=== PATIENT | male | born 1975 | race Caucasian/White ===

== ENCOUNTER 2021-02-09 02:06 | Inpatient (IN) | payer MEDICARE, MEDICAID, SELFPAY ==
[2021-02-09] VITALS (32 sets, daily range): BP systolic 95–178; BP diastolic 41–96; PULSE 39–87; RESP 8–18; TEMP 36–39.9; O2SAT 90–97; BMI 31.1
--- NOTE | ~2021-02-09 | CT_ITS ---
EXAMINATION: CT CHEST WITHOUT CONTRAST CLINICAL INFORMATION: Pneumonia. HIV. COMPARISON: None TECHNIQUE: Multidetector volumetric CT imaging of the chest was done. Axial MIP volume rendering provided. Sagittal and coronal reformatted images were obtained. Evaluation of lung parenchyma is limited due to respiratory motion artifact. This CT examination was performed using dose optimization techniques as appropriate, variously including the following: *Automated exposure control *Adjustment of mA and/or kV according to patient size (this includes techniques or standardized protocols for targeted exams where dose is matched to indication/reason for exam; i.e. extremities or head) *Use of iterative reconstruction technique DLP: 600 mGy-cm FINDINGS: The heart is normal in size. There is no pericardial effusion. Nonaneurysmal thoracic aorta. A few normal-sized mediastinal lymph nodes are noted. No enlarged axillary lymph nodes. Bilateral gynecomastia. Central airways are patent. Filling defects within the right lower lobe segmental bronchi are nonspecific but statistically mucus plugging. There are mild emphysematous changes of the lungs. Dependent patchy opacities are present bilaterally, slightly more prominent on the right. No gross lobar consolidation. No pleural effusion or pneumothorax. No suspicious pulmonary mass. Visualized portion of the upper abdomen demonstrate diffusely decreased liver attenuation suggesting hepatic steatosis. The spleen is enlarged measuring 17 cm in maximum AP dimension. No acute osseous abnormality. CT/CT chest wo con IMPRESSION: 1. Dependent bilateral patchy opacities. Infiltrate is suspected. Clinical correlation recommended. 2. Mild emphysema. 3. Diffusely decreased liver attenuation suggesting hepatic steatosis. Correlation with liver enzymes recommended. 4. Splenomegaly.
--- NOTE | ~2021-02-09 | XR_ITS ---
EXAMINATION: XR ABDOMEN KUB CLINICAL INDICATION: Rectal foreign body questioned COMPARISON: None TECHNIQUE: AP view of the abdomen. FINDINGS: The bowel gas pattern is normal with no evidence of ileus or obstruction. No unusual soft tissue calcifications are noted. The bones are unremarkable. XR/XR KUB IMPRESSION: No radiopaque foreign body or ectopic air grossly. If nonopaque foreign body suspected consider CT.
--- NOTE | ~2021-02-09 | XR_ITS ---
EXAMINATION: XR CHEST CLINICAL INFORMATION: Fever, HIV positive COMPARISON: None TECHNIQUE: Frontal view of the chest was obtained. FINDINGS: Lungs are hypoinflated. No focal consolidation is seen. No evidence of pneumothorax, pleural effusion, or pulmonary edema. No acute osseous findings are seen. XR/XR chest 1V IMPRESSION: No acute cardiopulmonary findings.
--- NOTE | 2021-02-09 02:46 | ED_ITS ---
HPI - Psych General Chief Complaint: Psychiatric Symptoms Stated Complaint: SI,HEROIN USE 3MIN PRIOR TO AMB CALL,FROM PD LOBBY Time Seen by Provider: 02/09/21 02:23 Source: patient Mode of arrival: EMS Limitations: no limitations History of Present Illness HPI Narrative: Patient comes to emergency room complaining of suicidal ideation. Patient states that he recently told his family that he is bisexual, the family was very upset, patient decided to try killing himself by overdosing. Patient walked into a police station, reports taking approximately 10 bags of heroin, and no known quantity of Klonopin. Patient did not get any Narcan in the field or on arrival to the emergency room. Patient is known to be HIV positive, states that he is compliant with his medications. MD complaint: suicidal ideation and feels depressed Related Data Allergies Allergy/AdvReac Type Severity Reaction Status Date / Time latex [LATEX] Allergy Unknown UNKNOWN Verified 02/09/21 03:06 From PERCOCET Allergy Unknown UNKNOWN Uncoded 02/09/21 03:06 Review of Systems Review of Systems: Constitutional : No Weight loss, No Fever, No Chills, No Night Sweats, No Fatigue, No Malaise ENT/Mouth : No Hearing loss, No Ear Pain, No Nasal Congestion, No Sinus Pain, No Hoarseness, No sore throat, No Rhinorrhea, No Swallowing Difficulty Eyes: No Eye Pain, No Swelling, No Redness, No Foreign Body, No Discharge, No Vision Changes Cardiovascular : No Chest Pain, No SOB, No Dyspnea on Exertion, No Orthopnea, No Edema, No Palpitations Respiratory : Mild Cough, No Sputum, No Wheezing, No Smoke Exposure, No Dyspnea, runny nose Gastrointestinal : No Nausea, No Vomiting, No Diarrhea, No Constipation, No abdominal Pain, No Hematochezia, No Melena Genitourinary : no irregular bleeding, patient complaining of, No Urinary Frequency, No Hematuria, No Urinary Incontinence, No Urgency, No Flank Pain, No Urinary Flow Changes, No Hesitancy Musculoskeletal : No joint pain, No Myalgias, No Joint Swelling Skin : No Skin Lesions, No rash Neuro : No Weakness, No Numbness, No Paresthesias, No Loss of Consciousness, No Dizziness, No Headache Psych : Complaining of suicidal attempt by overdosing, struggling with substance abuse Heme/Lymph: No Bruising, No Bleeding,No Lymphadenopathy Endocrine : No Polyuria, No Polydipsia, No Temperature Intolerance [facility] Past Medical History Medical History (Updated 02/09/21 @ 03:07 by Susan Dukes MD) HIV (human immunodeficiency virus infection) Substance abuse Physical Exam Vital Signs: Vital Signs: Last Vital Signs Temp 103.8 F H 02/09/21 03:07 Pulse 87 02/09/21 02:24 Resp 18 02/09/21 02:24 BP 141/74 H 02/09/21 02:24 Pulse Ox 92 02/09/21 02:24 Body Mass Index 31.1 Appearance: Alert. Oriented X3. No acute distress. Somnolent but easily arousable Eyes: Pupils equal, round and reactive to light. ENT: Pharynx normal. Neck: Normal inspection. Neck supple. No lymph nodes noted. No crepitus CVS: Normal heart rate and rhythm. Pulses normal. Normal S1 and S2 Respiratory: No respiratory distress. Breath sounds normal. No Wheezing. No rales Abdomen: Soft and nontender. No rigidity. No distention. good BS x4 Skin: Very warm to touch, dry skin Extremities: No lower extremity edema. No lower extremity edema. No Lacerations. No Rash Neuro: Oriented X 3. No motor deficit. No sensory deficit. Moving all extermities. No slurred speech. Course Course Course Narrative: Of the patient's labs are currently pending. Patient has a rectal temperature of 103.8 degrees. At this time, source of infection is unclear. Patient is already receiving fluids. Sign-out given to Dr. Goode [facility] - Psych Lab Data Result diagrams: 02/09/21 03:11 02/09/21 03:11 ECG Data Attestation: I personally reviewed and interpreted this ECG as follows: (Sinus rhythm, heart rate 76, necessitating the patient had the patient come into inversion, QTC 443)
--- NOTE | 2021-02-09 02:59 | ECG_ITS ---
Test Reason : OD Blood Pressure : / mmHG Vent. Rate : 076 BPM Atrial Rate : 076 BPM P-R Int : 146 ms QRS Dur : 090 ms QT Int : 394 ms P-R-T Axes : 036 008 044 degrees QTc Int : 443 ms Normal sinus rhythm Minimal voltage criteria for LVH, may be normal variant Nonspecific T wave abnormality Abnormal ECG When compared with ECG of 11-APR-2002 13:46, T wave inversion no longer evident in Inferior leads Referred By: Susan Dukes Electronically Signed By:Harrison Crowell
[2021-02-09] MEDS: Acetaminophen 325 MG TABLET 650 MG PO (03:08)
[2021-02-09] MEDS: Ibuprofen 600 MG TABLET PO (03:08)
[2021-02-09] MEDS: 0.9 % Sodium Chloride 1,000 ML 999 ML IVCONT ×2 (03:26)
[2021-02-09 03:32] LABS: Hemoglobin 13.4 g/dl (14.0-18.0); Imm Gran Abs Auto 0.03 X10*3/uL (0.00-0.03); Imm Gran Pct Auto 0.4 % (0.0-0.4); Mean Corpuscular Volume 96.5 fL (80-98); Monocytes Percent Auto 11.1 % (2-11); PLT CLUMP 1; SCAN SMEAR FLAG 1
[2021-02-09 03:34] LABS: Basophils Absolute Auto 0.1 X10*3/uL (0.0-0.2); Basophils Percent Auto 0.9 % (0-2); Eosinophils Absolute Auto 0.1 X10*3/uL (0.0-0.4); Eosinophils Percent Auto 1.7 % (0-4); Hematocrit 39.1 % (42-52); Lymphocytes Absolute Auto 0.9 X10*3/uL (1.2-4.9); Lymphocytes Percent Auto 11.4 % (20-40); Mean Corpuscular HGB Conc 34.3 g/dl (31.0-36.0); Mean Corpuscular Hemoglobin 33.1 pg (27.0-33.0); Mean Platelet Volume 9.4 fL (9.4-12.4); Monocytes Absolute Auto 0.9 X10*3/uL (0.1-1.2); Neutrophils Absolute Auto 6.1 X10*3/uL (2.0-8.3); Neutrophils Percent Auto 74.5 % (45-73); Platelet Count 122 X10*3/uL (160-400); Red Blood Count 4.05 X10*6/uL (4.60-5.80); Red Cell Distribution Width 12.8 % (11.0-16.0); White Blood Count 8.1 X10*3/uL (4.8-10.8)
[2021-02-09 03:39] LABS: MANUAL DIFF FLAG NO
[2021-02-09 03:51] LABS: Lactic Acid 0.5 mmol/L (0.5-2.0)
[2021-02-09 03:53] LABS: Ethanol < 10 mg/dL
[2021-02-09 03:54] LABS: Delay - Chemistry DELAY
[2021-02-09 04:00] LABS: Troponin-I High Sensitivity 5.8 ng/L (<3.5-35.0)
[2021-02-09 04:03] LABS: Alanine Aminotransferase 16 U/L (0-40); Albumin Level 4.2 g/dL (3.5-5.0); Alkaline Phosphatase 110 U/L (39-117); Aspartate Amino Transferase 20 U/L (5-37); Bilirubin Direct 0.6 mg/dL (0.0-0.5); Bilirubin Total 1.8 mg/dL (0.0-1.0); Blood Urea Nitrogen 18 mg/dL (9-16); Calcium 9.1 mg/dL (8.4-10.2); Carbon Dioxide 22 mmol/L (22-29); Creatinine Clr Calc Pharmacy 87.8; Estimated Glomerular Filt Rate > 60; Glucose Random 91 mg/dL (60-115); Total Protein 7.2 g/dL (6.5-8.0)
[2021-02-09 04:15] LABS: Influenza A PCR NEGATIVE (Negative); Influenza B PCR NEGATIVE (Negative); Resp Syncy Virus RNA Qual PCR NEGATIVE (Negative); SARS COV2 PCR INHOUSE NEGATIVE (Negative)
[2021-02-09 04:18] LABS: Anion Gap 15 (12-20); Chloride 103 mmol/L (96-108); Sodium 136 mmol/L (135-145)
[2021-02-09 04:47] LABS: Acetaminophen LAB < 1 mcg/mL (<30); Salicylate < 5.0 mg/dL (15-30)
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
[2021-02-09] MEDS: LORazepam 2 MG/ML VIAL IM (07:34)
[2021-02-09] MEDS: Haloperidol Lactate 5 MG/ML VIAL 10 MG IM (07:34)
[2021-02-09] MEDS: cefTRIAXone sodium 2 GM in 0.9 % Sodium Chloride 50 ML IV (07:34)
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
[2021-02-09] MEDS: 0.9 % Sodium Chloride 2,052 ML 2052 ML IVCONT (08:23)
[2021-02-09 09:20] LABS: C Reactive Protein 3.38 mg/dL (< or = 0.50); Lactate Dehydrogenase 229 U/L (118-273)
--- NOTE | 2021-02-09 09:29 | PC.NURSE ---
left arm removed from restraint. patient remains sleeping but wakes easily to voice. 1:[address]
[2021-02-09 09:44] LABS: Procalcitonin 0.27 ng/mL
--- NOTE | 2021-02-09 10:01 | PC.NURSE ---
restraints removed form all extremities. MD is aware pulse has gone as low as 35. patient wakes to touch.
[2021-02-09 11:10] LABS: Adenovirus PCR Not Detected (Not Detect.); Bordetella parapertussis PCR Not Detected (Not Detect.); Bordetella pertussis PCR Not Detected (Not Detect.); Chlamydia pneumoniae PCR Not Detected (Not Detect.); Coronavirus 229E PCR Not Detected (Not Detect.); Coronavirus HKU1 PCR Not Detected (Not Detect.); Coronavirus NL63 PCR Not Detected (Not Detect.); Coronavirus OC43 PCR Not Detected (Not Detect.); Human metapneumovirus PCR Not Detected (Not Detect.); Influenza A PCR Not Detected (Not Detect.); Influenza B PCR Not Detected (Not Detect.); Mycoplasma pneumoniae PCR Not Detected (Not Detect.); Parainfluenza 1 PCR Not Detected (Not Detect.); Parainfluenza 2 PCR Not Detected (Not Detect.); Parainfluenza 3 PCR Not Detected (Not Detect.); Parainfluenza 4 PCR Not Detected (Not Detect.); RSV PCR Not Detected (Not Detect.); Rhino/Enterovirus PCR Not Detected (Not Detect.); SARS-CoV-2 PCR Not Detected (Not Detect.)
[2021-02-09 11:30] LABS: Glucose Urine UA NEG (NEG); Leukocyte Esterase Urine NEG (NEG); Nitrite Urine NEG (NEG); PH 6.5 (5.0-8.0); Specific Gravity - Urine >= 1.030 (1.005-1.025); Urine Blood NEG (NEG); Urine Ketones NEG (NEG); Urine Protein NEG (NEG-TRACE)
[2021-02-09 11:32] LABS: Appearance Urine CLEAR; Color Urine YELLOW
[2021-02-09 11:35] LABS: Amphetamine Screen Urine Not Detected (Not Detect); Barbiturates, Urine Not Detected (Not Detect); Benzodiazepines Screen Urine POSITIVE (Not Detect); Cannabinoid Screen Urine Not Detected (Not Detect); Cocaine Screen Urine POSITIVE (Not Detect); Opiate Screen Urine POSITIVE (Not Detect); Phencyclidine Screen Urine Not Detected (Not Detect)
--- NOTE | 2021-02-09 11:55 | PC.NURSE ---
patient pharmacy is closed today, unable to confirm home meds at this time. did confirm methadone dose with clinic.
[2021-02-09] MEDS: Enoxaparin Sodium 40 MG/0.4 ML SYRINGE SUBCUT (12:18)
[2021-02-09] MEDS: methylPREDNISolone Sod Succ 40 MG/ML VIAL IVPUSH (12:18)
[2021-02-09] MEDS: Piperacillin Sodium/Tazobactam 4.5 GM in 0.9 % Sodium Chloride 100 ML IV ×3 (12:19→23:59)
[2021-02-09] MEDS: vancomycin HCL 1,000 MG in 0.9 % Sodium Chloride 250 ML 270 MG IV (13:47)
--- NOTE | 2021-02-09 15:10 | PC.NURSE ---
[place] Suicide risk screening complete. pt arouses to voice commands. pt denies any thoughts of self harm or suicide at this time. he denies any thoughts or plan of harming himself or anyone else.
--- NOTE | 2021-02-09 15:20 | PC.NURSE ---
pt heart rate has stayed in the 30s-40s all day while asleep. when pt awake HR does go up to low 60's. Pt has walked to the bathroom with staff assist. Hospitalist, Dr. Gallardo, made aware .
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
[2021-02-09] MEDS: Naloxone HCl 0.4 MG/ML VIAL 0.1 MG IVPUSH ×2 (16:16→17:00)
--- NOTE | 2021-02-09 16:21 | PC.NURSE ---
patient has been sleeping most of day. hr low. o2 remains low. rr 8-12. narcan IV PRN given with positive effect. pt awake an talking with staff at this time. hr remains in 40's.
[2021-02-09] MEDS: Nicotine 14 MG PATCH.TD24 TRANSDERMA (16:25)
[2021-02-09] MEDS: 0.9 % Sodium Chloride Flush 3 ML SYRINGE IVFLUSH ×2 (16:26→23:59)
[2021-02-09 22:24] LABS: Glucose Urine UA NEG (NEG); Leukocyte Esterase Urine NEG (NEG); Nitrite Urine NEG (NEG); Specific Gravity - Urine <= 1.005 (1.005-1.025); Urine Blood NEG (NEG); Urine Ketones NEG (NEG); Urine Protein NEG (NEG-TRACE)
[2021-02-09 22:28] LABS: Appearance Urine CLEAR; Color Urine YELLOW
--- NOTE | 2021-02-09 23:52 | PC.NURSE ---
Patient complains of inability to urinate. States this has been going on for several weeks and he has an outpatient Urology appointment scheduled for next week. Patient was bladder scanned for over 1000mls. Dr Kincaid was notified, and an order for a terry and urine specimen was placed. Terry placed, drained 1000mls. Patient is laying comfortably in bed. States he feels much better after terry placement. High fall risk protocol in place.
[2021-02-10] VITALS: BP 145/82; PULSE 45; RESP 16; TEMP 36.1; O2SAT 95
[2021-02-10] MEDS: vancomycin HCL 1,000 MG in 0.9 % Sodium Chloride 250 ML 270 MG IV ×2 (00:31→12:21)
[2021-02-10 04:00] VITALS: BP 145/80; PULSE 52; RESP 16; TEMP 36.7; O2SAT 95
[2021-02-10 04:51] LABS: Basophils Percent Auto 0.4 % (0-2); Eosinophils Percent Auto 0.4 % (0-4); Mean Corpuscular HGB Conc 34.7 g/dl (31.0-36.0); Monocytes Absolute Auto 0.3 X10*3/uL (0.1-1.2); PLT CLUMP 1; SCAN SMEAR FLAG 1
[2021-02-10 04:53] LABS: Hematocrit 40.1 % (42-52); Hemoglobin 13.9 g/dl (14.0-18.0); Imm Gran Abs Auto 0.03 X10*3/uL (0.00-0.03); Imm Gran Pct Auto 0.5 % (0.0-0.4); Lymphocytes Absolute Auto 0.9 X10*3/uL (1.2-4.9); Lymphocytes Percent Auto 15.1 % (20-40); MANUAL DIFF FLAG NO; Mean Corpuscular Hemoglobin 33.5 pg (27.0-33.0); Mean Corpuscular Volume 96.6 fL (80-98); Monocytes Percent Auto 4.4 % (2-11); Neutrophils Absolute Auto 4.5 X10*3/uL (2.0-8.3); Neutrophils Percent Auto 79.2 % (45-73); Platelet Count 116 X10*3/uL (160-400); Red Blood Count 4.15 X10*6/uL (4.60-5.80); Red Cell Distribution Width 12.6 % (11.0-16.0); White Blood Count 5.7 X10*3/uL (4.8-10.8)
[2021-02-10 05:17] LABS: Alanine Aminotransferase 25 U/L (0-40); Albumin Level 3.7 g/dL (3.5-5.0); Alkaline Phosphatase 102 U/L (39-117); Anion Gap 12 (12-20); Aspartate Amino Transferase 30 U/L (5-37); Bilirubin Total 0.9 mg/dL (0.0-1.0); Blood Urea Nitrogen 15 mg/dL (9-16); Carbon Dioxide 21 mmol/L (22-29); Chloride 110 mmol/L (96-108); Creatinine Clr Calc Pharmacy 120.3; Estimated Glomerular Filt Rate > 60; Glucose Random 162 mg/dL (60-115); Potassium 3.8 mmol/L (3.3-5.1); Sodium 139 mmol/L (135-145); Total Protein 6.7 g/dL (6.5-8.0)
[2021-02-10] MEDS: Piperacillin Sodium/Tazobactam 4.5 GM in 0.9 % Sodium Chloride 100 ML IV ×2 (05:56→11:41)
[2021-02-10 07:21] LABS: MRSA Nasal PCR NEGATIVE (Negative); SA Nasal PCR NEGATIVE (Negative)
[2021-02-10] MEDS: methylPREDNISolone Sod Succ 40 MG/ML VIAL IVPUSH (07:32)
[2021-02-10 08:00] VITALS: BP 132/65; PULSE 53; RESP 16; TEMP 36.7; O2SAT 94
[2021-02-10 11:29] VITALS: BP 128/65; PULSE 50; RESP 17; TEMP 37.1; O2SAT 96
[2021-02-10] MEDS: Enoxaparin Sodium 40 MG/0.4 ML SYRINGE SUBCUT (11:41)
--- NOTE | 2021-02-10 12:59 | MHC.CM.PN ---
met with pt who has a sitter pt reports that he goes to [facility] for his methadone and receives counseling thru [facility] pt will need assist with transportaion when dcd
--- NOTE | 2021-02-10 13:22 | MHC.RECOVRN ---
45 year old male presented to [facility] ED via EMS on 02/09 due to pt reports SI walking into the police station. 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 pt drowsy but alert per hand trucker. Upon evaluation, pt was found to be febrile and hypoxic. Pt subsequently admitted medically for treatment of pneumonia.? T/w met with pt in 459 after Addiction?Medicine consult was placed. Pt reports prior to overdose attempt, last use of heroin was 6 months ago. Pt is currently on methadone through [facility], 60 mg daily x 3 years. Pt reports this as very beneficial in his recovery. Pt also reports attending groups at [employer] [facility] as well as other support groups. Pt does not find AA/NA meetings helpful. In addition to groups, pt has services through [facility] and speaks to his therapist weekly. Pt states Just staying away from people, places, and things is what works for me. ? Recovery resources were discussed, including recovery coaches. Pt declines referrals at this time. Pt is confident in the recovery supports in place and ensures if questions or concerns arise, pt will reach out to t/w. Contact information given to pt.? Case discussed with RN and Annette Pineda APRN. T/w available as needed if necessary.?
--- NOTE | 2021-02-10 14:23 | HO.PM.IMPN ---
Subjective Subjective Date of Service: 02/10/21 Interval History: denies acute complaints admits to have ch cough with phlegm ,asking for methadone , refusing all medications, unless gets methadone. GEN no fever, no chills [employer]INE[employer] no carr[place],no dizziness cvs no cp ,no sob GI no nausea, no vomiting. Physical Exam Vital Signs: Vital Signs: Last Vital Signs Temp 98.7 F 02/10/21 11:29 Pulse 50 02/10/21 11:29 Resp 17 02/10/21 11:29 BP 128/65 02/10/21 11:29 Pulse Ox 96 02/10/21 11:29 Body Mass Index 31.1 General resting comfortably , no acute distress. Neck supple no JVD. CVS regular rate rhythm, Respiratory lungs occassional wheezing, no respiratory distress Gastrointestinal abdomen soft, nontender, bowel sounds audible, no guarding , no rigidity. Extremities no edema. Neuro nonfocal , speech clear. Skin no rash Objective Data Current Medications Generic Name Dose Route Start Last Admin Trade Name Freq PRN Reason Stop Dose Admin Acetaminophen 650 mg 02/09/21 11:34 Acetaminophen 325 Mg Tablet PO Q6H PRN Pain, Mild (Pain Scale 1-3) Albuterol/Ipratropium 3 ml 02/09/21 11:42 Albuterol/Iprat 2.5/0.5mg 3 Ml Ampul.Neb INHALE Q4H PRN Shortness of Breath/Wheezing Bictegravir/Emtricitabine/Tenofovir 1 tab 02/09/21 11:40 02/10/21 07:32 Bictegrav/Emtricit/Tenofov Ala 1 Tab Tablet PO 1 tab DAILY MARYLU Administration Enoxaparin Sodium 40 mg 02/09/21 12:00 02/10/21 11:41 Enoxaparin Sodium 40 Mg/0.4 Ml Syringe SUBCUT 40 mg Q24H MARYLU Administration Piperacillin Sod/Tazobactam 100 mls @ 200 mls/hr 02/09/21 12:00 02/10/21 12:19 Sod 4.5 gm/ Sodium Chloride IV Infused Q6H MARLYU Infusion Vancomycin HCl 1,000 mg/ 270 mls @ 270 mls/hr 02/09/21 12:00 02/10/21 13:30 Sodium Chloride IV Infused Q12H MARYLU Infusion Methadone HCl 60 mg 02/10/21 12:00 02/10/21 11:40 Methadone Hcl 1 Mg/0.1 Ml Oral.Conc PO 60 mg DAILY MARYLU Administration Methylprednisolone Sodium Succinate 40 mg 02/09/21 11:45 02/10/21 07:32 Methylprednisolone Sod Succ 40 Mg/Ml Vial IVPUSH 02/13/21 09:01 40 mg DAILY MARYLU Administration Naloxone HCl 0.1 mg 02/09/21 15:59 02/09/21 17:00 Naloxone Hcl 0.4 Mg/Ml Vial IVPUSH 0.1 mg Q2M PRN Administration Respiratory Rate < 10 Nicotine 14 mg 02/09/21 16:00 02/10/21 07:33 Nicotine 14 Mg Patch.Td24 TRANSDERMA Not Given DAILY MARYLU Ondansetron HCl 4 mg 02/09/21 11:34 Ondansetron Hcl 4 Mg/2 Ml Vial IVPUSH Q8H PRN Nausea and Vomiting Pharmacy Consult 1 each 02/09/21 11:36 Consult Rx Vancomycin Dosing MISCELLANE DAILY PRN Consult order Sodium Chloride 3 ml 02/09/21 16:00 02/10/21 07:36 0.9 % Sodium Chloride Flush 3 Ml Syringe IVFLUSH Not Given QSHIFT [facility] Labs CBC & Chem 7: 02/10/21 04:18 02/10/21 04:18 Microbiology Microbiology Results: Microbiology 02/09/21 03:11 Blood - Venous Blood Culture - Preliminary No growth after 24 hours. 02/09/21 03:11 Blood - Venous Blood Culture - Preliminary No growth after 24 hours. Assessment and Plan (1) Overdose: Status: Acute (2) Cocaine abuse: Status: Acute (3) Tobacco abuse: Status: Acute (4) Methadone maintenance therapy patient: Status: Acute (5) Opioid use disorder: Status: Acute (6) History of HIV or AIDS: Status: Acute (7) History of cryptococcal meningitis: Status: Acute (8) Suicide attempt: Status: Acute (9) HIV (human immunodeficiency virus infection): Status: Acute (10) Fever: Status: Acute (11) Pneumonia: Status: Acute Assessment and Plan: 45yo M with HIV on ART [hx AIDS + cryptococcal meningitis, last CD4 238 01/21/21, last viral load 79 01/21/21], HCV [cured], mild cirrhosis, COPD/emphysema, and abuse of heroin, cocaine, and tobacco. He presented after attempted suicide by heroin overdose and was noted to be febrile and hypoxic [though not, strictly speaking, septic] from pneumonia. # pneumonia - fever resolved, normal wbc,resp viral panel neg.,BC x2 neg. pneumococcal and Legionella UAgs pending, case discussed with ID will dc vanco + pip/lisa And place patient on po doxycycline for 1 week for possible pneumonia. doubt PCP at this CD4 count , with relatively well-suppressed viral load. # acute hypoxic respiratory failure - resolved now on RA 96% likely due to opiate overdose # mild COPD exacerbation due to pneumonia - on methylprednisolone 40 mg/d will change to by mouth prednisone, continue as needed duoneb updraft. # HIV - continue Biktarvy # heroin overdose - naloxone prn RR <10, resume methadone await Addiction + CARE team consults. KUB showed no retained rectal drug packets # cocaine abuse - Addiction + CARE team consults pending. # tobacco abuse - NRT # suicide attempt - sitter, obtain N consult since patient medically cleared. # VTE ppx - LMWH # code - FULL
[2021-02-10 15:08] VITALS: BP 126/62; PULSE 48; RESP 16; TEMP 36.9; O2SAT 97
[2021-02-10] MEDS: 0.9 % Sodium Chloride Flush 3 ML SYRINGE IVFLUSH ×2 (16:21→23:35)
--- NOTE | 2021-02-10 16:36 | P.CNID_ITS ---
History of Present Illness Data of Consult Service Date: 02/10/21 Requesting physician: Linda Rea Primary Care Provider: Namrata Prieto MD [facility] Reason for consult: HIV?pneumonia He presents with depression and suicidality after coming out as bisexual to family He has no cough or shortness of breath He is not on oxygen He has well controlled HIV with last CD4 count 238 with viral load 79. He has opioid use disorder Temperature 103.8 Respiratory panel normal Review of Systems Review of Systems: Yes all other systems are reviewed and are negative PMFSH Past Medical History Medical History Cocaine abuse 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 History of HIV or AIDS HIV (human immunodeficiency virus infection) Methadone maintenance therapy patient Opioid use disorder Substance abuse Tobacco abuse Family History Family History Other CAD (coronary artery disease) CHF (congestive heart failure) Family history: reviewed and not pertinent Social History Social History Household Members: Family Housing: Apartment Do you presently have visiting nurse or other home services: No Patient Tobacco Use Status: Current everyday Tobacco user Tobacco use type: Cigarette Cigarettes Per Day: 20 Smoked in Last 30 Days: Yes Patient Interested in Nicotine Replacement: Yes Patient Given Instructions on How to Stop Smoking: Yes Date Education Initiated: 02/09/21 Substance Use Type: Heroin Substance Use Frequency: Monthly Last Used Substance: Days (ago) Currently Displaying Signs/Symptoms of Drug Intoxication Withdrawal: No Any prior treatment program specific to substance use: Yes (on methadone) Have you been hit, kicked, punched, or otherwise hurt by someone within the past year? If so, by whom?: No Do you feel safe in your current relationship?: Yes Is there a partner from a previous relationship who is making you feel unsafe now?: No Are you made to feel afraid or neglected: No Advance Directives: No Advance Directives Information Provided: No Do you have thoughts of harming others: None Do you have a plan to hurt others: No Plan Recently lost weight without trying: No Nutrition Risks: No Nutritional Risk service: No Meds Allergies Allergy/AdvReac Type Severity Reaction Status Date / Time latex [LATEX] Allergy Unknown UNKNOWN Verified 02/09/21 03:06 From PERCOCET Allergy Unknown UNKNOWN Uncoded 02/09/21 03:06 Active Medications: Current Medications Generic Name Dose Route Start Last Admin Trade Name Freq PRN Reason Stop Dose Admin Acetaminophen 650 mg 02/09/21 11:34 Acetaminophen 325 Mg Tablet PO Q6H PRN Pain, Mild (Pain Scale 1-3) Albuterol/Ipratropium 3 ml 02/09/21 11:42 Albuterol/Iprat 2.5/0.5mg 3 Ml Ampul.Neb INHALE Q4H PRN Shortness of Breath/Wheezing Bictegravir/Emtricitabine/Tenofovir 1 tab 02/09/21 11:40 02/10/21 07:32 Bictegrav/Emtricit/Tenofov Ala 1 Tab Tablet PO 1 tab DAILY MARYLU Administration Doxycycline Hyclate 100 mg 02/10/21 15:00 02/10/21 16:21 Doxycycline Hyclate 100 Mg Tablet PO 100 mg Q12H MARYLU Administration Enoxaparin Sodium 40 mg 02/09/21 12:00 02/10/21 11:41 Enoxaparin Sodium 40 Mg/0.4 Ml Syringe SUBCUT 40 mg Q24H MARYLU Administration Methadone HCl 60 mg 02/10/21 12:00 02/10/21 11:40 Methadone Hcl 1 Mg/0.1 Ml Oral.Conc PO 60 mg DAILY MARYLU Administration Naloxone HCl 0.1 mg 02/09/21 15:59 02/09/21 17:00 Naloxone Hcl 0.4 Mg/Ml Vial IVPUSH 0.1 mg Q2M PRN Administration Respiratory Rate < 10 Nicotine 14 mg 02/09/21 16:00 02/10/21 07:33 Nicotine 14 Mg Patch.Td24 TRANSDERMA Not Given DAILY MARYLU Ondansetron HCl 4 mg 02/09/21 11:34 Ondansetron Hcl 4 Mg/2 Ml Vial IVPUSH Q8H PRN Nausea and Vomiting Pharmacy Consult 1 each 02/09/21 11:36 Consult Rx Vancomycin Dosing MISCELLANE DAILY PRN Consult order Prednisone 20 mg 02/11/21 09:00 Prednisone 20 Mg Tablet PO DAILY MARYLU Sodium Chloride 3 ml 02/09/21 16:00 02/10/21 16:21 0.9 % Sodium Chloride Flush 3 Ml Syringe IVFLUSH 3 ml QSHIFT MARYLU Administration Home Medications Medication Instructions Recorded Confirmed Last Taken Type methadone 65 mg PO DAILY 02/09/21 02/09/21 02/08/21 06:30 History Physical Exam Vital Signs: Vital Signs: Last Vital Signs Temp 98.5 F 02/10/21 15:08 Pulse 48 L 02/10/21 15:08 Resp 16 02/10/21 15:08 BP 126/62 02/10/21 15:08 Pulse Ox 97 02/10/21 15:08 Body Mass Index 31.1 Const: General: cooperative HENMT: Head: Yes normal to inspection Mouth: Normal oral and palatal mucosa present Resp: Effort & Inspection: normal respiratory effort Cardio: Rate: regular rate Rhythm: regular rhythm GI: Palpation (GI): Soft to palpation and nontender Skin: General skin exam: no rashes or lesions noted Results Labs CBC & Chem 7: 02/10/21 04:18 02/10/21 04:18 Labs: Short CBC 02/10/21 Range/Units 04:18 WBC 5.7 (4.8-10.8) X10*3/uL Hgb 13.9 L (14.0-18.0) g/dl Hct 40.1 L (42-52) % Plt Count 116 L (160-400) X10*3/uL BMP 02/10/21 04:18 Sodium 139 Potassium 3.8 Chloride 110 H Carbon Dioxide 21 L BUN 15 Creatinine 0.84 Calcium 9.0 Liver Function 02/10/21 Range/Units 04:18 Total Bilirubin 0.9 (0.0-1.0) mg/dL AST 30 D (5-37) U/L ALT 25 (0-40) U/L Alkaline Phosphatase 102 (39-117) U/L Albumin 3.7 (3.5-5.0) g/dL Urine 02/09/21 Range/Units 22:02 Urine Color YELLOW Urine Appearance CLEAR Urine pH 6.0 (5.0-8.0) Ur Specific Morton <= 1.005 (1.005-1.025) Urine Protein NEG (NEG-TRACE) MG/DL Urine Glucose (UA) NEG (NEG) MG/DL Microbiology Microbiology Results: Microbiology 02/09/21 03:11 Blood - Venous Blood Culture - Preliminary No growth after 24 hours. 02/09/21 03:11 Blood - Venous Blood Culture - Preliminary No growth after 24 hours. Assessment and Plan (1) Fever: Status: Acute Fever may be due to substance use and bronchitis Cotton lung may be concern,basilar markings on CT,CXR negative,no acute lobar infiltrate He has preserved immune function with CD4 unremarkable I do not see any more fever at this time There are no signs of bacterial or atypical pneumonia by symptoms,no hypoxia,no WBC elevation Suggest Stop IV antibiotics Would give po Doxycycline for a week Continue Biktarvy
[2021-02-10] MEDS: Nicotine 14 MG PATCH.TD24 TRANSDERMA (17:38)
[2021-02-10 18:47] VITALS: BP 146/81; PULSE 51; RESP 18; TEMP 37.2; O2SAT 95
[2021-02-11] VITALS: BP 169/80; PULSE 39; RESP 18; TEMP 36.3; O2SAT 95
[2021-02-11] MEDS: hydrOXYzine HCL 25 MG TABLET PO (00:08)
[2021-02-11 03:56] VITALS: BP 155/92; PULSE 50; RESP 18; TEMP 36.4; O2SAT 92
[2021-02-11 07:22] VITALS: BP 108/53; PULSE 49; RESP 17; TEMP 36.6; O2SAT 96
[2021-02-11] MEDS: predniSONE 20 MG TABLET PO (08:16)
[2021-02-11] MEDS: Nicotine 14 MG PATCH.TD24 TRANSDERMA (08:17)
[2021-02-11] MEDS: 0.9 % Sodium Chloride Flush 3 ML SYRINGE IVFLUSH (08:20)
[2021-02-11] MEDS: Enoxaparin Sodium 40 MG/0.4 ML SYRINGE SUBCUT (11:02)
[2021-02-11 11:17] VITALS: BP 146/74; PULSE 43; RESP 18; TEMP 35.9; O2SAT 97
--- NOTE | 2021-02-11 11:28 | MHC.CM.PN ---
PER ROUNDS discussion, A BHN Consult has been ordered (SI /Question of need for Inpatient Psych facility)VS Home/resume [facility] services and Methadone. CM will continue to follow for dc planning
--- NOTE | 2021-02-11 13:40 | MHC.CARE ---
Patient evaluated by CARE Team, he has denied making a suicide attempt, is connected with outpatient providers and was doing well in recovery prior to this weekend. Written assessment to follow. Providers updated.
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
--- NOTE | 2021-02-11 13:50 | MHC.CM.PN ---
Patient has been medically cleared for dc to home today, no services. Last IMM addressed yesterday.
--- NOTE | 2021-02-11 14:03 | MHC.CM.PN ---
Patient has been cleared by the Care Team to go home (SI). Patient will dc to home today at 3PM, via [employer] van. Patient is aware of dc plan and eager to leave.
[2021-02-13 00:12] LABS: Strep Pneumo Ag urine Not Detected (Not Detected)
[2021-02-14 09:27] LABS: Legionella Ag Urine Not Detected (Not Detected)
== END 2021-02-11 14:44 | disposition home or self-care (01) | DRG 917 ==
LOC: HO.ED 06:40 → HO.EDOVER 11:44 → HO.S3 18:49 → HO.IMC 19:54
PROVIDERS: Emergency Medicine; Internal Medicine; Student in an Organized Health Care Education/Training Program; Admitting Provider Family Medicine; Emergency Provider Emergency Medicine Emergency Medical Services; PCP Internal Medicine; Visit Provider Hospitalist
DX: T40.1X2A Poisoning by heroin, intentional self-harm, initial encounter (principal); J96.01 Acute respiratory failure with hypoxia; J18.9 Pneumonia, unspecified organism; F11.20 Opioid dependence, uncomplicated; R45.851 Suicidal ideations; J44.0 Chronic obstructive pulmonary disease with (acute) lower respiratory infection; J44.1 Chronic obstructive pulmonary disease with (acute) exacerbation; B20 Human immunodeficiency virus [HIV] disease; Z86.19 Personal history of other infectious and parasitic diseases; Y92.9 Unspecified place or not applicable; F14.10 Cocaine abuse, uncomplicated; K74.60 Unspecified cirrhosis of liver; F17.210 Nicotine dependence, cigarettes, uncomplicated; Z71.6 Tobacco abuse counseling; Z20.822 Contact with and (suspected) exposure to COVID-19; Z88.5 Allergy status to narcotic agent; Z79.899 Other long term (current) drug therapy
CPT/HCPCS: 0241U; 36415; 71045; 71250; 74018; 80048; 80053; 80076; 80143; 80179; 80202; 80307; 81003; 82077; 83605; 83615; 84145; 84484; 85025; 86140; 87040; 87449; 87633; 87640; 87641; 87899; 93005; 99285; C1758; J0696; J1650; J2060; J2543; J2920; J3370

== ENCOUNTER 2023-07-12 15:40 | Emergency (ER) | payer OTHER, SELFPAY ==
--- NOTE | 2023-07-12 15:48 | ED_ITS ---
HPI - General Adult General Chief complaint: General Medical Stated complaint: dizziness,feeling strange Time Seen by Provider: 07/12/23 19:56 Related Data Home Medications Medication Instructions Recorded Confirmed methadone 10 mg/5 mL oral solution 65 mg PO DAILY 02/09/21 02/09/21 amlodipine 10 mg tablet 1 tab PO DAILY 02/11/21 02/11/21 atovaquone 750 mg/5 mL oral 1,500 mg PO DAILY 02/11/21 02/11/21 suspension bictegravir 50 mg-emtricitabine 1 tab PO DAILY 02/11/21 02/11/21 200 mg-tenofovir alafenam 25 mg tablet (Biktarvy) docusate sodium 100 mg capsule 1 cap PO BID PRN constipation 02/11/21 02/11/21 hydrocortisone 0.5 % topical cream 1 appl topical BID PRN eczema 02/11/21 02/11/21 ketoconazole 2 % topical cream 1 appl topical BID 02/11/21 02/11/21 lithium carbonate 300 mg capsule 1 cap PO BID 02/11/21 02/11/21 lorazepam 0.5 mg tablet 1 tab PO BID 02/11/21 02/11/21 multivitamin (Daily-Yue tablet) 1 tab PO DAILY 02/11/21 02/11/21 pantoprazole 40 mg tablet,delayed 1 tab PO DAILY 02/11/21 02/11/21 release sildenafil 100 mg tablet 1 tab PO DAILY PRN Sexual Activity 02/11/21 02/11/21 Previous Rx's Medication Instructions Recorded doxycycline hyclate 100 mg tablet 100 mg PO Q12H #6 tabs 02/11/21 nicotine 14 mg/24 hr daily 14 mg transdermal DAILY #28 ea 02/11/21 transdermal patch Allergies Allergy/AdvReac Type Severity Reaction Status Date / Time latex [LATEX] Allergy Unknown UNKNOWN Verified 02/09/21 03:06 From PERCOCET Allergy Unknown UNKNOWN Uncoded 02/09/21 03:06 [facility] Past Medical History Medical History Cocaine abuse 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 History of HIV or AIDS HIV (human immunodeficiency virus infection) Methadone maintenance therapy patient Opioid use disorder Substance abuse Tobacco abuse Family History Family History Other CAD (coronary artery disease) CHF (congestive heart failure) Social History Social History Household Members: Family Housing: Apartment Do you presently have visiting nurse or other home services: No Patient Tobacco Use Status: Current everyday Tobacco user Tobacco use type: Cigarette Cigarettes Per Day: 20 Smoked in Last 30 Days: Yes Use of substances other than those prescribed or required for medical reasons: No Substance Use Type: Heroin Advance Directives: No Advance Directives Information Provided: No service: No Physical Exam ED Vital Signs: Vital Signs - 24 hr 07/12/23 15:49 07/12/23 19:40 Temperature 97.5 F Pulse Rate 77 78 Respiratory Rate 16 16 Blood Pressure 126/67 133/86 Pulse Oximetry 97 97 Oxygen Delivery Method Room Air Room Air BMI result Body Mass Index 17.2 Course Course Course Narrative: RMMichelet- 48 year old male presents for evaluation from his program due to lethargy. He reports staff felt that he was acting strange. He denies any alcohol or drug david today. Medical Decision Making Lab Data 07/12/23 18:20 07/12/23 18:19 Labs: Lab Results 07/12/23 07/12/23 07/12/23 Range/Units 18:19 18:20 19:47 WBC 6.9 (4.8-10.8) X10*3/uL RBC 4.02 L (4.60-5.80) X10*6/uL Hgb 12.9 L (14.0-18.0) g/dl Hct 37.7 L (42.0-52.0) % MCV 93.8 (80.0-98.0) fL MCH 32.1 (27.0-33.0) pg MCHC 34.2 (31.0-36.0) g/dl RDW 13.3 (11.0-16.0) % Plt Count 157 L (160-400) X10*3/uL MPV 9.3 L (9.4-12.4) fL Immature Gran % (Auto) 0.3 (0.0-0.4) % Neut % (Auto) 48.7 (45-73) % Lymph % (Auto) 34.6 (20-40) % [place] % (Auto) 8.7 (2-11) % Eos % (Auto) 6.3 H (0-4) % Baso % (Auto) 1.4 (0-2) % Lymph # (Auto) 2.4 (1.2-4.9) X10*3/uL [place] # (Auto) 0.6 (0.1-1.2) X10*3/uL Eos # (Auto) 0.4 (0.0-0.4) X10*3/uL Baso # (Auto) 0.1 (0.0-0.2) X10*3/uL Abs Immat Gran (auto) 0.02 (0.00-0.03) X10*3/uL Absolute Neuts (auto) 3.4 (2.0-8.3) x10*3/uL Absolute Nucleated RBC 0.000 (0.0-0.012) X10*3/uL Nucleated RBC % (auto) 0.0 (0.0-0.2) /100WBC Sodium 139 (135-145) mmol/L Potassium 4.1 (3.3-5.1) mmol/L Chloride 106 (96-108) mmol/L Carbon Dioxide 25 (22-29) mmol/L Anion Gap 12 (12-20) BUN 13 (9-16) mg/dL Creatinine 1.02 (0.5-1.4) mg/dL Estim Creat Clear Calc 66.7 Estimated GFR > 60 Random Glucose 101 (60-115) mg/dL Calcium 9.5 (8.4-10.2) mg/dL Total Bilirubin 0.5 (0.0-1.0) mg/dL AST 24 (5-37) U/L ALT 32 (0-40) U/L Alkaline Phosphatase 106 (39-117) U/L Troponin I High Sens < 2.7 (<3.5-35.0) ng/L Total Protein 7.3 (6.5-8.0) g/dL Albumin 4.1 (3.5-5.0) g/dL Lipase 42 (8-78) U/L Urine Color Yellow Urine Appearance Clear Urine pH 5.5 (5.0-9.0) Ur Specific [place] 1.020 (1.005-1.025) Urine Protein Negative (Neg-Trace) mg/dL Urine Glucose (UA) Negative (Negative) mg/dL Urine Ketones Negative (Negative) mg/dL Urine Blood Negative (Negative) Urine Nitrite Negative (Negative) Ur Leukocyte Esterase Negative (Negative) Urine RBC 0-2 (0-2) /HPF Urine WBC 0-5 (0-5) /HPF Ur Squamous Epith Cells 0-2 (0-2) /HPF Urine Bacteria None Seen (None Seen) Hyaline Casts 0-2 (0-2) /LPF Urine Opiates Screen Not Detected (Not Detect) Urine Fentanyl Screen Not Detected (Not Detect) Ur Barbiturates Screen Not Detected (Not Detect) Ur Phencyclidine Scrn Not Detected (Not Detect) Ur Amphetamines Screen POSITIVE H (Not Detect) U Benzodiazepines Scrn Not Detected (Not Detect) Urine Cocaine Screen Not Detected (Not Detect) U Marijuana (THC) Screen Not Detected (Not Detect) Ethyl Alcohol < 10 mg/dL Discharge Plan Discharge Clinical Impression: Medication adverse effect Patient Disposition: Home, Self-Care Instructions: Adverse Drug Reaction (ED) Additional Instructions: Patient has sleepiness likely from medications he is taking Urine drug screen is negative for substance abuse Prescriptions: No Action methadone 10 mg/5 mL Solution 65 mg PO DAILY multivitamin [Daily-Yue] Tablet 1 tab PO DAILY hydrocortisone 0.5 % cream 1 appl topical BID PRN (Reason: eczema) sildenafil 100 mg tablet 1 tab PO DAILY PRN (Reason: Sexual Activity) lorazepam 0.5 mg tablet 1 tab PO BID amlodipine 10 mg tablet 1 tab PO DAILY lithium carbonate 300 mg capsule 1 cap PO BID pantoprazole 40 mg tablet,delayed release (DR/EC) 1 tab PO DAILY docusate sodium 100 mg capsule 1 cap PO BID PRN (Reason: constipation) ketoconazole 2 % cream 1 appl topical BID atovaquone 750 mg/5 mL suspension 1,500 mg PO DAILY Biktarvy 50-200-25 mg tablet 1 tab PO DAILY nicotine 14 mg/24 hr Patch 24 Hour 14 mg transdermal DAILY Qty: 28 0RF doxycycline hyclate 100 mg Tablet 100 mg PO Q12H Qty: 6 0RF Interventions: ED Discharge Assessment Last Done: 07/12/23 20:25 Discharge Date/Time: 07/12/23 20:26
--- NOTE | 2023-07-12 15:48 | ECG_ITS ---
Test Reason : crisis Blood Pressure : / mmHG Vent. Rate : 071 BPM Atrial Rate : 071 BPM P-R Int : 162 ms QRS Dur : 094 ms QT Int : 422 ms P-R-T Axes : 028 -03 002 degrees QTc Int : 458 ms Normal sinus rhythm Minimal voltage criteria for LVH, may be normal variant ( R in aVL ) Borderline ECG When compared with ECG of 09-FEB-2021 03:05, T wave amplitude has decreased in Inferior leads Nonspecific T wave abnormality no longer evident in Anterolateral leads Referred By: Isidoro Ron Electronically Signed By:SEA MENESES MD
[2023-07-12 15:49] VITALS: BP 126/67; PULSE 77; RESP 16; TEMP 36.4; O2SAT 97; BMI 17.2
[2023-07-12 18:24] LABS: MANUAL DIFF FLAG NO
[2023-07-12 18:28] LABS: Basophils Absolute Auto 0.1 X10*3/uL (0.0-0.2); Basophils Percent Auto 1.4 % (0-2); Eosinophils Absolute Auto 0.4 X10*3/uL (0.0-0.4); Eosinophils Percent Auto 6.3 % (0-4); Hematocrit 37.7 % (42.0-52.0); Hemoglobin 12.9 g/dl (14.0-18.0); Imm Gran Abs Auto 0.02 X10*3/uL (0.00-0.03); Imm Gran Pct Auto 0.3 % (0.0-0.4); Lymphocytes Absolute Auto 2.4 X10*3/uL (1.2-4.9); Lymphocytes Percent Auto 34.6 % (20-40); Mean Corpuscular HGB Conc 34.2 g/dl (31.0-36.0); Mean Corpuscular Hemoglobin 32.1 pg (27.0-33.0); Mean Corpuscular Volume 93.8 fL (80.0-98.0); Mean Platelet Volume 9.3 fL (9.4-12.4); Monocytes Absolute Auto 0.6 X10*3/uL (0.1-1.2); Monocytes Percent Auto 8.7 % (2-11); Neutrophils Absolute Auto 3.4 x10*3/uL (2.0-8.3); Neutrophils Percent Auto 48.7 % (45-73); Platelet Count 157 X10*3/uL (160-400); Red Blood Count 4.02 X10*6/uL (4.60-5.80); Red Cell Distribution Width 13.3 % (11.0-16.0); White Blood Count 6.9 X10*3/uL (4.8-10.8)
[2023-07-12 18:50] LABS: Alanine Aminotransferase 32 U/L (0-40); Albumin Level 4.1 g/dL (3.5-5.0); Alkaline Phosphatase 106 U/L (39-117); Anion Gap 12 (12-20); Aspartate Amino Transferase 24 U/L (5-37); Bilirubin Total 0.5 mg/dL (0.0-1.0); Blood Urea Nitrogen 13 mg/dL (9-16); Calcium 9.5 mg/dL (8.4-10.2); Carbon Dioxide 25 mmol/L (22-29); Chloride 106 mmol/L (96-108); Creatinine Clr Calc Pharmacy 66.7; Estimated Glomerular Filt Rate > 60; Ethanol < 10 mg/dL; Glucose Random 101 mg/dL (60-115); Lipase 42 U/L (8-78); Potassium 4.1 mmol/L (3.3-5.1); Sodium 139 mmol/L (135-145); Total Protein 7.3 g/dL (6.5-8.0)
[2023-07-12 18:56] LABS: Troponin-I High Sensitivity < 2.7 ng/L (<3.5-35.0)
[2023-07-12 19:40] VITALS: BP 133/86; PULSE 78; RESP 16; O2SAT 97
[2023-07-12 19:59] LABS: Appearance Urine Clear; Color Urine Yellow; Glucose Urine UA Negative (Negative); Leukocyte Esterase Urine Negative (Negative); Nitrite Urine Negative (Negative); PH 5.5 (5.0-9.0); Urine Blood Negative (Negative); Urine Ketones Negative (Negative); Urine Protein Negative (Neg-Trace)
[2023-07-12 20:02] LABS: Amphetamine Screen Urine POSITIVE (Not Detect); Barbiturates, Urine Not Detected (Not Detect); Benzodiazepines Screen Urine Not Detected (Not Detect); Cannabinoid Screen Urine Not Detected (Not Detect); Cocaine Screen Urine Not Detected (Not Detect); Fentanyl, urine Not Detected (Not Detect); Opiate Screen Urine Not Detected (Not Detect); Phencyclidine Screen Urine Not Detected (Not Detect)
[2023-07-12 20:04] LABS: Bacteria Urine None Seen (None Seen); Hyaline Casts Urine 0-2 /LPF (0-2); RBC Urine 0-2 /HPF (0-2); Squamous Epithelial Cell Urine 0-2 /HPF (0-2); WBC Urine 0-5 /HPF (0-5)
--- OUTSIDE RECORDS SUMMARY | 2023-07-12 20:08 | XMS_ITS | Continuity of Care Document ---
Author Name Unknown Organization [facility] Address [address] [place] [address]- Care Team Providers Care Designer Writer Name Role Phone Namrata Prieto MD Primary Care Physician Encounter [facility] [place] Date(s): 04/18/20 - 05/18/20 [facility] [address] [place] [address]- Attending Physician: Angeles De La Rosa Admitting Physician: Admtr, Angeles Referring Physician: Admtr, Ar8 Allergies, Adverse Reactions, Alerts Substance Reaction Severity Status shellfish Active Latex rash Active Immunizations Given and Recorded Vaccine Date Status Refusal Reason influenza virus vaccine, inactivated 06/08/19 Give n Medications amLODIPine 5 mg oral tablet 5 mg, 1, tablet, By Mouth, Daily, # 30 tablet, Refills 5, Tot. Refills 5, Maintenance, 11/28/19 9:43:00 EDT, Route to Pharmacy Electronically, [place], [place] -, 172, cm, 09/26/19 8:57:00 EST, Height, 66.3, kg, 09/11/19 13:26:00 EST,... Start Date: 11/28/19 Stop Date: 05/26/20 Status: Ordered atovaquone 750 mg/5 mL oral suspension 10 mL = 1,500 mg, By Mouth, Daily, for 60 days, # 600 mL, 5 Refills, Acute 11/22/20 9:44:00 EDT, 11/28/19 9:44:00 EDT, Suspension, [place], [place] -, Pls cancel bactrim prescription. Atovaquone to replace bactrim, 172, cm, 09/26/19 8... Start Date: 11/28/19 Stop Date: 11/22/20 Status: Ordered Biktarvy oral tablet 1 tablet, By Mouth, Daily, for 30 days, # 30 tablet, 5 Refills, Hard Stop 08/25/20 12:37:00 EST, 02/27/20 12:37:00 EDT, Tablet, [place], [place] -, 1 tablet By Mouth Daily,x30 days, 171, cm, 02/22/20 10:16:00 EDT, Height, 59.5, kg, 04... Start Date: 02/27/20 Stop Date: 08/25/20 Status: Ordered Biktarvy oral tablet 1 tablet, By Mouth, Daily, # 30 tablet, 5 Refills, Maintenance, 08/18/20 5:43:00 EST, Tablet, [place], [place] -, 1 tablet By Mouth Daily,x30 days, 171, cm, 02/22/20 10:16:00 EDT, Height, 59.5, kg, 12/29/19 15:28:00 EDT, Dry Weight Start Date: 08/18/20 Stop Date: 02/14/21 Status: Ordered Colace sodium 100 mg oral capsule 100 mg, 1, capsule, By Mouth, 2 times a day, PRN, # 20 capsule, Refills 0, Tot. Refills 0, Maintenance, for constipation, 12/29/19 16:19:00 EDT, Route to Pharmacy Electronically, [place], [place] -, 171, cm, 12/29/19 15:28:00 EDT, Hei... Start Date: 12/29/19 Status: Ordered gabapentin 100 mg oral capsule 200 mg, 2, capsule, By Mouth, 3 times a day, # 180 capsule, Refills 1, Tot. Refills 1, Maintenance,05/07/20 16:16:00 EDT, Route to Pharmacy Electronically, [place], [place] - [phone], 171, cm, 03/26/20 8:54:00 EDT, Height, 59.5, k... Start Date: 05/07/20 Stop Date: 09/04/20 Status: Ordered hydrocortisone 0.5% topical cream See Instructions, apply in a thin film to the hands and rub in gently 3 times a day for 5 days, # 28 Gm, 1 Refills, Maintenance, 02/27/20 12:35:00 EDT, [place], [place] -, apply in athin film to the hands and rub in gently 3 times a... Start Date: 02/27/20 Status: Ordered ketoconazole 2% topical shampoo 1 application, Topically, Daily, try daily for 5 days as a shampoo, # 120 mL, 3 Refills, Soft Stop,12/21/19 11:58:00 EDT, Shampoo, [place], [place] -, 1 application Topically Daily,Instr:try daily for 5 days as a shampoo, 172, cm, 01... Start Date: 12/21/19 Status: Ordered lithium 300 mg oral capsule 2 capsule = 600 mg, By Mouth, 2 times a day, # 120 capsule, 1 Refills, Maintenance, 05/07/20 16:16:00 EDT, [facility] [phone], Increase in dose per Psychiatry, 171, cm, 03/26/20 8:54:00 EDT, Height, 59.5, kg, 12/29/19 15:28... Start Date: 05/07/20 Status: Ordered LORazepam 0.5 mg oral tablet 1 tablet = 0.5 mg, By Mouth, 2 times a day, PRN Anxiety, # 60 tablet, 1 Refills, Maintenance, 05/07/20 16:16:00 EDT, Tablet, [place], [place] - [id number], 171, cm, 03/26/20 8:54:00 EDT, Height, 59.5, kg, 12/29/19 15:28:00 EDT, Dry We... Start Date: 05/07/20 Stop Date: 08/05/20 Status: Ordered methadone 10 mg oral tablet = 25 mg, By Mouth, Daily, 0 Refills, Maintenance, 01/17/19 10:36:18 EDT, Tablet Start Date: 01/17/19 Status: Ordered mirtazapine 30 mg oral tablet 1 tablet = 30 mg, By Mouth, Daily at bedtime, # 30 tablet, 5 Refills, Maintenance, 11/28/19 9:41:00EDT, Tablet, [place], [place] -, 172, cm, 09/26/19 8:57:00 EST, Height, 66.3, kg, 09/11/19 13:26:00 EST, Dry Weight Start Date: 11/28/19 Stop Date: 05/26/20 Status: Ordered multivitamin with minerals Calcium and Magnesium oral tablet 1 tablet, By Mouth, Daily, # 30 tablet, 5 Refills, Maintenance, 09/26/19 12:05:00 EST, Tablet, [facility], 1 tablet By Mouth Daily,x30 days, 172, cm, 09/26/19 8:57:00 EST, Height, 66.3, kg, 09/11/19 13:26:00 EST, Dry Weight Start Date: 09/26/19 Stop Date: 03/24/20 Status: Ordered Narcan 4 mg/0.1 mL nasal spray See Instructions, 4 mg Once may repeat every 2 to 3 minutes until patient responds, # 2 each, 1 Refills, Soft Stop, 08/24/19 9:41:00 EST, [facility], MAMADOU García to steel pickler for Pt., 170, cm, 08/24/19 9:21:00 EST, Height, 66.36,... Start Date: 08/24/19 Status: Ordered pantoprazole 40 mg oral delayed release tablet 1 tablet = 40 mg, By Mouth, Daily, # 30 tablet, 3 Refills, Maintenance, 11/28/19 9:42:00 EDT, EC Tablet, 172, cm, 09/26/19 8:57:00 EST, Height, 66.3, kg, 09/11/19 13:26:00 EST, Dry Weight Start Date: 11/28/19 Stop Date: 03/27/20 Status: Ordered polyethylene glycol 3350 oral powder for reconstitution = 17 Gm, By Mouth, 2 times a day, PRN Constipation, dissolve in water before taking, # 527 Gm, 3 Refills, Maintenance, 11/28/19 9:42:00 EDT, REC Powder, [facility], 17 Gm By Mouth 2 times a day,x30 days,PRN:Constipation,Instr:... Start Date: 11/28/19 Stop Date: 03/27/20 Status: Ordered SEROquel 25 mg oral tablet 25 mg, 1, tablet, By Mouth, Daily at bedtime, # 30 tablet, Refills 2, Tot. Refills 2, Maintenance, 03/26/20 9:29:00 EDT, Route to Pharmacy Electronically, [facility] [place], [place] -, 171, cm, 03/26/20 8:54:00 EDT, Height, 59.5, kg, 12/29/19 1... Start Date: 03/26/20 Stop Date: 06/24/20 Status: Ordered Problem List Condition Effective Dates Status Health Status Inform ant Constipation(Confirmed) Active Dehydration(Confirmed) Active Depression(Confirmed) Active Fungemia(Confirmed) Active Hemorrhoid(Confirmed) Active HIV disease(Confirmed) Active HIV infection(Confirmed) Active Drug abuse, IV(Confirmed) Active Pulmonary nodule(Confirmed) Active Severe malnutrition(Confirmed) Active Opiate dependence(Confirmed) Active Pancytopenia(Confirmed) Active Emphysema/COPD(Confirmed) Active Social History Social History Type Response Smoking Status 10 or more cigarette s (1/2 pack or more)/day in last 30 days entered on: 03/10/19 Sex
--- OUTSIDE RECORDS SUMMARY | 2023-07-12 20:08 | XMS_ITS | Continuity of Care Document ---
Author Name Unknown Organization [facility] Address [address] [place] [address]- Care Team Providers Care Older Adult Social Work Specialist Name Role Phone Conner QUEEN, Namrata Agarwal Primary Care Physician Encounter [facility] Date(s): 03/03/22 - 04/02/22 [facility] [address] [place] [id number] Allergies, Adverse Reactions, Alerts Substance Reaction Severity Status shellfish Active Latex rash Active Suboxone migraine (PO), fevers (IM) A ctive Immunizations Given and Recorded Vaccine Date Status Refusal Reason SARS-CoV-2 (COVID-19) mRNA-1273 vaccine 09/30/21 G iven SARS-CoV-2 (COVID-19) mRNA-1273 vaccine 04/21/21 G iven influenza virus vaccine, inactivated 09/30/21 Give n influenza virus vaccine, inactivated 07/02/20 Give n influenza virus vaccine, inactivated 06/08/19 Give n Medications Advair Diskus 250 mcg-50 mcg inhalation powder 1, inhalation, Inhalation, 2 times a day, rinse mouth and throat after use, # 1 each, Refills 11, Tot. Refills 11, Maintenance, 01/07/22 8:29:00 EDT, Powder, Route to Pharmacy Electronically, [id number], [facility] - Spr... Start Date: 01/07/22 Stop Date: 01/02/23 Status: Ordered Albuterol (Eqv-ProAir HFA) 90 mcg/inh inhalation aerosol 2 puffs, Inhalation, Every 6 hours, # 8.5 Gm, 11 Refills, 08/25/21 12:34:00 EST, [facility] [id number], 25, 2 puffs Inhalation Every 6 hours, 173, cm, 08/25/21 12:31:00 EST, Height, 84, kg, 04/19/21 2:36:00 EDT, Dry Weight Start Date: 08/25/21 Status: Ordered amLODIPine 10 mg oral tablet 10 mg, 1, tablet, By Mouth, Daily, # 30 tablet, Refills 11, Tot. Refills 11, Maintenance, 08/27/21 16:46:00 EST, Route to Pharmacy Electronically, [facility] [id number], 173,cm, 08/25/21 12:31:00 EST, Height, 84, kg, 04/19/21... Start Date: 08/27/21 Status: Ordered Asperflex 4% topical film 1 patch, Topically, Daily, for 30 days, # 30 patch, 11 Refills, Acute 03/12/23 14:41:00 EDT, 03/17/22 14:41:00 EDT, [facility] [id number], Partial fill upon patient request if the prescription is for a schedule II opioid drug.... Start Date: 03/17/22 Stop Date: 03/12/23 Status: Ordered aspirin 81 mg oral tablet, chewable 81 mg, 1, tablet, By Mouth, Daily, # 120 tablet, Refills 3, Tot. Refills 3, Maintenance, 10/02/21 11:47:00 EST, Route to Pharmacy Electronically, [facility] [id number], Partial fill upon patient request if the prescription is... Start Date: 10/02/21 Stop Date: 01/25/23 Status: Ordered atorvastatin 80 mg oral tablet 1 tablet = 80 mg, By Mouth, Daily, # 30 tablet, 11 Refills, Maintenance, 11/07/21 14:34:00 EST, Tablet, [facility] [id number], Partial fill upon patient request if the prescription is for a schedule II opioid drug., 170, cm, 0... Start Date: 11/07/21 Status: Ordered atovaquone 750 mg/5 mL oral suspension 10 mL = 1,500 mg, By Mouth, Daily, for 60 days, # 600 mL, 11 Refills, Acute 10/28/23 14:35:00 EST, 11/07/21 14:35:00 EST, Suspension, [facility] [id number], Pls cancel bactrim prescription. Atovaquone to replace bactrim, 170,... Start Date: 11/07/21 Stop Date: 10/28/23 Status: Ordered Biktarvy oral tablet 1 tablet, By Mouth, Daily, # 30 tablet, 11 Refills, [facility], 30, TAKE ONE TABLET BY MOUTH DAILY, 173, cm, 04/21/21 8:17:00 EDT, Height, 84, kg, 04/19/21 2:36:00 EDT, Dry Weight Start Date: 06/25/21 Status: Ordered Colace sodium 100 mg oral capsule 100 mg, 1, capsule, By Mouth, 2 times a day, PRN, # 60 capsule, Refills 11, Tot. Refills 11, Maintenance, for constipation, 12/02/21 16:54:00 EDT, Route to Pharmacy Electronically, [facility] [id number], Partial fill upon pilar... Start Date: 12/02/21 Status: Ordered Crutches See Instructions, # 1 each, Refills 1, Tot. Refills 1, Acute 02/15/29 11:34:00 EDT, left foot pain,fall Dx M79.672, S99.922A Use as needed for ambulation, 03/12/22 11:11:00 EDT, Supply Start Date: 03/12/22 Stop Date: 02/15/29 Status: Ordered EpiPen 2-Devin 0.3 mg injectable kit = 0.3 mg, Intramuscular, Once, may repeat if necessary. call ambulance immediately after using, # 1each, 1 Refills, Soft Stop, 03/05/22 10:37:00 EDT, [facility] [id number], Partial fill upon patient request if the prescriptio... Start Date: 03/05/22 Status: Ordered ergocalciferol 35467 iu oral capsule 50,000 [employer]its, 1, capsule, By Mouth, Every week, for 30 days, # 5 capsule, Refills 1, Tot. Refills 1, Acute 05/04/22 10:22:00 EDT, 03/05/22 10:22:00 EDT, Route to Pharmacy Electronically, [facility] [id number], 17... Start Date: 03/05/22 Stop Date: 05/04/22 Status: Ordered hydrocortisone 0.5% topical cream See Instructions, use sparingly on face, use on all other affected areas, # 28 Gm, 11 Refills, Maintenance, 03/07/21 6:50:00 EDT, [facility] [id number], use sparingly on face, use on all other affected areas, 174, cm, 01/13/21... Start Date: 03/07/21 Status: Ordered Incruse Ellipta 62.5 mcg/inh inhalation powder 1 puffs, Inhalation, Every 24 hours, doses should be taken AT least 24 HOURS APART, # 30 Unknown, 11 Refills, 08/25/21 12:34:00 EST, [facility] [id number], 173, cm, 08/25/21 12:31:00 EST, Height, 84, kg, 04/19/21 2:36:00 EDT,... Start Date: 08/25/21 Status: Ordered ketoconazole 2% topical cream 1 application, Topically, Daily, # 30 Gm, 11 Refills, Maintenance, 12/02/21 16:56:00 EDT, [facility] [id number], 1 application Topically Daily, 170, cm, 10/10/21 13:45:00 EST, Height, 110, kg, 09/29/21 21:14:00 EST, Dry Weight Start Date: 12/02/21 Status: Ordered Lidoderm 5% film 1 patch, Topically, Daily, # 30 patch, 11 Refills, Maintenance, 03/19/22 21:12:00 EDT, [facility] [id number], Partial fill upon patient request if the prescription is for a schedule II opioid drug., 1 patch Topically Daily, 17... Start Date: 03/19/22 Status: Ordered lithium 300 mg oral capsule via psychiatry, 0 Refills, Maintenance, 03/05/22 10:05:00 EDT, Partial fill upon patient request ifthe prescription is for a schedule II opioid drug. Start Date: 03/05/22 Status: Ordered LORazepam 0.5 mg oral tablet via psychiatry, 0 Refills, Maintenance, 03/05/22 10:05:00 EDT, Partial fill upon patient request ifthe prescription is for a schedule II opioid drug. Start Date: 03/05/22 Status: Ordered Methadone = 100 mg, By Mouth, Daily, 0 Refills, Maintenance, 05/28/20 16:11:00 EDT, Partial fill upon patientrequest Start Date: 05/28/20 Status: Ordered mirtazapine 30 mg oral tablet 1 tablet = 30 mg, By Mouth, Daily at bedtime, patient needs to get labs, pls inform no more refillsuntil labs, # 30 tablet, 0 Refills, Maintenance, 11/11/21 17:22:00 EST, Tablet, [facility] [id number], 170, cm, 10/10/21 13:45... Start Date: 11/11/21 Stop Date: 12/11/21 Status: Ordered multivitamin with minerals Calcium and Magnesium oral tablet 1 tablet, By Mouth, Daily, # 30 tablet, 11 Refills, Maintenance, 12/15/21 6:32:00 EDT, Tablet, [facility] [id number], 1 tablet By Mouth Daily, 173, cm, 12/05/21 17:38:00 EDT,Height, 127, kg, 12/05/21 17:38:00 EDT, Dry Weight Start Date: 12/15/21 Status: Ordered Narcan 4 mg/0.1 mL nasal spray See Instructions, 4 mg Once may repeat every 2 to 3 minutes until patient responds, # 2 each, 3 Refills, Soft Stop, 03/05/22 10:07:00 EDT, [facility] [id number], 173, cm, 12/05/21 17:38:00 EDT, Height, 127, kg, 12/05/21 17:38... Start Date: 03/05/22 Status: Ordered Nicotine 2 mg gum 1 each = 2 mg, Chew, Every 2 hours, PRN as needed for smoking cessation, for 4 week(s), # 160 each,11 Refills, Acute 09/11/22 12:53:00 EST, 10/10/21 12:53:00 EST, Gum, [facility] [id number], Partial fill upon patient request... Start Date: 10/10/21 Stop Date: 09/11/22 Status: Ordered ondansetron 4 mg oral tablet, disintegrating 1 tablet = 4 mg, By Mouth, Every 8 hours, PRN as needed for nausea/vomiting, # 12 tablet, 11 Refills, Maintenance, 08/21/21 13:33:00 EST, DIS Tablet, [facility] [id number], Partial fill upon patient request if the prescription... Start Date: 08/21/21 Status: Ordered pantoprazole 40 mg oral delayed release tablet 1 tablet = 40 mg, By Mouth, Daily, # 30 tablet, 11 Refills, Maintenance, 12/15/21 6:32:00 EDT, EC Tablet, 173, cm, 12/05/21 17:38:00 EDT, Height, 127, kg, 12/05/21 17:38:00 EDT, Dry Weight Start Date: 12/15/21 Status: Ordered polyethylene glycol 3350 oral powder for reconstitution = 17 Gm, By Mouth, 2 times a day, PRN Constipation, dissolve in water before taking, # 527 Gm, 3 Refills, Maintenance, 12/02/21 16:55:00 EDT, REC Powder, [facility] [id number], 17 Gm By Mouth 2 times a day,x30 days,PRN:Constip... Start Date: 12/02/21 Stop Date: 04/01/22 Status: Ordered rOPINIRole 0.5 mg oral tablet 1 tablet = 0.5 mg, By Mouth, Daily at bedtime, 1 to 3 hours before bedtime, # 30 tablet, 11 Refills, Maintenance, 08/21/21 13:32:00 EST, Tablet, [facility] [id number], Partial fill upon patient request if the prescription is f... Start Date: 08/21/21 Status: Ordered Senna 8.6 mg oral tablet 1 or 2 tablets, By Mouth, Daily at bedtime, PRN, # 60 tablet, Refills 5, Tot. Refills 5, Maintenance, Constipation, 10/10/21 14:43:00 EST, Route to Pharmacy Electronically, [facility] [id number] Tablet, Partial fill upon patie... Start Date: 10/10/21 Status: Ordered sildenafil 100 mg oral tablet 1 tablet = 100 mg, By Mouth, Daily, 1 hour before sexual activity, # 20 tablet, 11 Refills, Maintenance, 03/07/21 6:49:00 EDT, Tablet, [facility] [id number], Partial fill upon patient request if the prescription is for a sched... Start Date: 03/07/21 Status: Ordered varenicline 1mg tablet 1 tablet = 1 mg, By Mouth, Daily, 0.5 tab daily x 3 days then 0.5 tab BID x 3 days then 1 tab BID, # 30 tablet, 4 Refills, Maintenance, 04/01/22 16:45:00 EDT, Tablet, [facility] [id number], Partial fill upon patient request if... 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 Impaired LV relaxation Social History Social History Type Response Smoking Status 10 or more cigarette s (1/2 pack or more)/day in last 30 days entered on: 12/05/21 Sex
--- OUTSIDE RECORDS SUMMARY | 2023-07-12 20:08 | XMS_ITS | Continuity of Care Document ---
Author Name Unknown Organization [facility] Address [address] [place] [address]- Care Team Providers Care Writer Producer Name Role Phone Conner QUEEN, Namrata Agarwal Primary Care Physician [phone] Encounter [facility] Date(s): 08/12/21 - 09/11/21 [facility] [address] [place] [id number]- Attending Physician: Admtr, [id number] Admitting Physician: Admtr, [id number] Referring Physician: Admtr, Ar8 Allergies, Adverse Reactions, Alerts Substance Reaction Severity Status shellfish Active Latex rash Active Suboxone migraine (PO), fevers (IM) A ctive Immunizations Given and Recorded Vaccine Date Status Refusal Reason SARS-CoV-2 (COVID-19) mRNA-1273 vaccine 04/21/21 G iven influenza virus vaccine, inactivated 07/02/20 Give n influenza virus vaccine, inactivated 06/08/19 Give n Medications Advair Diskus 250 mcg-50 mcg inhalation powder 1, inhalation, Inhalation, 2 times a day, rinse mouth and throat after use, # 1 each, Refills 4, Tot. Refills 4, Maintenance, 08/21/21 13:14:00 EST, Powder, Route to Pharmacy Electronically, [id number], [facility]... Start Date: 08/21/21 Stop Date: 01/18/22 Status: Ordered Albuterol (Eqv-ProAir HFA) 90 mcg/inh inhalation aerosol 2 puffs, Inhalation, Every 6 hours, # 8.5 Gm, 11 Refills, 08/25/21 12:34:00 EST, [place], [place] - [id number], 25, 2 puffs Inhalation Every 6 hours, 173, cm, 08/25/21 12:31:00 EST, Height, 84, kg, 04/19/21 2:36:00 EDT, Dry Weight Start Date: 08/25/21 Status: Ordered amLODIPine 10 mg oral tablet 10 mg, 1, tablet, By Mouth, Daily, # 30 tablet, Refills 11, Tot. Refills 11, Maintenance, 08/27/21 16:46:00 EST, Route to Pharmacy Electronically, [place], [place] - [id number], 173,cm, 08/25/21 12:31:00 EST, Height, 84, kg, 04/19/21... Start Date: 08/27/21 Status: Ordered atovaquone 750 mg/5 mL oral suspension 10 mL = 1,500 mg, By Mouth, Daily, for 60 days, # 600 mL, 11 Refills, Acute 02/25/23 6:50:00 EDT, 03/07/21 6:50:00 EDT, Suspension, [place], [place] - [id number], Pls cancel bactrim prescription. Atovaquone to replace bactrim, 174, cm... Start Date: 03/07/21 Stop Date: 02/25/23 Status: Ordered Biktarvy oral tablet 1 tablet, By Mouth, Daily, # 30 tablet, 11 Refills, [facility], 30, TAKE ONE TABLET BY MOUTH DAILY, 173, cm, 04/21/21 8:17:00 EDT, Height, 84, kg, 04/19/21 2:36:00 EDT, Dry Weight Start Date: 06/25/21 Status: Ordered Blood Pressure Monitor Blood Pressure Monitor, See Instructions, # 1 each, Refills 0, Tot. Refills 0, Maintenance, Check BP 1x Weekly, 2 Hours After Morning Medications and Document Dx: HTN (I10); Amlodipine 10mg Duration:Lifetime, 09/01/21 13:02:00 EST, Supply Start Date: 09/01/21 Status: Ordered docusate sodium 100 mg oral capsule 1 capsule, By Mouth, 2 times a day, PRN NEEDED FOR CONSTIPATION, # 60 each, 5 Refills, [facility], 173, cm, 04/21/21 8:17:00 EDT, Height, 84, kg, 04/19/21 2:36:00 EDT, Dry Weight Start Date: 06/02/21 Status: Ordered hydrocortisone 0.5% topical cream See Instructions, use sparingly on face, use on all other affected areas, # 28 Gm, 11 Refills, Maintenance, 03/07/21 6:50:00 EDT, [facility] [id number], use sparingly on face, use on all other affected areas, 174, cm, 01/13/21... Start Date: 03/07/21 Status: Ordered Incruse Ellipta 62.5 mcg/inh inhalation powder 1 puffs, Inhalation, Every 24 hours, doses should be taken AT least 24 HOURS APART, # 30 Unknown, 11 Refills, 08/25/21 12:34:00 EST, [place], [place] - [id number], 173, cm, 08/25/21 12:31:00 EST, Height, 84, kg, 04/19/21 2:36:00 EDT,... Start Date: 08/25/21 Status: Ordered ketoconazole 2% topical cream See Instructions, APPLY TO THE AFFECTED AREA TOPICALLY 2 (two) times a day. USE ON THE FACE, # 60 Gm, 11 Refills, [facility], 30, APPLY TO THE AFFECTED AREA TOPICALLY 2 (two) times a day. USE ONTHE FACE, 173, cm, 04/21/21 8:17:00 EDT, Height, 84... Start Date: 06/02/21 Status: Ordered lithium 300 mg oral capsule 2 capsule = 600 mg, By Mouth, 2 times a day, 0 Refills, Maintenance, 03/07/21 6:54:00 EDT, Capsule,Partial fill upon patient request if the prescription is for a schedule II opioid drug. Start Date: 03/07/21 Status: Ordered LORazepam 0.5 mg oral tablet 0.5 tablet = 0.25 mg, By Mouth, 2 times a day, 0 Refills, Maintenance, 03/07/21 6:54:00 EDT, Tablet, Partial fill upon patient request if the prescription is for a schedule II opioid drug. Start Date: 03/07/21 Status: Ordered Methadone = 100 mg, By Mouth, Daily, 0 Refills, Maintenance, 05/28/20 16:11:00 EDT, Partial fill upon patientrequest Start Date: 05/28/20 Status: Ordered multivitamin with minerals Calcium and Magnesium oral tablet 1 tablet, By Mouth, Daily, # 30 tablet, 11 Refills, Maintenance, 03/07/21 6:51:00 EDT, Tablet, [facility] [id number], 1 tablet By Mouth Daily, 174, cm, 01/13/21 8:20:00 EDT, Height, 93, kg, 01/08/21 18:17:00 EDT, Dry Weight Start Date: 03/07/21 Status: Ordered Narcan 4 mg/0.1 mL nasal spray See Instructions, 4 mg Once may repeat every 2 to 3 minutes until patient responds, # 2 each, 1 Refills, Soft Stop, 08/24/19 9:41:00 EST, [place], [place] -, MAMADOU García to 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 Start Date: 08/24/19 Status: Ordered ondansetron 4 mg oral tablet, disintegrating 1 tablet = 4 mg, By Mouth, Every 8 hours, PRN as needed for nausea/vomiting, # 12 tablet, 11 Refills, Maintenance, 08/21/21 13:33:00 EST, DIS Tablet, [facility] [id number], Partial fill upon patient request if the prescription... Start Date: 08/21/21 Status: Ordered pantoprazole 40 mg oral delayed release tablet 1 tablet = 40 mg, By Mouth, Daily, # 30 tablet, 11 Refills, Maintenance, 03/07/21 6:51:00 EDT, EC Tablet, 174, cm, 01/13/21 8:20:00 EDT, Height, 93, kg, 01/08/21 18:17:00 EDT, Dry Weight Start Date: 03/07/21 Status: Ordered polyethylene glycol 3350 oral powder for reconstitution = 17 Gm, By Mouth, 2 times a day, PRN Constipation, dissolve in water before taking, # 527 Gm, 3 Refills, Maintenance, 11/28/19 9:42:00 EDT, REC Powder, [place], [place] -, 17 Gm By Mouth 2 times a day,x30 days,PRN:Constipation,Instr:... Start Date: 11/28/19 Stop Date: 03/27/20 Status: Ordered polyethylene glycol 3350 oral powder for reconstitution See Instructions, DISSOLVE 17grams powder IN WATER BEFORE drinking 2 (two) times a day NEEDED FOR CONSTIPATION, # 510 Gm, 11 Refills, [facility], 30, DISSOLVE 17grams powder IN WATER BEFORE drinking 2 (two) times a day NEEDED FOR CONSTIPATI... Start Date: 09/03/21 Status: Ordered rOPINIRole 0.5 mg oral tablet 1 tablet = 0.5 mg, By Mouth, Daily at bedtime, 1 to 3 hours before bedtime, # 30 tablet, 11 Refills, Maintenance, 08/21/21 13:32:00 EST, Tablet, [place], [place] - [id number], Partial fill upon patient request if the prescription is f... Start Date: 08/21/21 Status: Ordered sildenafil 100 mg oral tablet 1 tablet = 100 mg, By Mouth, Daily, 1 hour before sexual activity, # 20 tablet, 11 Refills, Maintenance, 03/07/21 6:49:00 EDT, Tablet, [place], [place] - [id number], Partial fill upon patient request if the prescription is for a sched... 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 Sex Male
--- OUTSIDE RECORDS SUMMARY | 2023-07-12 20:08 | XMS_ITS | Continuity of Care Document ---
Author Name Unknown Organization [facility] Address [address] [place] [address]- Care Team Providers Care Loading Unit Tool Setter Name Role Phone Conner QUEEN, Namrata Agarwal Primary Care Physician [facility] Date(s): 09/29/21 - 10/29/21 [facility] [address] [place] [address], [place] [address] Allergies, Adverse Reactions, Alerts Substance [...] 13:14:00 EST, Powder, Route to Pharmacy Electronically, [id number], [facility] [place]... Start Date: 08/21/21 Stop Date: 01/18/22 Status: Ordered Albuterol (Eqv-ProAir HFA) 90 mcg/inh inhalation aerosol 2 puffs, Inhalation, Every 6 hours, # 8.5 Gm, 11 Refills, 08/25/21 12:34:00 EST, [facility] [id number], 25, 2 puffs Inhalation Every 6 hours, 173, cm, 08/25/21 12:31:00 EST, Height, 84, kg, 04/19/21 2:36:00 EDT, Dry Weight Start Date: 08/25/21 Status: Ordered amLODIPine 10 mg oral tablet 10 mg, 1, tablet, By Mouth, Daily, # 30 tablet, Refills 11, Tot. Refills 11, Maintenance, 08/27/21 16:46:00 EST, Route to Pharmacy Electronically, [facility] [id number], 173,cm, 08/25/21 12:31:00 EST, Height, 84, kg, 04/19/21... Start Date: 08/27/21 Status: Ordered aspirin 81 mg oral tablet, chewable 81 mg, 1, tablet, By Mouth, Daily, # 120 tablet, Refills 3, Tot. Refills 3, Maintenance, 10/02/21 11:47:00 EST, Route to Pharmacy Electronically, [facility] [id number], Partial fill upon patient request if the prescription is... Start Date: 10/02/21 Stop Date: 01/25/23 Status: Ordered atorvastatin 80 mg oral tablet 1 tablet = 80 mg, By Mouth, Daily at bedtime, # 90 tablet, 4 Refills, Maintenance, 10/02/21 11:47:00 EST, Tablet, [facility] [id number], Partial fill upon patient request if the prescription is for a schedule II opioid drug.,... Start Date: 10/02/21 Stop Date: 12/26/22 Status: Ordered atovaquone 750 mg/5 mL oral suspension 10 mL = 1,500 mg, By Mouth, Daily, for 60 days, # 600 mL, 11 Refills, Acute 02/25/23 6:50:00 EDT, 03/07/21 6:50:00 EDT, Suspension, [facility] [id number], Pls cancel bactrim prescription. Atovaquone to replace bactrim, 174, cm... Start Date: 03/07/21 Stop Date: 02/25/23 Status: Ordered Biktarvy oral tablet 1 tablet, By Mouth, Daily, # 30 tablet, 11 Refills, [facility], 30, TAKE ONE TABLET BY MOUTH DAILY, [...] FOR CONSTIPATION, # 60 each, 5 Refills, [facility], 173, cm, 04/21/21 8:17:00 EDT, Height, 84, kg, 04/19/21 2:36:00 EDT, Dry Weight Start Date: 06/02/21 Status: Ordered hydrocortisone 0.5% topical cream See Instructions, use sparingly on face, use on all other affected areas, # 28 Gm, 11 Refills, Maintenance, 03/07/21 6:50:00 EDT, [place], [place] - [id number], use sparingly on face, use on all other affected areas, 174, cm, 01/13/21... Start Date: 03/07/21 Status: Ordered Incruse Ellipta 62.5 mcg/inh inhalation powder 1 puffs, Inhalation, Every 24 hours, doses should be taken AT least 24 HOURS APART, # 30 Unknown, 11 Refills, 08/25/21 12:34:00 EST, [place], [place] - [id number], 173, cm, 08/25/21 12:31:00 EST, Height, 84, kg, 04/19/21 2:36:00 EDT,... Start Date: 08/25/21 Status: Ordered ketoconazole 2% topical cream See Instructions, APPLY TO THE AFFECTED AREA TOPICALLY 2 (two) times a day. USE ON THE FACE, # 60 Gm, 11 Refills, [facility], 30, APPLY TO THE AFFECTED AREA [...] 11 Refills, Maintenance, 03/07/21 6:51:00 EDT, Tablet, [place], [place] - [id number], 1 tablet By Mouth Daily, 174, cm, 01/13/21 8:20:00 EDT, Height, 93, kg, 01/08/21 18:17:00 EDT, Dry Weight Start Date: 03/07/21 Status: Ordered Narcan 4 mg/0.1 mL nasal spray See Instructions, 4 mg Once may repeat every 2 to 3 minutes until patient responds, # 2 each, 1 Refills, Soft Stop, 08/24/19 9:41:00 EST, [place], [place] -, MAMADOU García to pick pack worker for Pt., 170, cm, 08/24/19 9:21:00 EST, Height, 66.36,... Start Date: 08/24/19 Status: Ordered Nicotine 2 mg gum 1 each = 2 mg, Chew, Every 2 hours, PRN as needed for smoking cessation, for 4 week(s), # 160 each,11 Refills, Acute 09/11/22 12:53:00 EST, 10/10/21 12:53:00 EST, Gum, [facility] [id number], Partial fill upon patient request... Start Date: 10/10/21 Stop Date: 09/11/22 Status: Ordered Occupational Therapy Occupational Therapy, See Instructions, # 1 each, Refills 0, Tot. Refills 0, Maintenance, Dx: AcuteParietal and Frontal lobe CVA, 10/02/21 11:49:00 EST, Supply Start Date: 10/02/21 Status: Ordered ondansetron 4 mg oral tablet, disintegrating 1 tablet = 4 mg, By Mouth, Every 8 hours, PRN as needed for nausea/vomiting, # 12 tablet, 11 Refills, Maintenance, 08/21/21 13:33:00 EST, DIS Tablet, [facility] [id number], Partial fill upon patient request if the prescription... Start Date: 08/21/21 Status: Ordered pantoprazole 40 mg oral delayed release tablet 1 tablet = 40 mg, By Mouth, Daily, # 30 tablet, 11 Refills, Maintenance, 03/07/21 6:51:00 EDT, EC Tablet, 174, cm, 01/13/21 8:20:00 EDT, Height, 93, kg, 01/08/21 18:17:00 EDT, Dry Weight Start Date: 03/07/21 Status: Ordered Physican Therapy Physican Therapy, See Instructions, # 1 each, Refills 0, Tot. Refills 0, Maintenance, Dx: Acute Parietal and Frontal lobe CVA, 10/02/21 11:49:00 EST, Supply Start Date: 10/02/21 Status: Ordered Plavix 75 mg oral tablet 75 mg, 1, tablet, By Mouth, Daily, # 90 tablet, Refills 0, Tot. Refills 0, Maintenance, 10/02/21 11:47:00 EST, Route to Pharmacy Electronically, [facility], [facility] [id number], Partial fill upon patient request if the prescription is f... Start Date: 10/02/21 Stop Date: 12/31/21 Status: Ordered polyethylene glycol 3350 oral powder for reconstitution = 17 Gm, By Mouth, 2 times a day, PRN Constipation, dissolve in water before taking, # 527 Gm, 3 Refills, Maintenance, 11/28/19 9:42:00 EDT, REC Powder, [place], [place] -, 17 Gm By Mouth 2 times a day,x30 days,PRN:Constipation,Instr:... Start Date: 11/28/19 Stop Date: 03/27/20 Status: Ordered polyethylene glycol 3350 oral powder for reconstitution See Instructions, DISSOLVE 17grams powder IN WATER BEFORE drinking 2 (two) times a day NEEDED FOR CONSTIPATION, # 510 Gm, 11 Refills, [facility], 30, DISSOLVE 17grams powder IN WATER BEFORE drinking 2 (two) times a day NEEDED FOR CONSTIPATI... Start Date: 09/03/21 Status: Ordered rOPINIRole 0.5 mg oral tablet 1 tablet = 0.5 mg, By Mouth, Daily at bedtime, 1 to 3 hours before bedtime, # 30 tablet, 11 Refills, Maintenance, 08/21/21 13:32:00 EST, Tablet, [facility] [id number], Partial fill upon patient request if the prescription is f... Start Date: 08/21/21 Status: Ordered Senna 8.6 mg oral tablet 1 or 2 tablets, By Mouth, Daily at bedtime, PRN, # 60 tablet, Refills 5, Tot. Refills 5, Maintenance, Constipation, 10/10/21 14:43:00 EST, Route to Pharmacy Electronically, [facility], [place] - [id number] Tablet, Partial fill upon patie... Start Date: 10/10/21 Status: Ordered sildenafil 100 mg oral tablet 1 tablet = 100 mg, By Mouth, Daily, 1 hour before sexual activity, # 20 tablet, 11 Refills, Maintenance, 03/07/21 6:49:00 EDT, Tablet, [facility] [id number], Partial fill upon patient request if the prescription is for a sched... Start Date: 03/07/21 Status: Ordered varenicline 0.5 mg tablet 1 tablet, By Mouth, Daily, for 3 days, TAKE ONE TABLET two (2) times a day FOR 4 DAYS; THEN TAKE 2 TABLETS two (2) times a day, # 95 tablet, 0 Refills, Physician Stop, [facility], 170, cm, 10/10/21 13:45:00 EST, Height, 110, kg, 09/29/21 21:14:... 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 Impaired LV relaxation Social History Social History Type Response Tobacco Use: 4 or less cigar ettes(less than 1/4 pack)/day in last 30 days. Sex
--- OUTSIDE RECORDS SUMMARY | 2023-07-12 20:08 | XMS_ITS | Continuity of Care Document ---
Author Name Unknown Organization [facility] y Address [address] [place] [address]- Care Team Providers Care Control Panel Builder Name Role Phone Conner QUEEN, Namrata Agarwal Primary Care Physician [phone] Encounter [facility] ACCT R [id number] Date(s): 04/07/23 - 05/15/23 [facility] [address] [place], [place] [address] Attending Physician: Isidoro Neely MD Admitting Physician: Isidoro Neely MD Allergies, Adverse Reactions, Alerts Substance Reaction Severity Status shellfish Active Bee Stings Active Latex rash Active Suboxone migraine (PO), fevers (IM) A ctive Immunizations Given and Recorded Vaccine Date Status Refusal Reason SARS-CoV-2 (COVID-19) mRNA-1273 vaccine 09/30/21 G iven SARS-CoV-2 (COVID-19) mRNA-1273 vaccine 04/21/21 G iven influenza virus vaccine, inactivated 09/30/21 Give n influenza virus vaccine, inactivated 07/02/20 Give n influenza virus vaccine, inactivated 06/08/19 Give n Medications amLODIPine 10 mg oral tablet 10 mg, 1, tablet, By Mouth, Daily, # 90 tablet, Refills 3, Tot. Refills 3, Maintenance, 02/16/23 10:45:00 EDT, Route to Pharmacy Electronically, [facility] - [place], [place] - [id number], 173, cm, 01/21/23 11:36:00 EDT, Height, 93.18, kg, ... Start Date: 02/16/23 Status: Ordered aspirin 81 mg oral tablet, chewable 81 mg, 1, tablet, By Mouth, Daily, # 90 tablet, Refills 3, Tot. Refills 3, Maintenance, 02/16/23 10:45:00 EDT, Route to Pharmacy Electronically, [facility] [id number], Partial fill upon patient request if the prescription is f... Start Date: 02/16/23 Status: Ordered atorvastatin 80 mg oral tablet 1 tablet = 80 mg, By Mouth, Daily, # 90 tablet, 3 Refills, Maintenance, 02/16/23 10:45:00 EDT, Tablet, [facility] [id number], Partial fill upon patient request if the prescription is for a schedule II opioid drug., 173, cm, 05... Start Date: 02/16/23 Status: Ordered Biktarvy oral tablet 1 tablet, By Mouth, Daily, must get appt and labs for refills, # 30 tablet, 0 Refills, Maintenance,12/16/22 19:18:00 EDT, [facility] [id number], 30, 1 tablet By Mouth Daily,Instr:must get appt and labs for refills, 173, cm, 0... Start Date: 12/16/22 Status: Ordered Colace sodium 100 mg oral capsule 100 mg, 1, capsule, By Mouth, 2 times a day, PRN, # 180 capsule, Refills 3, Tot. Refills 3, Maintenance, for constipation, 02/16/23 10:45:00 EDT, Route to Pharmacy Electronically, [facility] [id number], Partial fill upon patie... Start Date: 02/16/23 Status: Ordered EpiPen 2-Devin 0.3 mg injectable kit = 0.3 mg, Intramuscular, Once, may repeat if necessary, # 2 each, 1 Refills, Soft Stop, 04/14/23 14:07:00 EDT, [facility] [id number], Partial fill upon patient request if theprescription is for a schedule II opioid drug., 176... Start Date: 04/14/23 Status: Ordered fluticasone-salmeterol 250 mcg-50 mcg inhalation powder 1, puffs, Inhalation, 2 times a day, # 3 each, Refills 3, Tot. Refills 3, Maintenance, 02/16/23 10:45:00 EDT, Powder, Route to Pharmacy Electronically, [id number], [place], [place] - [id number], 173, cm, 01/04... Start Date: 02/16/23 Status: Ordered Incruse Ellipta 62.5 mcg/inh inhalation powder 1 puffs, Inhalation, Every 24 hours, # 3 each, 3 Refills, Maintenance, 02/16/23 10:45:00 EDT, [place], [place] - [id number], 173, cm, 01/21/23 11:36:00 EDT, Height, 93.18, kg, 08/12/22 0:40:00 EST, Dry Weight Start Date: 02/16/23 Status: Ordered [place] 200 mg, By Mouth, Daily at bedtime, Refills 0, Maintenance, 02/26/23 10:07:00 EDT, Partial fill upon patient request if the prescription is for a schedule II opioid drug. Start Date: 02/26/23 Status: Ordered lithium 300 mg oral capsule 2 capsule = 600 mg, By Mouth, Daily at bedtime Start Date: 05/07/22 Status: Ordered LORazepam 0.5 mg oral tablet TAKE 1 TABLET BY MOUTH two (2) times a day Start Date: 05/07/22 Status: Ordered Methadone = 120 mg, By Mouth, Daily, gets dose from methadone clinic., 0 Refills, Maintenance, 02/27/23 14:15:00 EDT, Tablet, Partial fill upon patient request if the prescription is for a schedule II opioid drug. Start Date: 02/27/23 Status: Ordered pantoprazole 40 mg oral delayed release tablet 1 tablet = 40 mg, By Mouth, Daily, # 90 tablet, 3 Refills, Maintenance, 02/16/23 10:45:00 EDT, EC Tablet, 173, cm, 01/21/23 11:36:00 EDT, Height, 93.18, kg, 08/12/22 0:40:00 EST, Dry Weight Start Date: 02/16/23 Status: Ordered rOPINIRole 0.5 mg oral tablet 1 tablet = 0.5 mg, By Mouth, Daily at bedtime, 1 to 3 hours before bedtime, # 90 tablet, 3 Refills,Maintenance, 02/16/23 10:45:00 EDT, Tablet, [facility] [id number], Partialfill upon patient request if the prescription is fo... Start Date: 02/16/23 Status: Ordered Ventolin HFA 108 mcg/inh inhalation aerosol with adapter 2 puffs, Inhalation, 4 times a day, PRN for wheezing, # 3 each, 3 Refills, Maintenance, 02/16/23 10:45:00 EDT, Aerosol, [facility] [id number], Partial fill upon patient request if the prescription is for a schedule II opioid d... Start Date: 02/16/23 Status: Ordered Vitamin D3 1000 intl units oral capsule 1 capsule = 25 mcg, By Mouth, Daily, # 90 capsule, 3 Refills, Maintenance, 02/16/23 10:45:00 EDT, Capsule, [facility] [id number], D/c vitamin high dosed, 173, cm, 01/21/23 11:36:00 EDT, Height, 93.18, kg, 08/12/22 0:40:00 EST,... Start Date: 02/16/23 Status: Ordered Problem List Condition Confirmation Course Effective Dates Status Health St atus Informant Latex allergy Confirmed Active Allergy to shellfish Confirmed Active Stroke Confirmed 09/2021 Active Chronic active hepatitis C - genotype 1a - steatohepatitis/spl enomegally Confirmed Active Constipation Confirmed Active Cryptococcal meningitis - 01/2019 Confirmed Active Depression - Olinda dawn, [facility] Confirmed Active Diastolic dysfunction 1 Confirmed 09/27/21 Active Testicular disorder - numbness of the left side of testical, intermittent Confirmed Active Hemorrhoid Confirmed Active History of CVA with residual deficit Confirmed Active HIV disease - 01/2019 Confirmed Active HTN (hypertension) Confirmed Active Erectile dysfunction Confirmed Active Hemiparesis of left nondominant side Confirmed Active Pulmonary nodule Confirmed Active Major depressive disorder, recurrent, mild Confirmed Active Mood disorder Confirmed Active Obese class I Confirmed Active 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 Impaired LV relaxation Social History Social History Type Response Smoking Status 10 or more cigarette s (1/2 pack or more)/day in last 30 days entered on: 12/05/21 Sex Patient Care team information Care Team Personnel Name: Jadiel Watson RN Position: [facility] ED RN W/OE and Tasks Member Role: Primary Care Nurse Name: Dede Mccloud RN Position: [facility] RN Member Role: Primary Care Nurse Name: Judy Gonzales RN Position: [facility] RN Member Role: Primary Care Nurse Name: Jake Moon Position: [facility] RN Supv Member Role: Primary Care Nurse Name: Enma Manriquez RN Position: [facility] AMB Nurse Member Role: Primary Care Nurse Name: Zuhair Lopez RN Position: [facility] RN Member Role: Primary Care Nurse Name: Edie Bob RN Position: [facility] RN Member Role: Primary Care Nurse Name: Lisbet Gardiner RN Position: [facility] RN Member Role: Primary Care Nurse Name: Namrata Prieto MD Position: [facility] Physician - Primary Care Member Role: PCP Address: Address: [address] [place] [id number]- Name: Carolina Valero RN Position: [facility] RN Member Role: Primary Care Nurse Name: Nishi San RN Position: [facility] RN Member Role: Primary Care Nurse Name: Micky Boyd RN Position: [facility] RN Member Role: Primary Care Nurse Name: Lauri Combs NP Position: Reference Physician Member Role: Primary Care Nurse Address: Address: [address] [place] [address] [address] [facility] [place] [address]- Name: Griselda Rand Position: [facility] RN Supv Member Role: Primary Care Nurse Care Team Related Persons Name: LUIS SAN Address: [place] [address] Name: BROOKE OWEN OR LAURA Address: home [address] [address] Name: KARYN OWEN Address: home [address] [place] [address] Name: DOMINGO LEONE Address: home [address] [place] [address]
--- OUTSIDE RECORDS SUMMARY | 2023-07-12 20:08 | XMS_ITS | Continuity of Care Document ---
Author Name Unknown Organization [facility] Address [address] [place] [address]- Care Team Providers Care Coping Machine Operator Name Role Phone Conner QUEEN, Namrata Agarwal Primary Care Physician [facility] Date(s): 02/12/21 - 03/14/21 [facility] [address] [place] [id number] Allergies, Adverse Reactions, Alerts Substance Reaction Severity Status shellfish Active Latex rash Active Suboxone migraine (PO), fevers (IM) A ctive Immunizations Given and Recorded Vaccine Date Status Refusal Reason influenza virus vaccine, inactivated 07/02/20 Give n influenza virus vaccine, inactivated 06/08/19 Give n Medications amLODIPine 10 mg oral tablet 10 mg, 1, tablet, By Mouth, Daily, # 30 tablet, Refills 5, Tot. Refills 5, Maintenance, 03/07/21 6:50:00 EDT, Route to Pharmacy Electronically, [place], [place] - [id number], 174, cm, 01/13/21 8:20:00 EDT, Height, 93, kg, 01/08/21 18:... Start Date: 03/07/21 Status: Ordered atovaquone 750 mg/5 mL oral suspension 10 mL = 1,500 mg, By Mouth, Daily, for 60 days, # 600 mL, 11 Refills, Acute 02/25/23 6:50:00 EDT, 03/07/21 6:50:00 EDT, Suspension, [place], [place] - [id number], Pls cancel bactrim prescription. Atovaquone to replace bactrim, 174, cm... Start Date: 03/07/21 Stop Date: 02/25/23 Status: Ordered Biktarvy oral tablet 1 tablet, By Mouth, Daily, for 30 days, # 30 tablet, 11 Refills, Hard Stop 05/23/21 16:35:00 EDT, 05/28/20 16:35:00 EDT, Tablet, [facility], [facility] [id number], 1 tablet By Mouth Daily,x30 days, 171, cm, 05/28/20 16:01:00 EDT, Height,... Start Date: 05/28/20 Stop Date: 05/23/21 Status: Ordered Colace sodium 100 mg oral capsule 100 mg, 1, capsule, By Mouth, 2 times a day, PRN, # 60 capsule, Refills 11, Tot. Refills 11, Maintenance, for constipation, 05/28/20 16:34:00 EDT, Route to Pharmacy Electronically, [facility], [facility] [id number], 171, cm, 05/28/20 16:0... Start Date: 05/28/20 Status: Ordered hydrocortisone 0.5% topical cream See Instructions, use sparingly on face, use on all other affected areas, # 28 Gm, 11 Refills, Maintenance, 03/07/21 6:50:00 EDT, [facility] [id number], use sparingly on face, use on all other affected areas, 174, cm, 01/13/21... Start Date: 03/07/21 Status: Ordered ketoconazole 2% topical shampoo 1 application, Topically, Daily, try daily for 5 days as a shampoo, # 120 mL, 11 Refills, Soft Stop, 03/07/21 6:51:00 EDT, Shampoo, [facility], [facility] [id number], 1 application Topically Daily,Instr:try daily for 5 days as a shampoo,... Start Date: 03/07/21 Status: Ordered lithium 300 mg oral capsule [...] opioid drug. Start Date: 03/07/21 Status: Ordered Mavyret 100 mg-40 mg oral tablet 3 tablet, By Mouth, Daily, with food, # 252 tablet, 0 Refills, Maintenance, 07/08/20 15:34:00 EST, Tablet, [facility], 3 tablet By Mouth Daily,x12 week(s),Instr:with food, 171, cm, 07/08/20 13:19:00 EST, Height, 59.5, kg, 12/29/19 15:... Start Date: 07/08/20 Stop Date: 09/30/20 Status: Ordered Methadone = 55 mg, By Mouth, Daily, 0 Refills, Maintenance, 05/28/20 16:11:00 EDT, Partial fill upon patient request Start Date: 05/28/20 Status: Ordered mirtazepam - next script from psych mirtazepam - next script from psych, See Instructions, # 1 each, Refills 0, Tot. Refills 0, Maintenance, patient has psych prescriber, pls ask for mirtazipam to be prescribed by psych, 03/07/21 6:57:00 EDT, Supply, 174, cm, 01/13/21 8:20:00 EDT, [place]... Start Date: 03/07/21 Status: Ordered multivitamin with minerals Calcium and Magnesium oral tablet 1 tablet, By Mouth, Daily, # 30 tablet, 11 Refills, Maintenance, 03/07/21 6:51:00 EDT, Tablet, [facility], [place] - [id number], 1 tablet By Mouth Daily, 174, cm, 01/13/21 8:20:00 EDT, Height, 93, kg, 01/08/21 18:17:00 EDT, Dry Weight Start Date: 03/07/21 Status: Ordered Narcan 4 mg/0.1 mL nasal spray See Instructions, 4 mg Once may repeat every 2 to 3 minutes until patient responds, # 2 each, 1 Refills, Soft Stop, 08/24/19 9:41:00 EST, [place], [place] -, MAMADOU García to sampler pickup for Pt., 170, cm, 08/24/19 9:21:00 EST, Height, 66.36,... Start Date: 08/24/19 Status: Ordered ondansetron 4 mg oral tablet, disintegrating 1 tablet = 4 mg, By Mouth, Every 8 hours, PRN as needed for nausea/vomiting, # 12 tablet, 0 Refills, Maintenance, 12/08/20 19:19:00 EDT, DIS Tablet, [facility] [id number], Partial fill upon patient request if the prescription... Start Date: 12/08/20 Status: Ordered pantoprazole 40 mg oral delayed [...] Refills, Maintenance, 11/28/19 9:42:00 EDT, REC Powder, [facility], 17 Gm By Mouth 2 times a day,x30 days,PRN:Constipation,Instr:... Start Date: 11/28/19 Stop Date: 03/27/20 Status: Ordered QUEtiapine 25 mg oral tablet 25 mg, 1, tablet, By Mouth, Daily at bedtime, # 30 tablet, Refills 0, Maintenance, 03/07/21 6:54:00EDT, Partial fill upon patient request if the prescription is for a schedule II opioid drug. Start Date: 03/07/21 Status: Ordered sildenafil 100 mg oral tablet 1 tablet = 100 mg, By Mouth, Daily, 1 hour before sexual activity, # 20 tablet, 11 Refills, Maintenance, 03/07/21 6:49:00 EDT, Tablet, [facility] [id number], Partial fill upon patient request if the prescription is for a sched... 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 Sex Male
--- OUTSIDE RECORDS SUMMARY | 2023-07-12 20:08 | XMS_ITS | Continuity of Care Document ---
Author Name Unknown Organization [facility] Address [address] [place] [address]- Care Team Providers Care Power Equipment Technology Instructor Name Role Phone Conner QUEEN, Namrata Agarwal Primary Care Physician [place] [facility] [place]): [place]/15/23 [facility] [address] [place] [id number] Attending Physician: Abdullahi Christine MD Admitting Physician: Abdullahi Christine MD Allergies, Adverse Reactions, Alerts Substance Reaction [...] each, Refills 11, Tot. Refills 11, Maintenance, 07/20/22 8:46:00 EST, Powder, Route to Pharmacy Electronically, [id number], [facility] - [place]... Start Date: 07/20/22 Stop Date: 07/15/23 Status: Ordered amLODIPine 10 mg oral tablet 10 mg, 1, tablet, By Mouth, Daily, # 30 tablet, Refills 11, Tot. Refills 11, Maintenance, 07/20/22 8:43:00 EST, Route to Pharmacy Electronically, [facility] [id number], 173, cm, 05/10/22 20:46:00 EDT, Height, 95.5, kg, 2... Start Date: 07/20/22 Status: Ordered aspirin 81 mg oral tablet, chewable 81 mg, 1, tablet, By Mouth, Daily, # 30 tablet, Refills 11, Tot. Refills 11, Maintenance, 07/20/22 8:43:00 EST, Route to Pharmacy Electronically, [facility] [id number], Partial fill upon patient request if the prescription is... Start Date: 07/20/22 Stop Date: 11/12/23 Status: Ordered atorvastatin 80 mg oral tablet 1 tablet = 80 mg, By Mouth, Daily, # 30 tablet, 11 Refills, Maintenance, 07/20/22 8:43:00 EST, Tablet, [facility] [id number], Partial fill upon patient request if the prescription is for a schedule II opioid drug., 173, cm, 09... Start Date: 07/20/22 Status: Ordered Biktarvy oral tablet 1 tablet, By Mouth, Daily, must get appt and labs for refills, # 30 tablet, 0 Refills, Maintenance,12/16/22 19:18:00 EDT, [facility] [id number], 30, 1 tablet By Mouth Daily,Instr:must get appt and labs for refills, 173, cm, 0... Start Date: 12/16/22 Status: Ordered bisacodyl 10 mg rectal suppository unwrap AND INSERT 1 SUPPOSITORY RECTALLY ONCE DAILY NEEDED FOR CONSTIPATION Start Date: 05/07/22 Status: Ordered Colace sodium 100 mg oral capsule 100 mg, 1, capsule, By Mouth, 2 times a day, PRN, Patient MUST come for labs/appt for refils, # 60 capsule, Refills 0, Tot. Refills 0, Maintenance, for constipation, 12/24/22 19:14:00 EDT, Route to Pharmacy Electronically, [facility]... Start Date: 12/24/22 Status: Ordered Crutches See Instructions, # 1 [...] 1 Refills, Soft Stop, 03/05/22 10:37:00 EDT, [facility] [place], [place] - [id number], Partial fill upon patient request if the prescriptio... Start Date: 03/05/22 Status: Ordered fluticasone-salmeterol 250 mcg-50 mcg inhalation powder 1, puffs, Inhalation, 2 times a day, patient needs labs and appt before more refills, # 60 each, Refills 0, Tot. Refills 0, Maintenance, 12/16/22 19:27:00 EDT, Powder, Route to Pharmacy Electronically, [id number], [facility]... Start Date: 12/16/22 Status: Ordered home COVID tests home COVID tests, See Instructions, # 3 each, Refills 11, Tot. Refills 11, Maintenance, home COVID tests, 09/25/22 16:51:00 EST, Supply, 173, cm, 08/12/22 0:40:00 EST, Height, 93.18, kg, 08/12/22 0:40:00 EST, Dry Weight Start Date: 09/25/22 Status: Ordered Incruse Ellipta 62.5 mcg/inh inhalation powder See Instructions, INHALE 1 PUFF BY MOUTH INTO THE lungs EVERY 24 HOURS. doses should be taken AT least 24 HOURS APART, # 30 Unknown, 5 Refills, Maintenance, 09/02/22 20:23:00 EST, [facility], 173, cm, 08/12/22 0:40:00 EST, Height, 93.18, kg, 12/0... Start Date: 09/02/22 Status: Ordered ketoconazole 2% topical cream 1 application, Topically, Daily, # 30 Gm, 11 Refills, Maintenance, 04/20/22 9:23:00 EDT, [facility], [facility] [id number], 1 application Topically Daily, 173, cm, 12/05/21 17:38:00 EDT,Height, 127, kg, 12/05/21 17:38:00 EDT, Dry Weight Start Date: 04/20/22 Status: Ordered Lidoderm 5% film 1 patch, Topically, Daily, # 30 patch, 11 Refills, Maintenance, 03/19/22 21:12:00 EDT, [facility] [id number], Partial fill upon patient request if the prescription is for a schedule II opioid drug., 1 patch Topically Daily, 17... Start Date: 03/19/22 Status: Ordered lithium 300 mg oral capsule TAKE THREE CAPSULES BY MOUTH ONCE DAILY AT BEDTIME Start Date: 05/07/22 Status: Ordered LORazepam 0.5 mg oral tablet TAKE 1 TABLET BY MOUTH two (2) times a day Start Date: 05/07/22 Status: Ordered multivitamin with minerals Calcium and Magnesium oral tablet 1 tablet, By Mouth, Daily, # 30 tablet, 11 Refills, Maintenance, 07/20/22 8:43:00 EST, Tablet, [facility], [facility] [id number], 1 tablet By Mouth Daily, 173, cm, 05/10/22 20:46:00 EDT,Height, 95.5, kg, 05/10/22 20:46:00 EDT, Dry Weight Start Date: 07/20/22 Status: Ordered Narcan 4 mg/0.1 mL nasal spray See Instructions, 4 mg Once may repeat every 2 to 3 minutes until patient responds, # 2 each, 3 Refills, Soft Stop, 03/05/22 10:07:00 EDT, [facility], [facility] [id number], 173, cm, 12/05/21 17:38:00 EDT, Height, 127, kg, 12/05/21 17:38... Start Date: 03/05/22 Status: Ordered pantoprazole 40 mg oral delayed release tablet 1 tablet = 40 mg, By Mouth, Daily, # 30 tablet, 11 Refills, Maintenance, 07/20/22 8:43:00 EST, EC Tablet, 173, cm, 05/10/22 20:46:00 EDT, Height, 95.5, kg, 05/10/22 20:46:00 EDT, Dry Weight Start Date: 07/20/22 Status: Ordered permethrin 5% topical cream 1 application, Topically, Once, Apply to skin from head to soles. Leave on 8-10 hours then wash off; repeat in 14 days;, # 60 mL, 1 Refills, Soft Stop, 12/24/22 11:37:00 EDT, Lotion, [facility] [id number], Partial fill upon pa... Start Date: 12/24/22 Status: Ordered polyethylene glycol 3350 oral powder for reconstitution = 17 Gm, By Mouth, 2 times a day, PRN Constipation, dissolve in water before taking, # 527 Gm, 3 Refills, Maintenance, 12/02/21 16:55:00 EDT, REC Powder, [facility] [id number], 17 Gm By Mouth 2 times a day,x30 days,PRN:Constip... Start Date: 12/02/21 Stop Date: 04/01/22 Status: Ordered rOPINIRole 0.5 mg oral tablet 1 tablet = 0.5 mg, By Mouth, Daily at bedtime, 1 to 3 hours before bedtime, # 30 tablet, 11 Refills, Maintenance, 07/20/22 8:43:00 EST, Tablet, [facility] [id number], Partialfill upon patient request if the prescription is fo... Start Date: 07/20/22 Status: Ordered Senna 8.6 mg oral tablet 1 or 2 tablets, By Mouth, Daily at bedtime, PRN, Must make appt and get labs for refills, # 180 tablet, Refills 0, Tot. Refills 0, Maintenance, Constipation, 12/16/22 19:14:00 EDT, Route to Pharmacy Electronically, [place], [place] -... Start Date: 12/16/22 Status: Ordered sildenafil 100 mg oral tablet 1 tablet = 100 mg, By Mouth, Daily, 1 hour before sexual activity, # 20 tablet, 11 Refills, Maintenance, 04/20/22 9:24:00 EDT, Tablet, [facility] [id number], disreguard last script for 0.5 tab, 173, cm, 12/05/21 17:38:00 EDT,... Start Date: 04/20/22 Status: Ordered varenicline 1mg tablet 1 tablet = 1 mg, By Mouth, Daily, 0.5 tab daily x 3 days then 0.5 tab BID x 3 days then 1 tab BID, # 30 tablet, 4 Refills, Maintenance, 09/04/22 15:20:00 EST, Tablet, [facility] [id number], Partial fill upon patient request if... Start Date: 09/04/22 Status: Ordered Ventolin HFA 108 mcg/inh inhalation aerosol with adapter 2 puffs, Inhalation, 4 times a day, PRN for wheezing, must get appt and labs for refills, # 3 each,0 Refills, Maintenance, 12/16/22 19:15:00 EDT, Aerosol, [facility] [id number], Partial fill upon patient request if the prescr... Start Date: 12/16/22 Status: Ordered Vitamin D3 1000 intl units oral capsule 1 capsule = 25 mcg, By Mouth, Daily, # 30 capsule, 11 Refills, Maintenance, 06/04/22 17:32:00 EDT, Capsule, [facility] [id number], D/c vitamin high dosed, 173, cm, 05/10/22 20:46:00 EDT, Height, 95.5, kg, 05/10/22 20:46:00 EDT... Start Date: 06/04/22 Status: Ordered Wheeled Walker with seat Wheeled Walker with seat, See Instructions, # 1 each, Refills 0, Tot. Refills 0, Maintenance, Use as directed Dx: Hemiparesis of left side (G81.94); Reduced mobility (Z74.0); history of falls (Z91.81); ht: 173cm; wt: 95.5 kg Duration: Lifetime, 04/... 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 Impaired LV relaxation Social History Social History Type Response Smoking Status 10 or more cigarette s (1/2 pack or more)/day in last 30 days entered on: 12/05/21 Sex Patient Care team information Care Team Personnel Name: Jadiel Watson RN Position: [facility] ED RN W/OE and Tasks Member Role: Primary Care Nurse Name: Dede Mccloud RN Position: [facility] RN Member Role: Primary Care Nurse Name: Judy Gonzales RN Position: [facility] RN Member Role: Primary Care Nurse Name: Enma Manriquez RN Position: [facility] RN Member Role: Primary Care Nurse Name: Zuhair Lopez RN Position: [facility] RN Member Role: Primary Care Nurse Name: Edie Bob RN Position: [facility] RN Member Role: Primary Care Nurse Name: Lisbet Gardiner RN Position: [facility] RN Member Role: Primary Care Nurse Name: Namrata Prieto MD Position: [facility] Primary Care Physician Member Role: PCP Address: Address: [address] [place] [address], -[facility] [address] Name: Carolina Valero RN Position: [facility] RN Member Role: Primary Care Nurse Name: Nishi San RN Position: [facility] RN Member Role: Primary Care Nurse Name: Micky Boyd RN Position: [facility] RN Member Role: Primary Care Nurse Name: Lauri Combs NP Position: Reference Physician Member Role: Primary Care Nurse Address: Address: [address] Clinical [facility] [place] [address]- [place] Care Team Related Persons Name: JASWINDER LUIS Address: [place] [address] Name: BROOKE OWEN Address: home [address] [address] Name: KARYN OWEN Address: home [address] [place] [address] Name: DOMINGO LEONE Address: home [address] [place] [address]
--- OUTSIDE RECORDS SUMMARY | 2023-07-12 20:08 | XMS_ITS | Continuity of Care Document ---
Author Name Unknown Organization [facility] y Address [address] [place] [address]- Care Team Providers Care Pipe Inspector Name Role Phone Long ASSEMBLY MACHINE SET UP MECHANIC, Giovanna Bernard Primary Care Physician [place] [facility] [place]/20/20 [facility] [address] [place] [address]- Attending Physician: Namrata Prieto MD Admitting Physician: Namrata Prieto MD Allergies, Adverse Reactions, Alerts Substance Reaction Severity Status shellfish Active Latex rash Active Immunizations Given and Recorded Vaccine Date Status Refusal Reason influenza virus vaccine, inactivated 06/08/19 Give n Medications amLODIPine 5 mg oral tablet 5 mg, 1, tablet, By Mouth, Daily, # 30 tablet, Refills 5, Tot. Refills 5, Maintenance, 11/28/19 9:43:00 EDT, Route to Pharmacy Electronically, [facility] [place], [place] -, 172, cm, 09/26/19 8:57:00 EST, Height, 66.3, kg, 09/11/19 13:26:00 EST,... Start Date: 11/28/19 Stop Date: 05/26/20 Status: Ordered atovaquone 750 mg/5 mL oral suspension 10 mL = 1,500 mg, By Mouth, Daily, for 60 days, # 600 mL, 5 Refills, Acute 11/22/20 9:44:00 EDT, 11/28/19 9:44:00 EDT, Suspension, [facility] [place], [place] -, Pls cancel bactrim prescription. Atovaquone to replace bactrim, 172, cm, 09/26/19 8... Start Date: 11/28/19 Stop Date: 11/22/20 Status: Ordered Biktarvy oral tablet 1 tablet, By Mouth, Daily, # 30 tablet, 5 Refills, Maintenance, 08/24/19 9:40:00 EST, Tablet, [place], [place] -, 1 tablet By Mouth Daily,x30 days, 170, cm, 08/24/19 9:21:00 EST, Height, 66.36, kg, 03/10/19 16:51:00 EDT, Dry Weight Start Date: 08/24/19 Stop Date: 02/20/20 Status: Ordered Colace sodium 100 mg oral capsule 100 mg, 1, capsule, By Mouth, 2 times a day, PRN, # 20 capsule, Refills 0, Tot. Refills 0, Maintenance, for constipation, 12/29/19 16:19:00 EDT, Route to Pharmacy Electronically, [place], [place] -, 171, cm, 12/29/19 15:28:00 EDT, Hei... Start Date: 12/29/19 Status: Ordered docusate sodium 100 mg oral capsule 100 mg, 1, capsule, By Mouth, 2 times a day, PRN, # 60 capsule, Refills 0, Tot. Refills 0, Maintenance, for constipation, 09/26/19 12:05:00 EST, Route to Pharmacy Electronically, [place], [place] -, 172, cm, 09/26/19 8:57:00 EST, Heig... Start Date: 09/26/19 Status: Ordered gabapentin 100 mg oral capsule 200 mg, 2, capsule, By Mouth, 3 times a day, # 180 capsule, Refills 3, Tot. Refills 3, Maintenance,11/28/19 9:44:00 EDT, Route to Pharmacy Electronically, [place], [place] -, 172, cm, 09/26/19 8:57:00 EST, Height, 66.3, kg, 09/11/19... Start Date: 11/28/19 Stop Date: 03/27/20 Status: Ordered hydrocortisone 0.5% topical cream See Instructions, apply in a thin film to the hands and rub in gently 3 times a day for 5 days, # 28 Gm, 0 Refills, Acute 12/20/20 12:12:00 EDT, 12/21/19 11:57:00 EDT, [place], [place] -, apply in a thin film to the hands and rub in g... Start Date: 12/21/19 Stop Date: 12/20/20 Status: Ordered ketoconazole 2% topical shampoo 1 application, Topically, Daily, try daily for 5 days as a shampoo, # 120 mL, 3 Refills, Soft Stop,12/21/19 11:58:00 EDT, Shampoo, [place], [place] -, 1 application Topically Daily,Instr:try daily for 5 days as a shampoo, 172, cm, 01... Start Date: 12/21/19 Status: Ordered lithium 300 mg oral capsule 2 capsule = 600 mg, By Mouth, Daily at bedtime, # 60 capsule, 3 Refills, Maintenance, 11/28/19 9:41:00 EDT, [place], [place] -, 172, cm, 09/26/19 8:57:00 EST, Height, 66.3, kg, 09/11/19 13:26:00 EST, Dry Weight Start Date: 11/28/19 Stop Date: 03/27/20 Status: Ordered LORazepam 0.5 mg oral tablet 1 tablet = 0.5 mg, By Mouth, 2 times a day, PRN Anxiety, # 60 tablet, 3 Refills, Maintenance, 11/30/19 5:56:00 EDT, Tablet, Dry Weight Start Date: 11/30/19 Stop Date: 03/29/20 Status: Ordered methadone 10 mg oral tablet = 25 mg, By Mouth, Daily, 0 Refills, Maintenance, 01/17/19 10:36:18 EDT, Tablet Start Date: 01/17/19 Status: Ordered mirtazapine 30 mg oral tablet 1 tablet = 30 mg, By Mouth, Daily at bedtime, # 30 tablet, 5 Refills, Maintenance, 11/28/19 9:41:00EDT, Tablet, [place], [place] -, 172, cm, 09/26/19 8:57:00 EST, Height, 66.3, kg, 09/11/19 13:26:00 EST, Dry Weight Start Date: 11/28/19 Stop Date: 05/26/20 Status: Ordered multivitamin with minerals Calcium and Magnesium oral tablet 1 tablet, By Mouth, Daily, # 30 tablet, 5 Refills, Maintenance, 09/26/19 12:05:00 EST, Tablet, [place], [place] -, 1 tablet By Mouth Daily,x30 days, 172, cm, 09/26/19 8:57:00 EST, Height, 66.3, kg, 09/11/19 13:26:00 EST, Dry Weight Start Date: 09/26/19 Stop Date: 03/24/20 Status: Ordered Narcan 4 mg/0.1 mL nasal spray See Instructions, 4 mg Once may repeat every 2 to 3 minutes until patient responds, # 2 each, 1 Refills, Soft Stop, 08/24/19 9:41:00 EST, [place], [place] -, MAMADOU García to pick up worker for Pt., 170, cm, 08/24/19 9:21:00 [...] Refills, Maintenance, 11/28/19 9:42:00 EDT, REC Powder, [place], [place] -, 17 Gm By Mouth 2 times a day,x30 days,PRN:Constipation,Instr:... Start Date: 11/28/19 Stop Date: 03/27/20 Status: Ordered triamcinolone 0.1% topical cream 1 application, Topically, 3 times a day, for 14 days, # 60 Gm, 1 Refills, Acute 02/01/20 14:58:00 EDT, 01/04/20 14:58:00 EDT, Cream, [place], [place] -, 1 application Topically 3 times a day,x14 days, 171, cm, 12/29/19 15:28:00 EDT, H... Start Date: 01/04/20 Stop Date: 02/01/20 Status: Ordered Problem List Condition Effective Dates [...]
--- OUTSIDE RECORDS SUMMARY | 2023-07-12 20:08 | XMS_ITS | Continuity of Care Document ---
Author Name Unknown Organization [facility] Address [address] [place] [address]- Care Team Providers Care Job Molder Name Role Phone Conner QUEEN, Namrata Agarwal Primary Care Physician Encounter [facility] Date(s): 05/06/20 - 06/05/20 [facility] [address] [place] [id number]- [facility] Allergies, Adverse Reactions, Alerts Substance Reaction Severity Status shellfish Active Latex rash Active Suboxone migraine (PO), fevers (IM) A ctive Immunizations Given and Recorded Vaccine Date Status Refusal Reason influenza virus vaccine, inactivated 06/08/19 Give n Medications amLODIPine 10 mg oral tablet 10 mg, 1, tablet, By Mouth, Daily, # 30 tablet, Refills 4, Tot. Refills 4, Maintenance, 05/28/20 16:31:00 EDT, Route to Pharmacy Electronically, [facility] [id number], 171, cm, 05/28/20 16:01:00 EDT, Height, 59.5, kg, 12/29/19... Start Date: 05/28/20 Status: Ordered atovaquone 750 mg/5 mL oral suspension 10 mL = 1,500 mg, By Mouth, Daily, for 60 days, # 600 mL, 11 Refills, Acute 05/18/22 16:35:00 EDT, 05/28/20 16:35:00 EDT, Suspension, [facility] [id number], Pls cancel bactrim prescription. Atovaquone to replace bactrim, 171,... Start Date: 05/28/20 Stop Date: 05/18/22 Status: Ordered Biktarvy oral tablet 1 tablet, By Mouth, Daily, for 30 days, # 30 tablet, 11 Refills, Hard Stop 05/23/21 16:35:00 EDT, 05/28/20 16:35:00 EDT, Tablet, [facility] [id number], 1 tablet By Mouth Daily,x30 days, 171, cm, 05/28/20 16:01:00 EDT, Height,... Start Date: 05/28/20 Stop Date: 05/23/21 Status: Ordered Colace sodium 100 mg oral capsule 100 mg, 1, capsule, By Mouth, 2 times a day, PRN, # 60 capsule, Refills 11, Tot. Refills 11, Maintenance, for constipation, 05/28/20 16:34:00 EDT, Route to Pharmacy Electronically, [facility] [id number], 171, cm, 05/28/20 16:0... Start Date: 05/28/20 Status: Ordered gabapentin 100 mg oral capsule 200 mg, 2, capsule, By Mouth, 3 times a day, # 180 capsule, Refills 1, Tot. Refills 1, Maintenance,05/07/20 16:16:00 EDT, Route to Pharmacy Electronically, [facility] [id number], 171, cm, 03/26/20 8:54:00 EDT, Height, 59.5, k... Start Date: 05/07/20 Stop Date: 09/04/20 Status: Ordered hydrocortisone 0.5% topical cream See Instructions, use sparingly on face, use on all other affected areas, # 28 Gm, 11 Refills, Maintenance, 05/28/20 16:37:00 EDT, [facility] [id number], use sparingly on face, use on all other affected areas, 171, cm, 2... Start Date: 05/28/20 Status: Ordered influenza virus vaccine, inactivated adjuvanted preservative-free quadrivalent intramuscular susp See Instructions, none, # 1 each, 0 Refills, Maintenance, 05/30/20 9:27:00 EDT, [facility], none, 171, cm, 05/28/20 16:01:00 EDT, Height, 59.5, kg, 12/29/19 15:28:00 EDT, Dry Weight Start Date: 05/30/20 Status: Ordered ketoconazole 2% topical cream 1 application, Topically, 2 times a day, for 28 days, use on the face, # 60 Gm, 11 Refills, Acute 04/29/21 16:40:00 EDT, 05/28/20 16:40:00 EDT, Cream, [facility] [id number], 1 application Topically 2 times a day,x28 days,Instr... Start Date: 05/28/20 Stop Date: 04/29/21 Status: Ordered ketoconazole 2% topical shampoo 1 application, Topically, Daily, try daily for 5 days as a shampoo, # 120 mL, 11 Refills, Soft Stop, 05/28/20 16:37:00 EDT, Shampoo, [facility] [id number], 1 application Topically Daily,Instr:try daily for 5 days as a shampoo,... Start Date: 05/28/20 Status: Ordered lithium 300 mg oral capsule 2 capsule = 600 mg, By Mouth, 2 times a day, # 120 capsule, 1 Refills, Maintenance, 05/07/20 16:16:00 EDT, [facility] [id number], Increase in dose per Psychiatry, 171, cm, 03/26/20 8:54:00 EDT, Height, 59.5, kg, 12/29/19 15:28... Start Date: 05/07/20 Status: Ordered LORazepam 0.5 mg oral tablet 1 tablet = 0.5 mg, By Mouth, 2 times a day, PRN Anxiety, # 60 tablet, 1 Refills, Maintenance, 05/07/20 16:16:00 EDT, Tablet, [facility] [id number], 171, cm, 03/26/20 8:54:00 EDT, Height, 59.5, kg, 12/29/19 15:28:00 EDT, Dry We... Start Date: 05/07/20 Stop Date: 08/05/20 Status: Ordered Methadone = 55 mg, By Mouth, Daily, 0 Refills, Maintenance, 05/28/20 16:11:00 EDT, Partial fill upon patient request Start Date: 05/28/20 Status: Ordered mirtazapine 30 mg oral tablet 1 tablet = 30 mg, By Mouth, Daily at bedtime, # 30 tablet, 5 Refills, Maintenance, 05/28/20 16:35:00 EDT, Tablet, [facility] [id number], 171, cm, 05/28/20 16:01:00 EDT, Height, 59.5, kg, 12/29/19 15:28:00 EDT, Dry Weight Start Date: 05/28/20 Stop Date: 11/24/20 Status: Ordered multivitamin with minerals Calcium and Magnesium oral tablet 1 tablet, By Mouth, Daily, # 30 tablet, 11 Refills, Maintenance, 05/28/20 16:35:00 EDT, Tablet, [facility] [id number], 1 tablet By Mouth Daily, 171, cm, 05/28/20 16:01:00 EDT, Height, 59.5, kg, 12/29/19 15:28:00 EDT, Dry Weight Start Date: 05/28/20 Stop Date: 05/23/21 Status: Ordered Narcan 4 mg/0.1 mL nasal spray See Instructions, 4 mg Once may repeat every 2 to 3 minutes until patient responds, # 2 each, 1 Refills, Soft Stop, 08/24/19 9:41:00 EST, [place], [place] -, 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 Start Date: 08/24/19 Status: Ordered Nicotine 2 mg gum 1 each = 2 mg, Chew, Every 2 hours, PRN as needed for smoking cessation, # 160 each, 3 Refills, Maintenance, 05/28/20 16:51:00 EDT, Gum, [facility] [id number], 171, cm, 05/28/20 16:01:00 EDT, Height, 59.5, kg, 12/29/19 15:28:0... Start Date: 05/28/20 Status: Ordered Nicotine 7 mg/24 hour patch 1 patch, Topically, Daily, for 30 days, # 30 patch, 0 Refills, Acute 06/27/20 16:51:00 EDT, 05/28/20 16:51:00 EDT, Patch, [place], [place] - [id number], 1 patch Topically Daily,x30 days, 171, cm, 05/28/20 16:01:00 EDT, Height, 59.5, k... Start Date: 05/28/20 Stop Date: 06/27/20 Status: Ordered pantoprazole 40 mg oral delayed release tablet 1 tablet = 40 mg, By Mouth, Daily, # 30 tablet, 11 Refills, Maintenance, 05/28/20 16:35:00 EDT, EC Tablet, 171, cm, 05/28/20 16:01:00 EDT, Height, 59.5, kg, 12/29/19 15:28:00 EDT, Dry Weight Start Date: 05/28/20 Stop Date: 05/23/21 Status: Ordered pneumococcal 13-valent conjugate vaccine intramuscular suspension 0.5 mL, Intramuscular, Once, # 1 each, 0 Refills, Soft Stop, 05/30/20 9:25:00 EDT, Suspension, [facility], 0.5 mL Intramuscular Once, 171, cm, 05/28/20 16:01:00 EDT, Height, 59.5, kg,12/29/19 15:28:00 EDT, Dry Weight Start Date: 05/30/20 Status: Ordered polyethylene glycol 3350 oral powder for reconstitution = 17 Gm, By Mouth, 2 times a day, PRN Constipation, dissolve in water before taking, # 527 Gm, 3 Refills, Maintenance, 11/28/19 9:42:00 EDT, REC Powder, [place], [place] -, 17 Gm By Mouth 2 times a day,x30 days,PRN:Constipation,Instr:... Start Date: 11/28/19 Stop Date: 03/27/20 Status: Ordered SEROquel 25 mg oral tablet 25 mg, 1, tablet, By Mouth, Daily at bedtime, # 30 tablet, Refills 2, Tot. Refills 2, Maintenance, 03/26/20 9:29:00 EDT, Route to Pharmacy Electronically, [facility] [place] -, 171, cm, 03/26/20 8:54:00 EDT, Height, 59.5, kg, 12/29/19 1... Start Date: 03/26/20 Stop Date: 06/24/20 Status: Ordered Viagra 50 mg oral tablet 1 tablet = 50 mg, By Mouth, Daily, PRN sexual activity, 1 hour before sexual activity, # 10 tablet,11 Refills, Maintenance, 05/29/20 20:14:00 EDT, Tablet, [facility] [place], [place] - [id number], 171, cm, 05/28/20 16:01:00 EDT, Height, 59.5, k... 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 Sex
--- OUTSIDE RECORDS SUMMARY | 2023-07-12 20:08 | XMS_ITS | Continuity of Care Document ---
Author Name Unknown Organization [facility] Address [address] [place] [address]- Care Team Providers Care [employer] Name Role Phone Namrata Prieto MD Primary Care Physician Encounter [facility] [place] Date(s[place] 12/11/21 - 01/10/22 [facility] [address] [place] [id number] Attending Physician: Admtr, [id number] Admitting Physician: Admtr, [id number] Referring Physician: Admtr, [id number] Allergies, Adverse Reactions, [...] 8:29:00 EDT, Powder, Route to Pharmacy Electronically, [id number], [facility] - Spr... Start Date: 01/07/22 Stop Date: 01/02/23 Status: Ordered Albuterol (Eqv-ProAir HFA) 90 mcg/inh inhalation aerosol 2 puffs, Inhalation, Every 6 hours, # 8.5 Gm, 11 Refills, 12/20/21 12:34:00 EST, [facility] [id number], 25, 2 puffs Inhalation Every 6 hours, 173, cm, 08/25/21 12:31:00 EST, Height, 84, kg, 04/19/21 2:36:00 EDT, Dry Weight Start Date: 08/25/21 Status: Ordered amLODIPine 10 mg oral tablet 10 mg, 1, tablet, By Mouth, Daily, # 30 tablet, Refills 11, Tot. Refills 11, Maintenance, 08/27/21 16:46:00 EST, Route to Pharmacy Electronically, [facility] [id number], 173,cm, 08/25/21 12:31:00 EST, Height, 84, kg, 04/19/21... Start Date: 08/27/21 Status: Ordered aspirin 81 mg oral tablet, chewable 81 mg, 1, tablet, By Mouth, Daily, # 120 tablet, Refills 3, Tot. Refills 3, Maintenance, 10/02/21 11:47:00 EST, Route to Pharmacy Electronically, [facility] [id number], Partial fill upon patient request if the prescription is... Start Date: 10/02/21 Stop Date: 01/25/23 Status: Ordered atorvastatin 80 mg oral tablet 1 tablet = 80 mg, By Mouth, Daily, # 30 tablet, 11 Refills, Maintenance, 11/07/21 14:34:00 EST, Tablet, [place], [place] - [id number], Partial fill upon patient request if the prescription is for a schedule II opioid drug., 170, cm, 0... Start Date: 11/07/21 Status: Ordered atovaquone 750 mg/5 mL oral suspension 10 mL = 1,500 mg, By Mouth, Daily, for 60 days, # 600 mL, 11 Refills, Acute 10/28/23 14:35:00 EST, 11/07/21 14:35:00 EST, Suspension, [place], [place] - [id number], Pls cancel bactrim prescription. Atovaquone to replace bactrim, 170,... 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 Refills 11, Maintenance, for constipation, 12/02/21 16:54:00 EDT, Route to Pharmacy Electronically, [facility] [place], [place] - [id number], Partial fill upon pilar... Start Date: 12/02/21 Status: Ordered Compression Stockings See Instructions, # 2 each, Maintenance, Surgical, Knee Length 30-40 mm Hg Use As Indicated Dx: CVAw/Left Sided Hemiparesis (I69.354); Reduced Mobility (Z74.9) Duration: Lifetime, 11/21/21 10:15:00 EDT, Supply Start Date: 11/21/21 Status: Ordered docusate sodium 100 mg oral capsule 1 capsule, By Mouth, 2 times a day, PRN NEEDED FOR CONSTIPATION, # 60 each, 2 Refills, [facility], 170, cm, 10/10/21 13:45:00 EST, Height, 110, kg, 09/29/21 21:14:00 EST, Dry Weight Start Date: 12/01/21 Status: Ordered hydrocortisone 0.5% topical cream See Instructions, use sparingly on face, use on all other affected areas, # 28 Gm, 11 Refills, Maintenance, 03/07/21 6:50:00 EDT, [facility] [id number], use sparingly on face, use on all other affected areas, 174, cm, 01/13/21... Start Date: 03/07/21 Status: Ordered Incruse Ellipta 62.5 mcg/inh inhalation powder 1 puffs, Inhalation, Every 24 hours, doses should be taken AT least 24 HOURS APART, # 30 Unknown, 11 Refills, 08/25/21 12:34:00 EST, [facility] [id number], 173, cm, 08/25/21 12:31:00 EST, Height, 84, kg, 04/19/21 2:36:00 EDT,... Start Date: 08/25/21 Status: Ordered ketoconazole 2% topical cream 1 application, Topically, Daily, # 30 Gm, 11 Refills, Maintenance, 12/02/21 16:56:00 EDT, [facility] [id number], 1 application Topically Daily, 170, cm, 10/10/21 13:45:00 EST, Height, 110, kg, 09/29/21 21:14:00 EST, Dry Weight Start Date: 12/02/21 Status: Ordered lithium 300 mg oral capsule [...] 0 Refills, Maintenance, 11/11/21 17:22:00 EST, Tablet, [facility] [id number], 170, cm, 10/10/21 13:45... 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 Start Date: 08/24/19 Status: Ordered Nicotine 2 mg gum 1 each = 2 mg, Chew, Every 2 hours, PRN as needed for smoking cessation, for 4 week(s), # 160 each,11 Refills, Acute 09/11/22 12:53:00 EST, 10/10/21 12:53:00 EST, Gum, [facility] [id number], Partial fill upon patient request... Start Date: [...] Refills, Maintenance, 08/21/21 13:33:00 EST, DIS Tablet, [facility] [id number], Partial fill upon patient request if the prescription... Start Date: 08/21/21 Status: Ordered pantoprazole 40 mg oral delayed release tablet 1 tablet = 40 mg, By Mouth, Daily, # 30 tablet, 11 Refills, Maintenance, 12/15/21 6:32:00 EDT, EC Tablet, 173, cm, 12/05/21 17:38:00 EDT, Height, 127, kg, 12/05/21 17:38:00 EDT, Dry Weight Start Date: 12/15/21 Status: Ordered Physican Therapy Physican Therapy, See Instructions, # 1 each, Refills 0, Tot. Refills 0, Maintenance, Dx: Acute Parietal and Frontal lobe CVA, 10/02/21 11:49:00 EST, Supply Start Date: 10/02/21 Status: Ordered Plavix 75 mg oral tablet 75 mg, 1, tablet, By Mouth, Daily, # 90 tablet, Refills 0, Tot. Refills 0, Maintenance, 10/02/21 11:47:00 EST, Route to Pharmacy Electronically, [facility] [id number], Partial fill upon patient request if the prescription is f... Start Date: 10/02/21 Stop Date: 12/31/21 Status: Ordered polyethylene glycol 3350 oral powder for reconstitution See Instructions, DISSOLVE 17grams powder IN WATER BEFORE drinking 2 (two) times a day NEEDED FOR CONSTIPATION, # 510 Gm, 11 Refills, [facility], 30, DISSOLVE 17grams powder IN WATER BEFORE drinking 2 (two) times a day NEEDED FOR CONSTIPATI... Start Date: 09/03/21 Status: Ordered polyethylene glycol 3350 oral powder for reconstitution = 17 Gm, By Mouth, 2 times a day, PRN Constipation, dissolve in water before taking, # 527 Gm, 3 Refills, Maintenance, 12/02/21 16:55:00 EDT, REC Powder, [facility] [id number], 17 Gm By Mouth 2 times a day,x30 days,PRN:Constip... Start Date: 12/02/21 Stop Date: 04/01/22 Status: Ordered rOPINIRole 0.5 mg oral tablet 1 tablet = 0.5 mg, By Mouth, Daily at bedtime, 1 to 3 hours before bedtime, # 30 tablet, 11 Refills, Maintenance, 08/21/21 13:32:00 EST, Tablet, [facility], [place] - [id number], Partial fill upon patient request if the prescription is f... Start Date: 08/21/21 Status: Ordered Senna 8.6 mg oral tablet 1 or 2 tablets, By Mouth, Daily at bedtime, PRN, # 60 tablet, Refills 5, Tot. Refills 5, Maintenance, Constipation, 10/10/21 14:43:00 EST, Route to Pharmacy Electronically, [facility], [place] - [id number] Tablet, Partial fill upon patie... Start Date: 10/10/21 Status: Ordered sildenafil 100 mg oral tablet 1 tablet = 100 mg, By Mouth, Daily, 1 hour before sexual activity, # 20 tablet, 11 Refills, Maintenance, 03/07/21 6:49:00 EDT, Tablet, [facility], [place] - [id number], Partial fill upon patient request if the prescription is for a sched... Start Date: 03/07/21 Status: Ordered varenicline 1mg tablet 1 tablet = 1 mg, By Mouth, Daily, 0.5 tab daily x 3 days then 0.5 tab BID x 3 days then 1 tab BID, # 30 tablet, 4 Refills, Maintenance, 11/13/21 15:15:00 EST, Tablet, [facility], [place] - [id number], Partial fill upon patient request if... 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
--- OUTSIDE RECORDS SUMMARY | 2023-07-12 20:08 | XMS_ITS | Continuity of Care Document ---
Author Name Unknown Organization [facility] Address [address] [place] [id number]- Care Team Providers Care Certified Orthotist Practice Manager Name Role Phone Namrata Prieto MD Primary Care Physician [place] [facility] [place]): [place] 09/07/20 [facility] [address] [place] [id number] Attending Physician: Jose Mathew MD Admitting Physician: Jose Mathew MD Referring Physician: Namrata Prieto MD Allergies, Adverse Reactions, [...] 05/28/20 16:31:00 EDT, Route to Pharmacy Electronically, [place], [place] - [id number], 171, cm, 05/28/20 16:01:00 EDT, Height, 59.5, kg, 12/29/19... Start Date: 05/28/20 Status: Ordered atovaquone 750 mg/5 mL oral suspension 10 mL = 1,500 mg, By Mouth, Daily, for 60 days, # 600 mL, 11 Refills, Acute 05/18/22 16:35:00 EDT, 05/28/20 16:35:00 EDT, Suspension, [place], [place] - [id number], Pls cancel bactrim prescription. Atovaquone to replace bactrim, 171,... Start Date: 05/28/20 Stop Date: 05/18/22 Status: Ordered azithromycin 500 mg oral tablet 2 tablet = 1,000 mg, By Mouth, Once, take both tablets at once, # 2 tablet, 0 Refills, Soft Stop, 06/27/20 17:56:00 EDT, Tablet, [facility] [id number], 171, cm, 05/28/20 16:01:00 EDT, Height, 59.5, kg, 12/29/19 15:28:00 EDT, D... Start Date: 06/27/20 Status: Ordered Biktarvy oral tablet 1 tablet, By Mouth, Daily, for 30 days, # 30 tablet, 11 Refills, Hard Stop 05/23/21 16:35:00 EDT, 05/28/20 16:35:00 EDT, Tablet, [facility] [id number], 1 tablet By Mouth Daily,x30 days, 171, cm, 05/28/20 16:01:00 EDT, Height,... Start Date: 05/28/20 Stop Date: 05/23/21 Status: Ordered Colace sodium 100 mg oral capsule 100 mg, 1, capsule, By Mouth, 2 times a day, PRN, # 60 capsule, Refills 11, Tot. Refills 11, Maintenance, for constipation, 05/28/20 16:34:00 EDT, Route to Pharmacy Electronically, [facility] [id number], 171, cm, 05/28/20 16:0... Start Date: 05/28/20 Status: Ordered Compression Stockings See Instructions, # 2 each, Refills 0, Tot. Refills 0, Maintenance, surgical, calf length 30-40 mm Hg, chronic venous stasis I87.8, wear during the day, off at night, 08/15/20 13:38:00 EST, Supply Start Date: 08/15/20 Status: Ordered Compression Stockings - Knee High 30-40mmHg Compression Stockings - Knee High 30-40mmHg, See Instructions, # 2 each, Refills 0, Tot. Refills 0,Maintenance, Wear During Day, Off At Night Dx: Chronic Venous Insufficiency (I87.2) Duration: Lifetime, 12/14/20 13:49:00 EST, Supply Start Date: 08/19/20 Status: Ordered gabapentin 100 mg oral capsule 200 mg, 2, capsule, By Mouth, 3 times a day, # 180 capsule, Refills 11, Tot. Refills 11, Maintenance, 06/28/20 13:01:00 EDT, Route to Pharmacy Electronically, [facility] [id number], 171, cm, 05/28/20 16:01:00 EDT, Height, 59.5... Start Date: 06/28/20 Status: Ordered hydrocortisone 0.5% topical cream See Instructions, use sparingly on face, use on all other affected areas, # 28 Gm, 11 Refills, Maintenance, 05/28/20 16:37:00 EDT, [facility] [id number], use sparingly on face, use on all other affected areas, 171, cm, ... Start Date: 05/28/20 Status: Ordered influenza virus vaccine, inactivated adjuvanted preservative-free quadrivalent intramuscular susp See Instructions, none, # 1 each, 0 Refills, Maintenance, 05/30/20 9:27:00 EDT, [facility], none, 171, cm, 05/28/20 16:01:00 EDT, Height, 59.5, kg, 12/29/19 15:28:00 EDT, Dry Weight Start Date: 05/30/20 Status: Ordered ketoconazole 2% topical cream 1 application, Topically, 2 times a day, for 28 days, use on the face, # 60 Gm, 11 Refills, Acute 04/29/21 16:40:00 EDT, 05/28/20 16:40:00 EDT, Cream, [facility] [id number], 1 application Topically 2 times a day,x28 days,Instr... Start Date: 05/28/20 Stop Date: 04/29/21 Status: Ordered ketoconazole 2% topical shampoo 1 application, Topically, Daily, try daily for 5 days as a shampoo, # 120 mL, 11 Refills, Soft Stop, 05/28/20 16:37:00 EDT, Shampoo, [facility], [place] - [id number], 1 application Topically Daily,Instr:try daily for 5 days as a shampoo,... Start Date: 05/28/20 Status: Ordered lithium 300 mg oral capsule 2 capsule = 600 mg, By Mouth, 2 times a day, # 120 capsule, 2 Refills, Maintenance, 06/28/20 12:56:00 EDT, [facility], [facility] [id number], Increase in dose per Psychiatry, 171, cm, 05/28/20 16:01:00 EDT, Height, 59.5, kg, 12/29/19 15:2... Start Date: 06/28/20 Status: Ordered LORazepam 0.5 mg oral tablet 1 tablet = 0.5 mg, By Mouth, 2 times a day, PRN Anxiety, # 60 tablet, 2 Refills, Maintenance, 06/28/20 12:56:00 EDT, Tablet, [facility], [facility] [id number], 171, cm, 05/28/20 16:01:00EDT, Height, 59.5, kg, 12/29/19 15:28:00 EDT, Dry W... Start Date: 06/28/20 Status: Ordered Mavyret 100 mg-40 mg oral tablet 3 tablet, By Mouth, Daily, with food, # 252 tablet, 0 Refills, Maintenance, 07/08/20 15:34:00 EST, Tablet, [facility], 3 tablet By Mouth [...] 5 Refills, Maintenance, 05/28/20 16:35:00 EDT, Tablet, [facility] [id number], 171, cm, 05/28/20 16:01:00 EDT, Height, 59.5, kg, 12/29/19 15:28:00 EDT, Dry Weight Start Date: 05/28/20 Stop Date: 11/24/20 Status: Ordered multivitamin with minerals Calcium and Magnesium oral tablet 1 tablet, By Mouth, Daily, # 30 tablet, 11 Refills, Maintenance, 05/28/20 16:35:00 EDT, Tablet, [place], [place] - [id number], 1 tablet By Mouth Daily, 171, cm, 05/28/20 16:01:00 EDT, Height, 59.5, kg, 12/29/19 15:28:00 EDT, Dry Weight Start Date: 05/28/20 Stop Date: 05/23/21 Status: Ordered Narcan 4 mg/0.1 mL nasal spray See Instructions, 4 mg Once may repeat every 2 to 3 minutes until patient responds, # 2 each, 1 Refills, Soft Stop, 08/24/19 9:41:00 EST, [place], [place] -, MAMADOU García to oyster picker for Pt., 170, cm, 08/24/19 9:21:00 EST, Height, 66.36,... Start Date: 08/24/19 Status: Ordered Nicotine 2 mg gum 1 each = 2 mg, Chew, Every 2 hours, PRN as needed for smoking cessation, # 160 each, 3 Refills, Maintenance, 05/28/20 16:51:00 EDT, Gum, [facility] [id number], 171, cm, 05/28/20 16:01:00 EDT, Height, 59.5, kg, 12/29/19 15:28:0... Start Date: 05/28/20 Status: Ordered pantoprazole 40 mg oral delayed [...] Refills, Soft Stop, 05/30/20 9:25:00 EDT, Suspension, [facility], 0.5 mL Intramuscular Once, 171, cm, 05/28/20 16:01:00 EDT, Height, 59.5, kg,12/29/19 15:28:00 EDT, Dry Weight Start Date: 05/30/20 Status: Ordered polyethylene glycol 3350 oral powder for reconstitution = 17 Gm, By Mouth, 2 times a day, PRN Constipation, dissolve in water before taking, # 527 Gm, 3 Refills, Maintenance, 11/28/19 9:42:00 EDT, REC Powder, [place], [place] -, 17 Gm By Mouth 2 times a day,x30 days,PRN:Constipation,Instr:... Start Date: 11/28/19 Stop Date: 03/27/20 Status: Ordered SEROquel 25 mg oral tablet 25 mg, 1, tablet, By Mouth, Daily at bedtime, # 30 tablet, Refills 2, Tot. Refills 2, Maintenance, 06/14/20 20:44:00 EDT, Route to Pharmacy Electronically, [facility], 171, cm, 05/28/20 16:01:00 EDT, Height, 59.5, kg, 12/29/19 15:28:00... Start Date: 06/14/20 Stop Date: 09/12/20 Status: Ordered sildenafil 100 mg oral tablet 1 tablet = 100 mg, By Mouth, Daily, 1 hour before sexual activity, # 10 tablet, 5 Refills, Maintenance, 09/04/20 14:26:00 EST, Tablet, [place], [place] - [id number], Partial fill upon patient request if the prescription is for a sched... 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 Sex
--- OUTSIDE RECORDS SUMMARY | 2023-07-12 20:08 | XMS_ITS | Continuity of Care Document ---
Author Name Unknown Organization [facility] Address [address] [place] [address]- Care Team Providers Care Sub Plant Manager Name Role Phone Conner QUEEN, Namrata Agarwal Primary Care Physician Encounter [facility] Date(s): 03/22/20 - 04/21/20 [facility] [address] [place] [address]- [facility] Allergies, Adverse Reactions, Alerts Substance Reaction Severity Status shellfish Active Latex rash Active Immunizations Given and Recorded Vaccine Date Status Refusal Reason influenza virus vaccine, inactivated 06/08/19 Give n Medications amLODIPine 5 mg oral tablet 5 mg, 1, tablet, By Mouth, Daily, # 30 tablet, Refills 5, Tot. Refills 5, Maintenance, 11/28/19 9:43:00 EDT, Route to Pharmacy Electronically, [facility] - [place], [place] -, 172, kenan, 09/26/19 8:57:00 EST, Height, 66.3, kg, 09/11/19 13:26:00 EST,... Start Date: 11/28/19 Stop Date: 05/26/20 Status: Ordered atovaquone 750 mg/5 mL oral suspension 10 mL = 1,500 mg, By Mouth, Daily, for 60 days, # 600 mL, 5 Refills, Acute 11/22/20 9:44:00 EDT, 11/28/19 9:44:00 EDT, Suspension, [facility] - [place], [place] -, Pls cancel bactrim prescription. Atovaquone to replace bactrim, 172, cm, 09/26/19 8... Start Date: 11/28/19 Stop Date: 11/22/20 Status: Ordered Biktarvy oral tablet 1 tablet, By Mouth, Daily, for 30 days, # 30 tablet, 5 Refills, Hard Stop 08/25/20 12:37:00 EST, 02/27/20 12:37:00 EDT, Tablet, [place], [place] -, 1 tablet By Mouth Daily,x30 days, 171, cm, 02/22/20 10:16:00 EDT, Height, 59.5, kg, 04... Start Date: 02/27/20 Stop Date: 08/25/20 Status: Ordered Biktarvy oral tablet 1 tablet, By Mouth, Daily, # 30 tablet, 5 Refills, Maintenance, 08/18/20 5:43:00 EST, Tablet, [place], [place] -, 1 tablet By Mouth Daily,x30 [...] 12/29/19 16:19:00 EDT, Route to Pharmacy Electronically, [place], [place] -, 171, cm, 12/29/19 15:28:00 EDT, Hei... Start Date: 12/29/19 Status: Ordered gabapentin 100 mg oral capsule 200 mg, 2, capsule, By Mouth, 3 times a day, # 180 capsule, Refills 3, Tot. Refills 3, Maintenance,02/27/20 12:37:00 EDT, Route to Pharmacy Electronically, [place], [place] -, 171, cm, 02/22/20 10:16:00 EDT, Height, 59.5, kg, 2... Start Date: 02/27/20 Stop Date: 06/26/20 Status: Ordered hydrocortisone 0.5% topical cream See Instructions, apply in a thin film to the hands and rub in gently 3 times a day for 5 days, # 28 Gm, 1 Refills, Maintenance, 02/27/20 12:35:00 EDT, [place], [place] -, apply in athin film to the hands and rub in gently 3 times a... Start Date: 02/27/20 Status: Ordered ketoconazole 2% topical shampoo 1 application, Topically, Daily, try daily for 5 days as a shampoo, # 120 mL, 3 Refills, Soft Stop,12/21/19 11:58:00 EDT, Shampoo, [place], [place] -, 1 application Topically Daily,Instr:try daily for 5 days as a shampoo, 172, cm, 01... Start Date: 12/21/19 Status: Ordered lithium 300 mg oral capsule See Instructions, 1 capsule by mouth in the AM and 2 capsule By Mouth Daily at bedtime 30 days, # 90 capsule, 2 Refills, Maintenance, 03/26/20 9:27:00 EDT, [place], [place] -, Increase in dose per Psychiatry, 171, cm, 03/26/20 8:54:00... Start Date: 03/26/20 Status: Ordered LORazepam 0.5 mg oral tablet 1 tablet = 0.5 mg, By Mouth, 2 times a day, PRN Anxiety, # 60 tablet, 2 Refills, Maintenance, 02/27/20 12:37:00 EDT, Tablet, [place], [place] -, 171, cm, 02/22/20 10:16:00 EDT, Height, 59.5, kg, 12/29/19 15:28:00 EDT, Dry Weight Start Date: 02/27/20 Stop Date: 05/27/20 Status: Ordered methadone 10 mg oral tablet = 25 mg, By Mouth, Daily, 0 Refills, Maintenance, 01/17/19 10:36:18 EDT, Tablet Start Date: 01/17/19 Status: Ordered mirtazapine 30 mg oral tablet 1 tablet = 30 mg, By Mouth, Daily at bedtime, # 30 tablet, 5 Refills, Maintenance, 11/28/19 9:41:00EDT, Tablet, [place], [place] -, 172, cm, 09/26/19 8:57:00 EST, Height, 66.3, kg, 09/11/19 13:26:00 EST, Dry Weight Start Date: 11/28/19 Stop Date: 05/26/20 Status: Ordered multivitamin with minerals Calcium and Magnesium oral tablet 1 tablet, By Mouth, Daily, # 30 tablet, 5 Refills, Maintenance, 09/26/19 12:05:00 EST, Tablet, [place], [place] -, 1 tablet By Mouth Daily,x30 days, 172, cm, 09/26/19 8:57:00 EST, Height, 66.3, kg, 09/11/19 13:26:00 EST, Dry Weight Start Date: 09/26/19 Stop Date: 03/24/20 Status: Ordered Narcan 4 mg/0.1 mL nasal spray See Instructions, 4 mg Once may repeat every 2 to 3 minutes until patient responds, # 2 each, 1 Refills, Soft Stop, 08/24/19 9:41:00 EST, [place], [place] -, VNA Raquel to chart picker for Pt., 170, cm, 08/24/19 9:21:00 [...] Refills, Maintenance, 11/28/19 9:42:00 EDT, REC Powder, [place], [place] -, 17 Gm By Mouth 2 times a day,x30 days,PRN:Constipation,Instr:... Start Date: 11/28/19 Stop Date: 03/27/20 Status: Ordered SEROquel 25 mg oral tablet 25 mg, 1, tablet, By Mouth, Daily at bedtime, # 30 tablet, Refills 2, Tot. Refills 2, Maintenance, 03/26/20 9:29:00 EDT, Route to Pharmacy Electronically, [facility] - [place], [place] -, 171, cm, 03/26/20 8:54:00 EDT, [...]
--- OUTSIDE RECORDS SUMMARY | 2023-07-12 20:08 | XMS_ITS | Continuity of Care Document ---
Author Name Unknown Organization [facility] Address [address] [place] [address]- Care Team Providers Care Senior Android Software Engineer Name Role Phone Conner QUEEN, Namrata Agarwal Primary Care Physician Encounter [facility] Date(s): 05/07/20 - 06/06/20 [facility] [address] [place] [phone]- [facility] Allergies, Adverse Reactions, Alerts Substance Reaction Severity [...] 05/28/20 16:31:00 EDT, Route to Pharmacy Electronically, [facility] [id number], 171, cm, 05/28/20 16:01:00 EDT, Height, 59.5, kg, 12/29/19... Start Date: 05/28/20 Status: Ordered atovaquone 750 mg/5 mL oral suspension 10 mL = 1,500 mg, By Mouth, Daily, for 60 days, # 600 mL, 11 Refills, Acute 05/18/22 16:35:00 EDT, 05/28/20 16:35:00 EDT, Suspension, [facility] [id number], Pls cancel bactrim prescription. Atovaquone to replace bactrim, 171,... Start Date: 05/28/20 Stop Date: 05/18/22 Status: Ordered Biktarvy oral tablet 1 tablet, By Mouth, Daily, for 30 days, # 30 tablet, 11 Refills, Hard Stop 05/23/21 16:35:00 EDT, 05/28/20 16:35:00 EDT, Tablet, [facility] [id number], 1 tablet By Mouth Daily,x30 days, 171, cm, 05/28/20 16:01:00 EDT, Height,... Start Date: 05/28/20 Stop Date: 05/23/21 Status: Ordered Colace sodium 100 mg oral capsule 100 mg, 1, capsule, By Mouth, 2 times a day, PRN, # 60 capsule, Refills 11, Tot. Refills 11, Maintenance, for constipation, 05/28/20 16:34:00 EDT, Route to Pharmacy Electronically, [facility] [id number], 171, cm, 05/28/20 16:0... Start Date: 05/28/20 Status: Ordered gabapentin 100 mg oral capsule 200 mg, 2, capsule, By Mouth, 3 times a day, # 180 capsule, Refills 1, Tot. Refills 1, Maintenance,05/07/20 16:16:00 EDT, Route to Pharmacy Electronically, [facility] [id number], 171, cm, 03/26/20 8:54:00 EDT, Height, 59.5, k... Start Date: 05/07/20 Stop Date: 09/04/20 Status: Ordered hydrocortisone 0.5% topical cream See Instructions, use sparingly on face, use on all other affected areas, # 28 Gm, 11 Refills, Maintenance, 05/28/20 16:37:00 EDT, [facility] [id number], use sparingly on face, use on all other affected areas, 171, cm, 2... Start Date: 05/28/20 Status: Ordered influenza virus vaccine, inactivated adjuvanted preservative-free quadrivalent intramuscular susp See Instructions, none, # 1 each, 0 Refills, Maintenance, 05/30/20 9:27:00 EDT, [facility], none, 171, cm, 05/28/20 16:01:00 EDT, Height, 59.5, kg, 12/29/19 15:28:00 EDT, Dry Weight Start Date: 05/30/20 Status: Ordered ketoconazole 2% topical cream 1 application, Topically, 2 times a day, for 28 days, use on the face, # 60 Gm, 11 Refills, Acute 04/29/21 16:40:00 EDT, 05/28/20 16:40:00 EDT, Cream, [facility] [id number], 1 application Topically 2 times a day,x28 days,Instr... Start Date: 05/28/20 Stop Date: 04/29/21 Status: Ordered ketoconazole 2% topical shampoo 1 application, Topically, Daily, try daily for 5 days as a shampoo, # 120 mL, 11 Refills, Soft Stop, 05/28/20 16:37:00 EDT, Shampoo, [facility] [id number], 1 application Topically Daily,Instr:try daily for 5 days as a shampoo,... Start Date: 05/28/20 Status: Ordered lithium 300 mg oral capsule 2 capsule = 600 mg, By Mouth, 2 times a day, # 120 capsule, 1 Refills, Maintenance, 05/07/20 16:16:00 EDT, [facility] [id number], Increase in dose per Psychiatry, 171, cm, 03/26/20 8:54:00 EDT, Height, 59.5, kg, 12/29/19 15:28... Start Date: 05/07/20 Status: Ordered LORazepam 0.5 mg oral tablet 1 tablet = 0.5 mg, By Mouth, 2 times a day, PRN Anxiety, # 60 tablet, 1 Refills, Maintenance, 05/07/20 16:16:00 EDT, Tablet, [facility] [id number], 171, cm, 03/26/20 8:54:00 EDT, Height, 59.5, [...] 5 Refills, Maintenance, 05/28/20 16:35:00 EDT, Tablet, [facility] [id number], 171, cm, 05/28/20 16:01:00 EDT, Height, 59.5, kg, 12/29/19 15:28:00 EDT, Dry Weight Start Date: 05/28/20 Stop Date: 11/24/20 Status: Ordered multivitamin with minerals Calcium and Magnesium oral tablet 1 tablet, By Mouth, Daily, # 30 tablet, 11 Refills, Maintenance, 05/28/20 16:35:00 EDT, Tablet, [facility] [id number], 1 tablet By Mouth Daily, 171, cm, 05/28/20 16:01:00 EDT, Height, 59.5, kg, 12/29/19 15:28:00 EDT, Dry Weight Start Date: 05/28/20 Stop Date: 05/23/21 Status: Ordered Narcan 4 mg/0.1 mL nasal spray See Instructions, 4 mg Once may repeat every 2 to 3 minutes until patient responds, # 2 each, 1 Refills, Soft Stop, 08/24/19 9:41:00 EST, [place], [place] -, MAMADOU García to warehouse picker for Pt., 170, cm, 08/24/19 9:21:00 EST, Height, 66.36,... Start Date: 08/24/19 Status: Ordered Nicotine 2 mg gum 1 each = 2 mg, Chew, Every 2 hours, PRN as needed for smoking cessation, # 160 each, 3 Refills, Maintenance, 05/28/20 16:51:00 EDT, Gum, [facility] [id number], 171, cm, 05/28/20 16:01:00 EDT, Height, 59.5, kg, 12/29/19 15:28:0... Start Date: 05/28/20 Status: Ordered Nicotine 7 mg/24 hour patch 1 patch, Topically, Daily, for 30 days, # 30 patch, 0 Refills, Acute 06/27/20 16:51:00 EDT, 05/28/20 16:51:00 EDT, Patch, [place], [place] - [id number], 1 patch Topically Daily,x30 days, 171, cm, [...] Refills, Soft Stop, 05/30/20 9:25:00 EDT, Suspension, [facility], 0.5 mL Intramuscular Once, 171, cm, 05/28/20 16:01:00 EDT, Height, 59.5, kg,12/29/19 15:28:00 EDT, Dry Weight Start Date: 05/30/20 Status: Ordered polyethylene glycol 3350 oral powder for reconstitution = 17 Gm, By Mouth, 2 times a day, PRN Constipation, dissolve in water before taking, # 527 Gm, 3 Refills, Maintenance, 11/28/19 9:42:00 EDT, REC Powder, [place], [place] -, 17 Gm By Mouth 2 times a day,x30 days,PRN:Constipation,Instr:... Start Date: 11/28/19 Stop Date: 03/27/20 Status: Ordered SEROquel 25 mg oral tablet 25 mg, 1, tablet, By Mouth, Daily at bedtime, # 30 tablet, Refills 2, Tot. Refills 2, Maintenance, 03/26/20 9:29:00 EDT, Route to Pharmacy Electronically, [facility] [place] -, 171, cm, 03/26/20 8:54:00 EDT, Height, 59.5, kg, 12/29/19 1... Start Date: 03/26/20 Stop Date: 06/24/20 Status: Ordered Viagra 50 mg oral tablet 1 tablet = 50 mg, By Mouth, Daily, PRN sexual activity, 1 hour before sexual activity, # 10 tablet,11 Refills, Maintenance, 05/29/20 20:14:00 EDT, Tablet, [facility] [place], [place] - [id number], 171, cm, 05/28/20 16:01:00 EDT, Height, 59.5, k... 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 Sex
--- OUTSIDE RECORDS SUMMARY | 2023-07-12 20:08 | XMS_ITS | Continuity of Care Document ---
Author Name Unknown Organization [facility] Address [address] [place] [id number]- Care Team Providers Care Fowl Blood Tester Name Role Phone Namrata Prieto MD Primary Care Physician [phone] Encounter [facility] Date(s): 04/20/22 - 06/13/22 [facility] [address] [place] [id number] Attending Physician: Namrata Prieto MD Admitting Physician: Namrata Preito MD Referring Physician: Namrata Prieto MD Allergies, [...] 8:29:00 EDT, Powder, Route to Pharmacy Electronically, [id number], [facility] - [facility]... Start Date: 01/07/22 Stop Date: 01/02/23 Status: Ordered Albuterol (Eqv-ProAir HFA) 90 mcg/inh inhalation aerosol 2 puffs, Inhalation, Every 6 hours, # 8.5 Gm, 11 Refills, 08/25/21 12:34:00 EST, [facility] [id number], 25, 2 puffs Inhalation Every 6 hours, 173, cm, 08/25/21 12:31:00 EST, Height, 84, kg, 04/19/21 2:36:00 EDT, Dry Weight Start Date: 08/25/21 Status: Ordered amLODIPine 10 mg oral tablet 10 mg, 1, tablet, By Mouth, Daily, # 30 tablet, Refills 11, Tot. Refills 11, Maintenance, 08/27/21 16:46:00 EST, Route to Pharmacy Electronically, [facility] [id number], 173,cm, 08/25/21 12:31:00 EST, Height, 84, kg, 04/19/21... Start Date: 08/27/21 Status: Ordered Asperflex 4% topical film 1 patch, Topically, Daily, for 30 days, # 30 patch, 11 Refills, Acute 03/12/23 14:41:00 EDT, 03/17/22 14:41:00 EDT, [facility] [id number], Partial fill upon patient request if the prescription is for a schedule II opioid drug.... Start Date: 03/17/22 Stop Date: 03/12/23 Status: Ordered aspirin 81 mg oral tablet, chewable 81 mg, 1, tablet, By Mouth, Daily, # 120 tablet, Refills 3, Tot. Refills 3, Maintenance, 10/02/21 11:47:00 EST, Route to Pharmacy Electronically, [facility] [id number], Partial fill upon patient request if the prescription is... Start Date: 10/02/21 Stop Date: 01/25/23 Status: Ordered atorvastatin 80 mg oral tablet 1 tablet = 80 mg, By Mouth, Daily, # 30 tablet, 11 Refills, Maintenance, 11/07/21 14:34:00 EST, Tablet, [facility] [id number], Partial fill upon patient request if the prescription is for a schedule II opioid drug., 170, cm, 0... Start Date: 11/07/21 Status: Ordered Biktarvy oral tablet 1 tablet, By Mouth, Daily, # 30 tablet, 11 Refills, [facility], , TAKE ONE TABLET BY MOUTH DAILY, 173, cm, 04/21/21 8:17:00 EDT, Height, 84, kg, 04/19/21 2:36:00 EDT, Dry Weight Start Date: 06/25/21 Status: Ordered bisacodyl 10 mg rectal suppository unwrap AND INSERT 1 SUPPOSITORY RECTALLY ONCE DAILY NEEDED FOR CONSTIPATION Start Date: 05/07/22 Status: Ordered Crutches See Instructions, # 1 [...] 1 Refills, Soft Stop, 03/05/22 10:37:00 EDT, [facility] [id number], Partial fill upon patient request if the prescriptio... Start Date: 03/05/22 Status: Ordered hydrocortisone 0.5% topical cream See Instructions, use sparingly on face, use on all other affected areas, # 28 Gm, 11 Refills, Maintenance, 03/07/21 6:50:00 EDT, [facility] [place] - [id number], use sparingly on face, use on all other affected areas, 174, cm, 01/13/21... Start Date: 03/07/21 Status: Ordered Incruse Ellipta 62.5 mcg/inh inhalation powder 1 puffs, Inhalation, Every 24 hours, doses should be taken AT least 24 HOURS APART, # 30 Unknown, 11 Refills, 08/25/21 12:34:00 EST, [facility], [place] - [id number], 173, cm, 08/25/21 12:31:00 EST, Height, 84, kg, 04/19/21 2:36:00 EDT,... Start Date: 08/25/21 Status: Ordered ketoconazole 2% topical cream 1 application, Topically, Daily, # 30 Gm, 11 Refills, Maintenance, 04/20/22 9:23:00 EDT, [facility], [facility] [id number], 1 application Topically Daily, 173, cm, 12/05/21 17:38:00 EDT,Height, 127, kg, 12/05/21 17:38:00 EDT, Dry Weight Start Date: 04/20/22 Status: Ordered Lidoderm 5% film 1 patch, Topically, Daily, # 30 patch, 11 Refills, Maintenance, 03/19/22 21:12:00 EDT, [facility], [facility] [id number], Partial fill upon patient request if the [...] 11 Refills, Maintenance, 12/15/21 6:32:00 EDT, Tablet, [facility], [place] - [id number], 1 tablet By Mouth Daily, 173, cm, 12/05/21 17:38:00 EDT,Height, 127, kg, 12/05/21 17:38:00 EDT, Dry Weight Start Date: 12/15/21 Status: Ordered Narcan 4 mg/0.1 mL nasal spray See Instructions, 4 mg Once may repeat every 2 to 3 minutes until patient responds, # 2 each, 3 Refills, Soft Stop, 03/05/22 10:07:00 EDT, [facility], [facility] [id number], 173, cm, 12/05/21 17:38:00 EDT, Height, 127, kg, 12/05/21 17:38... Start Date: 03/05/22 Status: Ordered Nicotine 2 mg gum 1 each = 2 mg, Chew, Every 2 hours, PRN as needed for smoking cessation, for 4 week(s), # 160 each,11 Refills, Acute 09/11/22 12:53:00 EST, 10/10/21 12:53:00 EST, [facility] [id number], Partial fill upon patient request... Start Date: 10/10/21 Stop Date: 09/11/22 Status: Ordered ondansetron 4 mg oral tablet, disintegrating 1 tablet = 4 mg, By Mouth, Every 8 hours, PRN as needed for nausea/vomiting, # 12 tablet, 11 Refills, Maintenance, 08/21/21 13:33:00 EST, DIS Tablet, [facility] [id number], Partial fill upon patient request if the [...] Refills, Maintenance, 12/02/21 16:55:00 EDT, REC Powder, [facility] [id number], 17 Gm By Mouth 2 times a day,x30 days,PRN:Constip... Start Date: 12/02/21 Stop Date: 04/01/22 Status: Ordered rOPINIRole 0.5 mg oral tablet 1 tablet = 0.5 mg, By Mouth, Daily at bedtime, 1 to 3 hours before bedtime, # 30 tablet, 11 Refills, Maintenance, 08/21/21 13:32:00 EST, Tablet, [facility] [id number], Partial fill upon patient request if the prescription is f... Start Date: 08/21/21 Status: Ordered sildenafil 100 mg oral tablet 1 tablet = 100 mg, By Mouth, Daily, 1 hour before sexual activity, # 20 tablet, 11 Refills, Maintenance, 04/20/22 9:24:00 EDT, Tablet, [facility] [id number], disreguard last script for 0.5 tab, 173, cm, 12/05/21 17:38:00 EDT,... Start Date: 04/20/22 Status: Ordered varenicline 1mg tablet 1 tablet = 1 mg, By Mouth, Daily, 0.5 tab daily x 3 days then 0.5 tab BID x 3 days then 1 tab BID, # 30 tablet, 4 Refills, Maintenance, 04/01/22 16:45:00 EDT, Tablet, [facility] [id number], Partial fill upon patient request if... Start Date: 04/01/22 Status: Ordered Vitamin D2 50,000 intl units (1.25 mg) oral capsule 1 capsule, By Mouth, Every week, # 5 capsule, 1 Refills, Maintenance, 05/01/22 12:04:00 EDT, [facility], 173, cm, 12/05/21 17:38:00 EDT, Height, 127, kg, 12/05/21 17:38:00 EDT, Dry Weight Start Date: 05/01/22 Status: Ordered Vitamin D3 1000 intl units oral capsule 1 capsule = 25 mcg, By Mouth, Daily, # 30 capsule, 11 Refills, Maintenance, 06/04/22 17:32:00 EDT, Capsule, [facility] [id number], D/c vitamin high dosed, 173, cm, 05/10/22 20:46:00 EDT, Height, 95.5, kg, 05/10/22 20:46:00 EDT... 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 Impaired LV relaxation Social History Social History Type Response Smoking Status 10 or more cigarette s (1/2 pack or more)/day in last 30 days entered on: 12/05/21 Sex Patient Care team information Personnel Name: Conner QUEEN, Namrata Agarwal Address: Address: [address] [place] [address], -Level [facility] [place], [place] [address]
--- OUTSIDE RECORDS SUMMARY | 2023-07-12 20:08 | XMS_ITS | Continuity of Care Document ---
Author Name Unknown Organization [facility] Address [address] [place] [address]- Care Team Providers Care Water/Wastewater Engineer Name Role Phone Conner QUEEN, Namrata Agarwal Primary Care Physician Encounter [facility] Date(s): 04/15/23 - 05/15/[facility] [address] [place], [place] [address] Attending Physician: Angeles De La Rosa Admitting Physician: AdmtrAngeles Referring Physician: AdmtrAngeles Allergies, Adverse Reactions, Alerts Substance Reaction Severity [...] Electronically, [facility] [place], [place] - [id number], 173, cm, 01/21/23 11:36:00 EDT, Height, 93.18, kg, 2... Start Date: 02/16/23 Status: Ordered aspirin 81 mg oral tablet, chewable 81 mg, 1, tablet, By Mouth, Daily, # 90 tablet, Refills 3, Tot. Refills 3, Maintenance, 02/16/23 10:45:00 EDT, Route to Pharmacy Electronically, [facility] [id number], Partial fill upon patient request if the prescription is f... Start Date: 02/16/23 Status: Ordered atorvastatin 80 mg oral tablet 1 tablet = 80 mg, By Mouth, Daily, # 90 tablet, 3 Refills, Maintenance, 02/16/23 10:45:00 EDT, Tablet, [facility] [id number], Partial fill upon patient request if the prescription is for a schedule II opioid drug., 173, cm, 05... Start Date: 02/16/23 Status: Ordered Biktarvy oral tablet 1 tablet, By Mouth, Daily, must get appt and labs for refills, # 30 tablet, 0 Refills, Maintenance,12/16/22 19:18:00 EDT, [facility] [id number], 30, 1 tablet By Mouth Daily,Instr:must get appt and labs for refills, 173, cm, 0... Start Date: 12/16/22 Status: Ordered Colace sodium 100 mg oral capsule 100 mg, 1, capsule, By Mouth, 2 times a day, PRN, # 180 capsule, Refills 3, Tot. Refills 3, Maintenance, for constipation, 02/16/23 10:45:00 EDT, Route to Pharmacy Electronically, [facility] [id number], Partial fill upon patie... Start Date: 02/16/23 Status: Ordered EpiPen 2-Devin 0.3 mg injectable kit = 0.3 mg, Intramuscular, Once, may repeat if necessary, # 2 each, 1 Refills, Soft Stop, 04/14/23 14:07:00 EDT, [facility] [id number], Partial fill upon patient request if theprescription is for a schedule II opioid drug., 176... Start Date: 04/14/23 Status: Ordered fluticasone-salmeterol 250 mcg-50 mcg inhalation powder 1, puffs, Inhalation, 2 times a day, # 3 each, Refills 3, Tot. Refills 3, Maintenance, 02/16/23 10:45:00 EDT, Powder, Route to Pharmacy Electronically, [id number], [place], [place] - [id number], 173, cm, 01/04... Start Date: 02/16/23 Status: Ordered Incruse Ellipta 62.5 mcg/inh inhalation powder 1 puffs, Inhalation, Every 24 hours, # 3 each, 3 Refills, Maintenance, 02/16/23 10:45:00 EDT, [place], [place] - [id number], 173, cm, 01/21/23 11:36:00 EDT, Height, 93.18, kg, 08/12/22 0:40:00 EST, Dry Weight Start Date: 02/16/23 Status: Ordered [place] 200 mg, By Mouth, Daily at bedtime, [...] tablet, 3 Refills,Maintenance, 02/16/23 10:45:00 EDT, Tablet, [facility] [id number], Partialfill upon patient request if the prescription is fo... Start Date: 02/16/23 Status: Ordered Ventolin HFA 108 mcg/inh inhalation aerosol with adapter 2 puffs, Inhalation, 4 times a day, PRN for wheezing, # 3 each, 3 Refills, Maintenance, 02/16/23 10:45:00 EDT, Aerosol, [facility] [id number], Partial fill upon patient request if the prescription is for a schedule II opioid d... Start Date: 02/16/23 Status: Ordered Vitamin D3 1000 intl units oral capsule 1 capsule = 25 mcg, By Mouth, Daily, # 90 capsule, 3 Refills, Maintenance, 02/16/23 10:45:00 EDT, Capsule, [facility] [id number], D/c vitamin high dosed, 173, cm, 01/21/23 [...] 01/2019 Confirmed Active Depression - Olinda dawn, [facility] Confirmed Active Diastolic dysfunction 1 Confirmed [...] Team Personnel Name: Jadiel Watson RN Position: [facility] ED RN W/OE and Tasks Member Role: Primary Care Nurse Name: Dede Mccloud RN Position: S RN Member Role: Primary Care Nurse Name: Judy Gonzales RN Position: S RN Member Role: Primary Care Nurse Name: Jake Moon Position: [facility] RN Supv Member Role: Primary Care Nurse Name: Enma Manriquez RN Position: [facility] AMB Nurse Member Role: Primary Care Nurse Name: Zuhair Lopez RN Position: [facility] RN Member Role: Primary Care Nurse Name: Edie Bob RN Position: [facility] RN Member Role: Primary Care Nurse Name: Lisbet Gardiner RN Position: [facility] RN Member Role: Primary Care Nurse Name: Namrata Prieto MD Position: [facility] Physician - Primary Care Member Role: PCP Address: Address: [address] [place] [address]- Name: Carolina Valero RN Position: [facility] RN Member Role: Primary Care Nurse Name: Nishi Sna RN Position: [facility] RN Member Role: Primary Care Nurse Name: Micky Boyd RN Position: [facility] RN Member Role: Primary Care Nurse Name: Lauri Combs NP Position: Reference Physician Member Role: Primary Care Nurse Address: Address: [address] [place] [address] [address] Clinical [facility] [place] [address]- [place] Name: Griselda Rand Position: [facility] RN Supv Member Role: Primary Care Nurse Care Team Related Persons Name: LUIS SAN Address: [place] [address] Name: BROOKE OWEN Address: home [address] [address] Name: KARYN OWEN Address: home [address] [place] [address] Name: DOMINGO LEONE Address: home [address] [place] [address]
--- OUTSIDE RECORDS SUMMARY | 2023-07-12 20:08 | XMS_ITS | Continuity of Care Document ---
Author Name Unknown Organization [facility] Address [address] [place] [address]- Care Team Providers Care Medical Case Manager Name Role Phone Namrata Prieto MD Primary Care Physician [phone] Encounter [facility] Date(s): 08/08/21 - 09/07/21 [facility] [address] [place] [id number] Allergies, Adverse Reactions, Alerts Substance Reaction [...] 13:14:00 EST, Powder, Route to Pharmacy Electronically, [id number], [facility]... Start Date: 08/21/21 Stop Date: 01/18/22 Status: Ordered Albuterol (Eqv-ProAir HFA) 90 mcg/inh inhalation aerosol 2 puffs, Inhalation, Every 6 hours, # 8.5 Gm, 11 Refills, 08/25/21 12:34:00 EST, [facility] - [place], [place] - [id number], 25, 2 puffs Inhalation Every 6 hours, 173, cm, 08/25/21 12:31:00 EST, Height, 84, kg, 04/19/21 2:36:00 EDT, Dry Weight Start Date: 08/25/21 Status: Ordered amLODIPine 10 mg oral tablet 10 mg, 1, tablet, By Mouth, Daily, # 30 tablet, Refills 11, Tot. Refills 11, Maintenance, 08/27/21 16:46:00 EST, Route to Pharmacy Electronically, [place], [place] - [id number], 173,cm, 08/25/21 12:31:00 EST, Height, 84, kg, 04/19/21... Start Date: 08/27/21 Status: Ordered atovaquone 750 mg/5 mL oral suspension 10 mL = 1,500 mg, By Mouth, Daily, for 60 days, # 600 mL, 11 Refills, Acute 02/25/23 6:50:00 EDT, 03/07/21 6:50:00 EDT, Suspension, [place], [place] - [id number], Pls cancel bactrim prescription. Atovaquone to replace bactrim, 174, cm... Start Date: 03/07/21 Stop Date: 02/25/23 Status: Ordered Biktarvy oral tablet 1 tablet, By Mouth, Daily, # 30 tablet, 11 Refills, [facility], 30, TAKE ONE TABLET BY MOUTH DAILY, [...] FOR CONSTIPATION, # 60 each, 5 Refills, [facility], 173, cm, 04/21/21 8:17:00 EDT, Height, 84, kg, 04/19/21 2:36:00 EDT, Dry Weight Start Date: 06/02/21 Status: Ordered hydrocortisone 0.5% topical cream See Instructions, use sparingly on face, use on all other affected areas, # 28 Gm, 11 Refills, Maintenance, 03/07/21 6:50:00 EDT, [place], [place] - [id number], use sparingly on face, use on all other affected areas, 174, cm, 01/13/21... Start Date: 03/07/21 Status: Ordered Incruse Ellipta 62.5 mcg/inh inhalation powder 1 puffs, Inhalation, Every 24 hours, doses should be taken AT least 24 HOURS APART, # 30 Unknown, 11 Refills, 08/25/21 12:34:00 EST, [place], [place] - [id number], 173, cm, 08/25/21 12:31:00 EST, Height, 84, kg, 04/19/21 2:36:00 EDT,... Start Date: 08/25/21 Status: Ordered ketoconazole 2% topical cream See Instructions, APPLY TO THE AFFECTED AREA TOPICALLY 2 (two) times a day. 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 Start Date: 08/24/19 Status: Ordered ondansetron 4 mg oral tablet, disintegrating 1 tablet = 4 mg, By Mouth, Every 8 hours, PRN as needed for nausea/vomiting, # 12 tablet, 11 Refills, Maintenance, 08/21/21 13:33:00 EST, DIS Tablet, [place], [place] - [id number], Partial fill upon patient request if the [...] Refills, Maintenance, 11/28/19 9:42:00 EDT, REC Powder, [place], [place] -, 17 Gm By Mouth 2 times a day,x30 days,PRN:Constipation,Instr:... Start Date: 11/28/19 Stop Date: 03/27/20 Status: Ordered polyethylene glycol 3350 oral powder for reconstitution See Instructions, DISSOLVE 17grams powder IN WATER BEFORE drinking 2 (two) times a day NEEDED FOR CONSTIPATION, # 510 Gm, 11 Refills, [facility], 30, DISSOLVE 17grams powder IN WATER BEFORE drinking 2 (two) times a day NEEDED FOR CONSTIPATI... Start Date: 09/03/21 Status: Ordered rOPINIRole 0.5 mg oral tablet 1 tablet = 0.5 mg, By Mouth, Daily at bedtime, 1 to 3 hours before bedtime, # 30 tablet, 11 Refills, Maintenance, 08/21/21 13:32:00 EST, Tablet, [place], [place] - [id number], Partial fill upon patient request if the prescription is f... Start Date: 08/21/21 Status: Ordered sildenafil 100 mg oral tablet 1 tablet = 100 mg, By Mouth, Daily, 1 hour before sexual activity, # 20 tablet, 11 Refills, Maintenance, 03/07/21 6:49:00 EDT, Tablet, [place], [place] - [id number], Partial fill upon patient request if the prescription is for a sched... 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
--- OUTSIDE RECORDS SUMMARY | 2023-07-12 20:08 | XMS_ITS | Continuity of Care Document ---
Author Name Unknown Organization [facility] ter Address [address] [place] [address]- Care Team Providers Care Digital Tech Name Role Phone Calvin WELLS, Giovanna Bernard Primary Care Physician [facility] Date(s): 10/25/19 - 10/25/19 [facility] [address] [place] [id number] [facility] Attending Physician: Giovanna Simpson NP Allergies, Adverse Reactions, Alerts Substance Reaction Severity Status shellfish Active Latex rash Active Immunizations Given and Recorded Vaccine Date Status Refusal Reason influenza virus vaccine, inactivated 06/08/19 Give n Medications amLODIPine 5 mg oral tablet 5 mg, 1, tablet, By Mouth, Daily, # 30 tablet, Refills 0, Tot. Refills 0, Maintenance, 09/26/19 12:05:00 EST, Route to Pharmacy Electronically, [place], [place] -, 172, cm, 09/26/19 8:57:00 EST, Height, 66.3, kg, 09/11/19 13:26:00 EST... Start Date: 09/26/19 Status: Ordered atovaquone 750 mg/5 mL oral suspension 10 mL = 1,500 mg, By Mouth, Daily, for 60 days, # 600 mL, 5 Refills, Acute 08/18/20 9:40:00 EST, 08/24/19 9:40:00 EST, Suspension, [place], [place] -, Pls cancel bactrim prescription. Atovaquone to replace bactrim, 170, cm, 08/24/19 9... Start Date: 08/24/19 Stop Date: 08/18/20 Status: Ordered Biktarvy oral tablet 1 tablet, By Mouth, Daily, # 30 tablet, 5 Refills, Maintenance, 08/24/19 9:40:00 EST, Tablet, [place], [place] -, 1 tablet By Mouth Daily,x30 days, 170, cm, 08/24/19 9:21:00 EST, Height, 66.36, kg, 03/10/19 16:51:00 EDT, Dry Weight Start Date: 08/24/19 Stop Date: 02/20/20 Status: Ordered docusate sodium 100 mg oral capsule 100 mg, 1, capsule, By Mouth, 2 times a day, PRN, # 60 capsule, Refills 0, Tot. Refills 0, Maintenance, for constipation, 09/26/19 12:05:00 EST, Route to Pharmacy Electronically, [place], [place] -, 172, cm, 09/26/19 8:57:00 EST, [place]... Start Date: 09/26/19 Status: Ordered fluconazole 200 mg oral tablet 1 tablet = 200 mg, By Mouth, Daily, for 28 days, # 28 tablet, 5 Refills, Acute 02/08/20 9:42:00 EDT, 08/24/19 9:42:00 EST, Tablet, [facility] [place], [place] -, Decrease in dose., 170, cm, 08/24/19 9:21:00 EST, Height, 66.36, kg, 03/10/19 16:51... Start Date: 08/24/19 Stop Date: 02/08/20 Status: Ordered gabapentin 100 mg oral capsule 200 mg, 2, capsule, By Mouth, 3 times a day, # 180 capsule, Refills 0, Tot. Refills 0, Maintenance,10/24/19 11:24:00 EST, Route to Pharmacy Electronically, [place], [place] -, 172, cm, 09/26/19 8:57:00 EST, Height, 66.3, kg, 09/11/19... Start Date: 10/24/19 Stop Date: 11/23/19 Status: Ordered lithium 300 mg oral capsule 2 capsule = 600 mg, By Mouth, Daily at bedtime, # 60 capsule, 0 Refills, Maintenance, 10/24/19 11:23:00 EST, [place], [place] -, 172, cm, 09/26/19 8:57:00 EST, Height, 66.3, kg, 09/11/19 13:26:00 EST, Dry Weight Start Date: 10/24/19 Status: Ordered lithium 300 mg oral tablet 1 tablet = 300 mg, By Mouth, Daily, # 30 tablet, 0 Refills, Maintenance, 10/24/19 11:22:00 EST, Tablet, [place], [place] -, 172, cm, 09/26/19 8:57:00 EST, Height, 66.3, kg, 09/11/19 13:26:00 EST, Dry Weight Start Date: 10/24/19 Stop Date: 11/23/19 Status: Ordered LORazepam 0.5 mg oral tablet 1 tablet = 0.5 mg, By Mouth, 2 times a day, PRN Anxiety, # 60 tablet, 0 Refills, Maintenance, 10/24/19 11:24:00 EST, Tablet, [place], [place] -, 172, cm, 09/26/19 8:57:00 EST, Height, 66.3, kg, 09/11/19 13:26:00 EST, Dry Weight Start Date: 10/24/19 Stop Date: 11/23/19 Status: Ordered methadone 10 mg oral tablet = 25 mg, By Mouth, Daily, 0 Refills, Maintenance, 01/17/19 10:36:18 EDT, Tablet Start Date: 01/17/19 Status: Ordered mirtazapine 30 mg oral tablet 1 tablet = 30 mg, By Mouth, Daily at bedtime, # 30 tablet, 0 Refills, Maintenance, 09/26/19 12:07:00 EST, Tablet, [place], [place] -, 172, cm, 09/26/19 8:57:00 EST, Height, 66.3, kg,09/11/19 13:26:00 EST, Dry Weight Start Date: 09/26/19 Status: Ordered multivitamin with minerals Calcium and Magnesium oral tablet 1 tablet, By Mouth, Daily, # 30 tablet, 5 Refills, Maintenance, 09/26/19 12:05:00 EST, Tablet, [place], [place] -, 1 tablet By Mouth Daily,x30 days, 172, cm, 09/26/19 8:57:00 EST, Height, 66.3, kg, 09/11/19 13:26:00 EST, Dry Weight Start Date: 09/26/19 Stop Date: 03/24/20 Status: Ordered Narcan 4 mg/0.1 mL nasal spray See Instructions, 4 mg Once may repeat every 2 to 3 minutes until patient responds, # 2 each, 1 Refills, Soft Stop, 08/24/19 9:41:00 EST, [facility] [place] -, 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 Start Date: 08/24/19 Status: Ordered pantoprazole 40 mg oral delayed release tablet 1 tablet = 40 mg, By Mouth, Daily, # 30 tablet, 0 Refills, Maintenance, 09/26/19 12:07:00 EST, EC Tablet, 172, cm, 09/26/19 8:57:00 EST, Height, 66.3, kg, 09/11/19 13:26:00 EST, Dry Weight Start Date: 09/26/19 Status: Ordered polyethylene glycol 3350 oral powder for reconstitution = 17 Gm, By Mouth, 2 times a day, PRN Constipation, dissolve in water before taking, # 527 Gm, 4 Refills, Maintenance, 06/19/19 15:17:36 EDT, REC Powder, 17 Gm By Mouth 2 times a day,x30 days,PRN:Constipation,Instr:dissolve in water before taking Start Date: 06/19/19 Stop Date: 11/16/19 Status: Ordered Problem List Condition Effective Dates [...]
--- OUTSIDE RECORDS SUMMARY | 2023-07-12 20:08 | XMS_ITS | Continuity of Care Document ---
Author Name Unknown Organization [facility] Address [address] [place] [address]- Care Team Providers Care Coke Drawer Hand Name Role Phone Namrata Prieto MD Primary Care Physician [facility] Date(s): 04/16/20 - 06/20/20 [facility] [address] [place] [address]- [facility] Attending Physician: Namrata Prieto MD Admitting Physician: Namrata Prieto MD Allergies, Adverse Reactions, Alerts Substance Reaction Severity Status shellfish Active Suboxone migraine (PO), fevers (IM) A ctive Latex rash Active Immunizations Given and Recorded Vaccine Date Status Refusal Reason influenza virus vaccine, inactivated 06/08/19 Give n Medications amLODIPine 10 mg oral tablet 10 mg, 1, tablet, By Mouth, Daily, # 30 tablet, Refills 4, Tot. Refills 4, Maintenance, 05/28/20 16:31:00 EDT, Route to Pharmacy Electronically, [facility] [id number], 171, cm, 05/28/20 16:01:00 EDT, Height, 59.5, kg, 12/29/19... Start Date: 05/28/20 Status: Ordered atovaquone 750 mg/5 mL oral suspension 10 mL = 1,500 mg, By Mouth, Daily, for 60 days, # 600 mL, 11 Refills, Acute 05/18/22 16:35:00 EDT, 05/28/20 16:35:00 EDT, Suspension, [place], [place] - [id number], Pls cancel bactrim prescription. Atovaquone to replace bactrim, 171,... Start Date: 05/28/20 Stop Date: 05/18/22 Status: Ordered Biktarvy oral tablet 1 tablet, By Mouth, Daily, for 30 days, # 30 tablet, 11 Refills, Hard Stop 05/23/21 16:35:00 EDT, 05/28/20 16:35:00 EDT, Tablet, [facility] [id number], 1 tablet By Mouth Daily,x30 days, 171, cm, 05/28/20 16:01:00 EDT, Height,... Start Date: 05/28/20 Stop Date: 05/23/21 Status: Ordered Colace sodium 100 mg oral capsule 100 mg, 1, capsule, By Mouth, 2 times a day, PRN, # 60 capsule, Refills 11, Tot. Refills 11, Maintenance, for constipation, 05/28/20 16:34:00 EDT, Route to Pharmacy Electronically, [facility] [id number], 171, cm, 05/28/20 16:0... Start Date: 05/28/20 Status: Ordered gabapentin 100 mg oral capsule 200 mg, 2, capsule, By Mouth, 3 times a day, # 180 capsule, Refills 1, Tot. Refills 1, Maintenance,05/07/20 16:16:00 EDT, Route to Pharmacy Electronically, [facility] [id number], 171, cm, 03/26/20 8:54:00 EDT, Height, 59.5, k... Start Date: 05/07/20 Stop Date: 09/04/20 Status: Ordered hydrocortisone 0.5% topical cream See Instructions, use sparingly on face, use on all other affected areas, # 28 Gm, 11 Refills, Maintenance, 05/28/20 16:37:00 EDT, [facility] [id number], use sparingly on face, use on all other affected areas, 171, cm, 2... Start Date: 05/28/20 Status: Ordered influenza virus vaccine, inactivated adjuvanted preservative-free quadrivalent intramuscular susp See Instructions, none, # 1 each, 0 Refills, Maintenance, 05/30/20 9:27:00 EDT, [facility], none, 171, cm, 05/28/20 16:01:00 EDT, Height, 59.5, kg, 12/29/19 15:28:00 EDT, Dry Weight Start Date: 05/30/20 Status: Ordered ketoconazole 2% topical cream 1 application, Topically, 2 times a day, for 28 days, use on the face, # 60 Gm, 11 Refills, Acute 04/29/21 16:40:00 EDT, 05/28/20 16:40:00 EDT, Cream, [facility] [id number], 1 application Topically 2 times a day,x28 days,Instr... Start Date: 05/28/20 Stop Date: 04/29/21 Status: Ordered ketoconazole 2% topical shampoo 1 application, Topically, Daily, try daily for 5 days as a shampoo, # 120 mL, 11 Refills, Soft Stop, 05/28/20 16:37:00 EDT, Shampoo, [facility] [id number], 1 application Topically Daily,Instr:try daily for 5 days as a shampoo,... Start Date: 05/28/20 Status: Ordered lithium 300 mg oral capsule 2 capsule = 600 mg, By Mouth, 2 times a day, # 120 capsule, 1 Refills, Maintenance, 05/07/20 16:16:00 EDT, [facility], [facility] [id number], Increase in dose per Psychiatry, 171, cm, 03/26/20 8:54:00 EDT, Height, 59.5, kg, 12/29/19 15:28... Start Date: 05/07/20 Status: Ordered LORazepam 0.5 mg oral tablet 1 tablet = 0.5 mg, By Mouth, 2 times a day, PRN Anxiety, # 60 tablet, 1 Refills, Maintenance, 05/07/20 16:16:00 EDT, Tablet, [facility], [facility] [id number], 171, cm, 03/26/20 8:54:00 EDT, Height, 59.5, [...] 5 Refills, Maintenance, 05/28/20 16:35:00 EDT, Tablet, [facility] [id number], 171, cm, 05/28/20 16:01:00 EDT, Height, 59.5, kg, 12/29/19 15:28:00 EDT, Dry Weight Start Date: 05/28/20 Stop Date: 11/24/20 Status: Ordered multivitamin with minerals Calcium and Magnesium oral tablet 1 tablet, By Mouth, Daily, # 30 tablet, 11 Refills, Maintenance, 05/28/20 16:35:00 EDT, Tablet, [facility] [id number], 1 tablet By Mouth Daily, 171, cm, 05/28/20 16:01:00 EDT, Height, 59.5, kg, 12/29/19 15:28:00 EDT, Dry Weight Start Date: 05/28/20 Stop Date: 05/23/21 Status: Ordered Narcan 4 mg/0.1 mL nasal spray See Instructions, 4 mg Once may repeat every 2 to 3 minutes until patient responds, # 2 each, 1 Refills, Soft Stop, 08/24/19 9:41:00 EST, [place], [place] -, MAMADOU García to picker feeder for Pt., 170, cm, 08/24/19 9:21:00 EST, Height, 66.36,... Start Date: 08/24/19 Status: Ordered Nicotine 2 mg gum 1 each = 2 mg, Chew, Every 2 hours, PRN as needed for smoking cessation, # 160 each, 3 Refills, Maintenance, 05/28/20 16:51:00 EDT, Gum, [facility] [id number], 171, cm, 05/28/20 16:01:00 EDT, Height, 59.5, kg, 12/29/19 15:28:0... Start Date: 05/28/20 Status: Ordered Nicotine 7 mg/24 hour patch 1 patch, Topically, Daily, for 30 days, # 30 patch, 0 Refills, Acute 06/27/20 16:51:00 EDT, 05/28/20 16:51:00 EDT, Patch, [place], [place] - [id number], 1 patch Topically Daily,x30 days, 171, cm, [...] Refills, Soft Stop, 05/30/20 9:25:00 EDT, Suspension, [facility], 0.5 mL Intramuscular Once, 171, cm, 05/28/20 16:01:00 EDT, Height, 59.5, kg,12/29/19 15:28:00 EDT, Dry Weight Start Date: 05/30/20 Status: Ordered polyethylene glycol 3350 oral powder for reconstitution = 17 Gm, By Mouth, 2 times a day, PRN Constipation, dissolve in water before taking, # 527 Gm, 3 Refills, Maintenance, 11/28/19 9:42:00 EDT, REC Powder, [place], [place] -, 17 Gm By Mouth 2 times a day,x30 days,PRN:Constipation,Instr:... Start Date: 11/28/19 Stop Date: 03/27/20 Status: Ordered SEROquel 25 mg oral tablet 25 mg, 1, tablet, By Mouth, Daily at bedtime, # 30 tablet, Refills 2, Tot. Refills 2, Maintenance, 06/14/20 20:44:00 EDT, Route to Pharmacy Electronically, [facility], 171, cm, 05/28/20 16:01:00 EDT, Height, 59.5, kg, 12/29/19 15:28:00... Start Date: 06/14/20 Stop Date: 09/12/20 Status: Ordered Viagra 50 mg oral tablet 1 tablet = 50 mg, By Mouth, Daily, PRN sexual activity, 1 hour before sexual activity, # 10 tablet,11 Refills, Maintenance, 05/29/20 20:14:00 EDT, Tablet, [facility] [place] [place] - [id number], 171, cm, 05/28/20 16:01:00 EDT, Height, 59.5, k... 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 Sex
--- OUTSIDE RECORDS SUMMARY | 2023-07-12 20:08 | XMS_ITS | Continuity of Care Document ---
Author Name Unknown Organization [facility] Address [address] [place] [address]- Care Team Providers Care Product Development Engineer Name Role Phone Conner QUEEN, Namrata Agarwal Primary Care Physician [phone] Encounter [facility] Date(s): 03/16/23 - 04/15/23 [facility] [address] [place], [place] [address] Allergies, Adverse Reactions, Alerts Substance Reaction Severity Status Latex rash Active shellfish Active Bee Stings Active Suboxone migraine (PO), fevers (IM) A [...] 02/16/23 10:45:00 EDT, Route to Pharmacy Electronically, [facility] [place] [place] - [id number], 173, cm, 01/21/23 11:36:00 EDT, Height, 93.18, kg, 2... Start Date: 02/16/23 Status: Ordered aspirin 81 mg oral tablet, chewable 81 mg, 1, tablet, By Mouth, Daily, # 90 tablet, Refills 3, Tot. Refills 3, Maintenance, 02/16/23 10:45:00 EDT, Route to Pharmacy Electronically, [facility] [id number], Partial fill upon patient request if the prescription is f... Start Date: 02/16/23 Status: Ordered atorvastatin 80 mg oral tablet 1 tablet = 80 mg, By Mouth, Daily, # 90 tablet, 3 Refills, Maintenance, 02/16/23 10:45:00 EDT, Tablet, [facility] [id number], Partial fill upon patient request if the prescription is for a schedule II opioid drug., 173, cm, 05... Start Date: 02/16/23 Status: Ordered Biktarvy oral tablet 1 tablet, By Mouth, Daily, must get appt and labs for refills, # 30 tablet, 0 Refills, Maintenance,12/16/22 19:18:00 EDT, [facility] [id number], 30, 1 tablet By Mouth Daily,Instr:must get appt and labs for refills, 173, cm, 0... Start Date: 12/16/22 Status: Ordered Colace sodium 100 mg oral capsule 100 mg, 1, capsule, By Mouth, 2 times a day, PRN, # 180 capsule, Refills 3, Tot. Refills 3, Maintenance, for constipation, 02/16/23 10:45:00 EDT, Route to Pharmacy Electronically, [facility] [id number], Partial fill upon patie... Start Date: 02/16/23 Status: Ordered EpiPen 2-Devin 0.3 mg injectable kit = 0.3 mg, Intramuscular, Once, may repeat if necessary, # 2 each, 1 Refills, Soft Stop, 04/14/23 14:07:00 EDT, [facility] [id number], Partial fill upon patient request if theprescription is for a schedule II opioid drug., 176... Start Date: 04/14/23 Status: Ordered fluticasone-salmeterol 250 mcg-50 mcg inhalation powder 1, puffs, Inhalation, 2 times a day, # 3 each, Refills 3, Tot. Refills 3, Maintenance, 02/16/23 10:45:00 EDT, Powder, Route to Pharmacy Electronically, [id number], [facility], [place] - [id number], 173, cm, 01/04... Start Date: 02/16/23 Status: Ordered Incruse Ellipta 62.5 mcg/inh inhalation powder 1 puffs, Inhalation, Every 24 hours, # 3 each, 3 Refills, Maintenance, 02/16/23 10:45:00 EDT, [place], [place] - [id number], 173, cm, 01/21/23 11:36:00 EDT, Height, 93.18, kg, 08/12/22 0:40:00 EST, Dry Weight Start Date: 02/16/23 Status: Ordered Organ 200 mg, By Mouth, Daily at bedtime, [...] tablet, 3 Refills,Maintenance, 02/16/23 10:45:00 EDT, Tablet, [place], [place] - [id number], Partialfill upon patient request if the prescription is fo... Start Date: 02/16/23 Status: Ordered Ventolin HFA 108 mcg/inh inhalation aerosol with adapter 2 puffs, Inhalation, 4 times a day, PRN for wheezing, # 3 each, 3 Refills, Maintenance, 02/16/23 10:45:00 EDT, Aerosol, [facility] [id number], Partial fill upon patient request if the prescription is for a schedule II opioid d... Start Date: 02/16/23 Status: Ordered Vitamin D3 1000 intl units oral capsule 1 capsule = 25 mcg, By Mouth, Daily, # 90 capsule, 3 Refills, Maintenance, 02/16/23 10:45:00 EDT, Capsule, [place], [place] - [id number], D/c vitamin high dosed, 173, cm, 01/21/23 [...] - 01/2019 Confirmed Active Depression - Olinda [facility], [facility] Confirmed Active Diastolic dysfunction 1 Confirmed [...] more)/day in last 30 days entered on: 4/1/22 Sex Patient Care team information Care Team Personnel Name: Jadiel Watson RN Position: [facility] ED RN W/OE and Tasks Member Role: Primary Care Nurse Name: Dede Mccloud RN Position: [facility] RN Member Role: Primary Care Nurse Name: Judy Gonzales RN Position: [facility] RN Member Role: Primary Care Nurse Name: Jake Moon Position: [facility] RN Supv Member Role: Primary Care Nurse Name: Enma Manriquez RN Position: [facility] AMB Nurse Member Role: Primary Care Nurse Name: Zuhair Lopez RN Position: [facility] RN Member Role: Primary Care Nurse Name: Edie Bob RN Position: [facility] RN Member Role: Primary Care Nurse Name: Lisbet Gardiner RN Position: [facility] RN Member Role: Primary Care Nurse Name: Namrata Prieto MD Position: [facility] Physician - Primary Care Member Role: PCP Address: Address: [address] [place] [id number]- Name: Carolina Valero RN Position: [facility] RN Member Role: Primary Care Nurse Name: Nishi San RN Position: [facility] RN Member Role: Primary Care Nurse Name: Micky Boyd RN Position: [facility] RN Member Role: Primary Care Nurse Name: Lauri Combs NP Position: Reference Physician Member Role: Primary Care Nurse Address: Address: [address] [place] [address] [address] [facility] [place] [address]- [place] Name: Griselda Rand Position: [facility] RN Supv Member Role: Primary Care Nurse Care Team Related Persons Name: LUIS SAN Address: [place] [address] Name: BROOKE OWEN Address: home [address] [address] Name: KARYN OWEN Address: home [address] [place] [address] Name: DOMINGO LEONE Address: home [address] [place] [address]
--- OUTSIDE RECORDS SUMMARY | 2023-07-12 20:09 | XMS_ITS | Continuity of Care Document ---
Author Name Unknown Organization [facility] Address [address] [place] [id number]- Care Team Providers Care Drill Runner Name Role Phone Namrata Prieto MD Primary Care Physician Encounter [facility] Date(s): 05/20/22 - 08/01/22 [facility] [address] [place] [id number] Attending Physician: Namrata Prieto MD Admitting Physician: Namrata Prieto MD Referring Physician: Namrata Prieto MD Allergies, [...] 8:46:00 EST, Powder, Route to Pharmacy Electronically, [id number], [facility] - Spr... Start Date: 07/20/22 Stop Date: 07/15/23 Status: Ordered Albuterol (Eqv-ProAir HFA) 90 mcg/inh inhalation aerosol 2 puffs, Inhalation, Every 6 hours, # 8.5 Gm, 11 Refills, 08/25/21 12:34:00 EST, [facility] [id number], 25, 2 puffs Inhalation Every 6 hours, 173, cm, 08/25/21 12:31:00 EST, Height, 84, kg, 04/19/21 2:36:00 EDT, Dry Weight Start Date: 08/25/21 Status: Ordered amLODIPine 10 mg oral tablet 10 mg, 1, tablet, By Mouth, Daily, # 30 tablet, Refills 11, Tot. Refills 11, Maintenance, 07/20/22 8:43:00 EST, Route to Pharmacy Electronically, [facility] [id number], 173, cm, 05/10/22 20:46:00 EDT, Height, 95.5, kg, ... Start Date: 07/20/22 Status: Ordered Asperflex 4% topical film 1 patch, Topically, Daily, for 30 days, # 30 patch, 11 Refills, Acute 03/12/23 14:41:00 EDT, 03/17/22 14:41:00 EDT, [facility] [id number], Partial fill upon patient request if the prescription is for a schedule II opioid drug.... Start Date: 03/17/22 Stop Date: 03/12/23 Status: Ordered aspirin 81 mg oral tablet, chewable 81 mg, 1, tablet, By Mouth, Daily, # 30 tablet, Refills 11, Tot. Refills 11, Maintenance, 07/20/22 8:43:00 EST, Route to Pharmacy Electronically, [facility] [id number], Partial fill upon patient request if the prescription is... Start Date: 07/20/22 Stop Date: 11/12/23 Status: Ordered atorvastatin 80 mg oral tablet 1 tablet = 80 mg, By Mouth, Daily, # 30 tablet, 11 Refills, Maintenance, 07/20/22 8:43:00 EST, Tablet, [facility] [id number], Partial fill upon patient request if the prescription is for a schedule II opioid drug., 173, cm, 09... Start Date: 07/20/22 Status: Ordered Biktarvy oral tablet 1 tablet, By Mouth, Daily, # 30 tablet, 5 Refills, Maintenance, 07/20/22 8:36:00 EST, [facility] [id number], 30, 1 tablet By Mouth Daily, 173, cm, 05/10/22 20:46:00 EDT, Height, 95.5, kg, 05/10/22 20:46:00 EDT, Dry Weight Start Date: 07/20/22 Status: Ordered bisacodyl 10 mg rectal suppository [...] 1 Refills, Soft Stop, 03/05/22 10:37:00 EDT, [facility] [id number], Partial fill upon patient request if the prescriptio... Start Date: 03/05/22 Status: Ordered hydrocortisone 0.5% topical cream See Instructions, use sparingly on face, use on all other affected areas, # 28 Gm, 11 Refills, Maintenance, 03/07/21 6:50:00 EDT, [facility] [id number], use sparingly on face, use on all other affected areas, 174, cm, 01/13/21... Start Date: 03/07/21 Status: Ordered Incruse Ellipta 62.5 mcg/inh inhalation powder 1 puffs, Inhalation, Every 24 hours, doses should be taken AT least 24 HOURS APART, # 30 Unknown, 11 Refills, 08/25/21 12:34:00 EST, [facility] [id number], 173, cm, 08/25/21 12:31:00 EST, Height, 84, kg, 04/19/21 2:36:00 EDT,... Start Date: 08/25/21 Status: Ordered ketoconazole 2% topical cream 1 application, Topically, Daily, # 30 Gm, 11 Refills, Maintenance, 04/20/22 9:23:00 EDT, [id number], 1 application Topically Daily, 173, cm, 12/05/21 17:38:00 EDT,Height, 127, kg, 12/05/21 17:38:00 EDT, Dry Weight Start Date: 04/20/22 Status: Ordered Lidoderm 5% film 1 patch, Topically, Daily, # 30 patch, 11 Refills, Maintenance, 03/19/22 21:12:00 EDT[id number], Partial fill upon patient request if the [...] 11 Refills, Maintenance, 07/20/22 8:43:00 EST, Tablet, [id number], 1 tablet By Mouth Daily, 173, cm, 05/10/22 20:46:00 EDT,Height, 95.5, kg, 05/10/22 20:46:00 EDT, Dry Weight Start Date: 07/20/22 Status: Ordered Narcan 4 mg/0.1 mL nasal spray See Instructions, 4 mg Once may repeat every 2 to 3 minutes until patient responds, # 2 each, 3 Refills, Soft Stop, 03/05/22 10:07:00 EDT, [facility] [place] - [id number], 173, cm, 12/05/21 17:38:00 EDT, Height, 127, kg, 12/05/21 17:38... Start Date: 03/05/22 Status: Ordered Nicotine 2 mg gum 1 each = 2 mg, Chew, Every 2 hours, PRN as needed for smoking cessation, for 4 week(s), # 160 each,11 Refills, Acute 09/11/22 12:53:00 EST, 10/10/21 12:53:00 EST, Gum, [facility] [id number], Partial fill upon patient request... Start Date: 10/10/21 Stop Date: 09/11/22 Status: Ordered ondansetron 4 mg oral tablet, disintegrating 1 tablet = 4 mg, By Mouth, Every 8 hours, PRN as needed for nausea/vomiting, # 12 tablet, 11 Refills, Maintenance, 08/21/21 13:33:00 EST, DIS Tablet, [facility] [id number], Partial fill upon patient request if the prescription... Start Date: 08/21/21 Status: Ordered pantoprazole 40 mg oral delayed release tablet 1 tablet = 40 mg, By Mouth, Daily, # 30 tablet, 11 Refills, Maintenance, 07/20/22 8:43:00 EST, EC Tablet, 173, cm, 05/10/22 20:46:00 EDT, Height, 95.5, kg, 05/10/22 20:46:00 EDT, Dry Weight Start Date: 07/20/22 Status: Ordered polyethylene glycol 3350 oral powder for reconstitution = 17 Gm, By Mouth, 2 times a day, PRN Constipation, dissolve in water before taking, # 527 Gm, 3 Refills, Maintenance, 12/02/21 16:55:00 EDT, REC Powder, [facility], [facility] [id number], 17 Gm By Mouth 2 times a day,x30 days,PRN:Constip... Start Date: 12/02/21 Stop Date: 04/01/22 Status: Ordered rOPINIRole 0.5 mg oral tablet 1 tablet = 0.5 mg, By Mouth, Daily at bedtime, 1 to 3 hours before bedtime, # 30 tablet, 11 Refills, Maintenance, 07/20/22 8:43:00 EST, Tablet, [facility] [id number], Partialfill upon patient request if the prescription is fo... Start Date: 07/20/22 Status: Ordered sildenafil 100 mg oral tablet 1 tablet = 100 mg, By Mouth, Daily, 1 hour before sexual activity, # 20 tablet, 11 Refills, Maintenance, 04/20/22 9:24:00 EDT, Tablet, [facility] [id number], disreguard last script for 0.5 tab, 173, cm, 12/05/21 17:38:00 EDT,... Start Date: 04/20/22 Status: Ordered varenicline 1mg tablet 1 tablet = 1 mg, By Mouth, Daily, 0.5 tab daily x 3 days then 0.5 tab BID x 3 days then 1 tab BID, # 30 tablet, 4 Refills, Maintenance, 04/01/22 16:45:00 EDT, Tablet, [facility] [id number], Partial fill upon patient request if... Start Date: 04/01/22 Status: Ordered Ventolin HFA 108 mcg/inh inhalation aerosol with adapter 2 puffs, Inhalation, 4 times a day, PRN for wheezing, # 1 each, 11 Refills, Maintenance, 07/20/22 8:44:00 EST, Aerosol, [facility] [id number], Partial fill upon patient request if the prescription is for a schedule II opioid d... Start Date: 07/20/22 Status: Ordered Vitamin D2 50,000 intl units [...] 11 Refills, Maintenance, 06/04/22 17:32:00 EDT, Capsule, [facility] [id number], D/c vitamin high dosed, 173, cm, 05/10/22 [...] - 01/2019 Confirmed Active Depression - [facility] Confirmed Active Diastolic dysfunction 1 Confirmed [...] Team Personnel Name: Jadiel Watson RN Position: [facility] ED RN W/OE and Tasks Member Role: Primary Care Nurse Name: Dede Mccloud RN Position: [facility] RN Member Role: Primary Care Nurse Name: Judy Gonzales RN Position: [facility] RN Member Role: Primary Care Nurse Name: Enma Manriquez RN Position: [facility] RN Member Role: Primary Care Nurse Name: Zuhair Lopez RN Position: [facility] RN Member Role: Primary Care Nurse Name: Cathryn Allen RN Position: [facility] RN Member Role: Primary Care Nurse Name: Edie Bob RN Position: [facility] RN Member Role: Primary Care Nurse Name: Lisbet Gardiner RN Position: [facility] RN Member Role: Primary Care Nurse Name: Namrata Prieto MD Position: [facility] Primary Care Physician Member Role: PCP Address: Address: [address] [place] [address], -[facility] [place] [address]- Name: Carolina Valero RN Position: [facility] RN Member Role: Primary Care Nurse Name: Nishi San RN Position: S RN Member Role: Primary Care Nurse Name: Micky Boyd RN Position: S RN Member Role: Primary Care Nurse Name: Lauri Combs NP Position: Reference Physician Member Role: Primary Care Nurse Address: Address: [address] [place] [address] [address] [facility] [place] [address]- [place] Care Team Related Persons Name: LUIS SAN Address: [place] [address] Name: BROOKE OWEN Address: home [address] [address] Name: KARYN OWEN Address: home [address] [place] [address] Name: DOMINGO LEONE Address: [address] [place] [address]
--- OUTSIDE RECORDS SUMMARY | 2023-07-12 20:09 | XMS_ITS | Continuity of Care Document ---
Author Name Unknown Organization [facility] Address [address] [place] [address]- Care Team Providers Care Truck Greaser Name Role Phone Namrata Prieto MD Primary Care Physician [phone] Encounter [facility] Date(s): 09/30/20 - 10/30/20 [facility] [address] [place] [address]- Attending Physician: Admtr, [place] Admitting Physician: Admtr, [place] Referring Physician: Admtr, [...] tablet, Refills 5, Tot. Refills 5, Maintenance, 10/28/20 9:30:00 EST, Route to Pharmacy Electronically, [place], [place] - [id number], 173, cm, 07/17/20 19:29:00 EST, Height, 83.9, kg, 07/17/20... Start Date: 10/28/20 Status: Ordered atovaquone 750 mg/5 mL oral suspension 10 mL = 1,500 mg, By Mouth, Daily, for 60 days, # 600 mL, 11 Refills, Acute 05/18/22 16:35:00 EDT, 05/28/20 16:35:00 EDT, Suspension, [place], [place] - [id number], Pls cancel bactrim prescription. Atovaquone to replace bactrim, 171,... Start Date: 05/28/20 Stop Date: 05/18/22 Status: Ordered azithromycin 500 mg oral tablet 2 tablet = 1,000 mg, By Mouth, Once, take both tablets at once, # 2 tablet, 0 Refills, Soft Stop, 06/27/20 17:56:00 EDT, Tablet, [facility] [id number], 171, cm, 05/28/20 16:01:00 EDT, Height, 59.5, kg, 12/29/19 15:28:00 EDT, D... Start Date: 06/27/20 Status: Ordered Biktarvy oral tablet 1 tablet, By Mouth, Daily, for 30 days, # 30 tablet, 11 Refills, Hard Stop 05/23/21 16:35:00 EDT, 05/28/20 16:35:00 EDT, Tablet, [facility] [id number], 1 tablet By Mouth Daily,x30 days, 171, cm, 05/28/20 16:01:00 EDT, Height,... Start Date: 05/28/20 Stop Date: 05/23/21 Status: Ordered Colace sodium 100 mg oral capsule 100 mg, 1, capsule, By Mouth, 2 times a day, PRN, # 60 capsule, Refills 11, Tot. Refills 11, Maintenance, for constipation, 05/28/20 16:34:00 EDT, Route to Pharmacy Electronically, [facility] [id number], 171, cm, 05/28/20 16:0... Start Date: 05/28/20 [...] Dx: Chronic Venous Insufficiency (I87.2) Duration: Lifetime, 08/19/20 13:49:00 EST, Supply Start Date: 08/19/20 Status: Ordered gabapentin 100 mg oral capsule 200 mg, 2, capsule, By Mouth, 3 times a day, # 180 capsule, Refills 11, Tot. Refills 11, Maintenance, 06/28/20 13:01:00 EDT, Route to Pharmacy Electronically, [facility] [id number], 171, cm, 05/28/20 16:01:00 EDT, Height, 59.5... Start Date: 06/28/20 Status: Ordered hydrocortisone 0.5% topical cream See Instructions, use sparingly on face, use on all other affected areas, # 28 Gm, 11 Refills, Maintenance, 05/28/20 16:37:00 EDT, [facility] [id number], use sparingly on face, use on all other affected areas, 171, cm, 2... Start Date: 05/28/20 Status: Ordered influenza virus vaccine, inactivated adjuvanted preservative-free quadrivalent intramuscular susp See Instructions, none, # 1 each, 0 Refills, Maintenance, 05/30/20 9:27:00 EDT, [facility], none, 171, cm, 05/28/20 16:01:00 EDT, Height, 59.5, kg, 12/29/19 15:28:00 EDT, Dry Weight Start Date: 05/30/20 Status: Ordered ketoconazole 2% topical cream 1 application, Topically, 2 times a day, for 28 days, use on the face, # 60 Gm, 11 Refills, Acute 04/29/21 16:40:00 EDT, 05/28/20 16:40:00 EDT, Cream, [facility] [id number], 1 application Topically 2 times a day,x28 days,Instr... Start Date: 05/28/20 Stop Date: 04/29/21 Status: Ordered ketoconazole 2% topical shampoo 1 application, Topically, Daily, try daily for 5 days as a shampoo, # 120 mL, 11 Refills, Soft Stop, 05/28/20 16:37:00 EDT, Shampoo, [facility], [facility] [id number], 1 application Topically Daily,Instr:try daily for 5 days as a shampoo,... Start Date: 05/28/20 Status: Ordered lithium 300 mg oral capsule 2 capsule = 600 mg, By Mouth, 2 times a day, # 120 capsule, 2 Refills, Maintenance, 06/28/20 12:56:00 EDT, [facility], [facility] [id number], Increase in dose per Psychiatry, 171, cm, 05/28/20 16:01:00 EDT, Height, 59.5, kg, 12/29/19 15:2... Start Date: 06/28/20 Status: Ordered LORazepam 0.5 mg oral tablet 1 tablet = 0.5 mg, By Mouth, 2 times a day, PRN Anxiety, # 60 tablet, 2 Refills, Maintenance, 06/28/20 12:56:00 EDT, Tablet, [facility] [id number], 171, cm, 05/28/20 16:01:00EDT, Height, 59.5, kg, 12/29/19 15:28:00 EDT, Dry W... Start Date: 06/28/20 Status: Ordered Mavyret 100 mg-40 mg oral tablet 3 tablet, By Mouth, Daily, with food, # 252 tablet, 0 Refills, Maintenance, 07/08/20 15:34:00 EST, Tablet, [facility], 3 tablet By Mouth [...] 5 Refills, Maintenance, 05/28/20 16:35:00 EDT, Tablet, [facility], [facility] [id number], 171, cm, 05/28/20 16:01:00 EDT, Height, 59.5, kg, 12/29/19 15:28:00 EDT, Dry Weight Start Date: 05/28/20 Stop Date: 11/24/20 Status: Ordered multivitamin with minerals Calcium and Magnesium oral tablet 1 tablet, By Mouth, Daily, # 30 tablet, 11 Refills, Maintenance, 05/28/20 16:35:00 EDT, Tablet, [facility] [id number], 1 tablet By Mouth Daily, 171, cm, 05/28/20 16:01:00 EDT, Height, 59.5, kg, 12/29/19 15:28:00 EDT, Dry Weight Start Date: 05/28/20 Stop Date: 05/23/21 Status: Ordered Narcan 4 mg/0.1 mL nasal spray See Instructions, 4 mg Once may repeat every 2 to 3 minutes until patient responds, # 2 each, 1 Refills, Soft Stop, 08/24/19 9:41:00 EST, [place], [place] -, MAMADOU García to shredder picker for Pt., 170, cm, 08/24/19 9:21:00 EST, Height, 66.36,... Start Date: 08/24/19 Status: Ordered Nicotine 2 mg gum 1 each = 2 mg, Chew, Every 2 hours, PRN as needed for smoking cessation, # 160 each, 3 Refills, Maintenance, 05/28/20 16:51:00 EDT, Gum, [facility] [id number], 171, cm, 05/28/20 16:01:00 EDT, Height, 59.5, [...] Refills, Soft Stop, 05/30/20 9:25:00 EDT, Suspension, [facility], 0.5 mL Intramuscular Once, 171, cm, 05/28/20 16:01:00 EDT, Height, 59.5, kg,12/29/19 15:28:00 EDT, Dry Weight Start Date: 05/30/20 Status: Ordered polyethylene glycol 3350 oral powder for reconstitution = 17 Gm, By Mouth, 2 times a day, PRN Constipation, dissolve in water before taking, # 527 Gm, 3 Refills, Maintenance, 11/28/19 9:42:00 EDT, REC Powder, [place], [place] -, 17 Gm By Mouth 2 times a day,x30 days,PRN:Constipation,Instr:... Start Date: 11/28/19 Stop Date: 03/27/20 Status: Ordered SEROquel 25 mg oral tablet 25 mg, 1, tablet, By Mouth, Daily at bedtime, # 30 tablet, Refills 2, Tot. Refills 2, Maintenance, 06/14/20 20:44:00 EDT, Route to Pharmacy Electronically, [facility], 171, cm, 05/28/20 16:01:00 EDT, Height, 59.5, kg, 12/29/19 15:28:00... Start Date: 06/14/20 Stop Date: 09/12/20 Status: Ordered sildenafil 100 mg oral tablet 1 tablet = 100 mg, By Mouth, Daily, 1 hour before sexual activity, # 10 tablet, 5 Refills, Maintenance, 09/04/20 14:26:00 EST, Tablet, [place], [place] - [id number], Partial fill upon patient request if the prescription is for a sched... 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 Sex
--- OUTSIDE RECORDS SUMMARY | 2023-07-12 20:09 | XMS_ITS | Continuity of Care Document ---
Author Name Unknown Organization [facility] Address [address] [place] [address]- Care Team Providers Care Boy'S Adviser Name Role Phone Namrata Prieto MD Primary Care Physician Encounter [facility] Date(s): 03/03/22 - 04/03/[address] [address] Attending Physician: Stanley Cee MD Admitting Physician: Stanley Cee MD Referring Physician: Namrata Prieto MD Allergies, [...] 8:29:00 EDT, Powder, Route to Pharmacy Electronically, [id number], [facility] - Spr... Start Date: 01/07/22 Stop Date: 01/02/23 Status: Ordered Albuterol (Eqv-ProAir HFA) 90 mcg/inh inhalation aerosol 2 puffs, Inhalation, Every 6 hours, # 8.5 Gm, 11 Refills, 08/25/21 12:34:00 EST, [facility] [id number], 25, 2 puffs Inhalation Every 6 hours, 173, cm, 08/25/21 12:31:00 EST, Height, 84, kg, 04/19/21 2:36:00 EDT, Dry Weight Start Date: 08/25/21 Status: Ordered amLODIPine 10 mg oral tablet 10 mg, 1, tablet, By Mouth, Daily, # 30 tablet, Refills 11, Tot. Refills 11, Maintenance, 08/27/21 16:46:00 EST, Route to Pharmacy Electronically, [facility] [id number], 173,cm, 08/25/21 12:31:00 EST, Height, 84, kg, 04/19/21... Start Date: 08/27/21 Status: Ordered Asperflex 4% topical film 1 patch, Topically, Daily, for 30 days, # 30 patch, 11 Refills, Acute 03/12/23 14:41:00 EDT, 03/17/22 14:41:00 EDT, [facility] [id number], Partial fill upon patient request if the prescription is for a schedule II opioid drug.... Start Date: 03/17/22 Stop Date: 03/12/23 Status: Ordered aspirin 81 mg oral tablet, chewable 81 mg, 1, tablet, By Mouth, Daily, # 120 tablet, Refills 3, Tot. Refills 3, Maintenance, 10/02/21 11:47:00 EST, Route to Pharmacy Electronically, [facility] [id number], Partial fill upon patient request if the prescription is... Start Date: 10/02/21 Stop Date: 01/25/23 Status: Ordered atorvastatin 80 mg oral tablet 1 tablet = 80 mg, By Mouth, Daily, # 30 tablet, 11 Refills, Maintenance, 11/07/21 14:34:00 EST, Tablet, [facility] [id number], Partial fill upon patient request if the prescription is for a schedule II opioid drug., 170, cm, 0... Start Date: 11/07/21 Status: Ordered atovaquone 750 mg/5 mL oral suspension 10 mL = 1,500 mg, By Mouth, Daily, for 60 days, # 600 mL, 11 Refills, Acute 10/28/23 14:35:00 EST, 11/07/21 14:35:00 EST, Suspension, [facility] [id number], Pls cancel bactrim prescription. Atovaquone to replace bactrim, 170,... Start Date: 11/07/21 Stop Date: 10/28/23 Status: Ordered Biktarvy oral tablet 1 tablet, By Mouth, Daily, # 30 tablet, 11 Refills, [facility], 30, TAKE ONE TABLET BY MOUTH DAILY, 173, cm, 04/21/21 8:17:00 EDT, Height, 84, kg, 04/19/21 2:36:00 EDT, Dry Weight Start Date: 06/25/21 Status: Ordered Colace sodium 100 mg oral capsule 100 mg, 1, capsule, By Mouth, 2 times a day, PRN, # 60 capsule, Refills 11, Tot. Refills 11, Maintenance, for constipation, 12/02/21 16:54:00 EDT, Route to Pharmacy Electronically, [facility] [id number], Partial fill upon pilar... Start Date: 12/02/21 [...] 1 Refills, Soft Stop, 03/05/22 10:37:00 EDT, [facility] [id number], Partial fill upon patient request if the prescriptio... Start Date: 03/05/22 Status: Ordered ergocalciferol 04071 iu oral capsule 50,000 International_Units, 1, capsule, By Mouth, Every week, for 30 days, # 5 capsule, Refills 1, Tot. Refills 1, Acute 05/04/22 10:22:00 EDT, 03/05/22 10:22:00 EDT, Route to Pharmacy Electronically, [facility] [id number], 17... Start Date: 03/05/22 Stop Date: 05/04/22 Status: Ordered hydrocortisone 0.5% topical cream See Instructions, use sparingly on face, use on all other affected areas, # 28 Gm, 11 Refills, Maintenance, 03/07/21 6:50:00 EDT, [facility] [id number], use sparingly on face, use on all other affected areas, 174, cm, 01/13/21... Start Date: 03/07/21 Status: Ordered Incruse Ellipta 62.5 mcg/inh inhalation powder 1 puffs, Inhalation, Every 24 hours, doses should be taken AT least 24 HOURS APART, # 30 Unknown, 11 Refills, 08/25/21 12:34:00 EST, [facility] [id number], 173, cm, 08/25/21 12:31:00 EST, Height, 84, kg, 04/19/21 2:36:00 EDT,... Start Date: 08/25/21 Status: Ordered ketoconazole 2% topical cream 1 application, Topically, Daily, # 30 Gm, 11 Refills, Maintenance, 12/02/21 16:56:00 EDT, [facility] [id number], 1 application Topically Daily, 170, cm, 10/10/21 13:45:00 EST, Height, 110, kg, 09/29/21 21:14:00 EST, Dry Weight Start Date: 12/02/21 Status: Ordered Lidoderm 5% film 1 patch, Topically, Daily, # 30 patch, 11 Refills, Maintenance, 03/19/22 21:12:00 EDT, [facility] [id number], Partial fill upon patient request if the [...] 0 Refills, Maintenance, 11/11/21 17:22:00 EST, Tablet, [facility] [id number], 170, cm, 10/10/21 13:45... Start Date: 11/11/21 Stop Date: 12/11/21 Status: Ordered multivitamin with minerals Calcium and Magnesium oral tablet 1 tablet, By Mouth, Daily, # 30 tablet, 11 Refills, Maintenance, 12/15/21 6:32:00 EDT, Tablet, [facility] [id number], 1 tablet By Mouth Daily, 173, cm, 12/05/21 17:38:00 EDT,Height, 127, kg, 12/05/21 17:38:00 EDT, Dry Weight Start Date: 12/15/21 Status: Ordered Narcan 4 mg/0.1 mL nasal spray See Instructions, 4 mg Once may repeat every 2 to 3 minutes until patient responds, # 2 each, 3 Refills, Soft Stop, 03/05/22 10:07:00 EDT, [facility], [facility] [id number], 173, cm, 12/05/21 17:38:00 EDT, Height, 127, kg, 12/05/21 17:38... Start Date: 03/05/22 Status: Ordered Nicotine 2 mg gum 1 each = 2 mg, Chew, Every 2 hours, PRN as needed for smoking cessation, for 4 week(s), # 160 each,11 Refills, Acute 09/11/22 12:53:00 EST, 10/10/21 12:53:00 EST, Gum, [facility] [id number], Partial fill upon patient request... Start Date: 10/10/21 Stop Date: 09/11/22 Status: Ordered ondansetron 4 mg oral tablet, disintegrating 1 tablet = 4 mg, By Mouth, Every 8 hours, PRN as needed for nausea/vomiting, # 12 tablet, 11 Refills, Maintenance, 08/21/21 13:33:00 EST, DIS Tablet, [facility], [facility] [id number], Partial fill upon patient request if the [...] Refills, Maintenance, 12/02/21 16:55:00 EDT, REC Powder, [facility], [facility] [id number], 17 Gm By Mouth 2 times a day,x30 days,PRN:Constip... Start Date: 12/02/21 Stop Date: 04/01/22 Status: Ordered rOPINIRole 0.5 mg oral tablet 1 tablet = 0.5 mg, By Mouth, Daily at bedtime, 1 to 3 hours before bedtime, # 30 tablet, 11 Refills, Maintenance, 08/21/21 13:32:00 EST, Tablet, [facility], [facility] [id number], Partial fill upon patient request if the prescription is f... Start Date: 08/21/21 Status: Ordered Senna 8.6 mg oral tablet 1 or 2 tablets, By Mouth, Daily at bedtime, PRN, # 60 tablet, Refills 5, Tot. Refills 5, Maintenance, Constipation, 10/10/21 14:43:00 EST, Route to Pharmacy Electronically, [facility] [id number] Tablet, Partial fill upon patie... Start Date: 10/10/21 Status: Ordered sildenafil 100 mg oral tablet 1 tablet = 100 mg, By Mouth, Daily, 1 hour before sexual activity, # 20 tablet, 11 Refills, Maintenance, 03/07/21 6:49:00 EDT, Tablet, [facility] [id number], Partial fill upon patient request if the prescription is for a sched... Start Date: 03/07/21 Status: Ordered varenicline 1mg tablet 1 tablet = 1 mg, By Mouth, Daily, 0.5 tab daily x 3 days then 0.5 tab BID x 3 days then 1 tab BID, # 30 tablet, 4 Refills, Maintenance, 04/01/22 16:45:00 EDT, Tablet, [facility] [id number], Partial fill upon patient request if... 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
--- OUTSIDE RECORDS SUMMARY | 2023-07-12 20:09 | XMS_ITS | Continuity of Care Document ---
Author Name Unknown Organization [facility] Address [address] [place] [address]- Care Team Providers Care Business Planning Manager Name Role Phone Conner QUEEN, Namrata Agarwal Primary Care Physician Encounter [facility] Date(s): 07/30/20 - 08/29/20 [facility] [address] [place] [address]- Encounter Diagnosis HIV disease - 01/2019(Discharge Diagnosis) - 07/30/20 Allergies, Adverse Reactions, Alerts Substance Reaction Severity [...] 05/28/20 16:31:00 EDT, Route to Pharmacy Electronically, [place], [place] - [id number], 171, cm, 05/28/20 16:01:00 EDT, Height, 59.5, kg, 12/29/19... Start Date: 05/28/20 Status: Ordered atovaquone 750 mg/5 mL oral suspension 10 mL = 1,500 mg, By Mouth, Daily, for 60 days, # 600 mL, 11 Refills, Acute 05/18/22 16:35:00 EDT, 05/28/20 16:35:00 EDT, Suspension, [place], [place] - [id number], Pls cancel bactrim prescription. Atovaquone to replace bactrim, 171,... Start Date: 05/28/20 Stop Date: 05/18/22 Status: Ordered azithromycin 500 mg oral tablet 2 tablet = 1,000 mg, By Mouth, Once, take both tablets at once, # 2 tablet, 0 Refills, Soft Stop, 06/27/20 17:56:00 EDT, Tablet, [facility] [id number], 171, cm, 05/28/20 16:01:00 EDT, Height, 59.5, kg, 12/29/19 15:28:00 EDT, D... Start Date: 06/27/20 Status: Ordered Biktarvy oral tablet 1 tablet, By Mouth, Daily, for 30 days, # 30 tablet, 11 Refills, Hard Stop 05/23/21 16:35:00 EDT, 05/28/20 16:35:00 EDT, Tablet, [facility] [id number], 1 tablet By Mouth Daily,x30 days, 171, cm, 05/28/20 16:01:00 EDT, Height,... Start Date: 05/28/20 Stop Date: 05/23/21 Status: Ordered Colace sodium 100 mg oral capsule 100 mg, 1, capsule, By Mouth, 2 times a day, PRN, # 60 capsule, Refills 11, Tot. Refills 11, Maintenance, for constipation, 05/28/20 16:34:00 EDT, Route to Pharmacy Electronically, [facility] [id number], 171, cm, 05/28/20 16:0... Start Date: 05/28/20 [...] 06/28/20 13:01:00 EDT, Route to Pharmacy Electronically, [facility] [id number], 171, cm, 05/28/20 16:01:00 EDT, Height, 59.5... Start Date: 06/28/20 Status: Ordered hydrocortisone 0.5% topical cream See Instructions, use sparingly on face, use on all other affected areas, # 28 Gm, 11 Refills, Maintenance, 05/28/20 16:37:00 EDT, [facility] [id number], use sparingly on face, use on all other affected areas, 171, cm, ... Start Date: 05/28/20 Status: Ordered influenza virus vaccine, inactivated adjuvanted preservative-free quadrivalent intramuscular susp See Instructions, none, # 1 each, 0 Refills, Maintenance, 05/30/20 9:27:00 EDT, [facility], none, 171, cm, 05/28/20 16:01:00 EDT, Height, 59.5, kg, 12/29/19 15:28:00 EDT, Dry Weight Start Date: 05/30/20 Status: Ordered ketoconazole 2% topical cream 1 application, Topically, 2 times a day, for 28 days, use on the face, # 60 Gm, 11 Refills, Acute 04/29/21 16:40:00 EDT, 05/28/20 16:40:00 EDT, Cream, [facility] [id number], 1 application Topically 2 times a day,x28 days,Instr... Start Date: 05/28/20 Stop Date: 04/29/21 Status: Ordered ketoconazole 2% topical shampoo 1 application, Topically, Daily, try daily for 5 days as a shampoo, # 120 mL, 11 Refills, Soft Stop, 05/28/20 16:37:00 EDT, Shampoo, [facility] [id number], 1 application Topically Daily,Instr:try daily for 5 days as a shampoo,... Start Date: 05/28/20 Status: Ordered lithium 300 mg oral capsule 2 capsule = 600 mg, By Mouth, 2 times a day, # 120 capsule, 2 Refills, Maintenance, 06/28/20 12:56:00 EDT, [facility] [place] [facility], [facility] [id number], Increase in dose per Psychiatry, 171, cm, 05/28/20 16:01:00 EDT, Height, 59.5, kg, 12/29/19 15:2... Start Date: 06/28/20 Status: Ordered LORazepam 0.5 mg oral tablet 1 tablet = 0.5 mg, By Mouth, 2 times a day, PRN Anxiety, # 60 tablet, 2 Refills, Maintenance, 06/28/20 12:56:00 EDT, Tablet, [facility] [place] [facility], [facility] [id number], 171, cm, 05/28/20 16:01:00EDT, Height, 59.5, kg, 12/29/19 15:28:00 EDT, Dry W... Start Date: 06/28/20 Status: Ordered Mavyret 100 mg-40 mg oral tablet 3 tablet, By Mouth, Daily, with food, # 252 tablet, 0 Refills, Maintenance, 07/08/20 15:34:00 EST, Tablet, [facility], 3 tablet By Mouth [...] Maintenance, 05/28/20 16:35:00 EDT, Tablet, [facility] [place] [facility], [facility] [id number], 171, cm, 05/28/20 16:01:00 EDT, Height, 59.5, kg, 12/29/19 15:28:00 EDT, Dry Weight Start Date: 05/28/20 Stop Date: 11/24/20 Status: Ordered multivitamin with minerals Calcium and Magnesium oral tablet 1 tablet, By Mouth, Daily, # 30 tablet, 11 Refills, Maintenance, 05/28/20 16:35:00 EDT, Tablet, [place], [place] - [id number], 1 tablet By Mouth Daily, 171, cm, 05/28/20 16:01:00 EDT, Height, 59.5, kg, 12/29/19 15:28:00 EDT, Dry Weight Start Date: 05/28/20 Stop Date: 05/23/21 Status: Ordered Narcan 4 mg/0.1 mL nasal spray See Instructions, 4 mg Once may repeat every 2 to 3 minutes until patient responds, # 2 each, 1 Refills, Soft Stop, 08/24/19 9:41:00 EST, [place], [place] -, MAMADOU García to ground support equipment assembler for Pt., 170, cm, 08/24/19 9:21:00 EST, Height, 66.36,... Start Date: 08/24/19 Status: Ordered Nicotine 2 mg gum 1 each = 2 mg, Chew, Every 2 hours, PRN as needed for smoking cessation, # 160 each, 3 Refills, Maintenance, 05/28/20 16:51:00 EDT, Gum, [place], [place] - [id number], 171, cm, 05/28/20 16:01:00 EDT, Height, 59.5, [...] Refills, Soft Stop, 05/30/20 9:25:00 EDT, Suspension, [facility], 0.5 mL Intramuscular Once, 171, cm, 05/28/20 16:01:00 EDT, Height, 59.5, kg,12/29/19 15:28:00 EDT, Dry Weight Start Date: 05/30/20 Status: Ordered polyethylene glycol 3350 oral powder for reconstitution = 17 Gm, By Mouth, 2 times a day, PRN Constipation, dissolve in water before taking, # 527 Gm, 3 Refills, Maintenance, 11/28/19 9:42:00 EDT, REC Powder, [place], [place] -, 17 Gm By Mouth 2 times a day,x30 days,PRN:Constipation,Instr:... Start Date: 11/28/19 Stop Date: 03/27/20 Status: Ordered SEROquel 25 mg oral tablet 25 mg, 1, tablet, By Mouth, Daily at bedtime, # 30 tablet, Refills 2, Tot. Refills 2, Maintenance, 06/14/20 20:44:00 EDT, Route to Pharmacy Electronically, [facility], 171, cm, 05/28/20 16:01:00 EDT, Height, 59.5, kg, 12/29/19 15:28:00... Start Date: 06/14/20 Stop Date: 09/12/20 Status: Ordered Viagra 50 mg oral tablet 1 tablet = 50 mg, By Mouth, Daily, PRN sexual activity, 1 hour before sexual activity, # 10 tablet,11 Refills, Maintenance, 05/29/20 20:14:00 EDT, Tablet, [place], [place] - [id number], 171, cm, 05/28/20 16:01:00 EDT, Height, 59.5, k... 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 Sex
--- OUTSIDE RECORDS SUMMARY | 2023-07-12 20:09 | XMS_ITS | Continuity of Care Document ---
Author Name Unknown Organization [facility] Address [address] [place] [address]- Care Team Providers Care Warehouse Worker Name Role Phone Conner QUEEN, Namrata Agarwal Primary Care Physician [phone] Encounter [facility] Date(s): 12/09/20 - 01/08/21 [facility] [address] [place] [address] Allergies, Adverse Reactions, Alerts Substance Reaction [...] 10/28/20 9:30:00 EST, Route to Pharmacy Electronically, [place], [place] - [id number], 173, cm, 07/17/20 19:29:00 EST, Height, 83.9, kg, 07/17/20... Start Date: 10/28/20 Status: Ordered atovaquone 750 mg/5 mL oral suspension 10 mL = 1,500 mg, By Mouth, Daily, for 60 days, # 600 mL, 11 Refills, Acute 05/18/22 16:35:00 EDT, 05/28/20 16:35:00 EDT, Suspension, [place], [place] - [id number], Pls cancel bactrim prescription. Atovaquone to replace bactrim, 171,... Start Date: 05/28/20 Stop Date: 05/18/22 Status: Ordered Biktarvy oral tablet 1 tablet, By Mouth, Daily, for 30 days, # 30 tablet, 11 Refills, Hard Stop 05/23/21 16:35:00 EDT, 05/28/20 16:35:00 EDT, Tablet, [facility], [facility] [id number], 1 tablet By Mouth Daily,x30 days, 171, cm, 05/28/20 16:01:00 EDT, Height,... Start Date: 05/28/20 Stop Date: 05/23/21 Status: Ordered Colace sodium 100 mg oral capsule 100 mg, 1, capsule, By Mouth, 2 times a day, PRN, # 60 capsule, Refills 11, Tot. Refills 11, Maintenance, for constipation, 05/28/20 16:34:00 EDT, Route to Pharmacy Electronically, [facility] [id number], 171, cm, 05/28/20 16:0... Start Date: 05/28/20 Status: Ordered hydrocortisone 0.5% topical cream See Instructions, use sparingly on face, use on all other affected areas, # 28 Gm, 11 Refills, Maintenance, 05/28/20 16:37:00 EDT, [facility] [id number], use sparingly on face, use on all other affected areas, 171, cm, ... Start Date: 05/28/20 Status: Ordered ketoconazole 2% topical shampoo 1 application, Topically, Daily, try daily for 5 days as a shampoo, # 120 mL, 11 Refills, Soft Stop, 05/28/20 16:37:00 EDT, Shampoo, [facility] [id number], 1 application Topically Daily,Instr:try daily for 5 days as a shampoo,... Start Date: 05/28/20 Status: Ordered lithium 300 mg oral capsule 2 capsule = 600 mg, By Mouth, 2 times a day, # 120 capsule, 2 Refills, Maintenance, 06/28/20 12:56:00 EDT, [facility] [id number], Increase in dose per Psychiatry, 171, cm, 05/28/20 16:01:00 EDT, Height, 59.5, kg, 12/29/19 15:2... Start Date: 06/28/20 Status: Ordered LORazepam 0.5 mg oral tablet 1 tablet = 0.5 mg, By Mouth, 2 times a day, PRN Anxiety, # 60 tablet, 2 Refills, Maintenance, 06/28/20 12:56:00 EDT, Tablet, [facility] [id number], 171, cm, 05/28/20 16:01:00EDT, Height, 59.5, kg, 12/29/19 15:28:00 EDT, Dry W... Start Date: 06/28/20 Status: Ordered Mavyret 100 mg-40 mg oral tablet 3 tablet, By Mouth, Daily, with food, # 252 tablet, 0 Refills, Maintenance, 07/08/20 15:34:00 EST, Tablet, [facility], 3 tablet By Mouth Daily,x12 week(s),Instr:with food, 171, cm, 07/08/20 13:19:00 EST, Height, 59.5, kg, 12/29/19 15:... Start Date: 07/08/20 Stop Date: 09/30/20 Status: Ordered Methadone = 55 mg, By Mouth, Daily, 0 Refills, Maintenance, 05/28/20 16:11:00 EDT, Partial fill upon patient request Start Date: 05/28/20 Status: Ordered multivitamin with minerals Calcium and Magnesium oral tablet 1 tablet, By Mouth, Daily, # 30 tablet, 11 Refills, Maintenance, 05/28/20 16:35:00 EDT, Tablet, [place], [place] - [id number], 1 tablet By Mouth Daily, 171, cm, 05/28/20 16:01:00 EDT, Height, 59.5, kg, 12/29/19 15:28:00 EDT, Dry Weight Start Date: 05/28/20 Stop Date: 05/23/21 Status: Ordered Narcan 4 mg/0.1 mL nasal spray See Instructions, 4 mg Once may repeat every 2 to 3 minutes until patient responds, # 2 each, 1 Refills, Soft Stop, 08/24/19 9:41:00 EST, [facility] [place] -, MAMADOU García to picking belt operator for Pt., 170, cm, 08/24/19 9:21:00 EST, Height, 66.36,... Start Date: 08/24/19 Status: Ordered ondansetron 4 mg oral tablet, disintegrating 1 tablet = 4 mg, By Mouth, Every 8 hours, PRN as needed for nausea/vomiting, # 12 tablet, 0 Refills, Maintenance, 12/08/20 19:19:00 EDT, DIS Tablet, [place], [place] - [id number], Partial fill upon patient request if the prescription... Start Date: 12/08/20 Status: Ordered pantoprazole 40 mg oral delayed release tablet 1 tablet = 40 mg, By Mouth, Daily, # 30 tablet, 11 Refills, Maintenance, 05/28/20 16:35:00 EDT, [facility] Tablet, 171, cm, 05/28/20 16:01:00 EDT, Height, 59.5, kg, 12/29/19 15:28:00 EDT, Dry Weight Start Date: 05/28/20 Stop Date: 05/23/21 Status: Ordered polyethylene glycol 3350 oral powder for reconstitution = 17 Gm, By Mouth, 2 times a day, PRN Constipation, dissolve in water before taking, # 527 Gm, 3 Refills, Maintenance, 11/28/19 9:42:00 EDT, REC Powder, [place], [place] -, 17 Gm By Mouth 2 times a day,x30 days,PRN:Constipation,Instr:... Start Date: 11/28/19 Stop Date: 03/27/20 Status: Ordered sildenafil 100 mg oral tablet 1 tablet = 100 mg, By Mouth, Daily, 1 hour before sexual activity, # 10 tablet, 5 Refills, Maintenance, 09/04/20 14:26:00 EST, Tablet, [place], [place] - [id number], Partial fill upon patient request if the prescription is for a sched... 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 Sex Male
--- OUTSIDE RECORDS SUMMARY | 2023-07-12 20:09 | XMS_ITS | Continuity of Care Document ---
Author Name Unknown Organization [facility] Address [address] [place] [id number]- Care Team Providers Care Operations Support Coordinator Name Role Phone Namrata Prieto MD Primary Care Physician [place] [facility] [place] 09[place]27/20 [facility] [address] [place] [id number] Allergies, Adverse Reactions, Alerts Substance [...] 05/28/20 16:31:00 EDT, Route to Pharmacy Electronically, [facility] [id number], 171, cm, 05/28/20 16:01:00 EDT, Height, 59.5, kg, 12/29/19... Start Date: 05/28/20 Status: Ordered atovaquone 750 mg/5 mL oral suspension 10 mL = 1,500 mg, By Mouth, Daily, for 60 days, # 600 mL, 11 Refills, Acute 05/18/22 16:35:00 EDT, 05/28/20 16:35:00 EDT, Suspension, [facility] [id number], Pls cancel bactrim prescription. Atovaquone to replace bactrim, 171,... Start Date: 05/28/20 Stop Date: 05/18/22 Status: Ordered azithromycin 500 mg oral tablet 2 tablet = 1,000 mg, By Mouth, Once, take both tablets at once, # 2 tablet, 0 Refills, Soft Stop, 06/27/20 17:56:00 EDT, Tablet, [facility] [id number], 171, cm, 05/28/20 16:01:00 EDT, Height, 59.5, kg, 12/29/19 15:28:00 EDT, D... Start Date: 06/27/20 Status: Ordered Biktarvy oral tablet 1 tablet, By Mouth, Daily, for 30 days, # 30 tablet, 11 Refills, Hard Stop 05/23/21 16:35:00 EDT, 05/28/20 16:35:00 EDT, Tablet, [facility] [id number], 1 tablet By Mouth Daily,x30 days, 171, cm, 05/28/20 16:01:00 EDT, Height,... Start Date: 05/28/20 Stop Date: 05/23/21 Status: Ordered Colace sodium 100 mg oral capsule 100 mg, 1, capsule, By Mouth, 2 times a day, PRN, # 60 capsule, Refills 11, Tot. Refills 11, Maintenance, for constipation, 05/28/20 16:34:00 EDT, Route to Pharmacy Electronically, [facility] [id number], 171, cm, 05/28/20 16:0... Start Date: 05/28/20 [...] 06/28/20 13:01:00 EDT, Route to Pharmacy Electronically, [facility] [id number], 171, cm, 05/28/20 16:01:00 EDT, Height, 59.5... Start Date: 06/28/20 Status: Ordered hydrocortisone 0.5% topical cream See Instructions, use sparingly on face, use on all other affected areas, # 28 Gm, 11 Refills, Maintenance, 05/28/20 16:37:00 EDT, [facility] [id number], use sparingly on face, use on all other affected areas, 171, cm, ... Start Date: 05/28/20 Status: Ordered influenza virus vaccine, inactivated adjuvanted preservative-free quadrivalent intramuscular susp See Instructions, none, # 1 each, 0 Refills, Maintenance, 05/30/20 9:27:00 EDT, [facility], none, 171, cm, 05/28/20 16:01:00 EDT, Height, 59.5, kg, 12/29/19 15:28:00 EDT, Dry Weight Start Date: 05/30/20 Status: Ordered ketoconazole 2% topical cream 1 application, Topically, 2 times a day, for 28 days, use on the face, # 60 Gm, 11 Refills, Acute 04/29/21 16:40:00 EDT, 05/28/20 16:40:00 EDT, Cream, [facility] [id number], 1 application Topically 2 times a day,x28 days,Instr... Start Date: 05/28/20 Stop Date: 04/29/21 Status: Ordered ketoconazole 2% topical shampoo 1 application, Topically, Daily, try daily for 5 days as a shampoo, # 120 mL, 11 Refills, Soft Stop, 05/28/20 16:37:00 EDT, Shampoo, [facility] [id number], 1 application Topically Daily,Instr:try daily for 5 days as a shampoo,... Start Date: 05/28/20 Status: Ordered lithium 300 mg oral capsule 2 capsule = 600 mg, By Mouth, 2 times a day, # 120 capsule, 2 Refills, Maintenance, 06/28/20 12:56:00 EDT, [facility] [id number], Increase in dose per Psychiatry, 171, cm, 05/28/20 16:01:00 EDT, Height, 59.5, kg, 12/29/19 15:2... Start Date: 06/28/20 Status: Ordered LORazepam 0.5 mg oral tablet 1 tablet = 0.5 mg, By Mouth, 2 times a day, PRN Anxiety, # 60 tablet, 2 Refills, Maintenance, 06/28/20 12:56:00 EDT, Tablet, [facility] [id number], 171, cm, 05/28/20 16:01:00EDT, Height, 59.5, kg, 12/29/19 15:28:00 EDT, Dry W... Start Date: 06/28/20 Status: Ordered Mavyret 100 mg-40 mg oral tablet 3 tablet, By Mouth, Daily, with food, # 252 tablet, 0 Refills, Maintenance, 07/08/20 15:34:00 EST, Tablet, [facility], 3 tablet By Mouth Daily,x12 [...] 5 Refills, Maintenance, 05/28/20 16:35:00 EDT, Tablet, [facility], [facility] [id number], 171, cm, 05/28/20 16:01:00 EDT, Height, 59.5, kg, 12/29/19 15:28:00 EDT, Dry Weight Start Date: 05/28/20 Stop Date: 11/24/20 Status: Ordered multivitamin with minerals Calcium and Magnesium oral tablet 1 tablet, By Mouth, Daily, # 30 tablet, 11 Refills, Maintenance, 05/28/20 16:35:00 EDT, Tablet, [facility] [id number], 1 tablet By Mouth Daily, 171, cm, 05/28/20 16:01:00 EDT, Height, 59.5, kg, 12/29/19 15:28:00 EDT, Dry Weight Start Date: 05/28/20 Stop Date: 05/23/21 Status: Ordered Narcan 4 mg/0.1 mL nasal spray See Instructions, 4 mg Once may repeat every 2 to 3 minutes until patient responds, # 2 each, 1 Refills, Soft Stop, 08/24/19 9:41:00 EST, [place], [place] -, MAMADOU García to black pickler for Pt., 170, cm, 08/24/19 9:21:00 EST, Height, 66.36,... Start Date: 08/24/19 Status: Ordered Nicotine 2 mg gum 1 each = 2 mg, Chew, Every 2 hours, PRN as needed for smoking cessation, # 160 each, 3 Refills, Maintenance, 05/28/20 16:51:00 EDT, Gum, [place], [place] - [id number], 171, cm, 05/28/20 16:01:00 EDT, Height, 59.5, [...] Refills, Soft Stop, 05/30/20 9:25:00 EDT, Suspension, [facility], 0.5 mL Intramuscular Once, 171, cm, 05/28/20 16:01:00 EDT, Height, 59.5, kg,12/29/19 15:28:00 EDT, Dry Weight Start Date: 05/30/20 Status: Ordered polyethylene glycol 3350 oral powder for reconstitution = 17 Gm, By Mouth, 2 times a day, PRN Constipation, dissolve in water before taking, # 527 Gm, 3 Refills, Maintenance, 11/28/19 9:42:00 EDT, REC Powder, [place], [place] -, 17 Gm By Mouth 2 times a day,x30 days,PRN:Constipation,Instr:... Start Date: 11/28/19 Stop Date: 03/27/20 Status: Ordered SEROquel 25 mg oral tablet 25 mg, 1, tablet, By Mouth, Daily at bedtime, # 30 tablet, Refills 2, Tot. Refills 2, Maintenance, 06/14/20 20:44:00 EDT, Route to Pharmacy Electronically, [facility], 171, cm, 05/28/20 16:01:00 EDT, Height, 59.5, kg, 12/29/19 15:28:00... Start Date: 06/14/20 Stop Date: 09/12/20 Status: Ordered sildenafil 100 mg oral tablet 1 tablet = 100 mg, By Mouth, Daily, 1 hour before sexual activity, # 10 tablet, 5 Refills, Maintenance, 09/04/20 14:26:00 EST, Tablet, [place], [place] - [id number], Partial fill upon patient request if the prescription is for a sched... 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 Sex
--- OUTSIDE RECORDS SUMMARY | 2023-07-12 20:09 | XMS_ITS | Continuity of Care Document ---
Author Name Unknown Organization [facility] Address [address] [place] [address]- Care Team Providers Care Consumer Loan Specialist Name Role Phone Calvin WELLS, Giovanna Bernard Primary Care Physician En[place] [facility] [place] Date(s): 07/26/19 - 08/26/19 [facility] [address] [place] [address]- Attending Physician: Isidoro Neely MD Admitting Physician: Isidoro Neely MD Allergies, Adverse Reactions, Alerts Substance Reaction Severity Status shellfish Active Latex rash Active Immunizations Given and Recorded Vaccine Date Status Refusal Reason influenza virus vaccine, inactivated 06/08/19 Give n Medications amLODIPine 5 mg oral tablet 5 mg, 1, tablet, By Mouth, Daily, # 30 tablet, Refills 5, Tot. Refills 5, Maintenance, 08/24/19 9:40:00 EST, Route to Pharmacy Electronically, [place], [place] -, 170, cm, 08/24/19 9:21:00 EST, Height, 66.36, kg, 03/10/19 16:51:00 EDT... Start Date: 08/24/19 Stop Date: 02/20/20 Status: Ordered atovaquone 750 mg/5 mL oral suspension 10 mL = 1,500 mg, By Mouth, Daily, for 60 days, # 600 mL, 5 Refills, Acute 08/18/20 9:40:00 EST, 08/24/19 9:40:00 EST, Suspension, [place], [place] -, Pls cancel bactrim prescription. Atovaquone to replace bactrim, 170, cm, 08/24/19 9... Start Date: 08/24/19 Stop Date: 08/18/20 Status: Ordered Biktarvy oral tablet 1 tablet, By Mouth, Daily, # 30 tablet, 5 Refills, Maintenance, 08/24/19 9:40:00 EST, Tablet, [place], [place] -, 1 tablet By Mouth Daily,x30 days, 170, cm, 08/24/19 9:21:00 EST, Height, 66.36, kg, 03/10/19 16:51:00 EDT, Dry Weight Start Date: 08/24/19 Stop Date: 02/20/20 Status: Ordered Colace sodium 100 mg oral capsule 100 mg, 1, capsule, By Mouth, 2 times a day, PRN, # 60 capsule, Refills 11, Tot. Refills 11, Maintenance, for constipation, 06/08/19 18:24:18 EDT, Route to Pharmacy Electronically, [id number], [place], [place] - Start Date: 06/08/19 Status: Ordered fluconazole 200 mg oral tablet 1 tablet = 200 mg, By Mouth, Daily, for 28 days, # 28 tablet, 5 Refills, Acute 02/08/20 9:42:00 EDT, 08/24/19 9:42:00 EST, Tablet, [place], [place] -, Decrease in dose., 170, cm, 08/24/19 9:21:00 EST, Height, 66.36, kg, 03/10/19 16:51... Start Date: 08/24/19 Stop Date: 02/08/20 Status: Ordered methadone 10 mg oral tablet = 25 mg, By Mouth, Daily, 0 Refills, Maintenance, 01/17/19 10:36:18 EDT, Tablet Start Date: 01/17/19 Status: Ordered mirtazapine 30 mg oral tablet 1 tablet = 30 mg, By Mouth, Daily at bedtime, # 30 tablet, 5 Refills, Maintenance, 07/19/19 12:59:51 EST, Tablet Start Date: 07/19/19 Stop Date: 01/15/20 Status: Ordered multivitamin with minerals Calcium and Magnesium oral tablet 1 tablet, By Mouth, Daily, # 30 tablet, 5 Refills, Maintenance, 08/10/19 16:56:38 EST, Tablet, 1 tablet By Mouth Daily,x30 days, 170, cm, 06/08/19 18:07:52 EDT, Height, 66.36, kg, 03/10/19 16:51:19 EDT, Dry Weight Start Date: 08/10/19 Stop Date: 02/06/20 Status: Ordered Narcan 4 mg/0.1 mL nasal spray See Instructions, 4 mg Once may repeat every 2 to 3 minutes until patient responds, # 2 each, 1 Refills, Soft Stop, 08/24/19 9:41:00 EST, [facility] - [place], [place] -, MAMADOU García to picking supervisor for Pt., 170, cm, 08/24/19 9:21:00 EST, Height, 66.36,... Start Date: 08/24/19 Status: Ordered pantoprazole 40 mg oral delayed release tablet = 40 mg, By Mouth, Daily, # 30 each, 11 Refills, Maintenance, 06/07/19 12:37:51 EDT, EC Tablet Start Date: 06/07/19 Stop Date: 06/01/20 Status: Ordered polyethylene glycol 3350 oral powder [...] Fungemia(Confirmed) Active Hemorrhoid(Confirmed) Active HIV disease(Confirmed) Active Drug abuse, IV(Confirmed) Active Pulmonary nodule(Confirmed) Active Severe malnutrition(Confirmed) Active Opiate dependence(Confirmed) Active Pancytopenia(Confirmed) Active Emphysema/COPD(Confirmed) Active Social History Social History Type Response Smoking Status 10 or more cigarette s (1/2 pack or more)/day in last 30 days entered on: 03/10/19 Sex Male
--- OUTSIDE RECORDS SUMMARY | 2023-07-12 20:09 | XMS_ITS | Continuity of Care Document ---
Author Name Unknown Organization [facility] Address [address] [place] [address]- Care Team Providers Care Press Tender Long Goods Name Role Phone Conner QUEEN, Namrata Agarwal Primary Care Physician Encounter [facility] [place] Date(s): 10/07/20 - 11/06/20 [facility] [address] [place] [id number] Allergies, Adverse Reactions, Alerts Substance Reaction [...] 10/28/20 9:30:00 EST, Route to Pharmacy Electronically, [facility] [id number], 173, cm, 07/17/20 19:29:00 EST, Height, 83.9, kg, 07/17/20... Start Date: 10/28/20 Status: Ordered atovaquone 750 mg/5 mL oral suspension 10 mL = 1,500 mg, By Mouth, Daily, for 60 days, # 600 mL, 11 Refills, Acute 05/18/22 16:35:00 EDT, 05/28/20 16:35:00 EDT, Suspension, [place], [place] - [id number], Pls cancel bactrim prescription. Atovaquone to replace bactrim, 171,... Start Date: 05/28/20 Stop Date: 05/18/22 Status: Ordered azithromycin 500 mg oral tablet 2 tablet = 1,000 mg, By Mouth, Once, take both tablets at once, # 2 tablet, 0 Refills, Soft Stop, 06/27/20 17:56:00 EDT, Tablet, [facility] [id number], 171, cm, 05/28/20 16:01:00 EDT, Height, 59.5, kg, 12/29/19 15:28:00 EDT, D... Start Date: 06/27/20 Status: Ordered Biktarvy oral tablet 1 tablet, By Mouth, Daily, for 30 days, # 30 tablet, 11 Refills, Hard Stop 05/23/21 16:35:00 EDT, 05/28/20 16:35:00 EDT, Tablet, [facility] [id number], 1 tablet By Mouth Daily,x30 days, 171, cm, 05/28/20 16:01:00 EDT, Height,... Start Date: 05/28/20 Stop Date: 05/23/21 Status: Ordered Colace sodium 100 mg oral capsule 100 mg, 1, capsule, By Mouth, 2 times a day, PRN, # 60 capsule, Refills 11, Tot. Refills 11, Maintenance, for constipation, 05/28/20 16:34:00 EDT, Route to Pharmacy Electronically, [facility] [id number], 171, cm, 05/28/20 16:0... Start Date: 05/28/20 [...] 06/28/20 13:01:00 EDT, Route to Pharmacy Electronically, [facility] [id number], 171, cm, 05/28/20 16:01:00 EDT, Height, 59.5... Start Date: 06/28/20 Status: Ordered hydrocortisone 0.5% topical cream See Instructions, use sparingly on face, use on all other affected areas, # 28 Gm, 11 Refills, Maintenance, 05/28/20 16:37:00 EDT, [facility] [id number], use sparingly on face, use on all other affected areas, 171, cm, ... Start Date: 05/28/20 Status: Ordered influenza virus vaccine, inactivated adjuvanted preservative-free quadrivalent intramuscular susp See Instructions, none, # 1 each, 0 Refills, Maintenance, 05/30/20 9:27:00 EDT, [facility], none, 171, cm, 05/28/20 16:01:00 EDT, Height, 59.5, kg, 12/29/19 15:28:00 EDT, Dry Weight Start Date: 05/30/20 Status: Ordered ketoconazole 2% topical cream 1 application, Topically, 2 times a day, for 28 days, use on the face, # 60 Gm, 11 Refills, Acute 04/29/21 16:40:00 EDT, 05/28/20 16:40:00 EDT, Cream, [facility] [id number], 1 application Topically 2 times a day,x28 days,Instr... Start Date: 05/28/20 Stop Date: 04/29/21 Status: Ordered ketoconazole 2% topical shampoo 1 application, Topically, Daily, try daily for 5 days as a shampoo, # 120 mL, 11 Refills, Soft Stop, 05/28/20 16:37:00 EDT, Shampoo, [facility] [id number], 1 application Topically Daily,Instr:try daily for 5 days as a shampoo,... Start Date: 05/28/20 Status: Ordered lithium 300 mg oral capsule 2 capsule = 600 mg, By Mouth, 2 times a day, # 120 capsule, 2 Refills, Maintenance, 06/28/20 12:56:00 EDT, [facility], [facility] [id number], Increase in dose per Psychiatry, 171, cm, 05/28/20 16:01:00 EDT, Height, 59.5, kg, 12/29/19 15:2... Start Date: 06/28/20 Status: Ordered LORazepam 0.5 mg oral tablet 1 tablet = 0.5 mg, By Mouth, 2 times a day, PRN Anxiety, # 60 tablet, 2 Refills, Maintenance, 06/28/20 12:56:00 EDT, Tablet, [facility], [facility] [id number], 171, cm, 05/28/20 16:01:00EDT, Height, 59.5, kg, 12/29/19 15:28:00 EDT, Dry W... Start Date: 06/28/20 Status: Ordered Mavyret 100 mg-40 mg oral tablet 3 tablet, By Mouth, Daily, with food, # 252 tablet, 0 Refills, Maintenance, 07/08/20 15:34:00 EST, Tablet, [facility], 3 tablet By Mouth [...] 5 Refills, Maintenance, 05/28/20 16:35:00 EDT, Tablet, [facility], [facility] [id number], 171, cm, 05/28/20 16:01:00 EDT, Height, 59.5, kg, 12/29/19 15:28:00 EDT, Dry Weight Start Date: 05/28/20 Stop Date: 11/24/20 Status: Ordered multivitamin with minerals Calcium and Magnesium oral tablet 1 tablet, By Mouth, Daily, # 30 tablet, 11 Refills, Maintenance, 05/28/20 16:35:00 EDT, Tablet, [facility] [id number], 1 tablet By Mouth Daily, 171, cm, 05/28/20 16:01:00 EDT, Height, 59.5, kg, 12/29/19 15:28:00 EDT, Dry Weight Start Date: 05/28/20 Stop Date: 05/23/21 Status: Ordered Narcan 4 mg/0.1 mL nasal spray See Instructions, 4 mg Once may repeat every 2 to 3 minutes until patient responds, # 2 each, 1 Refills, Soft Stop, 08/24/19 9:41:00 EST, [place], [place] -, MAMADOU García to picked edge sewing machine operator for Pt., 170, cm, 08/24/19 9:21:00 EST, Height, 66.36,... Start Date: 08/24/19 Status: Ordered Nicotine 2 mg gum 1 each = 2 mg, Chew, Every 2 hours, PRN as needed for smoking cessation, # 160 each, 3 Refills, Maintenance, 05/28/20 16:51:00 EDT, Gum, [place], [place] - [id number], 171, cm, 05/28/20 16:01:00 EDT, Height, 59.5, [...] Refills, Soft Stop, 05/30/20 9:25:00 EDT, Suspension, [facility]., 0.5 mL Intramuscular Once, 171, cm, 05/28/20 16:01:00 EDT, Height, 59.5, kg,12/29/19 15:28:00 EDT, Dry Weight Start Date: 05/30/20 Status: Ordered polyethylene glycol 3350 oral powder for reconstitution = 17 Gm, By Mouth, 2 times a day, PRN Constipation, dissolve in water before taking, # 527 Gm, 3 Refills, Maintenance, 11/28/19 9:42:00 EDT, REC Powder, [place], [place] -, 17 Gm By Mouth 2 times a day,x30 days,PRN:Constipation,Instr:... Start Date: 11/28/19 Stop Date: 03/27/20 Status: Ordered SEROquel 25 mg oral tablet 25 mg, 1, tablet, By Mouth, Daily at bedtime, # 30 tablet, Refills 2, Tot. Refills 2, Maintenance, 06/14/20 20:44:00 EDT, Route to Pharmacy Electronically, [facility], 171, cm, 05/28/20 16:01:00 EDT, Height, 59.5, kg, 12/29/19 15:28:00... Start Date: 06/14/20 Stop Date: 09/12/20 Status: Ordered sildenafil 100 mg oral tablet 1 tablet = 100 mg, By Mouth, Daily, 1 hour before sexual activity, # 10 tablet, 5 Refills, Maintenance, 09/04/20 14:26:00 EST, Tablet, [place], [place] - [id number], Partial fill upon patient request if the prescription is for a sched... 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 Sex
--- OUTSIDE RECORDS SUMMARY | 2023-07-12 20:09 | XMS_ITS | Continuity of Care Document ---
Author Name Unknown Organization [facility] Address [address] [place] [address]- Care Team Providers Care Fish Trapper Name Role Phone Namrata Prieto MD Primary Care Physician Encounter [facility] Date(s): 08/06/20 - 10/30/20 [facility] [address] [place] [id number] Attending Physician: Jose Mathew MD Admitting [...] 10/28/20 9:30:00 EST, Route to Pharmacy Electronically, [place], [place] - [id number], 173, cm, 07/17/20 19:29:00 EST, Height, 83.9, kg, 07/17/20... Start Date: 10/28/20 Status: Ordered atovaquone 750 mg/5 mL oral suspension 10 mL = 1,500 mg, By Mouth, Daily, for 60 days, # 600 mL, 11 Refills, Acute 05/18/22 16:35:00 EDT, 05/28/20 16:35:00 EDT, Suspension, [place], [place] - [id number], Pls cancel bactrim prescription. Atovaquone to replace bactrim, 171,... Start Date: 05/28/20 Stop Date: 05/18/22 Status: Ordered azithromycin 500 mg oral tablet 2 tablet = 1,000 mg, By Mouth, Once, take both tablets at once, # 2 tablet, 0 Refills, Soft Stop, 06/27/20 17:56:00 EDT, Tablet, [facility] [id number], 171, cm, 05/28/20 16:01:00 EDT, Height, 59.5, kg, 12/29/19 15:28:00 EDT, D... Start Date: 06/27/20 Status: Ordered Biktarvy oral tablet 1 tablet, By Mouth, Daily, for 30 days, # 30 tablet, 11 Refills, Hard Stop 05/23/21 16:35:00 EDT, 05/28/20 16:35:00 EDT, Tablet, [facility] [id number], 1 tablet By Mouth Daily,x30 days, 171, cm, 05/28/20 16:01:00 EDT, Height,... Start Date: 05/28/20 Stop Date: 05/23/21 Status: Ordered Colace sodium 100 mg oral capsule 100 mg, 1, capsule, By Mouth, 2 times a day, PRN, # 60 capsule, Refills 11, Tot. Refills 11, Maintenance, for constipation, 05/28/20 16:34:00 EDT, Route to Pharmacy Electronically, [facility] [id number], 171, cm, 05/28/20 16:0... Start Date: 05/28/20 [...] EDT, Route to Pharmacy Electronically, [facility] [id number], 171, cm, 05/28/20 16:01:00 EDT, Height, 59.5... Start Date: 06/28/20 Status: Ordered hydrocortisone 0.5% topical cream See Instructions, use sparingly on face, use on all other affected areas, # 28 Gm, 11 Refills, Maintenance, 05/28/20 16:37:00 EDT, [facility] [id number], use sparingly on face, use on all other affected areas, 171, cm, ... Start Date: 05/28/20 Status: Ordered influenza virus vaccine, inactivated adjuvanted preservative-free quadrivalent intramuscular susp See Instructions, none, # 1 each, 0 Refills, Maintenance, 05/30/20 9:27:00 EDT, [facility], none, 171, cm, 05/28/20 16:01:00 EDT, Height, 59.5, kg, 12/29/19 15:28:00 EDT, Dry Weight Start Date: 05/30/20 Status: Ordered ketoconazole 2% topical cream 1 application, Topically, 2 times a day, for 28 days, use on the face, # 60 Gm, 11 Refills, Acute 04/29/21 16:40:00 EDT, 05/28/20 16:40:00 EDT, Cream, [facility] [id number], 1 application Topically 2 times a day,x28 days,Instr... Start Date: 05/28/20 Stop Date: 04/29/21 Status: Ordered ketoconazole 2% topical shampoo 1 application, Topically, Daily, try daily for 5 days as a shampoo, # 120 mL, 11 Refills, Soft Stop, 05/28/20 16:37:00 EDT, Shampoo, [facility], [place] - [id number], 1 application Topically Daily,Instr:try daily for 5 days as a shampoo,... Start Date: 05/28/20 Status: Ordered lithium 300 mg oral capsule 2 capsule = 600 mg, By Mouth, 2 times a day, # 120 capsule, 2 Refills, Maintenance, 06/28/20 12:56:00 EDT, [facility], [facility] [id number], Increase in dose per Psychiatry, 171, cm, 05/28/20 16:01:00 EDT, Height, 59.5, kg, 12/29/19 15:2... Start Date: 06/28/20 Status: Ordered LORazepam 0.5 mg oral tablet 1 tablet = 0.5 mg, By Mouth, 2 times a day, PRN Anxiety, # 60 tablet, 2 Refills, Maintenance, 06/28/20 12:56:00 EDT, Tablet, [facility], [facility] [id number], 171, cm, 05/28/20 16:01:00EDT, Height, 59.5, kg, 12/29/19 15:28:00 EDT, Dry W... Start Date: 06/28/20 Status: Ordered Mavyret 100 mg-40 mg oral tablet 3 tablet, By Mouth, Daily, with food, # 252 tablet, 0 Refills, Maintenance, 07/08/20 15:34:00 EST, Tablet, [facility], 3 tablet By Mouth [...] 5 Refills, Maintenance, 05/28/20 16:35:00 EDT, Tablet, [facility], [facility] [id number], 171, cm, 05/28/20 16:01:00 EDT, Height, 59.5, kg, 12/29/19 15:28:00 EDT, Dry Weight Start Date: 05/28/20 Stop Date: 11/24/20 Status: Ordered multivitamin with minerals Calcium and Magnesium oral tablet 1 tablet, By Mouth, Daily, # 30 tablet, 11 Refills, Maintenance, 05/28/20 16:35:00 EDT, Tablet, [facility] [id number], 1 tablet By Mouth Daily, 171, cm, 05/28/20 16:01:00 EDT, Height, 59.5, kg, 12/29/19 15:28:00 EDT, Dry Weight Start Date: 05/28/20 Stop Date: 05/23/21 Status: Ordered Narcan 4 mg/0.1 mL nasal spray See Instructions, 4 mg Once may repeat every 2 to 3 minutes until patient responds, # 2 each, 1 Refills, Soft Stop, 08/24/19 9:41:00 EST, [place], [place] -, MAMADOU García to pickle maker for Pt., 170, cm, 08/24/19 9:21:00 EST, Height, 66.36,... Start Date: 08/24/19 Status: Ordered Nicotine 2 mg gum 1 each = 2 mg, Chew, Every 2 hours, PRN as needed for smoking cessation, # 160 each, 3 Refills, Maintenance, 05/28/20 16:51:00 EDT, Gum, [facility] [id number], 171, cm, 05/28/20 16:01:00 EDT, Height, 59.5, [...] Refills, Soft Stop, 05/30/20 9:25:00 EDT, Suspension, [facility], 0.5 mL Intramuscular Once, 171, cm, 05/28/20 16:01:00 EDT, Height, 59.5, kg,12/29/19 15:28:00 EDT, Dry Weight Start Date: 05/30/20 Status: Ordered polyethylene glycol 3350 oral powder for reconstitution = 17 Gm, By Mouth, 2 times a day, PRN Constipation, dissolve in water before taking, # 527 Gm, 3 Refills, Maintenance, 11/28/19 9:42:00 EDT, REC Powder, [place], [place] -, 17 Gm By Mouth 2 times a day,x30 days,PRN:Constipation,Instr:... Start Date: 11/28/19 Stop Date: 03/27/20 Status: Ordered SEROquel 25 mg oral tablet 25 mg, 1, tablet, By Mouth, Daily at bedtime, # 30 tablet, Refills 2, Tot. Refills 2, Maintenance, 06/14/20 20:44:00 EDT, Route to Pharmacy Electronically, [facility], 171, cm, 05/28/20 16:01:00 EDT, Height, 59.5, kg, 12/29/19 15:28:00... Start Date: 06/14/20 Stop Date: 09/12/20 Status: Ordered sildenafil 100 mg oral tablet 1 tablet = 100 mg, By Mouth, Daily, 1 hour before sexual activity, # 10 tablet, 5 Refills, Maintenance, 09/04/20 14:26:00 EST, Tablet, [place], [place] - [id number], Partial fill upon patient request if the prescription is for a sched... 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 Sex
--- OUTSIDE RECORDS SUMMARY | 2023-07-12 20:09 | XMS_ITS | Continuity of Care Document ---
Author Name Unknown Organization [facility] Address [address] [place] [address]- Care Team Providers Care Color Room Attendant Name Role Phone Conner QUEEN, Namrata Agarwal Primary Care Physician Encounter [facility] Date(s): 12/29/22 - 01/28/23 [facility] [address] [place] [id number] Encounter Diagnosis Erectile dysfunction(Discharge Diagnosis) - 05/29/20 [facility] Attending Physician: Angeles De La Rosa Admitting Physician: Admtr ArRenea Referring Physician: Admtr, Ar8 Allergies, Adverse Reactions, [...] 8:46:00 EST, Powder, Route to Pharmacy Electronically, [id number], [facility]... Start Date: 07/20/22 Stop Date: 07/15/23 Status: Ordered amLODIPine 10 mg oral tablet 10 mg, 1, tablet, By Mouth, Daily, # 30 tablet, Refills 11, Tot. Refills 11, Maintenance, 07/20/22 8:43:00 EST, Route to Pharmacy Electronically, [facility] [id number], 173, cm, 05/10/22 20:46:00 EDT, Height, 95.5, kg, 2... Start Date: 07/20/22 Status: Ordered aspirin 81 mg oral tablet, chewable 81 mg, 1, tablet, By Mouth, Daily, # 30 tablet, Refills 11, Tot. Refills 11, Maintenance, 07/20/22 8:43:00 EST, Route to Pharmacy Electronically, [facility] [id number], Partial fill upon patient request if the prescription is... Start Date: 07/20/22 Stop Date: 11/12/23 Status: Ordered atorvastatin 80 mg oral tablet 1 tablet = 80 mg, By Mouth, Daily, # 30 tablet, 11 Refills, Maintenance, 07/20/22 8:43:00 EST, Tablet, [facility] [id number], Partial fill upon patient request if the prescription is for a schedule II opioid drug., 173, cm, 09... Start Date: 07/20/22 Status: Ordered Biktarvy oral tablet 1 tablet, By Mouth, Daily, must get appt and labs for refills, # 30 tablet, 0 Refills, Maintenance,12/16/22 19:18:00 EDT, [facility] [id number], 30, 1 tablet By Mouth Daily,Instr:must get [...] 12/24/22 19:14:00 EDT, Route to Pharmacy Electronically, [facility]... Start Date: 12/24/22 Status: Ordered Crutches See [...] 1 Refills, Soft Stop, 03/05/22 10:37:00 EDT, [place], [place] - [id number], Partial fill upon patient request if the prescriptio... Start Date: 03/05/22 Status: Ordered fluticasone-salmeterol 250 mcg-50 mcg inhalation powder 1, puffs, Inhalation, 2 times a day, patient needs labs and appt before more refills, # 60 each, Refills 0, Tot. Refills 0, Maintenance, 12/16/22 19:27:00 EDT, Powder, Route to Pharmacy Electronically, [id number], [facility]... Start Date: 12/16/22 Status: Ordered [...] APART, # 30 Unknown, 5 Refills, Maintenance, 12/28/22 20:23:00 EST, [facility], 173, cm, 08/12/22 0:40:00 EST, Height, 93.18, kg, 120... Start Date: 09/02/22 Status: Ordered ketoconazole 2% topical cream 1 application, Topically, Daily, # 30 Gm, 11 Refills, Maintenance, 04/20/22 9:23:00 EDT, [facility], [facility] [id number], 1 application Topically Daily, 173, cm, 12/05/21 17:38:00 EDT,Height, 127, kg, 12/05/21 17:38:00 EDT, Dry Weight Start Date: 04/20/22 Status: Ordered Lidoderm 5% film 1 patch, Topically, Daily, # 30 patch, 11 Refills, Maintenance, 03/19/22 21:12:00 EDT, [facility] [id number], Partial fill upon patient request if the [...] EST, Tablet, [facility], [place] - [id number], 1 tablet By Mouth Daily, 173, cm, 05/10/22 20:46:00 EDT,Height, 95.5, kg, 05/10/22 20:46:00 EDT, Dry Weight Start Date: 07/20/22 Status: Ordered Narcan 4 mg/0.1 mL nasal spray See Instructions, 4 mg Once may repeat every 2 to 3 minutes until patient responds, # 2 each, 3 Refills, Soft Stop, 03/05/22 10:07:00 EDT, [facility] [id number], 173, cm, 12/05/21 17:38:00 EDT, Height, 127, [...] Refills, Soft Stop, 12/24/22 11:37:00 EDT, Lotion, [facility] [id number], Partial fill upon pa... Start Date: 12/24/22 Status: Ordered polyethylene glycol 3350 oral powder for reconstitution = 17 Gm, By Mouth, 2 times a day, PRN Constipation, dissolve in water before taking, # 527 Gm, 3 Refills, Maintenance, 12/02/21 16:55:00 EDT, REC Powder, [facility] [id number], 17 Gm By Mouth 2 times a day,x30 days,PRN:Constip... Start Date: 12/02/21 Stop Date: 04/01/22 Status: Ordered rOPINIRole 0.5 mg oral tablet 1 tablet = 0.5 mg, By Mouth, Daily at bedtime, 1 to 3 hours before bedtime, # 30 tablet, 11 Refills, Maintenance, 07/20/22 8:43:00 EST, Tablet, [facility] [id number], Partialfill upon patient request if the prescription is fo... Start Date: 07/20/22 Status: Ordered Senna 8.6 mg oral tablet 1 or 2 tablets, By Mouth, Daily at bedtime, PRN, Must make appt and get labs for refills, # 180 tablet, Refills 0, Tot. Refills 0, Maintenance, Constipation, 12/16/22 19:14:00 EDT, Route to Pharmacy Electronically, [place], [place] -... Start Date: 12/16/22 Status: Ordered sildenafil 100 mg oral tablet 1 tablet = 100 mg, By Mouth, Daily, 1 hour before sexual activity, # 20 tablet, 11 Refills, Maintenance, 04/20/22 9:24:00 EDT, Tablet, [facility] [id number], disreguard last script for 0.5 tab, 173, cm, 12/05/21 17:38:00 EDT,... Start Date: 04/20/22 Status: Ordered varenicline 1mg tablet 1 tablet = 1 mg, By Mouth, Daily, 0.5 tab daily x 3 days then 0.5 tab BID x 3 days then 1 tab BID, # 30 tablet, 4 Refills, Maintenance, 09/04/22 15:20:00 EST, Tablet, [facility] [id number], Partial fill upon patient request if... Start Date: 09/04/22 Status: Ordered Ventolin HFA 108 mcg/inh inhalation aerosol with adapter 2 puffs, Inhalation, 4 times a day, PRN for wheezing, must get appt and labs for refills, # 3 each,0 Refills, Maintenance, 12/16/22 19:15:00 EDT, Aerosol, [facility] [id number], Partial fill upon patient request if the prescr... Start Date: 12/16/22 Status: Ordered Vitamin D3 1000 intl units oral capsule 1 capsule = 25 mcg, By Mouth, Daily, # 30 capsule, 11 Refills, Maintenance, 06/04/22 17:32:00 EDT, Capsule, [facility] [id number], D/c vitamin high dosed, 173, cm, 05/10/22 20:46:00 EDT, Height, 95.5, kg, 05/10/22 20:46:00 EDT... Start Date: 06/04/22 Status: Ordered Wheeled Walker with seat Wheeled Walker with seat, See Instructions, # 1 each, Refills 0, Tot. Refills 0, Maintenance, Use as directed Dx: Hemiparesis of left side (G81.94); Reduced mobility (Z74.0); history of falls (Z91.81); ht: 173cm; wt: 95.5 kg Duration: Lifetime, ... 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 Impaired LV relaxation Diagnosis Diagnosis Type Effective Dates Health Status Clinical Service Informant Erectile dysfunction Discharge Diagnosis 05/29/20 Depression - Olinda therapist, [facility] Discharge Diagnosis 05/29/20 Social History Social History Type Response Smoking Status 10 or more cigarette s (1/2 pack or more)/day in last 30 days entered on: 12/05/21 Sex Patient Care team information Care Team Personnel Name: Jadiel Watson RN Position: [facility] ED RN W/OE and Tasks Member Role: Primary Care Nurse Name: Dede Mccloud RN Position: [facility] RN Member Role: Primary Care Nurse Name: Judy Gonzales RN Position: [facility] RN Member Role: Primary Care Nurse Name: Enma Manriquez RN Position: [facility] AMB Nurse Member Role: Primary Care Nurse Name: Zuhair Lopez RN Position: [facility] RN Member Role: Primary Care Nurse Name: Edie Bob RN Position: [facility] RN Member Role: Primary Care Nurse Name: Lisbet Gardiner RN Position: [facility] RN Member Role: Primary Care Nurse Name: Namrata Prieto MD Position: [facility] Physician - Primary Care Member Role: PCP Address: Address: [address] [place] [address], -Level [facility] [place] [address]- Name: Carolina Valero RN Position: S RN Member Role: Primary Care Nurse Name: Nishi San RN Position: S RN Member Role: Primary Care Nurse Name: Micky Boyd RN Position: S RN Member Role: Primary Care Nurse Name: Lauri Combs NP Position: Reference Physician Member Role: Primary Care Nurse Address: Address: [address] [place] [address] [address] [facility] [place] [address]- Care Team Related Persons Name: LUIS SAN Address: [place] [address] Name: BROOKE OWEN Address: home [address] [address] Name: KARYN OWEN Address: home [address] [place] [address] Name: DOMINGO LEONE Address: home [address] [place] [address]
--- OUTSIDE RECORDS SUMMARY | 2023-07-12 20:09 | XMS_ITS | Continuity of Care Document ---
Author Name Unknown Organization [facility] Address [address] [place] [address]- Care Team Providers Care Tanker Truck Driver Name Role Phone Conner QUEEN, Namrata Agarwal Primary Care Physician [phone] Encounter [facility] Date(s): 09/03/21 - 10/03/21 [facility] [address], [place] [address] Allergies, Adverse Reactions, Alerts Substance Reaction Severity [...] 13:14:00 EST, Powder, Route to Pharmacy Electronically, [id number], [facility]... Start Date: 08/21/21 Stop Date: 01/18/22 Status: Ordered Albuterol (Eqv-ProAir HFA) 90 mcg/inh inhalation aerosol 2 puffs, Inhalation, Every 6 hours, # 8.5 Gm, 11 Refills, 08/25/21 12:34:00 EST, [facility] [id number], 25, 2 puffs Inhalation Every 6 hours, 173, cm, 08/25/21 12:31:00 EST, Height, 84, kg, 04/19/21 2:36:00 EDT, Dry Weight Start Date: 08/25/21 Status: Ordered amLODIPine 10 mg oral tablet 10 mg, 1, tablet, By Mouth, Daily, # 30 tablet, Refills 11, Tot. Refills 11, Maintenance, 08/27/21 16:46:00 EST, Route to Pharmacy Electronically, [facility] [id number], 173,cm, 08/25/21 12:31:00 EST, Height, 84, kg, 04/19/21... Start Date: 08/27/21 Status: Ordered aspirin 81 mg oral tablet, chewable 81 mg, 1, tablet, By Mouth, Daily, # 120 tablet, Refills 3, Tot. Refills 3, Maintenance, 10/02/21 11:47:00 EST, Route to Pharmacy Electronically, [facility] [id number], Partial fill upon patient request if the prescription is... Start Date: 10/02/21 Stop Date: 01/25/23 Status: Ordered atorvastatin 80 mg oral tablet 1 tablet = 80 mg, By Mouth, Daily at bedtime, # 90 tablet, 4 Refills, Maintenance, 10/02/21 11:47:00 EST, Tablet, [facility] [id number], Partial fill upon patient request if the prescription is for a schedule II opioid drug.,... Start Date: 10/02/21 Stop Date: 12/26/22 Status: Ordered atovaquone 750 mg/5 mL oral suspension 10 mL = 1,500 mg, By Mouth, Daily, for 60 days, # 600 mL, 11 Refills, Acute 02/25/23 6:50:00 EDT, 03/07/21 6:50:00 EDT, Suspension, [facility] [id number], Pls cancel bactrim prescription. Atovaquone to replace bactrim, 174, cm... Start Date: 03/07/21 Stop Date: 02/25/23 Status: Ordered Biktarvy oral tablet 1 tablet, By Mouth, Daily, # 30 tablet, 11 Refills, [facility], 30, TAKE ONE TABLET BY MOUTH [...] FOR CONSTIPATION, # 60 each, 5 Refills, [facility], 173, cm, 04/21/21 8:17:00 EDT, Height, 84, kg, 04/19/21 2:36:00 EDT, Dry Weight Start Date: 06/02/21 Status: Ordered hydrocortisone 0.5% topical cream See Instructions, use sparingly on face, use on all other affected areas, # 28 Gm, 11 Refills, Maintenance, 03/07/21 6:50:00 EDT, [facility] [id number], use sparingly on face, use on all other affected areas, 174, cm, 01/13/21... Start Date: 03/07/21 Status: Ordered Incruse Ellipta 62.5 mcg/inh inhalation powder 1 puffs, Inhalation, Every 24 hours, doses should be taken AT least 24 HOURS APART, # 30 Unknown, 11 Refills, 08/25/21 12:34:00 EST, [place], [place] - [id number], 173, cm, 08/25/21 12:31:00 EST, Height, 84, kg, 04/19/21 2:36:00 EDT,... Start Date: 08/25/21 Status: Ordered ketoconazole 2% topical cream See Instructions, APPLY TO THE AFFECTED AREA TOPICALLY 2 (two) times a day. USE ON THE FACE, # 60 Gm, 11 Refills, [facility], 30, APPLY TO THE AFFECTED AREA TOPICALLY [...] 11 Refills, Maintenance, 03/07/21 6:51:00 EDT, Tablet, [place], [place] - [id number], 1 tablet By Mouth Daily, 174, cm, 01/13/21 8:20:00 EDT, Height, 93, kg, 01/08/21 18:17:00 EDT, Dry Weight Start Date: 03/07/21 Status: Ordered Narcan 4 mg/0.1 mL nasal spray See Instructions, 4 mg Once may repeat every 2 to 3 minutes until patient responds, # 2 each, 1 Refills, Soft Stop, 08/24/19 9:41:00 EST, [place], [place] -, MAMADOU García to picking machine operator for Pt., 170, cm, 08/24/19 9:21:00 EST, Height, 66.36,... Start Date: 08/24/19 Status: Ordered Occupational Therapy Occupational Therapy, See [...] Refills, Maintenance, 08/21/21 13:33:00 EST, DIS Tablet, [place], [place] - [id number], Partial fill upon patient request if the [...] 10/02/21 11:47:00 EST, Route to Pharmacy Electronically, [place], [place] - [id number], Partial fill upon patient request if the prescription is f... Start Date: 10/02/21 Stop Date: 12/31/21 Status: Ordered polyethylene glycol 3350 oral powder for reconstitution = 17 Gm, By Mouth, 2 times a day, PRN Constipation, dissolve in water before taking, # 527 Gm, 3 Refills, Maintenance, 11/28/19 9:42:00 EDT, REC Powder, [place], [place] -, 17 Gm By Mouth 2 times a day,x30 days,PRN:Constipation,Instr:... Start Date: 11/28/19 Stop Date: 03/27/20 Status: Ordered polyethylene glycol 3350 oral powder for reconstitution See Instructions, DISSOLVE 17grams powder IN WATER BEFORE drinking 2 (two) times a day NEEDED FOR CONSTIPATION, # 510 Gm, 11 Refills, [facility], 30, DISSOLVE 17grams powder IN WATER BEFORE drinking 2 (two) times a day NEEDED FOR CONSTIPATI... Start Date: 09/03/21 Status: Ordered rOPINIRole 0.5 mg oral tablet 1 tablet = 0.5 mg, By Mouth, Daily at bedtime, 1 to 3 hours before bedtime, # 30 tablet, 11 Refills, Maintenance, 08/21/21 13:32:00 EST, Tablet, [facility] [id number], Partial fill upon patient request if the prescription is f... Start Date: 08/21/21 Status: Ordered sildenafil 100 mg oral tablet 1 tablet = 100 mg, By Mouth, Daily, 1 hour before sexual activity, # 20 tablet, 11 Refills, Maintenance, 03/07/21 6:49:00 EDT, Tablet, [place], [place] - [id number], Partial fill upon patient request if the prescription is for a sched... 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) [facility] Active Testicular disorder - numbne ss of the left side of testical, intermittent(Confirmed) Active Hemorrhoid(Confirmed) Active HIV disease - 01/2019(Confirmed) Active Erectile dysfunction(Confirmed) Active Pulmonary nodule(Confirmed) Active Obese class II(Confirmed) Active Obesity(Confirmed) Active Oliguria(Confirmed) Active Opiate dependence(Confirmed) Active Emphysema/COPD(Confirmed) Active Tobacco use(Confirmed) Active Social History Social History Type Response Tobacco Use: 4 or less cigar ettes(less than 1/4 pack)/day in last 30 days. Sex
--- OUTSIDE RECORDS SUMMARY | 2023-07-12 20:09 | XMS_ITS | Continuity of Care Document ---
Author Name Unknown Organization [facility] Address [address] [place] [address]- Care Team Providers Care Civil Cad Tech Name Role Phone Namrata Prieto MD Primary Care Physician [phone] Encounter [facility] Date(s): 07/19/20 - 09/14/20 [facility] [address], [place] [address] Attending Physician: Namrata Prieto MD Admitting Physician: [...] 05/28/20 16:31:00 EDT, Route to Pharmacy Electronically, [place], [place] - [id number], 171, cm, 05/28/20 16:01:00 EDT, Height, 59.5, kg, 12/29/19... Start Date: 05/28/20 Status: Ordered atovaquone 750 mg/5 mL oral suspension 10 mL = 1,500 mg, By Mouth, Daily, for 60 days, # 600 mL, 11 Refills, Acute 05/18/22 16:35:00 EDT, 05/28/20 16:35:00 EDT, Suspension, [place], [place] - [id number], Pls cancel bactrim prescription. Atovaquone to replace bactrim, 171,... Start Date: 05/28/20 Stop Date: 05/18/22 Status: Ordered azithromycin 500 mg oral tablet 2 tablet = 1,000 mg, By Mouth, Once, take both tablets at once, # 2 tablet, 0 Refills, Soft Stop, 06/27/20 17:56:00 EDT, Tablet, [facility] [id number], 171, cm, 05/28/20 16:01:00 EDT, Height, 59.5, kg, 12/29/19 15:28:00 EDT, D... Start Date: 06/27/20 Status: Ordered Biktarvy oral tablet 1 tablet, By Mouth, Daily, for 30 days, # 30 tablet, 11 Refills, Hard Stop 05/23/21 16:35:00 EDT, 05/28/20 16:35:00 EDT, Tablet, [facility] [id number], 1 tablet By Mouth Daily,x30 days, 171, cm, 05/28/20 16:01:00 EDT, Height,... Start Date: 05/28/20 Stop Date: 05/23/21 Status: Ordered Colace sodium 100 mg oral capsule 100 mg, 1, capsule, By Mouth, 2 times a day, PRN, # 60 capsule, Refills 11, Tot. Refills 11, Maintenance, for constipation, 05/28/20 16:34:00 EDT, Route to Pharmacy Electronically, [facility] [id number], 171, cm, 05/28/20 16:0... Start Date: 05/28/20 [...] 06/28/20 13:01:00 EDT, Route to Pharmacy Electronically, [facility] [id number], 171, cm, 05/28/20 16:01:00 EDT, Height, 59.5... Start Date: 06/28/20 Status: Ordered hydrocortisone 0.5% topical cream See Instructions, use sparingly on face, use on all other affected areas, # 28 Gm, 11 Refills, Maintenance, 05/28/20 16:37:00 EDT, [facility] [id number], use sparingly on face, use on all other affected areas, 171, cm, ... Start Date: 05/28/20 Status: Ordered influenza virus vaccine, inactivated adjuvanted preservative-free quadrivalent intramuscular susp See Instructions, none, # 1 each, 0 Refills, Maintenance, 05/30/20 9:27:00 EDT, [facility], none, 171, cm, 05/28/20 16:01:00 EDT, Height, 59.5, kg, 12/29/19 15:28:00 EDT, Dry Weight Start Date: 05/30/20 Status: Ordered ketoconazole 2% topical cream 1 application, Topically, 2 times a day, for 28 days, use on the face, # 60 Gm, 11 Refills, Acute 04/29/21 16:40:00 EDT, 05/28/20 16:40:00 EDT, Cream, [facility] [id number], 1 application Topically 2 times a day,x28 days,Instr... Start Date: 05/28/20 Stop Date: 04/29/21 Status: Ordered ketoconazole 2% topical shampoo 1 application, Topically, Daily, try daily for 5 days as a shampoo, # 120 mL, 11 Refills, Soft Stop, 05/28/20 16:37:00 EDT, Shampoo, [facility], [place] - [id number], 1 application Topically Daily,Instr:try daily for 5 days as a shampoo,... Start Date: 05/28/20 Status: Ordered lithium 300 mg oral capsule 2 capsule = 600 mg, By Mouth, 2 times a day, # 120 capsule, 2 Refills, Maintenance, 06/28/20 12:56:00 EDT, [facility], [place] - [id number], Increase in dose per Psychiatry, 171, cm, 05/28/20 16:01:00 EDT, Height, 59.5, kg, 12/29/19 15:2... Start Date: 06/28/20 Status: Ordered LORazepam 0.5 mg oral tablet 1 tablet = 0.5 mg, By Mouth, 2 times a day, PRN Anxiety, # 60 tablet, 2 Refills, Maintenance, 06/28/20 12:56:00 EDT, Tablet, [facility], [place] - [id number], 171, cm, 05/28/20 16:01:00EDT, Height, 59.5, kg, 12/29/19 15:28:00 EDT, Dry W... Start Date: 06/28/20 Status: Ordered Mavyret 100 mg-40 mg oral tablet 3 tablet, By Mouth, Daily, with food, # 252 tablet, 0 Refills, Maintenance, 07/08/20 15:34:00 EST, Tablet, [facility], 3 tablet By [...] Maintenance, 05/28/20 16:35:00 EDT, Tablet, [facility], [place] - [id number], 171, cm, 05/28/20 16:01:00 EDT, Height, 59.5, kg, 12/29/19 15:28:00 EDT, Dry Weight Start Date: 05/28/20 Stop Date: 11/24/20 Status: Ordered multivitamin with minerals Calcium and Magnesium oral tablet 1 tablet, By Mouth, Daily, # 30 tablet, 11 Refills, Maintenance, 05/28/20 16:35:00 EDT, Tablet, [facility] [id number], 1 tablet By Mouth Daily, 171, cm, 05/28/20 16:01:00 EDT, Height, 59.5, kg, 12/29/19 15:28:00 EDT, Dry Weight Start Date: 05/28/20 Stop Date: 05/23/21 Status: Ordered Narcan 4 mg/0.1 mL nasal spray See Instructions, 4 mg Once may repeat every 2 to 3 minutes until patient responds, # 2 each, 1 Refills, Soft Stop, 08/24/19 9:41:00 EST, [place], [place] -, MAMADOU García to pickle cutter for Pt., 170, cm, 08/24/19 9:21:00 EST, Height, 66.36,... Start Date: 08/24/19 Status: Ordered Nicotine 2 mg gum 1 each = 2 mg, Chew, Every 2 hours, PRN as needed for smoking cessation, # 160 each, 3 Refills, Maintenance, 05/28/20 16:51:00 EDT, Gum, [facility] [id number], 171, cm, 05/28/20 16:01:00 EDT, Height, 59.5, [...] Refills, Soft Stop, 05/30/20 9:25:00 EDT, Suspension, [facility], 0.5 mL Intramuscular Once, 171, cm, 05/28/20 16:01:00 EDT, Height, 59.5, kg,12/29/19 15:28:00 EDT, Dry Weight Start Date: 05/30/20 Status: Ordered polyethylene glycol 3350 oral powder for reconstitution = 17 Gm, By Mouth, 2 times a day, PRN Constipation, dissolve in water before taking, # 527 Gm, 3 Refills, Maintenance, 11/28/19 9:42:00 EDT, REC Powder, [place], [place] -, 17 Gm By Mouth 2 times a day,x30 days,PRN:Constipation,Instr:... Start Date: 11/28/19 Stop Date: 03/27/20 Status: Ordered SEROquel 25 mg oral tablet 25 mg, 1, tablet, By Mouth, Daily at bedtime, # 30 tablet, Refills 2, Tot. Refills 2, Maintenance, 06/14/20 20:44:00 EDT, Route to Pharmacy Electronically, [facility], 171, cm, 05/28/20 16:01:00 EDT, Height, 59.5, kg, 12/29/19 15:28:00... Start Date: 06/14/20 Stop Date: 09/12/20 Status: Ordered sildenafil 100 mg oral tablet 1 tablet = 100 mg, By Mouth, Daily, 1 hour before sexual activity, # 10 tablet, 5 Refills, Maintenance, 09/04/20 14:26:00 EST, Tablet, [place], [place] - [id number], Partial fill upon patient request if the prescription is for a sched... 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 Sex
--- OUTSIDE RECORDS SUMMARY | 2023-07-12 20:09 | XMS_ITS | Continuity of Care Document ---
Author Name Unknown Organization [facility] y Address [address] [place] [address]- Care Team Providers Care Telephone Triage Nurse Name Role Phone Long SENIOR INTERNATIONAL TAX MANAGER, Giovanna Bernard Primary Care Physician Encounter [facility] Date(s): 09/14/19 - 11/04/19 [facility] [address] [place] [address]- Attending Physician: Isidoro Neely MD Admitting Physician: [...] 09/26/19 12:05:00 EST, Route to Pharmacy Electronically, [place], [place] -, 172, cm, 09/26/19 8:57:00 EST, Height, 66.3, kg, 09/11/19 13:26:00 EST... Start Date: 09/26/19 Status: Ordered atovaquone 750 mg/5 mL oral suspension 10 mL = 1,500 mg, By Mouth, Daily, for 60 days, # 600 mL, 5 Refills, Acute 08/18/20 9:40:00 EST, 08/24/19 9:40:00 EST, Suspension, [place], [place] -, Pls cancel bactrim prescription. Atovaquone to replace bactrim, 170, cm, 08/24/19 9... Start Date: 08/24/19 Stop Date: 08/18/20 Status: Ordered Biktarvy oral tablet 1 tablet, By Mouth, Daily, # 30 tablet, 5 Refills, Maintenance, 08/24/19 9:40:00 EST, Tablet, [place], [place] -, 1 tablet By Mouth Daily,x30 [...] 09/26/19 12:05:00 EST, Route to Pharmacy Electronically, [place], [place] -, 172, cm, 09/26/19 8:57:00 EST, [place]... Start Date: 09/26/19 Status: Ordered fluconazole 200 mg oral tablet 1 tablet = 200 mg, By Mouth, Daily, for 28 days, # 28 tablet, 5 Refills, Acute 02/08/20 9:42:00 EDT, 08/24/19 9:42:00 EST, Tablet, [place], [place] -, Decrease in dose., 170, cm, 08/24/19 9:21:00 EST, Height, 66.36, kg, 03/10/19 16:51... Start Date: 08/24/19 Stop Date: 02/08/20 Status: Ordered gabapentin 100 mg oral capsule 200 mg, 2, capsule, By Mouth, 3 times a day, # 180 capsule, Refills 0, Tot. Refills 0, Maintenance,10/24/19 11:24:00 EST, Route to Pharmacy Electronically, [place], [place] -, 172, cm, 09/26/19 8:57:00 EST, Height, 66.3, kg, 09/11/19... Start Date: 10/24/19 Stop Date: 11/23/19 Status: Ordered lithium 300 mg oral capsule 2 capsule = 600 mg, By Mouth, Daily at bedtime, # 60 capsule, 0 Refills, Maintenance, 10/24/19 11:23:00 EST, [place], [place] -, 172, cm, 09/26/19 8:57:00 EST, Height, 66.3, kg, 09/11/19 13:26:00 EST, Dry Weight Start Date: 10/24/19 Status: Ordered lithium 300 mg oral tablet 1 tablet = 300 mg, By Mouth, Daily, # 30 tablet, 0 Refills, Maintenance, 10/24/19 11:22:00 EST, Tablet, [place], [place] -, 172, cm, 09/26/19 8:57:00 EST, Height, 66.3, kg, 09/11/19 13:26:00 EST, Dry Weight Start Date: 10/24/19 Stop Date: 11/23/19 Status: Ordered LORazepam 0.5 mg oral tablet 1 tablet = 0.5 mg, By Mouth, 2 times a day, PRN Anxiety, # 60 tablet, 0 Refills, Maintenance, 10/24/19 11:24:00 EST, Tablet, [place], [place] -, 172, cm, 09/26/19 8:57:00 EST, [...] 0 Refills, Maintenance, 09/26/19 12:07:00 EST, Tablet, [facility] [place] -, 172, cm, 09/26/19 8:57:00 EST, Height, 66.3, kg,09/11/19 13:26:00 EST, Dry Weight Start Date: 09/26/19 Status: Ordered multivitamin with minerals Calcium and Magnesium oral tablet 1 tablet, By Mouth, Daily, # 30 tablet, 5 Refills, Maintenance, 09/26/19 12:05:00 EST, Tablet, [facility] [place] -, 1 tablet By Mouth Daily,x30 days, 172, cm, 09/26/19 8:57:00 EST, Height, 66.3, kg, 09/11/19 13:26:00 EST, Dry Weight Start Date: 09/26/19 Stop Date: 03/24/20 Status: Ordered Narcan 4 mg/0.1 mL nasal spray See Instructions, 4 mg Once may repeat every 2 to 3 minutes until patient responds, # 2 each, 1 Refills, Soft Stop, 08/24/19 9:41:00 EST, [facility] [place] -, MAMADOU García to brick picker for Pt., 170, cm, 08/24/19 9:21:00 [...]
--- OUTSIDE RECORDS SUMMARY | 2023-07-12 20:09 | XMS_ITS | Continuity of Care Document ---
Author Name Unknown Organization [facility] Address [address] [place] [address]- Care Team Providers Care Cheese Packer Name Role Phone Conner QUEEN, Namrata Agarwal Primary Care Physician Encounter [facility] Date(s): 05/22/20 - 06/21/20 [facility] [address] [place] [id number]- [facility] Allergies, Adverse Reactions, Alerts Substance Reaction [...] 05/28/20 16:31:00 EDT, Route to Pharmacy Electronically, [facility] [id number], 171, cm, 05/28/20 16:01:00 EDT, Height, 59.5, kg, 12/29/19... Start Date: 05/28/20 Status: Ordered atovaquone 750 mg/5 mL oral suspension 10 mL = 1,500 mg, By Mouth, Daily, for 60 days, # 600 mL, 11 Refills, Acute 05/18/22 16:35:00 EDT, 05/28/20 16:35:00 EDT, Suspension, [facility] [id number], Pls cancel bactrim prescription. Atovaquone to replace bactrim, 171,... Start Date: 05/28/20 Stop Date: 05/18/22 Status: Ordered Biktarvy oral tablet 1 tablet, By Mouth, Daily, for 30 days, # 30 tablet, 11 Refills, Hard Stop 05/23/21 16:35:00 EDT, 05/28/20 16:35:00 EDT, Tablet, [facility] [id number], 1 tablet By Mouth Daily,x30 days, 171, cm, 05/28/20 16:01:00 EDT, Height,... Start Date: 05/28/20 Stop Date: 05/23/21 Status: Ordered Colace sodium 100 mg oral capsule 100 mg, 1, capsule, By Mouth, 2 times a day, PRN, # 60 capsule, Refills 11, Tot. Refills 11, Maintenance, for constipation, 05/28/20 16:34:00 EDT, Route to Pharmacy Electronically, [facility] [id number], 171, cm, 05/28/20 16:0... Start Date: 05/28/20 Status: Ordered gabapentin 100 mg oral capsule 200 mg, 2, capsule, By Mouth, 3 times a day, # 180 capsule, Refills 1, Tot. Refills 1, Maintenance,05/07/20 16:16:00 EDT, Route to Pharmacy Electronically, [facility] [id number], 171, cm, 03/26/20 8:54:00 EDT, Height, 59.5, k... Start Date: 05/07/20 Stop Date: 09/04/20 Status: Ordered hydrocortisone 0.5% topical cream See Instructions, use sparingly on face, use on all other affected areas, # 28 Gm, 11 Refills, Maintenance, 05/28/20 16:37:00 EDT, [facility] [id number], use sparingly on face, use on all other affected areas, 171, cm, 2... Start Date: 05/28/20 Status: Ordered influenza virus vaccine, inactivated adjuvanted preservative-free quadrivalent intramuscular susp See Instructions, none, # 1 each, 0 Refills, Maintenance, 05/30/20 9:27:00 EDT, [facility], none, 171, cm, 05/28/20 16:01:00 EDT, Height, 59.5, kg, 12/29/19 15:28:00 EDT, Dry Weight Start Date: 05/30/20 Status: Ordered ketoconazole 2% topical cream 1 application, Topically, 2 times a day, for 28 days, use on the face, # 60 Gm, 11 Refills, Acute 04/29/21 16:40:00 EDT, 05/28/20 16:40:00 EDT, Cream, [facility] [id number], 1 application Topically 2 times a day,x28 days,Instr... Start Date: 05/28/20 Stop Date: 04/29/21 Status: Ordered ketoconazole 2% topical shampoo 1 application, Topically, Daily, try daily for 5 days as a shampoo, # 120 mL, 11 Refills, Soft Stop, 05/28/20 16:37:00 EDT, Shampoo, [facility] [id number], 1 application Topically Daily,Instr:try daily for 5 days as a shampoo,... Start Date: 05/28/20 Status: Ordered lithium 300 mg oral capsule 2 capsule = 600 mg, By Mouth, 2 times a day, # 120 capsule, 1 Refills, Maintenance, 05/07/20 16:16:00 EDT, [facility] [id number], Increase in dose per Psychiatry, 171, cm, 03/26/20 8:54:00 EDT, Height, 59.5, kg, 12/29/19 15:28... Start Date: 05/07/20 Status: Ordered LORazepam 0.5 mg oral tablet 1 tablet = 0.5 mg, By Mouth, 2 times a day, PRN Anxiety, # 60 tablet, 1 Refills, Maintenance, 05/07/20 16:16:00 EDT, Tablet, [facility] [id number], 171, cm, 03/26/20 8:54:00 EDT, Height, 59.5, [...] 5 Refills, Maintenance, 05/28/20 16:35:00 EDT, Tablet, [facility] [id number], 171, cm, 05/28/20 16:01:00 EDT, Height, 59.5, kg, 12/29/19 15:28:00 EDT, Dry Weight Start Date: 05/28/20 Stop Date: 11/24/20 Status: Ordered multivitamin with minerals Calcium and Magnesium oral tablet 1 tablet, By Mouth, Daily, # 30 tablet, 11 Refills, Maintenance, 05/28/20 16:35:00 EDT, Tablet, [facility] [id number], 1 tablet By Mouth Daily, 171, cm, 05/28/20 16:01:00 EDT, Height, 59.5, kg, 12/29/19 15:28:00 EDT, Dry Weight Start Date: 05/28/20 Stop Date: 05/23/21 Status: Ordered Narcan 4 mg/0.1 mL nasal spray See Instructions, 4 mg Once may repeat every 2 to 3 minutes until patient responds, # 2 each, 1 Refills, Soft Stop, 08/24/19 9:41:00 EST, [place], [place] -, MAMADOU García to filler picker for Pt., 170, cm, 08/24/19 9:21:00 EST, Height, 66.36,... Start Date: 08/24/19 Status: Ordered Nicotine 2 mg gum 1 each = 2 mg, Chew, Every 2 hours, PRN as needed for smoking cessation, # 160 each, 3 Refills, Maintenance, 05/28/20 16:51:00 EDT, Gum, [facility] [id number], 171, cm, 05/28/20 16:01:00 EDT, Height, 59.5, kg, 12/29/19 15:28:0... Start Date: 05/28/20 Status: Ordered Nicotine 7 mg/24 hour patch 1 patch, Topically, Daily, for 30 days, # 30 patch, 0 Refills, Acute 06/27/20 16:51:00 EDT, 05/28/20 16:51:00 EDT, Patch, [place], [place] - [id number], 1 patch Topically Daily,x30 days, 171, cm, [...] Refills, Soft Stop, 05/30/20 9:25:00 EDT, Suspension, [facility] 0.5 mL Intramuscular Once, 171, cm, 05/28/20 16:01:00 EDT, Height, 59.5, kg,12/29/19 15:28:00 EDT, Dry Weight Start Date: 05/30/20 Status: Ordered polyethylene glycol 3350 oral powder for reconstitution = 17 Gm, By Mouth, 2 times a day, PRN Constipation, dissolve in water before taking, # 527 Gm, 3 Refills, Maintenance, 11/28/19 9:42:00 EDT, REC Powder, [place], [place] -, 17 Gm By Mouth 2 times a day,x30 days,PRN:Constipation,Instr:... Start Date: 11/28/19 Stop Date: 03/27/20 Status: Ordered SEROquel 25 mg oral tablet 25 mg, 1, tablet, By Mouth, Daily at bedtime, # 30 tablet, Refills 2, Tot. Refills 2, Maintenance, 06/14/20 20:44:00 EDT, Route to Pharmacy Electronically, [facility]., 171, cm, 05/28/20 16:01:00 EDT, Height, 59.5, kg, 12/29/19 15:28:00... Start Date: 06/14/20 Stop Date: 09/12/20 Status: Ordered Viagra 50 mg oral tablet 1 tablet = 50 mg, By Mouth, Daily, PRN sexual activity, 1 hour before sexual activity, # 10 tablet,11 Refills, Maintenance, 05/29/20 20:14:00 EDT, Tablet, [facility] [place], [place] - [id number], 171, cm, 05/28/20 16:01:00 EDT, Height, 59.5, k... 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 Sex
--- OUTSIDE RECORDS SUMMARY | 2023-07-12 20:09 | XMS_ITS | Continuity of Care Document ---
Author Name Unknown Organization [facility] Address [address] [place] [address]- Care Team Providers Care Exercise Manager Name Role Phone Conner QUEEN, Namrata Agarwal Primary Care Physician Encounter [facility] Date(s): 03/06/20 - 04/05/20 [facility] [address] [place] [address]- [facility] Allergies, Adverse Reactions, Alerts Substance Reaction Severity Status shellfish Active Latex rash Active Immunizations Given and Recorded Vaccine Date Status Refusal Reason influenza virus vaccine, inactivated 06/08/19 Give n Medications amLODIPine 5 mg oral tablet 5 mg, 1, tablet, By Mouth, Daily, # 30 tablet, Refills 5, Tot. Refills 5, Maintenance, 11/28/19 9:43:00 EDT, Route to Pharmacy Electronically, [facility] [place], [place] -, 172, cm, 09/26/19 8:57:00 EST, Height, 66.3, kg, 09/11/19 13:26:00 EST,... Start Date: 11/28/19 Stop Date: 05/26/20 Status: Ordered atovaquone 750 mg/5 mL oral suspension 10 mL = 1,500 mg, By Mouth, Daily, for 60 days, # 600 mL, 5 Refills, Acute 11/22/20 9:44:00 EDT, 11/28/19 9:44:00 EDT, Suspension, [facility] [place], [place] -, Pls cancel bactrim prescription. Atovaquone to replace bactrim, 172, cm, 09/26/19 8... Start Date: 11/28/19 Stop Date: 11/22/20 Status: Ordered Biktarvy oral tablet 1 tablet, By Mouth, Daily, for 30 days, # 30 tablet, 5 Refills, Hard Stop 08/25/20 12:37:00 EST, 02/27/20 12:37:00 EDT, Tablet, [place], [place] -, 1 tablet By Mouth Daily,x30 days, 171, cm, 02/22/20 10:16:00 EDT, Height, 59.5, kg, 04... Start Date: 02/27/20 Stop Date: 08/25/20 Status: Ordered Biktarvy oral tablet 1 tablet, By Mouth, Daily, # 30 tablet, 5 Refills, Maintenance, 08/18/20 5:43:00 EST, Tablet, [place], [place] -, 1 tablet By Mouth Daily,x30 [...] 12/29/19 16:19:00 EDT, Route to Pharmacy Electronically, [place], [place] -, 171, cm, 12/29/19 15:28:00 EDT, Hei... Start Date: 12/29/19 Status: Ordered gabapentin 100 mg oral capsule 200 mg, 2, capsule, By Mouth, 3 times a day, # 180 capsule, Refills 3, Tot. Refills 3, Maintenance,02/27/20 12:37:00 EDT, Route to Pharmacy Electronically, [place], [place] -, 171, cm, 02/22/20 10:16:00 EDT, Height, 59.5, kg, 2... Start Date: 02/27/20 Stop Date: 06/26/20 Status: Ordered hydrocortisone 0.5% topical cream See Instructions, apply in a thin film to the hands and rub in gently 3 times a day for 5 days, # 28 Gm, 1 Refills, Maintenance, 02/27/20 12:35:00 EDT, [place], [place] -, apply in athin film to the hands and rub in gently 3 times a... Start Date: 02/27/20 Status: Ordered ketoconazole 2% topical shampoo 1 application, Topically, Daily, try daily for 5 days as a shampoo, # 120 mL, 3 Refills, Soft Stop,12/21/19 11:58:00 EDT, Shampoo, [place], [place] -, 1 application Topically Daily,Instr:try daily for 5 days as a shampoo, 172, cm, 01... Start Date: 12/21/19 Status: Ordered lithium 300 mg oral capsule See Instructions, 1 capsule by mouth in the AM and 2 capsule By Mouth Daily at bedtime 30 days, # 90 capsule, 2 Refills, Maintenance, 03/26/20 9:27:00 EDT, [place], [place] -, Increase in dose per Psychiatry, 171, cm, 03/26/20 8:54:00... Start Date: 03/26/20 Status: Ordered LORazepam 0.5 mg oral tablet 1 tablet = 0.5 mg, By Mouth, 2 times a day, PRN Anxiety, # 60 tablet, 2 Refills, Maintenance, 02/27/20 12:37:00 EDT, Tablet, [place], [place] -, 171, cm, 02/22/20 10:16:00 EDT, [...] tablet, 5 Refills, Maintenance, 11/28/19 9:41:00EDT, Tablet, [place], [place] -, 172, cm, 09/26/19 8:57:00 EST, Height, 66.3, kg, 09/11/19 13:26:00 EST, Dry Weight Start Date: 11/28/19 Stop Date: 05/26/20 Status: Ordered multivitamin with minerals Calcium and Magnesium oral tablet 1 tablet, By Mouth, Daily, # 30 tablet, 5 Refills, Maintenance, 09/26/19 12:05:00 EST, Tablet, [place], [place] -, 1 tablet By Mouth Daily,x30 days, 172, cm, 09/26/19 8:57:00 EST, Height, 66.3, kg, 09/11/19 13:26:00 EST, Dry Weight Start Date: 09/26/19 Stop Date: 03/24/20 Status: Ordered Narcan 4 mg/0.1 mL nasal spray See Instructions, 4 mg Once may repeat every 2 to 3 minutes until patient responds, # 2 each, 1 Refills, Soft Stop, 08/24/19 9:41:00 EST, [place], [place] -, MAMADOU Munozll to molded goods spot picker for Pt., 170, cm, 08/24/19 9:21:00 [...] Refills, Maintenance, 11/28/19 9:42:00 EDT, REC Powder, [place], [place] -, 17 Gm By Mouth 2 times a day,x30 days,PRN:Constipation,Instr:... Start Date: 11/28/19 Stop Date: 03/27/20 Status: Ordered SEROquel 25 mg oral tablet 25 mg, 1, tablet, By Mouth, Daily at bedtime, # 30 tablet, Refills 2, Tot. Refills 2, Maintenance, 03/26/20 9:29:00 EDT, Route to Pharmacy Electronically, [facility] - [place], [place] -, 171, cm, 03/26/20 8:54:00 EDT, [...]
--- OUTSIDE RECORDS SUMMARY | 2023-07-12 20:09 | XMS_ITS | Continuity of Care Document ---
Author Name Unknown Organization [facility] Address [address] [place] [address]- Care Team Providers Care Locomotive Inspector Name Role Phone Conner QUEEN, Namrata Agarwal Primary Care Physician Encounter [facility] Date(s): 07/17/21 - 08/16/21 [facility] [address] [place] [address]- Allergies, Adverse Reactions, Alerts Substance Reaction Severity Status shellfish Active Latex rash Active Suboxone migraine (PO), fevers (IM) A ctive Immunizations Given and Recorded Vaccine Date Status Refusal Reason SARS-CoV-2 (COVID-19) mRNA-1273 vaccine 04/21/21 G iven influenza virus vaccine, inactivated 07/02/20 Give n influenza virus vaccine, inactivated 06/08/19 Give n Medications Albuterol (Eqv-ProAir HFA) 90 mcg/inh inhalation aerosol 2 puffs, Inhalation, Every 6 hours, # 8.5 Gm, 0 Refills, [facility], 25, INHALE 2 PUFFS BY MOUTH INTO THE lungs EVERY 6 HOURS, 173, cm, 04/21/21 8:17:00 EDT, Height, 84, kg, 04/19/21 2:36:00 EDT, Dry Weight Start Date: 08/14/21 Status: Ordered amLODIPine 10 mg oral tablet 10 mg, 1, tablet, By Mouth, Daily, # 30 tablet, Refills 5, Tot. Refills 5, Maintenance, 03/07/21 6:50:00 EDT, Route to Pharmacy Electronically, [facility] - [place], [place] - [id number], 174, cm, 01/13/21 8:20:00 EDT, Height, 93, kg, 01/08/21 18:... Start Date: 03/07/21 Status: Ordered atovaquone 750 mg/5 mL oral suspension 10 mL = 1,500 mg, By Mouth, Daily, for 60 days, # 600 mL, 11 Refills, Acute 02/25/23 6:50:00 EDT, 03/07/21 6:50:00 EDT, Suspension, [place], [place] - [id number], Pls cancel bactrim prescription. Atovaquone to replace bactrim, 174, cm... Start Date: 03/07/21 Stop Date: 02/25/23 Status: Ordered Biktarvy oral tablet 1 tablet, By Mouth, Daily, # 30 tablet, 11 Refills, [facility], 30, TAKE ONE TABLET BY MOUTH DAILY, 173, cm, 04/21/21 8:17:00 EDT, Height, 84, kg, 04/19/21 2:36:00 EDT, Dry Weight Start Date: 06/25/21 Status: Ordered Biktarvy oral tablet 1 tablet, By Mouth, Daily, # 30 tablet, 11 Refills, [facility], 30, TAKE ONE TABLET BY MOUTH DAILY, 173, cm, 04/21/21 8:17:00 EDT, Height, 84, kg, 04/19/21 2:36:00 EDT, Dry Weight Start Date: 06/25/21 Status: Ordered docusate sodium 100 mg oral [...] Gm, 11 Refills, Maintenance, 03/07/21 6:50:00 EDT, [place], [place] - [phone], use sparingly on face, use on all other affected areas, 174, cm, 01/13/21... Start Date: 03/07/21 Status: Ordered Incruse Ellipta 62.5 mcg/inh inhalation powder 1 puffs, Inhalation, Every 24 hours, doses should be taken AT least 24 HOURS APART, # 30 Unknown, 0Refills, [facility], 173, cm, 04/21/21 8:17:00 EDT, Height, 84, kg, 04/19/21 2:36:00 EDT, Dry Weight Start Date: 08/14/21 Status: Ordered ketoconazole 2% topical cream See [...] 0 Refills, Maintenance, 07/08/20 15:34:00 EST, Tablet, [facility], 3 tablet By Mouth Daily,x12 week(s),Instr:with food, 171, cm, 07/08/20 13:19:00 EST, Height, 59.5, kg, 12/29/19 15:... Start Date: 07/08/20 Stop Date: 09/30/20 Status: Ordered Methadone = 100 mg, By Mouth, Daily, 0 Refills, Maintenance, 05/28/20 16:11:00 EDT, Partial fill upon patientrequest Start Date: 05/28/20 Status: Ordered multivitamin with minerals Calcium and Magnesium oral tablet 1 tablet, By Mouth, Daily, # 30 tablet, 11 Refills, Maintenance, 03/07/21 6:51:00 EDT, Tablet, [facility] [id number], 1 tablet By Mouth Daily, 174, cm, 01/13/21 8:20:00 EDT, Height, 93, kg, 01/08/21 18:17:00 EDT, Dry Weight Start Date: 03/07/21 Status: Ordered Narcan 4 mg/0.1 mL nasal spray See Instructions, 4 mg Once may repeat every 2 to 3 minutes until patient responds, # 2 each, 1 Refills, Soft Stop, 08/24/19 9:41:00 EST, [facility], MAMADOU 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 Start Date: 08/24/19 Status: Ordered ondansetron 4 mg oral tablet, disintegrating 1 tablet = 4 mg, By Mouth, Every 8 hours, PRN as needed for nausea/vomiting, # 12 tablet, 0 Refills, Maintenance, 12/08/20 19:19:00 EDT, DIS Tablet, [place], [place] - [id number], Partial fill upon patient request if the [...] 11/28/19 9:42:00 EDT, REC Powder, [facility], 17 Gm By Mouth 2 times a day,x30 days,PRN:Constipation,Instr:... Start Date: 11/28/19 Stop Date: 03/27/20 Status: Ordered rOPINIRole 0.25 mg oral tablet See Instructions, TAKE ONE TABLET BY MOUTH DAILY 1 TO 3 HOURS BEFORE bedtime FOR RESTLESS LEG. DOSEMAY be increased AFTER 2 DAYS TO 0.5mg ONCE DAILY, AND AFTER 7 DAYS 1mg ONCE DAILY, # 30 tablet, 0 Refills, [facility], 173, cm, 04/21/21 8:17:00... Start Date: 08/14/21 Status: Ordered rOPINIRole 0.25 mg oral tablet 1 tablet = 0.25 mg, By Mouth, Daily at bedtime, For restless leg syndrome. Take one 0.25 mg tablet once daily 1 to 3 hours before bedtime. Dose may be increased after 2 days to 0.5 mg once daily, andafter 7 days to 1 mg once daily., # 30 tabl... Start Date: 07/18/21 Stop Date: 08/17/21 Status: Ordered sildenafil 100 mg oral tablet 1 tablet = 100 mg, By Mouth, Daily, 1 hour before sexual activity, # 20 tablet, 11 Refills, Maintenance, 03/07/21 6:49:00 EDT, Tablet, [place], [place] - [id number], Partial fill upon patient request if the prescription is for a sched... Start Date: 03/07/21 Status: Ordered Zithromax Z-Devin 250 mg oral tablet 1 pack/packet, By Mouth, Once, # 6 tablet, 0 Refills, Soft Stop, 07/18/21 10:55:00 EST, Tablet, [place], [place] - [id number], Partial fill upon patient request if the prescription is for a schedule II opioid drug., 173, cm, 04/21/21... 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
--- OUTSIDE RECORDS SUMMARY | 2023-07-12 20:09 | XMS_ITS | Continuity of Care Document ---
Author Name Unknown Organization [facility] Address [address] [place] [address]- Care Team Providers Care Tractor Crane Operator Name Role Phone Conner QUEEN, Namrata Agarwal Primary Care Physician [phone] Encounter [facility] Date(s): 03/20/20 - 04/19/20 [facility] [address] [place] [address]- [place] Allergies, Adverse Reactions, Alerts Substance Reaction Severity Status shellfish Active Latex rash Active Immunizations Given and Recorded Vaccine Date Status Refusal Reason influenza virus vaccine, inactivated 06/08/19 Give n Medications amLODIPine 5 mg oral tablet 5 mg, 1, tablet, By Mouth, Daily, # 30 tablet, Refills 5, Tot. Refills 5, Maintenance, 11/28/19 9:43:00 EDT, Route to Pharmacy Electronically, [facility] - [place], [place] -, 172, kenan, 09/26/19 8:57:00 EST, Height, 66.3, kg, 09/11/19 13:26:00 EST,... Start Date: 11/28/19 Stop Date: 05/26/20 Status: Ordered atovaquone 750 mg/5 mL oral suspension 10 mL = 1,500 mg, By Mouth, Daily, for 60 days, # 600 mL, 5 Refills, Acute 11/22/20 9:44:00 EDT, 11/28/19 9:44:00 EDT, Suspension, [facility] - [place], [place] -, Pls cancel bactrim prescription. Atovaquone to replace bactrim, 172, cm, 09/26/19 8... Start Date: 11/28/19 Stop Date: 11/22/20 Status: Ordered Biktarvy oral tablet 1 tablet, By Mouth, Daily, for 30 days, # 30 tablet, 5 Refills, Hard Stop 08/25/20 12:37:00 EST, 02/27/20 12:37:00 EDT, Tablet, [place], [place] -, 1 tablet By Mouth Daily,x30 days, 171, cm, 02/22/20 10:16:00 EDT, Height, 59.5, kg, 04... Start Date: 02/27/20 Stop Date: 08/25/20 Status: Ordered Biktarvy oral tablet 1 tablet, By Mouth, Daily, # 30 tablet, 5 Refills, Maintenance, 08/18/20 5:43:00 EST, Tablet, [place], [place] -, 1 tablet By Mouth Daily,x30 [...] 12/29/19 16:19:00 EDT, Route to Pharmacy Electronically, [place], [place] -, 171, cm, 12/29/19 15:28:00 EDT, Hei... Start Date: 12/29/19 Status: Ordered gabapentin 100 mg oral capsule 200 mg, 2, capsule, By Mouth, 3 times a day, # 180 capsule, Refills 3, Tot. Refills 3, Maintenance,02/27/20 12:37:00 EDT, Route to Pharmacy Electronically, [place], [place] -, 171, cm, 02/22/20 10:16:00 EDT, Height, 59.5, kg, 2... Start Date: 02/27/20 Stop Date: 06/26/20 Status: Ordered hydrocortisone 0.5% topical cream See Instructions, apply in a thin film to the hands and rub in gently 3 times a day for 5 days, # 28 Gm, 1 Refills, Maintenance, 02/27/20 12:35:00 EDT, [place], [place] -, apply in athin film to the hands and rub in gently 3 times a... Start Date: 02/27/20 Status: Ordered ketoconazole 2% topical shampoo 1 application, Topically, Daily, try daily for 5 days as a shampoo, # 120 mL, 3 Refills, Soft Stop,12/21/19 11:58:00 EDT, Shampoo, [place], [place] -, 1 application Topically Daily,Instr:try daily for 5 days as a shampoo, 172, cm, 01... Start Date: 12/21/19 Status: Ordered lithium 300 mg oral capsule See Instructions, 1 capsule by mouth in the AM and 2 capsule By Mouth Daily at bedtime 30 days, # 90 capsule, 2 Refills, Maintenance, 03/26/20 9:27:00 EDT, [place], [place] -, Increase in dose per Psychiatry, 171, cm, 03/26/20 8:54:00... Start Date: 03/26/20 Status: Ordered LORazepam 0.5 mg oral tablet 1 tablet = 0.5 mg, By Mouth, 2 times a day, PRN Anxiety, # 60 tablet, 2 Refills, Maintenance, 02/27/20 12:37:00 EDT, Tablet, [place], [place] -, 171, cm, 02/22/20 10:16:00 EDT, [...] tablet, 5 Refills, Maintenance, 11/28/19 9:41:00EDT, Tablet, [place], [place] -, 172, cm, 09/26/19 8:57:00 EST, Height, 66.3, kg, 09/11/19 13:26:00 EST, Dry Weight Start Date: 11/28/19 Stop Date: 05/26/20 Status: Ordered multivitamin with minerals Calcium and Magnesium oral tablet 1 tablet, By Mouth, Daily, # 30 tablet, 5 Refills, Maintenance, 09/26/19 12:05:00 EST, Tablet, [place], [place] -, 1 tablet By Mouth Daily,x30 days, 172, cm, 09/26/19 8:57:00 EST, Height, 66.3, kg, 09/11/19 13:26:00 EST, Dry Weight Start Date: 09/26/19 Stop Date: 03/24/20 Status: Ordered Narcan 4 mg/0.1 mL nasal spray See Instructions, 4 mg Once may repeat every 2 to 3 minutes until patient responds, # 2 each, 1 Refills, Soft Stop, 08/24/19 9:41:00 EST, [place], [place] -, [facility] 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 Start Date: 11/28/19 Stop Date: 03/27/20 Status: Ordered SEROquel 25 mg oral tablet 25 mg, 1, tablet, By Mouth, Daily at bedtime, # 30 tablet, Refills 2, Tot. Refills 2, Maintenance, 03/26/20 9:29:00 EDT, Route to Pharmacy Electronically, [facility] - [place], [place] -, 171, cm, 03/26/20 8:54:00 EDT, [...]
--- OUTSIDE RECORDS SUMMARY | 2023-07-12 20:09 | XMS_ITS | Continuity of Care Document ---
Author Name Unknown Organization [facility] Address [address] [place] [address]- Care Team Providers Care Kohinoor Operator Name Role Phone Conner QUEEN, Namrata Agarwal Primary Care Physician [place] [facility] [place]04[place]22 - 04/03/[address] [address] Attending Physician: Admhelen, [place] Admitting Physician: AdmtrAngeles Referring Physician: Admtr, Ar8 Allergies, Adverse Reactions, [...] 8:29:00 EDT, Powder, Route to Pharmacy Electronically, [id number], [facility] - [place]... Start Date: 01/07/22 Stop Date: 01/02/23 Status: Ordered Albuterol (Eqv-ProAir HFA) 90 mcg/inh inhalation aerosol 2 puffs, Inhalation, Every 6 hours, # 8.5 Gm, 11 Refills, 08/25/21 12:34:00 EST, [facility] [id number], 25, 2 puffs Inhalation Every 6 hours, 173, cm, 08/25/21 12:31:00 EST, Height, 84, kg, 04/19/21 2:36:00 EDT, Dry Weight Start Date: 08/25/21 Status: Ordered amLODIPine 10 mg oral tablet 10 mg, 1, tablet, By Mouth, Daily, # 30 tablet, Refills 11, Tot. Refills 11, Maintenance, 08/27/21 16:46:00 EST, Route to Pharmacy Electronically, [facility] [id number], 173,cm, 08/25/21 12:31:00 EST, Height, 84, kg, 04/19/21... Start Date: 08/27/21 Status: Ordered Asperflex 4% topical film 1 patch, Topically, Daily, for 30 days, # 30 patch, 11 Refills, Acute 03/12/23 14:41:00 EDT, 03/17/22 14:41:00 EDT, [facility] [id number], Partial fill upon patient request if the prescription is for a schedule II opioid drug.... Start Date: 03/17/22 Stop Date: 03/12/23 Status: Ordered aspirin 81 mg oral tablet, chewable 81 mg, 1, tablet, By Mouth, Daily, # 120 tablet, Refills 3, Tot. Refills 3, Maintenance, 10/02/21 11:47:00 EST, Route to Pharmacy Electronically, [facility] [id number], Partial fill upon patient request if the prescription is... Start Date: 10/02/21 Stop Date: 01/25/23 Status: Ordered atorvastatin 80 mg oral tablet 1 tablet = 80 mg, By Mouth, Daily, # 30 tablet, 11 Refills, Maintenance, 11/07/21 14:34:00 EST, Tablet, [facility] [id number], Partial fill upon patient request if the prescription is for a schedule II opioid drug., 170, cm, 0... Start Date: 11/07/21 Status: Ordered atovaquone 750 mg/5 mL oral suspension 10 mL = 1,500 mg, By Mouth, Daily, for 60 days, # 600 mL, 11 Refills, Acute 10/28/23 14:35:00 EST, 11/07/21 14:35:00 EST, Suspension, [facility], [place] - [id number], Pls cancel bactrim prescription. Atovaquone to replace bactrim, 170,... Start Date: 11/07/21 Stop Date: 10/28/23 Status: Ordered Biktarvy oral tablet 1 tablet, By Mouth, Daily, # 30 tablet, 11 Refills, [facility], 30, TAKE ONE TABLET BY MOUTH DAILY, 173, cm, 04/21/21 8:17:00 EDT, Height, 84, kg, 04/19/21 2:36:00 EDT, Dry Weight Start Date: 06/25/21 Status: Ordered Colace sodium 100 mg oral capsule 100 mg, 1, capsule, By Mouth, 2 times a day, PRN, # 60 capsule, Refills 11, Tot. Refills 11, Maintenance, for constipation, 12/02/21 16:54:00 EDT, Route to Pharmacy Electronically, [facility], [facility] [id number], Partial fill upon pilar... Start Date: 12/02/21 [...] 1 Refills, Soft Stop, 03/05/22 10:37:00 EDT, [facility], [facility] [id number], Partial fill upon patient request if the prescriptio... Start Date: 03/05/22 Status: Ordered ergocalciferol 99999 iu oral capsule 50,000 [employer], 1, capsule, By Mouth, Every week, for 30 days, # 5 capsule, Refills 1, Tot. Refills 1, Acute 05/04/22 10:22:00 EDT, 03/05/22 10:22:00 EDT, Route to Pharmacy Electronically, [facility], [facility] [id number], 17... Start Date: 03/05/22 Stop Date: 05/04/22 Status: Ordered hydrocortisone 0.5% topical cream See Instructions, use sparingly on face, use on all other affected areas, # 28 Gm, 11 Refills, Maintenance, 03/07/21 6:50:00 EDT, [facility] [id number], use sparingly on face, use on all other affected areas, 174, cm, 01/13/21... Start Date: 03/07/21 Status: Ordered Incruse Ellipta 62.5 mcg/inh inhalation powder 1 puffs, Inhalation, Every 24 hours, doses should be taken AT least 24 HOURS APART, # 30 Unknown, 11 Refills, 08/25/21 12:34:00 EST, [facility] [id number], 173, cm, 08/25/21 12:31:00 EST, Height, 84, kg, 04/19/21 2:36:00 EDT,... Start Date: 08/25/21 Status: Ordered ketoconazole 2% topical cream 1 application, Topically, Daily, # 30 Gm, 11 Refills, Maintenance, 12/02/21 16:56:00 EDT, [facility] [id number], 1 application Topically Daily, 170, cm, 10/10/21 13:45:00 EST, Height, 110, kg, 09/29/21 21:14:00 EST, Dry Weight Start Date: 12/02/21 Status: Ordered Lidoderm 5% film 1 patch, Topically, Daily, # 30 patch, 11 Refills, Maintenance, 03/19/22 21:12:00 EDT, [facility] [id number], Partial fill upon patient request if the [...] 0 Refills, Maintenance, 11/11/21 17:22:00 EST, Tablet, [facility] [id number], 170, cm, 10/10/21 13:45... Start Date: 11/11/21 Stop Date: 12/11/21 Status: Ordered multivitamin with minerals Calcium and Magnesium oral tablet 1 tablet, By Mouth, Daily, # 30 tablet, 11 Refills, Maintenance, 12/15/21 6:32:00 EDT, Tablet, [place], [place] - [id number], 1 tablet By Mouth Daily, 173, cm, 12/05/21 17:38:00 EDT,Height, 127, kg, 12/05/21 17:38:00 EDT, Dry Weight Start Date: 12/15/21 Status: Ordered Narcan 4 mg/0.1 mL nasal spray See Instructions, 4 mg Once may repeat every 2 to 3 minutes until patient responds, # 2 each, 3 Refills, Soft Stop, 03/05/22 10:07:00 EDT, [facility] [id number], 173, cm, 12/05/21 17:38:00 EDT, Height, 127, kg, 12/05/21 17:38... Start Date: 03/05/22 Status: Ordered Nicotine 2 mg gum 1 each = 2 mg, Chew, Every 2 hours, PRN as needed for smoking cessation, for 4 week(s), # 160 each,11 Refills, Acute 09/11/22 12:53:00 EST, 10/10/21 12:53:00 EST, Gum, [facility] [id number], Partial fill upon patient request... Start Date: 10/10/21 Stop Date: 09/11/22 Status: Ordered ondansetron 4 mg oral tablet, disintegrating 1 tablet = 4 mg, By Mouth, Every 8 hours, PRN as needed for nausea/vomiting, # 12 tablet, 11 Refills, Maintenance, 08/21/21 13:33:00 EST, DIS Tablet, [facility] [id number], Partial fill upon patient request if the [...] Refills, Maintenance, 12/02/21 16:55:00 EDT, REC Powder, [facility] [id number], 17 Gm By Mouth 2 times a day,x30 days,PRN:Constip... Start Date: 12/02/21 Stop Date: 04/01/22 Status: Ordered rOPINIRole 0.5 mg oral tablet 1 tablet = 0.5 mg, By Mouth, Daily at bedtime, 1 to 3 hours before bedtime, # 30 tablet, 11 Refills, Maintenance, 08/21/21 13:32:00 EST, Tablet, [facility] [id number], Partial fill upon patient request if the prescription is f... Start Date: 08/21/21 Status: Ordered Senna 8.6 mg oral tablet 1 or 2 tablets, By Mouth, Daily at bedtime, PRN, # 60 tablet, Refills 5, Tot. Refills 5, Maintenance, Constipation, 10/10/21 14:43:00 EST, Route to Pharmacy Electronically, [facility] [id number] Tablet, Partial fill upon patie... Start Date: 10/10/21 Status: Ordered sildenafil 100 mg oral tablet 1 tablet = 100 mg, By Mouth, Daily, 1 hour before sexual activity, # 20 tablet, 11 Refills, Maintenance, 03/07/21 6:49:00 EDT, Tablet, [facility] [id number], Partial fill upon patient request if the prescription is for a sched... Start Date: 03/07/21 Status: Ordered varenicline 1mg tablet 1 tablet = 1 mg, By Mouth, Daily, 0.5 tab daily x 3 days then 0.5 tab BID x 3 days then 1 tab BID, # 30 tablet, 4 Refills, Maintenance, 04/01/22 16:45:00 EDT, Tablet, [facility] [id number], Partial fill upon patient request if... 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
--- OUTSIDE RECORDS SUMMARY | 2023-07-12 20:09 | XMS_ITS | Continuity of Care Document ---
Author Name Unknown Organization [facility] Address [address] [place] [address]- Care Team Providers Care Cash Grain Farmer Name Role Phone Conner QUEEN, Namrata Agarwal Primary Care Physician Encounter [facility] Date(s): 11/21/20 - 12/21/20 [facility] [address] [place] [id number]- Allergies, Adverse Reactions, Alerts Substance Reaction Severity [...] 10/28/20 9:30:00 EST, Route to Pharmacy Electronically, [place], [place] - [id number], 173, cm, 07/17/20 19:29:00 EST, Height, 83.9, kg, 07/17/20... Start Date: 10/28/20 Status: Ordered atovaquone 750 mg/5 mL oral suspension 10 mL = 1,500 mg, By Mouth, Daily, for 60 days, # 600 mL, 11 Refills, Acute 05/18/22 16:35:00 EDT, 05/28/20 16:35:00 EDT, Suspension, [place], [place] - [id number], Pls cancel bactrim prescription. Atovaquone to replace bactrim, 171,... Start Date: 05/28/20 Stop Date: 05/18/22 Status: Ordered azithromycin 500 mg oral tablet 2 tablet = 1,000 mg, By Mouth, Once, take both tablets at once, # 2 tablet, 0 Refills, Soft Stop, 06/27/20 17:56:00 EDT, Tablet, [facility] [id number], 171, cm, 05/28/20 16:01:00 EDT, Height, 59.5, kg, 12/29/19 15:28:00 EDT, D... Start Date: 06/27/20 Status: Ordered Biktarvy oral tablet 1 tablet, By Mouth, Daily, for 30 days, # 30 tablet, 11 Refills, Hard Stop 05/23/21 16:35:00 EDT, 05/28/20 16:35:00 EDT, Tablet, [facility] [id number], 1 tablet By Mouth Daily,x30 days, 171, cm, 05/28/20 16:01:00 EDT, Height,... Start Date: 05/28/20 Stop Date: 05/23/21 Status: Ordered Colace sodium 100 mg oral capsule 100 mg, 1, capsule, By Mouth, 2 times a day, PRN, # 60 capsule, Refills 11, Tot. Refills 11, Maintenance, for constipation, 05/28/20 16:34:00 EDT, Route to Pharmacy Electronically, [facility] [id number], 171, cm, 05/28/20 16:0... Start Date: 05/28/20 [...] EST, Supply Start Date: 08/19/20 Status: Ordered d/c gabapentin d/c gabapentin, See Instructions, # 1 each, Refills 0, Tot. Refills 0, Maintenance, d/c gabapentin,11/21/20 11:50:00 EDT, Supply, 173, cm, 07/17/20 19:29:00 EST, Height, 83.9, kg, 07/17/20 19:29:00 EST, Dry Weight Start Date: 11/21/20 Status: Ordered hydrocortisone 0.5% topical cream See Instructions, use sparingly on face, use on all other affected areas, # 28 Gm, 11 Refills, Maintenance, 05/28/20 16:37:00 EDT, [facility] [id number], use sparingly on face, use on all other affected areas, 171, cm, ... Start Date: 05/28/20 Status: Ordered influenza virus vaccine, inactivated adjuvanted preservative-free quadrivalent intramuscular susp See Instructions, none, # 1 each, 0 Refills, Maintenance, 05/30/20 9:27:00 EDT, [facility], none, 171, cm, 05/28/20 16:01:00 EDT, Height, 59.5, kg, 12/29/19 15:28:00 EDT, Dry Weight Start Date: 05/30/20 Status: Ordered ketoconazole 2% topical cream 1 application, Topically, 2 times a day, for 28 days, use on the face, # 60 Gm, 11 Refills, Acute 04/29/21 16:40:00 EDT, 05/28/20 16:40:00 EDT, Cream, [facility] [id number], 1 application Topically 2 times a day,x28 days,Instr... Start Date: 05/28/20 Stop Date: 04/29/21 Status: Ordered ketoconazole 2% topical shampoo 1 application, Topically, Daily, try daily for 5 days as a shampoo, # 120 mL, 11 Refills, Soft Stop, 05/28/20 16:37:00 EDT, Shampoo, [facility] [id number], 1 application Topically Daily,Instr:try daily for 5 days as a shampoo,... Start Date: 05/28/20 Status: Ordered lithium 300 mg oral capsule 2 capsule = 600 mg, By Mouth, 2 times a day, # 120 capsule, 2 Refills, Maintenance, 06/28/20 12:56:00 EDT, [facility] [id number], Increase in dose per Psychiatry, 171, cm, 05/28/20 16:01:00 EDT, Height, 59.5, kg, 12/29/19 15:2... Start Date: 06/28/20 Status: Ordered LORazepam 0.5 mg oral tablet 1 tablet = 0.5 mg, By Mouth, 2 times a day, PRN Anxiety, # 60 tablet, 2 Refills, Maintenance, 06/28/20 12:56:00 EDT, Tablet, [facility] [id number], 171, cm, 05/28/20 16:01:00EDT, Height, 59.5, kg, 12/29/19 15:28:00 EDT, Dry W... Start Date: 06/28/20 Status: Ordered Mavyret 100 mg-40 mg oral tablet 3 tablet, By Mouth, Daily, with food, # 252 tablet, 0 Refills, Maintenance, 07/08/20 15:34:00 EST, Tablet, [facility], 3 tablet By Mouth Daily,x12 [...] Mouth, Daily at bedtime, # 30 tablet, 11 Refills, Maintenance, 12/03/20 12:50:00 EDT, Tablet, [facility], [facility] [id number], 173, cm, 07/17/20 19:29:00 EST, Height, 83.9, kg, 07/17/20 19:29:00 EST, Dry Weight Start Date: 12/03/20 Stop Date: 11/28/21 Status: Ordered multivitamin with minerals Calcium and Magnesium oral tablet 1 tablet, By Mouth, Daily, # 30 tablet, 11 Refills, Maintenance, 05/28/20 16:35:00 EDT, Tablet, [facility] [id number], 1 tablet By Mouth Daily, 171, cm, 05/28/20 16:01:00 EDT, Height, 59.5, kg, 12/29/19 15:28:00 EDT, Dry Weight Start Date: 05/28/20 Stop Date: 05/23/21 Status: Ordered Narcan 4 mg/0.1 mL nasal spray See Instructions, 4 mg Once may repeat every 2 to 3 minutes until patient responds, # 2 each, 1 Refills, Soft Stop, 08/24/19 9:41:00 EST, [place], [place] -, MAMADOU García to belt picker for Pt., 170, cm, 08/24/19 9:21:00 EST, Height, 66.36,... Start Date: 08/24/19 Status: Ordered Nicotine 2 mg gum 1 each = 2 mg, Chew, Every 2 hours, PRN as needed for smoking cessation, # 160 each, 3 Refills, Maintenance, 05/28/20 16:51:00 EDT, Gum, [facility] [id number], 171, cm, 05/28/20 16:01:00 EDT, Height, 59.5, kg, 12/29/19 15:28:0... Start Date: 05/28/20 Status: Ordered ondansetron 4 mg oral tablet, disintegrating 1 tablet = 4 mg, By Mouth, Every 8 hours, PRN as needed for nausea/vomiting, # 12 tablet, 0 Refills, Maintenance, 12/08/20 19:19:00 EDT, DIS Tablet, [facility] [id number], Partial fill upon patient request if the [...] Refills, Soft Stop, 05/30/20 9:25:00 EDT, Suspension, [facility]., 0.5 mL Intramuscular Once, 171, cm, 05/28/20 16:01:00 EDT, Height, 59.5, kg,12/29/19 15:28:00 EDT, Dry Weight Start Date: 05/30/20 Status: Ordered polyethylene glycol 3350 oral powder for reconstitution = 17 Gm, By Mouth, 2 times a day, PRN Constipation, dissolve in water before taking, # 527 Gm, 3 Refills, Maintenance, 11/28/19 9:42:00 EDT, REC Powder, [place], [place] -, 17 Gm By Mouth 2 times a day,x30 days,PRN:Constipation,Instr:... Start Date: 11/28/19 Stop Date: 03/27/20 Status: Ordered SEROquel 25 mg oral tablet 25 mg, 1, tablet, By Mouth, Daily at bedtime, # 30 tablet, Refills 2, Tot. Refills 2, Maintenance, 06/14/20 20:44:00 EDT, Route to Pharmacy Electronically, [facility]., 171, cm, 05/28/20 16:01:00 EDT, Height, 59.5, kg, 12/29/19 15:28:00... Start Date: 06/14/20 Stop Date: 09/12/20 Status: Ordered sildenafil 100 mg oral tablet 1 tablet = 100 mg, By Mouth, Daily, 1 hour before sexual activity, # 10 tablet, 5 Refills, Maintenance, 09/04/20 14:26:00 EST, Tablet, [place], [place] - [id number], Partial fill upon patient request if the prescription is for a sched... Start Date: 09/04/20 Status: Ordered sulfamethoxazole-trimethoprim 800 mg-160 mg oral tablet 3 tablet, By Mouth, 3 times a day, for 21 days, # 189 tablet, 0 Refills, Acute 12/29/20 19:10:00 EDT, 12/08/20 19:10:00 EDT, Tablet, [facility] - [place], [place] - [id number], Partial fill upon patient request if the prescription is for a schedul... 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 Sex
--- OUTSIDE RECORDS SUMMARY | 2023-07-12 20:09 | XMS_ITS | Continuity of Care Document ---
Author Name Unknown Organization [facility] Address [address] [place] [address]- Care Team Providers Care Gift Consultant Name Role Phone Conner QUEEN, Namrata Agarwal Primary Care Physician [phone] [place] [facility] [place](s): 10/27/22 - 12/26/22 [facility] [address] [place] [address]- Attending Physician: Isidoro Neely MD Admitting Physician: [...] 8:46:00 EST, Powder, Route to Pharmacy Electronically, [id number], [facility] - [place]... Start Date: 07/20/22 Stop Date: 07/15/23 Status: Ordered amLODIPine 10 mg oral tablet 10 mg, 1, tablet, By Mouth, Daily, # 30 tablet, Refills 11, Tot. Refills 11, Maintenance, 07/20/22 8:43:00 EST, Route to Pharmacy Electronically, [facility] [id number], 173, cm, 05/10/22 20:46:00 EDT, Height, 95.5, kg, 2... Start Date: 07/20/22 Status: Ordered aspirin 81 mg oral tablet, chewable 81 mg, 1, tablet, By Mouth, Daily, # 30 tablet, Refills 11, Tot. Refills 11, Maintenance, 07/20/22 8:43:00 EST, Route to Pharmacy Electronically, [facility] [id number], Partial fill upon patient request if the prescription is... Start Date: 07/20/22 Stop Date: 11/12/23 Status: Ordered atorvastatin 80 mg oral tablet 1 tablet = 80 mg, By Mouth, Daily, # 30 tablet, 11 Refills, Maintenance, 07/20/22 8:43:00 EST, Tablet, [facility] [id number], Partial fill upon patient request if the prescription is for a schedule II opioid drug., 173, cm, 09... Start Date: 07/20/22 Status: Ordered Biktarvy oral tablet 1 tablet, By Mouth, Daily, must get appt and labs for refills, # 30 tablet, 0 Refills, Maintenance,12/16/22 19:18:00 EDT, [facility] [id number], 30, 1 tablet By Mouth Daily,Instr:must get [...] 12/24/22 19:14:00 EDT, Route to Pharmacy Electronically, [facility]... Start Date: 4/20/23 Status: Ordered Crutches See Instructions, # 1 [...] 1 Refills, Soft Stop, 03/05/22 10:37:00 EDT, [facility] - [place], [place] - [id number], Partial fill upon patient request if the prescriptio... Start Date: 03/05/22 Status: Ordered fluticasone-salmeterol 250 mcg-50 mcg inhalation powder 1, puffs, Inhalation, 2 times a day, patient needs labs and appt before more refills, # 60 each, Refills 0, Tot. Refills 0, Maintenance, 12/16/22 19:27:00 EDT, Powder, Route to Pharmacy Electronically, [id number], [facility]... Start Date: 12/16/22 Status: Ordered [...] Gm, 11 Refills, Maintenance, 04/20/22 9:23:00 EDT, [facility] [id number], 1 application Topically Daily, 173, cm, 12/05/21 17:38:00 EDT,Height, 127, kg, 12/05/21 17:38:00 EDT, Dry Weight Start Date: 04/20/22 Status: Ordered Lidoderm 5% film 1 patch, Topically, Daily, # 30 patch, 11 Refills, Maintenance, 03/19/22 21:12:00 EDT, [facility] [id number], Partial fill upon patient request if the [...] 11 Refills, Maintenance, 07/20/22 8:43:00 EST, Tablet, [facility] [id number], 1 tablet By Mouth Daily, 173, cm, 05/10/22 20:46:00 EDT,Height, 95.5, kg, 05/10/22 20:46:00 EDT, Dry Weight Start Date: 07/20/22 Status: Ordered Narcan 4 mg/0.1 mL nasal spray See Instructions, 4 mg Once may repeat every 2 to 3 minutes until patient responds, # 2 each, 3 Refills, Soft Stop, 03/05/22 10:07:00 EDT, [facility] [id number], 173, cm, 12/05/21 17:38:00 EDT, Height, 127, [...] Refills, Soft Stop, 12/24/22 11:37:00 EDT, Lotion, [facility] [id number], Partial fill upon pa... Start Date: 12/24/22 Status: Ordered polyethylene glycol 3350 oral powder for reconstitution = 17 Gm, By Mouth, 2 times a day, PRN Constipation, dissolve in water before taking, # 527 Gm, 3 Refills, Maintenance, 12/02/21 16:55:00 EDT, REC Powder, [facility] [id number], 17 Gm By Mouth 2 times a day,x30 days,PRN:Constip... Start Date: 12/02/21 Stop Date: 04/01/22 Status: Ordered rOPINIRole 0.5 mg oral tablet 1 tablet = 0.5 mg, By Mouth, Daily at bedtime, 1 to 3 hours before bedtime, # 30 tablet, 11 Refills, Maintenance, 07/20/22 8:43:00 EST, Tablet, [facility] [id number], Partialfill upon patient request if the prescription is fo... Start Date: 07/20/22 Status: Ordered Senna 8.6 mg oral tablet 1 or 2 tablets, By Mouth, Daily at bedtime, PRN, Must make appt and get labs for refills, # 180 tablet, Refills 0, Tot. Refills 0, Maintenance, Constipation, 12/16/22 19:14:00 EDT, Route to Pharmacy Electronically, [place], [place] -... Start Date: 12/16/22 Status: Ordered sildenafil 100 mg oral tablet 1 tablet = 100 mg, By Mouth, Daily, 1 hour before sexual activity, # 20 tablet, 11 Refills, Maintenance, 04/20/22 9:24:00 EDT, Tablet, [facility], [facility] [id number], disreguard last script for 0.5 tab, 173, cm, 12/05/21 17:38:00 EDT,... Start Date: 04/20/22 Status: Ordered varenicline 1mg tablet 1 tablet = 1 mg, By Mouth, Daily, 0.5 tab daily x 3 days then 0.5 tab BID x 3 days then 1 tab BID, # 30 tablet, 4 Refills, Maintenance, 09/04/22 15:20:00 EST, Tablet, [facility] [id number], Partial fill upon patient request if... Start Date: 09/04/22 Status: Ordered Ventolin HFA 108 mcg/inh inhalation aerosol with adapter 2 puffs, Inhalation, 4 times a day, PRN for wheezing, must get appt and labs for refills, # 3 each,0 Refills, Maintenance, 12/16/22 19:15:00 EDT, Aerosol, [facility] [id number], Partial fill upon patient request if the prescr... Start Date: 12/16/22 Status: Ordered Vitamin D3 1000 intl units oral capsule 1 capsule = 25 mcg, By Mouth, Daily, # 30 capsule, 11 Refills, Maintenance, 06/04/22 17:32:00 EDT, Capsule, [facility], [place] - [id number], D/c vitamin high dosed, 173, cm, 05/10/22 [...] - 01/2019 Confirmed Active [facility] - [facility] Confirmed Active Diastolic dysfunction 1 Confirmed [...] Team Personnel Name: Jadiel Watson RN Position: [facility] ED RN W/OE and Tasks Member Role: Primary Care Nurse Name: Dede Mccloud RN Position: [facility] RN Member Role: Primary Care Nurse Name: Judy Gonzales RN Position: [facility] RN Member Role: Primary Care Nurse Name: Enma Manriquez RN Position: [facility] RN Member Role: Primary Care Nurse Name: Zuhair Lopez RN Position: [facility] RN Member Role: Primary Care Nurse Name: Cathryn Allen RN Position: [facility] RN Member Role: Primary Care Nurse Name: Edie Bob RN Position: [facility] RN Member Role: Primary Care Nurse Name: Lisbet Gardiner RN Position: [facility] RN Member Role: Primary Care Nurse Name: Namrata Prieto MD Position: [facility] Primary Care Physician Member Role: PCP Address: Address: [address] [place] [address], -[facility] [address] Name: Carolina Valero RN Position: [facility] RN Member Role: Primary Care Nurse Name: Nishi San RN Position: [facility] RN Member Role: Primary Care Nurse Name: Micky Boyd RN Position: [facility] RN Member Role: Primary Care Nurse Name: Lauri oCmbs NP Position: Reference Physician Member Role: Primary Care Nurse Address: Address: [address] Clinical & [place] [address]- [place] Care Team Related Persons Name: JASWINDER LUIS Address: [place] [address] Name: BROOKE OWEN Address: home [address] [address] Name: KARYN OWEN Address: home [address] [place] [address] Name: DOMINGO LEONE Address: home [address] [place] [address]
--- OUTSIDE RECORDS SUMMARY | 2023-07-12 20:09 | XMS_ITS | Continuity of Care Document ---
Author Name Unknown Organization [facility] Address [address] [place] [address]- Care Team Providers Care Haunted History Tour Guide Name Role Phone Calvin WELLS, Giovanna Bernard Primary Care Physician [place] [facility] [id number] Date(s): 02/01/20 - 03/14/20 [facility] [address] [place] [address]- Attending Physician: Namrata Prieto MD Admitting Physician: [...] 11/28/19 9:43:00 EDT, Route to Pharmacy Electronically, [place], [place] -, 172, cm, 09/26/19 8:57:00 EST, Height, 66.3, kg, 09/11/19 13:26:00 EST,... Start Date: 11/28/19 Stop Date: 05/26/20 Status: Ordered atovaquone 750 mg/5 mL oral suspension 10 mL = 1,500 mg, By Mouth, Daily, for 60 days, # 600 mL, 5 Refills, Acute 11/22/20 9:44:00 EDT, 11/28/19 9:44:00 EDT, Suspension, [place], [place] -, Pls cancel bactrim prescription. Atovaquone to replace bactrim, 172, cm, 09/26/19 8... Start Date: 11/28/19 Stop Date: 11/22/20 Status: Ordered Biktarvy oral tablet 1 tablet, By Mouth, Daily, for 30 days, # 30 tablet, 5 Refills, Hard Stop 08/25/20 12:37:00 EST, 02/27/20 12:37:00 EDT, Tablet, [place], [place] -, 1 tablet By Mouth Daily,x30 days, 171, cm, 02/22/20 10:16:00 EDT, Height, 59.5, kg, 04... Start Date: 02/27/20 Stop Date: 08/25/20 Status: Ordered Biktarvy oral tablet 1 tablet, By Mouth, Daily, # 30 tablet, 5 Refills, Maintenance, 08/18/20 5:43:00 EST, Tablet, [place], [place] -, 1 tablet By Mouth Daily,x30 [...] 12/29/19 16:19:00 EDT, Route to Pharmacy Electronically, [place], [place] -, 171, cm, 12/29/19 15:28:00 EDT, Hei... Start Date: 12/29/19 Status: Ordered docusate sodium 100 mg oral capsule 100 mg, 1, capsule, By Mouth, 2 times a day, PRN, # 60 capsule, Refills 0, Tot. Refills 0, Maintenance, for constipation, 09/26/19 12:05:00 EST, Route to Pharmacy Electronically, [place], [place] -, 172, cm, 09/26/19 8:57:00 EST, Heig... Start Date: 09/26/19 Status: Ordered gabapentin 100 mg oral capsule 200 mg, 2, capsule, By Mouth, 3 times a day, # 180 capsule, Refills 3, Tot. Refills 3, Maintenance,02/27/20 12:37:00 EDT, Route to Pharmacy Electronically, [place], [place] -, 171, cm, 02/22/20 10:16:00 EDT, Height, 59.5, kg, 2... Start Date: 02/27/20 Stop Date: 06/26/20 Status: Ordered hydrocortisone 0.5% topical cream See Instructions, apply in a thin film to the hands and rub in gently 3 times a day for 5 days, # 28 Gm, 1 Refills, Maintenance, 02/27/20 12:35:00 EDT, [place], [place] -, apply in athin film to the hands and rub in gently 3 times a... Start Date: 02/27/20 Status: Ordered ketoconazole 2% topical shampoo 1 application, Topically, Daily, try daily for 5 days as a shampoo, # 120 mL, 3 Refills, Soft Stop,12/21/19 11:58:00 EDT, Shampoo, [facility], 1 application Topically Daily,Instr:try daily for 5 days as a shampoo, 172, cm, 01... Start Date: 12/21/19 Status: Ordered lithium 300 mg oral capsule 2 capsule = 600 mg, By Mouth, Daily at bedtime, # 60 capsule, 2 Refills, Maintenance, 02/27/20 12:36:00 EDT, [place], [place] -, 171, cm, 02/22/20 10:16:00 EDT, Height, 59.5, kg, 12/29/19 15:28:00 EDT, Dry Weight Start Date: 02/27/20 Stop Date: 05/27/20 Status: Ordered LORazepam 0.5 mg oral tablet 1 tablet = 0.5 mg, By Mouth, 2 times a day, PRN Anxiety, # 60 tablet, 2 Refills, Maintenance, 02/27/20 12:37:00 EDT, Tablet, [place], [place] -, 171, cm, 02/22/20 10:16:00 EDT, [...] tablet, 5 Refills, Maintenance, 11/28/19 9:41:00EDT, Tablet, [place], [place] -, 172, cm, 09/26/19 8:57:00 EST, Height, 66.3, kg, 09/11/19 13:26:00 EST, Dry Weight Start Date: 11/28/19 Stop Date: 05/26/20 Status: Ordered multivitamin with minerals Calcium and Magnesium oral tablet 1 tablet, By Mouth, Daily, # 30 tablet, 5 Refills, Maintenance, 09/26/19 12:05:00 EST, Tablet, [place], [place] -, 1 tablet By Mouth Daily,x30 days, 172, cm, 09/26/19 8:57:00 EST, Height, 66.3, kg, 09/11/19 13:26:00 EST, Dry Weight Start Date: 09/26/19 Stop Date: 03/24/20 Status: Ordered Narcan 4 mg/0.1 mL nasal spray See Instructions, 4 mg Once may repeat every 2 to 3 minutes until patient responds, # 2 each, 1 Refills, Soft Stop, 08/24/19 9:41:00 EST, [place], [place] -, MAMADOU García to parts picker for Pt., 170, cm, 08/24/19 9:21:00 [...] Refills, Maintenance, 11/28/19 9:42:00 EDT, REC Powder, [facility] - [place], [place] -, 17 Gm By Mouth 2 times a day,x30 days,PRN:Constipation,Instr:... Start Date: 11/28/19 Stop Date: 03/27/20 Status: Ordered Problem List Condition Effective Dates [...]
--- OUTSIDE RECORDS SUMMARY | 2023-07-12 20:09 | XMS_ITS | Continuity of Care Document ---
Author Name Unknown Organization [facility] Adult Medicine Address [address] [place] [address]- Care Team Providers Care Bottom Wheeler Name Role Phone Conner QUEEN, Namrata Agarwal Primary Care Physician [facility] Date[facility]s): 09/03/20 - 10/03/20 [facility] Adult [facility] [address], [place] [address] Allergies, Adverse Reactions, Alerts Substance Reaction [...] 05/28/20 16:31:00 EDT, Route to Pharmacy Electronically, [place], [place] - [id number], 171, cm, 05/28/20 16:01:00 EDT, Height, 59.5, kg, 12/29/19... Start Date: 05/28/20 Status: Ordered atovaquone 750 mg/5 mL oral suspension 10 mL = 1,500 mg, By Mouth, Daily, for 60 days, # 600 mL, 11 Refills, Acute 05/18/22 16:35:00 EDT, 05/28/20 16:35:00 EDT, Suspension, [place], [place] - [id number], Pls cancel bactrim prescription. Atovaquone to replace bactrim, 171,... Start Date: 05/28/20 Stop Date: 05/18/22 Status: Ordered azithromycin 500 mg oral tablet 2 tablet = 1,000 mg, By Mouth, Once, take both tablets at once, # 2 tablet, 0 Refills, Soft Stop, 06/27/20 17:56:00 EDT, Tablet, [facility] [id number], 171, cm, 05/28/20 16:01:00 EDT, Height, 59.5, kg, 12/29/19 15:28:00 EDT, D... Start Date: 06/27/20 Status: Ordered Biktarvy oral tablet 1 tablet, By Mouth, Daily, for 30 days, # 30 tablet, 11 Refills, Hard Stop 05/23/21 16:35:00 EDT, 05/28/20 16:35:00 EDT, Tablet, [facility] [id number], 1 tablet By Mouth Daily,x30 days, 171, cm, 05/28/20 16:01:00 EDT, Height,... Start Date: 05/28/20 Stop Date: 05/23/21 Status: Ordered Colace sodium 100 mg oral capsule 100 mg, 1, capsule, By Mouth, 2 times a day, PRN, # 60 capsule, Refills 11, Tot. Refills 11, Maintenance, for constipation, 05/28/20 16:34:00 EDT, Route to Pharmacy Electronically, [facility] [id number], 171, cm, 05/28/20 16:0... Start Date: 05/28/20 [...] EDT, Route to Pharmacy Electronically, [facility] [id number], 171, cm, 05/28/20 16:01:00 EDT, Height, 59.5... Start Date: 06/28/20 Status: Ordered hydrocortisone 0.5% topical cream See Instructions, use sparingly on face, use on all other affected areas, # 28 Gm, 11 Refills, Maintenance, 05/28/20 16:37:00 EDT, [facility] [id number], use sparingly on face, use on all other affected areas, 171, cm, ... Start Date: 05/28/20 Status: Ordered influenza virus vaccine, inactivated adjuvanted preservative-free quadrivalent intramuscular susp See Instructions, none, # 1 each, 0 Refills, Maintenance, 05/30/20 9:27:00 EDT, [facility], none, 171, cm, 05/28/20 16:01:00 EDT, Height, 59.5, kg, 12/29/19 15:28:00 EDT, Dry Weight Start Date: 05/30/20 Status: Ordered ketoconazole 2% topical cream 1 application, Topically, 2 times a day, for 28 days, use on the face, # 60 Gm, 11 Refills, Acute 04/29/21 16:40:00 EDT, 05/28/20 16:40:00 EDT, Cream, [facility] [id number], 1 application Topically 2 times a day,x28 days,Instr... Start Date: 05/28/20 Stop Date: 04/29/21 Status: Ordered ketoconazole 2% topical shampoo 1 application, Topically, Daily, try daily for 5 days as a shampoo, # 120 mL, 11 Refills, Soft Stop, 05/28/20 16:37:00 EDT, Shampoo, [facility] [id number], 1 application Topically Daily,Instr:try daily for 5 days as a shampoo,... Start Date: 05/28/20 Status: Ordered lithium 300 mg oral capsule 2 capsule = 600 mg, By Mouth, 2 times a day, # 120 capsule, 2 Refills, Maintenance, 06/28/20 12:56:00 EDT, [facility], [facility] [id number], Increase in dose per Psychiatry, 171, cm, 05/28/20 16:01:00 EDT, Height, 59.5, kg, 12/29/19 15:2... Start Date: 06/28/20 Status: Ordered LORazepam 0.5 mg oral tablet 1 tablet = 0.5 mg, By Mouth, 2 times a day, PRN Anxiety, # 60 tablet, 2 Refills, Maintenance, 06/28/20 12:56:00 EDT, Tablet, [facility], [facility] [id number], 171, cm, 05/28/20 16:01:00EDT, Height, 59.5, kg, 12/29/19 15:28:00 EDT, Dry W... Start Date: 06/28/20 Status: Ordered Mavyret 100 mg-40 mg oral tablet 3 tablet, By Mouth, Daily, with food, # 252 tablet, 0 Refills, Maintenance, 07/08/20 15:34:00 EST, Tablet, [facility], 3 tablet By Mouth [...] 5 Refills, Maintenance, 05/28/20 16:35:00 EDT, Tablet, [facility], [facility] [id number], 171, cm, 05/28/20 16:01:00 EDT, Height, 59.5, kg, 12/29/19 15:28:00 EDT, Dry Weight Start Date: 05/28/20 Stop Date: 11/24/20 Status: Ordered multivitamin with minerals Calcium and Magnesium oral tablet 1 tablet, By Mouth, Daily, # 30 tablet, 11 Refills, Maintenance, 05/28/20 16:35:00 EDT, Tablet, [facility] [id number], 1 tablet By Mouth Daily, 171, cm, 05/28/20 16:01:00 EDT, Height, 59.5, kg, 12/29/19 15:28:00 EDT, Dry Weight Start Date: 05/28/20 Stop Date: 05/23/21 Status: Ordered Narcan 4 mg/0.1 mL nasal spray See Instructions, 4 mg Once may repeat every 2 to 3 minutes until patient responds, # 2 each, 1 Refills, Soft Stop, 08/24/19 9:41:00 EST, [place], [place] -, MAMADOU García to chicken picker for Pt., 170, cm, 08/24/19 9:21:00 EST, Height, 66.36,... Start Date: 08/24/19 Status: Ordered Nicotine 2 mg gum 1 each = 2 mg, Chew, Every 2 hours, PRN as needed for smoking cessation, # 160 each, 3 Refills, Maintenance, 05/28/20 16:51:00 EDT, Gum, [place], [place] - [id number], 171, cm, 05/28/20 16:01:00 EDT, Height, 59.5, [...] Refills, Soft Stop, 05/30/20 9:25:00 EDT, Suspension, [facility], 0.5 mL Intramuscular Once, 171, cm, 05/28/20 16:01:00 EDT, Height, 59.5, kg,12/29/19 15:28:00 EDT, Dry Weight Start Date: 05/30/20 Status: Ordered polyethylene glycol 3350 oral powder for reconstitution = 17 Gm, By Mouth, 2 times a day, PRN Constipation, dissolve in water before taking, # 527 Gm, 3 Refills, Maintenance, 11/28/19 9:42:00 EDT, REC Powder, [place], [place] -, 17 Gm By Mouth 2 times a day,x30 days,PRN:Constipation,Instr:... Start Date: 11/28/19 Stop Date: 03/27/20 Status: Ordered SEROquel 25 mg oral tablet 25 mg, 1, tablet, By Mouth, Daily at bedtime, # 30 tablet, Refills 2, Tot. Refills 2, Maintenance, 06/14/20 20:44:00 EDT, Route to Pharmacy Electronically, [facility], 171, cm, 05/28/20 16:01:00 EDT, Height, 59.5, kg, 12/29/19 15:28:00... Start Date: 06/14/20 Stop Date: 09/12/20 Status: Ordered sildenafil 100 mg oral tablet 1 tablet = 100 mg, By Mouth, Daily, 1 hour before sexual activity, # 10 tablet, 5 Refills, Maintenance, 09/04/20 14:26:00 EST, Tablet, [place], [place] - [id number], Partial fill upon patient request if the prescription is for a sched... 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 Sex
--- OUTSIDE RECORDS SUMMARY | 2023-07-12 20:09 | XMS_ITS | Continuity of Care Document ---
Author Name Unknown Organization [facility] Address [address] [place] [address]- Care Team Providers Care District Loss Prevention Manager Name Role Phone Conner QUEEN, Namrata Agarwal Primary Care Physician [phone] [facility]counter [facility] Date(s): 07/17/20 - 08/16/20 [facility] [address] [place] [id number] Allergies, Adverse Reactions, Alerts Substance [...] 05/28/20 16:31:00 EDT, Route to Pharmacy Electronically, [facility] [id number], 171, cm, 05/28/20 16:01:00 EDT, Height, 59.5, kg, 12/29/19... Start Date: 05/28/20 Status: Ordered atovaquone 750 mg/5 mL oral suspension 10 mL = 1,500 mg, By Mouth, Daily, for 60 days, # 600 mL, 11 Refills, Acute 05/18/22 16:35:00 EDT, 05/28/20 16:35:00 EDT, Suspension, [facility] [id number], Pls cancel bactrim prescription. Atovaquone to replace bactrim, 171,... Start Date: 05/28/20 Stop Date: 05/18/22 Status: Ordered azithromycin 500 mg oral tablet 2 tablet = 1,000 mg, By Mouth, Once, take both tablets at once, # 2 tablet, 0 Refills, Soft Stop, 06/27/20 17:56:00 EDT, Tablet, [facility], [facility] [id number], 171, cm, 05/28/20 16:01:00 EDT, Height, 59.5, kg, 12/29/19 15:28:00 EDT, D... Start Date: 06/27/20 Status: Ordered Biktarvy oral tablet 1 tablet, By Mouth, Daily, for 30 days, # 30 tablet, 11 Refills, Hard Stop 05/23/21 16:35:00 EDT, 05/28/20 16:35:00 EDT, Tablet, [facility], [facility] [id number], 1 tablet By Mouth Daily,x30 days, 171, cm, 05/28/20 16:01:00 EDT, Height,... Start Date: 05/28/20 Stop Date: 05/23/21 Status: Ordered Colace sodium 100 mg oral capsule 100 mg, 1, capsule, By Mouth, 2 times a day, PRN, # 60 capsule, Refills 11, Tot. Refills 11, Maintenance, for constipation, 05/28/20 16:34:00 EDT, Route to Pharmacy Electronically, [facility] [id number], 171, cm, 05/28/20 16:0... Start Date: 05/28/20 Status: Ordered Compression Stockings See Instructions, # 2 each, Refills 0, Tot. Refills 0, Maintenance, surgical, calf length 30-40 mm Hg, chronic venous stasis I87.8, wear during the day, off at night, 08/15/20 13:38:00 EST, Supply Start Date: 08/15/20 Status: Ordered gabapentin 100 mg oral capsule 200 mg, 2, capsule, By Mouth, 3 times a day, # 180 capsule, Refills 11, Tot. Refills 11, Maintenance, 06/28/20 13:01:00 EDT, Route to Pharmacy Electronically, [facility], [facility] [id number], 171, cm, 05/28/20 16:01:00 EDT, Height, 59.5... Start Date: 06/28/20 Status: Ordered hydrocortisone 0.5% topical cream See Instructions, use sparingly on face, use on all other affected areas, # 28 Gm, 11 Refills, Maintenance, 05/28/20 16:37:00 EDT, [facility] [id number], use sparingly on face, use on all other affected areas, 171, cm, ... Start Date: 05/28/20 Status: Ordered influenza virus vaccine, inactivated adjuvanted preservative-free quadrivalent intramuscular susp See Instructions, none, # 1 each, 0 Refills, Maintenance, 05/30/20 9:27:00 EDT, [facility], none, 171, cm, 05/28/20 16:01:00 EDT, Height, 59.5, kg, 12/29/19 15:28:00 EDT, Dry Weight Start Date: 05/30/20 Status: Ordered ketoconazole 2% topical cream 1 application, Topically, 2 times a day, for 28 days, use on the face, # 60 Gm, 11 Refills, Acute 04/29/21 16:40:00 EDT, 05/28/20 16:40:00 EDT, Cream, [facility] [id number], 1 application Topically 2 times a day,x28 days,Instr... Start Date: 05/28/20 Stop Date: 04/29/21 Status: Ordered ketoconazole 2% topical shampoo 1 application, Topically, Daily, try daily for 5 days as a shampoo, # 120 mL, 11 Refills, Soft Stop, 05/28/20 16:37:00 EDT, Shampoo, [facility] [id number], 1 application Topically Daily,Instr:try daily for 5 days as a shampoo,... Start Date: 05/28/20 Status: Ordered lithium 300 mg oral capsule 2 capsule = 600 mg, By Mouth, 2 times a day, # 120 capsule, 2 Refills, Maintenance, 06/28/20 12:56:00 EDT, [facility] [id number], Increase in dose per Psychiatry, 171, cm, 05/28/20 16:01:00 EDT, Height, 59.5, kg, 12/29/19 15:2... Start Date: 06/28/20 Status: Ordered LORazepam 0.5 mg oral tablet 1 tablet = 0.5 mg, By Mouth, 2 times a day, PRN Anxiety, # 60 tablet, 2 Refills, Maintenance, 06/28/20 12:56:00 EDT, Tablet, [facility], [facility] [id number], 171, cm, 05/28/20 16:01:00EDT, Height, 59.5, kg, 12/29/19 15:28:00 EDT, Dry W... Start Date: 06/28/20 Status: Ordered Mavyret 100 mg-40 mg oral tablet 3 tablet, By Mouth, Daily, with food, # 252 tablet, 0 Refills, Maintenance, 07/08/20 15:34:00 EST, Tablet, [facility], 3 tablet By Mouth Daily,x12 [...] 5 Refills, Maintenance, 05/28/20 16:35:00 EDT, Tablet, [facility], [place] - [id number], 171, cm, 05/28/20 16:01:00 EDT, Height, 59.5, kg, 12/29/19 15:28:00 EDT, Dry Weight Start Date: 05/28/20 Stop Date: 11/24/20 Status: Ordered multivitamin with minerals Calcium and Magnesium oral tablet 1 tablet, By Mouth, Daily, # 30 tablet, 11 Refills, Maintenance, 05/28/20 16:35:00 EDT, Tablet, [place], [place] - [id number], 1 tablet By Mouth Daily, 171, cm, 05/28/20 16:01:00 EDT, Height, 59.5, kg, 12/29/19 15:28:00 EDT, Dry Weight Start Date: 05/28/20 Stop Date: 05/23/21 Status: Ordered Narcan 4 mg/0.1 mL nasal spray See Instructions, 4 mg Once may repeat every 2 to 3 minutes until patient responds, # 2 each, 1 Refills, Soft Stop, 08/24/19 9:41:00 EST, [place], [place] -, MAMADOU García to steel pickler for Pt., 170, cm, 08/24/19 9:21:00 EST, Height, 66.36,... Start Date: 08/24/19 Status: Ordered Nicotine 2 mg gum 1 each = 2 mg, Chew, Every 2 hours, PRN as needed for smoking cessation, # 160 each, 3 Refills, Maintenance, 05/28/20 16:51:00 EDT, Gum, [place], [place] - [id number], 171, cm, 05/28/20 16:01:00 EDT, Height, 59.5, [...] Refills, Soft Stop, 05/30/20 9:25:00 EDT, Suspension, [facility], 0.5 mL Intramuscular Once, 171, cm, 05/28/20 16:01:00 EDT, Height, 59.5, kg,12/29/19 15:28:00 EDT, Dry Weight Start Date: 05/30/20 Status: Ordered polyethylene glycol 3350 oral powder for reconstitution = 17 Gm, By Mouth, 2 times a day, PRN Constipation, dissolve in water before taking, # 527 Gm, 3 Refills, Maintenance, 11/28/19 9:42:00 EDT, REC Powder, [place], [place] -, 17 Gm By Mouth 2 times a day,x30 days,PRN:Constipation,Instr:... Start Date: 11/28/19 Stop Date: 03/27/20 Status: Ordered SEROquel 25 mg oral tablet 25 mg, 1, tablet, By Mouth, Daily at bedtime, # 30 tablet, Refills 2, Tot. Refills 2, Maintenance, 06/14/20 20:44:00 EDT, Route to Pharmacy Electronically, [facility], 171, cm, 05/28/20 16:01:00 EDT, Height, 59.5, kg, 12/29/19 15:28:00... Start Date: 06/14/20 Stop Date: 09/12/20 Status: Ordered Viagra 50 mg oral tablet 1 tablet = 50 mg, By Mouth, Daily, PRN sexual activity, 1 hour before sexual activity, # 10 tablet,11 Refills, Maintenance, 05/29/20 20:14:00 EDT, Tablet, [place], [place] - [id number], 171, cm, 05/28/20 16:01:00 EDT, Height, 59.5, k... 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 Sex
--- OUTSIDE RECORDS SUMMARY | 2023-07-12 20:09 | XMS_ITS | Continuity of Care Document ---
Author Name Unknown Organization [facility] Address [address] [place] [id number]- Care Team Providers Care Shift Superintendent Name Role Phone Conner QUEEN, Namrata Agarwal Primary Care Physician Encounter [facility] Date(s): 09/04/22 - 10/04/22 [facility] [address] [place] [phone]- Allergies, Adverse Reactions, Alerts Substance Reaction Severity [...] 8:46:00 EST, Powder, Route to Pharmacy Electronically, [id number], [facility] - Spr... Start Date: 07/20/22 Stop Date: 07/15/23 Status: Ordered Albuterol (Eqv-ProAir HFA) 90 mcg/inh inhalation aerosol 2 puffs, Inhalation, Every 6 hours, # 8.5 Gm, 11 Refills, 08/25/21 12:34:00 EST, [facility] [id number], 25, 2 puffs Inhalation Every 6 hours, 173, cm, 08/25/21 12:31:00 EST, Height, 84, kg, 04/19/21 2:36:00 EDT, Dry Weight Start Date: 08/25/21 Status: Ordered amLODIPine 10 mg oral tablet 10 mg, 1, tablet, By Mouth, Daily, # 30 tablet, Refills 11, Tot. Refills 11, Maintenance, 07/20/22 8:43:00 EST, Route to Pharmacy Electronically, [facility] [id number], 173, cm, 05/10/22 20:46:00 EDT, Height, 95.5, kg, ... Start Date: 07/20/22 Status: Ordered Asperflex 4% topical film 1 patch, Topically, Daily, for 30 days, # 30 patch, 11 Refills, Acute 03/12/23 14:41:00 EDT, 03/17/22 14:41:00 EDT, [facility] [id number], Partial fill upon patient request if the prescription is for a schedule II opioid drug.... Start Date: 03/17/22 Stop Date: 03/12/23 Status: Ordered aspirin 81 mg oral tablet, chewable 81 mg, 1, tablet, By Mouth, Daily, # 30 tablet, Refills 11, Tot. Refills 11, Maintenance, 07/20/22 8:43:00 EST, Route to Pharmacy Electronically, [facility] [id number], Partial fill upon patient request if the prescription is... Start Date: 07/20/22 Stop Date: 11/12/23 Status: Ordered atorvastatin 80 mg oral tablet 1 tablet = 80 mg, By Mouth, Daily, # 30 tablet, 11 Refills, Maintenance, 07/20/22 8:43:00 EST, Tablet, [facility] [id number], Partial fill upon patient request if the prescription is for a schedule II opioid drug., 173, cm, 09... Start Date: 07/20/22 Status: Ordered Biktarvy oral tablet 1 tablet, By Mouth, Daily, # 30 tablet, 5 Refills, Maintenance, 07/20/22 8:36:00 EST, [facility], [facility] [id number], 30, 1 tablet By Mouth Daily, 173, [...] 1 Refills, Soft Stop, 03/05/22 10:37:00 EDT, [facility] [id number], Partial fill upon patient request if the prescriptio... Start Date: 03/05/22 Status: Ordered home COVID tests home COVID tests, See Instructions, # 3 each, Refills 11, Tot. Refills 11, Maintenance, home COVID tests, 09/25/22 16:51:00 EST, Supply, 173, cm, 08/12/22 0:40:00 EST, Height, 93.18, kg, 08/12/22 0:40:00 EST, Dry Weight Start Date: 09/25/22 Status: Ordered hydrocortisone 0.5% topical cream See Instructions, use sparingly on face, use on all other affected areas, # 28 Gm, 11 Refills, Maintenance, 03/07/21 6:50:00 EDT, [facility] [id number], use sparingly on face, use on all other affected areas, 174, cm, 01/13/21... Start Date: 03/07/21 Status: Ordered Incruse Ellipta 62.5 mcg/inh inhalation powder See Instructions, INHALE 1 PUFF BY MOUTH INTO THE lungs EVERY 24 HOURS. doses should be taken AT least 24 HOURS APART, # 30 Unknown, 5 Refills, Maintenance, 09/02/22 20:23:00 EST, [facility], 173, cm, 08/12/22 0:40:00 EST, Height, 93.18, kg, 12/0... Start Date: 09/02/22 Status: Ordered ketoconazole 2% topical cream 1 application, Topically, Daily, # 30 Gm, 11 Refills, Maintenance, 04/20/22 9:23:00 EDT, [facility], [facility] [id number], 1 application Topically Daily, 173, cm, 12/05/21 17:38:00 EDT,Height, 127, kg, 12/05/21 17:38:00 EDT, Dry Weight Start Date: 04/20/22 Status: Ordered Lidoderm 5% film 1 patch, Topically, Daily, # 30 patch, 11 Refills, Maintenance, 03/19/22 21:12:00 EDT, [facility], [place] - [id number], Partial fill upon patient request if the [...] 11 Refills, Maintenance, 07/20/22 8:43:00 EST, Tablet, [facility], [place] - [id number], 1 tablet By Mouth Daily, 173, cm, 05/10/22 20:46:00 EDT,Height, 95.5, kg, 05/10/22 20:46:00 EDT, Dry Weight Start Date: 07/20/22 Status: Ordered Narcan 4 mg/0.1 mL nasal spray See Instructions, 4 mg Once may repeat every 2 to 3 minutes until patient responds, # 2 each, 3 Refills, Soft Stop, 03/05/22 10:07:00 EDT, [facility] [id number], 173, cm, 12/05/21 17:38:00 EDT, Height, 127, kg, 12/05/21 17:38... Start Date: 03/05/22 Status: Ordered ondansetron 4 mg oral tablet, disintegrating 1 tablet = 4 mg, By Mouth, Every 8 hours, PRN as needed for nausea/vomiting, # 12 tablet, 11 Refills, Maintenance, 08/21/21 13:33:00 EST, DIS Tablet, [facility] [id number], Partial fill upon patient request if the [...] Refills, Maintenance, 12/02/21 16:55:00 EDT, REC Powder, [facility] [id number], 17 Gm By Mouth 2 times a day,x30 days,PRN:Constip... Start Date: 12/02/21 Stop Date: 04/01/22 Status: Ordered rOPINIRole 0.5 mg oral tablet 1 tablet = 0.5 mg, By Mouth, Daily at bedtime, 1 to 3 hours before bedtime, # 30 tablet, 11 Refills, Maintenance, 07/20/22 8:43:00 EST, Tablet, [facility] [id number], Partialfill upon patient request if the prescription is fo... Start Date: 07/20/22 Status: Ordered sildenafil 100 mg oral tablet 1 tablet = 100 mg, By Mouth, Daily, 1 hour before sexual activity, # 20 tablet, 11 Refills, Maintenance, 04/20/22 9:24:00 EDT, Tablet, [facility], [place] - [id number], disreguard last script for 0.5 tab, 173, cm, 12/05/21 17:38:00 EDT,... Start Date: 04/20/22 Status: Ordered varenicline 1mg tablet 1 tablet = 1 mg, By Mouth, Daily, 0.5 tab daily x 3 days then 0.5 tab BID x 3 days then 1 tab BID, # 30 tablet, 4 Refills, Maintenance, 09/04/22 15:20:00 EST, Tablet, [facility], [place] - [id number], Partial fill upon patient request if... Start Date: 09/04/22 Status: Ordered Ventolin HFA 108 mcg/inh inhalation aerosol with adapter 2 puffs, Inhalation, 4 times a day, PRN for wheezing, # 1 each, 11 Refills, Maintenance, 07/20/22 8:44:00 EST, Aerosol, [facility], [facility] [id number], Partial fill upon patient request if the [...] 11 Refills, Maintenance, 06/04/22 17:32:00 EDT, Capsule, [facility], [place] - [id number], D/c vitamin high dosed, 173, cm, 05/10/22 20:46:00 EDT, Height, 95.5, kg, 05/10/22 20:46:00 EDT... Start Date: 06/04/22 Status: Ordered Problem List Condition Confirmation Course Effective Dates Status [facility] atus Informant Latex allergy Confirmed Active Allergy to shellfish Confirmed Active Stroke Confirmed 09/2021 Active Chronic active hepatitis C - genotype 1a - steatohepatitis/spl enomegally Confirmed Active Constipation Confirmed Active Cryptococcal meningitis - 01/2019 Confirmed Active Depression - Olinda [facility] Confirmed Active Diastolic dysfunction 1 Confirmed [...] Team Personnel Name: Jadiel Watson RN Position: [facility] ED RN W/OE and Tasks Member Role: Primary Care Nurse Name: Dede Mccloud RN Position: [facility] RN Member Role: Primary Care Nurse Name: Judy Gonzales RN Position: [facility] RN Member Role: Primary Care Nurse Name: nEma Manriquez RN Position: [facility] RN Member Role: Primary Care Nurse Name: Zuhair Lopez RN Position: [facility] RN Member Role: Primary Care Nurse Name: Cathryn Allen RN Position: [facility] RN Member Role: Primary Care Nurse Name: Edie Bob RN Position: [facility] RN Member Role: Primary Care Nurse Name: Lisbet Gardiner RN Position: [facility] RN Member Role: Primary Care Nurse Name: Namrata Prieto MD Position: [facility] Primary Care Physician Member Role: PCP Address: Address: [address] [place] [address], -[facility] [place] [address]- Name: Carolina Valero RN Position: [facility] RN Member Role: Primary Care Nurse Name: Nishi San RN Position: [facility] RN Member Role: Primary Care Nurse Name: Micky Boyd RN Position: [facility] RN Member Role: Primary Care Nurse Name: Lauri Combs NP Position: Reference Physician Member Role: Primary Care Nurse Address: Address: [address] Clinical & [place] [address]- Care Team Related Persons Name: LUIS SAN Address: [place] [address] Name: BROOKE OWEN Address: home [address] [address] Name: KARYN OWEN Address: home [address] [place] [address] Name: DOMINGO LEONE Address: home [address] [place] [address]
--- OUTSIDE RECORDS SUMMARY | 2023-07-12 20:10 | XMS_ITS | Continuity of Care Document ---
Author Name Unknown Organization [facility] Address [address] [place] [address]- Care Team Providers Care Piano Mechanic Name Role Phone Conner QUEEN, Namrata Agarwal Primary Care Physician Encounter [facility] Date(s): 04/24/21 - 05/24/21 [facility] [address] [place] [id number] Attending Physician: AdmAngeles cervantes Admitting Physician: AdmtrAngeles Referring Physician: Admtr, [id number] [...] 03/07/21 6:50:00 EDT, Route to Pharmacy Electronically, [place], [place] - [id number], 174, cm, 01/13/21 8:20:00 EDT, Height, 93, kg, 01/08/21 18:... Start Date: 03/07/21 Status: Ordered atovaquone 750 mg/5 mL oral suspension 10 mL = 1,500 mg, By Mouth, Daily, for 60 days, # 600 mL, 11 Refills, Acute 02/25/23 6:50:00 EDT, 03/07/21 6:50:00 EDT, Suspension, [facility] [id number], Pls cancel bactrim prescription. Atovaquone to replace bactrim, 174, cm... Start Date: 03/07/21 Stop Date: 02/25/23 Status: Ordered Colace sodium 100 mg oral capsule 100 mg, 1, capsule, By Mouth, 2 times a day, PRN, # 60 capsule, Refills 11, Tot. Refills 11, Maintenance, for constipation, 05/28/20 16:34:00 EDT, Route to Pharmacy Electronically, [facility] [id number], 171, cm, 05/28/20 16:0... Start Date: 05/28/20 Status: Ordered hydrocortisone 0.5% topical cream See Instructions, use sparingly on face, use on all other affected areas, # 28 Gm, 11 Refills, Maintenance, 03/07/21 6:50:00 EDT, [facility] [id number], use sparingly on face, use on all other affected areas, 174, cm, 01/13/21... Start Date: 03/07/21 Status: Ordered ketoconazole 2% topical shampoo 1 application, Topically, Daily, try daily for 5 days as a shampoo, # 120 mL, 11 Refills, Soft Stop, 03/07/21 6:51:00 EDT, Shampoo, [facility] [id number], 1 application Topically Daily,Instr:try daily for 5 [...] 0 Refills, Maintenance, 07/08/20 15:34:00 EST, Tablet, [facility], 3 tablet By [...] 11 Refills, Maintenance, 03/07/21 6:51:00 EDT, Tablet, [facility] [id number], 1 tablet By Mouth Daily, 174, cm, 01/13/21 8:20:00 EDT, Height, 93, kg, 01/08/21 18:17:00 EDT, Dry Weight Start Date: 03/07/21 Status: Ordered Narcan 4 mg/0.1 mL nasal spray See Instructions, 4 mg Once may repeat every 2 to 3 minutes until patient responds, # 2 each, 1 Refills, Soft Stop, 08/24/19 9:41:00 EST, [place], [place] -, MAMADOU García to pickler helper for Pt., 170, cm, 08/24/19 9:21:00 EST, Height, 66.36,... Start Date: 08/24/19 Status: Ordered ondansetron 4 mg oral tablet, disintegrating 1 tablet = 4 mg, By Mouth, Every 8 hours, PRN as needed for nausea/vomiting, # 12 tablet, 0 Refills, Maintenance, 12/08/20 19:19:00 EDT, DIS Tablet, [facility] [id number], Partial fill upon patient request if the [...] Refills, Maintenance, 11/28/19 9:42:00 EDT, REC Powder, [place], [place] -, 17 Gm By Mouth 2 times a day,x30 days,PRN:Constipation,Instr:... Start Date: 11/28/19 Stop Date: 03/27/20 Status: Ordered sildenafil 100 mg oral tablet 1 tablet = 100 mg, By Mouth, Daily, 1 hour before sexual activity, # 20 tablet, 11 Refills, Maintenance, 03/07/21 6:49:00 EDT, Tablet, [place], [place] - [id number], Partial fill upon patient request if the prescription is for a sched... 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
--- OUTSIDE RECORDS SUMMARY | 2023-07-12 20:10 | XMS_ITS | Continuity of Care Document ---
Author Name Unknown Organization [facility] Address [address] [place] [address]- Care Team Providers Care Animal Science Professor Name Role Phone Conner QUEEN, Namrata Agarwal Primary Care Physician Encounter [facility] Date(s): 03/19/23 - 04/18/23 [facility] [address] [place] [id number] Encounter Diagnosis Erectile dysfunction(Discharge Diagnosis) - 05/29/20 Depression - [facility](Discharge Diagnosis) - 05/29/20 Attending Physician: Angeles De [...] 02/16/23 10:45:00 EDT, Route to Pharmacy Electronically, [facility] [place] [place] - [id number], 173, cm, 01/21/23 11:36:00 EDT, Height, 93.18, kg, 12/07/2... Start Date: 02/16/23 Status: Ordered aspirin 81 mg oral tablet, chewable 81 mg, 1, tablet, By Mouth, Daily, # 90 tablet, Refills 3, Tot. Refills 3, Maintenance, 02/16/23 10:45:00 EDT, Route to Pharmacy Electronically, [facility] [id number], Partial fill upon patient request if the prescription is f... Start Date: 02/16/23 Status: Ordered atorvastatin 80 mg oral tablet 1 tablet = 80 mg, By Mouth, Daily, # 90 tablet, 3 Refills, Maintenance, 02/16/23 10:45:00 EDT, Tablet, [facility] [id number], Partial fill upon patient request if the prescription is for a schedule II opioid drug., 173, cm, 05... Start Date: 02/16/23 Status: Ordered Biktarvy oral tablet 1 tablet, By Mouth, Daily, must get appt and labs for refills, # 30 tablet, 0 Refills, Maintenance,12/16/22 19:18:00 EDT, [facility] [id number], 30, 1 tablet By Mouth Daily,Instr:must get appt and labs for refills, 173, cm, 0... Start Date: 12/16/22 Status: Ordered Colace sodium 100 mg oral capsule 100 mg, 1, capsule, By Mouth, 2 times a day, PRN, # 180 capsule, Refills 3, Tot. Refills 3, Maintenance, for constipation, 02/16/23 10:45:00 EDT, Route to Pharmacy Electronically, [facility] [id number], Partial fill upon patie... Start Date: 02/16/23 Status: Ordered EpiPen 2-Devin 0.3 mg injectable kit = 0.3 mg, Intramuscular, Once, may repeat if necessary, # 2 each, 1 Refills, Soft Stop, 04/14/23 14:07:00 EDT, [facility] [id number], Partial fill upon patient request if theprescription is for a schedule II opioid drug., 176... Start Date: 04/14/23 Status: Ordered fluticasone-salmeterol 250 mcg-50 mcg inhalation powder 1, puffs, Inhalation, 2 times a day, # 3 each, Refills 3, Tot. Refills 3, Maintenance, 02/16/23 10:45:00 EDT, Powder, Route to Pharmacy Electronically, [id number], [place], [place] - [id number], 173, cm, 01/04... Start Date: 02/16/23 Status: Ordered Incruse Ellipta 62.5 mcg/inh inhalation powder 1 puffs, Inhalation, Every 24 hours, # 3 each, 3 Refills, Maintenance, 02/16/23 10:45:00 EDT, [place], [place] - [id number], 173, cm, 01/21/23 11:36:00 EDT, Height, 93.18, kg, 08/12/22 0:40:00 EST, Dry Weight Start Date: 02/16/23 Status: Ordered [place] 200 mg, By Mouth, Daily at bedtime, [...] tablet, 3 Refills,Maintenance, 02/16/23 10:45:00 EDT, Tablet, [facility] [id number], Partialfill upon patient request if the prescription is fo... Start Date: 02/16/23 Status: Ordered Ventolin HFA 108 mcg/inh inhalation aerosol with adapter 2 puffs, Inhalation, 4 times a day, PRN for wheezing, # 3 each, 3 Refills, Maintenance, 02/16/23 10:45:00 EDT, Aerosol, [facility] [id number], Partial fill upon patient request if the prescription is for a schedule II opioid d... Start Date: 02/16/23 Status: Ordered Vitamin D3 1000 intl units oral capsule 1 capsule = 25 mcg, By Mouth, Daily, # 90 capsule, 3 Refills, Maintenance, 02/16/23 10:45:00 EDT, Capsule, [facility] [id number], D/c vitamin high dosed, 173, cm, 01/21/23 11:36:00 EDT, Height, 93.18, kg, 08/12/22 0:40:00 EST,... Start Date: 02/16/23 Status: Ordered Problem List Condition Confirmation Course Effective Dates Status Health St at Informant Latex allergy Confirmed Active Allergy to shellfish Confirmed Active Stroke Confirmed 09/2021 Active Chronic active hepatitis C - genotype 1a - steatohepatitis/spl enomegally Confirmed Active Constipation Confirmed Active Cryptococcal meningitis - 01/2019 Confirmed Active Depression - Olinda dawn [facility] Confirmed Active Diastolic dysfunction 1 [...] Discharge Diagnosis 05/29/20 Depression - Olinda therapist, [facility] Discharge Diagnosis 05/29/20 Social History Social History Type Response Smoking Status 10 or more cigarette s (1/2 pack or more)/day in last 30 days entered on: 12/05/21 Sex Patient Care team information Care Team Personnel Name: Jadiel Watson RN Position: [facility] ED RN W/OE and Tasks Member Role: Primary Care Nurse Name: Dede Mccloud RN Position: [facility] RN Member Role: Primary Care Nurse Name: Judy Gonzales RN Position: [facility] RN Member Role: Primary Care Nurse Name: Jake Moon Position: [facility] RN Supv Member Role: Primary Care Nurse Name: Enma Manriquez RN Position: [facility] AMB Nurse Member Role: Primary Care Nurse Name: Zuhair Lopez RN Position: [facility] RN Member Role: Primary Care Nurse Name: Edie Bob RN Position: [facility] RN Member Role: Primary Care Nurse Name: Lisbet Gardiner RN Position: [facility] RN Member Role: Primary Care Nurse Name: Namrata Prieto MD Position: [facility] Physician - Primary Care Member Role: PCP Address: Address: [address] [place] [address]- Name: Carolina Valero RN Position: [facility] RN Member Role: Primary Care Nurse Name: Nishi San RN Position: [facility] RN Member Role: Primary Care Nurse Name: Micky Boyd RN Position: [facility] RN Member Role: Primary Care Nurse Name: Lauri Combs NP Position: Reference Physician Member Role: Primary Care Nurse Address: Address: [address] [place] [address] [address] Clinical & [place] [address]- [place] Name: Griselda Rand Position: [facility] RN Supv Member Role: Primary Care Nurse Care Team Related Persons Name: LUIS SAN Address: [place] [address] Name: BROOKE OWEN Address: home [address] [place] [id number] Name: KARYN OWEN Address: home [address] [place] [address] Name: DOMINGO LEONE Address: home [address] [place] [address]
--- OUTSIDE RECORDS SUMMARY | 2023-07-12 20:10 | XMS_ITS | Continuity of Care Document ---
Author Name Unknown Organization [facility] y Address [address] [place] [address]- Care Team Providers Care President & Founder Name Role Phone Namrata Prieto MD Primary Care Physician Encounter [facility] Date(s): 03/03/22 - 04/25/22 [facility] [address] [place] [id number] Attending Physician: Isidoro Neely MD Admitting Physician: Isidoro Neely MD Referring Physician: Namrata Prieto MD Allergies, [...] 8:29:00 EDT, Powder, Route to Pharmacy Electronically, [id number], [facility] - Spr... Start Date: 01/07/22 Stop Date: 01/02/23 Status: Ordered Albuterol (Eqv-ProAir HFA) 90 mcg/inh inhalation aerosol 2 puffs, Inhalation, Every 6 hours, # 8.5 Gm, 11 Refills, 08/25/21 12:34:00 EST, [facility] [id number], 25, 2 puffs Inhalation Every 6 hours, 173, cm, 08/25/21 12:31:00 EST, Height, 84, kg, 04/19/21 2:36:00 EDT, Dry Weight Start Date: 08/25/21 Status: Ordered amLODIPine 10 mg oral tablet 10 mg, 1, tablet, By Mouth, Daily, # 30 tablet, Refills 11, Tot. Refills 11, Maintenance, 08/27/21 16:46:00 EST, Route to Pharmacy Electronically, [facility] [id number], 173,cm, 08/25/21 12:31:00 EST, Height, 84, kg, 04/19/21... Start Date: 08/27/21 Status: Ordered Asperflex 4% topical film 1 patch, Topically, Daily, for 30 days, # 30 patch, 11 Refills, Acute 03/12/23 14:41:00 EDT, 03/17/22 14:41:00 EDT, [facility] [id number], Partial fill upon patient request if the prescription is for a schedule II opioid drug.... Start Date: 03/17/22 Stop Date: 03/12/23 Status: Ordered aspirin 81 mg oral tablet, chewable 81 mg, 1, tablet, By Mouth, Daily, # 120 tablet, Refills 3, Tot. Refills 3, Maintenance, 10/02/21 11:47:00 EST, Route to Pharmacy Electronically, [facility] [id number], Partial fill upon patient request if the prescription is... Start Date: 10/02/21 Stop Date: 01/25/23 Status: Ordered atorvastatin 80 mg oral tablet 1 tablet = 80 mg, By Mouth, Daily, # 30 tablet, 11 Refills, Maintenance, 11/07/21 14:34:00 EST, Tablet, [facility] [id number], Partial fill upon patient request if the prescription is for a schedule II opioid drug., 170, cm, 0... Start Date: 11/07/21 Status: Ordered atovaquone 750 mg/5 mL oral suspension 10 mL = 1,500 mg, By Mouth, Daily, for 60 days, # 600 mL, 11 Refills, Acute 10/28/23 14:35:00 EST, 11/07/21 14:35:00 EST, Suspension, [facility], [place] - [id number], Pls cancel bactrim prescription. Atovaquone to replace bactrim, 170,... Start Date: 11/07/21 Stop Date: 10/28/23 Status: Ordered Biktarvy oral tablet 1 tablet, By Mouth, Daily, # 30 tablet, 11 Refills, [facility], 30, TAKE ONE TABLET BY MOUTH DAILY, 173, cm, 04/21/21 8:17:00 EDT, Height, 84, kg, 04/19/21 2:36:00 EDT, Dry Weight Start Date: 06/25/21 Status: Ordered Colace sodium 100 mg oral capsule 100 mg, 1, capsule, By Mouth, 2 times a day, PRN, # 60 capsule, Refills 11, Tot. Refills 11, Maintenance, for constipation, 12/02/21 16:54:00 EDT, Route to Pharmacy Electronically, [place], [place] - [id number], Partial fill upon pilar... Start Date: 12/02/21 [...] 1 Refills, Soft Stop, 03/05/22 10:37:00 EDT, [facility], [place] - [id number], Partial fill upon patient request if the prescriptio... Start Date: 03/05/22 Status: Ordered ergocalciferol 50367 iu oral capsule 50,000 International_Units, 1, capsule, By Mouth, Every week, for 30 days, # 5 capsule, Refills 1, Tot. Refills 1, Acute 05/04/22 10:22:00 EDT, 03/05/22 10:22:00 EDT, Route to Pharmacy Electronically, [facility] [id number], 17... Start Date: 03/05/22 Stop Date: 05/04/22 Status: Ordered hydrocortisone 0.5% topical cream See Instructions, use sparingly on face, use on all other affected areas, # 28 Gm, 11 Refills, Maintenance, 03/07/21 6:50:00 EDT, [facility] [id number], use sparingly on face, use on all other affected areas, 174, cm, 01/13/21... Start Date: 03/07/21 Status: Ordered Incruse Ellipta 62.5 mcg/inh inhalation powder 1 puffs, Inhalation, Every 24 hours, doses should be taken AT least 24 HOURS APART, # 30 Unknown, 11 Refills, 08/25/21 12:34:00 EST, [facility] [id number], 173, cm, 08/25/21 12:31:00 EST, Height, 84, kg, 04/19/21 2:36:00 EDT,... Start Date: 08/25/21 Status: Ordered ketoconazole 2% topical cream 1 application, Topically, Daily, # 30 Gm, 11 Refills, Maintenance, 04/20/22 9:23:00 EDT, [facility] [id number], 1 application Topically Daily, 173, cm, 12/05/21 17:38:00 EDT,Height, 127, kg, 12/05/21 17:38:00 EDT, Dry Weight Start Date: 04/20/22 Status: Ordered Lidoderm 5% film 1 patch, Topically, Daily, # 30 patch, 11 Refills, Maintenance, 03/19/22 21:12:00 EDT, [facility] [id number], Partial fill upon patient request if the [...] 0 Refills, Maintenance, 11/11/21 17:22:00 EST, Tablet, [facility] [id number], 170, cm, 10/10/21 13:45... Start Date: 11/11/21 Stop Date: 12/11/21 Status: Ordered multivitamin with minerals Calcium and Magnesium oral tablet 1 tablet, By Mouth, Daily, # 30 tablet, 11 Refills, Maintenance, 12/15/21 6:32:00 EDT, Tablet, [facility] [id number], 1 tablet By Mouth Daily, 173, cm, 12/05/21 17:38:00 EDT,Height, 127, kg, 12/05/21 17:38:00 EDT, Dry Weight Start Date: 12/15/21 Status: Ordered Narcan 4 mg/0.1 mL nasal spray See Instructions, 4 mg Once may repeat every 2 to 3 minutes until patient responds, # 2 each, 3 Refills, Soft Stop, 03/05/22 10:07:00 EDT, [facility] [id number], 173, cm, 12/05/21 17:38:00 EDT, Height, 127, kg, 12/05/21 17:38... Start Date: 03/05/22 Status: Ordered Nicotine 2 mg gum 1 each = 2 mg, Chew, Every 2 hours, PRN as needed for smoking cessation, for 4 week(s), # 160 each,11 Refills, Acute 09/11/22 12:53:00 EST, 10/10/21 12:53:00 EST, Gum, [facility] [id number], Partial fill upon patient request... Start Date: 10/10/21 Stop Date: 09/11/22 Status: Ordered ondansetron 4 mg oral tablet, disintegrating 1 tablet = 4 mg, By Mouth, Every 8 hours, PRN as needed for nausea/vomiting, # 12 tablet, 11 Refills, Maintenance, 08/21/21 13:33:00 EST, DIS Tablet, [facility] [id number], Partial fill upon patient request if the [...] Refills, Maintenance, 12/02/21 16:55:00 EDT, REC Powder, [facility] [id number], 17 Gm By Mouth 2 times a day,x30 days,PRN:Constip... Start Date: 12/02/21 Stop Date: 04/01/22 Status: Ordered rOPINIRole 0.5 mg oral tablet 1 tablet = 0.5 mg, By Mouth, Daily at bedtime, 1 to 3 hours before bedtime, # 30 tablet, 11 Refills, Maintenance, 08/21/21 13:32:00 EST, Tablet, [facility], [facility] [id number], Partial fill upon patient request if the prescription is f... Start Date: 08/21/21 Status: Ordered Senna 8.6 mg oral tablet 1 or 2 tablets, By Mouth, Daily at bedtime, PRN, # 60 tablet, Refills 11, Tot. Refills 11, Maintenance, Constipation, 04/14/22 16:15:00 EDT, Route to Pharmacy Electronically, [facility] [id number] Tablet, Partial fill upon pat... Start Date: 04/14/22 Status: Ordered sildenafil 100 mg oral tablet 0.5 tablet = 50 mg, By Mouth, Daily, 1 hour before sexual activity, # 20 tablet, 11 Refills, Maintenance, 04/20/22 9:22:00 EDT, Tablet, [facility] [id number], Partial fill upon patient request if the prescription is for a sche... Start Date: 04/20/22 Status: Ordered sildenafil 100 mg oral tablet 1 tablet = 100 mg, By Mouth, Daily, 1 hour before sexual activity, # 20 tablet, 11 Refills, Maintenance, 04/20/22 9:24:00 EDT, Tablet, [facility] [id number], disreguard last script for 0.5 tab, 173, cm, 12/05/21 17:38:00 EDT,... Start Date: 04/20/22 Status: Ordered varenicline 1mg tablet 1 tablet = 1 mg, By Mouth, Daily, 0.5 tab daily x 3 days then 0.5 tab BID x 3 days then 1 tab BID, # 30 tablet, 4 Refills, Maintenance, 04/01/22 16:45:00 EDT, Tablet, [facility] [id number], Partial fill upon patient request if... 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
--- OUTSIDE RECORDS SUMMARY | 2023-07-12 20:10 | XMS_ITS | Continuity of Care Document ---
Author Name Unknown Organization [facility] Address [address] [place] [address]- Care Team Providers Care Data Integrity Consultant Name Role Phone Conner QUEEN, Namrata Agarwal Primary Care Physician Encounter [facility] Date(s): 10/09/21 - 11/08/21 [facility] [address] [place], [place] [address] Allergies, Adverse Reactions, Alerts Substance Reaction [...] 13:14:00 EST, Powder, Route to Pharmacy Electronically, [id number], [facility] - Spri... Start Date: 08/21/21 Stop Date: 01/18/22 Status: Ordered Albuterol (Eqv-ProAir HFA) 90 mcg/inh inhalation aerosol 2 puffs, Inhalation, Every 6 hours, # 8.5 Gm, 11 Refills, 08/25/21 12:34:00 EST, [facility] [id number], 25, 2 puffs Inhalation Every 6 hours, 173, cm, 08/25/21 12:31:00 EST, Height, 84, kg, 04/19/21 2:36:00 EDT, Dry Weight Start Date: 08/25/21 Status: Ordered amLODIPine 10 mg oral tablet 10 mg, 1, tablet, By Mouth, Daily, # 30 tablet, Refills 11, Tot. Refills 11, Maintenance, 08/27/21 16:46:00 EST, Route to Pharmacy Electronically, [facility] [id number], 173,cm, 08/25/21 12:31:00 EST, Height, 84, kg, 04/19/21... Start Date: 08/27/21 Status: Ordered aspirin 81 mg oral tablet, chewable 81 mg, 1, tablet, By Mouth, Daily, # 120 tablet, Refills 3, Tot. Refills 3, Maintenance, 10/02/21 11:47:00 EST, Route to Pharmacy Electronically, [facility] [id number], Partial fill upon patient request if the prescription is... Start Date: 10/02/21 Stop Date: 01/25/23 Status: Ordered atorvastatin 80 mg oral tablet 1 tablet = 80 mg, By Mouth, Daily, # 30 tablet, 11 Refills, Maintenance, 11/07/21 14:34:00 EST, Tablet, [facility] [id number], Partial fill upon patient request if the prescription is for a schedule II opioid drug., 170, cm, 0... Start Date: 11/07/21 Status: Ordered atovaquone 750 mg/5 mL oral suspension 10 mL = 1,500 mg, By Mouth, Daily, for 60 days, # 600 mL, 11 Refills, Acute 10/28/23 14:35:00 EST, 11/07/21 14:35:00 EST, Suspension, [facility] [id number], Pls cancel bactrim prescription. Atovaquone to replace bactrim, 170,... Start Date: 11/07/21 Stop Date: 10/28/23 Status: Ordered Biktarvy oral tablet 1 tablet, By Mouth, Daily, # 30 tablet, 11 Refills, [facility], 30, TAKE ONE TABLET BY MOUTH [...] FOR CONSTIPATION, # 60 each, 5 Refills, [facility], 173, cm, 04/21/21 8:17:00 EDT, Height, 84, kg, 04/19/21 2:36:00 EDT, Dry Weight Start Date: 06/02/21 Status: Ordered hydrocortisone 0.5% topical cream See Instructions, use sparingly on face, use on all other affected areas, # 28 Gm, 11 Refills, Maintenance, 03/07/21 6:50:00 EDT, [facility] [id number], use sparingly on face, use on all other affected areas, 174, cm, 01/13/21... Start Date: 03/07/21 Status: Ordered Incruse Ellipta 62.5 mcg/inh inhalation powder 1 puffs, Inhalation, Every 24 hours, doses should be taken AT least 24 HOURS APART, # 30 Unknown, 11 Refills, 08/25/21 12:34:00 EST, [place], [place] - [id number], 173, cm, 08/25/21 12:31:00 EST, Height, 84, kg, 04/19/21 2:36:00 EDT,... Start Date: 08/25/21 Status: Ordered ketoconazole 2% topical cream See Instructions, APPLY TO THE AFFECTED AREA TOPICALLY 2 (two) times a day. 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 Start Date: 08/24/19 Status: Ordered Nicotine 2 mg gum 1 each = 2 mg, Chew, Every 2 hours, PRN as needed for smoking cessation, for 4 week(s), # 160 each,11 Refills, Acute 09/11/22 12:53:00 EST, 10/10/21 12:53:00 EST, Gum, [facility] [id number], Partial fill upon patient request... Start Date: [...] Refills, Maintenance, 08/21/21 13:33:00 EST, DIS Tablet, [facility] [id number], Partial fill upon patient request if the [...] 10/02/21 11:47:00 EST, Route to Pharmacy Electronically, [facility] [id number], Partial fill upon patient request if the prescription is f... Start Date: 10/02/21 Stop Date: 12/31/21 Status: Ordered polyethylene glycol 3350 oral powder for reconstitution = 17 Gm, By Mouth, 2 times a day, PRN Constipation, dissolve in water before taking, # 527 Gm, 3 Refills, Maintenance, 11/28/19 9:42:00 EDT, REC Powder, [place], [place] -, 17 Gm By Mouth 2 times a day,x30 days,PRN:Constipation,Instr:... Start Date: 11/28/19 Stop Date: 03/27/20 Status: Ordered polyethylene glycol 3350 oral powder for reconstitution See Instructions, DISSOLVE 17grams powder IN WATER BEFORE drinking 2 (two) times a day NEEDED FOR CONSTIPATION, # 510 Gm, 11 Refills, [facility], 30, DISSOLVE 17grams powder IN WATER BEFORE drinking 2 (two) times a day NEEDED FOR CONSTIPATI... Start Date: 09/03/21 Status: Ordered rOPINIRole 0.5 mg oral tablet 1 tablet = 0.5 mg, By Mouth, Daily at bedtime, 1 to 3 hours before bedtime, # 30 tablet, 11 Refills, Maintenance, 08/21/21 13:32:00 EST, Tablet, [facility] [id number], Partial fill upon patient request if the prescription is f... Start Date: 08/21/21 Status: Ordered Senna 8.6 mg oral tablet 1 or 2 tablets, By Mouth, Daily at bedtime, PRN, # 60 tablet, Refills 5, Tot. Refills 5, Maintenance, Constipation, 10/10/21 14:43:00 EST, Route to Pharmacy Electronically, [place], [place] - [id number] Tablet, Partial fill upon patie... Start Date: 10/10/21 Status: Ordered sildenafil 100 mg oral tablet 1 tablet = 100 mg, By Mouth, Daily, 1 hour before sexual activity, # 20 tablet, 11 Refills, Maintenance, 03/07/21 6:49:00 EDT, Tablet, [place], [place] - [id number], Partial fill upon patient request if the prescription is for a sched... 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
--- OUTSIDE RECORDS SUMMARY | 2023-07-12 20:10 | XMS_ITS | Continuity of Care Document ---
Author Name Unknown Organization [facility] Address [address] [place] [address]- Care Team Providers Care Ammonium Nitrate Crystallizer Name Role Phone Conner QUEEN, Namrata Agarwal Primary Care Physician Encounter [facility] [id number] Date(s): 08/14/20 - 09/13/[address] [address]- Attending Physician: Angeles De La Rosa Admitting Physician: AdmAngeles cervantes Referring Physician: AdmtrAngeles Allergies, Adverse Reactions, Alerts [...] 05/28/20 16:31:00 EDT, Route to Pharmacy Electronically, [place], [place] - [id number], 171, cm, 05/28/20 16:01:00 EDT, Height, 59.5, kg, 12/29/19... Start Date: 05/28/20 Status: Ordered atovaquone 750 mg/5 mL oral suspension 10 mL = 1,500 mg, By Mouth, Daily, for 60 days, # 600 mL, 11 Refills, Acute 05/18/22 16:35:00 EDT, 05/28/20 16:35:00 EDT, Suspension, [facility] [id number], Pls cancel bactrim prescription. Atovaquone to replace bactrim, 171,... Start Date: 05/28/20 Stop Date: 05/18/22 Status: Ordered azithromycin 500 mg oral tablet 2 tablet = 1,000 mg, By Mouth, Once, take both tablets at once, # 2 tablet, 0 Refills, Soft Stop, 06/27/20 17:56:00 EDT, Tablet, [facility] [id number], 171, cm, 05/28/20 16:01:00 EDT, Height, 59.5, kg, 12/29/19 15:28:00 EDT, D... Start Date: 06/27/20 Status: Ordered Biktarvy oral tablet 1 tablet, By Mouth, Daily, for 30 days, # 30 tablet, 11 Refills, Hard Stop 05/23/21 16:35:00 EDT, 05/28/20 16:35:00 EDT, Tablet, [facility] [id number], 1 tablet By Mouth Daily,x30 days, 171, cm, 05/28/20 16:01:00 EDT, Height,... Start Date: 05/28/20 Stop Date: 05/23/21 Status: Ordered Colace sodium 100 mg oral capsule 100 mg, 1, capsule, By Mouth, 2 times a day, PRN, # 60 capsule, Refills 11, Tot. Refills 11, Maintenance, for constipation, 05/28/20 16:34:00 EDT, Route to Pharmacy Electronically, [facility] [id number], 171, cm, 05/28/20 16:0... Start Date: 05/28/20 [...] 06/28/20 13:01:00 EDT, Route to Pharmacy Electronically, [facility] [id number], 171, cm, 05/28/20 16:01:00 EDT, Height, 59.5... Start Date: 06/28/20 Status: Ordered hydrocortisone 0.5% topical cream See Instructions, use sparingly on face, use on all other affected areas, # 28 Gm, 11 Refills, Maintenance, 05/28/20 16:37:00 EDT, [facility] [id number], use sparingly on face, use on all other affected areas, 171, cm, ... Start Date: 05/28/20 Status: Ordered influenza virus vaccine, inactivated adjuvanted preservative-free quadrivalent intramuscular susp See Instructions, none, # 1 each, 0 Refills, Maintenance, 05/30/20 9:27:00 EDT, [facility], none, 171, cm, 05/28/20 16:01:00 EDT, Height, 59.5, kg, 12/29/19 15:28:00 EDT, Dry Weight Start Date: 05/30/20 Status: Ordered ketoconazole 2% topical cream 1 application, Topically, 2 times a day, for 28 days, use on the face, # 60 Gm, 11 Refills, Acute 04/29/21 16:40:00 EDT, 05/28/20 16:40:00 EDT, Cream, [facility] [id number], 1 application Topically 2 times a day,x28 days,Instr... Start Date: 05/28/20 Stop Date: 04/29/21 Status: Ordered ketoconazole 2% topical shampoo 1 application, Topically, Daily, try daily for 5 days as a shampoo, # 120 mL, 11 Refills, Soft Stop, 05/28/20 16:37:00 EDT, Shampoo, [facility], [place] - [id number], 1 application Topically Daily,Instr:try daily for 5 days as a shampoo,... Start Date: 05/28/20 Status: Ordered lithium 300 mg oral capsule 2 capsule = 600 mg, By Mouth, 2 times a day, # 120 capsule, 2 Refills, Maintenance, 06/28/20 12:56:00 EDT, [facility], [facility] [id number], Increase in dose per Psychiatry, 171, cm, 05/28/20 16:01:00 EDT, Height, 59.5, kg, 12/29/19 15:2... Start Date: 06/28/20 Status: Ordered LORazepam 0.5 mg oral tablet 1 tablet = 0.5 mg, By Mouth, 2 times a day, PRN Anxiety, # 60 tablet, 2 Refills, Maintenance, 06/28/20 12:56:00 EDT, Tablet, [facility] [id number], 171, cm, 05/28/20 16:01:00EDT, Height, 59.5, kg, 12/29/19 15:28:00 EDT, Dry W... Start Date: 06/28/20 Status: Ordered Mavyret 100 mg-40 mg oral tablet 3 tablet, By Mouth, Daily, with food, # 252 tablet, 0 Refills, Maintenance, 07/08/20 15:34:00 EST, Tablet, [facility], 3 tablet By Mouth [...] 5 Refills, Maintenance, 05/28/20 16:35:00 EDT, Tablet, [facility] [id number], 171, cm, 05/28/20 16:01:00 EDT, Height, 59.5, kg, 12/29/19 15:28:00 EDT, Dry Weight Start Date: 05/28/20 Stop Date: 11/24/20 Status: Ordered multivitamin with minerals Calcium and Magnesium oral tablet 1 tablet, By Mouth, Daily, # 30 tablet, 11 Refills, Maintenance, 05/28/20 16:35:00 EDT, Tablet, [facility] [id number], 1 tablet By Mouth Daily, 171, cm, 05/28/20 16:01:00 EDT, Height, 59.5, kg, 12/29/19 15:28:00 EDT, Dry Weight Start Date: 05/28/20 Stop Date: 05/23/21 Status: Ordered Narcan 4 mg/0.1 mL nasal spray See Instructions, 4 mg Once may repeat every 2 to 3 minutes until patient responds, # 2 each, 1 Refills, Soft Stop, 08/24/19 9:41:00 EST, [place], [place] -, MAMADOU 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 Start Date: 08/24/19 Status: Ordered Nicotine 2 mg gum 1 each = 2 mg, Chew, Every 2 hours, PRN as needed for smoking cessation, # 160 each, 3 Refills, Maintenance, 05/28/20 16:51:00 EDT, Gum, [facility] [id number], 171, cm, 05/28/20 16:01:00 EDT, Height, 59.5, [...] Refills, Soft Stop, 05/30/20 9:25:00 EDT, Suspension, [facility], 0.5 mL Intramuscular Once, 171, cm, 05/28/20 16:01:00 EDT, Height, 59.5, kg,12/29/19 15:28:00 EDT, Dry Weight Start Date: 05/30/20 Status: Ordered polyethylene glycol 3350 oral powder for reconstitution = 17 Gm, By Mouth, 2 times a day, PRN Constipation, dissolve in water before taking, # 527 Gm, 3 Refills, Maintenance, 11/28/19 9:42:00 EDT, REC Powder, [place], [place] -, 17 Gm By Mouth 2 times a day,x30 days,PRN:Constipation,Instr:... Start Date: 11/28/19 Stop Date: 03/27/20 Status: Ordered SEROquel 25 mg oral tablet 25 mg, 1, tablet, By Mouth, Daily at bedtime, # 30 tablet, Refills 2, Tot. Refills 2, Maintenance, 06/14/20 20:44:00 EDT, Route to Pharmacy Electronically, [facility], 171, cm, 05/28/20 16:01:00 EDT, Height, 59.5, kg, 12/29/19 15:28:00... Start Date: 06/14/20 Stop Date: 09/12/20 Status: Ordered sildenafil 100 mg oral tablet 1 tablet = 100 mg, By Mouth, Daily, 1 hour before sexual activity, # 10 tablet, 5 Refills, Maintenance, 09/04/20 14:26:00 EST, Tablet, [place], [place] - [id number], Partial fill upon patient request if the prescription is for a sched... 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 Sex
--- OUTSIDE RECORDS SUMMARY | 2023-07-12 20:10 | XMS_ITS | Continuity of Care Document ---
Author Name Unknown Organization [facility] Address [address] [place] [id number]- Care Team Providers Care Bone Drier Name Role Phone Conner QUEEN, Namrata Agarwal Primary Care Physician [facility] Date[facility]): 10/16/22 - 11/15/22 [facility] [address] [place] [phone]- Allergies, Adverse Reactions, Alerts Substance Reaction Severity [...] 8:46:00 EST, Powder, Route to Pharmacy Electronically, [id number], [facility] - Spr... Start Date: 07/20/22 Stop Date: 07/15/23 Status: Ordered Albuterol (Eqv-ProAir HFA) 90 mcg/inh inhalation aerosol 2 puffs, Inhalation, Every 6 hours, # 8.5 Gm, 11 Refills, 08/25/21 12:34:00 EST, [facility] [id number], 25, 2 puffs Inhalation Every 6 hours, 173, cm, 08/25/21 12:31:00 EST, Height, 84, kg, 04/19/21 2:36:00 EDT, Dry Weight Start Date: 08/25/21 Status: Ordered amLODIPine 10 mg oral tablet 10 mg, 1, tablet, By Mouth, Daily, # 30 tablet, Refills 11, Tot. Refills 11, Maintenance, 07/20/22 8:43:00 EST, Route to Pharmacy Electronically, [facility] [id number], 173, cm, 05/10/22 20:46:00 EDT, Height, 95.5, kg, ... Start Date: 07/20/22 Status: Ordered Asperflex 4% topical film 1 patch, Topically, Daily, for 30 days, # 30 patch, 11 Refills, Acute 03/12/23 14:41:00 EDT, 03/17/22 14:41:00 EDT, [facility] [id number], Partial fill upon patient request if the prescription is for a schedule II opioid drug.... Start Date: 03/17/22 Stop Date: 03/12/23 Status: Ordered aspirin 81 mg oral tablet, chewable 81 mg, 1, tablet, By Mouth, Daily, # 30 tablet, Refills 11, Tot. Refills 11, Maintenance, 07/20/22 8:43:00 EST, Route to Pharmacy Electronically, [facility] [id number], Partial fill upon patient request if the prescription is... Start Date: 07/20/22 Stop Date: 11/12/23 Status: Ordered atorvastatin 80 mg oral tablet 1 tablet = 80 mg, By Mouth, Daily, # 30 tablet, 11 Refills, Maintenance, 07/20/22 8:43:00 EST, Tablet, [facility] [id number], Partial fill upon patient request if the prescription is for a schedule II opioid drug., 173, cm, 09... Start Date: 07/20/22 Status: Ordered Biktarvy oral tablet 1 tablet, By Mouth, Daily, # 30 tablet, 5 Refills, Maintenance, 07/20/22 8:36:00 EST, [facility], [facility] [id number], 30, 1 tablet By Mouth Daily, 173, [...] 1 Refills, Soft Stop, 03/05/22 10:37:00 EDT, [facility] [id number], Partial fill upon patient request if the [...] Gm, 11 Refills, Maintenance, 03/07/21 6:50:00 EDT, [facility] [id number], use sparingly on face, use on all other affected areas, 174, cm, 01/13/21... Start Date: 03/07/21 Status: Ordered Incruse Ellipta 62.5 mcg/inh inhalation powder See Instructions, INHALE 1 PUFF BY MOUTH INTO THE lungs EVERY 24 HOURS. doses should be taken AT least 24 HOURS APART, # 30 Unknown, 5 Refills, Maintenance, 09/02/22 20:23:00 EST, [facility], 173, cm, 08/12/22 0:40:00 EST, Height, 93.18, kg, 12/0... Start Date: 09/02/22 Status: Ordered ketoconazole 2% topical cream 1 application, Topically, Daily, # 30 Gm, 11 Refills, Maintenance, 04/20/22 9:23:00 EDT, [facility], [facility] [id number], 1 application Topically Daily, 173, cm, 12/05/21 17:38:00 EDT,Height, 127, kg, 12/05/21 17:38:00 EDT, Dry Weight Start Date: 04/20/22 Status: Ordered Lidoderm 5% film 1 patch, Topically, Daily, # 30 patch, 11 Refills, Maintenance, 03/19/22 21:12:00 EDT, [facility], [place] - [id number], Partial fill upon patient request if the [...] 11 Refills, Maintenance, 07/20/22 8:43:00 EST, Tablet, [facility], [place] - [id number], 1 tablet By Mouth Daily, 173, cm, 05/10/22 20:46:00 EDT,Height, 95.5, kg, 05/10/22 20:46:00 EDT, Dry Weight Start Date: 07/20/22 Status: Ordered Narcan 4 mg/0.1 mL nasal spray See Instructions, 4 mg Once may repeat every 2 to 3 minutes until patient responds, # 2 each, 3 Refills, Soft Stop, 03/05/22 10:07:00 EDT, [facility], [facility] [id number], 173, cm, 12/05/21 17:38:00 EDT, Height, 127, kg, 12/05/21 17:38... Start Date: 03/05/22 Status: Ordered ondansetron 4 mg oral tablet, disintegrating 1 tablet = 4 mg, By Mouth, Every 8 hours, PRN as needed for nausea/vomiting, # 12 tablet, 11 Refills, Maintenance, 08/21/21 13:33:00 EST, DIS Tablet, [facility] [id number], Partial fill upon patient request if the prescription... Start Date: 08/21/21 Status: Ordered pantoprazole 40 mg oral delayed release tablet 1 tablet = 40 mg, By Mouth, Daily, # 30 tablet, 11 Refills, Maintenance, 07/20/22 8:43:00 EST, [facility] Tablet, 173, cm, 05/10/22 20:46:00 EDT, Height, 95.5, kg, 05/10/22 20:46:00 EDT, Dry Weight Start Date: 07/20/22 Status: Ordered permethrin 1% topical lotion 1 application, Topically, Once, first dose (OTC) 10/22/2022; second dose for 10/29/2022, # 240 mL, 0 Refills, Soft Stop, 10/27/22 12:34:00 EST, Lotion, [facility] [id number], Partial fill upon patient request if the prescription... Start Date: 10/27/22 Status: Ordered polyethylene glycol 3350 oral powder for reconstitution = 17 Gm, By Mouth, 2 times a day, PRN Constipation, dissolve in water before taking, # 527 Gm, 3 Refills, Maintenance, 12/02/21 16:55:00 EDT, REC Powder, [facility], [place] - [id number], 17 Gm By Mouth 2 times a day,x30 days,PRN:Constip... Start Date: 12/02/21 Stop Date: 04/01/22 Status: Ordered rOPINIRole 0.5 mg oral tablet 1 tablet = 0.5 mg, By Mouth, Daily at bedtime, 1 to 3 hours before bedtime, # 30 tablet, 11 Refills, Maintenance, 07/20/22 8:43:00 EST, Tablet, [facility] [id number], Partialfill upon patient request if the prescription is fo... Start Date: 07/20/22 Status: Ordered sildenafil 100 mg oral tablet 1 tablet = 100 mg, By Mouth, Daily, 1 hour before sexual activity, # 20 tablet, 11 Refills, Maintenance, 04/20/22 9:24:00 EDT, Tablet, [facility] [id number], disreguard last script for 0.5 tab, 173, cm, 12/05/21 17:38:00 EDT,... Start Date: 04/20/22 Status: Ordered varenicline 1mg tablet 1 tablet = 1 mg, By Mouth, Daily, 0.5 tab daily x 3 days then 0.5 tab BID x 3 days then 1 tab BID, # 30 tablet, 4 Refills, Maintenance, 09/04/22 15:20:00 EST, Tablet, [facility] [id number], Partial fill upon patient request if... Start Date: 09/04/22 Status: Ordered Ventolin HFA 108 mcg/inh inhalation aerosol with adapter 2 puffs, Inhalation, 4 times a day, PRN for wheezing, # 1 each, 11 Refills, Maintenance, 07/20/22 8:44:00 EST, Aerosol, [facility] [id number], Partial fill upon patient request if the [...] 11 Refills, Maintenance, 06/04/22 17:32:00 EDT, Capsule, [facility] - [place], [place] - [id number], D/c vitamin high dosed, 173, cm, 05/10/22 [...] - 01/2019 Confirmed Active Depression - [facility] Confirmed Active Diastolic dysfunction 1 [...] Team Personnel Name: Jadiel Watson RN Position: [facility] ED RN W/OE and Tasks Member Role: Primary Care Nurse Name: Dede Mccloud RN Position: [facility] RN Member Role: Primary Care Nurse Name: Judy Gonzales RN Position: [facility] RN Member Role: Primary Care Nurse Name: Enma Manriquez RN Position: [facility] RN Member Role: Primary Care Nurse Name: Zuhair Lopez RN Position: [facility] RN Member Role: Primary Care Nurse Name: Cathryn Allen RN Position: [facility] RN Member Role: Primary Care Nurse Name: Edie Bob RN Position: S RN Member Role: Primary Care Nurse Name: Lisbet Gardiner RN Position: [facility] RN Member Role: Primary Care Nurse Name: Namrata Prieto MD Position: [facility] Primary Care Physician Member Role: PCP Address: Address: [address] [place] [address], C-Level [facility] [place] [address]- Name: Carolina Valero RN Position: [facility] RN Member Role: Primary Care Nurse Name: Nishi San RN Position: [facility] RN Member Role: Primary Care Nurse Name: Micky Boyd RN Position: [facility] RN Member Role: Primary Care Nurse Name: Lauri Combs NP Position: Reference Physician Member Role: Primary Care Nurse Address: Address: [address] [place] [address] [address] [facility] [place] [address]- Care Team Related Persons Name: LUIS SAN Address: [place] [address] Name: BROOKE OWEN Address: home [address] [address] Name: KARYN OWEN Address: home [address] [place] [address] Name: DOMINGO LEONE Address: home [address] [place] [address]
--- OUTSIDE RECORDS SUMMARY | 2023-07-12 20:10 | XMS_ITS | Continuity of Care Document ---
Author Name Unknown Organization [facility] Address [address] [place] [address]- Care Team Providers Care Motion Picture Critic Name Role Phone Conner QUEEN, Namrata Agarwal Primary Care Physician [facility]): 11/18/20 - 12/18/20 [facility] [address] [place] [id number]- Allergies, Adverse Reactions, Alerts Substance Reaction Severity [...] 10/28/20 9:30:00 EST, Route to Pharmacy Electronically, [place], [place] - [id number], 173, cm, 07/17/20 19:29:00 EST, Height, 83.9, kg, 07/17/20... Start Date: 10/28/20 Status: Ordered atovaquone 750 mg/5 mL oral suspension 10 mL = 1,500 mg, By Mouth, Daily, for 60 days, # 600 mL, 11 Refills, Acute 05/18/22 16:35:00 EDT, 05/28/20 16:35:00 EDT, Suspension, [place], [place] - [id number], Pls cancel bactrim prescription. Atovaquone to replace bactrim, 171,... Start Date: 05/28/20 Stop Date: 05/18/22 Status: Ordered azithromycin 500 mg oral tablet 2 tablet = 1,000 mg, By Mouth, Once, take both tablets at once, # 2 tablet, 0 Refills, Soft Stop, 06/27/20 17:56:00 EDT, Tablet, [facility] [id number], 171, cm, 05/28/20 16:01:00 EDT, Height, 59.5, kg, 12/29/19 15:28:00 EDT, D... Start Date: 06/27/20 Status: Ordered Biktarvy oral tablet 1 tablet, By Mouth, Daily, for 30 days, # 30 tablet, 11 Refills, Hard Stop 05/23/21 16:35:00 EDT, 05/28/20 16:35:00 EDT, Tablet, [facility] [id number], 1 tablet By Mouth Daily,x30 days, 171, cm, 05/28/20 16:01:00 EDT, Height,... Start Date: 05/28/20 Stop Date: 05/23/21 Status: Ordered Colace sodium 100 mg oral capsule 100 mg, 1, capsule, By Mouth, 2 times a day, PRN, # 60 capsule, Refills 11, Tot. Refills 11, Maintenance, for constipation, 05/28/20 16:34:00 EDT, Route to Pharmacy Electronically, [facility] [id number], 171, cm, 05/28/20 16:0... Start Date: 05/28/20 [...] Gm, 11 Refills, Maintenance, 05/28/20 16:37:00 EDT, [facility] [id number], use sparingly on face, use on all other affected areas, 171, cm, ... Start Date: 05/28/20 Status: Ordered influenza virus vaccine, inactivated adjuvanted preservative-free quadrivalent intramuscular susp See Instructions, none, # 1 each, 0 Refills, Maintenance, 05/30/20 9:27:00 EDT, [facility], none, 171, cm, 05/28/20 16:01:00 EDT, Height, 59.5, kg, 12/29/19 15:28:00 EDT, Dry Weight Start Date: 05/30/20 Status: Ordered ketoconazole 2% topical cream 1 application, Topically, 2 times a day, for 28 days, use on the face, # 60 Gm, 11 Refills, Acute 04/29/21 16:40:00 EDT, 05/28/20 16:40:00 EDT, Cream, [facility] [id number], 1 application Topically 2 times a day,x28 days,Instr... Start Date: 05/28/20 Stop Date: 04/29/21 Status: Ordered ketoconazole 2% topical shampoo 1 application, Topically, Daily, try daily for 5 days as a shampoo, # 120 mL, 11 Refills, Soft Stop, 05/28/20 16:37:00 EDT, Shampoo, [facility] [id number], 1 application Topically Daily,Instr:try daily for 5 days as a shampoo,... Start Date: 05/28/20 Status: Ordered lithium 300 mg oral capsule 2 capsule = 600 mg, By Mouth, 2 times a day, # 120 capsule, 2 Refills, Maintenance, 06/28/20 12:56:00 EDT, [facility] [id number], Increase in dose per Psychiatry, 171, cm, 05/28/20 16:01:00 EDT, Height, 59.5, kg, 12/29/19 15:2... Start Date: 06/28/20 Status: Ordered LORazepam 0.5 mg oral tablet 1 tablet = 0.5 mg, By Mouth, 2 times a day, PRN Anxiety, # 60 tablet, 2 Refills, Maintenance, 06/28/20 12:56:00 EDT, Tablet, [facility] [id number], 171, cm, 05/28/20 16:01:00EDT, Height, 59.5, kg, 12/29/19 15:28:00 EDT, Dry W... Start Date: 06/28/20 Status: Ordered Mavyret 100 mg-40 mg oral tablet 3 tablet, By Mouth, Daily, with food, # 252 tablet, 0 Refills, Maintenance, 07/08/20 15:34:00 EST, Tablet, [facility], 3 tablet By Mouth Daily,x12 week(s),Instr:with [...] 11 Refills, Maintenance, 12/03/20 12:50:00 EDT, Tablet, [facility] [id number], 173, cm, 07/17/20 19:29:00 EST, Height, 83.9, kg, 07/17/20 19:29:00 EST, Dry Weight Start Date: 12/03/20 Stop Date: 11/28/21 Status: Ordered multivitamin with minerals Calcium and Magnesium oral tablet 1 tablet, By Mouth, Daily, # 30 tablet, 11 Refills, Maintenance, 05/28/20 16:35:00 EDT, Tablet, [facility] [id number], 1 tablet By Mouth Daily, 171, cm, 05/28/20 16:01:00 EDT, Height, 59.5, kg, 12/29/19 15:28:00 EDT, Dry Weight Start Date: 05/28/20 Stop Date: 05/23/21 Status: Ordered Narcan 4 mg/0.1 mL nasal spray See Instructions, 4 mg Once may repeat every 2 to 3 minutes until patient responds, # 2 each, 1 Refills, Soft Stop, 08/24/19 9:41:00 EST, [place], [place] -, MAMADOU García to lease picker for Pt., 170, cm, 08/24/19 9:21:00 EST, Height, 66.36,... Start Date: 08/24/19 Status: Ordered Nicotine 2 mg gum 1 each = 2 mg, Chew, Every 2 hours, PRN as needed for smoking cessation, # 160 each, 3 Refills, Maintenance, 05/28/20 16:51:00 EDT, Gum, [facility] [id number], 171, cm, 05/28/20 16:01:00 EDT, Height, 59.5, kg, 12/29/19 15:28:0... Start Date: 05/28/20 Status: Ordered ondansetron 4 mg oral tablet, disintegrating 1 tablet = 4 mg, By Mouth, Every 8 hours, PRN as needed for nausea/vomiting, # 12 tablet, 0 Refills, Maintenance, 12/08/20 19:19:00 EDT, DIS Tablet, [facility] [id number], Partial fill upon patient request if the [...] Soft Stop, 05/30/20 9:25:00 EDT, Suspension, [facility]., 0.5 mL Intramuscular Once, 171, cm, 05/28/20 16:01:00 EDT, Height, 59.5, kg,12/29/19 15:28:00 EDT, Dry Weight Start Date: 05/30/20 Status: Ordered polyethylene glycol 3350 oral powder for reconstitution = 17 Gm, By Mouth, 2 times a day, PRN Constipation, dissolve in water before taking, # 527 Gm, 3 Refills, Maintenance, 11/28/19 9:42:00 EDT, REC Powder, [place], [place] -, 17 Gm By Mouth 2 times a day,x30 days,PRN:Constipation,Instr:... Start Date: 11/28/19 Stop Date: 03/27/20 Status: Ordered SEROquel 25 mg oral tablet 25 mg, 1, tablet, By Mouth, Daily at bedtime, # 30 tablet, Refills 2, Tot. Refills 2, Maintenance, 06/14/20 20:44:00 EDT, Route to Pharmacy Electronically, [facility]., 171, cm, 05/28/20 16:01:00 EDT, Height, 59.5, kg, 12/29/19 15:28:00... Start Date: 06/14/20 Stop Date: 09/12/20 Status: Ordered sildenafil 100 mg oral tablet 1 tablet = 100 mg, By Mouth, Daily, 1 hour before sexual activity, # 10 tablet, 5 Refills, Maintenance, 09/04/20 14:26:00 EST, Tablet, [place], [place] - [id number], Partial fill upon patient request if the prescription is for a sched... Start Date: 09/04/20 Status: Ordered sulfamethoxazole-trimethoprim 800 mg-160 mg oral tablet 3 tablet, By Mouth, 3 times a day, for 21 days, # 189 tablet, 0 Refills, Acute 12/29/20 19:10:00 EDT, 12/08/20 19:10:00 EDT, Tablet, [facility] - [place], [place] - [id number], Partial fill upon patient request if the prescription is for a schedul... 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 Sex
--- OUTSIDE RECORDS SUMMARY | 2023-07-12 20:10 | XMS_ITS | Continuity of Care Document ---
Author Name Unknown Organization [facility] Address [address] [place] [address]- Care Team Providers Care Fish Cutting Machine Operator Name Role Phone Conner QUEEN, Namrata Agarwal Primary Care Physician [facility]counter [facility] Date(s): 05/22/20 - 06/21/20 [facility] [address] [place] [id number] [facility] Allergies, Adverse Reactions, Alerts Substance Reaction Severity [...] 05/28/20 16:31:00 EDT, Route to Pharmacy Electronically, [facility] [id number], 171, cm, 05/28/20 16:01:00 EDT, Height, 59.5, kg, 12/29/19... Start Date: 05/28/20 Status: Ordered atovaquone 750 mg/5 mL oral suspension 10 mL = 1,500 mg, By Mouth, Daily, for 60 days, # 600 mL, 11 Refills, Acute 05/18/22 16:35:00 EDT, 05/28/20 16:35:00 EDT, Suspension, [facility] [id number], Pls cancel bactrim prescription. Atovaquone to replace bactrim, 171,... Start Date: 05/28/20 Stop Date: 05/18/22 Status: Ordered Biktarvy oral tablet 1 tablet, By Mouth, Daily, for 30 days, # 30 tablet, 11 Refills, Hard Stop 05/23/21 16:35:00 EDT, 05/28/20 16:35:00 EDT, Tablet, [facility] [id number], 1 tablet By Mouth Daily,x30 days, 171, cm, 05/28/20 16:01:00 EDT, Height,... Start Date: 05/28/20 Stop Date: 05/23/21 Status: Ordered Colace sodium 100 mg oral capsule 100 mg, 1, capsule, By Mouth, 2 times a day, PRN, # 60 capsule, Refills 11, Tot. Refills 11, Maintenance, for constipation, 05/28/20 16:34:00 EDT, Route to Pharmacy Electronically, [facility] [id number], 171, cm, 05/28/20 16:0... Start Date: 05/28/20 Status: Ordered gabapentin 100 mg oral capsule 200 mg, 2, capsule, By Mouth, 3 times a day, # 180 capsule, Refills 1, Tot. Refills 1, Maintenance,05/07/20 16:16:00 EDT, Route to Pharmacy Electronically, [facility] [id number], 171, cm, 03/26/20 8:54:00 EDT, Height, 59.5, k... Start Date: 05/07/20 Stop Date: 09/04/20 Status: Ordered hydrocortisone 0.5% topical cream See Instructions, use sparingly on face, use on all other affected areas, # 28 Gm, 11 Refills, Maintenance, 05/28/20 16:37:00 EDT, [facility] [id number], use sparingly on face, use on all other affected areas, 171, cm, 2... Start Date: 05/28/20 Status: Ordered influenza virus vaccine, inactivated adjuvanted preservative-free quadrivalent intramuscular susp See Instructions, none, # 1 each, 0 Refills, Maintenance, 05/30/20 9:27:00 EDT, [facility], none, 171, cm, 05/28/20 16:01:00 EDT, Height, 59.5, kg, 12/29/19 15:28:00 EDT, Dry Weight Start Date: 05/30/20 Status: Ordered ketoconazole 2% topical cream 1 application, Topically, 2 times a day, for 28 days, use on the face, # 60 Gm, 11 Refills, Acute 04/29/21 16:40:00 EDT, 05/28/20 16:40:00 EDT, Cream, [facility] [id number], 1 application Topically 2 times a day,x28 days,Instr... Start Date: 05/28/20 Stop Date: 04/29/21 Status: Ordered ketoconazole 2% topical shampoo 1 application, Topically, Daily, try daily for 5 days as a shampoo, # 120 mL, 11 Refills, Soft Stop, 05/28/20 16:37:00 EDT, Shampoo, [facility] [id number], 1 application Topically Daily,Instr:try daily for 5 days as a shampoo,... Start Date: 05/28/20 Status: Ordered lithium 300 mg oral capsule 2 capsule = 600 mg, By Mouth, 2 times a day, # 120 capsule, 1 Refills, Maintenance, 05/07/20 16:16:00 EDT, [facility] [id number], Increase in dose per Psychiatry, 171, cm, 03/26/20 8:54:00 EDT, Height, 59.5, kg, 12/29/19 15:28... Start Date: 05/07/20 Status: Ordered LORazepam 0.5 mg oral tablet 1 tablet = 0.5 mg, By Mouth, 2 times a day, PRN Anxiety, # 60 tablet, 1 Refills, Maintenance, 05/07/20 16:16:00 EDT, Tablet, [facility] [id number], 171, cm, 03/26/20 8:54:00 EDT, Height, 59.5, [...] 5 Refills, Maintenance, 05/28/20 16:35:00 EDT, Tablet, [facility] [id number], 171, cm, 05/28/20 16:01:00 EDT, Height, 59.5, kg, 12/29/19 15:28:00 EDT, Dry Weight Start Date: 05/28/20 Stop Date: 11/24/20 Status: Ordered multivitamin with minerals Calcium and Magnesium oral tablet 1 tablet, By Mouth, Daily, # 30 tablet, 11 Refills, Maintenance, 05/28/20 16:35:00 EDT, Tablet, [facility] [id number], 1 tablet By Mouth Daily, 171, cm, 05/28/20 16:01:00 EDT, Height, 59.5, kg, 12/29/19 15:28:00 EDT, Dry Weight Start Date: 05/28/20 Stop Date: 05/23/21 Status: Ordered Narcan 4 mg/0.1 mL nasal spray See Instructions, 4 mg Once may repeat every 2 to 3 minutes until patient responds, # 2 each, 1 Refills, Soft Stop, 08/24/19 9:41:00 EST, [place], [place] -, MAMADOU García to flower buncher or picker for Pt., 170, cm, 08/24/19 9:21:00 EST, Height, 66.36,... Start Date: 08/24/19 Status: Ordered Nicotine 2 mg gum 1 each = 2 mg, Chew, Every 2 hours, PRN as needed for smoking cessation, # 160 each, 3 Refills, Maintenance, 05/28/20 16:51:00 EDT, Gum, [facility] [id number], 171, cm, 05/28/20 16:01:00 EDT, Height, 59.5, kg, 12/29/19 15:28:0... Start Date: 05/28/20 Status: Ordered Nicotine 7 mg/24 hour patch 1 patch, Topically, Daily, for 30 days, # 30 patch, 0 Refills, Acute 06/27/20 16:51:00 EDT, 05/28/20 16:51:00 EDT, Patch, [place], [place] - [id number], 1 patch Topically Daily,x30 days, 171, cm, [...] Refills, Soft Stop, 05/30/20 9:25:00 EDT, Suspension, [facility] 0.5 mL Intramuscular Once, 171, cm, 05/28/20 16:01:00 EDT, Height, 59.5, kg,12/29/19 15:28:00 EDT, Dry Weight Start Date: 05/30/20 Status: Ordered polyethylene glycol 3350 oral powder for reconstitution = 17 Gm, By Mouth, 2 times a day, PRN Constipation, dissolve in water before taking, # 527 Gm, 3 Refills, Maintenance, 11/28/19 9:42:00 EDT, REC Powder, [place], [place] -, 17 Gm By Mouth 2 times a day,x30 days,PRN:Constipation,Instr:... Start Date: 11/28/19 Stop Date: 03/27/20 Status: Ordered SEROquel 25 mg oral tablet 25 mg, 1, tablet, By Mouth, Daily at bedtime, # 30 tablet, Refills 2, Tot. Refills 2, Maintenance, 06/14/20 20:44:00 EDT, Route to Pharmacy Electronically, [facility] 171, cm, 05/28/20 16:01:00 EDT, Height, 59.5, kg, 12/29/19 15:28:00... Start Date: 06/14/20 Stop Date: 09/12/20 Status: Ordered Viagra 50 mg oral tablet 1 tablet = 50 mg, By Mouth, Daily, PRN sexual activity, 1 hour before sexual activity, # 10 tablet,11 Refills, Maintenance, 05/29/20 20:14:00 EDT, Tablet, [facility] [place] [place] - [id number], 171, cm, 05/28/20 16:01:00 EDT, Height, 59.5, k... 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 Sex
--- OUTSIDE RECORDS SUMMARY | 2023-07-12 20:10 | XMS_ITS | Continuity of Care Document ---
Author Name Unknown Organization [facility] Address [address] [place] [address]- Care Team Providers Care Plastics Fabricator Or Welder Name Role Phone Conner QUEEN, Namrata Agarwal Primary Care Physician [phone] Encounter [facility] Date(s): 11/13/21 - 12/13/21 [facility] [address], [place] [address] Allergies, Adverse Reactions, Alerts Substance [...] 13:14:00 EST, Powder, Route to Pharmacy Electronically, [id number], [facility] Start Date: 08/21/21 Stop Date: 01/18/22 Status: Ordered Albuterol (Eqv-ProAir HFA) 90 mcg/inh inhalation aerosol 2 puffs, Inhalation, Every 6 hours, # 8.5 Gm, 11 Refills, 08/25/21 12:34:00 EST, [facility] [id number], 25, 2 puffs Inhalation Every 6 hours, 173, cm, 08/25/21 12:31:00 EST, Height, 84, kg, 04/19/21 2:36:00 EDT, Dry Weight Start Date: 08/25/21 Status: Ordered amLODIPine 10 mg oral tablet 10 mg, 1, tablet, By Mouth, Daily, # 30 tablet, Refills 11, Tot. Refills 11, Maintenance, 08/27/21 16:46:00 EST, Route to Pharmacy Electronically, [facility] [id number], 173,cm, 08/25/21 12:31:00 EST, Height, 84, kg, 04/19/21... Start Date: 08/27/21 Status: Ordered aspirin 81 mg oral tablet, chewable 81 mg, 1, tablet, By Mouth, Daily, # 120 tablet, Refills 3, Tot. Refills 3, Maintenance, 10/02/21 11:47:00 EST, Route to Pharmacy Electronically, [facility] [id number], Partial fill upon patient request if the prescription is... Start Date: 10/02/21 Stop Date: 01/25/23 Status: Ordered atorvastatin 80 mg oral tablet 1 tablet = 80 mg, By Mouth, Daily, # 30 tablet, 11 Refills, Maintenance, 11/07/21 14:34:00 EST, Tablet, [facility] [id number], Partial fill upon patient request if the prescription is for a schedule II opioid drug., 170, cm, 0... Start Date: 11/07/21 Status: Ordered atovaquone 750 mg/5 mL oral suspension 10 mL = 1,500 mg, By Mouth, Daily, for 60 days, # 600 mL, 11 Refills, Acute 10/28/23 14:35:00 EST, 11/07/21 14:35:00 EST, Suspension, [facility] [id number], Pls cancel bactrim prescription. Atovaquone to replace bactrim, 170,... Start Date: 11/07/21 Stop Date: 10/28/23 Status: Ordered Biktarvy oral tablet 1 tablet, By Mouth, Daily, # 30 tablet, 11 Refills, [facility], 30, TAKE ONE TABLET BY [...] 12/02/21 16:54:00 EDT, Route to Pharmacy Electronically, [facility] [place], [place] - [id number], Partial fill upon pilar... Start Date: 12/02/21 [...] FOR CONSTIPATION, # 60 each, 2 Refills, [facility], 170, cm, 10/10/21 13:45:00 EST, Height, 110, kg, 09/29/21 21:14:00 EST, Dry Weight Start Date: 12/01/21 Status: Ordered hydrocortisone 0.5% topical cream See Instructions, use sparingly on face, use on all other affected areas, # 28 Gm, 11 Refills, Maintenance, 03/07/21 6:50:00 EDT, [facility] [id number], use sparingly on face, use on all other affected areas, 174, cm, 01/13/21... Start Date: 03/07/21 Status: Ordered Incruse Ellipta 62.5 mcg/inh inhalation powder 1 puffs, Inhalation, Every 24 hours, doses should be taken AT least 24 HOURS APART, # 30 Unknown, 11 Refills, 08/25/21 12:34:00 EST, [facility] [id number], 173, cm, 08/25/21 12:31:00 EST, Height, 84, kg, 04/19/21 2:36:00 EDT,... Start Date: 08/25/21 Status: Ordered ketoconazole 2% topical cream 1 application, Topically, Daily, # 30 Gm, 11 Refills, Maintenance, 12/02/21 16:56:00 EDT, [facility] [id number], 1 application Topically Daily, 170, cm, 10/10/21 [...] 0 Refills, Maintenance, 11/11/21 17:22:00 EST, Tablet, [facility] [id number], 170, cm, 10/10/21 13:45... Start Date: 11/11/21 Stop Date: 12/11/21 Status: Ordered multivitamin with minerals Calcium and Magnesium oral tablet 1 tablet, By Mouth, Daily, # 30 tablet, 11 Refills, Maintenance, 03/07/21 6:51:00 EDT, Tablet, [facility] [id number], 1 tablet By Mouth Daily, 174, cm, 01/13/21 8:20:00 EDT, Height, 93, kg, 01/08/21 18:17:00 EDT, Dry Weight Start Date: 03/07/21 Status: Ordered Narcan 4 mg/0.1 mL nasal spray See Instructions, 4 mg Once may repeat every 2 to 3 minutes until patient responds, # 2 each, 1 Refills, Soft Stop, 08/24/19 9:41:00 EST, [place], [place] -, MAMADOU García to picking tech for Pt., 170, cm, 08/24/19 9:21:00 EST, Height, 66.36,... Start Date: 08/24/19 Status: Ordered Nicotine 2 mg gum 1 each = 2 mg, Chew, Every 2 hours, PRN as needed for smoking cessation, for 4 week(s), # 160 each,11 Refills, Acute 09/11/22 12:53:00 EST, 10/10/21 12:53:00 EST, Gum, [facility] [id number], Partial fill upon patient request... Start Date: [...] Refills, Maintenance, 08/21/21 13:33:00 EST, DIS Tablet, [facility] [id number], Partial fill upon patient request if the [...] 10/02/21 11:47:00 EST, Route to Pharmacy Electronically, [facility] [id number], Partial fill upon patient request if the prescription is f... Start Date: 10/02/21 Stop Date: 12/31/21 Status: Ordered polyethylene glycol 3350 oral powder for reconstitution See Instructions, DISSOLVE 17grams powder IN WATER BEFORE drinking 2 (two) times a day NEEDED FOR CONSTIPATION, # 510 Gm, 11 Refills, [facility], 30, DISSOLVE 17grams powder IN WATER BEFORE drinking 2 (two) times a day NEEDED FOR CONSTIPATI... Start Date: 09/03/21 Status: Ordered polyethylene glycol 3350 oral powder for reconstitution = 17 Gm, By Mouth, 2 times a day, PRN Constipation, dissolve in water before taking, # 527 Gm, 3 Refills, Maintenance, 12/02/21 16:55:00 EDT, REC Powder, [facility] [id number], 17 Gm By Mouth 2 times a day,x30 days,PRN:Constip... Start Date: 12/02/21 Stop Date: 04/01/22 Status: Ordered rOPINIRole 0.5 mg oral tablet 1 tablet = 0.5 mg, By Mouth, Daily at bedtime, 1 to 3 hours before bedtime, # 30 tablet, 11 Refills, Maintenance, 08/21/21 13:32:00 EST, Tablet, [facility] [id number], Partial fill upon patient request if the prescription is f... Start Date: 08/21/21 Status: Ordered Senna 8.6 mg oral tablet 1 or 2 tablets, By Mouth, Daily at bedtime, PRN, # 60 tablet, Refills 5, Tot. Refills 5, Maintenance, Constipation, 10/10/21 14:43:00 EST, Route to Pharmacy Electronically, [facility] [id number] Tablet, Partial fill upon patie... Start Date: 10/10/21 Status: Ordered sildenafil 100 mg oral tablet 1 tablet = 100 mg, By Mouth, Daily, 1 hour before sexual activity, # 20 tablet, 11 Refills, Maintenance, 03/07/21 6:49:00 EDT, Tablet, [facility] [id number], Partial fill upon patient request if the prescription is for a sched... Start Date: 03/07/21 Status: Ordered varenicline 1mg tablet 1 tablet = 1 mg, By Mouth, Daily, 0.5 tab daily x 3 days then 0.5 tab BID x 3 days then 1 tab BID, # 30 tablet, 4 Refills, Maintenance, 11/13/21 15:15:00 EST, Tablet, [facility] [id number], Partial fill upon patient request if... 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
--- OUTSIDE RECORDS SUMMARY | 2023-07-12 20:10 | XMS_ITS | Continuity of Care Document ---
Author Name Unknown Organization [facility] Address [address] [place] [address]- Care Team Providers Care Medical Equipment Sales Name Role Phone Namrata Prieto MD Primary Care Physician Encounter [facility] Date(s): 10/07/20 - 12/28/20 [facility] [address], [place] [address] Attending Physician: Isidoro Neely MD Admitting Physician: [...] 10/28/20 9:30:00 EST, Route to Pharmacy Electronically, [place], [place] - [id number], 173, cm, 07/17/20 19:29:00 EST, Height, 83.9, kg, 07/17/20... Start Date: 10/28/20 Status: Ordered atovaquone 750 mg/5 mL oral suspension 10 mL = 1,500 mg, By Mouth, Daily, for 60 days, # 600 mL, 11 Refills, Acute 05/18/22 16:35:00 EDT, 05/28/20 16:35:00 EDT, Suspension, [place], [place] - [id number], Pls cancel bactrim prescription. Atovaquone to replace bactrim, 171,... Start Date: 05/28/20 Stop Date: 05/18/22 Status: Ordered azithromycin 500 mg oral tablet 2 tablet = 1,000 mg, By Mouth, Once, take both tablets at once, # 2 tablet, 0 Refills, Soft Stop, 06/27/20 17:56:00 EDT, Tablet, [facility] [id number], 171, cm, 05/28/20 16:01:00 EDT, Height, 59.5, kg, 12/29/19 15:28:00 EDT, D... Start Date: 06/27/20 Status: Ordered Biktarvy oral tablet 1 tablet, By Mouth, Daily, for 30 days, # 30 tablet, 11 Refills, Hard Stop 05/23/21 16:35:00 EDT, 05/28/20 16:35:00 EDT, Tablet, [facility] [id number], 1 tablet By Mouth Daily,x30 days, 171, cm, 05/28/20 16:01:00 EDT, Height,... Start Date: 05/28/20 Stop Date: 05/23/21 Status: Ordered Colace sodium 100 mg oral capsule 100 mg, 1, capsule, By Mouth, 2 times a day, PRN, # 60 capsule, Refills 11, Tot. Refills 11, Maintenance, for constipation, 05/28/20 16:34:00 EDT, Route to Pharmacy Electronically, [facility] [id number], 171, cm, 05/28/20 16:0... Start Date: 05/28/20 [...] Gm, 11 Refills, Maintenance, 05/28/20 16:37:00 EDT, [facility] [id number], use sparingly on face, use on all other affected areas, 171, cm, ... Start Date: 05/28/20 Status: Ordered influenza virus vaccine, inactivated adjuvanted preservative-free quadrivalent intramuscular susp See Instructions, none, # 1 each, 0 Refills, Maintenance, 05/30/20 9:27:00 EDT, [facility], none, 171, cm, 05/28/20 16:01:00 EDT, Height, 59.5, kg, 12/29/19 15:28:00 EDT, Dry Weight Start Date: 05/30/20 Status: Ordered ketoconazole 2% topical cream 1 application, Topically, 2 times a day, for 28 days, use on the face, # 60 Gm, 11 Refills, Acute 04/29/21 16:40:00 EDT, 05/28/20 16:40:00 EDT, Cream, [facility] [id number], 1 application Topically 2 times a day,x28 days,Instr... Start Date: 05/28/20 Stop Date: 04/29/21 Status: Ordered ketoconazole 2% topical shampoo 1 application, Topically, Daily, try daily for 5 days as a shampoo, # 120 mL, 11 Refills, Soft Stop, 05/28/20 16:37:00 EDT, Shampoo, [facility] [id number], 1 application Topically Daily,Instr:try daily for 5 days as a shampoo,... Start Date: 05/28/20 Status: Ordered lithium 300 mg oral capsule 2 capsule = 600 mg, By Mouth, 2 times a day, # 120 capsule, 2 Refills, Maintenance, 06/28/20 12:56:00 EDT, [facility] [id number], Increase in dose per Psychiatry, 171, cm, 05/28/20 16:01:00 EDT, Height, 59.5, kg, 12/29/19 15:2... Start Date: 06/28/20 Status: Ordered LORazepam 0.5 mg oral tablet 1 tablet = 0.5 mg, By Mouth, 2 times a day, PRN Anxiety, # 60 tablet, 2 Refills, Maintenance, 06/28/20 12:56:00 EDT, Tablet, [facility], [facility] [id number], 171, cm, 05/28/20 16:01:00EDT, Height, 59.5, kg, 12/29/19 15:28:00 EDT, Dry W... Start Date: 06/28/20 Status: Ordered Mavyret 100 mg-40 mg oral tablet 3 tablet, By Mouth, Daily, with food, # 252 tablet, 0 Refills, Maintenance, 07/08/20 15:34:00 EST, Tablet, [facility], 3 tablet By Mouth Daily,x12 [...] 11 Refills, Maintenance, 12/03/20 12:50:00 EDT, Tablet, [facility], [facility] [id number], 173, cm, 11/11/20 19:29:00 EST, Height, 83.9, kg, 07/17/20 19:29:00 EST, Dry Weight Start Date: 12/03/20 Stop Date: 11/28/21 Status: Ordered multivitamin with minerals Calcium and Magnesium oral tablet 1 tablet, By Mouth, Daily, # 30 tablet, 11 Refills, Maintenance, 05/28/20 16:35:00 EDT, Tablet, [facility] [id number], 1 tablet By Mouth Daily, 171, cm, 05/28/20 16:01:00 EDT, Height, 59.5, kg, 12/29/19 15:28:00 EDT, Dry Weight Start Date: 05/28/20 Stop Date: 05/23/21 Status: Ordered Narcan 4 mg/0.1 mL nasal spray See Instructions, 4 mg Once may repeat every 2 to 3 minutes until patient responds, # 2 each, 1 Refills, Soft Stop, 08/24/19 9:41:00 EST, [place], [place] -, MAMADOU García to sweet pickled fruit maker for Pt., 170, cm, 08/24/19 9:21:00 EST, Height, 66.36,... Start Date: 08/24/19 Status: Ordered Nicotine 2 mg gum 1 each = 2 mg, Chew, Every 2 hours, PRN as needed for smoking cessation, # 160 each, 3 Refills, Maintenance, 05/28/20 16:51:00 EDT, Gum, [facility] [id number], 171, cm, 05/28/20 16:01:00 EDT, Height, 59.5, kg, 12/29/19 15:28:0... Start Date: 05/28/20 Status: Ordered ondansetron 4 mg oral tablet, disintegrating 1 tablet = 4 mg, By Mouth, Every 8 hours, PRN as needed for nausea/vomiting, # 12 tablet, 0 Refills, Maintenance, 12/08/20 19:19:00 EDT, DIS Tablet, [facility] [id number], Partial fill upon patient request if the [...] Refills, Soft Stop, 05/30/20 9:25:00 EDT, Suspension, [facility], 0.5 mL Intramuscular Once, 171, cm, 05/28/20 16:01:00 EDT, Height, 59.5, kg,12/29/19 15:28:00 EDT, Dry Weight Start Date: 05/30/20 Status: Ordered polyethylene glycol 3350 oral powder for reconstitution = 17 Gm, By Mouth, 2 times a day, PRN Constipation, dissolve in water before taking, # 527 Gm, 3 Refills, Maintenance, 11/28/19 9:42:00 EDT, REC Powder, [place], [place] -, 17 Gm By Mouth 2 times a day,x30 days,PRN:Constipation,Instr:... Start Date: 11/28/19 Stop Date: 03/27/20 Status: Ordered SEROquel 25 mg oral tablet 25 mg, 1, tablet, By Mouth, Daily at bedtime, # 30 tablet, Refills 2, Tot. Refills 2, Maintenance, 06/14/20 20:44:00 EDT, Route to Pharmacy Electronically, [facility] 171, cm, 05/28/20 16:01:00 EDT, Height, 59.5, kg, 12/29/19 15:28:00... Start Date: 06/14/20 Stop Date: 09/12/20 Status: Ordered sildenafil 100 mg oral tablet 1 tablet = 100 mg, By Mouth, Daily, 1 hour before sexual activity, # 10 tablet, 5 Refills, Maintenance, 09/04/20 14:26:00 EST, Tablet, [place], [place] - [id number], Partial fill upon patient request if the prescription is for a sched... Start Date: 09/04/20 Status: Ordered sulfamethoxazole-trimethoprim 800 mg-160 mg oral tablet 3 tablet, By Mouth, 3 times a day, for 21 days, # 189 tablet, 0 Refills, Acute 12/29/20 19:10:00 EDT, 12/08/20 19:10:00 EDT, Tablet, [facility] [place], [place] - [id number], Partial fill upon patient request if the prescription is for a schedul... 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 Sex
--- OUTSIDE RECORDS SUMMARY | 2023-07-12 20:10 | XMS_ITS | Continuity of Care Document ---
Author Name Unknown Organization [facility] y Address [address] [place] [address]- Care Team Providers Care Flash Designer Name Role Phone Long ROADWAY DESIGNER, Giovanna Bernard Primary Care Physician Encounter [facility] Date(s): 10/24/19 - 12/21/19 [facility] [address] [place] [address]- Attending Physician: Namrata Prieto MD Admitting Physician: [...] 11/28/19 9:43:00 EDT, Route to Pharmacy Electronically, [facility] [place], [place] -, 172, cm, 09/26/19 8:57:00 EST, Height, 66.3, kg, 09/11/19 13:26:00 EST,... Start Date: 11/28/19 Stop Date: 05/26/20 Status: Ordered atovaquone 750 mg/5 mL oral suspension 10 mL = 1,500 mg, By Mouth, Daily, for 60 days, # 600 mL, 5 Refills, Acute 11/22/20 9:44:00 EDT, 11/28/19 9:44:00 EDT, Suspension, [facility] [place], [place] -, Pls cancel bactrim prescription. Atovaquone to replace bactrim, 172, cm, 09/26/19 8... Start Date: 11/28/19 Stop Date: 11/22/20 Status: Ordered Biktarvy oral tablet 1 tablet, By Mouth, Daily, # 30 tablet, 5 Refills, Maintenance, 08/24/19 9:40:00 EST, Tablet, [place], [place] -, 1 tablet By Mouth Daily,x30 [...] 09/26/19 12:05:00 EST, Route to Pharmacy Electronically, [place], [place] -, 172, cm, 09/26/19 8:57:00 EST, [place]... Start Date: 09/26/19 Status: Ordered fluconazole 200 mg oral tablet 1 tablet = 200 mg, By Mouth, Daily, for 28 days, # 28 tablet, 5 Refills, Acute 02/08/20 9:42:00 EDT, 08/24/19 9:42:00 EST, Tablet, [place], [place] -, Decrease in dose., 170, cm, 08/24/19 9:21:00 EST, Height, 66.36, kg, 03/10/19 16:51... Start Date: 08/24/19 Stop Date: 02/08/20 Status: Ordered gabapentin 100 mg oral capsule 200 mg, 2, capsule, By Mouth, 3 times a day, # 180 capsule, Refills 3, Tot. Refills 3, Maintenance,11/28/19 9:44:00 EDT, Route to Pharmacy Electronically, [place], [place] -, 172, cm, 09/26/19 8:57:00 EST, Height, 66.3, kg, 09/11/19... Start Date: 11/28/19 Stop Date: 03/27/20 Status: Ordered hydrocortisone 0.5% topical cream See Instructions, apply in a thin film to the hands and rub in gently 3 times a day for 5 days, # 28 Gm, 0 Refills, Acute 12/20/20 12:12:00 EDT, 12/21/19 11:57:00 EDT, [place], [place] -, apply in a thin film to the hands and rub in g... Start Date: 12/21/19 Stop Date: 12/20/20 Status: Ordered ketoconazole 2% topical shampoo 1 application, Topically, Daily, try daily for 5 days as a shampoo, # 120 mL, 3 Refills, Soft Stop,12/21/19 11:58:00 EDT, Shampoo, [place], [place] -, 1 application Topically Daily,Instr:try daily for 5 days as a shampoo, 172, cm, 01... Start Date: 12/21/19 Status: Ordered lithium 300 mg oral capsule 2 capsule = 600 mg, By Mouth, Daily at bedtime, # 60 capsule, 3 Refills, Maintenance, 11/28/19 9:41:00 EDT, [place], [place] -, 172, cm, 09/26/19 8:57:00 EST, [...] tablet, 5 Refills, Maintenance, 11/28/19 9:41:00EDT, Tablet, [place], [place] -, 172, cm, 09/26/19 8:57:00 EST, Height, 66.3, kg, 09/11/19 13:26:00 EST, Dry Weight Start Date: 11/28/19 Stop Date: 05/26/20 Status: Ordered multivitamin with minerals Calcium and Magnesium oral tablet 1 tablet, By Mouth, Daily, # 30 tablet, 5 Refills, Maintenance, 09/26/19 12:05:00 EST, Tablet, [place], [place] -, 1 tablet By Mouth Daily,x30 days, 172, cm, 09/26/19 8:57:00 EST, Height, 66.3, kg, 09/11/19 13:26:00 EST, Dry Weight Start Date: 09/26/19 Stop Date: 03/24/20 Status: Ordered Narcan 4 mg/0.1 mL nasal spray See Instructions, 4 mg Once may repeat every 2 to 3 minutes until patient responds, # 2 each, 1 Refills, Soft Stop, 08/24/19 9:41:00 EST, [place], [place] -, VNA Raquel to forklift picker for Pt., 170, cm, 08/24/19 9:21:00 [...] Refills, Maintenance, 11/28/19 9:42:00 EDT, REC Powder, [place], [place] -, 17 Gm By Mouth 2 [...]
--- OUTSIDE RECORDS SUMMARY | 2023-07-12 20:10 | XMS_ITS | Continuity of Care Document ---
Author Name Unknown Organization [facility] Address [address] [place] [address]- Care Team Providers Care Thread Winder Automatic Name Role Phone Conner QUEEN, Namrata Agarwal Primary Care Physician [phone] Encounter [facility] Date(s): 09/24/20 - 10/24/20 [facility] [address] [place] [id number]- Encounter Diagnosis Erectile dysfunction(Discharge Diagnosis) - 05/29/20 Depression - [facility](Discharge Diagnosis) - 05/29/20 Attending Physician: Angeles De La Rosa Admitting Physician: AdmtrAngeles Referring Physician: Admtr, [id number] [...] 05/28/20 16:31:00 EDT, Route to Pharmacy Electronically, [facility] [place], [place] - [id number], 171, cm, 05/28/20 16:01:00 EDT, Height, 59.5, kg, 12/29/19... Start Date: 05/28/20 Status: Ordered atovaquone 750 mg/5 mL oral suspension 10 mL = 1,500 mg, By Mouth, Daily, for 60 days, # 600 mL, 11 Refills, Acute 05/18/22 16:35:00 EDT, 05/28/20 16:35:00 EDT, Suspension, [facility] [id number], Pls cancel bactrim prescription. Atovaquone to replace bactrim, 171,... Start Date: 05/28/20 Stop Date: 05/18/22 Status: Ordered azithromycin 500 mg oral tablet 2 tablet = 1,000 mg, By Mouth, Once, take both tablets at once, # 2 tablet, 0 Refills, Soft Stop, 06/27/20 17:56:00 EDT, Tablet, [facility], [facility] [id number], 171, cm, 05/28/20 16:01:00 EDT, Height, 59.5, kg, 12/29/19 15:28:00 EDT, D... Start Date: 06/27/20 Status: Ordered Biktarvy oral tablet 1 tablet, By Mouth, Daily, for 30 days, # 30 tablet, 11 Refills, Hard Stop 05/23/21 16:35:00 EDT, 05/28/20 16:35:00 EDT, Tablet, [facility] [id number], 1 tablet By Mouth Daily,x30 days, 171, cm, 05/28/20 16:01:00 EDT, Height,... Start Date: 05/28/20 Stop Date: 05/23/21 Status: Ordered Colace sodium 100 mg oral capsule 100 mg, 1, capsule, By Mouth, 2 times a day, PRN, # 60 capsule, Refills 11, Tot. Refills 11, Maintenance, for constipation, 05/28/20 16:34:00 EDT, Route to Pharmacy Electronically, [facility] [id number], 171, cm, 05/28/20 16:0... Start Date: 05/28/20 [...] 06/28/20 13:01:00 EDT, Route to Pharmacy Electronically, [facility] [id number], 171, cm, 05/28/20 16:01:00 EDT, Height, 59.5... Start Date: 06/28/20 Status: Ordered hydrocortisone 0.5% topical cream See Instructions, use sparingly on face, use on all other affected areas, # 28 Gm, 11 Refills, Maintenance, 05/28/20 16:37:00 EDT, [facility] [id number], use sparingly on face, use on all other affected areas, 171, cm, ... Start Date: 05/28/20 Status: Ordered influenza virus vaccine, inactivated adjuvanted preservative-free quadrivalent intramuscular susp See Instructions, none, # 1 each, 0 Refills, Maintenance, 05/30/20 9:27:00 EDT, [facility], none, 171, cm, 05/28/20 16:01:00 EDT, Height, 59.5, kg, 12/29/19 15:28:00 EDT, Dry Weight Start Date: 05/30/20 Status: Ordered ketoconazole 2% topical cream 1 application, Topically, 2 times a day, for 28 days, use on the face, # 60 Gm, 11 Refills, Acute 04/29/21 16:40:00 EDT, 05/28/20 16:40:00 EDT, Cream, [facility] [id number], 1 application Topically 2 times a day,x28 days,Instr... Start Date: 05/28/20 Stop Date: 04/29/21 Status: Ordered ketoconazole 2% topical shampoo 1 application, Topically, Daily, try daily for 5 days as a shampoo, # 120 mL, 11 Refills, Soft Stop, 05/28/20 16:37:00 EDT, Shampoo, [facility], [facility] [id number], 1 application Topically Daily,Instr:try daily for 5 days as a shampoo,... Start Date: 05/28/20 Status: Ordered lithium 300 mg oral capsule 2 capsule = 600 mg, By Mouth, 2 times a day, # 120 capsule, 2 Refills, Maintenance, 06/28/20 12:56:00 EDT, [facility], [facility] [id number], Increase in dose per Psychiatry, 171, cm, 05/28/20 16:01:00 EDT, Height, 59.5, kg, 12/29/19 15:2... Start Date: 06/28/20 Status: Ordered LORazepam 0.5 mg oral tablet 1 tablet = 0.5 mg, By Mouth, 2 times a day, PRN Anxiety, # 60 tablet, 2 Refills, Maintenance, 06/28/20 12:56:00 EDT, Tablet, [facility], [facility] [id number], 171, cm, 05/28/20 16:01:00EDT, Height, 59.5, kg, 12/29/19 15:28:00 EDT, Dry W... Start Date: 06/28/20 Status: Ordered Mavyret 100 mg-40 mg oral tablet 3 tablet, By Mouth, Daily, with food, # 252 tablet, 0 Refills, Maintenance, 07/08/20 15:34:00 EST, Tablet, [facility], 3 tablet By Mouth [...] 5 Refills, Maintenance, 05/28/20 16:35:00 EDT, Tablet, [facility] [id number], 171, cm, 05/28/20 16:01:00 EDT, Height, 59.5, kg, 12/29/19 15:28:00 EDT, Dry Weight Start Date: 05/28/20 Stop Date: 11/24/20 Status: Ordered multivitamin with minerals Calcium and Magnesium oral tablet 1 tablet, By Mouth, Daily, # 30 tablet, 11 Refills, Maintenance, 05/28/20 16:35:00 EDT, Tablet, [facility] [id number], 1 tablet By Mouth Daily, 171, cm, 05/28/20 16:01:00 EDT, Height, 59.5, kg, 12/29/19 15:28:00 EDT, Dry Weight Start Date: 05/28/20 Stop Date: 05/23/21 Status: Ordered Narcan 4 mg/0.1 mL nasal spray See Instructions, 4 mg Once may repeat every 2 to 3 minutes until patient responds, # 2 each, 1 Refills, Soft Stop, 08/24/19 9:41:00 EST, [place], [place] -, MAMADOU García to flower buncher or picker for Pt., 170, cm, 08/24/19 9:21:00 EST, Height, 66.36,... Start Date: 08/24/19 Status: Ordered Nicotine 2 mg gum 1 each = 2 mg, Chew, Every 2 hours, PRN as needed for smoking cessation, # 160 each, 3 Refills, Maintenance, 05/28/20 16:51:00 EDT, Gum, [facility] [id number], 171, cm, 05/28/20 16:01:00 EDT, Height, 59.5, [...] Soft Stop, 05/30/20 9:25:00 EDT, Suspension, [facility], 0.5 mL Intramuscular Once, 171, cm, 05/28/20 16:01:00 EDT, Height, 59.5, kg,12/29/19 15:28:00 EDT, Dry Weight Start Date: 05/30/20 Status: Ordered polyethylene glycol 3350 oral powder for reconstitution = 17 Gm, By Mouth, 2 times a day, PRN Constipation, dissolve in water before taking, # 527 Gm, 3 Refills, Maintenance, 11/28/19 9:42:00 EDT, REC Powder, [place], [place] -, 17 Gm By Mouth 2 times a day,x30 days,PRN:Constipation,Instr:... Start Date: 11/28/19 Stop Date: 03/27/20 Status: Ordered SEROquel 25 mg oral tablet 25 mg, 1, tablet, By Mouth, Daily at bedtime, # 30 tablet, Refills 2, Tot. Refills 2, Maintenance, 06/14/20 20:44:00 EDT, Route to Pharmacy Electronically, [facility], 171, cm, 05/28/20 16:01:00 EDT, Height, 59.5, kg, 12/29/19 15:28:00... Start Date: 06/14/20 Stop Date: 09/12/20 Status: Ordered sildenafil 100 mg oral tablet 1 tablet = 100 mg, By Mouth, Daily, 1 hour before sexual activity, # 10 tablet, 5 Refills, Maintenance, 09/04/20 14:26:00 EST, Tablet, [place], [place] - [id number], Partial fill upon patient request if the prescription is for a sched... 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 Dehydration(Confirmed) Active Depression - Drew Oliver(Confirmed) Active Hemorrhoid(Confirmed) Active HIV disease - 01/2019(Confirmed) Active Erectile dysfunction(Confirmed) Active Pulmonary nodule(Confirmed) Active Opiate dependence(Confirmed) Active Emphysema/COPD(Confirmed) Active Tobacco use(Confirmed) Active Diagnosis Diagnosis Type Effective Dates Health Status Clinical Service Informant Erectile dysfunction Discharge Diagnosis 05/29/20 Depression - Drew Adair Discharge Diagnosis 05/29/20 Social History Social History Type Response Tobacco Other: 5- 6 ciggs/da y (has cut down); 1 - 1.5 ppd x 30 years. Sex
--- OUTSIDE RECORDS SUMMARY | 2023-07-12 20:10 | XMS_ITS | Continuity of Care Document ---
Author Name Unknown Organization [facility] y Address [address] [place] [address]- Care Team Providers Care Hotel Attendant Name Role Phone Conner QUEEN, Namrata Agarwal Primary Care Physician [phone] Encounter [facility] Date(s): 04/06/23 - 05/15/23 [facility] [address] [place], [place] [address] Attending Physician: Isidoro Neely MD Admitting Physician: Isidoro Neely MD Allergies, Adverse Reactions, Alerts Substance Reaction Severity Status Suboxone migraine (PO), fevers (IM) A ctive shellfish Active Bee Stings Active Latex rash Active Immunizations Given and [...] 02/16/23 10:45:00 EDT, Route to Pharmacy Electronically, [facility] [place], [place] - [id number], 173, cm, 01/21/23 11:36:00 EDT, Height, 93.18, kg, ... Start Date: 02/16/23 Status: Ordered aspirin 81 mg oral tablet, chewable 81 mg, 1, tablet, By Mouth, Daily, # 90 tablet, Refills 3, Tot. Refills 3, Maintenance, 02/16/23 10:45:00 EDT, Route to Pharmacy Electronically, [facility] [id number], Partial fill upon patient request if the prescription is f... Start Date: 02/16/23 Status: Ordered atorvastatin 80 mg oral tablet 1 tablet = 80 mg, By Mouth, Daily, # 90 tablet, 3 Refills, Maintenance, 02/16/23 10:45:00 EDT, Tablet, [facility] [id number], Partial fill upon patient request if the prescription is for a schedule II opioid drug., 173, cm, 05... Start Date: 02/16/23 Status: Ordered Biktarvy oral tablet 1 tablet, By Mouth, Daily, must get appt and labs for refills, # 30 tablet, 0 Refills, Maintenance,12/16/22 19:18:00 EDT, [facility] [id number], 30, 1 tablet By Mouth Daily,Instr:must get appt and labs for refills, 173, cm, 0... Start Date: 12/16/22 Status: Ordered Colace sodium 100 mg oral capsule 100 mg, 1, capsule, By Mouth, 2 times a day, PRN, # 180 capsule, Refills 3, Tot. Refills 3, Maintenance, for constipation, 02/16/23 10:45:00 EDT, Route to Pharmacy Electronically, [facility] [id number], Partial fill upon patie... Start Date: 02/16/23 Status: Ordered EpiPen 2-Devin 0.3 mg injectable kit = 0.3 mg, Intramuscular, Once, may repeat if necessary, # 2 each, 1 Refills, Soft Stop, 04/14/23 14:07:00 EDT, [facility] [id number], Partial fill upon patient request if theprescription is for a schedule II opioid drug., 176... Start Date: 04/14/23 Status: Ordered fluticasone-salmeterol 250 mcg-50 mcg inhalation powder 1, puffs, Inhalation, 2 times a day, # 3 each, Refills 3, Tot. Refills 3, Maintenance, 02/16/23 10:45:00 EDT, Powder, Route to Pharmacy Electronically, [id number], [place], [place] - [id number], 173, cm, 01/04... Start Date: 02/16/23 Status: Ordered Incruse Ellipta 62.5 mcg/inh inhalation powder 1 puffs, Inhalation, Every 24 hours, # 3 each, 3 Refills, Maintenance, 02/16/23 10:45:00 EDT, [place], [place] - [id number], 173, cm, 01/21/23 11:36:00 EDT, Height, 93.18, kg, 08/12/22 0:40:00 EST, Dry Weight Start Date: 02/16/23 Status: Ordered Yoe 200 mg, By Mouth, Daily at bedtime, [...] tablet, 3 Refills,Maintenance, 02/16/23 10:45:00 EDT, Tablet, [facility] [id number], Partialfill upon patient request if the prescription is fo... Start Date: 02/16/23 Status: Ordered Ventolin HFA 108 mcg/inh inhalation aerosol with adapter 2 puffs, Inhalation, 4 times a day, PRN for wheezing, # 3 each, 3 Refills, Maintenance, 02/16/23 10:45:00 EDT, Aerosol, [facility] [id number], Partial fill upon patient request if the prescription is for a schedule II opioid d... Start Date: 02/16/23 Status: Ordered Vitamin D3 1000 intl units oral capsule 1 capsule = 25 mcg, By Mouth, Daily, # 90 capsule, 3 Refills, Maintenance, 02/16/23 10:45:00 EDT, Capsule, [facility] [id number], D/c vitamin high dosed, 173, cm, 01/21/23 [...] 01/2019 Confirmed Active Depression - Olinda dawn, [facility] Confirmed Active Diastolic dysfunction 1 Confirmed [...] Team Personnel Name: Jadiel Watson RN Position: [facility] ED RN W/OE and Tasks Member Role: Primary Care Nurse Name: Dede Mccloud RN Position: [facility] RN Member Role: Primary Care Nurse Name: Judy Gonzales RN Position: [facility] RN Member Role: Primary Care Nurse Name: Jake Moon Position: [facility] RN Supv Member Role: Primary Care Nurse Name: Enma Manriquez RN Position: [facility] AMB Nurse Member Role: Primary Care Nurse Name: Zuhair Lopez RN Position: [facility] RN Member Role: Primary Care Nurse Name: Edie Bob RN Position: [facility] RN Member Role: Primary Care Nurse Name: Lisbet Gardiner RN Position: [facility] RN Member Role: Primary Care Nurse Name: Namrata Prieto MD Position: [facility] Physician - Primary Care Member Role: PCP Address: Address: [address] [place] [address]- Name: Carolina Valero RN Position: [facility] RN Member Role: Primary Care Nurse Name: Nishi San RN Position: [facility] RN Member Role: Primary Care Nurse Name: Micky Boyd RN Position: [facility] RN Member Role: Primary Care Nurse Name: Lauri Combs NP Position: Reference Physician Member Role: Primary Care Nurse Address: Address: [address] [place] [address] [address] Clinical [facility] [place] [address]- Name: Griselda Rand Position: [facility] RN Supv Member Role: Primary Care Nurse Care Team Related Persons Name: LUIS SNA Address: [place] [address] Name: BROOKE OWEN OR LAURA Address: home [address] [address] Name: KARYN OWEN Address: home [address] [place] [address] Name: DOMINGO LEONE Address: home [address] [place] [address]
--- OUTSIDE RECORDS SUMMARY | 2023-07-12 20:10 | XMS_ITS | Continuity of Care Document ---
Author Name Unknown Organization [facility] Address [address] [place] [address]- Care Team Providers Care Braiding Operator Name Role Phone Namrata Prieto MD Primary Care Physician [facility]counter [facility] Date(s): 07/23/21 - 09/04/21 [facility] [address] [place], [place] [address] Attending Physician: Namrata Prieto MD Admitting [...] 13:14:00 EST, Powder, Route to Pharmacy Electronically, [id number], [facility]... Start Date: 08/21/21 Stop Date: 01/18/22 Status: Ordered Albuterol (Eqv-ProAir HFA) 90 mcg/inh inhalation aerosol 2 puffs, Inhalation, Every 6 hours, # 8.5 Gm, 11 Refills, 08/25/21 12:34:00 EST, [facility] - [place], [place] - [id number], 25, 2 puffs Inhalation Every 6 hours, 173, cm, 08/25/21 12:31:00 EST, Height, 84, kg, 04/19/21 2:36:00 EDT, Dry Weight Start Date: 08/25/21 Status: Ordered amLODIPine 10 mg oral tablet 10 mg, 1, tablet, By Mouth, Daily, # 30 tablet, Refills 11, Tot. Refills 11, Maintenance, 08/27/21 16:46:00 EST, Route to Pharmacy Electronically, [place], [place] - [id number], 173,cm, 08/25/21 12:31:00 EST, Height, 84, kg, 04/19/21... Start Date: 08/27/21 Status: Ordered atovaquone 750 mg/5 mL oral suspension 10 mL = 1,500 mg, By Mouth, Daily, for 60 days, # 600 mL, 11 Refills, Acute 02/25/23 6:50:00 EDT, 03/07/21 6:50:00 EDT, Suspension, [place], [place] - [id number], Pls cancel bactrim prescription. Atovaquone to replace bactrim, 174, cm... Start Date: 03/07/21 Stop Date: 02/25/23 Status: Ordered Biktarvy oral tablet 1 tablet, By Mouth, Daily, # 30 tablet, 11 Refills, [facility], 30, TAKE ONE TABLET BY MOUTH [...] FOR CONSTIPATION, # 60 each, 5 Refills, [facility], 173, cm, 04/21/21 8:17:00 EDT, Height, 84, kg, 04/19/21 2:36:00 EDT, Dry Weight Start Date: 06/02/21 Status: Ordered hydrocortisone 0.5% topical cream See Instructions, use sparingly on face, use on all other affected areas, # 28 Gm, 11 Refills, Maintenance, 03/07/21 6:50:00 EDT, [facility] [id number], use sparingly on face, use on all other affected areas, 174, cm, 01/13/21... Start Date: 03/07/21 Status: Ordered Incruse Ellipta 62.5 mcg/inh inhalation powder 1 puffs, Inhalation, Every 24 hours, doses should be taken AT least 24 HOURS APART, # 30 Unknown, 11 Refills, 08/25/21 12:34:00 EST, [facility], [place] - [id number], 173, cm, 08/25/21 12:31:00 EST, Height, 84, kg, 04/19/21 2:36:00 EDT,... Start Date: 08/25/21 Status: Ordered ketoconazole 2% topical cream See Instructions, APPLY TO THE AFFECTED AREA TOPICALLY 2 (two) times a day. USE ON THE FACE, # 60 Gm, 11 Refills, [facility], 30, APPLY TO THE AFFECTED AREA [...] Maintenance, 03/07/21 6:51:00 EDT, Tablet, [facility] [id number], 1 tablet By Mouth Daily, 174, cm, 01/13/21 8:20:00 EDT, Height, 93, kg, 01/08/21 18:17:00 EDT, Dry Weight Start Date: 03/07/21 Status: Ordered Narcan 4 mg/0.1 mL nasal spray See Instructions, 4 mg Once may repeat every 2 to 3 minutes until patient responds, # 2 each, 1 Refills, Soft Stop, 08/24/19 9:41:00 EST, [facility], MAMADOU Raquel to pear picker for Pt., 170, cm, 08/24/19 9:21:00 EST, Height, 66.36,... Start Date: 08/24/19 Status: Ordered ondansetron 4 mg oral tablet, disintegrating 1 tablet = 4 mg, By Mouth, Every 8 hours, PRN as needed for nausea/vomiting, # 12 tablet, 11 Refills, Maintenance, 08/21/21 13:33:00 EST, DIS Tablet, [place], [place] - [id number], Partial fill upon patient request if the [...] 9:42:00 EDT, REC Powder, [facility] - [place], [place] -, 17 Gm By Mouth 2 times a day,x30 days,PRN:Constipation,Instr:... Start Date: 11/28/19 Stop Date: 03/27/20 Status: Ordered polyethylene glycol 3350 oral powder for reconstitution See Instructions, DISSOLVE 17grams powder IN WATER BEFORE drinking 2 (two) times a day NEEDED FOR CONSTIPATION, # 510 Gm, 11 Refills, [facility], 30, DISSOLVE 17grams powder IN WATER BEFORE drinking 2 (two) times a day NEEDED FOR CONSTIPATI... Start Date: 09/03/21 Status: Ordered rOPINIRole 0.5 mg oral tablet 1 tablet = 0.5 mg, By Mouth, Daily at bedtime, 1 to 3 hours before bedtime, # 30 tablet, 11 Refills, Maintenance, 08/21/21 13:32:00 EST, Tablet, [facility], [facility] [id number], Partial fill upon patient request if the prescription is f... Start Date: 08/21/21 Status: Ordered sildenafil 100 mg oral tablet 1 tablet = 100 mg, By Mouth, Daily, 1 hour before sexual activity, # 20 tablet, 11 Refills, Maintenance, 03/07/21 6:49:00 EDT, Tablet, [place], [place] - [id number], Partial fill upon patient request if the prescription is for a sched... 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
--- OUTSIDE RECORDS SUMMARY | 2023-07-12 20:10 | XMS_ITS | Continuity of Care Document ---
Author Name Unknown Organization [facility] Address [address] [place] [address]- Care Team Providers Care Lens Engraver Name Role Phone Conner QUEEN, Namrata Agarwal Primary Care Physician [phone] [facility]counter [facility] Date[facility]): 05/30/20 - 06/29/20 [facility] [address] [place] [id number]- [facility] Allergies, Adverse Reactions, Alerts Substance Reaction [...] 05/28/20 16:31:00 EDT, Route to Pharmacy Electronically, [facility] [id number], 171, cm, 05/28/20 16:01:00 EDT, Height, 59.5, kg, 12/29/19... Start Date: 05/28/20 Status: Ordered atovaquone 750 mg/5 mL oral suspension 10 mL = 1,500 mg, By Mouth, Daily, for 60 days, # 600 mL, 11 Refills, Acute 05/18/22 16:35:00 EDT, 05/28/20 16:35:00 EDT, Suspension, [facility] [id number], Pls cancel bactrim prescription. Atovaquone to replace bactrim, 171,... Start Date: 05/28/20 Stop Date: 05/18/22 Status: Ordered azithromycin 500 mg oral tablet 2 tablet = 1,000 mg, By Mouth, Once, take both tablets at once, # 2 tablet, 0 Refills, Soft Stop, 06/27/20 17:56:00 EDT, Tablet, [facility] [id number], 171, cm, 05/28/20 16:01:00 EDT, Height, 59.5, kg, 12/29/19 15:28:00 EDT, D... Start Date: 06/27/20 Status: Ordered Biktarvy oral tablet 1 tablet, By Mouth, Daily, for 30 days, # 30 tablet, 11 Refills, Hard Stop 05/23/21 16:35:00 EDT, 05/28/20 16:35:00 EDT, Tablet, [facility] [id number], 1 tablet By Mouth Daily,x30 days, 171, cm, 05/28/20 16:01:00 EDT, Height,... Start Date: 05/28/20 Stop Date: 05/23/21 Status: Ordered Colace sodium 100 mg oral capsule 100 mg, 1, capsule, By Mouth, 2 times a day, PRN, # 60 capsule, Refills 11, Tot. Refills 11, Maintenance, for constipation, 05/28/20 16:34:00 EDT, Route to Pharmacy Electronically, [facility] [id number], 171, cm, 05/28/20 16:0... Start Date: 05/28/20 Status: Ordered gabapentin 100 mg oral capsule 200 mg, 2, capsule, By Mouth, 3 times a day, # 180 capsule, Refills 11, Tot. Refills 11, Maintenance, 06/28/20 13:01:00 EDT, Route to Pharmacy Electronically, [facility] [id number], 171, cm, 05/28/20 16:01:00 EDT, Height, 59.5... Start Date: 06/28/20 Status: Ordered hydrocortisone 0.5% topical cream See Instructions, use sparingly on face, use on all other affected areas, # 28 Gm, 11 Refills, Maintenance, 05/28/20 16:37:00 EDT, [facility] [id number], use sparingly on face, use on all other affected areas, 171, cm, 2... Start Date: 05/28/20 Status: Ordered influenza virus vaccine, inactivated adjuvanted preservative-free quadrivalent intramuscular susp See Instructions, none, # 1 each, 0 Refills, Maintenance, 05/30/20 9:27:00 EDT, [facility], none, 171, cm, 05/28/20 16:01:00 EDT, Height, 59.5, kg, 12/29/19 15:28:00 EDT, Dry Weight Start Date: 05/30/20 Status: Ordered ketoconazole 2% topical cream 1 application, Topically, 2 times a day, for 28 days, use on the face, # 60 Gm, 11 Refills, Acute 04/29/21 16:40:00 EDT, 05/28/20 16:40:00 EDT, Cream, [facility] [id number], 1 application Topically 2 times a day,x28 days,Instr... Start Date: 05/28/20 Stop Date: 04/29/21 Status: Ordered ketoconazole 2% topical shampoo 1 application, Topically, Daily, try daily for 5 days as a shampoo, # 120 mL, 11 Refills, Soft Stop, 05/28/20 16:37:00 EDT, Shampoo, [place], [place] - [id number], 1 application Topically Daily,Instr:try daily for 5 days as a shampoo,... Start Date: 05/28/20 Status: Ordered lithium 300 mg oral capsule 2 capsule = 600 mg, By Mouth, 2 times a day, # 120 capsule, 2 Refills, Maintenance, 06/28/20 12:56:00 EDT, [facility] [id number], Increase in dose per Psychiatry, 171, cm, 05/28/20 16:01:00 EDT, Height, 59.5, kg, 12/29/19 15:2... Start Date: 06/28/20 Status: Ordered LORazepam 0.5 mg oral tablet 1 tablet = 0.5 mg, By Mouth, 2 times a day, PRN Anxiety, # 60 tablet, 2 Refills, Maintenance, 06/28/20 12:56:00 EDT, Tablet, [facility] [id number], 171, cm, 05/28/20 16:01:00EDT, Height, 59.5, kg, 12/29/19 15:28:00 EDT, Dry W... Start Date: 06/28/20 Status: Ordered Methadone = 55 mg, By Mouth, Daily, 0 Refills, Maintenance, 05/28/20 16:11:00 EDT, Partial fill upon patient request Start Date: 05/28/20 Status: Ordered mirtazapine 30 mg oral tablet 1 tablet = 30 mg, By Mouth, Daily at bedtime, # 30 tablet, 5 Refills, Maintenance, 05/28/20 16:35:00 EDT, Tablet, [place], [place] - [id number], 171, cm, 05/28/20 16:01:00 EDT, Height, 59.5, kg, 12/29/19 15:28:00 EDT, Dry Weight Start Date: 05/28/20 Stop Date: 11/24/20 Status: Ordered multivitamin with minerals Calcium and Magnesium oral tablet 1 tablet, By Mouth, Daily, # 30 tablet, 11 Refills, Maintenance, 05/28/20 16:35:00 EDT, Tablet, [place], [place] - [id number], 1 tablet By Mouth Daily, 171, cm, 05/28/20 16:01:00 EDT, Height, 59.5, kg, 12/29/19 15:28:00 EDT, Dry Weight Start Date: 05/28/20 Stop Date: 05/23/21 Status: Ordered Narcan 4 mg/0.1 mL nasal spray See Instructions, 4 mg Once may repeat every 2 to 3 minutes until patient responds, # 2 each, 1 Refills, Soft Stop, 08/24/19 9:41:00 EST, [place], [place] -, MAMADOU García to pickling operator for Pt., 170, cm, 08/24/19 9:21:00 EST, Height, 66.36,... Start Date: 08/24/19 Status: Ordered Nicotine 2 mg gum 1 each = 2 mg, Chew, Every 2 hours, PRN as needed for smoking cessation, # 160 each, 3 Refills, Maintenance, 05/28/20 16:51:00 EDT, Gum, [place], [place] - [id number], 171, cm, 05/28/20 16:01:00 EDT, Height, 59.5, [...] Refills, Soft Stop, 05/30/20 9:25:00 EDT, Suspension, [facility], 0.5 mL Intramuscular Once, 171, cm, 05/28/20 16:01:00 EDT, Height, 59.5, kg,12/29/19 15:28:00 EDT, Dry Weight Start Date: 05/30/20 Status: Ordered polyethylene glycol 3350 oral powder for reconstitution = 17 Gm, By Mouth, 2 times a day, PRN Constipation, dissolve in water before taking, # 527 Gm, 3 Refills, Maintenance, 11/28/19 9:42:00 EDT, REC Powder, [place], [place] -, 17 Gm By Mouth 2 times a day,x30 days,PRN:Constipation,Instr:... Start Date: 11/28/19 Stop Date: 03/27/20 Status: Ordered SEROquel 25 mg oral tablet 25 mg, 1, tablet, By Mouth, Daily at bedtime, # 30 tablet, Refills 2, Tot. Refills 2, Maintenance, 06/14/20 20:44:00 EDT, Route to Pharmacy Electronically, [facility], 171, cm, 05/28/20 16:01:00 EDT, Height, 59.5, kg, 04/24/20 15:28:00... Start Date: 06/14/20 Stop Date: 09/12/20 Status: Ordered Viagra 50 mg oral tablet 1 tablet = 50 mg, By Mouth, Daily, PRN sexual activity, 1 hour before sexual activity, # 10 tablet,11 Refills, Maintenance, 05/29/20 20:14:00 EDT, Tablet, [facility] [place], [place] - [id number], 171, cm, 05/28/20 16:01:00 EDT, Height, 59.5, k... 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 Sex
--- OUTSIDE RECORDS SUMMARY | 2023-07-12 20:10 | XMS_ITS | Continuity of Care Document ---
Author Name Unknown Organization [facility] Address [address] [place] [id number]- Care Team Providers Care Account Resolution Specialist Name Role Phone Conner QUEEN, Namrata Agarwal Primary Care Physician [facility] Date[facility]s): 01/[facility]/22 - 02/27/22 [facility] [address] [place] [id number]- Encounter Diagnosis Erectile dysfunction(Discharge Diagnosis) - 05/29/20 Depression - [facility](Discharge Diagnosis) - 05/29/20 Attending Physician: Angeles De La Rosa Admitting Physician: Angeles De La Rosa Referring Physician: Admtr, Ar8 Allergies, Adverse Reactions, Alerts Substance Reaction Severity Status Suboxone migraine (PO), fevers (IM) A ctive shellfish Active Latex rash Active Immunizations Given [...] 8:29:00 EDT, Powder, Route to Pharmacy Electronically, [id number], [facility] - Spr... Start Date: 01/07/22 Stop Date: 01/02/23 Status: Ordered Albuterol (Eqv-ProAir HFA) 90 mcg/inh inhalation aerosol 2 puffs, Inhalation, Every 6 hours, # 8.5 Gm, 11 Refills, 08/25/21 12:34:00 EST, [facility] [id number], 25, 2 puffs Inhalation Every 6 hours, 173, cm, 08/25/21 12:31:00 EST, Height, 84, kg, 04/19/21 2:36:00 EDT, Dry Weight Start Date: 08/25/21 Status: Ordered amLODIPine 10 mg oral tablet 10 mg, 1, tablet, By Mouth, Daily, # 30 tablet, Refills 11, Tot. Refills 11, Maintenance, 08/27/21 16:46:00 EST, Route to Pharmacy Electronically, [facility] [id number], 173,cm, 08/25/21 12:31:00 EST, Height, 84, kg, 04/19/21... Start Date: 08/27/21 Status: Ordered aspirin 81 mg oral tablet, chewable 81 mg, 1, tablet, By Mouth, Daily, # 120 tablet, Refills 3, Tot. Refills 3, Maintenance, 10/02/21 11:47:00 EST, Route to Pharmacy Electronically, [facility] [id number], Partial fill upon patient request if the prescription is... Start Date: 10/02/21 Stop Date: 01/25/23 Status: Ordered atorvastatin 80 mg oral tablet 1 tablet = 80 mg, By Mouth, Daily, # 30 tablet, 11 Refills, Maintenance, 11/07/21 14:34:00 EST, Tablet, [facility] [id number], Partial fill upon patient request if the prescription is for a schedule II opioid drug., 170, cm, 0... Start Date: 11/07/21 Status: Ordered atovaquone 750 mg/5 mL oral suspension 10 mL = 1,500 mg, By Mouth, Daily, for 60 days, # 600 mL, 11 Refills, Acute 10/28/23 14:35:00 EST, 11/07/21 14:35:00 EST, Suspension, [facility] [id number], Pls cancel bactrim prescription. Atovaquone to replace bactrim, 170,... Start Date: 11/07/21 Stop Date: 10/28/23 Status: Ordered Biktarvy oral tablet 1 tablet, By Mouth, Daily, # 30 tablet, 11 Refills, [facility], 30, TAKE ONE TABLET BY MOUTH DAILY, 173, cm, 04/21/21 8:17:00 EDT, Height, 84, kg, 04/19/21 2:36:00 EDT, Dry Weight Start Date: 06/25/21 Status: Ordered bisacodyl 10 mg rectal suppository 1 supp = 10 mg, Rectally, Daily, PRN for constipation, # 10 supp, 3 Refills, Acute 03/04/22 20:42:00 EDT, 02/25/22 20:42:00 EDT, Suppository, [facility], [place] - [id number], Partial fill upon patient request if the prescription is for... Start Date: 02/25/22 Stop Date: 03/04/22 Status: Ordered Blood Pressure Monitor Blood Pressure [...] 12/02/21 16:54:00 EDT, Route to Pharmacy Electronically, [facility], [place] - [id number], Partial fill upon pilar... Start Date: 12/02/21 [...] FOR CONSTIPATION, # 60 each, 2 Refills, [facility], 170, cm, 10/10/21 13:45:00 EST, Height, 110, kg, 09/29/21 21:14:00 EST, Dry Weight Start Date: 12/01/21 Status: Ordered hydrocortisone 0.5% topical cream See Instructions, use sparingly on face, use on all other affected areas, # 28 Gm, 11 Refills, Maintenance, 03/07/21 6:50:00 EDT, [facility], [facility] [id number], use sparingly on face, use on all other affected areas, 174, cm, 01/13/21... Start Date: 03/07/21 Status: Ordered Incruse Ellipta 62.5 mcg/inh inhalation powder 1 puffs, Inhalation, Every 24 hours, doses should be taken AT least 24 HOURS APART, # 30 Unknown, 11 Refills, 08/25/21 12:34:00 EST, [facility], [place] - [id number], 173, cm, 08/25/21 12:31:00 EST, Height, 84, kg, 04/19/21 2:36:00 EDT,... Start Date: 08/25/21 Status: Ordered ketoconazole 2% topical cream 1 application, Topically, Daily, # 30 Gm, 11 Refills, Maintenance, 12/02/21 16:56:00 EDT, [facility], [place] - [id number], 1 application Topically Daily, 170, cm, 10/10/21 [...] 0 Refills, Maintenance, 11/11/21 17:22:00 EST, Tablet, [place], [place] - [id number], 170, cm, 10/10/21 13:45... Start Date: 11/11/21 Stop Date: 12/11/21 Status: Ordered multivitamin with minerals Calcium and Magnesium oral tablet 1 tablet, By Mouth, Daily, # 30 tablet, 11 Refills, Maintenance, 12/15/21 6:32:00 EDT, Tablet, [place], [place] - [id number], 1 tablet By Mouth Daily, 173, cm, 12/05/21 17:38:00 EDT,Height, 127, kg, 12/05/21 17:38:00 EDT, Dry Weight Start Date: 12/15/21 Status: Ordered Narcan 4 mg/0.1 mL nasal spray See Instructions, 4 mg Once may repeat every 2 to 3 minutes until patient responds, # 2 each, 1 Refills, Soft Stop, 08/24/19 9:41:00 EST, [place], [place] -, MAMADOU 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 Start Date: 08/24/19 Status: Ordered Nicotine 2 mg gum 1 each = 2 mg, Chew, Every 2 hours, PRN as needed for smoking cessation, for 4 week(s), # 160 each,11 Refills, Acute 09/11/22 12:53:00 EST, 10/10/21 12:53:00 EST, Gum, [facility] [id number], Partial fill upon patient request... Start Date: [...] Refills, Maintenance, 08/21/21 13:33:00 EST, DIS Tablet, [facility] [id number], Partial fill upon patient request if the [...] 10/02/21 11:47:00 EST, Route to Pharmacy Electronically, [facility] [id number], Partial fill upon patient request if the prescription is f... Start Date: 10/02/21 Stop Date: 12/31/21 Status: Ordered polyethylene glycol 3350 oral powder for reconstitution See Instructions, DISSOLVE 17grams powder IN WATER BEFORE drinking 2 (two) times a day NEEDED FOR CONSTIPATION, # 510 Gm, 11 Refills, [facility], 30, DISSOLVE 17grams powder IN WATER BEFORE drinking 2 (two) times a day NEEDED FOR CONSTIPATI... Start Date: 09/03/21 Status: Ordered polyethylene glycol 3350 oral powder for reconstitution = 17 Gm, By Mouth, 2 times a day, PRN Constipation, dissolve in water before taking, # 527 Gm, 3 Refills, Maintenance, 12/02/21 16:55:00 EDT, REC Powder, [facility] [id number], 17 Gm By Mouth 2 times a day,x30 days,PRN:Constip... Start Date: 12/02/21 Stop Date: 04/01/22 Status: Ordered rOPINIRole 0.5 mg oral tablet 1 tablet = 0.5 mg, By Mouth, Daily at bedtime, 1 to 3 hours before bedtime, # 30 tablet, 11 Refills, Maintenance, 08/21/21 13:32:00 EST, Tablet, [facility] [id number], Partial fill upon patient request if the prescription is f... Start Date: 08/21/21 Status: Ordered Senna 8.6 mg oral tablet 1 or 2 tablets, By Mouth, Daily at bedtime, PRN, # 60 tablet, Refills 5, Tot. Refills 5, Maintenance, Constipation, 10/10/21 14:43:00 EST, Route to Pharmacy Electronically, [facility] [id number] Tablet, Partial fill upon patie... Start Date: 10/10/21 Status: Ordered sildenafil 100 mg oral tablet 1 tablet = 100 mg, By Mouth, Daily, 1 hour before sexual activity, # 20 tablet, 11 Refills, Maintenance, 03/07/21 6:49:00 EDT, Tablet, [facility] [id number], Partial fill upon patient request if the prescription is for a sched... Start Date: 03/07/21 Status: Ordered varenicline 1mg tablet 1 tablet = 1 mg, By Mouth, Daily, 0.5 tab daily x 3 days then 0.5 tab BID x 3 days then 1 tab BID, # 30 tablet, 4 Refills, Maintenance, 11/13/21 15:15:00 EST, Tablet, [facility] [place], [place] - [id number], Partial fill upon patient request if... 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 Impaired LV relaxation Diagnosis Diagnosis Type Effective Dates Health Status Clinical Service Informant Erectile dysfunction Discharge Diagnosis 05/29/20 Depression - Olinda dawn [facility] Discharge Diagnosis 05/29/20 Social History Social History Type Response Smoking Status 10 or more cigarette s (1/2 pack or more)/day in last 30 days entered on: 12/05/21 Sex
--- OUTSIDE RECORDS SUMMARY | 2023-07-12 20:10 | XMS_ITS | Continuity of Care Document ---
Author Name Unknown Organization [facility] Address [address] [place] [address]- Care Team Providers Care Overhead Line Worker Name Role Phone Conner QUEEN, Namrata Agarwal Primary Care Physician [facility]): 01[facility]21 - 02/27/21 [facility] [address] [place] [address]- Encounter Diagnosis Erectile dysfunction(Discharge Diagnosis) - 05/29/20 Depression - [facility](Discharge Diagnosis) - 05/29/20 Attending Physician: Angeles De La Rosa Admitting Physician: AdmAngeles cervantes Referring Physician: Admtr, ArRenea Allergies, Adverse Reactions, Alerts Substance Reaction Severity [...] 10/28/20 9:30:00 EST, Route to Pharmacy Electronically, [facility] [place], [place] - [id number], 173, cm, 07/17/20 19:29:00 EST, Height, 83.9, kg, 07/17/20... Start Date: 10/28/20 Status: Ordered atovaquone 750 mg/5 mL oral suspension 10 mL = 1,500 mg, By Mouth, Daily, for 60 days, # 600 mL, 11 Refills, Acute 05/18/22 16:35:00 EDT, 05/28/20 16:35:00 EDT, Suspension, [facility] [id number], Pls cancel bactrim prescription. Atovaquone to replace bactrim, 171,... Start Date: 05/28/20 Stop Date: 05/18/22 Status: Ordered Biktarvy oral tablet 1 tablet, By Mouth, Daily, for 30 days, # 30 tablet, 11 Refills, Hard Stop 05/23/21 16:35:00 EDT, 05/28/20 16:35:00 EDT, Tablet, [facility], [facility] [id number], 1 tablet By Mouth Daily,x30 days, 171, cm, 05/28/20 16:01:00 EDT, Height,... Start Date: 05/28/20 Stop Date: 05/23/21 Status: Ordered Colace sodium 100 mg oral capsule 100 mg, 1, capsule, By Mouth, 2 times a day, PRN, # 60 capsule, Refills 11, Tot. Refills 11, Maintenance, for constipation, 05/28/20 16:34:00 EDT, Route to Pharmacy Electronically, [facility] [id number], 171, cm, 05/28/20 16:0... Start Date: 05/28/20 Status: Ordered hydrocortisone 0.5% topical cream See Instructions, use sparingly on face, use on all other affected areas, # 28 Gm, 11 Refills, Maintenance, 05/28/20 16:37:00 EDT, [facility] [id number], use sparingly on face, use on all other affected areas, 171, cm, 2... Start Date: 05/28/20 Status: Ordered ketoconazole 2% topical shampoo 1 application, Topically, Daily, try daily for 5 days as a shampoo, # 120 mL, 11 Refills, Soft Stop, 05/28/20 16:37:00 EDT, Shampoo, [facility] [id number], 1 application Topically Daily,Instr:try daily for 5 days as a shampoo,... Start Date: 05/28/20 Status: Ordered lithium 300 mg oral capsule 2 capsule = 600 mg, By Mouth, 2 times a day, # 120 capsule, 2 Refills, Maintenance, 06/28/20 12:56:00 EDT, [facility], [facility] [id number], Increase in dose per Psychiatry, 171, cm, 05/28/20 16:01:00 EDT, Height, 59.5, kg, 12/29/19 15:2... Start Date: 06/28/20 Status: Ordered LORazepam 0.5 mg oral tablet 1 tablet = 0.5 mg, By Mouth, 2 times a day, PRN Anxiety, # 60 tablet, 2 Refills, Maintenance, 06/28/20 12:56:00 EDT, Tablet, [facility], [facility] [id number], 171, cm, 05/28/20 16:01:00EDT, Height, 59.5, kg, 12/29/19 15:28:00 EDT, Dry W... Start Date: 06/28/20 Status: Ordered Mavyret 100 mg-40 mg oral tablet 3 tablet, By Mouth, Daily, with food, # 252 tablet, 0 Refills, Maintenance, 07/08/20 15:34:00 EST, Tablet, [facility], 3 tablet By Mouth Daily,x12 [...] 11 Refills, Maintenance, 05/28/20 16:35:00 EDT, Tablet, [facility], [facility] [id number], 1 tablet By Mouth Daily, 171, cm, 05/28/20 16:01:00 EDT, Height, 59.5, kg, 12/29/19 15:28:00 EDT, Dry Weight Start Date: 05/28/20 Stop Date: 05/23/21 Status: Ordered Narcan 4 mg/0.1 mL nasal spray See Instructions, 4 mg Once may repeat every 2 to 3 minutes until patient responds, # 2 each, 1 Refills, Soft Stop, 08/24/19 9:41:00 EST, [place], [place] -, MAMADOU García to picker packer for Pt., 170, cm, 08/24/19 9:21:00 EST, Height, 66.36,... Start Date: 08/24/19 Status: Ordered ondansetron 4 mg oral tablet, disintegrating 1 tablet = 4 mg, By Mouth, Every 8 hours, PRN as needed for nausea/vomiting, # 12 tablet, 0 Refills, Maintenance, 12/08/20 19:19:00 EDT, DIS Tablet, [place], [place] - [id number], Partial fill upon patient request if the [...] Refills, Maintenance, 11/28/19 9:42:00 EDT, REC Powder, [place], [place] -, 17 Gm By Mouth 2 times a day,x30 days,PRN:Constipation,Instr:... Start Date: 11/28/19 Stop Date: 03/27/20 Status: Ordered sildenafil 100 mg oral tablet 1 tablet = 100 mg, By Mouth, Daily, 1 hour before sexual activity, # 10 tablet, 5 Refills, Maintenance, 09/04/20 14:26:00 EST, Tablet, [facility] [id number], Partial fill upon patient request if the prescription is for a sched... 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
--- OUTSIDE RECORDS SUMMARY | 2023-07-12 20:10 | XMS_ITS | Continuity of Care Document ---
Author Name Unknown Organization [facility] Address [address] [place] [address]- Care Team Providers Care Anatomic Pathologist Name Role Phone Conner QUEEN, Namrata Agarwal Primary Care Physician Encounter [facility] Date(s): 12/12/20 - 02/08/21 [facility] [address], [place] [address] Attending Physician: Isidoro Neely MD [...] 10/28/20 9:30:00 EST, Route to Pharmacy Electronically, [place], [place] - [id number], 173, cm, 07/17/20 19:29:00 EST, Height, 83.9, kg, 07/17/20... Start Date: 10/28/20 Status: Ordered atovaquone 750 mg/5 mL oral suspension 10 mL = 1,500 mg, By Mouth, Daily, for 60 days, # 600 mL, 11 Refills, Acute 05/18/22 16:35:00 EDT, 05/28/20 16:35:00 EDT, Suspension, [place], [place] - [id number], Pls cancel bactrim prescription. Atovaquone to replace bactrim, 171,... Start Date: 05/28/20 Stop Date: 05/18/22 Status: Ordered Biktarvy oral tablet 1 tablet, By Mouth, Daily, for 30 days, # 30 tablet, 11 Refills, Hard Stop 05/23/21 16:35:00 EDT, 05/28/20 16:35:00 EDT, Tablet, [facility] [id number], 1 tablet By Mouth Daily,x30 days, 171, cm, 05/28/20 16:01:00 EDT, Height,... Start Date: 05/28/20 Stop Date: 05/23/21 Status: Ordered Colace sodium 100 mg oral capsule 100 mg, 1, capsule, By Mouth, 2 times a day, PRN, # 60 capsule, Refills 11, Tot. Refills 11, Maintenance, for constipation, 05/28/20 16:34:00 EDT, Route to Pharmacy Electronically, [facility] [id number], 171, cm, 05/28/20 16:0... Start Date: 05/28/20 Status: Ordered hydrocortisone 0.5% topical cream See Instructions, use sparingly on face, use on all other affected areas, # 28 Gm, 11 Refills, Maintenance, 05/28/20 16:37:00 EDT, [facility] [id number], use sparingly on face, use on all other affected areas, 171, cm, ... Start Date: 05/28/20 Status: Ordered ketoconazole 2% topical shampoo 1 application, Topically, Daily, try daily for 5 days as a shampoo, # 120 mL, 11 Refills, Soft Stop, 05/28/20 16:37:00 EDT, Shampoo, [facility] [id number], 1 application Topically Daily,Instr:try daily for 5 days as a shampoo,... Start Date: 05/28/20 Status: Ordered lithium 300 mg oral capsule 2 capsule = 600 mg, By Mouth, 2 times a day, # 120 capsule, 2 Refills, Maintenance, 06/28/20 12:56:00 EDT, [facility] [id number], Increase in dose per Psychiatry, 171, cm, 05/28/20 16:01:00 EDT, Height, 59.5, kg, 12/29/19 15:2... Start Date: 06/28/20 Status: Ordered LORazepam 0.5 mg oral tablet 1 tablet = 0.5 mg, By Mouth, 2 times a day, PRN Anxiety, # 60 tablet, 2 Refills, Maintenance, 06/28/20 12:56:00 EDT, Tablet, [facility] [id number], 171, cm, 05/28/20 16:01:00EDT, Height, 59.5, kg, 12/29/19 15:28:00 EDT, Dry W... Start Date: 06/28/20 Status: Ordered Mavyret 100 mg-40 mg oral tablet 3 tablet, By Mouth, Daily, with food, # 252 tablet, 0 Refills, Maintenance, 07/08/20 15:34:00 EST, Tablet, [facility], 3 tablet By Mouth Daily,x12 week(s),Instr:with [...] 11 Refills, Maintenance, 05/28/20 16:35:00 EDT, Tablet, [facility], [place] - [id number], 1 tablet By Mouth Daily, 171, cm, 05/28/20 16:01:00 EDT, Height, 59.5, kg, 12/29/19 15:28:00 EDT, Dry Weight Start Date: 05/28/20 Stop Date: 05/23/21 Status: Ordered Narcan 4 mg/0.1 mL nasal spray See Instructions, 4 mg Once may repeat every 2 to 3 minutes until patient responds, # 2 each, 1 Refills, Soft Stop, 08/24/19 9:41:00 EST, [place], [place] -, MAMADOU García to seed cone picker for Pt., 170, cm, 08/24/19 9:21:00 EST, Height, 66.36,... Start Date: 08/24/19 Status: Ordered ondansetron 4 mg oral tablet, disintegrating 1 tablet = 4 mg, By Mouth, Every 8 hours, PRN as needed for nausea/vomiting, # 12 tablet, 0 Refills, Maintenance, 12/08/20 19:19:00 EDT, DIS Tablet, [place], [place] - [id number], Partial fill upon patient request if the [...] Refills, Maintenance, 11/28/19 9:42:00 EDT, REC Powder, [place], [place] -, 17 Gm By Mouth 2 times a day,x30 days,PRN:Constipation,Instr:... Start Date: 11/28/19 Stop Date: 03/27/20 Status: Ordered sildenafil 100 mg oral tablet 1 tablet = 100 mg, By Mouth, Daily, 1 hour before sexual activity, # 10 tablet, 5 Refills, Maintenance, 09/04/20 14:26:00 EST, Tablet, [place], [place] - [id number], Partial fill upon patient request if the prescription is for a sched... 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
--- OUTSIDE RECORDS SUMMARY | 2023-07-12 20:10 | XMS_ITS | Continuity of Care Document ---
Author Name Unknown Organization [facility] Address [address] [place] [address]- Care Team Providers Care Panelboard Assembler Name Role Phone Conner QUEEN, Namrata Agarwal Primary Care Physician Encounter [facility] Date(s): 03/03/23 - 04/17/23 [facility] [address] [place] [address] Attending Physician: Not on Staff, Attending MD Allergies, Adverse Reactions, Alerts Substance Reaction [...] 02/16/23 10:45:00 EDT, Route to Pharmacy Electronically, [facility] [place], [place] - [id number], 173, cm, 01/21/23 11:36:00 EDT, Height, 93.18, kg, ... Start Date: 02/16/23 Status: Ordered aspirin 81 mg oral tablet, chewable 81 mg, 1, tablet, By Mouth, Daily, # 90 tablet, Refills 3, Tot. Refills 3, Maintenance, 02/16/23 10:45:00 EDT, Route to Pharmacy Electronically, [facility] [id number], Partial fill upon patient request if the prescription is f... Start Date: 02/16/23 Status: Ordered atorvastatin 80 mg oral tablet 1 tablet = 80 mg, By Mouth, Daily, # 90 tablet, 3 Refills, Maintenance, 02/16/23 10:45:00 EDT, Tablet, [facility] [id number], Partial fill upon patient request if the prescription is for a schedule II opioid drug., 173, cm, 05... Start Date: 02/16/23 Status: Ordered Biktarvy oral tablet 1 tablet, By Mouth, Daily, must get appt and labs for refills, # 30 tablet, 0 Refills, Maintenance,12/16/22 19:18:00 EDT, [facility] [id number], 30, 1 tablet By Mouth Daily,Instr:must get appt and labs for refills, 173, cm, 0... Start Date: 12/16/22 Status: Ordered Colace sodium 100 mg oral capsule 100 mg, 1, capsule, By Mouth, 2 times a day, PRN, # 180 capsule, Refills 3, Tot. Refills 3, Maintenance, for constipation, 02/16/23 10:45:00 EDT, Route to Pharmacy Electronically, [facility] [id number], Partial fill upon patie... Start Date: 02/16/23 Status: Ordered EpiPen 2-Devin 0.3 mg injectable kit = 0.3 mg, Intramuscular, Once, may repeat if necessary, # 2 each, 1 Refills, Soft Stop, 04/14/23 14:07:00 EDT, [facility] [id number], Partial fill upon patient request if theprescription is for a schedule II opioid drug., 176... Start Date: 04/14/23 Status: Ordered fluticasone-salmeterol 250 mcg-50 mcg inhalation powder 1, puffs, Inhalation, 2 times a day, # 3 each, Refills 3, Tot. Refills 3, Maintenance, 02/16/23 10:45:00 EDT, Powder, Route to Pharmacy Electronically, [id number], [place], [place] - [id number], 173, cm, 01/04... Start Date: 02/16/23 Status: Ordered Incruse Ellipta 62.5 mcg/inh inhalation powder 1 puffs, Inhalation, Every 24 hours, # 3 each, 3 Refills, Maintenance, 02/16/23 10:45:00 EDT, [place], [place] - [id number], 173, cm, 01/21/23 11:36:00 EDT, Height, 93.18, kg, 08/12/22 0:40:00 EST, Dry Weight Start Date: 02/16/23 Status: Ordered Bremond 200 mg, By Mouth, Daily at bedtime, [...] tablet, 3 Refills,Maintenance, 02/16/23 10:45:00 EDT, Tablet, [facility] [id number], Partialfill upon patient request if the prescription is fo... Start Date: 02/16/23 Status: Ordered Ventolin HFA 108 mcg/inh inhalation aerosol with adapter 2 puffs, Inhalation, 4 times a day, PRN for wheezing, # 3 each, 3 Refills, Maintenance, 02/16/23 10:45:00 EDT, Aerosol, [facility] [id number], Partial fill upon patient request if the prescription is for a schedule II opioid d... Start Date: 02/16/23 Status: Ordered Vitamin D3 1000 intl units oral capsule 1 capsule = 25 mcg, By Mouth, Daily, # 90 capsule, 3 Refills, Maintenance, 02/16/23 10:45:00 EDT, Capsule, [facility] [id number], D/c vitamin high dosed, 173, cm, 01/21/23 [...] 01/2019 Confirmed Active Depression - Olinda dawn, [facility] Confirmed Active Diastolic dysfunction 1 Confirmed [...] Personnel Name: Jadiel Watson RN Position: [facility] ED RN W/OE and Tasks Member Role: Primary Care Nurse Name: Dede Mccloud RN Position: [facility] RN Member Role: Primary Care Nurse Name: Judy Gonzales RN Position: [facility] RN Member Role: Primary Care Nurse Name: Jake Moon Position: [facility] RN Supv Member Role: Primary Care Nurse Name: Enma Manriquez RN Position: [facility] AMB Nurse Member Role: Primary Care Nurse Name: Zuhair Lopez RN Position: [facility] RN Member Role: Primary Care Nurse Name: Edie Bob RN Position: [facility] RN Member Role: Primary Care Nurse Name: Lisbet Gardiner RN Position: [facility] RN Member Role: Primary Care Nurse Name: Namrata Prieto MD Position: [facility] Physician - Primary Care Member Role: PCP Address: Address: [address] [place] [address]- Name: Carolina Valero RN Position: [facility] RN Member Role: Primary Care Nurse Name: Nishi San RN Position: [facility] RN Member Role: Primary Care Nurse Name: Micky Boyd RN Position: [facility] RN Member Role: Primary Care Nurse Name: Lauri Combs NP Position: Reference Physician Member Role: Primary Care Nurse Address: Address: [address] [place] [address] [address] [facility] [place] [address]- Name: Griselda Rand Position: [facility] RN Supv Member Role: Primary Care Nurse Care Team Related Persons Name: LUIS SAN Address: [place] [address] Name: BROOKE OWEN Address: home [address] [address] Name: KARYN OWEN Address: home [address] [place] [address] Name: DOMINGO LEONE Address: home [address] [place] [address]
--- OUTSIDE RECORDS SUMMARY | 2023-07-12 20:10 | XMS_ITS | Continuity of Care Document ---
Author Name Unknown Organization [facility] Address [address] [place] [address]- Care Team Providers Care Commercial Lending Assistant Name Role Phone Conner QUEEN, Namrata Agarwal Primary Care Physician [phone] Encounter [facility] Date(s): 07/18/20 - 08/17/20 [facility] [address] [place] [id number] Allergies, Adverse Reactions, Alerts Substance Reaction Severity [...] 05/28/20 16:31:00 EDT, Route to Pharmacy Electronically, [facility] [id number], 171, cm, 05/28/20 16:01:00 EDT, Height, 59.5, kg, 12/29/19... Start Date: 05/28/20 Status: Ordered atovaquone 750 mg/5 mL oral suspension 10 mL = 1,500 mg, By Mouth, Daily, for 60 days, # 600 mL, 11 Refills, Acute 05/18/22 16:35:00 EDT, 05/28/20 16:35:00 EDT, Suspension, [facility] [id number], Pls cancel bactrim prescription. Atovaquone to replace bactrim, 171,... Start Date: 05/28/20 Stop Date: 05/18/22 Status: Ordered azithromycin 500 mg oral tablet 2 tablet = 1,000 mg, By Mouth, Once, take both tablets at once, # 2 tablet, 0 Refills, Soft Stop, 06/27/20 17:56:00 EDT, Tablet, [facility], [facility] [id number], 171, cm, 05/28/20 16:01:00 EDT, Height, 59.5, kg, 12/29/19 15:28:00 EDT, D... Start Date: 06/27/20 Status: Ordered Biktarvy oral tablet 1 tablet, By Mouth, Daily, for 30 days, # 30 tablet, 11 Refills, Hard Stop 05/23/21 16:35:00 EDT, 05/28/20 16:35:00 EDT, Tablet, [facility], [facility] [id number], 1 tablet By Mouth Daily,x30 days, 171, cm, 05/28/20 16:01:00 EDT, Height,... Start Date: 05/28/20 Stop Date: 05/23/21 Status: Ordered Colace sodium 100 mg oral capsule 100 mg, 1, capsule, By Mouth, 2 times a day, PRN, # 60 capsule, Refills 11, Tot. Refills 11, Maintenance, for constipation, 05/28/20 16:34:00 EDT, Route to Pharmacy Electronically, [facility] [id number], 171, cm, 05/28/20 16:0... Start Date: 05/28/20 [...] 06/28/20 13:01:00 EDT, Route to Pharmacy Electronically, [facility], [facility] [id number], 171, cm, 05/28/20 16:01:00 EDT, Height, 59.5... Start Date: 06/28/20 Status: Ordered hydrocortisone 0.5% topical cream See Instructions, use sparingly on face, use on all other affected areas, # 28 Gm, 11 Refills, Maintenance, 05/28/20 16:37:00 EDT, [facility] [id number], use sparingly on face, use on all other affected areas, 171, cm, ... Start Date: 05/28/20 Status: Ordered influenza virus vaccine, inactivated adjuvanted preservative-free quadrivalent intramuscular susp See Instructions, none, # 1 each, 0 Refills, Maintenance, 05/30/20 9:27:00 EDT, [facility], none, 171, cm, 05/28/20 16:01:00 EDT, Height, 59.5, kg, 12/29/19 15:28:00 EDT, Dry Weight Start Date: 05/30/20 Status: Ordered ketoconazole 2% topical cream 1 application, Topically, 2 times a day, for 28 days, use on the face, # 60 Gm, 11 Refills, Acute 04/29/21 16:40:00 EDT, 05/28/20 16:40:00 EDT, Cream, [facility] [id number], 1 application Topically 2 times a day,x28 days,Instr... Start Date: 05/28/20 Stop Date: 04/29/21 Status: Ordered ketoconazole 2% topical shampoo 1 application, Topically, Daily, try daily for 5 days as a shampoo, # 120 mL, 11 Refills, Soft Stop, 05/28/20 16:37:00 EDT, Shampoo, [facility] [id number], 1 application Topically Daily,Instr:try daily for 5 days as a shampoo,... Start Date: 05/28/20 Status: Ordered lithium 300 mg oral capsule 2 capsule = 600 mg, By Mouth, 2 times a day, # 120 capsule, 2 Refills, Maintenance, 06/28/20 12:56:00 EDT, [facility] [id number], Increase in dose per Psychiatry, 171, cm, 05/28/20 16:01:00 EDT, Height, 59.5, kg, 12/29/19 15:2... Start Date: 06/28/20 Status: Ordered LORazepam 0.5 mg oral tablet 1 tablet = 0.5 mg, By Mouth, 2 times a day, PRN Anxiety, # 60 tablet, 2 Refills, Maintenance, 06/28/20 12:56:00 EDT, Tablet, [facility], [facility] [id number], 171, cm, 05/28/20 16:01:00EDT, Height, 59.5, kg, 12/29/19 15:28:00 EDT, Dry W... Start Date: 06/28/20 Status: Ordered Mavyret 100 mg-40 mg oral tablet 3 tablet, By Mouth, Daily, with food, # 252 tablet, 0 Refills, Maintenance, 07/08/20 15:34:00 EST, Tablet, [facility], 3 tablet By Mouth Daily,x12 [...] Refills, Maintenance, 05/28/20 16:35:00 EDT, Tablet, [facility], [place] - [id number], 171, cm, 05/28/20 16:01:00 EDT, Height, 59.5, kg, 12/29/19 15:28:00 EDT, Dry Weight Start Date: 05/28/20 Stop Date: 11/24/20 Status: Ordered multivitamin with minerals Calcium and Magnesium oral tablet 1 tablet, By Mouth, Daily, # 30 tablet, 11 Refills, Maintenance, 05/28/20 16:35:00 EDT, Tablet, [place], [place] - [id number], 1 tablet By Mouth Daily, 171, cm, 05/28/20 16:01:00 EDT, Height, 59.5, kg, 12/29/19 15:28:00 EDT, Dry Weight Start Date: 05/28/20 Stop Date: 05/23/21 Status: Ordered Narcan 4 mg/0.1 mL nasal spray See Instructions, 4 mg Once may repeat every 2 to 3 minutes until patient responds, # 2 each, 1 Refills, Soft Stop, 08/24/19 9:41:00 EST, [place], [place] -, MAMADOU García to order picker for Pt., 170, cm, 08/24/19 9:21:00 EST, Height, 66.36,... Start Date: 08/24/19 Status: Ordered Nicotine 2 mg gum 1 each = 2 mg, Chew, Every 2 hours, PRN as needed for smoking cessation, # 160 each, 3 Refills, Maintenance, 05/28/20 16:51:00 EDT, Gum, [place], [place] - [id number], 171, cm, 05/28/20 16:01:00 EDT, Height, 59.5, [...] Refills, Soft Stop, 05/30/20 9:25:00 EDT, Suspension, [facility], 0.5 mL Intramuscular Once, 171, cm, 05/28/20 16:01:00 EDT, Height, 59.5, kg,12/29/19 15:28:00 EDT, Dry Weight Start Date: 05/30/20 Status: Ordered polyethylene glycol 3350 oral powder for reconstitution = 17 Gm, By Mouth, 2 times a day, PRN Constipation, dissolve in water before taking, # 527 Gm, 3 Refills, Maintenance, 11/28/19 9:42:00 EDT, REC Powder, [place], [place] -, 17 Gm By Mouth 2 times a day,x30 days,PRN:Constipation,Instr:... Start Date: 11/28/19 Stop Date: 03/27/20 Status: Ordered SEROquel 25 mg oral tablet 25 mg, 1, tablet, By Mouth, Daily at bedtime, # 30 tablet, Refills 2, Tot. Refills 2, Maintenance, 06/14/20 20:44:00 EDT, Route to Pharmacy Electronically, [facility], 171, cm, 05/28/20 16:01:00 EDT, Height, 59.5, kg, 12/29/19 15:28:00... Start Date: 06/14/20 Stop Date: 09/12/20 Status: Ordered Viagra 50 mg oral tablet 1 tablet = 50 mg, By Mouth, Daily, PRN sexual activity, 1 hour before sexual activity, # 10 tablet,11 Refills, Maintenance, 05/29/20 20:14:00 EDT, Tablet, [place], [place] - [id number], 171, cm, 05/28/20 16:01:00 EDT, Height, 59.5, k... 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 Sex
--- OUTSIDE RECORDS SUMMARY | 2023-07-12 20:11 | XMS_ITS | Continuity of Care Document ---
Author Name Unknown Organization [facility] Address [address] [place] [address]- Care Team Providers Care Gas Pit Worker Name Role Phone Long HEADER UP, Giovanna Bernard Primary Care Physician Encounter [facility] Date(s): 08/24/19 - 10/07/19 [facility] [address] [place] [address]- [facility] Attending Physician: Not on Staff, Attending MD [...] 09/26/19 12:05:00 EST, Route to Pharmacy Electronically, [place], [place] -, 172, cm, 09/26/19 8:57:00 EST, Height, 66.3, kg, 09/11/19 13:26:00 EST... Start Date: 09/26/19 Status: Ordered atovaquone 750 mg/5 mL oral suspension 10 mL = 1,500 mg, By Mouth, Daily, for 60 days, # 600 mL, 5 Refills, Acute 08/18/20 9:40:00 EST, 08/24/19 9:40:00 EST, Suspension, [place], [place] -, Pls cancel bactrim prescription. Atovaquone to replace bactrim, 170, cm, 08/24/19 9... Start Date: 08/24/19 Stop Date: 08/18/20 Status: Ordered Biktarvy oral tablet 1 tablet, By Mouth, Daily, # 30 tablet, 5 Refills, Maintenance, 08/24/19 9:40:00 EST, Tablet, [place], [place] -, 1 tablet By Mouth Daily,x30 [...] 09/26/19 12:05:00 EST, Route to Pharmacy Electronically, [place], [place] -, 172, cm, 09/26/19 8:57:00 EST, [place]... Start Date: 09/26/19 Status: Ordered fluconazole 200 mg oral tablet 1 tablet = 200 mg, By Mouth, Daily, for 28 days, # 28 tablet, 5 Refills, Acute 02/08/20 9:42:00 EDT, 08/24/19 9:42:00 EST, Tablet, [facility], [place] -, Decrease in dose., 170, cm, 08/24/19 9:21:00 EST, Height, 66.36, kg, 03/10/19 16:51... Start Date: 08/24/19 Stop Date: 02/08/20 Status: Ordered gabapentin 100 mg oral capsule 200 mg, 2, capsule, By Mouth, 3 times a day, # 180 capsule, Refills 0, Tot. Refills 0, Maintenance,09/26/19 12:07:00 EST, Route to Pharmacy Electronically, [place], [place] -, 172, cm, 09/26/19 8:57:00 EST, Height, 66.3, kg, 09/11/19... Start Date: 09/26/19 Status: Ordered lithium 300 mg oral capsule 2 capsule = 600 mg, By Mouth, Daily at bedtime, # 60 capsule, 0 Refills, Maintenance, 09/26/19 12:09:00 EST, [place], [place] -, 172, cm, 09/26/19 8:57:00 EST, Height, 66.3, kg, 09/11/19 13:26:00 EST, Dry Weight Start Date: 09/26/19 Status: Ordered lithium 300 mg oral tablet 1 tablet = 300 mg, By Mouth, Daily, # 30 tablet, 0 Refills, Maintenance, 09/26/19 12:08:00 EST, Tablet, [place], [place] -, 172, cm, 09/26/19 8:57:00 EST, Height, 66.3, kg, 09/11/19 13:26:00 EST, Dry Weight Start Date: 09/26/19 Status: Ordered LORazepam 0.5 mg oral tablet 1 tablet = 0.5 mg, By Mouth, 2 times a day, PRN Anxiety, # 60 tablet, 0 Refills, Maintenance, 09/26/19 12:08:00 EST, Tablet Start Date: 09/26/19 Status: Ordered methadone 10 mg oral tablet = 25 mg, By Mouth, Daily, 0 Refills, Maintenance, 01/17/19 10:36:18 EDT, Tablet Start Date: 01/17/19 Status: Ordered mirtazapine 30 mg oral tablet 1 tablet = 30 mg, By Mouth, Daily at bedtime, # 30 tablet, 0 Refills, Maintenance, 09/26/19 12:07:00 EST, Tablet, [place], [place] -, 172, cm, 09/26/19 8:57:00 EST, Height, 66.3, kg,09/11/19 13:26:00 EST, Dry Weight Start Date: 09/26/19 Status: Ordered multivitamin with minerals Calcium and Magnesium oral tablet 1 tablet, By Mouth, Daily, # 30 tablet, 5 Refills, Maintenance, 09/26/19 12:05:00 EST, Tablet, [place], [place] -, 1 tablet By Mouth Daily,x30 days, 172, cm, 09/26/19 8:57:00 EST, Height, 66.3, kg, 09/11/19 13:26:00 EST, Dry Weight Start Date: 09/26/19 Stop Date: 03/24/20 Status: Ordered Narcan 4 mg/0.1 mL nasal spray See Instructions, 4 mg Once may repeat every 2 to 3 minutes until patient responds, # 2 each, 1 Refills, Soft Stop, 08/24/19 9:41:00 EST, [facility] [place] -, MAMADOU García to bulk picker for Pt., 170, cm, 08/24/19 9:21:00 [...]
--- OUTSIDE RECORDS SUMMARY | 2023-07-12 20:11 | XMS_ITS | Continuity of Care Document ---
Author Name Unknown Organization [facility] Address [address] [place] [id number]- Care Team Providers Care Groundskeeping Yardman Name Role Phone Conner QUEEN, Namrata Agarwal Primary Care Physician [phone] Encounter [facility] Date(s): 02/12/22 - 03/14/22 [facility] [address] [place] [id number]- Allergies, Adverse Reactions, Alerts Substance Reaction Severity [...] 8:29:00 EDT, Powder, Route to Pharmacy Electronically, [id number], [facility] - Spr... Start Date: 01/07/22 Stop Date: 01/02/23 Status: Ordered Albuterol (Eqv-ProAir HFA) 90 mcg/inh inhalation aerosol 2 puffs, Inhalation, Every 6 hours, # 8.5 Gm, 11 Refills, 08/25/21 12:34:00 EST, [facility] [id number], 25, 2 puffs Inhalation Every 6 hours, 173, cm, 08/25/21 12:31:00 EST, Height, 84, kg, 04/19/21 2:36:00 EDT, Dry Weight Start Date: 08/25/21 Status: Ordered amLODIPine 10 mg oral tablet 10 mg, 1, tablet, By Mouth, Daily, # 30 tablet, Refills 11, Tot. Refills 11, Maintenance, 08/27/21 16:46:00 EST, Route to Pharmacy Electronically, [facility] [id number], 173,cm, 08/25/21 12:31:00 EST, Height, 84, kg, 04/19/21... Start Date: 08/27/21 Status: Ordered aspirin 81 mg oral tablet, chewable 81 mg, 1, tablet, By Mouth, Daily, # 120 tablet, Refills 3, Tot. Refills 3, Maintenance, 10/02/21 11:47:00 EST, Route to Pharmacy Electronically, [facility] [id number], Partial fill upon patient request if the prescription is... Start Date: 10/02/21 Stop Date: 01/25/23 Status: Ordered atorvastatin 80 mg oral tablet 1 tablet = 80 mg, By Mouth, Daily, # 30 tablet, 11 Refills, Maintenance, 11/07/21 14:34:00 EST, Tablet, [facility] [id number], Partial fill upon patient request if the prescription is for a schedule II opioid drug., 170, cm, 0... Start Date: 11/07/21 Status: Ordered atovaquone 750 mg/5 mL oral suspension 10 mL = 1,500 mg, By Mouth, Daily, for 60 days, # 600 mL, 11 Refills, Acute 10/28/23 14:35:00 EST, 11/07/21 14:35:00 EST, Suspension, [place], [place] - [id number], Pls cancel bactrim prescription. Atovaquone to replace bactrim, 170,... Start Date: 11/07/21 Stop Date: 10/28/23 Status: Ordered Biktarvy oral tablet 1 tablet, By Mouth, Daily, # 30 tablet, 11 Refills, [employer], 30, TAKE ONE TABLET BY MOUTH DAILY, 173, cm, 04/21/21 8:17:00 EDT, Height, 84, kg, 04/19/21 2:36:00 EDT, Dry Weight Start Date: 06/25/21 Status: Ordered Colace sodium 100 mg oral capsule 100 mg, 1, capsule, By Mouth, 2 times a day, PRN, # 60 capsule, Refills 11, Tot. Refills 11, Maintenance, for constipation, 12/02/21 16:54:00 EDT, Route to Pharmacy Electronically, [facility] [id number], Partial fill upon pilar... Start Date: 12/02/21 [...] 1 Refills, Soft Stop, 03/05/22 10:37:00 EDT, [facility] [id number], Partial fill upon patient request if the prescriptio... Start Date: 03/05/22 Status: Ordered ergocalciferol 27903 iu oral capsule 50,000 International_Units, 1, capsule, By Mouth, Every week, for 30 days, # 5 capsule, Refills 1, Tot. Refills 1, Acute 05/04/22 10:22:00 EDT, 03/05/22 10:22:00 EDT, Route to Pharmacy Electronically, [facility] [id number], 17... Start Date: 03/05/22 Stop Date: 05/04/22 Status: Ordered hydrocortisone 0.5% topical cream See Instructions, use sparingly on face, use on all other affected areas, # 28 Gm, 11 Refills, Maintenance, 03/07/21 6:50:00 EDT, [facility], [facility] [id number], use sparingly on face, use on all other affected areas, 174, cm, 01/13/21... Start Date: 03/07/21 Status: Ordered Incruse Ellipta 62.5 mcg/inh inhalation powder 1 puffs, Inhalation, Every 24 hours, doses should be taken AT least 24 HOURS APART, # 30 Unknown, 11 Refills, 08/25/21 12:34:00 EST, [facility], [facility] [id number], 173, cm, 08/25/21 12:31:00 EST, Height, 84, kg, 04/19/21 2:36:00 EDT,... Start Date: 08/25/21 Status: Ordered ketoconazole 2% topical cream 1 application, Topically, Daily, # 30 Gm, 11 Refills, Maintenance, 12/02/21 16:56:00 EDT, [facility] [id number], 1 application Topically Daily, 170, cm, 10/10/21 [...] Maintenance, 11/11/21 17:22:00 EST, Tablet, [facility] [id number], 170, cm, 10/10/21 13:45... Start Date: 11/11/21 Stop Date: 12/11/21 Status: Ordered multivitamin with minerals Calcium and Magnesium oral tablet 1 tablet, By Mouth, Daily, # 30 tablet, 11 Refills, Maintenance, 12/15/21 6:32:00 EDT, Tablet, [facility], [facility] [id number], 1 tablet By Mouth Daily, 173, cm, 12/05/21 17:38:00 EDT,Height, 127, kg, 12/05/21 17:38:00 EDT, Dry Weight Start Date: 12/15/21 Status: Ordered Narcan 4 mg/0.1 mL nasal spray See Instructions, 4 mg Once may repeat every 2 to 3 minutes until patient responds, # 2 each, 3 Refills, Soft Stop, 03/05/22 10:07:00 EDT, [facility], [facility] [id number], 173, cm, 12/05/21 17:38:00 EDT, Height, 127, kg, 12/05/21 17:38... Start Date: 03/05/22 Status: Ordered Nicotine 2 mg gum 1 each = 2 mg, Chew, Every 2 hours, PRN as needed for smoking cessation, for 4 week(s), # 160 each,11 Refills, Acute 09/11/22 12:53:00 EST, 10/10/21 12:53:00 EST, Gum, [facility],[place] - [id number], Partial fill upon patient request... Start Date: 10/10/21 Stop Date: 09/11/22 Status: Ordered ondansetron 4 mg oral tablet, disintegrating 1 tablet = 4 mg, By Mouth, Every 8 hours, PRN as needed for nausea/vomiting, # 12 tablet, 11 Refills, Maintenance, 08/21/21 13:33:00 EST, DIS Tablet, [facility], [place] - [id number], Partial fill upon patient request if the [...] Refills, Maintenance, 12/02/21 16:55:00 EDT, REC Powder, [facility] [id number], 17 Gm By Mouth 2 times a day,x30 days,PRN:Constip... Start Date: 12/02/21 Stop Date: 04/01/22 Status: Ordered rOPINIRole 0.5 mg oral tablet 1 tablet = 0.5 mg, By Mouth, Daily at bedtime, 1 to 3 hours before bedtime, # 30 tablet, 11 Refills, Maintenance, 08/21/21 13:32:00 EST, Tablet, [facility] [id number], Partial fill upon patient request if the prescription is f... Start Date: 08/21/21 Status: Ordered Senna 8.6 mg oral tablet 1 or 2 tablets, By Mouth, Daily at bedtime, PRN, # 60 tablet, Refills 5, Tot. Refills 5, Maintenance, Constipation, 10/10/21 14:43:00 EST, Route to Pharmacy Electronically, [facility] [id number] Tablet, Partial fill upon patie... Start Date: 10/10/21 Status: Ordered sildenafil 100 mg oral tablet 1 tablet = 100 mg, By Mouth, Daily, 1 hour before sexual activity, # 20 tablet, 11 Refills, Maintenance, 03/07/21 6:49:00 EDT, Tablet, [facility] [id number], Partial fill upon patient request if the prescription is for a sched... Start Date: 03/07/21 Status: Ordered varenicline 1mg tablet 1 tablet = 1 mg, By Mouth, Daily, 0.5 tab daily x 3 days then 0.5 tab BID x 3 days then 1 tab BID, # 30 tablet, 4 Refills, Maintenance, 11/13/21 15:15:00 EST, Tablet, [facility] [place], [place] - [id number], Partial fill upon patient request if... Start Date: 11/13/21 Status: Ordered Problem List Condition Effective Dates Status Health Status Inform ant Latex allergy(Confirmed) Active Allergy to shellfish(Confirmed) Active Stroke -2021(Confirmed) 09/2021 Active Chronic active hepatitis C - [...]
--- OUTSIDE RECORDS SUMMARY | 2023-07-12 20:11 | XMS_ITS | Continuity of Care Document ---
Author Name Unknown Organization [facility] Address [address] [place] [address]- Care Team Providers Care Peer Tutor Name Role Phone Conner QUEEN, Namrata Agarwal Primary Care Physician [phone] Encounter [facility] Date(s): 11/04/21 - 12/04/21 [facility] [address], [place] [address] Allergies, Adverse Reactions, Alerts Substance [...] 13:14:00 EST, Powder, Route to Pharmacy Electronically, [id number], [facility] - [facility]... Start Date: 08/21/21 Stop Date: 01/18/22 Status: Ordered Albuterol (Eqv-ProAir HFA) 90 mcg/inh inhalation aerosol 2 puffs, Inhalation, Every 6 hours, # 8.5 Gm, 11 Refills, 08/25/21 12:34:00 EST, [facility] [id number], 25, 2 puffs Inhalation Every 6 hours, 173, cm, 08/25/21 12:31:00 EST, Height, 84, kg, 04/19/21 2:36:00 EDT, Dry Weight Start Date: 08/25/21 Status: Ordered amLODIPine 10 mg oral tablet 10 mg, 1, tablet, By Mouth, Daily, # 30 tablet, Refills 11, Tot. Refills 11, Maintenance, 08/27/21 16:46:00 EST, Route to Pharmacy Electronically, [facility] [id number], 173,cm, 08/25/21 12:31:00 EST, Height, 84, kg, 04/19/21... Start Date: 08/27/21 Status: Ordered aspirin 81 mg oral tablet, chewable 81 mg, 1, tablet, By Mouth, Daily, # 120 tablet, Refills 3, Tot. Refills 3, Maintenance, 10/02/21 11:47:00 EST, Route to Pharmacy Electronically, [facility] [id number], Partial fill upon patient request if the prescription is... Start Date: 10/02/21 Stop Date: 01/25/23 Status: Ordered atorvastatin 80 mg oral tablet 1 tablet = 80 mg, By Mouth, Daily, # 30 tablet, 11 Refills, Maintenance, 11/07/21 14:34:00 EST, Tablet, [facility] [id number], Partial fill upon patient request if the prescription is for a schedule II opioid drug., 170, cm, 0... Start Date: 11/07/21 Status: Ordered atovaquone 750 mg/5 mL oral suspension 10 mL = 1,500 mg, By Mouth, Daily, for 60 days, # 600 mL, 11 Refills, Acute 10/28/23 14:35:00 EST, 11/07/21 14:35:00 EST, Suspension, [facility] [id number], Pls cancel bactrim prescription. Atovaquone to replace bactrim, 170,... Start Date: 11/07/21 Stop Date: 10/28/23 Status: Ordered Biktarvy oral tablet 1 tablet, By Mouth, Daily, # 30 tablet, 11 Refills, [facility], 30, TAKE ONE TABLET BY [...] 12/02/21 16:54:00 EDT, Route to Pharmacy Electronically, [facility] [place], [place] - [id number], Partial fill upon pilar... Start Date: 12/02/21 [...] FOR CONSTIPATION, # 60 each, 2 Refills, [facility], 170, cm, 10/10/21 13:45:00 EST, Height, 110, kg, 09/29/21 21:14:00 EST, Dry Weight Start Date: 12/01/21 Status: Ordered hydrocortisone 0.5% topical cream See Instructions, use sparingly on face, use on all other affected areas, # 28 Gm, 11 Refills, Maintenance, 03/07/21 6:50:00 EDT, [facility] [id number], use sparingly on face, use on all other affected areas, 174, cm, 01/13/21... Start Date: 03/07/21 Status: Ordered Incruse Ellipta 62.5 mcg/inh inhalation powder 1 puffs, Inhalation, Every 24 hours, doses should be taken AT least 24 HOURS APART, # 30 Unknown, 11 Refills, 08/25/21 12:34:00 EST, [facility] [id number], 173, cm, 08/25/21 12:31:00 EST, Height, 84, kg, 04/19/21 2:36:00 EDT,... Start Date: 08/25/21 Status: Ordered ketoconazole 2% topical cream 1 application, Topically, Daily, # 30 Gm, 11 Refills, Maintenance, 12/02/21 16:56:00 EDT, [facility] [id number], 1 application Topically Daily, 170, cm, 10/10/21 [...] 0 Refills, Maintenance, 11/11/21 17:22:00 EST, Tablet, [facility] [id number], 170, cm, 10/10/21 13:45... Start Date: 11/11/21 Stop Date: 12/11/21 Status: Ordered multivitamin with minerals Calcium and Magnesium oral tablet 1 tablet, By Mouth, Daily, # 30 tablet, 11 Refills, Maintenance, 03/07/21 6:51:00 EDT, Tablet, [facility] [id number], 1 tablet By Mouth Daily, 174, cm, 01/13/21 8:20:00 EDT, Height, 93, kg, 01/08/21 18:17:00 EDT, Dry Weight Start Date: 03/07/21 Status: Ordered Narcan 4 mg/0.1 mL nasal spray See Instructions, 4 mg Once may repeat every 2 to 3 minutes until patient responds, # 2 each, 1 Refills, Soft Stop, 08/24/19 9:41:00 EST, [place], [place] -, MAMADOU García to chicken picker for Pt., 170, cm, 08/24/19 9:21:00 EST, Height, 66.36,... Start Date: 08/24/19 Status: Ordered Nicotine 2 mg gum 1 each = 2 mg, Chew, Every 2 hours, PRN as needed for smoking cessation, for 4 week(s), # 160 each,11 Refills, Acute 09/11/22 12:53:00 EST, 10/10/21 12:53:00 EST, Gum, [facility] [id number], Partial fill upon patient request... Start Date: [...] Refills, Maintenance, 08/21/21 13:33:00 EST, DIS Tablet, [facility] [id number], Partial fill upon patient request if the [...] 10/02/21 11:47:00 EST, Route to Pharmacy Electronically, [facility] [id number], Partial fill upon patient request if the prescription is f... Start Date: 10/02/21 Stop Date: 12/31/21 Status: Ordered polyethylene glycol 3350 oral powder for reconstitution See Instructions, DISSOLVE 17grams powder IN WATER BEFORE drinking 2 (two) times a day NEEDED FOR CONSTIPATION, # 510 Gm, 11 Refills, [facility], 30, DISSOLVE 17grams powder IN WATER BEFORE drinking 2 (two) times a day NEEDED FOR CONSTIPATI... Start Date: 09/03/21 Status: Ordered polyethylene glycol 3350 oral powder for reconstitution = 17 Gm, By Mouth, 2 times a day, PRN Constipation, dissolve in water before taking, # 527 Gm, 3 Refills, Maintenance, 12/02/21 16:55:00 EDT, REC Powder, [facility] [id number], 17 Gm By Mouth 2 times a day,x30 days,PRN:Constip... Start Date: 12/02/21 Stop Date: 04/01/22 Status: Ordered rOPINIRole 0.5 mg oral tablet 1 tablet = 0.5 mg, By Mouth, Daily at bedtime, 1 to 3 hours before bedtime, # 30 tablet, 11 Refills, Maintenance, 08/21/21 13:32:00 EST, Tablet, [facility] [id number], Partial fill upon patient request if the prescription is f... Start Date: 08/21/21 Status: Ordered Senna 8.6 mg oral tablet 1 or 2 tablets, By Mouth, Daily at bedtime, PRN, # 60 tablet, Refills 5, Tot. Refills 5, Maintenance, Constipation, 10/10/21 14:43:00 EST, Route to Pharmacy Electronically, [facility] [id number] Tablet, Partial fill upon patie... Start Date: 10/10/21 Status: Ordered sildenafil 100 mg oral tablet 1 tablet = 100 mg, By Mouth, Daily, 1 hour before sexual activity, # 20 tablet, 11 Refills, Maintenance, 03/07/21 6:49:00 EDT, Tablet, [facility] [id number], Partial fill upon patient request if the prescription is for a sched... Start Date: 03/07/21 Status: Ordered varenicline 1mg tablet 1 tablet = 1 mg, By Mouth, Daily, 0.5 tab daily x 3 days then 0.5 tab BID x 3 days then 1 tab BID, # 30 tablet, 4 Refills, Maintenance, 11/13/21 15:15:00 EST, Tablet, [facility] [id number], Partial fill upon patient request if... 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
--- OUTSIDE RECORDS SUMMARY | 2023-07-12 20:11 | XMS_ITS | Continuity of Care Document ---
Author Name Unknown Organization [facility] y Address [address] [place] [address]- Care Team Providers Care Application Support Name Role Phone Namrata Prieto MD Primary Care Physician [phone] Encounter [facility] Date(s): 02/06/21 - 03/08/21 [facility] [address], [place] [address] Attending Physician: Admhelen, [place] Admitting Physician: Admtr, [place] Referring Physician: [...] 03/07/21 6:50:00 EDT, Route to Pharmacy Electronically, [place], [place] - [id number], 174, cm, 01/13/21 8:20:00 EDT, Height, 93, kg, 01/08/21 18:... Start Date: 03/07/21 Status: Ordered atovaquone 750 mg/5 mL oral suspension 10 mL = 1,500 mg, By Mouth, Daily, for 60 days, # 600 mL, 11 Refills, Acute 02/25/23 6:50:00 EDT, 03/07/21 6:50:00 EDT, Suspension, [place], [place] - [id number], Pls cancel bactrim prescription. Atovaquone to replace bactrim, 174, cm... Start Date: 03/07/21 Stop Date: 02/25/23 Status: Ordered Biktarvy oral tablet 1 tablet, By Mouth, Daily, for 30 days, # 30 tablet, 11 Refills, Hard Stop 05/23/21 16:35:00 EDT, 05/28/20 16:35:00 EDT, Tablet, [facility] [id number], 1 tablet By Mouth Daily,x30 days, 171, cm, 05/28/20 16:01:00 EDT, Height,... Start Date: 05/28/20 Stop Date: 05/23/21 Status: Ordered Colace sodium 100 mg oral capsule 100 mg, 1, capsule, By Mouth, 2 times a day, PRN, # 60 capsule, Refills 11, Tot. Refills 11, Maintenance, for constipation, 05/28/20 16:34:00 EDT, Route to Pharmacy Electronically, [facility] [id number], 171, cm, 05/28/20 16:0... Start Date: 05/28/20 Status: Ordered hydrocortisone 0.5% topical cream See Instructions, use sparingly on face, use on all other affected areas, # 28 Gm, 11 Refills, Maintenance, 03/07/21 6:50:00 EDT, [facility] [id number], use sparingly on face, use on all other affected areas, 174, cm, 01/13/21... Start Date: 03/07/21 Status: Ordered ketoconazole 2% topical shampoo 1 application, Topically, Daily, try daily for 5 days as a shampoo, # 120 mL, 11 Refills, Soft Stop, 03/07/21 6:51:00 EDT, Shampoo, [facility] [id number], 1 application Topically Daily,Instr:try daily for 5 [...] 0 Refills, Maintenance, 07/08/20 15:34:00 EST, Tablet, [facility], 3 tablet By Mouth Daily,x12 [...] 11 Refills, Maintenance, 03/07/21 6:51:00 EDT, Tablet, [place], [place] - [id number], 1 tablet By Mouth Daily, 174, cm, 01/13/21 8:20:00 EDT, Height, 93, kg, 01/08/21 18:17:00 EDT, Dry Weight Start Date: 03/07/21 Status: Ordered Narcan 4 mg/0.1 mL nasal spray See Instructions, 4 mg Once may repeat every 2 to 3 minutes until patient responds, # 2 each, 1 Refills, Soft Stop, 08/24/19 9:41:00 EST, [place], [place] -, MAMADOU García to package pick up for Pt., 170, cm, 08/24/19 9:21:00 EST, Height, 66.36,... Start Date: 08/24/19 Status: Ordered ondansetron 4 mg oral tablet, disintegrating 1 tablet = 4 mg, By Mouth, Every 8 hours, PRN as needed for nausea/vomiting, # 12 tablet, 0 Refills, Maintenance, 12/08/20 19:19:00 EDT, DIS Tablet, [place], [place] - [id number], Partial fill upon patient request if the [...] Refills, Maintenance, 11/28/19 9:42:00 EDT, REC Powder, [place], [place] -, 17 Gm By Mouth 2 [...] 11 Refills, Maintenance, 03/07/21 6:49:00 EDT, Tablet, [place], [place] - [id number], Partial fill upon patient request if the prescription is for a sched... 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
--- OUTSIDE RECORDS SUMMARY | 2023-07-12 20:11 | XMS_ITS | Continuity of Care Document ---
Author Name Unknown Organization [facility] Address [address] [place] [address]- Care Team Providers Care Waste Disposal Plant Operator Name Role Phone Conner QUEEN, Namrata Agarwal Primary Care Physician [phone] [facility]counter [facility] Date(s): 08/26/21 - 09/25/21 [facility] [address] [place] [id number] Allergies, Adverse Reactions, Alerts Substance [...] 13:14:00 EST, Powder, Route to Pharmacy Electronically, [id number], [facility] - Spri... Start Date: 08/21/21 Stop Date: 01/18/22 Status: Ordered Albuterol (Eqv-ProAir HFA) 90 mcg/inh inhalation aerosol 2 puffs, Inhalation, Every 6 hours, # 8.5 Gm, 11 Refills, 08/25/21 12:34:00 EST, [facility] - [place], [place] - [id number], 25, 2 puffs Inhalation Every 6 hours, 173, cm, 08/25/21 12:31:00 EST, Height, 84, kg, 04/19/21 2:36:00 EDT, Dry Weight Start Date: 08/25/21 Status: Ordered amLODIPine 10 mg oral tablet 10 mg, 1, tablet, By Mouth, Daily, # 30 tablet, Refills 11, Tot. Refills 11, Maintenance, 08/27/21 16:46:00 EST, Route to Pharmacy Electronically, [place], [place] - [id number], 173,cm, 08/25/21 12:31:00 EST, Height, 84, kg, 04/19/21... Start Date: 08/27/21 Status: Ordered atovaquone 750 mg/5 mL oral suspension 10 mL = 1,500 mg, By Mouth, Daily, for 60 days, # 600 mL, 11 Refills, Acute 02/25/23 6:50:00 EDT, 03/07/21 6:50:00 EDT, Suspension, [place], [place] - [id number], Pls cancel bactrim prescription. Atovaquone to replace bactrim, 174, cm... Start Date: 03/07/21 Stop Date: 02/25/23 Status: Ordered Biktarvy oral tablet 1 tablet, By Mouth, Daily, # 30 tablet, 11 Refills, [facility], 30, TAKE ONE TABLET BY MOUTH [...] FOR CONSTIPATION, # 60 each, 5 Refills, [facility], 173, cm, 04/21/21 8:17:00 EDT, Height, 84, kg, 04/19/21 2:36:00 EDT, Dry Weight Start Date: 06/02/21 Status: Ordered hydrocortisone 0.5% topical cream See Instructions, use sparingly on face, use on all other affected areas, # 28 Gm, 11 Refills, Maintenance, 03/07/21 6:50:00 EDT, [place], [place] - [id number], use sparingly on face, use on all other affected areas, 174, cm, 01/13/21... Start Date: 03/07/21 Status: Ordered Incruse Ellipta 62.5 mcg/inh inhalation powder 1 puffs, Inhalation, Every 24 hours, doses should be taken AT least 24 HOURS APART, # 30 Unknown, 11 Refills, 08/25/21 12:34:00 EST, [place], [place] - [id number], 173, cm, 08/25/21 12:31:00 EST, Height, 84, kg, 04/19/21 2:36:00 EDT,... Start Date: 08/25/21 Status: Ordered ketoconazole 2% topical cream See Instructions, APPLY TO THE AFFECTED AREA TOPICALLY 2 (two) times a day. USE ON THE FACE, # 60 Gm, 11 Refills, [facility], 30, APPLY TO THE AFFECTED [...] 11 Refills, Maintenance, 03/07/21 6:51:00 EDT, Tablet, [place], [place] - [id number], 1 tablet By Mouth Daily, 174, cm, 01/13/21 8:20:00 EDT, Height, 93, kg, 01/08/21 18:17:00 EDT, Dry Weight Start Date: 03/07/21 Status: Ordered Narcan 4 mg/0.1 mL nasal spray See Instructions, 4 mg Once may repeat every 2 to 3 minutes until patient responds, # 2 each, 1 Refills, Soft Stop, 08/24/19 9:41:00 EST, [facility], 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 Start Date: 08/24/19 Status: Ordered ondansetron 4 mg oral tablet, disintegrating 1 tablet = 4 mg, By Mouth, Every 8 hours, PRN as needed for nausea/vomiting, # 12 tablet, 11 Refills, Maintenance, 08/21/21 13:33:00 EST, DIS Tablet, [place], [place] - [id number], Partial fill upon patient request if the [...] Refills, Maintenance, 11/28/19 9:42:00 EDT, REC Powder, [facility], 17 Gm By Mouth 2 times [...] 11 Refills, Maintenance, 08/21/21 13:32:00 EST, Tablet, [facility] [id number], Partial fill upon patient request if the prescription is f... Start Date: 08/21/21 Status: Ordered sildenafil 100 mg oral tablet 1 tablet = 100 mg, By Mouth, Daily, 1 hour before sexual activity, # 20 tablet, 11 Refills, Maintenance, 03/07/21 6:49:00 EDT, Tablet, [facility] [id number], Partial fill upon patient request if the prescription is for a sched... 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
--- OUTSIDE RECORDS SUMMARY | 2023-07-12 20:11 | XMS_ITS | Continuity of Care Document ---
Author Name Unknown Organization [facility] Address [address] [place] [address]- Care Team Providers Care Regulatory Affairs Portfolio Leader Name Role Phone Conner QUEEN, Namrata Agarwal Primary Care Physician [facility] Date[facility]s): 06/03/22 - 07/03/22 [facility] [address] [place] [id number] Allergies, Adverse Reactions, Alerts Substance [...] 8:29:00 EDT, Powder, Route to Pharmacy Electronically, [id number], [facility] - Spr... Start Date: 01/07/22 Stop Date: 01/02/23 Status: Ordered Albuterol (Eqv-ProAir HFA) 90 mcg/inh inhalation aerosol 2 puffs, Inhalation, Every 6 hours, # 8.5 Gm, 11 Refills, 08/25/21 12:34:00 EST, [facility] [id number], 25, 2 puffs Inhalation Every 6 hours, 173, cm, 08/25/21 12:31:00 EST, Height, 84, kg, 04/19/21 2:36:00 EDT, Dry Weight Start Date: 08/25/21 Status: Ordered amLODIPine 10 mg oral tablet 10 mg, 1, tablet, By Mouth, Daily, # 30 tablet, Refills 11, Tot. Refills 11, Maintenance, 08/27/21 16:46:00 EST, Route to Pharmacy Electronically, [facility] [id number], 173,cm, 08/25/21 12:31:00 EST, Height, 84, kg, 04/19/21... Start Date: 08/27/21 Status: Ordered Asperflex 4% topical film 1 patch, Topically, Daily, for 30 days, # 30 patch, 11 Refills, Acute 03/12/23 14:41:00 EDT, 03/17/22 14:41:00 EDT, [facility] [id number], Partial fill upon patient request if the prescription is for a schedule II opioid drug.... Start Date: 03/17/22 Stop Date: 03/12/23 Status: Ordered aspirin 81 mg oral tablet, chewable 81 mg, 1, tablet, By Mouth, Daily, # 120 tablet, Refills 3, Tot. Refills 3, Maintenance, 10/02/21 11:47:00 EST, Route to Pharmacy Electronically, [facility] [id number], Partial fill upon patient request if the prescription is... Start Date: 10/02/21 Stop Date: 01/25/23 Status: Ordered atorvastatin 80 mg oral tablet 1 tablet = 80 mg, By Mouth, Daily, # 30 tablet, 11 Refills, Maintenance, 11/07/21 14:34:00 EST, Tablet, [facility] [id number], Partial fill upon patient request if the prescription is for a schedule II opioid drug., 170, cm, 0... Start Date: 11/07/21 Status: Ordered Biktarvy oral tablet 1 tablet, By Mouth, Daily, # 30 tablet, 11 Refills, [facility], 30, TAKE ONE TABLET BY MOUTH [...] 1 Refills, Soft Stop, 03/05/22 10:37:00 EDT, [facility] [id number], Partial fill upon patient request if the prescriptio... Start Date: 03/05/22 Status: Ordered hydrocortisone 0.5% topical cream See Instructions, use sparingly on face, use on all other affected areas, # 28 Gm, 11 Refills, Maintenance, 03/07/21 6:50:00 EDT, [facility] [id number], use sparingly on face, use on all other affected areas, 174, cm, 01/13/21... Start Date: 03/07/21 Status: Ordered Incruse Ellipta 62.5 mcg/inh inhalation powder 1 puffs, Inhalation, Every 24 hours, doses should be taken AT least 24 HOURS APART, # 30 Unknown, 11 Refills, 08/25/21 12:34:00 EST, [facility] [id number], 173, cm, 08/25/21 12:31:00 EST, Height, 84, kg, 04/19/21 2:36:00 EDT,... Start Date: 08/25/21 Status: Ordered ketoconazole 2% topical cream 1 application, Topically, Daily, # 30 Gm, 11 Refills, Maintenance, 04/20/22 9:23:00 EDT, [facility] [id number], 1 application Topically Daily, 173, cm, 12/05/21 17:38:00 EDT,Height, 127, kg, 12/05/21 17:38:00 EDT, Dry Weight Start Date: 04/20/22 Status: Ordered Lidoderm 5% film 1 patch, Topically, Daily, # 30 patch, 11 Refills, Maintenance, 03/19/22 21:12:00 EDT, [facility] [id number], Partial fill upon patient request if the [...] 11 Refills, Maintenance, 12/15/21 6:32:00 EDT, Tablet, [facility] [id number], 1 tablet By Mouth Daily, 173, cm, 12/05/21 17:38:00 EDT,Height, 127, kg, 12/05/21 17:38:00 EDT, Dry Weight Start Date: 12/15/21 Status: Ordered Narcan 4 mg/0.1 mL nasal spray See Instructions, 4 mg Once may repeat every 2 to 3 minutes until patient responds, # 2 each, 3 Refills, Soft Stop, 03/05/22 10:07:00 EDT, [facility] [id number], 173, cm, 12/05/21 17:38:00 EDT, Height, 127, kg, 12/05/21 17:38... Start Date: 03/05/22 Status: Ordered Nicotine 2 mg gum 1 each = 2 mg, Chew, Every 2 hours, PRN as needed for smoking cessation, for 4 week(s), # 160 each,11 Refills, Acute 09/11/22 12:53:00 EST, 10/10/21 12:53:00 EST, Gum, [facility] [id number], Partial fill upon patient request... Start Date: 10/10/21 Stop Date: 09/11/22 Status: Ordered ondansetron 4 mg oral tablet, disintegrating 1 tablet = 4 mg, By Mouth, Every 8 hours, PRN as needed for nausea/vomiting, # 12 tablet, 11 Refills, Maintenance, 08/21/21 13:33:00 EST, DIS Tablet, [facility] [id number], Partial fill upon patient request if the [...] Refills, Maintenance, 12/02/21 16:55:00 EDT, REC Powder, [facility] [id number], 17 Gm By Mouth 2 times a day,x30 days,PRN:Constip... Start Date: 12/02/21 Stop Date: 04/01/22 Status: Ordered rOPINIRole 0.5 mg oral tablet 1 tablet = 0.5 mg, By Mouth, Daily at bedtime, 1 to 3 hours before bedtime, # 30 tablet, 11 Refills, Maintenance, 08/21/21 13:32:00 EST, Tablet, [facility] [id number], Partial fill upon patient request if the prescription is f... Start Date: 08/21/21 Status: Ordered sildenafil 100 mg oral tablet 1 tablet = 100 mg, By Mouth, Daily, 1 hour before sexual activity, # 20 tablet, 11 Refills, Maintenance, 04/20/22 9:24:00 EDT, Tablet, [facility] [id number], disreguard last script for 0.5 tab, 173, cm, 12/05/21 17:38:00 EDT,... Start Date: 04/20/22 Status: Ordered varenicline 1mg tablet 1 tablet = 1 mg, By Mouth, Daily, 0.5 tab daily x 3 days then 0.5 tab BID x 3 days then 1 tab BID, # 30 tablet, 4 Refills, Maintenance, 04/01/22 16:45:00 EDT, Tablet, [facility] [id number], Partial fill upon patient request if... Start [...] 11 Refills, Maintenance, 06/04/22 17:32:00 EDT, Capsule, [facility] [id number], D/c vitamin high dosed, 173, cm, 05/10/22 [...] 01/2019 Confirmed Active Depression - Olinda dawn [facility] Confirmed Active Diastolic dysfunction 1 [...] Name: Conner QUEEN, Namrata Agarwal Address: Address: [address] [place] [address], -[facility] [place], [place] [address]
--- OUTSIDE RECORDS SUMMARY | 2023-07-12 20:11 | XMS_ITS | Continuity of Care Document ---
Author Name Unknown Organization [facility] Address [address] [place] [address]- Care Team Providers Care Track Repair Person Name Role Phone Conner QUEEN, Namrata Agarwal Primary Care Physician [phone] Encounter [facility] Date(s): 05/28/22 - 06/27/22 [facility] [address] [place] [id number] Attending Physician: Admhelen, [place] Admitting Physician: Admtr, [...] 8:29:00 EDT, Powder, Route to Pharmacy Electronically, [id number], [facility] - Spr... Start Date: 01/07/22 Stop Date: 01/02/23 Status: Ordered Albuterol (Eqv-ProAir HFA) 90 mcg/inh inhalation aerosol 2 puffs, Inhalation, Every 6 hours, # 8.5 Gm, 11 Refills, 08/25/21 12:34:00 EST, [facility] [id number], 25, 2 puffs Inhalation Every 6 hours, 173, cm, 08/25/21 12:31:00 EST, Height, 84, kg, 04/19/21 2:36:00 EDT, Dry Weight Start Date: 08/25/21 Status: Ordered amLODIPine 10 mg oral tablet 10 mg, 1, tablet, By Mouth, Daily, # 30 tablet, Refills 11, Tot. Refills 11, Maintenance, 08/27/21 16:46:00 EST, Route to Pharmacy Electronically, [facility] [id number], 173,cm, 08/25/21 12:31:00 EST, Height, 84, kg, 04/19/21... Start Date: 08/27/21 Status: Ordered Asperflex 4% topical film 1 patch, Topically, Daily, for 30 days, # 30 patch, 11 Refills, Acute 03/12/23 14:41:00 EDT, 03/17/22 14:41:00 EDT, [facility] [id number], Partial fill upon patient request if the prescription is for a schedule II opioid drug.... Start Date: 03/17/22 Stop Date: 03/12/23 Status: Ordered aspirin 81 mg oral tablet, chewable 81 mg, 1, tablet, By Mouth, Daily, # 120 tablet, Refills 3, Tot. Refills 3, Maintenance, 10/02/21 11:47:00 EST, Route to Pharmacy Electronically, [place], [place] - [id number], Partial fill upon patient request if the prescription is... Start Date: 10/02/21 Stop Date: 01/25/23 Status: Ordered atorvastatin 80 mg oral tablet 1 tablet = 80 mg, By Mouth, Daily, # 30 tablet, 11 Refills, Maintenance, 11/07/21 14:34:00 EST, Tablet, [place], [place] - [id number], Partial fill upon patient request if the [...] 1 Refills, Soft Stop, 03/05/22 10:37:00 EDT, [facility] [id number], Partial fill upon patient request if the prescriptio... Start Date: 03/05/22 Status: Ordered hydrocortisone 0.5% topical cream See Instructions, use sparingly on face, use on all other affected areas, # 28 Gm, 11 Refills, Maintenance, 03/07/21 6:50:00 EDT, [facility] [id number], use sparingly on face, use on all other affected areas, 174, cm, 01/13/21... Start Date: 03/07/21 Status: Ordered Incruse Ellipta 62.5 mcg/inh inhalation powder 1 puffs, Inhalation, Every 24 hours, doses should be taken AT least 24 HOURS APART, # 30 Unknown, 11 Refills, 08/25/21 12:34:00 EST, [facility] [id number], 173, cm, 08/25/21 12:31:00 EST, Height, 84, kg, 04/19/21 2:36:00 EDT,... Start Date: 08/25/21 Status: Ordered ketoconazole 2% topical cream 1 application, Topically, Daily, # 30 Gm, 11 Refills, Maintenance, 04/20/22 9:23:00 EDT, [facility], [facility] [id number], 1 application Topically Daily, 173, cm, 12/05/21 17:38:00 EDT,Height, 127, kg, 12/05/21 17:38:00 EDT, Dry Weight Start Date: 04/20/22 Status: Ordered Lidoderm 5% film 1 patch, Topically, Daily, # 30 patch, 11 Refills, Maintenance, 03/19/22 21:12:00 EDT, [facility], [facility] [id number], Partial fill upon patient request if the [...] 11 Refills, Maintenance, 12/15/21 6:32:00 EDT, Tablet, [facility], [facility] [id number], 1 tablet By Mouth Daily, 173, cm, 12/05/21 17:38:00 EDT,Height, 127, kg, 12/05/21 17:38:00 EDT, Dry Weight Start Date: 12/15/21 Status: Ordered Narcan 4 mg/0.1 mL nasal spray See Instructions, 4 mg Once may repeat every 2 to 3 minutes until patient responds, # 2 each, 3 Refills, Soft Stop, 03/05/22 10:07:00 EDT, [facility], [facility] [id number], 173, cm, 12/05/21 17:38:00 EDT, Height, 127, kg, 12/05/21 17:38... Start Date: 03/05/22 Status: Ordered Nicotine 2 mg gum 1 each = 2 mg, Chew, Every 2 hours, PRN as needed for smoking cessation, for 4 week(s), # 160 each,11 Refills, Acute 09/11/22 12:53:00 EST, 10/10/21 12:53:00 EST, Gum, [facility] [id number], Partial fill upon patient request... Start Date: 10/10/21 Stop Date: 09/11/22 Status: Ordered ondansetron 4 mg oral tablet, disintegrating 1 tablet = 4 mg, By Mouth, Every 8 hours, PRN as needed for nausea/vomiting, # 12 tablet, 11 Refills, Maintenance, 08/21/21 13:33:00 EST, DIS Tablet, [facility] [id number], Partial fill upon patient request if the [...] Refills, Maintenance, 12/02/21 16:55:00 EDT, REC Powder, [facility] [id number], 17 Gm By Mouth 2 times a day,x30 days,PRN:Constip... Start Date: 12/02/21 Stop Date: 04/01/22 Status: Ordered rOPINIRole 0.5 mg oral tablet 1 tablet = 0.5 mg, By Mouth, Daily at bedtime, 1 to 3 hours before bedtime, # 30 tablet, 11 Refills, Maintenance, 08/21/21 13:32:00 EST, Tablet, [facility], [facility] [id number], Partial fill upon patient request if the prescription is f... Start Date: 08/21/21 Status: Ordered sildenafil 100 mg oral tablet 1 tablet = 100 mg, By Mouth, Daily, 1 hour before sexual activity, # 20 tablet, 11 Refills, Maintenance, 04/20/22 9:24:00 EDT, Tablet, [facility] [id number], disreguard last script for 0.5 tab, 173, cm, 12/05/21 17:38:00 EDT,... Start Date: 04/20/22 Status: Ordered varenicline 1mg tablet 1 tablet = 1 mg, By Mouth, Daily, 0.5 tab daily x 3 days then 0.5 tab BID x 3 days then 1 tab BID, # 30 tablet, 4 Refills, Maintenance, 04/01/22 16:45:00 EDT, Tablet, [facility] [id number], Partial fill upon patient request if... Start [...] 11 Refills, Maintenance, 06/04/22 17:32:00 EDT, Capsule, [place], [place] - [id number], D/c vitamin high dosed, 173, cm, 05/10/22 20:46:00 EDT, Height, 95.5, kg, 05/10/22 20:46:00 EDT... 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
--- OUTSIDE RECORDS SUMMARY | 2023-07-12 20:11 | XMS_ITS | Continuity of Care Document ---
Author Name Unknown Organization [facility] Address [address] [place] [address]- Care Team Providers Care Contract Agent Name Role Phone Conner QUEEN, Namrata Agarwal Primary Care Physician [facility] Date(s): 01/21/22 - 02/20/22 [facility] [address] [place] [address]- Allergies, Adverse Reactions, Alerts Substance Reaction Severity [...] 8:29:00 EDT, Powder, Route to Pharmacy Electronically, [id number], [facility] - Spr... Start Date: 01/07/22 Stop Date: 01/02/23 Status: Ordered Albuterol (Eqv-ProAir HFA) 90 mcg/inh inhalation aerosol 2 puffs, Inhalation, Every 6 hours, # 8.5 Gm, 11 Refills, 08/25/21 12:34:00 EST, [facility] [id number], 25, 2 puffs Inhalation Every 6 hours, 173, cm, 08/25/21 12:31:00 EST, Height, 84, kg, 04/19/21 2:36:00 EDT, Dry Weight Start Date: 08/25/21 Status: Ordered amLODIPine 10 mg oral tablet 10 mg, 1, tablet, By Mouth, Daily, # 30 tablet, Refills 11, Tot. Refills 11, Maintenance, 08/27/21 16:46:00 EST, Route to Pharmacy Electronically, [facility] [id number], 173,cm, 08/25/21 12:31:00 EST, Height, 84, kg, 04/19/21... Start Date: 08/27/21 Status: Ordered aspirin 81 mg oral tablet, chewable 81 mg, 1, tablet, By Mouth, Daily, # 120 tablet, Refills 3, Tot. Refills 3, Maintenance, 10/02/21 11:47:00 EST, Route to Pharmacy Electronically, [facility] [id number], Partial fill upon patient request if the prescription is... Start Date: 10/02/21 Stop Date: 01/25/23 Status: Ordered atorvastatin 80 mg oral tablet 1 tablet = 80 mg, By Mouth, Daily, # 30 tablet, 11 Refills, Maintenance, 11/07/21 14:34:00 EST, Tablet, [facility] [id number], Partial fill upon patient request if the prescription is for a schedule II opioid drug., 170, cm, 0... Start Date: 11/07/21 Status: Ordered atovaquone 750 mg/5 mL oral suspension 10 mL = 1,500 mg, By Mouth, Daily, for 60 days, # 600 mL, 11 Refills, Acute 10/28/23 14:35:00 EST, 11/07/21 14:35:00 EST, Suspension, [facility] [id number], Pls cancel bactrim prescription. Atovaquone to replace bactrim, 170,... Start Date: 11/07/21 Stop Date: 10/28/23 Status: Ordered Biktarvy oral tablet 1 tablet, By Mouth, Daily, # 30 tablet, 11 Refills, [facility], 30, TAKE ONE TABLET BY [...] 12/02/21 16:54:00 EDT, Route to Pharmacy Electronically, [facility] - [place], [place] - [id number], Partial fill upon pilar... Start Date: 12/02/21 [...] FOR CONSTIPATION, # 60 each, 2 Refills, [facility], 170, cm, 10/10/21 13:45:00 EST, Height, 110, kg, 09/29/21 21:14:00 EST, Dry Weight Start Date: 12/01/21 Status: Ordered hydrocortisone 0.5% topical cream See Instructions, use sparingly on face, use on all other affected areas, # 28 Gm, 11 Refills, Maintenance, 03/07/21 6:50:00 EDT, [facility] [id number], use sparingly on face, use on all other affected areas, 174, cm, 01/13/21... Start Date: 03/07/21 Status: Ordered Incruse Ellipta 62.5 mcg/inh inhalation powder 1 puffs, Inhalation, Every 24 hours, doses should be taken AT least 24 HOURS APART, # 30 Unknown, 11 Refills, 08/25/21 12:34:00 EST, [facility] [id number], 173, cm, 08/25/21 12:31:00 EST, Height, 84, kg, 04/19/21 2:36:00 EDT,... Start Date: 08/25/21 Status: Ordered ketoconazole 2% topical cream 1 application, Topically, Daily, # 30 Gm, 11 Refills, Maintenance, 12/02/21 16:56:00 EDT, [facility] [id number], 1 application Topically Daily, 170, cm, 10/10/21 [...] 0 Refills, Maintenance, 11/11/21 17:22:00 EST, Tablet, [facility] [id number], 170, cm, 10/10/21 13:45... Start Date: 11/11/21 Stop Date: 12/11/21 Status: Ordered multivitamin with minerals Calcium and Magnesium oral tablet 1 tablet, By Mouth, Daily, # 30 tablet, 11 Refills, Maintenance, 12/15/21 6:32:00 EDT, Tablet, [facility] [id number], 1 tablet By Mouth Daily, 173, cm, 12/05/21 17:38:00 EDT,Height, 127, kg, 12/05/21 17:38:00 EDT, Dry Weight Start Date: 12/15/21 Status: Ordered Narcan 4 mg/0.1 mL nasal spray See Instructions, 4 mg Once may repeat every 2 to 3 minutes until patient responds, # 2 each, 1 Refills, Soft Stop, 08/24/19 9:41:00 EST, [place], [place] -, MAMADOU García to [employer] for [employer]., 170, cm, 08/24/19 9:21:00 EST, Height, 66.36,... Start Date: 08/24/19 Status: Ordered Nicotine 2 mg gum 1 each = 2 mg, Chew, Every 2 hours, PRN as needed for smoking cessation, for 4 week(s), # 160 each,11 Refills, Acute 09/11/22 12:53:00 EST, 10/10/21 12:53:00 EST, Gum, [facility] [id number], Partial fill upon patient request... Start Date: [...] Refills, Maintenance, 08/21/21 13:33:00 EST, DIS Tablet, [facility] [id number], Partial fill upon patient request if the [...] 10/02/21 11:47:00 EST, Route to Pharmacy Electronically, [facility] [id number], Partial fill upon patient request if the prescription is f... Start Date: 10/02/21 Stop Date: 12/31/21 Status: Ordered polyethylene glycol 3350 oral powder for reconstitution See Instructions, DISSOLVE 17grams powder IN WATER BEFORE drinking 2 (two) times a day NEEDED FOR CONSTIPATION, # 510 Gm, 11 Refills, [facility], 30, DISSOLVE 17grams powder IN WATER BEFORE drinking 2 (two) times a day NEEDED FOR CONSTIPATI... Start Date: 09/03/21 Status: Ordered polyethylene glycol 3350 oral powder for reconstitution = 17 Gm, By Mouth, 2 times a day, PRN Constipation, dissolve in water before taking, # 527 Gm, 3 Refills, Maintenance, 12/02/21 16:55:00 EDT, REC Powder, [facility], [place] - [id number], 17 Gm By Mouth 2 times a day,x30 days,PRN:Constip... Start Date: 12/02/21 Stop Date: 04/01/22 Status: Ordered rOPINIRole 0.5 mg oral tablet 1 tablet = 0.5 mg, By Mouth, Daily at bedtime, 1 to 3 hours before bedtime, # 30 tablet, 11 Refills, Maintenance, 08/21/21 13:32:00 EST, Tablet, [facility] [id number], Partial fill upon patient request if the prescription is f... Start Date: 08/21/21 Status: Ordered Senna 8.6 mg oral tablet 1 or 2 tablets, By Mouth, Daily at bedtime, PRN, # 60 tablet, Refills 5, Tot. Refills 5, Maintenance, Constipation, 10/10/21 14:43:00 EST, Route to Pharmacy Electronically, [facility] [id number] Tablet, Partial fill upon patie... Start Date: 10/10/21 Status: Ordered sildenafil 100 mg oral tablet 1 tablet = 100 mg, By Mouth, Daily, 1 hour before sexual activity, # 20 tablet, 11 Refills, Maintenance, 03/07/21 6:49:00 EDT, Tablet, [facility] [id number], Partial fill upon patient request if the prescription is for a sched... Start Date: 03/07/21 Status: Ordered varenicline 1mg tablet 1 tablet = 1 mg, By Mouth, Daily, 0.5 tab daily x 3 days then 0.5 tab BID x 3 days then 1 tab BID, # 30 tablet, 4 Refills, Maintenance, 11/13/21 15:15:00 EST, Tablet, [facility] [id number], Partial fill upon patient request if... 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
--- OUTSIDE RECORDS SUMMARY | 2023-07-12 20:11 | XMS_ITS | Continuity of Care Document ---
Author Name Unknown Organization [facility] y Address [address] [place] [address]- Care Team Providers Care Television Servicer Name Role Phone Long ON AIR ANNOUNCER, Giovanna Bernard Primary Care Physician En[place] [facility] [place](s): 09/19/19 - 10/21/19 [facility] Specialty [address] [place] [address]- Attending Physician: Isidoro Neely MD Admitting Physician: [...] 09/26/19 12:05:00 EST, Route to Pharmacy Electronically, [place], [place] -, 172, cm, 09/26/19 8:57:00 EST, Height, 66.3, kg, 09/11/19 13:26:00 EST... Start Date: 09/26/19 Status: Ordered atovaquone 750 mg/5 mL oral suspension 10 mL = 1,500 mg, By Mouth, Daily, for 60 days, # 600 mL, 5 Refills, Acute 08/18/20 9:40:00 EST, 08/24/19 9:40:00 EST, Suspension, [place], [place] -, Pls cancel bactrim prescription. Atovaquone to replace bactrim, 170, cm, 08/24/19 9... Start Date: 08/24/19 Stop Date: 08/18/20 Status: Ordered Biktarvy oral tablet 1 tablet, By Mouth, Daily, # 30 tablet, 5 Refills, Maintenance, 08/24/19 9:40:00 EST, Tablet, [place], [place] -, 1 tablet By Mouth Daily,x30 [...] 09/26/19 12:05:00 EST, Route to Pharmacy Electronically, [place], [place] -, 172, cm, 09/26/19 8:57:00 EST, [place]... Start Date: 09/26/19 Status: Ordered fluconazole 200 mg oral tablet 1 tablet = 200 mg, By Mouth, Daily, for 28 days, # 28 tablet, 5 Refills, Acute 02/08/20 9:42:00 EDT, 08/24/19 9:42:00 EST, Tablet, [place], [place] -, Decrease in dose., 170, cm, 08/24/19 9:21:00 EST, Height, 66.36, kg, 03/10/19 16:51... Start Date: 08/24/19 Stop Date: 02/08/20 Status: Ordered gabapentin 100 mg oral capsule 200 mg, 2, capsule, By Mouth, 3 times a day, # 180 capsule, Refills 0, Tot. Refills 0, Maintenance,09/26/19 12:07:00 EST, Route to Pharmacy Electronically, [place], [place] -, 172, cm, 09/26/19 8:57:00 EST, Height, 66.3, kg, 09/11/19... Start Date: 09/26/19 Status: Ordered lithium 300 mg oral capsule 2 capsule = 600 mg, By Mouth, Daily at bedtime, # 60 capsule, 0 Refills, Maintenance, 09/26/19 12:09:00 EST, [place], [place] -, 172, cm, 09/26/19 8:57:00 EST, Height, 66.3, kg, 09/11/19 13:26:00 EST, Dry Weight Start Date: 09/26/19 Status: Ordered lithium 300 mg oral tablet 1 tablet = 300 mg, By Mouth, Daily, # 30 tablet, 0 Refills, Maintenance, 09/26/19 12:08:00 EST, Tablet, [place], [place] -, 172, cm, 09/26/19 8:57:00 EST, [...] 0 Refills, Maintenance, 09/26/19 12:07:00 EST, Tablet, [place], [place] -, 172, cm, 09/26/19 8:57:00 EST, Height, 66.3, kg,09/11/19 13:26:00 EST, Dry Weight Start Date: 09/26/19 Status: Ordered multivitamin with minerals Calcium and Magnesium oral tablet 1 tablet, By Mouth, Daily, # 30 tablet, 5 Refills, Maintenance, 09/26/19 12:05:00 EST, Tablet, [place], [place] -, 1 tablet By Mouth Daily,x30 days, 172, cm, 09/26/19 8:57:00 EST, Height, 66.3, kg, 09/11/19 13:26:00 EST, Dry Weight Start Date: 09/26/19 Stop Date: 03/24/20 Status: Ordered Narcan 4 mg/0.1 mL nasal spray See Instructions, 4 mg Once may repeat every 2 to 3 minutes until patient responds, # 2 each, 1 Refills, Soft Stop, 08/24/19 9:41:00 EST, [facility] [place] -, 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
--- OUTSIDE RECORDS SUMMARY | 2023-07-12 20:11 | XMS_ITS | Continuity of Care Document ---
Author Name Unknown Organization [facility] y Address [address] [place] [address]- Care Team Providers Care Casserole Preparer Name Role Phone Long QUARTER INSPECTOR, Giovanna Bernard Primary Care Physician [place] [facility] [place] 12/21/19 - 12/28/19 [facility] Specialty [address] [place] [address]- Attending Physician: Isidoro Neely MD Allergies, Adverse Reactions, [...] to Pharmacy Electronically, [facility] [place], [place] -, 172, cm, 09/26/19 8:57:00 EST, Height, 66.3, kg, 09/11/19 13:26:00 EST,... Start Date: 11/28/19 Stop Date: 05/26/20 Status: Ordered atovaquone 750 mg/5 mL oral suspension 10 mL = 1,500 mg, By Mouth, Daily, for 60 days, # 600 mL, 5 Refills, Acute 11/22/20 9:44:00 EDT, 11/28/19 9:44:00 EDT, Suspension, [facility] [place], [place] -, Pls cancel bactrim prescription. Atovaquone to replace bactrim, 172, cm, 09/26/19 8... Start Date: 11/28/19 Stop Date: 11/22/20 Status: Ordered Biktarvy oral tablet 1 tablet, By Mouth, Daily, # 30 tablet, 5 Refills, Maintenance, 08/24/19 9:40:00 EST, Tablet, [place], [place] -, 1 tablet By Mouth Daily,x30 [...] 09/26/19 12:05:00 EST, Route to Pharmacy Electronically, [place], [place] -, 172, cm, 09/26/19 8:57:00 EST, [place]... Start Date: 09/26/19 Status: Ordered fluconazole 200 mg oral tablet 1 tablet = 200 mg, By Mouth, Daily, for 28 days, # 28 tablet, 5 Refills, Acute 02/08/20 9:42:00 EDT, 08/24/19 9:42:00 EST, Tablet, [place], [place] -, Decrease in dose., 170, cm, 08/24/19 9:21:00 EST, Height, 66.36, kg, 03/10/19 16:51... Start Date: 08/24/19 Stop Date: 02/08/20 Status: Ordered gabapentin 100 mg oral capsule 200 mg, 2, capsule, By Mouth, 3 times a day, # 180 capsule, Refills 3, Tot. Refills 3, Maintenance,11/28/19 9:44:00 EDT, Route to Pharmacy Electronically, [place], [place] -, 172, cm, 09/26/19 8:57:00 EST, Height, 66.3, kg, 09/11/19... Start Date: 11/28/19 Stop Date: 03/27/20 Status: Ordered hydrocortisone 0.5% topical cream See Instructions, apply in a thin film to the hands and rub in gently 3 times a day for 5 days, # 28 Gm, 0 Refills, Acute 12/20/20 12:12:00 EDT, 12/21/19 11:57:00 EDT, [place], [place] -, apply in a thin film to the hands and rub in g... Start Date: 12/21/19 Stop Date: 12/20/20 Status: Ordered ketoconazole 2% topical shampoo 1 application, Topically, Daily, try daily for 5 days as a shampoo, # 120 mL, 3 Refills, Soft Stop,12/21/19 11:58:00 EDT, Shampoo, [place], [place] -, 1 application Topically Daily,Instr:try daily for 5 days as a shampoo, 172, cm, 01... Start Date: 12/21/19 Status: Ordered lithium 300 mg oral capsule 2 capsule = 600 mg, By Mouth, Daily at bedtime, # 60 capsule, 3 Refills, Maintenance, 11/28/19 9:41:00 EDT, [place], [place] -, 172, cm, 09/26/19 8:57:00 EST, [...] tablet, 5 Refills, Maintenance, 11/28/19 9:41:00EDT, Tablet, [place], [place] -, 172, cm, 09/26/19 8:57:00 EST, Height, 66.3, kg, 09/11/19 13:26:00 EST, Dry Weight Start Date: 11/28/19 Stop Date: 05/26/20 Status: Ordered multivitamin with minerals Calcium and Magnesium oral tablet 1 tablet, By Mouth, Daily, # 30 tablet, 5 Refills, Maintenance, 09/26/19 12:05:00 EST, Tablet, [place], [place] -, 1 tablet By Mouth Daily,x30 days, 172, cm, 09/26/19 8:57:00 EST, Height, 66.3, kg, 09/11/19 13:26:00 EST, Dry Weight Start Date: 09/26/19 Stop Date: 03/24/20 Status: Ordered Narcan 4 mg/0.1 mL nasal spray See Instructions, 4 mg Once may repeat every 2 to 3 minutes until patient responds, # 2 each, 1 Refills, Soft Stop, 08/24/19 9:41:00 EST, [place], [place] -, 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
--- OUTSIDE RECORDS SUMMARY | 2023-07-12 20:11 | XMS_ITS | Continuity of Care Document ---
Author Name Unknown Organization [facility] y Address [address] [place] [address]- Care Team Providers Care Boom Tender Name Role Phone Conner QUEEN, Namrata Agarwal Primary Care Physician Encounter [facility] [place] [place] Date(s): 01/21/23 - 02/20/23 [facility] Specialty [address], [place] [address] Attending Physician: Angeles De La Rosa Admitting [...] 8:46:00 EST, Powder, Route to Pharmacy Electronically, [id number], [facility]... Start Date: 07/20/22 Stop Date: 07/15/23 Status: Ordered amLODIPine 10 mg oral tablet 10 mg, 1, tablet, By Mouth, Daily, # 90 tablet, Refills 3, Tot. Refills 3, Maintenance, 02/16/23 10:45:00 EDT, Route to Pharmacy Electronically, [facility] [id number], 173, cm, 01/21/23 11:36:00 EDT, Height, 93.18, kg, 2... Start Date: 02/16/23 Status: Ordered aspirin 81 mg oral tablet, chewable 81 mg, 1, tablet, By Mouth, Daily, # 90 tablet, Refills 3, Tot. Refills 3, Maintenance, 02/16/23 10:45:00 EDT, Route to Pharmacy Electronically, [facility] [id number], Partial fill upon patient request if the prescription is f... Start Date: 02/16/23 Status: Ordered atorvastatin 80 mg oral tablet 1 tablet = 80 mg, By Mouth, Daily, # 90 tablet, 3 Refills, Maintenance, 02/16/23 10:45:00 EDT, Tablet, [facility] [id number], Partial fill upon patient request if the prescription is for a schedule II opioid drug., 173, cm, 05... Start Date: 02/16/23 Status: Ordered Biktarvy oral tablet 1 tablet, By Mouth, Daily, must get appt and labs for refills, # 30 tablet, 0 Refills, Maintenance,12/16/22 19:18:00 EDT, [facility] [id number], 30, 1 tablet By Mouth Daily,Instr:must get [...] 02/16/23 10:45:00 EDT, Route to Pharmacy Electronically, [facility] [id number], Partial fill upon patie... Start Date: 02/16/23 Status: Ordered Crutches See Instructions, # 1 [...] 1 Refills, Soft Stop, 03/05/22 10:37:00 EDT, [place], [place] - [id number], Partial fill upon patient request if the prescriptio... Start Date: 03/05/22 Status: Ordered fluticasone-salmeterol 250 mcg-50 mcg inhalation powder 1, puffs, Inhalation, 2 times a day, # 3 each, Refills 3, Tot. Refills 3, Maintenance, 02/16/23 10:45:00 EDT, Powder, Route to Pharmacy Electronically, [id number], [place], [place] - [id number], 173, cm, 01/04... Start Date: 02/16/23 Status: Ordered home COVID tests home COVID [...] each, 3 Refills, Maintenance, 02/16/23 10:45:00 EDT, [place], [place] - [id number], 173, cm, 01/21/23 11:36:00 EDT, Height, 93.18, kg, 08/12/22 0:40:00 EST, Dry Weight Start Date: 02/16/23 Status: Ordered ketoconazole 2% topical cream 1 application, Topically, Daily, # 30 Gm, 11 Refills, Maintenance, 04/20/22 9:23:00 EDT, [facility], [facility] [id number], 1 application Topically Daily, 173, cm, 12/05/21 17:38:00 EDT,Height, 127, kg, 12/05/21 17:38:00 EDT, Dry Weight Start Date: 04/20/22 Status: Ordered Lidoderm 5% film 1 patch, Topically, Daily, # 30 patch, 11 Refills, Maintenance, 03/19/22 21:12:00 EDT, [facility], [facility] [id number], Partial fill upon patient request if the [...] 11 Refills, Maintenance, 07/20/22 8:43:00 EST, Tablet, [facility], [place] - [id number], 1 tablet By Mouth Daily, 173, cm, 05/10/22 20:46:00 EDT,Height, 95.5, kg, 05/10/22 20:46:00 EDT, Dry Weight Start Date: 07/20/22 Status: Ordered Narcan 4 mg/0.1 mL nasal spray See Instructions, 4 mg Once may repeat every 2 to 3 minutes until patient responds, # 2 each, 3 Refills, Soft Stop, 03/05/22 10:07:00 EDT, [facility], [facility] [id number], 173, cm, 12/05/21 17:38:00 EDT, Height, 127, kg, 12/05/21 17:38... Start Date: 03/05/22 Status: Ordered pantoprazole 40 mg oral delayed release tablet 1 tablet = 40 mg, By Mouth, Daily, # 90 tablet, 3 Refills, Maintenance, 02/16/23 10:45:00 EDT, [facility] Tablet, 173, cm, 01/21/23 11:36:00 EDT, Height, 93.18, kg, 08/12/22 0:40:00 EST, Dry Weight Start Date: 02/16/23 Status: Ordered permethrin 5% topical cream 1 application, Topically, Once, Apply to skin from head to soles. Leave on 8-10 hours then wash off; repeat in 14 days;, # 60 mL, 1 Refills, Soft Stop, 12/24/22 11:37:00 EDT, Lotion, [facility] [id number], Partial fill upon pa... Start Date: 12/24/22 Status: Ordered polyethylene glycol 3350 oral powder for reconstitution = 17 Gm, By Mouth, 2 times a day, PRN Constipation, dissolve in water before taking, # 527 Gm, 3 Refills, Maintenance, 12/02/21 16:55:00 EDT, REC Powder, [facility] [id number], 17 Gm By Mouth 2 times a day,x30 days,PRN:Constip... Start Date: 12/02/21 Stop Date: 04/01/22 Status: Ordered rOPINIRole 0.5 mg oral tablet 1 tablet = 0.5 mg, By Mouth, Daily at bedtime, 1 to 3 hours before bedtime, # 90 tablet, 3 Refills,Maintenance, 02/16/23 10:45:00 EDT, Tablet, [facility] [id number], Partialfill upon patient request if the prescription is fo... Start Date: 02/16/23 Status: Ordered Senna 8.6 mg oral tablet 1 or 2 tablets, By Mouth, Daily at bedtime, PRN, Must make appt and get labs for refills, # 180 tablet, Refills 3, Tot. Refills 3, Maintenance, Constipation, 02/16/23 10:45:00 EDT, Route to Pharmacy Electronically, [place], [place] -... Start Date: 02/16/23 Status: Ordered sildenafil 100 mg oral tablet 1 tablet = 100 mg, By Mouth, Daily, 1 hour before sexual activity, # 20 tablet, 11 Refills, Maintenance, 04/20/22 9:24:00 EDT, Tablet, [facility] [id number], disreguard last script for 0.5 tab, 173, cm, 12/05/21 17:38:00 EDT,... Start Date: 04/20/22 Status: Ordered varenicline 1mg tablet 1 tablet = 1 mg, By Mouth, Daily, 0.5 tab daily x 3 days then 0.5 tab BID x 3 days then 1 tab BID, # 30 tablet, 4 Refills, Maintenance, 09/04/22 15:20:00 EST, Tablet, [facility] [id number], Partial fill upon patient request if... Start Date: 09/04/22 Status: Ordered Ventolin HFA 108 mcg/inh inhalation aerosol with adapter 2 puffs, Inhalation, 4 times a day, PRN for wheezing, # 3 each, 3 Refills, Maintenance, 02/16/23 10:45:00 EDT, Aerosol, [facility] [id number], Partial fill upon patient request if the prescription is for a schedule II opioid d... Start Date: 02/16/23 Status: Ordered Vitamin D3 1000 intl units oral capsule 1 capsule = 25 mcg, By Mouth, Daily, # 90 capsule, 3 Refills, Maintenance, 02/16/23 10:45:00 EDT, Capsule, [facility] [id number], D/c vitamin high dosed, 173, cm, 01/21/23 11:36:00 EDT, Height, 93.18, kg, 08/12/22 0:40:00 EST,... Start Date: 02/16/23 Status: Ordered Wheeled Walker with seat Wheeled [...] - 01/2019 Confirmed Active Depression - [facility], [facility] Confirmed Active Diastolic dysfunction 1 [...] Team Personnel Name: Jadiel Watson RN Position: [facility] ED RN W/OE and Tasks Member Role: Primary Care Nurse Name: Dede Mccloud RN Position: [facility] RN Member Role: Primary Care Nurse Name: Judy Gonzales RN Position: [facility] RN Member Role: Primary Care Nurse Name: Enma Manriquez RN Position: [facility] AMB Nurse Member Role: Primary Care Nurse Name: Zuhair Lopez RN Position: [facility] RN Member Role: Primary Care Nurse Name: Edie Bob RN Position: [facility] RN Member Role: Primary Care Nurse Name: Lisbet Gardiner RN Position: [facility] RN Member Role: Primary Care Nurse Name: Namrata Prieto MD Position: [facility] Physician - Primary Care Member Role: PCP Address: Address: [address] [place] [address]- Name: Carolina Valero RN Position: [facility] RN Member Role: Primary Care Nurse Name: Nishi San RN Position: [facility] RN Member Role: Primary Care Nurse Name: Micky Boyd RN Position: [facility] RN Member Role: Primary Care Nurse Name: Lauri Combs NP Position: Reference Physician Member Role: Primary Care Nurse Address: Address: [address] [facility] [place] [address]- [place] Care Team Related Persons Name: JASWINDER LUIS Address: [place] [address] Name: BROOKE OWEN Address: home [address] [address] Name: KARYN OWEN Address: home [address] [place] [address] Name: DOMINGO LEONE Address: home [address] [place] [address]
--- OUTSIDE RECORDS SUMMARY | 2023-07-12 20:11 | XMS_ITS | Continuity of Care Document ---
Author Name Unknown Organization [facility] Address [address] [place] [address]- Care Team Providers Care Slate Handler Name Role Phone Conner QUEEN, Namrata Agarwal Primary Care Physician [facility] 09[facility]/22 - 10/01/22 [facility] [address] [place] [address]- Allergies, Adverse Reactions, Alerts Substance Reaction Severity [...] 8:46:00 EST, Powder, Route to Pharmacy Electronically, [id number], [facility] - Spr... Start Date: 07/20/22 Stop Date: 07/15/23 Status: Ordered Albuterol (Eqv-ProAir HFA) 90 mcg/inh inhalation aerosol 2 puffs, Inhalation, Every 6 hours, # 8.5 Gm, 11 Refills, 08/25/21 12:34:00 EST, [facility] [id number], 25, 2 puffs Inhalation Every 6 hours, 173, cm, 08/25/21 12:31:00 EST, Height, 84, kg, 04/19/21 2:36:00 EDT, Dry Weight Start Date: 08/25/21 Status: Ordered amLODIPine 10 mg oral tablet 10 mg, 1, tablet, By Mouth, Daily, # 30 tablet, Refills 11, Tot. Refills 11, Maintenance, 07/20/22 8:43:00 EST, Route to Pharmacy Electronically, [facility] [id number], 173, cm, 05/10/22 20:46:00 EDT, Height, 95.5, kg, ... Start Date: 07/20/22 Status: Ordered Asperflex 4% topical film 1 patch, Topically, Daily, for 30 days, # 30 patch, 11 Refills, Acute 03/12/23 14:41:00 EDT, 03/17/22 14:41:00 EDT, [facility] [id number], Partial fill upon patient request if the prescription is for a schedule II opioid drug.... Start Date: 03/17/22 Stop Date: 03/12/23 Status: Ordered aspirin 81 mg oral tablet, chewable 81 mg, 1, tablet, By Mouth, Daily, # 30 tablet, Refills 11, Tot. Refills 11, Maintenance, 07/20/22 8:43:00 EST, Route to Pharmacy Electronically, [facility] [id number], Partial fill upon patient request if the prescription is... Start Date: 07/20/22 Stop Date: 11/12/23 Status: Ordered atorvastatin 80 mg oral tablet 1 tablet = 80 mg, By Mouth, Daily, # 30 tablet, 11 Refills, Maintenance, 07/20/22 8:43:00 EST, Tablet, [facility] [id number], Partial fill upon patient request if the prescription is for a schedule II opioid drug., 173, cm, 09... Start Date: 07/20/22 Status: Ordered Biktarvy oral tablet 1 tablet, By Mouth, Daily, # 30 tablet, 5 Refills, Maintenance, 07/20/22 8:36:00 EST, [facility], [facility] [id number], 30, 1 tablet By Mouth Daily, 173, [...] 1 Refills, Soft Stop, 03/05/22 10:37:00 EDT, [facility] [id number], Partial fill upon patient request if the [...] Gm, 11 Refills, Maintenance, 03/07/21 6:50:00 EDT, [facility] [id number], use sparingly on face, use on all other affected areas, 174, cm, 01/13/21... Start Date: 03/07/21 Status: Ordered Incruse Ellipta 62.5 mcg/inh inhalation powder See Instructions, INHALE 1 PUFF BY MOUTH INTO THE lungs EVERY 24 HOURS. doses should be taken AT least 24 HOURS APART, # 30 Unknown, 5 Refills, Maintenance, 09/02/22 20:23:00 EST, [facility], 173, cm, 08/12/22 0:40:00 EST, Height, 93.18, kg, 12/0... Start Date: 09/02/22 Status: Ordered ketoconazole 2% topical cream 1 application, Topically, Daily, # 30 Gm, 11 Refills, Maintenance, 04/20/22 9:23:00 EDT, [facility], [facility] [id number], 1 application Topically Daily, 173, cm, 12/05/21 17:38:00 EDT,Height, 127, kg, 12/05/21 17:38:00 EDT, Dry Weight Start Date: 04/20/22 Status: Ordered Lidoderm 5% film 1 patch, Topically, Daily, # 30 patch, 11 Refills, Maintenance, 03/19/22 21:12:00 EDT, [facility], [place] - [id number], Partial fill upon patient request if the [...] Maintenance, 07/20/22 8:43:00 EST, Tablet, [facility], [place] - [id number], 1 tablet By Mouth Daily, 173, cm, 05/10/22 20:46:00 EDT,Height, 95.5, kg, 05/10/22 20:46:00 EDT, Dry Weight Start Date: 07/20/22 Status: Ordered Narcan 4 mg/0.1 mL nasal spray See Instructions, 4 mg Once may repeat every 2 to 3 minutes until patient responds, # 2 each, 3 Refills, Soft Stop, 03/05/22 10:07:00 EDT, [facility] [id number], 173, cm, 12/05/21 17:38:00 EDT, Height, 127, kg, 12/05/21 17:38... Start Date: 03/05/22 Status: Ordered ondansetron 4 mg oral tablet, disintegrating 1 tablet = 4 mg, By Mouth, Every 8 hours, PRN as needed for nausea/vomiting, # 12 tablet, 11 Refills, Maintenance, 08/21/21 13:33:00 EST, DIS Tablet, [facility] [id number], Partial fill upon patient request if the [...] Refills, Maintenance, 12/02/21 16:55:00 EDT, REC Powder, [facility] [id number], 17 Gm By Mouth 2 times a day,x30 days,PRN:Constip... Start Date: 12/02/21 Stop Date: 04/01/22 Status: Ordered rOPINIRole 0.5 mg oral tablet 1 tablet = 0.5 mg, By Mouth, Daily at bedtime, 1 to 3 hours before bedtime, # 30 tablet, 11 Refills, Maintenance, 07/20/22 8:43:00 EST, Tablet, [facility] [id number], Partialfill upon patient request if the prescription is fo... Start Date: 07/20/22 Status: Ordered sildenafil 100 mg oral tablet 1 tablet = 100 mg, By Mouth, Daily, 1 hour before sexual activity, # 20 tablet, 11 Refills, Maintenance, 04/20/22 9:24:00 EDT, Tablet, [facility], [place] - [id number], disreguard last script for 0.5 tab, 173, cm, 12/05/21 17:38:00 EDT,... Start Date: 04/20/22 Status: Ordered varenicline 1mg tablet 1 tablet = 1 mg, By Mouth, Daily, 0.5 tab daily x 3 days then 0.5 tab BID x 3 days then 1 tab BID, # 30 tablet, 4 Refills, Maintenance, 09/04/22 15:20:00 EST, Tablet, [facility], [place] - [id number], Partial fill upon patient request if... Start Date: 09/04/22 Status: Ordered Ventolin HFA 108 mcg/inh inhalation aerosol with adapter 2 puffs, Inhalation, 4 times a day, PRN for wheezing, # 1 each, 11 Refills, Maintenance, 07/20/22 8:44:00 EST, Aerosol, [facility], [facility] [id number], Partial fill upon patient request if the [...] 11 Refills, Maintenance, 06/04/22 17:32:00 EDT, Capsule, [facility], [place] - [id number], D/c vitamin high dosed, 173, cm, 05/10/22 20:46:00 EDT, Height, 95.5, kg, 05/10/22 20:46:00 EDT... Start Date: 06/04/22 Status: Ordered Problem List Condition Confirmation Course Effective Dates Status 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 Depression - [facility] Confirmed Active Diastolic dysfunction 1 Confirmed [...] Team Personnel Name: Jadiel Watson RN Position: [facility] ED RN W/OE and Tasks Member Role: Primary Care Nurse Name: Dede Mccloud RN Position: [facility] RN Member Role: Primary Care Nurse Name: Judy Gonzales RN Position: [facility] RN Member Role: Primary Care Nurse Name: Enma Manriquez RN Position: [facility] RN Member Role: Primary Care Nurse Name: Zuhair Lopez RN Position: [facility] RN Member Role: Primary Care Nurse Name: Cathryn Allen RN Position: [facility] RN Member Role: Primary Care Nurse Name: Edie Bob RN Position: [facility] RN Member Role: Primary Care Nurse Name: Lisbet Gardiner RN Position: [facility] RN Member Role: Primary Care Nurse Name: Namrata Prieto MD Position: [facility] Primary Care Physician Member Role: PCP Address: Address: [address] [place] [address], -[facility] [place] [address]- Name: Carolina Valero RN Position: [facility] RN Member Role: Primary Care Nurse Name: Nishi San RN Position: [facility] RN Member Role: Primary Care Nurse Name: Micky Boyd RN Position: [facility] RN Member Role: Primary Care Nurse Name: Lauri Combs NP Position: Reference Physician Member Role: Primary Care Nurse Address: Address: [address] [facility] [address] Clinical & [place] [address]- Care Team Related Persons Name: LUIS SAN Address: [place] [address] Name: BROOKE OWEN Address: home [address] [address] Name: KARYN OWEN Address: [address] [place] [address] Name: DOMINGO LEONE Address: home [address] [place] [address]
--- OUTSIDE RECORDS SUMMARY | 2023-07-12 20:11 | XMS_ITS | Continuity of Care Document ---
Author Name Unknown Organization [facility] Address [address] [place] [address]- Care Team Providers Care Women'S Studies Professor Name Role Phone Conner QUEEN, Namrata Agarwal Primary Care Physician [phone] [facility]counter [facility] Date[facility] 07/20/22 - 08/19/22 [facility] [address] [place] [address] Allergies, Adverse Reactions, Alerts Substance [...] 8:46:00 EST, Powder, Route to Pharmacy Electronically, [id number], [facility] Spr... Start Date: 07/20/22 Stop Date: 07/15/23 Status: Ordered Albuterol (Eqv-ProAir HFA) 90 mcg/inh inhalation aerosol 2 puffs, Inhalation, Every 6 hours, # 8.5 Gm, 11 Refills, 08/25/21 12:34:00 EST, [facility] [id number], 25, 2 puffs Inhalation Every 6 hours, 173, cm, 08/25/21 12:31:00 EST, Height, 84, kg, 04/19/21 2:36:00 EDT, Dry Weight Start Date: 08/25/21 Status: Ordered amLODIPine 10 mg oral tablet 10 mg, 1, tablet, By Mouth, Daily, # 30 tablet, Refills 11, Tot. Refills 11, Maintenance, 07/20/22 8:43:00 EST, Route to Pharmacy Electronically, [facility] [id number], 173, cm, 05/10/22 20:46:00 EDT, Height, 95.5, kg, ... Start Date: 07/20/22 Status: Ordered Asperflex 4% topical film 1 patch, Topically, Daily, for 30 days, # 30 patch, 11 Refills, Acute 03/12/23 14:41:00 EDT, 03/17/22 14:41:00 EDT, [facility] [id number], Partial fill upon patient request if the prescription is for a schedule II opioid drug.... Start Date: 03/17/22 Stop Date: 03/12/23 Status: Ordered aspirin 81 mg oral tablet, chewable 81 mg, 1, tablet, By Mouth, Daily, # 30 tablet, Refills 11, Tot. Refills 11, Maintenance, 07/20/22 8:43:00 EST, Route to Pharmacy Electronically, [facility] [id number], Partial fill upon patient request if the prescription is... Start Date: 07/20/22 Stop Date: 11/12/23 Status: Ordered atorvastatin 80 mg oral tablet 1 tablet = 80 mg, By Mouth, Daily, # 30 tablet, 11 Refills, Maintenance, 07/20/22 8:43:00 EST, Tablet, [facility] [id number], Partial fill upon patient request if the prescription is for a schedule II opioid drug., 173, cm, 09... Start Date: 07/20/22 Status: Ordered Biktarvy oral tablet 1 tablet, By Mouth, Daily, # 30 tablet, 5 Refills, Maintenance, 07/20/22 8:36:00 EST, [facility] [id number], 30, 1 tablet By Mouth Daily, 173, [...] 1 Refills, Soft Stop, 03/05/22 10:37:00 EDT, [facility], [facility] [id number], Partial fill upon patient request if the prescriptio... Start Date: 03/05/22 Status: Ordered hydrocortisone 0.5% topical cream See Instructions, use sparingly on face, use on all other affected areas, # 28 Gm, 11 Refills, Maintenance, 03/07/21 6:50:00 EDT, [facility] [id number], use sparingly on face, use on all other affected areas, 174, cm, 01/13/21... Start Date: 03/07/21 Status: Ordered Incruse Ellipta 62.5 mcg/inh inhalation powder 1 puffs, Inhalation, Every 24 hours, doses should be taken AT least 24 HOURS APART, # 30 Unknown, 11 Refills, 08/25/21 12:34:00 EST, [facility] [id number], 173, cm, 08/25/21 12:31:00 EST, Height, 84, kg, 04/19/21 2:36:00 EDT,... Start Date: 08/25/21 Status: Ordered ketoconazole 2% topical cream 1 application, Topically, Daily, # 30 Gm, 11 Refills, Maintenance, 04/20/22 9:23:00 EDT, [facility], [facility] [id number], 1 application Topically Daily, 173, cm, 12/05/21 17:38:00 EDT,Height, 127, kg, 12/05/21 17:38:00 EDT, Dry Weight Start Date: 04/20/22 Status: Ordered Lidoderm 5% film 1 patch, Topically, Daily, # 30 patch, 11 Refills, Maintenance, 03/19/22 21:12:00 EDT, [facility] [id number], Partial fill upon patient request if the [...] 11 Refills, Maintenance, 07/20/22 8:43:00 EST, Tablet, [facility], [place] - [id number], 1 tablet By Mouth Daily, 173, cm, 05/10/22 20:46:00 EDT,Height, 95.5, kg, 05/10/22 20:46:00 EDT, Dry Weight Start Date: 07/20/22 Status: Ordered Narcan 4 mg/0.1 mL nasal spray See Instructions, 4 mg Once may repeat every 2 to 3 minutes until patient responds, # 2 each, 3 Refills, Soft Stop, 03/05/22 10:07:00 EDT, [facility], [facility] [id number], 173, cm, 12/05/21 17:38:00 EDT, Height, 127, kg, 12/05/21 17:38... Start Date: 03/05/22 Status: Ordered Nicotine 2 mg gum 1 each = 2 mg, Chew, Every 2 hours, PRN as needed for smoking cessation, for 4 week(s), # 160 each,11 Refills, Acute 09/11/22 12:53:00 EST, 10/10/21 12:53:00 EST, Gum, [facility] [id number], Partial fill upon patient request... Start Date: 10/10/21 Stop Date: 09/11/22 Status: Ordered ondansetron 4 mg oral tablet, disintegrating 1 tablet = 4 mg, By Mouth, Every 8 hours, PRN as needed for nausea/vomiting, # 12 tablet, 11 Refills, Maintenance, 08/21/21 13:33:00 EST, DIS Tablet, [facility] [id number], Partial fill upon patient request if the [...] Refills, Maintenance, 12/02/21 16:55:00 EDT, REC Powder, [facility] [id number], 17 Gm By Mouth 2 times a day,x30 days,PRN:Constip... Start Date: 12/02/21 Stop Date: 04/01/22 Status: Ordered rOPINIRole 0.5 mg oral tablet 1 tablet = 0.5 mg, By Mouth, Daily at bedtime, 1 to 3 hours before bedtime, # 30 tablet, 11 Refills, Maintenance, 07/20/22 8:43:00 EST, Tablet, [facility] [id number], Partialfill upon patient request if the prescription is fo... Start Date: 07/20/22 Status: Ordered sildenafil 100 mg oral tablet 1 tablet = 100 mg, By Mouth, Daily, 1 hour before sexual activity, # 20 tablet, 11 Refills, Maintenance, 04/20/22 9:24:00 EDT, Tablet, [facility] [id number], disreguard last script for 0.5 tab, 173, cm, 12/05/21 17:38:00 EDT,... Start Date: 04/20/22 Status: Ordered varenicline 1mg tablet 1 tablet = 1 mg, By Mouth, Daily, 0.5 tab daily x 3 days then 0.5 tab BID x 3 days then 1 tab BID, # 30 tablet, 4 Refills, Maintenance, 04/01/22 16:45:00 EDT, Tablet, [facility] [id number], Partial fill upon patient request if... Start Date: 04/01/22 Status: Ordered Ventolin HFA 108 mcg/inh inhalation aerosol with adapter 2 puffs, Inhalation, 4 times a day, PRN for wheezing, # 1 each, 11 Refills, Maintenance, 07/20/22 8:44:00 EST, Aerosol, [facility] [id number], Partial fill upon patient request if the [...] 11 Refills, Maintenance, 06/04/22 17:32:00 EDT, Capsule, [facility] [id number], D/c vitamin high dosed, 173, cm, 05/10/22 [...] meningitis - 01/2019 Confirmed Active Depression - [facility] Confirmed Active Diastolic dysfunction 1 Confirmed 09/27/21 [...] Team Personnel Name: Jadiel Watson RN Position: [facility] ED RN W/OE and Tasks Member Role: Primary Care Nurse Name: Dede Mccloud RN Position: [facility] RN Member Role: Primary Care Nurse Name: Judy Gonzales RN Position: [facility] RN Member Role: Primary Care Nurse Name: Enma Manriquez RN Position: [facility] RN Member Role: Primary Care Nurse Name: Zuhair Lopez RN Position: [facility] RN Member Role: Primary Care Nurse Name: Cathryn Allen RN Position: [facility] RN Member Role: Primary Care Nurse Name: Edie Bob RN Position: [facility] RN Member Role: Primary Care Nurse Name: Lisbet Gardiner RN Position: [facility] RN Member Role: Primary Care Nurse Name: Namrata Prieto MD Position: [facility] Primary Care Physician Member Role: PCP Address: Address: [address] [place] [address], [facility] [place] [address]- Name: Carolina Valero RN Position: [facility] RN Member Role: Primary Care Nurse Name: Nishi San RN Position: [facility] RN Member Role: Primary Care Nurse Name: Micky Boyd RN Position: S RN Member Role: Primary Care Nurse Name: Lauryn WELLS, Lauri Choi Position: Reference Physician Member Role: Primary Care Nurse Address: Address: [address] [place] [address] [address] Clinical & [place] [address]- [place] Care Team Related Persons Name: LUIS SAN Address: [place] [address] Name: BROOKE OWEN Address: home [address] [address] Name: KARYN OWEN Address: [address] [place] [address] Name: DOMINGO LEONE Address: home [address] [place] [address]
--- OUTSIDE RECORDS SUMMARY | 2023-07-12 20:11 | XMS_ITS | Continuity of Care Document ---
Author Name Unknown Organization [facility] Address [address] [place] [address]- Care Team Providers Care Histology Tech Name Role Phone Conner QUEEN, Namrata Agarwal Primary Care Physician Encounter [facility] Date(s): 07/31/20 - 09/13/[address] [address]- Attending Physician: Not on Staff, Attending MD [...] 05/28/20 16:31:00 EDT, Route to Pharmacy Electronically, [place], [place] - [id number], 171, cm, 05/28/20 16:01:00 EDT, Height, 59.5, kg, 12/29/19... Start Date: 05/28/20 Status: Ordered atovaquone 750 mg/5 mL oral suspension 10 mL = 1,500 mg, By Mouth, Daily, for 60 days, # 600 mL, 11 Refills, Acute 05/18/22 16:35:00 EDT, 05/28/20 16:35:00 EDT, Suspension, [place], [place] - [id number], Pls cancel bactrim prescription. Atovaquone to replace bactrim, 171,... Start Date: 05/28/20 Stop Date: 05/18/22 Status: Ordered azithromycin 500 mg oral tablet 2 tablet = 1,000 mg, By Mouth, Once, take both tablets at once, # 2 tablet, 0 Refills, Soft Stop, 06/27/20 17:56:00 EDT, Tablet, [facility] [id number], 171, cm, 05/28/20 16:01:00 EDT, Height, 59.5, kg, 12/29/19 15:28:00 EDT, D... Start Date: 06/27/20 Status: Ordered Biktarvy oral tablet 1 tablet, By Mouth, Daily, for 30 days, # 30 tablet, 11 Refills, Hard Stop 05/23/21 16:35:00 EDT, 05/28/20 16:35:00 EDT, Tablet, [facility] [id number], 1 tablet By Mouth Daily,x30 days, 171, cm, 05/28/20 16:01:00 EDT, Height,... Start Date: 05/28/20 Stop Date: 05/23/21 Status: Ordered Colace sodium 100 mg oral capsule 100 mg, 1, capsule, By Mouth, 2 times a day, PRN, # 60 capsule, Refills 11, Tot. Refills 11, Maintenance, for constipation, 05/28/20 16:34:00 EDT, Route to Pharmacy Electronically, [facility] [id number], 171, cm, 05/28/20 16:0... Start Date: 05/28/20 [...] 06/28/20 13:01:00 EDT, Route to Pharmacy Electronically, [facility] [id number], 171, cm, 05/28/20 16:01:00 EDT, Height, 59.5... Start Date: 06/28/20 Status: Ordered hydrocortisone 0.5% topical cream See Instructions, use sparingly on face, use on all other affected areas, # 28 Gm, 11 Refills, Maintenance, 05/28/20 16:37:00 EDT, [facility] [id number], use sparingly on face, use on all other affected areas, 171, cm, ... Start Date: 05/28/20 Status: Ordered influenza virus vaccine, inactivated adjuvanted preservative-free quadrivalent intramuscular susp See Instructions, none, # 1 each, 0 Refills, Maintenance, 05/30/20 9:27:00 EDT, [facility], none, 171, cm, 05/28/20 16:01:00 EDT, Height, 59.5, kg, 12/29/19 15:28:00 EDT, Dry Weight Start Date: 05/30/20 Status: Ordered ketoconazole 2% topical cream 1 application, Topically, 2 times a day, for 28 days, use on the face, # 60 Gm, 11 Refills, Acute 04/29/21 16:40:00 EDT, 05/28/20 16:40:00 EDT, Cream, [facility] [id number], 1 application Topically 2 times a day,x28 days,Instr... Start Date: 05/28/20 Stop Date: 04/29/21 Status: Ordered ketoconazole 2% topical shampoo 1 application, Topically, Daily, try daily for 5 days as a shampoo, # 120 mL, 11 Refills, Soft Stop, 05/28/20 16:37:00 EDT, Shampoo, [place], [place] - [id number], 1 application Topically Daily,Instr:try daily for 5 days as a shampoo,... Start Date: 05/28/20 Status: Ordered lithium 300 mg oral capsule 2 capsule = 600 mg, By Mouth, 2 times a day, # 120 capsule, 2 Refills, Maintenance, 06/28/20 12:56:00 EDT, [facility], [facility] [id number], Increase in dose per Psychiatry, 171, cm, 05/28/20 16:01:00 EDT, Height, 59.5, kg, 12/29/19 15:2... Start Date: 06/28/20 Status: Ordered LORazepam 0.5 mg oral tablet 1 tablet = 0.5 mg, By Mouth, 2 times a day, PRN Anxiety, # 60 tablet, 2 Refills, Maintenance, 06/28/20 12:56:00 EDT, Tablet, [facility], [facility] [id number], 171, cm, 05/28/20 16:01:00EDT, Height, 59.5, kg, 12/29/19 15:28:00 EDT, Dry W... Start Date: 06/28/20 Status: Ordered Mavyret 100 mg-40 mg oral tablet 3 tablet, By Mouth, Daily, with food, # 252 tablet, 0 Refills, Maintenance, 07/08/20 15:34:00 EST, Tablet, [facility], 3 tablet By Mouth Daily,x12 [...] Refills, Maintenance, 05/28/20 16:35:00 EDT, Tablet, [facility], [facility] [id number], 171, cm, 05/28/20 16:01:00 EDT, Height, 59.5, kg, 12/29/19 15:28:00 EDT, Dry Weight Start Date: 05/28/20 Stop Date: 11/24/20 Status: Ordered multivitamin with minerals Calcium and Magnesium oral tablet 1 tablet, By Mouth, Daily, # 30 tablet, 11 Refills, Maintenance, 05/28/20 16:35:00 EDT, Tablet, [facility], [facility] [id number], 1 tablet By Mouth Daily, 171, cm, 05/28/20 16:01:00 EDT, Height, 59.5, kg, 12/29/19 15:28:00 EDT, Dry Weight Start Date: 05/28/20 Stop Date: 05/23/21 Status: Ordered Narcan 4 mg/0.1 mL nasal spray See Instructions, 4 mg Once may repeat every 2 to 3 minutes until patient responds, # 2 each, 1 Refills, Soft Stop, 08/24/19 9:41:00 EST, [place], [place] -, MAMADOU García to pick up man for Pt., 170, cm, 08/24/19 9:21:00 EST, Height, 66.36,... Start Date: 08/24/19 Status: Ordered Nicotine 2 mg gum 1 each = 2 mg, Chew, Every 2 hours, PRN as needed for smoking cessation, # 160 each, 3 Refills, Maintenance, 05/28/20 16:51:00 EDT, Gum, [facility], [facility] [id number], 171, cm, 05/28/20 16:01:00 EDT, Height, 59.5, [...] Soft Stop, 05/30/20 9:25:00 EDT, Suspension, [facility], 0.5 mL Intramuscular Once, 171, cm, 05/28/20 16:01:00 EDT, Height, 59.5, kg,12/29/19 15:28:00 EDT, Dry Weight Start Date: 05/30/20 Status: Ordered polyethylene glycol 3350 oral powder for reconstitution = 17 Gm, By Mouth, 2 times a day, PRN Constipation, dissolve in water before taking, # 527 Gm, 3 Refills, Maintenance, 11/28/19 9:42:00 EDT, REC Powder, [place], [place] -, 17 Gm By Mouth 2 times a day,x30 days,PRN:Constipation,Instr:... Start Date: 11/28/19 Stop Date: 03/27/20 Status: Ordered SEROquel 25 mg oral tablet 25 mg, 1, tablet, By Mouth, Daily at bedtime, # 30 tablet, Refills 2, Tot. Refills 2, Maintenance, 06/14/20 20:44:00 EDT, Route to Pharmacy Electronically, [facility], 171, cm, 05/28/20 16:01:00 EDT, Height, 59.5, kg, 12/29/19 15:28:00... Start Date: 06/14/20 Stop Date: 09/12/20 Status: Ordered sildenafil 100 mg oral tablet 1 tablet = 100 mg, By Mouth, Daily, 1 hour before sexual activity, # 10 tablet, 5 Refills, Maintenance, 09/04/20 14:26:00 EST, Tablet, [place], [place] - [id number], Partial fill upon patient request if the [...]
--- OUTSIDE RECORDS SUMMARY | 2023-07-12 20:11 | XMS_ITS | Continuity of Care Document ---
Author Name Unknown Organization [facility] y Address [address] [place] [address]- Care Team Providers Care Manager Real Estate Name Role Phone Calvin DIRECTOR MEDICAL SCIENCE, Giovanna Bernard Primary Care Physician [place] [facility] [place] - 02/10/20 [facility] [address] [place] [address]- Attending Physician: Isidoro Neely MD Allergies, Adverse Reactions, Alerts Substance Reaction Severity Status shellfish Active Latex rash Active Immunizations Given and Recorded Vaccine Date Status Refusal Reason influenza virus vaccine, inactivated 06/08/19 Give n Medications amLODIPine 5 mg oral tablet 5 mg, 1, tablet, By Mouth, Daily, # 30 tablet, Refills 5, Tot. Refills 5, Maintenance, 11/28/19 9:43:00 EDT, Route to Pharmacy Electronically, [facility] - [place], [place] -, 172, cm, 09/26/19 8:57:00 EST, Height, 66.3, kg, 09/11/19 13:26:00 EST,... Start Date: 11/28/19 Stop Date: 05/26/20 Status: Ordered atovaquone 750 mg/5 mL oral suspension 10 mL = 1,500 mg, By Mouth, Daily, for 60 days, # 600 mL, 5 Refills, Acute 11/22/20 9:44:00 EDT, 11/28/19 9:44:00 EDT, Suspension, [facility] [place], [place] -, Pls cancel bactrim prescription. Atovaquone to replace bactrim, 172, cm, 09/26/19 8... Start Date: 11/28/19 Stop Date: 11/22/20 Status: Ordered Biktarvy oral tablet 1 tablet, By Mouth, Daily, # 30 tablet, 5 Refills, Maintenance, 08/24/19 9:40:00 EST, Tablet, [place], [place] -, 1 tablet By Mouth Daily,x30 [...] 12/29/19 16:19:00 EDT, Route to Pharmacy Electronically, [place], [place] -, 171, cm, 12/29/19 15:28:00 EDT, Hei... Start Date: 12/29/19 Status: Ordered docusate sodium 100 mg oral capsule 100 mg, 1, capsule, By Mouth, 2 times a day, PRN, # 60 capsule, Refills 0, Tot. Refills 0, Maintenance, for constipation, 09/26/19 12:05:00 EST, Route to Pharmacy Electronically, [place], [place] -, 172, cm, 09/26/19 8:57:00 EST, Heig... Start Date: 09/26/19 Status: Ordered gabapentin 100 mg oral capsule 200 mg, 2, capsule, By Mouth, 3 times a day, # 180 capsule, Refills 3, Tot. Refills 3, Maintenance,11/28/19 9:44:00 EDT, Route to Pharmacy Electronically, [place], [place] -, 172, cm, 09/26/19 8:57:00 EST, Height, 66.3, kg, 09/11/19... Start Date: 11/28/19 Stop Date: 03/27/20 Status: Ordered hydrocortisone 0.5% topical cream See Instructions, apply in a thin film to the hands and rub in gently 3 times a day for 5 days, # 28 Gm, 0 Refills, Acute 12/20/20 12:12:00 EDT, 12/21/19 11:57:00 EDT, [place], [place] -, apply in a thin film to the hands and rub in g... Start Date: 12/21/19 Stop Date: 12/20/20 Status: Ordered ketoconazole 2% topical shampoo 1 application, Topically, Daily, try daily for 5 days as a shampoo, # 120 mL, 3 Refills, Soft Stop,12/21/19 11:58:00 EDT, Shampoo, [place], [place] -, 1 application Topically Daily,Instr:try daily for 5 days as a shampoo, 172, cm, 01... Start Date: 12/21/19 Status: Ordered lithium 300 mg oral capsule 2 capsule = 600 mg, By Mouth, Daily at bedtime, # 60 capsule, 3 Refills, Maintenance, 11/28/19 9:41:00 EDT, [place], [place] -, 172, cm, 09/26/19 8:57:00 EST, [...] tablet, 5 Refills, Maintenance, 11/28/19 9:41:00EDT, Tablet, [place], [place] -, 172, cm, 09/26/19 8:57:00 EST, Height, 66.3, kg, 09/11/19 13:26:00 EST, Dry Weight Start Date: 11/28/19 Stop Date: 05/26/20 Status: Ordered multivitamin with minerals Calcium and Magnesium oral tablet 1 tablet, By Mouth, Daily, # 30 tablet, 5 Refills, Maintenance, 09/26/19 12:05:00 EST, Tablet, [place], [place] -, 1 tablet By Mouth Daily,x30 days, 172, cm, 09/26/19 8:57:00 EST, Height, 66.3, kg, 09/11/19 13:26:00 EST, Dry Weight Start Date: 09/26/19 Stop Date: 03/24/20 Status: Ordered Narcan 4 mg/0.1 mL nasal spray See Instructions, 4 mg Once may repeat every 2 to 3 minutes until patient responds, # 2 each, 1 Refills, Soft Stop, 08/24/19 9:41:00 EST, [place], [place] -, MAMADOU García to chart picker for Pt., 170, cm, [...] Refills, Maintenance, 11/28/19 9:42:00 EDT, REC Powder, [place], [place] -, 17 Gm By Mouth 2 [...]
--- OUTSIDE RECORDS SUMMARY | 2023-07-12 20:11 | XMS_ITS | Continuity of Care Document ---
Author Name Unknown Organization [facility] Address [address] [place] [address]- Care Team Providers Care Stock Roller Name Role Phone Conner QUEEN, Namrata Agarwal Primary Care Physician [facility] Date(s): 04/18/20 - 05/18/20 [facility] [address] [place] [address]- [place] Allergies, Adverse Reactions, Alerts Substance Reaction Severity Status shellfish Active Latex rash Active Immunizations Given and Recorded Vaccine Date Status Refusal Reason influenza virus vaccine, inactivated 06/08/19 Give n Medications amLODIPine 5 mg oral tablet 5 mg, 1, tablet, By Mouth, Daily, # 30 tablet, Refills 5, Tot. Refills 5, Maintenance, 11/28/19 9:43:00 EDT, Route to Pharmacy Electronically, [facility] - [place], [place] -, kenan Romeo, 09/26/19 8:57:00 EST, Height, 66.3, kg, 09/11/19 13:26:00 EST,... Start Date: 11/28/19 Stop Date: 05/26/20 Status: Ordered atovaquone 750 mg/5 mL oral suspension 10 mL = 1,500 mg, By Mouth, Daily, for 60 days, # 600 mL, 5 Refills, Acute 11/22/20 9:44:00 EDT, 11/28/19 9:44:00 EDT, Suspension, [facility] - [place], [place] -, Pls cancel bactrim prescription. Atovaquone to replace bactrim, 172, cm, 09/26/19 8... Start Date: 11/28/19 Stop Date: 11/22/20 Status: Ordered Biktarvy oral tablet 1 tablet, By Mouth, Daily, for 30 days, # 30 tablet, 5 Refills, Hard Stop 08/25/20 12:37:00 EST, 02/27/20 12:37:00 EDT, Tablet, [place], [place] -, 1 tablet By Mouth Daily,x30 days, 171, cm, 02/22/20 10:16:00 EDT, Height, 59.5, kg, 04... Start Date: 02/27/20 Stop Date: 08/25/20 Status: Ordered Biktarvy oral tablet 1 tablet, By Mouth, Daily, # 30 tablet, 5 Refills, Maintenance, 08/18/20 5:43:00 EST, Tablet, [place], [place] -, 1 tablet By Mouth Daily,x30 [...] 12/29/19 16:19:00 EDT, Route to Pharmacy Electronically, [place], [place] -, 171, cm, 12/29/19 15:28:00 EDT, Hei... Start Date: 12/29/19 Status: Ordered gabapentin 100 mg oral capsule 200 mg, 2, capsule, By Mouth, 3 times a day, # 180 capsule, Refills 1, Tot. Refills 1, Maintenance,05/07/20 16:16:00 EDT, Route to Pharmacy Electronically, [place], [place] - [id number], 171, cm, 03/26/20 8:54:00 EDT, Height, 59.5, k... Start Date: 05/07/20 Stop Date: 09/04/20 Status: Ordered hydrocortisone 0.5% topical cream See Instructions, apply in a thin film to the hands and rub in gently 3 times a day for 5 days, # 28 Gm, 1 Refills, Maintenance, 02/27/20 12:35:00 EDT, [place], [place] -, apply in athin film to the hands and rub in gently 3 times a... Start Date: 02/27/20 Status: Ordered ketoconazole 2% topical shampoo 1 application, Topically, Daily, try daily for 5 days as a shampoo, # 120 mL, 3 Refills, Soft Stop,12/21/19 11:58:00 EDT, Shampoo, [place], [place] -, 1 application Topically Daily,Instr:try daily for 5 days as a shampoo, 172, cm, 01... Start Date: 12/21/19 Status: Ordered lithium 300 mg oral capsule 2 capsule = 600 mg, By Mouth, 2 times a day, # 120 capsule, 1 Refills, Maintenance, 05/07/20 16:16:00 EDT, [place], [place] - [id number], Increase in dose per Psychiatry, 171, cm, 03/26/20 8:54:00 EDT, Height, 59.5, kg, 12/29/19 15:28... Start Date: 05/07/20 Status: Ordered LORazepam 0.5 mg oral tablet 1 tablet = 0.5 mg, By Mouth, 2 times a day, PRN Anxiety, # 60 tablet, 1 Refills, Maintenance, 05/07/20 16:16:00 EDT, Tablet, [place], [place] - [id number], 171, cm, 03/26/20 8:54:00 EDT, Height, 59.5, [...] tablet, 5 Refills, Maintenance, 11/28/19 9:41:00EDT, Tablet, [place], [place] -, 172, cm, 09/26/19 8:57:00 EST, Height, 66.3, kg, 09/11/19 13:26:00 EST, Dry Weight Start Date: 11/28/19 Stop Date: 05/26/20 Status: Ordered multivitamin with minerals Calcium and Magnesium oral tablet 1 tablet, By Mouth, Daily, # 30 tablet, 5 Refills, Maintenance, 09/26/19 12:05:00 EST, Tablet, [place], [place] -, 1 tablet By Mouth Daily,x30 days, 172, cm, 09/26/19 8:57:00 EST, Height, 66.3, kg, 09/11/19 13:26:00 EST, Dry Weight Start Date: 09/26/19 Stop Date: 03/24/20 Status: Ordered Narcan 4 mg/0.1 mL nasal spray See Instructions, 4 mg Once may repeat every 2 to 3 minutes until patient responds, # 2 each, 1 Refills, Soft Stop, 08/24/19 9:41:00 EST, [place], [place] -, MAMADOU García to orange picker for Pt., 170, cm, 08/24/19 9:21:00 [...] Refills, Maintenance, 11/28/19 9:42:00 EDT, REC Powder, [place], [place] -, 17 Gm By Mouth 2 times a day,x30 days,PRN:Constipation,Instr:... Start Date: 11/28/19 Stop Date: 03/27/20 Status: Ordered SEROquel 25 mg oral tablet 25 mg, 1, tablet, By Mouth, Daily at bedtime, # 30 tablet, Refills 2, Tot. Refills 2, Maintenance, 03/26/20 9:29:00 EDT, Route to Pharmacy Electronically, [facility] - [place], [place] -, 171, cm, 03/26/20 8:54:00 EDT, [...]
--- OUTSIDE RECORDS SUMMARY | 2023-07-12 20:11 | XMS_ITS | Continuity of Care Document ---
Author Name Unknown Organization [facility] Address [address] [place] [address]- Care Team Providers Care Drapery Head Former Name Role Phone Conner QUEEN, Namrata Agarwal Primary Care Physician [facility]counter [facility] Date(s): 11/24/22 - 12/24/22 [facility] [address] [place] [id number]- Allergies, Adverse Reactions, Alerts Substance Reaction Severity [...] 8:46:00 EST, Powder, Route to Pharmacy Electronically, [id number], [facility] - [place]... Start Date: 07/20/22 Stop Date: 07/15/23 Status: Ordered amLODIPine 10 mg oral tablet 10 mg, 1, tablet, By Mouth, Daily, # 30 tablet, Refills 11, Tot. Refills 11, Maintenance, 07/20/22 8:43:00 EST, Route to Pharmacy Electronically, [facility] [id number], 173, cm, 05/10/22 20:46:00 EDT, Height, 95.5, kg, ... Start Date: 07/20/22 Status: Ordered aspirin 81 mg oral tablet, chewable 81 mg, 1, tablet, By Mouth, Daily, # 30 tablet, Refills 11, Tot. Refills 11, Maintenance, 07/20/22 8:43:00 EST, Route to Pharmacy Electronically, [facility] [id number], Partial fill upon patient request if the prescription is... Start Date: 07/20/22 Stop Date: 11/12/23 Status: Ordered atorvastatin 80 mg oral tablet 1 tablet = 80 mg, By Mouth, Daily, # 30 tablet, 11 Refills, Maintenance, 07/20/22 8:43:00 EST, Tablet, [facility] [id number], Partial fill upon patient request if the prescription is for a schedule II opioid drug., 173, cm, 09... Start Date: 07/20/22 Status: Ordered Biktarvy oral tablet 1 tablet, By Mouth, Daily, must get appt and labs for refills, # 30 tablet, 0 Refills, Maintenance,12/16/22 19:18:00 EDT, [facility] [id number], 30, 1 tablet By Mouth Daily,Instr:must get [...] 12/24/22 19:14:00 EDT, Route to Pharmacy Electronically, [facility]... Start Date: 12/24/22 Status: Ordered Crutches [...] 1 Refills, Soft Stop, 03/05/22 10:37:00 EDT, [facility] [place], [place] - [id number], Partial fill upon patient request if the prescriptio... Start Date: 03/05/22 Status: Ordered fluticasone-salmeterol 250 mcg-50 mcg inhalation powder 1, puffs, Inhalation, 2 times a day, patient needs labs and appt before more refills, # 60 each, Refills 0, Tot. Refills 0, Maintenance, 12/16/22 19:27:00 EDT, Powder, Route to Pharmacy Electronically, [id number], [facility]... Start Date: 12/16/22 Status: Ordered [...] Gm, 11 Refills, Maintenance, 04/20/22 9:23:00 EDT, [facility] [id number], 1 application Topically Daily, 173, cm, 12/05/21 17:38:00 EDT,Height, 127, kg, 12/05/21 17:38:00 EDT, Dry Weight Start Date: 04/20/22 Status: Ordered Lidoderm 5% film 1 patch, Topically, Daily, # 30 patch, 11 Refills, Maintenance, 03/19/22 21:12:00 EDT, [facility] [id number], Partial fill upon patient request if the [...] 11 Refills, Maintenance, 07/20/22 8:43:00 EST, Tablet, [place], [place] - [id number], 1 tablet By Mouth Daily, 173, cm, 05/10/22 20:46:00 EDT,Height, 95.5, kg, 05/10/22 20:46:00 EDT, Dry Weight Start Date: 07/20/22 Status: Ordered Narcan 4 mg/0.1 mL nasal spray See Instructions, 4 mg Once may repeat every 2 to 3 minutes until patient responds, # 2 each, 3 Refills, Soft Stop, 03/05/22 10:07:00 EDT, [facility] [id number], 173, cm, 12/05/21 17:38:00 EDT, Height, 127, [...] Refills, Soft Stop, 12/24/22 11:37:00 EDT, Lotion, [facility] [id number], Partial fill upon pa... Start Date: 12/24/22 Status: Ordered polyethylene glycol 3350 oral powder for reconstitution = 17 Gm, By Mouth, 2 times a day, PRN Constipation, dissolve in water before taking, # 527 Gm, 3 Refills, Maintenance, 12/02/21 16:55:00 EDT, REC Powder, [facility] [id number], 17 Gm By Mouth 2 times a day,x30 days,PRN:Constip... Start Date: 12/02/21 Stop Date: 04/01/22 Status: Ordered rOPINIRole 0.5 mg oral tablet 1 tablet = 0.5 mg, By Mouth, Daily at bedtime, 1 to 3 hours before bedtime, # 30 tablet, 11 Refills, Maintenance, 07/20/22 8:43:00 EST, Tablet, [facility] [id number], Partialfill upon patient request if the prescription is fo... Start Date: 07/20/22 Status: Ordered Senna 8.6 mg oral tablet 1 or 2 tablets, By Mouth, Daily at bedtime, PRN, Must make appt and get labs for refills, # 180 tablet, Refills 0, Tot. Refills 0, Maintenance, Constipation, 12/16/22 19:14:00 EDT, Route to Pharmacy Electronically, [place], [place] -... Start Date: 12/16/22 Status: Ordered sildenafil 100 mg oral tablet 1 tablet = 100 mg, By Mouth, Daily, 1 hour before sexual activity, # 20 tablet, 11 Refills, Maintenance, 04/20/22 9:24:00 EDT, Tablet, [facility] [id number], disreguard last script for 0.5 tab, 173, cm, 12/05/21 17:38:00 EDT,... Start Date: 04/20/22 Status: Ordered varenicline 1mg tablet 1 tablet = 1 mg, By Mouth, Daily, 0.5 tab daily x 3 days then 0.5 tab BID x 3 days then 1 tab BID, # 30 tablet, 4 Refills, Maintenance, 09/04/22 15:20:00 EST, Tablet, [facility] [id number], Partial fill upon patient request if... Start Date: 09/04/22 Status: Ordered Ventolin HFA 108 mcg/inh inhalation aerosol with adapter 2 puffs, Inhalation, 4 times a day, PRN for wheezing, must get appt and labs for refills, # 3 each,0 Refills, Maintenance, 12/16/22 19:15:00 EDT, Aerosol, [facility] [id number], Partial fill upon patient request if the prescr... Start Date: 12/16/22 Status: Ordered Vitamin D3 1000 intl units oral capsule 1 capsule = 25 mcg, By Mouth, Daily, # 30 capsule, 11 Refills, Maintenance, 06/04/22 17:32:00 EDT, Capsule, [facility] [id number], D/c vitamin high dosed, 173, cm, 05/10/22 [...] - 01/2019 Confirmed Active Depression - [facility] Confirmed Active Diastolic [...] Team Personnel Name: Jadiel Watson RN Position: [facility] ED RN W/OE and Tasks Member Role: Primary Care Nurse Name: Dede Mccloud RN Position: [facility] RN Member Role: Primary Care Nurse Name: Judy Gonzales RN Position: [facility] RN Member Role: Primary Care Nurse Name: Enma Manriquez RN Position: [facility] RN Member Role: Primary Care Nurse Name: Zuhair Lopez RN Position: [facility] RN Member Role: Primary Care Nurse Name: Cathryn Allen RN Position: [facility] RN Member Role: Primary Care Nurse Name: Edie Bob RN Position: [facility] RN Member Role: Primary Care Nurse Name: Lisbet Gardiner RN Position: [facility] RN Member Role: Primary Care Nurse Name: Namrata Prieto MD Position: [facility] Primary Care Physician Member Role: PCP Address: Address: [address] [place] [address], -[facility] [place] [address]- Name: Carolina Valero RN Position: [facility] RN Member Role: Primary Care Nurse Name: Nishi San RN Position: [facility] RN Member Role: Primary Care Nurse Name: Micky Boyd RN Position: [facility] RN Member Role: Primary Care Nurse Name: Lauri Combs NP Position: Reference Physician Member Role: Primary Care Nurse Address: Address: [address] [place] [address] [address] [facility] [place] [address]- [place] Care Team Related Persons Name: LUIS SAN Address: [place] [address] Name: BROOKE OWEN Address: home [address] [address] Name: KARYN OWEN Address: [address] [place] [address] Name: DOMINGO LEONE Address: home [address] [place] [address]
--- OUTSIDE RECORDS SUMMARY | 2023-07-12 20:11 | XMS_ITS | Continuity of Care Document ---
Author Name Unknown Organization [facility] Address [address] [place] [address]- Care Team Providers Care Contaminated Land Consultant Name Role Phone Conner QUEEN, Namrata Agarwal Primary Care Physician [facility] Date[facility]): 08/14[facility]21 - 09/13/21 [facility] [address] [place] [address]- Allergies, Adverse Reactions, Alerts Substance Reaction Severity [...] 13:14:00 EST, Powder, Route to Pharmacy Electronically, [id number], [facility] [place]... Start Date: 08/21/21 Stop Date: 01/18/22 Status: Ordered Albuterol (Eqv-ProAir HFA) 90 mcg/inh inhalation aerosol 2 puffs, Inhalation, Every 6 hours, # 8.5 Gm, 11 Refills, 08/25/21 12:34:00 EST, [facility] - [place], [place] - [id number], 25, 2 puffs Inhalation Every 6 hours, 173, cm, 08/25/21 12:31:00 EST, Height, 84, kg, 04/19/21 2:36:00 EDT, Dry Weight Start Date: 08/25/21 Status: Ordered amLODIPine 10 mg oral tablet 10 mg, 1, tablet, By Mouth, Daily, # 30 tablet, Refills 11, Tot. Refills 11, Maintenance, 08/27/21 16:46:00 EST, Route to Pharmacy Electronically, [place], [place] - [id number], 173,cm, 08/25/21 12:31:00 EST, Height, 84, kg, 04/19/21... Start Date: 08/27/21 Status: Ordered atovaquone 750 mg/5 mL oral suspension 10 mL = 1,500 mg, By Mouth, Daily, for 60 days, # 600 mL, 11 Refills, Acute 02/25/23 6:50:00 EDT, 03/07/21 6:50:00 EDT, Suspension, [place], [place] - [id number], Pls cancel bactrim prescription. Atovaquone to replace bactrim, 174, cm... Start Date: 03/07/21 Stop Date: 02/25/23 Status: Ordered Biktarvy oral tablet 1 tablet, By Mouth, Daily, # 30 tablet, 11 Refills, [facility], 30, TAKE ONE TABLET BY [...] FOR CONSTIPATION, # 60 each, 5 Refills, [facility], 173, cm, 04/21/21 8:17:00 EDT, Height, 84, kg, 04/19/21 2:36:00 EDT, Dry Weight Start Date: 06/02/21 Status: Ordered hydrocortisone 0.5% topical cream See Instructions, use sparingly on face, use on all other affected areas, # 28 Gm, 11 Refills, Maintenance, 03/07/21 6:50:00 EDT, [place], [place] - [id number], use sparingly on face, use on all other affected areas, 174, cm, 01/13/21... Start Date: 03/07/21 Status: Ordered Incruse Ellipta 62.5 mcg/inh inhalation powder 1 puffs, Inhalation, Every 24 hours, doses should be taken AT least 24 HOURS APART, # 30 Unknown, 11 Refills, 08/25/21 12:34:00 EST, [place], [place] - [id number], 173, cm, 08/25/21 12:31:00 EST, Height, 84, kg, 04/19/21 2:36:00 EDT,... Start Date: 08/25/21 Status: Ordered ketoconazole 2% topical cream See Instructions, APPLY TO THE AFFECTED AREA TOPICALLY 2 (two) times a day. USE ON THE FACE, # 60 Gm, 11 Refills, [facility], 30, APPLY TO THE AFFECTED [...] 11 Refills, Maintenance, 03/07/21 6:51:00 EDT, Tablet, [place], [place] - [id number], 1 tablet By Mouth Daily, 174, cm, 01/13/21 8:20:00 EDT, Height, 93, kg, 01/08/21 18:17:00 EDT, Dry Weight Start Date: 03/07/21 Status: Ordered Narcan 4 mg/0.1 mL nasal spray See Instructions, 4 mg Once may repeat every 2 to 3 minutes until patient responds, # 2 each, 1 Refills, Soft Stop, 08/24/19 9:41:00 EST, [facility], MAMADOU García to cigar packer and picker for Pt., 170, cm, 08/24/19 9:21:00 EST, Height, 66.36,... Start Date: 08/24/19 Status: Ordered ondansetron 4 mg oral tablet, disintegrating 1 tablet = 4 mg, By Mouth, Every 8 hours, PRN as needed for nausea/vomiting, # 12 tablet, 11 Refills, Maintenance, 08/21/21 13:33:00 EST, DIS Tablet, [facility] [id number], Partial fill upon patient request if the [...] Refills, Maintenance, 11/28/19 9:42:00 EDT, REC Powder, [facility], 17 Gm By Mouth 2 times a day,x30 days,PRN:Constipation,Instr:... Start Date: 11/28/19 Stop Date: 03/27/20 Status: Ordered polyethylene glycol 3350 oral powder for reconstitution See Instructions, DISSOLVE 17grams powder IN WATER BEFORE drinking 2 (two) times a day NEEDED FOR CONSTIPATION, # 510 Gm, 11 Refills, [facility], 30, DISSOLVE 17grams powder IN WATER BEFORE drinking 2 (two) times a day NEEDED FOR CONSTIPATI... Start Date: 09/03/21 Status: Ordered rOPINIRole 0.5 mg oral tablet 1 tablet = 0.5 mg, By Mouth, Daily at bedtime, 1 to 3 hours before bedtime, # 30 tablet, 11 Refills, Maintenance, 08/21/21 13:32:00 EST, Tablet, [facility] [id number], Partial fill upon patient request if the prescription is f... Start Date: 08/21/21 Status: Ordered sildenafil 100 mg oral tablet 1 tablet = 100 mg, By Mouth, Daily, 1 hour before sexual activity, # 20 tablet, 11 Refills, Maintenance, 03/07/21 6:49:00 EDT, Tablet, [place], [place] - [id number], Partial fill upon patient request if the prescription is for a sched... 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
--- OUTSIDE RECORDS SUMMARY | 2023-07-12 20:11 | XMS_ITS | Continuity of Care Document ---
Author Name Unknown Organization [facility] Address [address] [place] [address]- Care Team Providers Care Visual Journalist Name Role Phone Calvin WELLS, Giovanna Bernard Primary Care Physician [facility] - 09/17/19 [facility] [address] [place] [address]- [facility] Attending Physician: Angeles De La Rosa Admitting Physician: Angeles De La Rosa Referring Physician: AdmtrAngeles Allergies, Adverse Reactions, Alerts Substance Reaction Severity Status shellfish Active Latex rash Active Immunizations Given and Recorded Vaccine Date Status Refusal Reason influenza virus vaccine, inactivated 06/08/19 Give n Medications amLODIPine 5 mg oral tablet 5 mg, 1, tablet, By Mouth, Daily, # 30 tablet, Refills 0, Maintenance, 09/11/19 14:15:00 EST Start Date: 09/11/19 Status: Ordered amLODIPine 5 mg oral tablet 5 mg, 1, tablet, By Mouth, Daily, # 30 tablet, Refills 5, Tot. Refills 5, Maintenance, 08/24/19 9:40:00 EST, Route to Pharmacy Electronically, [facility] [place], [place] -, 170, cm, 08/24/19 9:21:00 EST, Height, 66.36, kg, 03/10/19 16:51:00 EDT... Start Date: 08/24/19 Stop Date: 02/20/20 Status: Ordered atovaquone 750 mg/5 mL oral suspension 10 mL = 1,500 mg, By Mouth, Daily, # 210 mL, 0 Refills, Maintenance, 09/11/19 14:07:00 EST, Suspension Start Date: 09/11/19 Status: Ordered atovaquone 750 mg/5 mL oral suspension 10 mL = 1,500 mg, By Mouth, Daily, for 60 days, # 600 mL, 5 Refills, Acute 08/18/20 9:40:00 EST, 08/24/19 9:40:00 EST, Suspension, [place], [place] -, Pls cancel bactrim prescription. Atovaquone to replace bactrim, 170, cm, 08/24/19 9... Start Date: 08/24/19 Stop Date: 08/18/20 Status: Ordered Biktarvy oral tablet 1 tablet, By Mouth, Daily, # 30 tablet, 0 Refills, Maintenance, 09/11/19 14:09:00 EST, Tablet Start Date: 09/11/19 Status: Ordered Biktarvy oral tablet 1 tablet, By Mouth, Daily, # 30 tablet, 5 Refills, Maintenance, 08/24/19 9:40:00 EST, Tablet, [place], [place] -, 1 tablet By Mouth Daily,x30 [...] 06/08/19 18:24:18 EDT, Route to Pharmacy Electronically, [id number], [place], [place] - Start Date: 06/08/19 Status: Ordered docusate sodium 100 mg oral capsule 100 mg, 1, capsule, By Mouth, 2 times a day, PRN, # 20 capsule, Refills 0, Maintenance, for constipation, 09/11/19 14:10:00 EST Start Date: 09/11/19 Status: Ordered Fluconazole 200 mg, By Mouth, Daily, Maintenance, 09/11/19 14:11:00 EST Start Date: 09/11/19 Status: Ordered fluconazole 200 mg oral tablet 1 tablet = 200 mg, By Mouth, Daily, for 28 days, # 28 tablet, 5 Refills, Acute 02/08/20 9:42:00 EDT, 08/24/19 9:42:00 EST, Tablet, [facility] [place] -, Decrease in dose., 170, cm, 08/24/19 [...] Date: 07/19/19 Stop Date: 01/15/20 Status: Ordered mirtazapine 30 mg oral tablet 1 tablet = 30 mg, By Mouth, Daily at bedtime, # 30 tablet, 0 Refills, Maintenance, 09/11/19 14:13:00 EST, Tablet Start Date: 09/11/19 Status: Ordered Multivitamin 1 tab, By Mouth, Daily, 0 Refills, Maintenance, 09/11/19 14:09:00 EST Start Date: 09/11/19 Status: Ordered multivitamin with minerals Calcium and [...] 1 Refills, Soft Stop, 08/24/19 9:41:00 EST, [facility] [place] -, MAMADOU García to picker tender for Pt., 170, cm, 08/24/19 9:21:00 EST, Height, 66.36,... Start Date: 08/24/19 Status: Ordered pantoprazole 40 mg oral delayed release tablet 1 tablet = 40 mg, By Mouth, Daily, # 30 tablet, 0 Refills, Maintenance, 09/11/19 14:12:00 EST, EC Tablet Start Date: 09/11/19 Status: Ordered pantoprazole 40 mg oral delayed [...]
--- OUTSIDE RECORDS SUMMARY | 2023-07-12 20:11 | XMS_ITS | Continuity of Care Document ---
Author Name Unknown Organization [facility] Address [address] [place] [id number]- Care Team Providers Care Hydraulic Dredge Operator Name Role Phone Conner QUEEN, Namrata Agarwal Primary Care Physician [facility] Date(s): 01/23/22 - 02/22/22 [facility] [address] [place] [id number]- Allergies, Adverse Reactions, Alerts Substance Reaction Severity [...] 8:29:00 EDT, Powder, Route to Pharmacy Electronically, [id number], [facility] - [facility]... Start Date: 01/07/22 Stop Date: 01/02/23 Status: Ordered Albuterol (Eqv-ProAir HFA) 90 mcg/inh inhalation aerosol 2 puffs, Inhalation, Every 6 hours, # 8.5 Gm, 11 Refills, 08/25/21 12:34:00 EST, [facility] [id number], 25, 2 puffs Inhalation Every 6 hours, 173, cm, 08/25/21 12:31:00 EST, Height, 84, kg, 04/19/21 2:36:00 EDT, Dry Weight Start Date: 08/25/21 Status: Ordered amLODIPine 10 mg oral tablet 10 mg, 1, tablet, By Mouth, Daily, # 30 tablet, Refills 11, Tot. Refills 11, Maintenance, 08/27/21 16:46:00 EST, Route to Pharmacy Electronically, [facility] [id number], 173,cm, 08/25/21 12:31:00 EST, Height, 84, kg, 04/19/21... Start Date: 08/27/21 Status: Ordered aspirin 81 mg oral tablet, chewable 81 mg, 1, tablet, By Mouth, Daily, # 120 tablet, Refills 3, Tot. Refills 3, Maintenance, 10/02/21 11:47:00 EST, Route to Pharmacy Electronically, [facility] [id number], Partial fill upon patient request if the prescription is... Start Date: 10/02/21 Stop Date: 01/25/23 Status: Ordered atorvastatin 80 mg oral tablet 1 tablet = 80 mg, By Mouth, Daily, # 30 tablet, 11 Refills, Maintenance, 11/07/21 14:34:00 EST, Tablet, [facility] [id number], Partial fill upon patient request if the prescription is for a schedule II opioid drug., 170, cm, 0... Start Date: 11/07/21 Status: Ordered atovaquone 750 mg/5 mL oral suspension 10 mL = 1,500 mg, By Mouth, Daily, for 60 days, # 600 mL, 11 Refills, Acute 10/28/23 14:35:00 EST, 11/07/21 14:35:00 EST, Suspension, [facility] [id number], Pls cancel bactrim prescription. Atovaquone to replace bactrim, 170,... Start Date: 11/07/21 Stop Date: 10/28/23 Status: Ordered Biktarvy oral tablet 1 tablet, By Mouth, Daily, # 30 tablet, 11 Refills, [facility], 30, TAKE ONE TABLET BY [...] 12/02/21 16:54:00 EDT, Route to Pharmacy Electronically, [facility] - [place], [place] - [id number], Partial fill upon pilar... Start Date: 12/02/21 [...] FOR CONSTIPATION, # 60 each, 2 Refills, [facility], 170, cm, 10/10/21 13:45:00 EST, Height, 110, kg, 09/29/21 21:14:00 EST, Dry Weight Start Date: 12/01/21 Status: Ordered hydrocortisone 0.5% topical cream See Instructions, use sparingly on face, use on all other affected areas, # 28 Gm, 11 Refills, Maintenance, 03/07/21 6:50:00 EDT, [facility] [id number], use sparingly on face, use on all other affected areas, 174, cm, 01/13/21... Start Date: 03/07/21 Status: Ordered Incruse Ellipta 62.5 mcg/inh inhalation powder 1 puffs, Inhalation, Every 24 hours, doses should be taken AT least 24 HOURS APART, # 30 Unknown, 11 Refills, 08/25/21 12:34:00 EST, [facility] [id number], 173, cm, 08/25/21 12:31:00 EST, Height, 84, kg, 04/19/21 2:36:00 EDT,... Start Date: 08/25/21 Status: Ordered ketoconazole 2% topical cream 1 application, Topically, Daily, # 30 Gm, 11 Refills, Maintenance, 12/02/21 16:56:00 EDT, [facility] [id number], 1 application Topically Daily, 170, cm, 10/10/21 [...] Refills, Maintenance, 11/11/21 17:22:00 EST, Tablet, [facility] [id number], 170, cm, 10/10/21 13:45... Start Date: 11/11/21 Stop Date: 12/11/21 Status: Ordered multivitamin with minerals Calcium and Magnesium oral tablet 1 tablet, By Mouth, Daily, # 30 tablet, 11 Refills, Maintenance, 12/15/21 6:32:00 EDT, Tablet, [facility] [id number], 1 tablet By Mouth Daily, 173, cm, 12/05/21 17:38:00 EDT,Height, 127, kg, 12/05/21 17:38:00 EDT, Dry Weight Start Date: 12/15/21 Status: Ordered Narcan 4 mg/0.1 mL nasal spray See Instructions, 4 mg Once may repeat every 2 to 3 minutes until patient responds, # 2 each, 1 Refills, Soft Stop, 08/24/19 9:41:00 EST, [place], [place] -, MAMADOU García to draft roller picker for Pt., 170, cm, 08/24/19 9:21:00 EST, Height, 66.36,... Start Date: 08/24/19 Status: Ordered Nicotine 2 mg gum 1 each = 2 mg, Chew, Every 2 hours, PRN as needed for smoking cessation, for 4 week(s), # 160 each,11 Refills, Acute 09/11/22 12:53:00 EST, 10/10/21 12:53:00 EST, Gum, [facility] [id number], Partial fill upon patient request... Start Date: [...] Maintenance, 08/21/21 13:33:00 EST, DIS Tablet, [facility] [id number], Partial fill upon patient request if the [...] 11:47:00 EST, Route to Pharmacy Electronically, [facility] [id number], Partial fill upon patient request if the prescription is f... Start Date: 10/02/21 Stop Date: 12/31/21 Status: Ordered polyethylene glycol 3350 oral powder for reconstitution See Instructions, DISSOLVE 17grams powder IN WATER BEFORE drinking 2 (two) times a day NEEDED FOR CONSTIPATION, # 510 Gm, 11 Refills, [facility], 30, DISSOLVE 17grams powder IN WATER BEFORE drinking 2 (two) times a day NEEDED FOR CONSTIPATI... Start Date: 09/03/21 Status: Ordered polyethylene glycol 3350 oral powder for reconstitution = 17 Gm, By Mouth, 2 times a day, PRN Constipation, dissolve in water before taking, # 527 Gm, 3 Refills, Maintenance, 12/02/21 16:55:00 EDT, REC Powder, [facility], [place] - [id number], 17 Gm By Mouth 2 times a day,x30 days,PRN:Constip... Start Date: 12/02/21 Stop Date: 04/01/22 Status: Ordered rOPINIRole 0.5 mg oral tablet 1 tablet = 0.5 mg, By Mouth, Daily at bedtime, 1 to 3 hours before bedtime, # 30 tablet, 11 Refills, Maintenance, 08/21/21 13:32:00 EST, Tablet, [facility] [id number], Partial fill upon patient request if the prescription is f... Start Date: 08/21/21 Status: Ordered Senna 8.6 mg oral tablet 1 or 2 tablets, By Mouth, Daily at bedtime, PRN, # 60 tablet, Refills 5, Tot. Refills 5, Maintenance, Constipation, 10/10/21 14:43:00 EST, Route to Pharmacy Electronically, [facility] [id number] Tablet, Partial fill upon patie... Start Date: 10/10/21 Status: Ordered sildenafil 100 mg oral tablet 1 tablet = 100 mg, By Mouth, Daily, 1 hour before sexual activity, # 20 tablet, 11 Refills, Maintenance, 03/07/21 6:49:00 EDT, Tablet, [facility] [id number], Partial fill upon patient request if the prescription is for a sched... Start Date: 03/07/21 Status: Ordered varenicline 1mg tablet 1 tablet = 1 mg, By Mouth, Daily, 0.5 tab daily x 3 days then 0.5 tab BID x 3 days then 1 tab BID, # 30 tablet, 4 Refills, Maintenance, 11/13/21 15:15:00 EST, Tablet, [facility] [id number], Partial fill upon patient request if... 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
--- OUTSIDE RECORDS SUMMARY | 2023-07-12 20:12 | XMS_ITS | Continuity of Care Document ---
Author Name Unknown Organization [facility] y Address [address] [place] [address]- Care Team Providers Care Word Processor Operator Name Role Phone Conner QUEEN, Namrata Agarwal Primary Care Physician Encounter [facility] Date(s): 01/03/21 - 03/08/21 [facility] [address], [place] [address] Attending Physician: Isidoro Neely MD [...] 03/07/21 6:50:00 EDT, Route to Pharmacy Electronically, [place], [place] - [id number], 174, cm, 01/13/21 8:20:00 EDT, Height, 93, kg, 01/08/21 18:... Start Date: 03/07/21 Status: Ordered atovaquone 750 mg/5 mL oral suspension 10 mL = 1,500 mg, By Mouth, Daily, for 60 days, # 600 mL, 11 Refills, Acute 02/25/23 6:50:00 EDT, 03/07/21 6:50:00 EDT, Suspension, [facility] [id number], Pls cancel bactrim prescription. Atovaquone to replace bactrim, 174, cm... Start Date: 03/07/21 Stop Date: 02/25/23 Status: Ordered Biktarvy oral tablet 1 tablet, By Mouth, Daily, for 30 days, # 30 tablet, 11 Refills, Hard Stop 05/23/21 16:35:00 EDT, 05/28/20 16:35:00 EDT, Tablet, [facility] [place], [facility] [id number], 1 tablet By Mouth Daily,x30 days, 171, cm, 05/28/20 16:01:00 EDT, Height,... Start Date: 05/28/20 Stop Date: 05/23/21 Status: Ordered Colace sodium 100 mg oral capsule 100 mg, 1, capsule, By Mouth, 2 times a day, PRN, # 60 capsule, Refills 11, Tot. Refills 11, Maintenance, for constipation, 05/28/20 16:34:00 EDT, Route to Pharmacy Electronically, [facility] [id number], 171, cm, 05/28/20 16:0... Start Date: 05/28/20 Status: Ordered hydrocortisone 0.5% topical cream See Instructions, use sparingly on face, use on all other affected areas, # 28 Gm, 11 Refills, Maintenance, 03/07/21 6:50:00 EDT, [facility] [id number], use sparingly on face, use on all other affected areas, 174, cm, 01/13/21... Start Date: 03/07/21 Status: Ordered ketoconazole 2% topical shampoo 1 application, Topically, Daily, try daily for 5 days as a shampoo, # 120 mL, 11 Refills, Soft Stop, 03/07/21 6:51:00 EDT, Shampoo, [facility] [id number], 1 application Topically Daily,Instr:try daily for 5 [...] 0 Refills, Maintenance, 07/08/20 15:34:00 EST, Tablet, [facility], 3 tablet By Mouth [...] 11 Refills, Maintenance, 03/07/21 6:51:00 EDT, Tablet, [place], [place] - [id number], 1 tablet By Mouth Daily, 174, cm, 01/13/21 8:20:00 EDT, Height, 93, kg, 01/08/21 18:17:00 EDT, Dry Weight Start Date: 03/07/21 Status: Ordered Narcan 4 mg/0.1 mL nasal spray See Instructions, 4 mg Once may repeat every 2 to 3 minutes until patient responds, # 2 each, 1 Refills, Soft Stop, 08/24/19 9:41:00 EST, [place], [place] -, MAMADOU García to fruit picker for Pt., 170, cm, 08/24/19 9:21:00 EST, Height, 66.36,... Start Date: 08/24/19 Status: Ordered ondansetron 4 mg oral tablet, disintegrating 1 tablet = 4 mg, By Mouth, Every 8 hours, PRN as needed for nausea/vomiting, # 12 tablet, 0 Refills, Maintenance, 12/08/20 19:19:00 EDT, DIS Tablet, [place], [place] - [id number], Partial fill upon patient request if the [...] Refills, Maintenance, 11/28/19 9:42:00 EDT, REC Powder, [place], [place] -, 17 Gm By Mouth 2 [...] Maintenance, 03/07/21 6:49:00 EDT, Tablet, [facility] [id number], Partial fill upon patient request if the prescription is for a sched... 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
--- OUTSIDE RECORDS SUMMARY | 2023-07-12 20:12 | XMS_ITS | Continuity of Care Document ---
Author Name Unknown Organization [facility] Address [address] [place] [address]- Care Team Providers Care Medicaid Collection Specialist Name Role Phone Conner QUEEN, Namrata Agarwal Primary Care Physician [phone] [facility]counter [facility] Date(s): 10/28/20 - 11/27/20 [facility] [address], [place] [address] Allergies, Adverse Reactions, Alerts Substance [...] 10/28/20 9:30:00 EST, Route to Pharmacy Electronically, [facility] [id number], 173, cm, 07/17/20 19:29:00 EST, Height, 83.9, kg, 07/17/20... Start Date: 10/28/20 Status: Ordered atovaquone 750 mg/5 mL oral suspension 10 mL = 1,500 mg, By Mouth, Daily, for 60 days, # 600 mL, 11 Refills, Acute 05/18/22 16:35:00 EDT, 05/28/20 16:35:00 EDT, Suspension, [place], [place] - [id number], Pls cancel bactrim prescription. Atovaquone to replace bactrim, 171,... Start Date: 05/28/20 Stop Date: 05/18/22 Status: Ordered azithromycin 500 mg oral tablet 2 tablet = 1,000 mg, By Mouth, Once, take both tablets at once, # 2 tablet, 0 Refills, Soft Stop, 06/27/20 17:56:00 EDT, Tablet, [facility] [id number], 171, cm, 05/28/20 16:01:00 EDT, Height, 59.5, kg, 12/29/19 15:28:00 EDT, D... Start Date: 06/27/20 Status: Ordered Biktarvy oral tablet 1 tablet, By Mouth, Daily, for 30 days, # 30 tablet, 11 Refills, Hard Stop 05/23/21 16:35:00 EDT, 05/28/20 16:35:00 EDT, Tablet, [facility] [id number], 1 tablet By Mouth Daily,x30 days, 171, cm, 05/28/20 16:01:00 EDT, Height,... Start Date: 05/28/20 Stop Date: 05/23/21 Status: Ordered Colace sodium 100 mg oral capsule 100 mg, 1, capsule, By Mouth, 2 times a day, PRN, # 60 capsule, Refills 11, Tot. Refills 11, Maintenance, for constipation, 05/28/20 16:34:00 EDT, Route to Pharmacy Electronically, [facility] [id number], 171, cm, 05/28/20 16:0... Start Date: 05/28/20 [...] Gm, 11 Refills, Maintenance, 05/28/20 16:37:00 EDT, [facility] [id number], use sparingly on face, use on all other affected areas, 171, cm, ... Start Date: 05/28/20 Status: Ordered influenza virus vaccine, inactivated adjuvanted preservative-free quadrivalent intramuscular susp See Instructions, none, # 1 each, 0 Refills, Maintenance, 05/30/20 9:27:00 EDT, [facility], none, 171, cm, 05/28/20 16:01:00 EDT, Height, 59.5, kg, 12/29/19 15:28:00 EDT, Dry Weight Start Date: 05/30/20 Status: Ordered ketoconazole 2% topical cream 1 application, Topically, 2 times a day, for 28 days, use on the face, # 60 Gm, 11 Refills, Acute 04/29/21 16:40:00 EDT, 05/28/20 16:40:00 EDT, Cream, [facility] [id number], 1 application Topically 2 times a day,x28 days,Instr... Start Date: 05/28/20 Stop Date: 04/29/21 Status: Ordered ketoconazole 2% topical shampoo 1 application, Topically, Daily, try daily for 5 days as a shampoo, # 120 mL, 11 Refills, Soft Stop, 05/28/20 16:37:00 EDT, Shampoo, [facility] [id number], 1 application Topically Daily,Instr:try daily for 5 days as a shampoo,... Start Date: 05/28/20 Status: Ordered lithium 300 mg oral capsule 2 capsule = 600 mg, By Mouth, 2 times a day, # 120 capsule, 2 Refills, Maintenance, 06/28/20 12:56:00 EDT, [facility], [facility] [id number], Increase in dose per Psychiatry, 171, cm, 05/28/20 16:01:00 EDT, Height, 59.5, kg, 12/29/19 15:2... Start Date: 06/28/20 Status: Ordered LORazepam 0.5 mg oral tablet 1 tablet = 0.5 mg, By Mouth, 2 times a day, PRN Anxiety, # 60 tablet, 2 Refills, Maintenance, 06/28/20 12:56:00 EDT, Tablet, [facility], [facility] [id number], 171, cm, 05/28/20 16:01:00EDT, Height, 59.5, kg, 12/29/19 15:28:00 EDT, Dry W... Start Date: 06/28/20 Status: Ordered Mavyret 100 mg-40 mg oral tablet 3 tablet, By Mouth, Daily, with food, # 252 tablet, 0 Refills, Maintenance, 07/08/20 15:34:00 EST, Tablet, [facility], 3 tablet By Mouth Daily,x12 [...] 5 Refills, Maintenance, 05/28/20 16:35:00 EDT, Tablet, [facility], [facility] [id number], 171, cm, 05/28/20 16:01:00 EDT, Height, 59.5, kg, 12/29/19 15:28:00 EDT, Dry Weight Start Date: 05/28/20 Stop Date: 11/24/20 Status: Ordered multivitamin with minerals Calcium and Magnesium oral tablet 1 tablet, By Mouth, Daily, # 30 tablet, 11 Refills, Maintenance, 05/28/20 16:35:00 EDT, Tablet, [facility] [id number], 1 tablet By Mouth Daily, 171, cm, 05/28/20 16:01:00 EDT, Height, 59.5, kg, 12/29/19 15:28:00 EDT, Dry Weight Start Date: 05/28/20 Stop Date: 05/23/21 Status: Ordered Narcan 4 mg/0.1 mL nasal spray See Instructions, 4 mg Once may repeat every 2 to 3 minutes until patient responds, # 2 each, 1 Refills, Soft Stop, 08/24/19 9:41:00 EST, [place], [place] -, MAMADOU García to steel pickler for Pt., 170, cm, 08/24/19 9:21:00 EST, Height, 66.36,... Start Date: 08/24/19 Status: Ordered Nicotine 2 mg gum 1 each = 2 mg, Chew, Every 2 hours, PRN as needed for smoking cessation, # 160 each, 3 Refills, Maintenance, 05/28/20 16:51:00 EDT, Gum, [place], [place] - [id number], 171, cm, 05/28/20 16:01:00 EDT, Height, 59.5, [...] Refills, Soft Stop, 05/30/20 9:25:00 EDT, Suspension, [facility], 0.5 mL Intramuscular Once, 171, cm, 05/28/20 16:01:00 EDT, Height, 59.5, kg,12/29/19 15:28:00 EDT, Dry Weight Start Date: 05/30/20 Status: Ordered polyethylene glycol 3350 oral powder for reconstitution = 17 Gm, By Mouth, 2 times a day, PRN Constipation, dissolve in water before taking, # 527 Gm, 3 Refills, Maintenance, 11/28/19 9:42:00 EDT, REC Powder, [place], [place] -, 17 Gm By Mouth 2 times a day,x30 days,PRN:Constipation,Instr:... Start Date: 11/28/19 Stop Date: 03/27/20 Status: Ordered SEROquel 25 mg oral tablet 25 mg, 1, tablet, By Mouth, Daily at bedtime, # 30 tablet, Refills 2, Tot. Refills 2, Maintenance, 06/14/20 20:44:00 EDT, Route to Pharmacy Electronically, [facility], 171, cm, 05/28/20 16:01:00 EDT, Height, 59.5, kg, 12/29/19 15:28:00... Start Date: 06/14/20 Stop Date: 09/12/20 Status: Ordered sildenafil 100 mg oral tablet 1 tablet = 100 mg, By Mouth, Daily, 1 hour before sexual activity, # 10 tablet, 5 Refills, Maintenance, 09/04/20 14:26:00 EST, Tablet, [place], [place] - [id number], Partial fill upon patient request if the prescription is for a sched... 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 Sex
--- OUTSIDE RECORDS SUMMARY | 2023-07-12 20:12 | XMS_ITS | Continuity of Care Document ---
Author Name Unknown Organization [facility] Address [address] [place] [address]- Care Team Providers Care Flattening Press Operator Name Role Phone Conner QUEEN, Namrata Agarwal Primary Care Physician Encounter [facility] Date(s): 08/22/21 - 09/21/21 [facility] [address] [place] [address]- Allergies, Adverse Reactions, Alerts Substance Reaction Severity [...] 13:14:00 EST, Powder, Route to Pharmacy Electronically, [id number], [facility]... Start Date: 08/21/21 Stop Date: 01/18/22 Status: Ordered Albuterol (Eqv-ProAir HFA) 90 mcg/inh inhalation aerosol 2 puffs, Inhalation, Every 6 hours, # 8.5 Gm, 11 Refills, 08/25/21 12:34:00 EST, [facility] - [place], [place] - [id number], 25, 2 puffs Inhalation Every 6 hours, 173, cm, 08/25/21 12:31:00 EST, Height, 84, kg, 04/19/21 2:36:00 EDT, Dry Weight Start Date: 08/25/21 Status: Ordered amLODIPine 10 mg oral tablet 10 mg, 1, tablet, By Mouth, Daily, # 30 tablet, Refills 11, Tot. Refills 11, Maintenance, 08/27/21 16:46:00 EST, Route to Pharmacy Electronically, [place], [place] - [id number], 173,cm, 08/25/21 12:31:00 EST, Height, 84, kg, 04/19/21... Start Date: 08/27/21 Status: Ordered atovaquone 750 mg/5 mL oral suspension 10 mL = 1,500 mg, By Mouth, Daily, for 60 days, # 600 mL, 11 Refills, Acute 02/25/23 6:50:00 EDT, 03/07/21 6:50:00 EDT, Suspension, [place], [place] - [phone], Pls cancel bactrim prescription. Atovaquone to replace bactrim, 174, cm... Start Date: 03/07/21 Stop Date: 02/25/23 Status: Ordered Biktarvy oral tablet 1 tablet, By Mouth, Daily, # 30 tablet, 11 Refills, [facility], 30, TAKE ONE TABLET BY [...] FOR CONSTIPATION, # 60 each, 5 Refills, [facility], 173, cm, 04/21/21 8:17:00 EDT, Height, 84, kg, 04/19/21 2:36:00 EDT, Dry Weight Start Date: 06/02/21 Status: Ordered hydrocortisone 0.5% topical cream See Instructions, use sparingly on face, use on all other affected areas, # 28 Gm, 11 Refills, Maintenance, 03/07/21 6:50:00 EDT, [place], [place] - [id number], use sparingly on face, use on all other affected areas, 174, cm, 01/13/21... Start Date: 03/07/21 Status: Ordered Incruse Ellipta 62.5 mcg/inh inhalation powder 1 puffs, Inhalation, Every 24 hours, doses should be taken AT least 24 HOURS APART, # 30 Unknown, 11 Refills, 08/25/21 12:34:00 EST, [place], [place] - [id number], 173, cm, 08/25/21 12:31:00 EST, Height, 84, kg, 04/19/21 2:36:00 EDT,... Start Date: 08/25/21 Status: Ordered ketoconazole 2% topical cream See Instructions, APPLY TO THE AFFECTED AREA TOPICALLY 2 (two) times a day. USE ON THE FACE, # 60 Gm, 11 Refills, [facility], 30, APPLY TO THE AFFECTED [...] 11 Refills, Maintenance, 03/07/21 6:51:00 EDT, Tablet, [place], [place] - [id number], 1 tablet By Mouth Daily, 174, cm, 01/13/21 8:20:00 EDT, Height, 93, kg, 01/08/21 18:17:00 EDT, Dry Weight Start Date: 03/07/21 Status: Ordered Narcan 4 mg/0.1 mL nasal spray See Instructions, 4 mg Once may repeat every 2 to 3 minutes until patient responds, # 2 each, 1 Refills, Soft Stop, 08/24/19 9:41:00 EST, [facility], MAMADOU García to bean picker for Pt., 170, cm, 08/24/19 9:21:00 EST, Height, 66.36,... Start Date: 08/24/19 Status: Ordered ondansetron 4 mg oral tablet, disintegrating 1 tablet = 4 mg, By Mouth, Every 8 hours, PRN as needed for nausea/vomiting, # 12 tablet, 11 Refills, Maintenance, 08/21/21 13:33:00 EST, DIS Tablet, [facility] [id number], Partial fill upon patient request if the [...] Refills, Maintenance, 11/28/19 9:42:00 EDT, REC Powder, [facility], 17 Gm By Mouth 2 times a day,x30 days,PRN:Constipation,Instr:... Start Date: 11/28/19 Stop Date: 03/27/20 Status: Ordered polyethylene glycol 3350 oral powder for reconstitution See Instructions, DISSOLVE 17grams powder IN WATER BEFORE drinking 2 (two) times a day NEEDED FOR CONSTIPATION, # 510 Gm, 11 Refills, [facility], 30, DISSOLVE 17grams powder IN WATER BEFORE drinking 2 (two) times a day NEEDED FOR CONSTIPATI... Start Date: 09/03/21 Status: Ordered rOPINIRole 0.5 mg oral tablet 1 tablet = 0.5 mg, By Mouth, Daily at bedtime, 1 to 3 hours before bedtime, # 30 tablet, 11 Refills, Maintenance, 08/21/21 13:32:00 EST, Tablet, [place], [place] - [id number], Partial fill upon patient request if the prescription is f... Start Date: 08/21/21 Status: Ordered sildenafil 100 mg oral tablet 1 tablet = 100 mg, By Mouth, Daily, 1 hour before sexual activity, # 20 tablet, 11 Refills, Maintenance, 03/07/21 6:49:00 EDT, Tablet, [place], [place] - [id number], Partial fill upon patient request if the prescription is for a sched... 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, intermittent(Confirmed) Active Hemorrhoid(Confirmed) Active HIV disease - 01/2019(Confirmed) Active Erectile dysfunction(Confirmed) Active Pulmonary nodule(Confirmed) Active Obesity(Confirmed) Active Oliguria(Confirmed) Active Opiate dependence(Confirmed) Active Emphysema/COPD(Confirmed) Active Severe obesity(Confirmed) Active Tobacco use(Confirmed) Active Vital Signs Most recent to oldest [Reference Range]: 1 Height 173 cm (08/25/21 12:30 PM) Weight 123 kg (08/25/21 12:30 PM) Body Mass Index [18.5-24.99] 41.1 *>HHI* (08/25/21 12:30 PM) Social History Social History Type Response Tobacco Use: 4 or less cigar ettes(less than 1/4 pack)/day in last 30 days. Sex Male
--- OUTSIDE RECORDS SUMMARY | 2023-07-12 20:12 | XMS_ITS | Continuity of Care Document ---
Author Name Unknown Organization [facility] y Address [address] [place] [address]- Care Team Providers Care Applications Developer Name Role Phone Long PRICE CHECKER, Giovanna Bernard Primary Care Physician [place] [facility] [place] 10[place] [facility] [address] [place] [address]- Attending Physician: Angeles De La Rosa Admitting Physician: Admtr, ArRenea Referring Physician: Admtr, Ar8 Allergies, Adverse Reactions, Alerts Substance Reaction Severity Status shellfish Active Latex rash Active Immunizations Given and Recorded Vaccine Date Status Refusal Reason influenza virus vaccine, inactivated 06/08/19 Give n Medications amLODIPine 5 mg oral tablet 5 mg, 1, tablet, By Mouth, Daily, # 30 tablet, Refills 0, Tot. Refills 0, Maintenance, 09/26/19 12:05:00 EST, Route to Pharmacy Electronically, [place], [place] -, 172, cm, 09/26/19 8:57:00 EST, Height, 66.3, kg, 09/11/19 13:26:00 EST... Start Date: 09/26/19 Status: Ordered atovaquone 750 mg/5 mL oral suspension 10 mL = 1,500 mg, By Mouth, Daily, for 60 days, # 600 mL, 5 Refills, Acute 08/18/20 9:40:00 EST, 08/24/19 9:40:00 EST, Suspension, [place], [place] -, Pls cancel bactrim prescription. Atovaquone to replace bactrim, 170, cm, 08/24/19 9... Start Date: 08/24/19 Stop Date: 08/18/20 Status: Ordered Biktarvy oral tablet 1 tablet, By Mouth, Daily, # 30 tablet, 5 Refills, Maintenance, 08/24/19 9:40:00 EST, Tablet, [place], [place] -, 1 tablet By Mouth Daily,x30 [...] 09/26/19 12:05:00 EST, Route to Pharmacy Electronically, [place], [place] -, 172, cm, 09/26/19 8:57:00 EST, [place]... Start Date: 09/26/19 Status: Ordered fluconazole 200 mg oral tablet 1 tablet = 200 mg, By Mouth, Daily, for 28 days, # 28 tablet, 5 Refills, Acute 02/08/20 9:42:00 EDT, 08/24/19 9:42:00 EST, Tablet, [place], [place] -, Decrease in dose., 170, cm, 08/24/19 9:21:00 EST, Height, 66.36, kg, 03/10/19 16:51... Start Date: 08/24/19 Stop Date: 02/08/20 Status: Ordered gabapentin 100 mg oral capsule 200 mg, 2, capsule, By Mouth, 3 times a day, # 180 capsule, Refills 0, Tot. Refills 0, Maintenance,09/26/19 12:07:00 EST, Route to Pharmacy Electronically, [place], [place] -, 172, cm, 09/26/19 8:57:00 EST, Height, 66.3, kg, 09/11/19... Start Date: 09/26/19 Status: Ordered lithium 300 mg oral capsule 2 capsule = 600 mg, By Mouth, Daily at bedtime, # 60 capsule, 0 Refills, Maintenance, 09/26/19 12:09:00 EST, [place], [place] -, 172, cm, 09/26/19 8:57:00 EST, Height, 66.3, kg, 09/11/19 13:26:00 EST, Dry Weight Start Date: 09/26/19 Status: Ordered lithium 300 mg oral tablet 1 tablet = 300 mg, By Mouth, Daily, # 30 tablet, 0 Refills, Maintenance, 09/26/19 12:08:00 EST, Tablet, [place], [place] -, 172, cm, 09/26/19 8:57:00 EST, [...] 0 Refills, Maintenance, 09/26/19 12:07:00 EST, Tablet, [place], [place] -, 172, cm, 09/26/19 8:57:00 EST, Height, 66.3, kg,09/11/19 13:26:00 EST, Dry Weight Start Date: 09/26/19 Status: Ordered multivitamin with minerals Calcium and Magnesium oral tablet 1 tablet, By Mouth, Daily, # 30 tablet, 5 Refills, Maintenance, 09/26/19 12:05:00 EST, Tablet, [place], [place] -, 1 tablet By Mouth Daily,x30 days, 172, cm, 09/26/19 8:57:00 EST, Height, 66.3, kg, 09/11/19 13:26:00 EST, Dry Weight Start Date: 09/26/19 Stop Date: 03/24/20 Status: Ordered Narcan 4 mg/0.1 mL nasal spray See Instructions, 4 mg Once may repeat every 2 to 3 minutes until patient responds, # 2 each, 1 Refills, Soft Stop, 08/24/19 9:41:00 EST, [facility] - [place] -, MAMADOU García to pharmacy picking tech for Pt., 170, cm, 08/24/19 [...]
--- OUTSIDE RECORDS SUMMARY | 2023-07-12 20:12 | XMS_ITS | Continuity of Care Document ---
Author Name Unknown Organization [facility] y Address [address] [place] [address]- Care Team Providers Care Energy Conservation Representative Name Role Phone Conner QUEEN, Namrata Agarwal Primary Care Physician [place] [facility] [place] [facility] [address] [place] [address] Attending Physician: Isidoro Neely MD Admitting Physician: Isidoro Neely MD Referring Physician: Isidoro Neely MD Allergies, Adverse Reactions, [...] 8:29:00 EDT, Powder, Route to Pharmacy Electronically, [id number], [facility] - Spr... Start Date: 01/07/22 Stop Date: 01/02/23 Status: Ordered Albuterol (Eqv-ProAir HFA) 90 mcg/inh inhalation aerosol 2 puffs, Inhalation, Every 6 hours, # 8.5 Gm, 11 Refills, 08/25/21 12:34:00 EST, [place], [place] - [id number], 25, 2 puffs Inhalation Every 6 hours, 173, cm, 08/25/21 12:31:00 EST, Height, 84, kg, 04/19/21 2:36:00 EDT, Dry Weight Start Date: 08/25/21 Status: Ordered amLODIPine 10 mg oral tablet 10 mg, 1, tablet, By Mouth, Daily, # 30 tablet, Refills 11, Tot. Refills 11, Maintenance, 08/27/21 16:46:00 EST, Route to Pharmacy Electronically, [facility] [id number], 173,cm, 08/25/21 12:31:00 EST, Height, 84, kg, 04/19/21... Start Date: 08/27/21 Status: Ordered Asperflex 4% topical film 1 patch, Topically, Daily, for 30 days, # 30 patch, 11 Refills, Acute 03/12/23 14:41:00 EDT, 03/17/22 14:41:00 EDT, [facility] [id number], Partial fill upon patient request if the prescription is for a schedule II opioid drug.... Start Date: 03/17/22 Stop Date: 03/12/23 Status: Ordered aspirin 81 mg oral tablet, chewable 81 mg, 1, tablet, By Mouth, Daily, # 120 tablet, Refills 3, Tot. Refills 3, Maintenance, 10/02/21 11:47:00 EST, Route to Pharmacy Electronically, [place], [place] - [id number], Partial fill upon patient request if the prescription is... Start Date: 10/02/21 Stop Date: 01/25/23 Status: Ordered atorvastatin 80 mg oral tablet 1 tablet = 80 mg, By Mouth, Daily, # 30 tablet, 11 Refills, Maintenance, 11/07/21 14:34:00 EST, Tablet, [place], [place] - [id number], Partial fill upon patient request if the prescription is for a schedule II opioid drug., 170, cm, 0... Start Date: 11/07/21 Status: Ordered Biktarvy oral tablet 1 tablet, By Mouth, Daily, # 30 tablet, 11 Refills, [facility], 30, TAKE ONE TABLET BY MOUTH [...] Soft Stop, 03/05/22 10:37:00 EDT, [facility] [id number], Partial fill upon patient request if the prescriptio... Start Date: 03/05/22 Status: Ordered hydrocortisone 0.5% topical cream See Instructions, use sparingly on face, use on all other affected areas, # 28 Gm, 11 Refills, Maintenance, 03/07/21 6:50:00 EDT, [facility] [id number], use sparingly on face, use on all other affected areas, 174, cm, 01/13/21... Start Date: 03/07/21 Status: Ordered Incruse Ellipta 62.5 mcg/inh inhalation powder 1 puffs, Inhalation, Every 24 hours, doses should be taken AT least 24 HOURS APART, # 30 Unknown, 11 Refills, 08/25/21 12:34:00 EST, [facility] [id number], 173, cm, 08/25/21 12:31:00 EST, Height, 84, kg, 04/19/21 2:36:00 EDT,... Start Date: 08/25/21 Status: Ordered ketoconazole 2% topical cream 1 application, Topically, Daily, # 30 Gm, 11 Refills, Maintenance, 04/20/22 9:23:00 EDT, [place], [facility] [id number], 1 application Topically Daily, 173, cm, 12/05/21 17:38:00 EDT,Height, 127, kg, 12/05/21 17:38:00 EDT, Dry Weight Start Date: 04/20/22 Status: Ordered Lidoderm 5% film 1 patch, Topically, Daily, # 30 patch, 11 Refills, Maintenance, 03/19/22 21:12:00 EDT, [place], [facility] [id number], Partial fill upon patient request if the [...] 11 Refills, Maintenance, 12/15/21 6:32:00 EDT, Tablet, [place], [place] - [id number], 1 tablet By Mouth Daily, 173, cm, 12/05/21 17:38:00 EDT,Height, 127, kg, 12/05/21 17:38:00 EDT, Dry Weight Start Date: 12/15/21 Status: Ordered Narcan 4 mg/0.1 mL nasal spray See Instructions, 4 mg Once may repeat every 2 to 3 minutes until patient responds, # 2 each, 3 Refills, Soft Stop, 03/05/22 10:07:00 EDT, [place], [facility] [id number], 173, cm, 12/05/21 17:38:00 EDT, Height, 127, kg, 12/05/21 17:38... Start Date: 03/05/22 Status: Ordered Nicotine 2 mg gum 1 each = 2 mg, Chew, Every 2 hours, PRN as needed for smoking cessation, for 4 week(s), # 160 each,11 Refills, Acute 09/11/22 12:53:00 EST, 10/10/21 12:53:00 EST, Gum, [place],[facility] [id number], Partial fill upon patient request... Start Date: 10/10/21 Stop Date: 09/11/22 Status: Ordered ondansetron 4 mg oral tablet, disintegrating 1 tablet = 4 mg, By Mouth, Every 8 hours, PRN as needed for nausea/vomiting, # 12 tablet, 11 Refills, Maintenance, 08/21/21 13:33:00 EST, DIS Tablet, [facility] [id number], Partial fill upon patient request if the [...] Refills, Maintenance, 12/02/21 16:55:00 EDT, REC Powder, [facility] [id number], 17 Gm By Mouth 2 times a day,x30 days,PRN:Constip... Start Date: 12/02/21 Stop Date: 04/01/22 Status: Ordered rOPINIRole 0.5 mg oral tablet 1 tablet = 0.5 mg, By Mouth, Daily at bedtime, 1 to 3 hours before bedtime, # 30 tablet, 11 Refills, Maintenance, 08/21/21 13:32:00 EST, Tablet, [place], [facility] [id number], Partial fill upon patient request if the prescription is f... Start Date: 08/21/21 Status: Ordered sildenafil 100 mg oral tablet 1 tablet = 100 mg, By Mouth, Daily, 1 hour before sexual activity, # 20 tablet, 11 Refills, Maintenance, 04/20/22 9:24:00 EDT, Tablet, [facility] [id number], disreguard last script for 0.5 tab, 173, cm, 12/05/21 17:38:00 EDT,... Start Date: 04/20/22 Status: Ordered varenicline 1mg tablet 1 tablet = 1 mg, By Mouth, Daily, 0.5 tab daily x 3 days then 0.5 tab BID x 3 days then 1 tab BID, # 30 tablet, 4 Refills, Maintenance, 04/01/22 16:45:00 EDT, Tablet, [facility] [id number], Partial fill upon patient request if... Start [...] 11 Refills, Maintenance, 06/04/22 17:32:00 EDT, Capsule, [facility] [id number], D/c vitamin high dosed, 173, cm, 05/10/22 20:46:00 EDT, Height, 95.5, kg, 05/10/22 20:46:00 EDT... Start Date: 06/04/22 Status: Ordered Problem List Condition Confirmation Course Effective Dates Status [facility] at Informant Latex allergy Confirmed Active Allergy to shellfish Confirmed Active Stroke -2021 Confirmed 09/2021 Active Chronic active hepatitis C - genotype 1a - steatohepatitis/spl enomegally Confirmed Active Constipation Confirmed Active Cryptococcal meningitis - 01/2019 Confirmed Active Depression - Olinda therapist, [facility] Confirmed Active Diastolic dysfunction [...] Name: Conner QUEEN, Namrata Agarwal Address: Address: [address] [place] [address], -Level [facility] [address]
--- OUTSIDE RECORDS SUMMARY | 2023-07-12 20:12 | XMS_ITS | Continuity of Care Document ---
Author Name Unknown Organization [facility] Address [address] [place] [address]- Care Team Providers Care Food Management Aide Name Role Phone Conner QUEEN, Namrata Agarwal Primary Care Physician [facility] Date[facility]): 06/[facility]23 - 07/03/23 [facility] [address] [place] [address] Allergies, Adverse Reactions, Alerts Substance Reaction Severity Status naltrexone fever, hallucinations Active shellfish Active Bee Stings Active Latex rash Active Suboxone migraine (PO), fevers (IM) A ctive Immunizations Given and Recorded Vaccine Date Status Refusal Reason pneumococcal 20-valent conjugate vaccine 07/01/23 Given influenza virus vaccine, inactivated 07/01/23 Give n influenza virus vaccine, inactivated 09/30/21 Give n influenza virus vaccine, inactivated 07/02/20 Give n influenza virus vaccine, inactivated 06/08/19 Give n SARS-CoV-2 (COVID-19) mRNA-1273 vaccine 09/30/21 G iven SARS-CoV-2 (COVID-19) mRNA-1273 vaccine 04/21/21 G iven Medications amLODIPine 10 mg oral tablet 10 mg, 1, tablet, By Mouth, Daily, # 90 tablet, Refills 3, Tot. Refills 3, Maintenance, 02/16/23 10:45:00 EDT, Route to Pharmacy Electronically, [facility] [place], [place] - [id number], 173, cm, 01/21/23 11:36:00 EDT, Height, 93.18, kg, 2... Start Date: 02/16/23 Status: Ordered aspirin 81 mg oral tablet, chewable 81 mg, 1, tablet, By Mouth, Daily, # 90 tablet, Refills 3, Tot. Refills 3, Maintenance, 02/16/23 10:45:00 EDT, Route to Pharmacy Electronically, [facility] [id number], Partial fill upon patient request if the prescription is f... Start Date: 02/16/23 Status: Ordered atorvastatin 80 mg oral tablet 1 tablet = 80 mg, By Mouth, Daily, # 90 tablet, 3 Refills, Maintenance, 02/16/23 10:45:00 EDT, Tablet, [facility] [id number], Partial fill upon patient request if the prescription is for a schedule II opioid drug., 173, cm, 05... Start Date: 02/16/23 Status: Ordered Biktarvy oral tablet 1 tablet, By Mouth, Daily, must get appt and labs for refills, # 30 tablet, 0 Refills, Maintenance,12/16/22 19:18:00 EDT, [facility] [id number], 30, 1 tablet By Mouth Daily,Instr:must get appt and labs for refills, 173, cm, 0... Start Date: 12/16/22 Status: Ordered Cabenuva 600/900 intramuscular suspension, extended release See Instructions, MONTH 1 & MONTH 2: 2 INJECTIONS INTRAMUSCULARLY MONTHLY; MONTH 4+: 2 INJECTIONS INTRAMUSCULARLY EVERY 2 MONTHS, # 6 each, 6 Refills, Maintenance, 07/01/23 9:54:00 EDT, [facility],Partial fill upon patient request if the prescription i... Start Date: 07/01/23 Status: Ordered cloNIDine 0.1 mg oral tablet 0.1 mg, 1, tablet, By Mouth, 3 times a day, PRN, # 90 tablet, Refills 4, Tot. Refills 4, Maintenance, Anxiety, 06/04/23 11:21:00 EDT, Route to Pharmacy Electronically, [facility], Partial fill upon patient request if the prescription... Start Date: 06/04/23 Status: Ordered Colace sodium 100 mg oral capsule 100 mg, 1, capsule, By Mouth, 2 times a day, PRN, # 180 capsule, Refills 3, Tot. Refills 3, Maintenance, for constipation, 02/16/23 10:45:00 EDT, Route to Pharmacy Electronically, [facility] [id number], Partial fill upon patie... Start Date: 02/16/23 Status: Ordered EpiPen 2-Devin 0.3 mg injectable kit = 0.3 mg, Intramuscular, Once, may repeat if necessary, # 2 each, 1 Refills, Soft Stop, 04/14/23 14:07:00 EDT, [facility] [id number], Partial fill upon patient request if theprescription is for a schedule II opioid drug., 176... Start Date: 04/14/23 Status: Ordered fluticasone-salmeterol 250 mcg-50 mcg inhalation powder 1, puffs, Inhalation, 2 times a day, # 3 each, Refills 3, Tot. Refills 3, Maintenance, 02/16/23 10:45:00 EDT, Powder, Route to Pharmacy Electronically, [id number], [facility] [id number], 173, cm, 01/04... Start Date: 02/16/23 Status: Ordered gabapentin 300 mg oral capsule 600 mg, 2, capsule, By Mouth, Daily at bedtime, 1 cap qHS x 1 week then 2 cap qHS, # 60 capsule, Refills 4, Tot. Refills 4, Maintenance, 07/02/23 12:03:00 EDT, Route to Pharmacy Electronically, [facility] [id number], Partial f... Start Date: 07/02/23 Status: Ordered Incruse Ellipta 62.5 mcg/inh inhalation powder 1 puffs, Inhalation, Every 24 hours, # 3 each, 3 Refills, Maintenance, 06/30/23 13:10:00 EDT, [facility] [id number], 176, cm, 06/24/23 21:18:00 EDT, Height, 99.5, kg, 02/26/23 9:56:00 EDT, Dry Weight Start Date: 06/30/23 Status: Ordered Lidoderm 5% film 2 patch, Topically, Daily, remove patches after 12 hours; 2 patches to pain areas; can cut patches in half; do not excede 2 patches., # 60 patch, 4 Refills, Maintenance, 07/02/23 12:08:00 EDT, [place], [place] - [id number], Partial fi... Start Date: 07/02/23 Stop Date: 11/29/23 Status: Ordered Satanta 200 mg, By Mouth, Daily at bedtime, [...] a day Start Date: 05/07/22 Status: Ordered melatonin 3 mg oral tablet 1 tablet = 3 mg, By Mouth, Daily at bedtime, # 30 tablet, 4 Refills, Maintenance, 06/04/23 11:20:00EDT, [facility], Partial fill upon patient request if the prescription is for a schedule II opioid drug., 176, cm, 02/27/23 12:13:00... Start Date: 06/04/23 Status: Ordered Methadone = 120 mg, By Mouth, Daily, gets dose from methadone clinic., 0 Refills, Maintenance, 02/27/23 14:15:00 EDT, Tablet, Partial fill upon patient request if the prescription is for a schedule II opioid drug. Start Date: 02/27/23 Status: Ordered nicotine 4 mg oral transmucosal lozenge 1 lozenge = 4 mg, By Mouth, Every 2 hours, PRN as needed for smoking cessation, as directed on package labeling, # 1,080 lozenge, 3 Refills, Maintenance, 07/02/23 12:09:00 EDT, [place], [place] - [id number], Partial fill upon patient... Start Date: 07/02/23 Stop Date: 09/24/23 Status: Ordered pantoprazole 40 mg oral delayed release tablet 1 tablet = 40 mg, By Mouth, Daily, # 90 tablet, 3 Refills, Maintenance, 02/16/23 10:45:00 EDT, [facility] Tablet, 173, cm, 05/18/23 11:36:00 EDT, Height, 93.18, kg, 08/12/22 0:40:00 EST, Dry Weight Start Date: 02/16/23 Status: Ordered traZODone 50 mg oral tablet 50 mg, 1, tablet, By Mouth, Daily at bedtime, # 30 tablet, Refills 4, Tot. Refills 4, Maintenance, 06/04/23 11:19:00 EDT, Route to Pharmacy Electronically, [facility], Partial fill upon patient request if the prescription is for a sc... Start Date: 06/04/23 Status: Ordered triamcinolone 0.025% topical cream 1 application, Topically, 2 times a day, for 14 days, eczema, # 30 Gm, 4 Refills, Acute 09/10/23 12:58:00 EST, 07/02/23 12:58:00 EDT, Cream, [facility] [id number], Partial fill upon patient request if the prescription is for a... Start Date: 07/02/23 Stop Date: 09/10/23 Status: Ordered Ventolin HFA 108 mcg/inh inhalation aerosol with adapter 2 puffs, Inhalation, 4 times a day, PRN for wheezing, # 3 each, 3 Refills, Maintenance, 02/16/23 10:45:00 EDT, Aerosol, [facility] [id number], Partial fill upon patient request if the prescription is for a schedule II opioid d... Start Date: 02/16/23 Status: Ordered Vitamin D3 1000 intl units oral capsule 1 capsule = 25 mcg, By Mouth, Daily, # 90 capsule, 3 Refills, Maintenance, 02/16/23 10:45:00 EDT, Capsule, [facility] [id number], D/c vitamin high dosed, 173, cm, 01/21/23 11:36:00 EDT, Height, 93.18, kg, 08/12/22 0:40:00 EST,... 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 Impaired LV relaxation Social History Social History Type Response Tobacco Use: 4 or less cigar ettes(less than 1/4 pack)/day in last 30 days. Other: tyring to quit smoked 1 cigarette. Sex Patient Care team information Care Team Personnel Name: Jadiel Watson RN Position: [facility] ED RN W/OE and Tasks Member Role: Primary Care Nurse Name: Dede Mccluod RN Position: [facility] RN Member Role: Primary Care Nurse Name: Judy Gonzales RN Position: [facility] RN Member Role: Primary Care Nurse Name: Enma Manriquez RN Position: [facility] AMB Nurse Member Role: Primary Care Nurse Name: Zuhair Lopez RN Position: [facility] RN Member Role: Primary Care Nurse Name: Edie Bob RN Position: [facility] RN Member Role: Primary Care Nurse Name: Lisbet Gardiner RN Position: [facility] AMB Nurse Member Role: Primary Care Nurse Name: Namrata Prieto MD Position: [facility] Physician - Primary Care Member Role: PCP Address: Address: [address] [place] [address] [place] [address]- Name: Carolina Valero RN Position: [facility] RN Member Role: Primary Care Nurse Name: Nishi San RN Position: [facility] RN Member Role: Primary Care Nurse Name: Micky Boyd RN Position: [facility] RN Member Role: Primary Care Nurse Name: Lauri Combs NP Position: Reference Physician Member Role: Primary Care Nurse Address: Address: [address] [place] [address] [address] [facility] [place] [address]- [place] Name: Griselda Rand Position: [facility] RN Supv Member Role: Primary Care Nurse Care Team Related Persons Name: JASWINDER LUIS Address: [place] [address] Name: BROOKE OWEN Address: home [address] [address] Name: KARYN OWEN Address: [address] [place] [address] Name: DOMINGO LEONE Address: home [address] [place] [address]
--- OUTSIDE RECORDS SUMMARY | 2023-07-12 20:12 | XMS_ITS | Continuity of Care Document ---
Author Name Unknown Organization [facility] Address [address] [place] [address]- Care Team Providers Care Textile Supervisor Name Role Phone Conner QUEEN, Namrata Agarwal Primary Care Physician [facility] Date[facility]): 03/06[facility]20 - 04/05/20 [facility] [address] [place] [address]- [facility] Allergies, Adverse Reactions, Alerts Substance Reaction Severity Status shellfish Active Latex rash Active Immunizations Given and Recorded Vaccine Date Status Refusal Reason influenza virus vaccine, inactivated 06/08/19 Give n Medications amLODIPine 5 mg oral tablet 5 mg, 1, tablet, By Mouth, Daily, # 30 tablet, Refills 5, Tot. Refills 5, Maintenance, 11/28/19 9:43:00 EDT, Route to Pharmacy Electronically, [facility] - [place], [place] -, 172, cm, 09/26/19 8:57:00 EST, Height, 66.3, kg, 09/11/19 13:26:00 EST,... Start Date: 11/28/19 Stop Date: 05/26/20 Status: Ordered atovaquone 750 mg/5 mL oral suspension 10 mL = 1,500 mg, By Mouth, Daily, for 60 days, # 600 mL, 5 Refills, Acute 11/22/20 9:44:00 EDT, 11/28/19 9:44:00 EDT, Suspension, [facility] [place], [place] -, Pls cancel bactrim prescription. Atovaquone to replace bactrim, 172, cm, 09/26/19 8... Start Date: 11/28/19 Stop Date: 11/22/20 Status: Ordered Biktarvy oral tablet 1 tablet, By Mouth, Daily, for 30 days, # 30 tablet, 5 Refills, Hard Stop 08/25/20 12:37:00 EST, 02/27/20 12:37:00 EDT, Tablet, [place], [place] -, 1 tablet By Mouth Daily,x30 days, 171, cm, 02/22/20 10:16:00 EDT, Height, 59.5, kg, 04... Start Date: 02/27/20 Stop Date: 08/25/20 Status: Ordered Biktarvy oral tablet 1 tablet, By Mouth, Daily, # 30 tablet, 5 Refills, Maintenance, 08/18/20 5:43:00 EST, Tablet, [place], [place] -, 1 tablet By Mouth Daily,x30 [...] 12/29/19 16:19:00 EDT, Route to Pharmacy Electronically, [place], [place] -, 171, cm, 12/29/19 15:28:00 EDT, Hei... Start Date: 12/29/19 Status: Ordered gabapentin 100 mg oral capsule 200 mg, 2, capsule, By Mouth, 3 times a day, # 180 capsule, Refills 3, Tot. Refills 3, Maintenance,02/27/20 12:37:00 EDT, Route to Pharmacy Electronically, [place], [place] -, 171, cm, 02/22/20 10:16:00 EDT, Height, 59.5, kg, 2... Start Date: 02/27/20 Stop Date: 06/26/20 Status: Ordered hydrocortisone 0.5% topical cream See Instructions, apply in a thin film to the hands and rub in gently 3 times a day for 5 days, # 28 Gm, 1 Refills, Maintenance, 02/27/20 12:35:00 EDT, [place], [place] -, apply in athin film to the hands and rub in gently 3 times a... Start Date: 02/27/20 Status: Ordered ketoconazole 2% topical shampoo 1 application, Topically, Daily, try daily for 5 days as a shampoo, # 120 mL, 3 Refills, Soft Stop,12/21/19 11:58:00 EDT, Shampoo, [place], [place] -, 1 application Topically Daily,Instr:try daily for 5 days as a shampoo, 172, cm, 01... Start Date: 12/21/19 Status: Ordered lithium 300 mg oral capsule See Instructions, 1 capsule by mouth in the AM and 2 capsule By Mouth Daily at bedtime 30 days, # 90 capsule, 2 Refills, Maintenance, 03/26/20 9:27:00 EDT, [place], [place] -, Increase in dose per Psychiatry, 171, cm, 03/26/20 8:54:00... Start Date: 03/26/20 Status: Ordered LORazepam 0.5 mg oral tablet 1 tablet = 0.5 mg, By Mouth, 2 times a day, PRN Anxiety, # 60 tablet, 2 Refills, Maintenance, 02/27/20 12:37:00 EDT, Tablet, [place], [place] -, 171, cm, 02/22/20 10:16:00 EDT, [...] tablet, 5 Refills, Maintenance, 11/28/19 9:41:00EDT, Tablet, [place], [place] -, 172, cm, 09/26/19 8:57:00 EST, Height, 66.3, kg, 09/11/19 13:26:00 EST, Dry Weight Start Date: 11/28/19 Stop Date: 05/26/20 Status: Ordered multivitamin with minerals Calcium and Magnesium oral tablet 1 tablet, By Mouth, Daily, # 30 tablet, 5 Refills, Maintenance, 09/26/19 12:05:00 EST, Tablet, [place], [place] -, 1 tablet By Mouth Daily,x30 days, 172, cm, 09/26/19 8:57:00 EST, Height, 66.3, kg, 09/11/19 13:26:00 EST, Dry Weight Start Date: 09/26/19 Stop Date: 03/24/20 Status: Ordered Narcan 4 mg/0.1 mL nasal spray See Instructions, 4 mg Once may repeat every 2 to 3 minutes until patient responds, # 2 each, 1 Refills, Soft Stop, 08/24/19 9:41:00 EST, [place], [place] -, MAMADOU Munozll to belt picker for Pt., 170, cm, [...] Refills, Maintenance, 11/28/19 9:42:00 EDT, REC Powder, [place], [place] -, 17 Gm By Mouth 2 times a day,x30 days,PRN:Constipation,Instr:... Start Date: 11/28/19 Stop Date: 03/27/20 Status: Ordered SEROquel 25 mg oral tablet 25 mg, 1, tablet, By Mouth, Daily at bedtime, # 30 tablet, Refills 2, Tot. Refills 2, Maintenance, 03/26/20 9:29:00 EDT, Route to Pharmacy Electronically, [facility] - [place], [place] -, 171, cm, 03/26/20 8:54:00 EDT, [...]
--- OUTSIDE RECORDS SUMMARY | 2023-07-12 20:12 | XMS_ITS | Continuity of Care Document ---
Author Name Unknown Organization [facility] Address [address] [place] [address]- Care Team Providers Care Pershing Missile Crewmember Name Role Phone Conner QUEEN, Namrata Agarwal Primary Care Physician [phone] Encounter [facility] Date(s): 10/01/21 - 11/01/21 [facility] [address] [place], [place] [address] Attending Physician: Isidoro Neely MD Admitting [...] 13:14:00 EST, Powder, Route to Pharmacy Electronically, [id number], [facility]... Start Date: 08/21/21 Stop Date: 01/18/22 Status: Ordered Albuterol (Eqv-ProAir HFA) 90 mcg/inh inhalation aerosol 2 puffs, Inhalation, Every 6 hours, # 8.5 Gm, 11 Refills, 08/25/21 12:34:00 EST, [facility], [facility] [id number], 25, 2 puffs Inhalation Every 6 hours, 173, cm, 08/25/21 12:31:00 EST, Height, 84, kg, 04/19/21 2:36:00 EDT, Dry Weight Start Date: 08/25/21 Status: Ordered amLODIPine 10 mg oral tablet 10 mg, 1, tablet, By Mouth, Daily, # 30 tablet, Refills 11, Tot. Refills 11, Maintenance, 08/27/21 16:46:00 EST, Route to Pharmacy Electronically, [facility], [facility] [id number], 173,cm, 08/25/21 12:31:00 EST, Height, 84, kg, 04/19/21... Start Date: 08/27/21 Status: Ordered aspirin 81 mg oral tablet, chewable 81 mg, 1, tablet, By Mouth, Daily, # 120 tablet, Refills 3, Tot. Refills 3, Maintenance, 10/02/21 11:47:00 EST, Route to Pharmacy Electronically, [facility] [id number], Partial fill upon patient request if the prescription is... Start Date: 10/02/21 Stop Date: 01/25/23 Status: Ordered atorvastatin 80 mg oral tablet 1 tablet = 80 mg, By Mouth, Daily at bedtime, # 90 tablet, 4 Refills, Maintenance, 10/02/21 11:47:00 EST, Tablet, [facility], [place] - [id number], Partial fill upon patient request if the prescription is for a schedule II opioid drug.,... Start Date: 10/02/21 Stop Date: 12/26/22 Status: Ordered atovaquone 750 mg/5 mL oral suspension 10 mL = 1,500 mg, By Mouth, Daily, for 60 days, # 600 mL, 11 Refills, Acute 02/25/23 6:50:00 EDT, 03/07/21 6:50:00 EDT, Suspension, [facility], [place] - [id number], Pls cancel bactrim prescription. Atovaquone to replace bactrim, 174, cm... Start Date: 03/07/21 Stop Date: 02/25/23 Status: Ordered Biktarvy oral tablet 1 tablet, By Mouth, Daily, # 30 tablet, 11 Refills, [facility], 30, TAKE ONE TABLET BY MOUTH [...] FOR CONSTIPATION, # 60 each, 5 Refills, [facility], 173, cm, 04/21/21 8:17:00 EDT, Height, 84, kg, 04/19/21 2:36:00 EDT, Dry Weight Start Date: 06/02/21 Status: Ordered hydrocortisone 0.5% topical cream See Instructions, use sparingly on face, use on all other affected areas, # 28 Gm, 11 Refills, Maintenance, 03/07/21 6:50:00 EDT, [facility] [id number], use sparingly on face, use on all other affected areas, 174, cm, 01/13/21... Start Date: 03/07/21 Status: Ordered Incruse Ellipta 62.5 mcg/inh inhalation powder 1 puffs, Inhalation, Every 24 hours, doses should be taken AT least 24 HOURS APART, # 30 Unknown, 11 Refills, 08/25/21 12:34:00 EST, [place], [place] - [id number], 173, cm, 08/25/21 12:31:00 EST, Height, 84, kg, 04/19/21 2:36:00 EDT,... Start Date: 08/25/21 Status: Ordered ketoconazole 2% topical cream See Instructions, APPLY TO THE AFFECTED AREA TOPICALLY 2 (two) times a day. USE ON THE FACE, # 60 Gm, 11 Refills, [facility], 30, APPLY TO THE AFFECTED [...] 11 Refills, Maintenance, 03/07/21 6:51:00 EDT, Tablet, [place], [place] - [id number], 1 tablet By Mouth Daily, 174, cm, 01/13/21 8:20:00 EDT, Height, 93, kg, 01/08/21 18:17:00 EDT, Dry Weight Start Date: 03/07/21 Status: Ordered Narcan 4 mg/0.1 mL nasal spray See Instructions, 4 mg Once may repeat every 2 to 3 minutes until patient responds, # 2 each, 1 Refills, Soft Stop, 08/24/19 9:41:00 EST, [place], [place] -, MAMADOU García to pickup driver for Pt., 170, cm, 08/24/19 9:21:00 EST, Height, 66.36,... Start Date: 08/24/19 Status: Ordered Nicotine 2 mg gum 1 each = 2 mg, Chew, Every 2 hours, PRN as needed for smoking cessation, for 4 week(s), # 160 each,11 Refills, Acute 09/11/22 12:53:00 EST, 10/10/21 12:53:00 EST, Gum, [facility] [id number], Partial fill upon patient request... Start Date: [...] Refills, Maintenance, 08/21/21 13:33:00 EST, DIS Tablet, [facility] [id number], Partial fill upon patient request if the [...] 11:47:00 EST, Route to Pharmacy Electronically, [facility], [facility] [id number], Partial fill upon patient request if the prescription is f... Start Date: 10/02/21 Stop Date: 12/31/21 Status: Ordered polyethylene glycol 3350 oral powder for reconstitution = 17 Gm, By Mouth, 2 times a day, PRN Constipation, dissolve in water before taking, # 527 Gm, 3 Refills, Maintenance, 11/28/19 9:42:00 EDT, REC Powder, [place], [place] -, 17 Gm By Mouth 2 times a day,x30 days,PRN:Constipation,Instr:... Start Date: 11/28/19 Stop Date: 03/27/20 Status: Ordered polyethylene glycol 3350 oral powder for reconstitution See Instructions, DISSOLVE 17grams powder IN WATER BEFORE drinking 2 (two) times a day NEEDED FOR CONSTIPATION, # 510 Gm, 11 Refills, [facility], 30, DISSOLVE 17grams powder IN WATER BEFORE drinking 2 (two) times a day NEEDED FOR CONSTIPATI... Start Date: 09/03/21 Status: Ordered rOPINIRole 0.5 mg oral tablet 1 tablet = 0.5 mg, By Mouth, Daily at bedtime, 1 to 3 hours before bedtime, # 30 tablet, 11 Refills, Maintenance, 08/21/21 13:32:00 EST, Tablet, [facility] [id number], Partial fill upon patient request if the prescription is f... Start Date: 08/21/21 Status: Ordered Senna 8.6 mg oral tablet 1 or 2 tablets, By Mouth, Daily at bedtime, PRN, # 60 tablet, Refills 5, Tot. Refills 5, Maintenance, Constipation, 10/10/21 14:43:00 EST, Route to Pharmacy Electronically, [place], [place] - [id number] Tablet, Partial fill upon patie... Start Date: 10/10/21 Status: Ordered sildenafil 100 mg oral tablet 1 tablet = 100 mg, By Mouth, Daily, 1 hour before sexual activity, # 20 tablet, 11 Refills, Maintenance, 03/07/21 6:49:00 EDT, Tablet, [facility] [id number], Partial fill upon patient request if the prescription is for a sched... 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
--- OUTSIDE RECORDS SUMMARY | 2023-07-12 20:12 | XMS_ITS | Continuity of Care Document ---
Author Name Unknown Organization [facility] ter Address [address] [place] [id number]- Care Team Providers Care Game Programer Name Role Phone Conner QUEEN, Namrata Agarwal Primary Care Physician [phone] Encounter [facility] Date(s): 05/06/22 - 05/08/[address] [address] Discharge Disposition: A-D/C Home Attending Physician: Eligio Marroquin MD Admitting Physician: Eligio Marroquin MD Referring Physician: Not on Staff, Referring MD Allergies, Adverse Reactions, Alerts Substance Reaction Severity Status Bee Stings Active Suboxone migraine (PO), fevers [...] 8:29:00 EDT, Powder, Route to Pharmacy Electronically, [id number], [facility] - Spr... Start Date: 01/07/22 Stop Date: 01/02/23 Status: Ordered Albuterol (Eqv-ProAir HFA) 90 mcg/inh inhalation aerosol 2 puffs, Inhalation, Every 6 hours, # 8.5 Gm, 11 Refills, 08/25/21 12:34:00 EST, [facility] [id number], 25, 2 puffs Inhalation Every 6 hours, 173, cm, 08/25/21 12:31:00 EST, Height, 84, kg, 04/19/21 2:36:00 EDT, Dry Weight Start Date: 08/25/21 Status: Ordered amLODIPine 10 mg oral tablet 10 mg, 1, tablet, By Mouth, Daily, # 30 tablet, Refills 11, Tot. Refills 11, Maintenance, 08/27/21 16:46:00 EST, Route to Pharmacy Electronically, [facility] [id number], 173,cm, 08/25/21 12:31:00 EST, Height, 84, kg, 04/19/21... Start Date: 08/27/21 Status: Ordered amLODIPine 10 mg oral tablet 10 mg, Tablet, By Mouth, 05/08/22 10:44:00 EDT Start Date: 05/08/22 Stop Date: 05/08/22 Status: Completed Asperflex 4% topical film 1 patch, Topically, Daily, for 30 days, # 30 patch, 11 Refills, Acute 03/12/23 14:41:00 EDT, 03/17/22 14:41:00 EDT, [facility] [id number], Partial fill upon patient request if the prescription is for a schedule II opioid drug.... Start Date: 03/17/22 Stop Date: 03/12/23 Status: Ordered aspirin 81 mg oral tablet, chewable 81 mg, 1, tablet, By Mouth, Daily, # 120 tablet, Refills 3, Tot. Refills 3, Maintenance, 10/02/21 11:47:00 EST, Route to Pharmacy Electronically, [facility] [id number], Partial fill upon patient request if the prescription is... Start Date: 10/02/21 Stop Date: 01/25/23 Status: Ordered atorvastatin 80 mg oral tablet 1 tablet = 80 mg, By Mouth, Daily, # 30 tablet, 11 Refills, Maintenance, 11/07/21 14:34:00 EST, Tablet, [facility], [place] - [id number], Partial fill upon patient request if the prescription is for a schedule II opioid drug., 170, cm, 0... Start Date: 11/07/21 Status: Ordered Biktarvy oral tablet 1 tablet, By Mouth, Daily, # 30 tablet, 11 Refills, [facility], 30, TAKE ONE TABLET BY [...] 1 Refills, Soft Stop, 03/05/22 10:37:00 EDT, [facility] [id number], Partial fill upon patient request if the prescriptio... Start Date: 03/05/22 Status: Ordered hydrocortisone 0.5% topical cream See Instructions, use sparingly on face, use on all other affected areas, # 28 Gm, 11 Refills, Maintenance, 03/07/21 6:50:00 EDT, [facility] [id number], use sparingly on face, use on all other affected areas, 174, cm, 01/13/21... Start Date: 03/07/21 Status: Ordered Incruse Ellipta 62.5 mcg/inh inhalation powder 1 puffs, Inhalation, Every 24 hours, doses should be taken AT least 24 HOURS APART, # 30 Unknown, 11 Refills, 08/25/21 12:34:00 EST, [facility] [id number], 173, cm, 08/25/21 12:31:00 EST, Height, 84, kg, 04/19/21 2:36:00 EDT,... Start Date: 08/25/21 Status: Ordered ketoconazole 2% topical cream 1 application, Topically, Daily, # 30 Gm, 11 Refills, Maintenance, 04/20/22 9:23:00 EDT, [facility] [id number], 1 application Topically Daily, 173, cm, 12/05/21 17:38:00 EDT,Height, 127, kg, 12/05/21 17:38:00 EDT, Dry Weight Start Date: 04/20/22 Status: Ordered Lidoderm 5% film 1 patch, Topically, Daily, # 30 patch, 11 Refills, Maintenance, 03/19/22 21:12:00 EDT, [facility] [id number], Partial fill upon patient request if the [...] day Start Date: 05/07/22 Status: Ordered Methadone Tablet 100 mg, Tablet, By Mouth, 05/08/22 9:00:00 EDT Start Date: 05/08/22 Stop Date: 05/08/22 Status: Completed multivitamin with minerals Calcium and Magnesium oral tablet 1 tablet, By Mouth, Daily, # 30 tablet, 11 Refills, Maintenance, 12/15/21 6:32:00 EDT, Tablet, [facility], [facility] [id number], 1 tablet By Mouth Daily, 173, cm, 12/05/21 17:38:00 EDT,Height, 127, kg, 12/05/21 17:38:00 EDT, Dry Weight Start Date: 12/15/21 Status: Ordered Narcan 4 mg/0.1 mL nasal spray See Instructions, 4 mg Once may repeat every 2 to 3 minutes until patient responds, # 2 each, 3 Refills, Soft Stop, 03/05/22 10:07:00 EDT, [facility], [facility] [id number], 173, cm, 12/05/21 17:38:00 EDT, Height, 127, kg, 12/05/21 17:38... Start Date: 03/05/22 Status: Ordered Nicotine 2 mg gum 1 each = 2 mg, Chew, Every 2 hours, PRN as needed for smoking cessation, for 4 week(s), # 160 each,11 Refills, Acute 09/11/22 12:53:00 EST, 10/10/21 12:53:00 EST, Gum, [facility] [id number], Partial fill upon patient request... Start Date: 10/10/21 Stop Date: 09/11/22 Status: Ordered ondansetron 4 mg oral tablet, disintegrating 1 tablet = 4 mg, By Mouth, Every 8 hours, PRN as needed for nausea/vomiting, # 12 tablet, 11 Refills, Maintenance, 08/21/21 13:33:00 EST, DIS Tablet, [facility], [facility] [id number], Partial fill upon patient request if the [...] Refills, Maintenance, 12/02/21 16:55:00 EDT, REC Powder, [facility], [facility] [id number], 17 Gm By Mouth 2 times a day,x30 days,PRN:Constip... Start Date: 12/02/21 Stop Date: 04/01/22 Status: Ordered rOPINIRole 0.5 mg oral tablet 1 tablet = 0.5 mg, By Mouth, Daily at bedtime, 1 to 3 hours before bedtime, # 30 tablet, 11 Refills, Maintenance, 08/21/21 13:32:00 EST, Tablet, [facility] [id number], Partial fill upon patient request if the prescription is f... Start Date: 08/21/21 Status: Ordered sildenafil 100 mg oral tablet 1 tablet = 100 mg, By Mouth, Daily, 1 hour before sexual activity, # 20 tablet, 11 Refills, Maintenance, 04/20/22 9:24:00 EDT, Tablet, [facility] [id number], disreguard last script for 0.5 tab, 173, cm, 12/05/21 17:38:00 EDT,... Start Date: 04/20/22 Status: Ordered varenicline 1mg tablet 1 tablet = 1 mg, By Mouth, Daily, 0.5 tab daily x 3 days then 0.5 tab BID x 3 days then 1 tab BID, # 30 tablet, 4 Refills, Maintenance, 04/01/22 16:45:00 EDT, Tablet, [facility] [id number], Partial fill upon patient request if... Start Date: 04/01/22 Status: Ordered Vitamin D2 50,000 intl units (1.25 mg) oral capsule 1 capsule, By Mouth, Every week, # 5 capsule, 1 Refills, Maintenance, 05/01/22 12:04:00 EDT, [facility], 173, cm, 12/05/21 17:38:00 EDT, Height, 127, kg, 12/05/21 17:38:00 EDT, Dry Weight Start Date: 05/01/22 Status: Ordered Problem List Condition Effective Dates Status Health Status Inform ant Latex allergy(Confirmed) Active Allergy to shellfish(Confirmed) Active Stroke -2021(Confirmed) 09/2021 Active Chronic active hepatitis C - genotype 1a - steatohepatitis/splenomegally(Confirme d) Active Constipation(Confirmed) Active 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 Diastolic dysfunction(Confirmed) 1 09/27/21 Active 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 Impaired LV relaxation Vital Signs Most recent to oldest [Reference Range]: 1 2 3 Height 174 cm (05/08/22 10:59 AM) 174 cm (05/06/22 10:41 PM) Weight 102.1 kg (05/08/22 2:00 AM) 102.1 kg (05/08/22 2:00 AM) 99.7 kg (05/06/22 10:41 PM) Oxygen Saturation [94-100 %] 99 % (05/08/22 10:59 AM) 97 % (05/08/22 6:00 AM) 95 % (05/08/22 5:00 AM) Pulse Rate [55-90 bpm] 59 bpm (05/08/22 10:59 AM) 60 bpm (05/06/22 11:00 PM) 60 bpm (05/06/22 10:41 PM) Body Mass Index [18.5-24.99] 32.93 *>HHI* (05/06/22 10:41 PM) Blood Pressure [90-138/55-84 mm Hg] 148/94mm Hg *H* (05/08/22 12:47 PM) 148/94mm Hg *H* (05/08/22 10:59 AM) 145/91mm Hg *H* (05/08/22 6:00 AM) Respiratory Rate [16-30 br/min] 18 br/min (05/08/22 10:59 AM) 15 br/min *L* (05/08/22 10:16 AM) 20 br/min (05/08/22 9:13 AM) Temperature [96.8-100.4 DegF] 97.7 DegF (05/08/22 10:59 AM) 98.2 DegF (05/08/22 4:00 AM) 97.5 DegF (05/08/22 12:00 AM) Mode of Delivery (Oxygen) Room air (05/08/22 10:59 AM) Room air (05/08/22 6:00 AM) Room air (05/08/22 5:00 AM) Blood pressure sites Arm, right (05/08/22 10:59 AM) Arm, right (05/08/22 6:00 AM) Arm, right (05/08/22 5:00 AM) Temperature Route Oral (05/08/22 10:59 AM) Oral (05/08/22 4:00 AM) Oral (05/08/22 12:00 AM) Dry Weight 99.7 kg (05/06/22 10:41 PM) Weight Obtained Via Bed scale (05/08/22 2:00 AM) Bed scale (05/08/22 2:00 AM) Bed scale (05/06/22 10:41 PM) Dry Weight Obtained Via Bed scale (05/06/22 10:41 PM) Social History Social History Type Response Smoking Status 10 or more cigarette s (1/2 pack or more)/day in last 30 days entered on: 12/05/21 Sex Care Team Personnel Name: Namrata Prieto MD Address: [address] [place] [address], -[facility] [place], [place] [address]
--- OUTSIDE RECORDS SUMMARY | 2023-07-12 20:12 | XMS_ITS | Continuity of Care Document ---
Author Name Unknown Organization [facility] y Address [address] [place] [address]- Care Team Providers Care Sewer Repairer Name Role Phone Long BOLT SAWYER, Giovanna Bernard Primary Care Physician Encounter [facility] Date(s): 11/30/19 - 01/20/20 [facility] [address] [place] [address]- Attending Physician: Isidoro Neely MD Admitting Physician: [...] 11/28/19 9:43:00 EDT, Route to Pharmacy Electronically, [facility] [place], [place] -, 172, cm, 09/26/19 8:57:00 EST, Height, 66.3, kg, 09/11/19 13:26:00 EST,... Start Date: 11/28/19 Stop Date: 05/26/20 Status: Ordered atovaquone 750 mg/5 mL oral suspension 10 mL = 1,500 mg, By Mouth, Daily, for 60 days, # 600 mL, 5 Refills, Acute 11/22/20 9:44:00 EDT, 11/28/19 9:44:00 EDT, Suspension, [facility] [place], [place] -, Pls cancel bactrim prescription. Atovaquone to replace bactrim, 172, cm, 09/26/19 8... Start Date: 11/28/19 Stop Date: 11/22/20 Status: Ordered Biktarvy oral tablet 1 tablet, By Mouth, Daily, # 30 tablet, 5 Refills, Maintenance, 08/24/19 9:40:00 EST, Tablet, [place], [place] -, 1 tablet By Mouth Daily,x30 [...] 12/29/19 16:19:00 EDT, Route to Pharmacy Electronically, [place], [place] -, 171, cm, 12/29/19 15:28:00 EDT, Hei... Start Date: 12/29/19 Status: Ordered docusate sodium 100 mg oral capsule 100 mg, 1, capsule, By Mouth, 2 times a day, PRN, # 60 capsule, Refills 0, Tot. Refills 0, Maintenance, for constipation, 09/26/19 12:05:00 EST, Route to Pharmacy Electronically, [place], [place] -, 172, cm, 09/26/19 8:57:00 EST, Heig... Start Date: 09/26/19 Status: Ordered gabapentin 100 mg oral capsule 200 mg, 2, capsule, By Mouth, 3 times a day, # 180 capsule, Refills 3, Tot. Refills 3, Maintenance,11/28/19 9:44:00 EDT, Route to Pharmacy Electronically, [place], [place] -, 172, cm, 09/26/19 8:57:00 EST, Height, 66.3, kg, 09/11/19... Start Date: 11/28/19 Stop Date: 03/27/20 Status: Ordered hydrocortisone 0.5% topical cream See Instructions, apply in a thin film to the hands and rub in gently 3 times a day for 5 days, # 28 Gm, 0 Refills, Acute 12/20/20 12:12:00 EDT, 12/21/19 11:57:00 EDT, [place], [place] -, apply in a thin film to the hands and rub in g... Start Date: 12/21/19 Stop Date: 12/20/20 Status: Ordered ketoconazole 2% topical shampoo 1 application, Topically, Daily, try daily for 5 days as a shampoo, # 120 mL, 3 Refills, Soft Stop,12/21/19 11:58:00 EDT, Shampoo, [facility], 1 application Topically Daily,Instr:try daily for 5 days as a shampoo, 172, cm, 01... Start Date: 12/21/19 Status: Ordered lithium 300 mg oral capsule 2 capsule = 600 mg, By Mouth, Daily at bedtime, # 60 capsule, 3 Refills, Maintenance, 11/28/19 9:41:00 EDT, [facility], 172, cm, 09/26/19 8:57:00 EST, Height, 66.3, [...] tablet, 5 Refills, Maintenance, 11/28/19 9:41:00EDT, Tablet, [facility], 172, cm, 09/26/19 8:57:00 EST, Height, 66.3, kg, 09/11/19 13:26:00 EST, Dry Weight Start Date: 11/28/19 Stop Date: 05/26/20 Status: Ordered multivitamin with minerals Calcium and Magnesium oral tablet 1 tablet, By Mouth, Daily, # 30 tablet, 5 Refills, Maintenance, 09/26/19 12:05:00 EST, Tablet, [place], [place] -, 1 tablet By Mouth Daily,x30 days, 172, cm, 09/26/19 8:57:00 EST, Height, 66.3, kg, 09/11/19 13:26:00 EST, Dry Weight Start Date: 09/26/19 Stop Date: 03/24/20 Status: Ordered Narcan 4 mg/0.1 mL nasal spray See Instructions, 4 mg Once may repeat every 2 to 3 minutes until patient responds, # 2 each, 1 Refills, Soft Stop, 08/24/19 9:41:00 EST, [place], [place] -, MAMADOU García to pick up operator for Pt., 170, cm, 08/24/19 9:21:00 [...] Refills, Maintenance, 11/28/19 9:42:00 EDT, REC Powder, [place], [place] -, 17 Gm By Mouth 2 times a day,x30 days,PRN:Constipation,Instr:... Start Date: 11/28/19 Stop Date: 03/27/20 Status: Ordered triamcinolone 0.1% topical cream 1 application, Topically, 3 times a day, for 14 days, # 60 Gm, 1 Refills, Acute 02/01/20 14:58:00 EDT, 01/04/20 14:58:00 EDT, Cream, [facility] - [place], [place] -, 1 application Topically 3 times [...]
--- OUTSIDE RECORDS SUMMARY | 2023-07-12 20:12 | XMS_ITS | Continuity of Care Document ---
Author Name Unknown Organization [facility] y Address [address] [place] [address]- Care Team Providers Care Solid State Tester Name Role Phone Conner QUEEN, Namrata Agarwal Primary Care Physician [phone] Encounter [facility] [place] [place] Date(s): 09/02/22 - 11/14/22 [facility] [address] [place] [address]- Attending Physician: Isidoro Neely MD Admitting Physician: [...] 8:46:00 EST, Powder, Route to Pharmacy Electronically, [id number], [facility] - Spr... Start Date: 07/20/22 Stop Date: 07/15/23 Status: Ordered Albuterol (Eqv-ProAir HFA) 90 mcg/inh inhalation aerosol 2 puffs, Inhalation, Every 6 hours, # 8.5 Gm, 11 Refills, 08/25/21 12:34:00 EST, [facility] [id number], 25, 2 puffs Inhalation Every 6 hours, 173, cm, 08/25/21 12:31:00 EST, Height, 84, kg, 04/19/21 2:36:00 EDT, Dry Weight Start Date: 08/25/21 Status: Ordered amLODIPine 10 mg oral tablet 10 mg, 1, tablet, By Mouth, Daily, # 30 tablet, Refills 11, Tot. Refills 11, Maintenance, 07/20/22 8:43:00 EST, Route to Pharmacy Electronically, [facility] [id number], 173, cm, 05/10/22 20:46:00 EDT, Height, 95.5, kg, ... Start Date: 07/20/22 Status: Ordered Asperflex 4% topical film 1 patch, Topically, Daily, for 30 days, # 30 patch, 11 Refills, Acute 03/12/23 14:41:00 EDT, 03/17/22 14:41:00 EDT, [facility] [id number], Partial fill upon patient request if the prescription is for a schedule II opioid drug.... Start Date: 03/17/22 Stop Date: 03/12/23 Status: Ordered aspirin 81 mg oral tablet, chewable 81 mg, 1, tablet, By Mouth, Daily, # 30 tablet, Refills 11, Tot. Refills 11, Maintenance, 07/20/22 8:43:00 EST, Route to Pharmacy Electronically, [facility] [id number], Partial fill upon patient request if the prescription is... Start Date: 07/20/22 Stop Date: 11/12/23 Status: Ordered atorvastatin 80 mg oral tablet 1 tablet = 80 mg, By Mouth, Daily, # 30 tablet, 11 Refills, Maintenance, 07/20/22 8:43:00 EST, Tablet, [facility] [id number], Partial fill upon patient request if the prescription is for a schedule II opioid drug., 173, cm, 09... Start Date: 07/20/22 Status: Ordered Biktarvy oral tablet 1 tablet, By Mouth, Daily, # 30 tablet, 5 Refills, Maintenance, 07/20/22 8:36:00 EST, [facility] [id number], 30, 1 tablet By Mouth Daily, 173, [...] Refills, Soft Stop, 03/05/22 10:37:00 EDT, [facility] [id number], Partial fill upon patient request if the [...] 11 Refills, Maintenance, 03/07/21 6:50:00 EDT, [facility] [id number], use sparingly on face, use on all other affected areas, 174, cm, 01/13/21... Start Date: 03/07/21 Status: Ordered Incruse Ellipta 62.5 mcg/inh inhalation powder See Instructions, INHALE 1 PUFF BY MOUTH INTO THE lungs EVERY 24 HOURS. doses should be taken AT least 24 HOURS APART, # 30 Unknown, 5 Refills, Maintenance, 09/02/22 20:23:00 EST, [facility], 173, cm, 08/12/22 0:40:00 EST, Height, 93.18, kg, 0... Start Date: 09/02/22 Status: Ordered ketoconazole 2% topical cream 1 application, Topically, Daily, # 30 Gm, 11 Refills, Maintenance, 04/20/22 9:23:00 EDT, [facility] [id number], 1 application Topically Daily, 173, cm, 12/05/21 17:38:00 EDT,Height, 127, kg, 12/05/21 17:38:00 EDT, Dry Weight Start Date: 04/20/22 Status: Ordered Lidoderm 5% film 1 patch, Topically, Daily, # 30 patch, 11 Refills, Maintenance, 03/19/22 21:12:00 EDT, [place], [place] - [id number], Partial fill upon patient request if the [...] 11 Refills, Maintenance, 07/20/22 8:43:00 EST, Tablet, [place], [place] - [id number], 1 tablet By Mouth Daily, 173, cm, 05/10/22 20:46:00 EDT,Height, 95.5, kg, 05/10/22 20:46:00 EDT, Dry Weight Start Date: 07/20/22 Status: Ordered Narcan 4 mg/0.1 mL nasal spray See Instructions, 4 mg Once may repeat every 2 to 3 minutes until patient responds, # 2 each, 3 Refills, Soft Stop, 03/05/22 10:07:00 EDT, [facility] [id number], 173, cm, 12/05/21 17:38:00 EDT, Height, 127, kg, 12/05/21 17:38... Start Date: 03/05/22 Status: Ordered ondansetron 4 mg oral tablet, disintegrating 1 tablet = 4 mg, By Mouth, Every 8 hours, PRN as needed for nausea/vomiting, # 12 tablet, 11 Refills, Maintenance, 08/21/21 13:33:00 EST, DIS Tablet, [facility] [id number], Partial fill upon patient request if the [...] Refills, Soft Stop, 10/27/22 12:34:00 EST, Lotion, [facility] [id number], Partial fill upon patient request if the prescription... Start Date: 10/27/22 Status: Ordered polyethylene glycol 3350 oral powder for reconstitution = 17 Gm, By Mouth, 2 times a day, PRN Constipation, dissolve in water before taking, # 527 Gm, 3 Refills, Maintenance, 12/02/21 16:55:00 EDT, REC Powder, [facility] [id number], 17 Gm By Mouth 2 times a day,x30 days,PRN:Constip... Start Date: 12/02/21 Stop Date: 04/01/22 Status: Ordered rOPINIRole 0.5 mg oral tablet 1 tablet = 0.5 mg, By Mouth, Daily at bedtime, 1 to 3 hours before bedtime, # 30 tablet, 11 Refills, Maintenance, 07/20/22 8:43:00 EST, Tablet, [facility] [id number], Partialfill upon patient request if the prescription is fo... Start Date: 07/20/22 Status: Ordered sildenafil 100 mg oral tablet 1 tablet = 100 mg, By Mouth, Daily, 1 hour before sexual activity, # 20 tablet, 11 Refills, Maintenance, 04/20/22 9:24:00 EDT, Tablet, [facility] [id number], disreguard last script for 0.5 tab, 173, cm, 12/05/21 17:38:00 EDT,... Start Date: 04/20/22 Status: Ordered varenicline 1mg tablet 1 tablet = 1 mg, By Mouth, Daily, 0.5 tab daily x 3 days then 0.5 tab BID x 3 days then 1 tab BID, # 30 tablet, 4 Refills, Maintenance, 09/04/22 15:20:00 EST, Tablet, [facility] [id number], Partial fill upon patient request if... Start Date: 09/04/22 Status: Ordered Ventolin HFA 108 mcg/inh inhalation aerosol with adapter 2 puffs, Inhalation, 4 times a day, PRN for wheezing, # 1 each, 11 Refills, Maintenance, 07/20/22 8:44:00 EST, Aerosol, [facility] [id number], Partial fill upon patient request if the [...] 06/04/22 17:32:00 EDT, Capsule, [facility] - [place], [place] - [id number], D/c vitamin high dosed, 173, cm, 05/10/22 [...] - 01/2019 Confirmed Active Depression - [facility], [facility] Confirmed Active Diastolic dysfunction 1 Confirmed [...] Team Personnel Name: Jadiel Watson RN Position: [facility] ED RN W/OE and Tasks Member Role: Primary Care Nurse Name: Dede Mccloud RN Position: [facility] RN Member Role: Primary Care Nurse Name: Judy Gonzales RN Position: [facility] RN Member Role: Primary Care Nurse Name: Enma Manriquez RN Position: [facility] RN Member Role: Primary Care Nurse Name: Zuhair Lopez RN Position: [facility] RN Member Role: Primary Care Nurse Name: Cathryn Allen RN Position: [facility] RN Member Role: Primary Care Nurse Name: Edie Bob RN Position: [facility] RN Member Role: Primary Care Nurse Name: Lisbet Gardiner RN Position: [facility] RN Member Role: Primary Care Nurse Name: Namrata Prieto MD Position: [facility] Primary Care Physician Member Role: PCP Address: Address: [address] [place] [address], [place] [address]- Name: Carolina Valero RN Position: [facility] RN Member Role: Primary Care Nurse Name: Nishi San RN Position: S RN Member Role: Primary Care Nurse Name: Micky Boyd RN Position: S RN Member Role: Primary Care Nurse Name: Lauri Combs NP Position: Reference Physician Member Role: Primary Care Nurse Address: Address: [address] [place] [address] [address] Clinical [facility] [place] [address]- Care Team Related Persons Name: LUIS SAN Address: [place] [address] Name: BROOKE OWEN Address: home [address] [address] Name: KARYN OWEN Address: home [address] [place] [address] Name: DOMINGO LEONE Address: home [address] [place] [address]
--- OUTSIDE RECORDS SUMMARY | 2023-07-12 20:12 | XMS_ITS | Continuity of Care Document ---
Author Name Unknown Organization [facility] Address [address] [place] [address]- Care Team Providers Care Managing Director Atlas Name Role Phone Conner QUEEN, Namrata Agarwal Primary Care Physician [facility] Date[facility]s): 08/14/21 - 09/13/21 [facility] [address] [place] [address]- Allergies, Adverse Reactions, Alerts Substance Reaction Severity [...] 13:14:00 EST, Powder, Route to Pharmacy Electronically, [id number], [facility] [place]... Start Date: 08/21/21 Stop Date: 01/18/22 Status: Ordered Albuterol (Eqv-ProAir HFA) 90 mcg/inh inhalation aerosol 2 puffs, Inhalation, Every 6 hours, # 8.5 Gm, 11 Refills, 08/25/21 12:34:00 EST, [facility] - [place], [place] - [id number], 25, 2 puffs Inhalation Every 6 hours, 173, cm, 08/25/21 12:31:00 EST, Height, 84, kg, 04/19/21 2:36:00 EDT, Dry Weight Start Date: 08/25/21 Status: Ordered amLODIPine 10 mg oral tablet 10 mg, 1, tablet, By Mouth, Daily, # 30 tablet, Refills 11, Tot. Refills 11, Maintenance, 08/27/21 16:46:00 EST, Route to Pharmacy Electronically, [place], [place] - [id number], 173,cm, 08/25/21 12:31:00 EST, Height, 84, kg, 04/19/21... Start Date: 08/27/21 Status: Ordered atovaquone 750 mg/5 mL oral suspension 10 mL = 1,500 mg, By Mouth, Daily, for 60 days, # 600 mL, 11 Refills, Acute 02/25/23 6:50:00 EDT, 03/07/21 6:50:00 EDT, Suspension, [place], [place] - [id number], Pls cancel bactrim prescription. Atovaquone to replace bactrim, 174, cm... Start Date: 03/07/21 Stop Date: 02/25/23 Status: Ordered Biktarvy oral tablet 1 tablet, By Mouth, Daily, # 30 tablet, 11 Refills, [facility], 30, TAKE ONE TABLET BY [...] FOR CONSTIPATION, # 60 each, 5 Refills, [facility], 173, cm, 04/21/21 8:17:00 EDT, Height, 84, kg, 04/19/21 2:36:00 EDT, Dry Weight Start Date: 06/02/21 Status: Ordered hydrocortisone 0.5% topical cream See Instructions, use sparingly on face, use on all other affected areas, # 28 Gm, 11 Refills, Maintenance, 03/07/21 6:50:00 EDT, [place], [place] - [id number], use sparingly on face, use on all other affected areas, 174, cm, 01/13/21... Start Date: 03/07/21 Status: Ordered Incruse Ellipta 62.5 mcg/inh inhalation powder 1 puffs, Inhalation, Every 24 hours, doses should be taken AT least 24 HOURS APART, # 30 Unknown, 11 Refills, 08/25/21 12:34:00 EST, [place], [place] - [id number], 173, cm, 08/25/21 12:31:00 EST, Height, 84, kg, 04/19/21 2:36:00 EDT,... Start Date: 08/25/21 Status: Ordered ketoconazole 2% topical cream See Instructions, APPLY TO THE AFFECTED AREA TOPICALLY 2 (two) times a day. USE ON THE FACE, # 60 Gm, 11 Refills, [facility], 30, APPLY TO THE AFFECTED [...] 11 Refills, Maintenance, 03/07/21 6:51:00 EDT, Tablet, [place], [place] - [id number], 1 tablet By Mouth Daily, 174, cm, 01/13/21 8:20:00 EDT, Height, 93, kg, 01/08/21 18:17:00 EDT, Dry Weight Start Date: 03/07/21 Status: Ordered Narcan 4 mg/0.1 mL nasal spray See Instructions, 4 mg Once may repeat every 2 to 3 minutes until patient responds, # 2 each, 1 Refills, Soft Stop, 08/24/19 9:41:00 EST, [facility], MAMADOU García to sampler pickup for Pt., 170, cm, 08/24/19 9:21:00 EST, Height, 66.36,... Start Date: 08/24/19 Status: Ordered ondansetron 4 mg oral tablet, disintegrating 1 tablet = 4 mg, By Mouth, Every 8 hours, PRN as needed for nausea/vomiting, # 12 tablet, 11 Refills, Maintenance, 08/21/21 13:33:00 EST, DIS Tablet, [facility] [id number], Partial fill upon patient request if the [...] Refills, Maintenance, 11/28/19 9:42:00 EDT, REC Powder, [facility], 17 Gm By Mouth 2 times a day,x30 days,PRN:Constipation,Instr:... Start Date: 11/28/19 Stop Date: 03/27/20 Status: Ordered polyethylene glycol 3350 oral powder for reconstitution See Instructions, DISSOLVE 17grams powder IN WATER BEFORE drinking 2 (two) times a day NEEDED FOR CONSTIPATION, # 510 Gm, 11 Refills, [facility], 30, DISSOLVE 17grams powder IN WATER BEFORE drinking 2 (two) times a day NEEDED FOR CONSTIPATI... Start Date: 09/03/21 Status: Ordered rOPINIRole 0.5 mg oral tablet 1 tablet = 0.5 mg, By Mouth, Daily at bedtime, 1 to 3 hours before bedtime, # 30 tablet, 11 Refills, Maintenance, 08/21/21 13:32:00 EST, Tablet, [facility] [id number], Partial fill upon patient request if the prescription is f... Start Date: 08/21/21 Status: Ordered sildenafil 100 mg oral tablet 1 tablet = 100 mg, By Mouth, Daily, 1 hour before sexual activity, # 20 tablet, 11 Refills, Maintenance, 03/07/21 6:49:00 EDT, Tablet, [place], [place] - [id number], Partial fill upon patient request if the prescription is for a sched... 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
--- OUTSIDE RECORDS SUMMARY | 2023-07-12 20:12 | XMS_ITS | Continuity of Care Document ---
Author Name Unknown Organization [facility] Address Unknown Care Team Providers Care Field Professional Name Role Phone Conner QUEEN, Namrata Agarwal Primary Care Physician Encounter [facility] Date(s): 11/11/21 - 12/11/21 [facility] Attending Physician: Angeles De La Rosa Admitting Physician: Angeles De La Rosa Referring Physician: Angeles De La Rosa Allergies, Adverse Reactions, Alerts Substance Reaction Severity [...] 13:14:00 EST, Powder, Route to Pharmacy Electronically, [id number], [facility] Start Date: 08/21/21 Stop Date: 01/18/22 Status: Ordered Albuterol (Eqv-ProAir HFA) 90 mcg/inh inhalation aerosol 2 puffs, Inhalation, Every 6 hours, # 8.5 Gm, 11 Refills, 08/25/21 12:34:00 EST, [facility] [place], [place] - [id number], 25, 2 puffs Inhalation Every 6 hours, 173, cm, 08/25/21 12:31:00 EST, Height, 84, kg, 04/19/21 2:36:00 EDT, Dry Weight Start Date: 08/25/21 Status: Ordered amLODIPine 10 mg oral tablet 10 mg, 1, tablet, By Mouth, Daily, # 30 tablet, Refills 11, Tot. Refills 11, Maintenance, 08/27/21 16:46:00 EST, Route to Pharmacy Electronically, [facility] [id number], 173,cm, 08/25/21 12:31:00 EST, Height, 84, kg, 04/19/21... Start Date: 08/27/21 Status: Ordered aspirin 81 mg oral tablet, chewable 81 mg, 1, tablet, By Mouth, Daily, # 120 tablet, Refills 3, Tot. Refills 3, Maintenance, 10/02/21 11:47:00 EST, Route to Pharmacy Electronically, [facility] [id number], Partial fill upon patient request if the prescription is... Start Date: 10/02/21 Stop Date: 01/25/23 Status: Ordered atorvastatin 80 mg oral tablet 1 tablet = 80 mg, By Mouth, Daily, # 30 tablet, 11 Refills, Maintenance, 11/07/21 14:34:00 EST, Tablet, [facility] [id number], Partial fill upon patient request if the prescription is for a schedule II opioid drug., 170, cm, 0... Start Date: 11/07/21 Status: Ordered atovaquone 750 mg/5 mL oral suspension 10 mL = 1,500 mg, By Mouth, Daily, for 60 days, # 600 mL, 11 Refills, Acute 10/28/23 14:35:00 EST, 11/07/21 14:35:00 EST, Suspension, [facility] [id number], Pls cancel bactrim prescription. Atovaquone to replace [...] 12/02/21 16:54:00 EDT, Route to Pharmacy Electronically, [facility] - [place], [place] - [id number], Partial fill upon pilar... Start Date: 12/02/21 [...] FOR CONSTIPATION, # 60 each, 2 Refills, [facility], 170, cm, 10/10/21 13:45:00 EST, Height, 110, kg, 09/29/21 21:14:00 EST, Dry Weight Start Date: 12/01/21 Status: Ordered hydrocortisone 0.5% topical cream See Instructions, use sparingly on face, use on all other affected areas, # 28 Gm, 11 Refills, Maintenance, 03/07/21 6:50:00 EDT, [facility] [id number], use sparingly on face, use on all other affected areas, 174, cm, 01/13/21... Start Date: 03/07/21 Status: Ordered Incruse Ellipta 62.5 mcg/inh inhalation powder 1 puffs, Inhalation, Every 24 hours, doses should be taken AT least 24 HOURS APART, # 30 Unknown, 11 Refills, 08/25/21 12:34:00 EST, [facility] [id number], 173, cm, 08/25/21 12:31:00 EST, Height, 84, kg, 04/19/21 2:36:00 EDT,... Start Date: 08/25/21 Status: Ordered ketoconazole 2% topical cream 1 application, Topically, Daily, # 30 Gm, 11 Refills, Maintenance, 12/02/21 16:56:00 EDT, [facility] [id number], 1 application Topically Daily, 170, cm, 10/10/21 [...] 0 Refills, Maintenance, 11/11/21 17:22:00 EST, Tablet, [facility] [id number], 170, cm, 10/10/21 13:45... 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 Start Date: 08/24/19 Status: Ordered Nicotine 2 mg gum 1 each = 2 mg, Chew, Every 2 hours, PRN as needed for smoking cessation, for 4 week(s), # 160 each,11 Refills, Acute 09/11/22 12:53:00 EST, 10/10/21 12:53:00 EST, Gum, [facility] [id number], Partial fill upon patient request... Start Date: [...] Refills, Maintenance, 08/21/21 13:33:00 EST, DIS Tablet, [facility] [id number], Partial fill upon patient request if the [...] 10/02/21 11:47:00 EST, Route to Pharmacy Electronically, [facility] [id number], Partial fill upon patient request if the prescription is f... Start Date: 10/02/21 Stop Date: 12/31/21 Status: Ordered polyethylene glycol 3350 oral powder for reconstitution See Instructions, DISSOLVE 17grams powder IN WATER BEFORE drinking 2 (two) times a day NEEDED FOR CONSTIPATION, # 510 Gm, 11 Refills, [facility], 30, DISSOLVE 17grams powder IN WATER BEFORE drinking 2 (two) times a day NEEDED FOR CONSTIPATI... Start Date: 09/03/21 Status: Ordered polyethylene glycol 3350 oral powder for reconstitution = 17 Gm, By Mouth, 2 times a day, PRN Constipation, dissolve in water before taking, # 527 Gm, 3 Refills, Maintenance, 12/02/21 16:55:00 EDT, REC Powder, [facility] [id number], 17 Gm By Mouth 2 times a day,x30 days,PRN:Constip... Start Date: 12/02/21 Stop Date: 04/01/22 Status: Ordered rOPINIRole 0.5 mg oral tablet 1 tablet = 0.5 mg, By Mouth, Daily at bedtime, 1 to 3 hours before bedtime, # 30 tablet, 11 Refills, Maintenance, 08/21/21 13:32:00 EST, Tablet, [place], [place] - [id number], Partial fill upon patient request if the prescription is f... Start Date: 08/21/21 Status: Ordered Senna 8.6 mg oral tablet 1 or 2 tablets, By Mouth, Daily at bedtime, PRN, # 60 tablet, Refills 5, Tot. Refills 5, Maintenance, Constipation, 10/10/21 14:43:00 EST, Route to Pharmacy Electronically, [facility], [place] - [id number] Tablet, Partial fill upon patie... Start Date: 10/10/21 Status: Ordered sildenafil 100 mg oral tablet 1 tablet = 100 mg, By Mouth, Daily, 1 hour before sexual activity, # 20 tablet, 11 Refills, Maintenance, 03/07/21 6:49:00 EDT, Tablet, [facility] [id number], Partial fill upon patient request if the prescription is for a sched... Start Date: 03/07/21 Status: Ordered varenicline 1mg tablet 1 tablet = 1 mg, By Mouth, Daily, 0.5 tab daily x 3 days then 0.5 tab BID x 3 days then 1 tab BID, # 30 tablet, 4 Refills, Maintenance, 11/13/21 15:15:00 EST, Tablet, [facility], [place] - [id number], Partial fill upon patient request if... 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
--- OUTSIDE RECORDS SUMMARY | 2023-07-12 20:12 | XMS_ITS | Continuity of Care Document ---
Author Name Unknown Organization [facility] Address [address] [place] [address]- Care Team Providers Care Glass Etcher Helper Name Role Phone Calvin WELLS, Giovanna Bernard Primary Care Physician [facility] Date[facility]s): 10[facility]24[facility]19 - 11/03/19 [facility] [address] [place] [address]- [facility] Attending Physician: Angeles [...] 09/26/19 12:05:00 EST, Route to Pharmacy Electronically, [place], [place] -, 172, cm, 09/26/19 8:57:00 EST, Height, 66.3, kg, 09/11/19 13:26:00 EST... Start Date: 09/26/19 Status: Ordered atovaquone 750 mg/5 mL oral suspension 10 mL = 1,500 mg, By Mouth, Daily, for 60 days, # 600 mL, 5 Refills, Acute 08/18/20 9:40:00 EST, 08/24/19 9:40:00 EST, Suspension, [place], [place] -, Pls cancel bactrim prescription. Atovaquone to replace bactrim, 170, cm, 08/24/19 9... Start Date: 08/24/19 Stop Date: 08/18/20 Status: Ordered Biktarvy oral tablet 1 tablet, By Mouth, Daily, # 30 tablet, 5 Refills, Maintenance, 08/24/19 9:40:00 EST, Tablet, [place], [place] -, 1 tablet By Mouth Daily,x30 [...] 09/26/19 12:05:00 EST, Route to Pharmacy Electronically, [place], [place] -, 172, cm, 09/26/19 8:57:00 EST, [place]... Start Date: 09/26/19 Status: Ordered fluconazole 200 mg oral tablet 1 tablet = 200 mg, By Mouth, Daily, for 28 days, # 28 tablet, 5 Refills, Acute 02/08/20 9:42:00 EDT, 08/24/19 9:42:00 EST, Tablet, [place], [place] -, Decrease in dose., 170, cm, 08/24/19 9:21:00 EST, Height, 66.36, kg, 03/10/19 16:51... Start Date: 08/24/19 Stop Date: 02/08/20 Status: Ordered gabapentin 100 mg oral capsule 200 mg, 2, capsule, By Mouth, 3 times a day, # 180 capsule, Refills 0, Tot. Refills 0, Maintenance,10/24/19 11:24:00 EST, Route to Pharmacy Electronically, [place], [place] -, 172, cm, 09/26/19 8:57:00 EST, Height, 66.3, kg, 09/11/19... Start Date: 10/24/19 Stop Date: 11/23/19 Status: Ordered lithium 300 mg oral capsule 2 capsule = 600 mg, By Mouth, Daily at bedtime, # 60 capsule, 0 Refills, Maintenance, 10/24/19 11:23:00 EST, [place], [place] -, 172, cm, 09/26/19 8:57:00 EST, Height, 66.3, kg, 09/11/19 13:26:00 EST, Dry Weight Start Date: 10/24/19 Status: Ordered lithium 300 mg oral tablet 1 tablet = 300 mg, By Mouth, Daily, # 30 tablet, 0 Refills, Maintenance, 10/24/19 11:22:00 EST, Tablet, [place], [place] -, 172, cm, 09/26/19 8:57:00 EST, Height, 66.3, kg, 09/11/19 13:26:00 EST, Dry Weight Start Date: 10/24/19 Stop Date: 11/23/19 Status: Ordered LORazepam 0.5 mg oral tablet 1 tablet = 0.5 mg, By Mouth, 2 times a day, PRN Anxiety, # 60 tablet, 0 Refills, Maintenance, 10/24/19 11:24:00 EST, Tablet, [place], [place] -, 172, cm, 09/26/19 8:57:00 EST, [...] 0 Refills, Maintenance, 09/26/19 12:07:00 EST, Tablet, [place], [place] -, 172, cm, 09/26/19 8:57:00 EST, Height, 66.3, kg,09/11/19 13:26:00 EST, Dry Weight Start Date: 09/26/19 Status: Ordered multivitamin with minerals Calcium and Magnesium oral tablet 1 tablet, By Mouth, Daily, # 30 tablet, 5 Refills, Maintenance, 09/26/19 12:05:00 EST, Tablet, [facility] [place] -, 1 tablet By Mouth Daily,x30 days, 172, cm, 09/26/19 8:57:00 EST, Height, 66.3, kg, 09/11/19 13:26:00 EST, Dry Weight Start Date: 09/26/19 Stop Date: 03/24/20 Status: Ordered Narcan 4 mg/0.1 mL nasal spray See Instructions, 4 mg Once may repeat every 2 to 3 minutes until patient responds, # 2 each, 1 Refills, Soft Stop, 08/24/19 9:41:00 EST, [facility] - [place], [place] -, MAMADOU García to milk pickup driver [...]
--- OUTSIDE RECORDS SUMMARY | 2023-07-12 20:12 | XMS_ITS | Continuity of Care Document ---
Author Name Unknown Organization [facility] Address [address] [place] [address]- Care Team Providers Care Vice President For Instruction Name Role Phone Conner QUEEN, Namrata Agarwal Primary Care Physician [facility]20 - 05/09/20 [facility] [address] [place] [address]- [place] Allergies, Adverse Reactions, Alerts Substance Reaction Severity Status shellfish Active Latex rash Active Immunizations Given and Recorded Vaccine Date Status Refusal Reason influenza virus vaccine, inactivated 06/08/19 Give n Medications amLODIPine 5 mg oral tablet 5 mg, 1, tablet, By Mouth, Daily, # 30 tablet, Refills 5, Tot. Refills 5, Maintenance, 11/28/19 9:43:00 EDT, Route to Pharmacy Electronically, [facility] - [place], [place] -, kenan Romeo, 09/26/19 8:57:00 EST, Height, 66.3, kg, 09/11/19 13:26:00 EST,... Start Date: 11/28/19 Stop Date: 05/26/20 Status: Ordered atovaquone 750 mg/5 mL oral suspension 10 mL = 1,500 mg, By Mouth, Daily, for 60 days, # 600 mL, 5 Refills, Acute 11/22/20 9:44:00 EDT, 11/28/19 9:44:00 EDT, Suspension, [facility] - [place], [place] -, Pls cancel bactrim prescription. Atovaquone to replace bactrim, 172, cm, 09/26/19 8... Start Date: 11/28/19 Stop Date: 11/22/20 Status: Ordered Biktarvy oral tablet 1 tablet, By Mouth, Daily, for 30 days, # 30 tablet, 5 Refills, Hard Stop 08/25/20 12:37:00 EST, 02/27/20 12:37:00 EDT, Tablet, [place], [place] -, 1 tablet By Mouth Daily,x30 days, 171, cm, 02/22/20 10:16:00 EDT, Height, 59.5, kg, 04... Start Date: 02/27/20 Stop Date: 08/25/20 Status: Ordered Biktarvy oral tablet 1 tablet, By Mouth, Daily, # 30 tablet, 5 Refills, Maintenance, 08/18/20 5:43:00 EST, Tablet, [place], [place] -, 1 tablet By Mouth Daily,x30 [...] 12/29/19 16:19:00 EDT, Route to Pharmacy Electronically, [place], [place] -, 171, cm, 12/29/19 15:28:00 EDT, Hei... Start Date: 12/29/19 Status: Ordered gabapentin 100 mg oral capsule 200 mg, 2, capsule, By Mouth, 3 times a day, # 180 capsule, Refills 1, Tot. Refills 1, Maintenance,05/07/20 16:16:00 EDT, Route to Pharmacy Electronically, [place], [place] - [id number], 171, cm, 03/26/20 8:54:00 EDT, Height, 59.5, k... Start Date: 05/07/20 Stop Date: 09/04/20 Status: Ordered hydrocortisone 0.5% topical cream See Instructions, apply in a thin film to the hands and rub in gently 3 times a day for 5 days, # 28 Gm, 1 Refills, Maintenance, 02/27/20 12:35:00 EDT, [place], [place] -, apply in athin film to the hands and rub in gently 3 times a... Start Date: 02/27/20 Status: Ordered ketoconazole 2% topical shampoo 1 application, Topically, Daily, try daily for 5 days as a shampoo, # 120 mL, 3 Refills, Soft Stop,12/21/19 11:58:00 EDT, Shampoo, [place], [place] -, 1 application Topically Daily,Instr:try daily for 5 days as a shampoo, 172, cm, 01... Start Date: 12/21/19 Status: Ordered lithium 300 mg oral capsule 2 capsule = 600 mg, By Mouth, 2 times a day, # 120 capsule, 1 Refills, Maintenance, 05/07/20 16:16:00 EDT, [place], [place] - [id number], Increase in dose per Psychiatry, 171, cm, 03/26/20 8:54:00 EDT, Height, 59.5, kg, 12/29/19 15:28... Start Date: 05/07/20 Status: Ordered LORazepam 0.5 mg oral tablet 1 tablet = 0.5 mg, By Mouth, 2 times a day, PRN Anxiety, # 60 tablet, 1 Refills, Maintenance, 05/07/20 16:16:00 EDT, Tablet, [place], [place] - [id number], 171, cm, 03/26/20 8:54:00 EDT, Height, 59.5, [...] tablet, 5 Refills, Maintenance, 11/28/19 9:41:00EDT, Tablet, [place], [place] -, 172, cm, 09/26/19 8:57:00 EST, Height, 66.3, kg, 09/11/19 13:26:00 EST, Dry Weight Start Date: 11/28/19 Stop Date: 05/26/20 Status: Ordered multivitamin with minerals Calcium and Magnesium oral tablet 1 tablet, By Mouth, Daily, # 30 tablet, 5 Refills, Maintenance, 09/26/19 12:05:00 EST, Tablet, [place], [place] -, 1 tablet By Mouth Daily,x30 days, 172, cm, 09/26/19 8:57:00 EST, Height, 66.3, kg, 09/11/19 13:26:00 EST, Dry Weight Start Date: 09/26/19 Stop Date: 03/24/20 Status: Ordered Narcan 4 mg/0.1 mL nasal spray See Instructions, 4 mg Once may repeat every 2 to 3 minutes until patient responds, # 2 each, 1 Refills, Soft Stop, 08/24/19 9:41:00 EST, [place], [place] -, MAMADOU García to garbage pick up 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 Start Date: 11/28/19 Stop Date: 03/27/20 Status: Ordered SEROquel 25 mg oral tablet 25 mg, 1, tablet, By Mouth, Daily at bedtime, # 30 tablet, Refills 2, Tot. Refills 2, Maintenance, 03/26/20 9:29:00 EDT, Route to Pharmacy Electronically, [facility] - [place], [place] -, 171, cm, 03/26/20 8:54:00 EDT, [...]
--- OUTSIDE RECORDS SUMMARY | 2023-07-12 20:12 | XMS_ITS | Continuity of Care Document ---
Author Name Unknown Organization [facility] y Address [address] [place] [address]- Care Team Providers Care Gymnasium Teacher Name Role Phone Conner QUEEN, Namrata Agarwal Primary Care Physician Encounter [facility] [place] Date(s): 08/05/21 - 09/11/21 [facility] [address] [place] [id number] Attending Physician: Isidoro Neely MD Admitting [...] 13:14:00 EST, Powder, Route to Pharmacy Electronically, [id number], [facility] - [facility]... Start Date: 08/21/21 Stop Date: 01/18/22 Status: Ordered Albuterol (Eqv-ProAir HFA) 90 mcg/inh inhalation aerosol 2 puffs, Inhalation, Every 6 hours, # 8.5 Gm, 11 Refills, 08/25/21 12:34:00 EST, [facility] - [place], [place] - [id number], 25, 2 puffs Inhalation Every 6 hours, 173, cm, 08/25/21 12:31:00 EST, Height, 84, kg, 04/19/21 2:36:00 EDT, Dry Weight Start Date: 08/25/21 Status: Ordered amLODIPine 10 mg oral tablet 10 mg, 1, tablet, By Mouth, Daily, # 30 tablet, Refills 11, Tot. Refills 11, Maintenance, 08/27/21 16:46:00 EST, Route to Pharmacy Electronically, [place], [place] - [id number], 173,cm, 08/25/21 12:31:00 EST, Height, 84, kg, 04/19/21... Start Date: 08/27/21 Status: Ordered atovaquone 750 mg/5 mL oral suspension 10 mL = 1,500 mg, By Mouth, Daily, for 60 days, # 600 mL, 11 Refills, Acute 02/25/23 6:50:00 EDT, 03/07/21 6:50:00 EDT, Suspension, [place], [place] - [id number], Pls cancel bactrim prescription. Atovaquone to replace bactrim, 174, cm... Start Date: 03/07/21 Stop Date: 02/25/23 Status: Ordered Biktarvy oral tablet 1 tablet, By Mouth, Daily, # 30 tablet, 11 Refills, [facility], 30, TAKE ONE TABLET BY MOUTH DAILY, [...] FOR CONSTIPATION, # 60 each, 5 Refills, [facility], 173, cm, 04/21/21 8:17:00 EDT, Height, 84, kg, 04/19/21 2:36:00 EDT, Dry Weight Start Date: 06/02/21 Status: Ordered hydrocortisone 0.5% topical cream See Instructions, use sparingly on face, use on all other affected areas, # 28 Gm, 11 Refills, Maintenance, 03/07/21 6:50:00 EDT, [facility] [id number], use sparingly on face, use on all other affected areas, 174, cm, 01/13/21... Start Date: 03/07/21 Status: Ordered Incruse Ellipta 62.5 mcg/inh inhalation powder 1 puffs, Inhalation, Every 24 hours, doses should be taken AT least 24 HOURS APART, # 30 Unknown, 11 Refills, 08/25/21 12:34:00 EST, [facility], [place] - [id number], 173, cm, 08/25/21 12:31:00 EST, Height, 84, kg, 04/19/21 2:36:00 EDT,... Start Date: 08/25/21 Status: Ordered ketoconazole 2% topical cream See Instructions, APPLY TO THE AFFECTED AREA TOPICALLY 2 (two) times a day. USE ON THE FACE, # 60 Gm, 11 Refills, [facility], 30, APPLY TO THE AFFECTED AREA [...] 11 Refills, Maintenance, 03/07/21 6:51:00 EDT, Tablet, [facility] [id number], 1 tablet By Mouth Daily, 174, cm, 01/13/21 8:20:00 EDT, Height, 93, kg, 01/08/21 18:17:00 EDT, Dry Weight Start Date: 03/07/21 Status: Ordered Narcan 4 mg/0.1 mL nasal spray See Instructions, 4 mg Once may repeat every 2 to 3 minutes until patient responds, # 2 each, 1 Refills, Soft Stop, 08/24/19 9:41:00 EST, [place], [place] -, MAMADOU García to sweet pickle maker for Pt., 170, cm, 08/24/19 9:21:00 EST, Height, 66.36,... Start Date: 08/24/19 Status: Ordered ondansetron 4 mg oral tablet, disintegrating 1 tablet = 4 mg, By Mouth, Every 8 hours, PRN as needed for nausea/vomiting, # 12 tablet, 11 Refills, Maintenance, 08/21/21 13:33:00 EST, DIS Tablet, [place], [place] - [id number], Partial fill upon patient request if the [...] Refills, Maintenance, 11/28/19 9:42:00 EDT, REC Powder, [place], [place] -, 17 Gm By Mouth 2 times a day,x30 days,PRN:Constipation,Instr:... Start Date: 11/28/19 Stop Date: 03/27/20 Status: Ordered polyethylene glycol 3350 oral powder for reconstitution See Instructions, DISSOLVE 17grams powder IN WATER BEFORE drinking 2 (two) times a day NEEDED FOR CONSTIPATION, # 510 Gm, 11 Refills, [facility], 30, DISSOLVE 17grams powder IN WATER BEFORE drinking 2 (two) times a day NEEDED FOR CONSTIPATI... Start Date: 09/03/21 Status: Ordered rOPINIRole 0.5 mg oral tablet 1 tablet = 0.5 mg, By Mouth, Daily at bedtime, 1 to 3 hours before bedtime, # 30 tablet, 11 Refills, Maintenance, 08/21/21 13:32:00 EST, Tablet, [facility] [id number], Partial fill upon patient request if the prescription is f... Start Date: 08/21/21 Status: Ordered sildenafil 100 mg oral tablet 1 tablet = 100 mg, By Mouth, Daily, 1 hour before sexual activity, # 20 tablet, 11 Refills, Maintenance, 03/07/21 6:49:00 EDT, Tablet, [facility] [id number], Partial fill upon patient request if the prescription is for a sched... 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
--- OUTSIDE RECORDS SUMMARY | 2023-07-12 20:12 | XMS_ITS | Continuity of Care Document ---
Author Name Unknown Organization [facility] Address [address] [place] [address]- Care Team Providers Care Restaurant Bartender Name Role Phone Namrata Prieto MD Primary Care Physician Encounter [facility] Date(s): 06/25/21 - 07/31/21 [facility] [address] [place], [place] [address] Attending Physician: Namrata Prieto MD [...] 6 hours, # 8.5 Gm, 0 Refills, Maintenance, 07/18/21 11:10:00 EST, [place], [place] - [id number], Partial fill upon patient request if the prescription is for a schedule II opioid drug., 2 puffs Inhalation Ev... Start Date: 07/18/21 Status: Ordered amLODIPine 10 mg oral tablet 10 mg, 1, tablet, By Mouth, Daily, # 30 tablet, Refills 5, Tot. Refills 5, Maintenance, 03/07/21 6:50:00 EDT, Route to Pharmacy Electronically, [place], [place] - [id number], 174, cm, 01/13/21 8:20:00 EDT, Height, 93, kg, 01/08/21 18:... Start Date: 03/07/21 Status: Ordered atovaquone 750 mg/5 mL oral suspension 10 mL = 1,500 mg, By Mouth, Daily, for 60 days, # 600 mL, 11 Refills, Acute 02/25/23 6:50:00 EDT, 03/07/21 6:50:00 EDT, Suspension, [facility] [id number], Pls cancel bactrim prescription. Atovaquone to replace bactrim, 174, cm... Start Date: 03/07/21 Stop Date: 02/25/23 Status: Ordered Biktarvy oral tablet 1 tablet, By Mouth, Daily, # 30 tablet, 11 Refills, [facility], 30, TAKE ONE TABLET BY MOUTH DAILY, 173, cm, 04/21/21 8:17:00 EDT, Height, 84, kg, 04/19/21 2:36:00 EDT, Dry Weight Start Date: 06/25/21 Status: Ordered Biktarvy oral tablet 1 tablet, By Mouth, Daily, # 30 tablet, 11 Refills, [facility], 30, TAKE ONE TABLET BY MOUTH DAILY, 173, cm, 04/21/21 8:17:00 EDT, Height, 84, kg, 04/19/21 2:36:00 EDT, Dry Weight Start Date: 06/25/21 Status: Ordered docusate sodium 100 mg oral capsule 1 capsule, By Mouth, 2 times a day, PRN NEEDED FOR CONSTIPATION, # 60 each, 5 Refills, [facility], 173, cm, 04/21/21 8:17:00 EDT, Height, 84, kg, 04/19/21 2:36:00 EDT, Dry Weight Start Date: 06/02/21 Status: Ordered hydrocortisone 0.5% topical cream See Instructions, use sparingly on face, use on all other affected areas, # 28 Gm, 11 Refills, Maintenance, 03/07/21 6:50:00 EDT, [place], [place] - [id number], use sparingly on face, use on all other affected areas, 174, cm, 01/13/21... Start Date: 03/07/21 Status: Ordered Incruse Ellipta 62.5 mcg/inh inhalation powder 1 each, Inhalation, Every 24 hours, doses should be taken at least 24 hours apart, # 30 each, 0 Refills, Maintenance, 07/18/21 10:49:00 EST, Powder, [place], [place] - [id number], Partial fill upon patient request if the prescription... Start Date: 07/18/21 Status: Ordered ketoconazole 2% topical cream See Instructions, APPLY TO THE AFFECTED AREA TOPICALLY 2 (two) times a day. USE ON THE FACE, # 60 Gm, 11 Refills, [facility], 30, APPLY TO THE AFFECTED AREA [...] 0 Refills, Maintenance, 07/08/20 15:34:00 EST, Tablet, [facility], 3 tablet By Mouth Daily,x12 [...] 11 Refills, Maintenance, 03/07/21 6:51:00 EDT, Tablet, [facility] [id number], 1 tablet By Mouth Daily, 174, cm, 01/13/21 8:20:00 EDT, Height, 93, kg, 01/08/21 18:17:00 EDT, Dry Weight Start Date: 03/07/21 Status: Ordered Narcan 4 mg/0.1 mL nasal spray See Instructions, 4 mg Once may repeat every 2 to 3 minutes until patient responds, # 2 each, 1 Refills, Soft Stop, 08/24/19 9:41:00 EST, [place], [place] -, MAMADOU García to milk pickup driver for Pt., 170, cm, 08/24/19 9:21:00 EST, Height, 66.36,... Start Date: 08/24/19 Status: Ordered Nicotine 2 mg gum 1 each = 2 mg, Chew, Every 2 hours, PRN as needed for smoking cessation, for 4 week(s), # 160 each,0 Refills, Acute 08/15/21 10:58:00 EST, 07/18/21 10:58:00 EST, Gum, [facility] [id number], Partial fill upon patient request i... Start Date: 07/18/21 Stop Date: 08/15/21 Status: Ordered Nicotine 7 mg/24 hour patch 1 patch, Topically, Daily, for 21 days, # 21 patch, 0 Refills, Acute 08/08/21 10:59:00 EST, 07/18/21 10:59:00 EST, Patch, [facility] [id number], Partial fill upon patient request if the prescription is for a schedule II opioid... Start Date: 07/18/21 Stop Date: 08/08/21 Status: Ordered ondansetron 4 mg oral tablet, disintegrating 1 tablet = 4 mg, By Mouth, Every 8 hours, PRN as needed for nausea/vomiting, # 12 tablet, 0 Refills, Maintenance, 12/08/20 19:19:00 EDT, DIS Tablet, [facility] [id number], Partial fill upon patient request if the [...] Refills, Maintenance, 11/28/19 9:42:00 EDT, REC Powder, [place], [place] -, 17 Gm By Mouth 2 [...] Maintenance, 03/07/21 6:49:00 EDT, Tablet, [facility] [id number], Partial fill upon patient request if the prescription is for a sched... Start Date: 03/07/21 Status: Ordered Zithromax Z-Devin 250 mg oral tablet 1 pack/packet, By Mouth, Once, # 6 tablet, 0 Refills, Soft Stop, 07/18/21 10:55:00 EST, Tablet, [facility] [id number], Partial fill upon patient request if the prescription is for a schedule II opioid drug., 173, cm, 04/21/21... 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
--- OUTSIDE RECORDS SUMMARY | 2023-07-12 20:12 | XMS_ITS | Continuity of Care Document ---
Author Name Unknown Organization [facility] y Address [address] [place] [address]- Care Team Providers Care Sustainability Consultant Name Role Phone Conner QUEEN, Namrata Agarwal Primary Care Physician [phone] Encounter [facility] Date(s): 04/08/22 - 05/30/22 [facility] [address] [place] [id number] Attending Physician: Isidoro Neely MD Admitting Physician: Isidoro Neely MD Allergies, Adverse Reactions, Alerts Substance Reaction Severity Status Bee Stings Active Latex rash Active Suboxone migraine (PO), fevers (IM) A ctive shellfish Active Immunizations Given and Recorded Vaccine Date [...] 8:29:00 EDT, Powder, Route to Pharmacy Electronically, [id number], [facility]... Start Date: 01/07/22 Stop Date: 01/02/23 Status: Ordered Albuterol (Eqv-ProAir HFA) 90 mcg/inh inhalation aerosol 2 puffs, Inhalation, Every 6 hours, # 8.5 Gm, 11 Refills, 08/25/21 12:34:00 EST, [facility] [id number], 25, 2 puffs Inhalation Every 6 hours, 173, cm, 08/25/21 12:31:00 EST, Height, 84, kg, 04/19/21 2:36:00 EDT, Dry Weight Start Date: 08/25/21 Status: Ordered amLODIPine 10 mg oral tablet 10 mg, 1, tablet, By Mouth, Daily, # 30 tablet, Refills 11, Tot. Refills 11, Maintenance, 08/27/21 16:46:00 EST, Route to Pharmacy Electronically, [facility] [id number], 173,cm, 08/25/21 12:31:00 EST, Height, 84, kg, 04/19/21... Start Date: 08/27/21 Status: Ordered Asperflex 4% topical film 1 patch, Topically, Daily, for 30 days, # 30 patch, 11 Refills, Acute 03/12/23 14:41:00 EDT, 03/17/22 14:41:00 EDT, [facility] [id number], Partial fill upon patient request if the prescription is for a schedule II opioid drug.... Start Date: 03/17/22 Stop Date: 03/12/23 Status: Ordered aspirin 81 mg oral tablet, chewable 81 mg, 1, tablet, By Mouth, Daily, # 120 tablet, Refills 3, Tot. Refills 3, Maintenance, 10/02/21 11:47:00 EST, Route to Pharmacy Electronically, [facility] [id number], Partial fill upon patient request if the prescription is... Start Date: 10/02/21 Stop Date: 01/25/23 Status: Ordered atorvastatin 80 mg oral tablet 1 tablet = 80 mg, By Mouth, Daily, # 30 tablet, 11 Refills, Maintenance, 11/07/21 14:34:00 EST, Tablet, [facility] [id number], Partial fill upon patient request if the prescription is for a schedule II opioid drug., 170, cm, 0... Start Date: 11/07/21 Status: Ordered Biktarvy oral tablet 1 tablet, By Mouth, Daily, # 30 tablet, 11 Refills, [facility], 30, TAKE ONE TABLET BY MOUTH [...] 1 Refills, Soft Stop, 03/05/22 10:37:00 EDT, [facility] [id number], Partial fill upon patient request if the prescriptio... Start Date: 03/05/22 Status: Ordered hydrocortisone 0.5% topical cream See Instructions, use sparingly on face, use on all other affected areas, # 28 Gm, 11 Refills, Maintenance, 03/07/21 6:50:00 EDT, [facility] [id number], use sparingly on face, use on all other affected areas, 174, cm, 01/13/21... Start Date: 03/07/21 Status: Ordered Incruse Ellipta 62.5 mcg/inh inhalation powder 1 puffs, Inhalation, Every 24 hours, doses should be taken AT least 24 HOURS APART, # 30 Unknown, 11 Refills, 08/25/21 12:34:00 EST, [facility] [id number], 173, cm, 08/25/21 12:31:00 EST, Height, 84, kg, 04/19/21 2:36:00 EDT,... Start Date: 08/25/21 Status: Ordered ketoconazole 2% topical cream 1 application, Topically, Daily, # 30 Gm, 11 Refills, Maintenance, 04/20/22 9:23:00 EDT, [facility] [id number], 1 application Topically Daily, 173, cm, 12/05/21 17:38:00 EDT,Height, 127, kg, 12/05/21 17:38:00 EDT, Dry Weight Start Date: 04/20/22 Status: Ordered Lidoderm 5% film 1 patch, Topically, Daily, # 30 patch, 11 Refills, Maintenance, 03/19/22 21:12:00 EDT, [facility] [id number], Partial fill upon patient request if the [...] 11 Refills, Maintenance, 12/15/21 6:32:00 EDT, Tablet, [place], [place] - [id number], 1 tablet By Mouth Daily, 173, cm, 12/05/21 17:38:00 EDT,Height, 127, kg, 12/05/21 17:38:00 EDT, Dry Weight Start Date: 12/15/21 Status: Ordered Narcan 4 mg/0.1 mL nasal spray See Instructions, 4 mg Once may repeat every 2 to 3 minutes until patient responds, # 2 each, 3 Refills, Soft Stop, 03/05/22 10:07:00 EDT, [facility] [id number], 173, cm, 12/05/21 17:38:00 EDT, Height, 127, kg, 12/05/21 17:38... Start Date: 03/05/22 Status: Ordered Nicotine 2 mg gum 1 each = 2 mg, Chew, Every 2 hours, PRN as needed for smoking cessation, for 4 week(s), # 160 each,11 Refills, Acute 09/11/22 12:53:00 EST, 10/10/21 12:53:00 EST, Gum, [facility] [id number], Partial fill upon patient request... Start Date: 10/10/21 Stop Date: 09/11/22 Status: Ordered ondansetron 4 mg oral tablet, disintegrating 1 tablet = 4 mg, By Mouth, Every 8 hours, PRN as needed for nausea/vomiting, # 12 tablet, 11 Refills, Maintenance, 08/21/21 13:33:00 EST, DIS Tablet, [facility] [id number], Partial fill upon patient request if the [...] Refills, Maintenance, 12/02/21 16:55:00 EDT, REC Powder, [facility] [id number], 17 Gm By Mouth 2 times a day,x30 days,PRN:Constip... Start Date: 12/02/21 Stop Date: 04/01/22 Status: Ordered rOPINIRole 0.5 mg oral tablet 1 tablet = 0.5 mg, By Mouth, Daily at bedtime, 1 to 3 hours before bedtime, # 30 tablet, 11 Refills, Maintenance, 08/21/21 13:32:00 EST, Tablet, [facility] [id number], Partial fill upon patient request if the prescription is f... Start Date: 08/21/21 Status: Ordered sildenafil 100 mg oral tablet 1 tablet = 100 mg, By Mouth, Daily, 1 hour before sexual activity, # 20 tablet, 11 Refills, Maintenance, 04/20/22 9:24:00 EDT, Tablet, [place], [place] - [id number], disreguard last script for 0.5 tab, 173, cm, 12/05/21 17:38:00 EDT,... Start Date: 04/20/22 Status: Ordered varenicline 1mg tablet 1 tablet = 1 mg, By Mouth, Daily, 0.5 tab daily x 3 days then 0.5 tab BID x 3 days then 1 tab BID, # 30 tablet, 4 Refills, Maintenance, 04/01/22 16:45:00 EDT, Tablet, [place], [place] - [id number], Partial fill upon patient request if... Start [...] meningitis - 01/2019(Confirmed) [facility] Active Diastolic dysfunction(Confirmed) 1 09/27/21 [...] Team Personnel Name: Namrata Prieto MD Address: [address] [place] [address], -[facility] [address]
--- OUTSIDE RECORDS SUMMARY | 2023-07-12 20:12 | XMS_ITS | Continuity of Care Document ---
Author Name Unknown Organization [facility] ter Address [address] [place] [address]- Care Team Providers Care Bobbin Disker Name Role Phone Long PIG FARMER, Giovanna Bernard Primary Care Physician Encounter [facility] Date(s): 10/25/19 - 10/25/19 [facility] [address] [place] [id number]- [facility] Attending Physician: Namrata Prieto MD Allergies, Adverse Reactions, Alerts Substance Reaction Severity Status shellfish Active Latex rash Active Immunizations Given and Recorded Vaccine Date Status Refusal Reason influenza virus vaccine, inactivated 06/08/19 Give n Medications amLODIPine 5 mg oral tablet 5 mg, 1, tablet, By Mouth, Daily, # 30 tablet, Refills 0, Tot. Refills 0, Maintenance, 09/26/19 12:05:00 EST, Route to Pharmacy Electronically, [place], [place] -, 172, cm, 09/26/19 8:57:00 EST, Height, 66.3, kg, 09/11/19 13:26:00 EST... Start Date: 09/26/19 Status: Ordered atovaquone 750 mg/5 mL oral suspension 10 mL = 1,500 mg, By Mouth, Daily, for 60 days, # 600 mL, 5 Refills, Acute 08/18/20 9:40:00 EST, 08/24/19 9:40:00 EST, Suspension, [place], [place] -, Pls cancel bactrim prescription. Atovaquone to replace bactrim, 170, cm, 08/24/19 9... Start Date: 08/24/19 Stop Date: 08/18/20 Status: Ordered Biktarvy oral tablet 1 tablet, By Mouth, Daily, # 30 tablet, 5 Refills, Maintenance, 08/24/19 9:40:00 EST, Tablet, [place], [place] -, 1 tablet By Mouth [...] 09/26/19 12:05:00 EST, Route to Pharmacy Electronically, [place], [place] -, 172, cm, 09/26/19 8:57:00 EST, [place]... Start Date: 09/26/19 Status: Ordered fluconazole 200 mg oral tablet 1 tablet = 200 mg, By Mouth, Daily, for 28 days, # 28 tablet, 5 Refills, Acute 02/08/20 9:42:00 EDT, 08/24/19 9:42:00 EST, Tablet, [place], [place] -, Decrease in dose., 170, cm, 08/24/19 9:21:00 EST, Height, 66.36, kg, 03/10/19 16:51... Start Date: 08/24/19 Stop Date: 02/08/20 Status: Ordered gabapentin 100 mg oral capsule 200 mg, 2, capsule, By Mouth, 3 times a day, # 180 capsule, Refills 0, Tot. Refills 0, Maintenance,10/24/19 11:24:00 EST, Route to Pharmacy Electronically, [place], [place] -, 172, cm, 09/26/19 8:57:00 EST, Height, 66.3, kg, 09/11/19... Start Date: 10/24/19 Stop Date: 11/23/19 Status: Ordered lithium 300 mg oral capsule 2 capsule = 600 mg, By Mouth, Daily at bedtime, # 60 capsule, 0 Refills, Maintenance, 10/24/19 11:23:00 EST, [place], [place] -, 172, cm, 09/26/19 8:57:00 EST, Height, 66.3, kg, 09/11/19 13:26:00 EST, Dry Weight Start Date: 10/24/19 Status: Ordered lithium 300 mg oral tablet 1 tablet = 300 mg, By Mouth, Daily, # 30 tablet, 0 Refills, Maintenance, 10/24/19 11:22:00 EST, Tablet, [place], [place] -, 172, cm, 09/26/19 8:57:00 EST, Height, 66.3, kg, 09/11/19 13:26:00 EST, Dry Weight Start Date: 10/24/19 Stop Date: 11/23/19 Status: Ordered LORazepam 0.5 mg oral tablet 1 tablet = 0.5 mg, By Mouth, 2 times a day, PRN Anxiety, # 60 tablet, 0 Refills, Maintenance, 10/24/19 11:24:00 EST, Tablet, [place], [place] -, 172, cm, 09/26/19 8:57:00 [...] 0 Refills, Maintenance, 09/26/19 12:07:00 EST, Tablet, [place], [place] -, 172, cm, 09/26/19 8:57:00 EST, Height, 66.3, kg,09/11/19 13:26:00 EST, Dry Weight Start Date: 09/26/19 Status: Ordered multivitamin with minerals Calcium and Magnesium oral tablet 1 tablet, By Mouth, Daily, # 30 tablet, 5 Refills, Maintenance, 09/26/19 12:05:00 EST, Tablet, [place], [place] -, 1 tablet By Mouth Daily,x30 days, 172, cm, 09/26/19 8:57:00 EST, Height, 66.3, kg, 09/11/19 13:26:00 EST, Dry Weight Start Date: 09/26/19 Stop Date: 03/24/20 Status: Ordered Narcan 4 mg/0.1 mL nasal spray See Instructions, 4 mg Once may repeat every 2 to 3 minutes until patient responds, # 2 each, 1 Refills, Soft Stop, 08/24/19 9:41:00 EST, [facility] - [place], [place] -, MAMADOU García to pickle maker [...]
--- OUTSIDE RECORDS SUMMARY | 2023-07-12 20:12 | XMS_ITS | Continuity of Care Document ---
Author Name Unknown Organization [facility] Address [address] [place] [address]- Care Team Providers Care Die Tripper Name Role Phone Conner QUEEN, Namrata Agarwal Primary Care Physician [phone] Encounter [facility] Date(s): 04/14/21 - 05/14/21 [facility] [address] [place] [address]- Encounter Diagnosis Erectile dysfunction(Discharge Diagnosis) - 05/29/20 [facility] Attending Physician: Angeles De La Rosa Admitting Physician: Admtr, [id number] Referring Physician: Admtr, [...] 03/07/21 6:50:00 EDT, Route to Pharmacy Electronically, [facility] - [place], [place] - [id number], 174, cm, 01/13/21 8:20:00 EDT, Height, 93, kg, 01/08/21 18:... Start Date: 03/07/21 Status: Ordered atovaquone 750 mg/5 mL oral suspension 10 mL = 1,500 mg, By Mouth, Daily, for 60 days, # 600 mL, 11 Refills, Acute 02/25/23 6:50:00 EDT, 03/07/21 6:50:00 EDT, Suspension, [facility] [id number], Pls cancel bactrim prescription. Atovaquone to replace bactrim, 174, cm... Start Date: 03/07/21 Stop Date: 02/25/23 Status: Ordered Biktarvy oral tablet 1 tablet, By Mouth, Daily, for 30 days, # 30 tablet, 11 Refills, Hard Stop 05/23/21 16:35:00 EDT, 05/28/20 16:35:00 EDT, Tablet, [facility], [facility] [id number], 1 tablet By Mouth Daily,x30 days, 171, cm, 05/28/20 16:01:00 EDT, Height,... Start Date: 05/28/20 Stop Date: 05/23/21 Status: Ordered Colace sodium 100 mg oral capsule 100 mg, 1, capsule, By Mouth, 2 times a day, PRN, # 60 capsule, Refills 11, Tot. Refills 11, Maintenance, for constipation, 05/28/20 16:34:00 EDT, Route to Pharmacy Electronically, [facility] [id number], 171, cm, 05/28/20 16:0... Start Date: 05/28/20 Status: Ordered hydrocortisone 0.5% topical cream See Instructions, use sparingly on face, use on all other affected areas, # 28 Gm, 11 Refills, Maintenance, 03/07/21 6:50:00 EDT, [facility] [id number], use sparingly on face, use on all other affected areas, 174, cm, 01/13/21... Start Date: 03/07/21 Status: Ordered ketoconazole 2% topical shampoo 1 application, Topically, Daily, try daily for 5 days as a shampoo, # 120 mL, 11 Refills, Soft Stop, 03/07/21 6:51:00 EDT, Shampoo, [facility] [id number], 1 application Topically Daily,Instr:try daily for 5 [...] 0 Refills, Maintenance, 07/08/20 15:34:00 EST, Tablet, [facility], 3 tablet By Mouth Daily,x12 [...] 11 Refills, Maintenance, 03/07/21 6:51:00 EDT, Tablet, [place], [place] - [id number], 1 tablet By Mouth Daily, 174, cm, 01/13/21 8:20:00 EDT, Height, 93, kg, 01/08/21 18:17:00 EDT, Dry Weight Start Date: 03/07/21 Status: Ordered Narcan 4 mg/0.1 mL nasal spray See Instructions, 4 mg Once may repeat every 2 to 3 minutes until patient responds, # 2 each, 1 Refills, Soft Stop, 08/24/19 9:41:00 EST, [place], [place] -, MAMADOU García to seed cone picker for Pt., 170, cm, 08/24/19 9:21:00 EST, Height, 66.36,... Start Date: 08/24/19 Status: Ordered ondansetron 4 mg oral tablet, disintegrating 1 tablet = 4 mg, By Mouth, Every 8 hours, PRN as needed for nausea/vomiting, # 12 tablet, 0 Refills, Maintenance, 12/08/20 19:19:00 EDT, DIS Tablet, [facility] [id number], Partial fill upon patient request if the [...] Refills, Maintenance, 11/28/19 9:42:00 EDT, REC Powder, [place], [place] -, 17 Gm By Mouth 2 times a day,x30 days,PRN:Constipation,Instr:... Start Date: 11/28/19 Stop Date: 03/27/20 Status: Ordered sildenafil 100 mg oral tablet 1 tablet = 100 mg, By Mouth, Daily, 1 hour before sexual activity, # 20 tablet, 11 Refills, Maintenance, 03/07/21 6:49:00 EDT, Tablet, [facility] [id number], Partial fill upon patient request if the prescription is for a sched... 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, intermittent(Confirmed) Active Hemorrhoid(Confirmed) Active HIV disease - 01/2019(Confirmed) Active Erectile dysfunction(Confirmed) Active Pulmonary nodule(Confirmed) Active Oliguria(Confirmed) Active Opiate dependence(Confirmed) Active Emphysema/COPD(Confirmed) Active Tobacco use(Confirmed) Active Diagnosis Diagnosis Type Effective Dates Health Status Clinical Service Informant Erectile dysfunction Discharge Diagnosis 05/29/20 Depression - Olinda therapist, [facility] Discharge Diagnosis 05/29/20 Social History Social History Type Response Tobacco Use: 4 or less cigar ettes(less than 1/4 pack)/day in last 30 days. Sex Male
--- OUTSIDE RECORDS SUMMARY | 2023-07-12 20:13 | XMS_ITS | Continuity of Care Document ---
Author Name Unknown Organization [facility] y Address [address] [place] [address]- Care Team Providers Care Equip Maint Eng Name Role Phone Calvin WELLS, Giovanna Bernard Primary Care Physician Encounter [facility] Date(s): 12/21/19 - 12/31/19 [facility] [address] [place] [address]- Attending Physician: Angeles De La Rosa Admitting [...] 11/28/19 9:43:00 EDT, Route to Pharmacy Electronically, [facility] [place], [place] -, 172, cm, 09/26/19 8:57:00 EST, Height, 66.3, kg, 09/11/19 13:26:00 EST,... Start Date: 11/28/19 Stop Date: 05/26/20 Status: Ordered atovaquone 750 mg/5 mL oral suspension 10 mL = 1,500 mg, By Mouth, Daily, for 60 days, # 600 mL, 5 Refills, Acute 11/22/20 9:44:00 EDT, 11/28/19 9:44:00 EDT, Suspension, [facility] - [place], [place] -, Pls cancel bactrim prescription. Atovaquone to replace bactrim, 172, cm, 09/26/19 8... Start Date: 11/28/19 Stop Date: 11/22/20 Status: Ordered Biktarvy oral tablet 1 tablet, By Mouth, Daily, # 30 tablet, 5 Refills, Maintenance, 08/24/19 9:40:00 EST, Tablet, [place], [place] -, 1 tablet By Mouth Daily,x30 [...] 12/29/19 16:19:00 EDT, Route to Pharmacy Electronically, [place], [place] -, 171, cm, 12/29/19 15:28:00 EDT, Hei... Start Date: 12/29/19 Status: Ordered docusate sodium 100 mg oral capsule 100 mg, 1, capsule, By Mouth, 2 times a day, PRN, # 60 capsule, Refills 0, Tot. Refills 0, Maintenance, for constipation, 09/26/19 12:05:00 EST, Route to Pharmacy Electronically, [place], [place] -, 172, cm, 09/26/19 8:57:00 EST, Heig... Start Date: 09/26/19 Status: Ordered fluconazole 200 mg oral tablet 1 tablet = 200 mg, By Mouth, Daily, for 28 days, # 28 tablet, 5 Refills, Acute 02/08/20 9:42:00 EDT, 08/24/19 9:42:00 EST, Tablet, [place], [place] -, Decrease in dose., 170, cm, 08/24/19 9:21:00 EST, Height, 66.36, kg, 03/10/19 16:51... Start Date: 08/24/19 Stop Date: 02/08/20 Status: Ordered gabapentin 100 mg oral capsule 200 mg, 2, capsule, By Mouth, 3 times a day, # 180 capsule, Refills 3, Tot. Refills 3, Maintenance,11/28/19 9:44:00 EDT, Route to Pharmacy Electronically, [place], [place] -, 172, cm, 09/26/19 8:57:00 EST, Height, 66.3, kg, 09/11/19... Start Date: 11/28/19 Stop Date: 03/27/20 Status: Ordered hydrocortisone 0.5% topical cream See Instructions, apply in a thin film to the hands and rub in gently 3 times a day for 5 days, # 28 Gm, 0 Refills, Acute 12/20/20 12:12:00 EDT, 12/21/19 11:57:00 EDT, [place], [place] -, apply in a thin film to the hands and rub in g... Start Date: 12/21/19 Stop Date: 12/20/20 Status: Ordered ketoconazole 2% topical shampoo 1 application, Topically, Daily, try daily for 5 days as a shampoo, # 120 mL, 3 Refills, Soft Stop,12/21/19 11:58:00 EDT, Shampoo, [place], [place] -, 1 application Topically Daily,Instr:try daily for 5 days as a shampoo, 172, cm, 01... Start Date: 12/21/19 Status: Ordered lithium 300 mg oral capsule 2 capsule = 600 mg, By Mouth, Daily at bedtime, # 60 capsule, 3 Refills, Maintenance, 11/28/19 9:41:00 EDT, [place], [place] -, 172, cm, 09/26/19 8:57:00 EST, [...] tablet, 5 Refills, Maintenance, 11/28/19 9:41:00EDT, Tablet, [place], [place] -, 172, cm, 09/26/19 8:57:00 EST, Height, 66.3, kg, 09/11/19 13:26:00 EST, Dry Weight Start Date: 11/28/19 Stop Date: 05/26/20 Status: Ordered multivitamin with minerals Calcium and Magnesium oral tablet 1 tablet, By Mouth, Daily, # 30 tablet, 5 Refills, Maintenance, 09/26/19 12:05:00 EST, Tablet, [place], [place] -, 1 tablet By Mouth Daily,x30 days, 172, cm, 09/26/19 8:57:00 EST, Height, 66.3, kg, 09/11/19 13:26:00 EST, Dry Weight Start Date: 09/26/19 Stop Date: 03/24/20 Status: Ordered Narcan 4 mg/0.1 mL nasal spray See Instructions, 4 mg Once may repeat every 2 to 3 minutes until patient responds, # 2 each, 1 Refills, Soft Stop, 08/24/19 9:41:00 EST, [place], [place] -, MAMADOU García to order picker/assembler for Pt., 170, cm, 08/24/19 9:21:00 EST, [...] Refills, Maintenance, 11/28/19 9:42:00 EDT, REC Powder, [facility] - [place], [place] -, 17 Gm By Mouth 2 times a day,x30 days,PRN:Constipation,Instr:... Start Date: 11/28/19 Stop Date: 03/27/20 Status: Ordered Senna 8.6 mg oral tablet 17.2 mg, 2, tablet, By Mouth, Daily at bedtime, PRN, for 7 days, # 25 tablet, Refills 0, Tot. Refills 0, Acute, for constipation, 01/05/20 16:08:00 EDT, 12/29/19 16:08:00 EDT, Route to Pharmacy Electronically, [place], [place] - Table... Start Date: 12/29/19 Stop Date: 01/05/20 Status: Ordered Problem List Condition Effective Dates [...]
--- OUTSIDE RECORDS SUMMARY | 2023-07-12 20:13 | XMS_ITS | Continuity of Care Document ---
Author Name Unknown Organization [facility] Address [address] [place] [address]- Care Team Providers Care Senior Software Test Engineer Name Role Phone Conner QUEEN, Namrata Agarwal Primary Care Physician Encounter [facility] Date(s): 10/09/21 - 11/08/21 [facility] [address], [place] [address] Allergies, Adverse Reactions, Alerts Substance [...] 13:14:00 EST, Powder, Route to Pharmacy Electronically, [id number], [facility]... Start Date: 08/21/21 Stop Date: 01/18/22 Status: Ordered Albuterol (Eqv-ProAir HFA) 90 mcg/inh inhalation aerosol 2 puffs, Inhalation, Every 6 hours, # 8.5 Gm, 11 Refills, 08/25/21 12:34:00 EST, [facility] [id number], 25, 2 puffs Inhalation Every 6 hours, 173, cm, 08/25/21 12:31:00 EST, Height, 84, kg, 04/19/21 2:36:00 EDT, Dry Weight Start Date: 08/25/21 Status: Ordered amLODIPine 10 mg oral tablet 10 mg, 1, tablet, By Mouth, Daily, # 30 tablet, Refills 11, Tot. Refills 11, Maintenance, 08/27/21 16:46:00 EST, Route to Pharmacy Electronically, [facility] [id number], 173,cm, 08/25/21 12:31:00 EST, Height, 84, kg, 04/19/21... Start Date: 08/27/21 Status: Ordered aspirin 81 mg oral tablet, chewable 81 mg, 1, tablet, By Mouth, Daily, # 120 tablet, Refills 3, Tot. Refills 3, Maintenance, 10/02/21 11:47:00 EST, Route to Pharmacy Electronically, [facility] [id number], Partial fill upon patient request if the prescription is... Start Date: 10/02/21 Stop Date: 01/25/23 Status: Ordered atorvastatin 80 mg oral tablet 1 tablet = 80 mg, By Mouth, Daily, # 30 tablet, 11 Refills, Maintenance, 11/07/21 14:34:00 EST, Tablet, [facility] [id number], Partial fill upon patient request if the prescription is for a schedule II opioid drug., 170, cm, 0... Start Date: 11/07/21 Status: Ordered atovaquone 750 mg/5 mL oral suspension 10 mL = 1,500 mg, By Mouth, Daily, for 60 days, # 600 mL, 11 Refills, Acute 10/28/23 14:35:00 EST, 11/07/21 14:35:00 EST, Suspension, [facility] [id number], Pls cancel bactrim prescription. Atovaquone to replace bactrim, 170,... Start Date: 11/07/21 Stop Date: 10/28/23 Status: Ordered Biktarvy oral tablet 1 tablet, By Mouth, Daily, # 30 tablet, 11 Refills, [facility], 30, TAKE ONE TABLET BY MOUTH [...] FOR CONSTIPATION, # 60 each, 5 Refills, [facility], 173, cm, 04/21/21 8:17:00 EDT, Height, 84, kg, 04/19/21 2:36:00 EDT, Dry Weight Start Date: 06/02/21 Status: Ordered hydrocortisone 0.5% topical cream See Instructions, use sparingly on face, use on all other affected areas, # 28 Gm, 11 Refills, Maintenance, 03/07/21 6:50:00 EDT, [facility] [id number], use sparingly on face, use on all other affected areas, 174, cm, 01/13/21... Start Date: 03/07/21 Status: Ordered Incruse Ellipta 62.5 mcg/inh inhalation powder 1 puffs, Inhalation, Every 24 hours, doses should be taken AT least 24 HOURS APART, # 30 Unknown, 11 Refills, 08/25/21 12:34:00 EST, [place], [place] - [id number], 173, cm, 08/25/21 12:31:00 EST, Height, 84, kg, 04/19/21 2:36:00 EDT,... Start Date: 08/25/21 Status: Ordered ketoconazole 2% topical cream See Instructions, APPLY TO THE AFFECTED AREA TOPICALLY 2 (two) times a day. USE ON THE FACE, # 60 Gm, 11 Refills, [facility], 30, APPLY TO THE AFFECTED AREA [...] 11 Refills, Maintenance, 03/07/21 6:51:00 EDT, Tablet, [place], [place] - [id number], 1 tablet By Mouth Daily, 174, cm, 01/13/21 8:20:00 EDT, Height, 93, kg, 01/08/21 18:17:00 EDT, Dry Weight Start Date: 03/07/21 Status: Ordered Narcan 4 mg/0.1 mL nasal spray See Instructions, 4 mg Once may repeat every 2 to 3 minutes until patient responds, # 2 each, 1 Refills, Soft Stop, 08/24/19 9:41:00 EST, [place], [place] -, MAMADOU García to brick picker for Pt., 170, cm, 08/24/19 9:21:00 EST, Height, 66.36,... Start Date: 08/24/19 Status: Ordered Nicotine 2 mg gum 1 each = 2 mg, Chew, Every 2 hours, PRN as needed for smoking cessation, for 4 week(s), # 160 each,11 Refills, Acute 09/11/22 12:53:00 EST, 10/10/21 12:53:00 EST, Gum, [facility] [id number], Partial fill upon patient request... Start Date: [...] Maintenance, 08/21/21 13:33:00 EST, DIS Tablet, [facility] [id number], Partial fill upon patient request if the [...] 10/02/21 11:47:00 EST, Route to Pharmacy Electronically, [facility], [facility] [id number], Partial fill upon patient request if the prescription is f... Start Date: 10/02/21 Stop Date: 12/31/21 Status: Ordered polyethylene glycol 3350 oral powder for reconstitution = 17 Gm, By Mouth, 2 times a day, PRN Constipation, dissolve in water before taking, # 527 Gm, 3 Refills, Maintenance, 11/28/19 9:42:00 EDT, REC Powder, [place], [place] -, 17 Gm By Mouth 2 times a day,x30 days,PRN:Constipation,Instr:... Start Date: 11/28/19 Stop Date: 03/27/20 Status: Ordered polyethylene glycol 3350 oral powder for reconstitution See Instructions, DISSOLVE 17grams powder IN WATER BEFORE drinking 2 (two) times a day NEEDED FOR CONSTIPATION, # 510 Gm, 11 Refills, [facility], 30, DISSOLVE 17grams powder IN WATER BEFORE drinking 2 (two) times a day NEEDED FOR CONSTIPATI... Start Date: 09/03/21 Status: Ordered rOPINIRole 0.5 mg oral tablet 1 tablet = 0.5 mg, By Mouth, Daily at bedtime, 1 to 3 hours before bedtime, # 30 tablet, 11 Refills, Maintenance, 08/21/21 13:32:00 EST, Tablet, [facility] [id number], Partial fill upon patient request if the prescription is f... Start Date: 08/21/21 Status: Ordered Senna 8.6 mg oral tablet 1 or 2 tablets, By Mouth, Daily at bedtime, PRN, # 60 tablet, Refills 5, Tot. Refills 5, Maintenance, Constipation, 10/10/21 14:43:00 EST, Route to Pharmacy Electronically, [place], [place] - [id number] Tablet, Partial fill upon patie... Start Date: 10/10/21 Status: Ordered sildenafil 100 mg oral tablet 1 tablet = 100 mg, By Mouth, Daily, 1 hour before sexual activity, # 20 tablet, 11 Refills, Maintenance, 03/07/21 6:49:00 EDT, Tablet, [place], [place] - [id number], Partial fill upon patient request if the prescription is for a sched... 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
--- OUTSIDE RECORDS SUMMARY | 2023-07-12 20:13 | XMS_ITS | Continuity of Care Document ---
Author Name Unknown Organization [facility] Address [address] [place] [address]- Care Team Providers Care Aviation Operations Specialist Name Role Phone Conner QUEEN, Namrata Agarwal Primary Care Physician [facility] Date(s): 01/21/22 - 02/27/22 [facility] [address] [place] [address]- Attending Physician: Not on Staff, Attending MD [...] 8:29:00 EDT, Powder, Route to Pharmacy Electronically, [id number], [facility] - Spr... Start Date: 01/07/22 Stop Date: 01/02/23 Status: Ordered Albuterol (Eqv-ProAir HFA) 90 mcg/inh inhalation aerosol 2 puffs, Inhalation, Every 6 hours, # 8.5 Gm, 11 Refills, 08/25/21 12:34:00 EST, [facility], [place] - [id number], 25, 2 puffs Inhalation Every 6 hours, 173, cm, 08/25/21 12:31:00 EST, Height, 84, kg, 04/19/21 2:36:00 EDT, Dry Weight Start Date: 08/25/21 Status: Ordered amLODIPine 10 mg oral tablet 10 mg, 1, tablet, By Mouth, Daily, # 30 tablet, Refills 11, Tot. Refills 11, Maintenance, 08/27/21 16:46:00 EST, Route to Pharmacy Electronically, [facility], [place] - [id number], 173,cm, 08/25/21 12:31:00 EST, Height, 84, kg, 04/19/21... Start Date: 08/27/21 Status: Ordered aspirin 81 mg oral tablet, chewable 81 mg, 1, tablet, By Mouth, Daily, # 120 tablet, Refills 3, Tot. Refills 3, Maintenance, 10/02/21 11:47:00 EST, Route to Pharmacy Electronically, [place], [place] - [id number], Partial fill upon patient request if the prescription is... Start Date: 10/02/21 Stop Date: 01/25/23 Status: Ordered atorvastatin 80 mg oral tablet 1 tablet = 80 mg, By Mouth, Daily, # 30 tablet, 11 Refills, Maintenance, 11/07/21 14:34:00 EST, Tablet, [facility], [place] - [id number], Partial fill upon patient request if the prescription is for a schedule II opioid drug., 170, cm, 0... Start Date: 11/07/21 Status: Ordered atovaquone 750 mg/5 mL oral suspension 10 mL = 1,500 mg, By Mouth, Daily, for 60 days, # 600 mL, 11 Refills, Acute 10/28/23 14:35:00 EST, 11/07/21 14:35:00 EST, Suspension, [facility], [place] - [id number], Pls cancel bactrim prescription. Atovaquone to replace bactrim, 170,... Start Date: 11/07/21 Stop Date: 10/28/23 Status: Ordered Biktarvy oral tablet 1 tablet, By Mouth, Daily, # 30 tablet, 11 Refills, [facility], 30, TAKE ONE TABLET BY MOUTH DAILY, 173, cm, 04/21/21 8:17:00 EDT, Height, 84, kg, 04/19/21 2:36:00 EDT, Dry Weight Start Date: 06/25/21 Status: Ordered bisacodyl 10 mg rectal suppository 1 supp = 10 mg, Rectally, Daily, PRN for constipation, # 10 supp, 3 Refills, Acute 03/04/22 20:42:00 EDT, 02/25/22 20:42:00 EDT, Suppository, [facility] [id number], Partial fill upon patient request if the [...] 12/02/21 16:54:00 EDT, Route to Pharmacy Electronically, [place], [place] - [id number], Partial fill upon pilar... Start Date: 12/02/21 [...] FOR CONSTIPATION, # 60 each, 2 Refills, [facility], 170, cm, 10/10/21 13:45:00 EST, Height, 110, kg, 09/29/21 21:14:00 EST, Dry Weight Start Date: 12/01/21 Status: Ordered hydrocortisone 0.5% topical cream See Instructions, use sparingly on face, use on all other affected areas, # 28 Gm, 11 Refills, Maintenance, 03/07/21 6:50:00 EDT, [facility] [id number], use sparingly on face, use on all other affected areas, 174, cm, 01/13/21... Start Date: 03/07/21 Status: Ordered Incruse Ellipta 62.5 mcg/inh inhalation powder 1 puffs, Inhalation, Every 24 hours, doses should be taken AT least 24 HOURS APART, # 30 Unknown, 11 Refills, 08/25/21 12:34:00 EST, [facility] [id number], 173, cm, 08/25/21 12:31:00 EST, Height, 84, kg, 04/19/21 2:36:00 EDT,... Start Date: 08/25/21 Status: Ordered ketoconazole 2% topical cream 1 application, Topically, Daily, # 30 Gm, 11 Refills, Maintenance, 12/02/21 16:56:00 EDT, [facility] [id number], 1 application Topically Daily, 170, cm, 10/10/21 [...] 0 Refills, Maintenance, 11/11/21 17:22:00 EST, Tablet, [facility] [id number], 170, cm, 10/10/21 13:45... Start Date: 11/11/21 Stop Date: 12/11/21 Status: Ordered multivitamin with minerals Calcium and Magnesium oral tablet 1 tablet, By Mouth, Daily, # 30 tablet, 11 Refills, Maintenance, 12/15/21 6:32:00 EDT, Tablet, [facility] [id number], 1 tablet By Mouth Daily, 173, cm, 12/05/21 17:38:00 EDT,Height, 127, kg, 12/05/21 17:38:00 EDT, Dry Weight Start Date: 12/15/21 Status: Ordered Narcan 4 mg/0.1 mL nasal spray See Instructions, 4 mg Once may repeat every 2 to 3 minutes until patient responds, # 2 each, 1 Refills, Soft Stop, 08/24/19 9:41:00 EST, [place], [place] -, MAMADOU García to corn picker for Pt., 170, cm, 08/24/19 9:21:00 EST, Height, 66.36,... Start Date: 08/24/19 Status: Ordered Nicotine 2 mg gum 1 each = 2 mg, Chew, Every 2 hours, PRN as needed for smoking cessation, for 4 week(s), # 160 each,11 Refills, Acute 09/11/22 12:53:00 EST, 10/10/21 12:53:00 EST, Gum, [facility] [id number], Partial fill upon patient request... Start Date: [...] Refills, Maintenance, 08/21/21 13:33:00 EST, DIS Tablet, [facility] [id number], Partial fill upon patient request if the [...] Route to Pharmacy Electronically, [facility] [id number], Partial fill upon patient request if the prescription is f... Start Date: 10/02/21 Stop Date: 12/31/21 Status: Ordered polyethylene glycol 3350 oral powder for reconstitution See Instructions, DISSOLVE 17grams powder IN WATER BEFORE drinking 2 (two) times a day NEEDED FOR CONSTIPATION, # 510 Gm, 11 Refills, [facility], 30, DISSOLVE 17grams powder IN WATER BEFORE drinking 2 (two) times a day NEEDED FOR CONSTIPATI... Start Date: 09/03/21 Status: Ordered polyethylene glycol 3350 oral powder for reconstitution = 17 Gm, By Mouth, 2 times a day, PRN Constipation, dissolve in water before taking, # 527 Gm, 3 Refills, Maintenance, 12/02/21 16:55:00 EDT, REC Powder, [facility], [place] - [id number], 17 Gm By Mouth 2 times a day,x30 days,PRN:Constip... Start Date: 12/02/21 Stop Date: 04/01/22 Status: Ordered rOPINIRole 0.5 mg oral tablet 1 tablet = 0.5 mg, By Mouth, Daily at bedtime, 1 to 3 hours before bedtime, # 30 tablet, 11 Refills, Maintenance, 08/21/21 13:32:00 EST, Tablet, [facility], [place] - [id number], Partial fill upon patient request if the prescription is f... Start Date: 08/21/21 Status: Ordered Senna 8.6 mg oral tablet 1 or 2 tablets, By Mouth, Daily at bedtime, PRN, # 60 tablet, Refills 5, Tot. Refills 5, Maintenance, Constipation, 10/10/21 14:43:00 EST, Route to Pharmacy Electronically, [place], [place] - [id number] Tablet, Partial fill upon patie... Start Date: 10/10/21 Status: Ordered sildenafil 100 mg oral tablet 1 tablet = 100 mg, By Mouth, Daily, 1 hour before sexual activity, # 20 tablet, 11 Refills, Maintenance, 03/07/21 6:49:00 EDT, Tablet, [place], [place] - [id number], Partial fill upon patient request if the prescription is for a sched... Start Date: 03/07/21 Status: Ordered varenicline 1mg tablet 1 tablet = 1 mg, By Mouth, Daily, 0.5 tab daily x 3 days then 0.5 tab BID x 3 days then 1 tab BID, # 30 tablet, 4 Refills, Maintenance, 11/13/21 15:15:00 EST, Tablet, [place], [place] - [id number], Partial fill upon patient request if... 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
--- OUTSIDE RECORDS SUMMARY | 2023-07-12 20:13 | XMS_ITS | Continuity of Care Document ---
Author Name Unknown Organization [facility] Address [address] [place] [address]- Care Team Providers Care Corporate Associate Attorney Name Role Phone Namrata Prieto MD Primary Care Physician [phone] [facility]counter [facility] Date[facility]s): 10/18/21 - 12/10/21 [facility] [address] [place], [place] [address] Attending Physician: Namrata Prieto MD Admitting [...] 13:14:00 EST, Powder, Route to Pharmacy Electronically, [id number], [facility]... Start Date: 08/21/21 Stop Date: 01/18/22 Status: Ordered Albuterol (Eqv-ProAir HFA) 90 mcg/inh inhalation aerosol 2 puffs, Inhalation, Every 6 hours, # 8.5 Gm, 11 Refills, 08/25/21 12:34:00 EST, [facility], [facility] [id number], 25, 2 puffs Inhalation Every 6 hours, 173, cm, 08/25/21 12:31:00 EST, Height, 84, kg, 04/19/21 2:36:00 EDT, Dry Weight Start Date: 08/25/21 Status: Ordered amLODIPine 10 mg oral tablet 10 mg, 1, tablet, By Mouth, Daily, # 30 tablet, Refills 11, Tot. Refills 11, Maintenance, 08/27/21 16:46:00 EST, Route to Pharmacy Electronically, [facility], [place] - [id number], 173,cm, 08/25/21 12:31:00 EST, Height, 84, kg, 04/19/21... Start Date: 08/27/21 Status: Ordered aspirin 81 mg oral tablet, chewable 81 mg, 1, tablet, By Mouth, Daily, # 120 tablet, Refills 3, Tot. Refills 3, Maintenance, 10/02/21 11:47:00 EST, Route to Pharmacy Electronically, [facility], [place] - [id number], Partial fill upon patient request if the prescription is... Start Date: 10/02/21 Stop Date: 01/25/23 Status: Ordered atorvastatin 80 mg oral tablet 1 tablet = 80 mg, By Mouth, Daily, # 30 tablet, 11 Refills, Maintenance, 11/07/21 14:34:00 EST, Tablet, [facility], [place] - [id number], Partial fill upon patient request if the prescription is for a schedule II opioid drug., 170, cm, 0... Start Date: 11/07/21 Status: Ordered atovaquone 750 mg/5 mL oral suspension 10 mL = 1,500 mg, By Mouth, Daily, for 60 days, # 600 mL, 11 Refills, Acute 10/28/23 14:35:00 EST, 11/07/21 14:35:00 EST, Suspension, [facility], [place] - [id number], Pls cancel bactrim prescription. Atovaquone to replace bactrim, 170,... Start Date: 11/07/21 Stop Date: 10/28/23 Status: Ordered Biktarvy oral tablet 1 tablet, By Mouth, Daily, # 30 tablet, 11 Refills, [facility], 30, TAKE ONE TABLET BY [...] 12/02/21 16:54:00 EDT, Route to Pharmacy Electronically, [facility] [place], [place] - [id number], Partial fill upon pilar... Start Date: 12/02/21 [...] FOR CONSTIPATION, # 60 each, 2 Refills, [facility], 170, cm, 10/10/21 13:45:00 EST, Height, 110, kg, 09/29/21 21:14:00 EST, Dry Weight Start Date: 12/01/21 Status: Ordered hydrocortisone 0.5% topical cream See Instructions, use sparingly on face, use on all other affected areas, # 28 Gm, 11 Refills, Maintenance, 03/07/21 6:50:00 EDT, [facility] [id number], use sparingly on face, use on all other affected areas, 174, cm, 01/13/21... Start Date: 03/07/21 Status: Ordered Incruse Ellipta 62.5 mcg/inh inhalation powder 1 puffs, Inhalation, Every 24 hours, doses should be taken AT least 24 HOURS APART, # 30 Unknown, 11 Refills, 08/25/21 12:34:00 EST, [facility] [id number], 173, cm, 08/25/21 12:31:00 EST, Height, 84, kg, 04/19/21 2:36:00 EDT,... Start Date: 08/25/21 Status: Ordered ketoconazole 2% topical cream 1 application, Topically, Daily, # 30 Gm, 11 Refills, Maintenance, 12/02/21 16:56:00 EDT, [facility] [id number], 1 application Topically Daily, 170, cm, 10/10/21 [...] 0 Refills, Maintenance, 11/11/21 17:22:00 EST, Tablet, [facility] [id number], 170, cm, 10/10/21 13:45... Start Date: 11/11/21 Stop Date: 12/11/21 Status: Ordered multivitamin with minerals Calcium and Magnesium oral tablet 1 tablet, By Mouth, Daily, # 30 tablet, 11 Refills, Maintenance, 03/07/21 6:51:00 EDT, Tablet, [facility] [id number], 1 tablet By Mouth Daily, 174, cm, 01/13/21 8:20:00 EDT, Height, 93, kg, 01/08/21 18:17:00 EDT, Dry Weight Start Date: 03/07/21 Status: Ordered Narcan 4 mg/0.1 mL nasal spray See Instructions, 4 mg Once may repeat every 2 to 3 minutes until patient responds, # 2 each, 1 Refills, Soft Stop, 08/24/19 9:41:00 EST, [place], [place] -, MAMADOU García to miner pick for Pt., 170, cm, 08/24/19 9:21:00 EST, Height, 66.36,... Start Date: 08/24/19 Status: Ordered Nicotine 2 mg gum 1 each = 2 mg, Chew, Every 2 hours, PRN as needed for smoking cessation, for 4 week(s), # 160 each,11 Refills, Acute 09/11/22 12:53:00 EST, 10/10/21 12:53:00 EST, Gum, [facility] [id number], Partial fill upon patient request... Start Date: [...] Maintenance, 08/21/21 13:33:00 EST, DIS Tablet, [facility] [id number], Partial fill upon patient request if the [...] 11:47:00 EST, Route to Pharmacy Electronically, [facility] [id number], Partial fill upon patient request if the prescription is f... Start Date: 10/02/21 Stop Date: 12/31/21 Status: Ordered polyethylene glycol 3350 oral powder for reconstitution See Instructions, DISSOLVE 17grams powder IN WATER BEFORE drinking 2 (two) times a day NEEDED FOR CONSTIPATION, # 510 Gm, 11 Refills, [facility], 30, DISSOLVE 17grams powder IN WATER BEFORE drinking 2 (two) times a day NEEDED FOR CONSTIPATI... Start Date: 09/03/21 Status: Ordered polyethylene glycol 3350 oral powder for reconstitution = 17 Gm, By Mouth, 2 times a day, PRN Constipation, dissolve in water before taking, # 527 Gm, 3 Refills, Maintenance, 12/02/21 16:55:00 EDT, REC Powder, [facility] [id number], 17 Gm By Mouth 2 times a day,x30 days,PRN:Constip... Start Date: 12/02/21 Stop Date: 04/01/22 Status: Ordered rOPINIRole 0.5 mg oral tablet 1 tablet = 0.5 mg, By Mouth, Daily at bedtime, 1 to 3 hours before bedtime, # 30 tablet, 11 Refills, Maintenance, 08/21/21 13:32:00 EST, Tablet, [facility] [id number], Partial fill upon patient request if the prescription is f... Start Date: 08/21/21 Status: Ordered Senna 8.6 mg oral tablet 1 or 2 tablets, By Mouth, Daily at bedtime, PRN, # 60 tablet, Refills 5, Tot. Refills 5, Maintenance, Constipation, 10/10/21 14:43:00 EST, Route to Pharmacy Electronically, [facility], [place] - [id number] Tablet, Partial fill upon patie... Start Date: 10/10/21 Status: Ordered sildenafil 100 mg oral tablet 1 tablet = 100 mg, By Mouth, Daily, 1 hour before sexual activity, # 20 tablet, 11 Refills, Maintenance, 03/07/21 6:49:00 EDT, Tablet, [facility] [id number], Partial fill upon patient request if the prescription is for a sched... Start Date: 03/07/21 Status: Ordered varenicline 1mg tablet 1 tablet = 1 mg, By Mouth, Daily, 0.5 tab daily x 3 days then 0.5 tab BID x 3 days then 1 tab BID, # 30 tablet, 4 Refills, Maintenance, 11/13/21 15:15:00 EST, Tablet, [facility] [id number], Partial fill upon patient request if... 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
--- OUTSIDE RECORDS SUMMARY | 2023-07-12 20:13 | XMS_ITS | Continuity of Care Document ---
Author Name Unknown Organization [facility] Address [address] [place] [address]- Care Team Providers Care Command Post Craftsman Name Role Phone Conner QUEEN, Namrata Agarwal Primary Care Physician [phone] Encounter [facility] Date(s): 03/11/23 - 04/18/23 [facility] [address] [place] [id number] Attending Physician: Not on Staff, Attending [...] 02/16/23 10:45:00 EDT, Route to Pharmacy Electronically, [facility] - [place], [place] - [id number], 173, cm, 01/21/23 11:36:00 EDT, Height, 93.18, kg, ... Start Date: 02/16/23 Status: Ordered aspirin 81 mg oral tablet, chewable 81 mg, 1, tablet, By Mouth, Daily, # 90 tablet, Refills 3, Tot. Refills 3, Maintenance, 02/16/23 10:45:00 EDT, Route to Pharmacy Electronically, [facility] [id number], Partial fill upon patient request if the prescription is f... Start Date: 02/16/23 Status: Ordered atorvastatin 80 mg oral tablet 1 tablet = 80 mg, By Mouth, Daily, # 90 tablet, 3 Refills, Maintenance, 02/16/23 10:45:00 EDT, Tablet, [facility] [id number], Partial fill upon patient request if the prescription is for a schedule II opioid drug., 173, cm, 05... Start Date: 02/16/23 Status: Ordered Biktarvy oral tablet 1 tablet, By Mouth, Daily, must get appt and labs for refills, # 30 tablet, 0 Refills, Maintenance,12/16/22 19:18:00 EDT, [facility] [id number], 30, 1 tablet By Mouth Daily,Instr:must get appt and labs for refills, 173, cm, 0... Start Date: 12/16/22 Status: Ordered Colace sodium 100 mg oral capsule 100 mg, 1, capsule, By Mouth, 2 times a day, PRN, # 180 capsule, Refills 3, Tot. Refills 3, Maintenance, for constipation, 02/16/23 10:45:00 EDT, Route to Pharmacy Electronically, [facility] [id number], Partial fill upon patie... Start Date: 02/16/23 Status: Ordered EpiPen 2-Devin 0.3 mg injectable kit = 0.3 mg, Intramuscular, Once, may repeat if necessary, # 2 each, 1 Refills, Soft Stop, 04/14/23 14:07:00 EDT, [facility] [id number], Partial fill upon patient request if theprescription is for a schedule II opioid drug., 176... Start Date: 04/14/23 Status: Ordered fluticasone-salmeterol 250 mcg-50 mcg inhalation powder 1, puffs, Inhalation, 2 times a day, # 3 each, Refills 3, Tot. Refills 3, Maintenance, 02/16/23 10:45:00 EDT, Powder, Route to Pharmacy Electronically, [id number], [place], [place] - [id number], 173, cm, 01/04... Start Date: 02/16/23 Status: Ordered Incruse Ellipta 62.5 mcg/inh inhalation powder 1 puffs, Inhalation, Every 24 hours, # 3 each, 3 Refills, Maintenance, 02/16/23 10:45:00 EDT, [place], [place] - [id number], 173, cm, 01/21/23 11:36:00 EDT, Height, 93.18, kg, 08/12/22 0:40:00 EST, Dry Weight Start Date: 02/16/23 Status: Ordered [place] 200 mg, By Mouth, Daily at bedtime, [...] tablet, 3 Refills,Maintenance, 02/16/23 10:45:00 EDT, Tablet, [facility] [id number], Partialfill upon patient request if the prescription is fo... Start Date: 02/16/23 Status: Ordered Ventolin HFA 108 mcg/inh inhalation aerosol with adapter 2 puffs, Inhalation, 4 times a day, PRN for wheezing, # 3 each, 3 Refills, Maintenance, 02/16/23 10:45:00 EDT, Aerosol, [facility] [id number], Partial fill upon patient request if the prescription is for a schedule II opioid d... Start Date: 02/16/23 Status: Ordered Vitamin D3 1000 intl units oral capsule 1 capsule = 25 mcg, By Mouth, Daily, # 90 capsule, 3 Refills, Maintenance, 02/16/23 10:45:00 EDT, Capsule, [facility] [id number], D/c vitamin high dosed, 173, cm, 01/21/23 [...] 01/2019 Confirmed Active Depression - Olinda dawn, [facility] Confirmed Active Diastolic dysfunction 1 [...] Team Personnel Name: Jadiel Watson RN Position: [facility] ED RN W/OE and Tasks Member Role: Primary Care Nurse Name: Dede Mccloud RN Position: [facility] RN Member Role: Primary Care Nurse Name: Judy Gonzales RN Position: [facility] RN Member Role: Primary Care Nurse Name: Jake Moon Position: [facility] RN Supv Member Role: Primary Care Nurse Name: Enma Manriquez RN Position: [facility] AMB Nurse Member Role: Primary Care Nurse Name: Zuhair Lopez RN Position: [facility] RN Member Role: Primary Care Nurse Name: Edie Bob RN Position: [facility] RN Member Role: Primary Care Nurse Name: Lisbet Gardiner RN Position: [facility] RN Member Role: Primary Care Nurse Name: Namrata Prieto MD Position: [facility] Physician - Primary Care Member Role: PCP Address: Address: [address] [place] [id number]- Name: Carolina Valero RN Position: [facility] RN Member Role: Primary Care Nurse Name: Nishi San RN Position: [facility] RN Member Role: Primary Care Nurse Name: Micky Boyd RN Position: [facility] RN Member Role: Primary Care Nurse Name: Lauri Combs NP Position: Reference Physician Member Role: Primary Care Nurse Address: Address: [address] [place] [address] [address] [facility] [place] [address]- Name: Griselda Rand Position: [facility] RN Supv Member Role: Primary Care Nurse Care Team Related Persons Name: LUIS SAN Address: [place] [address] Name: BROOKE OWEN Address: home [address] [address] Name: KARYN OWEN Address: home [address] [place] [address] Name: DOMINGO LEONE Address: home [address] [place] [address]
--- OUTSIDE RECORDS SUMMARY | 2023-07-12 20:13 | XMS_ITS | Continuity of Care Document ---
Author Name Unknown Organization [facility] ter Address [address] [place] [address]- Care Team Providers Care Cashier And Salesperson Name Role Phone Long SKIP PIT WORKER, Giovanna Bernard Primary Care Physician Encounter [facility] [place] Date(s): 09/09/19 - 09/11/[address] [address]- [facility] Encounter Diagnosis Acute depression(Final) - 09/11/19 Discharge Disposition: Transfer to [facility] Facility Attending Physician: Siva Alexander MD Admitting Physician: Siva Alexander MD Referring Physician: Not on Staff, Referring [...] 08/24/19 9:40:00 EST, Route to Pharmacy Electronically, [facility] - [place], [place] -, 170, cm, 08/24/19 9:21:00 EST, [...] 08/18/20 9:40:00 EST, 08/24/19 9:40:00 EST, Suspension, [place], [place] -, Pls cancel bactrim prescription. Atovaquone to replace bactrim, 170, cm, 08/24/19 9... Start Date: 08/24/19 Stop Date: 08/18/20 Status: Ordered Biktarvy oral tablet 1 tablet, By Mouth, Daily, # 30 tablet, 0 Refills, Maintenance, 09/11/19 14:09:00 EST, Tablet Start Date: 09/11/19 Status: Ordered Biktarvy oral tablet 1 tablet, By Mouth, Daily, # 30 tablet, 5 Refills, Maintenance, 08/24/19 9:40:00 EST, Tablet, [place], [place] -, 1 tablet By Mouth Daily,x30 [...] 06/08/19 18:24:18 EDT, Route to Pharmacy Electronically, [id number], [place], [place] - Start Date: 06/08/19 Status: Ordered [...] 02/08/20 9:42:00 EDT, 08/24/19 9:42:00 EST, Tablet, Karlos [facility] ID -, Decrease in dose., 170, cm, 08/24/19 [...] Refills, Soft Stop, 08/24/19 9:41:00 EST, Karlos [facility], [place] -, VNA Raquel to sheepskin pickler for Pt., 170, cm, 08/24/19 9:21:00 [...] Opiate dependence(Confirmed) Active Pancytopenia(Confirmed) Active Emphysema/COPD(Confirmed) Active Results Orders for Microbiology Reports Name Date Blood Culture 09/09/19 Blood Culture #2 09/09/19 Microbiology Reports TEST:Blood Culture, Second Order STATUS:Unauthenticated BODY SITE: SOURCE:Blood COLLECTED DATE/TIME:09/09/19 8:09 PM Blood Culture, Second Order SPECIMEN DESCRIPTION : BLOOD RT WRIST SPECIAL REQUESTS : NONE CULTURE : NO GROWTH AFTER 48 HOURS REPORT STATUS : PRELIMINARY REPORT TEST:Blood Culture STATUS:Unauthenticated BODY SITE: SOURCE:Blood COLLECTED DATE/TIME:09/09/19 7:07 PM Blood Culture SPECIMEN DESCRIPTION : BLOOD RAC SPECIAL REQUESTS : NONE CULTURE : NO GROWTH AFTER 48 HOURS REPORT STATUS : PRELIMINARY REPORT Radiology Reports * Exam Date Time Procedure Performing Provider Status 09/09/19 8:46 PM Chest 2 Views Frontal and Lat Juansuzanne Sobeida; Auth (Verified) Notes: (Chest 2 Views Frontal and Lat) Reason For Exam: Shortness of Breath, Fever;Other: RESULT: Chest 2 Views Frontal and Lat Chest 2 Views Frontal and Lat Reason: Other:; Shortness of Breath, Fever; Clinical Question(s): Pneumonia; Hx of Present Illness:SI; Other Objective Findings: Patient lethargic, nodding off while talking. Responds to loud verbalcommands. Breathing even and unlabored. Unkempt and soaking wet. COMPARISON: 12/20/2018 x-ray. FINDINGS: LINES AND TUBES: None. LUNGS AND PLEURA: Low lung volumes with mild basilar atelectasis. Lungs are otherwise clear with no consolidation. No pleural effusion. No pneumothorax. HEART, MEDIASTINUM AND GARRY: Heart is normal in size. Normal mediastinal and hilar contour. BONES AND SOFT TISSUES: No acute abnormality. IMPRESSION: No acute abnormality. Study limited by low lung volumes with bibasilar atelectasis. WSN: [id number] Dictated By: Juvenal Quinonez MD Dictated Date/Time: 09/09/19 8:53 pm Reviewed By: Juvenal Quinonez MD Signed By: Juvenal Quinonez MD Signed Date/Time: 09/09/19 8:53 pm Transcribed By: LIZZIE Transcribed Date/Time: 09/09/19 8:53 pm Vital Signs Most recent to oldest [Reference Range]: 1 2 3 Oxygen Saturation [94-100 %] 95 % (09/11/19 7:28 AM) 95 % (09/11/19 2:53 AM) 96 % (09/10/19 4:30 PM) Pulse Rate [55-90 bpm] 59 bpm (09/11/19 7:28 AM) 106 bpm *H* (09/11/19 2:53 AM) 56 bpm (09/10/19 4:30 PM) Blood Pressure [90-138/55-84 mm Hg] 108/68mm Hg (09/11/19 8:37 AM) 108/68mm Hg (09/11/19 7:28 AM) 99/57mm Hg (09/11/19 2:53 AM) Respiratory Rate [16-30 br/min] 16 br/min (09/11/19 7:28 AM) 18 br/min (09/11/19 2:53 AM) 18 br/min (09/10/19 4:30 PM) Temperature [96.8-100.4 DegF] 97.8 DegF (09/11/19 7:28 AM) 97.7 DegF (09/10/19 4:30 PM) 98.0 DegF (09/10/19 1:53 AM) Mode of Delivery (Oxygen) Room air (09/11/19 7:28 AM) Room air (09/11/19 2:53 AM) Room air (09/10/19 4:30 PM) Blood pressure sites Arm, right (09/11/19 7:28 AM) Arm, right (09/11/19 2:53 AM) Arm, right (09/10/19 4:30 PM) Temperature Route Oral (09/11/19 7:28 AM) Oral (09/10/19 4:30 PM) Oral (09/09/19 6:21 PM) Social History Social History Type Response Smoking Status 10 or more cigarette s (1/2 pack or more)/day in last 30 days entered on: 03/10/19 Sex
--- OUTSIDE RECORDS SUMMARY | 2023-07-12 20:13 | XMS_ITS | Continuity of Care Document ---
Author Name Unknown Organization [facility] Address [address] [place] [address]- Care Team Providers Care Plastic Parts Fabricator Name Role Phone Calvin WELLS, Giovanna Bernard Primary Care Physician En[place] [facility] [place] Date[place]s): 04/13/19 - 08/26/19 [facility] [address] [place] [address]- Attending Physician: Isidoro Neely MD Admitting Physician: [...] 08/24/19 9:40:00 EST, Route to Pharmacy Electronically, [place], [place] -, 170, cm, 08/24/19 9:21:00 EST, Height, 66.36, kg, 03/10/19 16:51:00 EDT... Start Date: 08/24/19 Stop Date: 02/20/20 Status: Ordered atovaquone 750 mg/5 mL oral suspension 10 mL = 1,500 mg, By Mouth, Daily, for 60 days, # 600 mL, 5 Refills, Acute 08/18/20 9:40:00 EST, 08/24/19 9:40:00 EST, Suspension, [place], [place] -, Pls cancel bactrim prescription. Atovaquone to replace bactrim, 170, cm, 08/24/19 9... Start Date: 08/24/19 Stop Date: 08/18/20 Status: Ordered Biktarvy oral tablet 1 tablet, By Mouth, Daily, # 30 tablet, 5 Refills, Maintenance, 08/24/19 9:40:00 EST, Tablet, [place], [place] -, 1 tablet By Mouth Daily,x30 [...] 06/08/19 18:24:18 EDT, Route to Pharmacy Electronically, [id number], [place], [place] - Start Date: 06/08/19 Status: Ordered fluconazole 200 mg oral tablet 1 tablet = 200 mg, By Mouth, Daily, for 28 days, # 28 tablet, 5 Refills, Acute 02/08/20 9:42:00 EDT, 08/24/19 9:42:00 EST, Tablet, [place], [place] -, Decrease in dose., 170, cm, [...] 1 Refills, Soft Stop, 08/24/19 9:41:00 EST, [facility] - [place], [place] -, MAMADOU García to pick up attendant for Pt., 170, cm, 08/24/19 9:21:00 EST, [...]
--- OUTSIDE RECORDS SUMMARY | 2023-07-12 20:13 | XMS_ITS | Continuity of Care Document ---
Author Name Unknown Organization [facility] Address [address] [place] [address]- Care Team Providers Care Rn Child Name Role Phone Conner QUEEN, Namrata Agarwal Primary Care Physician [phone] Encounter [facility] Date(s): 09/29/22 - 10/29/22 [facility] [address] [place] [address]- Allergies, Adverse Reactions, Alerts Substance Reaction Severity Status shellfish Active Bee Stings Active Suboxone migraine [...] 8:46:00 EST, Powder, Route to Pharmacy Electronically, [id number], [facility] - Spr... Start Date: 07/20/22 Stop Date: 07/15/23 Status: Ordered Albuterol (Eqv-ProAir HFA) 90 mcg/inh inhalation aerosol 2 puffs, Inhalation, Every 6 hours, # 8.5 Gm, 11 Refills, 08/25/21 12:34:00 EST, [facility] [id number], 25, 2 puffs Inhalation Every 6 hours, 173, cm, 08/25/21 12:31:00 EST, Height, 84, kg, 04/19/21 2:36:00 EDT, Dry Weight Start Date: 08/25/21 Status: Ordered amLODIPine 10 mg oral tablet 10 mg, 1, tablet, By Mouth, Daily, # 30 tablet, Refills 11, Tot. Refills 11, Maintenance, 07/20/22 8:43:00 EST, Route to Pharmacy Electronically, [facility] [id number], 173, cm, 05/10/22 20:46:00 EDT, Height, 95.5, kg, ... Start Date: 07/20/22 Status: Ordered Asperflex 4% topical film 1 patch, Topically, Daily, for 30 days, # 30 patch, 11 Refills, Acute 03/12/23 14:41:00 EDT, 03/17/22 14:41:00 EDT, [facility] [id number], Partial fill upon patient request if the prescription is for a schedule II opioid drug.... Start Date: 03/17/22 Stop Date: 03/12/23 Status: Ordered aspirin 81 mg oral tablet, chewable 81 mg, 1, tablet, By Mouth, Daily, # 30 tablet, Refills 11, Tot. Refills 11, Maintenance, 07/20/22 8:43:00 EST, Route to Pharmacy Electronically, [facility] [id number], Partial fill upon patient request if the prescription is... Start Date: 07/20/22 Stop Date: 11/12/23 Status: Ordered atorvastatin 80 mg oral tablet 1 tablet = 80 mg, By Mouth, Daily, # 30 tablet, 11 Refills, Maintenance, 07/20/22 8:43:00 EST, Tablet, [facility] [id number], Partial fill upon patient request if the prescription is for a schedule II opioid drug., 173, cm, 09... Start Date: 07/20/22 Status: Ordered Biktarvy oral tablet 1 tablet, By Mouth, Daily, # 30 tablet, 5 Refills, Maintenance, 07/20/22 8:36:00 EST, [facility], [facility] [id number], 30, 1 tablet By Mouth Daily, 173, [...] 1 Refills, Soft Stop, 03/05/22 10:37:00 EDT, [facility] [id number], Partial fill upon patient request if the [...] Refills, Maintenance, 03/07/21 6:50:00 EDT, [facility] [id number], use sparingly on face, use on all other affected areas, 174, cm, 01/13/21... Start Date: 03/07/21 Status: Ordered Incruse Ellipta 62.5 mcg/inh inhalation powder See Instructions, INHALE 1 PUFF BY MOUTH INTO THE lungs EVERY 24 HOURS. doses should be taken AT least 24 HOURS APART, # 30 Unknown, 5 Refills, Maintenance, 09/02/22 20:23:00 EST, [facility], 173, cm, 08/12/22 0:40:00 EST, Height, 93.18, kg, 12/0... Start Date: 09/02/22 Status: Ordered ketoconazole 2% topical cream 1 application, Topically, Daily, # 30 Gm, 11 Refills, Maintenance, 04/20/22 9:23:00 EDT, [facility], [facility] [id number], 1 application Topically Daily, 173, cm, 12/05/21 17:38:00 EDT,Height, 127, kg, 12/05/21 17:38:00 EDT, Dry Weight Start Date: 04/20/22 Status: Ordered Lidoderm 5% film 1 patch, Topically, Daily, # 30 patch, 11 Refills, Maintenance, 03/19/22 21:12:00 EDT, [facility], [place] - [id number], Partial fill upon patient request if the [...] 11 Refills, Maintenance, 07/20/22 8:43:00 EST, Tablet, [facility], [place] - [id number], 1 tablet By Mouth Daily, 173, cm, 05/10/22 20:46:00 EDT,Height, 95.5, kg, 05/10/22 20:46:00 EDT, Dry Weight Start Date: 07/20/22 Status: Ordered Narcan 4 mg/0.1 mL nasal spray See Instructions, 4 mg Once may repeat every 2 to 3 minutes until patient responds, # 2 each, 3 Refills, Soft Stop, 03/05/22 10:07:00 EDT, [facility], [facility] [id number], 173, cm, 12/05/21 17:38:00 EDT, Height, 127, kg, 12/05/21 17:38... Start Date: 03/05/22 Status: Ordered ondansetron 4 mg oral tablet, disintegrating 1 tablet = 4 mg, By Mouth, Every 8 hours, PRN as needed for nausea/vomiting, # 12 tablet, 11 Refills, Maintenance, 08/21/21 13:33:00 EST, DIS Tablet, [facility] [id number], Partial fill upon patient request if the [...] Refills, Soft Stop, 10/27/22 12:34:00 EST, Lotion, [facility] [id number], Partial fill upon patient request if the prescription... Start Date: 10/27/22 Status: Ordered polyethylene glycol 3350 oral powder for reconstitution = 17 Gm, By Mouth, 2 times a day, PRN Constipation, dissolve in water before taking, # 527 Gm, 3 Refills, Maintenance, 12/02/21 16:55:00 EDT, REC Powder, [facility], [place] - [id number], 17 Gm By Mouth 2 times a day,x30 days,PRN:Constip... Start Date: 12/02/21 Stop Date: 04/01/22 Status: Ordered rOPINIRole 0.5 mg oral tablet 1 tablet = 0.5 mg, By Mouth, Daily at bedtime, 1 to 3 hours before bedtime, # 30 tablet, 11 Refills, Maintenance, 07/20/22 8:43:00 EST, Tablet, [facility] [id number], Partialfill upon patient request if the prescription is fo... Start Date: 07/20/22 Status: Ordered sildenafil 100 mg oral tablet 1 tablet = 100 mg, By Mouth, Daily, 1 hour before sexual activity, # 20 tablet, 11 Refills, Maintenance, 04/20/22 9:24:00 EDT, Tablet, [facility] [id number], disreguard last script for 0.5 tab, 173, cm, 12/05/21 17:38:00 EDT,... Start Date: 04/20/22 Status: Ordered varenicline 1mg tablet 1 tablet = 1 mg, By Mouth, Daily, 0.5 tab daily x 3 days then 0.5 tab BID x 3 days then 1 tab BID, # 30 tablet, 4 Refills, Maintenance, 09/04/22 15:20:00 EST, Tablet, [facility] [id number], Partial fill upon patient request if... Start Date: 09/04/22 Status: Ordered Ventolin HFA 108 mcg/inh inhalation aerosol with adapter 2 puffs, Inhalation, 4 times a day, PRN for wheezing, # 1 each, 11 Refills, Maintenance, 07/20/22 8:44:00 EST, Aerosol, [facility] [id number], Partial fill upon patient request if the [...] 06/04/22 17:32:00 EDT, Capsule, [facility] - [place], [place] - [id number], D/c vitamin high dosed, 173, cm, 05/10/22 [...] - 01/2019 Confirmed Active Depression - [facility], [facility] Confirmed Active Diastolic dysfunction 1 Confirmed [...] Team Personnel Name: Jadiel Watson RN Position: [facility] ED RN W/OE and Tasks Member Role: Primary Care Nurse Name: Dede Mccloud RN Position: [facility] RN Member Role: Primary Care Nurse Name: Judy Gonzales RN Position: [facility] RN Member Role: Primary Care Nurse Name: Enma Manriquez RN Position: [facility] RN Member Role: Primary Care Nurse Name: Zuhair Lopez RN Position: [facility] RN Member Role: Primary Care Nurse Name: Cathryn Allen RN Position: [facility] RN Member Role: Primary Care Nurse Name: Edie Bob RN Position: S RN Member Role: Primary Care Nurse Name: Lisbet Gardiner RN Position: [facility] RN Member Role: Primary Care Nurse Name: Namrata Prieto MD Position: [facility] Primary Care Physician Member Role: PCP Address: Address: [address] [place] [address], [facility] [place] [address]- Name: Carolina Valero RN Position: [facility] RN Member Role: Primary Care Nurse Name: Nishi San RN Position: [facility] RN Member Role: Primary Care Nurse Name: Micky Boyd RN Position: [facility] RN Member Role: Primary Care Nurse Name: Lauri Combs NP Position: Reference Physician Member Role: Primary Care Nurse Address: Address: [address] [place] [address] [address] Clinical [facility] [place] [address]- Care Team Related Persons Name: LUIS SAN Address: [place] [address] Name: BROOKE OWEN Address: home [address] [address] Name: KARYN OWEN Address: home [address] [place] [address] Name: DOMINGO LEONE Address: home [address] [place] [address]
--- OUTSIDE RECORDS SUMMARY | 2023-07-12 20:13 | XMS_ITS | Continuity of Care Document ---
Author Name Unknown Organization [facility] Address [address] [place] [address]- Care Team Providers Care Routing Clerk Name Role Phone Conner QUEEN, Namrata Agarwal Primary Care Physician [phone] Encounter [facility] Date(s): 09/22/22 - 10/22/22 [facility] [address] [place] [address]- Allergies, Adverse Reactions, Alerts Substance Reaction Severity [...] 8:46:00 EST, Powder, Route to Pharmacy Electronically, [id number], [facility] - Spr... Start Date: 07/20/22 Stop Date: 07/15/23 Status: Ordered Albuterol (Eqv-ProAir HFA) 90 mcg/inh inhalation aerosol 2 puffs, Inhalation, Every 6 hours, # 8.5 Gm, 11 Refills, 08/25/21 12:34:00 EST, [facility] [id number], 25, 2 puffs Inhalation Every 6 hours, 173, cm, 08/25/21 12:31:00 EST, Height, 84, kg, 04/19/21 2:36:00 EDT, Dry Weight Start Date: 08/25/21 Status: Ordered amLODIPine 10 mg oral tablet 10 mg, 1, tablet, By Mouth, Daily, # 30 tablet, Refills 11, Tot. Refills 11, Maintenance, 07/20/22 8:43:00 EST, Route to Pharmacy Electronically, [facility] [id number], 173, cm, 05/10/22 20:46:00 EDT, Height, 95.5, kg, ... Start Date: 07/20/22 Status: Ordered Asperflex 4% topical film 1 patch, Topically, Daily, for 30 days, # 30 patch, 11 Refills, Acute 03/12/23 14:41:00 EDT, 03/17/22 14:41:00 EDT, [facility] [id number], Partial fill upon patient request if the prescription is for a schedule II opioid drug.... Start Date: 03/17/22 Stop Date: 03/12/23 Status: Ordered aspirin 81 mg oral tablet, chewable 81 mg, 1, tablet, By Mouth, Daily, # 30 tablet, Refills 11, Tot. Refills 11, Maintenance, 07/20/22 8:43:00 EST, Route to Pharmacy Electronically, [facility] [id number], Partial fill upon patient request if the prescription is... Start Date: 07/20/22 Stop Date: 11/12/23 Status: Ordered atorvastatin 80 mg oral tablet 1 tablet = 80 mg, By Mouth, Daily, # 30 tablet, 11 Refills, Maintenance, 07/20/22 8:43:00 EST, Tablet, [facility] [id number], Partial fill upon patient request if the prescription is for a schedule II opioid drug., 173, cm, 09... Start Date: 07/20/22 Status: Ordered Biktarvy oral tablet 1 tablet, By Mouth, Daily, # 30 tablet, 5 Refills, Maintenance, 07/20/22 8:36:00 EST, [facility], [facility] [id number], 30, 1 tablet By Mouth Daily, 173, [...] Refills, Soft Stop, 03/05/22 10:37:00 EDT, [facility] [id number], Partial fill upon patient request if the [...] 11 Refills, Maintenance, 03/07/21 6:50:00 EDT, [facility] [id number], use sparingly on face, use on all other affected areas, 174, cm, 01/13/21... Start Date: 03/07/21 Status: Ordered Incruse Ellipta 62.5 mcg/inh inhalation powder See Instructions, INHALE 1 PUFF BY MOUTH INTO THE lungs EVERY 24 HOURS. doses should be taken AT least 24 HOURS APART, # 30 Unknown, 5 Refills, Maintenance, 09/02/22 20:23:00 EST, [facility], 173, cm, 08/12/22 0:40:00 EST, Height, 93.18, kg, 12/0... Start Date: 09/02/22 Status: Ordered ketoconazole 2% topical cream 1 application, Topically, Daily, # 30 Gm, 11 Refills, Maintenance, 04/20/22 9:23:00 EDT, [facility], [facility] [id number], 1 application Topically Daily, 173, cm, 12/05/21 17:38:00 EDT,Height, 127, kg, 12/05/21 17:38:00 EDT, Dry Weight Start Date: 04/20/22 Status: Ordered Lidoderm 5% film 1 patch, Topically, Daily, # 30 patch, 11 Refills, Maintenance, 03/19/22 21:12:00 EDT, [facility], [place] - [id number], Partial fill upon patient request if the [...] 11 Refills, Maintenance, 07/20/22 8:43:00 EST, Tablet, [facility], [place] - [id number], 1 tablet By Mouth Daily, 173, cm, 05/10/22 20:46:00 EDT,Height, 95.5, kg, 05/10/22 20:46:00 EDT, Dry Weight Start Date: 07/20/22 Status: Ordered Narcan 4 mg/0.1 mL nasal spray See Instructions, 4 mg Once may repeat every 2 to 3 minutes until patient responds, # 2 each, 3 Refills, Soft Stop, 03/05/22 10:07:00 EDT, [facility] [id number], 173, cm, 12/05/21 17:38:00 EDT, Height, 127, kg, 12/05/21 17:38... Start Date: 03/05/22 Status: Ordered ondansetron 4 mg oral tablet, disintegrating 1 tablet = 4 mg, By Mouth, Every 8 hours, PRN as needed for nausea/vomiting, # 12 tablet, 11 Refills, Maintenance, 08/21/21 13:33:00 EST, DIS Tablet, [facility] [id number], Partial fill upon patient request if the [...] Maintenance, 12/02/21 16:55:00 EDT, REC Powder, [facility] [id number], 17 Gm By Mouth 2 times a day,x30 days,PRN:Constip... Start Date: 12/02/21 Stop Date: 04/01/22 Status: Ordered rOPINIRole 0.5 mg oral tablet 1 tablet = 0.5 mg, By Mouth, Daily at bedtime, 1 to 3 hours before bedtime, # 30 tablet, 11 Refills, Maintenance, 07/20/22 8:43:00 EST, Tablet, [facility] [id number], Partialfill upon patient request if the prescription is fo... Start Date: 07/20/22 Status: Ordered sildenafil 100 mg oral tablet 1 tablet = 100 mg, By Mouth, Daily, 1 hour before sexual activity, # 20 tablet, 11 Refills, Maintenance, 04/20/22 9:24:00 EDT, Tablet, [facility], [place] - [id number], disreguard last script for 0.5 tab, 173, cm, 12/05/21 17:38:00 EDT,... Start Date: 04/20/22 Status: Ordered varenicline 1mg tablet 1 tablet = 1 mg, By Mouth, Daily, 0.5 tab daily x 3 days then 0.5 tab BID x 3 days then 1 tab BID, # 30 tablet, 4 Refills, Maintenance, 09/04/22 15:20:00 EST, Tablet, [facility], [place] - [id number], Partial fill upon patient request if... Start Date: 09/04/22 Status: Ordered Ventolin HFA 108 mcg/inh inhalation aerosol with adapter 2 puffs, Inhalation, 4 times a day, PRN for wheezing, # 1 each, 11 Refills, Maintenance, 07/20/22 8:44:00 EST, Aerosol, [facility], [place] - [id number], Partial fill upon patient request if the [...] 11 Refills, Maintenance, 06/04/22 17:32:00 EDT, Capsule, [facility], [place] - [id number], D/c vitamin high dosed, 173, cm, 05/10/22 20:46:00 EDT, Height, 95.5, kg, 05/10/22 20:46:00 EDT... 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 Depression - [facility] Confirmed Active Diastolic dysfunction 1 [...] Team Personnel Name: Jadiel Watson RN Position: [facility] ED RN W/OE and Tasks Member Role: Primary Care Nurse Name: Dede Mccloud RN Position: [facility] RN Member Role: Primary Care Nurse Name: Judy Gonzales RN Position: [facility] RN Member Role: Primary Care Nurse Name: Enma Manriquez RN Position: [facility] RN Member Role: Primary Care Nurse Name: Zuhair Lopez RN Position: [facility] RN Member Role: Primary Care Nurse Name: Cathryn Allen RN Position: [facility] RN Member Role: Primary Care Nurse Name: Edie Bob RN Position: [facility] RN Member Role: Primary Care Nurse Name: Lisbet Gardiner RN Position: [facility] RN Member Role: Primary Care Nurse Name: Namrata Prieto MD Position: [facility] Primary Care Physician Member Role: PCP Address: Address: [address] [place] [address], -[facility] [place] [address]- Name: Carolina Valero RN Position: [facility] RN Member Role: Primary Care Nurse Name: Nishi San RN Position: [facility] RN Member Role: Primary Care Nurse Name: Micky Boyd RN Position: [facility] RN Member Role: Primary Care Nurse Name: Lauryn WELLS, Lauri Choi Position: Reference Physician Member Role: Primary Care Nurse Address: Address: [address] [place] [address] [address] Clinical & [place] [address]- [place] Care Team Related Persons Name: LUIS SAN Address: [place] [address] Name: BROOKE OWEN Address: home [address] [address] Name: KARYN OWEN Address: home [address] [place] [address] Name: DOMINGO LEONE Address: home [address] [place] [address]
--- OUTSIDE RECORDS SUMMARY | 2023-07-12 20:13 | XMS_ITS | Continuity of Care Document ---
Author Name Unknown Organization [facility] Address [address] [place] [address]- Care Team Providers Care Manager Bilingual Name Role Phone Conner QUEEN, Namrata Agarwal Primary Care Physician [facility]counter [facility] Date(s): 01/13/23 - 02/12/23 [facility] [address] [place] [address] Allergies, Adverse [...] 8:46:00 EST, Powder, Route to Pharmacy Electronically, [id number], [facility] - Spr... Start Date: 07/20/22 Stop Date: 07/15/23 Status: Ordered amLODIPine 10 mg oral tablet 10 mg, 1, tablet, By Mouth, Daily, # 30 tablet, Refills 11, Tot. Refills 11, Maintenance, 07/20/22 8:43:00 EST, Route to Pharmacy Electronically, [facility] [id number], 173, cm, 05/10/22 20:46:00 EDT, Height, 95.5, kg, 2... Start Date: 07/20/22 Status: Ordered aspirin 81 mg oral tablet, chewable 81 mg, 1, tablet, By Mouth, Daily, # 30 tablet, Refills 11, Tot. Refills 11, Maintenance, 07/20/22 8:43:00 EST, Route to Pharmacy Electronically, [facility] [id number], Partial fill upon patient request if the prescription is... Start Date: 07/20/22 Stop Date: 11/12/23 Status: Ordered atorvastatin 80 mg oral tablet 1 tablet = 80 mg, By Mouth, Daily, # 30 tablet, 11 Refills, Maintenance, 07/20/22 8:43:00 EST, Tablet, [facility] [id number], Partial fill upon patient request if the prescription is for a schedule II opioid drug., 173, cm, 09... Start Date: 07/20/22 Status: Ordered Biktarvy oral tablet 1 tablet, By Mouth, Daily, must get appt and labs for refills, # 30 tablet, 0 Refills, Maintenance,12/16/22 19:18:00 EDT, [facility] [id number], 30, 1 tablet By Mouth Daily,Instr:must get [...] 12/24/22 19:14:00 EDT, Route to Pharmacy Electronically, [facility]... Start Date: 12/24/22 Status: Ordered Crutches See [...] 1 Refills, Soft Stop, 03/05/22 10:37:00 EDT, [facility] [place], [place] - [id number], Partial fill upon patient request if the prescriptio... Start Date: 03/05/22 Status: Ordered fluticasone-salmeterol 250 mcg-50 mcg inhalation powder 1, puffs, Inhalation, 2 times a day, patient needs labs and appt before more refills, # 60 each, Refills 0, Tot. Refills 0, Maintenance, 12/16/22 19:27:00 EDT, Powder, Route to Pharmacy Electronically, [id number], [facility]... Start Date: 12/16/22 Status: Ordered [...] Gm, 11 Refills, Maintenance, 04/20/22 9:23:00 EDT, [facility] [id number], 1 application Topically Daily, 173, cm, 12/05/21 17:38:00 EDT,Height, 127, kg, 12/05/21 17:38:00 EDT, Dry Weight Start Date: 04/20/22 Status: Ordered Lidoderm 5% film 1 patch, Topically, Daily, # 30 patch, 11 Refills, Maintenance, 03/19/22 21:12:00 EDT, [facility] [id number], Partial fill upon patient request if the [...] 11 Refills, Maintenance, 07/20/22 8:43:00 EST, Tablet, [place], [place] - [id number], 1 tablet By Mouth Daily, 173, cm, 05/10/22 20:46:00 EDT,Height, 95.5, kg, 05/10/22 20:46:00 EDT, Dry Weight Start Date: 07/20/22 Status: Ordered Narcan 4 mg/0.1 mL nasal spray See Instructions, 4 mg Once may repeat every 2 to 3 minutes until patient responds, # 2 each, 3 Refills, Soft Stop, 03/05/22 10:07:00 EDT, [facility] [id number], 173, cm, 12/05/21 17:38:00 EDT, Height, 127, [...] Refills, Soft Stop, 12/24/22 11:37:00 EDT, Lotion, [facility] [id number], Partial fill upon pa... Start Date: 12/24/22 Status: Ordered polyethylene glycol 3350 oral powder for reconstitution = 17 Gm, By Mouth, 2 times a day, PRN Constipation, dissolve in water before taking, # 527 Gm, 3 Refills, Maintenance, 12/02/21 16:55:00 EDT, REC Powder, [facility] [id number], 17 Gm By Mouth 2 times a day,x30 days,PRN:Constip... Start Date: 12/02/21 Stop Date: 04/01/22 Status: Ordered rOPINIRole 0.5 mg oral tablet 1 tablet = 0.5 mg, By Mouth, Daily at bedtime, 1 to 3 hours before bedtime, # 30 tablet, 11 Refills, Maintenance, 07/20/22 8:43:00 EST, Tablet, [facility] [id number], Partialfill upon patient request if the prescription is fo... Start Date: 07/20/22 Status: Ordered Senna 8.6 mg oral tablet 1 or 2 tablets, By Mouth, Daily at bedtime, PRN, Must make appt and get labs for refills, # 180 tablet, Refills 0, Tot. Refills 0, Maintenance, Constipation, 12/16/22 19:14:00 EDT, Route to Pharmacy Electronically, [place], [place] -... Start Date: 12/16/22 Status: Ordered sildenafil 100 mg oral tablet 1 tablet = 100 mg, By Mouth, Daily, 1 hour before sexual activity, # 20 tablet, 11 Refills, Maintenance, 04/20/22 9:24:00 EDT, Tablet, [facility] [id number], disreguard last script for 0.5 tab, 173, cm, 12/05/21 17:38:00 EDT,... Start Date: 04/20/22 Status: Ordered varenicline 1mg tablet 1 tablet = 1 mg, By Mouth, Daily, 0.5 tab daily x 3 days then 0.5 tab BID x 3 days then 1 tab BID, # 30 tablet, 4 Refills, Maintenance, 09/04/22 15:20:00 EST, Tablet, [facility] [id number], Partial fill upon patient request if... Start Date: 09/04/22 Status: Ordered Ventolin HFA 108 mcg/inh inhalation aerosol with adapter 2 puffs, Inhalation, 4 times a day, PRN for wheezing, must get appt and labs for refills, # 3 each,0 Refills, Maintenance, 12/16/22 19:15:00 EDT, Aerosol, [facility] [id number], Partial fill upon patient request if the prescr... Start Date: 12/16/22 Status: Ordered Vitamin D3 1000 intl units oral capsule 1 capsule = 25 mcg, By Mouth, Daily, # 30 capsule, 11 Refills, Maintenance, 06/04/22 17:32:00 EDT, Capsule, [facility] [id number], D/c vitamin high dosed, 173, cm, 05/10/22 [...] - 01/2019 Confirmed Active Depression - [facility] Confirmed Active Diastolic dysfunction [...] Team Personnel Name: Jadiel Watson RN Position: [facility] ED RN W/OE and Tasks Member Role: Primary Care Nurse Name: Dede Mccloud RN Position: [facility] RN Member Role: Primary Care Nurse Name: Judy Gonzales RN Position: [facility] RN Member Role: Primary Care Nurse Name: Enma Manriquez RN Position: [facility] AMB Nurse Member Role: Primary Care Nurse Name: Zuhair Lopez RN Position: [facility] RN Member Role: Primary Care Nurse Name: Edie Bob RN Position: [facility] RN Member Role: Primary Care Nurse Name: Lisbet Gardiner RN Position: [facility] RN Member Role: Primary Care Nurse Name: Namrata Prieto MD Position: [facility] Physician - Primary Care Member Role: PCP Address: Address: [address] [place] [address], -Level [facility] [place] [address]- Name: Carolina Valero RN Position: [facility] RN Member Role: Primary Care Nurse Name: Nishi San RN Position: [facility] RN Member Role: Primary Care Nurse Name: Micky Boyd RN Position: [facility] RN Member Role: Primary Care Nurse Name: Lauri Combs NP Position: Reference Physician Member Role: Primary Care Nurse Address: Address: [address] [place] [address] [address] [facility] [place] [address]- [place] Care Team Related Persons Name: GARY SANY Address: [place] [address] Name: BROOKE OWEN Address: home [address] [address] Name: KARYN OWEN Address: home [address] [place] [address] Name: DOMINGO LEONE Address: home [address] [place] [address]
--- OUTSIDE RECORDS SUMMARY | 2023-07-12 20:13 | XMS_ITS | Continuity of Care Document ---
Author Name Unknown Organization [facility] Address [address] [place] [address]- Care Team Providers Care Hotel Receptionist Name Role Phone Conner QUEEN, Namrata Agarwal Primary Care Physician Encounter [facility] Date(s): 08/12/20 - 09/13/[address] [address]- Attending Physician: Isidoro Chamberlain OD Admitting Physician: Isidoro Chamberlain OD Allergies, Adverse Reactions, Alerts Substance Reaction Severity [...] 05/28/20 16:31:00 EDT, Route to Pharmacy Electronically, [facility] [id number], 171, cm, 05/28/20 16:01:00 EDT, Height, 59.5, kg, 12/29/19... Start Date: 05/28/20 Status: Ordered atovaquone 750 mg/5 mL oral suspension 10 mL = 1,500 mg, By Mouth, Daily, for 60 days, # 600 mL, 11 Refills, Acute 05/18/22 16:35:00 EDT, 05/28/20 16:35:00 EDT, Suspension, [facility] [id number], Pls cancel bactrim prescription. Atovaquone to replace bactrim, 171,... Start Date: 05/28/20 Stop Date: 05/18/22 Status: Ordered azithromycin 500 mg oral tablet 2 tablet = 1,000 mg, By Mouth, Once, take both tablets at once, # 2 tablet, 0 Refills, Soft Stop, 06/27/20 17:56:00 EDT, Tablet, [facility] [id number], 171, cm, 05/28/20 16:01:00 EDT, Height, 59.5, kg, 12/29/19 15:28:00 EDT, D... Start Date: 06/27/20 Status: Ordered Biktarvy oral tablet 1 tablet, By Mouth, Daily, for 30 days, # 30 tablet, 11 Refills, Hard Stop 05/23/21 16:35:00 EDT, 05/28/20 16:35:00 EDT, Tablet, [facility] [id number], 1 tablet By Mouth Daily,x30 days, 171, cm, 05/28/20 16:01:00 EDT, Height,... Start Date: 05/28/20 Stop Date: 05/23/21 Status: Ordered Colace sodium 100 mg oral capsule 100 mg, 1, capsule, By Mouth, 2 times a day, PRN, # 60 capsule, Refills 11, Tot. Refills 11, Maintenance, for constipation, 05/28/20 16:34:00 EDT, Route to Pharmacy Electronically, [facility] [id number], 171, cm, 05/28/20 16:0... Start Date: 05/28/20 [...] 06/28/20 13:01:00 EDT, Route to Pharmacy Electronically, [facility] [id number], 171, cm, 05/28/20 16:01:00 EDT, Height, 59.5... Start Date: 06/28/20 Status: Ordered hydrocortisone 0.5% topical cream See Instructions, use sparingly on face, use on all other affected areas, # 28 Gm, 11 Refills, Maintenance, 05/28/20 16:37:00 EDT, [facility] [id number], use sparingly on face, use on all other affected areas, 171, cm, ... Start Date: 05/28/20 Status: Ordered influenza virus vaccine, inactivated adjuvanted preservative-free quadrivalent intramuscular susp See Instructions, none, # 1 each, 0 Refills, Maintenance, 05/30/20 9:27:00 EDT, [facility], none, 171, cm, 05/28/20 16:01:00 EDT, Height, 59.5, kg, 12/29/19 15:28:00 EDT, Dry Weight Start Date: 05/30/20 Status: Ordered ketoconazole 2% topical cream 1 application, Topically, 2 times a day, for 28 days, use on the face, # 60 Gm, 11 Refills, Acute 04/29/21 16:40:00 EDT, 05/28/20 16:40:00 EDT, Cream, [facility] [id number], 1 application Topically 2 times a day,x28 days,Instr... Start Date: 05/28/20 Stop Date: 04/29/21 Status: Ordered ketoconazole 2% topical shampoo 1 application, Topically, Daily, try daily for 5 days as a shampoo, # 120 mL, 11 Refills, Soft Stop, 05/28/20 16:37:00 EDT, Shampoo, [facility], [place] - [id number], 1 application Topically Daily,Instr:try daily for 5 days as a shampoo,... Start Date: 05/28/20 Status: Ordered lithium 300 mg oral capsule 2 capsule = 600 mg, By Mouth, 2 times a day, # 120 capsule, 2 Refills, Maintenance, 06/28/20 12:56:00 EDT, [facility], [facility] [id number], Increase in dose per Psychiatry, 171, cm, 05/28/20 16:01:00 EDT, Height, 59.5, kg, 12/29/19 15:2... Start Date: 06/28/20 Status: Ordered LORazepam 0.5 mg oral tablet 1 tablet = 0.5 mg, By Mouth, 2 times a day, PRN Anxiety, # 60 tablet, 2 Refills, Maintenance, 06/28/20 12:56:00 EDT, Tablet, [facility], [facility] [id number], 171, cm, 05/28/20 16:01:00EDT, Height, 59.5, kg, 12/29/19 15:28:00 EDT, Dry W... Start Date: 06/28/20 Status: Ordered Mavyret 100 mg-40 mg oral tablet 3 tablet, By Mouth, Daily, with food, # 252 tablet, 0 Refills, Maintenance, 07/08/20 15:34:00 EST, Tablet, [facility], 3 tablet By Mouth Daily,x12 [...] 5 Refills, Maintenance, 05/28/20 16:35:00 EDT, Tablet, [facility] [id number], 171, cm, 05/28/20 16:01:00 EDT, Height, 59.5, kg, 12/29/19 15:28:00 EDT, Dry Weight Start Date: 05/28/20 Stop Date: 11/24/20 Status: Ordered multivitamin with minerals Calcium and Magnesium oral tablet 1 tablet, By Mouth, Daily, # 30 tablet, 11 Refills, Maintenance, 05/28/20 16:35:00 EDT, Tablet, [place], [place] - [id number], 1 tablet By Mouth Daily, 171, cm, 05/28/20 16:01:00 EDT, Height, 59.5, kg, 12/29/19 15:28:00 EDT, Dry Weight Start Date: 05/28/20 Stop Date: 05/23/21 Status: Ordered Narcan 4 mg/0.1 mL nasal spray See Instructions, 4 mg Once may repeat every 2 to 3 minutes until patient responds, # 2 each, 1 Refills, Soft Stop, 08/24/19 9:41:00 EST, [place], [place] -, MAMADOU García to picker box operator for Pt., 170, cm, 08/24/19 9:21:00 EST, Height, 66.36,... Start Date: 08/24/19 Status: Ordered Nicotine 2 mg gum 1 each = 2 mg, Chew, Every 2 hours, PRN as needed for smoking cessation, # 160 each, 3 Refills, Maintenance, 05/28/20 16:51:00 EDT, Gum, [facility] [id number], 171, cm, 05/28/20 16:01:00 EDT, Height, 59.5, [...] Refills, Soft Stop, 05/30/20 9:25:00 EDT, Suspension, [facility], 0.5 mL Intramuscular Once, 171, cm, [...] 06/14/20 20:44:00 EDT, Route to Pharmacy Electronically, [facility], 171, cm, 05/28/20 16:01:00 EDT, Height, 59.5, kg, 12/29/19 15:28:00... Start Date: 06/14/20 Stop Date: 09/12/20 Status: Ordered sildenafil 100 mg oral tablet 1 tablet = 100 mg, By Mouth, Daily, 1 hour before sexual activity, # 10 tablet, 5 Refills, Maintenance, 09/04/20 14:26:00 EST, Tablet, [place], [place] - [id number], Partial fill upon patient request if the prescription is for a sched... 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 Sex
--- OUTSIDE RECORDS SUMMARY | 2023-07-12 20:13 | XMS_ITS | Continuity of Care Document ---
Author Name Unknown Organization [facility] Address [address] [place] [address]- Care Team Providers Care Baseball Sewer Hand Name Role Phone Calvin WELLS, Giovanna Bernard Primary Care Physician [facility]counter [facility] Date(s): 11/28/19 - 12/08/19 [facility] [address] [place] [address]- [facility] Attending Physician: Angeles De La Rosa Admitting [...] 11/28/19 9:43:00 EDT, Route to Pharmacy Electronically, [facility] - [place], [place] -, 172, cm, 09/26/19 8:57:00 EST, Height, 66.3, kg, 09/11/19 13:26:00 EST,... Start Date: 11/28/19 Stop Date: 05/26/20 Status: Ordered atovaquone 750 mg/5 mL oral suspension 10 mL = 1,500 mg, By Mouth, Daily, for 60 days, # 600 mL, 5 Refills, Acute 11/22/20 9:44:00 EDT, 11/28/19 9:44:00 EDT, Suspension, [facility] [place], [place] -, Pls cancel bactrim prescription. Atovaquone to replace bactrim, 172, cm, 09/26/19 8... Start Date: 11/28/19 Stop Date: 11/22/20 Status: Ordered Biktarvy oral tablet 1 tablet, By Mouth, Daily, # 30 tablet, 5 Refills, Maintenance, 08/24/19 9:40:00 EST, Tablet, [place], [place] -, 1 tablet By Mouth Daily,x30 [...] 09/26/19 12:05:00 EST, Route to Pharmacy Electronically, [place], [place] -, 172, cm, 09/26/19 8:57:00 EST, [place]... Start Date: 09/26/19 Status: Ordered fluconazole 200 mg oral tablet 1 tablet = 200 mg, By Mouth, Daily, for 28 days, # 28 tablet, 5 Refills, Acute 02/08/20 9:42:00 EDT, 08/24/19 9:42:00 EST, Tablet, [place], [place] -, Decrease in dose., 170, cm, 08/24/19 9:21:00 EST, Height, 66.36, kg, 03/10/19 16:51... Start Date: 08/24/19 Stop Date: 02/08/20 Status: Ordered gabapentin 100 mg oral capsule 200 mg, 2, capsule, By Mouth, 3 times a day, # 180 capsule, Refills 3, Tot. Refills 3, Maintenance,11/28/19 9:44:00 EDT, Route to Pharmacy Electronically, [place], [place] -, 172, cm, 09/26/19 8:57:00 EST, Height, 66.3, kg, 09/11/19... Start Date: 11/28/19 Stop Date: 03/27/20 Status: Ordered lithium 300 mg oral capsule 2 capsule = 600 mg, By Mouth, Daily at bedtime, # 60 capsule, 3 Refills, Maintenance, 11/28/19 9:41:00 EDT, [place], [place] -, 172, cm, 09/26/19 8:57:00 EST, [...] tablet, 5 Refills, Maintenance, 11/28/19 9:41:00EDT, Tablet, [place], [place] -, 172, cm, 09/26/19 8:57:00 EST, Height, 66.3, kg, 09/11/19 13:26:00 EST, Dry Weight Start Date: 11/28/19 Stop Date: 05/26/20 Status: Ordered multivitamin with minerals Calcium and Magnesium oral tablet 1 tablet, By Mouth, Daily, # 30 tablet, 5 Refills, Maintenance, 09/26/19 12:05:00 EST, Tablet, [place], [place] -, 1 tablet By Mouth Daily,x30 days, 172, cm, 09/26/19 8:57:00 EST, Height, 66.3, kg, 09/11/19 13:26:00 EST, Dry Weight Start Date: 09/26/19 Stop Date: 03/24/20 Status: Ordered Narcan 4 mg/0.1 mL nasal spray See Instructions, 4 mg Once may repeat every 2 to 3 minutes until patient responds, # 2 each, 1 Refills, Soft Stop, 08/24/19 9:41:00 EST, [place], [place] -, MAMADOU García to garbage pick up worker for Pt., 170, cm, [...] Refills, Maintenance, 11/28/19 9:42:00 EDT, REC Powder, [place], [place] -, 17 Gm By Mouth 2 [...]
--- OUTSIDE RECORDS SUMMARY | 2023-07-12 20:13 | XMS_ITS | Continuity of Care Document ---
Author Name Unknown Organization [facility] Address [address] [place] [address]- Care Team Providers Care Parts Salesman Name Role Phone Namrata Prieto MD Primary Care Physician [phone] [facility] Date(s): 01/07/21 - 02/27/21 [facility] [address] [place] [address]- Attending Physician: Namrata Prieto MD Admitting Physician: [...] 10/28/20 9:30:00 EST, Route to Pharmacy Electronically, [facility] [id number], 173, cm, 07/17/20 19:29:00 EST, Height, 83.9, kg, 07/17/20... Start Date: 10/28/20 Status: Ordered atovaquone 750 mg/5 mL oral suspension 10 mL = 1,500 mg, By Mouth, Daily, for 60 days, # 600 mL, 11 Refills, Acute 05/18/22 16:35:00 EDT, 05/28/20 16:35:00 EDT, Suspension, [facility] [id number], Pls cancel bactrim prescription. Atovaquone to replace bactrim, 171,... Start Date: 05/28/20 Stop Date: 05/18/22 Status: Ordered Biktarvy oral tablet 1 tablet, By Mouth, Daily, for 30 days, # 30 tablet, 11 Refills, Hard Stop 05/23/21 16:35:00 EDT, 05/28/20 16:35:00 EDT, Tablet, [facility] [id number], 1 tablet By Mouth Daily,x30 days, 171, cm, 05/28/20 16:01:00 EDT, Height,... Start Date: 05/28/20 Stop Date: 05/23/21 Status: Ordered Colace sodium 100 mg oral capsule 100 mg, 1, capsule, By Mouth, 2 times a day, PRN, # 60 capsule, Refills 11, Tot. Refills 11, Maintenance, for constipation, 05/28/20 16:34:00 EDT, Route to Pharmacy Electronically, [facility] [id number], 171, cm, 05/28/20 16:0... Start Date: 05/28/20 Status: Ordered hydrocortisone 0.5% topical cream See Instructions, use sparingly on face, use on all other affected areas, # 28 Gm, 11 Refills, Maintenance, 05/28/20 16:37:00 EDT, [facility] [id number], use sparingly on face, use on all other affected areas, 171, cm, ... Start Date: 05/28/20 Status: Ordered ketoconazole 2% topical shampoo 1 application, Topically, Daily, try daily for 5 days as a shampoo, # 120 mL, 11 Refills, Soft Stop, 05/28/20 16:37:00 EDT, Shampoo, [facility] [id number], 1 application Topically Daily,Instr:try daily for 5 days as a shampoo,... Start Date: 05/28/20 Status: Ordered lithium 300 mg oral capsule 2 capsule = 600 mg, By Mouth, 2 times a day, # 120 capsule, 2 Refills, Maintenance, 06/28/20 12:56:00 EDT, [facility] [id number], Increase in dose per Psychiatry, 171, cm, 05/28/20 16:01:00 EDT, Height, 59.5, kg, 12/29/19 15:2... Start Date: 06/28/20 Status: Ordered LORazepam 0.5 mg oral tablet 1 tablet = 0.5 mg, By Mouth, 2 times a day, PRN Anxiety, # 60 tablet, 2 Refills, Maintenance, 06/28/20 12:56:00 EDT, Tablet, [facility], [facility] [id number], 171, cm, 05/28/20 16:01:00EDT, Height, 59.5, kg, 12/29/19 15:28:00 EDT, Dry W... Start Date: 06/28/20 Status: Ordered Mavyret 100 mg-40 mg oral tablet 3 tablet, By Mouth, Daily, with food, # 252 tablet, 0 Refills, Maintenance, 07/08/20 15:34:00 EST, Tablet, [facility], 3 tablet By Mouth Daily,x12 [...] Refills, Maintenance, 05/28/20 16:35:00 EDT, Tablet, [facility], [facility] [id number], 1 tablet By Mouth Daily, 171, cm, 05/28/20 16:01:00 EDT, Height, 59.5, kg, 12/29/19 15:28:00 EDT, Dry Weight Start Date: 05/28/20 Stop Date: 05/23/21 Status: Ordered Narcan 4 mg/0.1 mL nasal spray See Instructions, 4 mg Once may repeat every 2 to 3 minutes until patient responds, # 2 each, 1 Refills, Soft Stop, 08/24/19 9:41:00 EST, [place], [place] -, MAMADOU García to oyster picker for Pt., 170, cm, 08/24/19 9:21:00 EST, Height, 66.36,... Start Date: 08/24/19 Status: Ordered ondansetron 4 mg oral tablet, disintegrating 1 tablet = 4 mg, By Mouth, Every 8 hours, PRN as needed for nausea/vomiting, # 12 tablet, 0 Refills, Maintenance, 12/08/20 19:19:00 EDT, DIS Tablet, [place], [place] - [id number], Partial fill upon patient request if the [...] Refills, Maintenance, 11/28/19 9:42:00 EDT, REC Powder, [place], [place] -, 17 Gm By Mouth 2 times a day,x30 days,PRN:Constipation,Instr:... Start Date: 11/28/19 Stop Date: 03/27/20 Status: Ordered sildenafil 100 mg oral tablet 1 tablet = 100 mg, By Mouth, Daily, 1 hour before sexual activity, # 10 tablet, 5 Refills, Maintenance, 09/04/20 14:26:00 EST, Tablet, [place], [place] - [id number], Partial fill upon patient request if the prescription is for a sched... 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
--- OUTSIDE RECORDS SUMMARY | 2023-07-12 20:13 | XMS_ITS | Continuity of Care Document ---
Author Name Unknown Organization [facility] Address [address] [place] [address]- Care Team Providers Care Dynamotor Repairer Name Role Phone Conner QUEEN, Namrata Agarwal Primary Care Physician [phone] [facility]counter [facility]): 12/23/22 - 01/22/23 [facility] [address] [place] [id number] Allergies, Adverse Reactions, Alerts Substance Reaction [...] 8:46:00 EST, Powder, Route to Pharmacy Electronically, [id number], [facility] - Spr... Start Date: 07/20/22 Stop Date: 07/15/23 Status: Ordered amLODIPine 10 mg oral tablet 10 mg, 1, tablet, By Mouth, Daily, # 30 tablet, Refills 11, Tot. Refills 11, Maintenance, 07/20/22 8:43:00 EST, Route to Pharmacy Electronically, [facility] [id number], 173, cm, 05/10/22 20:46:00 EDT, Height, 95.5, kg, 2... Start Date: 07/20/22 Status: Ordered aspirin 81 mg oral tablet, chewable 81 mg, 1, tablet, By Mouth, Daily, # 30 tablet, Refills 11, Tot. Refills 11, Maintenance, 07/20/22 8:43:00 EST, Route to Pharmacy Electronically, [facility] [id number], Partial fill upon patient request if the prescription is... Start Date: 07/20/22 Stop Date: 11/12/23 Status: Ordered atorvastatin 80 mg oral tablet 1 tablet = 80 mg, By Mouth, Daily, # 30 tablet, 11 Refills, Maintenance, 07/20/22 8:43:00 EST, Tablet, [facility] [id number], Partial fill upon patient request if the prescription is for a schedule II opioid drug., 173, cm, 09... Start Date: 07/20/22 Status: Ordered Biktarvy oral tablet 1 tablet, By Mouth, Daily, must get appt and labs for refills, # 30 tablet, 0 Refills, Maintenance,12/16/22 19:18:00 EDT, [facility] [id number], 30, 1 tablet By Mouth Daily,Instr:must get [...] 12/24/22 19:14:00 EDT, Route to Pharmacy Electronically, [facility]... Start Date: 12/24/22 Status: Ordered Crutches [...] 1 Refills, Soft Stop, 03/05/22 10:37:00 EDT, [facility] [place], [place] - [id number], Partial fill upon patient request if the prescriptio... Start Date: 03/05/22 Status: Ordered fluticasone-salmeterol 250 mcg-50 mcg inhalation powder 1, puffs, Inhalation, 2 times a day, patient needs labs and appt before more refills, # 60 each, Refills 0, Tot. Refills 0, Maintenance, 12/16/22 19:27:00 EDT, Powder, Route to Pharmacy Electronically, [id number], [facility]... Start Date: 12/16/22 Status: Ordered [...] Gm, 11 Refills, Maintenance, 04/20/22 9:23:00 EDT, [facility] [id number], 1 application Topically Daily, 173, cm, 12/05/21 17:38:00 EDT,Height, 127, kg, 12/05/21 17:38:00 EDT, Dry Weight Start Date: 04/20/22 Status: Ordered Lidoderm 5% film 1 patch, Topically, Daily, # 30 patch, 11 Refills, Maintenance, 03/19/22 21:12:00 EDT, [facility] [id number], Partial fill upon patient request if the [...] 11 Refills, Maintenance, 07/20/22 8:43:00 EST, Tablet, [place], [place] - [id number], 1 tablet By Mouth Daily, 173, cm, 05/10/22 20:46:00 EDT,Height, 95.5, kg, 05/10/22 20:46:00 EDT, Dry Weight Start Date: 07/20/22 Status: Ordered Narcan 4 mg/0.1 mL nasal spray See Instructions, 4 mg Once may repeat every 2 to 3 minutes until patient responds, # 2 each, 3 Refills, Soft Stop, 03/05/22 10:07:00 EDT, [facility] [id number], 173, cm, 12/05/21 17:38:00 EDT, Height, 127, [...] Refills, Soft Stop, 12/24/22 11:37:00 EDT, Lotion, [facility] [id number], Partial fill upon pa... Start Date: 12/24/22 Status: Ordered polyethylene glycol 3350 oral powder for reconstitution = 17 Gm, By Mouth, 2 times a day, PRN Constipation, dissolve in water before taking, # 527 Gm, 3 Refills, Maintenance, 12/02/21 16:55:00 EDT, REC Powder, [facility] [id number], 17 Gm By Mouth 2 times a day,x30 days,PRN:Constip... Start Date: 12/02/21 Stop Date: 04/01/22 Status: Ordered rOPINIRole 0.5 mg oral tablet 1 tablet = 0.5 mg, By Mouth, Daily at bedtime, 1 to 3 hours before bedtime, # 30 tablet, 11 Refills, Maintenance, 07/20/22 8:43:00 EST, Tablet, [facility] [id number], Partialfill upon patient request if the prescription is fo... Start Date: 07/20/22 Status: Ordered Senna 8.6 mg oral tablet 1 or 2 tablets, By Mouth, Daily at bedtime, PRN, Must make appt and get labs for refills, # 180 tablet, Refills 0, Tot. Refills 0, Maintenance, Constipation, 12/16/22 19:14:00 EDT, Route to Pharmacy Electronically, [place], [place] -... Start Date: 12/16/22 Status: Ordered sildenafil 100 mg oral tablet 1 tablet = 100 mg, By Mouth, Daily, 1 hour before sexual activity, # 20 tablet, 11 Refills, Maintenance, 04/20/22 9:24:00 EDT, Tablet, [facility] [id number], disreguard last script for 0.5 tab, 173, cm, 12/05/21 17:38:00 EDT,... Start Date: 04/20/22 Status: Ordered varenicline 1mg tablet 1 tablet = 1 mg, By Mouth, Daily, 0.5 tab daily x 3 days then 0.5 tab BID x 3 days then 1 tab BID, # 30 tablet, 4 Refills, Maintenance, 09/04/22 15:20:00 EST, Tablet, [facility] [id number], Partial fill upon patient request if... Start Date: 09/04/22 Status: Ordered Ventolin HFA 108 mcg/inh inhalation aerosol with adapter 2 puffs, Inhalation, 4 times a day, PRN for wheezing, must get appt and labs for refills, # 3 each,0 Refills, Maintenance, 12/16/22 19:15:00 EDT, Aerosol, [facility] [id number], Partial fill upon patient request if the prescr... Start Date: 12/16/22 Status: Ordered Vitamin D3 1000 intl units oral capsule 1 capsule = 25 mcg, By Mouth, Daily, # 30 capsule, 11 Refills, Maintenance, 06/04/22 17:32:00 EDT, Capsule, [facility] [id number], D/c vitamin high dosed, 173, cm, 05/10/22 [...] Team Personnel Name: Jadiel Watson RN Position: [facility] ED RN W/OE and Tasks Member Role: Primary Care Nurse Name: Dede Mccloud RN Position: [facility] RN Member Role: Primary Care Nurse Name: Judy Gonzales RN Position: [facility] RN Member Role: Primary Care Nurse Name: Enma Manriquez RN Position: [facility] AMB Nurse Member Role: Primary Care Nurse Name: Zuhair Lopez RN Position: [facility] RN Member Role: Primary Care Nurse Name: Edie Bob RN Position: [facility] RN Member Role: Primary Care Nurse Name: Lisbet Gardiner RN Position: [facility] RN Member Role: Primary Care Nurse Name: Namrata Prieto MD Position: [facility] Primary Care Physician Member Role: PCP Address: Address: [address] [place] [address], -Level [facility] [place] [address]- Name: Carolina Valero RN Position: [facility] RN Member Role: Primary Care Nurse Name: Nishi San RN Position: [facility] RN Member Role: Primary Care Nurse Name: Micky Boyd RN Position: [facility] RN Member Role: Primary Care Nurse Name: Lauri Combs NP Position: Reference Physician Member Role: Primary Care Nurse Address: Address: [address] [place] [address] [address] Clinical [facility] [place] [address]- [place] Care Team Related Persons Name: LUIS SAN Address: [place] [address] Name: BROOKE OWEN Address: home [address] [address] Name: KARYN OWEN Address: home [address] [place] [address] Name: DOMINGO LEONE Address: home [address] [place] [address]
--- OUTSIDE RECORDS SUMMARY | 2023-07-12 20:13 | XMS_ITS | Continuity of Care Document ---
Author Name Unknown Organization [facility] Address [address] [place] [address]- Care Team Providers Care Dialysis Registered Nurse Name Role Phone Conner QUEEN, Namrata Agarwal Primary Care Physician [facility]): 06/22/22 - 07/22/22 [facility] [address] [place] [id number]- Encounter Diagnosis Erectile dysfunction(Discharge Diagnosis) - 05/29/20 Depression - [facility](Discharge Diagnosis) - 05/29/20 Attending Physician: Angeles De La Rosa Admitting Physician: AdmAngeles cervantes Referring Physician: Admtr, Ar8 Allergies, Adverse Reactions, [...] 8:46:00 EST, Powder, Route to Pharmacy Electronically, [id number], [facility] - Spr... Start Date: 07/20/22 Stop Date: 07/15/23 Status: Ordered Albuterol (Eqv-ProAir HFA) 90 mcg/inh inhalation aerosol 2 puffs, Inhalation, Every 6 hours, # 8.5 Gm, 11 Refills, 08/25/21 12:34:00 EST, [facility] [id number], 25, 2 puffs Inhalation Every 6 hours, 173, cm, 08/25/21 12:31:00 EST, Height, 84, kg, 04/19/21 2:36:00 EDT, Dry Weight Start Date: 08/25/21 Status: Ordered amLODIPine 10 mg oral tablet 10 mg, 1, tablet, By Mouth, Daily, # 30 tablet, Refills 11, Tot. Refills 11, Maintenance, 07/20/22 8:43:00 EST, Route to Pharmacy Electronically, [facility] [id number], 173, cm, 05/10/22 20:46:00 EDT, Height, 95.5, kg, ... Start Date: 07/20/22 Status: Ordered Asperflex 4% topical film 1 patch, Topically, Daily, for 30 days, # 30 patch, 11 Refills, Acute 03/12/23 14:41:00 EDT, 03/17/22 14:41:00 EDT, [facility] [id number], Partial fill upon patient request if the prescription is for a schedule II opioid drug.... Start Date: 03/17/22 Stop Date: 03/12/23 Status: Ordered aspirin 81 mg oral tablet, chewable 81 mg, 1, tablet, By Mouth, Daily, # 30 tablet, Refills 11, Tot. Refills 11, Maintenance, 07/20/22 8:43:00 EST, Route to Pharmacy Electronically, [facility] [id number], Partial fill upon patient request if the prescription is... Start Date: 07/20/22 Stop Date: 11/12/23 Status: Ordered atorvastatin 80 mg oral tablet 1 tablet = 80 mg, By Mouth, Daily, # 30 tablet, 11 Refills, Maintenance, 07/20/22 8:43:00 EST, Tablet, [facility] [id number], Partial fill upon patient request if the prescription is for a schedule II opioid drug., 173, cm, 09... Start Date: 07/20/22 Status: Ordered Biktarvy oral tablet 1 tablet, By Mouth, Daily, # 30 tablet, 5 Refills, Maintenance, 07/20/22 8:36:00 EST, [facility], [facility] [id number], 30, 1 tablet By Mouth Daily, 173, [...] 03/05/22 10:37:00 EDT, [facility] [id number], Partial fill upon patient request if the prescriptio... Start Date: 03/05/22 Status: Ordered hydrocortisone 0.5% topical cream See Instructions, use sparingly on face, use on all other affected areas, # 28 Gm, 11 Refills, Maintenance, 03/07/21 6:50:00 EDT, [facility] [id number], use sparingly on face, use on all other affected areas, 174, cm, 01/13/21... Start Date: 03/07/21 Status: Ordered Incruse Ellipta 62.5 mcg/inh inhalation powder 1 puffs, Inhalation, Every 24 hours, doses should be taken AT least 24 HOURS APART, # 30 Unknown, 11 Refills, 08/25/21 12:34:00 EST, [facility] [id number], 173, cm, 08/25/21 12:31:00 EST, Height, 84, kg, 04/19/21 2:36:00 EDT,... Start Date: 08/25/21 Status: Ordered ketoconazole 2% topical cream 1 application, Topically, Daily, # 30 Gm, 11 Refills, Maintenance, 04/20/22 9:23:00 EDT, [facility] [id number], 1 application Topically Daily, 173, cm, 12/05/21 17:38:00 EDT,Height, 127, kg, 12/05/21 17:38:00 EDT, Dry Weight Start Date: 04/20/22 Status: Ordered Lidoderm 5% film 1 patch, Topically, Daily, # 30 patch, 11 Refills, Maintenance, 03/19/22 21:12:00 EDT, [facility] [id number], Partial fill upon patient request if the [...] 8:43:00 EST, Tablet, [facility] [id number], 1 tablet By Mouth Daily, 173, cm, 05/10/22 20:46:00 EDT,Height, 95.5, kg, 05/10/22 20:46:00 EDT, Dry Weight Start Date: 07/20/22 Status: Ordered Narcan 4 mg/0.1 mL nasal spray See Instructions, 4 mg Once may repeat every 2 to 3 minutes until patient responds, # 2 each, 3 Refills, Soft Stop, 03/05/22 10:07:00 EDT, [facility] [id number], 173, cm, 12/05/21 17:38:00 EDT, Height, 127, kg, 12/05/21 17:38... Start Date: 03/05/22 Status: Ordered Nicotine 2 mg gum 1 each = 2 mg, Chew, Every 2 hours, PRN as needed for smoking cessation, for 4 week(s), # 160 each,11 Refills, Acute 09/11/22 12:53:00 EST, 10/10/21 12:53:00 EST, Gum, [facility] [id number], Partial fill upon patient request... Start Date: 10/10/21 Stop Date: 09/11/22 Status: Ordered ondansetron 4 mg oral tablet, disintegrating 1 tablet = 4 mg, By Mouth, Every 8 hours, PRN as needed for nausea/vomiting, # 12 tablet, 11 Refills, Maintenance, 08/21/21 13:33:00 EST, DIS Tablet, [facility] [id number], Partial fill upon patient request if the [...] Maintenance, 12/02/21 16:55:00 EDT, REC Powder, [facility] [id number], 17 Gm By Mouth 2 times a day,x30 days,PRN:Constip... Start Date: 12/02/21 Stop Date: 04/01/22 Status: Ordered rOPINIRole 0.5 mg oral tablet 1 tablet = 0.5 mg, By Mouth, Daily at bedtime, 1 to 3 hours before bedtime, # 30 tablet, 11 Refills, Maintenance, 07/20/22 8:43:00 EST, Tablet, [facility] [id number], Partialfill upon patient request if the prescription is fo... Start Date: 07/20/22 Status: Ordered sildenafil 100 mg oral tablet 1 tablet = 100 mg, By Mouth, Daily, 1 hour before sexual activity, # 20 tablet, 11 Refills, Maintenance, 04/20/22 9:24:00 EDT, Tablet, [facility] [id number], disreguard last script for 0.5 tab, 173, cm, 12/05/21 17:38:00 EDT,... Start Date: 04/20/22 Status: Ordered varenicline 1mg tablet 1 tablet = 1 mg, By Mouth, Daily, 0.5 tab daily x 3 days then 0.5 tab BID x 3 days then 1 tab BID, # 30 tablet, 4 Refills, Maintenance, 04/01/22 16:45:00 EDT, Tablet, [facility] [id number], Partial fill upon patient request if... Start Date: 04/01/22 Status: Ordered Ventolin HFA 108 mcg/inh inhalation aerosol with adapter 2 puffs, Inhalation, 4 times a day, PRN for wheezing, # 1 each, 11 Refills, Maintenance, 07/20/22 8:44:00 EST, Aerosol, [facility] [id number], Partial fill upon patient request if the [...] 06/04/22 17:32:00 EDT, Capsule, [facility] - [place], [place] - [id number], D/c vitamin high dosed, 173, cm, 05/10/22 [...] 01/2019 Confirmed Active Depression - [facility] therapist, [facility] Confirmed Active Diastolic dysfunction 1 Confirmed [...] Discharge Diagnosis 05/29/20 Depression - [facility] therapist, [facility] Discharge Diagnosis 05/29/20 Social History Social History Type Response Smoking Status 10 or more cigarette s (1/2 pack or more)/day in last 30 days entered on: 12/05/21 Sex Patient Care team information Care Team Personnel Name: Jadiel Watson RN Position: [facility] ED RN W/OE and Tasks Member Role: Primary Care Nurse Name: Dede Mccloud RN Position: [facility] RN Member Role: Primary Care Nurse Name: Judy Gonzales RN Position: [facility] RN Member Role: Primary Care Nurse Name: Enma Manriquez RN Position: S RN Member Role: Primary Care Nurse Name: Zuhair Lopez RN Position: [facility] RN Member Role: Primary Care Nurse Name: Cathryn Allen RN Position: S RN Member Role: Primary Care Nurse Name: Edie Bob RN Position: S RN Member Role: Primary Care Nurse Name: Lisbet Gardiner RN Position: [facility] RN Member Role: Primary Care Nurse Name: Namrata Prieto MD Position: [facility] Primary Care Physician Member Role: PCP Address: Address: [address] [place] [address], C-Level [facility] [place] [address]- Name: Carolina Valero RN Position: [facility] RN Member Role: Primary Care Nurse Name: Nishi San RN Position: [facility] RN Member Role: Primary Care Nurse Name: Micky Boyd RN Position: [facility] RN Member Role: Primary Care Nurse Name: Lauri Combs NP Position: Reference Physician Member Role: Primary Care Nurse Address: Address: [address] [place] [address] [address] Clinical & [place] [address]- Care Team Related Persons Name: LUIS SAN Address: [place] [address] Name: BROOKE OWEN Address: home [address] [address] Name: KARYN OWEN Address: home [address] [place] [address] Name: DOMINGO LEONE Address: home [address] [place] [address]
--- OUTSIDE RECORDS SUMMARY | 2023-07-12 20:13 | XMS_ITS | Continuity of Care Document ---
Author Name Unknown Organization [facility] Address [address] [place] [address]- Care Team Providers Care Trapeze Performer Name Role Phone Conner QUEEN, Namrata Agarwal Primary Care Physician [facility] 05[facility]22 - 06/12/22 [facility] [address] [place] [id number] Allergies, Adverse Reactions, Alerts Substance [...] 8:29:00 EDT, Powder, Route to Pharmacy Electronically, [id number], [facility] - Spr... Start Date: 01/07/22 Stop Date: 01/02/23 Status: Ordered Albuterol (Eqv-ProAir HFA) 90 mcg/inh inhalation aerosol 2 puffs, Inhalation, Every 6 hours, # 8.5 Gm, 11 Refills, 08/25/21 12:34:00 EST, [facility] [id number], 25, 2 puffs Inhalation Every 6 hours, 173, cm, 08/25/21 12:31:00 EST, Height, 84, kg, 04/19/21 2:36:00 EDT, Dry Weight Start Date: 08/25/21 Status: Ordered amLODIPine 10 mg oral tablet 10 mg, 1, tablet, By Mouth, Daily, # 30 tablet, Refills 11, Tot. Refills 11, Maintenance, 08/27/21 16:46:00 EST, Route to Pharmacy Electronically, [facility] [id number], 173,cm, 08/25/21 12:31:00 EST, Height, 84, kg, 04/19/21... Start Date: 08/27/21 Status: Ordered Asperflex 4% topical film 1 patch, Topically, Daily, for 30 days, # 30 patch, 11 Refills, Acute 03/12/23 14:41:00 EDT, 03/17/22 14:41:00 EDT, [facility] [id number], Partial fill upon patient request if the prescription is for a schedule II opioid drug.... Start Date: 03/17/22 Stop Date: 03/12/23 Status: Ordered aspirin 81 mg oral tablet, chewable 81 mg, 1, tablet, By Mouth, Daily, # 120 tablet, Refills 3, Tot. Refills 3, Maintenance, 10/02/21 11:47:00 EST, Route to Pharmacy Electronically, [facility] [id number], Partial fill upon patient request if the prescription is... Start Date: 10/02/21 Stop Date: 01/25/23 Status: Ordered atorvastatin 80 mg oral tablet 1 tablet = 80 mg, By Mouth, Daily, # 30 tablet, 11 Refills, Maintenance, 11/07/21 14:34:00 EST, Tablet, [facility] [id number], Partial fill upon patient request if the [...] 1 Refills, Soft Stop, 03/05/22 10:37:00 EDT, [facility] [id number], Partial fill upon patient request if the prescriptio... Start Date: 03/05/22 Status: Ordered hydrocortisone 0.5% topical cream See Instructions, use sparingly on face, use on all other affected areas, # 28 Gm, 11 Refills, Maintenance, 03/07/21 6:50:00 EDT, [place], [place] - [id number], use sparingly on face, use on all other affected areas, 174, cm, 01/13/21... Start Date: 03/07/21 Status: Ordered Incruse Ellipta 62.5 mcg/inh inhalation powder 1 puffs, Inhalation, Every 24 hours, doses should be taken AT least 24 HOURS APART, # 30 Unknown, 11 Refills, 08/25/21 12:34:00 EST, [facility] [id number], 173, cm, 08/25/21 12:31:00 EST, Height, 84, kg, 04/19/21 2:36:00 EDT,... Start Date: 08/25/21 Status: Ordered ketoconazole 2% topical cream 1 application, Topically, Daily, # 30 Gm, 11 Refills, Maintenance, 04/20/22 9:23:00 EDT, [facility] [id number], 1 application Topically Daily, 173, cm, 12/05/21 17:38:00 EDT,Height, 127, kg, 12/05/21 17:38:00 EDT, Dry Weight Start Date: 04/20/22 Status: Ordered Lidoderm 5% film 1 patch, Topically, Daily, # 30 patch, 11 Refills, Maintenance, 03/19/22 21:12:00 EDT, [facility] [id number], Partial fill upon patient request if the [...] 11 Refills, Maintenance, 12/15/21 6:32:00 EDT, Tablet, [facility] [id number], 1 tablet By Mouth Daily, 173, cm, 12/05/21 17:38:00 EDT,Height, 127, kg, 12/05/21 17:38:00 EDT, Dry Weight Start Date: 12/15/21 Status: Ordered Narcan 4 mg/0.1 mL nasal spray See Instructions, 4 mg Once may repeat every 2 to 3 minutes until patient responds, # 2 each, 3 Refills, Soft Stop, 03/05/22 10:07:00 EDT, [facility] [id number], 173, cm, 12/05/21 17:38:00 EDT, Height, 127, kg, 12/05/21 17:38... Start Date: 03/05/22 Status: Ordered Nicotine 2 mg gum 1 each = 2 mg, Chew, Every 2 hours, PRN as needed for smoking cessation, for 4 week(s), # 160 each,11 Refills, Acute 09/11/22 12:53:00 EST, 10/10/21 12:53:00 EST, Gum, [facility] [id number], Partial fill upon patient request... Start Date: 10/10/21 Stop Date: 09/11/22 Status: Ordered ondansetron 4 mg oral tablet, disintegrating 1 tablet = 4 mg, By Mouth, Every 8 hours, PRN as needed for nausea/vomiting, # 12 tablet, 11 Refills, Maintenance, 08/21/21 13:33:00 EST, DIS Tablet, [facility] [id number], Partial fill upon patient request if the [...] Refills, Maintenance, 12/02/21 16:55:00 EDT, REC Powder, [facility] [id number], 17 Gm By Mouth 2 times a day,x30 days,PRN:Constip... Start Date: 12/02/21 Stop Date: 04/01/22 Status: Ordered rOPINIRole 0.5 mg oral tablet 1 tablet = 0.5 mg, By Mouth, Daily at bedtime, 1 to 3 hours before bedtime, # 30 tablet, 11 Refills, Maintenance, 08/21/21 13:32:00 EST, Tablet, [facility] [id number], Partial fill upon patient request if the prescription is f... Start Date: 08/21/21 Status: Ordered sildenafil 100 mg oral tablet 1 tablet = 100 mg, By Mouth, Daily, 1 hour before sexual activity, # 20 tablet, 11 Refills, Maintenance, 04/20/22 9:24:00 EDT, Tablet, [facility] [id number], disreguard last script for 0.5 tab, 173, cm, 12/05/21 17:38:00 EDT,... Start Date: 04/20/22 Status: Ordered varenicline 1mg tablet 1 tablet = 1 mg, By Mouth, Daily, 0.5 tab daily x 3 days then 0.5 tab BID x 3 days then 1 tab BID, # 30 tablet, 4 Refills, Maintenance, 04/01/22 16:45:00 EDT, Tablet, [facility] [id number], Partial fill upon patient request if... Start [...] 11 Refills, Maintenance, 06/04/22 17:32:00 EDT, Caps[facility], [place], [place] - [id number], D/c vitamin high dosed, 173, cm, 05/10/22 [...] 01/2019 Confirmed Active Depression - [facility] dawn [facility] Confirmed Active Diastolic dysfunction 1 [...] Name: Conner QUEEN, Namrata Agarwal Address: Address: [address] [place] [address], -[facility] [place], [place] [address]
--- OUTSIDE RECORDS SUMMARY | 2023-07-12 20:13 | XMS_ITS | Continuity of Care Document ---
Author Name Unknown Organization [facility] Address [address] [place] [address]- Care Team Providers Care Parking Regulation Enforcement Officer Name Role Phone Namrata Prieto MD Primary Care Physician [facility]counter [facility] Date(s): 09/01/21 - 10/29/21 [facility] [address], [place] [address] Attending Physician: Namrata Prieto MD [...] 13:14:00 EST, Powder, Route to Pharmacy Electronically, [id number], [facility]... Start Date: 08/21/21 Stop Date: 01/18/22 Status: Ordered Albuterol (Eqv-ProAir HFA) 90 mcg/inh inhalation aerosol 2 puffs, Inhalation, Every 6 hours, # 8.5 Gm, 11 Refills, 08/25/21 12:34:00 EST, [facility] [id number], 25, 2 puffs Inhalation Every 6 hours, 173, cm, 08/25/21 12:31:00 EST, Height, 84, kg, 04/19/21 2:36:00 EDT, Dry Weight Start Date: 08/25/21 Status: Ordered amLODIPine 10 mg oral tablet 10 mg, 1, tablet, By Mouth, Daily, # 30 tablet, Refills 11, Tot. Refills 11, Maintenance, 08/27/21 16:46:00 EST, Route to Pharmacy Electronically, [facility] [id number], 173,cm, 08/25/21 12:31:00 EST, Height, 84, kg, 04/19/21... Start Date: 08/27/21 Status: Ordered aspirin 81 mg oral tablet, chewable 81 mg, 1, tablet, By Mouth, Daily, # 120 tablet, Refills 3, Tot. Refills 3, Maintenance, 10/02/21 11:47:00 EST, Route to Pharmacy Electronically, [facility] [id number], Partial fill upon patient request if the prescription is... Start Date: 10/02/21 Stop Date: 01/25/23 Status: Ordered atorvastatin 80 mg oral tablet 1 tablet = 80 mg, By Mouth, Daily at bedtime, # 90 tablet, 4 Refills, Maintenance, 10/02/21 11:47:00 EST, Tablet, [facility] [id number], Partial fill upon patient request if the prescription is for a schedule II opioid drug.,... Start Date: 10/02/21 Stop Date: 12/26/22 Status: Ordered atovaquone 750 mg/5 mL oral suspension 10 mL = 1,500 mg, By Mouth, Daily, for 60 days, # 600 mL, 11 Refills, Acute 02/25/23 6:50:00 EDT, 03/07/21 6:50:00 EDT, Suspension, [place], [place] - [id number], Pls cancel bactrim prescription. Atovaquone to replace bactrim, 174, cm... Start Date: 03/07/21 Stop Date: 02/25/23 Status: Ordered Biktarvy oral tablet 1 tablet, By Mouth, Daily, # 30 tablet, 11 Refills, [facility], 30, TAKE ONE TABLET BY [...] FOR CONSTIPATION, # 60 each, 5 Refills, [facility], 173, cm, 04/21/21 8:17:00 EDT, Height, 84, kg, 04/19/21 2:36:00 EDT, Dry Weight Start Date: 06/02/21 Status: Ordered hydrocortisone 0.5% topical cream See Instructions, use sparingly on face, use on all other affected areas, # 28 Gm, 11 Refills, Maintenance, 03/07/21 6:50:00 EDT, [place], [place] - [id number], use sparingly on face, use on all other affected areas, 174, cm, 01/13/21... Start Date: 03/07/21 Status: Ordered Incruse Ellipta 62.5 mcg/inh inhalation powder 1 puffs, Inhalation, Every 24 hours, doses should be taken AT least 24 HOURS APART, # 30 Unknown, 11 Refills, 08/25/21 12:34:00 EST, [place], [place] - [id number], 173, cm, 08/25/21 12:31:00 EST, Height, 84, [...] Refills, Maintenance, 03/07/21 6:51:00 EDT, Tablet, [place], [place] - [id number], 1 tablet By Mouth Daily, 174, cm, 01/13/21 8:20:00 EDT, Height, 93, kg, 01/08/21 18:17:00 EDT, Dry Weight Start Date: 03/07/21 Status: Ordered Narcan 4 mg/0.1 mL nasal spray See Instructions, 4 mg Once may repeat every 2 to 3 minutes until patient responds, # 2 each, 1 Refills, Soft Stop, 08/24/19 9:41:00 EST, [place], [place] -, 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 Start Date: 08/24/19 Status: Ordered Nicotine 2 mg gum 1 each = 2 mg, Chew, Every 2 hours, PRN as needed for smoking cessation, for 4 week(s), # 160 each,11 Refills, Acute 09/11/22 12:53:00 EST, 10/10/21 12:53:00 EST, Gum, [facility] [id number], Partial fill upon patient request... Start Date: [...] 08/21/21 13:33:00 EST, DIS Tablet, [facility] [id number], Partial fill upon patient request if the [...] EST, Route to Pharmacy Electronically, [facility], [facility] [id number], Partial fill upon patient request if the prescription is f... Start Date: 10/02/21 Stop Date: 12/31/21 Status: Ordered polyethylene glycol 3350 oral powder for reconstitution = 17 Gm, By Mouth, 2 times a day, PRN Constipation, dissolve in water before taking, # 527 Gm, 3 Refills, Maintenance, 11/28/19 9:42:00 EDT, REC Powder, [place], [place] -, 17 Gm By Mouth 2 times a day,x30 days,PRN:Constipation,Instr:... Start Date: 11/28/19 Stop Date: 03/27/20 Status: Ordered polyethylene glycol 3350 oral powder for reconstitution See Instructions, DISSOLVE 17grams powder IN WATER BEFORE drinking 2 (two) times a day NEEDED FOR CONSTIPATION, # 510 Gm, 11 Refills, [facility], 30, DISSOLVE 17grams powder IN WATER BEFORE drinking 2 (two) times a day NEEDED FOR CONSTIPATI... Start Date: 09/03/21 Status: Ordered rOPINIRole 0.5 mg oral tablet 1 tablet = 0.5 mg, By Mouth, Daily at bedtime, 1 to 3 hours before bedtime, # 30 tablet, 11 Refills, Maintenance, 08/21/21 13:32:00 EST, Tablet, [facility] [id number], Partial fill upon patient request if the prescription is f... Start Date: 08/21/21 Status: Ordered Senna 8.6 mg oral tablet 1 or 2 tablets, By Mouth, Daily at bedtime, PRN, # 60 tablet, Refills 5, Tot. Refills 5, Maintenance, Constipation, 10/10/21 14:43:00 EST, Route to Pharmacy Electronically, [facility] [id number] Tablet, Partial fill upon patie... Start Date: 10/10/21 Status: Ordered sildenafil 100 mg oral tablet 1 tablet = 100 mg, By Mouth, Daily, 1 hour before sexual activity, # 20 tablet, 11 Refills, Maintenance, 03/07/21 6:49:00 EDT, Tablet, [facility] [id number], Partial fill upon patient request if the [...] - 01/2019(Confirmed) Active Depression - Olinda allan, [facility](Confirmed) Active Diastolic dysfunction(Confirmed) 1 09/27/21 Active [...]
--- OUTSIDE RECORDS SUMMARY | 2023-07-12 20:13 | XMS_ITS | Continuity of Care Document ---
Author Name Unknown Organization [facility] Address [address] [place] [address]- Care Team Providers Care Mental Health Tech Name Role Phone Conner QUEEN, Namrata Agarwal Primary Care Physician [phone] [facility]counter [facility] Date(s): 05/12/22 - 07/02/22 [facility] [address] [place] [id number]- Attending Physician: Not on Staff, Attending MD [...] 8:29:00 EDT, Powder, Route to Pharmacy Electronically, [id number], [facility]... Start Date: 01/07/22 Stop Date: 01/02/23 Status: Ordered Albuterol (Eqv-ProAir HFA) 90 mcg/inh inhalation aerosol 2 puffs, Inhalation, Every 6 hours, # 8.5 Gm, 11 Refills, 08/25/21 12:34:00 EST, [facility] [id number], 25, 2 puffs Inhalation Every 6 hours, 173, cm, 08/25/21 12:31:00 EST, Height, 84, kg, 04/19/21 2:36:00 EDT, Dry Weight Start Date: 08/25/21 Status: Ordered amLODIPine 10 mg oral tablet 10 mg, 1, tablet, By Mouth, Daily, # 30 tablet, Refills 11, Tot. Refills 11, Maintenance, 08/27/21 16:46:00 EST, Route to Pharmacy Electronically, [facility] [id number], 173,cm, 08/25/21 12:31:00 EST, Height, 84, kg, 04/19/21... Start Date: 08/27/21 Status: Ordered Asperflex 4% topical film 1 patch, Topically, Daily, for 30 days, # 30 patch, 11 Refills, Acute 03/12/23 14:41:00 EDT, 03/17/22 14:41:00 EDT, [facility] [id number], Partial fill upon patient request if the prescription is for a schedule II opioid drug.... Start Date: 03/17/22 Stop Date: 03/12/23 Status: Ordered aspirin 81 mg oral tablet, chewable 81 mg, 1, tablet, By Mouth, Daily, # 120 tablet, Refills 3, Tot. Refills 3, Maintenance, 10/02/21 11:47:00 EST, Route to Pharmacy Electronically, [facility] [id number], Partial fill upon patient request if the prescription is... Start Date: 10/02/21 Stop Date: 01/25/23 Status: Ordered atorvastatin 80 mg oral tablet 1 tablet = 80 mg, By Mouth, Daily, # 30 tablet, 11 Refills, Maintenance, 11/07/21 14:34:00 EST, Tablet, [facility] [id number], Partial fill upon patient request if the prescription is for a schedule II opioid drug., 170, cm, 0... Start Date: 11/07/21 Status: Ordered Biktarvy oral tablet 1 tablet, By Mouth, Daily, # 30 tablet, 11 Refills, [facility], 30, TAKE ONE TABLET BY MOUTH [...] Soft Stop, 03/05/22 10:37:00 EDT, [facility] [id number], Partial fill upon patient request if the prescriptio... Start Date: 03/05/22 Status: Ordered hydrocortisone 0.5% topical cream See Instructions, use sparingly on face, use on all other affected areas, # 28 Gm, 11 Refills, Maintenance, 03/07/21 6:50:00 EDT, [place], [place] - [id number], use sparingly on face, use on all other affected areas, 174, cm, 01/13/21... Start Date: 03/07/21 Status: Ordered Incruse Ellipta 62.5 mcg/inh inhalation powder 1 puffs, Inhalation, Every 24 hours, doses should be taken AT least 24 HOURS APART, # 30 Unknown, 11 Refills, 08/25/21 12:34:00 EST, [facility] [id number], 173, cm, 08/25/21 12:31:00 EST, Height, 84, kg, 04/19/21 2:36:00 EDT,... Start Date: 08/25/21 Status: Ordered ketoconazole 2% topical cream 1 application, Topically, Daily, # 30 Gm, 11 Refills, Maintenance, 04/20/22 9:23:00 EDT, [facility] [id number], 1 application Topically Daily, 173, cm, 12/05/21 17:38:00 EDT,Height, 127, kg, 12/05/21 17:38:00 EDT, Dry Weight Start Date: 04/20/22 Status: Ordered Lidoderm 5% film 1 patch, Topically, Daily, # 30 patch, 11 Refills, Maintenance, 03/19/22 21:12:00 EDT, [facility] [id number], Partial fill upon patient request if the [...] 6:32:00 EDT, Tablet, [facility] [id number], 1 tablet By Mouth Daily, 173, cm, 12/05/21 17:38:00 EDT,Height, 127, kg, 12/05/21 17:38:00 EDT, Dry Weight Start Date: 12/15/21 Status: Ordered Narcan 4 mg/0.1 mL nasal spray See Instructions, 4 mg Once may repeat every 2 to 3 minutes until patient responds, # 2 each, 3 Refills, Soft Stop, 03/05/22 10:07:00 EDT, [facility] [id number], 173, cm, 12/05/21 17:38:00 EDT, Height, 127, kg, 12/05/21 17:38... Start Date: 03/05/22 Status: Ordered Nicotine 2 mg gum 1 each = 2 mg, Chew, Every 2 hours, PRN as needed for smoking cessation, for 4 week(s), # 160 each,11 Refills, Acute 09/11/22 12:53:00 EST, 10/10/21 12:53:00 EST, Gum, [facility] [id number], Partial fill upon patient request... Start Date: 10/10/21 Stop Date: 09/11/22 Status: Ordered ondansetron 4 mg oral tablet, disintegrating 1 tablet = 4 mg, By Mouth, Every 8 hours, PRN as needed for nausea/vomiting, # 12 tablet, 11 Refills, Maintenance, 08/21/21 13:33:00 EST, DIS Tablet, [facility] [id number], Partial fill upon patient request if the [...] Refills, Maintenance, 12/02/21 16:55:00 EDT, REC Powder, [facility] [id number], 17 Gm By Mouth 2 times a day,x30 days,PRN:Constip... Start Date: 12/02/21 Stop Date: 04/01/22 Status: Ordered rOPINIRole 0.5 mg oral tablet 1 tablet = 0.5 mg, By Mouth, Daily at bedtime, 1 to 3 hours before bedtime, # 30 tablet, 11 Refills, Maintenance, 08/21/21 13:32:00 EST, Tablet, [facility] [id number], Partial fill upon patient request if the prescription is f... Start Date: 08/21/21 Status: Ordered sildenafil 100 mg oral tablet 1 tablet = 100 mg, By Mouth, Daily, 1 hour before sexual activity, # 20 tablet, 11 Refills, Maintenance, 04/20/22 9:24:00 EDT, Tablet, [facility] [id number], disreguard last script for 0.5 tab, 173, cm, 12/05/21 17:38:00 EDT,... Start Date: 04/20/22 Status: Ordered varenicline 1mg tablet 1 tablet = 1 mg, By Mouth, Daily, 0.5 tab daily x 3 days then 0.5 tab BID x 3 days then 1 tab BID, # 30 tablet, 4 Refills, Maintenance, 04/01/22 16:45:00 EDT, Tablet, [facility] [id number], Partial fill upon patient request if... Start [...] 11 Refills, Maintenance, 06/04/22 17:32:00 EDT, Capsule, [place], [place] - [id number], D/c vitamin high dosed, 173, cm, 05/10/22 [...] - 01/2019 [facility]irmed [facility] Di[facility] 1 Confirmed [...] Name: Conner QUEEN, Namrata Agarwal Address: Address: [address] [place] [address], -Level [facility] [place], [place] [address]
--- OUTSIDE RECORDS SUMMARY | 2023-07-12 20:14 | XMS_ITS | Continuity of Care Document ---
Author Name Unknown Organization [facility] Address Unknown Care Team Providers Care Vascular Ultrasound Technician Name Role Phone Conner QUEEN, Namrata Agarwal Primary Care Physician [phone] Encounter [facility] Date(s): 10/02/21 - 12/11/21 [facility] Attending Physician: Shahana Pepper MD, Grace Referring Physician: Eduardo Morales MD Allergies, Adverse Reactions, Alerts Substance Reaction [...] 13:14:00 EST, Powder, Route to Pharmacy Electronically, [id number], [facility] - Spri... Start Date: 08/21/21 Stop Date: 01/18/22 Status: Ordered Albuterol (Eqv-ProAir HFA) 90 mcg/inh inhalation aerosol 2 puffs, Inhalation, Every 6 hours, # 8.5 Gm, 11 Refills, 08/25/21 12:34:00 EST, [facility] - [place], [place] - [id number], 25, 2 puffs Inhalation Every 6 hours, 173, cm, 08/25/21 12:31:00 EST, Height, 84, kg, 04/19/21 2:36:00 EDT, Dry Weight Start Date: 08/25/21 Status: Ordered amLODIPine 10 mg oral tablet 10 mg, 1, tablet, By Mouth, Daily, # 30 tablet, Refills 11, Tot. Refills 11, Maintenance, 08/27/21 16:46:00 EST, Route to Pharmacy Electronically, [facility] [id number], 173,cm, 08/25/21 12:31:00 EST, Height, 84, kg, 04/19/21... Start Date: 08/27/21 Status: Ordered aspirin 81 mg oral tablet, chewable 81 mg, 1, tablet, By Mouth, Daily, # 120 tablet, Refills 3, Tot. Refills 3, Maintenance, 10/02/21 11:47:00 EST, Route to Pharmacy Electronically, [facility] [id number], Partial fill upon patient request if the prescription is... Start Date: 10/02/21 Stop Date: 01/25/23 Status: Ordered atorvastatin 80 mg oral tablet 1 tablet = 80 mg, By Mouth, Daily, # 30 tablet, 11 Refills, Maintenance, 11/07/21 14:34:00 EST, Tablet, [facility] [id number], Partial fill upon patient request if the prescription is for a schedule II opioid drug., 170, cm, 0... Start Date: 11/07/21 Status: Ordered atovaquone 750 mg/5 mL oral suspension 10 mL = 1,500 mg, By Mouth, Daily, for 60 days, # 600 mL, 11 Refills, Acute 10/28/23 14:35:00 EST, 11/07/21 14:35:00 EST, Suspension, [facility] [id number], Pls cancel bactrim prescription. Atovaquone to replace bactrim, 170,... Start Date: 11/07/21 Stop Date: 10/28/23 Status: Ordered Biktarvy oral tablet 1 tablet, By Mouth, Daily, # 30 tablet, 11 Refills, [facility] 30, TAKE ONE TABLET BY MOUTH DAILY, [...] 12/02/21 16:54:00 EDT, Route to Pharmacy Electronically, [facility] - [place], [place] - [id number], Partial fill upon pilar... Start Date: 12/02/21 [...] FOR CONSTIPATION, # 60 each, 2 Refills, [facility], 170, cm, 10/10/21 13:45:00 EST, Height, 110, kg, 09/29/21 21:14:00 EST, Dry Weight Start Date: 12/01/21 Status: Ordered hydrocortisone 0.5% topical cream See Instructions, use sparingly on face, use on all other affected areas, # 28 Gm, 11 Refills, Maintenance, 03/07/21 6:50:00 EDT, [facility] [id number], use sparingly on face, use on all other affected areas, 174, cm, 01/13/21... Start Date: 03/07/21 Status: Ordered Incruse Ellipta 62.5 mcg/inh inhalation powder 1 puffs, Inhalation, Every 24 hours, doses should be taken AT least 24 HOURS APART, # 30 Unknown, 11 Refills, 08/25/21 12:34:00 EST, [facility] [id number], 173, cm, 08/25/21 12:31:00 EST, Height, 84, kg, 04/19/21 2:36:00 EDT,... Start Date: 08/25/21 Status: Ordered ketoconazole 2% topical cream 1 application, Topically, Daily, # 30 Gm, 11 Refills, Maintenance, 12/02/21 16:56:00 EDT, [facility] [id number], 1 application Topically Daily, 170, cm, 10/10/21 [...] 0 Refills, Maintenance, 11/11/21 17:22:00 EST, Tablet, [facility] [id number], 170, cm, 10/10/21 13:45... Start Date: 11/11/21 Stop Date: 12/11/21 Status: Ordered multivitamin with minerals Calcium and Magnesium oral tablet 1 tablet, By Mouth, Daily, # 30 tablet, 11 Refills, Maintenance, 03/07/21 6:51:00 EDT, Tablet, [facility] [id number], 1 tablet By Mouth Daily, 174, cm, 01/13/21 8:20:00 EDT, Height, 93, kg, 01/08/21 18:17:00 EDT, Dry Weight Start Date: 03/07/21 Status: Ordered Narcan 4 mg/0.1 mL nasal spray See Instructions, 4 mg Once may repeat every 2 to 3 minutes until patient responds, # 2 each, 1 Refills, Soft Stop, 08/24/19 9:41:00 EST, [place], [place] -, MAMADOU García to picking tech for Pt., 170, cm, 08/24/19 9:21:00 EST, Height, 66.36,... Start Date: 08/24/19 Status: Ordered Nicotine 2 mg gum 1 each = 2 mg, Chew, Every 2 hours, PRN as needed for smoking cessation, for 4 week(s), # 160 each,11 Refills, Acute 09/11/22 12:53:00 EST, 10/10/21 12:53:00 EST, Gum, [facility] [id number], Partial fill upon patient request... Start Date: [...] Refills, Maintenance, 08/21/21 13:33:00 EST, DIS Tablet, [facility] [id number], Partial fill upon patient request if the [...] 10/02/21 11:47:00 EST, Route to Pharmacy Electronically, [facility] [id number], Partial fill upon patient request if the prescription is f... Start Date: 10/02/21 Stop Date: 12/31/21 Status: Ordered polyethylene glycol 3350 oral powder for reconstitution See Instructions, DISSOLVE 17grams powder IN WATER BEFORE drinking 2 (two) times a day NEEDED FOR CONSTIPATION, # 510 Gm, 11 Refills, [facility], 30, DISSOLVE 17grams powder IN WATER BEFORE drinking 2 (two) times a day NEEDED FOR CONSTIPATI... Start Date: 09/03/21 Status: Ordered polyethylene glycol 3350 oral powder for reconstitution = 17 Gm, By Mouth, 2 times a day, PRN Constipation, dissolve in water before taking, # 527 Gm, 3 Refills, Maintenance, 12/02/21 16:55:00 EDT, REC Powder, [facility] [id number], 17 Gm By Mouth 2 times a day,x30 days,PRN:Constip... Start Date: 12/02/21 Stop Date: 04/01/22 Status: Ordered rOPINIRole 0.5 mg oral tablet 1 tablet = 0.5 mg, By Mouth, Daily at bedtime, 1 to 3 hours before bedtime, # 30 tablet, 11 Refills, Maintenance, 08/21/21 13:32:00 EST, Tablet, [facility] [id number], Partial fill upon patient request if the prescription is f... Start Date: 08/21/21 Status: Ordered Senna 8.6 mg oral tablet 1 or 2 tablets, By Mouth, Daily at bedtime, PRN, # 60 tablet, Refills 5, Tot. Refills 5, Maintenance, Constipation, 10/10/21 14:43:00 EST, Route to Pharmacy Electronically, [facility] [id number] Tablet, Partial fill upon patie... Start Date: 10/10/21 Status: Ordered sildenafil 100 mg oral tablet 1 tablet = 100 mg, By Mouth, Daily, 1 hour before sexual activity, # 20 tablet, 11 Refills, Maintenance, 03/07/21 6:49:00 EDT, Tablet, [facility] [id number], Partial fill upon patient request if the prescription is for a sched... Start Date: 03/07/21 Status: Ordered varenicline 1mg tablet 1 tablet = 1 mg, By Mouth, Daily, 0.5 tab daily x 3 days then 0.5 tab BID x 3 days then 1 tab BID, # 30 tablet, 4 Refills, Maintenance, 11/13/21 15:15:00 EST, Tablet, [facility] [id number], Partial fill upon patient request if... 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
--- OUTSIDE RECORDS SUMMARY | 2023-07-12 20:14 | XMS_ITS | Continuity of Care Document ---
Author Name Unknown Organization [facility] Address [address] [place] [address]- Care Team Providers Care Air Antisubmarine Officer Name Role Phone Conner QUEEN, Namrata Agarwal Primary Care Physician [place] [facility] [place] Date(s): 03/16/23 - 04/15/23 [facility] [address], [place] [id number] Allergies, Adverse Reactions, Alerts Substance Reaction [...] 02/16/23 10:45:00 EDT, Route to Pharmacy Electronically, [facility] [place], [place] - [id number], 173, cm, 01/21/23 11:36:00 EDT, Height, 93.18, kg, 2... Start Date: 02/16/23 Status: Ordered aspirin 81 mg oral tablet, chewable 81 mg, 1, tablet, By Mouth, Daily, # 90 tablet, Refills 3, Tot. Refills 3, Maintenance, 02/16/23 10:45:00 EDT, Route to Pharmacy Electronically, [facility] [id number], Partial fill upon patient request if the prescription is f... Start Date: 02/16/23 Status: Ordered atorvastatin 80 mg oral tablet 1 tablet = 80 mg, By Mouth, Daily, # 90 tablet, 3 Refills, Maintenance, 02/16/23 10:45:00 EDT, Tablet, [facility] [id number], Partial fill upon patient request if the prescription is for a schedule II opioid drug., 173, cm, 05... Start Date: 02/16/23 Status: Ordered Biktarvy oral tablet 1 tablet, By Mouth, Daily, must get appt and labs for refills, # 30 tablet, 0 Refills, Maintenance,12/16/22 19:18:00 EDT, [facility] [id number], 30, 1 tablet By Mouth Daily,Instr:must get appt and labs for refills, 173, cm, 0... Start Date: 12/16/22 Status: Ordered Colace sodium 100 mg oral capsule 100 mg, 1, capsule, By Mouth, 2 times a day, PRN, # 180 capsule, Refills 3, Tot. Refills 3, Maintenance, for constipation, 02/16/23 10:45:00 EDT, Route to Pharmacy Electronically, [facility] [id number], Partial fill upon patie... Start Date: 02/16/23 Status: Ordered EpiPen 2-Devin 0.3 mg injectable kit = 0.3 mg, Intramuscular, Once, may repeat if necessary, # 2 each, 1 Refills, Soft Stop, 04/14/23 14:07:00 EDT, [facility] [id number], Partial fill upon patient request if theprescription is for a schedule II opioid drug., 176... Start Date: 04/14/23 Status: Ordered fluticasone-salmeterol 250 mcg-50 mcg inhalation powder 1, puffs, Inhalation, 2 times a day, # 3 each, Refills 3, Tot. Refills 3, Maintenance, 02/16/23 10:45:00 EDT, Powder, Route to Pharmacy Electronically, [id number], [facility], [place] - [id number], 173, cm, 01/04... Start Date: 02/16/23 Status: Ordered Incruse Ellipta 62.5 mcg/inh inhalation powder 1 puffs, Inhalation, Every 24 hours, # 3 each, 3 Refills, Maintenance, 02/16/23 10:45:00 EDT, [place], [place] - [id number], 173, cm, 01/21/23 11:36:00 EDT, Height, 93.18, kg, 08/12/22 0:40:00 EST, Dry Weight Start Date: 02/16/23 Status: Ordered Leonia 200 mg, By Mouth, Daily at bedtime, [...] tablet, 3 Refills,Maintenance, 02/16/23 10:45:00 EDT, Tablet, [place], [place] - [id number], Partialfill upon patient request if the prescription is fo... Start Date: 02/16/23 Status: Ordered Ventolin HFA 108 mcg/inh inhalation aerosol with adapter 2 puffs, Inhalation, 4 times a day, PRN for wheezing, # 3 each, 3 Refills, Maintenance, 02/16/23 10:45:00 EDT, Aerosol, [facility] [id number], Partial fill upon patient request if the prescription is for a schedule II opioid d... Start Date: 02/16/23 Status: Ordered Vitamin D3 1000 intl units oral capsule 1 capsule = 25 mcg, By Mouth, Daily, # 90 capsule, 3 Refills, Maintenance, 02/16/23 10:45:00 EDT, Capsule, [place], [place] - [id number], D/c vitamin high dosed, 173, cm, 01/21/23 [...] - 01/2019 Confirmed Active Depression - [facility] Confirmed Active Diastolic dysfunction 1 Confirmed [...] Team Personnel Name: Jadiel Watson RN Position: [facility] ED RN W/OE and Tasks Member Role: Primary Care Nurse Name: Dede Mccloud RN Position: [facility] RN Member Role: Primary Care Nurse Name: Judy Gonzales RN Position: [facility] RN Member Role: Primary Care Nurse Name: Jake Moon Position: [facility] RN Supv Member Role: Primary Care Nurse Name: Enma Manriquez RN Position: [facility] AMB Nurse Member Role: Primary Care Nurse Name: Zuhair Lopez RN Position: [facility] RN Member Role: Primary Care Nurse Name: Edie Bob RN Position: [facility] RN Member Role: Primary Care Nurse Name: Lisbet Gardiner RN Position: [facility] RN Member Role: Primary Care Nurse Name: Namrata Prieto MD Position: [facility] Physician - Primary Care Member Role: PCP Address: Address: [address] [place] [id number]- Name: Carolina Valero RN Position: [facility] RN Member Role: Primary Care Nurse Name: Nishi San RN Position: [facility] RN Member Role: Primary Care Nurse Name: Micky Boyd RN Position: [facility] RN Member Role: Primary Care Nurse Name: Lauri Combs NP Position: Reference Physician Member Role: Primary Care Nurse Address: Address: [address] [place] [address] [address] Clinical [facility] [place] [address]- [place] Name: Griselda Rand Position: [facility] RN Supv Member Role: Primary Care Nurse Care Team Related Persons Name: LUIS SAN Address: [place] [address] Name: BROOKE OWEN Address: home [address] [address] Name: KARYN OWEN Address: home [address] [place] [address] Name: DOMINGO LEONE Address: home [address] [place] [address]
--- OUTSIDE RECORDS SUMMARY | 2023-07-12 20:14 | XMS_ITS | Continuity of Care Document ---
Author Name Unknown Organization [facility] Address [address] [place] [address]- Care Team Providers Care Machine Repair Person Name Role Phone Conner QUEEN, Namrata Agarwal Primary Care Physician [phone] Encounter [facility] [place] Date(s): 12/02/22 - 01/28/23 [facility] [address] [place] [id number] Attending Physician: Not on Staff, Attending [...] 8:46:00 EST, Powder, Route to Pharmacy Electronically, [id number], [facility] - Spr... Start Date: 07/20/22 Stop Date: 07/15/23 Status: Ordered amLODIPine 10 mg oral tablet 10 mg, 1, tablet, By Mouth, Daily, # 30 tablet, Refills 11, Tot. Refills 11, Maintenance, 07/20/22 8:43:00 EST, Route to Pharmacy Electronically, [facility] [id number], 173, cm, 05/10/22 20:46:00 EDT, Height, 95.5, kg, 2... Start Date: 07/20/22 Status: Ordered aspirin 81 mg oral tablet, chewable 81 mg, 1, tablet, By Mouth, Daily, # 30 tablet, Refills 11, Tot. Refills 11, Maintenance, 07/20/22 8:43:00 EST, Route to Pharmacy Electronically, [facility] [id number], Partial fill upon patient request if the prescription is... Start Date: 07/20/22 Stop Date: 11/12/23 Status: Ordered atorvastatin 80 mg oral tablet 1 tablet = 80 mg, By Mouth, Daily, # 30 tablet, 11 Refills, Maintenance, 07/20/22 8:43:00 EST, Tablet, [facility] [id number], Partial fill upon patient request if the prescription is for a schedule II opioid drug., 173, cm, 09... Start Date: 07/20/22 Status: Ordered Biktarvy oral tablet 1 tablet, By Mouth, Daily, must get appt and labs for refills, # 30 tablet, 0 Refills, Maintenance,12/16/22 19:18:00 EDT, [facility] [id number], 30, 1 tablet By Mouth Daily,Instr:must get [...] 12/24/22 19:14:00 EDT, Route to Pharmacy Electronically, [facility]... Start Date: 12/24/22 Status: Ordered Crutches [...] 1 Refills, Soft Stop, 03/05/22 10:37:00 EDT, [facility] - [place], [place] - [id number], Partial fill upon patient request if the prescriptio... Start Date: 03/05/22 Status: Ordered fluticasone-salmeterol 250 mcg-50 mcg inhalation powder 1, puffs, Inhalation, 2 times a day, patient needs labs and appt before more refills, # 60 each, Refills 0, Tot. Refills 0, Maintenance, 12/16/22 19:27:00 EDT, Powder, Route to Pharmacy Electronically, [id number], [facility]... Start Date: 12/16/22 Status: Ordered [...] Gm, 11 Refills, Maintenance, 04/20/22 9:23:00 EDT, [facility], [facility] [id number], 1 application Topically Daily, 173, cm, 12/05/21 17:38:00 EDT,Height, 127, kg, 12/05/21 17:38:00 EDT, Dry Weight Start Date: 04/20/22 Status: Ordered Lidoderm 5% film 1 patch, Topically, Daily, # 30 patch, 11 Refills, Maintenance, 03/19/22 21:12:00 EDT, [facility] [id number], Partial fill upon patient request if the [...] 11 Refills, Maintenance, 07/20/22 8:43:00 EST, Tablet, [place], [place] - [id number], 1 tablet By Mouth Daily, 173, cm, 05/10/22 20:46:00 EDT,Height, 95.5, kg, 05/10/22 20:46:00 EDT, Dry Weight Start Date: 07/20/22 Status: Ordered Narcan 4 mg/0.1 mL nasal spray See Instructions, 4 mg Once may repeat every 2 to 3 minutes until patient responds, # 2 each, 3 Refills, Soft Stop, 03/05/22 10:07:00 EDT, [facility], [facility] [id number], 173, cm, 12/05/21 17:38:00 EDT, Height, 127, [...] 11:37:00 EDT, Lotion, [facility] [id number], Partial fill upon pa... Start Date: 12/24/22 Status: Ordered polyethylene glycol 3350 oral powder for reconstitution = 17 Gm, By Mouth, 2 times a day, PRN Constipation, dissolve in water before taking, # 527 Gm, 3 Refills, Maintenance, 12/02/21 16:55:00 EDT, REC Powder, [facility] [id number], 17 Gm By Mouth 2 times a day,x30 days,PRN:Constip... Start Date: 12/02/21 Stop Date: 04/01/22 Status: Ordered rOPINIRole 0.5 mg oral tablet 1 tablet = 0.5 mg, By Mouth, Daily at bedtime, 1 to 3 hours before bedtime, # 30 tablet, 11 Refills, Maintenance, 07/20/22 8:43:00 EST, Tablet, [facility] [id number], Partialfill upon patient request if the prescription is fo... Start Date: 07/20/22 Status: Ordered Senna 8.6 mg oral tablet 1 or 2 tablets, By Mouth, Daily at bedtime, PRN, Must make appt and get labs for refills, # 180 tablet, Refills 0, Tot. Refills 0, Maintenance, Constipation, 12/16/22 19:14:00 EDT, Route to Pharmacy Electronically, [place], [place] -... Start Date: 12/16/22 Status: Ordered sildenafil 100 mg oral tablet 1 tablet = 100 mg, By Mouth, Daily, 1 hour before sexual activity, # 20 tablet, 11 Refills, Maintenance, 04/20/22 9:24:00 EDT, Tablet, [facility] [id number], disreguard last script for 0.5 tab, 173, cm, 12/05/21 17:38:00 EDT,... Start Date: 04/20/22 Status: Ordered varenicline 1mg tablet 1 tablet = 1 mg, By Mouth, Daily, 0.5 tab daily x 3 days then 0.5 tab BID x 3 days then 1 tab BID, # 30 tablet, 4 Refills, Maintenance, 09/04/22 15:20:00 EST, Tablet, [facility] [id number], Partial fill upon patient request if... Start Date: 09/04/22 Status: Ordered Ventolin HFA 108 mcg/inh inhalation aerosol with adapter 2 puffs, Inhalation, 4 times a day, PRN for wheezing, must get appt and labs for refills, # 3 each,0 Refills, Maintenance, 12/16/22 19:15:00 EDT, Aerosol, [facility] [id number], Partial fill upon patient request if the prescr... Start Date: 12/16/22 Status: Ordered Vitamin D3 1000 intl units oral capsule 1 capsule = 25 mcg, By Mouth, Daily, # 30 capsule, 11 Refills, Maintenance, 06/04/22 17:32:00 EDT, Capsule, [facility] [id number], D/c vitamin high dosed, 173, cm, 05/10/22 [...] - 01/2019 Confirmed Active Depression - [facility], [facility] Confirmed Active Diastolic dysfunction 1 Confirmed 09/27/21 [...] Team Personnel Name: Jadiel Watson RN Position: [facility] ED RN W/OE and Tasks Member Role: Primary Care Nurse Name: Dede Mccloud RN Position: [facility] RN Member Role: Primary Care Nurse Name: Judy Gonzales RN Position: [facility] RN Member Role: Primary Care Nurse Name: Enma Manriquez RN Position: [facility] AMB Nurse Member Role: Primary Care Nurse Name: Zuhair Lopez RN Position: [facility] RN Member Role: Primary Care Nurse Name: Edie Bob RN Position: [facility] RN Member Role: Primary Care Nurse Name: Lisbet Gardiner RN Position: [facility] RN Member Role: Primary Care Nurse Name: Namrata Prieto MD Position: [facility] Physician - Primary Care Member Role: PCP Address: Address: [address] [place] [address], -[facility] [place] [address]- Name: Carolina Valero RN Position: [facility] RN Member Role: Primary Care Nurse Name: Nishi San RN Position: [facility] RN Member Role: Primary Care Nurse Name: Micky Boyd RN Position: [facility] RN Member Role: Primary Care Nurse Name: Lauri Combs NP Position: Reference Physician Member Role: Primary Care Nurse Address: Address: [address] [facility] [address] Clinical & [place] [address]- [place] Care Team Related Persons Name: LUIS SAN Address: [place] [address] Name: BROOKE OWEN Address: home [address] [address] Name: KARYN OWEN Address: [address] [place] [address] Name: DOMINGO LEONE Address: home [address] [place] [address]
--- OUTSIDE RECORDS SUMMARY | 2023-07-12 20:14 | XMS_ITS | Continuity of Care Document ---
Author Name Unknown Organization [facility] Address [address] [place] [address]- Care Team Providers Care Shank Sorter Name Role Phone Calvin EWLLS, Giovanna Bernard Primary Care Physician [place] [facility] [place]): [place] - 12/05/19 [facility] [address] [place] [address]- [facility] Attending Physician: Giovanna Simpson NP Admitting Physician: Emmett QUEEN, Abdullahi Machuca Allergies, Adverse Reactions, Alerts Substance Reaction Severity Status shellfish Active Latex rash Active Immunizations Given and Recorded Vaccine Date Status Refusal Reason influenza virus vaccine, inactivated 06/08/19 Give n Medications amLODIPine 5 mg oral tablet 5 mg, 1, tablet, By Mouth, Daily, # 30 tablet, Refills 5, Tot. Refills 5, Maintenance, 11/28/19 9:43:00 EDT, Route to Pharmacy Electronically, [facility] [place], [place] -, 172, cm, 09/26/19 8:57:00 EST, Height, 66.3, kg, 09/11/19 13:26:00 EST,... Start Date: 11/28/19 Stop Date: 05/26/20 Status: Ordered atovaquone 750 mg/5 mL oral suspension 10 mL = 1,500 mg, By Mouth, Daily, for 60 days, # 600 mL, 5 Refills, Acute 11/22/20 9:44:00 EDT, 11/28/19 9:44:00 EDT, Suspension, [facility] [place], [place] -, Pls cancel bactrim prescription. Atovaquone to replace bactrim, 172, cm, 09/26/19 8... Start Date: 11/28/19 Stop Date: 11/22/20 Status: Ordered Biktarvy oral tablet 1 tablet, By Mouth, Daily, # 30 tablet, 5 Refills, Maintenance, 08/24/19 9:40:00 EST, Tablet, [place], [place] -, 1 tablet By Mouth Daily,x30 [...] 09/26/19 12:05:00 EST, Route to Pharmacy Electronically, [place], [place] -, 172, cm, 09/26/19 8:57:00 EST, [place]... Start Date: 09/26/19 Status: Ordered fluconazole 200 mg oral tablet 1 tablet = 200 mg, By Mouth, Daily, for 28 days, # 28 tablet, 5 Refills, Acute 02/08/20 9:42:00 EDT, 08/24/19 9:42:00 EST, Tablet, [place], [place] -, Decrease in dose., 170, cm, 08/24/19 9:21:00 EST, Height, 66.36, kg, 03/10/19 16:51... Start Date: 08/24/19 Stop Date: 02/08/20 Status: Ordered gabapentin 100 mg oral capsule 200 mg, 2, capsule, By Mouth, 3 times a day, # 180 capsule, Refills 3, Tot. Refills 3, Maintenance,11/28/19 9:44:00 EDT, Route to Pharmacy Electronically, [place], [place] -, 172, cm, 09/26/19 8:57:00 EST, Height, 66.3, kg, 09/11/19... Start Date: 11/28/19 Stop Date: 03/27/20 Status: Ordered lithium 300 mg oral capsule 2 capsule = 600 mg, By Mouth, Daily at bedtime, # 60 capsule, 3 Refills, Maintenance, 11/28/19 9:41:00 EDT, [place], [place] -, 172, cm, 09/26/19 8:57:00 EST, [...] tablet, 5 Refills, Maintenance, 11/28/19 9:41:00EDT, Tablet, [place], [place] -, 172, cm, 09/26/19 8:57:00 EST, Height, 66.3, kg, 09/11/19 13:26:00 EST, Dry Weight Start Date: 11/28/19 Stop Date: 05/26/20 Status: Ordered multivitamin with minerals Calcium and Magnesium oral tablet 1 tablet, By Mouth, Daily, # 30 tablet, 5 Refills, Maintenance, 09/26/19 12:05:00 EST, Tablet, [place], [place] -, 1 tablet By Mouth Daily,x30 days, 172, cm, 09/26/19 8:57:00 EST, Height, 66.3, kg, 09/11/19 13:26:00 EST, Dry Weight Start Date: 09/26/19 Stop Date: 03/24/20 Status: Ordered Narcan 4 mg/0.1 mL nasal spray See Instructions, 4 mg Once may repeat every 2 to 3 minutes until patient responds, # 2 each, 1 Refills, Soft Stop, 08/24/19 9:41:00 EST, [place], [place] -, 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
--- OUTSIDE RECORDS SUMMARY | 2023-07-12 20:14 | XMS_ITS | Continuity of Care Document ---
Author Name Unknown Organization [facility] Address [address] [place] [address]- Care Team Providers Care Rheumatologist Name Role Phone Conner QUEEN, Namrata Agarwal Primary Care Physician Encounter [facility] Date(s): 03/14/20 - 04/13/20 [facility] [address] [place] [address]- [facility] Allergies, Adverse Reactions, Alerts Substance Reaction Severity Status shellfish Active Latex rash Active Immunizations Given and Recorded Vaccine Date Status Refusal Reason influenza virus vaccine, inactivated 06/08/19 Give n Medications amLODIPine 5 mg oral tablet 5 mg, 1, tablet, By Mouth, Daily, # 30 tablet, Refills 5, Tot. Refills 5, Maintenance, 11/28/19 9:43:00 EDT, Route to Pharmacy Electronically, [facility] - [place], [place] -, kenan Romeo, 09/26/19 8:57:00 EST, Height, 66.3, kg, 09/11/19 13:26:00 EST,... Start Date: 11/28/19 Stop Date: 05/26/20 Status: Ordered atovaquone 750 mg/5 mL oral suspension 10 mL = 1,500 mg, By Mouth, Daily, for 60 days, # 600 mL, 5 Refills, Acute 11/22/20 9:44:00 EDT, 11/28/19 9:44:00 EDT, Suspension, [facility] - [place], [place] -, Pls cancel bactrim prescription. Atovaquone to replace bactrim, 172, cm, 09/26/19 8... Start Date: 11/28/19 Stop Date: 11/22/20 Status: Ordered Biktarvy oral tablet 1 tablet, By Mouth, Daily, for 30 days, # 30 tablet, 5 Refills, Hard Stop 08/25/20 12:37:00 EST, 02/27/20 12:37:00 EDT, Tablet, [place], [place] -, 1 tablet By Mouth Daily,x30 days, 171, cm, 02/22/20 10:16:00 EDT, Height, 59.5, kg, 04... Start Date: 02/27/20 Stop Date: 08/25/20 Status: Ordered Biktarvy oral tablet 1 tablet, By Mouth, Daily, # 30 tablet, 5 Refills, Maintenance, 08/18/20 5:43:00 EST, Tablet, [place], [place] -, 1 tablet By Mouth Daily,x30 [...] 12/29/19 16:19:00 EDT, Route to Pharmacy Electronically, [place], [place] -, 171, cm, 12/29/19 15:28:00 EDT, Hei... Start Date: 12/29/19 Status: Ordered gabapentin 100 mg oral capsule 200 mg, 2, capsule, By Mouth, 3 times a day, # 180 capsule, Refills 3, Tot. Refills 3, Maintenance,02/27/20 12:37:00 EDT, Route to Pharmacy Electronically, [place], [place] -, 171, cm, 02/22/20 10:16:00 EDT, Height, 59.5, kg, 2... Start Date: 02/27/20 Stop Date: 06/26/20 Status: Ordered hydrocortisone 0.5% topical cream See Instructions, apply in a thin film to the hands and rub in gently 3 times a day for 5 days, # 28 Gm, 1 Refills, Maintenance, 02/27/20 12:35:00 EDT, [place], [place] -, apply in athin film to the hands and rub in gently 3 times a... Start Date: 02/27/20 Status: Ordered ketoconazole 2% topical shampoo 1 application, Topically, Daily, try daily for 5 days as a shampoo, # 120 mL, 3 Refills, Soft Stop,12/21/19 11:58:00 EDT, Shampoo, [place], [place] -, 1 application Topically Daily,Instr:try daily for 5 days as a shampoo, 172, cm, 01... Start Date: 12/21/19 Status: Ordered lithium 300 mg oral capsule See Instructions, 1 capsule by mouth in the AM and 2 capsule By Mouth Daily at bedtime 30 days, # 90 capsule, 2 Refills, Maintenance, 03/26/20 9:27:00 EDT, [place], [place] -, Increase in dose per Psychiatry, 171, cm, 03/26/20 8:54:00... Start Date: 03/26/20 Status: Ordered LORazepam 0.5 mg oral tablet 1 tablet = 0.5 mg, By Mouth, 2 times a day, PRN Anxiety, # 60 tablet, 2 Refills, Maintenance, 02/27/20 12:37:00 EDT, Tablet, [place], [place] -, 171, cm, 02/22/20 10:16:00 EDT, [...] tablet, 5 Refills, Maintenance, 11/28/19 9:41:00EDT, Tablet, [place], [place] -, 172, cm, 09/26/19 8:57:00 EST, Height, 66.3, kg, 09/11/19 13:26:00 EST, Dry Weight Start Date: 11/28/19 Stop Date: 05/26/20 Status: Ordered multivitamin with minerals Calcium and Magnesium oral tablet 1 tablet, By Mouth, Daily, # 30 tablet, 5 Refills, Maintenance, 09/26/19 12:05:00 EST, Tablet, [place], [place] -, 1 tablet By Mouth Daily,x30 days, 172, cm, 09/26/19 8:57:00 EST, Height, 66.3, kg, 09/11/19 13:26:00 EST, Dry Weight Start Date: 09/26/19 Stop Date: 03/24/20 Status: Ordered Narcan 4 mg/0.1 mL nasal spray See Instructions, 4 mg Once may repeat every 2 to 3 minutes until patient responds, # 2 each, 1 Refills, Soft Stop, 08/24/19 9:41:00 EST, [place], [place] -, 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 Start Date: 11/28/19 Stop Date: 03/27/20 Status: Ordered SEROquel 25 mg oral tablet 25 mg, 1, tablet, By Mouth, Daily at bedtime, # 30 tablet, Refills 2, Tot. Refills 2, Maintenance, 03/26/20 9:29:00 EDT, Route to Pharmacy Electronically, [facility] - [place], [place] -, 171, cm, 03/26/20 8:54:00 EDT, [...]
--- OUTSIDE RECORDS SUMMARY | 2023-07-12 20:14 | XMS_ITS | Continuity of Care Document ---
Author Name Unknown Organization [facility] Address [address] [place] [address]- Care Team Providers Care Ring Facer Name Role Phone Conner QUEEN, Namrata Agarwal Primary Care Physician [phone] Encounter [facility] Date(s): 10/26/22 - 11/25/22 [facility] [address] [place] [id number]- Allergies, Adverse Reactions, Alerts Substance Reaction Severity [...] 8:46:00 EST, Powder, Route to Pharmacy Electronically, [id number], [facility] - Spr... Start Date: 07/20/22 Stop Date: 07/15/23 Status: Ordered amLODIPine 10 mg oral tablet 10 mg, 1, tablet, By Mouth, Daily, # 30 tablet, Refills 11, Tot. Refills 11, Maintenance, 07/20/22 8:43:00 EST, Route to Pharmacy Electronically, [facility] [id number], 173, cm, 05/10/22 20:46:00 EDT, Height, 95.5, kg, ... Start Date: 07/20/22 Status: Ordered Asperflex 4% topical film 1 patch, Topically, Daily, for 30 days, # 30 patch, 11 Refills, Acute 03/12/23 14:41:00 EDT, 03/17/22 14:41:00 EDT, [facility] [id number], Partial fill upon patient request if the prescription is for a schedule II opioid drug.... Start Date: 03/17/22 Stop Date: 03/12/23 Status: Ordered aspirin 81 mg oral tablet, chewable 81 mg, 1, tablet, By Mouth, Daily, # 30 tablet, Refills 11, Tot. Refills 11, Maintenance, 07/20/22 8:43:00 EST, Route to Pharmacy Electronically, [facility] [id number], Partial fill upon patient request if the prescription is... Start Date: 07/20/22 Stop Date: 11/12/23 Status: Ordered atorvastatin 80 mg oral tablet 1 tablet = 80 mg, By Mouth, Daily, # 30 tablet, 11 Refills, Maintenance, 07/20/22 8:43:00 EST, Tablet, [place], [place] - [id number], Partial fill upon patient request if the prescription is for a schedule II opioid drug., 173, cm, 09... Start Date: 07/20/22 Status: Ordered Biktarvy oral tablet 1 tablet, By Mouth, Daily, # 30 tablet, 5 Refills, Maintenance, 07/20/22 8:36:00 EST, [facility], [place] - [id number], 30, 1 tablet By Mouth Daily, 173, [...] 1 Refills, Soft Stop, 03/05/22 10:37:00 EDT, [facility] [id number], Partial fill upon patient request if the [...] Gm, 11 Refills, Maintenance, 03/07/21 6:50:00 EDT, [place], [place] - [id number], use sparingly on face, use on all other affected areas, 174, cm, 01/13/21... Start Date: 03/07/21 Status: Ordered Incruse Ellipta 62.5 mcg/inh inhalation powder See Instructions, INHALE 1 PUFF BY MOUTH INTO THE lungs EVERY 24 HOURS. doses should be taken AT least 24 HOURS APART, # 30 Unknown, 5 Refills, Maintenance, 09/02/22 20:23:00 EST, [facility], 173, cm, 08/12/22 0:40:00 EST, Height, 93.18, kg, 12/0... Start Date: 09/02/22 Status: Ordered ketoconazole 2% topical cream 1 application, Topically, Daily, # 30 Gm, 11 Refills, Maintenance, 04/20/22 9:23:00 EDT, [facility], [facility] [id number], 1 application Topically Daily, 173, cm, 12/05/21 17:38:00 EDT,Height, 127, kg, 12/05/21 17:38:00 EDT, Dry Weight Start Date: 04/20/22 Status: Ordered Lidoderm 5% film 1 patch, Topically, Daily, # 30 patch, 11 Refills, Maintenance, 03/19/22 21:12:00 EDT, [facility], [facility] [id number], Partial fill upon patient request if the [...] 11 Refills, Maintenance, 07/20/22 8:43:00 EST, Tablet, [place], [place] - [id number], 1 tablet By Mouth Daily, 173, cm, 05/10/22 20:46:00 EDT,Height, 95.5, kg, 05/10/22 20:46:00 EDT, Dry Weight Start Date: 07/20/22 Status: Ordered Narcan 4 mg/0.1 mL nasal spray See Instructions, 4 mg Once may repeat every 2 to 3 minutes until patient responds, # 2 each, 3 Refills, Soft Stop, 03/05/22 10:07:00 EDT, [facility], [facility] [id number], 173, cm, 12/05/21 17:38:00 EDT, Height, 127, kg, 12/05/21 17:38... Start Date: 03/05/22 Status: Ordered ondansetron 4 mg oral tablet, disintegrating 1 tablet = 4 mg, By Mouth, Every 8 hours, PRN as needed for nausea/vomiting, # 12 tablet, 11 Refills, Maintenance, 08/21/21 13:33:00 EST, DIS Tablet, [facility] [id number], Partial fill upon patient request if the [...] Refills, Soft Stop, 10/27/22 12:34:00 EST, Lotion, [facility] [id number], Partial fill upon patient request if the prescription... Start Date: 10/27/22 Status: Ordered polyethylene glycol 3350 oral powder for reconstitution = 17 Gm, By Mouth, 2 times a day, PRN Constipation, dissolve in water before taking, # 527 Gm, 3 Refills, Maintenance, 12/02/21 16:55:00 EDT, REC Powder, [facility] [id number], 17 Gm By Mouth 2 times a day,x30 days,PRN:Constip... Start Date: 12/02/21 Stop Date: 04/01/22 Status: Ordered rOPINIRole 0.5 mg oral tablet 1 tablet = 0.5 mg, By Mouth, Daily at bedtime, 1 to 3 hours before bedtime, # 30 tablet, 11 Refills, Maintenance, 07/20/22 8:43:00 EST, Tablet, [facility] [id number], Partialfill upon patient request if the prescription is fo... Start Date: 07/20/22 Status: Ordered sildenafil 100 mg oral tablet 1 tablet = 100 mg, By Mouth, Daily, 1 hour before sexual activity, # 20 tablet, 11 Refills, Maintenance, 04/20/22 9:24:00 EDT, Tablet, [facility], [place] - [id number], disreguard last script for 0.5 tab, 173, cm, 12/05/21 17:38:00 EDT,... Start Date: 04/20/22 Status: Ordered varenicline 1mg tablet 1 tablet = 1 mg, By Mouth, Daily, 0.5 tab daily x 3 days then 0.5 tab BID x 3 days then 1 tab BID, # 30 tablet, 4 Refills, Maintenance, 09/04/22 15:20:00 EST, Tablet, [facility], [place] - [id number], Partial fill upon patient request if... Start Date: 09/04/22 Status: Ordered Ventolin HFA 108 mcg/inh inhalation aerosol with adapter 2 puffs, Inhalation, 4 times a day, PRN for wheezing, # 1 each, 11 Refills, Maintenance, 11/18/22 15:37:00 EDT, Aerosol, [facility], [facility] [id number], Partial fill upon patient request if the prescription is for a schedule II opioid... Start Date: 11/18/22 Status: Ordered Vitamin D2 50,000 intl units [...] Refills, Maintenance, 06/04/22 17:32:00 EDT, Capsule, [facility], [place] - [id number], D/c vitamin high dosed, 173, cm, 05/10/22 [...] - 01/2019 Confirmed Active Depression - [facility] Confirmed Active Diastolic dysfunction 1 Confirmed [...] Team Personnel Name: Jadiel Watson RN Position: [facility] ED RN W/OE and Tasks Member Role: Primary Care Nurse Name: Dede Mccloud RN Position: [facility] RN Member Role: Primary Care Nurse Name: Judy Gonzales RN Position: [facility] RN Member Role: Primary Care Nurse Name: Enma Manriquez RN Position: [facility] RN Member Role: Primary Care Nurse Name: Zuhair Lopez RN Position: [facility] RN Member Role: Primary Care Nurse Name: Cathryn Allen RN Position: [facility] RN Member Role: Primary Care Nurse Name: Edie Bob RN Position: [facility] RN Member Role: Primary Care Nurse Name: Lisbet Gardiner RN Position: [facility] RN Member Role: Primary Care Nurse Name: Namrata Prieto MD Position: [facility] Primary Care Physician Member Role: PCP Address: Address: [address] [place] [address], -[facility] [place] [address]- Name: Carolina Valero RN Position: [facility] RN Member Role: Primary Care Nurse Name: Nishi San RN Position: [facility] RN Member Role: Primary Care Nurse Name: Micky Boyd RN Position: [facility] RN Member Role: Primary Care Nurse Name: Lauri Combs NP Position: Reference Physician Member Role: Primary Care Nurse Address: Address: [address] [place] [address] [address] Clinical & [place] [address]- [place] Care Team Related Persons Name: LUIS SAN Address: [place] [address] Name: BROOKE OWEN Address: home [address] [facility] [place] [address] Name: KARYN OWEN Address: home [address] [place] [address] Name: DOMINGO LEONE Address: home [address] [place] [address]
--- OUTSIDE RECORDS SUMMARY | 2023-07-12 20:14 | XMS_ITS | Continuity of Care Document ---
Author Name Unknown Organization [facility] Address [address] [place] [address]- Care Team Providers Care Construction Field Engineer Name Role Phone Namrata Prieto MD Primary Care Physician [place] [facility] [place]24[place] - 01/03/[address] [address]- Attending Physician: Kurt Barrientos MD Admitting Physician: Kurt Barrientos MD Referring Physician: Namrata Prieto MD Allergies, [...] 8:46:00 EST, Powder, Route to Pharmacy Electronically, [id number], [facility] - Spr... Start Date: 07/20/22 Stop Date: 07/15/23 Status: Ordered amLODIPine 10 mg oral tablet 10 mg, 1, tablet, By Mouth, Daily, # 30 tablet, Refills 11, Tot. Refills 11, Maintenance, 07/20/22 8:43:00 EST, Route to Pharmacy Electronically, [facility] [id number], 173, cm, 05/10/22 20:46:00 EDT, Height, 95.5, kg, 2... Start Date: 07/20/22 Status: Ordered aspirin 81 mg oral tablet, chewable 81 mg, 1, tablet, By Mouth, Daily, # 30 tablet, Refills 11, Tot. Refills 11, Maintenance, 07/20/22 8:43:00 EST, Route to Pharmacy Electronically, [facility] [id number], Partial fill upon patient request if the prescription is... Start Date: 07/20/22 Stop Date: 11/12/23 Status: Ordered atorvastatin 80 mg oral tablet 1 tablet = 80 mg, By Mouth, Daily, # 30 tablet, 11 Refills, Maintenance, 07/20/22 8:43:00 EST, Tablet, [facility] [id number], Partial fill upon patient request if the prescription is for a schedule II opioid drug., 173, cm, 09... Start Date: 07/20/22 Status: Ordered Biktarvy oral tablet 1 tablet, By Mouth, Daily, must get appt and labs for refills, # 30 tablet, 0 Refills, Maintenance,12/16/22 19:18:00 EDT, [facility] [id number], 30, 1 tablet By Mouth Daily,Instr:must get [...] 12/24/22 19:14:00 EDT, Route to Pharmacy Electronically, [facility]... Start Date: 12/24/22 Status: Ordered Crutches [...] 1 Refills, Soft Stop, 03/05/22 10:37:00 EDT, [facility] [place], [place] - [id number], Partial fill upon patient request if the prescriptio... Start Date: 03/05/22 Status: Ordered fluticasone-salmeterol 250 mcg-50 mcg inhalation powder 1, puffs, Inhalation, 2 times a day, patient needs labs and appt before more refills, # 60 each, Refills 0, Tot. Refills 0, Maintenance, 12/16/22 19:27:00 EDT, Powder, Route to Pharmacy Electronically, [id number], [facility]... Start Date: 12/16/22 Status: Ordered [...] Gm, 11 Refills, Maintenance, 04/20/22 9:23:00 EDT, [facility], [facility] [id number], 1 application Topically Daily, 173, cm, 12/05/21 17:38:00 EDT,Height, 127, kg, 12/05/21 17:38:00 EDT, Dry Weight Start Date: 04/20/22 Status: Ordered Lidoderm 5% film 1 patch, Topically, Daily, # 30 patch, 11 Refills, Maintenance, 03/19/22 21:12:00 EDT, [facility] [id number], Partial fill upon patient request if the [...] 11 Refills, Maintenance, 07/20/22 8:43:00 EST, Tablet, [facility], [facility] [id number], 1 tablet By Mouth Daily, 173, cm, 05/10/22 20:46:00 EDT,Height, 95.5, kg, 05/10/22 20:46:00 EDT, Dry Weight Start Date: 07/20/22 Status: Ordered Narcan 4 mg/0.1 mL nasal spray See Instructions, 4 mg Once may repeat every 2 to 3 minutes until patient responds, # 2 each, 3 Refills, Soft Stop, 03/05/22 10:07:00 EDT, [facility], [facility] [id number], 173, cm, 12/05/21 17:38:00 EDT, Height, 127, [...] Refills, Soft Stop, 12/24/22 11:37:00 EDT, Lotion, [facility] [id number], Partial fill upon pa... Start Date: 12/24/22 Status: Ordered polyethylene glycol 3350 oral powder for reconstitution = 17 Gm, By Mouth, 2 times a day, PRN Constipation, dissolve in water before taking, # 527 Gm, 3 Refills, Maintenance, 12/02/21 16:55:00 EDT, REC Powder, [facility] [id number], 17 Gm By Mouth 2 times a day,x30 days,PRN:Constip... Start Date: 12/02/21 Stop Date: 04/01/22 Status: Ordered rOPINIRole 0.5 mg oral tablet 1 tablet = 0.5 mg, By Mouth, Daily at bedtime, 1 to 3 hours before bedtime, # 30 tablet, 11 Refills, Maintenance, 07/20/22 8:43:00 EST, Tablet, [facility] [id number], Partialfill upon patient request if the prescription is fo... Start Date: 07/20/22 Status: Ordered Senna 8.6 mg oral tablet 1 or 2 tablets, By Mouth, Daily at bedtime, PRN, Must make appt and get labs for refills, # 180 tablet, Refills 0, Tot. Refills 0, Maintenance, Constipation, 12/16/22 19:14:00 EDT, Route to Pharmacy Electronically, [place], [place] -... Start Date: 12/16/22 Status: Ordered sildenafil 100 mg oral tablet 1 tablet = 100 mg, By Mouth, Daily, 1 hour before sexual activity, # 20 tablet, 11 Refills, Maintenance, 04/20/22 9:24:00 EDT, Tablet, [facility] [id number], disreguard last script for 0.5 tab, 173, cm, 12/05/21 17:38:00 EDT,... Start Date: 04/20/22 Status: Ordered varenicline 1mg tablet 1 tablet = 1 mg, By Mouth, Daily, 0.5 tab daily x 3 days then 0.5 tab BID x 3 days then 1 tab BID, # 30 tablet, 4 Refills, Maintenance, 09/04/22 15:20:00 EST, Tablet, [facility] [id number], Partial fill upon patient request if... Start Date: 09/04/22 Status: Ordered Ventolin HFA 108 mcg/inh inhalation aerosol with adapter 2 puffs, Inhalation, 4 times a day, PRN for wheezing, must get appt and labs for refills, # 3 each,0 Refills, Maintenance, 12/16/22 19:15:00 EDT, Aerosol, [facility] [id number], Partial fill upon patient request if the prescr... Start Date: 12/16/22 Status: Ordered Vitamin D3 1000 intl units oral capsule 1 capsule = 25 mcg, By Mouth, Daily, # 30 capsule, 11 Refills, Maintenance, 06/04/22 17:32:00 EDT, Capsule, [facility] [id number], D/c vitamin high dosed, 173, cm, 05/10/22 [...] - 01/2019 Confirmed Active Depression - [facility], [facility] Confirmed Active Diastolic dysfunction 1 Confirmed [...] Team Personnel Name: Jadiel Watson RN Position: [facility] ED RN W/OE and Tasks Member Role: Primary Care Nurse Name: Dede Mccloud RN Position: [facility] RN Member Role: Primary Care Nurse Name: Judy Gonzales RN Position: [facility] RN Member Role: Primary Care Nurse Name: Enma Manriquez RN Position: [facility] RN Member Role: Primary Care Nurse Name: Zuhair Lopez RN Position: [facility] RN Member Role: Primary Care Nurse Name: Cathryn Allen RN Position: [facility] RN Member Role: Primary Care Nurse Name: Edie Bob RN Position: [facility] RN Member Role: Primary Care Nurse Name: Lisbet Gardiner RN Position: [facility] RN Member Role: Primary Care Nurse Name: Namrata Prieto MD Position: [facility] Primary Care Physician Member Role: PCP Address: Address: [address] [place] [address], -[facility] [place] [address]- Name: Carolina Valero RN Position: [facility] RN Member Role: Primary Care Nurse Name: Nishi San RN Position: [facility] RN Member Role: Primary Care Nurse Name: Micky Boyd RN Position: [facility] RN Member Role: Primary Care Nurse Name: Lauryn WELLS, Lauri Choi Position: Reference Physician Member Role: Primary Care Nurse Address: Address: [address] [place] [address] [address] Clinical & [place] [address]- [place] Care Team Related Persons Name: LUIS SAN Address: [place] [address] Name: BROOKE OWEN Address: home [address] [address] Name: KARYN OWEN Address: home [address] [place] [address] Name: DOMINGO LEONE Address: home [address] [place] [address]
--- OUTSIDE RECORDS SUMMARY | 2023-07-12 20:14 | XMS_ITS | Continuity of Care Document ---
Author Name Unknown Organization [facility] Address [address] [place] [address]- Care Team Providers Care Rental Sales Associate Name Role Phone Conner QUEEN, Namrata Agarwal Primary Care Physician [facility]counter [facility] Date(s): 08/19/21 - 09/18/21 [facility] [address] [place] [address]- Allergies, Adverse Reactions, Alerts Substance Reaction Severity [...] 13:14:00 EST, Powder, Route to Pharmacy Electronically, [id number], [facility] - [facility]... Start Date: 08/21/21 Stop Date: 01/18/22 Status: Ordered Albuterol (Eqv-ProAir HFA) 90 mcg/inh inhalation aerosol 2 puffs, Inhalation, Every 6 hours, # 8.5 Gm, 11 Refills, 08/25/21 12:34:00 EST, [facility] - [place], [place] - [id number], 25, 2 puffs Inhalation Every 6 hours, 173, cm, 08/25/21 12:31:00 EST, Height, 84, kg, 04/19/21 2:36:00 EDT, Dry Weight Start Date: 08/25/21 Status: Ordered amLODIPine 10 mg oral tablet 10 mg, 1, tablet, By Mouth, Daily, # 30 tablet, Refills 11, Tot. Refills 11, Maintenance, 08/27/21 16:46:00 EST, Route to Pharmacy Electronically, [place], [place] - [id number], 173,cm, 08/25/21 12:31:00 EST, Height, 84, kg, 04/19/21... Start Date: 08/27/21 Status: Ordered atovaquone 750 mg/5 mL oral suspension 10 mL = 1,500 mg, By Mouth, Daily, for 60 days, # 600 mL, 11 Refills, Acute 02/25/23 6:50:00 EDT, 03/07/21 6:50:00 EDT, Suspension, [place], [place] - [id number], Pls cancel bactrim prescription. Atovaquone to replace bactrim, 174, cm... Start Date: 03/07/21 Stop Date: 02/25/23 Status: Ordered Biktarvy oral tablet 1 tablet, By Mouth, Daily, # 30 tablet, 11 Refills, [facility], 30, TAKE ONE TABLET BY [...] FOR CONSTIPATION, # 60 each, 5 Refills, [facility], 173, cm, 04/21/21 8:17:00 EDT, Height, 84, kg, 04/19/21 2:36:00 EDT, Dry Weight Start Date: 06/02/21 Status: Ordered hydrocortisone 0.5% topical cream See Instructions, use sparingly on face, use on all other affected areas, # 28 Gm, 11 Refills, Maintenance, 03/07/21 6:50:00 EDT, [place], [place] - [id number], use sparingly on face, use on all other affected areas, 174, cm, 01/13/21... Start Date: 03/07/21 Status: Ordered Incruse Ellipta 62.5 mcg/inh inhalation powder 1 puffs, Inhalation, Every 24 hours, doses should be taken AT least 24 HOURS APART, # 30 Unknown, 11 Refills, 08/25/21 12:34:00 EST, [place], [place] - [id number], 173, cm, 08/25/21 12:31:00 EST, Height, 84, kg, 04/19/21 2:36:00 EDT,... Start Date: 08/25/21 Status: Ordered ketoconazole 2% topical cream See Instructions, APPLY TO THE AFFECTED AREA TOPICALLY 2 (two) times a day. USE ON THE FACE, # 60 Gm, 11 Refills, [facility], 30, APPLY TO THE AFFECTED [...] 11 Refills, Maintenance, 03/07/21 6:51:00 EDT, Tablet, [place], [place] - [id number], 1 tablet By Mouth Daily, 174, cm, 01/13/21 8:20:00 EDT, Height, 93, kg, 01/08/21 18:17:00 EDT, Dry Weight Start Date: 03/07/21 Status: Ordered Narcan 4 mg/0.1 mL nasal spray See Instructions, 4 mg Once may repeat every 2 to 3 minutes until patient responds, # 2 each, 1 Refills, Soft Stop, 08/24/19 9:41:00 EST, [facility], MAMADOU García to pickling grader for Pt., 170, cm, 08/24/19 9:21:00 EST, Height, 66.36,... Start Date: 08/24/19 Status: Ordered ondansetron 4 mg oral tablet, disintegrating 1 tablet = 4 mg, By Mouth, Every 8 hours, PRN as needed for nausea/vomiting, # 12 tablet, 11 Refills, Maintenance, 08/21/21 13:33:00 EST, DIS Tablet, [facility] [id number], Partial fill upon patient request if the [...] Refills, Maintenance, 11/28/19 9:42:00 EDT, REC Powder, [facility], 17 Gm By Mouth 2 times a day,x30 days,PRN:Constipation,Instr:... Start Date: 11/28/19 Stop Date: 03/27/20 Status: Ordered polyethylene glycol 3350 oral powder for reconstitution See Instructions, DISSOLVE 17grams powder IN WATER BEFORE drinking 2 (two) times a day NEEDED FOR CONSTIPATION, # 510 Gm, 11 Refills, [facility], 30, DISSOLVE 17grams powder IN WATER BEFORE drinking 2 (two) times a day NEEDED FOR CONSTIPATI... Start Date: 09/03/21 Status: Ordered rOPINIRole 0.5 mg oral tablet 1 tablet = 0.5 mg, By Mouth, Daily at bedtime, 1 to 3 hours before bedtime, # 30 tablet, 11 Refills, Maintenance, 08/21/21 13:32:00 EST, Tablet, [facility] [id number], Partial fill upon patient request if the prescription is f... Start Date: 08/21/21 Status: Ordered sildenafil 100 mg oral tablet 1 tablet = 100 mg, By Mouth, Daily, 1 hour before sexual activity, # 20 tablet, 11 Refills, Maintenance, 03/07/21 6:49:00 EDT, Tablet, [place], [place] - [id number], Partial fill upon patient request if the prescription is for a sched... 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
--- OUTSIDE RECORDS SUMMARY | 2023-07-12 20:14 | XMS_ITS | Continuity of Care Document ---
Author Name Unknown Organization [facility] Address [address] [place] [address]- Care Team Providers Care Shellfish Bed Worker Name Role Phone Namrata Prieto MD Primary Care Physician [facility]counter [facility] Date(s): 06/[facility]/22 - 07/22/22 [facility] [address] [place] [id number] Attending Physician: Namrata Prieto MD Admitting Physician: Namrata Prieto MD Allergies, Adverse Reactions, Alerts Substance Reaction Severity Status shellfish Active Latex rash Active Suboxone migraine (PO), fevers (IM) A ctive Bee Stings Active Immunizations Given and Recorded Vaccine Date [...] 8:46:00 EST, Powder, Route to Pharmacy Electronically, [id number], [facility] - Spr... Start Date: 07/20/22 Stop Date: 07/15/23 Status: Ordered Albuterol (Eqv-ProAir HFA) 90 mcg/inh inhalation aerosol 2 puffs, Inhalation, Every 6 hours, # 8.5 Gm, 11 Refills, 08/25/21 12:34:00 EST, [facility] [id number], 25, 2 puffs Inhalation Every 6 hours, 173, cm, 08/25/21 12:31:00 EST, Height, 84, kg, 04/19/21 2:36:00 EDT, Dry Weight Start Date: 08/25/21 Status: Ordered amLODIPine 10 mg oral tablet 10 mg, 1, tablet, By Mouth, Daily, # 30 tablet, Refills 11, Tot. Refills 11, Maintenance, 07/20/22 8:43:00 EST, Route to Pharmacy Electronically, [facility] [id number], 173, cm, 05/10/22 20:46:00 EDT, Height, 95.5, kg, ... Start Date: 07/20/22 Status: Ordered Asperflex 4% topical film 1 patch, Topically, Daily, for 30 days, # 30 patch, 11 Refills, Acute 03/12/23 14:41:00 EDT, 03/17/22 14:41:00 EDT, [facility] [id number], Partial fill upon patient request if the prescription is for a schedule II opioid drug.... Start Date: 03/17/22 Stop Date: 03/12/23 Status: Ordered aspirin 81 mg oral tablet, chewable 81 mg, 1, tablet, By Mouth, Daily, # 30 tablet, Refills 11, Tot. Refills 11, Maintenance, 07/20/22 8:43:00 EST, Route to Pharmacy Electronically, [facility] [id number], Partial fill upon patient request if the prescription is... Start Date: 07/20/22 Stop Date: 11/12/23 Status: Ordered atorvastatin 80 mg oral tablet 1 tablet = 80 mg, By Mouth, Daily, # 30 tablet, 11 Refills, Maintenance, 07/20/22 8:43:00 EST, Tablet, [place], [place] - [id number], Partial fill upon patient request if the prescription is for a schedule II opioid drug., 173, cm, 09... Start Date: 07/20/22 Status: Ordered Biktarvy oral tablet 1 tablet, By Mouth, Daily, # 30 tablet, 5 Refills, Maintenance, 07/20/22 8:36:00 EST, [facility] [id number], 30, 1 tablet By Mouth Daily, 173, [...] 1 Refills, Soft Stop, 03/05/22 10:37:00 EDT, [facility] [id number], Partial fill upon patient request if the prescriptio... Start Date: 03/05/22 Status: Ordered hydrocortisone 0.5% topical cream See Instructions, use sparingly on face, use on all other affected areas, # 28 Gm, 11 Refills, Maintenance, 03/07/21 6:50:00 EDT, [facility] [id number], use sparingly on face, use on all other affected areas, 174, cm, 01/13/21... Start Date: 03/07/21 Status: Ordered Incruse Ellipta 62.5 mcg/inh inhalation powder 1 puffs, Inhalation, Every 24 hours, doses should be taken AT least 24 HOURS APART, # 30 Unknown, 11 Refills, 08/25/21 12:34:00 EST, [facility] [id number], 173, cm, 08/25/21 12:31:00 EST, Height, 84, kg, 04/19/21 2:36:00 EDT,... Start Date: 08/25/21 Status: Ordered ketoconazole 2% topical cream 1 application, Topically, Daily, # 30 Gm, 11 Refills, Maintenance, 04/20/22 9:23:00 EDT, [facility] [place] [id number], 1 application Topically Daily, 173, cm, 12/05/21 17:38:00 EDT,Height, 127, kg, 12/05/21 17:38:00 EDT, Dry Weight Start Date: 04/20/22 Status: Ordered Lidoderm 5% film 1 patch, Topically, Daily, # 30 patch, 11 Refills, Maintenance, 03/19/22 21:12:00 EDT, [facility] [place] [id number], Partial fill upon patient request if the [...] 11 Refills, Maintenance, 07/20/22 8:43:00 EST, Tablet, [facility] [place] - [id number], 1 tablet By Mouth Daily, 173, cm, 05/10/22 20:46:00 EDT,Height, 95.5, kg, 05/10/22 20:46:00 EDT, Dry Weight Start Date: 07/20/22 Status: Ordered Narcan 4 mg/0.1 mL nasal spray See Instructions, 4 mg Once may repeat every 2 to 3 minutes until patient responds, # 2 each, 3 Refills, Soft Stop, 03/05/22 10:07:00 EDT, [facility] [place] [id number], 173, cm, 12/05/21 17:38:00 EDT, Height, 127, kg, 12/05/21 17:38... Start Date: 03/05/22 Status: Ordered Nicotine 2 mg gum 1 each = 2 mg, Chew, Every 2 hours, PRN as needed for smoking cessation, for 4 week(s), # 160 each,11 Refills, Acute 09/11/22 12:53:00 EST, 10/10/21 12:53:00 EST, Gum, [facility] [id number], Partial fill upon patient request... Start Date: 10/10/21 Stop Date: 09/11/22 Status: Ordered ondansetron 4 mg oral tablet, disintegrating 1 tablet = 4 mg, By Mouth, Every 8 hours, PRN as needed for nausea/vomiting, # 12 tablet, 11 Refills, Maintenance, 08/21/21 13:33:00 EST, DIS Tablet, [facility] [id number], Partial fill upon patient request if the [...] Refills, Maintenance, 12/02/21 16:55:00 EDT, REC Powder, [facility] [id number], 17 Gm By Mouth 2 times a day,x30 days,PRN:Constip... Start Date: 12/02/21 Stop Date: 04/01/22 Status: Ordered rOPINIRole 0.5 mg oral tablet 1 tablet = 0.5 mg, By Mouth, Daily at bedtime, 1 to 3 hours before bedtime, # 30 tablet, 11 Refills, Maintenance, 07/20/22 8:43:00 EST, Tablet, [facility] [id number], Partialfill upon patient request if the prescription is fo... Start Date: 07/20/22 Status: Ordered sildenafil 100 mg oral tablet 1 tablet = 100 mg, By Mouth, Daily, 1 hour before sexual activity, # 20 tablet, 11 Refills, Maintenance, 04/20/22 9:24:00 EDT, Tablet, [facility] [id number], disreguard last script for 0.5 tab, 173, cm, 12/05/21 17:38:00 EDT,... Start Date: 04/20/22 Status: Ordered varenicline 1mg tablet 1 tablet = 1 mg, By Mouth, Daily, 0.5 tab daily x 3 days then 0.5 tab BID x 3 days then 1 tab BID, # 30 tablet, 4 Refills, Maintenance, 04/01/22 16:45:00 EDT, Tablet, [facility] [id number], Partial fill upon patient request if... Start Date: 04/01/22 Status: Ordered Ventolin HFA 108 mcg/inh inhalation aerosol with adapter 2 puffs, Inhalation, 4 times a day, PRN for wheezing, # 1 each, 11 Refills, Maintenance, 07/20/22 8:44:00 EST, Aerosol, [facility] [id number], Partial fill upon patient request if the [...] 11 Refills, Maintenance, 06/04/22 17:32:00 EDT, Capsule, [facility] [id number], D/c vitamin high dosed, 173, cm, 05/10/22 [...] - 01/2019 Confirmed Active Depression - [facility] Confirmed Active Diastolic dysfunction 1 Confirmed 09/27/21 [...] Care Physician Member Role: PCP Address: Address: [address] [place] [address], -Level [facility] [place] [address]- Name: Carolina Valero RN Position: [facility] RN Member Role: Primary Care Nurse Name: Nishi San RN Position: S RN Member Role: Primary Care Nurse Name: Micky Boyd RN Position: S RN Member Role: Primary Care Nurse Name: Lauri Combs NP Position: Reference Physician Member Role: Primary Care Nurse Address: Address: [address] [place] [address] [address] [facility] [place] [address]- [place] Care Team Related Persons Name: LUIS SAN Address: [place] [address] Name: BROOKE OWEN Address: home [address] [address] Name: KARYN OWEN Address: home [address] [place] [address] Name: DOMINGO LEONE Address: home [address] [place] [address]
--- OUTSIDE RECORDS SUMMARY | 2023-07-12 20:14 | XMS_ITS | Continuity of Care Document ---
Author Name Unknown Organization [facility] y Address [address] [place] [address]- Care Team Providers Care Relocation Services Specialist Name Role Phone Long DITCHER, Giovanna Bernard Primary Care Physician Encounter [facility] [place](s): 08/24/19 - 10/14/19 [facility] [address] [place] [address]- Attending Physician: Isidoro Neely MD Admitting Physician: [...] 09/26/19 12:05:00 EST, Route to Pharmacy Electronically, [place], [place] -, 172, cm, 09/26/19 8:57:00 EST, Height, 66.3, kg, 09/11/19 13:26:00 EST... Start Date: 09/26/19 Status: Ordered atovaquone 750 mg/5 mL oral suspension 10 mL = 1,500 mg, By Mouth, Daily, for 60 days, # 600 mL, 5 Refills, Acute 08/18/20 9:40:00 EST, 08/24/19 9:40:00 EST, Suspension, [place], [place] -, Pls cancel bactrim prescription. Atovaquone to replace bactrim, 170, cm, 08/24/19 9... Start Date: 08/24/19 Stop Date: 08/18/20 Status: Ordered Biktarvy oral tablet 1 tablet, By Mouth, Daily, # 30 tablet, 5 Refills, Maintenance, 08/24/19 9:40:00 EST, Tablet, [place], [place] -, 1 tablet By Mouth Daily,x30 [...] 09/26/19 12:05:00 EST, Route to Pharmacy Electronically, [place], [place] -, 172, cm, 09/26/19 8:57:00 EST, [facility]... Start Date: 09/26/19 Status: Ordered fluconazole 200 mg oral tablet 1 tablet = 200 mg, By Mouth, Daily, for 28 days, # 28 tablet, 5 Refills, Acute 02/08/20 9:42:00 EDT, 08/24/19 9:42:00 EST, Tablet, [facility] [place], [place] -, Decrease in dose., 170, cm, 08/24/19 9:21:00 EST, Height, 66.36, kg, 03/10/19 16:51... Start Date: 08/24/19 Stop Date: 02/08/20 Status: Ordered gabapentin 100 mg oral capsule 200 mg, 2, capsule, By Mouth, 3 times a day, # 180 capsule, Refills 0, Tot. Refills 0, Maintenance,09/26/19 12:07:00 EST, Route to Pharmacy Electronically, [place], [place] -, 172, cm, 09/26/19 8:57:00 EST, Height, 66.3, kg, 09/11/19... Start Date: 09/26/19 Status: Ordered lithium 300 mg oral capsule 2 capsule = 600 mg, By Mouth, Daily at bedtime, # 60 capsule, 0 Refills, Maintenance, 09/26/19 12:09:00 EST, [place], [place] -, 172, cm, 09/26/19 8:57:00 EST, Height, 66.3, kg, 09/11/19 13:26:00 EST, Dry Weight Start Date: 09/26/19 Status: Ordered lithium 300 mg oral tablet 1 tablet = 300 mg, By Mouth, Daily, # 30 tablet, 0 Refills, Maintenance, 09/26/19 12:08:00 EST, Tablet, [place], [place] -, 172, cm, 09/26/19 8:57:00 EST, [...] 0 Refills, Maintenance, 09/26/19 12:07:00 EST, Tablet, [place], [place] -, 172, cm, 09/26/19 8:57:00 EST, Height, 66.3, kg,09/11/19 13:26:00 EST, Dry Weight Start Date: 09/26/19 Status: Ordered multivitamin with minerals Calcium and Magnesium oral tablet 1 tablet, By Mouth, Daily, # 30 tablet, 5 Refills, Maintenance, 09/26/19 12:05:00 EST, Tablet, [place], [place] -, 1 tablet By Mouth Daily,x30 days, 172, cm, 09/26/19 8:57:00 EST, Height, 66.3, kg, 09/11/19 13:26:00 EST, Dry Weight Start Date: 09/26/19 Stop Date: 03/24/20 Status: Ordered Narcan 4 mg/0.1 mL nasal spray See Instructions, 4 mg Once may repeat every 2 to 3 minutes until patient responds, # 2 each, 1 Refills, Soft Stop, 08/24/19 9:41:00 EST, [facility] - [place] -, MAMADOU García to chicken picker for [...]
--- OUTSIDE RECORDS SUMMARY | 2023-07-12 20:14 | XMS_ITS | Continuity of Care Document ---
Author Name Unknown Organization [facility] Address [address] [place] [address]- Care Team Providers Care Media Sales Representative Name Role Phone Namrata Prieto MD Primary Care Physician [facility]counter [facility] Date(s): 03/05/22 - 04/23/22 [facility] [address] [place] [id number] Attending Physician: Namrata Prieto MD Admitting [...] 8:29:00 EDT, Powder, Route to Pharmacy Electronically, [id number], [facility] - [place]... Start Date: 01/07/22 Stop Date: 01/02/23 Status: Ordered Albuterol (Eqv-ProAir HFA) 90 mcg/inh inhalation aerosol 2 puffs, Inhalation, Every 6 hours, # 8.5 Gm, 11 Refills, 08/25/21 12:34:00 EST, [facility] [id number], 25, 2 puffs Inhalation Every 6 hours, 173, cm, 08/25/21 12:31:00 EST, Height, 84, kg, 04/19/21 2:36:00 EDT, Dry Weight Start Date: 08/25/21 Status: Ordered amLODIPine 10 mg oral tablet 10 mg, 1, tablet, By Mouth, Daily, # 30 tablet, Refills 11, Tot. Refills 11, Maintenance, 08/27/21 16:46:00 EST, Route to Pharmacy Electronically, [facility] [id number], 173,cm, 08/25/21 12:31:00 EST, Height, 84, kg, 04/19/21... Start Date: 08/27/21 Status: Ordered Asperflex 4% topical film 1 patch, Topically, Daily, for 30 days, # 30 patch, 11 Refills, Acute 03/12/23 14:41:00 EDT, 03/17/22 14:41:00 EDT, [facility] [id number], Partial fill upon patient request if the prescription is for a schedule II opioid drug.... Start Date: 03/17/22 Stop Date: 03/12/23 Status: Ordered aspirin 81 mg oral tablet, chewable 81 mg, 1, tablet, By Mouth, Daily, # 120 tablet, Refills 3, Tot. Refills 3, Maintenance, 10/02/21 11:47:00 EST, Route to Pharmacy Electronically, [facility] [id number], Partial fill upon patient request if the prescription is... Start Date: 10/02/21 Stop Date: 01/25/23 Status: Ordered atorvastatin 80 mg oral tablet 1 tablet = 80 mg, By Mouth, Daily, # 30 tablet, 11 Refills, Maintenance, 11/07/21 14:34:00 EST, Tablet, [facility] [id number], Partial fill upon patient request if the prescription is for a schedule II opioid drug., 170, cm, 0... Start Date: 11/07/21 Status: Ordered atovaquone 750 mg/5 mL oral suspension 10 mL = 1,500 mg, By Mouth, Daily, for 60 days, # 600 mL, 11 Refills, Acute 10/28/23 14:35:00 EST, 11/07/21 14:35:00 EST, Suspension, [facility], [place] - [id number], Pls cancel bactrim prescription. Atovaquone to replace bactrim, 170,... Start Date: 11/07/21 Stop Date: 10/28/23 Status: Ordered Biktarvy oral tablet 1 tablet, By Mouth, Daily, # 30 tablet, 11 Refills, [facility], 30, TAKE ONE TABLET BY MOUTH DAILY, 173, cm, 04/21/21 8:17:00 EDT, Height, 84, kg, 04/19/21 2:36:00 EDT, Dry Weight Start Date: 06/25/21 Status: Ordered Colace sodium 100 mg oral capsule 100 mg, 1, capsule, By Mouth, 2 times a day, PRN, # 60 capsule, Refills 11, Tot. Refills 11, Maintenance, for constipation, 12/02/21 16:54:00 EDT, Route to Pharmacy Electronically, [place], [place] - [id number], Partial fill upon pilar... Start Date: 12/02/21 [...] 1 Refills, Soft Stop, 03/05/22 10:37:00 EDT, [facility], [place] - [id number], Partial fill upon patient request if the prescriptio... Start Date: 03/05/22 Status: Ordered ergocalciferol 85383 iu oral capsule 50,000 International_[employer]its, 1, capsule, By Mouth, Every week, for 30 days, # 5 capsule, Refills 1, Tot. Refills 1, Acute 05/04/22 10:22:00 EDT, 03/05/22 10:22:00 EDT, Route to Pharmacy Electronically, [facility] [id number], 17... Start Date: 03/05/22 Stop Date: 05/04/22 Status: Ordered hydrocortisone 0.5% topical cream See Instructions, use sparingly on face, use on all other affected areas, # 28 Gm, 11 Refills, Maintenance, 03/07/21 6:50:00 EDT, [facility] [id number], use sparingly on face, use on all other affected areas, 174, cm, 01/13/21... Start Date: 03/07/21 Status: Ordered Incruse Ellipta 62.5 mcg/inh inhalation powder 1 puffs, Inhalation, Every 24 hours, doses should be taken AT least 24 HOURS APART, # 30 Unknown, 11 Refills, 08/25/21 12:34:00 EST, [facility] [id number], 173, cm, 08/25/21 12:31:00 EST, Height, 84, kg, 04/19/21 2:36:00 EDT,... Start Date: 08/25/21 Status: Ordered ketoconazole 2% topical cream 1 application, Topically, Daily, # 30 Gm, 11 Refills, Maintenance, 04/20/22 9:23:00 EDT, [facility] [id number], 1 application Topically Daily, 173, cm, 12/05/21 17:38:00 EDT,Height, 127, kg, 12/05/21 17:38:00 EDT, Dry Weight Start Date: 04/20/22 Status: Ordered Lidoderm 5% film 1 patch, Topically, Daily, # 30 patch, 11 Refills, Maintenance, 03/19/22 21:12:00 EDT, [facility] [id number], Partial fill upon patient request if the [...] 0 Refills, Maintenance, 11/11/21 17:22:00 EST, Tablet, [facility] [id number], 170, cm, 10/10/21 13:45... Start Date: 11/11/21 Stop Date: 12/11/21 Status: Ordered multivitamin with minerals Calcium and Magnesium oral tablet 1 tablet, By Mouth, Daily, # 30 tablet, 11 Refills, Maintenance, 12/15/21 6:32:00 EDT, Tablet, [facility] [id number], 1 tablet By Mouth Daily, 173, cm, 12/05/21 17:38:00 EDT,Height, 127, kg, 12/05/21 17:38:00 EDT, Dry Weight Start Date: 12/15/21 Status: Ordered Narcan 4 mg/0.1 mL nasal spray See Instructions, 4 mg Once may repeat every 2 to 3 minutes until patient responds, # 2 each, 3 Refills, Soft Stop, 03/05/22 10:07:00 EDT, [facility] [id number], 173, cm, 12/05/21 17:38:00 EDT, Height, 127, kg, 12/05/21 17:38... Start Date: 03/05/22 Status: Ordered Nicotine 2 mg gum 1 each = 2 mg, Chew, Every 2 hours, PRN as needed for smoking cessation, for 4 week(s), # 160 each,11 Refills, Acute 09/11/22 12:53:00 EST, 10/10/21 12:53:00 EST, Gum, [facility] [id number], Partial fill upon patient request... Start Date: 10/10/21 Stop Date: 09/11/22 Status: Ordered ondansetron 4 mg oral tablet, disintegrating 1 tablet = 4 mg, By Mouth, Every 8 hours, PRN as needed for nausea/vomiting, # 12 tablet, 11 Refills, Maintenance, 08/21/21 13:33:00 EST, DIS Tablet, [facility] [id number], Partial fill upon patient request if the [...] Refills, Maintenance, 12/02/21 16:55:00 EDT, REC Powder, [facility] [id number], 17 Gm By Mouth 2 times a day,x30 days,PRN:Constip... Start Date: 12/02/21 Stop Date: 04/01/22 Status: Ordered rOPINIRole 0.5 mg oral tablet 1 tablet = 0.5 mg, By Mouth, Daily at bedtime, 1 to 3 hours before bedtime, # 30 tablet, 11 Refills, Maintenance, 08/21/21 13:32:00 EST, Tablet, [facility] [id number], Partial fill upon patient request if the prescription is f... Start Date: 08/21/21 Status: Ordered Senna 8.6 mg oral tablet 1 or 2 tablets, By Mouth, Daily at bedtime, PRN, # 60 tablet, Refills 11, Tot. Refills 11, Maintenance, Constipation, 04/14/22 16:15:00 EDT, Route to Pharmacy Electronically, [facility] [id number] Tablet, Partial fill upon pat... Start Date: 04/14/22 Status: Ordered sildenafil 100 mg oral tablet 0.5 tablet = 50 mg, By Mouth, Daily, 1 hour before sexual activity, # 20 tablet, 11 Refills, Maintenance, 04/20/22 9:22:00 EDT, Tablet, [facility] [id number], Partial fill upon patient request if the prescription is for a sche... Start Date: 04/20/22 Status: Ordered sildenafil 100 mg oral tablet 1 tablet = 100 mg, By Mouth, Daily, 1 hour before sexual activity, # 20 tablet, 11 Refills, Maintenance, 04/20/22 9:24:00 EDT, Tablet, [facility] [id number], disreguard last script for 0.5 tab, 173, cm, 12/05/21 17:38:00 EDT,... Start Date: 04/20/22 Status: Ordered varenicline 1mg tablet 1 tablet = 1 mg, By Mouth, Daily, 0.5 tab daily x 3 days then 0.5 tab BID x 3 days then 1 tab BID, # 30 tablet, 4 Refills, Maintenance, 04/01/22 16:45:00 EDT, Tablet, [facility] [id number], Partial fill upon patient request if... 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
--- OUTSIDE RECORDS SUMMARY | 2023-07-12 20:14 | XMS_ITS | Continuity of Care Document ---
Author Name Unknown Organization [facility] Address [address] [place] [id number] Care Team Providers Care Distribution Accounting Clerk Name Role Phone Namrata Prieto MD Primary Care Physician Encounter [facility] Date(s): 12/29/21 - 02/18/22 [facility] [address] [place] [id number] Attending Physician: Namrata Prieto MD Admitting [...] 8:29:00 EDT, Powder, Route to Pharmacy Electronically, [id number], [facility]... Start Date: 01/07/22 Stop Date: 01/02/23 Status: Ordered Albuterol (Eqv-ProAir HFA) 90 mcg/inh inhalation aerosol 2 puffs, Inhalation, Every 6 hours, # 8.5 Gm, 11 Refills, 08/25/21 12:34:00 EST, [facility], [facility] [id number], 25, 2 puffs Inhalation Every 6 hours, 173, cm, 08/25/21 12:31:00 EST, Height, 84, kg, 04/19/21 2:36:00 EDT, Dry Weight Start Date: 08/25/21 Status: Ordered amLODIPine 10 mg oral tablet 10 mg, 1, tablet, By Mouth, Daily, # 30 tablet, Refills 11, Tot. Refills 11, Maintenance, 08/27/21 16:46:00 EST, Route to Pharmacy Electronically, [facility], [facility] [id number], 173,cm, 08/25/21 12:31:00 EST, Height, 84, kg, 04/19/21... Start Date: 08/27/21 Status: Ordered aspirin 81 mg oral tablet, chewable 81 mg, 1, tablet, By Mouth, Daily, # 120 tablet, Refills 3, Tot. Refills 3, Maintenance, 10/02/21 11:47:00 EST, Route to Pharmacy Electronically, [facility], [place] - [id number], Partial fill upon patient request if the prescription is... Start Date: 10/02/21 Stop Date: 01/25/23 Status: Ordered atorvastatin 80 mg oral tablet 1 tablet = 80 mg, By Mouth, Daily, # 30 tablet, 11 Refills, Maintenance, 11/07/21 14:34:00 EST, Tablet, [facility] [id number], Partial fill upon patient request if the prescription is for a schedule II opioid drug., 170, cm, 0... Start Date: 11/07/21 Status: Ordered atovaquone 750 mg/5 mL oral suspension 10 mL = 1,500 mg, By Mouth, Daily, for 60 days, # 600 mL, 11 Refills, Acute 10/28/23 14:35:00 EST, 11/07/21 14:35:00 EST, Suspension, [facility], [place] - [id number], Pls cancel bactrim prescription. Atovaquone to replace bactrim, 170,... Start Date: 11/07/21 Stop Date: 10/28/23 Status: Ordered Biktarvy oral tablet 1 tablet, By Mouth, Daily, # 30 tablet, 11 Refills, [facility], 30, TAKE ONE TABLET BY MOUTH [...] 12/02/21 16:54:00 EDT, Route to Pharmacy Electronically, [facility] [place] [place] - [id number], Partial fill upon pilar... Start Date: 12/02/21 [...] FOR CONSTIPATION, # 60 each, 2 Refills, [facility], 170, cm, 10/10/21 13:45:00 EST, Height, 110, kg, 09/29/21 21:14:00 EST, Dry Weight Start Date: 12/01/21 Status: Ordered hydrocortisone 0.5% topical cream See Instructions, use sparingly on face, use on all other affected areas, # 28 Gm, 11 Refills, Maintenance, 03/07/21 6:50:00 EDT, [facility] [id number], use sparingly on face, use on all other affected areas, 174, cm, 01/13/21... Start Date: 03/07/21 Status: Ordered Incruse Ellipta 62.5 mcg/inh inhalation powder 1 puffs, Inhalation, Every 24 hours, doses should be taken AT least 24 HOURS APART, # 30 Unknown, 11 Refills, 08/25/21 12:34:00 EST, [facility] [id number], 173, cm, 08/25/21 12:31:00 EST, Height, 84, kg, 04/19/21 2:36:00 EDT,... Start Date: 08/25/21 Status: Ordered ketoconazole 2% topical cream 1 application, Topically, Daily, # 30 Gm, 11 Refills, Maintenance, 12/02/21 16:56:00 EDT, [facility] [id number], 1 application Topically Daily, 170, cm, 10/10/21 [...] EDT, Partial fill upon patientrequest Start Date: 9/22/20 Status: Ordered mirtazapine 30 mg oral tablet 1 tablet = 30 mg, By Mouth, Daily at bedtime, patient needs to get labs, pls inform no more refillsuntil labs, # 30 tablet, 0 Refills, Maintenance, 11/11/21 17:22:00 EST, Tablet, [facility] [id number], 170, cm, 10/10/21 13:45... Start Date: 11/11/21 Stop Date: 12/11/21 Status: Ordered multivitamin with minerals Calcium and Magnesium oral tablet 1 tablet, By Mouth, Daily, # 30 tablet, 11 Refills, Maintenance, 12/15/21 6:32:00 EDT, Tablet, [facility] [id number], 1 tablet By Mouth Daily, 173, cm, 12/05/21 17:38:00 EDT,Height, 127, kg, 12/05/21 17:38:00 EDT, Dry Weight Start Date: 12/15/21 Status: Ordered Narcan 4 mg/0.1 mL nasal spray See Instructions, 4 mg Once may repeat every 2 to 3 minutes until patient responds, # 2 each, 1 Refills, Soft Stop, 08/24/19 9:41:00 EST, [place], [place] -, MAMADOU García to package pick up for Pt., 170, cm, 08/24/19 9:21:00 EST, Height, 66.36,... Start Date: 08/24/19 Status: Ordered Nicotine 2 mg gum 1 each = 2 mg, Chew, Every 2 hours, PRN as needed for smoking cessation, for 4 week(s), # 160 each,11 Refills, Acute 09/11/22 12:53:00 EST, 10/10/21 12:53:00 EST, Gum, [facility] [id number], Partial fill upon patient request... Start Date: [...] Tablet, [facility] [id number], Partial fill upon patient request if the [...] Electronically, [facility] [id number], Partial fill upon patient request if the prescription is f... Start Date: 10/02/21 Stop Date: 12/31/21 Status: Ordered polyethylene glycol 3350 oral powder for reconstitution See Instructions, DISSOLVE 17grams powder IN WATER BEFORE drinking 2 (two) times a day NEEDED FOR CONSTIPATION, # 510 Gm, 11 Refills, [facility], 30, DISSOLVE 17grams powder IN WATER BEFORE drinking 2 (two) times a day NEEDED FOR CONSTIPATI... Start Date: 09/03/21 Status: Ordered polyethylene glycol 3350 oral powder for reconstitution = 17 Gm, By Mouth, 2 times a day, PRN Constipation, dissolve in water before taking, # 527 Gm, 3 Refills, Maintenance, 12/02/21 16:55:00 EDT, REC Powder, [facility] [id number], 17 Gm By Mouth 2 times a day,x30 days,PRN:Constip... Start Date: 12/02/21 Stop Date: 04/01/22 Status: Ordered rOPINIRole 0.5 mg oral tablet 1 tablet = 0.5 mg, By Mouth, Daily at bedtime, 1 to 3 hours before bedtime, # 30 tablet, 11 Refills, Maintenance, 08/21/21 13:32:00 EST, Tablet, [facility] [id number], Partial fill upon patient request if the prescription is f... Start Date: 08/21/21 Status: Ordered Senna 8.6 mg oral tablet 1 or 2 tablets, By Mouth, Daily at bedtime, PRN, # 60 tablet, Refills 5, Tot. Refills 5, Maintenance, Constipation, 10/10/21 14:43:00 EST, Route to Pharmacy Electronically, [facility], [facility] [id number] Tablet, Partial fill upon patie... Start Date: 10/10/21 Status: Ordered sildenafil 100 mg oral tablet 1 tablet = 100 mg, By Mouth, Daily, 1 hour before sexual activity, # 20 tablet, 11 Refills, Maintenance, 03/07/21 6:49:00 EDT, Tablet, [facility] [id number], Partial fill upon patient request if the prescription is for a sched... Start Date: 03/07/21 Status: Ordered varenicline 1mg tablet 1 tablet = 1 mg, By Mouth, Daily, 0.5 tab daily x 3 days then 0.5 tab BID x 3 days then 1 tab BID, # 30 tablet, 4 Refills, Maintenance, 11/13/21 15:15:00 EST, Tablet, [facility] [id number], Partial fill upon patient request if... 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
--- OUTSIDE RECORDS SUMMARY | 2023-07-12 20:14 | XMS_ITS | Continuity of Care Document ---
Author Name Unknown Organization [facility] Address [address] [place] [address]- Care Team Providers Care Snaker Tractor Driver Name Role Phone Namrata Prieto MD Primary Care Physician Encounter [facility] Date(s): 04/25/20 - 05/30/20 [facility] [address] [place] [address]- [facility] Attending Physician: Namrata Prieto MD Admitting [...] 05/28/20 16:31:00 EDT, Route to Pharmacy Electronically, [facility] [id number], 171, cm, 05/28/20 16:01:00 EDT, Height, 59.5, kg, 12/29/19... Start Date: 05/28/20 Status: Ordered atovaquone 750 mg/5 mL oral suspension 10 mL = 1,500 mg, By Mouth, Daily, for 60 days, # 600 mL, 11 Refills, Acute 05/18/22 16:35:00 EDT, 05/28/20 16:35:00 EDT, Suspension, [place], [place] - [id number], Pls cancel bactrim prescription. Atovaquone to replace bactrim, 171,... Start Date: 05/28/20 Stop Date: 05/18/22 Status: Ordered Biktarvy oral tablet 1 tablet, By Mouth, Daily, for 30 days, # 30 tablet, 11 Refills, Hard Stop 05/23/21 16:35:00 EDT, 05/28/20 16:35:00 EDT, Tablet, [facility] [id number], 1 tablet By Mouth Daily,x30 days, 171, cm, 05/28/20 16:01:00 EDT, Height,... Start Date: 05/28/20 Stop Date: 05/23/21 Status: Ordered Colace sodium 100 mg oral capsule 100 mg, 1, capsule, By Mouth, 2 times a day, PRN, # 60 capsule, Refills 11, Tot. Refills 11, Maintenance, for constipation, 05/28/20 16:34:00 EDT, Route to Pharmacy Electronically, [facility] [id number], 171, cm, 05/28/20 16:0... Start Date: 05/28/20 Status: Ordered gabapentin 100 mg oral capsule 200 mg, 2, capsule, By Mouth, 3 times a day, # 180 capsule, Refills 1, Tot. Refills 1, Maintenance,05/07/20 16:16:00 EDT, Route to Pharmacy Electronically, [facility] [id number], 171, cm, 03/26/20 8:54:00 EDT, Height, 59.5, k... Start Date: 05/07/20 Stop Date: 09/04/20 Status: Ordered hydrocortisone 0.5% topical cream See Instructions, use sparingly on face, use on all other affected areas, # 28 Gm, 11 Refills, Maintenance, 05/28/20 16:37:00 EDT, [facility] [id number], use sparingly on face, use on all other affected areas, 171, cm, ... Start Date: 05/28/20 Status: Ordered influenza virus vaccine, inactivated adjuvanted preservative-free quadrivalent intramuscular susp See Instructions, none, # 1 each, 0 Refills, Maintenance, 05/30/20 9:27:00 EDT, [facility], none, 171, cm, 05/28/20 16:01:00 EDT, Height, 59.5, kg, 12/29/19 15:28:00 EDT, Dry Weight Start Date: 05/30/20 Status: Ordered ketoconazole 2% topical cream 1 application, Topically, 2 times a day, for 28 days, use on the face, # 60 Gm, 11 Refills, Acute 04/29/21 16:40:00 EDT, 05/28/20 16:40:00 EDT, Cream, [facility], [facility] [id number], 1 application Topically 2 times a day,x28 days,Instr... Start Date: 05/28/20 Stop Date: 04/29/21 Status: Ordered ketoconazole 2% topical shampoo 1 application, Topically, Daily, try daily for 5 days as a shampoo, # 120 mL, 11 Refills, Soft Stop, 05/28/20 16:37:00 EDT, Shampoo, [facility] [id number], 1 application Topically Daily,Instr:try daily for 5 days as a shampoo,... Start Date: 05/28/20 Status: Ordered lithium 300 mg oral capsule 2 capsule = 600 mg, By Mouth, 2 times a day, # 120 capsule, 1 Refills, Maintenance, 05/07/20 16:16:00 EDT, [facility], [facility] [id number], Increase in dose per Psychiatry, 171, cm, 03/26/20 8:54:00 EDT, Height, 59.5, kg, 12/29/19 15:28... Start Date: 05/07/20 Status: Ordered LORazepam 0.5 mg oral tablet 1 tablet = 0.5 mg, By Mouth, 2 times a day, PRN Anxiety, # 60 tablet, 1 Refills, Maintenance, 05/07/20 16:16:00 EDT, Tablet, [facility], [place] - [id number], 171, cm, 03/26/20 8:54:00 EDT, Height, 59.5, [...] 05/28/20 16:35:00 EDT, Tablet, [facility] [id number], 171, cm, 05/28/20 16:01:00 EDT, Height, 59.5, kg, 12/29/19 15:28:00 EDT, Dry Weight Start Date: 05/28/20 Stop Date: 11/24/20 Status: Ordered multivitamin with minerals Calcium and Magnesium oral tablet 1 tablet, By Mouth, Daily, # 30 tablet, 11 Refills, Maintenance, 05/28/20 16:35:00 EDT, Tablet, [facility] [id number], 1 tablet By Mouth Daily, 171, cm, 05/28/20 16:01:00 EDT, Height, 59.5, kg, 12/29/19 15:28:00 EDT, Dry Weight Start Date: 05/28/20 Stop Date: 05/23/21 Status: Ordered Narcan 4 mg/0.1 mL nasal spray See Instructions, 4 mg Once may repeat every 2 to 3 minutes until patient responds, # 2 each, 1 Refills, Soft Stop, 08/24/19 9:41:00 EST, [place], [place] -, MAMADOU García to cotton picker operator for Pt., 170, cm, 08/24/19 9:21:00 EST, Height, 66.36,... Start Date: 08/24/19 Status: Ordered Nicotine 2 mg gum 1 each = 2 mg, Chew, Every 2 hours, PRN as needed for smoking cessation, # 160 each, 3 Refills, Maintenance, 05/28/20 16:51:00 EDT, Gum, [facility] [id number], 171, cm, 05/28/20 16:01:00 EDT, Height, 59.5, kg, 12/29/19 15:28:0... Start Date: 05/28/20 Status: Ordered Nicotine 7 mg/24 hour patch 1 patch, Topically, Daily, for 30 days, # 30 patch, 0 Refills, Acute 06/27/20 16:51:00 EDT, 05/28/20 16:51:00 EDT, Patch, [place], [place] - [id number], 1 patch Topically Daily,x30 days, 171, cm, [...] Refills, Soft Stop, 05/30/20 9:25:00 EDT, Suspension, [facility], 0.5 mL Intramuscular Once, 171, cm, 05/28/20 16:01:00 EDT, Height, 59.5, kg,12/29/19 15:28:00 EDT, Dry Weight Start Date: 05/30/20 Status: Ordered polyethylene glycol 3350 oral powder for reconstitution = 17 Gm, By Mouth, 2 times a day, PRN Constipation, dissolve in water before taking, # 527 Gm, 3 Refills, Maintenance, 11/28/19 9:42:00 EDT, REC Powder, [place], [place] -, 17 Gm By Mouth 2 times a day,x30 days,PRN:Constipation,Instr:... Start Date: 11/28/19 Stop Date: 03/27/20 Status: Ordered SEROquel 25 mg oral tablet 25 mg, 1, tablet, By Mouth, Daily at bedtime, # 30 tablet, Refills 2, Tot. Refills 2, Maintenance, 03/26/20 9:29:00 EDT, Route to Pharmacy Electronically, [place], [place] -, 171, cm, 03/26/20 8:54:00 EDT, Height, 59.5, kg, 12/29/19 1... Start Date: 03/26/20 Stop Date: 06/24/20 Status: Ordered Viagra 50 mg oral tablet 1 tablet = 50 mg, By Mouth, Daily, PRN sexual activity, 1 hour before sexual activity, # 10 tablet,11 Refills, Maintenance, 05/29/20 20:14:00 EDT, Tablet, [place], [place] - [id number], 171, cm, 05/28/20 16:01:00 EDT, Height, 59.5, k... 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 Sex
--- OUTSIDE RECORDS SUMMARY | 2023-07-12 20:14 | XMS_ITS | Continuity of Care Document ---
Author Name Unknown Organization [facility] Address [address] [place] [address]- Care Team Providers Care Business Banking Manager Name Role Phone Conner QUEEN, Namrata Agarwal Primary Care Physician [phone] Encounter [facility] [place] Date(s): 08/05/21 - 10/18/21 [facility] [address] [place] [id number] Attending Physician: Isidoro Neely MD Admitting [...] 13:14:00 EST, Powder, Route to Pharmacy Electronically, [id number], [facility]... Start Date: 08/21/21 Stop Date: 01/18/22 Status: Ordered Albuterol (Eqv-ProAir HFA) 90 mcg/inh inhalation aerosol 2 puffs, Inhalation, Every 6 hours, # 8.5 Gm, 11 Refills, 08/25/21 12:34:00 EST, [facility], [facility] [id number], 25, 2 puffs Inhalation Every 6 hours, 173, cm, 08/25/21 12:31:00 EST, Height, 84, kg, 04/19/21 2:36:00 EDT, Dry Weight Start Date: 08/25/21 Status: Ordered amLODIPine 10 mg oral tablet 10 mg, 1, tablet, By Mouth, Daily, # 30 tablet, Refills 11, Tot. Refills 11, Maintenance, 08/27/21 16:46:00 EST, Route to Pharmacy Electronically, [facility], [facility] [id number], 173,cm, 08/25/21 12:31:00 EST, Height, 84, kg, 04/19/21... Start Date: 08/27/21 Status: Ordered aspirin 81 mg oral tablet, chewable 81 mg, 1, tablet, By Mouth, Daily, # 120 tablet, Refills 3, Tot. Refills 3, Maintenance, 10/02/21 11:47:00 EST, Route to Pharmacy Electronically, [facility] [id number], Partial fill upon patient request if the prescription is... Start Date: 10/02/21 Stop Date: 01/25/23 Status: Ordered atorvastatin 80 mg oral tablet 1 tablet = 80 mg, By Mouth, Daily at bedtime, # 90 tablet, 4 Refills, Maintenance, 10/02/21 11:47:00 EST, Tablet, [facility], [place] - [id number], Partial fill upon patient request if the prescription is for a schedule II opioid drug.,... Start Date: 10/02/21 Stop Date: 12/26/22 Status: Ordered atovaquone 750 mg/5 mL oral suspension 10 mL = 1,500 mg, By Mouth, Daily, for 60 days, # 600 mL, 11 Refills, Acute 02/25/23 6:50:00 EDT, 03/07/21 6:50:00 EDT, Suspension, [facility], [place] - [id number], Pls cancel bactrim prescription. Atovaquone to replace bactrim, 174, cm... Start Date: 03/07/21 Stop Date: 02/25/23 Status: Ordered Biktarvy oral tablet 1 tablet, By Mouth, Daily, # 30 tablet, 11 Refills, [facility], 30, TAKE ONE TABLET BY MOUTH [...] EST, Supply Start Date: 09/01/21 Status: Ordered Chantix Starter Pack 0.5 mg-1 mg oral tablet 1 tablet, By Mouth, 2 times a day, as directed on package labeling, # 53 tablet, 0 Refills, Maintenance, 10/13/21 12:51:00 EST, Tablet, [place], [place] - [id number], Partial fill upon patient request if the prescription is for a sche... Start Date: 10/13/21 Status: Ordered docusate sodium 100 mg oral capsule 1 capsule, By Mouth, 2 times a day, PRN NEEDED FOR CONSTIPATION, # 60 each, 5 Refills, [facility], 173, cm, 04/21/21 8:17:00 EDT, Height, 84, kg, 04/19/21 2:36:00 EDT, Dry Weight Start Date: 06/02/21 Status: Ordered hydrocortisone 0.5% topical cream See Instructions, use sparingly on face, use on all other affected areas, # 28 Gm, 11 Refills, Maintenance, 03/07/21 6:50:00 EDT, [place], [place] - [id number], use sparingly on face, use on all other affected areas, 174, cm, 01/13/21... Start Date: 03/07/21 Status: Ordered Incruse Ellipta 62.5 mcg/inh inhalation powder 1 puffs, Inhalation, Every 24 hours, doses should be taken AT least 24 HOURS APART, # 30 Unknown, 11 Refills, 08/25/21 12:34:00 EST, [place], [place] - [id number], 173, cm, 08/25/21 12:31:00 EST, Height, 84, kg, 04/19/21 2:36:00 EDT,... Start Date: 08/25/21 Status: Ordered ketoconazole 2% topical cream See Instructions, APPLY TO THE AFFECTED AREA TOPICALLY 2 (two) times a day. USE ON THE FACE, # 60 Gm, 11 Refills, [facility], 30, APPLY TO THE AFFECTED [...] 11 Refills, Maintenance, 03/07/21 6:51:00 EDT, Tablet, [place], [place] - [id number], 1 tablet By Mouth Daily, 174, cm, 01/13/21 8:20:00 EDT, Height, 93, kg, 01/08/21 18:17:00 EDT, Dry Weight Start Date: 03/07/21 Status: Ordered Narcan 4 mg/0.1 mL nasal spray See Instructions, 4 mg Once may repeat every 2 to 3 minutes until patient responds, # 2 each, 1 Refills, Soft Stop, 08/24/19 9:41:00 EST, [place], [place] -, MAMADOU García to clam picker for Pt., 170, cm, 08/24/19 9:21:00 EST, Height, 66.36,... Start Date: 08/24/19 Status: Ordered Nicotine 2 mg gum 1 each = 2 mg, Chew, Every 2 hours, PRN as needed for smoking cessation, for 4 week(s), # 160 each,11 Refills, Acute 09/11/22 12:53:00 EST, 10/10/21 12:53:00 EST, Gum, [place], [place] - [id number], Partial fill upon patient request... Start Date: [...] Refills, Maintenance, 08/21/21 13:33:00 EST, DIS Tablet, [place], [place] - [id number], Partial fill upon patient request if the [...] 10/02/21 11:47:00 EST, Route to Pharmacy Electronically, [facility] [id number], Partial fill upon patient request if the prescription is f... Start Date: 10/02/21 Stop Date: 12/31/21 Status: Ordered polyethylene glycol 3350 oral powder for reconstitution = 17 Gm, By Mouth, 2 times a day, PRN Constipation, dissolve in water before taking, # 527 Gm, 3 Refills, Maintenance, 11/28/19 9:42:00 EDT, REC Powder, [place], [place] -, 17 Gm By Mouth 2 times a day,x30 days,PRN:Constipation,Instr:... Start Date: 11/28/19 Stop Date: 03/27/20 Status: Ordered polyethylene glycol 3350 oral powder for reconstitution See Instructions, DISSOLVE 17grams powder IN WATER BEFORE drinking 2 (two) times a day NEEDED FOR CONSTIPATION, # 510 Gm, 11 Refills, [facility], 30, DISSOLVE 17grams powder IN WATER BEFORE drinking 2 (two) times a day NEEDED FOR CONSTIPATI... Start Date: 09/03/21 Status: Ordered rOPINIRole 0.5 mg oral tablet 1 tablet = 0.5 mg, By Mouth, Daily at bedtime, 1 to 3 hours before bedtime, # 30 tablet, 11 Refills, Maintenance, 08/21/21 13:32:00 EST, Tablet, [facility] [id number], Partial fill upon patient request if the prescription is f... Start Date: 08/21/21 Status: Ordered Senna 8.6 mg oral tablet 1 or 2 tablets, By Mouth, Daily at bedtime, PRN, # 60 tablet, Refills 5, Tot. Refills 5, Maintenance, Constipation, 10/10/21 14:43:00 EST, Route to Pharmacy Electronically, [facility] [id number] Tablet, Partial fill upon patie... Start Date: 10/10/21 Status: Ordered sildenafil 100 mg oral tablet 1 tablet = 100 mg, By Mouth, Daily, 1 hour before sexual activity, # 20 tablet, 11 Refills, Maintenance, 03/07/21 6:49:00 EDT, Tablet, [facility] [place], [place] - [id number], Partial fill upon patient request if the prescription is for a sched... 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
--- OUTSIDE RECORDS SUMMARY | 2023-07-12 20:14 | XMS_ITS | Continuity of Care Document ---
Author Name Unknown Organization [facility] Special y Address [address] [place] [address]- Care Team Providers Care Dye Blender Name Role Phone Conner QUEEN, Namrtaa Agarwal Primary Care Physician Encounter [facility] Date(s): 10/06/21 - 11/08/21 [facility] [address], [place] [address] Attending Physician: Isidoro Neely MD Admitting Physician: Isidoro Neely MD Allergies, Adverse Reactions, Alerts Substance Reaction Severity Status Latex rash Active Suboxone migraine (PO), fevers [...] 13:14:00 EST, Powder, Route to Pharmacy Electronically, [id number], [facility]... Start Date: 08/21/21 Stop Date: 01/18/22 Status: Ordered Albuterol (Eqv-ProAir HFA) 90 mcg/inh inhalation aerosol 2 puffs, Inhalation, Every 6 hours, # 8.5 Gm, 11 Refills, 08/25/21 12:34:00 EST, [facility] [id number], 25, 2 puffs Inhalation Every 6 hours, 173, cm, 08/25/21 12:31:00 EST, Height, 84, kg, 04/19/21 2:36:00 EDT, Dry Weight Start Date: 08/25/21 Status: Ordered amLODIPine 10 mg oral tablet 10 mg, 1, tablet, By Mouth, Daily, # 30 tablet, Refills 11, Tot. Refills 11, Maintenance, 08/27/21 16:46:00 EST, Route to Pharmacy Electronically, [facility] [id number], 173,cm, 08/25/21 12:31:00 EST, Height, 84, kg, 04/19/21... Start Date: 08/27/21 Status: Ordered aspirin 81 mg oral tablet, chewable 81 mg, 1, tablet, By Mouth, Daily, # 120 tablet, Refills 3, Tot. Refills 3, Maintenance, 10/02/21 11:47:00 EST, Route to Pharmacy Electronically, [facility] [id number], Partial fill upon patient request if the prescription is... Start Date: 10/02/21 Stop Date: 01/25/23 Status: Ordered atorvastatin 80 mg oral tablet 1 tablet = 80 mg, By Mouth, Daily, # 30 tablet, 11 Refills, Maintenance, 11/07/21 14:34:00 EST, Tablet, [place], [place] - [id number], Partial fill upon patient request if the prescription is for a schedule II opioid drug., 170, cm, 0... Start Date: 11/07/21 Status: Ordered atovaquone 750 mg/5 mL oral suspension 10 mL = 1,500 mg, By Mouth, Daily, for 60 days, # 600 mL, 11 Refills, Acute 10/28/23 14:35:00 EST, 11/07/21 14:35:00 EST, Suspension, [place], [place] - [id number], Pls cancel bactrim prescription. Atovaquone to replace bactrim, 170,... Start Date: 11/07/21 Stop Date: 10/28/23 Status: Ordered Biktarvy oral tablet 1 tablet, By Mouth, Daily, # 30 tablet, 11 Refills, [facility], 30, TAKE ONE TABLET BY MOUTH [...] FOR CONSTIPATION, # 60 each, 5 Refills, [facility], 173, cm, 04/21/21 8:17:00 EDT, Height, 84, kg, 04/19/21 2:36:00 EDT, Dry Weight Start Date: 06/02/21 Status: Ordered hydrocortisone 0.5% topical cream See Instructions, use sparingly on face, use on all other affected areas, # 28 Gm, 11 Refills, Maintenance, 03/07/21 6:50:00 EDT, [place], [place] - [id number], use sparingly on face, use on all other affected areas, 174, cm, 01/13/21... Start Date: 03/07/21 Status: Ordered Incruse Ellipta 62.5 mcg/inh inhalation powder 1 puffs, Inhalation, Every 24 hours, doses should be taken AT least 24 HOURS APART, # 30 Unknown, 11 Refills, 08/25/21 12:34:00 EST, [place], [place] - [id number], 173, cm, 08/25/21 12:31:00 EST, Height, 84, kg, 04/19/21 2:36:00 EDT,... Start Date: 08/25/21 Status: Ordered ketoconazole 2% topical cream See Instructions, APPLY TO THE AFFECTED AREA TOPICALLY 2 (two) times a day. 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 Start Date: 08/24/19 Status: Ordered Nicotine 2 mg gum 1 each = 2 mg, Chew, Every 2 hours, PRN as needed for smoking cessation, for 4 week(s), # 160 each,11 Refills, Acute 09/11/22 12:53:00 EST, 10/10/21 12:53:00 EST, Gum, [facility] [id number], Partial fill upon patient request... Start Date: [...] DIS Tablet, [facility] [id number], Partial fill upon patient request if the [...] 10/02/21 11:47:00 EST, Route to Pharmacy Electronically, [facility], [facility] [id number], Partial fill upon patient request if the prescription is f... Start Date: 10/02/21 Stop Date: 12/31/21 Status: Ordered polyethylene glycol 3350 oral powder for reconstitution = 17 Gm, By Mouth, 2 times a day, PRN Constipation, dissolve in water before taking, # 527 Gm, 3 Refills, Maintenance, 11/28/19 9:42:00 EDT, REC Powder, [place], [place] -, 17 Gm By Mouth 2 times a day,x30 days,PRN:Constipation,Instr:... Start Date: 11/28/19 Stop Date: 03/27/20 Status: Ordered polyethylene glycol 3350 oral powder for reconstitution See Instructions, DISSOLVE 17grams powder IN WATER BEFORE drinking 2 (two) times a day NEEDED FOR CONSTIPATION, # 510 Gm, 11 Refills, [facility], 30, DISSOLVE 17grams powder IN WATER BEFORE drinking 2 (two) times a day NEEDED FOR CONSTIPATI... Start Date: 09/03/21 Status: Ordered rOPINIRole 0.5 mg oral tablet 1 tablet = 0.5 mg, By Mouth, Daily at bedtime, 1 to 3 hours before bedtime, # 30 tablet, 11 Refills, Maintenance, 08/21/21 13:32:00 EST, Tablet, [facility] [id number], Partial fill upon patient request if the prescription is f... Start Date: 08/21/21 Status: Ordered Senna 8.6 mg oral tablet 1 or 2 tablets, By Mouth, Daily at bedtime, PRN, # 60 tablet, Refills 5, Tot. Refills 5, Maintenance, Constipation, 10/10/21 14:43:00 EST, Route to Pharmacy Electronically, [facility] [id number] Tablet, Partial fill upon patie... Start Date: 10/10/21 Status: Ordered sildenafil 100 mg oral tablet 1 tablet = 100 mg, By Mouth, Daily, 1 hour before sexual activity, # 20 tablet, 11 Refills, Maintenance, 03/07/21 6:49:00 EDT, Tablet, [facility] [id number], Partial fill upon patient request if the prescription is for a sched... 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
--- OUTSIDE RECORDS SUMMARY | 2023-07-12 20:14 | XMS_ITS | Continuity of Care Document ---
Author Name Unknown Organization [facility] Address [address] [place] [address]- Care Team Providers Care Custodial Operations Manager Name Role Phone Conner QUEEN, Namrata Agarwal Primary Care Physician Encounter [facility] Date(s): 03/18/20 - 05/18/20 [facility] [address] [place] [address]- Attending Physician: Isidoro Neely MD Admitting Physician: [...] 11/28/19 9:43:00 EDT, Route to Pharmacy Electronically, [facility] [place], [place] -, 172, cm, 09/26/19 8:57:00 EST, Height, 66.3, kg, 09/11/19 13:26:00 EST,... Start Date: 11/28/19 Stop Date: 05/26/20 Status: Ordered atovaquone 750 mg/5 mL oral suspension 10 mL = 1,500 mg, By Mouth, Daily, for 60 days, # 600 mL, 5 Refills, Acute 11/22/20 9:44:00 EDT, 11/28/19 9:44:00 EDT, Suspension, [facility] [place], [place] -, Pls cancel bactrim prescription. Atovaquone to replace bactrim, 172, cm, 09/26/19 8... Start Date: 11/28/19 Stop Date: 11/22/20 Status: Ordered Biktarvy oral tablet 1 tablet, By Mouth, Daily, for 30 days, # 30 tablet, 5 Refills, Hard Stop 08/25/20 12:37:00 EST, 02/27/20 12:37:00 EDT, Tablet, [place], [place] -, 1 tablet By Mouth Daily,x30 days, 171, cm, 02/22/20 10:16:00 EDT, Height, 59.5, kg, 04... Start Date: 02/27/20 Stop Date: 08/25/20 Status: Ordered Biktarvy oral tablet 1 tablet, By Mouth, Daily, # 30 tablet, 5 Refills, Maintenance, 08/18/20 5:43:00 EST, Tablet, [place], [place] -, 1 tablet By Mouth Daily,x30 [...] 12/29/19 16:19:00 EDT, Route to Pharmacy Electronically, [place], [place] -, 171, cm, 12/29/19 15:28:00 EDT, Hei... Start Date: 12/29/19 Status: Ordered gabapentin 100 mg oral capsule 200 mg, 2, capsule, By Mouth, 3 times a day, # 180 capsule, Refills 1, Tot. Refills 1, Maintenance,05/07/20 16:16:00 EDT, Route to Pharmacy Electronically, [place], [place] - [id number], 171, cm, 03/26/20 8:54:00 EDT, Height, 59.5, k... Start Date: 05/07/20 Stop Date: 09/04/20 Status: Ordered hydrocortisone 0.5% topical cream See Instructions, apply in a thin film to the hands and rub in gently 3 times a day for 5 days, # 28 Gm, 1 Refills, Maintenance, 02/27/20 12:35:00 EDT, [place], [place] -, apply in athin film to the hands and rub in gently 3 times a... Start Date: 02/27/20 Status: Ordered ketoconazole 2% topical shampoo 1 application, Topically, Daily, try daily for 5 days as a shampoo, # 120 mL, 3 Refills, Soft Stop,12/21/19 11:58:00 EDT, Shampoo, [place], [place] -, 1 application Topically Daily,Instr:try daily for 5 days as a shampoo, 172, cm, 01... Start Date: 12/21/19 Status: Ordered lithium 300 mg oral capsule 2 capsule = 600 mg, By Mouth, 2 times a day, # 120 capsule, 1 Refills, Maintenance, 05/07/20 16:16:00 EDT, [place], [place] - [id number], Increase in dose per Psychiatry, 171, cm, 03/26/20 8:54:00 EDT, Height, 59.5, kg, 12/29/19 15:28... Start Date: 05/07/20 Status: Ordered LORazepam 0.5 mg oral tablet 1 tablet = 0.5 mg, By Mouth, 2 times a day, PRN Anxiety, # 60 tablet, 1 Refills, Maintenance, 05/07/20 16:16:00 EDT, Tablet, [place], [place] - [id number], 171, cm, 03/26/20 8:54:00 EDT, Height, 59.5, [...] tablet, 5 Refills, Maintenance, 11/28/19 9:41:00EDT, Tablet, [place], [place] -, 172, cm, 09/26/19 8:57:00 EST, Height, 66.3, kg, 09/11/19 13:26:00 EST, Dry Weight Start Date: 11/28/19 Stop Date: 05/26/20 Status: Ordered multivitamin with minerals Calcium and Magnesium oral tablet 1 tablet, By Mouth, Daily, # 30 tablet, 5 Refills, Maintenance, 09/26/19 12:05:00 EST, Tablet, [facility], 1 tablet By Mouth Daily,x30 days, 172, cm, 09/26/19 8:57:00 EST, Height, 66.3, kg, 09/11/19 13:26:00 EST, Dry Weight Start Date: 09/26/19 Stop Date: 03/24/20 Status: Ordered Narcan 4 mg/0.1 mL nasal spray See Instructions, 4 mg Once may repeat every 2 to 3 minutes until patient responds, # 2 each, 1 Refills, Soft Stop, 08/24/19 9:41:00 EST, [facility], MAMADOU García to flower 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 Start Date: 11/28/19 Stop Date: 03/27/20 Status: Ordered SEROquel 25 mg oral tablet 25 mg, 1, tablet, By Mouth, Daily at bedtime, # 30 tablet, Refills 2, Tot. Refills 2, Maintenance, 03/26/20 9:29:00 EDT, Route to Pharmacy Electronically, [facility] [place], [place] -, 171, cm, 03/26/20 8:54:00 EDT, [...]
--- OUTSIDE RECORDS SUMMARY | 2023-07-12 20:14 | XMS_ITS | Continuity of Care Document ---
Author Name Unknown Organization [facility] Address [address] [place] [address]- Care Team Providers Care Agent Contract Clerk Name Role Phone Conner QUEEN, Namrata Agarwal Primary Care Physician [phone] Encounter [facility] Date(s): 03/03/22 - 04/02/22 [facility] [address] [place] [id number] Allergies, Adverse Reactions, Alerts [...] 8:29:00 EDT, Powder, Route to Pharmacy Electronically, [id number], [facility] - [facility]... Start Date: 01/07/22 Stop Date: 01/02/23 Status: Ordered Albuterol (Eqv-ProAir HFA) 90 mcg/inh inhalation aerosol 2 puffs, Inhalation, Every 6 hours, # 8.5 Gm, 11 Refills, 08/25/21 12:34:00 EST, [facility] [id number], 25, 2 puffs Inhalation Every 6 hours, 173, cm, 08/25/21 12:31:00 EST, Height, 84, kg, 04/19/21 2:36:00 EDT, Dry Weight Start Date: 08/25/21 Status: Ordered amLODIPine 10 mg oral tablet 10 mg, 1, tablet, By Mouth, Daily, # 30 tablet, Refills 11, Tot. Refills 11, Maintenance, 08/27/21 16:46:00 EST, Route to Pharmacy Electronically, [facility] [id number], 173,cm, 08/25/21 12:31:00 EST, Height, 84, kg, 04/19/21... Start Date: 08/27/21 Status: Ordered Asperflex 4% topical film 1 patch, Topically, Daily, for 30 days, # 30 patch, 11 Refills, Acute 03/12/23 14:41:00 EDT, 03/17/22 14:41:00 EDT, [facility] [id number], Partial fill upon patient request if the prescription is for a schedule II opioid drug.... Start Date: 03/17/22 Stop Date: 03/12/23 Status: Ordered aspirin 81 mg oral tablet, chewable 81 mg, 1, tablet, By Mouth, Daily, # 120 tablet, Refills 3, Tot. Refills 3, Maintenance, 10/02/21 11:47:00 EST, Route to Pharmacy Electronically, [facility] [id number], Partial fill upon patient request if the prescription is... Start Date: 10/02/21 Stop Date: 01/25/23 Status: Ordered atorvastatin 80 mg oral tablet 1 tablet = 80 mg, By Mouth, Daily, # 30 tablet, 11 Refills, Maintenance, 11/07/21 14:34:00 EST, Tablet, [facility] [id number], Partial fill upon patient request if the prescription is for a schedule II opioid drug., 170, cm, 0... Start Date: 11/07/21 Status: Ordered atovaquone 750 mg/5 mL oral suspension 10 mL = 1,500 mg, By Mouth, Daily, for 60 days, # 600 mL, 11 Refills, Acute 10/28/23 14:35:00 EST, 11/07/21 14:35:00 EST, Suspension, [facility] [id number], Pls cancel bactrim prescription. Atovaquone to replace bactrim, 170,... Start Date: 11/07/21 Stop Date: 10/28/23 Status: Ordered Biktarvy oral tablet 1 tablet, By Mouth, Daily, # 30 tablet, 11 Refills, [facility], 30, TAKE ONE TABLET BY [...] EDT, Route to Pharmacy Electronically, [facility] [id number], Partial fill upon pilar... Start Date: 12/02/21 [...] Soft Stop, 03/05/22 10:37:00 EDT, [facility] [id number], Partial fill upon patient request if the prescriptio... Start Date: 03/05/22 Status: Ordered ergocalciferol 26405 iu oral capsule 50,000 [employer], 1, capsule, By Mouth, Every week, for 30 days, # 5 capsule, Refills 1, Tot. Refills 1, Acute 05/04/22 10:22:00 EDT, 03/05/22 10:22:00 EDT, Route to Pharmacy Electronically, [facility] [id number], 17... Start Date: 03/05/22 Stop Date: 05/04/22 Status: Ordered hydrocortisone 0.5% topical cream See Instructions, use sparingly on face, use on all other affected areas, # 28 Gm, 11 Refills, Maintenance, 03/07/21 6:50:00 EDT, [facility] [id number], use sparingly on face, use on all other affected areas, 174, cm, 01/13/21... Start Date: 03/07/21 Status: Ordered Incruse Ellipta 62.5 mcg/inh inhalation powder 1 puffs, Inhalation, Every 24 hours, doses should be taken AT least 24 HOURS APART, # 30 Unknown, 11 Refills, 08/25/21 12:34:00 EST, [facility] [id number], 173, cm, 08/25/21 12:31:00 EST, Height, 84, kg, 04/19/21 2:36:00 EDT,... Start Date: 08/25/21 Status: Ordered ketoconazole 2% topical cream 1 application, Topically, Daily, # 30 Gm, 11 Refills, Maintenance, 12/02/21 16:56:00 EDT, [facility] [id number], 1 application Topically Daily, 170, cm, 10/10/21 13:45:00 EST, Height, 110, kg, 09/29/21 21:14:00 EST, Dry Weight Start Date: 12/02/21 Status: Ordered Lidoderm 5% film 1 patch, Topically, Daily, # 30 patch, 11 Refills, Maintenance, 03/19/22 21:12:00 EDT, [facility] [id number], Partial fill upon patient request if the [...] Maintenance, 11/11/21 17:22:00 EST, Tablet, [facility] [id number], 170, cm, 10/10/21 13:45... Start Date: 11/11/21 Stop Date: 12/11/21 Status: Ordered multivitamin with minerals Calcium and Magnesium oral tablet 1 tablet, By Mouth, Daily, # 30 tablet, 11 Refills, Maintenance, 12/15/21 6:32:00 EDT, Tablet, [facility] [id number], 1 tablet By Mouth Daily, 173, cm, 12/05/21 17:38:00 EDT,Height, 127, kg, 12/05/21 17:38:00 EDT, Dry Weight Start Date: 12/15/21 Status: Ordered Narcan 4 mg/0.1 mL nasal spray See Instructions, 4 mg Once may repeat every 2 to 3 minutes until patient responds, # 2 each, 3 Refills, Soft Stop, 03/05/22 10:07:00 EDT, [facility] [id number], 173, cm, 12/05/21 17:38:00 EDT, Height, 127, kg, 12/05/21 17:38... Start Date: 03/05/22 Status: Ordered Nicotine 2 mg gum 1 each = 2 mg, Chew, Every 2 hours, PRN as needed for smoking cessation, for 4 week(s), # 160 each,11 Refills, Acute 09/11/22 12:53:00 EST, 10/10/21 12:53:00 EST, Gum, [facility] [place] [id number], Partial fill upon patient request... Start Date: 10/10/21 Stop Date: 09/11/22 Status: Ordered ondansetron 4 mg oral tablet, disintegrating 1 tablet = 4 mg, By Mouth, Every 8 hours, PRN as needed for nausea/vomiting, # 12 tablet, 11 Refills, Maintenance, 08/21/21 13:33:00 EST, DIS Tablet, [facility] [id number], Partial fill upon patient request if the [...] 12/02/21 16:55:00 EDT, REC Powder, [facility] [id number], 17 Gm By Mouth 2 times a day,x30 days,PRN:Constip... Start Date: 12/02/21 Stop Date: 04/01/22 Status: Ordered rOPINIRole 0.5 mg oral tablet 1 tablet = 0.5 mg, By Mouth, Daily at bedtime, 1 to 3 hours before bedtime, # 30 tablet, 11 Refills, Maintenance, 08/21/21 13:32:00 EST, Tablet, [facility] [id number], Partial fill upon patient request if the prescription is f... Start Date: 08/21/21 Status: Ordered Senna 8.6 mg oral tablet 1 or 2 tablets, By Mouth, Daily at bedtime, PRN, # 60 tablet, Refills 5, Tot. Refills 5, Maintenance, Constipation, 10/10/21 14:43:00 EST, Route to Pharmacy Electronically, [facility] [id number] Tablet, Partial fill upon patie... Start Date: 10/10/21 Status: Ordered sildenafil 100 mg oral tablet 1 tablet = 100 mg, By Mouth, Daily, 1 hour before sexual activity, # 20 tablet, 11 Refills, Maintenance, 03/07/21 6:49:00 EDT, Tablet, [facility] [id number], Partial fill upon patient request if the prescription is for a sched... Start Date: 03/07/21 Status: Ordered varenicline 1mg tablet 1 tablet = 1 mg, By Mouth, Daily, 0.5 tab daily x 3 days then 0.5 tab BID x 3 days then 1 tab BID, # 30 tablet, 4 Refills, Maintenance, 04/01/22 16:45:00 EDT, Tablet, [facility] [id number], Partial fill upon patient request if... 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(Confirmed) Active Diastolic dysfunction(Confirmed) 1 09/27/21 [...]
--- OUTSIDE RECORDS SUMMARY | 2023-07-12 20:14 | XMS_ITS | Continuity of Care Document ---
Author Name Unknown Organization [facility] Address [address] [place] [id number]- Care Team Providers Care Pug Machine Operator Name Role Phone Conner QUEEN, Namrata Agarwal Primary Care Physician Encounter [facility] Date(s): 09/25/22 - 10/25/22 [facility] [address] [place] [id number]- Allergies, Adverse Reactions, Alerts Substance Reaction Severity Status Latex rash Active Suboxone migraine (PO), fevers (IM) A ctive shellfish Active Bee Stings Active Immunizations Given and Recorded [...] 8:46:00 EST, Powder, Route to Pharmacy Electronically, [id number], [facility] - Spr... Start Date: 07/20/22 Stop Date: 07/15/23 Status: Ordered Albuterol (Eqv-ProAir HFA) 90 mcg/inh inhalation aerosol 2 puffs, Inhalation, Every 6 hours, # 8.5 Gm, 11 Refills, 08/25/21 12:34:00 EST, [facility] [id number], 25, 2 puffs Inhalation Every 6 hours, 173, cm, 08/25/21 12:31:00 EST, Height, 84, kg, 04/19/21 2:36:00 EDT, Dry Weight Start Date: 08/25/21 Status: Ordered amLODIPine 10 mg oral tablet 10 mg, 1, tablet, By Mouth, Daily, # 30 tablet, Refills 11, Tot. Refills 11, Maintenance, 07/20/22 8:43:00 EST, Route to Pharmacy Electronically, [facility] [id number], 173, cm, 05/10/22 20:46:00 EDT, Height, 95.5, kg, ... Start Date: 07/20/22 Status: Ordered Asperflex 4% topical film 1 patch, Topically, Daily, for 30 days, # 30 patch, 11 Refills, Acute 03/12/23 14:41:00 EDT, 03/17/22 14:41:00 EDT, [facility] [id number], Partial fill upon patient request if the prescription is for a schedule II opioid drug.... Start Date: 03/17/22 Stop Date: 03/12/23 Status: Ordered aspirin 81 mg oral tablet, chewable 81 mg, 1, tablet, By Mouth, Daily, # 30 tablet, Refills 11, Tot. Refills 11, Maintenance, 07/20/22 8:43:00 EST, Route to Pharmacy Electronically, [facility] [id number], Partial fill upon patient request if the prescription is... Start Date: 07/20/22 Stop Date: 11/12/23 Status: Ordered atorvastatin 80 mg oral tablet 1 tablet = 80 mg, By Mouth, Daily, # 30 tablet, 11 Refills, Maintenance, 07/20/22 8:43:00 EST, Tablet, [facility] [id number], Partial fill upon patient request if the prescription is for a schedule II opioid drug., 173, cm, 09... Start Date: 07/20/22 Status: Ordered Biktarvy oral tablet 1 tablet, By Mouth, Daily, # 30 tablet, 5 Refills, Maintenance, 07/20/22 8:36:00 EST, [facility], [facility] [id number], 30, 1 tablet By Mouth Daily, 173, [...] EDT, [facility] [id number], Partial fill upon patient request if the [...] EDT, [facility] [id number], use sparingly on face, use on all other affected areas, 174, cm, 01/13/21... Start Date: 03/07/21 Status: Ordered Incruse Ellipta 62.5 mcg/inh inhalation powder See Instructions, INHALE 1 PUFF BY MOUTH INTO THE lungs EVERY 24 HOURS. doses should be taken AT least 24 HOURS APART, # 30 Unknown, 5 Refills, Maintenance, 09/02/22 20:23:00 EST, [facility], 173, cm, 08/12/22 0:40:00 EST, Height, 93.18, kg, 12/0... Start Date: 09/02/22 Status: Ordered ketoconazole 2% topical cream 1 application, Topically, Daily, # 30 Gm, 11 Refills, Maintenance, 04/20/22 9:23:00 EDT, [facility], [facility] [id number], 1 application Topically Daily, 173, cm, 12/05/21 17:38:00 EDT,Height, 127, kg, 12/05/21 17:38:00 EDT, Dry Weight Start Date: 04/20/22 Status: Ordered Lidoderm 5% film 1 patch, Topically, Daily, # 30 patch, 11 Refills, Maintenance, 03/19/22 21:12:00 EDT, [facility] [place] - [id number], Partial fill upon patient request if the [...] Refills, Maintenance, 07/20/22 8:43:00 EST, Tablet, [facility] - [id number], 1 tablet By Mouth Daily, 173, cm, 05/10/22 20:46:00 EDT,Height, 95.5, kg, 05/10/22 20:46:00 EDT, Dry Weight Start Date: 07/20/22 Status: Ordered Narcan 4 mg/0.1 mL nasal spray See Instructions, 4 mg Once may repeat every 2 to 3 minutes until patient responds, # 2 each, 3 Refills, Soft Stop, 03/05/22 10:07:00 EDT, [facility] [id number], 173, cm, 12/05/21 17:38:00 EDT, Height, 127, kg, 12/05/21 17:38... Start Date: 03/05/22 Status: Ordered ondansetron 4 mg oral tablet, disintegrating 1 tablet = 4 mg, By Mouth, Every 8 hours, PRN as needed for nausea/vomiting, # 12 tablet, 11 Refills, Maintenance, 08/21/21 13:33:00 EST, DIS Tablet, [facility] [id number], Partial fill upon patient request if the [...] Powder, [facility] [id number], 17 Gm By Mouth 2 times a day,x30 days,PRN:Constip... Start Date: 12/02/21 Stop Date: 04/01/22 Status: Ordered rOPINIRole 0.5 mg oral tablet 1 tablet = 0.5 mg, By Mouth, Daily at bedtime, 1 to 3 hours before bedtime, # 30 tablet, 11 Refills, Maintenance, 07/20/22 8:43:00 EST, Tablet, [facility] [id number], Partialfill upon patient request if the prescription is fo... Start Date: 07/20/22 Status: Ordered sildenafil 100 mg oral tablet 1 tablet = 100 mg, By Mouth, Daily, 1 hour before sexual activity, # 20 tablet, 11 Refills, Maintenance, 04/20/22 9:24:00 EDT, Tablet, [facility] - [id number], disreguard last script for 0.5 tab, 173, cm, 12/05/21 17:38:00 EDT,... Start Date: 04/20/22 Status: Ordered varenicline 1mg tablet 1 tablet = 1 mg, By Mouth, Daily, 0.5 tab daily x 3 days then 0.5 tab BID x 3 days then 1 tab BID, # 30 tablet, 4 Refills, Maintenance, 09/04/22 15:20:00 EST, Tablet, [facility] - [id number], Partial fill upon patient request if... Start Date: 09/04/22 Status: Ordered Ventolin HFA 108 mcg/inh inhalation aerosol with adapter 2 puffs, Inhalation, 4 times a day, PRN for wheezing, # 1 each, 11 Refills, Maintenance, 07/20/22 8:44:00 EST, Aerosol, [facility] - [id number], Partial fill upon patient request if the [...] Refills, Maintenance, 06/04/22 17:32:00 EDT, Capsule, [facility], [place] - [id number], D/c vitamin high dosed, 173, cm, 05/10/22 [...] - 01/2019 Confirmed Active Depression - [facility]inda [facility] Confirmed Active [...] Team Personnel Name: Jadiel Watson RN Position: [facility] ED RN W/OE and Tasks Member Role: Primary Care Nurse Name: Dede Mccloud RN Position: [facility] RN Member Role: Primary Care Nurse Name: Judy Gonzales RN Position: [facility] RN Member Role: Primary Care Nurse Name: Enma Manriquez RN Position: [facility] RN Member Role: Primary Care Nurse Name: Zuhair Lopez RN Position: [facility] RN Member Role: Primary Care Nurse Name: Cathryn Allen RN Position: [facility] RN Member Role: Primary Care Nurse Name: Edie Bob RN Position: [facility] RN Member Role: Primary Care Nurse Name: Lisbet Gardiner RN Position: [facility] RN Member Role: Primary Care Nurse Name: Namrata Prieto MD Position: [facility] Primary Care Physician Member Role: PCP Address: Address: [address] [place] [address], -[facility] [place] [address]- Name: Carolina Valero RN Position: [facility] RN Member Role: Primary Care Nurse Name: Nishi San RN Position: [facility] RN Member Role: Primary Care Nurse Name: Micky Boyd RN Position: [facility] RN Member Role: Primary Care Nurse Name: Lauryn WELLS, Lauri Choi Position: Reference Physician Member Role: Primary Care Nurse Address: Address: [address] [place] [address] [address] Clinical [facility] [place] [address]- [place] Care Team Related Persons Name: LUIS SAN Address: [place] [address] Name: BROOKE OWEN Address: home [address] [address] Name: KARYN OWEN Address: home [address] [place] [address] Name: DOMINGO LEONE Address: home [address] [place] [address]
--- OUTSIDE RECORDS SUMMARY | 2023-07-12 20:14 | XMS_ITS | Continuity of Care Document ---
Author Name Unknown Organization [facility] Address [address] [place] [address]- Care Team Providers Care Windows Security Analyst Name Role Phone Conner QUEEN, Namrata Agarwal Primary Care Physician [place] [facility] [place]07[place] - 11/06/[address] [facility] [address] [place] [id number] Allergies, Adverse Reactions, Alerts Substance [...] 10/28/20 9:30:00 EST, Route to Pharmacy Electronically, [facility] [id number], 173, cm, 07/17/20 19:29:00 EST, Height, 83.9, kg, 07/17/20... Start Date: 10/28/20 Status: Ordered atovaquone 750 mg/5 mL oral suspension 10 mL = 1,500 mg, By Mouth, Daily, for 60 days, # 600 mL, 11 Refills, Acute 05/18/22 16:35:00 EDT, 05/28/20 16:35:00 EDT, Suspension, [place], [place] - [id number], Pls cancel bactrim prescription. Atovaquone to replace bactrim, 171,... Start Date: 05/28/20 Stop Date: 05/18/22 Status: Ordered azithromycin 500 mg oral tablet 2 tablet = 1,000 mg, By Mouth, Once, take both tablets at once, # 2 tablet, 0 Refills, Soft Stop, 06/27/20 17:56:00 EDT, Tablet, [facility] [id number], 171, cm, 05/28/20 16:01:00 EDT, Height, 59.5, kg, 12/29/19 15:28:00 EDT, D... Start Date: 06/27/20 Status: Ordered Biktarvy oral tablet 1 tablet, By Mouth, Daily, for 30 days, # 30 tablet, 11 Refills, Hard Stop 05/23/21 16:35:00 EDT, 05/28/20 16:35:00 EDT, Tablet, [facility] [id number], 1 tablet By Mouth Daily,x30 days, 171, cm, 05/28/20 16:01:00 EDT, Height,... Start Date: 05/28/20 Stop Date: 05/23/21 Status: Ordered Colace sodium 100 mg oral capsule 100 mg, 1, capsule, By Mouth, 2 times a day, PRN, # 60 capsule, Refills 11, Tot. Refills 11, Maintenance, for constipation, 05/28/20 16:34:00 EDT, Route to Pharmacy Electronically, [place], [place] - [id number], 171, cm, 05/28/20 16:0... Start Date: 05/28/20 [...] 06/28/20 13:01:00 EDT, Route to Pharmacy Electronically, [facility] [id number], 171, cm, 05/28/20 16:01:00 EDT, Height, 59.5... Start Date: 06/28/20 Status: Ordered hydrocortisone 0.5% topical cream See Instructions, use sparingly on face, use on all other affected areas, # 28 Gm, 11 Refills, Maintenance, 05/28/20 16:37:00 EDT, [facility] [id number], use sparingly on face, use on all other affected areas, 171, cm, ... Start Date: 05/28/20 Status: Ordered influenza virus vaccine, inactivated adjuvanted preservative-free quadrivalent intramuscular susp See Instructions, none, # 1 each, 0 Refills, Maintenance, 05/30/20 9:27:00 EDT, [facility], none, 171, cm, 05/28/20 16:01:00 EDT, Height, 59.5, kg, 12/29/19 15:28:00 EDT, Dry Weight Start Date: 05/30/20 Status: Ordered ketoconazole 2% topical cream 1 application, Topically, 2 times a day, for 28 days, use on the face, # 60 Gm, 11 Refills, Acute 04/29/21 16:40:00 EDT, 05/28/20 16:40:00 EDT, Cream, [facility] [id number], 1 application Topically 2 times a day,x28 days,Instr... Start Date: 05/28/20 Stop Date: 04/29/21 Status: Ordered ketoconazole 2% topical shampoo 1 application, Topically, Daily, try daily for 5 days as a shampoo, # 120 mL, 11 Refills, Soft Stop, 05/28/20 16:37:00 EDT, Shampoo, [facility] [id number], 1 application Topically Daily,Instr:try daily for 5 days as a shampoo,... Start Date: 05/28/20 Status: Ordered lithium 300 mg oral capsule 2 capsule = 600 mg, By Mouth, 2 times a day, # 120 capsule, 2 Refills, Maintenance, 06/28/20 12:56:00 EDT, [facility], [facility] [id number], Increase in dose per Psychiatry, 171, cm, 05/28/20 16:01:00 EDT, Height, 59.5, kg, 12/29/19 15:2... Start Date: 06/28/20 Status: Ordered LORazepam 0.5 mg oral tablet 1 tablet = 0.5 mg, By Mouth, 2 times a day, PRN Anxiety, # 60 tablet, 2 Refills, Maintenance, 06/28/20 12:56:00 EDT, Tablet, [facility], [facility] [id number], 171, cm, 05/28/20 16:01:00EDT, Height, 59.5, kg, 12/29/19 15:28:00 EDT, Dry W... Start Date: 06/28/20 Status: Ordered Mavyret 100 mg-40 mg oral tablet 3 tablet, By Mouth, Daily, with food, # 252 tablet, 0 Refills, Maintenance, 07/08/20 15:34:00 EST, Tablet, [facility], 3 tablet By Mouth Daily,x12 [...] 5 Refills, Maintenance, 05/28/20 16:35:00 EDT, Tablet, [facility], [facility] [id number], 171, cm, 05/28/20 16:01:00 EDT, Height, 59.5, kg, 12/29/19 15:28:00 EDT, Dry Weight Start Date: 05/28/20 Stop Date: 11/24/20 Status: Ordered multivitamin with minerals Calcium and Magnesium oral tablet 1 tablet, By Mouth, Daily, # 30 tablet, 11 Refills, Maintenance, 05/28/20 16:35:00 EDT, Tablet, [facility] [id number], 1 tablet By Mouth Daily, 171, cm, 05/28/20 16:01:00 EDT, Height, 59.5, kg, 12/29/19 15:28:00 EDT, Dry Weight Start Date: 05/28/20 Stop Date: 05/23/21 Status: Ordered Narcan 4 mg/0.1 mL nasal spray See Instructions, 4 mg Once may repeat every 2 to 3 minutes until patient responds, # 2 each, 1 Refills, Soft Stop, 08/24/19 9:41:00 EST, [place], [place] -, 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 Start Date: 08/24/19 Status: Ordered Nicotine 2 mg gum 1 each = 2 mg, Chew, Every 2 hours, PRN as needed for smoking cessation, # 160 each, 3 Refills, Maintenance, 05/28/20 16:51:00 EDT, Gum, [place], [place] - [id number], 171, cm, 05/28/20 16:01:00 EDT, Height, 59.5, [...] Refills, Soft Stop, 05/30/20 9:25:00 EDT, Suspension, [facility], 0.5 mL Intramuscular Once, 171, cm, 05/28/20 16:01:00 EDT, Height, 59.5, kg,12/29/19 15:28:00 EDT, Dry Weight Start Date: 05/30/20 Status: Ordered polyethylene glycol 3350 oral powder for reconstitution = 17 Gm, By Mouth, 2 times a day, PRN Constipation, dissolve in water before taking, # 527 Gm, 3 Refills, Maintenance, 11/28/19 9:42:00 EDT, REC Powder, [place], [place] -, 17 Gm By Mouth 2 times a day,x30 days,PRN:Constipation,Instr:... Start Date: 11/28/19 Stop Date: 03/27/20 Status: Ordered SEROquel 25 mg oral tablet 25 mg, 1, tablet, By Mouth, Daily at bedtime, # 30 tablet, Refills 2, Tot. Refills 2, Maintenance, 06/14/20 20:44:00 EDT, Route to Pharmacy Electronically, [facility], 171, cm, 05/28/20 16:01:00 EDT, Height, 59.5, kg, 12/29/19 15:28:00... Start Date: 06/14/20 Stop Date: 09/12/20 Status: Ordered sildenafil 100 mg oral tablet 1 tablet = 100 mg, By Mouth, Daily, 1 hour before sexual activity, # 10 tablet, 5 Refills, Maintenance, 09/04/20 14:26:00 EST, Tablet, [place], [place] - [id number], Partial fill upon patient request if the prescription is for a sched... 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 Sex
--- NOTE | 2023-07-12 20:15 | PC.NURSE ---
pt very anxious, pacing, wanting to leave
--- OUTSIDE RECORDS SUMMARY | 2023-07-12 20:15 | XMS_ITS | Continuity of Care Document ---
Author Name Unknown Organization [facility] Address [address] [place] [address]- Care Team Providers Care Power Saw Mechanic Name Role Phone Namrata Prieto MD Primary Care Physician [place] [facility] [place] - 05/14/21 [facility] [address] [place], [place] [address] Attending Physician: Namrata Prieto MD Admitting Physician: Namrata Prieto MD Allergies, Adverse Reactions, Alerts Substance Reaction Severity Status shellfish Active Latex rash Active Suboxone migraine (PO), fevers (IM) A ctive Immunizations Given and Recorded Vaccine Date Status Refusal Reason SARS-CoV-2 (COVID-19) mRNA-3120 vaccine 04/21/21 G iven influenza virus vaccine, inactivated 07/02/20 Give n influenza virus vaccine, inactivated 06/08/19 Give n Medications amLODIPine 10 mg oral tablet 10 mg, 1, tablet, By Mouth, Daily, # 30 tablet, Refills 5, Tot. Refills 5, Maintenance, 03/07/21 6:50:00 EDT, Route to Pharmacy Electronically, [place], [place] - [id number], 174, cm, 01/13/21 8:20:00 EDT, Height, 93, kg, 01/08/21 18:... Start Date: 03/07/21 Status: Ordered atovaquone 750 mg/5 mL oral suspension 10 mL = 1,500 mg, By Mouth, Daily, for 60 days, # 600 mL, 11 Refills, Acute 02/25/23 6:50:00 EDT, 03/07/21 6:50:00 EDT, Suspension, [facility] [id number], Pls cancel bactrim prescription. Atovaquone to replace bactrim, 174, cm... Start Date: 03/07/21 Stop Date: 02/25/23 Status: Ordered Biktarvy oral tablet 1 tablet, By Mouth, Daily, for 30 days, # 30 tablet, 11 Refills, Hard Stop 05/23/21 16:35:00 EDT, 05/28/20 16:35:00 EDT, Tablet, [facility] [id number], 1 tablet By Mouth Daily,x30 days, 171, cm, 05/28/20 16:01:00 EDT, Height,... Start Date: 05/28/20 Stop Date: 05/23/21 Status: Ordered Colace sodium 100 mg oral capsule 100 mg, 1, capsule, By Mouth, 2 times a day, PRN, # 60 capsule, Refills 11, Tot. Refills 11, Maintenance, for constipation, 05/28/20 16:34:00 EDT, Route to Pharmacy Electronically, [facility] [id number], 171, cm, 05/28/20 16:0... Start Date: 05/28/20 Status: Ordered hydrocortisone 0.5% topical cream See Instructions, use sparingly on face, use on all other affected areas, # 28 Gm, 11 Refills, Maintenance, 03/07/21 6:50:00 EDT, [facility] [id number], use sparingly on face, use on all other affected areas, 174, cm, 01/13/21... Start Date: 03/07/21 Status: Ordered ketoconazole 2% topical shampoo 1 application, Topically, Daily, try daily for 5 days as a shampoo, # 120 mL, 11 Refills, Soft Stop, 03/07/21 6:51:00 EDT, Shampoo, [facility] [id number], 1 application Topically Daily,Instr:try daily for 5 [...] 0 Refills, Maintenance, 07/08/20 15:34:00 EST, Tablet, [facility], 3 tablet By Mouth Daily,x12 [...] 11 Refills, Maintenance, 03/07/21 6:51:00 EDT, Tablet, [place], [place] - [id number], 1 tablet By Mouth Daily, 174, cm, 01/13/21 8:20:00 EDT, Height, 93, kg, 01/08/21 18:17:00 EDT, Dry Weight Start Date: 03/07/21 Status: Ordered Narcan 4 mg/0.1 mL nasal spray See Instructions, 4 mg Once may repeat every 2 to 3 minutes until patient responds, # 2 each, 1 Refills, Soft Stop, 08/24/19 9:41:00 EST, [place], [place] -, MAMADOU García 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 Start Date: 08/24/19 Status: Ordered ondansetron 4 mg oral tablet, disintegrating 1 tablet = 4 mg, By Mouth, Every 8 hours, PRN as needed for nausea/vomiting, # 12 tablet, 0 Refills, Maintenance, 12/08/20 19:19:00 EDT, DIS Tablet, [place], [place] - [id number], Partial fill upon patient request if the [...] Refills, Maintenance, 11/28/19 9:42:00 EDT, REC Powder, [place], [place] -, 17 Gm By Mouth 2 times a day,x30 days,PRN:Constipation,Instr:... Start Date: 11/28/19 Stop Date: 03/27/20 Status: Ordered sildenafil 100 mg oral tablet 1 tablet = 100 mg, By Mouth, Daily, 1 hour before sexual activity, # 20 tablet, 11 Refills, Maintenance, 03/07/21 6:49:00 EDT, Tablet, [place], [place] - [id number], Partial fill upon patient request if the prescription is for a sched... 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
--- OUTSIDE RECORDS SUMMARY | 2023-07-12 20:15 | XMS_ITS | Continuity of Care Document ---
Author Name Unknown Organization [facility] Address [address] [place] [address]- Care Team Providers Care Health/Safety Job Titles Name Role Phone Conner QUEEN, Namrata gAarwal Primary Care Physician [facility] Date[facility]): 11/10/21 - 12/10/21 [facility] [address] [place] [id number]- Encounter Diagnosis Erectile dysfunction(Discharge Diagnosis) - 05/29/20 Depression - [facility](Discharge Diagnosis) - 05/29/20 Attending Physician: [...] 13:14:00 EST, Powder, Route to Pharmacy Electronically, [id number], [facility]... Start Date: 08/21/21 Stop Date: 01/18/22 Status: Ordered Albuterol (Eqv-ProAir HFA) 90 mcg/inh inhalation aerosol 2 puffs, Inhalation, Every 6 hours, # 8.5 Gm, 11 Refills, 08/25/21 12:34:00 EST, [facility] [id number], 25, 2 puffs Inhalation Every 6 hours, 173, cm, 08/25/21 12:31:00 EST, Height, 84, kg, 04/19/21 2:36:00 EDT, Dry Weight Start Date: 08/25/21 Status: Ordered amLODIPine 10 mg oral tablet 10 mg, 1, tablet, By Mouth, Daily, # 30 tablet, Refills 11, Tot. Refills 11, Maintenance, 08/27/21 16:46:00 EST, Route to Pharmacy Electronically, [facility] [id number], 173,cm, 08/25/21 12:31:00 EST, Height, 84, kg, 04/19/21... Start Date: 08/27/21 Status: Ordered aspirin 81 mg oral tablet, chewable 81 mg, 1, tablet, By Mouth, Daily, # 120 tablet, Refills 3, Tot. Refills 3, Maintenance, 10/02/21 11:47:00 EST, Route to Pharmacy Electronically, [facility] [id number], Partial fill upon patient request if the prescription is... Start Date: 10/02/21 Stop Date: 01/25/23 Status: Ordered atorvastatin 80 mg oral tablet 1 tablet = 80 mg, By Mouth, Daily, # 30 tablet, 11 Refills, Maintenance, 11/07/21 14:34:00 EST, Tablet, [facility] [id number], Partial fill upon patient request if the prescription is for a schedule II opioid drug., 170, cm, 0... Start Date: 11/07/21 Status: Ordered atovaquone 750 mg/5 mL oral suspension 10 mL = 1,500 mg, By Mouth, Daily, for 60 days, # 600 mL, 11 Refills, Acute 10/28/23 14:35:00 EST, 11/07/21 14:35:00 EST, Suspension, [facility] [id number], Pls cancel bactrim prescription. Atovaquone to replace bactrim, 170,... Start Date: 11/07/21 Stop Date: 10/28/23 Status: Ordered Biktarvy oral tablet 1 tablet, By Mouth, Daily, # 30 tablet, 11 Refills, [facility], 30, TAKE ONE TABLET BY [...] 12/02/21 16:54:00 EDT, Route to Pharmacy Electronically, [place], [place] - [id number], Partial fill upon pilar... Start Date: 12/02/21 [...] FOR CONSTIPATION, # 60 each, 2 Refills, [facility], 170, cm, 10/10/21 13:45:00 EST, Height, 110, kg, 09/29/21 21:14:00 EST, Dry Weight Start Date: 12/01/21 Status: Ordered hydrocortisone 0.5% topical cream See Instructions, use sparingly on face, use on all other affected areas, # 28 Gm, 11 Refills, Maintenance, 03/07/21 6:50:00 EDT, [facility] [id number], use sparingly on face, use on all other affected areas, 174, cm, 01/13/21... Start Date: 03/07/21 Status: Ordered Incruse Ellipta 62.5 mcg/inh inhalation powder 1 puffs, Inhalation, Every 24 hours, doses should be taken AT least 24 HOURS APART, # 30 Unknown, 11 Refills, 08/25/21 12:34:00 EST, [facility] [id number], 173, cm, 08/25/21 12:31:00 EST, Height, 84, kg, 04/19/21 2:36:00 EDT,... Start Date: 08/25/21 Status: Ordered ketoconazole 2% topical cream 1 application, Topically, Daily, # 30 Gm, 11 Refills, Maintenance, 12/02/21 16:56:00 EDT, [facility] [id number], 1 application Topically Daily, 170, cm, 10/10/21 [...] Maintenance, 11/11/21 17:22:00 EST, Tablet, [facility] [id number], 170, cm, 10/10/21 13:45... Start Date: 11/11/21 Stop Date: 12/11/21 Status: Ordered multivitamin with minerals Calcium and Magnesium oral tablet 1 tablet, By Mouth, Daily, # 30 tablet, 11 Refills, Maintenance, 03/07/21 6:51:00 EDT, Tablet, [facility] [id number], 1 tablet By Mouth Daily, 174, cm, 01/13/21 8:20:00 EDT, Height, 93, kg, 01/08/21 18:17:00 EDT, Dry Weight Start Date: 03/07/21 Status: Ordered Narcan 4 mg/0.1 mL nasal spray See Instructions, 4 mg Once may repeat every 2 to 3 minutes until patient responds, # 2 each, 1 Refills, Soft Stop, 08/24/19 9:41:00 EST, [place], [place] -, MAMADOU García to cook 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 Start Date: 08/24/19 Status: Ordered Nicotine 2 mg gum 1 each = 2 mg, Chew, Every 2 hours, PRN as needed for smoking cessation, for 4 week(s), # 160 each,11 Refills, Acute 09/11/22 12:53:00 EST, 10/10/21 12:53:00 EST, Gum, [facility] [id number], Partial fill upon patient request... Start Date: [...] 08/21/21 13:33:00 EST, DIS Tablet, [facility] [id number], Partial fill upon patient request if the [...] EST, Route to Pharmacy Electronically, [facility] [id number], Partial fill upon patient request if the prescription is f... Start Date: 10/02/21 Stop Date: 12/31/21 Status: Ordered polyethylene glycol 3350 oral powder for reconstitution See Instructions, DISSOLVE 17grams powder IN WATER BEFORE drinking 2 (two) times a day NEEDED FOR CONSTIPATION, # 510 Gm, 11 Refills, [facility], 30, DISSOLVE 17grams powder IN WATER BEFORE drinking 2 (two) times a day NEEDED FOR CONSTIPATI... Start Date: 09/03/21 Status: Ordered polyethylene glycol 3350 oral powder for reconstitution = 17 Gm, By Mouth, 2 times a day, PRN Constipation, dissolve in water before taking, # 527 Gm, 3 Refills, Maintenance, 12/02/21 16:55:00 EDT, REC Powder, [facility], [place] - [id number], 17 Gm By Mouth 2 times a day,x30 days,PRN:Constip... Start Date: 12/02/21 Stop Date: 04/01/22 Status: Ordered rOPINIRole 0.5 mg oral tablet 1 tablet = 0.5 mg, By Mouth, Daily at bedtime, 1 to 3 hours before bedtime, # 30 tablet, 11 Refills, Maintenance, 08/21/21 13:32:00 EST, Tablet, [facility], [place] - [id number], Partial fill upon patient request if the prescription is f... Start Date: 08/21/21 Status: Ordered Senna 8.6 mg oral tablet 1 or 2 tablets, By Mouth, Daily at bedtime, PRN, # 60 tablet, Refills 5, Tot. Refills 5, Maintenance, Constipation, 10/10/21 14:43:00 EST, Route to Pharmacy Electronically, [place], [place] - [id number] Tablet, Partial fill upon patie... Start Date: 10/10/21 Status: Ordered sildenafil 100 mg oral tablet 1 tablet = 100 mg, By Mouth, Daily, 1 hour before sexual activity, # 20 tablet, 11 Refills, Maintenance, 03/07/21 6:49:00 EDT, Tablet, [facility], [place] - [id number], Partial fill upon patient request if the prescription is for a sched... Start Date: 03/07/21 Status: Ordered varenicline 1mg tablet 1 tablet = 1 mg, By Mouth, Daily, 0.5 tab daily x 3 days then 0.5 tab BID x 3 days then 1 tab BID, # 30 tablet, 4 Refills, Maintenance, 11/13/21 15:15:00 EST, Tablet, [facility], [place] - [id number], Partial fill upon patient request if... 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
--- OUTSIDE RECORDS SUMMARY | 2023-07-12 20:15 | XMS_ITS | Continuity of Care Document ---
Author Name Unknown Organization [facility] Address [address] [place] [address]- Care Team Providers Care Research Laboratory Technician Name Role Phone Conner QUEEN, Namrata Agarwal Primary Care Physician [phone] Encounter [facility] Date(s): 12/15/22 - 01/14/23 [facility] [address] [place] [id number] Allergies, Adverse Reactions, Alerts Substance Reaction Severity Status shellfish Active Suboxone migraine (PO), fevers (IM) A ctive Bee Stings Active Latex rash Active Immunizations [...] 8:46:00 EST, Powder, Route to Pharmacy Electronically, [id number], [facility] - Spr... Start Date: 07/20/22 Stop Date: 07/15/23 Status: Ordered amLODIPine 10 mg oral tablet 10 mg, 1, tablet, By Mouth, Daily, # 30 tablet, Refills 11, Tot. Refills 11, Maintenance, 07/20/22 8:43:00 EST, Route to Pharmacy Electronically, [facility] [id number], 173, cm, 05/10/22 20:46:00 EDT, Height, 95.5, kg, 2... Start Date: 07/20/22 Status: Ordered aspirin 81 mg oral tablet, chewable 81 mg, 1, tablet, By Mouth, Daily, # 30 tablet, Refills 11, Tot. Refills 11, Maintenance, 07/20/22 8:43:00 EST, Route to Pharmacy Electronically, [facility] [id number], Partial fill upon patient request if the prescription is... Start Date: 07/20/22 Stop Date: 11/12/23 Status: Ordered atorvastatin 80 mg oral tablet 1 tablet = 80 mg, By Mouth, Daily, # 30 tablet, 11 Refills, Maintenance, 07/20/22 8:43:00 EST, Tablet, [facility] [id number], Partial fill upon patient request if the prescription is for a schedule II opioid drug., 173, cm, 09... Start Date: 07/20/22 Status: Ordered Biktarvy oral tablet 1 tablet, By Mouth, Daily, must get appt and labs for refills, # 30 tablet, 0 Refills, Maintenance,12/16/22 19:18:00 EDT, [facility] [id number], 30, 1 tablet By Mouth Daily,Instr:must get [...] 12/24/22 19:14:00 EDT, Route to Pharmacy Electronically, [facility]... Start Date: 12/24/22 Status: Ordered Crutches See [...] 1 Refills, Soft Stop, 03/05/22 10:37:00 EDT, [facility] [place], [place] - [id number], Partial fill upon patient request if the prescriptio... Start Date: 03/05/22 Status: Ordered fluticasone-salmeterol 250 mcg-50 mcg inhalation powder 1, puffs, Inhalation, 2 times a day, patient needs labs and appt before more refills, # 60 each, Refills 0, Tot. Refills 0, Maintenance, 12/16/22 19:27:00 EDT, Powder, Route to Pharmacy Electronically, [id number], [facility]... Start Date: 12/16/22 Status: Ordered [...] Gm, 11 Refills, Maintenance, 04/20/22 9:23:00 EDT, [facility] [id number], 1 application Topically Daily, 173, cm, 12/05/21 17:38:00 EDT,Height, 127, kg, 12/05/21 17:38:00 EDT, Dry Weight Start Date: 04/20/22 Status: Ordered Lidoderm 5% film 1 patch, Topically, Daily, # 30 patch, 11 Refills, Maintenance, 03/19/22 21:12:00 EDT, [facility] [id number], Partial fill upon patient request if the [...] 11 Refills, Maintenance, 07/20/22 8:43:00 EST, Tablet, [place], [place] - [id number], 1 tablet By Mouth Daily, 173, cm, 05/10/22 20:46:00 EDT,Height, 95.5, kg, 05/10/22 20:46:00 EDT, Dry Weight Start Date: 07/20/22 Status: Ordered Narcan 4 mg/0.1 mL nasal spray See Instructions, 4 mg Once may repeat every 2 to 3 minutes until patient responds, # 2 each, 3 Refills, Soft Stop, 03/05/22 10:07:00 EDT, [facility] [id number], 173, cm, 12/05/21 17:38:00 EDT, Height, 127, [...] [facility] [id number], Partial fill upon pa... Start Date: 12/24/22 Status: Ordered polyethylene glycol 3350 oral powder for reconstitution = 17 Gm, By Mouth, 2 times a day, PRN Constipation, dissolve in water before taking, # 527 Gm, 3 Refills, Maintenance, 12/02/21 16:55:00 EDT, REC Powder, [facility] [id number], 17 Gm By Mouth 2 times a day,x30 days,PRN:Constip... Start Date: 12/02/21 Stop Date: 04/01/22 Status: Ordered rOPINIRole 0.5 mg oral tablet 1 tablet = 0.5 mg, By Mouth, Daily at bedtime, 1 to 3 hours before bedtime, # 30 tablet, 11 Refills, Maintenance, 07/20/22 8:43:00 EST, Tablet, [facility] [id number], Partialfill upon patient request if the prescription is fo... Start Date: 07/20/22 Status: Ordered Senna 8.6 mg oral tablet 1 or 2 tablets, By Mouth, Daily at bedtime, PRN, Must make appt and get labs for refills, # 180 tablet, Refills 0, Tot. Refills 0, Maintenance, Constipation, 12/16/22 19:14:00 EDT, Route to Pharmacy Electronically, [place], [place] -... Start Date: 12/16/22 Status: Ordered sildenafil 100 mg oral tablet 1 tablet = 100 mg, By Mouth, Daily, 1 hour before sexual activity, # 20 tablet, 11 Refills, Maintenance, 04/20/22 9:24:00 EDT, Tablet, [facility] [id number], disreguard last script for 0.5 tab, 173, cm, 12/05/21 17:38:00 EDT,... Start Date: 04/20/22 Status: Ordered varenicline 1mg tablet 1 tablet = 1 mg, By Mouth, Daily, 0.5 tab daily x 3 days then 0.5 tab BID x 3 days then 1 tab BID, # 30 tablet, 4 Refills, Maintenance, 09/04/22 15:20:00 EST, Tablet, [facility] [id number], Partial fill upon patient request if... Start Date: 09/04/22 Status: Ordered Ventolin HFA 108 mcg/inh inhalation aerosol with adapter 2 puffs, Inhalation, 4 times a day, PRN for wheezing, must get appt and labs for refills, # 3 each,0 Refills, Maintenance, 12/16/22 19:15:00 EDT, Aerosol, [facility] [id number], Partial fill upon patient request if the prescr... Start Date: 12/16/22 Status: Ordered Vitamin D3 1000 intl units oral capsule 1 capsule = 25 mcg, By Mouth, Daily, # 30 capsule, 11 Refills, Maintenance, 06/04/22 17:32:00 EDT, Capsule, [facility] [id number], D/c vitamin high dosed, 173, cm, 05/10/22 [...] - 01/2019 Confirmed Active Depression - [facility] Confirmed Active Diastolic dysfunction 1 [...] Team Personnel Name: Jadiel Watson RN Position: [facility] ED RN W/OE and Tasks Member Role: Primary Care Nurse Name: Dede Mccloud RN Position: [facility] RN Member Role: Primary Care Nurse Name: Judy Gonzales RN Position: [facility] RN Member Role: Primary Care Nurse Name: Enma Manriquez RN Position: [facility] RN Member Role: Primary Care Nurse Name: Zuhair Lopez RN Position: [facility] RN Member Role: Primary Care Nurse Name: Edie Bob RN Position: [facility] RN Member Role: Primary Care Nurse Name: Lisbet Gardiner RN Position: [facility] RN Member Role: Primary Care Nurse Name: Namrata Prieto MD Position: [facility] Primary Care Physician Member Role: PCP Address: Address: [address] [place] [address], -Level [facility] [place] [address]- Name: Carolina Valero RN Position: [facility] RN Member Role: Primary Care Nurse Name: Nishi San RN Position: [facility] RN Member Role: Primary Care Nurse Name: Micky Boyd RN Position: [facility] RN Member Role: Primary Care Nurse Name: Lauri Combs NP Position: Reference Physician Member Role: Primary Care Nurse Address: Address: [address] [place] [address] [address] Clinical [facility] [place] [address]- Care Team Related Persons Name: GARY SANY Address: [place] [address] Name: BROOKE OWEN Address: home [address] [address] Name: KARYN OWEN Address: home [address] [place] [address] Name: DOMINGO LEONE Address: home [address] [place] [address]
--- OUTSIDE RECORDS SUMMARY | 2023-07-12 20:15 | XMS_ITS | Continuity of Care Document ---
Author Name Unknown Organization [facility] Address [address] [place] [id number]- Care Team Providers Care Electrician Master Name Role Phone Namrata Prieto MD Primary Care Physician [place] [facility] [place]s): 09/26/20 - 10/26/20 [facility] [address] [place] [id number] Allergies, Adverse Reactions, Alerts Substance [...] 05/28/20 16:31:00 EDT, Route to Pharmacy Electronically, [facility] [id number], 171, cm, 05/28/20 16:01:00 EDT, Height, 59.5, kg, 12/29/19... Start Date: 05/28/20 Status: Ordered atovaquone 750 mg/5 mL oral suspension 10 mL = 1,500 mg, By Mouth, Daily, for 60 days, # 600 mL, 11 Refills, Acute 05/18/22 16:35:00 EDT, 05/28/20 16:35:00 EDT, Suspension, [facility] [id number], Pls cancel bactrim prescription. Atovaquone to replace bactrim, 171,... Start Date: 05/28/20 Stop Date: 05/18/22 Status: Ordered azithromycin 500 mg oral tablet 2 tablet = 1,000 mg, By Mouth, Once, take both tablets at once, # 2 tablet, 0 Refills, Soft Stop, 06/27/20 17:56:00 EDT, Tablet, [facility] [id number], 171, cm, 05/28/20 16:01:00 EDT, Height, 59.5, kg, 12/29/19 15:28:00 EDT, D... Start Date: 06/27/20 Status: Ordered Biktarvy oral tablet 1 tablet, By Mouth, Daily, for 30 days, # 30 tablet, 11 Refills, Hard Stop 05/23/21 16:35:00 EDT, 05/28/20 16:35:00 EDT, Tablet, [facility] [id number], 1 tablet By Mouth Daily,x30 days, 171, cm, 05/28/20 16:01:00 EDT, Height,... Start Date: 05/28/20 Stop Date: 05/23/21 Status: Ordered Colace sodium 100 mg oral capsule 100 mg, 1, capsule, By Mouth, 2 times a day, PRN, # 60 capsule, Refills 11, Tot. Refills 11, Maintenance, for constipation, 05/28/20 16:34:00 EDT, Route to Pharmacy Electronically, [facility] [id number], 171, cm, 05/28/20 16:0... Start Date: 05/28/20 [...] 06/28/20 13:01:00 EDT, Route to Pharmacy Electronically, [facility] [id number], 171, cm, 05/28/20 16:01:00 EDT, Height, 59.5... Start Date: 06/28/20 Status: Ordered hydrocortisone 0.5% topical cream See Instructions, use sparingly on face, use on all other affected areas, # 28 Gm, 11 Refills, Maintenance, 05/28/20 16:37:00 EDT, [facility] [id number], use sparingly on face, use on all other affected areas, 171, cm, ... Start Date: 05/28/20 Status: Ordered influenza virus vaccine, inactivated adjuvanted preservative-free quadrivalent intramuscular susp See Instructions, none, # 1 each, 0 Refills, Maintenance, 05/30/20 9:27:00 EDT, [facility], none, 171, cm, 05/28/20 16:01:00 EDT, Height, 59.5, kg, 12/29/19 15:28:00 EDT, Dry Weight Start Date: 05/30/20 Status: Ordered ketoconazole 2% topical cream 1 application, Topically, 2 times a day, for 28 days, use on the face, # 60 Gm, 11 Refills, Acute 04/29/21 16:40:00 EDT, 05/28/20 16:40:00 EDT, Cream, [facility] [id number], 1 application Topically 2 times a day,x28 days,Instr... Start Date: 05/28/20 Stop Date: 04/29/21 Status: Ordered ketoconazole 2% topical shampoo 1 application, Topically, Daily, try daily for 5 days as a shampoo, # 120 mL, 11 Refills, Soft Stop, 05/28/20 16:37:00 EDT, Shampoo, [facility] [id number], 1 application Topically Daily,Instr:try daily for 5 days as a shampoo,... Start Date: 05/28/20 Status: Ordered lithium 300 mg oral capsule 2 capsule = 600 mg, By Mouth, 2 times a day, # 120 capsule, 2 Refills, Maintenance, 06/28/20 12:56:00 EDT, [facility], [facility] [id number], Increase in dose per Psychiatry, 171, cm, 05/28/20 16:01:00 EDT, Height, 59.5, kg, 12/29/19 15:2... Start Date: 06/28/20 Status: Ordered LORazepam 0.5 mg oral tablet 1 tablet = 0.5 mg, By Mouth, 2 times a day, PRN Anxiety, # 60 tablet, 2 Refills, Maintenance, 06/28/20 12:56:00 EDT, Tablet, [facility] [id number], 171, cm, 05/28/20 16:01:00EDT, Height, 59.5, kg, [...] 5 Refills, Maintenance, 05/28/20 16:35:00 EDT, Tablet, [facility], [facility] [id number], 171, cm, 05/28/20 16:01:00 EDT, Height, 59.5, kg, 12/29/19 15:28:00 EDT, Dry Weight Start Date: 05/28/20 Stop Date: 11/24/20 Status: Ordered multivitamin with minerals Calcium and Magnesium oral tablet 1 tablet, By Mouth, Daily, # 30 tablet, 11 Refills, Maintenance, 05/28/20 16:35:00 EDT, Tablet, [facility] [id number], 1 tablet By Mouth Daily, 171, cm, 05/28/20 16:01:00 EDT, Height, 59.5, kg, 12/29/19 15:28:00 EDT, Dry Weight Start Date: 05/28/20 Stop Date: 05/23/21 Status: Ordered Narcan 4 mg/0.1 mL nasal spray See Instructions, 4 mg Once may repeat every 2 to 3 minutes until patient responds, # 2 each, 1 Refills, Soft Stop, 08/24/19 9:41:00 EST, [place], [place] -, MAMADOU García to picker tender for Pt., 170, cm, 08/24/19 9:21:00 EST, Height, 66.36,... Start Date: 08/24/19 Status: Ordered Nicotine 2 mg gum 1 each = 2 mg, Chew, Every 2 hours, PRN as needed for smoking cessation, # 160 each, 3 Refills, Maintenance, 05/28/20 16:51:00 EDT, Gum, [place], [place] - [id number], 171, cm, 05/28/20 16:01:00 EDT, Height, 59.5, [...] Refills, Soft Stop, 05/30/20 9:25:00 EDT, Suspension, [facility], 0.5 mL Intramuscular Once, 171, cm, 05/28/20 16:01:00 EDT, Height, 59.5, kg,12/29/19 15:28:00 EDT, Dry Weight Start Date: 05/30/20 Status: Ordered polyethylene glycol 3350 oral powder for reconstitution = 17 Gm, By Mouth, 2 times a day, PRN Constipation, dissolve in water before taking, # 527 Gm, 3 Refills, Maintenance, 11/28/19 9:42:00 EDT, REC Powder, [place], [place] -, 17 Gm By Mouth 2 times a day,x30 days,PRN:Constipation,Instr:... Start Date: 11/28/19 Stop Date: 03/27/20 Status: Ordered SEROquel 25 mg oral tablet 25 mg, 1, tablet, By Mouth, Daily at bedtime, # 30 tablet, Refills 2, Tot. Refills 2, Maintenance, 06/14/20 20:44:00 EDT, Route to Pharmacy Electronically, [facility], 171, cm, 05/28/20 16:01:00 EDT, Height, 59.5, kg, 12/29/19 15:28:00... Start Date: 06/14/20 Stop Date: 09/12/20 Status: Ordered sildenafil 100 mg oral tablet 1 tablet = 100 mg, By Mouth, Daily, 1 hour before sexual activity, # 10 tablet, 5 Refills, Maintenance, 09/04/20 14:26:00 EST, Tablet, [place], [place] - [id number], Partial fill upon patient request if the prescription is for a sched... 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 Sex
--- OUTSIDE RECORDS SUMMARY | 2023-07-12 20:15 | XMS_ITS | Continuity of Care Document ---
Author Name Unknown Organization [facility] Address [address] [place] [address]- Care Team Providers Care Mechanical Intern Name Role Phone Conner QUEEN, Namrata Agarwal Primary Care Physician [facility]22 - 06/05/22 [facility] [address] [place] [id number] Allergies, Adverse Reactions, Alerts Substance Reaction [...] 8:29:00 EDT, Powder, Route to Pharmacy Electronically, [id number], [facility] - Spr... Start Date: 01/07/22 Stop Date: 01/02/23 Status: Ordered Albuterol (Eqv-ProAir HFA) 90 mcg/inh inhalation aerosol 2 puffs, Inhalation, Every 6 hours, # 8.5 Gm, 11 Refills, 08/25/21 12:34:00 EST, [facility] [id number], 25, 2 puffs Inhalation Every 6 hours, 173, cm, 08/25/21 12:31:00 EST, Height, 84, kg, 04/19/21 2:36:00 EDT, Dry Weight Start Date: 08/25/21 Status: Ordered amLODIPine 10 mg oral tablet 10 mg, 1, tablet, By Mouth, Daily, # 30 tablet, Refills 11, Tot. Refills 11, Maintenance, 08/27/21 16:46:00 EST, Route to Pharmacy Electronically, [facility] [id number], 173,cm, 08/25/21 12:31:00 EST, Height, 84, kg, 04/19/21... Start Date: 08/27/21 Status: Ordered Asperflex 4% topical film 1 patch, Topically, Daily, for 30 days, # 30 patch, 11 Refills, Acute 03/12/23 14:41:00 EDT, 03/17/22 14:41:00 EDT, [facility] [id number], Partial fill upon patient request if the prescription is for a schedule II opioid drug.... Start Date: 03/17/22 Stop Date: 03/12/23 Status: Ordered aspirin 81 mg oral tablet, chewable 81 mg, 1, tablet, By Mouth, Daily, # 120 tablet, Refills 3, Tot. Refills 3, Maintenance, 10/02/21 11:47:00 EST, Route to Pharmacy Electronically, [facility] [id number], Partial fill upon patient request if the prescription is... Start Date: 10/02/21 Stop Date: 01/25/23 Status: Ordered atorvastatin 80 mg oral tablet 1 tablet = 80 mg, By Mouth, Daily, # 30 tablet, 11 Refills, Maintenance, 11/07/21 14:34:00 EST, Tablet, [facility] [id number], Partial fill upon patient request if the [...] 1 Refills, Soft Stop, 03/05/22 10:37:00 EDT, [facility] [id number], Partial fill upon patient request if the prescriptio... Start Date: 03/05/22 Status: Ordered hydrocortisone 0.5% topical cream See Instructions, use sparingly on face, use on all other affected areas, # 28 Gm, 11 Refills, Maintenance, 03/07/21 6:50:00 EDT, [place], [place] - [id number], use sparingly on face, use on all other affected areas, 174, cm, 01/13/21... Start Date: 03/07/21 Status: Ordered Incruse Ellipta 62.5 mcg/inh inhalation powder 1 puffs, Inhalation, Every 24 hours, doses should be taken AT least 24 HOURS APART, # 30 Unknown, 11 Refills, 08/25/21 12:34:00 EST, [facility] [id number], 173, cm, 08/25/21 12:31:00 EST, Height, 84, kg, 04/19/21 2:36:00 EDT,... Start Date: 08/25/21 Status: Ordered ketoconazole 2% topical cream 1 application, Topically, Daily, # 30 Gm, 11 Refills, Maintenance, 04/20/22 9:23:00 EDT, [facility] [id number], 1 application Topically Daily, 173, cm, 12/05/21 17:38:00 EDT,Height, 127, kg, 12/05/21 17:38:00 EDT, Dry Weight Start Date: 04/20/22 Status: Ordered Lidoderm 5% film 1 patch, Topically, Daily, # 30 patch, 11 Refills, Maintenance, 03/19/22 21:12:00 EDT, [facility] [id number], Partial fill upon patient request if the [...] 11 Refills, Maintenance, 12/15/21 6:32:00 EDT, Tablet, [facility] [id number], 1 tablet By Mouth Daily, 173, cm, 12/05/21 17:38:00 EDT,Height, 127, kg, 12/05/21 17:38:00 EDT, Dry Weight Start Date: 12/15/21 Status: Ordered Narcan 4 mg/0.1 mL nasal spray See Instructions, 4 mg Once may repeat every 2 to 3 minutes until patient responds, # 2 each, 3 Refills, Soft Stop, 03/05/22 10:07:00 EDT, [facility] [id number], 173, cm, 12/05/21 17:38:00 EDT, Height, 127, kg, 12/05/21 17:38... Start Date: 03/05/22 Status: Ordered Nicotine 2 mg gum 1 each = 2 mg, Chew, Every 2 hours, PRN as needed for smoking cessation, for 4 week(s), # 160 each,11 Refills, Acute 09/11/22 12:53:00 EST, 10/10/21 12:53:00 EST, Gum, [facility] [id number], Partial fill upon patient request... Start Date: 10/10/21 Stop Date: 09/11/22 Status: Ordered ondansetron 4 mg oral tablet, disintegrating 1 tablet = 4 mg, By Mouth, Every 8 hours, PRN as needed for nausea/vomiting, # 12 tablet, 11 Refills, Maintenance, 08/21/21 13:33:00 EST, DIS Tablet, [facility] [id number], Partial fill upon patient request if the [...] Refills, Maintenance, 12/02/21 16:55:00 EDT, REC Powder, [facility] [id number], 17 Gm By Mouth 2 times a day,x30 days,PRN:Constip... Start Date: 12/02/21 Stop Date: 04/01/22 Status: Ordered rOPINIRole 0.5 mg oral tablet 1 tablet = 0.5 mg, By Mouth, Daily at bedtime, 1 to 3 hours before bedtime, # 30 tablet, 11 Refills, Maintenance, 08/21/21 13:32:00 EST, Tablet, [facility] [id number], Partial fill upon patient request if the prescription is f... Start Date: 08/21/21 Status: Ordered sildenafil 100 mg oral tablet 1 tablet = 100 mg, By Mouth, Daily, 1 hour before sexual activity, # 20 tablet, 11 Refills, Maintenance, 04/20/22 9:24:00 EDT, Tablet, [facility] [id number], disreguard last script for 0.5 tab, 173, cm, 12/05/21 17:38:00 EDT,... Start Date: 04/20/22 Status: Ordered varenicline 1mg tablet 1 tablet = 1 mg, By Mouth, Daily, 0.5 tab daily x 3 days then 0.5 tab BID x 3 days then 1 tab BID, # 30 tablet, 4 Refills, Maintenance, 04/01/22 16:45:00 EDT, Tablet, [facility] [id number], Partial fill upon patient request if... Start [...] 11 Refills, Maintenance, 06/04/22 17:32:00 EDT, Capsule, [place], [place] - [id number], D/c vitamin high dosed, 173, cm, 05/10/22 [...] Name: Conner QUEEN, Namrata Agarwal Address: Address: [address] [place] [address], -[facility] [place], [place] [address]
--- OUTSIDE RECORDS SUMMARY | 2023-07-12 20:15 | XMS_ITS | Continuity of Care Document ---
Author Name Unknown Organization [facility] Address [address] [place] [address]- Care Team Providers Care Tapper Operator Name Role Phone Conner QUEEN, Namrata Agarwal Primary Care Physician [phone] [facility]): 03/29/20 - 04/28/20 [facility] [address] [place] [address]- [facility] Allergies, Adverse Reactions, Alerts Substance Reaction Severity Status shellfish Active Latex rash Active Immunizations Given and Recorded Vaccine Date Status Refusal Reason influenza virus vaccine, inactivated 06/08/19 Give n Medications amLODIPine 5 mg oral tablet 5 mg, 1, tablet, By Mouth, Daily, # 30 tablet, Refills 5, Tot. Refills 5, Maintenance, 11/28/19 9:43:00 EDT, Route to Pharmacy Electronically, [facility] - [place], [place] -, 172, kenan, 09/26/19 8:57:00 EST, Height, 66.3, kg, 09/11/19 13:26:00 EST,... Start Date: 11/28/19 Stop Date: 05/26/20 Status: Ordered atovaquone 750 mg/5 mL oral suspension 10 mL = 1,500 mg, By Mouth, Daily, for 60 days, # 600 mL, 5 Refills, Acute 11/22/20 9:44:00 EDT, 11/28/19 9:44:00 EDT, Suspension, [facility] - [place], [place] -, Pls cancel bactrim prescription. Atovaquone to replace bactrim, 172, cm, 09/26/19 8... Start Date: 11/28/19 Stop Date: 11/22/20 Status: Ordered Biktarvy oral tablet 1 tablet, By Mouth, Daily, for 30 days, # 30 tablet, 5 Refills, Hard Stop 08/25/20 12:37:00 EST, 02/27/20 12:37:00 EDT, Tablet, [place], [place] -, 1 tablet By Mouth Daily,x30 days, 171, cm, 02/22/20 10:16:00 EDT, Height, 59.5, kg, 04... Start Date: 02/27/20 Stop Date: 08/25/20 Status: Ordered Biktarvy oral tablet 1 tablet, By Mouth, Daily, # 30 tablet, 5 Refills, Maintenance, 08/18/20 5:43:00 EST, Tablet, [place], [place] -, 1 tablet By Mouth Daily,x30 [...] 12/29/19 16:19:00 EDT, Route to Pharmacy Electronically, [place], [place] -, 171, cm, 12/29/19 15:28:00 EDT, Hei... Start Date: 12/29/19 Status: Ordered gabapentin 100 mg oral capsule 200 mg, 2, capsule, By Mouth, 3 times a day, # 180 capsule, Refills 3, Tot. Refills 3, Maintenance,02/27/20 12:37:00 EDT, Route to Pharmacy Electronically, [place], [place] -, 171, cm, 02/22/20 10:16:00 EDT, Height, 59.5, kg, 2... Start Date: 02/27/20 Stop Date: 06/26/20 Status: Ordered hydrocortisone 0.5% topical cream See Instructions, apply in a thin film to the hands and rub in gently 3 times a day for 5 days, # 28 Gm, 1 Refills, Maintenance, 02/27/20 12:35:00 EDT, [place], [place] -, apply in athin film to the hands and rub in gently 3 times a... Start Date: 02/27/20 Status: Ordered ketoconazole 2% topical shampoo 1 application, Topically, Daily, try daily for 5 days as a shampoo, # 120 mL, 3 Refills, Soft Stop,12/21/19 11:58:00 EDT, Shampoo, [place], [place] -, 1 application Topically Daily,Instr:try daily for 5 days as a shampoo, 172, cm, 01... Start Date: 12/21/19 Status: Ordered lithium 300 mg oral capsule See Instructions, 1 capsule by mouth in the AM and 2 capsule By Mouth Daily at bedtime 30 days, # 90 capsule, 2 Refills, Maintenance, 03/26/20 9:27:00 EDT, [place], [place] -, Increase in dose per Psychiatry, 171, cm, 03/26/20 8:54:00... Start Date: 03/26/20 Status: Ordered LORazepam 0.5 mg oral tablet 1 tablet = 0.5 mg, By Mouth, 2 times a day, PRN Anxiety, # 60 tablet, 2 Refills, Maintenance, 02/27/20 12:37:00 EDT, Tablet, [place], [place] -, 171, cm, 02/22/20 10:16:00 EDT, [...] tablet, 5 Refills, Maintenance, 11/28/19 9:41:00EDT, Tablet, [place], [place] -, 172, cm, 09/26/19 8:57:00 EST, Height, 66.3, kg, 09/11/19 13:26:00 EST, Dry Weight Start Date: 11/28/19 Stop Date: 05/26/20 Status: Ordered multivitamin with minerals Calcium and Magnesium oral tablet 1 tablet, By Mouth, Daily, # 30 tablet, 5 Refills, Maintenance, 09/26/19 12:05:00 EST, Tablet, [place], [place] -, 1 tablet By Mouth Daily,x30 days, 172, cm, 09/26/19 8:57:00 EST, Height, 66.3, kg, 09/11/19 13:26:00 EST, Dry Weight Start Date: 09/26/19 Stop Date: 03/24/20 Status: Ordered Narcan 4 mg/0.1 mL nasal spray See Instructions, 4 mg Once may repeat every 2 to 3 minutes until patient responds, # 2 each, 1 Refills, Soft Stop, 08/24/19 9:41:00 EST, [place], [place] -, [facility] Raquel to picker / packer for Pt., 170, cm, 08/24/19 9:21:00 [...] Refills, Maintenance, 11/28/19 9:42:00 EDT, REC Powder, [place], [place] -, 17 Gm By Mouth 2 times a day,x30 days,PRN:Constipation,Instr:... Start Date: 11/28/19 Stop Date: 03/27/20 Status: Ordered SEROquel 25 mg oral tablet 25 mg, 1, tablet, By Mouth, Daily at bedtime, # 30 tablet, Refills 2, Tot. Refills 2, Maintenance, 03/26/20 9:29:00 EDT, Route to Pharmacy Electronically, [facility] - [place], [place] -, 171, cm, 03/26/20 8:54:00 EDT, [...]
--- OUTSIDE RECORDS SUMMARY | 2023-07-12 20:15 | XMS_ITS | Continuity of Care Document ---
Author Name Unknown Organization [facility] Address [address] [place] [address]- Care Team Providers Care Log Brander Name Role Phone Conner QUEEN, Namrata Agarwal Primary Care Physician [phone] [facility]): 06/03[facility]23 - 07/03/23 [facility] [address] [place] [id number] Allergies, Adverse Reactions, Alerts Substance Reaction Severity Status naltrexone fever, hallucinations Active Latex rash Active shellfish Active Bee Stings [...] 02/16/23 10:45:00 EDT, Route to Pharmacy Electronically, [facility] - [place], [place] - [id number], 173, cm, 01/21/23 11:36:00 EDT, Height, 93.18, kg, 2... Start Date: 02/16/23 Status: Ordered aspirin 81 mg oral tablet, chewable 81 mg, 1, tablet, By Mouth, Daily, # 90 tablet, Refills 3, Tot. Refills 3, Maintenance, 02/16/23 10:45:00 EDT, Route to Pharmacy Electronically, [facility] [id number], Partial fill upon patient request if the prescription is f... Start Date: 02/16/23 Status: Ordered atorvastatin 80 mg oral tablet 1 tablet = 80 mg, By Mouth, Daily, # 90 tablet, 3 Refills, Maintenance, 02/16/23 10:45:00 EDT, Tablet, [facility] [id number], Partial fill upon patient request if the prescription is for a schedule II opioid drug., 173, cm, 05... Start Date: 02/16/23 Status: Ordered Biktarvy oral tablet 1 tablet, By Mouth, Daily, must get appt and labs for refills, # 30 tablet, 0 Refills, Maintenance,12/16/22 19:18:00 EDT, [facility] [id number], 30, 1 tablet By Mouth Daily,Instr:must get [...] 06/04/23 11:21:00 EDT, Route to Pharmacy Electronically, [facility], Partial fill upon patient request if the prescription... Start Date: 06/04/23 Status: Ordered Colace sodium 100 mg oral capsule 100 mg, 1, capsule, By Mouth, 2 times a day, PRN, # 180 capsule, Refills 3, Tot. Refills 3, Maintenance, for constipation, 02/16/23 10:45:00 EDT, Route to Pharmacy Electronically, [facility] [id number], Partial fill upon patie... Start Date: 02/16/23 Status: Ordered EpiPen 2-Devin 0.3 mg injectable kit = 0.3 mg, Intramuscular, Once, may repeat if necessary, # 2 each, 1 Refills, Soft Stop, 04/14/23 14:07:00 EDT, [facility] [id number], Partial fill upon patient request if theprescription is for a schedule II opioid drug., 176... Start Date: 04/14/23 Status: Ordered fluticasone-salmeterol 250 mcg-50 mcg inhalation powder 1, puffs, Inhalation, 2 times a day, # 3 each, Refills 3, Tot. Refills 3, Maintenance, 02/16/23 10:45:00 EDT, Powder, Route to Pharmacy Electronically, [id number], [facility] [id number], 173, cm, 01/04... Start Date: 02/16/23 Status: Ordered gabapentin 300 mg oral capsule 600 mg, 2, capsule, By Mouth, Daily at bedtime, 1 cap qHS x 1 week then 2 cap qHS, # 60 capsule, Refills 4, Tot. Refills 4, Maintenance, 07/02/23 12:03:00 EDT, Route to Pharmacy Electronically, [facility] [id number], Partial f... Start Date: 07/02/23 Status: Ordered Incruse Ellipta 62.5 mcg/inh inhalation powder 1 puffs, Inhalation, Every 24 hours, # 3 each, 3 Refills, Maintenance, 06/30/23 13:10:00 EDT, [facility] [id number], 176, cm, 06/24/23 21:18:00 EDT, Height, 99.5, kg, 02/26/23 9:56:00 EDT, Dry Weight Start Date: 06/30/23 Status: Ordered Lidoderm 5% film 2 patch, Topically, Daily, remove patches after 12 hours; 2 patches to pain areas; can cut patches in half; do not excede 2 patches., # 60 patch, 4 Refills, Maintenance, 07/02/23 12:08:00 EDT, [place], [place] - [id number], Partial fi... Start Date: 07/02/23 Stop Date: 11/29/23 Status: Ordered [place] 200 mg, By Mouth, Daily at bedtime, [...] 30 tablet, 4 Refills, Maintenance, 06/04/23 11:20:00EDT, [facility], Partial fill upon patient request if [...] lozenge, 3 Refills, Maintenance, 07/02/23 12:09:00 EDT, [place], [place] - [id number], Partial fill upon patient... Start Date: 07/02/23 [...] 06/04/23 11:19:00 EDT, Route to Pharmacy Electronically, [facility], Partial fill upon patient request if the prescription is for a sc... Start Date: 06/04/23 Status: Ordered triamcinolone 0.025% topical cream 1 application, Topically, 2 times a day, for 14 days, eczema, # 30 Gm, 4 Refills, Acute 09/10/23 12:58:00 EST, 07/02/23 12:58:00 EDT, Cream, [facility] [id number], Partial fill upon patient request if the prescription is for a... Start Date: 07/02/23 Stop Date: 09/10/23 Status: Ordered Ventolin HFA 108 mcg/inh inhalation aerosol with adapter 2 puffs, Inhalation, 4 times a day, PRN for wheezing, # 3 each, 3 Refills, Maintenance, 02/16/23 10:45:00 EDT, Aerosol, [facility] [id number], Partial fill upon patient request if the prescription is for a schedule II opioid d... Start Date: 02/16/23 Status: Ordered Vitamin D3 1000 intl units oral capsule 1 capsule = 25 mcg, By Mouth, Daily, # 90 capsule, 3 Refills, Maintenance, 02/16/23 10:45:00 EDT, Capsule, [facility] [id number], D/c vitamin high dosed, 173, cm, 01/21/23 [...] Team Personnel Name: Jadiel Watson RN Position: [facility] ED RN W/OE and Tasks Member Role: Primary Care Nurse Name: Dede Mccloud RN Position: [facility] RN Member Role: Primary Care Nurse Name: Judy Gonzales RN Position: [facility] RN Member Role: Primary Care Nurse Name: Enma Manriquez RN Position: [facility] AMB Nurse Member Role: Primary Care Nurse Name: Zuhair Lopez RN Position: [facility] RN Member Role: Primary Care Nurse Name: Edie Bob RN Position: [facility] RN Member Role: Primary Care Nurse Name: Lisbet Gardiner RN Position: [facility] AMB Nurse Member Role: Primary Care Nurse Name: Namrata Prieto MD Position: [facility] Physician - Primary Care Member Role: PCP Address: Address: [address] [place] [address] [place] [address]- Name: Carolina Valero RN Position: [facility] RN Member Role: Primary Care Nurse Name: Nishi San RN Position: [facility] RN Member Role: Primary Care Nurse Name: Micky Boyd RN Position: [facility] RN Member Role: Primary Care Nurse Name: Lauri Combs NP Position: Reference Physician Member Role: Primary Care Nurse Address: Address: [address] [place] [address] [address] [facility] [place] [address]- [place] Name: Griselda Rand Position: [facility] RN Supv Member Role: Primary Care Nurse Care Team Related Persons Name: JASWINDER LUIS Address: [place] [address] Name: BROOKE OWEN Address: home [address] [address] Name: KARYN OWEN Address: home [address] [place] [address] Name: DOMINGO LEONE Address: home [address] [place] [address]
--- OUTSIDE RECORDS SUMMARY | 2023-07-12 20:15 | XMS_ITS | Continuity of Care Document ---
Author Name Unknown Organization [facility] y Address [address] [place] [address]- Care Team Providers Care Fur Coat Sewer Name Role Phone Conner QUEEN, Namrata Agarwal Primary Care Physician [phone] [place] [facility] [place] 01/10/22 [facility] [address] [place] [id number] Attending Physician: Isidoro Neely MD Admitting [...] 8:29:00 EDT, Powder, Route to Pharmacy Electronically, [id number], [facility] - Spr... Start Date: 01/07/22 Stop Date: 01/02/23 Status: Ordered Albuterol (Eqv-ProAir HFA) 90 mcg/inh inhalation aerosol 2 puffs, Inhalation, Every 6 hours, # 8.5 Gm, 11 Refills, 08/25/21 12:34:00 EST, [facility], [facility] [id number], 25, 2 puffs Inhalation Every 6 hours, 173, cm, 08/25/21 12:31:00 EST, Height, 84, kg, 04/19/21 2:36:00 EDT, Dry Weight Start Date: 08/25/21 Status: Ordered amLODIPine 10 mg oral tablet 10 mg, 1, tablet, By Mouth, Daily, # 30 tablet, Refills 11, Tot. Refills 11, Maintenance, 08/27/21 16:46:00 EST, Route to Pharmacy Electronically, [facility], [facility] [id number], 173,cm, 08/25/21 12:31:00 EST, Height, 84, kg, 04/19/21... Start Date: 08/27/21 Status: Ordered aspirin 81 mg oral tablet, chewable 81 mg, 1, tablet, By Mouth, Daily, # 120 tablet, Refills 3, Tot. Refills 3, Maintenance, 10/02/21 11:47:00 EST, Route to Pharmacy Electronically, [facility] [id number], Partial fill upon patient request if the prescription is... Start Date: 10/02/21 Stop Date: 01/25/23 Status: Ordered atorvastatin 80 mg oral tablet 1 tablet = 80 mg, By Mouth, Daily, # 30 tablet, 11 Refills, Maintenance, 11/07/21 14:34:00 EST, Tablet, [place], [place] - [id number], Partial fill upon patient request if the prescription is for a schedule II opioid drug., 170, cm, 0... Start Date: 11/07/21 Status: Ordered atovaquone 750 mg/5 mL oral suspension 10 mL = 1,500 mg, By Mouth, Daily, for 60 days, # 600 mL, 11 Refills, Acute 10/28/23 14:35:00 EST, 11/07/21 14:35:00 EST, Suspension, [place], [place] - [id number], Pls cancel bactrim prescription. Atovaquone to replace bactrim, 170,... Start Date: 11/07/21 Stop Date: 10/28/23 Status: Ordered Biktarvy oral tablet 1 tablet, By Mouth, Daily, # 30 tablet, 11 Refills, [facility], 30, TAKE ONE TABLET BY [...] 12/02/21 16:54:00 EDT, Route to Pharmacy Electronically, [facility] [place], [place] - [id number], Partial fill upon pilar... Start Date: 12/02/21 [...] FOR CONSTIPATION, # 60 each, 2 Refills, [facility], 170, cm, 10/10/21 13:45:00 EST, Height, 110, kg, 09/29/21 21:14:00 EST, Dry Weight Start Date: 12/01/21 Status: Ordered hydrocortisone 0.5% topical cream See Instructions, use sparingly on face, use on all other affected areas, # 28 Gm, 11 Refills, Maintenance, 03/07/21 6:50:00 EDT, [facility] [id number], use sparingly on face, use on all other affected areas, 174, cm, 01/13/21... Start Date: 03/07/21 Status: Ordered Incruse Ellipta 62.5 mcg/inh inhalation powder 1 puffs, Inhalation, Every 24 hours, doses should be taken AT least 24 HOURS APART, # 30 Unknown, 11 Refills, 08/25/21 12:34:00 EST, [facility], [facility] [id number], 173, cm, 08/25/21 12:31:00 EST, Height, 84, kg, 04/19/21 2:36:00 EDT,... Start Date: 08/25/21 Status: Ordered ketoconazole 2% topical cream 1 application, Topically, Daily, # 30 Gm, 11 Refills, Maintenance, 12/02/21 16:56:00 EDT, [facility] [id number], 1 application Topically Daily, 170, cm, 10/10/21 [...] Refills, Maintenance, 11/11/21 17:22:00 EST, Tablet, [facility] [id number], 170, cm, 10/10/21 13:45... Start Date: 11/11/21 Stop Date: 12/11/21 Status: Ordered multivitamin with minerals Calcium and Magnesium oral tablet 1 tablet, By Mouth, Daily, # 30 tablet, 11 Refills, Maintenance, 12/15/21 6:32:00 EDT, Tablet, [facility] [id number], 1 tablet By Mouth Daily, 173, cm, 12/05/21 17:38:00 EDT,Height, 127, kg, 12/05/21 17:38:00 EDT, Dry Weight Start Date: 12/15/21 Status: Ordered Narcan 4 mg/0.1 mL nasal spray See Instructions, 4 mg Once may repeat every 2 to 3 minutes until patient responds, # 2 each, 1 Refills, Soft Stop, 08/24/19 9:41:00 EST, [place], [place] -, MAMADOU García to pickling operator for Pt., 170, cm, 08/24/19 9:21:00 EST, Height, 66.36,... Start Date: 08/24/19 Status: Ordered Nicotine 2 mg gum 1 each = 2 mg, Chew, Every 2 hours, PRN as needed for smoking cessation, for 4 week(s), # 160 each,11 Refills, Acute 09/11/22 12:53:00 EST, 10/10/21 12:53:00 EST, Gum, [facility] [id number], Partial fill upon patient request... Start Date: [...] Maintenance, 08/21/21 13:33:00 EST, DIS Tablet, [facility] [id number], Partial fill upon patient request if the [...] 11:47:00 EST, Route to Pharmacy Electronically, [facility] [id number], Partial fill upon patient request if the prescription is f... Start Date: 10/02/21 Stop Date: 12/31/21 Status: Ordered polyethylene glycol 3350 oral powder for reconstitution See Instructions, DISSOLVE 17grams powder IN WATER BEFORE drinking 2 (two) times a day NEEDED FOR CONSTIPATION, # 510 Gm, 11 Refills, [facility], 30, DISSOLVE 17grams powder IN WATER BEFORE drinking 2 (two) times a day NEEDED FOR CONSTIPATI... Start Date: 09/03/21 Status: Ordered polyethylene glycol 3350 oral powder for reconstitution = 17 Gm, By Mouth, 2 times a day, PRN Constipation, dissolve in water before taking, # 527 Gm, 3 Refills, Maintenance, 12/02/21 16:55:00 EDT, REC Powder, [place], [place] - [id number], 17 Gm By Mouth 2 times a day,x30 days,PRN:Constip... Start Date: 12/02/21 Stop Date: 04/01/22 Status: Ordered rOPINIRole 0.5 mg oral tablet 1 tablet = 0.5 mg, By Mouth, Daily at bedtime, 1 to 3 hours before bedtime, # 30 tablet, 11 Refills, Maintenance, 08/21/21 13:32:00 EST, Tablet, [facility] [id number], Partial fill upon patient request if the prescription is f... Start Date: 08/21/21 Status: Ordered Senna 8.6 mg oral tablet 1 or 2 tablets, By Mouth, Daily at bedtime, PRN, # 60 tablet, Refills 5, Tot. Refills 5, Maintenance, Constipation, 10/10/21 14:43:00 EST, Route to Pharmacy Electronically, [facility] [id number] Tablet, Partial fill upon patie... Start Date: 10/10/21 Status: Ordered sildenafil 100 mg oral tablet 1 tablet = 100 mg, By Mouth, Daily, 1 hour before sexual activity, # 20 tablet, 11 Refills, Maintenance, 03/07/21 6:49:00 EDT, Tablet, [facility] [id number], Partial fill upon patient request if the prescription is for a sched... Start Date: 03/07/21 Status: Ordered varenicline 1mg tablet 1 tablet = 1 mg, By Mouth, Daily, 0.5 tab daily x 3 days then 0.5 tab BID x 3 days then 1 tab BID, # 30 tablet, 4 Refills, Maintenance, 11/13/21 15:15:00 EST, Tablet, [facility] [id number], Partial fill upon patient request if... 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
--- OUTSIDE RECORDS SUMMARY | 2023-07-12 20:15 | XMS_ITS | Continuity of Care Document ---
Author Name Unknown Organization [facility] y Address [address] [place] [address]- Care Team Providers Care Blanking Machine Operator Name Role Phone Conner QUEEN, Namrata Agarwal Primary Care Physician [place] [facility] [place]): 03/25/21 - 05/24/21 [facility] [address], [place] [address] Attending Physician: Isidoro Neely MD [...] 03/07/21 6:50:00 EDT, Route to Pharmacy Electronically, [place], [place] - [id number], 174, cm, 01/13/21 8:20:00 EDT, Height, 93, kg, 01/08/21 18:... Start Date: 03/07/21 Status: Ordered atovaquone 750 mg/5 mL oral suspension 10 mL = 1,500 mg, By Mouth, Daily, for 60 days, # 600 mL, 11 Refills, Acute 02/25/23 6:50:00 EDT, 03/07/21 6:50:00 EDT, Suspension, [facility] [id number], Pls cancel bactrim prescription. Atovaquone to replace bactrim, 174, cm... Start Date: 03/07/21 Stop Date: 02/25/23 Status: Ordered Colace sodium 100 mg oral capsule 100 mg, 1, capsule, By Mouth, 2 times a day, PRN, # 60 capsule, Refills 11, Tot. Refills 11, Maintenance, for constipation, 05/28/20 16:34:00 EDT, Route to Pharmacy Electronically, [facility], [facility] [id number], 171, cm, 05/28/20 16:0... Start Date: 05/28/20 Status: Ordered hydrocortisone 0.5% topical cream See Instructions, use sparingly on face, use on all other affected areas, # 28 Gm, 11 Refills, Maintenance, 03/07/21 6:50:00 EDT, [facility], [facility] [id number], use sparingly on face, use on all other affected areas, 174, cm, 01/13/21... Start Date: 03/07/21 Status: Ordered ketoconazole 2% topical shampoo 1 application, Topically, Daily, try daily for 5 days as a shampoo, # 120 mL, 11 Refills, Soft Stop, 03/07/21 6:51:00 EDT, Shampoo, [facility], [facility] [id number], 1 application Topically Daily,Instr:try daily for 5 [...] 0 Refills, Maintenance, 07/08/20 15:34:00 EST, Tablet, [facility], 3 tablet By Mouth [...] Maintenance, 03/07/21 6:51:00 EDT, Tablet, [facility] [id number], 1 tablet By Mouth Daily, 174, cm, 01/13/21 8:20:00 EDT, Height, 93, kg, 01/08/21 18:17:00 EDT, Dry Weight Start Date: 03/07/21 Status: Ordered Narcan 4 mg/0.1 mL nasal spray See Instructions, 4 mg Once may repeat every 2 to 3 minutes until patient responds, # 2 each, 1 Refills, Soft Stop, 08/24/19 9:41:00 EST, [place], [place] -, MAMADOU García to cone picker for Pt., 170, cm, 08/24/19 9:21:00 EST, Height, 66.36,... Start Date: 08/24/19 Status: Ordered ondansetron 4 mg oral tablet, disintegrating 1 tablet = 4 mg, By Mouth, Every 8 hours, PRN as needed for nausea/vomiting, # 12 tablet, 0 Refills, Maintenance, 12/08/20 19:19:00 EDT, DIS Tablet, [facility] [id number], Partial fill upon patient request if the [...] Refills, Maintenance, 11/28/19 9:42:00 EDT, REC Powder, [place], [place] -, 17 Gm By Mouth 2 times a day,x30 days,PRN:Constipation,Instr:... Start Date: 11/28/19 Stop Date: 03/27/20 Status: Ordered sildenafil 100 mg oral tablet 1 tablet = 100 mg, By Mouth, Daily, 1 hour before sexual activity, # 20 tablet, 11 Refills, Maintenance, 03/07/21 6:49:00 EDT, Tablet, [place], [place] - [id number], Partial fill upon patient request if the prescription is for a sched... 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
--- OUTSIDE RECORDS SUMMARY | 2023-07-12 20:15 | XMS_ITS | Continuity of Care Document ---
Author Name Unknown Organization [facility] Address [address] [place] [address]- Care Team Providers Care Lap Layer Name Role Phone Conner QUEEN, Namrata Agarwal Primary Care Physician Encounter [facility] Date(s): 12/16/22 - 01/15/23 [facility] [address] [place] [id number], Adverse Reactions, Alerts Substance Reaction Severity [...] 8:46:00 EST, Powder, Route to Pharmacy Electronically, [id number], [facility] - Spr... Start Date: 07/20/22 Stop Date: 07/15/23 Status: Ordered amLODIPine 10 mg oral tablet 10 mg, 1, tablet, By Mouth, Daily, # 30 tablet, Refills 11, Tot. Refills 11, Maintenance, 07/20/22 8:43:00 EST, Route to Pharmacy Electronically, [facility] [id number], 173, cm, 05/10/22 20:46:00 EDT, Height, 95.5, kg, 2... Start Date: 07/20/22 Status: Ordered aspirin 81 mg oral tablet, chewable 81 mg, 1, tablet, By Mouth, Daily, # 30 tablet, Refills 11, Tot. Refills 11, Maintenance, 07/20/22 8:43:00 EST, Route to Pharmacy Electronically, [facility] [id number], Partial fill upon patient request if the prescription is... Start Date: 07/20/22 Stop Date: 11/12/23 Status: Ordered atorvastatin 80 mg oral tablet 1 tablet = 80 mg, By Mouth, Daily, # 30 tablet, 11 Refills, Maintenance, 07/20/22 8:43:00 EST, Tablet, [facility] [id number], Partial fill upon patient request if the prescription is for a schedule II opioid drug., 173, cm, 09... Start Date: 07/20/22 Status: Ordered Biktarvy oral tablet 1 tablet, By Mouth, Daily, must get appt and labs for refills, # 30 tablet, 0 Refills, Maintenance,12/16/22 19:18:00 EDT, [facility] [id number], 30, 1 tablet By Mouth Daily,Instr:must get [...] 12/24/22 19:14:00 EDT, Route to Pharmacy Electronically, [facility]... Start Date: 12/24/22 Status: Ordered Crutches [...] 1 Refills, Soft Stop, 03/05/22 10:37:00 EDT, [facility] [place], [place] - [id number], Partial fill upon patient request if the prescriptio... Start Date: 03/05/22 Status: Ordered fluticasone-salmeterol 250 mcg-50 mcg inhalation powder 1, puffs, Inhalation, 2 times a day, patient needs labs and appt before more refills, # 60 each, Refills 0, Tot. Refills 0, Maintenance, 12/16/22 19:27:00 EDT, Powder, Route to Pharmacy Electronically, [id number], [facility]... Start Date: 12/16/22 Status: Ordered [...] Gm, 11 Refills, Maintenance, 04/20/22 9:23:00 EDT, [facility] [id number], 1 application Topically Daily, 173, cm, 12/05/21 17:38:00 EDT,Height, 127, kg, 12/05/21 17:38:00 EDT, Dry Weight Start Date: 04/20/22 Status: Ordered Lidoderm 5% film 1 patch, Topically, Daily, # 30 patch, 11 Refills, Maintenance, 03/19/22 21:12:00 EDT, [facility] [id number], Partial fill upon patient request if the [...] 11 Refills, Maintenance, 07/20/22 8:43:00 EST, Tablet, [place], [place] - [id number], 1 tablet By Mouth Daily, 173, cm, 05/10/22 20:46:00 EDT,Height, 95.5, kg, 05/10/22 20:46:00 EDT, Dry Weight Start Date: 07/20/22 Status: Ordered Narcan 4 mg/0.1 mL nasal spray See Instructions, 4 mg Once may repeat every 2 to 3 minutes until patient responds, # 2 each, 3 Refills, Soft Stop, 03/05/22 10:07:00 EDT, [facility] [id number], 173, cm, 12/05/21 17:38:00 EDT, Height, 127, [...] Refills, Soft Stop, 12/24/22 11:37:00 EDT, Lotion, [facility] [id number], Partial fill upon pa... Start Date: 12/24/22 Status: Ordered polyethylene glycol 3350 oral powder for reconstitution = 17 Gm, By Mouth, 2 times a day, PRN Constipation, dissolve in water before taking, # 527 Gm, 3 Refills, Maintenance, 12/02/21 16:55:00 EDT, REC Powder, [facility] [id number], 17 Gm By Mouth 2 times a day,x30 days,PRN:Constip... Start Date: 12/02/21 Stop Date: 04/01/22 Status: Ordered rOPINIRole 0.5 mg oral tablet 1 tablet = 0.5 mg, By Mouth, Daily at bedtime, 1 to 3 hours before bedtime, # 30 tablet, 11 Refills, Maintenance, 07/20/22 8:43:00 EST, Tablet, [facility] [id number], Partialfill upon patient request if the prescription is fo... Start Date: 07/20/22 Status: Ordered Senna 8.6 mg oral tablet 1 or 2 tablets, By Mouth, Daily at bedtime, PRN, Must make appt and get labs for refills, # 180 tablet, Refills 0, Tot. Refills 0, Maintenance, Constipation, 12/16/22 19:14:00 EDT, Route to Pharmacy Electronically, [place], [place] -... Start Date: 12/16/22 Status: Ordered sildenafil 100 mg oral tablet 1 tablet = 100 mg, By Mouth, Daily, 1 hour before sexual activity, # 20 tablet, 11 Refills, Maintenance, 04/20/22 9:24:00 EDT, Tablet, [facility] [id number], disreguard last script for 0.5 tab, 173, cm, 12/05/21 17:38:00 EDT,... Start Date: 04/20/22 Status: Ordered varenicline 1mg tablet 1 tablet = 1 mg, By Mouth, Daily, 0.5 tab daily x 3 days then 0.5 tab BID x 3 days then 1 tab BID, # 30 tablet, 4 Refills, Maintenance, 09/04/22 15:20:00 EST, Tablet, [facility] [id number], Partial fill upon patient request if... Start Date: 09/04/22 Status: Ordered Ventolin HFA 108 mcg/inh inhalation aerosol with adapter 2 puffs, Inhalation, 4 times a day, PRN for wheezing, must get appt and labs for refills, # 3 each,0 Refills, Maintenance, 12/16/22 19:15:00 EDT, Aerosol, [facility] [id number], Partial fill upon patient request if the prescr... Start Date: 12/16/22 Status: Ordered Vitamin D3 1000 intl units oral capsule 1 capsule = 25 mcg, By Mouth, Daily, # 30 capsule, 11 Refills, Maintenance, 06/04/22 17:32:00 EDT, Capsule, [facility] [id number], D/c vitamin high dosed, 173, cm, 05/10/22 [...] Care Physician Member Role: PCP Address: Address: [address] [place] [address], -Level [facility] [place] [address]- Name: Carolina Valero RN Position: [facility] RN Member Role: Primary Care Nurse Name: Nishi San RN Position: [facility] RN Member Role: Primary Care Nurse Name: Micky Boyd RN Position: [facility] RN Member Role: Primary Care Nurse Name: Lauri Combs NP Position: Reference Physician Member Role: Primary Care Nurse Address: Address: [address] [place] [address] [address] [facility] [place] [address]- Care Team Related Persons Name: GARY SANY Address: [place] [address] Name: BROOKE OWEN Address: home [address] [address] Name: KARYN OWEN Address: home [address] [place] [address] Name: DOMINGO LEONE Address: home [address] [place] [address]
--- OUTSIDE RECORDS SUMMARY | 2023-07-12 20:15 | XMS_ITS | Continuity of Care Document ---
Author Name Unknown Organization [facility] Address [address] [place] [address]- Care Team Providers Care Dial Equipment Engineer Name Role Phone Conner QUEEN, Namrata Agarwal Primary Care Physician [place] [facility] [place]): 01/21/21 - 02/20/21 [facility] [address] [place] [id number] Allergies, Adverse Reactions, Alerts [...] 10/28/20 9:30:00 EST, Route to Pharmacy Electronically, [place], [place] - [id number], 173, cm, 07/17/20 19:29:00 EST, Height, 83.9, kg, 07/17/20... Start Date: 10/28/20 Status: Ordered atovaquone 750 mg/5 mL oral suspension 10 mL = 1,500 mg, By Mouth, Daily, for 60 days, # 600 mL, 11 Refills, Acute 05/18/22 16:35:00 EDT, 05/28/20 16:35:00 EDT, Suspension, [place], [place] - [id number], Pls cancel bactrim prescription. Atovaquone to replace bactrim, 171,... Start Date: 05/28/20 Stop Date: 05/18/22 Status: Ordered Biktarvy oral tablet 1 tablet, By Mouth, Daily, for 30 days, # 30 tablet, 11 Refills, Hard Stop 05/23/21 16:35:00 EDT, 05/28/20 16:35:00 EDT, Tablet, [facility], [facility] [id number], 1 tablet By Mouth Daily,x30 days, 171, cm, 05/28/20 16:01:00 EDT, Height,... Start Date: 05/28/20 Stop Date: 05/23/21 Status: Ordered Colace sodium 100 mg oral capsule 100 mg, 1, capsule, By Mouth, 2 times a day, PRN, # 60 capsule, Refills 11, Tot. Refills 11, Maintenance, for constipation, 05/28/20 16:34:00 EDT, Route to Pharmacy Electronically, [facility], [place] - [id number], 171, cm, 05/28/20 16:0... Start Date: 05/28/20 Status: Ordered hydrocortisone 0.5% topical cream See Instructions, use sparingly on face, use on all other affected areas, # 28 Gm, 11 Refills, Maintenance, 05/28/20 16:37:00 EDT, [facility], [facility] [id number], use sparingly on face, use on all other affected areas, 171, cm, ... Start Date: 05/28/20 Status: Ordered ketoconazole 2% topical shampoo 1 application, Topically, Daily, try daily for 5 days as a shampoo, # 120 mL, 11 Refills, Soft Stop, 05/28/20 16:37:00 EDT, Shampoo, [facility], [place] - [id number], 1 application Topically Daily,Instr:try daily for 5 days as a shampoo,... Start Date: 05/28/20 Status: Ordered lithium 300 mg oral capsule 2 capsule = 600 mg, By Mouth, 2 times a day, # 120 capsule, 2 Refills, Maintenance, 06/28/20 12:56:00 EDT, [facility] [id number], Increase in dose per Psychiatry, 171, cm, 05/28/20 16:01:00 EDT, Height, 59.5, kg, 12/29/19 15:2... Start Date: 06/28/20 Status: Ordered LORazepam 0.5 mg oral tablet 1 tablet = 0.5 mg, By Mouth, 2 times a day, PRN Anxiety, # 60 tablet, 2 Refills, Maintenance, 06/28/20 12:56:00 EDT, Tablet, [facility] [id number], 171, cm, 05/28/20 16:01:00EDT, Height, 59.5, kg, 12/29/19 15:28:00 EDT, Dry W... Start Date: 06/28/20 Status: Ordered Mavyret 100 mg-40 mg oral tablet 3 tablet, By Mouth, Daily, with food, # 252 tablet, 0 Refills, Maintenance, 07/08/20 15:34:00 EST, Tablet, [facility], 3 tablet By Mouth Daily,x12 week(s),Instr:with [...] 11 Refills, Maintenance, 05/28/20 16:35:00 EDT, Tablet, [facility] [id number], 1 tablet By Mouth Daily, 171, cm, 05/28/20 16:01:00 EDT, Height, 59.5, kg, 12/29/19 15:28:00 EDT, Dry Weight Start Date: 05/28/20 Stop Date: 05/23/21 Status: Ordered Narcan 4 mg/0.1 mL nasal spray See Instructions, 4 mg Once may repeat every 2 to 3 minutes until patient responds, # 2 each, 1 Refills, Soft Stop, 08/24/19 9:41:00 EST, [facility], MAMADOU García to excelsior picker for Pt., 170, cm, 08/24/19 9:21:00 EST, Height, 66.36,... Start Date: 08/24/19 Status: Ordered ondansetron 4 mg oral tablet, disintegrating 1 tablet = 4 mg, By Mouth, Every 8 hours, PRN as needed for nausea/vomiting, # 12 tablet, 0 Refills, Maintenance, 12/08/20 19:19:00 EDT, DIS Tablet, [place], [place] - [id number], Partial fill upon patient request if the [...] Refills, Maintenance, 11/28/19 9:42:00 EDT, REC Powder, [place], [place] -, 17 Gm By Mouth 2 times a day,x30 days,PRN:Constipation,Instr:... Start Date: 11/28/19 Stop Date: 03/27/20 Status: Ordered sildenafil 100 mg oral tablet 1 tablet = 100 mg, By Mouth, Daily, 1 hour before sexual activity, # 10 tablet, 5 Refills, Maintenance, 09/04/20 14:26:00 EST, Tablet, [place], [place] - [id number], Partial fill upon patient request if the prescription is for a sched... 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 Active Testicular disorder - numbne [...]
--- OUTSIDE RECORDS SUMMARY | 2023-07-12 20:15 | XMS_ITS | Continuity of Care Document ---
Author Name Unknown Organization [facility] Address Unknown Care Team Providers Care Lokie Engineer Name Role Phone Namrata Prieto MD Primary Care Physician Encounter [facility] Date(s): 09/23/21 - 10/23/21 [facility] Allergies, Adverse Reactions, Alerts Substance Reaction Severity [...] 13:14:00 EST, Powder, Route to Pharmacy Electronically, [id number], [facility] [place]... Start Date: 08/21/21 Stop Date: 01/18/22 Status: Ordered Albuterol (Eqv-ProAir HFA) 90 mcg/inh inhalation aerosol 2 puffs, Inhalation, Every 6 hours, # 8.5 Gm, 11 Refills, 08/25/21 12:34:00 EST, [facility] - [place], [place] - [id number], 25, 2 puffs Inhalation Every 6 hours, 173, cm, 08/25/21 12:31:00 EST, Height, 84, kg, 04/19/21 2:36:00 EDT, Dry Weight Start Date: 08/25/21 Status: Ordered amLODIPine 10 mg oral tablet 10 mg, 1, tablet, By Mouth, Daily, # 30 tablet, Refills 11, Tot. Refills 11, Maintenance, 08/27/21 16:46:00 EST, Route to Pharmacy Electronically, [facility] [id number], 173,cm, 08/25/21 12:31:00 EST, Height, 84, kg, 04/19/21... Start Date: 08/27/21 Status: Ordered aspirin 81 mg oral tablet, chewable 81 mg, 1, tablet, By Mouth, Daily, # 120 tablet, Refills 3, Tot. Refills 3, Maintenance, 10/02/21 11:47:00 EST, Route to Pharmacy Electronically, [facility], [facility] [id number], Partial fill upon patient request if the prescription is... Start Date: 10/02/21 Stop Date: 01/25/23 Status: Ordered atorvastatin 80 mg oral tablet 1 tablet = 80 mg, By Mouth, Daily at bedtime, # 90 tablet, 4 Refills, Maintenance, 10/02/21 11:47:00 EST, Tablet, [facility], [place] - [id number], Partial fill upon patient request if the prescription is for a schedule II opioid drug.,... Start Date: 10/02/21 Stop Date: 12/26/22 Status: Ordered atovaquone 750 mg/5 mL oral suspension 10 mL = 1,500 mg, By Mouth, Daily, for 60 days, # 600 mL, 11 Refills, Acute 02/25/23 6:50:00 EDT, 03/07/21 6:50:00 EDT, Suspension, [facility] [id number], Pls cancel bactrim prescription. Atovaquone to replace bactrim, 174, cm... Start Date: 03/07/21 Stop Date: 02/25/23 Status: Ordered Biktarvy oral tablet 1 tablet, By Mouth, Daily, # 30 tablet, 11 Refills, [facility], 30, TAKE ONE TABLET BY MOUTH [...] 0 Refills, Maintenance, 10/13/21 12:51:00 EST, Tablet, [facility], [facility] [id number], Partial fill upon patient request if the prescription is for a sche... Start Date: 10/13/21 Status: Ordered docusate sodium 100 mg oral capsule 1 capsule, By Mouth, 2 times a day, PRN NEEDED FOR CONSTIPATION, # 60 each, 5 Refills, [facility], 173, cm, 04/21/21 8:17:00 EDT, Height, 84, kg, 04/19/21 2:36:00 EDT, Dry Weight Start Date: 06/02/21 Status: Ordered hydrocortisone 0.5% topical cream See Instructions, use sparingly on face, use on all other affected areas, # 28 Gm, 11 Refills, Maintenance, 03/07/21 6:50:00 EDT, [facility] [id number], use sparingly on face, use on all other affected areas, 174, cm, 01/13/21... Start Date: 03/07/21 Status: Ordered Incruse Ellipta 62.5 mcg/inh inhalation powder 1 puffs, Inhalation, Every 24 hours, doses should be taken AT least 24 HOURS APART, # 30 Unknown, 11 Refills, 08/25/21 12:34:00 EST, [facility] [id number], 173, cm, 08/25/21 12:31:00 EST, Height, 84, kg, 04/19/21 2:36:00 EDT,... Start Date: 08/25/21 Status: Ordered ketoconazole 2% topical cream See Instructions, APPLY TO THE AFFECTED AREA TOPICALLY 2 (two) times a day. USE ON THE FACE, # 60 Gm, 11 Refills, [facility], 30, APPLY TO THE AFFECTED [...] 11 Refills, Maintenance, 03/07/21 6:51:00 EDT, Tablet, [place], [place] - [id number], 1 tablet By Mouth Daily, 174, cm, 01/13/21 8:20:00 EDT, Height, 93, kg, 01/08/21 18:17:00 EDT, Dry Weight Start Date: 03/07/21 Status: Ordered Narcan 4 mg/0.1 mL nasal spray See Instructions, 4 mg Once may repeat every 2 to 3 minutes until patient responds, # 2 each, 1 Refills, Soft Stop, 08/24/19 9:41:00 EST, [facility] [place] -, MAMADOU García to filler picker for Pt., 170, cm, 08/24/19 9:21:00 EST, Height, 66.36,... Start Date: 08/24/19 Status: Ordered Nicotine 2 mg gum 1 each = 2 mg, Chew, Every 2 hours, PRN as needed for smoking cessation, for 4 week(s), # 160 each,11 Refills, Acute 09/11/22 12:53:00 EST, 10/10/21 12:53:00 EST, Gum, [facility] [id number], Partial fill upon patient request... Start Date: [...] Refills, Maintenance, 08/21/21 13:33:00 EST, DIS Tablet, [facility] [id number], Partial fill upon patient request if the [...] 10/02/21 11:47:00 EST, Route to Pharmacy Electronically, [facility] [id number], Partial fill upon patient request if the prescription is f... Start Date: 10/02/21 Stop Date: 12/31/21 Status: Ordered polyethylene glycol 3350 oral powder for reconstitution = 17 Gm, By Mouth, 2 times a day, PRN Constipation, dissolve in water before taking, # 527 Gm, 3 Refills, Maintenance, 11/28/19 9:42:00 EDT, REC Powder, [place], [place] -, 17 Gm By Mouth 2 times a day,x30 days,PRN:Constipation,Instr:... Start Date: 11/28/19 Stop Date: 03/27/20 Status: Ordered polyethylene glycol 3350 oral powder for reconstitution See Instructions, DISSOLVE 17grams powder IN WATER BEFORE drinking 2 (two) times a day NEEDED FOR CONSTIPATION, # 510 Gm, 11 Refills, [facility], , DISSOLVE 17grams powder IN WATER BEFORE drinking 2 (two) times a day NEEDED FOR CONSTIPATI... Start Date: 09/03/21 Status: Ordered rOPINIRole 0.5 mg oral tablet 1 tablet = 0.5 mg, By Mouth, Daily at bedtime, 1 to 3 hours before bedtime, # 30 tablet, 11 Refills, Maintenance, 08/21/21 13:32:00 EST, Tablet, [facility] [id number], Partial fill upon patient request if the prescription is f... Start Date: 08/21/21 Status: Ordered Senna 8.6 mg oral tablet 1 or 2 tablets, By Mouth, Daily at bedtime, PRN, # 60 tablet, Refills 5, Tot. Refills 5, Maintenance, Constipation, 10/10/21 14:43:00 EST, Route to Pharmacy Electronically, [facility] [id number] Tablet, Partial fill upon patie... Start Date: 10/10/21 Status: Ordered sildenafil 100 mg oral tablet 1 tablet = 100 mg, By Mouth, Daily, 1 hour before sexual activity, # 20 tablet, 11 Refills, Maintenance, 03/07/21 6:49:00 EDT, Tablet, [facility] [id number], Partial fill upon patient request if the prescription is for a sched... 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(Confirmed) Active Diastolic dysfunction(Confirmed) 1 09/27/21 [...]
--- OUTSIDE RECORDS SUMMARY | 2023-07-12 20:15 | XMS_ITS | Continuity of Care Document ---
Author Name Unknown Organization [facility] Address [address] [place] [address]- Care Team Providers Care Audio/Video Engineer Name Role Phone Conner QUEEN, Namrata Agarwal Primary Care Physician [phone] Encounter [facility] Date(s): 01/27/21 - 02/26/21 [facility] [address] [place] [id number]- Allergies, Adverse Reactions, Alerts Substance Reaction Severity [...] 10/28/20 9:30:00 EST, Route to Pharmacy Electronically, [facility] [id number], 173, cm, 07/17/20 19:29:00 EST, Height, 83.9, kg, 07/17/20... Start Date: 10/28/20 Status: Ordered atovaquone 750 mg/5 mL oral suspension 10 mL = 1,500 mg, By Mouth, Daily, for 60 days, # 600 mL, 11 Refills, Acute 05/18/22 16:35:00 EDT, 05/28/20 16:35:00 EDT, Suspension, [place], [place] - [id number], Pls cancel bactrim prescription. Atovaquone to replace bactrim, 171,... Start Date: 05/28/20 Stop Date: 05/18/22 Status: Ordered Biktarvy oral tablet 1 tablet, By Mouth, Daily, for 30 days, # 30 tablet, 11 Refills, Hard Stop 05/23/21 16:35:00 EDT, 05/28/20 16:35:00 EDT, Tablet, [facility], [facility] [id number], 1 tablet By Mouth Daily,x30 days, 171, cm, 05/28/20 16:01:00 EDT, Height,... Start Date: 05/28/20 Stop Date: 05/23/21 Status: Ordered Colace sodium 100 mg oral capsule 100 mg, 1, capsule, By Mouth, 2 times a day, PRN, # 60 capsule, Refills 11, Tot. Refills 11, Maintenance, for constipation, 05/28/20 16:34:00 EDT, Route to Pharmacy Electronically, [facility] [id number], 171, cm, 05/28/20 16:0... Start Date: 05/28/20 Status: Ordered hydrocortisone 0.5% topical cream See Instructions, use sparingly on face, use on all other affected areas, # 28 Gm, 11 Refills, Maintenance, 05/28/20 16:37:00 EDT, [facility] [id number], use sparingly on face, use on all other affected areas, 171, cm, ... Start Date: 05/28/20 Status: Ordered ketoconazole 2% topical shampoo 1 application, Topically, Daily, try daily for 5 days as a shampoo, # 120 mL, 11 Refills, Soft Stop, 05/28/20 16:37:00 EDT, Shampoo, [facility] [id number], 1 application Topically Daily,Instr:try daily for 5 days as a shampoo,... Start Date: 05/28/20 Status: Ordered lithium 300 mg oral capsule 2 capsule = 600 mg, By Mouth, 2 times a day, # 120 capsule, 2 Refills, Maintenance, 06/28/20 12:56:00 EDT, [facility] [id number], Increase in dose per Psychiatry, 171, cm, 05/28/20 16:01:00 EDT, Height, 59.5, kg, 12/29/19 15:2... Start Date: 06/28/20 Status: Ordered LORazepam 0.5 mg oral tablet 1 tablet = 0.5 mg, By Mouth, 2 times a day, PRN Anxiety, # 60 tablet, 2 Refills, Maintenance, 06/28/20 12:56:00 EDT, Tablet, [facility] [id number], 171, cm, 05/28/20 16:01:00EDT, Height, 59.5, kg, 12/29/19 15:28:00 EDT, Dry W... Start Date: 06/28/20 Status: Ordered Mavyret 100 mg-40 mg oral tablet 3 tablet, By Mouth, Daily, with food, # 252 tablet, 0 Refills, Maintenance, 07/08/20 15:34:00 EST, Tablet, [facility], 3 tablet By Mouth Daily,x12 [...] 11 Refills, Maintenance, 05/28/20 16:35:00 EDT, Tablet, [facility] [id number], 1 tablet By Mouth Daily, 171, cm, 05/28/20 16:01:00 EDT, Height, 59.5, kg, 12/29/19 15:28:00 EDT, Dry Weight Start Date: 05/28/20 Stop Date: 05/23/21 Status: Ordered Narcan 4 mg/0.1 mL nasal spray See Instructions, 4 mg Once may repeat every 2 to 3 minutes until patient responds, # 2 each, 1 Refills, Soft Stop, 08/24/19 9:41:00 EST, [place], [place] -, MAMADOU García to pickle water pump operator for Pt., 170, cm, 08/24/19 9:21:00 EST, Height, 66.36,... Start Date: 08/24/19 Status: Ordered ondansetron 4 mg oral tablet, disintegrating 1 tablet = 4 mg, By Mouth, Every 8 hours, PRN as needed for nausea/vomiting, # 12 tablet, 0 Refills, Maintenance, 12/08/20 19:19:00 EDT, DIS Tablet, [place], [place] - [id number], Partial fill upon patient request if the [...] Refills, Maintenance, 11/28/19 9:42:00 EDT, REC Powder, [place], [place] -, 17 Gm By Mouth 2 times a day,x30 days,PRN:Constipation,Instr:... Start Date: 11/28/19 Stop Date: 03/27/20 Status: Ordered sildenafil 100 mg oral tablet 1 tablet = 100 mg, By Mouth, Daily, 1 hour before sexual activity, # 10 tablet, 5 Refills, Maintenance, 09/04/20 14:26:00 EST, Tablet, [place], [place] - [id number], Partial fill upon patient request if the prescription is for a sched... 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
== END 2023-07-12 20:26 | disposition home or self-care (01) ==
PROVIDERS: Physician Assistant; Emergency Provider Internal Medicine; PCP Internal Medicine
DX: R42 Dizziness and giddiness (principal); R94.31 Abnormal electrocardiogram [ECG] [EKG]; F17.210 Nicotine dependence, cigarettes, uncomplicated; Z79.899 Other long term (current) drug therapy; Z71.6 Tobacco abuse counseling
CPT/HCPCS: 36415; 80053; 80307; 81001; 83690; 84484; 85025; 93005; 99283; 99284

== ENCOUNTER 2024-10-20 16:20 | Outpatient (BNV) | payer OTHER, SELFPAY | END 2024-11-03 15:11 | PROVIDERS: Admitting Provider Clinical Nurse Specialist Psychiatric/Mental Health, Adult; Visit Provider Radiology Diagnostic Radiology | DX: R91.8 Other nonspecific abnormal finding of lung field (principal); R51.9 Headache, unspecified | CPT/HCPCS: 70450; 71045 ==

== ENCOUNTER 2024-10-20 16:20 | Inpatient (IN) | payer OTHER, SELFPAY ==
--- NOTE | ~2024-10-20 | XR_ITS ---
EXAMINATION: XR CHEST CLINICAL INFORMATION: R/O pneumonia COMPARISON: 02/09/2021. TECHNIQUE: Frontal view of the chest was obtained. FINDINGS: The cardiac, hilar, and mediastinal contours are normal. Lungs demonstrate patchy bibasilar opacities, and subtle right mid and upper lung opacities. No pneumothorax or effusion. No focal osseous abnormality. There are spinal degenerative changes. There is mild gaseous distention of the transverse, and splenic flexure. XR/XR chest 1V IMPRESSION: 1. Subtle patchy opacities both lung bases, and in the right mid and upper lung. Multifocal/atypical pneumonia is suspected. 2. There is no effusion or pneumothorax. Electronically signed by: Benoit Powell MD 11/03/2024 04:06 PM [facility]
--- NOTE | ~2024-10-20 | CT_ITS ---
EXAMINATION: CT HEAD WITHOUT CONTRAST CLINICAL INFORMATION: Headache after unwitnessed fall. COMPARISON: None available. TECHNIQUE: Contiguous axial imaging was performed from the skull base to vertex without intravenous administration of contrast. This CT examination was performed using dose optimization techniques as appropriate, variously including the following: *Automated exposure control *Adjustment of mA and/or kV according to patient size (this includes techniques or standardized protocols for targeted exams where dose is matched to indication/reason for exam; i.e. extremities or head) *Use of iterative reconstruction technique FINDINGS: There is no evidence of intracranial hemorrhage or extra-axial fluid collection. There is no mass effect, or edema. No CT evidence of acute territorial infarct. Ventricles, sulci, and cisterns are mildly prominent, especially involving the bilateral frontal lobes, age advanced. No hydrocephalus. No midline shift. Negative hyperdense MCA sign. Negative insular ribbon sign. Patchy periventricular and deep white matter hypoattenuation is consistent with mild small vessel ischemic changes. Tiny old lacunar infarcts noted in the anterior bilateral gangliocapsular regions. Normal pituitary. Mild atheromatous calcification of the bilateral carotid siphons and V4 segments vertebral arteries bilaterally. Globes and orbital contents image normally. No extracranial soft tissue abnormalities. Mild mucosal thickening in the dependent left maxillary antrum. The paranasal sinuses, mastoid air cells, and tympanic cavities are otherwise normally aerated. No suspicious bony abnormalities. There are no acute fractures evident. Mild hyperostosis frontalis of the calvarium. CT/CT head/brain wo IV con IMPRESSION: 1. No acute intracranial abnormalities. No fractures. 2. Chronic changes as discussed. Electronically signed by: Benoit Powell MD 11/03/2024 04:12 PM [facility]
--- OUTSIDE RECORDS SUMMARY | 2024-10-20 16:24 | XMS_ITS | Encounter Summary ---
Author Organization Address [address] [place] [address] Care Team Providers Care Tradeshow Worker Name Role Phone Namrata Prieto MD Primary Care Provider [phone] Encounter Details Date Type Department Care Team (Late st Contact Info) Description 09/19/2024 Lab Requisition [facility] - Main Lab [address] [facility] [place] [place] [address] Kailey Cook [address] [place] [address] [facility] [place] [facility] drug therapy Social History Tobacco Use Types Packs/Day Years Used Date Smoking Tobacco: Never Assessed Sex and Gender Information Value Date Recorded Sex Assigned at Male 10/19/2024 7:41 PM EST Legal Sex Male 9:50 PM EST Gender Identity Male 10/19/2024 7:41 PM EST Sexual Orientation Straight 10/19/2024 7: 41 PM EST documented as of this encounter Plan of Treatment Not on file documented as of this encounter Procedures Procedure Name Priority Date/Time Associated Diagnosis Comments URINALYSIS WITH REFLEX MICROSCOPIC AND CULTURE Routine 09/19/2024 7:00 AM EST [facility] [place] [facility] drug therapy URINALYSIS WITH REFLEX MICROSCOPIC AND CULTURE Routine 09/19/2024 7:00 AM EST Other termite treater helper (current) drug therapy documented in this encounter Results * Urinalysis with reflex microscopic and culture (09/19/2024 7:00 AM EST) Specific [place] Urine 1.007 1.003 - 1.030 LAB URINALYSIS - AUTOMATED METHOD 09/19/2024 10:25 AM [facility] LAB pH, Urine 5.0 5.0 - 8.0 pH LAB URINALYSIS - AUTOMATED METHOD 09/19/2024 10:25 AM [facility] Leukocytes, Urine Negative Negative LAB URINALYSIS - AUTOMATED METHOD 09/19/2024 10:25 AM [facility] Nitrite, Urine Negative Negative LAB URINALYSIS - AUTOMATED METHOD 09/19/2024 10:25 AM [facility] Protein, Urine Negative <=Trace mg/dL LAB URINALYSIS - AUTOMATED METHOD 09/19/2024 10:25 AM [facility] Glucose, Urine Negative Negative mg/dL LAB URINALYSIS - AUTOMATED METHOD 09/19/2024 10:25 AM [facility] Ketones, Urine Negative Negative mg/dL LAB URINALYSIS - AUTOMATED METHOD 09/19/2024 10:25 AM [facility] Urobilinogen, Urine 0.2 0.2 - 1.0 mg/dL LAB URINALYSIS - AUTOMATED METHOD 09/19/2024 10:25 AM [facility] Bilirubin, Urine Negative Negative LAB URINALYSIS - AUTOMATED METHOD 09/19/2024 10:25 AM [facility] Blood, Urine Negative Negative LAB URINALYSIS - AUTOMATED METHOD 09/19/2024 10:25 AM [facility] Urine Urine specimen obtained by clean catch procedure / Unknown Non-blood Collection / Unknown 09/19/2024 7:00 AM EST 09/19/2024 9:47 AM EST us Kailey Cook LAB URINE ORDERABLES Final Resul t [facility] [address] [place] [address], documented in this encounter Visit Diagnoses Diagnosis Other termite treater helper (current) drug therapy documented in this encounter Care Teams Tradeshow Worker Relationship Specialty Start Date End Date Namrata Prieto MD [address] [place] [id number] PCP - General Internal Medicine 10/19/24 documented as of this encounter
--- OUTSIDE RECORDS SUMMARY | 2024-10-20 16:25 | XMS_ITS | Encounter Summary ---
Author Organization [facility] Address [address] [place] [address] Care Team Providers Care Dividend Deposit Voucher Clerk Name Role Phone Namrata Prieto MD Primary Care Provider [phone] Encounter Details Date Type Department Care Team (Late st Contact Info) Description 10/07/2024 Lab Requisition [facility] Lab [address] [place] [address] [address] Other supervisor long goods (current) drug therapy Social History Tobacco Use [...] Procedure Name Priority Date/Time Associated Diagnosis Comments HIV 1 MOLECULAR STUDY QUANTITATIVE Routine 10/07/2024 7:00 AM EST Other [facility] (current) drug therapy documented in this encounter Results * (ABNORMAL) HIV 1 molecular study quantitative (10/07/2024 7:00 AM EST) Pathologist [facility] HIV-1 RNA Interpretation Detected (A) Not Detected LAB MOLECULAR DIAGNOSTICS METHOD 10/10/2024 2:53 PM EST [facility] HIV-1 RNA Copies 12,507(H ) <20 copies/mL LAB MOLECULAR DIAGNOSTICS METHOD 10/10/2024 2:53 PM EST [facility] LAB HIV-1 RNA Log 4.10(H) <1.30 Log 10 copies/mL LAB MOLECULAR DIAGNOSTICS METHOD 10/10/2024 2:53 PM EST [facility] Blood Venous blood specimen / Unknown Venipuncture / Unknown 10/07/2024 7:00 AM EST 10/07/2024 10:47 AM EST [facility] LAB BLOOD ORDERABLES Final Resul t [facility] [address] [place] [address], documented in this encounter Visit Diagnoses Diagnosis Other supervisor long goods (current) drug therapy documented in this encounter Care Teams Dividend Deposit Voucher Clerk Relationship Specialty Start Date End Date Namrata Prieto MD [address] [place] [address] PCP - General Internal Medicine 10/19/24 documented as of this encounter
--- OUTSIDE RECORDS SUMMARY | 2024-10-20 16:25 | XMS_ITS | Clinical Summary ---
Author Organization [facility] Address [address] [place] [address] Phone Care Team Providers Care Crisis Therapist Name Role Phone Namrata Prieto MD Primary Care Provider [phone] Allergies No known active allergies Medications traZODone (DESYREL) 50 mg tablet Take 1 tablet (50 mg total) by mouth at bedtime. Active sildenafiL (VIAGRA) 100 mg tablet Take 1 tablet (100 mg total) by mouth if needed. Active omeprazole (PriLOSEC) [address] capsule Take 1 capsule (40 mg total) by mouth 1 (one) time each day. 10/11/2024 Active OLANZapine (ZyPREXA) 15 mg tablet Take 1 tablet (15 mg total) by mouth. at bedtime. 10/16/2024 Active metFORMIN XR (GLUCOPHAGE-XR) 500 mg 24 hr tablet Take 1 tablet (500 mg total) by mouth 1 (one) time each day. 10/11/2024 Active melatonin 3 mg tablet Take 1 tablet (3 mg total) by mouth at bedtime. at bedtime Active hydrOXYzine pamoate (VISTARIL) 50 mg capsule 1 capsule (50 mg total) 4 (four) times a day if needed for anxiety. 10/11/2024 Active hydroCHLOROthia zide (HYDRODIURIL) 25 mg tablet Take 1 tablet (25 mg total) by mouth 1 (one) time each day. Active Trelegy Ellipta 200-62.5-25 mcg inhaler Inhale 1 puff (200 mcg total) by mouth 1 (one) time each day. 10/11/2024 Active DULoxetine (CYMBALTA) [address] capsule Take 2 capsules (120 mg total) by mouth 1 (one) time each day. 10/16/2024 Active cloNIDine (CATAPRES) 0.1 mg tablet Take 1 tablet (0.1 mg total) by mouth 3 (three) times a day if needed. 10/11/2024 Active Vitamin D3 25 mcg (1,000 unit) capsule Take 1 capsule (1,000 Units total) by mouth 1 (one) time each day. 10/11/2024 Active atorvastatin (LIPITOR) 80 mg tablet Take 1 tablet (80 mg total) by mouth 1 (one) time each day. Active aspirin 81 mg EC tablet Take 1 tablet (81 mg total) by mouth 1 (one) time each day. 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) (Primary Dx); Posttraumatic stress disorder; Polysubstance dependence including opioid type drug with complication, episodic abuse (CMS/HCC) Discharge Disposition: Psychiatric Hospital 10/07/2024 Lab Requisition [facility] - Main Lab [address] [place] [address] [facility] long line teamster (current) drug therapy 10/04/2024 Lab Requisition [facility] Main Lab [address] [place] [address] [facility] Other long line teamster (current) drug therapy 09/19/2024 Lab Requisition [facility] Main Lab [address] [place] [address] Kailey Cook Other fci (current) drug therapy 09/16/2024 Lab Requisition [facility] Main Lab [address] [place] [address] Physician, Pcp Unknown Other long line teamster (current) drug therapy 09/08/2024 11:08 PM EST - 09/08/2024 11:13 PM EST Emergency [facility] Emergency [address] [place] [address] Encounter for medical clearance for patient hold (Primary Dx) Discharge Disposition: Home or Self Care from Last 3 Months Medical History Medical History Date Comments Depression Social History Tobacco Use Types Packs/Day Years Used Date Smoking Tobacco: Never Smokeless Tobacco: Never Tobacco Cessation:Counseling Given: Not Answered Sex and Gender Information Value Date Recorded Sex Assigned at Male 10/19/2024 7:41 PM EST Legal Sex Male 9:50 PM EST Gender Identity Male 10/19/2024 7:41 PM EST Sexual Orientation Straight 10/19/2024 7: 41 PM EST Obstetrics History Last Filed Vital Signs Vital Sign Reading Time Taken Comments Blood Pressure 142/89 10/20/2024 2:47 PM EST Pulse 76 10/20/2024 2:47 PM EST Temperature 36.9 ??C (98.4 ??F) 10/20/2024 2:47 PM ES T Respiratory Rate 16 10/20/2024 2:47 PM EST Oxygen Saturation 96% 10/20/2024 2:47 PM EST Inhaled Oxygen Concentration - - Weight 104 kg (230 lb) 10/19/2024 7:09 PM EST Height 172.7 cm (5' 8 ) 10/19/2024 7:09 PM EST Body Mass Index 34.97 10/19/2024 7:09 PM EST Plan of Treatment Health Maintenance Due Date Last Done Comments Diabetes: Annual Foot Exam 1983 Diabetes: Annual Retina Eye Exam 1983 Hepatitis A Vaccines (1 of 2 - Risk 2-dose series) 1992 Hepatitis B Vaccines (1 of 3 - 19+ 3-dose series) 1992 Cholesterol Screening (Lipid Panel) 08/08/2022 Colorectal Cancer Screening: Colonoscopy 08/08/2022 Depression Screening 08/08/2022 Hepatitis C Screening 08/08/2022 Social Influencers of Health Screening 08/08/2022 COVID-19 Vaccine ( season) 2024 09/30/2021, 04/21/2021 Diabetes: Annual Urine Albumin-Creatinine Ratio (uACR) 09/09/2024 Diabetes: Blood Sugar Control Test (HGBA1C) 03/16/2025 09/16/2024 Diabetes: Annual GFR (Glomerular Filtration Rate) 10/19/2025 10/19/2024, 09/16/2024, 04/20/2023 Hypertension/CHF/CAD Annual BMP Blood Test 10/19/2025 10/19/2024, 09/16/2024, 04/20/2023 DTaP,Tdap,and Td Vaccines (2 - Td or Tdap) 09/30/2033 09/30/2023 Pneumococcal Vaccine: 50+ Years Completed 07/01/2023 Pneumococcal Vaccine: Pediatrics (0 to 5 Years) and At-Risk Patients (6 to 64 Years) Completed 07/01/2023 Zoster Vaccines Completed 01/03/2024, 09/30/2023 Influenza Vaccine Completed 08/24/2024, , 09/30/2021, Additional history exists Meningococcal ACWY Vaccine Aged Out 09/07/2024 N o longer eligible based on patient's age to complete this topic HIV Screening Completed 10/07/2024 HIB Vaccines Aged Out No longer eligi ble based on patient's age to complete this topic HPV Vaccines Aged Out No longer eligi ble based on patient's age to complete this topic IPV Vaccines Aged Out No longer eligi ble based on patient's age to complete this topic MMR Vaccines Aged Out No longer eligi ble based on patient's age to complete this topic Meningococcal B Vacine Aged Out No lo nger eligible based on patient's age to complete this topic RSV Immunization Patients Under 20 months Aged Out No longer eligible based on patient's age to complete this topic Varicella Vaccines Aged Out No longer eligible based on patient's age to complete this topic Procedures Procedure Name Priority Date/Time Associated Diagnosis Comments ECG 12-LEAD STAT 10/19/2024 10:54 PM EST CBC WITH AUTO DIFFERENTIAL STAT 10/19/2024 9:08 PM EST SALICYLATE LEVEL STAT 10/19/2024 9:08 PM EST ACETAMINOPHEN LEVEL STAT 10/19/2024 9 :08 PM EST ETHANOL STAT 10/19/2024 9:08 PM EST COMPREHENSIVE METABOLIC PANEL STAT 10/19/2024 9:08 PM EST CBC AND DIFFERENTIAL STAT 10/19/2024 9:08 PM EST METHADONE SCREEN, URINE STAT 10/19/2024 8:39 PM EST PHENCYCLIDINE, URINE STAT 10/19/2024 8:39 PM EST BUPRENORPHINE SCREEN, URINE STAT 10/19/2024 8:39 PM EST DRUG ABUSE SCREEN 8A PANEL, URINE STAT 10/19/2024 8:39 PM EST HIV 1 MOLECULAR STUDY QUANTITATIVE Routine 10/07/2024 7:00 AM EST Other long line teamster (current) drug therapy URINALYSIS WITH REFLEX MICROSCOPIC Routine 10/04/2024 7:00 AM EST Other fci (current) drug therapy URINALYSIS WITH REFLEX MICROSCOPIC Routine 10/04/2024 7:00 AM EST Other fci (current) drug therapy TRICHOMONAS, URINE Routine 10/04/2024 7: 00 AM EST Other fci (current) drug therapy CHLAMYDIA TRACHOMATIS AND NEISSERIA GONORRHOEAE PCR Routine 10/04/2024 7:00 AM EST Other long line teamster (current) drug therapy URINALYSIS WITH REFLEX MICROSCOPIC AND CULTURE Routine 09/19/2024 7:00 AM EST Other long line teamster (current) drug therapy URINALYSIS WITH REFLEX MICROSCOPIC AND CULTURE Routine 09/19/2024 7:00 AM EST Other fci (current) drug therapy COMPREHENSIVE METABOLIC PANEL Routine 09/16/2024 7:00 AM EST Other fci (current) drug therapy HEMOGLOBIN A1C Routine 09/16/2024 7:00 AM EST Other long line teamster (current) drug therapy from Last 3 Months Results * (ABNORMAL) CBC auto differential (10/19/2024 9:08 PM EST) [facility] WBC 6.6 4.8 - 10.8 K/mcL LAB HEMETOLOGY METHOD 10/19/2024 10:19 PM [facility] RBC 4.00(L) 4.50 - 5.50 M/mcL LAB HEMETOLOGY METHOD 10/19/2024 10:19 PM [facility] Hemoglobin 12.6(L) 13.5 - 17.5 g/dL LAB HEMETOLOGY METHOD 10/19/2024 10:19 PM [facility] Hematocrit 38.5(L) 42.0 - 54.0 % LAB HEMETOLOGY METHOD 10/19/2024 10:19 PM [facility] MCV 97.5 79.0 - 98.0 FL LAB HEMETOLOGY METHOD 10/19/2024 10:19 PM [facility] MCH 31.9 27.0 - 32.0 pcg LAB HEMETOLOGY METHOD 10/19/2024 10:19 PM [facility] MCHC 32.7 32.0 - 37.0 g/dL LAB HEMETOLOGY METHOD 10/19/2024 10:19 PM [facility] RDW 12.4 11.0 - 15.0 % LAB HEMETOLOGY METHOD 10/19/2024 10:19 PM [facility] Platelets 136 130 - 400 K/mcL LAB HEMETOLOGY METHOD 10/19/2024 10:19 PM [facility] MPV 10.1 7.0 - 11.0 FL LAB HEMETOLOGY METHOD 10/19/2024 10:19 PM [facility] NRBC 0.0 <1.0 % LAB HEMETOLOGY METHOD 10/19/2024 10:19 PM [facility] NRBC Absolute 0.00 <0.10 K/mcL LAB HEMETOLOGY METHOD 10/19/2024 10:19 PM [facility] Neutrophils Relative 45.9 % LAB HEMETOLOGY METHOD 10/19/2024 10:19 PM [facility] Lymphocytes Relative 37.2 % LAB HEMETOLOGY METHOD 10/19/2024 10:19 PM [facility] Monocytes Relative 13.4 % LAB HEMETOLOGY METHOD 10/19/2024 10:19 PM [facility] Eosinophils Relative 2.3 % LAB HEMETOLOGY METHOD 10/19/2024 10:19 PM [facility] Basophils Relative 0.6 % LAB HEMETOLOGY METHOD 10/19/2024 10:19 PM [facility] Immature Granulocytes Relative 0.6 % LAB HEMETOLOGY METHOD 10/19/2024 10:19 PM [facility] Neutrophils Absolute 3.01 1.50 - 7.00 K/mcL LAB HEMETOLOGY METHOD 10/19/2024 10:19 PM [facility] Lymphocytes Absolute 2.44 1.00 - 5.00 K/mcL LAB HEMETOLOGY METHOD 10/19/2024 10:19 PM [facility] Monocytes Absolute 0.88 0.20 - 1.00 K/mcL LAB HEMETOLOGY METHOD 10/19/2024 10:19 PM [facility] Eosinophils Absolute 0.15 0.00 - 0.50 K/mcL LAB HEMETOLOGY METHOD 10/19/2024 10:19 PM [facility] Basophils Absolute 0.04 0.00 - 0.20 K/mcL LAB HEMETOLOGY METHOD 10/19/2024 10:19 PM [facility] Immature Granulocytes Absolute 0.04(H) 0.00 - 0.03 K/mcL LAB HEMETOLOGY METHOD 10/19/2024 10:[address] [facility] Blood Venous blood specimen / Unknown Venipuncture / Unknown 10/19/2024 9:08 PM EST 10/19/2024 10:11 PM EST us Jesu Kaminski DO LAB BLOOD ORDERABLES Final Res ult Performing Organization Address [facility]/ZIP Co de Phone Number [facility] [address] [place] [address], [place] [phone] * Ethanol (10/19/2024 9:08 PM EST) Ethanol Level 3 0 - 10 mg/dL LAB CHEMISTRY METHOD 10/19/2024 10:[address] [facility] Blood Venous blood specimen / Unknown Venipuncture / Unknown 10/19/2024 9:08 PM EST 10/19/2024 10:11 PM EST us Jesu Kaminski DO LAB BLOOD ORDERABLES Final Res ult Performing Organization Address [facility] de Phone Number [facility] [address] [place] [address], [place] [phone] * (ABNORMAL) Acetaminophen level (10/19/2024 9:08 PM EST) Acetaminophen Level <2.0(L) 10.0 - 30.0 mcg/mL LAB CHEMISTRY METHOD 10/19/2024 10:[address] [facility] Blood Venous blood specimen / Unknown Venipuncture / Unknown 10/19/2024 9:08 PM EST 10/19/2024 10:11 PM EST us Jesu Kaminski DO LAB BLOOD ORDERABLES Final Res ult Performing Organization Address [facility]/ZIP Co de Phone Number [facility] [address] [place] [address], [place] [phone] * Salicylate level (10/19/2024 9:08 PM EST) [facility] Salicylate Level 2.9 2.0 - 29.0 mg/dL LAB CHEMISTRY METHOD 10/19/2024 10:[address] [facility] Blood Venous blood specimen / Unknown Venipuncture / Unknown 10/19/2024 9:08 PM EST 10/19/2024 10:11 PM EST us Jesu Kaminski DO LAB BLOOD ORDERABLES Final Res ult [facility] [address] [place] [address], [place] [phone] * (ABNORMAL) Comprehensive metabolic panel (10/19/2024 9:08 PM EST) Only the most recent of2 resultswithin the time period is included. [facility] Sodium 135 133 - 145 mmol/L LAB CHEMISTRY METHOD 10/19/2024 10:42 PM [facility] Potassium 4.1 3.5 - 5.5 mmol/L LAB CHEMISTRY METHOD 10/19/2024 10:42 PM [facility] Chloride 103 96 - 110 mmol/L LAB CHEMISTRY METHOD 10/19/2024 10:42 PM [facility] CO2 27 21 - 32 mmol/L LAB CHEMISTRY METHOD 10/19/2024 10:42 PM [facility] Anion Gap 5 3 - 11 LAB CHEMISTRY METHOD 10/19/2024 10:42 PM [facility] Glucose 58(L) 70 - 100 mg/dL LAB CHEMISTRY METHOD 10/19/2024 10:42 PM [facility] BUN 26(H) 5 - 25 mg/dL LAB CHEMISTRY METHOD 10/19/2024 10:42 PM [facility] Creatinine 1.08 0.70 - 1.30 mg/dL LAB CHEMISTRY METHOD 10/19/2024 10:42 PM [facility] eGFR 83 >=60 mL/min/1. 73m2 LAB CHEMISTRY METHOD 10/19/2024 10:42 PM [facility] Comment:Calculation based on the??Chronic Kidney Disease Epidemiology Collaboration (CKD-EPI) equation refit??without adjustment for race. BUN/Creatinine Ratio 24.1 LAB CHEMISTRY METHOD 10/19/2024 10:42 PM [facility] Calcium 9.4 8.5 - 10.5 mg/dL LAB CHEMISTRY METHOD 10/19/2024 10:42 PM [facility] AST (SGOT) 43(H) 10 - 42 unit/L LAB CHEMISTRY METHOD 10/19/2024 10:42 PM [facility] ALT (SGPT) 54 10 - 60 unit/L LAB CHEMISTRY METHOD 10/19/2024 10:42 PM [facility] Alkaline Phosphatase 108 42 - 121 unit/L LAB CHEMISTRY METHOD 10/19/2024 10:42 PM [facility] Total Protein 7.4 6.0 - 8.0 g/dL LAB CHEMISTRY METHOD 10/19/2024 10:42 PM [facility] Albumin 4.1 3.2 - 5.0 g/dL LAB CHEMISTRY METHOD 10/19/2024 10:42 PM [facility] Total Bilirubin 0.8 0.0 - 1.4 mg/dL LAB CHEMISTRY METHOD 10/19/2024 10:42 PM [facility] Blood Venous blood specimen / Unknown Venipuncture / Unknown 10/19/2024 9:08 PM EST 10/19/2024 10:11 PM EST us Jesu Kaminski DO LAB BLOOD ORDERABLES Final Res ult [facility] [address] [place] [address], * (ABNORMAL) Drug abuse screen 8a panel, urine (10/19/2024 8:39 PM EST) [facility] Amphetamine Screen, Ur Negative Negative LAB CHEMISTRY METHOD 5 10:44 PM [facility] Comment:Certain OTC medicati ons containing ephedrine, phenylephrine, pseudoephedrine and phenylpropanolamine can cause false positive results. Barbiturate Screen, Ur Negative Negative LAB CHEMISTRY METHOD 5 10:44 PM [facility] Benzodiazepine Screen, Ur Negative Negative LAB CHEMISTRY METHOD 5 10:44 PM [facility] Cocaine Screen, Ur Positive(A ) Negative LAB CHEMISTRY METHOD 5 10:44 PM [facility] Opiate Screen, Ur Positive(A ) Negative LAB CHEMISTRY METHOD 5 10:44 PM [facility] Cannabinoid (THC) Screen, Ur Negative Negative LAB CHEMISTRY METHOD 5 10:44 PM [facility] Comment:Specimens from patie nts taking pantoprazole sodium (Protonix) have been shown to produce false positive results. Oxycodone Screen, Ur Negative Negative LAB CHEMISTRY METHOD 5 10:44 PM [facility] Fentanyl, Ur Positive(A ) Negative LAB CHEMISTRY METHOD 5 10:44 PM [facility] Urine Urine specimen obtained by clean catch procedure / Unknown Non-blood Collection / Unknown 10/19/2024 8:39 PM EST 10/19/2024 10:12 PM EST [facility] - 10/19/2024 10:44 PM EST Assay cutoffs: Amphetamines ? 1000 ng/mL Barbiturates ?200 ng/mL Benzodiazepines ?? 200 ng/mL Cocaine ? 300 ng/mL Fentanyl ?1 ng/mL Opiates ? 300 ng/mL Oxycodone ? 100 ng/mL THC ?50 ng/mL Semi-quantitative assay for screening purposes only. Unconfirmed screening result should not be used for non-medical purposes. *ALTERNATE METHOD CONFIRMATION DONE UPON REQUEST ONLY* Jesu Kaminski DO LAB URINE ORDERABLES Final Res ult Performing Organization Address [facility] de Phone Number [facility] [address] [place] [address], * Buprenorphine screen, urine (10/19/2024 8:39 PM EST) [facility] Buprenorphine Screen Urine Negative Negative LAB CHEMISTRY METHOD 10/19/2024 10:[address] [facility] Urine Urine specimen obtained by clean catch procedure / Unknown Non-blood Collection / Unknown 10/19/2024 8:39 PM EST 10/19/2024 10:[address] [facility] - 10/19/2024 10:35 PM EST Assay cutoff 5 ng/mL Semi-quantitative assay for screening purposes only. Unconfirmed screening result should not be used for non-medical purposes. *ALTERNATE METHOD CONFIRMATION DONE UPON REQUEST ONLY* Jesu Kaminski DO LAB URINE ORDERABLES Final Res ult Performing Organization Address [facility] de Phone Number [facility] [address] [place] [address], * (ABNORMAL) Methadone, urine (10/19/2024 8:39 PM EST) Pathologist [facility] Methadone Screen, Urine Positive (A) Negative LAB CHEMISTRY METHOD 10/19/2024 10:[address] [facility] Comment: Assay cutoff 300 ng/mL Semi-quantitative assay for screening purposes only. Unconfirmed screening result should not be used for non-medical purposes. *ALTERNATE METHOD CONFIRMATION DONE UPON REQUEST ONLY* Urine Urine specimen obtained by clean catch procedure / Unknown Non-blood Collection / Unknown 10/19/2024 8:39 PM EST 10/19/2024 10:12 PM EST us Jesu Kaminski DO LAB URINE ORDERABLES Final Res ult Performing Organization Address [facility] de Phone Number [facility] [address] [place] [address], [place] [phone] * Phencyclidine, urine (10/19/2024 8:39 PM EST) Pathologist [facility] PCP Scrn, Ur Negative Negative LAB CHEMISTRY METHOD 10/19/2024 10:[address] [facility] Comment: Assay cutoff 25 ng/mL Semi-quantitative assay for screening purposes only. Unconfirmed screening result should not be used for non-medical purposes. *ALTERNATE METHOD CONFIRMATION DONE UPON REQUEST ONLY* Urine Urine specimen obtained by clean catch procedure / Unknown Non-blood Collection / Unknown 10/19/2024 8:39 PM EST 10/19/2024 10:12 PM EST us Jesu Kaminski DO LAB URINE ORDERABLES Final Res ult Performing Organization Address [facility] de Phone Number [facility] [address] [place] [address], [place] [phone] * (ABNORMAL) HIV 1 molecular study quantitative (10/07/2024 7:00 AM EST) Pathologist [facility] HIV-1 RNA Interpretation Detected (A) Not Detected LAB MOLECULAR DIAGNOSTICS METHOD 10/10/2024 2:[address] [facility] HIV-1 RNA Copies 12,507(H ) <20 copies/mL LAB MOLECULAR DIAGNOSTICS METHOD 10/10/2024 2:[address] [facility] HIV-1 RNA Log 4.10(H) <1.30 Log 10 copies/mL LAB MOLECULAR DIAGNOSTICS METHOD 10/10/2024 2:53 PM [facility] Blood Venous blood specimen / Unknown Venipuncture / Unknown 10/07/2024 7:00 AM EST 10/07/2024 10:47 AM EST us Dia Austin LAB BLOOD ORDERABLES Final Resul t [facility] [address] [place] [address], [place] [phone] * Urinalysis with reflex microscopic (10/04/2024 7:00 AM EST) [facility] Urine 1.017 1.003 - 1.030 LAB URINALYSIS - AUTOMATED METHOD 10/04/2024 12:14 PM [facility] pH, Urine 5.0 5.0 - 8.0 pH LAB URINALYSIS - AUTOMATED METHOD 10/04/2024 12:14 PM [facility] Leukocytes, Urine Negative Negative LAB URINALYSIS - AUTOMATED METHOD 10/04/2024 12:14 PM [facility] Nitrite, Urine Negative Negative LAB URINALYSIS - AUTOMATED METHOD 10/04/2024 12:14 PM [facility] Protein, Urine Negative <=Trace mg/dL LAB URINALYSIS - AUTOMATED METHOD 10/04/2024 12:14 PM [facility] Glucose, Urine Negative Negative mg/dL LAB URINALYSIS - AUTOMATED METHOD 10/04/2024 12:14 PM [facility] Ketones, Urine Negative Negative mg/dL LAB URINALYSIS - AUTOMATED METHOD 10/04/2024 12:14 PM [facility] Urobilinogen, Urine 0.2 0.2 - 1.0 mg/dL LAB URINALYSIS - AUTOMATED METHOD 10/04/2024 12:14 PM [facility] Bilirubin, Urine Negative Negative LAB URINALYSIS - AUTOMATED METHOD 10/04/2024 12:[address] [facility] Blood, Urine Negative Negative LAB URINALYSIS - AUTOMATED METHOD 10/04/2024 12:[address] [facility] Urine Urine specimen obtained by clean catch procedure / Unknown 10/04/2024 7:00 AM EST 10/04/2024 11:27 AM EST [facility] LAB URINE ORDERABLES Final Resul t Performing Organization Address City/[facility]/ZIP Co de Phone Number [facility] [address] [place] [address], [place] [phone] * Trichomonas, urine (10/04/2024 7:00 AM EST) Trichomonas, Urine None Seen None Seen 10/04/2024 1:[address] [facility] Urine Urine specimen obtained by clean catch procedure / Unknown 10/04/2024 7:00 AM EST 10/04/2024 11:27 AM EST [facility] MICROBIOLOGY - GENERAL ORDER AGUSTÍN Final Result Performing Organization Address City/[facility]/ZIP Co de Phone Number [facility] [address] [place] [address], [place] [phone] * Chlamydia trachomatis and Neisseria gonorrhoeae molecular study (10/04/2024 7:00 AM EST) Neisseria gonorrhoeae PCR Negative Negative LAB MOLECULAR DIAGNOSTICS METHOD 10/05/2024 9:[address] [facility] Chlamydia trachomatis PCR Negative Negative LAB MOLECULAR DIAGNOSTICS METHOD 10/05/2024 9:[address] [facility] Swab Urethral structure / Unknown 10/04/2024 7:00 AM EST 10/04/2024 11:27 AM EST [facility] LAB MICROBIOLOGY - GENERAL ORDER AGUSTÍN Final Result [facility] [address] [place] [address], [place] [phone] * Urinalysis with reflex microscopic and culture (09/19/2024 7:00 AM EST) [facility] Urine 1.007 1.003 - 1.030 LAB URINALYSIS - AUTOMATED METHOD 09/19/2024 10:25 AM [facility] pH, Urine 5.0 5.0 - 8.0 pH LAB URINALYSIS - AUTOMATED METHOD 09/19/2024 10:25 AM [facility] Leukocytes, Urine Negative Negative LAB URINALYSIS - AUTOMATED METHOD 09/19/2024 10:25 AM [facility] Nitrite, Urine Negative Negative LAB URINALYSIS - AUTOMATED METHOD 09/19/2024 10:25 AM [facility] Protein, Urine Negative <=Trace mg/dL LAB URINALYSIS - AUTOMATED METHOD 09/19/2024 10:25 AM [facility] Glucose, Urine Negative Negative mg/dL LAB URINALYSIS - AUTOMATED METHOD 09/19/2024 10:25 AM [facility] Ketones, Urine Negative Negative mg/dL LAB URINALYSIS - AUTOMATED METHOD 09/19/2024 10:25 AM [facility] Urobilinogen, Urine 0.2 0.2 - 1.0 mg/dL LAB URINALYSIS - AUTOMATED METHOD 09/19/2024 10:25 AM [facility] Bilirubin, Urine Negative Negative LAB URINALYSIS - AUTOMATED METHOD 09/19/2024 10:25 AM [facility] Blood, Urine Negative Negative LAB URINALYSIS - AUTOMATED METHOD 09/19/2024 10:25 AM [facility] Urine Urine specimen obtained by clean catch procedure / Unknown Non-blood Collection / Unknown 09/19/2024 7:00 AM EST 09/19/2024 9:47 AM EST us Kailey Cook LAB URINE ORDERABLES Final Resul t Performing Organization Address City/[facility]/ZIP Co de Phone Number [facility] [address] [place] [address], [place] [phone] * Hemoglobin A1c (09/16/2024 7:00 AM EST) Hemoglobin A1C 5.1 <6.5 % LAB CHEMISTRY METHOD 09/17/2024 1:[address] [facility] Mean Bld Glu Estim. 100 mg/dL LAB CHEMISTRY METHOD 09/17/2024 1:[address] [facility] Blood Venous blood specimen / Unknown Venipuncture / Unknown 09/16/2024 7:00 AM EST 09/16/2024 9:56 AM EST us Pcp Unknown Physician LAB BLOOD ORDERABLES Final Result Performing Organization Address [facility] Co de Phone Number [facility] [address] [place] [address], [place] [phone] from Last [address] [address] [address] [employer] Member Subscriber Plan / Payer (Ef fective 2022-Present) Name:Daniel Gilbert Relation to Subscriber:Self Name:Daniel Gilbert Payer ID:[id number] Group ID:[id number] Type:Not on file Address: [place] [address] [place] [address] Care Teams Crisis Therapist Relationship Specialty Start Date End Date Namrata Prieto MD [address] [place] [address] PCP - General Internal Medicine 10/19/24
--- OUTSIDE RECORDS SUMMARY | 2024-10-20 16:25 | XMS_ITS | Encounter Summary ---
Author Organization [facility] Address [address] [place] [address] Care Team Providers Care Vertical Mill Operator Name Role Phone Namrata Prieto MD Primary Care Provider [phone] Encounter Details Date Type Department Care Team (Late st Contact Info) Description 09/16/2024 Lab Requisition [facility] - Main Lab [address] [place] [address] Physician, Pcp Unknown Other bed bug exterminator (current) drug therapy Social History Tobacco Use [...] Procedure Name Priority Date/Time Associated Diagnosis Comments HEMOGLOBIN A1C Routine 09/16/2024 7:00 AM EST Other bed bug exterminator (current) drug therapy COMPREHENSIVE METABOLIC PANEL Routine 09/16/2024 7:00 AM EST Other bed bug exterminator (current) drug therapy documented in this encounter Results * (ABNORMAL) Comprehensive metabolic panel (09/16/2024 7:00 AM EST) Sodium 137 133 - 145 mmol/L LAB CHEMISTRY METHOD 09/16/2024 10:55 AM EST [facility] Potassium 4.0 3.5 - 5.5 mmol/L LAB CHEMISTRY METHOD 09/16/2024 10:55 AM [facility] Chloride 103 96 - 110 mmol/L LAB CHEMISTRY METHOD 09/16/2024 10:55 AM [facility] CO2 28 21 - 32 mmol/L LAB CHEMISTRY METHOD 09/16/2024 10:55 AM [facility] Anion Gap 6 3 - 11 LAB CHEMISTRY METHOD 09/16/2024 10:55 AM [facility] Glucose 82 70 - 100 mg/dL LAB CHEMISTRY METHOD 09/16/2024 10:55 AM [facility] BUN 15 5 - 25 mg/dL LAB CHEMISTRY METHOD 09/16/2024 10:55 AM [facility] Creatinine 1.11 0.70 - 1.30 mg/dL LAB CHEMISTRY METHOD 09/16/2024 10:55 AM [facility] eGFR 80 >=60 mL/min/1. 73m2 LAB CHEMISTRY METHOD 09/16/2024 10:55 AM [facility] Comment:Calculation based on the??Chronic Kidney Disease Epidemiology Collaboration (CKD-EPI) equation refit??without adjustment for race. BUN/Creatinine Ratio 13.5 LAB CHEMISTRY METHOD 09/16/2024 10:55 AM [facility] Calcium 10.3 8.5 - 10.5 mg/dL LAB CHEMISTRY METHOD 09/16/2024 10:55 AM [facility] AST (SGOT) 120(H) 10 - 42 unit/L LAB CHEMISTRY METHOD 09/16/2024 10:55 AM [facility] ALT (SGPT) 99(H) 10 - 60 unit/L LAB CHEMISTRY METHOD 09/16/2024 10:55 AM [facility] Alkaline Phosphatase 126(H) 42 - 121 unit/L LAB CHEMISTRY METHOD 09/16/2024 10:55 AM [facility] Total Protein 8.4(H) 6.0 - 8.0 g/dL LAB CHEMISTRY METHOD 09/16/2024 10:55 AM EST [facility] Albumin 4.3 3.2 - 5.0 g/dL LAB CHEMISTRY METHOD 09/16/2024 10:55 AM EST [facility] Total Bilirubin 0.6 0.0 - 1.4 mg/dL LAB CHEMISTRY METHOD 09/16/2024 10:55 AM EST [facility] Blood Venous blood specimen / Unknown Venipuncture / Unknown 09/16/2024 7:00 AM EST 09/16/2024 9:56 AM EST us Pcp Unknown Physician LAB BLOOD ORDERABLES Final Result [facility] [address] [place] [address], [place] [phone] * Hemoglobin A1c (09/16/2024 7:00 AM EST) Hemoglobin A1C 5.1 <6.5 % LAB CHEMISTRY METHOD 09/17/2024 1:38 PM EST [facility] Mean Bld Glu Estim. 100 mg/dL LAB CHEMISTRY METHOD 09/17/2024 1:38 PM EST [facility] Blood Venous blood specimen / Unknown Venipuncture / Unknown 09/16/2024 7:00 AM EST 09/16/2024 9:56 AM EST us Pcp Unknown Physician LAB BLOOD ORDERABLES Final Result [facility] [address] [place] [address], [place] [phone] documented in this encounter Visit Diagnoses Diagnosis Other bed bug exterminator (current) drug therapy documented in this encounter Care Teams Vertical Mill Operator Relationship Specialty Start Date End Date Namrata Prieto MD [address] [place] [id number] PCP - General Internal Medicine 10/19/24 documented as of this encounter
--- OUTSIDE RECORDS SUMMARY | 2024-10-20 16:25 | XMS_ITS | Encounter Summary ---
Author Organization [facility] Address [address] [place] [address] Care Team Providers Care Sash Finisher Name Role Phone Namrata Prieto MD Primary Care Provider [phone] Encounter Details Date Type Department Care Team (Late st Contact Info) Description 10/04/2024 Lab Requisition [facility] - Main Lab [address] [facility] [place] [address] [address] Other emt intermediate (current) drug therapy Social History Tobacco Use [...] Associated Diagnosis Comments URINALYSIS WITH REFLEX MICROSCOPIC Routine 10/04/2024 7:00 AM EST Other fpc (current) drug therapy URINALYSIS WITH REFLEX MICROSCOPIC Routine 10/04/2024 7:00 AM EST Other fpc (current) drug therapy TRICHOMONAS, URINE Routine 10/04/2024 7: 00 AM EST Other emt intermediate (current) drug therapy CHLAMYDIA TRACHOMATIS AND NEISSERIA GONORRHOEAE PCR Routine 10/04/2024 7:00 AM EST Other fpc (current) drug therapy documented in this encounter Results * Trichomonas, urine (10/04/2024 7:00 AM EST) Pathologist [facility] Trichomonas, Urine None Seen None Seen 10/04/2024 1:01 PM [facility] Urine Urine specimen obtained by clean catch procedure / Unknown 10/04/2024 7:00 AM EST 10/04/2024 11:27 AM EST [facility] LAB MICROBIOLOGY - GENERAL ORDER AGUSTÍN Final Result [facility] [address] [place] [address], [place] [phone] * Urinalysis with reflex microscopic (10/04/2024 7:00 AM EST) Pathologist [facility] Specific [place] Urine 1.017 1.003 - 1.030 LAB URINALYSIS - AUTOMATED METHOD 10/04/2024 12:14 PM [facility] pH, Urine 5.0 5.0 - 8.0 pH LAB URINALYSIS - AUTOMATED METHOD 10/04/2024 12:14 PM [facility] Leukocytes, Urine Negative Negative LAB URINALYSIS - AUTOMATED METHOD 10/04/2024 12:14 PM [facility] Nitrite, Urine Negative Negative LAB URINALYSIS - AUTOMATED METHOD 10/04/2024 12:14 PM [facility] Protein, Urine Negative <=Trace mg/dL LAB URINALYSIS - AUTOMATED METHOD 10/04/2024 12:14 PM [facility] Glucose, Urine Negative Negative mg/dL LAB URINALYSIS - AUTOMATED METHOD 10/04/2024 12:14 PM [facility] Ketones, Urine Negative Negative mg/dL LAB URINALYSIS - AUTOMATED METHOD 10/04/2024 12:14 PM [facility] Urobilinogen, Urine 0.2 0.2 - 1.0 mg/dL LAB URINALYSIS - AUTOMATED METHOD 10/04/2024 12:14 PM [facility] Bilirubin, Urine Negative Negative LAB URINALYSIS - AUTOMATED METHOD 10/04/2024 12:14 PM [facility] Blood, Urine Negative Negative LAB URINALYSIS - AUTOMATED METHOD 10/04/2024 12:14 PM [facility] Urine Urine specimen obtained by clean catch procedure / Unknown 10/04/2024 7:00 AM EST 10/04/2024 11:27 AM EST [facility] LAB URINE ORDERABLES Final Resul t Performing Organization Address City/[facility]/ZIP Co de Phone Number [facility] [address] [place] [address], [place] [phone] * Chlamydia trachomatis and Neisseria gonorrhoeae molecular study (10/04/2024 7:00 AM EST) Neisseria gonorrhoeae PCR Negative Negative LAB MOLECULAR DIAGNOSTICS METHOD 10/05/2024 9:29 AM [facility] Chlamydia trachomatis PCR Negative Negative LAB MOLECULAR DIAGNOSTICS METHOD 10/05/2024 9:29 AM [facility] Swab Urethral structure / Unknown 10/04/2024 7:00 AM EST 10/04/2024 11:27 AM EST [facility] LAB MICROBIOLOGY - GENERAL ORDER AGUSTÍN Final Result [facility] [address] [place] [address], [place] [phone] documented in this encounter Visit Diagnoses Diagnosis Other fpc (current) drug therapy documented in this encounter Care Teams Sash Finisher Relationship Specialty Start Date End Date Namrata Prieto MD [address] [place] [phone] PCP - General Internal Medicine 10/19/24 documented as of this encounter
--- OUTSIDE RECORDS SUMMARY | 2024-10-20 16:25 | XMS_ITS | Patient Health Record ---
Author Organization [facility] Leeann Ramiro Address [address] [place] [address] Care Team Providers Care Choker Setter Name Role Phone Namrata Prieto MD Primary Care Provider Unavailab Chris Chavez Unavailable [phone] Reason For Referral No Information Plan Of Treatment No Information Insurance Providers Payer Name Payer Address Payer Phone Subscriber Number Group Number Insured Name Patient Relationship to Insured Coverage Start Date Coverage End Date [facility] [employer] [place] [address] [place] [id number] Daniel Gilbert Self - patient is the insured
--- OUTSIDE RECORDS SUMMARY | 2024-10-20 16:25 | XMS_ITS ---
Author Organization [facility] Address [address] [place] [address] Care Team Providers Care Quality Technician Fiberglass Name Role Phone Namrata Prieto MD Primary Care Provider Unavailab Chris Chavez Unavailable [phone] Lowell Goins Unavailable [phone] REASON FOR VISIT SCREEN PRINTER HELPER Encounters Encounter Location Date Provider Diagnosis [facility] [address] [place] [address] 10/12/2023 Lowell Goins Plan Of Treatment No Information Progress Notes * Daniel BRITTDOB: [birth year] (48 yo M)Acc No.[id number]:10/12/2023 Patient:?Daniel Britt :1975???Age:48 Y???Sex:Male Address:[address] [place] [address] * true * Date:? Generated for Teetee monterroso/Jaciel/eTransmitting on:?10/20/2024 04:25 PM EST
--- OUTSIDE RECORDS SUMMARY | 2024-10-20 16:25 | XMS_ITS ---
Author Organization [facility] Address [address] [place] [address] Care Team Providers Care Information Systems Security Specialist Name Role Phone Conner QUEEN, Namrata Primary Care Provider Unavailab Chris Chavez Unavailable [phone] REASON FOR VISIT no PRE BILLING SPECIALIST ppwrk Encounters Encounter Location Date Provider Diagnosis [facility] [address] [address] 12/21/2023 Chris Peacock Plan Of Treatment No Information Progress Notes * Daniel OWENDOB:[birth year] (49 yo M)Acc No.[id number]:12/21/2023 Progress Notes Patient:?CHANDRAKANTKwan VALENTINEley Provider:?Chris Peacock DPM :1975???Age:48 Y???Sex:Male Anmol e:12/21/2023 Address:[address] [place], [place] [phone] Pcp:Namrata Prieto MD Subjective: * Chief Complaints: * ???1. no PRE BILLING SPECIALIST ppwrk. * Medical History:? Objective: * Vitals:? Assessment: Plan: * Treatment: * Images: * The named appointment provid er may or may not be the originator of this progress note, and it is not deemed complete until electronically signed by the appointment provider. Sign off status: Pending * Provider:?Chris Peacock DPM Date:? 024 Generated for Teetee monterroso/Jaciel/eTransmitting on:?10/20/2024 04:24 PM EST
--- OUTSIDE RECORDS SUMMARY | 2024-10-20 16:25 | XMS_ITS | Encounter Summary ---
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 ONLY* us Jesu Kaminski DO LAB URINE ORDERABLES Final Res ult Performing Organization Address [facility] Co de Phone Number [facility] [address] [place] [address], [place] [phone] * (ABNORMAL) Drug abuse screen 8a panel, urine (10/19/2024 8:39 PM EST) Amphetamine Screen, Ur Negative Negative LAB CHEMISTRY METHOD 10:44 PM EST [facility] Comment:Certain OTC medicati ons containing ephedrine, phenylephrine, pseudoephedrine and phenylpropanolamine can cause false positive results. Barbiturate Screen, Ur Negative Negative LAB CHEMISTRY METHOD 5 10:44 PM [facility] Benzodiazepine Screen, Ur Negative Negative LAB CHEMISTRY METHOD 5 10:44 PM [facility] Cocaine Screen, Ur Positive(A ) Negative LAB CHEMISTRY METHOD 5 10:44 PM [facility] Opiate Screen, Ur Positive(A ) Negative LAB CHEMISTRY METHOD 5 10:44 PM [facility] Cannabinoid (THC) Screen, Ur Negative Negative LAB CHEMISTRY METHOD 5 10:44 PM [facility] Comment:Specimens from patie nts taking pantoprazole sodium (Protonix) have been shown to produce false positive results. Oxycodone Screen, Ur Negative Negative LAB CHEMISTRY METHOD 5 10:44 PM [facility] Fentanyl, Ur Positive(A ) Negative LAB CHEMISTRY METHOD 5 10:44 PM [facility] Urine Urine specimen obtained by clean catch procedure / Unknown Non-blood Collection / Unknown 10/19/2024 8:39 PM EST 10/19/2024 10:12 PM EST [facility] - 10/19/2024 10:44 PM EST Assay cutoffs: Amphetamines ? 1000 ng/mL Barbiturates ?200 ng/mL Benzodiazepines ?? 200 ng/mL Cocaine ? 300 ng/mL Fentanyl ?1 ng/mL Opiates ? 300 ng/mL Oxycodone ? 100 ng/mL THC ?50 ng/mL Semi-quantitative assay for screening purposes only. Unconfirmed screening result should not be used for non-medical purposes. *ALTERNATE METHOD CONFIRMATION DONE UPON REQUEST ONLY* us Jesu Kaminski DO LAB URINE ORDERABLES Final Res ult [facility] [place] [place] ([facility]) [facility] [address] [facility] [place] [address], [place] [phone] documented in this encounter Visit Diagnoses Diagnosis Severe recurrent major depression with psychotic features (CMS/HCC)- Primary Major depressive disorder, recurrent episode, severe, specified as with psychotic behavior Posttraumatic stress disorder Polysubstance dependence including opioid type drug with complication, episodic abuse (CMS/HCC) documented in this encounter Administered Medications Active Administered Medications - up to 3 most recent administrations Medication Order MAR Action Action Date Dose Rate Site methadone (DOLOPHINE) tablet 20 mg 20 mg, oral, Daily, First dose on Wed10/20/24 at 0900, TOTAL DOSE = 140MG DAILY Given 10/20/2024 9:20 AM EST 20 mg methadone (METHADOSE) dispersible tablet 120 mg 120 mg, oral, Daily, First dose on Wed10/20/24 at 0900, TOTAL DOSE = 140MG DAILY Disperse total dose in ~120 mL of water, orange juice, or other acidic fruit beverage prior to administration; if insoluble excipients remain and do not entirely dissolve, add a small amount of liquid to cup and administer remaining mixture. Do not chew or swallow tablet before dispersing in liquid. Given 10/20/2024 9:20 AM EST 120 mg documented in this encounter Historical Medications * This list may reflect changes made after this encounter. aspirin 81 mg EC tablet Take 1 tablet (81 mg total) by mouth 1 (one) time each day. 10/11/2024 atorvastatin (LIPITOR) 80 mg tablet Take 1 tablet (80 mg total) by mouth 1 (one) time each day. Vitamin D3 25 mcg (1,000 unit) capsule Take 1 capsule (1,000 Units total) by mouth 1 (one) time each day. 10/11/2024 cloNIDine (CATAPRES) 0.1 mg tablet Take 1 tablet (0.1 mg total) by mouth 3 (three) times a day if needed. 10/11/2024 DULoxetine (CYMBALTA) [address] capsule Take 2 capsules (120 mg total) by mouth 1 (one) time each day. 10/16/2024 Trelegy Ellipta 200-62.5-25 mcg inhaler Inhale 1 puff (200 mcg total) by mouth 1 (one) time each day. 10/11/2024 hydroCHLOROthiazi de (HYDRODIURIL) 25 mg tablet Take 1 tablet (25 mg total) by mouth 1 (one) time each day. hydrOXYzine pamoate (VISTARIL) 50 mg capsule 1 capsule (50 mg total) 4 (four) times a day if needed for anxiety. 10/11/2024 melatonin 3 mg tablet Take 1 tablet (3 mg total) by mouth at bedtime. at bedtime metFORMIN XR (GLUCOPHAGE-XR) 500 mg 24 hr tablet Take 1 tablet (500 mg total) by mouth 1 (one) time each day. 10/11/2024 OLANZapine (ZyPREXA) 15 mg tablet Take 1 tablet (15 mg total) by mouth. at bedtime. 10/16/2024 omeprazole (PriLOSEC) [address] capsule Take 1 capsule (40 mg total) by mouth 1 (one) time each day. 10/11/2024 sildenafiL (VIAGRA) 100 mg tablet Take 1 tablet (100 mg total) by mouth if needed. traZODone (DESYREL) 50 mg tablet Take 1 tablet (50 mg total) by mouth at bedtime. added in this encounter Active and Recently Administered Medications Times are shown in EST. Scheduled Medication Order 10/18/2024 10/19/2024 10/20/2024 methadone (DOLOPHINE) tablet 20 mg(Linked Group 1) 20 mg, oral, Daily, First dose on Wed10/20/24 at 0900, TOTAL DOSE = 140MG DAILY 0920 (Given - Provid er: Yudith Mukherjee RN) methadone (METHADOSE) dispersible tablet 120 mg(Linked Group 1) 120 mg, oral, Daily, First dose on Wed10/20/24 at 0900, TOTAL DOSE = 140MG DAILY Disperse total dose in ~120 mL of water, orange juice, or other acidic fruit beverage prior to administration; if insoluble excipients remain and do not entirely dissolve, add a small amount of liquid to cup and administer remaining mixture. Do not chew or swallow tablet before dispersing in liquid. 0920 (Given - Provid er: Yudith Mukherjee RN) Linked Groups Order Group 1: methadone (METHADOSE) dispersible tablet 120 mgJump to med 120 mg, oral, Daily, First dose on Wed10/20/24 at 0900, TOTAL DOSE = 140MG DAILY Disperse total dose in ~120 mL of water, orange juice, or other acidic fruit beverage prior to administration; if insoluble excipients remain and do not entirely dissolve, add a small amount of liquid to cup and administer remaining mixture. Do not chew or swallow tablet before dispersing in liquid. And methadone (DOLOPHINE) tablet 20 mgJump to med 20 mg, oral, Daily, First dose on Wed10/20/24 at 0900, TOTAL DOSE = 140MG DAILY documented in this encounter Orders Medications Ordered That Misha ht Not Have Been Administered Count Last Ordered Date First Ordered Date methadone (METHADOSE) disper sible tablet 140 mg 1 10/20/2024 Diet Count Last Ordered Date First Orde red Date ADULT DIET 1 10/20/2024 Consult Count Last Ordered Date First Orde red Date IP CONSULT TO REFRIGERATING ENGINEER 1 10/19/2024 Precaution Count Last Ordered Date First Orde red Date SUICIDE PRECAUTIONS 1 10/19/2024 Privilege Level Count Last Ordered Date First O rdered Date PATIENT MANAGER ANALYTICAL 1 10/20/2024 documented in this encounter Care Teams Gymnas[employer] Teacher Relationship Specialty Start Date End Date Namrata Prieto MD [address] [place] [phone] PCP - General Internal Medicine 10/19/24 documented as of this encounter
[2024-10-20 16:46] VITALS: BP 165/90; PULSE 52; TEMP 36.4; O2SAT 94
[2024-10-20 16:49] VITALS: BMI 32.5
--- NOTE | 2024-10-20 19:21 | PC.ADMIT ---
Daniel is admitted to [facility] today on a CV. He is admitted for Depression with SI. He self-presented to [facility] ED with increased depression & SI. Pt states that if he were going to kill himself he would either hang himself or overdose. Kwan reports that he attempted to hang himself 3 months ago. He currently endorses SI, but he came to hospital for help. He doesn't want to feel this way. He denies HI/AVH. Kwan is alert and oriented X4, pleasant & cooperative with good eye contact. Mood is depressed. Skin check done & there is a nickel size ulcer noted on the ball of his left foot, no drainage, no redness.?Kwan is diabetic & does not see a cna instructor. He wasn't aware of this foot ulcer. We will keep site clean & covered until wound nurse can see & recommend treatment. Kwan is homeless but has stable people he can stay with, currently stays with his brother. Kwan signed releases, was oriented to the unit & placed on 15min safety checks.
[2024-10-20 20:00] VITALS: BP 141/65; PULSE 56; TEMP 36.1; O2SAT 95
[2024-10-20] MEDS: Melatonin 3 MG TABLET PO (22:21)
[2024-10-20] MEDS: OLANZapine 7.5 MG TABLET 22.5 MG PO (22:21)
[2024-10-20] MEDS: traZODone HCL 50 MG TABLET PO (22:22)
[2024-10-20] MEDS: Acetaminophen 325 MG TABLET 650 MG PO (22:22)
[2024-10-20 22:23] VITALS: BP 152/74
[2024-10-20] MEDS: cloNIDine HCL 0.1 MG TABLET PO (22:23)
--- NOTE | 2024-10-21 | ECG_ITS ---
Test Reason : Prolonged QT prior to admit, need re-eval Blood Pressure : */* mmHG Vent. Rate : 50 BPM Atrial Rate : 50 BPM P-R Int : 152 ms QRS Dur : 96 ms QT Int : 524 ms P-R-T Axes : 29 -8 26 degrees QTcB Int : 477 ms Sinus bradycardia Minimal voltage criteria for LVH, may be normal variant ( R in aVL ) Nonspecific T wave abnormality Prolonged QT Abnormal ECG When compared with ECG of 12-Jul-2023 16:21, Nonspecific T wave abnormality now evident in Anterior leads Referred By: Mague Dixon Electronically Signed By: YANCY NICOLE MD
[2024-10-21] MEDS: Omeprazole 40 MG CAPSULE.DR PO ×2 (06:57→17:20)
--- NOTE | 2024-10-21 08:00 | HE.PHANOTE ---
METHADONE Dose: 140mg, last dosed at [facility] on 10/20/24 per sheet from [facility] from ED department. [facility] [place], last dose there on 10/19/24.
[2024-10-21 08:06] VITALS: BP 146/88; PULSE 57; TEMP 36.3; O2SAT 100
[2024-10-21] MEDS: methADONE HCl 20 MG/2 ML ORAL.CONC 140 MG PO (08:40)
[2024-10-21] MEDS: hydroCHLOROthiazide 25 MG TABLET PO (08:42)
[2024-10-21] MEDS: Valsartan 80 MG TABLET PO (08:42)
[2024-10-21] MEDS: Aspirin 81 MG TAB.CHEW PO (08:42)
[2024-10-21] MEDS: Cholecalciferol (Vitamin D3) 25 MCG TABLET PO (08:42)
[2024-10-21] MEDS: Atorvastatin Calcium 80 MG TABLET PO (08:42)
[2024-10-21] MEDS: DULoxetine HCl 60 MG CAPSULE.DR 120 MG PO (08:42)
[2024-10-21] MEDS: Fluticasone/Umeclidinium/Vilanterol 100/62.5/25 BLST.W.DEV 1 PUFF INHALE (09:21)
--- NOTE | 2024-10-21 09:26 | P.HPPS_ITS ---
HPI Date of Service: 10/21/24 Chief Complaint: Major depressive d/o PTSD Opioid Use Disorder Mode Sources of Information: patient interviewed, chart reviewed and crisis/core team assessment reviewed HPI Subjective Notes: May Warning Healthcare Proxy: No Guardianship: No Medical Problems Affecting Mental Status: No Narrative: 49 yo male, hx of polysubstance use disorder,bipolar disorder with depression, PTSD, Panic Disorder, SI with a plan to hang himself or OD on IV Fentanyl transfer from [facility]. Pt reports no hx of attempts, however wanting to come in for help before he acted on these thoughts. Reports auditory perceptual alterations when he experiences high tension/stress. SI has been persistent for the past few months. Pt willing to meet, I am really sick of living . One week I am OK then I am not . Anxiety and depression are high . Reports he had been clean for 15 months, I do drugs just to do drugs . Wants a therapist and prescriber, wants to not hang out with the wrong people . States social anxiety is a big factor in sx mgt- cannot manage public situations and has panic sx. Reports by history Thorazine has been very helpful. We will trial a prn Past Psychiatric History: IP:affirms OP:None currently History of suicide attempts Medical Evaluation Reviewed: Hospitalist Jose Carlos Pending [facility] Medical History (Updated 10/21/24 @ 15:22 by Mague Dixon, BEAVER TRAPPER) PTSD (post-traumatic stress disorder) Bipolar disorder with psychotic features Polysubstance use disorder COPD with emphysema Cocaine abuse Tobacco abuse Methadone maintenance therapy patient Opioid use disorder History of HIV or AIDS History of cryptococcal meningitis HIV (human immunodeficiency virus infection) Substance abuse HIV (human immunodeficiency virus infection) Narrative: Foot ulcer from DM- wound consult ordered Social History: Lives with a friend, stays with brother some times (Jesu Parra [phone]) Substance History: Tox positive for opiates, methadone, cocaine, [facility] Tra[facility] History: childhood trauma of his girlfriend Diagnostics Vital Signs (24Hr): Vital Signs - 24 hr 10/20/24 16:46 10/20/24 20:00 10/20/24 22:23 Temperature 97.6 F 97.0 F Pulse Rate 52 56 Blood Pressure 165/90 H 141/65 H 152/74 H Pulse Oximetry 94 95 Oxygen Delivery Method Room Air Room Air 10/21/24 08:06 Temperature 97.4 F Pulse Rate 57 Blood Pressure 146/88 H Pulse Oximetry 100 Oxygen Delivery Method Room Air BMI result Body Mass Index 32.5 Labs Labs: CBCD 10/19 WNL CMP 10/19 WNL EKG EKG Comment: 10/19/24- sinus bradycardia, prolonged QT 492, Meds/Allergies Meds Home Medications ?Medication ?Instructions ?Recorded ?Confirmed ?Type sildenafil 100 mg tablet 1 tab PO DAILY PRN Sexual Activity 02/11/21 10/20/24 History aspirin 81 mg tablet,delayed 81 mg PO DAILY 10/20/24 10/20/24 History release atorvastatin 80 mg tablet 80 mg PO DAILY 10/20/24 10/20/24 History cholecalciferol (vitamin D3) 25 25 mcg PO DAILY 10/20/24 10/20/24 History mcg (1,000 unit) capsule (Vitamin D3) clonidine HCl 0.1 mg tablet 0.1 mg PO TID PRN anxiety 10/20/24 10/20/24 History duloxetine 60 mg capsule,delayed 120 mg PO DAILY 10/20/24 10/20/24 History release fluticasone fur. 200 mcg-umeclid 1 ea inhalation DAILY 10/20/24 10/20/24 History 62.5 mcg-vilant 25 mcg inhalat.powder (Trelegy Ellipta) hydrochlorothiazide 25 mg tablet 25 mg PO DAILY 10/20/24 10/20/24 History hydroxyzine pamoate 50 mg capsule 50 mg PO Q4H PRN Anxiety 10/20/24 10/20/24 History melatonin 3 mg tablet 3 mg PO BEDTIME 10/20/24 10/20/24 History metformin 500 mg tablet,extended See Rx Instructions .Route .COMPLEX 10/20/24 10/20/24 History release 24 hr methadone 10 mg/mL oral 140 mg PO DAILY 10/20/24 10/20/24 History concentrate (Methadone Intensol) olanzapine 15 mg tablet 15 mg PO BEDTIME 10/20/24 10/20/24 History olanzapine 7.5 mg tablet 7.5 mg PO BEDTIME 10/20/24 10/20/24 History olmesartan 20 mg tablet 20 mg PO DAILY 10/20/24 10/20/24 History omeprazole 40 mg capsule,delayed 40 mg PO BID 10/20/24 10/20/24 History release omeprazole 40 mg capsule,delayed 40 mg PO BID 10/20/24 10/20/24 History release trazodone 50 mg tablet 50 - 100 mg PO BEDTIME 10/20/24 10/20/24 History bictegravir 50 mg-emtricitabine 1 tab PO DAILY 10/21/24 10/21/24 History 200 mg-tenofovir alafenam 25 mg tablet (Biktarvy) docusate sodium 100 mg capsule 100 mg PO BID PRN constipation 10/21/24 10/21/24 History dulaglutide 1.5 mg/0.5 mL See Rx Instructions .Route .COMPLEX 10/21/24 10/21/24 History subcutaneous pen injector (Trulicity) naloxegol 25 mg tablet (Movantik) 25 mg PO QAM 10/21/24 10/21/24 History sennosides 8.6 mg tablet (senna) 8.6 - 17.2 mg PO BEDTIME PRN 10/21/24 10/21/24 History constipation Allergies Allergies Allergy/AdvReac Type Severity Reaction Status Date / Time latex [LATEX] Allergy Unknown UNKNOWN Verified 02/09/21 03:06 From PERCOCET Allergy Unknown UNKNOWN Uncoded 02/09/21 03:06 Mental Status Exam Mental Status Exam Patient Appearance: Appropriate Patient Orientation: Person, Place, Time and Situation Level of Consciousness: Alert Patient Behavior: Talkative and Good Eye Contact Mood Description: Withdrawn and Depressed Affect Description: Flat Patient Cognition Impaired: No Ability to Follow Directions: Good Speech Pattern: Spontaneous Speech Memory Description: Intact Hallucinations: None Delusions: Not Present Thought Process: Goal Oriented Thought Content: positive for Goal Oriented and positive for Suicidal Ideation (denies today) Depressive Symptoms: Increased Anxiety and Thoughts of /Suicide (denies today) Judgement: Fair Assessment & Plan Assessment & Plan (1) Polysubstance use disorder: Status: Acute Code(s): F19.90 - Other psychoactive substance use, unspecified, uncomplicated (2) Bipolar disorder with psychotic features: Status: Acute Code(s): F31.9 - Bipolar disorder, unspecified (3) PTSD (post-traumatic stress disorder): Status: Acute Code(s): F43.10 - Post-traumatic stress disorder, unspecified Plan Admit, 15 minute checks Re-establish regime Collateral contact as needed Encourage milieu participation Diagnostics as needed Wound consult-foot Triamcinolone cream-underarm rash Chlorpromazine trial prn (pt reports very helpful by hx for sx mgt) Patient educated on: medication risk/benefits, substance abuse and therapeutic strategies Reason for continued inpatient stay Substantial Risk for: rapid decompensation Statement Statement: I have reviewed the history and physical and performed a pertinent examination on my patient. No changes have occurred unless specified. If the History and Physical was not performed prior to admission, the Hospitalist's service will be consulted for completing the admission physical. Time Spent With Patient Time: Total time managing care of this patient today ____ minutes.
[2024-10-21 09:31] LABS: Estimated Average Glucose 134 mg/dL; Hemoglobin A1C 157.5198 umol/L; Hemoglobin A1c % 6.3 % (<6.0); Total Hemoglobin (HGBA1C) 3511.6722 umol/L
[2024-10-21 09:37] LABS: Cholesterol 140 mg/dL (<200); HDL Cholesterol 21 mg/dL (>40); LDL Cholesterol Calculated 84 mg/dL (<100); Magnesium 2.2 mg/dL (1.6-2.6); Triglycerides 176 mg/dL (<150)
[2024-10-21 09:58] LABS: Free T4 (Free Thyroxine) 1.08 ng/dL (0.71-1.85); Thyroid Stimulating Hormone 0.96 uIU/mL (0.32-4.0)
[2024-10-21] MEDS: Nicotine 21 MG PATCH.TD24 TRANSDERMA (11:06)
[2024-10-21] MEDS: Nicotine Polacrilex Lozenge 4 MG LOZENGE BUCCAL (11:08)
--- NOTE | 2024-10-21 12:38 | HO.PM.IMCN ---
History of Present Illness Data of Consult Service Date: 10/21/24 Primary Care Provider: Unknown Physician HPI Reason for consult: Admission H&P Pt is a 49-year-old male with a PMH significant for?COPD, HTN, [id number] type 2 diabetes, HIV, hx of cryptococcal meningitis, GERD, polysubstance use disorder on methadone who is admitted to [facility] psychiatry unit for increasing depression, auditory hallucinations, I stress, and SI with plan to hang himself and/or overdose on fentanyl. Medical consult for admission H&P. ?Pt complains of pruritic rash under his right arm that began a few days ago. Denies pain. Pt also reports bleeding and pain on the bottom of his left foot after bumping it while walking. Denies fever or chills. Pt states he stopped taking his Biktarvy 2 weeks ago after feeling increasingly depressed and not wanting to take care of himself. Prior to that reports compliance with Biktarvy and follows regularly with ID outpatient. Denies chest pain/pressure, palpitations. No nausea, vomiting, abdominal pain. Denies headache or acute vision changes. Review of Systems Review of Systems: Negative except for that which is stated in the HPI [facility] Medical History COPD with emphysema Cocaine abuse Tobacco abuse Methadone maintenance therapy patient Opioid use disorder History of HIV or AIDS History of cryptococcal meningitis HIV (human immunodeficiency virus infection) Substance abuse HIV (human immunodeficiency virus infection) Family History Other CAD (coronary artery disease) CHF (congestive heart failure) Social History Household Members: Family Housing: Apartment Do you presently have visiting nurse or other home services: No Comment: 1:1 sitter Patient Tobacco Use Status: Current everyday Tobacco user Tobacco use type: Cigarette Cigarette Packs Per Day: 1 Cigarettes Per Day: 20.0 Smoked in Last 30 Days: Yes Patient Interested in Nicotine Replacement: Yes Patient Given Instructions on How to Stop Smoking: No Second Hand Smoke Exposure: No Use of substances other than those prescribed or required for medical reasons: Yes Substance Use Type: Crack/Cocaine and Heroin Substance Use Frequency: Weekly Last Used Substance: Just Prior to Admission Currently Displaying Signs/Symptoms of Drug Intoxication Withdrawal: No Any prior treatment program specific to substance use: Yes (Did a program & was 15 months clean. Started using again 2 months ago) Do you feel safe in your current relationship?: No Current Relationship Is there a partner from a previous relationship who is making you feel unsafe now?: No Are you made to feel afraid or neglected: No Advance Directives: No Advance Directives Information Provided: No Do you have thoughts of harming others: None Do you have a plan to hurt others: No Plan Recently lost weight without trying: No Eating poorly because of decreased appetite: No Nutrition Risks: No Nutritional Risk Poor oral hygiene: No service: No Meds Allergies Allergy/AdvReac Type Severity Reaction Status Date / Time latex [LATEX] Allergy Unknown UNKNOWN Verified 02/09/21 03:06 From PERCOCET Allergy Unknown UNKNOWN Uncoded 02/09/21 03:06 Active Medications: Current Medications Acetaminophen (Acetaminophen 325 Mg Tablet) 650 mg PO Q6H PRN PRN Reason: Headache/Pain, Scale 1-10 Last Admin: 10/20/24 22:22 Dose: 650 mg Al Hydroxide/Mg Hydroxide (Magnesium Hydrox/Alum Hydrox 30 Ml Oral.Susp) 30 ml PO Q6H PRN PRN Reason: Heartburn/Nausea Aspirin (Aspirin 81 Mg Tab.Chew) 81 mg PO DAILY [facility] Last Admin: 10/21/24 08:42 Dose: 81 mg Atorvastatin Calcium (Atorvastatin Calcium 80 Mg Tablet) 80 mg PO DAILY [facility] Last Admin: 10/21/24 08:42 Dose: 80 mg Clonidine HCl (Clonidine Hcl 0.1 Mg Tablet) 0.1 mg PO TID PRN; Protocol PRN Reason: severe anxiety Last Admin: 10/20/24 22:23 Dose: 0.1 mg Duloxetine HCl (Duloxetine Hcl 60 Mg Capsule.Dr) 120 mg PO DAILY [facility] Last Admin: 10/21/24 08:42 Dose: 120 mg Fluticasone/Umeclidinium/Vilanterol (Fluticasone/Umeclidinium/Vilanterol 100/62.5/25 Blst.W.Dev) 1 puff INHALE RDAILY [facility] Last Admin: 10/21/24 09:21 Dose: 1 puff Hydrochlorothiazide (Hydrochlorothiazide 25 Mg Tablet) 25 mg PO DAILY [facility]; Protocol Last Admin: 10/21/24 08:42 Dose: 25 mg Hydroxyzine HCl (Hydroxyzine Hcl 25 Mg Tablet) 25 mg PO Q6H PRN PRN Reason: mild anxiety Magnesium Hydroxide (Milk Of Magnesia 30 Ml Oral.Susp) 30 ml PO DAILY PRN PRN Reason: Constipation Melatonin (Melatonin 3 Mg Tablet) 3 mg PO BEDTIME [facility] Last Admin: 10/20/24 22:21 Dose: 3 mg Methadone HCl (Methadone Hcl 20 Mg/2 Ml Oral.Conc) 140 mg PO DAILY@0800 [facility] Last Admin: 10/21/24 08:40 Dose: 140 mg Nicotine (Nicotine 21 Mg Patch.Td24) 21 mg TRANSDERMA DAILY [facility] Last Admin: 10/21/24 11:06 Dose: 21 mg Nicotine Polacrilex (Nicotine Polacrilex Lozenge 4 Mg Lozenge) 4 mg BUCCAL Q2H PRN PRN Reason: Nicotine Cravings Last Admin: 10/21/24 11:08 Dose: 4 mg Olanzapine (Olanzapine 7.5 Mg Tablet) 22.5 mg PO BEDTIME [facility] Last Admin: 10/20/24 22:21 Dose: 22.5 mg Omeprazole (Omeprazole 40 Mg Capsule.Dr) 40 mg PO BID@0630,1630 [facility] Last Admin: 10/21/24 06:57 Dose: 40 mg Trazodone HCl (Trazodone Hcl 50 Mg Tablet) 50 mg PO BEDTIME MRX1 PRN PRN Reason: Insomnia Last Admin: 10/20/24 22:22 Dose: 50 mg Valsartan (Valsartan 80 Mg Tablet) 80 mg PO DAILY [facility] Last Admin: 10/21/24 08:42 Dose: 80 mg Vitamin D (Cholecalciferol (Vitamin D3) 25 Mcg Tablet) 25 mcg PO DAILY [facility] Last Admin: 10/21/24 08:42 Dose: 25 mcg Home Medications ?Medication ?Instructions ?Recorded ?Confirmed ?Last Taken ?Type sildenafil 100 mg tablet 1 tab PO DAILY PRN Sexual Activity 02/11/21 10/20/24 Unknown History aspirin 81 mg tablet,delayed 81 mg PO DAILY 10/20/24 10/20/24 Unknown History release atorvastatin 80 mg tablet 80 mg PO DAILY 10/20/24 10/20/24 Unknown History cholecalciferol (vitamin D3) 25 25 mcg PO DAILY 10/20/24 10/20/24 Unknown History mcg (1,000 unit) capsule (Vitamin D3) clonidine HCl 0.1 mg tablet 0.1 mg PO TID PRN anxiety 10/20/24 10/20/24 Unknown History duloxetine 60 mg capsule,delayed 120 mg PO DAILY 10/20/24 10/20/24 Unknown History release fluticasone fur. 200 mcg-umeclid 1 ea inhalation DAILY 10/20/24 10/20/24 Unknown History 62.5 mcg-vilant 25 mcg inhalat.powder (Trelegy Ellipta) hydrochlorothiazide 25 mg tablet 25 mg PO DAILY 10/20/24 10/20/24 Unknown History hydroxyzine pamoate 50 mg capsule 50 mg PO Q4H PRN Anxiety 10/20/24 10/20/24 Unknown History melatonin 3 mg tablet 3 mg PO BEDTIME 10/20/24 10/20/24 Unknown History metformin 500 mg tablet,extended See Rx Instructions .Route .COMPLEX 10/20/24 10/20/24 Unknown History release 24 hr methadone 10 mg/mL oral 140 mg PO DAILY 10/20/24 10/20/24 10/20/24 09:20 History concentrate (Methadone Intensol) 140 olanzapine 15 mg tablet 15 mg PO BEDTIME 10/20/24 10/20/24 Unknown History olanzapine 7.5 mg tablet 7.5 mg PO BEDTIME 10/20/24 10/20/24 Unknown History olmesartan 20 mg tablet 20 mg PO DAILY 10/20/24 10/20/24 Unknown History omeprazole 40 mg capsule,delayed 40 mg PO BID 10/20/24 10/20/24 Unknown History release omeprazole 40 mg capsule,delayed 40 mg PO BID 10/20/24 10/20/24 Unknown History release trazodone 50 mg tablet 50 - 100 mg PO BEDTIME 10/20/24 10/20/24 Unknown History bictegravir 50 mg-emtricitabine 1 tab PO DAILY 10/21/24 10/21/24 Unknown History 200 mg-tenofovir alafenam 25 mg tablet (Biktarvy) docusate sodium 100 mg capsule 100 mg PO BID PRN constipation 10/21/24 10/21/24 Unknown History dulaglutide 1.5 mg/0.5 mL See Rx Instructions .Route .COMPLEX 10/21/24 10/21/24 Unknown History subcutaneous pen injector (Trulicity) naloxegol 25 mg tablet (Movantik) 25 mg PO QAM 10/21/24 10/21/24 Unknown History sennosides 8.6 mg tablet (senna) 8.6 - 17.2 mg PO BEDTIME PRN 10/21/24 10/21/24 Unknown History constipation Physical Exam Vital Signs and Narrative: Vital Signs: Last Vital Signs Temp 97.4 F 10/21/24 08:06 Pulse 57 10/21/24 08:06 BP 146/88 H 10/21/24 08:06 Pulse Ox 100 10/21/24 08:06 O2 Del Method Room Air 10/21/24 08:06 BMI result Body Mass Index 32.5 General: AOx3, no acute distress Resp: CTA bilaterally CVS: S1, S2, RRR GI: +BS, NT, no distention Skin: Erythematous confluent rash under right arm Neuro: Cranial nerves II-XII grossly intact bilaterally. Motor grossly intact bilaterally Extremities: No edema. Dorsal aspect of left foot with dry, callus, and cracked skin with small amount of dried blood. No clear sign infection. As pictured below Psych: Flat affect Results Labs Labs: Laboratory Results - last 24 hr 10/21/24 08:52 Estimat Average Glucose 134 Hemoglobin A1c % 6.3 H Magnesium 2.2 Triglycerides 176 H Cholesterol 140 LDL Cholesterol, Calc 84 HDL Cholesterol 21 L TSH 0.96 Free T4 1.08 Assessment and Plan (1) Medical clearance for psychiatric admission: Status: Acute Plan Pt is a 49-year-old male with a PMH significant for?COPD, HTN, ysy-xiayaqn-ezvyixtbp type 2 diabetes, HIV, hx of cryptococcal meningitis, GERD, polysubstance use disorder on methadone who is admitted to [facility] psychiatry unit for increasing depression, auditory hallucinations, I stress, and SI with plan to hang himself and/or overdose on fentanyl. Medical consult for admission H&P. ? Mood disorder Plan as per Psychiatry Left foot wound Pt with bleeding from callus and dry, cracked skin on bottom of left foot Pt with hx of mdt-llhrgbw-eyotayivb type 2 diabetes Keep feet clean and dry, use Xeroform nonstick dressing on left foot wound Eucerin lotion b.i.d. for dry and cracked skin No signs of infection, no indication for antibiotics at this time Consult wound care if wound worsens Right under arm rash Nystatin cream b.i.d. p.r.n. HIV Stopped taking Biktarvy a few weeks ago due to increasing depression and passive SI Pt with hx cryptococcal meningitis Will restart Biktarvy COPD Not in acute exacerbation Continue home inhalers Tzr-ijfzfcq-llqzuttha type 2 diabetes Continue metformin Encouraged diabetic diet and diabetic snacking GERD PPI Polysubstance use disorder Continue methadone Plan as per Psychiatry, Addiction medicine Thank you for allowing us to participate in the care of this patient. Signing off at this time. Please re-consult if any acute complaints or issues arise.
[2024-10-21] MEDS: Nystatin Cream 15 GM TUBE 1 APPL TOPICAL (17:21)
[2024-10-21] MEDS: Bictegrav/Emtricit/Tenofov Ala TABLET 1 TAB PO (17:26)
[2024-10-21 19:58] VITALS: BP 133/80; PULSE 67; RESP 15; TEMP 36.4; O2SAT 97
[2024-10-21] MEDS: traZODone HCL 50 MG TABLET PO (20:49)
[2024-10-21] MEDS: OLANZapine 7.5 MG TABLET 22.5 MG PO (20:49)
[2024-10-21] MEDS: cloNIDine HCL 0.1 MG TABLET PO (20:49)
[2024-10-21] MEDS: Melatonin 3 MG TABLET PO (20:50)
[2024-10-22] MEDS: Omeprazole 40 MG CAPSULE.DR PO ×2 (06:52→16:56)
[2024-10-22] MEDS: methADONE HCl 20 MG/2 ML ORAL.CONC 140 MG PO (07:50)
[2024-10-22 08:00] VITALS: BP 144/77; PULSE 54; RESP 18; TEMP 36.5; O2SAT 98
[2024-10-22] MEDS: Nicotine 21 MG PATCH.TD24 TRANSDERMA (08:29)
[2024-10-22] MEDS: Aspirin 81 MG TAB.CHEW PO (08:29)
[2024-10-22 08:30] VITALS: BP 144/77
[2024-10-22] MEDS: hydroCHLOROthiazide 25 MG TABLET PO (08:30)
[2024-10-22] MEDS: Valsartan 80 MG TABLET PO (08:30)
[2024-10-22] MEDS: Bictegrav/Emtricit/Tenofov Ala TABLET 1 TAB PO (08:30)
[2024-10-22] MEDS: DULoxetine HCl 60 MG CAPSULE.DR 120 MG PO (08:30)
[2024-10-22] MEDS: Cholecalciferol (Vitamin D3) 25 MCG TABLET PO (08:30)
[2024-10-22] MEDS: Atorvastatin Calcium 80 MG TABLET PO (08:30)
[2024-10-22] MEDS: Fluticasone/Umeclidinium/Vilanterol 100/62.5/25 BLST.W.DEV 1 PUFF INHALE (08:34)
[2024-10-22] MEDS: Nicotine Polacrilex Lozenge 4 MG LOZENGE BUCCAL ×2 (08:35→16:59)
[2024-10-22 08:37] VITALS: BP 144/77
[2024-10-22] MEDS: cloNIDine HCL 0.1 MG TABLET PO ×2 (08:37→18:21)
[2024-10-22] MEDS: Nystatin Cream 15 GM TUBE 1 APPL TOPICAL (08:38)
[2024-10-22] MEDS: Triamcinolone Acet 0.1 % Cream 15 GM TUBE 1 APPL TOPICAL (08:39)
--- NOTE | 2024-10-22 09:36 | P.PNPSI_ITS ---
Subjective Subjective Date of Service: 10/22/24 Reason For Visit: Major depressive d/o PTSD Opioid Use Disorder Mode Subjective Notes: Conditional Voluntary Healthcare Proxy: No Guardianship: No Medical Problems Affecting Mental Status: No Interim History: Reports ongoing sx of anxiety, depression Tells team he struggles with swallowing difficulty, will ask for bedside eval for his swallowing. Pt somewhat isolative today, engages when approached and states he is pleased that he is receiving treatment. Feeling safe on the unit he reports. Medication Compliance: Yes Side effects from medications: No Attending Groups: Intermittent Review of Systems Acute medical concerns: No Review of Systems Review of Systems reports swallowing difficulty Mental Status Exam Mental Status Exam Patient Appearance: Appropriate Patient Orientation: Person, Place, Time and Situation Level of Consciousness: Alert Patient Behavior: Talkative and Good Eye Contact Mood Description: Withdrawn and Depressed Affect Description: Flat Patient Cognition Impaired: No Ability to Follow Directions: Good Speech Pattern: Spontaneous Speech Memory Description: Intact Hallucinations: None Delusions: Not Present Thought Process: Goal Oriented Thought Content: positive for Goal Oriented and positive for Suicidal Ideation (denies today) Depressive Symptoms: Increased Anxiety and Thoughts of /Suicide (denies today) Judgement: Fair Diagnostics Vital Signs (24Hr): Vital Signs - 24 hr 10/21/24 19:58 10/22/24 08:00 10/22/24 08:30 Temperature 97.5 F 97.7 F Pulse Rate 67 54 Respiratory Rate 15 18 Blood Pressure 133/80 144/77 H 144/77 H Pulse Oximetry 97 98 Oxygen Delivery Method Room Air 10/22/24 08:30 10/22/24 08:37 Temperature Pulse Rate Respiratory Rate Blood Pressure 144/77 H 144/77 H Pulse Oximetry Oxygen Delivery Method BMI result Body Mass Index 32.5 Labs Labs: Laboratory Results - last 48 hr 10/21/24 08:52 Estimat Average Glucose 134 Hemoglobin A1c % 6.3 H Magnesium 2.2 Triglycerides 176 H Cholesterol 140 LDL Cholesterol, Calc 84 HDL Cholesterol 21 L TSH 0.96 Free T4 1.08 Medications Medications Current Medications Acetaminophen (Acetaminophen 325 Mg Tablet) 650 mg PO Q6H PRN PRN Reason: Headache/Pain, Scale 1-10 Last Admin: 10/20/24 22:22 Dose: 650 mg Al Hydroxide/Mg Hydroxide (Magnesium Hydrox/Alum Hydrox 30 Ml Oral.Susp) 30 ml PO Q6H PRN PRN Reason: Heartburn/Nausea Aspirin (Aspirin 81 Mg Tab.Chew) 81 mg PO DAILY [facility] Last Admin: 10/22/24 08:29 Dose: 81 mg Atorvastatin Calcium (Atorvastatin Calcium 80 Mg Tablet) 80 mg PO DAILY [facility] Last Admin: 10/22/24 08:30 Dose: 80 mg Benztropine Mesylate (Benztropine Mesylate 1 Mg Tablet) 1 mg PO BID [facility] Bictegravir/Emtricitabine/Tenofovir (Bictegrav/Emtricit/Tenofov Ala Tablet) 1 tab PO DAILY [facility] Last Admin: 10/22/24 08:30 Dose: 1 tab Chlorpromazine HCl (Chlorpromazine Hcl 25 Mg Tablet) 50 mg PO QID PRN PRN Reason: anxiety-severe Clonidine HCl (Clonidine Hcl 0.1 Mg Tablet) 0.1 mg PO TID PRN; Protocol PRN Reason: severe anxiety Last Admin: 10/22/24 08:37 Dose: 0.1 mg Duloxetine HCl (Duloxetine Hcl 60 Mg Capsule.Dr) 120 mg PO DAILY [facility] Last Admin: 10/22/24 08:30 Dose: 120 mg Fluticasone/Umeclidinium/Vilanterol (Fluticasone/Umeclidinium/Vilanterol 100/62.5/25 Blst.W.Dev) 1 puff INHALE RDAILY [facility] Last Admin: 10/22/24 08:34 Dose: 1 puff Hydrochlorothiazide (Hydrochlorothiazide 25 Mg Tablet) 25 mg PO DAILY [facility]; Protocol Last Admin: 10/22/24 08:30 Dose: 25 mg Hydroxyzine HCl (Hydroxyzine Hcl 25 Mg Tablet) 25 mg PO Q6H PRN PRN Reason: mild anxiety Magnesium Hydroxide (Milk Of Magnesia 30 Ml Oral.Susp) 30 ml PO DAILY PRN PRN Reason: Constipation Melatonin (Melatonin 3 Mg Tablet) 3 mg PO BEDTIME [facility] Last Admin: 10/21/24 20:50 Dose: 3 mg Methadone HCl (Methadone Hcl 20 Mg/2 Ml Oral.Conc) 140 mg PO DAILY@0800 [facility] Last Admin: 10/22/24 07:50 Dose: 140 mg Multi-Ingred Cream/Lotion/Oil/Oint (Mineral Oil/Petrolatum,White 106 Gm Tube) 1 appl TOPICAL BID [facility]; Protocol Last Admin: 10/21/24 22:05 Dose: Not Given Nicotine (Nicotine 21 Mg Patch.Td24) 21 mg TRANSDERMA DAILY [facility] Last Admin: 10/22/24 08:29 Dose: 21 mg Nicotine Polacrilex (Nicotine Polacrilex Lozenge 4 Mg Lozenge) 4 mg BUCCAL Q2H PRN PRN Reason: Nicotine Cravings Last Admin: 10/22/24 08:35 Dose: 4 mg Nystatin (Nystatin Cream 15 Gm Tube) 1 appl TOPICAL BID PRN; Protocol PRN Reason: Rash Last Admin: 10/22/24 08:38 Dose: 1 appl Olanzapine (Olanzapine 7.5 Mg Tablet) 22.5 mg PO BEDTIME [facility] Last Admin: 10/21/24 20:49 Dose: 22.5 mg Omeprazole (Omeprazole 40 Mg Capsule.Dr) 40 mg PO BID@0630,1630 [facility] Last Admin: 10/22/24 06:52 Dose: 40 mg Trazodone HCl (Trazodone Hcl 50 Mg Tablet) 50 mg PO BEDTIME MRX1 PRN PRN Reason: Insomnia Last Admin: 10/21/24 20:49 Dose: 50 mg Triamcinolone Acetonide (Triamcinolone Acet 0.1 % Cream 15 Gm Tube) 1 appl TOPICAL BID [facility]; Protocol Last Admin: 10/22/24 08:39 Dose: 1 appl Valsartan (Valsartan 80 Mg Tablet) 80 mg PO DAILY [facility] Last Admin: 10/22/24 08:30 Dose: 80 mg Vitamin D (Cholecalciferol (Vitamin D3) 25 Mcg Tablet) 25 mcg PO DAILY [facility] Last Admin: 10/22/24 08:30 Dose: 25 mcg Allergies Allergies Allergy/AdvReac Type Severity Reaction Status Date / Time latex [LATEX] Allergy Unknown UNKNOWN Verified 02/09/21 03:06 From PERCOCET Allergy Unknown UNKNOWN Uncoded 02/09/21 03:06 Assessment & Plan Assessment & Plan (1) Polysubstance use disorder: Status: Acute Code(s): F19.90 - Other psychoactive substance use, unspecified, uncomplicated (2) Bipolar disorder with psychotic features: Status: Acute Code(s): F31.9 - Bipolar disorder, unspecified (3) PTSD (post-traumatic stress disorder): Status: Acute Code(s): F43.10 - Post-traumatic stress disorder, unspecified Plan Admit, 15 minute checks Re-establish regime Collateral contact as needed Encourage milieu participation Diagnostics as needed Wound consult-foot Triamcinolone cream-underarm rash Chlorpromazine trial prn (pt reports very helpful by hx for sx mgt) 10/22: Continue tx Reason for continued inpatient stay Substantial Risk for: rapid decompensation Time Spent With Patient Time: Total time managing care of this patient today ____ minutes.
[2024-10-22 10:57] LABS: Folate 11.1 ng/mL (> or = 4.0); Vitamin B12 583 pg/mL (200-900)
[2024-10-22] MEDS: chlorproMAZINE HCl 25 MG TABLET 50 MG PO (17:04)
[2024-10-22 18:21] VITALS: BP 116/56
[2024-10-22 19:36] VITALS: BP 100/60; PULSE 87; TEMP 36.4; O2SAT 97
[2024-10-22] MEDS: Benztropine Mesylate 1 MG TABLET PO (20:56)
[2024-10-22] MEDS: OLANZapine 7.5 MG TABLET 22.5 MG PO (20:56)
[2024-10-22] MEDS: Melatonin 3 MG TABLET PO (20:56)
[2024-10-22] MEDS: traZODone HCL 50 MG TABLET PO (20:56)
[2024-10-23] MEDS: methADONE HCl 20 MG/2 ML ORAL.CONC 140 MG PO (07:40)
[2024-10-23 08:00] VITALS: BP 134/88; PULSE 86; RESP 18; TEMP 36.6; O2SAT 98
--- NOTE | 2024-10-23 08:26 | P.PNPSI_ITS ---
Subjective Subjective Date of Service: 10/23/24 Reason For Visit: Major depressive d/o PTSD Opioid Use Disorder Mode Subjective Notes: Conditional Voluntary Healthcare Proxy: No Guardianship: No Medical Problems Affecting Mental Status: No Interim History: Reports feeling oversedate, depressed, anxious. States this time of the year is the anniversary of a friends Sleep has increased. Discussed decreasing some med doses to assist with decreasing sedation. Pt concurs. Medication Compliance: Yes Side effects from medications: No Attending Groups: Intermittent Review of Systems Acute medical concerns: No Review of Systems Review of Systems swallowing difficulty Mental Status Exam Mental Status Exam Patient Appearance: Appropriate Patient Orientation: Person, Place, Time and Situation Level of Consciousness: Alert Patient Behavior: Talkative and Good Eye Contact Mood Description: Withdrawn and Depressed Affect Description: Flat Patient Cognition Impaired: No Ability to Follow Directions: Good Speech Pattern: Spontaneous Speech Memory Description: Intact Hallucinations: None Delusions: Not Present Thought Process: Goal Oriented Thought Content: positive for Goal Oriented and positive for Suicidal Ideation (denies today) Depressive Symptoms: Increased Anxiety and Thoughts of /Suicide (denies today) Judgement: Fair Diagnostics Vital Signs (24Hr): Vital Signs - 24 hr 10/22/24 08:30 10/22/24 08:30 10/22/24 08:37 Temperature Pulse Rate Respiratory Rate Blood Pressure 144/77 H 144/77 H 144/77 H Pulse Oximetry Oxygen Delivery Method 10/22/24 18:21 10/22/24 19:36 10/23/24 08:00 Temperature 97.5 F 97.8 F Pulse Rate 87 86 Respiratory Rate 18 Blood Pressure 116/56 L 100/60 134/88 Pulse Oximetry 97 98 Oxygen Delivery Method Room Air Room Air BMI result Body Mass Index 32.5 Labs Labs: Laboratory Results - last 48 hr 10/21/24 10/22/24 08:52 09:39 Estimat Average Glucose 134 Hemoglobin A1c % 6.3 H Magnesium 2.2 Triglycerides 176 H Cholesterol 140 LDL Cholesterol, Calc 84 HDL Cholesterol 21 L Vitamin B12 583 Folate 11.1 TSH 0.96 Free T4 1.08 Medications Medications Current Medications Acetaminophen (Acetaminophen 325 Mg Tablet) 650 mg PO Q6H PRN PRN Reason: Headache/Pain, Scale 1-10 Last Admin: 10/20/24 22:22 Dose: 650 mg Al Hydroxide/Mg Hydroxide (Magnesium Hydrox/Alum Hydrox 30 Ml Oral.Susp) 30 ml PO Q6H PRN PRN Reason: Heartburn/Nausea Aspirin (Aspirin 81 Mg Tab.Chew) 81 mg PO DAILY [facility] Last Admin: 10/22/24 08:29 Dose: 81 mg Atorvastatin Calcium (Atorvastatin Calcium 80 Mg Tablet) 80 mg PO DAILY [facility] Last Admin: 10/22/24 08:30 Dose: 80 mg Benztropine Mesylate (Benztropine Mesylate 1 Mg Tablet) 1 mg PO BID [facility] Last Admin: 10/22/24 20:56 Dose: 1 mg Bictegravir/Emtricitabine/Tenofovir (Bictegrav/Emtricit/Tenofov Ala Tablet) 1 tab PO DAILY [facility] Last Admin: 10/22/24 08:30 Dose: 1 tab Chlorpromazine HCl (Chlorpromazine Hcl 25 Mg Tablet) 50 mg PO QID PRN PRN Reason: anxiety-severe Last Admin: 10/22/24 17:04 Dose: 50 mg Clonidine HCl (Clonidine Hcl 0.1 Mg Tablet) 0.1 mg PO TID PRN; Protocol PRN Reason: severe anxiety Last Admin: 10/22/24 18:21 Dose: 0.1 mg Duloxetine HCl (Duloxetine Hcl 60 Mg Capsule.Dr) 120 mg PO DAILY [facility] Last Admin: 10/22/24 08:30 Dose: 120 mg Fluticasone/Umeclidinium/Vilanterol (Fluticasone/Umeclidinium/Vilanterol 100/62.5/25 Blst.W.Dev) 1 puff INHALE RDAILY [facility] Last Admin: 10/22/24 08:34 Dose: 1 puff Hydrochlorothiazide (Hydrochlorothiazide 25 Mg Tablet) 25 mg PO DAILY [facility]; Protocol Last Admin: 10/22/24 08:30 Dose: 25 mg Hydroxyzine HCl (Hydroxyzine Hcl 25 Mg Tablet) 25 mg PO Q6H PRN PRN Reason: mild anxiety Magnesium Hydroxide (Milk Of Magnesia 30 Ml Oral.Susp) 30 ml PO DAILY PRN PRN Reason: Constipation Melatonin (Melatonin 3 Mg Tablet) 3 mg PO BEDTIME [facility] Last Admin: 10/22/24 20:56 Dose: 3 mg Methadone HCl (Methadone Hcl 20 Mg/2 Ml Oral.Conc) 140 mg PO DAILY@0800 [facility] Last Admin: 10/23/24 07:40 Dose: 140 mg Multi-Ingred Cream/Lotion/Oil/Oint (Mineral Oil/Petrolatum,White 106 Gm Tube) 1 appl TOPICAL BID [facility]; Protocol Last Admin: 10/22/24 20:56 Dose: Not Given Nicotine (Nicotine 21 Mg Patch.Td24) 21 mg TRANSDERMA DAILY [facility] Last Admin: 10/22/24 08:29 Dose: 21 mg Nicotine Polacrilex (Nicotine Polacrilex Lozenge 4 Mg Lozenge) 4 mg BUCCAL Q2H PRN PRN Reason: Nicotine Cravings Last Admin: 10/22/24 16:59 Dose: 4 mg Nystatin (Nystatin Cream 15 Gm Tube) 1 appl TOPICAL BID PRN; Protocol PRN Reason: Rash Last Admin: 10/22/24 08:38 Dose: 1 appl Olanzapine (Olanzapine 7.5 Mg Tablet) 22.5 mg PO BEDTIME [facility] Last Admin: 10/22/24 20:56 Dose: 22.5 mg Omeprazole (Omeprazole 40 Mg Capsule.Dr) 40 mg PO BID@0630,1630 [facility] Last Admin: 10/22/24 16:56 Dose: 40 mg Trazodone HCl (Trazodone Hcl 50 Mg Tablet) 50 mg PO BEDTIME MRX1 PRN PRN Reason: Insomnia Last Admin: 10/22/24 20:56 Dose: 50 mg Triamcinolone Acetonide (Triamcinolone Acet 0.1 % Cream 15 Gm Tube) 1 appl TOPICAL BID [facility]; Protocol Last Admin: 10/22/24 20:56 Dose: Not Given Valsartan (Valsartan 80 Mg Tablet) 80 mg PO DAILY [facility] Last Admin: 10/22/24 08:30 Dose: 80 mg Vitamin D (Cholecalciferol (Vitamin D3) 25 Mcg Tablet) 25 mcg PO DAILY [facility] Last Admin: 10/22/24 08:30 Dose: 25 mcg Allergies Allergies Allergy/AdvReac Type Severity Reaction Status Date / Time latex [LATEX] Allergy Unknown UNKNOWN Verified 02/09/21 03:06 From PERCOCET Allergy Unknown UNKNOWN Uncoded 02/09/21 03:06 Assessment & Plan Assessment & Plan (1) Polysubstance use disorder: Status: Acute Code(s): F19.90 - Other psychoactive substance use, unspecified, uncomplicated (2) Bipolar disorder with psychotic features: Status: Acute Code(s): F31.9 - Bipolar disorder, unspecified (3) PTSD (post-traumatic stress disorder): Status: Acute Code(s): F43.10 - Post-traumatic stress disorder, unspecified Plan Admit, 15 minute checks Re-establish regime Collateral contact as needed Encourage milieu participation Diagnostics as needed Wound consult-foot Triamcinolone cream-underarm rash Chlorpromazine trial prn (pt reports very helpful by hx for sx mgt) 10/23 Decrease chlorpromaxine to 25 mg qid prn Decrease olanzapine to 20 mg HS Decrease Benztropine to 0.5 mg bid Reason for continued inpatient stay Substantial Risk for: rapid decompensation Time Spent With Patient Time: Total time managing care of this patient today ____ minutes.
[2024-10-23] MEDS: DULoxetine HCl 60 MG CAPSULE.DR 120 MG PO (08:29)
[2024-10-23] MEDS: hydroCHLOROthiazide 25 MG TABLET PO (08:29)
[2024-10-23] MEDS: Bictegrav/Emtricit/Tenofov Ala TABLET 1 TAB PO (08:29)
[2024-10-23] MEDS: Benztropine Mesylate 1 MG TABLET PO (08:30)
[2024-10-23] MEDS: Atorvastatin Calcium 80 MG TABLET PO (08:30)
[2024-10-23] MEDS: Omeprazole 40 MG CAPSULE.DR PO ×2 (08:30→16:06)
[2024-10-23] MEDS: hydrOXYzine HCL 25 MG TABLET PO (08:30)
[2024-10-23] MEDS: Aspirin 81 MG TAB.CHEW PO (08:31)
[2024-10-23] MEDS: Cholecalciferol (Vitamin D3) 25 MCG TABLET PO (08:31)
[2024-10-23] MEDS: Nicotine 21 MG PATCH.TD24 TRANSDERMA (08:32)
[2024-10-23] MEDS: Valsartan 80 MG TABLET PO (08:32)
[2024-10-23] MEDS: Fluticasone/Umeclidinium/Vilanterol 100/62.5/25 BLST.W.DEV 1 PUFF INHALE (08:34)
[2024-10-23] MEDS: Nicotine Polacrilex Lozenge 4 MG LOZENGE BUCCAL ×4 (08:34→19:06)
[2024-10-23] MEDS: Triamcinolone Acet 0.1 % Cream 15 GM TUBE 1 APPL TOPICAL (08:35)
[2024-10-23] MEDS: Nystatin Cream 15 GM TUBE 1 APPL TOPICAL (08:35)
[2024-10-23 16:08] VITALS: BP 110/75
[2024-10-23] MEDS: cloNIDine HCL 0.1 MG TABLET PO (16:08)
--- NOTE | 2024-10-23 17:42 | MHC.SL.SWA ---
Speech Pathologist Impression: Pharyngeal dysphagia Risk of Aspiration Due to: Hx of CVAs GERD COPD Dysphasia Diet Status: Regular diet with thin consistencies, REPRESENTATIVE PHLEBOTOMY SERVICES tx while inpatient for education, implementation of compensatory strategies, pharyngeal strengthening exercises, question need for MBSS and/or GI consult Liquid Consistency and Strategies for Safe Swallow: Liquid Intake Recommendation: Liquid Intake Strategies: Small Sips Solid Food Consistency: Dietary Recommendations: Regular Additional Modifications to Solid Foods: Oral Medication Intake: Whole with Liquid Please contact the pharmacy regarding appropriate crushable or liquid drug formulations that are available whenever modified delivery is recommended. Compensatory Strategies and Precautions to be Taken for Safe Swallow: Sitting Upright (90 deg) Double Swallow Small Bites and Sips Alternate Liquids/Solids Rate of Ingestion Change Supervision While Eating and Drinking for Safe Swallow: None Needed Foods to Avoid: Swallowing Recommended Treatments: Compens. Strategy Educat. Recommendation for Speech: Inpatient Speech Therapy Modified Barium Swallow Study - Inpatient Comment: Pt verbalized understanding of information provided at time of evaluation re:physiological function of swallow mechanism, recc compensatory strategies to improve pharyngeal phase of swallow, diet recommendations. REPRESENTATIVE PHLEBOTOMY SERVICES to followup with tx while inpatient, consider Modified Barium Swallow Study (MBSS) if indicated d/t nature of pt dysphagia s/p 3 CVAs, most recent 8 months ago per pt report. Frequency/Duration: followup x2 Date Range for Service Req: Timeline to reassess: Hand Paint Mixer Clinican/Clinical Fellow: No Supervisory Statement: I have reviewed and agree with the student/clinical fellow's documentation: N/A Speech Language Pathologist: Kristina Frazier M.S., [facility]-REPRESENTATIVE PHLEBOTOMY SERVICES
[2024-10-23 19:35] VITALS: BP 117/80; PULSE 85; RESP 15; TEMP 36.6; O2SAT 97
[2024-10-23] MEDS: OLANZapine 10 MG TABLET 20 MG PO (20:27)
[2024-10-23] MEDS: Melatonin 3 MG TABLET PO (20:28)
[2024-10-23] MEDS: traZODone HCL 50 MG TABLET PO (20:28)
[2024-10-23] MEDS: Benztropine Mesylate 0.5 MG TABLET PO (20:29)
[2024-10-24] MEDS: Omeprazole 40 MG CAPSULE.DR PO ×2 (06:53→16:03)
[2024-10-24] MEDS: methADONE HCl 20 MG/2 ML ORAL.CONC 140 MG PO (07:42)
[2024-10-24 08:00] VITALS: BP 171/90; PULSE 85; RESP 16; TEMP 36.5; O2SAT 99
[2024-10-24] MEDS: Aspirin 81 MG TAB.CHEW PO (08:50)
[2024-10-24 08:51] VITALS: BP 171/90
[2024-10-24] MEDS: Benztropine Mesylate 0.5 MG TABLET PO ×2 (08:51→19:50)
[2024-10-24] MEDS: DULoxetine HCl 60 MG CAPSULE.DR 120 MG PO (08:51)
[2024-10-24] MEDS: hydroCHLOROthiazide 25 MG TABLET PO (08:51)
[2024-10-24 08:52] VITALS: BP 171/90
[2024-10-24] MEDS: Valsartan 80 MG TABLET PO (08:52)
[2024-10-24] MEDS: Cholecalciferol (Vitamin D3) 25 MCG TABLET PO (08:52)
[2024-10-24] MEDS: Atorvastatin Calcium 80 MG TABLET PO (08:53)
[2024-10-24] MEDS: Bictegrav/Emtricit/Tenofov Ala TABLET 1 TAB PO (08:53)
[2024-10-24] MEDS: Nystatin Cream 15 GM TUBE 1 APPL TOPICAL (08:54)
[2024-10-24] MEDS: Fluticasone/Umeclidinium/Vilanterol 100/62.5/25 BLST.W.DEV 1 PUFF INHALE (08:54)
[2024-10-24] MEDS: Nicotine Polacrilex Lozenge 4 MG LOZENGE BUCCAL ×4 (08:57→19:51)
[2024-10-24] MEDS: Triamcinolone Acet 0.1 % Cream 15 GM TUBE 1 APPL TOPICAL ×2 (09:34→19:53)
--- NOTE | 2024-10-24 09:42 | HO.PSYCHPN ---
Subjective Subjective Date of Service: 10/24/24 Reason For Visit: Major depressive d/o PTSD Opioid Use Disorder Mode Interim History: Met with patient; discussed with team shared recent hx and pt reports he has been off medications for 3 weeks following relapse after 15-16 months of sobriety. Thinks relapse maybe partly due to the one year anniversary of his girlfriends . While sober, on Gabapentin, Cymbalta, trazodone, pt mood good, though anxiety/panic remained. Currently, still very depressed; says SI thoughts come and go, which are still lingering; some he can shrug off. Agreed to get back on Gabapentin which he used for nerve pain, but also helped with anxiety discussed dx since he carries bipolar dx; However, pt says longest manic episode lasts only a day at most and usually only a couple of hours shared about family relationships talked about growing up; HS Mental Status Exam Mental Status Exam Narrative: Pt is alert and oriented; behavior is cooperative, quiet, isolative, calm; patient is not in distress; dressed in casual sweatshirt, hospital paints, disheveled; mood is described as depressed and affect congruent, downcast; eye contact a little avoidant; Speech is a little slowed and soft; not pressured; psychomotor retardation present; thought process is organized and goal directed; Thought content is on hopeless thoughts; tx; otherwise pertinent to relevant topics and without any delusional content, paranoid ideations or grandiosity; intermittent SI; no HI; No AVH today; There is no evidence of perceptual disturbance. Patients insight and judgment impaired. Diagnostics Vital Signs (24Hr): Vital Signs - 24 hr 10/23/24 16:08 10/23/24 19:35 10/24/24 08:51 Temperature 97.8 F Pulse Rate 85 Respiratory Rate 15 Blood Pressure 110/75 117/80 171/90 H Pulse Oximetry 97 10/24/24 08:52 Temperature Pulse Rate Respiratory Rate Blood Pressure 171/90 H Pulse Oximetry BMI result Body Mass Index 32.5 Labs Labs: Laboratory Results - last 48 hr 10/22/24 09:39 Vitamin B12 583 Folate 11.1 Medications Medications Current Medications Acetaminophen (Acetaminophen 325 Mg Tablet) 650 mg PO Q6H PRN PRN Reason: Headache/Pain, Scale 1-10 Last Admin: 10/20/24 22:22 Dose: 650 mg Al Hydroxide/Mg Hydroxide (Magnesium Hydrox/Alum Hydrox 30 Ml Oral.Susp) 30 ml PO Q6H PRN PRN Reason: Heartburn/Nausea Aspirin (Aspirin 81 Mg Tab.Chew) 81 mg PO DAILY [facility] Last Admin: 10/24/24 08:50 Dose: 81 mg Atorvastatin Calcium (Atorvastatin Calcium 80 Mg Tablet) 80 mg PO DAILY [facility] Last Admin: 10/24/24 08:53 Dose: 80 mg Benztropine Mesylate (Benztropine Mesylate 0.5 Mg Tablet) 0.5 mg PO BID [facility] Last Admin: 10/24/24 08:51 Dose: 0.5 mg Bictegravir/Emtricitabine/Tenofovir (Bictegrav/Emtricit/Tenofov Ala Tablet) 1 tab PO DAILY [facility] Last Admin: 10/24/24 08:53 Dose: 1 tab Chlorpromazine HCl (Chlorpromazine Hcl 25 Mg Tablet) 25 mg PO QID PRN PRN Reason: anxiety-severe Clonidine HCl (Clonidine Hcl 0.1 Mg Tablet) 0.1 mg PO TID PRN; Protocol PRN Reason: severe anxiety Last Admin: 10/23/24 16:08 Dose: 0.1 mg Duloxetine HCl (Duloxetine Hcl 60 Mg Capsule.Dr) 120 mg PO DAILY [facility] Last Admin: 10/24/24 08:51 Dose: 120 mg Fluticasone/Umeclidinium/Vilanterol (Fluticasone/Umeclidinium/Vilanterol 100/62.5/25 Blst.W.Dev) 1 puff INHALE RDAILY [facility] Last Admin: 10/24/24 08:54 Dose: 1 puff Hydrochlorothiazide (Hydrochlorothiazide 25 Mg Tablet) 25 mg PO DAILY [facility]; Protocol Last Admin: 10/24/24 08:51 Dose: 25 mg Hydroxyzine HCl (Hydroxyzine Hcl 25 Mg Tablet) 25 mg PO Q6H PRN PRN Reason: mild anxiety Last Admin: 10/23/24 08:30 Dose: 25 mg Magnesium Hydroxide (Milk Of Magnesia 30 Ml Oral.Susp) 30 ml PO DAILY PRN PRN Reason: Constipation Melatonin (Melatonin 3 Mg Tablet) 3 mg PO BEDTIME [facility] Last Admin: 10/23/24 20:28 Dose: 3 mg Methadone HCl (Methadone Hcl 20 Mg/2 Ml Oral.Conc) 140 mg PO DAILY@0800 [facility] Last Admin: 10/24/24 07:42 Dose: 140 mg Multi-Ingred Cream/Lotion/Oil/Oint (Mineral Oil/Petrolatum,White 106 Gm Tube) 1 appl TOPICAL BID [facility]; Protocol Last Admin: 10/24/24 09:33 Dose: Not Given Nicotine (Nicotine 21 Mg Patch.Td24) 21 mg TRANSDERMA DAILY [facility] Last Admin: 10/24/24 09:33 Dose: Not Given Nicotine Polacrilex (Nicotine Polacrilex Lozenge 4 Mg Lozenge) 4 mg BUCCAL Q2H PRN PRN Reason: Nicotine Cravings Last Admin: 10/24/24 08:57 Dose: 4 mg Nystatin (Nystatin Cream 15 Gm Tube) 1 appl TOPICAL BID PRN; Protocol PRN Reason: Rash Last Admin: 10/24/24 08:54 Dose: 1 appl Olanzapine (Olanzapine 10 Mg Tablet) 20 mg PO BEDTIME [facility] Last Admin: 10/23/24 20:27 Dose: 20 mg Omeprazole (Omeprazole 40 Mg Capsule.Dr) 40 mg PO BID@0630,1630 [facility] Last Admin: 10/24/24 06:53 Dose: 40 mg Trazodone HCl (Trazodone Hcl 50 Mg Tablet) 50 mg PO BEDTIME MRX1 PRN PRN Reason: Insomnia Last Admin: 10/23/24 20:28 Dose: 50 mg Triamcinolone Acetonide (Triamcinolone Acet 0.1 % Cream 15 Gm Tube) 1 appl TOPICAL BID [facility]; Protocol Last Admin: 10/24/24 09:34 Dose: 1 appl Valsartan (Valsartan 80 Mg Tablet) 80 mg PO DAILY [facility] Last Admin: 10/24/24 08:52 Dose: 80 mg Vitamin D (Cholecalciferol (Vitamin D3) 25 Mcg Tablet) 25 mcg PO DAILY [facility] Last Admin: 10/24/24 08:52 Dose: 25 mcg Allergies Allergies Allergy/AdvReac Type Severity Reaction Status Date / Time latex [LATEX] Allergy Unknown UNKNOWN Verified 02/09/21 03:06 From PERCOCET Allergy Unknown UNKNOWN Uncoded 02/09/21 03:06 Assessment & Plan Assessment & Plan (1) MDD (major depressive disorder), recurrent, severe, with psychosis: Status: Acute Code(s): F33.3 - Major depressive disorder, recurrent, severe with psychotic symptoms (2) PTSD (post-traumatic stress disorder): Status: Acute Code(s): F43.10 - Post-traumatic stress disorder, unspecified (3) Opioid use disorder: Status: Acute Code(s): F11.99 - Opioid use, unspecified with unspecified opioid-induced disorder (4) Cocaine abuse: Status: Acute Code(s): F14.10 - Cocaine abuse, uncomplicated (5) Polysubstance use disorder: Status: Acute Code(s): F19.90 - Other psychoactive substance use, unspecified, uncomplicated Plan Hospital course: 10/23 Decrease chlorpromaxine to 25 mg qid prn Decrease olanzapine to 20 mg HS Decrease Benztropine to 0.5 mg bid 10/24 shared recent hx and pt reports he has been off medications for 3 weeks following relapse after 15-16 months of sobriety. Thinks relapse maybe partly due to the one year anniversary of his girlfriends . While sober, on Gabapentin, Cymbalta, trazodone, pt mood good, though anxiety/panic remained. Currently, still very depressed; says SI thoughts come and go, which are still lingering; some he can shrug off. AH less now. Agreed to get back on Gabapentin which he used for nerve pain, but also helped with anxiety discussed dx since he carries bipolar dx; However, pt says longest manic episode lasts only a day at most and usually only a couple of hours shared about family relationships talked about growing up; HS Impression: will change dx to MDD with pschotic features (he agrees with change in dx; will leave bipolar as rule out, however from reporting does not meet criteria). remains depressed but only just back on meds. PLAN: Admit, 15 minute checks continue Cymbalta Restarting Gabapentin 300mg tid (was on before and helped w/ neuropathic pain and anxiety) Wound consult-foot Triamcinolone cream-underarm rash Chlorpromazine trial prn (pt reports very helpful by hx for sx mgt) Decrease chlorpromaxine to 25 mg qid prn Decrease olanzapine to 20 mg HS Decrease Benztropine to 0.5 mg bid Patient educated on: diagnosis, medication risk/benefits, substance abuse, therapeutic strategies and medical condition Informed Consent: understands Reason for continued inpatient stay Substantial Risk for: inability to function and rapid decompensation Time Spent With Patient Time: Total time managing care of this patient today ____ minutes.
[2024-10-24 13:05] VITALS: BP 117/74
[2024-10-24] MEDS: cloNIDine HCL 0.1 MG TABLET PO ×2 (13:05→19:50)
[2024-10-24] MEDS: Acetaminophen 325 MG TABLET 650 MG PO (13:35)
[2024-10-24] MEDS: Gabapentin 300 MG CAPSULE PO ×2 (15:24→19:51)
[2024-10-24 19:50] VITALS: BP 120/59
[2024-10-24] MEDS: hydrOXYzine HCL 25 MG TABLET PO (19:50)
[2024-10-24] MEDS: OLANZapine 10 MG TABLET 20 MG PO (19:51)
[2024-10-24] MEDS: traZODone HCL 50 MG TABLET PO (19:51)
[2024-10-24] MEDS: Melatonin 3 MG TABLET PO (19:52)
[2024-10-24 20:00] VITALS: BP 120/59; PULSE 80; RESP 17; TEMP 36.4; O2SAT 98
[2024-10-25] VITALS (7 sets, daily range): BP systolic 93–127; BP diastolic 61–92; PULSE 75–108; TEMP 36.3–37.1; O2SAT 97–98
[2024-10-25] MEDS: Omeprazole 40 MG CAPSULE.DR PO ×2 (06:39→16:08)
[2024-10-25] MEDS: methADONE HCl 20 MG/2 ML ORAL.CONC 140 MG PO (07:40)
[2024-10-25] MEDS: Fluticasone/Umeclidinium/Vilanterol 100/62.5/25 BLST.W.DEV 1 PUFF INHALE (08:52)
[2024-10-25] MEDS: Benztropine Mesylate 0.5 MG TABLET PO ×2 (08:54→20:20)
[2024-10-25] MEDS: hydroCHLOROthiazide 25 MG TABLET PO (08:55)
[2024-10-25] MEDS: DULoxetine HCl 60 MG CAPSULE.DR 120 MG PO (08:56)
[2024-10-25] MEDS: Bictegrav/Emtricit/Tenofov Ala TABLET 1 TAB PO (08:56)
[2024-10-25] MEDS: Cholecalciferol (Vitamin D3) 25 MCG TABLET PO (08:57)
[2024-10-25] MEDS: Gabapentin 300 MG CAPSULE PO ×3 (08:57→20:18)
[2024-10-25] MEDS: Valsartan 80 MG TABLET PO (08:58)
[2024-10-25] MEDS: Aspirin 81 MG TAB.CHEW PO (08:59)
[2024-10-25] MEDS: Atorvastatin Calcium 80 MG TABLET PO (09:00)
[2024-10-25] MEDS: cloNIDine HCL 0.1 MG TABLET PO ×2 (09:05→20:21)
[2024-10-25] MEDS: Nicotine Polacrilex Lozenge 4 MG LOZENGE BUCCAL ×3 (09:06→20:26)
[2024-10-25] MEDS: Triamcinolone Acet 0.1 % Cream 15 GM TUBE 1 APPL TOPICAL ×2 (09:07→20:29)
[2024-10-25] MEDS: Nystatin Cream 15 GM TUBE 1 APPL TOPICAL (09:09)
[2024-10-25 11:06] LABS: Glucose, Whole Blood 273 mg/dL (60-115)
[2024-10-25] MEDS: chlorproMAZINE HCl 25 MG TABLET PO (12:18)
--- NOTE | 2024-10-25 12:58 | HO.PSYCHPN ---
Subjective Subjective Date of Service: 10/25/24 Reason For Visit: Major depressive d/o PTSD Opioid Use Disorder Mode Interim History: met with pt; discussed with team still very depressed; forcing self to go to groups and says almost panicked, but went out of group for a bit, calmed down and then returned. Reviewed options and pt agrees to try Wellbutrin XR 150mg for depression discussed med regimen will restart metformin 500mg BID (will likely titrate to 1000mg bid his home dose) will restart trulicity weekly (he missed last week) clonidine0.1mg qhs lowered zyprexa to 7.5mg; pt denies psychotic symptoms other than echoes, distant voice that only occur when depressed Mental Status Exam Mental Status Exam Narrative: Pt is alert and oriented; behavior is cooperative, quiet, isolative, calm; patient is not in distress; dressed in casual sweatshirt, hospital paints, disheveled; mood is described as depressed and affect congruent, downcast; eye contact a little avoidant; Speech is a little slowed and soft; not pressured; psychomotor retardation present; thought process is organized and goal directed; Thought content is on hopeless thoughts; tx; otherwise pertinent to relevant topics and without any delusional content, paranoid ideations or grandiosity; intermittent SI; no HI; No AVH today; There is no evidence of perceptual disturbance. Patients insight and judgment impaired. Diagnostics Vital Signs (24Hr): Vital Signs - 24 hr 10/24/24 13:05 10/24/24 19:50 10/24/24 20:00 Temperature 97.5 F Pulse Rate 80 Respiratory Rate 17 Blood Pressure 117/74 120/59 L 120/59 L Pulse Oximetry 98 Oxygen Delivery Method Room Air 10/25/24 08:00 10/25/24 08:55 10/25/24 08:58 Temperature 97.4 F Pulse Rate 80 Respiratory Rate Blood Pressure 127/92 H 127/92 H 127/92 H Pulse Oximetry 97 Oxygen Delivery Method Room Air 10/25/24 09:05 Temperature Pulse Rate Respiratory Rate Blood Pressure 127/92 H Pulse Oximetry Oxygen Delivery Method BMI result Body Mass Index 32.5 Labs 10/25/24 13:47 Labs: Laboratory Results - last 48 hr 10/25/24 11:02 POC Glucose 273 H Medications Medications Current Medications Acetaminophen (Acetaminophen 325 Mg Tablet) 650 mg PO Q6H PRN PRN Reason: Headache/Pain, Scale 1-10 Last Admin: 10/24/24 13:35 Dose: 650 mg Al Hydroxide/Mg Hydroxide (Magnesium Hydrox/Alum Hydrox 30 Ml Oral.Susp) 30 ml PO Q6H PRN PRN Reason: Heartburn/Nausea Aspirin (Aspirin 81 Mg Tab.Chew) 81 mg PO DAILY [facility] Last Admin: 10/25/24 08:59 Dose: 81 mg Atorvastatin Calcium (Atorvastatin Calcium 80 Mg Tablet) 80 mg PO DAILY [facility] Last Admin: 10/25/24 09:00 Dose: 80 mg Benztropine Mesylate (Benztropine Mesylate 0.5 Mg Tablet) 0.5 mg PO BID [facility] Last Admin: 10/25/24 08:54 Dose: 0.5 mg Bictegravir/Emtricitabine/Tenofovir (Bictegrav/Emtricit/Tenofov Ala Tablet) 1 tab PO DAILY [facility] Last Admin: 10/25/24 08:56 Dose: 1 tab Chlorpromazine HCl (Chlorpromazine Hcl 25 Mg Tablet) 25 mg PO QID PRN PRN Reason: anxiety-severe Last Admin: 10/25/24 12:18 Dose: 25 mg Clonidine HCl (Clonidine Hcl 0.1 Mg Tablet) 0.1 mg PO TID PRN; Protocol PRN Reason: severe anxiety Last Admin: 10/25/24 09:05 Dose: 0.1 mg Duloxetine HCl (Duloxetine Hcl 60 Mg Capsule.Dr) 120 mg PO DAILY [facility] Last Admin: 10/25/24 08:56 Dose: 120 mg Fluticasone/Umeclidinium/Vilanterol (Fluticasone/Umeclidinium/Vilanterol 100/62.5/25 Blst.W.Dev) 1 puff INHALE RDAILY [facility] Last Admin: 10/25/24 08:52 Dose: 1 puff Gabapentin (Gabapentin 300 Mg Capsule) 300 mg PO TID [facility] Last Admin: 10/25/24 08:57 Dose: 300 mg Hydrochlorothiazide (Hydrochlorothiazide 25 Mg Tablet) 25 mg PO DAILY [facility]; Protocol Last Admin: 10/25/24 08:55 Dose: 25 mg Hydroxyzine HCl (Hydroxyzine Hcl 25 Mg Tablet) 25 mg PO Q6H PRN PRN Reason: mild anxiety Last Admin: 10/24/24 19:50 Dose: 25 mg Magnesium Hydroxide (Milk Of Magnesia 30 Ml Oral.Susp) 30 ml PO DAILY PRN PRN Reason: Constipation Melatonin (Melatonin 3 Mg Tablet) 3 mg PO BEDTIME [facility] Last Admin: 10/24/24 19:52 Dose: 3 mg Methadone HCl (Methadone Hcl 20 Mg/2 Ml Oral.Conc) 140 mg PO DAILY@0800 [facility] Last Admin: 10/25/24 07:40 Dose: 140 mg Multi-Ingred Cream/Lotion/Oil/Oint (Mineral Oil/Petrolatum,White 106 Gm Tube) 1 appl TOPICAL BID [facility]; Protocol Last Admin: 10/25/24 09:11 Dose: Not Given Nicotine (Nicotine 21 Mg Patch.Td24) 21 mg TRANSDERMA DAILY [facility] Last Admin: 10/25/24 09:11 Dose: Not Given Nicotine Polacrilex (Nicotine Polacrilex Lozenge 4 Mg Lozenge) 4 mg BUCCAL Q2H PRN PRN Reason: Nicotine Cravings Last Admin: 10/25/24 09:06 Dose: 4 mg Nystatin (Nystatin Cream 15 Gm Tube) 1 appl TOPICAL BID PRN; Protocol PRN Reason: Rash Last Admin: 10/25/24 09:09 Dose: 1 appl Olanzapine (Olanzapine 10 Mg Tablet) 20 mg PO BEDTIME [facility] Last Admin: 10/24/24 19:51 Dose: 20 mg Omeprazole (Omeprazole 40 Mg Capsule.Dr) 40 mg PO BID@0630,1630 [facility] Last Admin: 10/25/24 06:39 Dose: 40 mg Trazodone HCl (Trazodone Hcl 50 Mg Tablet) 50 mg PO BEDTIME MRX1 PRN PRN Reason: Insomnia Last Admin: 10/24/24 19:51 Dose: 50 mg Triamcinolone Acetonide (Triamcinolone Acet 0.1 % Cream 15 Gm Tube) 1 appl TOPICAL BID [facility]; Protocol Last Admin: 10/25/24 09:07 Dose: 1 appl Valsartan (Valsartan 80 Mg Tablet) 80 mg PO DAILY [facility] Last Admin: 10/25/24 08:58 Dose: 80 mg Vitamin D (Cholecalciferol (Vitamin D3) 25 Mcg Tablet) 25 mcg PO DAILY [facility] Last Admin: 10/25/24 08:57 Dose: 25 mcg Allergies Allergies Allergy/AdvReac Type Severity Reaction Status Date / Time latex [LATEX] Allergy Unknown UNKNOWN Verified 02/09/21 03:06 From PERCOCET Allergy Unknown UNKNOWN Uncoded 02/09/21 03:06 Assessment & Plan Assessment & Plan (1) MDD (major depressive disorder), recurrent, severe, with psychosis: Status: Acute Code(s): F33.3 - Major depressive disorder, recurrent, severe with psychotic symptoms (2) PTSD (post-traumatic stress disorder): Status: Acute Code(s): F43.10 - Post-traumatic stress disorder, unspecified (3) Opioid use disorder: Status: Acute Code(s): F11.99 - Opioid use, unspecified with unspecified opioid-induced disorder (4) Cocaine abuse: Status: Acute Code(s): F14.10 - Cocaine abuse, uncomplicated (5) Polysubstance use disorder: Status: Acute Code(s): F19.90 - Other psychoactive substance use, unspecified, uncomplicated Plan Hospital course: 10/23 Decrease chlorpromaxine to 25 mg qid prn Decrease olanzapine to 20 mg HS Decrease Benztropine to 0.5 mg bid 10/24 shared recent hx and pt reports he has been off medications for 3 weeks following relapse after 15-16 months of sobriety. Thinks relapse maybe partly due to the one year anniversary of his girlfriends . While sober, on Gabapentin, Cymbalta, trazodone, pt mood good, though anxiety/panic remained. Currently, still very depressed; says SI thoughts come and go, which are still lingering; some he can shrug off. AH less now. -Agreed to get back on Gabapentin which he used for nerve pain, but also helped with anxiety -discussed dx since he carries bipolar dx; However, pt says longest manic episode lasts only a day at most and usually only a couple of hours -shared about family relationships talked about growing up; HS Impression:will change dx to MDD with pschotic features (he agrees with change in dx; will leave bipolar as rule out, however from reporting does not meet criteria). remains depressed but only just back on meds. 10/25 still very depressed; forcing self to go to groups and says almost panicked, but went out of group for a bit, calmed down and then returned. Reviewed options and pt agrees to try Wellbutrin XR 150mg for depression PLAN: Admit, 15 minute checks continue Cymbalta start Wellbutrin XR 150mg for depression Restarting Gabapentin 300mg tid (was on before and helped w/ neuropathic pain and anxiety) will restart metformin 500mg BID (will likely titrate to 1000mg bid his home dose) will restart trulicity weekly (he missed last week) clonidine0.1mg qhs lowered zyprexa to 7.5mg; pt denies psychotic symptoms other than echoes, distant voice that only occur when depressed Wound consult-foot Triamcinolone cream-underarm rash Chlorpromazine trial prn (pt reports very helpful by hx for sx mgt) Decrease chlorpromaxine to 25 mg qid prn Decrease olanzapine to 20 mg HS Decrease Benztropine to 0.5 mg bid Patient educated on: diagnosis, medication risk/benefits and therapeutic strategies Informed Consent: understands Reason for continued inpatient stay Substantial Risk for: rapid decompensation Time Spent With Patient Time: Total time managing care of this patient today ____ minutes.
[2024-10-25] MEDS: buPROPion HCL 75 MG TABLET PO (13:24)
--- NOTE | 2024-10-25 14:06 | HO.WOUND ---
Wound Consult: Initial 49yr old?male admitted to [facility] on 10/20/24 - See progress notes and H&P for detailed history.? Wound consult placed for Left Foot.? Patient agreeable to assessment and photo documentation.? Left foot is noted to have bandaid in place with xeroform to callused area. The area appears to be resurfaced aside from small 0.2cm central area with maceration noted. The xeroform is likely donating too much direct moisture to the wound bed at this time. Recommend switching for foam application to allow for padding and protection and moist wound healing. Foot is noted for dry cracking fissures (none open at this time) throughout heel and plantar area - he reports he was not using the cream as he did not realize it was for his feet. Patient instructed to apply daily at bedtime ensure socks are applied after application to prevent slipping. Recommendations: 1. Left Foot - Apply Dermacerin to both feet daily. besure to aply socks after applicaiton to prevent slipping. Apply skin prep to callused area, allow to dry cover with foam dressing. Change every 3-4 days and PRN. Re-consult wound care Nurse for wound deterioration or wound changes.
[2024-10-25 14:07] LABS: Creatinine Clr Calc Pharmacy 89.6; Estimated Glomerular Filt Rate > 60
--- NOTE | 2024-10-25 15:38 | MHC.SL.SWA ---
Speech Pathologist Impression: Pt c/o dysphagia s/p CVAs, last one 8 months ago per pt report. Pharyngeal strengthening exercises and review of strategies provided during tx today. Pt endorsed feeling tired. Risk of Aspiration Due to: Reported hx of CVAs Dysphasia Diet Status: Liquid Consistency and Strategies for Safe Swallow: Liquid Intake Recommendation: Thin Liquid Intake Strategies: Small Sips Solid Food Consistency: Dietary Recommendations: Regular Additional Modifications to Solid Foods: Oral Medication Intake: Whole with Liquid Please contact the pharmacy regarding appropriate crushable or liquid drug formulations that are available whenever modified delivery is recommended. Compensatory Strategies and Precautions to be Taken for Safe Swallow: Sitting Upright (90 deg) Double Swallow Small Bites and Sips Alternate Liquids/Solids Rate of Ingestion Change Supervision While Eating and Drinking for Safe Swallow: None Needed Foods to Avoid: Swallowing Recommended Treatments: Base of Tongue Exercises Pharyngeal Resistive Exer Compens. Strategy Educat. Recommendation for Speech: Inpatient Speech Therapy Modified Barium Swallow Study - Inpatient Comment: Pt benefits from education on physiological function of swallow mechanism and review of recommended safety/compensatory strategies. Pt provided with 3 pharyngeal strengthening exercises during tx today, good return in 2/3 attempts. Frequency/Duration: followup x2 Date Range for Service Req: Timeline to reassess: Aircraft Engine Specialist Clinican/Clinical Fellow: No Supervisory Statement: I have reviewed and agree with the student/clinical fellow's documentation: N/A Speech Language Pathologist: Kristina Frazier M.S., CCC-[facility] [facility]
[2024-10-25 17:19] LABS: Glucose, Whole Blood 113 mg/dL (60-115)
[2024-10-25] MEDS: metFORMIN HCl ER 500 MG TAB.ER.24H PO (20:19)
[2024-10-25] MEDS: OLANZapine 7.5 MG TABLET PO (20:19)
[2024-10-25] MEDS: Melatonin 3 MG TABLET PO (20:20)
[2024-10-25] MEDS: traZODone HCL 50 MG TABLET PO (20:20)
[2024-10-25] MEDS: Mineral Oil/Petrolatum,White 106 GM Tube 1 APPL TOPICAL (20:28)
[2024-10-25 20:45] LABS: Glucose, Whole Blood 157 mg/dL (60-115)
[2024-10-26] MEDS: Omeprazole 40 MG CAPSULE.DR PO ×2 (07:00→16:12)
[2024-10-26] MEDS: Nicotine Polacrilex Lozenge 4 MG LOZENGE BUCCAL ×5 (07:08→20:50)
[2024-10-26 08:00] VITALS: BP 121/81; PULSE 72; TEMP 36.4; O2SAT 96
[2024-10-26] MEDS: methADONE HCl 20 MG/2 ML ORAL.CONC 140 MG PO (08:06)
[2024-10-26 08:07] LABS: Glucose, Whole Blood 121 mg/dL (60-115)
[2024-10-26] MEDS: Fluticasone/Umeclidinium/Vilanterol 100/62.5/25 BLST.W.DEV 1 PUFF INHALE (09:23)
[2024-10-26] MEDS: buPROPion HCl XL 150 MG TAB.ER.24H PO (09:25)
[2024-10-26 09:26] VITALS: BP 121/81
[2024-10-26] MEDS: cloNIDine HCL 0.1 MG TABLET PO ×2 (09:26→20:50)
[2024-10-26] MEDS: metFORMIN HCl ER 500 MG TAB.ER.24H PO ×2 (09:26→20:50)
[2024-10-26] MEDS: Cholecalciferol (Vitamin D3) 25 MCG TABLET PO (09:26)
[2024-10-26 09:27] VITALS: BP 121/81
[2024-10-26] MEDS: Gabapentin 300 MG CAPSULE PO ×3 (09:27→20:50)
[2024-10-26] MEDS: Valsartan 80 MG TABLET PO (09:27)
[2024-10-26] MEDS: DULoxetine HCl 60 MG CAPSULE.DR 120 MG PO (09:27)
[2024-10-26 09:28] VITALS: BP 121/81
[2024-10-26] MEDS: hydroCHLOROthiazide 25 MG TABLET PO (09:28)
[2024-10-26] MEDS: Benztropine Mesylate 0.5 MG TABLET PO ×2 (09:28→20:50)
[2024-10-26] MEDS: Aspirin 81 MG TAB.CHEW PO (09:28)
[2024-10-26] MEDS: Atorvastatin Calcium 80 MG TABLET PO (09:29)
[2024-10-26] MEDS: Bictegrav/Emtricit/Tenofov Ala TABLET 1 TAB PO (09:29)
[2024-10-26] MEDS: Mineral Oil/Petrolatum,White 106 GM Tube 1 APPL TOPICAL (09:30)
[2024-10-26] MEDS: Triamcinolone Acet 0.1 % Cream 15 GM TUBE 1 APPL TOPICAL (09:30)
[2024-10-26] MEDS: hydrOXYzine HCL 25 MG TABLET PO ×2 (09:51→20:49)
[2024-10-26 12:26] LABS: Glucose, Whole Blood 145 mg/dL (60-115)
[2024-10-26] MEDS: DULAGLUTIDE 1.5 MG/0.5 ML 1 EACH SUBCUT (13:46)
--- NOTE | 2024-10-26 13:48 | PC.NURSE ---
Pt received his Trulicity shot on 10/26/2023 at 13:40. Next shot is 11/02/2024 (every ). His Trulicity is being kept in the fridge of inpatient pharmacy on the 3rd floor.
[2024-10-26] MEDS: chlorproMAZINE HCl 25 MG TABLET PO (16:12)
--- NOTE | 2024-10-26 17:11 | HO.PSYCHPN ---
Subjective Subjective Date of Service: 10/26/24 Reason For Visit: Major depressive d/o PTSD Opioid Use Disorder Mode Interim History: met with pt; discussed with team says very depressed today but does not know why; agrees to increase Wellbutrin. discussed other options, and reports tried lithium in past and it did not help Mental Status Exam Mental Status Exam Narrative: Pt is alert and oriented; behavior is cooperative, quiet, isolative, calm; patient is not in distress; dressed in casual sweatshirt, hospital paints, unkempt, but adequate hygiene; mood is described as very depressed and affect congruent, downcast; eye contact a little avoidant; Speech is a little slowed and soft; not pressured; psychomotor retardation present; thought process is organized and goal directed; Thought content is on hopeless thoughts; tx; otherwise pertinent to relevant topics and without any delusional content, paranoid ideations or grandiosity; intermittent SI; no HI; No AVH today; There is no evidence of perceptual disturbance. Patients insight and judgment impaired. Diagnostics Vital Signs (24Hr): Vital Signs - 24 hr 10/25/24 20:00 10/25/24 20:21 10/25/24 23:14 Temperature 98.7 F 97.6 F Pulse Rate 75 108 H Blood Pressure 93/63 102/61 102/61 Pulse Oximetry 98 97 Oxygen Delivery Method Room Air Room Air 10/26/24 08:00 10/26/24 09:26 10/26/24 09:27 Temperature 97.6 F Pulse Rate 72 Blood Pressure 121/81 121/81 121/81 Pulse Oximetry 96 Oxygen Delivery Method Room Air 10/26/24 09:28 Temperature Pulse Rate Blood Pressure 121/81 Pulse Oximetry Oxygen Delivery Method BMI result Body Mass Index 32.5 Labs 10/25/24 13:47 Labs: Laboratory Results - last 48 hr 10/25/24 10/25/24 10/25/24 11:02 13:47 17:14 Creatinine 1.10 Estim Creat Clear Calc 89.6 Estimated GFR > 60 POC Glucose 273 H 113 10/25/24 10/26/24 10/26/24 20:41 07:58 12:22 Creatinine Estim Creat Clear Calc Estimated GFR POC Glucose 157 H 121 H 145 H Medications Medications Current Medications Acetaminophen (Acetaminophen 325 Mg Tablet) 650 mg PO Q6H PRN PRN Reason: Headache/Pain, Scale 1-10 Last Admin: 10/24/24 13:35 Dose: 650 mg Al Hydroxide/Mg Hydroxide (Magnesium Hydrox/Alum Hydrox 30 Ml Oral.Susp) 30 ml PO Q6H PRN PRN Reason: Heartburn/Nausea Aspirin (Aspirin 81 Mg Tab.Chew) 81 mg PO DAILY [facility] Last Admin: 10/26/24 09:28 Dose: 81 mg Atorvastatin Calcium (Atorvastatin Calcium 80 Mg Tablet) 80 mg PO DAILY [facility] Last Admin: 10/26/24 09:29 Dose: 80 mg Benztropine Mesylate (Benztropine Mesylate 0.5 Mg Tablet) 0.5 mg PO BID [facility] Last Admin: 10/26/24 09:28 Dose: 0.5 mg Bictegravir/Emtricitabine/Tenofovir (Bictegrav/Emtricit/Tenofov Ala Tablet) 1 tab PO DAILY [facility] Last Admin: 10/26/24 09:29 Dose: 1 tab Bupropion HCl (Bupropion Hcl Xl 150 Mg Tab.Er.24h) 150 mg PO DAILY [facility] Last Admin: 10/26/24 09:25 Dose: 150 mg Chlorpromazine HCl (Chlorpromazine Hcl 25 Mg Tablet) 25 mg PO QID PRN PRN Reason: anxiety-severe Last Admin: 10/26/24 16:12 Dose: 25 mg Clonidine HCl (Clonidine Hcl 0.1 Mg Tablet) 0.1 mg PO Q4H PRN; Protocol PRN Reason: moderate anxiety Clonidine HCl (Clonidine Hcl 0.1 Mg Tablet) 0.1 mg PO BID [facility]; Protocol Last Admin: 10/26/24 09:26 Dose: 0.1 mg Duloxetine HCl (Duloxetine Hcl 60 Mg Capsule.Dr) 120 mg PO DAILY [facility] Last Admin: 10/26/24 09:27 Dose: 120 mg Fluticasone/Umeclidinium/Vilanterol (Fluticasone/Umeclidinium/Vilanterol 100/62.5/25 Blst.W.Dev) 1 puff INHALE RDAILY [facility] Last Admin: 10/26/24 09:23 Dose: 1 puff Gabapentin (Gabapentin 300 Mg Capsule) 300 mg PO TID [facility] Last Admin: 10/26/24 14:44 Dose: 300 mg Hydrochlorothiazide (Hydrochlorothiazide 25 Mg Tablet) 25 mg PO DAILY [facility]; Protocol Last Admin: 10/26/24 09:28 Dose: 25 mg Hydroxyzine HCl (Hydroxyzine Hcl 25 Mg Tablet) 25 mg PO Q6H PRN PRN Reason: mild anxiety Last Admin: 10/26/24 09:51 Dose: 25 mg Magnesium Hydroxide (Milk Of Magnesia 30 Ml Oral.Susp) 30 ml PO DAILY PRN PRN Reason: Constipation Melatonin (Melatonin 3 Mg Tablet) 3 mg PO BEDTIME [facility] Last Admin: 10/25/24 20:20 Dose: 3 mg Metformin HCl (Metformin Hcl Er 500 Mg Tab.Er.24h) 500 mg PO BID [facility] Last Admin: 10/26/24 09:26 Dose: 500 mg Methadone HCl (Methadone Hcl 20 Mg/2 Ml Oral.Conc) 140 mg PO DAILY@0800 [facility] Last Admin: 10/26/24 08:06 Dose: 140 mg Multi-Ingred Cream/Lotion/Oil/Oint (Mineral Oil/Petrolatum,White 106 Gm Tube) 1 appl TOPICAL BID [facility]; Protocol Last Admin: 10/26/24 09:30 Dose: 1 appl Nicotine (Nicotine 21 Mg Patch.Td24) 21 mg TRANSDERMA DAILY [facility] Last Admin: 10/26/24 09:32 Dose: Not Given Nicotine Polacrilex (Nicotine Polacrilex Lozenge 4 Mg Lozenge) 4 mg BUCCAL Q2H PRN PRN Reason: Nicotine Cravings Last Admin: 10/26/24 13:47 Dose: 4 mg Pt Owned Med ( Trulicity 1.5mg / 0. 5ml) 1 each SUBCUT Th@0900 [facility] Last Admin: 10/26/24 13:46 Dose: 1 each Nystatin (Nystatin Cream 15 Gm Tube) 1 appl TOPICAL BID PRN; Protocol PRN Reason: Rash Last Admin: 10/25/24 09:09 Dose: 1 appl Olanzapine (Olanzapine 7.5 Mg Tablet) 7.5 mg PO BEDTIME [facility] Last Admin: 10/25/24 20:19 Dose: 7.5 mg Omeprazole (Omeprazole 40 Mg Capsule.Dr) 40 mg PO BID@0630,1630 [facility] Last Admin: 10/26/24 16:12 Dose: 40 mg Trazodone HCl (Trazodone Hcl 50 Mg Tablet) 50 mg PO BEDTIME MRX1 PRN PRN Reason: Insomnia Last Admin: 10/25/24 20:20 Dose: 50 mg Triamcinolone Acetonide (Triamcinolone Acet 0.1 % Cream 15 Gm Tube) 1 appl TOPICAL BID [facility]; Protocol Last Admin: 10/26/24 09:30 Dose: 1 appl Valsartan (Valsartan 80 Mg Tablet) 80 mg PO DAILY [facility] Last Admin: 10/26/24 09:27 Dose: 80 mg Vitamin D (Cholecalciferol (Vitamin D3) 25 Mcg Tablet) 25 mcg PO DAILY [facility] Last Admin: 10/26/24 09:26 Dose: 25 mcg Allergies Allergies Allergy/AdvReac Type Severity Reaction Status Date / Time latex [LATEX] Allergy Unknown UNKNOWN Verified 02/09/21 03:06 From PERCOCET Allergy Unknown UNKNOWN Uncoded 02/09/21 03:06 Assessment & Plan Assessment & Plan (1) MDD (major depressive disorder), recurrent, severe, with psychosis: Status: Acute Code(s): F33.3 - Major depressive disorder, recurrent, severe with psychotic symptoms (2) PTSD (post-traumatic stress disorder): Status: Acute Code(s): F43.10 - Post-traumatic stress disorder, unspecified (3) Opioid use disorder: Status: Acute Code(s): F11.99 - Opioid use, unspecified with unspecified opioid-induced disorder (4) Cocaine abuse: Status: Acute Code(s): F14.10 - Cocaine abuse, uncomplicated (5) Polysubstance use disorder: Status: Acute Code(s): F19.90 - Other psychoactive substance use, unspecified, uncomplicated Plan Hospital course: 10/23 Decrease chlorpromaxine to 25 mg qid prn Decrease olanzapine to 20 mg HS Decrease Benztropine to 0.5 mg bid 10/24 shared recent hx and pt reports he has been off medications for 3 weeks following relapse after 15-16 months of sobriety. Thinks relapse maybe partly due to the one year anniversary of his girlfriends . While sober, on Gabapentin, Cymbalta, trazodone, pt mood good, though anxiety/panic remained. Currently, still very depressed; says SI thoughts come and go, which are still lingering; some he can shrug off. AH less now. -Agreed to get back on Gabapentin which he used for nerve pain, but also helped with anxiety -discussed dx since he carries bipolar dx; However, pt says longest manic episode lasts only a day at most and usually only a couple of hours -shared about family relationships -talked about growing up; HS Impression:will change dx to MDD with pschotic features (he agrees with change in dx; will leave bipolar as rule out, however from reporting does not meet criteria). remains depressed but only just back on meds. 10/25 still very depressed; forcing self to go to groups and says almost panicked, but went out of group for a bit, calmed down and then returned. Reviewed options and pt agrees to try Wellbutrin XR 150mg for depression 10/26 pt reports he's feeling very depressed today, but does not know why; agrees to increase wellbutrin PLAN: Admit, 15 minute checks continue Cymbalta Increase to Wellbutrin XR 300mg for depression Restarting Gabapentin 300mg tid (was on before and helped w/ neuropathic pain and anxiety) will restart metformin 500mg BID (will likely titrate to 1000mg bid his home dose) will restart trulicity weekly (he missed last week) clonidine0.1mg qhs lowered zyprexa to 7.5mg; pt denies psychotic symptoms other than echoes, distant voice that only occur when depressed Wound consult-foot Triamcinolone cream-underarm rash Chlorpromazine trial prn (pt reports very helpful by hx for sx mgt) Decrease chlorpromaxine to 25 mg qid prn Decrease olanzapine to 20 mg HS Decrease Benztropine to 0.5 mg bid Patient educated on: diagnosis, medication risk/benefits and therapeutic strategies Informed Consent: understands Wound consult-foot Triamcinolone cream-underarm rash Chlorpromazine trial prn (pt reports very helpful by hx for sx mgt) Decrease chlorpromaxine to 25 mg qid prn Decrease olanzapine to 20 mg HS Decrease Benztropine to 0.5 mg bid Patient educated on: diagnosis and medication risk/benefits Informed Consent: understands Reason for continued inpatient stay Substantial Risk for: rapid decompensation Time Spent With Patient Time: Total time managing care of this patient today ____ minutes.
[2024-10-26 20:00] VITALS: BP 103/66; PULSE 71; TEMP 36.6; O2SAT 99
[2024-10-26 20:45] LABS: Glucose, Whole Blood 119 mg/dL (60-115)
[2024-10-26] MEDS: Melatonin 3 MG TABLET PO (20:49)
[2024-10-26 20:50] VITALS: BP 103/66
[2024-10-26] MEDS: OLANZapine 7.5 MG TABLET PO (20:50)
[2024-10-26] MEDS: traZODone HCL 50 MG TABLET PO (20:53)
[2024-10-27] MEDS: Omeprazole 40 MG CAPSULE.DR PO ×2 (06:43→16:05)
[2024-10-27 08:00] VITALS: BP 125/81; PULSE 80; RESP 18; TEMP 36.4; O2SAT 95
[2024-10-27] MEDS: methADONE HCl 20 MG/2 ML ORAL.CONC 140 MG PO (08:03)
[2024-10-27 08:28] LABS: Glucose, Whole Blood 145 mg/dL (60-115)
[2024-10-27] MEDS: Atorvastatin Calcium 80 MG TABLET PO (08:44)
[2024-10-27] MEDS: Nicotine 21 MG PATCH.TD24 TRANSDERMA (08:44)
[2024-10-27] MEDS: Valsartan 80 MG TABLET PO (08:44)
[2024-10-27] MEDS: buPROPion HCl XL 300 MG TAB.ER.24H PO (08:45)
[2024-10-27] MEDS: Benztropine Mesylate 0.5 MG TABLET PO ×2 (08:45→21:16)
[2024-10-27] MEDS: Gabapentin 300 MG CAPSULE PO ×3 (08:45→21:15)
[2024-10-27] MEDS: metFORMIN HCl ER 500 MG TAB.ER.24H PO ×2 (08:45→21:15)
[2024-10-27] MEDS: hydroCHLOROthiazide 25 MG TABLET PO (08:45)
[2024-10-27] MEDS: Aspirin 81 MG TAB.CHEW PO (08:45)
[2024-10-27] MEDS: Cholecalciferol (Vitamin D3) 25 MCG TABLET PO (08:45)
[2024-10-27] MEDS: Bictegrav/Emtricit/Tenofov Ala TABLET 1 TAB PO (08:45)
[2024-10-27] MEDS: DULoxetine HCl 60 MG CAPSULE.DR 120 MG PO (08:45)
--- NOTE | 2024-10-27 09:40 | HO.PSYCHPN ---
Subjective Subjective Date of Service: 10/27/24 Reason For Visit: Major depressive d/o PTSD Opioid Use Disorder Mode Interim History: met with pt; discussed with team remains very depressed; forcing self to shower, go to groups and be out of room. No AH but passive wish remains. He's surprised it's taking this long for Cymbalta to kick back in; hoping Wellbutrin shows effect. Agrees to wait little longer before increasing dose Mental Status Exam Mental Status Exam Narrative: Pt is alert and oriented; behavior is cooperative, quiet, pushing self to be more social, calm; patient is not in distress; dressed in casual sweatshirt, hospital paints, unkempt, but adequate hygiene; mood is described as depressed and affect congruent, downcast; eye contact a little avoidant; Speech is still a little slowed and soft; not pressured; psychomotor retardation present; thought process is organized and goal directed; Thought content is on hopeless thoughts; tx; otherwise pertinent to relevant topics and without any delusional content, paranoid ideations or grandiosity; intermittent passive SI; no HI; No AVH; There is no evidence of perceptual disturbance. Patients insight and judgment impaired. Diagnostics Vital Signs (24Hr): Vital Signs - 24 hr 10/26/24 20:00 10/26/24 20:50 10/27/24 08:00 Temperature 97.8 F 97.5 F Pulse Rate 71 80 Respiratory Rate 18 Blood Pressure 103/66 103/66 125/81 Pulse Oximetry 99 95 Oxygen Delivery Method Room Air Room Air BMI result Body Mass Index 32.5 Labs 10/25/24 13:47 Labs: Laboratory Results - last 48 hr 10/25/24 10/25/24 10/25/24 11:02 13:47 17:14 Creatinine 1.10 Estim Creat Clear Calc 89.6 Estimated GFR > 60 POC Glucose 273 H 113 10/25/24 10/26/24 10/26/24 20:41 07:58 12:22 Creatinine Estim Creat Clear Calc Estimated GFR POC Glucose 157 H 121 H 145 H 10/26/24 10/27/24 20:29 08:18 Creatinine Estim Creat Clear Calc Estimated GFR POC Glucose 119 H 145 H Medications Medications Current Medications Acetaminophen (Acetaminophen 325 Mg Tablet) 650 mg PO Q6H PRN PRN Reason: Headache/Pain, Scale 1-10 Last Admin: 10/24/24 13:35 Dose: 650 mg Al Hydroxide/Mg Hydroxide (Magnesium Hydrox/Alum Hydrox 30 Ml Oral.Susp) 30 ml PO Q6H PRN PRN Reason: Heartburn/Nausea Aspirin (Aspirin 81 Mg Tab.Chew) 81 mg PO DAILY [facility] Last Admin: 10/27/24 08:45 Dose: 81 mg Atorvastatin Calcium (Atorvastatin Calcium 80 Mg Tablet) 80 mg PO DAILY [facility] Last Admin: 10/27/24 08:44 Dose: 80 mg Benztropine Mesylate (Benztropine Mesylate 0.5 Mg Tablet) 0.5 mg PO BID [facility] Last Admin: 10/27/24 08:45 Dose: 0.5 mg Bictegravir/Emtricitabine/Tenofovir (Bictegrav/Emtricit/Tenofov Ala Tablet) 1 tab PO DAILY [facility] Last Admin: 10/27/24 08:45 Dose: 1 tab Bupropion HCl (Bupropion Hcl Xl 300 Mg Tab.Er.24h) 300 mg PO DAILY [facility] Last Admin: 10/27/24 08:45 Dose: 300 mg Chlorpromazine HCl (Chlorpromazine Hcl 25 Mg Tablet) 25 mg PO QID PRN PRN Reason: anxiety-severe Last Admin: 10/26/24 16:12 Dose: 25 mg Clonidine HCl (Clonidine Hcl 0.1 Mg Tablet) 0.1 mg PO Q4H PRN; Protocol PRN Reason: moderate anxiety Clonidine HCl (Clonidine Hcl 0.1 Mg Tablet) 0.1 mg PO BID [facility]; Protocol Last Admin: 10/26/24 20:50 Dose: 0.1 mg Duloxetine HCl (Duloxetine Hcl 60 Mg Capsule.Dr) 120 mg PO DAILY [facility] Last Admin: 10/27/24 08:45 Dose: 120 mg Fluticasone/Umeclidinium/Vilanterol (Fluticasone/Umeclidinium/Vilanterol 100/62.5/25 Blst.W.Dev) 1 puff INHALE RDAILY [facility] Last Admin: 10/27/24 08:50 Dose: Not Given Gabapentin (Gabapentin 300 Mg Capsule) 300 mg PO TID [facility] Last Admin: 10/27/24 08:45 Dose: 300 mg Hydrochlorothiazide (Hydrochlorothiazide 25 Mg Tablet) 25 mg PO DAILY [facility]; Protocol Last Admin: 10/27/24 08:45 Dose: 25 mg Hydroxyzine HCl (Hydroxyzine Hcl 25 Mg Tablet) 25 mg PO Q6H PRN PRN Reason: mild anxiety Last Admin: 10/26/24 20:49 Dose: 25 mg Magnesium Hydroxide (Milk Of Magnesia 30 Ml Oral.Susp) 30 ml PO DAILY PRN PRN Reason: Constipation Melatonin (Melatonin 3 Mg Tablet) 3 mg PO BEDTIME [facility] Last Admin: 10/26/24 20:49 Dose: 3 mg Metformin HCl (Metformin Hcl Er 500 Mg Tab.Er.24h) 500 mg PO BID [facility] Last Admin: 10/27/24 08:45 Dose: 500 mg Methadone HCl (Methadone Hcl 20 Mg/2 Ml Oral.Conc) 140 mg PO DAILY@0800 [facility] Last Admin: 10/27/24 08:03 Dose: 140 mg Multi-Ingred Cream/Lotion/Oil/Oint (Mineral Oil/Petrolatum,White 106 Gm Tube) 1 appl TOPICAL BID [facility]; Protocol Last Admin: 10/26/24 20:55 Dose: Not Given Nicotine (Nicotine 21 Mg Patch.Td24) 21 mg TRANSDERMA DAILY [facility] Last Admin: 10/27/24 08:44 Dose: 21 mg Nicotine Polacrilex (Nicotine Polacrilex Lozenge 4 Mg Lozenge) 4 mg BUCCAL Q2H PRN PRN Reason: Nicotine Cravings Last Admin: 10/26/24 20:50 Dose: 4 mg Pt Owned Med ( Trulicity 1.5mg / 0. 5ml) 1 each SUBCUT Th@0900 [facility] Last Admin: 10/26/24 13:46 Dose: 1 each Nystatin (Nystatin Cream 15 Gm Tube) 1 appl TOPICAL BID PRN; Protocol PRN Reason: Rash Last Admin: 10/25/24 09:09 Dose: 1 appl Olanzapine (Olanzapine 7.5 Mg Tablet) 7.5 mg PO BEDTIME [facility] Last Admin: 10/26/24 20:50 Dose: 7.5 mg Omeprazole (Omeprazole 40 Mg Capsule.Dr) 40 mg PO BID@0630,1630 [facility] Last Admin: 10/27/24 06:43 Dose: 40 mg Trazodone HCl (Trazodone Hcl 50 Mg Tablet) 50 mg PO BEDTIME MRX1 PRN PRN Reason: Insomnia Last Admin: 10/26/24 20:53 Dose: 50 mg Triamcinolone Acetonide (Triamcinolone Acet 0.1 % Cream 15 Gm Tube) 1 appl TOPICAL BID [facility]; Protocol Last Admin: 10/26/24 20:55 Dose: Not Given Valsartan (Valsartan 80 Mg Tablet) 80 mg PO DAILY [facility] Last Admin: 10/27/24 08:44 Dose: 80 mg Vitamin D (Cholecalciferol (Vitamin D3) 25 Mcg Tablet) 25 mcg PO DAILY [facility] Last Admin: 10/27/24 08:45 Dose: 25 mcg Allergies Allergies Allergy/AdvReac Type Severity Reaction Status Date / Time latex [LATEX] Allergy Unknown UNKNOWN Verified 02/09/21 03:06 From PERCOCET Allergy Unknown UNKNOWN Uncoded 02/09/21 03:06 Assessment & Plan Assessment & Plan (1) MDD (major depressive disorder), recurrent, severe, with psychosis: Status: Acute Code(s): F33.3 - Major depressive disorder, recurrent, severe with psychotic symptoms (2) PTSD (post-traumatic stress disorder): Status: Acute Code(s): F43.10 - Post-traumatic stress disorder, unspecified (3) Opioid use disorder: Status: Acute Code(s): F11.99 - Opioid use, unspecified with unspecified opioid-induced disorder (4) Cocaine abuse: Status: Acute Code(s): F14.10 - Cocaine abuse, uncomplicated (5) Polysubstance use disorder: Status: Acute Code(s): F19.90 - Other psychoactive substance use, unspecified, uncomplicated Plan Hospital course: 10/23 Decrease chlorpromaxine to 25 mg qid prn Decrease olanzapine to 20 mg HS Decrease Benztropine to 0.5 mg bid 10/24 shared recent hx and pt reports he has been off medications for 3 weeks following relapse after 15-16 months of sobriety. Thinks relapse maybe partly due to the one year anniversary of his girlfriends . While sober, on Gabapentin, Cymbalta, trazodone, pt mood good, though anxiety/panic remained. Currently, still very depressed; says SI thoughts come and go, which are still lingering; some he can shrug off. AH less now. -Agreed to get back on Gabapentin which he used for nerve pain, but also helped with anxiety -discussed dx since he carries bipolar dx; However, pt says longest manic episode lasts only a day at most and usually only a couple of hours -shared about family relationships -talked about growing up; HS Impression:will change dx to MDD with pschotic features (he agrees with change in dx; will leave bipolar as rule out, however from reporting does not meet criteria). remains depressed but only just back on meds. 10/25 still very depressed; forcing self to go to groups and says almost panicked, but went out of group for a bit, calmed down and then returned. Reviewed options and pt agrees to try Wellbutrin XR 150mg for depression 10/26 pt reports he's feeling very depressed today, but does not know why; agrees to increase wellbutrin 10/27 continue tx regimen PLAN: Admit, 15 minute checks continue Cymbalta Increase to Wellbutrin XR 300mg for depression Restarting Gabapentin 300mg tid (was on before and helped w/ neuropathic pain and anxiety) will restart metformin 500mg BID (will likely titrate to 1000mg bid his home dose) will restart trulicity weekly (he missed last week) clonidine0.1mg qhs lowered zyprexa to 7.5mg; pt denies psychotic symptoms other than echoes, distant voice that only occur when depressed Wound consult-foot Triamcinolone cream-underarm rash Chlorpromazine trial prn (pt reports very helpful by hx for sx mgt) Decrease chlorpromaxine to 25 mg qid prn Decrease olanzapine to 20 mg HS Decrease Benztropine to 0.5 mg bid Patient educated on: diagnosis, medication risk/benefits and therapeutic strategies Informed Consent: understands Wound consult-foot Triamcinolone cream-underarm rash Chlorpromazine trial prn (pt reports very helpful by hx for sx mgt) Decrease chlorpromaxine to 25 mg qid prn Decrease olanzapine to 20 mg HS Decrease Benztropine to 0.5 mg bid Patient educated on: diagnosis and medication risk/benefits Informed Consent: understands Reason for continued inpatient stay Substantial Risk for: rapid decompensation Time Spent With Patient Time: Total time managing care of this patient today ____ minutes.
[2024-10-27] MEDS: chlorproMAZINE HCl 25 MG TABLET PO ×2 (10:42→21:22)
[2024-10-27] MEDS: Nicotine Polacrilex Lozenge 4 MG LOZENGE BUCCAL ×5 (10:42→21:07)
[2024-10-27 12:08] LABS: Glucose, Whole Blood 127 mg/dL (60-115)
[2024-10-27] MEDS: Magnesium Hydrox/Alum Hydrox 30 ML ORAL.SUSP PO (13:59)
[2024-10-27 17:21] LABS: Glucose, Whole Blood 100 mg/dL (60-115)
[2024-10-27 19:44] VITALS: BP 98/68; PULSE 92; RESP 16; TEMP 36.4; O2SAT 96
[2024-10-27] MEDS: OLANZapine 7.5 MG TABLET PO (21:15)
[2024-10-27 21:16] VITALS: BP 100/60
[2024-10-27] MEDS: Melatonin 3 MG TABLET PO (21:16)
[2024-10-27] MEDS: cloNIDine HCL 0.1 MG TABLET PO (21:16)
[2024-10-27 21:53] LABS: Glucose, Whole Blood 132 mg/dL (60-115)
[2024-10-28] MEDS: Omeprazole 40 MG CAPSULE.DR PO ×2 (07:19→16:11)
[2024-10-28] MEDS: methADONE HCl 20 MG/2 ML ORAL.CONC 140 MG PO (07:53)
[2024-10-28 08:00] VITALS: BP 114/72; PULSE 74; RESP 16; TEMP 36.4; O2SAT 98
[2024-10-28 08:49] LABS: Glucose, Whole Blood 125 mg/dL (60-115)
[2024-10-28] MEDS: Nicotine 21 MG PATCH.TD24 TRANSDERMA (08:53)
[2024-10-28 08:54] VITALS: BP 114/72
[2024-10-28] MEDS: Bictegrav/Emtricit/Tenofov Ala TABLET 1 TAB PO (08:54)
[2024-10-28] MEDS: cloNIDine HCL 0.1 MG TABLET PO ×2 (08:54→21:31)
[2024-10-28] MEDS: Benztropine Mesylate 0.5 MG TABLET PO ×2 (08:54→20:26)
[2024-10-28] MEDS: Aspirin 81 MG TAB.CHEW PO (08:54)
[2024-10-28] MEDS: buPROPion HCl XL 300 MG TAB.ER.24H PO (08:54)
[2024-10-28] MEDS: hydroCHLOROthiazide 25 MG TABLET PO (08:54)
[2024-10-28] MEDS: metFORMIN HCl ER 500 MG TAB.ER.24H PO ×2 (08:54→20:25)
[2024-10-28] MEDS: Atorvastatin Calcium 80 MG TABLET PO (08:55)
[2024-10-28] MEDS: DULoxetine HCl 60 MG CAPSULE.DR 120 MG PO (08:55)
[2024-10-28] MEDS: Cholecalciferol (Vitamin D3) 25 MCG TABLET PO (08:55)
[2024-10-28] MEDS: Gabapentin 300 MG CAPSULE PO ×3 (08:55→20:26)
[2024-10-28] MEDS: Valsartan 80 MG TABLET PO (08:55)
[2024-10-28] MEDS: Triamcinolone Acet 0.1 % Cream 15 GM TUBE 1 APPL TOPICAL (08:56)
[2024-10-28] MEDS: Nicotine Polacrilex Lozenge 4 MG LOZENGE BUCCAL ×4 (08:58→18:52)
--- NOTE | 2024-10-28 12:15 | HO.PSYCHPN ---
Subjective Subjective Date of Service: 10/28/24 Reason For Visit: Major depressive d/o PTSD Opioid Use Disorder Mode Interim History: met with pt; discussed with team reports mood is alright and is slowly getting a little better, out of room more, easier to push self to do ADL's; thus will leave wellbutrin as is for now nightmares returned for past 2 days, which do during times of depression. Discussed Prazosin and how it can cause lightheadedness/dizziness... agreed to try it anyway since nightmare are bothersome Mental Status Exam Mental Status Exam Narrative: Pt is alert and oriented; behavior is cooperative, quiet, but a little more engaged; patient is not in distress; dressed in hospital attire, unkempt, but adequate hygiene; mood is described as alright and affect congruent, less downcast; eye contact a little avoidant; Speech is still a little slowed and soft; not pressured; psychomotor retardation remains present; thought process is organized and goal directed; Thought content is on trying to be hopeful and tx; otherwise pertinent to relevant topics and without any delusional content, paranoid ideations or grandiosity; no SI; no HI; No AVH; There is no evidence of perceptual disturbance. Patients insight and judgment impaired but improving Diagnostics Vital Signs (24Hr): Vital Signs - 24 hr 10/27/24 19:44 10/27/24 21:16 10/28/24 08:00 Temperature 97.6 F 97.5 F Pulse Rate 92 74 Respiratory Rate 16 16 Blood Pressure 98/68 100/60 114/72 Pulse Oximetry 96 98 Oxygen Delivery Method Room Air Room Air 10/28/24 08:54 Temperature Pulse Rate Respiratory Rate Blood Pressure 114/72 Pulse Oximetry Oxygen Delivery Method BMI result Body Mass Index 32.5 Labs 10/25/24 13:47 Labs: Laboratory Results - last 48 hr 10/26/24 10/26/24 10/27/24 12:22 20:29 08:18 POC Glucose 145 H 119 H 145 H 10/27/24 10/27/24 10/27/24 12:04 17:06 20:51 POC Glucose 127 H 100 132 H 10/28/24 08:45 POC Glucose 125 H Medications Medications Current Medications Acetaminophen (Acetaminophen 325 Mg Tablet) 650 mg PO Q6H PRN PRN Reason: Headache/Pain, Scale 1-10 Last Admin: 10/24/24 13:35 Dose: 650 mg Al Hydroxide/Mg Hydroxide (Magnesium Hydrox/Alum Hydrox 30 Ml Oral.Susp) 30 ml PO Q6H PRN PRN Reason: Heartburn/Nausea Last Admin: 10/27/24 13:59 Dose: 30 ml Aspirin (Aspirin 81 Mg Tab.Chew) 81 mg PO DAILY [facility] Last Admin: 10/28/24 08:54 Dose: 81 mg Atorvastatin Calcium (Atorvastatin Calcium 80 Mg Tablet) 80 mg PO DAILY [facility] Last Admin: 10/28/24 08:55 Dose: 80 mg Benztropine Mesylate (Benztropine Mesylate 0.5 Mg Tablet) 0.5 mg PO BID [facility] Last Admin: 10/28/24 08:54 Dose: 0.5 mg Bictegravir/Emtricitabine/Tenofovir (Bictegrav/Emtricit/Tenofov Ala Tablet) 1 tab PO DAILY [facility] Last Admin: 10/28/24 08:54 Dose: 1 tab Bupropion HCl (Bupropion Hcl Xl 300 Mg Tab.Er.24h) 300 mg PO DAILY [facility] Last Admin: 10/28/24 08:54 Dose: 300 mg Chlorpromazine HCl (Chlorpromazine Hcl 25 Mg Tablet) 25 mg PO QID PRN PRN Reason: anxiety-severe Last Admin: 10/27/24 21:22 Dose: 25 mg Clonidine HCl (Clonidine Hcl 0.1 Mg Tablet) 0.1 mg PO Q4H PRN; Protocol PRN Reason: moderate anxiety Clonidine HCl (Clonidine Hcl 0.1 Mg Tablet) 0.1 mg PO BID [facility]; Protocol Last Admin: 10/28/24 08:54 Dose: 0.1 mg Duloxetine HCl (Duloxetine Hcl 60 Mg Capsule.Dr) 120 mg PO DAILY [facility] Last Admin: 10/28/24 08:55 Dose: 120 mg Fluticasone/Umeclidinium/Vilanterol (Fluticasone/Umeclidinium/Vilanterol 100/62.5/25 Blst.W.Dev) 1 puff INHALE RDAILY [facility] Last Admin: 10/28/24 08:59 Dose: Not Given Gabapentin (Gabapentin 300 Mg Capsule) 300 mg PO TID [facility] Last Admin: 10/28/24 08:55 Dose: 300 mg Hydrochlorothiazide (Hydrochlorothiazide 25 Mg Tablet) 25 mg PO DAILY [facility]; Protocol Last Admin: 10/28/24 08:54 Dose: 25 mg Hydroxyzine HCl (Hydroxyzine Hcl 25 Mg Tablet) 25 mg PO Q6H PRN PRN Reason: mild anxiety Last Admin: 10/26/24 20:49 Dose: 25 mg Magnesium Hydroxide (Milk Of Magnesia 30 Ml Oral.Susp) 30 ml PO DAILY PRN PRN Reason: Constipation Melatonin (Melatonin 3 Mg Tablet) 3 mg PO BEDTIME [facility] Last Admin: 10/27/24 21:16 Dose: 3 mg Metformin HCl (Metformin Hcl Er 500 Mg Tab.Er.24h) 500 mg PO BID [facility] Last Admin: 10/28/24 08:54 Dose: 500 mg Methadone HCl (Methadone Hcl 20 Mg/2 Ml Oral.Conc) 140 mg PO DAILY@0800 [facility] Last Admin: 10/28/24 07:53 Dose: 140 mg Multi-Ingred Cream/Lotion/Oil/Oint (Mineral Oil/Petrolatum,White 106 Gm Tube) 1 appl TOPICAL BID [facility]; Protocol Last Admin: 10/28/24 08:58 Dose: Not Given Nicotine (Nicotine 21 Mg Patch.Td24) 21 mg TRANSDERMA DAILY [facility] Last Admin: 10/28/24 08:53 Dose: 21 mg Nicotine Polacrilex (Nicotine Polacrilex Lozenge 4 Mg Lozenge) 4 mg BUCCAL Q2H PRN PRN Reason: Nicotine Cravings Last Admin: 10/28/24 08:58 Dose: 4 mg Pt Owned Med ( Trulicity 1.5mg / 0. 5ml) 1 each SUBCUT Th@0900 [facility] Last Admin: 10/26/24 13:46 Dose: 1 each Nystatin (Nystatin Cream 15 Gm Tube) 1 appl TOPICAL BID PRN; Protocol PRN Reason: Rash Last Admin: 10/25/24 09:09 Dose: 1 appl Olanzapine (Olanzapine 7.5 Mg Tablet) 7.5 mg PO BEDTIME [facility] Last Admin: 10/27/24 21:15 Dose: 7.5 mg Omeprazole (Omeprazole 40 Mg Capsule.Dr) 40 mg PO BID@0630,1630 [facility] Last Admin: 10/28/24 07:19 Dose: 40 mg Trazodone HCl (Trazodone Hcl 50 Mg Tablet) 50 mg PO BEDTIME MRX1 PRN PRN Reason: Insomnia Last Admin: 10/26/24 20:53 Dose: 50 mg Triamcinolone Acetonide (Triamcinolone Acet 0.1 % Cream 15 Gm Tube) 1 appl TOPICAL BID [facility]; Protocol Last Admin: 10/28/24 08:56 Dose: 1 appl Valsartan (Valsartan 80 Mg Tablet) 80 mg PO DAILY [facility] Last Admin: 10/28/24 08:55 Dose: 80 mg Vitamin D (Cholecalciferol (Vitamin D3) 25 Mcg Tablet) 25 mcg PO DAILY [facility] Last Admin: 10/28/24 08:55 Dose: 25 mcg Allergies Allergies Allergy/AdvReac Type Severity Reaction Status Date / Time latex [LATEX] Allergy Unknown UNKNOWN Verified 02/09/21 03:06 From PERCOCET Allergy Unknown UNKNOWN Uncoded 02/09/21 03:06 Assessment & Plan Assessment & Plan (1) MDD (major depressive disorder), recurrent, severe, with psychosis: Status: Acute Code(s): F33.3 - Major depressive disorder, recurrent, severe with psychotic symptoms (2) PTSD (post-traumatic stress disorder): Status: Acute Code(s): F43.10 - Post-traumatic stress disorder, unspecified (3) Opioid use disorder: Status: Acute Code(s): F11.99 - Opioid use, unspecified with unspecified opioid-induced disorder (4) Cocaine abuse: Status: Acute Code(s): F14.10 - Cocaine abuse, uncomplicated (5) Polysubstance use disorder: Status: Acute Code(s): F19.90 - Other psychoactive substance use, unspecified, uncomplicated Plan Hospital course: 10/23 Decrease chlorpromaxine to 25 mg qid prn Decrease olanzapine to 20 mg HS Decrease Benztropine to 0.5 mg bid 10/24 shared recent hx and pt reports he has been off medications for 3 weeks following relapse after 15-16 months of sobriety. Thinks relapse maybe partly due to the one year anniversary of his girlfriends . While sober, on Gabapentin, Cymbalta, trazodone, pt mood good, though anxiety/panic remained. Currently, still very depressed; says SI thoughts come and go, which are still lingering; some he can shrug off. AH less now. -Agreed to get back on Gabapentin which he used for nerve pain, but also helped with anxiety -discussed dx since he carries bipolar dx; However, pt says longest manic episode lasts only a day at most and usually only a couple of hours -shared about family relationships -talked about growing up; HS Impression:will change dx to MDD with pschotic features (he agrees with change in dx; will leave bipolar as rule out, however from reporting does not meet criteria). remains depressed but only just back on meds. 10/25 still very depressed; forcing self to go to groups and says almost panicked, but went out of group for a bit, calmed down and then returned. Reviewed options and pt agrees to try Wellbutrin XR 150mg for depression 10/26 pt reports he's feeling very depressed today, but does not know why; agrees to increase wellbutrin 10/27 continue tx regimen 10/28 reports mood is alright and is slowly getting a little better, out of room more, easier to push self to do ADL's; thus will leave wellbutrin as is for now -nightmares returned for past 2 days, which do during times of depression. Discussed Prazosin and how it can cause lightheadedness/dizziness... agreed to try it anyway since nightmare are bothersome PLAN: Admit, 15 minute checks Add prazosin 1mg qhs for nightmares continue Cymbalta 120mg Increase to Wellbutrin XR 300mg for depression Restarting Gabapentin 300mg tid (was on before and helped w/ neuropathic pain and anxiety) restarted metformin 500mg BID (will likely titrate to 1000mg bid his home dose) trulicity weekly (he missed last week) clonidine0.1mg qhs lowered zyprexa to 7.5mg; pt denies psychotic symptoms other than echoes, distant voice that only occur when depressed Wound consult-foot Triamcinolone cream-underarm rash Chlorpromazine trial prn (pt reports very helpful by hx for sx mgt) Decrease chlorpromaxine to 25 mg qid prn Decrease olanzapine to 20 mg HS Decrease Benztropine to 0.5 mg bid Patient educated on: diagnosis, medication risk/benefits and therapeutic strategies Informed Consent: understands Wound consult-foot Triamcinolone cream-underarm rash Chlorpromazine trial prn (pt reports very helpful by hx for sx mgt) Decrease chlorpromaxine to 25 mg qid prn Decrease olanzapine to 20 mg HS Decrease Benztropine to 0.5 mg bid Patient educated on: diagnosis, medication risk/benefits and therapeutic strategies Informed Consent: understands Reason for continued inpatient stay Substantial Risk for: rapid decompensation Time Spent With Patient Time: Total time managing care of this patient today ____ minutes.
[2024-10-28 12:17] LABS: Glucose, Whole Blood 160 mg/dL (60-115)
[2024-10-28 17:29] LABS: Glucose, Whole Blood 175 mg/dL (60-115)
[2024-10-28] MEDS: Magnesium Hydrox/Alum Hydrox 30 ML ORAL.SUSP PO (17:52)
[2024-10-28] MEDS: chlorproMAZINE HCl 25 MG TABLET PO (18:52)
[2024-10-28] MEDS: hydrOXYzine HCL 25 MG TABLET PO (18:52)
[2024-10-28 20:00] VITALS: BP 93/62; TEMP 36.6; O2SAT 99
[2024-10-28] MEDS: Prazosin HCL 1 MG CAPSULE PO (20:25)
[2024-10-28] MEDS: Melatonin 3 MG TABLET PO (20:26)
[2024-10-28] MEDS: OLANZapine 7.5 MG TABLET PO (20:26)
[2024-10-28] MEDS: traZODone HCL 50 MG TABLET PO (20:26)
[2024-10-28 21:36] LABS: Glucose, Whole Blood 177 mg/dL (60-115)
[2024-10-29] MEDS: Omeprazole 40 MG CAPSULE.DR PO ×2 (06:00→15:59)
[2024-10-29] MEDS: Nicotine Polacrilex Lozenge 4 MG LOZENGE BUCCAL ×4 (06:00→20:48)
[2024-10-29] MEDS: chlorproMAZINE HCl 25 MG TABLET PO (06:00)
[2024-10-29] MEDS: methADONE HCl 20 MG/2 ML ORAL.CONC 140 MG PO (07:39)
[2024-10-29 07:59] LABS: Glucose, Whole Blood 128 mg/dL (60-115)
[2024-10-29] MEDS: Nicotine 21 MG PATCH.TD24 TRANSDERMA (08:49)
[2024-10-29 08:50] VITALS: BP 119/73; PULSE 84; RESP 16; TEMP 36.4; O2SAT 98
[2024-10-29] MEDS: DULoxetine HCl 60 MG CAPSULE.DR 120 MG PO (08:50)
[2024-10-29] MEDS: Valsartan 80 MG TABLET PO (08:50)
[2024-10-29] MEDS: Benztropine Mesylate 0.5 MG TABLET PO ×2 (08:50→20:18)
[2024-10-29] MEDS: Cholecalciferol (Vitamin D3) 25 MCG TABLET PO (08:50)
[2024-10-29] MEDS: Aspirin 81 MG TAB.CHEW PO (08:50)
[2024-10-29 08:51] VITALS: BP 119/73
[2024-10-29] MEDS: hydroCHLOROthiazide 25 MG TABLET PO (08:51)
[2024-10-29] MEDS: metFORMIN HCl ER 500 MG TAB.ER.24H PO ×2 (08:51→20:17)
[2024-10-29] MEDS: buPROPion HCl XL 300 MG TAB.ER.24H PO (08:51)
[2024-10-29] MEDS: Atorvastatin Calcium 80 MG TABLET PO (08:51)
[2024-10-29] MEDS: cloNIDine HCL 0.1 MG TABLET PO ×2 (08:51→20:18)
[2024-10-29] MEDS: Gabapentin 300 MG CAPSULE PO ×3 (08:51→20:16)
[2024-10-29] MEDS: Bictegrav/Emtricit/Tenofov Ala TABLET 1 TAB PO (08:51)
[2024-10-29] MEDS: Mineral Oil/Petrolatum,White 106 GM Tube 1 APPL TOPICAL ×2 (08:58→20:25)
[2024-10-29] MEDS: Triamcinolone Acet 0.1 % Cream 15 GM TUBE 1 APPL TOPICAL ×2 (08:58→20:25)
[2024-10-29] MEDS: Fluticasone/Umeclidinium/Vilanterol 100/62.5/25 BLST.W.DEV 1 PUFF INHALE (08:58)
[2024-10-29] MEDS: Magnesium Hydrox/Alum Hydrox 30 ML ORAL.SUSP PO (09:07)
--- NOTE | 2024-10-29 10:13 | HO.PSYCHPN ---
Subjective Subjective Date of Service: 10/29/24 Reason For Visit: Major depressive d/o PTSD Opioid Use Disorder Mode Interim History: Met with patient; discussed with team Patient reports feeling a little better again today. That depression and anxiety are lower. Still had nightmares but not as bad. Complains of heartburn and starting famotidine p.r.n. Mental Status Exam Mental Status Exam Narrative: Pt is alert and oriented; behavior is cooperative, quiet, but a little more engaged; patient is not in distress; dressed in hospital attire, unkempt, but adequate hygiene; mood is described as alright and affect congruent, less downcast; eye contact a little avoidant; Speech is still a little slowed and soft; not pressured; psychomotor retardation remains present; thought process is organized and goal directed; Thought content is on trying to be hopeful and tx; otherwise pertinent to relevant topics and without any delusional content, paranoid ideations or grandiosity; no SI; no HI; No AVH; There is no evidence of perceptual disturbance. Patients insight and judgment impaired but improving Diagnostics Vital Signs (24Hr): Vital Signs - 24 hr 10/28/24 20:00 10/29/24 08:50 10/29/24 08:50 Temperature 97.8 F 97.5 F Pulse Rate 84 Respiratory Rate 16 Blood Pressure 93/62 119/73 119/73 Pulse Oximetry 99 98 Oxygen Delivery Method Room Air Room Air 10/29/24 08:51 10/29/24 08:51 Temperature Pulse Rate Respiratory Rate Blood Pressure 119/73 119/73 Pulse Oximetry Oxygen Delivery Method BMI result Body Mass Index 32.5 Labs 10/25/24 13:47 Labs: Laboratory Results - last 48 hr 10/27/24 10/27/24 10/27/24 12:04 17:06 20:51 POC Glucose 127 H 100 132 H 10/28/24 10/28/24 10/28/24 08:45 12:08 17:22 POC Glucose 125 H 160 H 175 H 10/28/24 10/29/24 20:43 07:49 POC Glucose 177 H 128 H Medications Medications Current Medications Acetaminophen (Acetaminophen 325 Mg Tablet) 650 mg PO Q6H PRN PRN Reason: Headache/Pain, Scale 1-10 Last Admin: 10/24/24 13:35 Dose: 650 mg Al Hydroxide/Mg Hydroxide (Magnesium Hydrox/Alum Hydrox 30 Ml Oral.Susp) 30 ml PO Q6H PRN PRN Reason: Heartburn/Nausea Last Admin: 10/29/24 09:07 Dose: 30 ml Aspirin (Aspirin 81 Mg Tab.Chew) 81 mg PO DAILY [facility] Last Admin: 10/29/24 08:50 Dose: 81 mg Atorvastatin Calcium (Atorvastatin Calcium 80 Mg Tablet) 80 mg PO DAILY [facility] Last Admin: 10/29/24 08:51 Dose: 80 mg Benztropine Mesylate (Benztropine Mesylate 0.5 Mg Tablet) 0.5 mg PO BID [facility] Last Admin: 10/29/24 08:50 Dose: 0.5 mg Bictegravir/Emtricitabine/Tenofovir (Bictegrav/Emtricit/Tenofov Ala Tablet) 1 tab PO DAILY [facility] Last Admin: 10/29/24 08:51 Dose: 1 tab Bupropion HCl (Bupropion Hcl Xl 300 Mg Tab.Er.24h) 300 mg PO DAILY [facility] Last Admin: 10/29/24 08:51 Dose: 300 mg Chlorpromazine HCl (Chlorpromazine Hcl 25 Mg Tablet) 25 mg PO QID PRN PRN Reason: anxiety-severe Last Admin: 10/29/24 06:00 Dose: 25 mg Clonidine HCl (Clonidine Hcl 0.1 Mg Tablet) 0.1 mg PO Q4H PRN; Protocol PRN Reason: moderate anxiety Clonidine HCl (Clonidine Hcl 0.1 Mg Tablet) 0.1 mg PO BID [facility]; Protocol Last Admin: 10/29/24 08:51 Dose: 0.1 mg Duloxetine HCl (Duloxetine Hcl 60 Mg Capsule.Dr) 120 mg PO DAILY [facility] Last Admin: 10/29/24 08:50 Dose: 120 mg Fluticasone/Umeclidinium/Vilanterol (Fluticasone/Umeclidinium/Vilanterol 100/62.5/25 Blst.W.Dev) 1 puff INHALE RDAILY [facility] Last Admin: 10/29/24 08:58 Dose: 1 puff Gabapentin (Gabapentin 300 Mg Capsule) 300 mg PO TID [facility] Last Admin: 10/29/24 08:51 Dose: 300 mg Hydrochlorothiazide (Hydrochlorothiazide 25 Mg Tablet) 25 mg PO DAILY [facility]; Protocol Last Admin: 10/29/24 08:51 Dose: 25 mg Hydroxyzine HCl (Hydroxyzine Hcl 25 Mg Tablet) 25 mg PO Q6H PRN PRN Reason: mild anxiety Last Admin: 10/28/24 18:52 Dose: 25 mg Magnesium Hydroxide (Milk Of Magnesia 30 Ml Oral.Susp) 30 ml PO DAILY PRN PRN Reason: Constipation Melatonin (Melatonin 3 Mg Tablet) 3 mg PO BEDTIME [facility] Last Admin: 10/28/24 20:26 Dose: 3 mg Metformin HCl (Metformin Hcl Er 500 Mg Tab.Er.24h) 500 mg PO BID [facility] Last Admin: 10/29/24 08:51 Dose: 500 mg Methadone HCl (Methadone Hcl 20 Mg/2 Ml Oral.Conc) 140 mg PO DAILY@0800 [facility] Last Admin: 10/29/24 07:39 Dose: 140 mg Multi-Ingred Cream/Lotion/Oil/Oint (Mineral Oil/Petrolatum,White 106 Gm Tube) 1 appl TOPICAL BID [facility]; Protocol Last Admin: 10/29/24 08:58 Dose: 1 appl Nicotine (Nicotine 21 Mg Patch.Td24) 21 mg TRANSDERMA DAILY [facility] Last Admin: 10/29/24 08:49 Dose: 21 mg Nicotine Polacrilex (Nicotine Polacrilex Lozenge 4 Mg Lozenge) 4 mg BUCCAL Q2H PRN PRN Reason: Nicotine Cravings Last Admin: 10/29/24 06:00 Dose: 4 mg Pt Owned Med ( Trulicity 1.5mg / 0. 5ml) 1 each SUBCUT Th@0900 [facility] Last Admin: 10/26/24 13:46 Dose: 1 each Nystatin (Nystatin Cream 15 Gm Tube) 1 appl TOPICAL BID PRN; Protocol PRN Reason: Rash Last Admin: 10/25/24 09:09 Dose: 1 appl Olanzapine (Olanzapine 7.5 Mg Tablet) 7.5 mg PO BEDTIME [facility] Last Admin: 10/28/24 20:26 Dose: 7.5 mg Omeprazole (Omeprazole 40 Mg Capsule.Dr) 40 mg PO BID@0630,1630 [facility] Last Admin: 10/29/24 06:00 Dose: 40 mg Ondansetron HCl (Ondansetron Odt 4 Mg Tab.Rapdis) 4 mg TRANSLINGU Q6H PRN PRN Reason: Nausea and Vomiting Prazosin HCl (Prazosin Hcl 1 Mg Capsule) 1 mg PO BEDTIME [facility]; Protocol Last Admin: 10/28/24 20:25 Dose: 1 mg Trazodone HCl (Trazodone Hcl 50 Mg Tablet) 50 mg PO BEDTIME MRX1 PRN PRN Reason: Insomnia Last Admin: 10/28/24 20:26 Dose: 50 mg Triamcinolone Acetonide (Triamcinolone Acet 0.1 % Cream 15 Gm Tube) 1 appl TOPICAL BID [facility]; Protocol Last Admin: 10/29/24 08:58 Dose: 1 appl Valsartan (Valsartan 80 Mg Tablet) 80 mg PO DAILY [facility] Last Admin: 10/29/24 08:50 Dose: 80 mg Vitamin D (Cholecalciferol (Vitamin D3) 25 Mcg Tablet) 25 mcg PO DAILY [facility] Last Admin: 10/29/24 08:50 Dose: 25 mcg Allergies Allergies Allergy/AdvReac Type Severity Reaction Status Date / Time latex [LATEX] Allergy Unknown UNKNOWN Verified 02/09/21 03:06 From PERCOCET Allergy Unknown UNKNOWN Uncoded 02/09/21 03:06 Assessment & Plan Assessment & Plan (1) MDD (major depressive disorder), recurrent, severe, with psychosis: Status: Acute Code(s): F33.3 - Major depressive disorder, recurrent, severe with psychotic symptoms (2) PTSD (post-traumatic stress disorder): Status: Acute Code(s): F43.10 - Post-traumatic stress disorder, unspecified (3) Opioid use disorder: Status: Acute Code(s): F11.99 - Opioid use, unspecified with unspecified opioid-induced disorder (4) Cocaine abuse: Status: Acute Code(s): F14.10 - Cocaine abuse, uncomplicated (5) Polysubstance use disorder: Status: Acute Code(s): F19.90 - Other psychoactive substance use, unspecified, uncomplicated Plan Hospital course: 10/23 Decrease chlorpromaxine to 25 mg qid prn Decrease olanzapine to 20 mg HS Decrease Benztropine to 0.5 mg bid 10/24 shared recent hx and pt reports he has been off medications for 3 weeks following relapse after 15-16 months of sobriety. Thinks relapse maybe partly due to the one year anniversary of his girlfriends . While sober, on Gabapentin, Cymbalta, trazodone, pt mood good, though anxiety/panic remained. Currently, still very depressed; says SI thoughts come and go, which are still lingering; some he can shrug off. AH less now. -Agreed to get back on Gabapentin which he used for nerve pain, but also helped with anxiety -discussed dx since he carries bipolar dx; However, pt says longest manic episode lasts only a day at most and usually only a couple of hours -shared about family relationships -talked about growing up; HS Impression:will change dx to MDD with pschotic features (he agrees with change in dx; will leave bipolar as rule out, however from reporting does not meet criteria). remains depressed but only just back on meds. 10/25 still very depressed; forcing self to go to groups and says almost panicked, but went out of group for a bit, calmed down and then returned. Reviewed options and pt agrees to try Wellbutrin XR 150mg for depression 10/26 pt reports he's feeling very depressed today, but does not know why; agrees to increase wellbutrin 10/27 continue tx regimen 10/28 reports mood is alright and is slowly getting a little better, out of room more, easier to push self to do ADL's; thus will leave wellbutrin as is for now -nightmares returned for past 2 days, which do during times of depression. Discussed Prazosin and how it can cause lightheadedness/dizziness... agreed to try it anyway since nightmare are bothersome 10/29 patient reports he is starting to feel little better; nightmares less intense; continue current regimen PLAN: Admit, 15 minute checks Add prazosin 1mg qhs for nightmares continue Cymbalta 120mg Increase to Wellbutrin XR 300mg for depression Restarting Gabapentin 300mg tid (was on before and helped w/ neuropathic pain and anxiety) restarted metformin 500mg BID (will likely titrate to 1000mg bid his home dose) trulicity weekly (he missed last week) clonidine0.1mg qhs lowered zyprexa to 7.5mg; pt denies psychotic symptoms other than echoes, distant voice that only occur when depressed Wound consult-foot Triamcinolone cream-underarm rash Chlorpromazine trial prn (pt reports very helpful by hx for sx mgt) Decrease chlorpromaxine to 25 mg qid prn Decrease olanzapine to 20 mg HS Decrease Benztropine to 0.5 mg bid Patient educated on: diagnosis, medication risk/benefits and therapeutic strategies Informed Consent: understands Wound consult-foot Triamcinolone cream-underarm rash Chlorpromazine trial prn (pt reports very helpful by hx for sx mgt) Decrease chlorpromaxine to 25 mg qid prn Decrease olanzapine to 20 mg HS Decrease Benztropine to 0.5 mg bid Patient educated on: diagnosis, medication risk/benefits and therapeutic strategies Informed Consent: understands Reason for continued inpatient stay Substantial Risk for: rapid decompensation Time Spent With Patient Time: Total time managing care of this patient today ____ minutes.
[2024-10-29 11:57] LABS: Glucose, Whole Blood 159 mg/dL (60-115)
[2024-10-29] MEDS: Famotidine 20 MG TABLET PO (12:22)
[2024-10-29 17:21] LABS: Glucose, Whole Blood 150 mg/dL (60-115)
[2024-10-29 20:00] VITALS: BP 110/72; PULSE 88; TEMP 36.6; O2SAT 96
[2024-10-29] MEDS: OLANZapine 7.5 MG TABLET PO (20:14)
[2024-10-29 20:15] LABS: Glucose, Whole Blood 130 mg/dL (60-115)
[2024-10-29] MEDS: Acetaminophen 325 MG TABLET 650 MG PO (20:15)
[2024-10-29 20:17] VITALS: BP 110/72
[2024-10-29] MEDS: Prazosin HCL 1 MG CAPSULE PO (20:17)
[2024-10-29 20:18] VITALS: BP 110/72
[2024-10-29] MEDS: Melatonin 3 MG TABLET PO (20:19)
[2024-10-29] MEDS: traZODone HCL 50 MG TABLET PO (20:19)
[2024-10-30] MEDS: chlorproMAZINE HCl 25 MG TABLET PO ×2 (04:17→14:26)
[2024-10-30] MEDS: Nicotine Polacrilex Lozenge 4 MG LOZENGE BUCCAL ×4 (04:21→21:55)
[2024-10-30] MEDS: Omeprazole 40 MG CAPSULE.DR PO ×2 (07:27→16:20)
[2024-10-30] MEDS: methADONE HCl 20 MG/2 ML ORAL.CONC 140 MG PO (07:35)
[2024-10-30 07:44] LABS: Glucose, Whole Blood 151 mg/dL (60-115)
[2024-10-30 08:00] VITALS: BP 118/66; PULSE 72; RESP 16; TEMP 36.4; O2SAT 97
[2024-10-30 09:32] VITALS: BP 118/66
[2024-10-30] MEDS: DULoxetine HCl 60 MG CAPSULE.DR 120 MG PO (09:32)
[2024-10-30] MEDS: Valsartan 80 MG TABLET PO (09:32)
[2024-10-30] MEDS: Cholecalciferol (Vitamin D3) 25 MCG TABLET PO (09:32)
[2024-10-30] MEDS: Bictegrav/Emtricit/Tenofov Ala TABLET 1 TAB PO (09:32)
[2024-10-30] MEDS: hydroCHLOROthiazide 25 MG TABLET PO (09:32)
[2024-10-30 09:33] VITALS: BP 118/66
[2024-10-30] MEDS: Atorvastatin Calcium 80 MG TABLET PO (09:33)
[2024-10-30] MEDS: cloNIDine HCL 0.1 MG TABLET PO ×3 (09:33→21:52)
[2024-10-30] MEDS: Famotidine 20 MG TABLET PO (09:33)
[2024-10-30] MEDS: Gabapentin 300 MG CAPSULE PO ×3 (09:33→21:51)
[2024-10-30] MEDS: metFORMIN HCl ER 500 MG TAB.ER.24H PO ×2 (09:33→21:51)
[2024-10-30] MEDS: Aspirin 81 MG TAB.CHEW PO (09:33)
[2024-10-30] MEDS: buPROPion HCl XL 300 MG TAB.ER.24H PO (09:33)
[2024-10-30] MEDS: Fluticasone/Umeclidinium/Vilanterol 100/62.5/25 BLST.W.DEV 1 PUFF INHALE (09:34)
[2024-10-30] MEDS: Nicotine 21 MG PATCH.TD24 TRANSDERMA (09:34)
[2024-10-30] MEDS: Benztropine Mesylate 0.5 MG TABLET PO ×2 (09:38→21:51)
--- NOTE | 2024-10-30 09:42 | P.PNPSI_ITS ---
Subjective Subjective Date of Service: 10/30/24 Reason For Visit: Major depressive d/o PTSD Opioid Use Disorder Mode Interim History: Met with patient; discussed with team Patient remains overall doing better, mood is better and would like to leave Wellbutrin as it is. However he continues to have nightmares from childhood trauma. Patient shared a little about history of trauma, that he has never talked about it before or processed it, finding it hard to trust people. Discussed the role of therapy and how it can help and patient said he very much feels the need to engage with a therapist. Given nightmares patient agreed to increase prazosin. Discussed last night's bout of confusion where he was unclear where his room was and accidentally got into his roommate's bed (which was empty) to sleep; he does not remember much of it and says he has been told that he sleep walks. Patient currently presents organized in speech behavior Mental Status Exam Mental Status Exam Narrative: Pt is alert and oriented; behavior is cooperative, quiet, but a little more engaged; patient is not in distress; dressed in hospital attire, unkempt, but adequate hygiene; mood is described as alright and affect congruent, less downcast; eye contact a little avoidant; Speech is still a little slowed and soft (might be baseline); psychomotor retardation remains present; thought process is organized and goal directed; Thought content is on processing feelings, remembering some trauma, treatment; otherwise pertinent to relevant topics and without any delusional content, paranoid ideations or grandiosity; no SI; no HI; No AVH; There is no evidence of perceptual disturbance. Patients insight and judgment fair Diagnostics Vital Signs (24Hr): Vital Signs - 24 hr 10/29/24 20:00 10/29/24 20:17 10/29/24 20:18 Temperature 97.8 F Pulse Rate 88 Blood Pressure 110/72 110/72 110/72 Pulse Oximetry 96 Oxygen Delivery Method Room Air BMI result Body Mass Index 32.5 Labs 10/30/24 10:11 10/30/24 10:11 Labs: Laboratory Results - last 48 hr 10/28/24 10/28/24 10/28/24 12:08 17:22 20:43 POC Glucose 160 H 175 H 177 H 10/29/24 10/29/24 10/29/24 07:49 11:52 17:14 POC Glucose 128 H 159 H 150 H 10/29/24 10/30/24 20:02 07:41 POC Glucose 130 H 151 H Medications Medications Current Medications Acetaminophen (Acetaminophen 325 Mg Tablet) 650 mg PO Q6H PRN PRN Reason: Headache/Pain, Scale 1-10 Last Admin: 10/29/24 20:15 Dose: 650 mg Al Hydroxide/Mg Hydroxide (Magnesium Hydrox/Alum Hydrox 30 Ml Oral.Susp) 30 ml PO Q6H PRN PRN Reason: Heartburn/Nausea Last Admin: 10/29/24 09:07 Dose: 30 ml Aspirin (Aspirin 81 Mg Tab.Chew) 81 mg PO DAILY [facility] Last Admin: 10/29/24 08:50 Dose: 81 mg Atorvastatin Calcium (Atorvastatin Calcium 80 Mg Tablet) 80 mg PO DAILY [facility] Last Admin: 10/29/24 08:51 Dose: 80 mg Benztropine Mesylate (Benztropine Mesylate 0.5 Mg Tablet) 0.5 mg PO BID [facility] Last Admin: 10/29/24 20:18 Dose: 0.5 mg Bictegravir/Emtricitabine/Tenofovir (Bictegrav/Emtricit/Tenofov Ala Tablet) 1 tab PO DAILY [facility] Last Admin: 10/29/24 08:51 Dose: 1 tab Bupropion HCl (Bupropion Hcl Xl 300 Mg Tab.Er.24h) 300 mg PO DAILY [facility] Last Admin: 10/29/24 08:51 Dose: 300 mg Chlorpromazine HCl (Chlorpromazine Hcl 25 Mg Tablet) 25 mg PO QID PRN PRN Reason: anxiety-severe Last Admin: 10/30/24 04:17 Dose: 25 mg Clonidine HCl (Clonidine Hcl 0.1 Mg Tablet) 0.1 mg PO Q4H PRN; Protocol PRN Reason: moderate anxiety Clonidine HCl (Clonidine Hcl 0.1 Mg Tablet) 0.1 mg PO BID [facility]; Protocol Last Admin: 10/29/24 20:18 Dose: 0.1 mg Duloxetine HCl (Duloxetine Hcl 60 Mg Capsule.Dr) 120 mg PO DAILY [facility] Last Admin: 10/29/24 08:50 Dose: 120 mg Famotidine (Famotidine 20 Mg Tablet) 20 mg PO DAILY PRN PRN Reason: GERD Fluticasone/Umeclidinium/Vilanterol (Fluticasone/Umeclidinium/Vilanterol 100/62.5/ Blst.W.Dev) 1 puff INHALE RDAILY [facility] Last Admin: 10/29/24 08:58 Dose: 1 puff Gabapentin (Gabapentin 300 Mg Capsule) 300 mg PO TID [facility] Last Admin: 10/29/24 20:16 Dose: 300 mg Hydrochlorothiazide (Hydrochlorothiazide 25 Mg Tablet) 25 mg PO DAILY [facility]; Protocol Last Admin: 10/29/24 08:51 Dose: 25 mg Hydroxyzine HCl (Hydroxyzine Hcl 25 Mg Tablet) 25 mg PO Q6H PRN PRN Reason: mild anxiety Last Admin: 10/28/24 18:52 Dose: 25 mg Magnesium Hydroxide (Milk Of Magnesia 30 Ml Oral.Susp) 30 ml PO DAILY PRN PRN Reason: Constipation Melatonin (Melatonin 3 Mg Tablet) 3 mg PO BEDTIME [facility] Last Admin: 10/29/24 20:19 Dose: 3 mg Metformin HCl (Metformin Hcl Er 500 Mg Tab.Er.24h) 500 mg PO BID [facility] Last Admin: 10/29/24 20:17 Dose: 500 mg Methadone HCl (Methadone Hcl 20 Mg/2 Ml Oral.Conc) 140 mg PO DAILY@0800 [facility] Last Admin: 10/30/24 07:35 Dose: 140 mg Multi-Ingred Cream/Lotion/Oil/Oint (Mineral Oil/Petrolatum,White 106 Gm Tube) 1 appl TOPICAL BID [facility]; Protocol Last Admin: 10/29/24 20:25 Dose: 1 appl Nicotine (Nicotine 21 Mg Patch.Td24) 21 mg TRANSDERMA DAILY [facility] Last Admin: 10/29/24 08:49 Dose: 21 mg Nicotine Polacrilex (Nicotine Polacrilex Lozenge 4 Mg Lozenge) 4 mg BUCCAL Q2H PRN PRN Reason: Nicotine Cravings Last Admin: 10/30/24 04:21 Dose: 4 mg Pt Owned Med ( Trulicity 1.5mg / 0. 5ml) 1 each SUBCUT Th@0900 [facility] Last Admin: 10/26/24 13:46 Dose: 1 each Nystatin (Nystatin Cream 15 Gm Tube) 1 appl TOPICAL BID PRN; Protocol PRN Reason: Rash Last Admin: 10/25/24 09:09 Dose: 1 appl Olanzapine (Olanzapine 7.5 Mg Tablet) 7.5 mg PO BEDTIME [facility] Last Admin: 10/29/24 20:14 Dose: 7.5 mg Omeprazole (Omeprazole 40 Mg Capsule.Dr) 40 mg PO BID@0630,1630 [facility] Last Admin: 10/30/24 07:27 Dose: 40 mg Prazosin HCl (Prazosin Hcl 1 Mg Capsule) 1 mg PO BEDTIME [facility]; Protocol Last Admin: 10/29/24 20:17 Dose: 1 mg Trazodone HCl (Trazodone Hcl 50 Mg Tablet) 50 mg PO BEDTIME [facility] PRN PRN Reason: Insomnia Last Admin: 10/29/24 20:19 Dose: 50 mg Triamcinolone Acetonide (Triamcinolone Acet 0.1 % Cream 15 Gm Tube) 1 appl TOPICAL BID [facility]; Protocol Last Admin: 10/29/24 20:25 Dose: 1 appl Valsartan (Valsartan 80 Mg Tablet) 80 mg PO DAILY [facility] Last Admin: 10/29/24 08:50 Dose: 80 mg Vitamin D (Cholecalciferol (Vitamin D3) 25 Mcg Tablet) 25 mcg PO DAILY [facility] Last Admin: 10/29/24 08:50 Dose: 25 mcg Allergies Allergies Allergy/AdvReac Type Severity Reaction Status Date / Time latex [LATEX] Allergy Unknown UNKNOWN Verified 02/09/21 03:06 From PERCOCET Allergy Unknown UNKNOWN Uncoded 02/09/21 03:06 Assessment & Plan Assessment & Plan (1) MDD (major depressive disorder), recurrent, severe, with psychosis: Status: Acute Code(s): F33.3 - Major depressive disorder, recurrent, severe with psychotic symptoms (2) PTSD (post-traumatic stress disorder): Status: Acute Code(s): F43.10 - Post-traumatic stress disorder, unspecified (3) Opioid use disorder: Status: Acute Code(s): F11.99 - Opioid use, unspecified with unspecified opioid-induced disorder (4) Cocaine abuse: Status: Acute Code(s): F14.10 - Cocaine abuse, uncomplicated (5) Polysubstance use disorder: Status: Acute Code(s): F19.90 - Other psychoactive substance use, unspecified, uncomplicated (6) History of HIV or AIDS: Status: Acute Plan Hospital course: 10/23 Decrease chlorpromaxine to 25 mg qid prn Decrease olanzapine to 20 mg HS Decrease Benztropine to 0.5 mg bid 10/24 shared recent hx and pt reports he has been off medications for 3 weeks following relapse after 15-16 months of sobriety. Thinks relapse maybe partly due to the one year anniversary of his girlfriends . While sober, on Gabapentin, Cymbalta, trazodone, pt mood good, though anxiety/panic remained. Currently, still very depressed; says SI thoughts come and go, which are still lingering; some he can shrug off. AH less now. -Agreed to get back on Gabapentin which he used for nerve pain, but also helped with anxiety -discussed dx since he carries bipolar dx; However, pt says longest manic episode lasts only a day at most and usually only a couple of hours -shared about family relationships -talked about growing up; HS Impression:will change dx to MDD with pschotic features (he agrees with change in dx; will leave bipolar as rule out, however from reporting does not meet criteria). remains depressed but only just back on meds. 10/25 still very depressed; forcing self to go to groups and says almost panicked, but went out of group for a bit, calmed down and then returned. Reviewed options and pt agrees to try Wellbutrin XR 150mg for depression 10/26 pt reports he's feeling very depressed today, but does not know why; agrees to increase wellbutrin 10/27 continue tx regimen 10/28 reports mood is alright and is slowly getting a little better, out of room more, easier to push self to do ADL's; thus will leave wellbutrin as is for now -nightmares returned for past 2 days, which do during times of depression. Discussed Prazosin and how it can cause lightheadedness/dizziness... agreed to try it anyway since nightmare are bothersome 10/29 patient reports he is starting to feel little better; nightmares less intense; continue current regimen 10/30 Patient remains overall doing better, mood is better and would like to leave Wellbutrin as it is. However he continues to have nightmares from childhood trauma. Patient shared a little about history of trauma, that he has never talked about it before or processed it, finding it hard to trust people. Discussed the role of therapy and how it can help and patient said he very much feels the need to engage with a therapist. Given nightmares patient agreed to increase prazosin. -Discussed last night's bout of confusion where he was unclear where his room was and accidentally got into his roommate's bed (which was empty) to sleep; he does not remember much of it and says he has been told that he sleep walks. Patient currently presents organized in speech behavior -have discussed substance abuse treatment and patient will remain on methadone; looking to go to a substance abuse program Patient remains in good behavioral and impulse control inappropriate with peers and staff. He is engaged in treatment, attending groups and forthcoming in 1 1 sessions. Patient is stable on current medication regimen PLAN: Admit, 15 minute checks Increase to prazosin 2 mg qhs for nightmares continue Cymbalta 120mg Increase to Wellbutrin XR 300mg for depression Continue Gabapentin 300mg tid (was on before and helped w/ neuropathic pain and anxiety) Continue metformin 500mg BID (will consider whether to titrate to 1000mg bid his home dose) trulicity weekly (he missed last week) clonidine0.1mg qhs lowered zyprexa to 7.5mg; pt denies psychotic symptoms other than echoes, distant voice that only occur when depressed Wound consult-foot Triamcinolone cream-underarm rash Chlorpromazine trial prn (pt reports very helpful by hx for sx mgt) Decrease chlorpromaxine to 25 mg qid prn Decrease olanzapine to 20 mg HS Decrease Benztropine to 0.5 mg bid Patient educated on: diagnosis, medication risk/benefits and therapeutic strategies Informed Consent: understands Wound consult-foot Triamcinolone cream-underarm rash Chlorpromazine trial prn (pt reports very helpful by hx for sx mgt) Decrease chlorpromaxine to 25 mg qid prn Decrease olanzapine to 20 mg HS Decrease Benztropine to 0.5 mg bid Patient educated on: diagnosis and medication risk/benefits Informed Consent: understands Reason for continued inpatient stay Substantial Risk for: rapid decompensation Time Spent With Patient Time: Total time managing care of this patient today ____ minutes.
[2024-10-30] MEDS: Triamcinolone Acet 0.1 % Cream 15 GM TUBE 1 APPL TOPICAL ×2 (09:43→22:00)
[2024-10-30] MEDS: Mineral Oil/Petrolatum,White 106 GM Tube 1 APPL TOPICAL ×2 (09:43→21:59)
[2024-10-30 10:16] LABS: MANUAL DIFF FLAG NO
[2024-10-30 10:20] LABS: Basophils Absolute Auto 0.1 X10*3/uL (0.0-0.2); Basophils Percent Auto 0.8 % (0-2); Eosinophils Absolute Auto 0.3 X10*3/uL (0.0-0.4); Hematocrit 36.3 % (42.0-52.0); Hemoglobin 12.8 g/dl (14.0-18.0); Imm Gran Abs Auto 0.06 X10*3/uL (0.00-0.03); Imm Gran Pct Auto 0.9 % (0.0-0.4); Lymphocytes Absolute Auto 1.8 X10*3/uL (1.2-4.9); Lymphocytes Percent Auto 27.8 % (20-40); Mean Corpuscular HGB Conc 35.3 g/dl (31.0-36.0); Mean Corpuscular Hemoglobin 32.9 pg (27.0-33.0); Mean Corpuscular Volume 93.3 fL (80.0-98.0); Mean Platelet Volume 9.5 fL (9.4-12.4); Monocytes Absolute Auto 0.8 X10*3/uL (0.1-1.2); Monocytes Percent Auto 12.7 % (2-11); Neutrophils Absolute Auto 3.5 x10*3/uL (2.0-8.3); Neutrophils Percent Auto 52.8 % (45-73); Platelet Count 164 X10*3/uL (160-400); Red Blood Count 3.89 X10*6/uL (4.60-5.80); Red Cell Distribution Width 12.5 % (11.0-16.0); White Blood Count 6.6 X10*3/uL (4.8-10.8)
[2024-10-30 10:30] LABS: Ammonia 35 umol/L (13-55)
[2024-10-30 10:44] LABS: Alanine Aminotransferase 37 U/L (0-40); Anion Gap 13 (12-20); Aspartate Amino Transferase 26 U/L (5-37); Bilirubin Total 0.5 mg/dL (0.0-1.0); Blood Urea Nitrogen 20 mg/dL (9-16); Calcium 9.7 mg/dL (8.4-10.2); Carbon Dioxide 25 mmol/L (22-29); Chloride 102 mmol/L (96-108); Creatinine Clr Calc Pharmacy 99.6; Estimated Glomerular Filt Rate > 60; Glucose Random 110 mg/dL (60-115); Potassium 4.2 mmol/L (3.3-5.1); Sodium 136 mmol/L (135-145); Total Protein 7.7 g/dL (6.5-8.0)
[2024-10-30 13:04] LABS: Alkaline Phosphatase 130 U/L (39-117)
[2024-10-30 16:19] VITALS: BP 128/70
[2024-10-30] MEDS: hydrOXYzine HCL 25 MG TABLET PO (16:20)
[2024-10-30] MEDS: Acetaminophen 325 MG TABLET 650 MG PO (18:51)
[2024-10-30 20:00] VITALS: BP 102/60; PULSE 89; RESP 18; TEMP 36.6; O2SAT 97
[2024-10-30] MEDS: Melatonin 3 MG TABLET PO (21:51)
[2024-10-30] MEDS: OLANZapine 7.5 MG TABLET PO (21:51)
[2024-10-30] MEDS: Prazosin HCL 1 MG CAPSULE 2 MG PO (21:51)
[2024-10-30 21:52] VITALS: BP 102/60
[2024-10-30] MEDS: traZODone HCL 50 MG TABLET PO (21:55)
[2024-10-31] MEDS: Omeprazole 40 MG CAPSULE.DR PO ×2 (06:38→15:28)
[2024-10-31] MEDS: Nicotine Polacrilex Lozenge 4 MG LOZENGE BUCCAL ×5 (06:41→20:09)
[2024-10-31] MEDS: methADONE HCl 20 MG/2 ML ORAL.CONC 140 MG PO (07:59)
[2024-10-31 08:00] VITALS: BP 107/65; PULSE 59; RESP 20; TEMP 36.5; O2SAT 95
[2024-10-31 08:16] LABS: Glucose, Whole Blood 134 mg/dL (60-115)
[2024-10-31] MEDS: metFORMIN HCl ER 500 MG TAB.ER.24H PO ×2 (08:48→20:08)
[2024-10-31] MEDS: DULoxetine HCl 60 MG CAPSULE.DR 120 MG PO (08:49)
[2024-10-31] MEDS: hydroCHLOROthiazide 25 MG TABLET PO (08:49)
[2024-10-31] MEDS: Benztropine Mesylate 0.5 MG TABLET PO ×2 (08:50→20:09)
[2024-10-31] MEDS: Bictegrav/Emtricit/Tenofov Ala TABLET 1 TAB PO (08:50)
[2024-10-31] MEDS: Aspirin 81 MG TAB.CHEW PO (08:50)
[2024-10-31] MEDS: Atorvastatin Calcium 80 MG TABLET PO (08:50)
[2024-10-31] MEDS: Valsartan 80 MG TABLET PO (08:51)
[2024-10-31] MEDS: cloNIDine HCL 0.1 MG TABLET PO ×2 (08:51→20:09)
[2024-10-31] MEDS: Cholecalciferol (Vitamin D3) 25 MCG TABLET PO (08:51)
[2024-10-31] MEDS: buPROPion HCl XL 300 MG TAB.ER.24H PO (08:51)
[2024-10-31] MEDS: Nicotine 21 MG PATCH.TD24 TRANSDERMA (08:52)
[2024-10-31] MEDS: Gabapentin 300 MG CAPSULE PO ×3 (08:52→20:08)
[2024-10-31] MEDS: Nystatin Cream 15 GM TUBE 1 APPL TOPICAL (08:57)
[2024-10-31] MEDS: Triamcinolone Acet 0.1 % Cream 15 GM TUBE 1 APPL TOPICAL ×2 (08:57→20:22)
[2024-10-31] MEDS: hydrOXYzine HCL 25 MG TABLET PO ×2 (08:58→14:51)
[2024-10-31] MEDS: Mineral Oil/Petrolatum,White 106 GM Tube 1 APPL TOPICAL ×2 (09:00→20:22)
--- NOTE | 2024-10-31 10:01 | HO.PSYCHPN ---
Subjective Subjective Date of Service: 10/31/24 Reason For Visit: Major depressive d/o PTSD Opioid Use Disorder Mode Interim History: Met with patient; discussed with team Patient reports his depression is definitely better but his anxiety remains quite troublesome; discussed options, risks/side effects and pt agreed to try BuSpar. Patient with some sciatic pain and agreed to try lidocaine patch Mental Status Exam Mental Status Exam Narrative: Pt is alert and oriented; behavior is cooperative, quiet, but a little more engaged; patient is not in distress; dressed in hospital attire, unkempt, but adequate hygiene; mood is described as alright and affect congruent; eye contact a little avoidant; Speech is at baseline, a little slowed and soft; no psychomotor retardation remains present; thought process is organized and goal directed; Thought content is on processing feelings, treatment; otherwise pertinent to relevant topics and without any delusional content, paranoid ideations or grandiosity; no SI; no HI; No AVH; There is no evidence of perceptual disturbance. Patients insight and judgment fair Diagnostics Vital Signs (24Hr): Vital Signs - 24 hr 10/30/24 16:19 10/30/24 20:00 10/30/24 21:52 Temperature 97.8 F Pulse Rate 89 Respiratory Rate 18 Blood Pressure 128/70 102/60 102/60 Pulse Oximetry 97 Oxygen Delivery Method Room Air 10/31/24 08:00 Temperature 97.7 F Pulse Rate 59 Respiratory Rate 20 Blood Pressure 107/65 Pulse Oximetry 95 Oxygen Delivery Method Room Air BMI result Body Mass Index 32.5 Labs 10/30/24 10:11 10/30/24 10:11 Labs: Laboratory Results - last 48 hr 10/29/24 10/29/24 10/29/24 11:52 17:14 20:02 WBC RBC Hgb Hct MCV MCH MCHC RDW Plt Count MPV Immature Gran % (Auto) Neut % (Auto) Lymph % (Auto) [place] % (Auto) Eos % (Auto) Baso % (Auto) Lymph # (Auto) [place] # (Auto) Eos # (Auto) Baso # (Auto) Abs Immat Gran (auto) Absolute Neuts (auto) Absolute Nucleated RBC Nucleated RBC % (auto) Sodium Potassium Chloride Carbon Dioxide Anion Gap BUN Creatinine Estim Creat Clear Calc Estimated GFR POC Glucose 159 H 150 H 130 H Random Glucose Calcium Total Bilirubin AST ALT Alkaline Phosphatase Ammonia Total Protein Albumin 10/30/24 10/30/24 10/31/24 07:41 10:11 08:10 WBC 6.6 RBC 3.89 L Hgb 12.8 L Hct 36.3 L MCV 93.3 MCH 32.9 MCHC 35.3 RDW 12.5 Plt Count 164 MPV 9.5 Immature Gran % (Auto) 0.9 H Neut % (Auto) 52.8 Lymph % (Auto) 27.8 [place] % (Auto) 12.7 H Eos % (Auto) 5.0 H Baso % (Auto) 0.8 Lymph # (Auto) 1.8 [place] # (Auto) 0.8 Eos # (Auto) 0.3 Baso # (Auto) 0.1 Abs Immat Gran (auto) 0.06 H Absolute Neuts (auto) 3.5 Absolute Nucleated RBC 0.000 Nucleated RBC % (auto) 0.0 Sodium 136 Potassium 4.2 Chloride 102 Carbon Dioxide 25 Anion Gap 13 BUN 20 H Creatinine 0.99 Estim Creat Clear Calc 99.6 Estimated GFR > 60 POC Glucose 151 H 134 H Random Glucose 110 Calcium 9.7 Total Bilirubin 0.5 AST 26 ALT 37 Alkaline Phosphatase 130 H Ammonia 35 Total Protein 7.7 Albumin 4.0 Medications Medications Current Medications Acetaminophen (Acetaminophen 325 Mg Tablet) 650 mg PO Q6H PRN PRN Reason: Headache/Pain, Scale 1-10 Last Admin: 10/30/24 18:51 Dose: 650 mg Al Hydroxide/Mg Hydroxide (Magnesium Hydrox/Alum Hydrox 30 Ml Oral.Susp) 30 ml PO Q6H PRN PRN Reason: Heartburn/Nausea Last Admin: 10/29/24 09:07 Dose: 30 ml Aspirin (Aspirin 81 Mg Tab.Chew) 81 mg PO DAILY [facility] Last Admin: 10/31/24 08:50 Dose: 81 mg Atorvastatin Calcium (Atorvastatin Calcium 80 Mg Tablet) 80 mg PO DAILY [facility] Last Admin: 10/31/24 08:50 Dose: 80 mg Benztropine Mesylate (Benztropine Mesylate 0.5 Mg Tablet) 0.5 mg PO BID [facility] Last Admin: 10/31/24 08:50 Dose: 0.5 mg Bictegravir/Emtricitabine/Tenofovir (Bictegrav/Emtricit/Tenofov Ala Tablet) 1 tab PO DAILY [facility] Last Admin: 10/31/24 08:50 Dose: 1 tab Bupropion HCl (Bupropion Hcl Xl 300 Mg Tab.Er.24h) 300 mg PO DAILY [facility] Last Admin: 10/31/24 08:51 Dose: 300 mg Buspirone HCl (Buspirone Hcl 5 Mg Tablet) 5 mg PO TID [facility] Chlorpromazine HCl (Chlorpromazine Hcl 25 Mg Tablet) 25 mg PO QID PRN PRN Reason: anxiety-severe Last Admin: 10/30/24 14:26 Dose: 25 mg Clonidine HCl (Clonidine Hcl 0.1 Mg Tablet) 0.1 mg PO Q4H PRN; Protocol PRN Reason: moderate anxiety Last Admin: 10/30/24 16:19 Dose: 0.1 mg Clonidine HCl (Clonidine Hcl 0.1 Mg Tablet) 0.1 mg PO BID [facility]; Protocol Last Admin: 10/31/24 08:51 Dose: 0.1 mg Duloxetine HCl (Duloxetine Hcl 60 Mg Capsule.Dr) 120 mg PO DAILY [facility] Last Admin: 10/31/24 08:49 Dose: 120 mg Famotidine (Famotidine 20 Mg Tablet) 20 mg PO DAILY PRN PRN Reason: GERD Last Admin: 10/30/24 09:33 Dose: 20 mg Fluticasone/Umeclidinium/Vilanterol (Fluticasone/Umeclidinium/Vilanterol 100/62.5/25 Blst.W.Dev) 1 puff INHALE RDAILY [facility] Last Admin: 10/31/24 08:54 Dose: Not Given Gabapentin (Gabapentin 300 Mg Capsule) 300 mg PO TID [facility] Last Admin: 10/31/24 08:52 Dose: 300 mg Hydrochlorothiazide (Hydrochlorothiazide 25 Mg Tablet) 25 mg PO DAILY [facility]; Protocol Last Admin: 10/31/24 08:49 Dose: 25 mg Hydroxyzine HCl (Hydroxyzine Hcl 25 Mg Tablet) 25 mg PO Q6H PRN PRN Reason: mild anxiety Last Admin: 10/31/24 08:58 Dose: 25 mg Magnesium Hydroxide (Milk Of Magnesia 30 Ml Oral.Susp) 30 ml PO DAILY PRN PRN Reason: Constipation Melatonin (Melatonin 3 Mg Tablet) 3 mg PO BEDTIME [facility] Last Admin: 10/30/24 21:51 Dose: 3 mg Metformin HCl (Metformin Hcl Er 500 Mg Tab.Er.24h) 500 mg PO BID [facility] Last Admin: 10/31/24 08:48 Dose: 500 mg Methadone HCl (Methadone Hcl 20 Mg/2 Ml Oral.Conc) 140 mg PO DAILY@0800 [facility] Last Admin: 10/31/24 07:59 Dose: 140 mg Multi-Ingred Cream/Lotion/Oil/Oint (Mineral Oil/Petrolatum,White 106 Gm Tube) 1 appl TOPICAL BID [facility]; Protocol Last Admin: 10/31/24 09:00 Dose: 1 appl Nicotine (Nicotine 21 Mg Patch.Td24) 21 mg TRANSDERMA DAILY [facility] Last Admin: 10/31/24 08:52 Dose: 21 mg Nicotine Polacrilex (Nicotine Polacrilex Lozenge 4 Mg Lozenge) 4 mg BUCCAL Q2H PRN PRN Reason: Nicotine Cravings Last Admin: 10/31/24 08:56 Dose: 4 mg Pt Owned Med ( Trulicity 1.5mg / 0. 5ml) 1 each SUBCUT Th@0900 [facility] Last Admin: 10/26/24 13:46 Dose: 1 each Nystatin (Nystatin Cream 15 Gm Tube) 1 appl TOPICAL BID PRN; Protocol PRN Reason: Rash Last Admin: 10/31/24 08:57 Dose: 1 appl Olanzapine (Olanzapine 7.5 Mg Tablet) 7.5 mg PO BEDTIME [facility] Last Admin: 10/30/24 21:51 Dose: 7.5 mg Omeprazole (Omeprazole 40 Mg Capsule.Dr) 40 mg PO BID@0630,1630 [facility] Last Admin: 10/31/24 06:38 Dose: 40 mg Prazosin HCl (Prazosin Hcl 1 Mg Capsule) 2 mg PO BEDTIME [facility]; Protocol Last Admin: 10/30/24 21:51 Dose: 2 mg Trazodone HCl (Trazodone Hcl 50 Mg Tablet) 50 mg PO BEDTIME MRX1 PRN PRN Reason: Insomnia Last Admin: 10/30/24 21:55 Dose: 50 mg Triamcinolone Acetonide (Triamcinolone Acet 0.1 % Cream 15 Gm Tube) 1 appl TOPICAL BID [facility]; Protocol Last Admin: 10/31/24 08:57 Dose: 1 appl Valsartan (Valsartan 80 Mg Tablet) 80 mg PO DAILY [facility] Last Admin: 10/31/24 08:51 Dose: 80 mg Vitamin D (Cholecalciferol (Vitamin D3) 25 Mcg Tablet) 25 mcg PO DAILY [facility] Last Admin: 10/31/24 08:51 Dose: 25 mcg Allergies Allergies Allergy/AdvReac Type Severity Reaction Status Date / Time latex [LATEX] Allergy Unknown UNKNOWN Verified 02/09/21 03:06 From PERCOCET Allergy Unknown UNKNOWN Uncoded 02/09/21 03:06 Assessment & Plan Assessment & Plan (1) MDD (major depressive disorder), recurrent, severe, with psychosis: Status: Acute Code(s): F33.3 - Major depressive disorder, recurrent, severe with psychotic symptoms (2) PTSD (post-traumatic stress disorder): Status: Acute Code(s): F43.10 - Post-traumatic stress disorder, unspecified (3) Opioid use disorder: Status: Acute Code(s): F11.99 - Opioid use, unspecified with unspecified opioid-induced disorder (4) Cocaine abuse: Status: Acute Code(s): F14.10 - Cocaine abuse, uncomplicated (5) Polysubstance use disorder: Status: Acute Code(s): F19.90 - Other psychoactive substance use, unspecified, uncomplicated (6) History of HIV or AIDS: Status: Acute Plan Hospital course: 10/23 Decrease chlorpromaxine to 25 mg qid prn Decrease olanzapine to 20 mg HS Decrease Benztropine to 0.5 mg bid 10/24 shared recent hx and pt reports he has been off medications for 3 weeks following relapse after 15-16 months of sobriety. Thinks relapse maybe partly due to the one year anniversary of his girlfriends . While sober, on Gabapentin, Cymbalta, trazodone, pt mood good, though anxiety/panic remained. Currently, still very depressed; says SI thoughts come and go, which are still lingering; some he can shrug off. AH less now. -Agreed to get back on Gabapentin which he used for nerve pain, but also helped with anxiety -discussed dx since he carries bipolar dx; However, pt says longest manic episode lasts only a day at most and usually only a couple of hours -shared about family relationships -talked about growing up; HS Impression:will change dx to MDD with pschotic features (he agrees with change in dx; will leave bipolar as rule out, however from reporting does not meet criteria). remains depressed but only just back on meds. 10/25 still very depressed; forcing self to go to groups and says almost panicked, but went out of group for a bit, calmed down and then returned. Reviewed options and pt agrees to try Wellbutrin XR 150mg for depression 10/26 pt reports he's feeling very depressed today, but does not know why; agrees to increase wellbutrin 10/27 continue tx regimen 10/28 reports mood is alright and is slowly getting a little better, out of room more, easier to push self to do ADL's; thus will leave wellbutrin as is for now -nightmares returned for past 2 days, which do during times of depression. Discussed Prazosin and how it can cause lightheadedness/dizziness... agreed to try it anyway since nightmare are bothersome 10/29 patient reports he is starting to feel little better; nightmares less intense; continue current regimen 10/30 Patient remains overall doing better, mood is better and would like to leave Wellbutrin as it is. However he continues to have nightmares from childhood trauma. Patient shared a little about history of trauma, that he has never talked about it before or processed it, finding it hard to trust people. Discussed the role of therapy and how it can help and patient said he very much feels the need to engage with a therapist. Given nightmares patient agreed to increase prazosin. -Discussed last night's bout of confusion where he was unclear where his room was and accidentally got into his roommate's bed (which was empty) to sleep; he does not remember much of it and says he has been told that he sleep walks. Patient currently presents organized in speech behavior -have discussed substance abuse treatment and patient will remain on methadone; looking to go to a substance abuse program 10/31 starting BuSpar; will titrate Patient remains in good behavioral and impulse control inappropriate with peers and staff. He is engaged in treatment, attending groups and forthcoming in 1 1 sessions. Patient is stable on current medication regimen PLAN: Admit, 15 minute checks Start BuSpar 5 mg t.i.d.; will titrate Continue prazosin 2 mg qhs for nightmares continue Cymbalta 120mg Increase to Wellbutrin XR 300mg for depression Continue Gabapentin 300mg tid (was on before and helped w/ neuropathic pain and anxiety) Continue metformin 500mg BID (will consider whether to titrate to 1000mg bid his home dose) trulicity weekly (he missed last week) clonidine0.1mg qhs lowered zyprexa to 7.5mg; pt denies psychotic symptoms other than echoes, distant voice that only occur when depressed Lidocaine patch for sciatica Triamcinolone cream-underarm rash Chlorpromazine trial prn (pt reports very helpful by hx for sx mgt) Decrease chlorpromaxine to 25 mg qid prn Decrease olanzapine to 20 mg HS Decrease Benztropine to 0.5 mg bid Patient educated on: diagnosis, medication risk/benefits and therapeutic strategies Patient educated on: diagnosis, medication risk/benefits and medical condition Informed Consent: understands Reason for continued inpatient stay Substantial Risk for: stable for discharge Time Spent With Patient Time: Total time managing care of this patient today ____ minutes.
[2024-10-31] MEDS: busPIRone HCl 5 MG TABLET PO ×2 (14:49→20:09)
[2024-10-31] MEDS: Acetaminophen 325 MG TABLET 650 MG PO (15:29)
[2024-10-31] MEDS: Lidocaine 4 % Patch ADH..PATCH 1 PATCH TRANSDERMA (16:01)
[2024-10-31] MEDS: chlorproMAZINE HCl 25 MG TABLET PO (16:07)
[2024-10-31 16:08] VITALS: BP 91/60
[2024-10-31] MEDS: Ibuprofen 600 MG TABLET PO (18:28)
[2024-10-31 19:59] VITALS: BP 114/58; PULSE 83; RESP 14; TEMP 36.4; O2SAT 96
[2024-10-31] MEDS: OLANZapine 7.5 MG TABLET PO (20:08)
[2024-10-31] MEDS: Prazosin HCL 1 MG CAPSULE 2 MG PO (20:08)
[2024-10-31] MEDS: Melatonin 3 MG TABLET PO (20:08)
[2024-10-31] MEDS: traZODone HCL 50 MG TABLET PO (20:09)
--- NOTE | 2024-10-31 21:55 | P.PNPSI_ITS ---
Subjective Subjective Date of Service: 11/01/24 Reason For Visit: Major depressive d/o PTSD Opioid Use Disorder Mode Interim History: met with patient; discussed with team pt remains very anxious; agrees to increase in buspar which is tolerated; he asks for increase in thorazine as well. Got challenging news about his brothers dx of cancer, but handling news well. c/o trouble swallowing; speech eval ordered barium swallow Mental Status Exam Mental Status Exam Narrative: Pt is alert and oriented; behavior is cooperative, quiet, but a little more engaged; patient is not in distress; dressed in hospital attire, unkempt, but adequate hygiene; mood is described as anxious and affect congruent; eye contact adequate; Speech is at baseline, a little slowed and soft; no psychomotor retardation; thought process is organized and goal directed; Thought content is on processing feelings, treatment; otherwise pertinent to relevant topics and without any delusional content, paranoid ideations or grandiosity; no SI; no HI; No AVH; There is no evidence of perceptual disturbance. Patients insight and judgment fair Diagnostics Vital Signs (24Hr): Vital Signs - 24 hr 10/31/24 08:00 10/31/24 16:08 10/31/24 19:59 Temperature 97.7 F 97.6 F Pulse Rate 59 83 Respiratory Rate 20 14 Blood Pressure 107/65 91/60 114/58 L Pulse Oximetry 95 96 Oxygen Delivery Method Room Air Room Air BMI result Body Mass Index 32.5 Labs 10/30/24 10:11 11/01/24 08:08 Labs: Laboratory Results - last 48 hr 10/30/24 10/30/24 10/31/24 07:41 10:11 08:10 WBC 6.6 RBC 3.89 L Hgb 12.8 L Hct 36.3 L MCV 93.3 MCH 32.9 MCHC 35.3 RDW 12.5 Plt Count 164 MPV 9.5 Immature Gran % (Auto) 0.9 H Neut % (Auto) 52.8 Lymph % (Auto) 27.8 Nash % (Auto) 12.7 H Eos % (Auto) 5.0 H Baso % (Auto) 0.8 Lymph # (Auto) 1.8 Nash # (Auto) 0.8 Eos # (Auto) 0.3 Baso # (Auto) 0.1 Abs Immat Gran (auto) 0.06 H Absolute Neuts (auto) 3.5 Absolute Nucleated RBC 0.000 Nucleated RBC % (auto) 0.0 Sodium 136 Potassium 4.2 Chloride 102 Carbon Dioxide 25 Anion Gap 13 BUN 20 H Creatinine 0.99 Estim Creat Clear Calc 99.6 Estimated GFR > 60 POC Glucose 151 H 134 H Random Glucose 110 Calcium 9.7 Total Bilirubin 0.5 AST 26 ALT 37 Alkaline Phosphatase 130 H Ammonia 35 Total Protein 7.7 Albumin 4.0 Medications Medications Current Medications Acetaminophen (Acetaminophen 325 Mg Tablet) 650 mg PO Q6H PRN PRN Reason: Headache/Pain, Scale 1-10 Last Admin: 10/31/24 15:29 Dose: 650 mg Al Hydroxide/Mg Hydroxide (Magnesium Hydrox/Alum Hydrox 30 Ml Oral.Susp) 30 ml PO Q6H PRN PRN Reason: Heartburn/Nausea Last Admin: 10/29/24 09:07 Dose: 30 ml Aspirin (Aspirin 81 Mg Tab.Chew) 81 mg PO DAILY [facility] Last Admin: 10/31/24 08:50 Dose: 81 mg Atorvastatin Calcium (Atorvastatin Calcium 80 Mg Tablet) 80 mg PO DAILY [facility] Last Admin: 10/31/24 08:50 Dose: 80 mg Benztropine Mesylate (Benztropine Mesylate 0.5 Mg Tablet) 0.5 mg PO BID [facility] Last Admin: 10/31/24 20:09 Dose: 0.5 mg Bictegravir/Emtricitabine/Tenofovir (Bictegrav/Emtricit/Tenofov Ala Tablet) 1 tab PO DAILY [facility] Last Admin: 10/31/24 08:50 Dose: 1 tab Bupropion HCl (Bupropion Hcl Xl 300 Mg Tab.Er.24h) 300 mg PO DAILY [facility] Last Admin: 10/31/24 08:51 Dose: 300 mg Buspirone HCl (Buspirone Hcl 5 Mg Tablet) 5 mg PO TID [facility] Last Admin: 10/31/24 20:09 Dose: 5 mg Chlorpromazine HCl (Chlorpromazine Hcl 25 Mg Tablet) 25 mg PO QID PRN PRN Reason: anxiety-severe Last Admin: 10/31/24 16:07 Dose: 25 mg Clonidine HCl (Clonidine Hcl 0.1 Mg Tablet) 0.1 mg PO Q4H PRN; Protocol PRN Reason: moderate anxiety Last Admin: 10/30/24 16:19 Dose: 0.1 mg Clonidine HCl (Clonidine Hcl 0.1 Mg Tablet) 0.1 mg PO BID [facility]; Protocol Last Admin: 10/31/24 20:09 Dose: 0.1 mg Duloxetine HCl (Duloxetine Hcl 60 Mg Capsule.Dr) 120 mg PO DAILY [facility] Last Admin: 10/31/24 08:49 Dose: 120 mg Famotidine (Famotidine 20 Mg Tablet) 20 mg PO DAILY PRN PRN Reason: GERD Last Admin: 10/30/24 09:33 Dose: 20 mg Fluticasone/Umeclidinium/Vilanterol (Fluticasone/Umeclidinium/Vilanterol 100/62.5/ Blst.W.Dev) 1 puff INHALE RDAILY [facility] Last Admin: 10/31/24 08:54 Dose: Not Given Gabapentin (Gabapentin 300 Mg Capsule) 300 mg PO TID [facility] Last Admin: 10/31/24 20:08 Dose: 300 mg Hydrochlorothiazide (Hydrochlorothiazide 25 Mg Tablet) 25 mg PO DAILY [facility]; Protocol Last Admin: 10/31/24 08:49 Dose: 25 mg Hydroxyzine HCl (Hydroxyzine Hcl 25 Mg Tablet) 25 mg PO Q6H PRN PRN Reason: mild anxiety Last Admin: 10/31/24 14:51 Dose: 25 mg Ibuprofen (Ibuprofen 600 Mg Tablet) 600 mg PO Q8H PRN PRN Reason: Pain, Moderate(Pain Scale 4-6) Last Admin: 10/31/24 18:28 Dose: 600 mg Lidocaine (Lidocaine 4 % Patch Adh..Patch) 1 patch TRANSDERMA DAILY PRN; Protocol PRN Reason: left sided sciatica Last Admin: 10/31/24 16:01 Dose: 1 patch Magnesium Hydroxide (Milk Of Magnesia 30 Ml Oral.Susp) 30 ml PO DAILY PRN PRN Reason: Constipation Melatonin (Melatonin 3 Mg Tablet) 3 mg PO BEDTIME [facility] Last Admin: 10/31/24 20:08 Dose: 3 mg Metformin HCl (Metformin Hcl Er 500 Mg Tab.Er.24h) 500 mg PO BID [facility] Last Admin: 10/31/24 20:08 Dose: 500 mg Methadone HCl (Methadone Hcl 20 Mg/2 Ml Oral.Conc) 140 mg PO DAILY@0800 [facility] Last Admin: 10/31/24 07:59 Dose: 140 mg Multi-Ingred Cream/Lotion/Oil/Oint (Mineral Oil/Petrolatum,White 106 Gm Tube) 1 appl TOPICAL BID MARYLU; Protocol Last Admin: 10/31/24 09:00 Dose: 1 appl Nicotine (Nicotine 21 Mg Patch.Td24) 21 mg TRANSDERMA DAILY [facility] Last Admin: 10/31/24 08:52 Dose: 21 mg Nicotine Polacrilex (Nicotine Polacrilex Lozenge 4 Mg Lozenge) 4 mg BUCCAL Q2H PRN PRN Reason: Nicotine Cravings Last Admin: 10/31/24 20:09 Dose: 4 mg Pt Owned Med ( Trulicity 1.5mg / 0. 5ml) 1 each SUBCUT Th@0900 MARYLU Last Admin: 10/26/24 13:46 Dose: 1 each Nystatin (Nystatin Cream 15 Gm Tube) 1 appl TOPICAL BID PRN; Protocol PRN Reason: Rash Last Admin: 10/31/24 08:57 Dose: 1 appl Olanzapine (Olanzapine 7.5 Mg Tablet) 7.5 mg PO BEDTIME MARYLU Last Admin: 10/31/24 20:08 Dose: 7.5 mg Omeprazole (Omeprazole 40 Mg Capsule.Dr) 40 mg PO BID@0630,1630 MARYLU Last Admin: 10/31/24 15:28 Dose: 40 mg Prazosin HCl (Prazosin Hcl 1 Mg Capsule) 2 mg PO BEDTIME MARYLU; Protocol Last Admin: 10/31/24 20:08 Dose: 2 mg Trazodone HCl (Trazodone Hcl 50 Mg Tablet) 50 mg PO BEDTIME MRX1 PRN PRN Reason: Insomnia Last Admin: 10/31/24 20:09 Dose: 50 mg Triamcinolone Acetonide (Triamcinolone Acet 0.1 % Cream 15 Gm Tube) 1 appl TOPICAL BID MARYLU; Protocol Last Admin: 10/31/24 08:57 Dose: 1 appl Valsartan (Valsartan 80 Mg Tablet) 80 mg PO DAILY MARYLU Last Admin: 10/31/24 08:51 Dose: 80 mg Vitamin D (Cholecalciferol (Vitamin D3) 25 Mcg Tablet) 25 mcg PO DAILY [facility] Last Admin: 10/31/24 08:51 Dose: 25 mcg Allergies Allergies Allergy/AdvReac Type Severity Reaction Status Date / Time latex [LATEX] Allergy Unknown UNKNOWN Verified 02/09/21 03:06 From PERCOCET Allergy Unknown UNKNOWN Uncoded 02/09/21 03:06 Assessment & Plan Assessment & Plan (1) MDD (major depressive disorder), recurrent, severe, with psychosis: Status: Acute Code(s): F33.3 - Major depressive disorder, recurrent, severe with psychotic symptoms (2) PTSD (post-traumatic stress disorder): Status: Acute Code(s): F43.10 - Post-traumatic stress disorder, unspecified (3) Opioid use disorder: Status: Acute Code(s): F11.99 - Opioid use, unspecified with unspecified opioid-induced disorder (4) Cocaine abuse: Status: Acute Code(s): F14.10 - Cocaine abuse, uncomplicated (5) Polysubstance use disorder: Status: Acute Code(s): F19.90 - Other psychoactive substance use, unspecified, uncomplicated (6) History of HIV or AIDS: Status: Acute Plan Hospital course: 10/23 Decrease chlorpromaxine to 25 mg qid prn Decrease olanzapine to 20 mg HS Decrease Benztropine to 0.5 mg bid 10/24 shared recent hx and pt reports he has been off medications for 3 weeks following relapse after 15-16 months of sobriety. Thinks relapse maybe partly due to the one year anniversary of his girlfriends . While sober, on Gabapentin, Cymbalta, trazodone, pt mood good, though anxiety/panic remained. Currently, still very depressed; says SI thoughts come and go, which are still lingering; some he can shrug off. AH less now. -Agreed to get back on Gabapentin which he used for nerve pain, but also helped with anxiety -discussed dx since he carries bipolar dx; However, pt says longest manic episode lasts only a day at most and usually only a couple of hours -shared about family relationships -talked about growing up; HS Impression:will change dx to MDD with pschotic features (he agrees with change in dx; will leave bipolar as rule out, however from reporting does not meet criteria). remains depressed but only just back on meds. 10/25 still very depressed; forcing self to go to groups and says almost panicked, but went out of group for a bit, calmed down and then returned. Reviewed options and pt agrees to try Wellbutrin XR 150mg for depression 10/26 pt reports he's feeling very depressed today, but does not know why; agrees to increase wellbutrin 10/27 continue tx regimen 10/28 reports mood is alright and is slowly getting a little better, out of room more, easier to push self to do ADL's; thus will leave wellbutrin as is for now -nightmares returned for past 2 days, which do during times of depression. Discussed Prazosin and how it can cause lightheadedness/dizziness... agreed to try it anyway since nightmare are bothersome 10/29 patient reports he is starting to feel little better; nightmares less intense; continue current regimen 10/30 Patient remains overall doing better, mood is better and would like to leave Wellbutrin as it is. However he continues to have nightmares from childhood trauma. Patient shared a little about history of trauma, that he has never talked about it before or processed it, finding it hard to trust people. Discussed the role of therapy and how it can help and patient said he very much feels the need to engage with a therapist. Given nightmares patient agreed to increase prazosin. -Discussed last night's bout of confusion where he was unclear where his room was and accidentally got into his roommate's bed (which was empty) to sleep; he does not remember much of it and says he has been told that he sleep walks. Patient currently presents organized in speech behavior -have discussed substance abuse treatment and patient will remain on methadone; looking to go to a substance abuse program 10/31 starting BuSpar; will titrate Patient remains in good behavioral and impulse control inappropriate with peers and staff. He is engaged in treatment, attending groups and forthcoming in 1 1 sessions. Patient is stable on current medication regimen 11/01 pt remains very anxious; agrees to increase in buspar which is tolerated; he asks for increase in thorazine as well. Got challenging news about his brothers dx of cancer, but handling news well. -c/o trouble swallowing; speech eval ordered barium swallow Pt remains in good behavioral and impulse control Pt is stable on current medication regimen PLAN: Admit, 15 minute checks barium swallow Increase to BuSpar 10 mg t.i.d.; will titrate Continue prazosin 2 mg qhs for nightmares continue Cymbalta 120mg Increase to Wellbutrin XR 300mg for depression Continue Gabapentin 300mg tid (was on before and helped w/ neuropathic pain and anxiety) Continue metformin 500mg BID (will consider whether to titrate to 1000mg bid his home dose) trulicity weekly (he missed last week) clonidine0.1mg qhs lowered zyprexa to 7.5mg; pt denies psychotic symptoms other than echoes, distant voice that only occur when depressed Lidocaine patch for sciatica Triamcinolone cream-underarm rash Chlorpromazine trial prn (pt reports very helpful by hx for sx mgt) Decrease chlorpromaxine to 25 mg qid prn Decrease olanzapine to 20 mg HS Decrease Benztropine to 0.5 mg bid Patient educated on: diagnosis, medication risk/benefits and therapeutic strategies Patient educated on: diagnosis, medication risk/benefits and medical condition Informed Consent: understands Reason for continued inpatient stay Substantial Risk for: stable for discharge Time Spent With Patient Time: Total time managing care of this patient today ____ minutes.
[2024-11-01] MEDS: methADONE HCl 20 MG/2 ML ORAL.CONC 140 MG PO (07:45)
[2024-11-01 08:00] VITALS: BP 126/65; PULSE 64; RESP 16; TEMP 36.4; O2SAT 97
[2024-11-01] MEDS: Fluticasone/Umeclidinium/Vilanterol 100/62.5/25 BLST.W.DEV 1 PUFF INHALE (08:15)
[2024-11-01] MEDS: Nicotine 21 MG PATCH.TD24 TRANSDERMA (08:16)
[2024-11-01] MEDS: hydroCHLOROthiazide 25 MG TABLET PO (08:17)
[2024-11-01] MEDS: Aspirin 81 MG TAB.CHEW PO (08:17)
[2024-11-01] MEDS: busPIRone HCl 5 MG TABLET PO (08:17)
[2024-11-01] MEDS: Benztropine Mesylate 0.5 MG TABLET PO ×2 (08:17→22:26)
[2024-11-01] MEDS: Omeprazole 40 MG CAPSULE.DR PO ×2 (08:17→15:54)
[2024-11-01] MEDS: cloNIDine HCL 0.1 MG TABLET PO ×2 (08:17→22:26)
[2024-11-01] MEDS: Nystatin Cream 15 GM TUBE 1 APPL TOPICAL (08:18)
[2024-11-01] MEDS: Cholecalciferol (Vitamin D3) 25 MCG TABLET PO (08:18)
[2024-11-01] MEDS: Valsartan 80 MG TABLET PO (08:18)
[2024-11-01] MEDS: Mineral Oil/Petrolatum,White 106 GM Tube 1 APPL TOPICAL (08:18)
[2024-11-01] MEDS: Bictegrav/Emtricit/Tenofov Ala TABLET 1 TAB PO (08:18)
[2024-11-01] MEDS: Triamcinolone Acet 0.1 % Cream 15 GM TUBE 1 APPL TOPICAL (08:18)
[2024-11-01] MEDS: DULoxetine HCl 60 MG CAPSULE.DR 120 MG PO (08:18)
[2024-11-01] MEDS: metFORMIN HCl ER 500 MG TAB.ER.24H PO ×2 (08:18→22:31)
[2024-11-01] MEDS: Atorvastatin Calcium 80 MG TABLET PO (08:18)
[2024-11-01] MEDS: buPROPion HCl XL 300 MG TAB.ER.24H PO (08:18)
[2024-11-01] MEDS: Gabapentin 300 MG CAPSULE PO ×3 (08:18→22:30)
[2024-11-01 08:26] LABS: Glucose, Whole Blood 93 mg/dL (60-115)
[2024-11-01] MEDS: Nicotine Polacrilex Lozenge 4 MG LOZENGE BUCCAL ×4 (08:40→15:54)
[2024-11-01 08:43] LABS: Creatinine Clr Calc Pharmacy 80.1; Estimated Glomerular Filt Rate > 60
[2024-11-01] MEDS: chlorproMAZINE HCl 25 MG TABLET PO (10:36)
[2024-11-01] MEDS: Lidocaine 4 % Patch ADH..PATCH 1 PATCH TRANSDERMA (11:08)
[2024-11-01] MEDS: chlorproMAZINE HCl 25 MG TABLET 50 MG PO (14:41)
[2024-11-01] MEDS: busPIRone HCl 10 MG TABLET PO ×2 (14:41→22:26)
--- NOTE | 2024-11-01 17:29 | MHC.SLORD ---
Speech Language Pathology Order Status: BRICK CARRIER discussed option of MBSS with pt, who was in agreement. Protocol for assessment described in detail so pt would know what to expect. MD consulted, order placed. Radiology and BRICK CARRIER to coordinate time for video fluoroscopy evaluation of pt swallow, further recommendations pending results.
[2024-11-01 20:00] VITALS: BP 90/55; PULSE 68; TEMP 36.8; O2SAT 95
[2024-11-01 22:26] VITALS: BP 102/61
[2024-11-01] MEDS: OLANZapine 7.5 MG TABLET PO (22:26)
[2024-11-01] MEDS: Melatonin 3 MG TABLET PO (22:30)
[2024-11-01 22:31] VITALS: BP 102/61
[2024-11-01] MEDS: Prazosin HCL 1 MG CAPSULE 2 MG PO (22:31)
[2024-11-01] MEDS: traZODone HCL 50 MG TABLET PO (22:35)
[2024-11-01 22:56] LABS: Glucose, Whole Blood 92 mg/dL (60-115)
[2024-11-02] MEDS: Omeprazole 40 MG CAPSULE.DR PO ×2 (06:10→16:55)
[2024-11-02 07:48] LABS: Glucose, Whole Blood 110 mg/dL (60-115)
[2024-11-02] MEDS: methADONE HCl 20 MG/2 ML ORAL.CONC 140 MG PO (07:52)
[2024-11-02 08:00] VITALS: BP 122/74; PULSE 70; RESP 16; TEMP 36.4; O2SAT 96
[2024-11-02] MEDS: Lidocaine 4 % Patch ADH..PATCH 1 PATCH TRANSDERMA (09:29)
[2024-11-02] MEDS: Cholecalciferol (Vitamin D3) 25 MCG TABLET PO (09:30)
[2024-11-02] MEDS: Acetaminophen 325 MG TABLET 650 MG PO (09:30)
[2024-11-02] MEDS: cloNIDine HCL 0.1 MG TABLET PO ×3 (09:31→19:49)
[2024-11-02] MEDS: Benztropine Mesylate 0.5 MG TABLET PO ×2 (09:31→19:49)
[2024-11-02] MEDS: metFORMIN HCl ER 500 MG TAB.ER.24H PO ×2 (09:31→19:49)
[2024-11-02] MEDS: Gabapentin 300 MG CAPSULE PO ×3 (09:31→19:49)
[2024-11-02] MEDS: buPROPion HCl XL 300 MG TAB.ER.24H PO (09:31)
[2024-11-02] MEDS: Aspirin 81 MG TAB.CHEW PO (09:31)
[2024-11-02] MEDS: busPIRone HCl 10 MG TABLET PO ×3 (09:32→19:48)
[2024-11-02] MEDS: Atorvastatin Calcium 80 MG TABLET PO (09:32)
[2024-11-02] MEDS: Valsartan 80 MG TABLET PO (09:32)
[2024-11-02] MEDS: Nicotine 21 MG PATCH.TD24 TRANSDERMA (09:32)
[2024-11-02] MEDS: Bictegrav/Emtricit/Tenofov Ala TABLET 1 TAB PO (09:32)
[2024-11-02] MEDS: Fluticasone/Umeclidinium/Vilanterol 100/62.5/25 BLST.W.DEV 1 PUFF INHALE (09:33)
[2024-11-02] MEDS: DULoxetine HCl 60 MG CAPSULE.DR 120 MG PO (09:33)
[2024-11-02] MEDS: hydroCHLOROthiazide 25 MG TABLET PO (09:40)
[2024-11-02] MEDS: Nicotine Polacrilex Lozenge 4 MG LOZENGE BUCCAL ×5 (09:44→18:50)
--- NOTE | 2024-11-02 09:46 | HO.PSYCHPN ---
Subjective Subjective Date of Service: 11/02/24 Reason For Visit: Major depressive d/o PTSD Opioid Use Disorder Mode Interim History: Met with patient; discussed with team Patient overall feels better. Mood is better and even feels that his anxiety is improved. Patient is pleased with medication regimen and would like to continue with it. Very much hoping to get into a program. He remains engaged in treatment. Patient got a little dizzy after standing up quickly and sad himself down. Orthostatics checked and patient was found to be positive for orthostatic hypotension. Education provided Mental Status Exam Mental Status Exam Narrative: Pt is alert and oriented; behavior is cooperative, quiet, friendly, engaged; patient is not in distress; dressed in hospital attire, unkempt, but adequate hygiene; mood is described as better and affect congruent, more calm; eye contact adequate; Speech is at baseline, a little slowed and soft; no psychomotor retardation; thought process is organized and goal directed; Thought content is on processing feelings, treatment; otherwise pertinent to relevant topics and without any delusional content, paranoid ideations or grandiosity; no SI; no HI; No AVH; There is no evidence of perceptual disturbance. Patients insight and judgment fair Diagnostics Vital Signs (24Hr): Vital Signs - 24 hr 11/01/24 20:00 11/01/24 22:26 11/01/24 22:31 Temperature 98.2 F Pulse Rate 68 Blood Pressure 90/55 L 102/61 102/61 Pulse Oximetry 95 Oxygen Delivery Method Room Air BMI result Body Mass Index 32.5 Labs 10/30/24 10:11 11/01/24 08:08 Labs: Laboratory Results - last 48 hr 11/01/24 11/01/24 11/01/24 08:08 08:18 22:50 Creatinine 1.23 Estim Creat Clear Calc 80.1 Estimated GFR > 60 POC Glucose 93 92 11/02/24 07:44 Creatinine Estim Creat Clear Calc Estimated GFR POC Glucose 110 Medications Medications Current Medications Acetaminophen (Acetaminophen 325 Mg Tablet) 650 mg PO Q6H PRN PRN Reason: Headache/Pain, Scale 1-10 Last Admin: 11/02/24 09:30 Dose: 650 mg Al Hydroxide/Mg Hydroxide (Magnesium Hydrox/Alum Hydrox 30 Ml Oral.Susp) 30 ml PO Q6H PRN PRN Reason: Heartburn/Nausea Last Admin: 10/29/24 09:07 Dose: 30 ml Aspirin (Aspirin 81 Mg Tab.Chew) 81 mg PO DAILY [facility] Last Admin: 11/02/24 09:31 Dose: 81 mg Atorvastatin Calcium (Atorvastatin Calcium 80 Mg Tablet) 80 mg PO DAILY [facility] Last Admin: 11/02/24 09:32 Dose: 80 mg Benztropine Mesylate (Benztropine Mesylate 0.5 Mg Tablet) 0.5 mg PO BID [facility] Last Admin: 11/02/24 09:31 Dose: 0.5 mg Bictegravir/Emtricitabine/Tenofovir (Bictegrav/Emtricit/Tenofov Ala Tablet) 1 tab PO DAILY [facility] Last Admin: 11/02/24 09:32 Dose: 1 tab Bupropion HCl (Bupropion Hcl Xl 300 Mg Tab.Er.24h) 300 mg PO DAILY [facility] Last Admin: 11/02/24 09:31 Dose: 300 mg Buspirone HCl (Buspirone Hcl 10 Mg Tablet) 10 mg PO TID [facility] Last Admin: 11/02/24 09:32 Dose: 10 mg Chlorpromazine HCl (Chlorpromazine Hcl 25 Mg Tablet) 50 mg PO QID PRN PRN Reason: anxiety-severe Last Admin: 11/01/24 14:41 Dose: 50 mg Clonidine HCl (Clonidine Hcl 0.1 Mg Tablet) 0.1 mg PO Q4H PRN; Protocol PRN Reason: moderate anxiety Last Admin: 10/30/24 16:19 Dose: 0.1 mg Clonidine HCl (Clonidine Hcl 0.1 Mg Tablet) 0.1 mg PO BID [facility]; Protocol Last Admin: 11/02/24 09:31 Dose: 0.1 mg Duloxetine HCl (Duloxetine Hcl 60 Mg Capsule.Dr) 120 mg PO DAILY [facility] Last Admin: 11/02/24 09:33 Dose: 120 mg Famotidine (Famotidine 20 Mg Tablet) 20 mg PO DAILY PRN PRN Reason: GERD Last Admin: 10/30/24 09:33 Dose: 20 mg Fluticasone/Umeclidinium/Vilanterol (Fluticasone/Umeclidinium/Vilanterol 100/62.5/25 Blst.W.Dev) 1 puff INHALE RDAILY [facility] Last Admin: 11/02/24 09:33 Dose: 1 puff Gabapentin (Gabapentin 300 Mg Capsule) 300 mg PO TID [facility] Last Admin: 11/02/24 09:31 Dose: 300 mg Hydrochlorothiazide (Hydrochlorothiazide 25 Mg Tablet) 25 mg PO DAILY [facility]; Protocol Last Admin: 11/02/24 09:40 Dose: 25 mg Hydroxyzine HCl (Hydroxyzine Hcl 25 Mg Tablet) 25 mg PO Q6H PRN PRN Reason: mild anxiety Last Admin: 10/31/24 14:51 Dose: 25 mg Ibuprofen (Ibuprofen 600 Mg Tablet) 600 mg PO Q8H PRN PRN Reason: Pain, Moderate(Pain Scale 4-6) Last Admin: 10/31/24 18:28 Dose: 600 mg Lidocaine (Lidocaine 4 % Patch Adh..Patch) 1 patch TRANSDERMA DAILY PRN; Protocol PRN Reason: left sided sciatica Last Admin: 11/02/24 09:29 Dose: 1 patch Magnesium Hydroxide (Milk Of Magnesia 30 Ml Oral.Susp) 30 ml PO DAILY PRN PRN Reason: Constipation Melatonin (Melatonin 3 Mg Tablet) 3 mg PO BEDTIME [facility] Last Admin: 11/01/24 22:30 Dose: 3 mg Metformin HCl (Metformin Hcl Er 500 Mg Tab.Er.24h) 500 mg PO BID [facility] Last Admin: 11/02/24 09:31 Dose: 500 mg Methadone HCl (Methadone Hcl 20 Mg/2 Ml Oral.Conc) 140 mg PO DAILY@0800 [facility] Last Admin: 11/02/24 07:52 Dose: 140 mg Multi-Ingred Cream/Lotion/Oil/Oint (Mineral Oil/Petrolatum,White 106 Gm Tube) 1 appl TOPICAL BID [facility]; Protocol Last Admin: 11/01/24 22:25 Dose: Not Given Nicotine (Nicotine 21 Mg Patch.Td24) 21 mg TRANSDERMA DAILY [facility] Last Admin: 11/02/24 09:32 Dose: 21 mg Nicotine Polacrilex (Nicotine Polacrilex Lozenge 4 Mg Lozenge) 4 mg BUCCAL Q2H PRN PRN Reason: Nicotine Cravings Last Admin: 11/02/24 09:44 Dose: 4 mg Pt Owned Med ( Trulicity 1.5mg / 0. 5ml) 1 each SUBCUT Th@0900 [facility] Last Admin: 10/26/24 13:46 Dose: 1 each Nystatin (Nystatin Cream 15 Gm Tube) 1 appl TOPICAL BID PRN; Protocol PRN Reason: Rash Last Admin: 11/01/24 08:18 Dose: 1 appl Olanzapine (Olanzapine 7.5 Mg Tablet) 7.5 mg PO BEDTIME [facility] Last Admin: 11/01/24 22:26 Dose: 7.5 mg Omeprazole (Omeprazole 40 Mg Capsule.Dr) 40 mg PO BID@0630,1630 [facility] Last Admin: 11/02/24 06:10 Dose: 40 mg Prazosin HCl (Prazosin Hcl 1 Mg Capsule) 2 mg PO BEDTIME [facility]; Protocol Last Admin: 11/01/24 22:31 Dose: 2 mg Trazodone HCl (Trazodone Hcl 50 Mg Tablet) 50 mg PO BEDTIME MRX1 PRN PRN Reason: Insomnia Last Admin: 11/01/24 22:35 Dose: 50 mg Triamcinolone Acetonide (Triamcinolone Acet 0.1 % Cream 15 Gm Tube) 1 appl TOPICAL BID [facility]; Protocol Last Admin: 11/01/24 22:25 Dose: Not Given Valsartan (Valsartan 80 Mg Tablet) 80 mg PO DAILY [facility] Last Admin: 11/02/24 09:32 Dose: 80 mg Vitamin D (Cholecalciferol (Vitamin D3) 25 Mcg Tablet) 25 mcg PO DAILY [facility] Last Admin: 11/02/24 09:30 Dose: 25 mcg Allergies Allergies Allergy/AdvReac Type Severity Reaction Status Date / Time latex [LATEX] Allergy Unknown UNKNOWN Verified 02/09/21 03:06 peanut Allergy Unknown unknown Verified 11/01/24 20:16 From PERCOCET Allergy Unknown UNKNOWN Uncoded 02/09/21 03:06 Assessment & Plan Assessment & Plan (1) MDD (major depressive disorder), recurrent, severe, with psychosis: Status: Acute Code(s): F33.3 - Major depressive disorder, recurrent, severe with psychotic symptoms (2) PTSD (post-traumatic stress disorder): Status: Acute Code(s): F43.10 - Post-traumatic stress disorder, unspecified (3) Opioid use disorder: Status: Acute Code(s): F11.99 - Opioid use, unspecified with unspecified opioid-induced disorder (4) Cocaine abuse: Status: Acute Code(s): F14.10 - Cocaine abuse, uncomplicated (5) Polysubstance use disorder: Status: Acute Code(s): F19.90 - Other psychoactive substance use, unspecified, uncomplicated (6) History of HIV or AIDS: Status: Acute (7) Homeless: Status: Acute Code(s): Z59.00 - Homelessness unspecified Plan Hospital course: 10/23 Decrease chlorpromaxine to 25 mg qid prn Decrease olanzapine to 20 mg HS Decrease Benztropine to 0.5 mg bid 10/24 shared recent hx and pt reports he has been off medications for 3 weeks following relapse after 15-16 months of sobriety. Thinks relapse maybe partly due to the one year anniversary of his girlfriends . While sober, on Gabapentin, Cymbalta, trazodone, pt mood good, though anxiety/panic remained. Currently, still very depressed; says SI thoughts come and go, which are still lingering; some he can shrug off. AH less now. -Agreed to get back on Gabapentin which he used for nerve pain, but also helped with anxiety -discussed dx since he carries bipolar dx; However, pt says longest manic episode lasts only a day at most and usually only a couple of hours -shared about family relationships -talked about growing up; HS Impression:will change dx to MDD with pschotic features (he agrees with change in dx; will leave bipolar as rule out, however from reporting does not meet criteria). remains depressed but only just back on meds. 10/25 still very depressed; forcing self to go to groups and says almost panicked, but went out of group for a bit, calmed down and then returned. Reviewed options and pt agrees to try Wellbutrin XR 150mg for depression 10/26 pt reports he's feeling very depressed today, but does not know why; agrees to increase wellbutrin 10/27 continue tx regimen 10/28 reports mood is alright and is slowly getting a little better, out of room more, easier to push self to do ADL's; thus will leave wellbutrin as is for now -nightmares returned for past 2 days, which do during times of depression. Discussed Prazosin and how it can cause lightheadedness/dizziness... agreed to try it anyway since nightmare are bothersome 10/29 patient reports he is starting to feel little better; nightmares less intense; continue current regimen 10/30 Patient remains overall doing better, mood is better and would like to leave Wellbutrin as it is. However he continues to have nightmares from childhood trauma. Patient shared a little about history of trauma, that he has never talked about it before or processed it, finding it hard to trust people. Discussed the role of therapy and how it can help and patient said he very much feels the need to engage with a therapist. Given nightmares patient agreed to increase prazosin. -Discussed last night's bout of confusion where he was unclear where his room was and accidentally got into his roommate's bed (which was empty) to sleep; he does not remember much of it and says he has been told that he sleep walks. Patient currently presents organized in speech behavior -have discussed substance abuse treatment and patient will remain on methadone; looking to go to a substance abuse program 10/31 starting BuSpar; will titrate Patient remains in good behavioral and impulse control inappropriate with peers and staff. He is engaged in treatment, attending groups and forthcoming in 1 1 sessions. Patient is stable on current medication regimen 11/01 pt remains very anxious; agrees to increase in buspar which is tolerated; he asks for increase in thorazine as well. Got challenging news about his brothers dx of cancer, but handling news well. -c/o trouble swallowing; speech eval ordered barium swallow 11/02 Patient overall feels better. Mood is better and even feels that his anxiety is improved. Patient is pleased with medication regimen and would like to continue with it. Very much hoping to get into a program. He remains engaged in treatment. -Patient got a little dizzy after standing up quickly and sad himself down. Orthostatics checked and patient was found to be positive for orthostatic hypotension. Education provided Pt remains in good behavioral and impulse control Pt is stable on current medication regimen PLAN: Admit, 15 minute checks barium swallow Increase to BuSpar 10 mg t.i.d.; will titrate Continue prazosin 2 mg qhs for nightmares continue Cymbalta 120mg Increase to Wellbutrin XR 300mg for depression Continue Gabapentin 300mg tid (was on before and helped w/ neuropathic pain and anxiety) Continue metformin 500mg BID (will consider whether to titrate to 1000mg bid his home dose) trulicity weekly (he missed last week) clonidine0.1mg qhs lowered zyprexa to 7.5mg; pt denies psychotic symptoms other than echoes, distant voice that only occur when depressed Lidocaine patch for sciatica Triamcinolone cream-underarm rash Chlorpromazine trial prn (pt reports very helpful by hx for sx mgt) Decrease chlorpromaxine to 25 mg qid prn Decrease olanzapine to 20 mg HS Decrease Benztropine to 0.5 mg bid Patient educated on: diagnosis, medication risk/benefits and therapeutic strategies Patient educated on: diagnosis, medication risk/benefits, substance abuse and medical condition Informed Consent: understands Reason for continued inpatient stay Substantial Risk for: stable for discharge Time Spent With Patient Time: Total time managing care of this patient today ____ minutes.
[2024-11-02] MEDS: Triamcinolone Acet 0.1 % Cream 15 GM TUBE 1 APPL TOPICAL (10:02)
[2024-11-02] MEDS: Nystatin Cream 15 GM TUBE 1 APPL TOPICAL (10:04)
[2024-11-02] MEDS: Mineral Oil/Petrolatum,White 106 GM Tube 1 APPL TOPICAL (10:06)
[2024-11-02] MEDS: chlorproMAZINE HCl 25 MG TABLET 50 MG PO ×2 (10:34→16:56)
[2024-11-02 11:42] VITALS: BP 110/65
--- NOTE | 2024-11-02 13:24 | PC.NURSE ---
Pt was talking to manager social services Loni, where he says his legs felt like they buckled and he lowered himself to the floor. Bp sitting was 106/62 pulse =77 T=97.8. standing bp 81/50. pt was escorted by staff to his room where he is now lying in bed. Dr. Judd present and aware.
[2024-11-02] MEDS: Ibuprofen 600 MG TABLET PO (16:55)
[2024-11-02] MEDS: DULAGLUTIDE 1.5 MG/0.5 ML 1 EACH SUBCUT (16:55)
[2024-11-02 19:30] VITALS: BP 118/66; PULSE 90; RESP 16; TEMP 36.3; O2SAT 95
[2024-11-02 19:48] VITALS: BP 118/66
[2024-11-02] MEDS: Melatonin 3 MG TABLET PO (19:48)
[2024-11-02] MEDS: Prazosin HCL 1 MG CAPSULE 2 MG PO (19:48)
[2024-11-02 19:49] VITALS: BP 118/66
[2024-11-02] MEDS: OLANZapine 7.5 MG TABLET PO (19:49)
[2024-11-02 20:01] LABS: Glucose, Whole Blood 133 mg/dL (60-115)
[2024-11-03] VITALS (8 sets, daily range): BP systolic 95–119; BP diastolic 60–80; PULSE 72–97; RESP 15–16; TEMP 36.3–37.2; O2SAT 93–98
--- NOTE | 2024-11-03 | EEG_ITS ---
This is a 16-channel EEG with an EKG lead. The patient is reported awake and restless during the tracing. Background EEG rhythm is theta beta, low to medium amplitude, with no obvious asymmetry or paroxysmal tendency. Photic stimulation does not produce any significant abnormality. Hyperventilation is not performed. Cardiac lead does not reveal any significant abnormality. No definite sharp wave spikes or paroxysmal tendency noted. IMPRESSION: Generalized slowing with no evidence of seizure disorder. MD LILI Jarquin/ANINA / [id number]
--- NOTE | 2024-11-03 | ECG_ITS ---
Test Reason : disoriented episodes Blood Pressure : */* mmHG Vent. Rate : 72 BPM Atrial Rate : 72 BPM P-R Int : 182 ms QRS Dur : 94 ms QT Int : 432 ms P-R-T Axes : 39 2 18 degrees QTcB Int : 473 ms Normal sinus rhythm Minimal voltage criteria for LVH, may be normal variant ( R in aVL ) Borderline ECG When compared with ECG of 21-Oct-2024 16:53, No significant change was found Referred By: Mague Dixon Electronically Signed By: Harrison Crowell
[2024-11-03] MEDS: hydrOXYzine HCL 25 MG TABLET PO (04:01)
--- NOTE | 2024-11-03 04:14 | PC.NURSE ---
Patient alerted staff at 0355 that he was feeling unsteady. Patient said due to his history of strokes he was concerned that he might be having another stroke. This writer producer had patient smile, stick out his tongue, hand discharging machine operator equal, patient able to push and pull with both feet with equal strength. No complaint of headache, vision changes or any changes noted to patients speech, no facial asymmetry. Patient said he was just really anxious. He was offered and accepted Hydroxyzine 25 mg po at 0401. He decided to go back to bed. Will continue to monitor him.
[2024-11-03] MEDS: Omeprazole 40 MG CAPSULE.DR PO ×2 (06:54→16:32)
[2024-11-03] MEDS: methADONE HCl 20 MG/2 ML ORAL.CONC 140 MG PO (08:17)
[2024-11-03 08:27] LABS: Glucose, Whole Blood 98 mg/dL (60-115)
[2024-11-03] MEDS: Triamcinolone Acet 0.1 % Cream 15 GM TUBE 1 APPL TOPICAL (09:32)
[2024-11-03] MEDS: Nystatin Cream 15 GM TUBE 1 APPL TOPICAL (09:32)
[2024-11-03] MEDS: Fluticasone/Umeclidinium/Vilanterol 100/62.5/25 BLST.W.DEV 1 PUFF INHALE (09:32)
[2024-11-03] MEDS: hydroCHLOROthiazide 25 MG TABLET PO (09:33)
[2024-11-03] MEDS: Aspirin 81 MG TAB.CHEW PO (09:33)
[2024-11-03] MEDS: busPIRone HCl 10 MG TABLET PO ×3 (09:33→20:58)
[2024-11-03] MEDS: Benztropine Mesylate 0.5 MG TABLET PO ×2 (09:33→20:57)
[2024-11-03] MEDS: cloNIDine HCL 0.1 MG TABLET PO ×3 (09:33→23:48)
[2024-11-03] MEDS: Nicotine 21 MG PATCH.TD24 TRANSDERMA (09:33)
[2024-11-03] MEDS: Valsartan 80 MG TABLET PO (09:34)
[2024-11-03] MEDS: DULoxetine HCl 60 MG CAPSULE.DR 120 MG PO (09:34)
[2024-11-03] MEDS: Bictegrav/Emtricit/Tenofov Ala TABLET 1 TAB PO (09:34)
[2024-11-03] MEDS: Cholecalciferol (Vitamin D3) 25 MCG TABLET PO (09:34)
[2024-11-03] MEDS: Atorvastatin Calcium 80 MG TABLET PO (09:34)
[2024-11-03] MEDS: Gabapentin 300 MG CAPSULE PO ×3 (09:34→20:58)
[2024-11-03] MEDS: metFORMIN HCl ER 500 MG TAB.ER.24H PO ×2 (09:34→20:58)
[2024-11-03] MEDS: Mineral Oil/Petrolatum,White 106 GM Tube 1 APPL TOPICAL (09:35)
[2024-11-03] MEDS: Nicotine Polacrilex Lozenge 4 MG LOZENGE BUCCAL ×3 (09:48→23:48)
[2024-11-03] MEDS: buPROPion HCl XL 300 MG TAB.ER.24H PO (10:05)
[2024-11-03] MEDS: chlorproMAZINE HCl 25 MG TABLET 50 MG PO (10:45)
--- NOTE | 2024-11-03 11:15 | HO.PSYCHPN ---
Subjective Subjective Date of Service: 11/03/24 Reason For Visit: Major depressive d/o PTSD Opioid Use Disorder Mode Subjective Notes: Conditional Voluntary Healthcare Proxy: No Guardianship: No Medical Problems Affecting Mental Status: No Interim History: Pt with sx of vertigo, falls, ?sx of absence seizures. Reports fall in his room, hit L knee. My legs just give out. States he does not feel overmedicated, however appears overmedicated. Speech therapy reports their eval of pt is WNL. They suggest as an out pt a modified barium swallow. which I discussed with Kwan. Wellbutrin, Chlorpromazine held due to current sx EKG, Labs ordered Hospitalist consult is much appreciated. Pt found to be dehydrated, ordered 1L Ringer's bolus, VBG Also, Dr. Bowles suggests OP [place] [place] we are informed[place] Medication Compliance: Yes Side effects from medications: Yes (???) Attending Groups: Intermittent Review of Systems Acute medical concerns: Yes as noted above Review of Systems Review of Systems as noted in HPI Mental Status Exam Mental Status Exam Patient Appearance: Fatigued Patient Orientation: Person, Place and Situation Level of Consciousness: Sedated, Disoriented and Lethargic Patient Behavior: Talkative, Cooperative, Passive, Sedated, Fatigued, Confused, Isolative and Poor Eye Contact Mood Description: Withdrawn and Flat Affect Description: Flat Patient Cognition Impaired: Yes Ability to Follow Directions: Fair Speech Pattern: Slurred, Impoverished, Spontaneous Speech, Soft-Spoken and Delayed Memory Description: Remote Impaired Hallucinations: None Delusions: Not Present Thought Process: Disoriented, Distracted and Confusion Thought Content: positive for Poverty of Content and positive for Slowed Thinking Depressive Symptoms: Diff. Making Decisions, Increased Fatigue, Loss of Energy and Difficulty Concentrating Judgement: Poor Diagnostics Vital Signs (24Hr): Vital Signs - 24 hr 11/02/24 11:42 11/02/24 19:30 11/02/24 19:48 Temperature 97.4 F Pulse Rate 90 Respiratory Rate 16 Blood Pressure 110/65 118/66 118/66 Pulse Oximetry 95 Oxygen Delivery Method Room Air 11/02/24 19:49 11/03/24 04:32 11/03/24 08:15 Temperature 98.9 F 97.4 F Pulse Rate 97 94 Respiratory Rate 16 16 Blood Pressure 118/66 119/77 116/69 Pulse Oximetry 97 93 Oxygen Delivery Method Room Air Room Air 11/03/24 09:33 11/03/24 09:33 11/03/24 09:34 Temperature Pulse Rate Respiratory Rate Blood Pressure 116/69 116/69 116/69 Pulse Oximetry Oxygen Delivery Method BMI result Body Mass Index 32.5 Labs 11/03/24 14:45 11/03/24 14:41 Labs: Laboratory Results - last 48 hr 11/01/24 11/02/24 11/02/24 22:50 07:44 19:57 POC Glucose 92 110 133 H 11/03/24 08:22 POC Glucose 98 Medications Medications Current Medications Acetaminophen (Acetaminophen 325 Mg Tablet) 650 mg PO Q6H PRN PRN Reason: Headache/Pain, Scale 1-10 Last Admin: 11/02/24 09:30 Dose: 650 mg Al Hydroxide/Mg Hydroxide (Magnesium Hydrox/Alum Hydrox 30 Ml Oral.Susp) 30 ml PO Q6H PRN PRN Reason: Heartburn/Nausea Last Admin: 10/29/24 09:07 Dose: 30 ml Aspirin (Aspirin 81 Mg Tab.Chew) 81 mg PO DAILY [facility] Last Admin: 11/03/24 09:33 Dose: 81 mg Atorvastatin Calcium (Atorvastatin Calcium 80 Mg Tablet) 80 mg PO DAILY [facility] Last Admin: 11/03/24 09:34 Dose: 80 mg Benztropine Mesylate (Benztropine Mesylate 0.5 Mg Tablet) 0.5 mg PO BID [facility] Last Admin: 11/03/24 09:33 Dose: 0.5 mg Bictegravir/Emtricitabine/Tenofovir (Bictegrav/Emtricit/Tenofov Ala Tablet) 1 tab PO DAILY [facility] Last Admin: 11/03/24 09:34 Dose: 1 tab Bupropion HCl (Bupropion Hcl Xl 300 Mg Tab.Er.24h) 300 mg PO DAILY [facility] Last Admin: 11/03/24 10:05 Dose: 300 mg Buspirone HCl (Buspirone Hcl 10 Mg Tablet) 10 mg PO TID [facility] Last Admin: 11/03/24 09:33 Dose: 10 mg Chlorpromazine HCl (Chlorpromazine Hcl 25 Mg Tablet) 50 mg PO QID PRN PRN Reason: anxiety-severe Last Admin: 11/03/24 10:45 Dose: 50 mg Clonidine HCl (Clonidine Hcl 0.1 Mg Tablet) 0.1 mg PO Q4H PRN; Protocol PRN Reason: moderate anxiety Last Admin: 11/02/24 11:42 Dose: 0.1 mg Clonidine HCl (Clonidine Hcl 0.1 Mg Tablet) 0.1 mg PO BID [facility]; Protocol Last Admin: 11/03/24 09:33 Dose: 0.1 mg Duloxetine HCl (Duloxetine Hcl 60 Mg Capsule.Dr) 120 mg PO DAILY [facility] Last Admin: 11/03/24 09:34 Dose: 120 mg Famotidine (Famotidine 20 Mg Tablet) 20 mg PO DAILY PRN PRN Reason: GERD Last Admin: 10/30/24 09:33 Dose: 20 mg Fluticasone/Umeclidinium/Vilanterol (Fluticasone/Umeclidinium/Vilanterol 100/62.5/25 Blst.W.Dev) 1 puff INHALE RDAILY [facility] Last Admin: 11/03/24 09:32 Dose: 1 puff Gabapentin (Gabapentin 300 Mg Capsule) 300 mg PO TID [facility] Last Admin: 11/03/24 09:34 Dose: 300 mg Hydrochlorothiazide (Hydrochlorothiazide 25 Mg Tablet) 25 mg PO DAILY [facility]; Protocol Last Admin: 11/03/24 09:33 Dose: 25 mg Hydroxyzine HCl (Hydroxyzine Hcl 25 Mg Tablet) 25 mg PO Q6H PRN PRN Reason: mild anxiety Last Admin: 11/03/24 04:01 Dose: 25 mg Ibuprofen (Ibuprofen 600 Mg Tablet) 600 mg PO Q8H PRN PRN Reason: Pain, Moderate(Pain Scale 4-6) Last Admin: 11/02/24 16:55 Dose: 600 mg Lidocaine (Lidocaine 4 % Patch Adh..Patch) 1 patch TRANSDERMA DAILY PRN; Protocol PRN Reason: left sided sciatica Last Admin: 11/02/24 09:29 Dose: 1 patch Magnesium Hydroxide (Milk Of Magnesia 30 Ml Oral.Susp) 30 ml PO DAILY PRN PRN Reason: Constipation Melatonin (Melatonin 3 Mg Tablet) 3 mg PO BEDTIME [facility] Last Admin: 11/02/24 19:48 Dose: 3 mg Metformin HCl (Metformin Hcl Er 500 Mg Tab.Er.24h) 500 mg PO BID [facility] Last Admin: 11/03/24 09:34 Dose: 500 mg Methadone HCl (Methadone Hcl 20 Mg/2 Ml Oral.Conc) 140 mg PO DAILY@0800 [facility] Last Admin: 11/03/24 08:17 Dose: 140 mg Multi-Ingred Cream/Lotion/Oil/Oint (Mineral Oil/Petrolatum,White 106 Gm Tube) 1 appl TOPICAL BID [facility]; Protocol Last Admin: 11/03/24 09:35 Dose: 1 appl Nicotine (Nicotine 21 Mg Patch.Td24) 21 mg TRANSDERMA DAILY [facility] Last Admin: 11/03/24 09:33 Dose: 21 mg Nicotine Polacrilex (Nicotine Polacrilex Lozenge 4 Mg Lozenge) 4 mg BUCCAL Q2H PRN PRN Reason: Nicotine Cravings Last Admin: 11/03/24 09:48 Dose: 4 mg Pt Owned Med ( Trulicity 1.5mg / 0. 5ml) 1 each SUBCUT Th@0900 [facility] Last Admin: 11/02/24 16:55 Dose: 1 each Nystatin (Nystatin Cream 15 Gm Tube) 1 appl TOPICAL BID PRN; Protocol PRN Reason: Rash Last Admin: 11/03/24 09:32 Dose: 1 appl Olanzapine (Olanzapine 7.5 Mg Tablet) 7.5 mg PO BEDTIME [facility] Last Admin: 11/02/24 19:49 Dose: 7.5 mg Omeprazole (Omeprazole 40 Mg Capsule.Dr) 40 mg PO BID@0630,1630 [facility] Last Admin: 11/03/24 06:54 Dose: 40 mg Prazosin HCl (Prazosin Hcl 1 Mg Capsule) 2 mg PO BEDTIME [facility]; Protocol Last Admin: 11/02/24 19:48 Dose: 2 mg Trazodone HCl (Trazodone Hcl 50 Mg Tablet) 50 mg PO BEDTIME MRX1 PRN PRN Reason: Insomnia Last Admin: 11/01/24 22:35 Dose: 50 mg Triamcinolone Acetonide (Triamcinolone Acet 0.1 % Cream 15 Gm Tube) 1 appl TOPICAL BID [facility]; Protocol Last Admin: 11/03/24 09:32 Dose: 1 appl Valsartan (Valsartan 80 Mg Tablet) 80 mg PO DAILY [facility] Last Admin: 11/03/24 09:34 Dose: 80 mg Vitamin D (Cholecalciferol (Vitamin D3) 25 Mcg Tablet) 25 mcg PO DAILY [facility] Last Admin: 11/03/24 09:34 Dose: 25 mcg Allergies Allergies Allergy/AdvReac Type Severity Reaction Status Date / Time latex [LATEX] Allergy Unknown UNKNOWN Verified 02/09/21 03:06 peanut Allergy Unknown unknown Verified 11/01/24 20:16 From [facility] Allergy Unknown UNKNOWN Uncoded 02/09/21 03:06 Assessment & Plan Assessment & Plan (1) MDD (major depressive disorder), recurrent, severe, with psychosis: Status: Acute Code(s): F33.3 - Major depressive disorder, recurrent, severe with psychotic symptoms (2) PTSD (post-traumatic stress disorder): Status: Acute Code(s): F43.10 - Post-traumatic stress disorder, unspecified (3) Opioid use disorder: Status: Acute Code(s): F11.99 - Opioid use, unspecified with unspecified opioid-induced disorder (4) Cocaine abuse: Status: Acute Code(s): F14.10 - Cocaine abuse, uncomplicated (5) Polysubstance use disorder: Status: Acute Code(s): F19.90 - Other psychoactive substance use, unspecified, uncomplicated (6) History of HIV or AIDS: Status: Acute (7) Homeless: Status: Acute Code(s): Z59.00 - Homelessness unspecified Plan Hospital course: 10/23 Decrease chlorpromaxine to 25 mg qid prn Decrease olanzapine to 20 mg HS Decrease Benztropine to 0.5 mg bid 10/24 shared recent hx and pt reports he has been off medications for 3 weeks following relapse after 15-16 months of sobriety. Thinks relapse maybe partly due to the one year anniversary of his girlfriends . While sober, on Gabapentin, Cymbalta, trazodone, pt mood good, though anxiety/panic remained. Currently, still very depressed; says SI thoughts come and go, which are still lingering; some he can shrug off. AH less now. -Agreed to get back on Gabapentin which he used for nerve pain, but also helped with anxiety -discussed dx since he carries bipolar dx; However, pt says longest manic episode lasts only a day at most and usually only a couple of hours -shared about family relationships -talked about growing up; HS Impression:will change dx to MDD with pschotic features (he agrees with change in dx; will leave bipolar as rule out, however from reporting does not meet criteria). remains depressed but only just back on meds. 10/25 still very depressed; forcing self to go to groups and says almost panicked, but went out of group for a bit, calmed down and then returned. Reviewed options and pt agrees to try Wellbutrin XR 150mg for depression 10/26 pt reports he's feeling very depressed today, but does not know why; agrees to increase wellbutrin 10/27 continue tx regimen 10/28 reports mood is alright and is slowly getting a little better, out of room more, easier to push self to do ADL's; thus will leave wellbutrin as is for now -nightmares returned for past 2 days, which do during times of depression. Discussed Prazosin and how it can cause lightheadedness/dizziness... agreed to try it anyway since nightmare are bothersome 10/29 patient reports he is starting to feel little better; nightmares less intense; continue current regimen 10/30 Patient remains overall doing better, mood is better and would like to leave Wellbutrin as it is. However he continues to have nightmares from childhood trauma. Patient shared a little about history of trauma, that he has never talked about it before or processed it, finding it hard to trust people. Discussed the role of therapy and how it can help and patient said he very much feels the need to engage with a therapist. Given nightmares patient agreed to increase prazosin. -Discussed last night's bout of confusion where he was unclear where his room was and accidentally got into his roommate's bed (which was empty) to sleep; he does not remember much of it and says he has been told that he sleep walks. Patient currently presents organized in speech behavior -have discussed substance abuse treatment and patient will remain on methadone; looking to go to a substance abuse program 10/31 starting BuSpar; will titrate Patient remains in good behavioral and impulse control inappropriate with peers and staff. He is engaged in treatment, attending groups and forthcoming in 1 1 sessions. Patient is stable on current medication regimen 11/01 pt remains very anxious; agrees to increase in buspar which is tolerated; he asks for increase in thorazine as well. Got challenging news about his brothers dx of cancer, but handling news well. -c/o trouble swallowing; speech eval ordered barium swallow 11/02 Patient overall feels better. Mood is better and even feels that his anxiety is improved. Patient is pleased with medication regimen and would like to continue with it. Very much hoping to get into a program. He remains engaged in treatment. -Patient got a little dizzy after standing up quickly and sad himself down. Orthostatics checked and patient was found to be positive for orthostatic hypotension. Education provided 11/03 Pt sustained a fall. He appears to be having absence seizure activity Hold wellbutrin, chlorpromazine EKG, EEG, CBCD, CMP Pt seen by Dr. Bowles, he will have IVF Speech recommends OP BAS Sleep study also is recommended Continue to monitor. Pt remains in good behavioral and impulse control Pt is stable on current medication regimen PLAN: Admit, 15 minute checks barium swallow Increase to BuSpar 10 mg t.i.d.; will titrate Continue prazosin 2 mg qhs for nightmares continue Cymbalta 120mg Increase to Wellbutrin XR 300mg for depression Continue Gabapentin 300mg tid (was on before and helped w/ neuropathic pain and anxiety) Continue metformin 500mg BID (will consider whether to titrate to 1000mg bid his home dose) trulicity weekly (he missed last week) clonidine0.1mg qhs lowered zyprexa to 7.5mg; pt denies psychotic symptoms other than echoes, distant voice that only occur when depressed Lidocaine patch for sciatica Triamcinolone cream-underarm rash Chlorpromazine trial prn (pt reports very helpful by hx for sx mgt) Decrease chlorpromaxine to 25 mg qid prn Decrease olanzapine to 20 mg HS Decrease Benztropine to 0.5 mg bid Patient educated on: diagnosis, medication risk/benefits and therapeutic strategies Reason for continued inpatient stay Substantial Risk for: med/psych decompensation Time Spent With Patient Time: Total time managing care of this patient today ____ minutes.
[2024-11-03 11:25] LABS: Glucose, Whole Blood 121 mg/dL (60-115)
--- NOTE | 2024-11-03 13:37 | PC.NURSE ---
Addendum entered by Sujey Crowell RN 11/03/24 19:09: Pt with mental status changes. Falling asleep very easily, very poor concentration. Pt with slurred speech. This information is entered late, providers aware and many diagnostics ordered. Addendum entered by Sujey Crowell RN 11/03/24 13:42: Reported to covering provider, Amanda Morse in person. Original Note: Pt reported a fall in bedroom to staff. He came out walking normally to report. This service writer went to see patient for assessment. He denied hitting his head, and he denied pain. BP low, however, WNL.
[2024-11-03 14:53] LABS: Basophils Absolute Auto 0.1 X10*3/uL (0.0-0.2); Basophils Percent Auto 0.4 % (0-2); Eosinophils Absolute Auto 0.2 X10*3/uL (0.0-0.4); Eosinophils Percent Auto 1.9 % (0-4); Hematocrit 33.7 % (42.0-52.0); Hemoglobin 11.6 g/dl (14.0-18.0); Imm Gran Abs Auto 0.06 X10*3/uL (0.00-0.03); Imm Gran Pct Auto 0.5 % (0.0-0.4); Lymphocytes Absolute Auto 3.1 X10*3/uL (1.2-4.9); Lymphocytes Percent Auto 23.8 % (20-40); MANUAL DIFF FLAG SCAN; Mean Corpuscular HGB Conc 34.4 g/dl (31.0-36.0); Mean Corpuscular Hemoglobin 32.3 pg (27.0-33.0); Mean Corpuscular Volume 93.9 fL (80.0-98.0); Monocytes Absolute Auto 0.9 X10*3/uL (0.1-1.2); Monocytes Percent Auto 7.3 % (2-11); Neutrophils Absolute Auto 8.5 x10*3/uL (2.0-8.3); Neutrophils Percent Auto 66.1 % (45-73); PLT CLUMP 1; Red Blood Count 3.59 X10*6/uL (4.60-5.80); Red Cell Distribution Width 12.5 % (11.0-16.0); SCAN SMEAR FLAG 1
[2024-11-03 15:04] LABS: Alanine Aminotransferase 23 U/L (0-40); Alkaline Phosphatase 124 U/L (39-117); Anion Gap 16 (12-20); Aspartate Amino Transferase 18 U/L (5-37); Bilirubin Total 0.7 mg/dL (0.0-1.0); Blood Urea Nitrogen 26 mg/dL (9-16); Calcium 9.2 mg/dL (8.4-10.2); Carbon Dioxide 23 mmol/L (22-29); Chloride 102 mmol/L (96-108); Creatinine Clr Calc Pharmacy 69.4; Estimated Glomerular Filt Rate 53; Glucose Random 75 mg/dL (60-115); Potassium 4.5 mmol/L (3.3-5.1); Sodium 136 mmol/L (135-145); Total Protein 7.6 g/dL (6.5-8.0)
[2024-11-03 15:10] LABS: Mean Platelet Volume 9.7 fL (9.4-12.4); Platelet Count 165 X10*3/uL (160-400); SLIDE REVIEW VERIFIED; White Blood Count 12.8 X10*3/uL (4.8-10.8)
--- NOTE | 2024-11-03 15:18 | P.EN_ITS ---
Event Note Date of Service: 11/03/24 Event Note: Pt is a 49-year-old male with a PMH significant for?COPD, HTN, non-insulin- dependent type 2 diabetes, HIV, hx of cryptococcal meningitis, GERD, polysubstance use disorder on methadone who is admitted to [facility] psychiatry unit with hospitalist consultation for altered mental status, weakness with falls on the unit, and question of seizure-like activity. Pt has been noted by staff and clinicians to be increasingly lethargic, weak, and with episodes of stopping speaking mid sentence and staring off into space. Pt often requires repeating questions 1-2 times before answering, though pt will respond appropriately. Pt has had 2 falls while on the unit. The 1st was yesterday and was witnessed by nursing. pt was in his room when his legs seemed to buckle and pt was gently lowered to the floor. At that time did not have any acute complaints: No lightheadedness or dizziness. Today after lunch pt reported to nursing that he had another unwitnessed fall in his room. Pt is a poor historian and unable to provide detailed specifics about incident, but reports he felt lightheaded. Unclear if pt fell or lowered himself to the floor. Complains of a headache that has apparently been ongoing for 3 days. Denies any musculoskeletal pain, including in legs, knees, hips, arms, or shoulders. During interview and exam pt is noted to be require repeating questions multiple times before fully answering. Pt will often stop mid sentence and either stare into space or appear to be sleeping. During episodes pt's feet and hands appear to twitch, and has lip-smacking. Labs reviewed, significant for leukocytosis of 12.8 and creatinine 1.42. EKG unremarkable, showing normal sinus rhythm without evidence of significant ischemia. General: AOx3, somnolent but arousable. Pt noted to have no acute distress ENT: Mucous membranes dry Resp: CTA bilaterally CVS: S1, S2, RRR GI: +BS, NT, no distention, obese Skin: Warm, dry Neuro: Cranial nerves II-XII grossly intact bilaterally. Motor grossly intact bilaterally. No focal deficits noted. Preserved sensation to light touch of upper and lower extremities. Preserved and symmetric strength of upper and lower extremities bilaterally. Negative pronator drift Extremities: No edema Plan: Lethargy, weakness, increasing confusion, recent falls Pt noted to be stopping mid sentence and staring off into space drank conversations Pt with falls on the unit x2, one unwitnessed, other witnessed where he was lower to the floor Concerning for absence seizures vs medication induced sedation TIA/stroke less likely: No focal deficits noted Will get CT of head Will check VBG, ammonia Hold Wellbutrin EEG Consider neurology consult pending EEG results Elevated creatinine Creatinine 1.42, elevated from 1.23 on 11/01/2024 Mucous membranes dry We will give 1 L bolus lactated Ringer's Encouraged oral hydration Leukocytosis WBCs 12.8, elevated from 6.6 on 10/30/2024 Pt denies N/V/D, SOB, cough Currently no indication of active infection; no indication for antibiotics at this time Will check CXR and COVID/flu/RSV Question of untreated JOY Consider inpatient sleep study Thank you for allowing us to participate in the care of this pt. Will continue to follow for now. Time Spent With Patient Time: Total time managing care of this patient today ____ minutes.
[2024-11-03 15:52] LABS: VBG Base Excess 1.4 mmol/L; VBG HCO3 27 mmol/L (22-26); VBG pCO2 47 mmHg; VBG pH 7.36 (7.32-7.43); VBG pO2 53 mmHg
[2024-11-03 15:54] LABS: Venous Blood Gas Refer to POC result
[2024-11-03 15:55] LABS: Ammonia 37 umol/L (13-55)
[2024-11-03 17:02] LABS: Influenza A PCR NEGATIVE (Negative); Influenza B PCR NEGATIVE (Negative); Resp Syncy Virus RNA Qual PCR NEGATIVE (Negative); SARS COV2 PCR INHOUSE NEGATIVE (Negative)
[2024-11-03] MEDS: Lactated Ringers 1,000 ML 999 ML IV (17:21)
[2024-11-03] MEDS: Prazosin HCL 1 MG CAPSULE 2 MG PO (20:57)
[2024-11-03] MEDS: Amoxicillin/Potassium Clav 500 MG TABLET PO (20:57)
[2024-11-03] MEDS: OLANZapine 7.5 MG TABLET PO (20:58)
[2024-11-03] MEDS: Melatonin 3 MG TABLET PO (20:58)
[2024-11-03] MEDS: Lidocaine 4 % Patch ADH..PATCH 1 PATCH TRANSDERMA (21:03)
[2024-11-03] MEDS: traZODone HCL 50 MG TABLET PO ×2 (21:03→23:48)
[2024-11-03 21:23] LABS: Glucose, Whole Blood 126 mg/dL (60-115)
--- NOTE | 2024-11-03 23:59 | PC.NURSE ---
Addendum entered by Kiana Noonan RN 11/04/24 06:00: This RN assisted with IV assessment, repositioning attempted prior to removal without success. IV site clean, warm, dry, gauze bandage applied. Original Note: On 11/03/24 23:45 attempted to flush IV access on right arm. It did not flush with multiple attempts. When removed, it was discovered that the line inside of the vein was kinked.
[2024-11-04] MEDS: Amoxicillin/Potassium Clav 500 MG TABLET PO ×3 (04:40→20:11)
[2024-11-04] MEDS: Omeprazole 40 MG CAPSULE.DR PO ×2 (07:06→16:12)
[2024-11-04] MEDS: methADONE HCl 20 MG/2 ML ORAL.CONC 140 MG PO (07:47)
[2024-11-04 08:00] VITALS: BP 140/83; PULSE 60; RESP 16; TEMP 36.4; O2SAT 94
[2024-11-04 08:23] LABS: Glucose, Whole Blood 107 mg/dL (60-115)
[2024-11-04 09:02] VITALS: BP 140/83
[2024-11-04] MEDS: Benztropine Mesylate 0.5 MG TABLET PO ×2 (09:02→20:11)
[2024-11-04] MEDS: busPIRone HCl 10 MG TABLET PO ×3 (09:02→20:11)
[2024-11-04] MEDS: DULoxetine HCl 60 MG CAPSULE.DR 120 MG PO (09:02)
[2024-11-04] MEDS: metFORMIN HCl ER 500 MG TAB.ER.24H PO ×2 (09:02→20:11)
[2024-11-04] MEDS: hydroCHLOROthiazide 25 MG TABLET PO (09:02)
[2024-11-04] MEDS: Gabapentin 300 MG CAPSULE PO ×3 (09:02→20:11)
[2024-11-04] MEDS: Bictegrav/Emtricit/Tenofov Ala TABLET 1 TAB PO (09:02)
[2024-11-04] MEDS: cloNIDine HCL 0.1 MG TABLET PO ×3 (09:02→20:11)
[2024-11-04 09:03] VITALS: BP 140/83
[2024-11-04] MEDS: Cholecalciferol (Vitamin D3) 25 MCG TABLET PO (09:03)
[2024-11-04] MEDS: Atorvastatin Calcium 80 MG TABLET PO (09:03)
[2024-11-04] MEDS: Ibuprofen 600 MG TABLET PO ×2 (09:03→18:27)
[2024-11-04] MEDS: Valsartan 80 MG TABLET PO (09:03)
[2024-11-04] MEDS: Nystatin Cream 15 GM TUBE 1 APPL TOPICAL (09:04)
[2024-11-04] MEDS: Triamcinolone Acet 0.1 % Cream 15 GM TUBE 1 APPL TOPICAL (09:04)
[2024-11-04] MEDS: Aspirin 81 MG TAB.CHEW PO (09:06)
[2024-11-04] MEDS: Nicotine 21 MG PATCH.TD24 TRANSDERMA (09:10)
[2024-11-04] MEDS: Mineral Oil/Petrolatum,White 106 GM Tube 1 APPL TOPICAL (09:13)
[2024-11-04] MEDS: Fluticasone/Umeclidinium/Vilanterol 100/62.5/25 BLST.W.DEV 1 PUFF INHALE (09:33)
--- NOTE | 2024-11-04 10:55 | P.PNPSI_ITS ---
Subjective Subjective Date of Service: 11/04/24 Reason For Visit: Major depressive d/o PTSD Opioid Use Disorder Mode Subjective Notes: Conditional Voluntary Interim History: The nursisng staff reported that the patient has been on 1:1 after the fall the day before yesterday, medically worked out He had an IV access but so far, he is able to take liquids and VS are stable. On interview, he complained of sore throat, agreed to try Cepacol for sore throat. Still dysphoric but able to contract for safety. Mental Status Exam Mental Status Exam Patient Appearance: Appropriate Patient Orientation: Person and Situation Level of Consciousness: Awake and Appropriate Patient Behavior: Guarded and Passive Mood Description: Calm Affect Description: Constricted Patient Cognition Impaired: Yes Ability to Follow Directions: Good Speech Pattern: Clear Hallucinations: None Delusions: Not Present Thought Process: Distracted and Slowed Thinking Thought Content: positive for [place] and positive for Poverty of Content Judgement: Fair Diagnostics Vital Signs (24Hr): Vital Signs - 24 hr 11/03/24 13:30 11/03/24 13:35 11/03/24 20:00 Temperature 97.8 F Pulse Rate 79 88 72 Respiratory Rate 16 16 15 Blood Pressure 95/60 100/62 110/80 Pulse Oximetry 95 98 94 Oxygen Delivery Method Room Air Room Air 11/03/24 23:48 11/04/24 08:00 11/04/24 09:02 Temperature 97.6 F Pulse Rate 60 Respiratory Rate 16 Blood Pressure 100/60 140/83 H 140/83 H Pulse Oximetry 94 Oxygen Delivery Method 11/04/24 09:02 11/04/24 09:03 Temperature Pulse Rate Respiratory Rate Blood Pressure 140/83 H 140/83 H Pulse Oximetry Oxygen Delivery Method BMI result Body Mass Index 32.5 Labs 11/03/24 14:45 11/03/24 14:41 Labs: Laboratory Results - last 48 hr 11/02/24 11/03/24 11/03/24 19:57 08:22 11:21 WBC RBC Hgb Hct MCV MCH MCHC RDW Plt Count MPV Immature Gran % (Auto) Neut % (Auto) Lymph % (Auto) Perkins % (Auto) Eos % (Auto) Baso % (Auto) Lymph # (Auto) Perkins # (Auto) Eos # (Auto) Baso # (Auto) Abs Immat Gran (auto) Absolute Neuts (auto) Absolute Nucleated RBC Nucleated RBC % (auto) Smear Tech's Comments VBG pH VBG pCO2 VBG pO2 VBG HCO3 VBG O2 Saturation VBG Base Excess Sodium Potassium Chloride Carbon Dioxide Anion Gap BUN Creatinine Estim Creat Clear Calc Estimated GFR POC Glucose 133 H 98 121 H Random Glucose Calcium Total Bilirubin AST ALT Alkaline Phosphatase Ammonia Total Protein Albumin Influenza Type A (PCR) Influenza Type B (PCR) RSV RNA Qual (PCR) SARS-CoV-2 RNA (RT-PCR) 11/03/24 11/03/24 11/03/24 14:41 14:45 15:40 WBC 12.8 H RBC 3.59 L Hgb 11.6 L Hct 33.7 L MCV 93.9 MCH 32.3 MCHC 34.4 RDW 12.5 Plt Count 165 MPV 9.7 Immature Gran % (Auto) 0.5 H Neut % (Auto) 66.1 Lymph % (Auto) 23.8 Perkins % (Auto) 7.3 Eos % (Auto) 1.9 Baso % (Auto) 0.4 Lymph # (Auto) 3.1 Perkins # (Auto) 0.9 Eos # (Auto) 0.2 Baso # (Auto) 0.1 Abs Immat Gran (auto) 0.06 H Absolute Neuts (auto) 8.5 H Absolute Nucleated RBC 0.000 Nucleated RBC % (auto) 0.0 Smear Tech's Comments VERIFIED VBG pH VBG pCO2 VBG pO2 VBG HCO3 VBG O2 Saturation VBG Base Excess Sodium 136 Potassium 4.5 Chloride 102 Carbon Dioxide 23 Anion Gap 16 BUN 26 H Creatinine 1.42 H Estim Creat Clear Calc 69.4 Estimated GFR 53 POC Glucose Random Glucose 75 Calcium 9.2 Total Bilirubin 0.7 AST 18 ALT 23 Alkaline Phosphatase 124 H Ammonia 37 Total Protein 7.6 Albumin 4.0 Influenza Type A (PCR) Influenza Type B (PCR) RSV RNA Qual (PCR) SARS-CoV-2 RNA (RT-PCR) 11/03/24 11/03/24 11/03/24 15:45 16:10 21:18 WBC RBC Hgb Hct MCV MCH MCHC RDW Plt Count MPV Immature Gran % (Auto) Neut % (Auto) Lymph % (Auto) Perkins % (Auto) Eos % (Auto) Baso % (Auto) Lymph # (Auto) Perkins # (Auto) Eos # (Auto) Baso # (Auto) Abs Immat Gran (auto) Absolute Neuts (auto) Absolute Nucleated RBC Nucleated RBC % (auto) Smear Tech's Comments VBG pH 7.36 VBG pCO2 47 VBG pO2 53 VBG HCO3 27 H VBG O2 Saturation 80.0 VBG Base Excess 1.4 Sodium Potassium Chloride Carbon Dioxide Anion Gap BUN Creatinine Estim Creat Clear Calc Estimated GFR POC Glucose 126 H Random Glucose Calcium Total Bilirubin AST ALT Alkaline Phosphatase Ammonia Total Protein Albumin Influenza Type A (PCR) NEGATIVE Influenza Type B (PCR) NEGATIVE RSV RNA Qual (PCR) NEGATIVE SARS-CoV-2 RNA (RT-PCR) NEGATIVE 11/04/24 08:08 WBC RBC Hgb Hct MCV MCH MCHC RDW Plt Count MPV Immature Gran % (Auto) Neut % (Auto) Lymph % (Auto) Perkins % (Auto) Eos % (Auto) Baso % (Auto) Lymph # (Auto) Perkins # (Auto) Eos # (Auto) Baso # (Auto) Abs Immat Gran (auto) Absolute Neuts (auto) Absolute Nucleated RBC Nucleated RBC % (auto) Smear Tech's Comments VBG pH VBG pCO2 VBG pO2 VBG HCO3 VBG O2 Saturation VBG Base Excess Sodium Potassium Chloride Carbon Dioxide Anion Gap BUN Creatinine Estim Creat Clear Calc Estimated GFR POC Glucose 107 Random Glucose Calcium Total Bilirubin AST ALT Alkaline Phosphatase Ammonia Total Protein Albumin Influenza Type A (PCR) Influenza Type B (PCR) RSV RNA Qual (PCR) SARS-CoV-2 RNA (RT-PCR) Imaging Radiology Impressions: ITS Impressions Head CT 11/03/24 15:11 IMPRESSION: 1. No acute intracranial abnormalities. No fractures. 2. Chronic changes as discussed. Electronically signed by: Benoit Powell MD 11/03/2024 04:12 PM [facility] Chest X-Ray 11/03/24 15:42 IMPRESSION: 1. Subtle patchy opacities both lung bases, and in the right mid and upper lung. Multifocal/atypical pneumonia is suspected. 2. There is no effusion or pneumothorax. Electronically signed by: Benoit Powell MD 11/03/2024 04:06 PM [facility] Medications Medications Current Medications Acetaminophen (Acetaminophen 325 Mg Tablet) 650 mg PO Q6H PRN PRN Reason: Headache/Pain, Scale 1-10 Last Admin: 11/02/24 09:30 Dose: 650 mg Al Hydroxide/Mg Hydroxide (Magnesium Hydrox/Alum Hydrox 30 Ml Oral.Susp) 30 ml PO Q6H PRN PRN Reason: Heartburn/Nausea Last Admin: 10/29/24 09:07 Dose: 30 ml Amoxicillin/Clavulanate Potassium (Amoxicillin/Potassium Clav 500 Mg Tablet) 500 mg PO Q8H [facility] Stop: 11/10/24 20:01 Last Admin: 11/04/24 04:40 Dose: 500 mg Aspirin (Aspirin 81 Mg Tab.Chew) 81 mg PO DAILY [facility] Last Admin: 11/04/24 09:06 Dose: 81 mg Atorvastatin Calcium (Atorvastatin Calcium 80 Mg Tablet) 80 mg PO DAILY [facility] Last Admin: 11/04/24 09:03 Dose: 80 mg Benztropine Mesylate (Benztropine Mesylate 0.5 Mg Tablet) 0.5 mg PO BID [facility] Last Admin: 11/04/24 09:02 Dose: 0.5 mg Bictegravir/Emtricitabine/Tenofovir (Bictegrav/Emtricit/Tenofov Ala Tablet) 1 tab PO DAILY [facility] Last Admin: 11/04/24 09:02 Dose: 1 tab Bupropion HCl (Bupropion Hcl Xl 300 Mg Tab.Er.24h) 300 mg PO DAILY [facility] Last Admin: 11/03/24 10:05 Dose: 300 mg Buspirone HCl (Buspirone Hcl 10 Mg Tablet) 10 mg PO TID [facility] Last Admin: 11/04/24 09:02 Dose: 10 mg Chlorpromazine HCl (Chlorpromazine Hcl 25 Mg Tablet) 50 mg PO QID PRN PRN Reason: anxiety-severe Last Admin: 11/03/24 10:45 Dose: 50 mg Clonidine HCl (Clonidine Hcl 0.1 Mg Tablet) 0.1 mg PO Q4H PRN; Protocol PRN Reason: moderate anxiety Last Admin: 11/03/24 23:48 Dose: 0.1 mg Clonidine HCl (Clonidine Hcl 0.1 Mg Tablet) 0.1 mg PO BID [facility]; Protocol Last Admin: 11/04/24 09:02 Dose: 0.1 mg Duloxetine HCl (Duloxetine Hcl 60 Mg Capsule.Dr) 120 mg PO DAILY [facility] Last Admin: 11/04/24 09:02 Dose: 120 mg Famotidine (Famotidine 20 Mg Tablet) 20 mg PO DAILY PRN PRN Reason: GERD Last Admin: 10/30/24 09:33 Dose: 20 mg Fluticasone/Umeclidinium/Vilanterol (Fluticasone/Umeclidinium/Vilanterol 100/62.5/25 Blst.W.Dev) 1 puff INHALE RDAILY [facility] Last Admin: 11/03/24 09:32 Dose: 1 puff Gabapentin (Gabapentin 300 Mg Capsule) 300 mg PO TID [facility] Last Admin: 11/04/24 09:02 Dose: 300 mg Hydrochlorothiazide (Hydrochlorothiazide 25 Mg Tablet) 25 mg PO DAILY [facility]; Protocol Last Admin: 11/04/24 09:02 Dose: 25 mg Hydroxyzine HCl (Hydroxyzine Hcl 25 Mg Tablet) 25 mg PO Q6H PRN PRN Reason: mild anxiety Last Admin: 11/03/24 04:01 Dose: 25 mg Ibuprofen (Ibuprofen 600 Mg Tablet) 600 mg PO Q8H PRN PRN Reason: Pain, Moderate(Pain Scale 4-6) Last Admin: 11/04/24 09:03 Dose: 600 mg Lidocaine (Lidocaine 4 % Patch Adh..Patch) 1 patch TRANSDERMA DAILY PRN; Protocol PRN Reason: left sided sciatica Last Admin: 11/03/24 21:03 Dose: 1 patch Magnesium Hydroxide (Milk Of Magnesia 30 Ml Oral.Susp) 30 ml PO DAILY PRN PRN Reason: Constipation Melatonin (Melatonin 3 Mg Tablet) 3 mg PO BEDTIME [facility] Last Admin: 11/03/24 20:58 Dose: 3 mg Metformin HCl (Metformin Hcl Er 500 Mg Tab.Er.24h) 500 mg PO BID [facility] Last Admin: 11/04/24 09:02 Dose: 500 mg Methadone HCl (Methadone Hcl 20 Mg/2 Ml Oral.Conc) 140 mg PO DAILY@0800 [facility] Last Admin: 11/04/24 07:47 Dose: 140 mg Multi-Ingred Cream/Lotion/Oil/Oint (Mineral Oil/Petrolatum,White 106 Gm Tube) 1 appl TOPICAL BID [facility]; Protocol Last Admin: 11/04/24 09:13 Dose: 1 appl Nicotine (Nicotine 21 Mg Patch.Td24) 21 mg TRANSDERMA DAILY [facility] Last Admin: 11/04/24 09:10 Dose: 21 mg Nicotine Polacrilex (Nicotine Polacrilex Lozenge 4 Mg Lozenge) 4 mg BUCCAL Q2H PRN PRN Reason: Nicotine Cravings Last Admin: 11/03/24 23:48 Dose: 4 mg Pt Owned Med ( Trulicity 1.5mg / 0. 5ml) 1 each SUBCUT Th@0900 [facility] Last Admin: 11/02/24 16:55 Dose: 1 each Nystatin (Nystatin Cream 15 Gm Tube) 1 appl TOPICAL BID PRN; Protocol PRN Reason: Rash Last Admin: 11/04/24 09:04 Dose: 1 appl Olanzapine (Olanzapine 7.5 Mg Tablet) 7.5 mg PO BEDTIME [facility] Last Admin: 11/03/24 20:58 Dose: 7.5 mg Omeprazole (Omeprazole 40 Mg Capsule.Dr) 40 mg PO BID@0630,1630 [facility] Last Admin: 11/04/24 07:06 Dose: 40 mg Prazosin HCl (Prazosin Hcl 1 Mg Capsule) 2 mg PO BEDTIME [facility]; Protocol Last Admin: 11/03/24 20:57 Dose: 2 mg Trazodone HCl (Trazodone Hcl 50 Mg Tablet) 50 mg PO BEDTIME MRX1 PRN PRN Reason: Insomnia Last Admin: 11/03/24 23:48 Dose: 50 mg Triamcinolone Acetonide (Triamcinolone Acet 0.1 % Cream 15 Gm Tube) 1 appl TOPICAL BID [facility]; Protocol Last Admin: 11/04/24 09:04 Dose: 1 appl Valsartan (Valsartan 80 Mg Tablet) 80 mg PO DAILY [facility] Last Admin: 11/04/24 09:03 Dose: 80 mg Vitamin D (Cholecalciferol (Vitamin D3) 25 Mcg Tablet) 25 mcg PO DAILY [facility] Last Admin: 11/04/24 09:03 Dose: 25 mcg Allergies Allergies Allergy/AdvReac Type Severity Reaction Status Date / Time latex [LATEX] Allergy Unknown UNKNOWN Verified 02/09/21 03:06 peanut Allergy Unknown unknown Verified 11/01/24 20:16 From [facility] Allergy Unknown UNKNOWN Uncoded 02/09/21 03:06 Assessment & Plan Assessment & Plan (1) MDD (major depressive disorder), recurrent, severe, with psychosis: Status: Acute Code(s): F33.3 - Major depressive disorder, recurrent, severe with psychotic symptoms (2) PTSD (post-traumatic stress disorder): Status: Acute Code(s): F43.10 - Post-traumatic stress disorder, unspecified (3) Opioid use disorder: Status: Acute Code(s): F11.99 - Opioid use, unspecified with unspecified opioid-induced disorder (4) Cocaine abuse: Status: Acute Code(s): F14.10 - Cocaine abuse, uncomplicated (5) Polysubstance use disorder: Status: Acute Code(s): F19.90 - Other psychoactive substance use, unspecified, uncomplicated (6) History of HIV or AIDS: Status: Acute (7) Homeless: Status: Acute Code(s): Z59.00 - Homelessness unspecified Plan Hospital course: 10/23 Decrease chlorpromaxine to 25 mg qid prn Decrease olanzapine to 20 mg HS Decrease Benztropine to 0.5 mg bid 10/24 shared recent hx and pt reports he has been off medications for 3 weeks following relapse after 15-16 months of sobriety. Thinks relapse maybe partly due to the one year anniversary of his girlfriends . While sober, on Gabapentin, Cymbalta, trazodone, pt mood good, though anxiety/panic remained. Currently, still very depressed; says SI thoughts come and go, which are still lingering; some he can shrug off. AH less now. -Agreed to get back on Gabapentin which he used for nerve pain, but also helped with anxiety -discussed dx since he carries bipolar dx; However, pt says longest manic episode lasts only a day at most and usually only a couple of hours -shared about family relationships -talked about growing up; HS Impression:will change dx to MDD with pschotic features (he agrees with change in dx; will leave bipolar as rule out, however from reporting does not meet criteria). remains depressed but only just back on meds. 10/25 still very depressed; forcing self to go to groups and says almost panicked, but went out of group for a bit, calmed down and then returned. Reviewed options and pt agrees to try Wellbutrin XR 150mg for depression 10/26 pt reports he's feeling very depressed today, but does not know why; agrees to increase wellbutrin 10/27 continue tx regimen 10/28 reports mood is alright and is slowly getting a little better, out of room more, easier to push self to do ADL's; thus will leave wellbutrin as is for now -nightmares returned for past 2 days, which do during times of depression. Discussed Prazosin and how it can cause lightheadedness/dizziness... agreed to try it anyway since nightmare are bothersome 10/29 patient reports he is starting to feel little better; nightmares less intense; continue current regimen 10/30 Patient remains overall doing better, mood is better and would like to leave Wellbutrin as it is. However he continues to have nightmares from childhood trauma. Patient shared a little about history of trauma, that he has never talked about it before or processed it, finding it hard to trust people. Discussed the role of therapy and how it can help and patient said he very much feels the need to engage with a therapist. Given nightmares patient agreed to increase prazosin. -Discussed last night's bout of confusion where he was unclear where his room was and accidentally got into his roommate's bed (which was empty) to sleep; he does not remember much of it and says he has been told that he sleep walks. Patient currently presents organized in speech behavior -have discussed substance abuse treatment and patient will remain on methadone; looking to go to a substance abuse program 10/31 starting BuSpar; will titrate Patient remains in good behavioral and impulse control inappropriate with peers and staff. He is engaged in treatment, attending groups and forthcoming in 1 1 sessions. Patient is stable on current medication regimen 11/01 pt remains very anxious; agrees to increase in buspar which is tolerated; he asks for increase in thorazine as well. Got challenging news about his brothers dx of cancer, but handling news well. -c/o trouble swallowing; speech eval ordered barium swallow 11/02 Patient overall feels better. Mood is better and even feels that his anxiety is improved. Patient is pleased with medication regimen and would like to continue with it. Very much hoping to get into a program. He remains engaged in treatment. -Patient got a little dizzy after standing up quickly and sad himself down. Orthostatics checked and patient was found to be positive for orthostatic hypotension. Education provided 11/03 Pt sustained a fall. He appears to be having absence seizure activity Hold wellbutrin, chlorpromazine EKG, EEG, CBCD, CMP Pt seen by Dr. Wilbur, he will have IVF Speech recommends OP BAS Sleep study also is recommended Continue to monitor. Pt remains in good behavioral and impulse control Pt is stable on current medication regimen 3/ Add Cepacol for sore throat. D/C IV line. 5 minutes check. Rest the same. PLAN: Admit, 15 minute checks barium swallow Increase to BuSpar 10 mg t.i.d.; will titrate Continue prazosin 2 mg qhs for nightmares continue Cymbalta 120mg Increase to Wellbutrin XR 300mg for depression Continue Gabapentin 300mg tid (was on before and helped w/ neuropathic pain and anxiety) Continue metformin 500mg BID (will consider whether to titrate to 1000mg bid his home dose) trulicity weekly (he missed last week) clonidine0.1mg qhs lowered zyprexa to 7.5mg; pt denies psychotic symptoms other than echoes, distant voice that only occur when depressed Lidocaine patch for sciatica Triamcinolone cream-underarm rash Chlorpromazine trial prn (pt reports very helpful by hx for sx mgt) Decrease chlorpromaxine to 25 mg qid prn Decrease olanzapine to 20 mg HS Decrease Benztropine to 0.5 mg bid Patient educated on: diagnosis, medication risk/benefits and therapeutic strategies Reason for continued inpatient stay Substantial Risk for: inability to function, rapid decompensation and med/psych decompensation Time Spent With Patient Time: Total time managing care of this patient today _20___ minutes.
[2024-11-04] MEDS: Nicotine Polacrilex Lozenge 4 MG LOZENGE BUCCAL ×5 (11:12→20:11)
[2024-11-04] MEDS: Throat Lozenge, Medicated LOZENGE 1 LOZENGE MUCOUS MEM ×4 (11:12→20:29)
[2024-11-04] MEDS: hydrOXYzine HCL 25 MG TABLET PO (14:24)
[2024-11-04] MEDS: Acetaminophen 325 MG TABLET 650 MG PO (14:24)
[2024-11-04 14:25] VITALS: BP 128/84
[2024-11-04 19:50] VITALS: BP 116/74; PULSE 62; RESP 15; TEMP 36.3; O2SAT 96
[2024-11-04] MEDS: traZODone HCL 50 MG TABLET PO (20:11)
[2024-11-04] MEDS: Melatonin 3 MG TABLET PO (20:11)
[2024-11-04] MEDS: OLANZapine 7.5 MG TABLET PO (20:11)
[2024-11-04] MEDS: Prazosin HCL 1 MG CAPSULE 2 MG PO (20:12)
[2024-11-04 20:45] LABS: Glucose, Whole Blood 131 mg/dL (60-115)
[2024-11-05] MEDS: Amoxicillin/Potassium Clav 500 MG TABLET PO ×3 (04:18→20:34)
[2024-11-05] MEDS: Omeprazole 40 MG CAPSULE.DR PO ×2 (06:48→15:49)
[2024-11-05] MEDS: methADONE HCl 20 MG/2 ML ORAL.CONC 140 MG PO (07:43)
[2024-11-05 08:00] VITALS: BP 140/79; PULSE 53; RESP 16; TEMP 36.6; O2SAT 94
[2024-11-05 08:34] LABS: Glucose, Whole Blood 100 mg/dL (60-115)
[2024-11-05] MEDS: Fluticasone/Umeclidinium/Vilanterol 100/62.5/25 BLST.W.DEV 1 PUFF INHALE (08:51)
[2024-11-05] MEDS: Atorvastatin Calcium 80 MG TABLET PO (08:51)
[2024-11-05] MEDS: metFORMIN HCl ER 500 MG TAB.ER.24H PO ×2 (08:51→20:35)
[2024-11-05] MEDS: hydroCHLOROthiazide 25 MG TABLET PO (08:51)
[2024-11-05] MEDS: Benztropine Mesylate 0.5 MG TABLET PO ×2 (08:51→20:39)
[2024-11-05] MEDS: hydrOXYzine HCL 25 MG TABLET PO ×2 (08:51→15:49)
[2024-11-05] MEDS: cloNIDine HCL 0.1 MG TABLET PO ×3 (08:51→20:33)
[2024-11-05] MEDS: Cholecalciferol (Vitamin D3) 25 MCG TABLET PO (08:52)
[2024-11-05] MEDS: Ibuprofen 600 MG TABLET PO ×2 (08:52→17:45)
[2024-11-05] MEDS: Famotidine 20 MG TABLET PO (08:52)
[2024-11-05] MEDS: Bictegrav/Emtricit/Tenofov Ala TABLET 1 TAB PO (08:52)
[2024-11-05] MEDS: DULoxetine HCl 60 MG CAPSULE.DR 120 MG PO (08:52)
[2024-11-05] MEDS: Throat Lozenge, Medicated LOZENGE 1 LOZENGE MUCOUS MEM ×5 (08:52→20:43)
[2024-11-05] MEDS: Aspirin 81 MG TAB.CHEW PO (08:52)
[2024-11-05] MEDS: Gabapentin 300 MG CAPSULE PO ×3 (08:52→21:25)
[2024-11-05] MEDS: busPIRone HCl 10 MG TABLET PO ×3 (08:52→20:34)
[2024-11-05] MEDS: Lidocaine 4 % Patch ADH..PATCH 1 PATCH TRANSDERMA (08:53)
[2024-11-05] MEDS: Nicotine Polacrilex Lozenge 4 MG LOZENGE BUCCAL ×5 (08:53→20:34)
[2024-11-05] MEDS: Nicotine 21 MG PATCH.TD24 TRANSDERMA (08:53)
[2024-11-05] MEDS: Valsartan 80 MG TABLET PO (08:53)
[2024-11-05] MEDS: Nystatin Cream 15 GM TUBE 1 APPL TOPICAL (08:58)
[2024-11-05] MEDS: Triamcinolone Acet 0.1 % Cream 15 GM TUBE 1 APPL TOPICAL (08:58)
[2024-11-05] MEDS: Mineral Oil/Petrolatum,White 106 GM Tube 1 APPL TOPICAL (08:59)
--- NOTE | 2024-11-05 12:33 | P.PNPSI_ITS ---
Subjective Subjective Date of Service: 11/05/24 Reason For Visit: Major depressive d/o PTSD Opioid Use Disorder Mode Subjective Notes: Conditional Voluntary Interim History: The nursing staff reported the patient had been compliant with treatment he looks better. He was complaining of pain and requested ibuprofen. The primary team was expecting to re-start Thorazine once he was already detoxed. On interview we discussed options and the patient agreed to restart Thorazine and a very low dose and start ibuprofen p.r.n. severe pain. Mental Status Exam Mental Status Exam Patient Appearance: Appropriate Patient Orientation: Person and Situation Level of Consciousness: Awake and Appropriate Patient Behavior: Cooperative and Passive Mood Description: Calm Affect Description: Constricted Patient Cognition Impaired: Yes Ability to Follow Directions: Good Speech Pattern: Clear Hallucinations: None Delusions: Ideas of Reference Thought Process: Distracted and Slowed Thinking Thought Content: positive for [place] and positive for Poverty of Content Judgement: Fair Diagnostics Vital Signs (24Hr): Vital Signs - 24 hr 11/04/24 14:25 11/04/24 19:50 11/05/24 08:00 Temperature 97.3 F 97.8 F Pulse Rate 62 53 Respiratory Rate 15 16 Blood Pressure 128/84 116/74 140/79 H Pulse Oximetry 96 94 Oxygen Delivery Method Room Air BMI result Body Mass Index 32.5 Labs 11/03/24 14:45 11/03/24 14:41 Labs: Laboratory Results - last 48 hr 11/03/24 11/03/24 11/03/24 14:41 14:45 15:40 WBC 12.8 H RBC 3.59 L Hgb 11.6 L Hct 33.7 L MCV 93.9 MCH 32.3 MCHC 34.4 RDW 12.5 Plt Count 165 MPV 9.7 Immature Gran % (Auto) 0.5 H Neut % (Auto) 66.1 Lymph % (Auto) 23.8 [place] % (Auto) 7.3 Eos % (Auto) 1.9 Baso % (Auto) 0.4 Lymph # (Auto) 3.1 [place] # (Auto) 0.9 Eos # (Auto) 0.2 Baso # (Auto) 0.1 Abs Immat Gran (auto) 0.06 H Absolute Neuts (auto) 8.5 H Absolute Nucleated RBC 0.000 Nucleated RBC % (auto) 0.0 Smear Tech's Comments VERIFIED VBG pH VBG pCO2 VBG pO2 VBG HCO3 VBG O2 Saturation VBG Base Excess Sodium 136 Potassium 4.5 Chloride 102 Carbon Dioxide 23 Anion Gap 16 BUN 26 H Creatinine 1.42 H Estim Creat Clear Calc 69.4 Estimated GFR 53 POC Glucose Random Glucose 75 Calcium 9.2 Total Bilirubin 0.7 AST 18 ALT 23 Alkaline Phosphatase 124 H Ammonia 37 Total Protein 7.6 Albumin 4.0 Influenza Type A (PCR) Influenza Type B (PCR) RSV RNA Qual (PCR) SARS-CoV-2 RNA (RT-PCR) 11/03/24 11/03/24 11/03/24 15:45 16:10 21:18 WBC RBC Hgb Hct MCV MCH MCHC RDW Plt Count MPV Immature Gran % (Auto) Neut % (Auto) Lymph % (Auto) [place] % (Auto) Eos % (Auto) Baso % (Auto) Lymph # (Auto) [place] # (Auto) Eos # (Auto) Baso # (Auto) Abs Immat Gran (auto) Absolute Neuts (auto) Absolute Nucleated RBC Nucleated RBC % (auto) Smear Tech's Comments VBG pH 7.36 VBG pCO2 47 VBG pO2 53 VBG HCO3 27 H VBG O2 Saturation 80.0 VBG Base Excess 1.4 Sodium Potassium Chloride Carbon Dioxide Anion Gap BUN Creatinine Estim Creat Clear Calc Estimated GFR POC Glucose 126 H Random Glucose Calcium Total Bilirubin AST ALT Alkaline Phosphatase Ammonia Total Protein Albumin Influenza Type A (PCR) NEGATIVE Influenza Type B (PCR) NEGATIVE RSV RNA Qual (PCR) NEGATIVE SARS-CoV-2 RNA (RT-PCR) NEGATIVE 11/04/24 11/04/24 11/05/24 08:08 20:41 08:22 WBC RBC Hgb Hct MCV MCH MCHC RDW Plt Count MPV Immature Gran % (Auto) Neut % (Auto) Lymph % (Auto) [place] % (Auto) Eos % (Auto) Baso % (Auto) Lymph # (Auto) [place] # (Auto) Eos # (Auto) Baso # (Auto) Abs Immat Gran (auto) Absolute Neuts (auto) Absolute Nucleated RBC Nucleated RBC % (auto) Smear Tech's Comments VBG pH VBG pCO2 VBG pO2 VBG HCO3 VBG O2 Saturation VBG Base Excess Sodium Potassium Chloride Carbon Dioxide Anion Gap BUN Creatinine Estim Creat Clear Calc Estimated GFR POC Glucose 107 131 H 100 Random Glucose Calcium Total Bilirubin AST ALT Alkaline Phosphatase Ammonia Total Protein Albumin Influenza Type A (PCR) Influenza Type B (PCR) RSV RNA Qual (PCR) SARS-CoV-2 RNA (RT-PCR) Imaging Radiology Impressions: ITS Impressions Head CT 11/03/24 15:11 IMPRESSION: 1. No acute intracranial abnormalities. No fractures. 2. Chronic changes as discussed. Electronically signed by: Benoit Powell MD 11/03/2024 04:12 PM EST RP Chest X-Ray 11/03/24 15:42 IMPRESSION: 1. Subtle patchy opacities both lung bases, and in the right mid and upper lung. Multifocal/atypical pneumonia is suspected. 2. There is no effusion or pneumothorax. Electronically signed by: Benoit Powell MD 11/03/2024 04:06 PM EST RP Medications Medications Current Medications Acetaminophen (Acetaminophen 325 Mg Tablet) 650 mg PO Q6H PRN PRN Reason: Headache/Pain, Scale 1-10 Last Admin: 11/04/24 14:24 Dose: 650 mg Al Hydroxide/Mg Hydroxide (Magnesium Hydrox/Alum Hydrox 30 Ml Oral.Susp) 30 ml PO Q6H PRN PRN Reason: Heartburn/Nausea Last Admin: 10/29/24 09:07 Dose: 30 ml Amoxicillin/Clavulanate Potassium (Amoxicillin/Potassium Clav 500 Mg Tablet) 500 mg PO Q8H [facility] Stop: 11/10/24 20:01 Last Admin: 11/05/24 04:18 Dose: 500 mg Aspirin (Aspirin 81 Mg Tab.Chew) 81 mg PO DAILY [facility] Last Admin: 11/05/24 08:52 Dose: 81 mg Atorvastatin Calcium (Atorvastatin Calcium 80 Mg Tablet) 80 mg PO DAILY [facility] Last Admin: 11/05/24 08:51 Dose: 80 mg Benzocaine (Throat Lozenge, Medicated Lozenge) 1 lozenge MUCOUS MEM Q2H PRN PRN Reason: Sore Throat Last Admin: 11/05/24 10:47 Dose: 1 lozenge Benztropine Mesylate (Benztropine Mesylate 0.5 Mg Tablet) 0.5 mg PO BID [facility] Last Admin: 11/05/24 08:51 Dose: 0.5 mg Bictegravir/Emtricitabine/Tenofovir (Bictegrav/Emtricit/Tenofov Ala Tablet) 1 tab PO DAILY [facility] Last Admin: 11/05/24 08:52 Dose: 1 tab Bupropion HCl (Bupropion Hcl Xl 300 Mg Tab.Er.24h) 300 mg PO DAILY [facility] Last Admin: 11/03/24 10:05 Dose: 300 mg Buspirone HCl (Buspirone Hcl 10 Mg Tablet) 10 mg PO TID [facility] Last Admin: 11/05/24 08:52 Dose: 10 mg Chlorpromazine HCl (Chlorpromazine Hcl 25 Mg Tablet) 50 mg PO QID PRN PRN Reason: anxiety-severe Last Admin: 11/03/24 10:45 Dose: 50 mg Clonidine HCl (Clonidine Hcl 0.1 Mg Tablet) 0.1 mg PO Q4H PRN; Protocol PRN Reason: moderate anxiety Last Admin: 11/04/24 14:25 Dose: 0.1 mg Clonidine HCl (Clonidine Hcl 0.1 Mg Tablet) 0.1 mg PO BID [facility]; Protocol Last Admin: 11/05/24 08:51 Dose: 0.1 mg Duloxetine HCl (Duloxetine Hcl 60 Mg Capsule.Dr) 120 mg PO DAILY [facility] Last Admin: 11/05/24 08:52 Dose: 120 mg Famotidine (Famotidine 20 Mg Tablet) 20 mg PO DAILY PRN PRN Reason: GERD Last Admin: 11/05/24 08:52 Dose: 20 mg Fluticasone/Umeclidinium/Vilanterol (Fluticasone/Umeclidinium/Vilanterol 100/62.5/25 Blst.W.Dev) 1 puff INHALE RDAILY [facility] Last Admin: 11/05/24 08:51 Dose: 1 puff Gabapentin (Gabapentin 300 Mg Capsule) 300 mg PO TID [facility] Last Admin: 11/05/24 08:52 Dose: 300 mg Hydrochlorothiazide (Hydrochlorothiazide 25 Mg Tablet) 25 mg PO DAILY [facility]; Protocol Last Admin: 11/05/24 08:51 Dose: 25 mg Hydroxyzine HCl (Hydroxyzine Hcl 25 Mg Tablet) 25 mg PO Q6H PRN PRN Reason: mild anxiety Last Admin: 11/05/24 08:51 Dose: 25 mg Ibuprofen (Ibuprofen 600 Mg Tablet) 600 mg PO Q8H PRN PRN Reason: Pain, Moderate(Pain Scale 4-6) Last Admin: 11/05/24 08:52 Dose: 600 mg Lidocaine (Lidocaine 4 % Patch Adh..Patch) 1 patch TRANSDERMA DAILY PRN; Protocol PRN Reason: left sided sciatica Last Admin: 11/05/24 08:53 Dose: 1 patch Magnesium Hydroxide (Milk Of Magnesia 30 Ml Oral.Susp) 30 ml PO DAILY PRN PRN Reason: Constipation Melatonin (Melatonin 3 Mg Tablet) 3 mg PO BEDTIME MARYLU Last Admin: 11/04/24 20:11 Dose: 3 mg Metformin HCl (Metformin Hcl Er 500 Mg Tab.Er.24h) 500 mg PO BID [facility] Last Admin: 11/05/24 08:51 Dose: 500 mg Methadone HCl (Methadone Hcl 20 Mg/2 Ml Oral.Conc) 140 mg PO DAILY@0800 [facility] Last Admin: 11/05/24 07:43 Dose: 140 mg Multi-Ingred Cream/Lotion/Oil/Oint (Mineral Oil/Petrolatum,White 106 Gm Tube) 1 appl TOPICAL BID [facility]; Protocol Last Admin: 11/05/24 08:59 Dose: 1 appl Nicotine (Nicotine 21 Mg Patch.Td24) 21 mg TRANSDERMA DAILY [facility] Last Admin: 11/05/24 08:53 Dose: 21 mg Nicotine Polacrilex (Nicotine Polacrilex Lozenge 4 Mg Lozenge) 4 mg BUCCAL Q2H PRN PRN Reason: Nicotine Cravings Last Admin: 11/05/24 10:48 Dose: 4 mg Pt Owned Med ( Trulicity 1.5mg / 0. 5ml) 1 each SUBCUT Th@0900 [facility] Last Admin: 11/02/24 16:55 Dose: 1 each Nystatin (Nystatin Cream 15 Gm Tube) 1 appl TOPICAL BID PRN; Protocol PRN Reason: Rash Last Admin: 11/05/24 08:58 Dose: 1 appl Olanzapine (Olanzapine 7.5 Mg Tablet) 7.5 mg PO BEDTIME [facility] Last Admin: 11/04/24 20:11 Dose: 7.5 mg Omeprazole (Omeprazole 40 Mg Capsule.Dr) 40 mg PO BID@0630,1630 [facility] Last Admin: 11/05/24 06:48 Dose: 40 mg Prazosin HCl (Prazosin Hcl 1 Mg Capsule) 2 mg PO BEDTIME [facility]; Protocol Last Admin: 11/04/24 20:12 Dose: 2 mg Trazodone HCl (Trazodone Hcl 50 Mg Tablet) 50 mg PO BEDTIME MRX1 PRN PRN Reason: Insomnia Last Admin: 11/04/24 20:11 Dose: 50 mg Triamcinolone Acetonide (Triamcinolone Acet 0.1 % Cream 15 Gm Tube) 1 appl TOPICAL BID [facility]; Protocol Last Admin: 11/05/24 08:58 Dose: 1 appl Valsartan (Valsartan 80 Mg Tablet) 80 mg PO DAILY [facility] Last Admin: 11/05/24 08:53 Dose: 80 mg Vitamin D (Cholecalciferol (Vitamin D3) 25 Mcg Tablet) 25 mcg PO DAILY [facility] Last Admin: 11/05/24 08:52 Dose: 25 mcg Allergies Allergies Allergy/AdvReac Type Severity Reaction Status Date / Time latex [LATEX] Allergy Unknown UNKNOWN Verified 02/09/21 03:06 peanut Allergy Unknown unknown Verified 11/01/24 20:16 From PERCOCET Allergy Unknown UNKNOWN Uncoded 02/09/21 03:06 Assessment & Plan Assessment & Plan (1) MDD (major depressive disorder), recurrent, severe, with psychosis: Status: Acute Code(s): F33.3 - Major depressive disorder, recurrent, severe with psychotic symptoms (2) PTSD (post-traumatic stress disorder): Status: Acute Code(s): F43.10 - Post-traumatic stress disorder, unspecified (3) Opioid use disorder: Status: Acute Code(s): F11.99 - Opioid use, unspecified with unspecified opioid-induced disorder (4) Cocaine abuse: Status: Acute Code(s): F14.10 - Cocaine abuse, uncomplicated (5) Polysubstance use disorder: Status: Acute Code(s): F19.90 - Other psychoactive substance use, unspecified, uncomplicated (6) History of HIV or AIDS: Status: Acute (7) Homeless: Status: Acute Code(s): Z59.00 - Homelessness unspecified Plan Hospital course: 10/23 Decrease chlorpromaxine to 25 mg qid prn Decrease olanzapine to 20 mg HS Decrease Benztropine to 0.5 mg bid 10/24 shared recent hx and pt reports he has been off medications for 3 weeks following relapse after 15-16 months of sobriety. Thinks relapse maybe partly due to the one year anniversary of his girlfriends . While sober, on Gabapentin, Cymbalta, trazodone, pt mood good, though anxiety/panic remained. Currently, still very depressed; says SI thoughts come and go, which are still lingering; some he can shrug off. AH less now. -Agreed to get back on Gabapentin which he used for nerve pain, but also helped with anxiety -discussed dx since he carries bipolar dx; However, pt says longest manic episode lasts only a day at most and usually only a couple of hours -shared about family relationships -talked about growing up; HS Impression:will change dx to MDD with pschotic features (he agrees with change in dx; will leave bipolar as rule out, however from reporting does not meet criteria). remains depressed but only just back on meds. 10/25 still very depressed; forcing self to go to groups and says almost panicked, but went out of group for a bit, calmed down and then returned. Reviewed options and pt agrees to try Wellbutrin XR 150mg for depression 10/26 pt reports he's feeling very depressed today, but does not know why; agrees to increase wellbutrin 10/27 continue tx regimen 10/28 reports mood is alright and is slowly getting a little better, out of room more, easier to push self to do ADL's; thus will leave wellbutrin as is for now -nightmares returned for past 2 days, which do during times of depression. Discussed Prazosin and how it can cause lightheadedness/dizziness... agreed to try it anyway since nightmare are bothersome 10/29 patient reports he is starting to feel little better; nightmares less intense; continue current regimen 10/30 Patient remains overall doing better, mood is better and would like to leave Wellbutrin as it is. However he continues to have nightmares from childhood trauma. Patient shared a little about history of trauma, that he has never talked about it before or processed it, finding it hard to trust people. Discussed the role of therapy and how it can help and patient said he very much feels the need to engage with a therapist. Given nightmares patient agreed to increase prazosin. -Discussed last night's bout of confusion where he was unclear where his room was and accidentally got into his roommate's bed (which was empty) to sleep; he does not remember much of it and says he has been told that he sleep walks. Patient currently presents organized in speech behavior -have discussed substance abuse treatment and patient will remain on methadone; looking to go to a substance abuse program 10/31 starting BuSpar; will titrate Patient remains in good behavioral and impulse control inappropriate with peers and staff. He is engaged in treatment, attending groups and forthcoming in 1 1 sessions. Patient is stable on current medication regimen 11/01 pt remains very anxious; agrees to increase in buspar which is tolerated; he asks for increase in thorazine as well. Got challenging news about his brothers dx of cancer, but handling news well. -c/o trouble swallowing; speech eval ordered barium swallow 11/02 Patient overall feels better. Mood is better and even feels that his anxiety is improved. Patient is pleased with medication regimen and would like to continue with it. Very much hoping to get into a program. He remains engaged in treatment. -Patient got a little dizzy after standing up quickly and sad himself down. Orthostatics checked and patient was found to be positive for orthostatic hypotension. Education provided 11/03 Pt sustained a fall. He appears to be having absence seizure activity Hold wellbutrin, chlorpromazine EKG, EEG, CBCD, CMP Pt seen by Dr. Bowles, he will have IVF Speech recommends OP BAS Sleep study also is recommended Continue to monitor. Pt remains in good behavioral and impulse control Pt is stable on current medication regimen 11/04 Add Cepacol for sore throat. D/C IV line. 5 minutes check. Rest the same. 11/05 start Thorazine 10 mg PO TID. Ibuprofen 400 mg p.o. q.6 hours p.r.n. pain PLAN: Admit, 15 minute checks barium swallow Increase to BuSpar 10 mg t.i.d.; will titrate Continue prazosin 2 mg qhs for nightmares continue Cymbalta 120mg Increase to Wellbutrin XR 300mg for depression Continue Gabapentin 300mg tid (was on before and helped w/ neuropathic pain and anxiety) Continue metformin 500mg BID (will consider whether to titrate to 1000mg bid his home dose) trulicity weekly (he missed last week) clonidine0.1mg qhs lowered zyprexa to 7.5mg; pt denies psychotic symptoms other than echoes, distant voice that only occur when depressed Lidocaine patch for sciatica Triamcinolone cream-underarm rash Chlorpromazine trial prn (pt reports very helpful by hx for sx mgt) Decrease chlorpromaxine to 25 mg qid prn Decrease olanzapine to 20 mg HS Decrease Benztropine to 0.5 mg bid Patient educated on: diagnosis, medication risk/benefits and therapeutic strategies Reason for continued inpatient stay Substantial Risk for: inability to function, rapid decompensation and med/psych decompensation Time Spent With Patient Time: Total time managing care of this patient today __20__ minutes.
[2024-11-05 15:49] VITALS: BP 130/70
[2024-11-05] MEDS: Acetaminophen 325 MG TABLET 650 MG PO (15:49)
[2024-11-05] MEDS: chlorproMAZINE HCl 10 MG TABLET PO ×2 (15:53→20:37)
[2024-11-05] MEDS: Milk of Magnesia 30 ML ORAL.SUSP PO (17:45)
[2024-11-05 20:00] VITALS: BP 114/64; PULSE 62; RESP 15; TEMP 36.4; O2SAT 97
[2024-11-05] MEDS: Melatonin 3 MG TABLET PO (20:33)
[2024-11-05] MEDS: Prazosin HCL 1 MG CAPSULE 2 MG PO (20:34)
[2024-11-05] MEDS: traZODone HCL 50 MG TABLET PO (20:34)
[2024-11-05] MEDS: OLANZapine 7.5 MG TABLET PO (20:34)
[2024-11-05 20:47] LABS: Glucose, Whole Blood 109 mg/dL (60-115)
[2024-11-06] MEDS: Amoxicillin/Potassium Clav 500 MG TABLET PO ×3 (05:07→20:28)
[2024-11-06] MEDS: Throat Lozenge, Medicated LOZENGE 1 LOZENGE MUCOUS MEM ×2 (05:10→14:46)
[2024-11-06] MEDS: Nicotine Polacrilex Lozenge 4 MG LOZENGE BUCCAL ×5 (05:10→21:18)
[2024-11-06] MEDS: Omeprazole 40 MG CAPSULE.DR PO ×2 (06:49→17:30)
[2024-11-06 08:00] VITALS: BP 148/72; PULSE 55; RESP 18; TEMP 36.8; O2SAT 95
[2024-11-06] MEDS: methADONE HCl 20 MG/2 ML ORAL.CONC 140 MG PO (08:04)
[2024-11-06] MEDS: Bictegrav/Emtricit/Tenofov Ala TABLET 1 TAB PO (08:37)
[2024-11-06] MEDS: Cholecalciferol (Vitamin D3) 25 MCG TABLET PO (08:37)
[2024-11-06] MEDS: Aspirin 81 MG TAB.CHEW PO (08:37)
[2024-11-06] MEDS: DULoxetine HCl 60 MG CAPSULE.DR 120 MG PO (08:37)
[2024-11-06] MEDS: cloNIDine HCL 0.1 MG TABLET PO ×2 (08:38→20:28)
[2024-11-06] MEDS: hydroCHLOROthiazide 25 MG TABLET PO (08:38)
[2024-11-06] MEDS: Valsartan 80 MG TABLET PO (08:38)
[2024-11-06] MEDS: Benztropine Mesylate 0.5 MG TABLET PO ×2 (08:38→20:29)
[2024-11-06] MEDS: Gabapentin 300 MG CAPSULE PO ×3 (08:39→20:29)
[2024-11-06] MEDS: metFORMIN HCl ER 500 MG TAB.ER.24H PO ×2 (08:39→20:29)
[2024-11-06] MEDS: busPIRone HCl 10 MG TABLET PO ×3 (08:39→20:29)
[2024-11-06] MEDS: Fluticasone/Umeclidinium/Vilanterol 100/62.5/25 BLST.W.DEV 1 PUFF INHALE (08:40)
[2024-11-06] MEDS: Atorvastatin Calcium 80 MG TABLET PO (08:40)
[2024-11-06] MEDS: Mineral Oil/Petrolatum,White 106 GM Tube 1 APPL TOPICAL (08:42)
[2024-11-06] MEDS: Nystatin Cream 15 GM TUBE 1 APPL TOPICAL (08:42)
[2024-11-06] MEDS: Triamcinolone Acet 0.1 % Cream 15 GM TUBE 1 APPL TOPICAL (08:42)
[2024-11-06] MEDS: Nicotine 21 MG PATCH.TD24 TRANSDERMA (08:43)
[2024-11-06] MEDS: chlorproMAZINE HCl 10 MG TABLET PO ×3 (08:44→20:29)
[2024-11-06] MEDS: Lidocaine 4 % Patch ADH..PATCH 1 PATCH TRANSDERMA (08:45)
[2024-11-06] MEDS: Ibuprofen 600 MG TABLET PO (09:03)
[2024-11-06] MEDS: Milk of Magnesia 30 ML ORAL.SUSP PO (09:05)
--- NOTE | 2024-11-06 09:44 | HO.PSYCHPN ---
Subjective Subjective Date of Service: 11/06/24 Reason For Visit: Major depressive d/o PTSD Opioid Use Disorder Mode Interim History: Met with patient; discussed with team; reviewed chart Patient reports that overall mood and anxiety are better. Does miss being on Wellbutrin but it is being held till after EEG. Patient was accepted to [facility] but declined saying he had been there before and found the atmosphere counter therapeutic; he is hoping to get into 1 of the other 2 programs applied to but if not he understands and agrees that he will just work on sobriety on his own in the outpatient world. Otherwise sleeping and eating well. No dizzy spells Mental Status Exam Mental Status Exam Narrative: Pt is alert and oriented; behavior is cooperative, quiet, friendly, engaged; patient is not in distress; dressed in hospital attire, unkempt, but adequate hygiene; mood is described as good and affect congruent, more calm; eye contact adequate; Speech is at baseline, a little slowed and soft; no psychomotor retardation; thought process is organized and goal directed; Thought content is on processing feelings, treatment; otherwise pertinent to relevant topics and without any delusional content, paranoid ideations or grandiosity; no SI; no HI; No AVH; There is no evidence of perceptual disturbance. Patients insight and judgment fair Diagnostics Vital Signs (24Hr): Vital Signs - 24 hr 11/05/24 15:49 11/05/24 20:00 11/06/24 08:00 Temperature 97.5 F 98.2 F Pulse Rate 62 55 Respiratory Rate 15 18 Blood Pressure 130/70 114/64 148/72 H Pulse Oximetry 97 95 Oxygen Delivery Method Room Air BMI result Body Mass Index 32.5 Labs 11/03/24 14:45 11/03/24 14:41 Labs: Laboratory Results - last 48 hr 11/04/24 11/05/24 11/05/24 20:41 08:22 20:41 POC Glucose 131 H 100 109 Imaging Radiology Impressions: ITS Impressions Head CT 11/03/24 15:11 IMPRESSION: 1. No acute intracranial abnormalities. No fractures. 2. Chronic changes as discussed. Electronically signed by: Benoit Powell MD 11/03/2024 04:12 PM [facility] [place]Ray 11/03/24 15:42 IMPRESSION: 1. Subtle patchy opacities both lung bases, and in the right mid and upper lung. Multifocal/atypical pneumonia is suspected. 2. There is no effusion or pneumothorax. Electronically signed by: Benoit Powell MD 11/03/2024 04:06 PM [facility] [place] Medications Medications Current Medications Acetaminophen (Acetaminophen 325 Mg Tablet) 650 mg PO Q6H PRN PRN Reason: Headache/Pain, Scale 1-10 Last Admin: 11/05/24 15:49 Dose: 650 mg Al Hydroxide/Mg Hydroxide (Magnesium Hydrox/Alum Hydrox 30 Ml Oral.Susp) 30 ml PO Q6H PRN PRN Reason: Heartburn/Nausea Last Admin: 10/29/24 09:07 Dose: 30 ml Amoxicillin/Clavulanate Potassium (Amoxicillin/Potassium Clav 500 Mg Tablet) 500 mg PO Q8H [facility] Stop: 11/10/24 20:01 Last Admin: 11/06/24 05:07 Dose: 500 mg Aspirin (Aspirin 81 Mg Tab.Chew) 81 mg PO DAILY [facility] Last Admin: 11/06/24 08:37 Dose: 81 mg Atorvastatin Calcium (Atorvastatin Calcium 80 Mg Tablet) 80 mg PO DAILY [facility] Last Admin: 11/06/24 08:40 Dose: 80 mg Benzocaine (Throat Lozenge, Medicated Lozenge) 1 lozenge MUCOUS MEM Q2H PRN PRN Reason: Sore Throat Last Admin: 11/06/24 05:10 Dose: 1 lozenge Benztropine Mesylate (Benztropine Mesylate 0.5 Mg Tablet) 0.5 mg PO BID [facility] Last Admin: 11/06/24 08:38 Dose: 0.5 mg Bictegravir/Emtricitabine/Tenofovir (Bictegrav/Emtricit/Tenofov Ala Tablet) 1 tab PO DAILY [facility] Last Admin: 11/06/24 08:37 Dose: 1 tab Bupropion HCl (Bupropion Hcl Xl 300 Mg Tab.Er.24h) 300 mg PO DAILY [facility] Last Admin: 11/03/24 10:05 Dose: 300 mg Buspirone HCl (Buspirone Hcl 10 Mg Tablet) 10 mg PO TID [facility] Last Admin: 11/06/24 08:39 Dose: 10 mg Chlorpromazine HCl (Chlorpromazine Hcl 25 Mg Tablet) 50 mg PO QID PRN PRN Reason: anxiety-severe Last Admin: 11/03/24 10:45 Dose: 50 mg Chlorpromazine HCl (Chlorpromazine Hcl 10 Mg Tablet) 10 mg PO TID [facility] Last Admin: 11/06/24 08:44 Dose: 10 mg Clonidine HCl (Clonidine Hcl 0.1 Mg Tablet) 0.1 mg PO Q4H PRN; Protocol PRN Reason: moderate anxiety Last Admin: 11/05/24 15:49 Dose: 0.1 mg Clonidine HCl (Clonidine Hcl 0.1 Mg Tablet) 0.1 mg PO BID [facility]; Protocol Last Admin: 11/06/24 08:38 Dose: 0.1 mg Duloxetine HCl (Duloxetine Hcl 60 Mg Capsule.Dr) 120 mg PO DAILY [facility] Last Admin: 11/06/24 08:37 Dose: 120 mg Famotidine (Famotidine 20 Mg Tablet) 20 mg PO DAILY PRN PRN Reason: GERD Last Admin: 11/05/24 08:52 Dose: 20 mg Fluticasone/Umeclidinium/Vilanterol (Fluticasone/Umeclidinium/Vilanterol 100/62.5/25 Blst.W.Dev) 1 puff INHALE RDAILY [facility] Last Admin: 11/06/24 08:40 Dose: 1 puff Gabapentin (Gabapentin 300 Mg Capsule) 300 mg PO TID [facility] Last Admin: 11/06/24 08:39 Dose: 300 mg Hydrochlorothiazide (Hydrochlorothiazide 25 Mg Tablet) 25 mg PO DAILY [facility]; Protocol Last Admin: 11/06/24 08:38 Dose: 25 mg Hydroxyzine HCl (Hydroxyzine Hcl 25 Mg Tablet) 25 mg PO Q6H PRN PRN Reason: mild anxiety Last Admin: 11/05/24 15:49 Dose: 25 mg Ibuprofen (Ibuprofen 600 Mg Tablet) 600 mg PO Q8H PRN PRN Reason: Pain, Moderate(Pain Scale 4-6) Last Admin: 11/06/24 09:03 Dose: 600 mg Lidocaine (Lidocaine 4 % Patch Adh..Patch) 1 patch TRANSDERMA DAILY PRN; Protocol PRN Reason: left sided sciatica Last Admin: 11/06/24 08:45 Dose: 1 patch Magnesium Hydroxide (Milk Of Magnesia 30 Ml Oral.Susp) 30 ml PO DAILY PRN PRN Reason: Constipation Last Admin: 11/06/24 09:05 Dose: 30 ml Melatonin (Melatonin 3 Mg Tablet) 3 mg PO BEDTIME [facility] Last Admin: 11/05/24 20:33 Dose: 3 mg Metformin HCl (Metformin Hcl Er 500 Mg Tab.Er.24h) 500 mg PO BID [facility] Last Admin: 11/06/24 08:39 Dose: 500 mg Methadone HCl (Methadone Hcl 20 Mg/2 Ml Oral.Conc) 140 mg PO DAILY@0800 [facility] Last Admin: 11/06/24 08:04 Dose: 140 mg Multi-Ingred Cream/Lotion/Oil/Oint (Mineral Oil/Petrolatum,White 106 Gm Tube) 1 appl TOPICAL BID [facility]ARY[facility]; Protocol Last Admin: 11/06/24 08:42 Dose: 1 appl Nicotine (Nicotine 21 Mg Patch.Td24) 21 mg TRANSDERMA DAILY [facility] Last Admin: 11/06/24 08:43 Dose: 21 mg Nicotine Polacrilex (Nicotine Polacrilex Lozenge 4 Mg Lozenge) 4 mg BUCCAL Q2H PRN PRN Reason: Nicotine Cravings Last Admin: 11/06/24 09:04 Dose: 4 mg Pt Owned Med ( Trulicity 1.5mg / 0. 5ml) 1 each SUBCUT Th@0900 [facility] Last Admin: 11/02/24 16:55 Dose: 1 each Nystatin (Nystatin Cream 15 Gm Tube) 1 appl TOPICAL BID PRN; Protocol PRN Reason: Rash Last Admin: 11/06/24 08:42 Dose: 1 appl Olanzapine (Olanzapine 7.5 Mg Tablet) 7.5 mg PO BEDTIME [facility] Last Admin: 11/05/24 20:34 Dose: 7.5 mg Omeprazole (Omeprazole 40 Mg Capsule.Dr) 40 mg PO BID@0630,1630 [facility] Last Admin: 11/06/24 06:49 Dose: 40 mg Prazosin HCl (Prazosin Hcl 1 Mg Capsule) 2 mg PO BEDTIME [facility]ARYLU; Protocol Last Admin: 11/05/24 20:34 Dose: 2 mg Trazodone HCl (Trazodone Hcl 50 Mg Tablet) 50 mg PO BEDTIME MRX1 PRN PRN Reason: Insomnia Last Admin: 11/05/24 20:34 Dose: 50 mg Triamcinolone Acetonide (Triamcinolone Acet 0.1 % Cream 15 Gm Tube) 1 appl TOPICAL BID [facility]ARYLU; Protocol Last Admin: 11/06/24 08:42 Dose: 1 appl Valsartan (Valsartan 80 Mg Tablet) 80 mg PO DAILY [facility] Last Admin: 11/06/24 08:38 Dose: 80 mg Vitamin D (Cholecalciferol (Vitamin D3) 25 Mcg Tablet) 25 mcg PO DAILY [facility] Last Admin: 11/06/24 08:37 Dose: 25 mcg Allergies Allergies Allergy/AdvReac Type Severity Reaction Status Date / Time latex [LATEX] Allergy Unknown UNKNOWN Verified 02/09/21 03:06 peanut Allergy Unknown unknown Verified 11/01/24 20:16 From [facility] Allergy Unknown UNKNOWN Uncoded 02/09/21 03:06 Assessment & Plan Assessment & Plan (1) MDD (major depressive disorder), recurrent, severe, with psychosis: Status: Acute Code(s): F33.3 - Major depressive disorder, recurrent, severe with psychotic symptoms (2) PTSD (post-traumatic stress disorder): Status: Acute Code(s): F43.10 - Post-traumatic stress disorder, unspecified (3) Opioid use disorder: Status: Acute Code(s): F11.99 - Opioid use, unspecified with unspecified opioid-induced disorder (4) Cocaine abuse: Status: Acute Code(s): F14.10 - Cocaine abuse, uncomplicated (5) Polysubstance use disorder: Status: Acute Code(s): F19.90 - Other psychoactive substance use, unspecified, uncomplicated (6) History of HIV or AIDS: Status: Acute (7) Homeless: Status: Acute Code(s): Z59.00 - Homelessness unspecified Plan Hospital course: 10/23 Decrease chlorpromaxine to 25 mg qid prn Decrease olanzapine to 20 mg HS Decrease Benztropine to 0.5 mg bid 10/24 shared recent hx and pt reports he has been off medications for 3 weeks following relapse after 15-16 months of sobriety. Thinks relapse maybe partly due to the one year anniversary of his girlfriends . While sober, on Gabapentin, Cymbalta, trazodone, pt mood good, though anxiety/panic remained. Currently, still very depressed; says SI thoughts come and go, which are still lingering; some he can shrug off. AH less now. -Agreed to get back on Gabapentin which he used for nerve pain, but also helped with anxiety -discussed dx since he carries bipolar dx; However, pt says longest manic episode lasts only a day at most and usually only a couple of hours -shared about family relationships -talked about growing up; HS Impression:will change dx to MDD with pschotic features (he agrees with change in dx; will leave bipolar as rule out, however from reporting does not meet criteria). remains depressed but only just back on meds. 10/25 still very depressed; forcing self to go to groups and says almost panicked, but went out of group for a bit, calmed down and then returned. Reviewed options and pt agrees to try Wellbutrin XR 150mg for depression 10/26 pt reports he's feeling very depressed today, but does not know why; agrees to increase wellbutrin 10/27 continue tx regimen 10/28 reports mood is alright and is slowly getting a little better, out of room more, easier to push self to do ADL's; thus will leave wellbutrin as is for now -nightmares returned for past 2 days, which do during times of depression. Discussed Prazosin and how it can cause lightheadedness/dizziness... agreed to try it anyway since nightmare are bothersome 10/29 patient reports he is starting to feel little better; nightmares less intense; continue current regimen 10/30 Patient remains overall doing better, mood is better and would like to leave Wellbutrin as it is. However he continues to have nightmares from childhood trauma. Patient shared a little about history of trauma, that he has never talked about it before or processed it, finding it hard to trust people. Discussed the role of therapy and how it can help and patient said he very much feels the need to engage with a therapist. Given nightmares patient agreed to increase prazosin. -Discussed last night's bout of confusion where he was unclear where his room was and accidentally got into his roommate's bed (which was empty) to sleep; he does not remember much of it and says he has been told that he sleep walks. Patient currently presents organized in speech behavior -have discussed substance abuse treatment and patient will remain on methadone; looking to go to a substance abuse program 10/31 starting BuSpar; will titrate Patient remains in good behavioral and impulse control inappropriate with peers and staff. He is engaged in treatment, attending groups and forthcoming in 1 1 sessions. Patient is stable on current medication regimen 11/01 pt remains very anxious; agrees to increase in buspar which is tolerated; he asks for increase in thorazine as well. Got challenging news about his brothers dx of cancer, but handling news well. -c/o trouble swallowing; speech eval ordered barium swallow 11/02 Patient overall feels better. Mood is better and even feels that his anxiety is improved. Patient is pleased with medication regimen and would like to continue with it. Very much hoping to get into a program. He remains engaged in treatment. -Patient got a little dizzy after standing up quickly and sad himself down. Orthostatics checked and patient was found to be positive for orthostatic hypotension. Education provided 11/03 Pt sustained a fall. He appears to be having absence seizure activity Hold wellbutrin, chlorpromazine EKG, EEG, CBCD, CMP Pt seen by [facility], he will have IVF Speech recommends OP BAS Sleep study also is recommended Continue to monitor. 11/04 Add Cepacol for sore throat. D/C IV line. 5 minutes check. Rest the same. 11/05 start Thorazine 10 mg PO TID. Ibuprofen 400 mg p.o. q.6 hours p.r.n. pain 11/06 Patient reports that overall mood and anxiety are better. Does miss being on Wellbutrin but it is being held till after EEG. Patient was accepted to [facility] but declined saying he had been there before and found the atmosphere counter therapeutic; he is hoping to get into 1 of the other 2 programs applied to but if not he understands and agrees that he will just work on sobriety on his own in the outpatient world. Otherwise sleeping and eating well. No dizzy spells Over the weekend: -patient diagnosed with pneumonia following chest x-ray and started on antibiotic -some concern for absence seizures? However given patient's reporting to this tag writer seems much less likely. Patient going for EEG today. On the other hand he was found to be dehydrated with elevated creatinine and benefited from IV fluids -currently Wellbutrin being held out of an abundance for caution as it can very minimally lower the seizure threshold; will hold off restarting until EEG results Pt remains in good behavioral and impulse control Pt is stable on current medication regimen PLAN: Admit, 15 minute checks barium swallow (as outpt ?) Increase to BuSpar 10 mg t.i.d.; will titrate Continue prazosin 2 mg qhs for nightmares continue Cymbalta 120mg Increase to Wellbutrin XR 300mg for depression Continue Gabapentin 300mg tid (was on before and helped w/ neuropathic pain and anxiety) Continue metformin 500mg BID (will consider whether to titrate to 1000mg bid his home dose) trulicity weekly (he missed last week) clonidine0.1mg qhs lowered zyprexa to 7.5mg; pt denies psychotic symptoms other than echoes, distant voice that only occur when depressed Lidocaine patch for sciatica Triamcinolone cream-underarm rash Chlorpromazine trial prn (pt reports very helpful by hx for sx mgt) Decrease chlorpromaxine to 25 mg qid prn Decrease olanzapine to 20 mg HS Decrease Benztropine to 0.5 mg bid Patient educated on: diagnosis, medication risk/benefits and therapeutic strategies Reason for continued inpatient stay Substantial Risk for: stable for discharge Time Spent With Patient Time: Total time managing care of this patient today ____ minutes.
[2024-11-06] MEDS: polyethylene glycoL 3350 17 GM POWD.PACK PO (11:16)
[2024-11-06] MEDS: Acetaminophen 325 MG TABLET 650 MG PO (11:21)
[2024-11-06] MEDS: hydrOXYzine HCL 25 MG TABLET PO ×2 (11:24→17:36)
[2024-11-06 19:46] VITALS: BP 111/81; PULSE 70; RESP 16; TEMP 36.4; O2SAT 97
[2024-11-06 20:19] LABS: Glucose, Whole Blood 100 mg/dL (60-115)
[2024-11-06 20:28] VITALS: BP 136/71
[2024-11-06 20:29] VITALS: BP 136/71
[2024-11-06] MEDS: OLANZapine 7.5 MG TABLET PO (20:29)
[2024-11-06] MEDS: Melatonin 3 MG TABLET PO (20:29)
[2024-11-06] MEDS: Prazosin HCL 1 MG CAPSULE 2 MG PO (20:29)
[2024-11-06] MEDS: traZODone HCL 50 MG TABLET PO (21:18)
[2024-11-07] MEDS: Amoxicillin/Potassium Clav 500 MG TABLET PO ×3 (05:11→20:33)
[2024-11-07] MEDS: methADONE HCl 20 MG/2 ML ORAL.CONC 140 MG PO (07:44)
[2024-11-07 08:08] VITALS: BP 108/75; PULSE 84; RESP 16; TEMP 36.5; O2SAT 93
[2024-11-07] MEDS: Nicotine 21 MG PATCH.TD24 TRANSDERMA (08:17)
[2024-11-07] MEDS: Fluticasone/Umeclidinium/Vilanterol 100/62.5/25 BLST.W.DEV 1 PUFF INHALE (08:17)
[2024-11-07] MEDS: busPIRone HCl 10 MG TABLET PO ×3 (08:18→20:31)
[2024-11-07] MEDS: chlorproMAZINE HCl 10 MG TABLET PO ×3 (08:18→20:32)
[2024-11-07] MEDS: Atorvastatin Calcium 80 MG TABLET PO (08:19)
[2024-11-07] MEDS: Sennosides/Docusate Sodium TABLET 1 TAB PO (08:19)
[2024-11-07] MEDS: Valsartan 80 MG TABLET PO (08:19)
[2024-11-07] MEDS: cloNIDine HCL 0.1 MG TABLET PO ×3 (08:19→20:32)
[2024-11-07] MEDS: Omeprazole 40 MG CAPSULE.DR PO ×2 (08:19→17:41)
[2024-11-07] MEDS: metFORMIN HCl ER 500 MG TAB.ER.24H PO ×2 (08:19→20:31)
[2024-11-07] MEDS: Bictegrav/Emtricit/Tenofov Ala TABLET 1 TAB PO (08:19)
[2024-11-07] MEDS: Gabapentin 300 MG CAPSULE PO ×3 (08:19→20:32)
[2024-11-07] MEDS: hydroCHLOROthiazide 25 MG TABLET PO (08:19)
[2024-11-07] MEDS: Cholecalciferol (Vitamin D3) 25 MCG TABLET PO (08:20)
[2024-11-07] MEDS: Aspirin 81 MG TAB.CHEW PO (08:20)
[2024-11-07] MEDS: Mineral Oil/Petrolatum,White 106 GM Tube 1 APPL TOPICAL (08:20)
[2024-11-07] MEDS: DULoxetine HCl 60 MG CAPSULE.DR 120 MG PO (08:20)
[2024-11-07 08:21] LABS: Glucose, Whole Blood 114 mg/dL (60-115)
[2024-11-07] MEDS: Triamcinolone Acet 0.1 % Cream 15 GM TUBE 1 APPL TOPICAL (08:21)
[2024-11-07] MEDS: Benztropine Mesylate 0.5 MG TABLET PO ×2 (08:23→20:33)
[2024-11-07] MEDS: Nicotine Polacrilex Lozenge 4 MG LOZENGE BUCCAL ×4 (08:26→20:45)
[2024-11-07] MEDS: buPROPion HCl XL 300 MG TAB.ER.24H PO (08:26)
--- NOTE | 2024-11-07 09:46 | HO.PSYCHPN ---
Subjective Subjective Date of Service: 11/07/24 Reason For Visit: Major depressive d/o PTSD Opioid Use Disorder Mode Interim History: Met with patient; discussed with team Patient reports that he continues to overall feel better and that depression and anxiety are well treated and not bothersome. Denies any SI. Discussed of EEG and patient reassured. Appreciates Wellbutrin being restarted. Mental Status Exam Mental Status Exam Narrative: Pt is alert and oriented; behavior is cooperative, calm, friendly, engaged and social in the milieu; patient is not in distress; dressed in casual l attire, with adequate hygiene and grooming; mood is described as good and affect congruent, more calm, brighter; eye contact adequate; Speech is at baseline, a little slowed and soft; no psychomotor retardation; thought process is organized and goal directed; Thought content is on treatment, aftercare plans; otherwise pertinent to relevant topics and without any delusional content, paranoid ideations or grandiosity; no SI; no HI; No AVH; There is no evidence of perceptual disturbance. Patients insight and judgment fair Diagnostics Vital Signs (24Hr): Vital Signs - 24 hr 11/06/24 19:46 11/06/24 20:28 11/06/24 20:29 Temperature 97.6 F Pulse Rate 70 Respiratory Rate 16 Blood Pressure 111/81 136/71 136/71 Pulse Oximetry 97 Oxygen Delivery Method Room Air 11/07/24 08:08 Temperature 97.7 F Pulse Rate 84 Respiratory Rate 16 Blood Pressure 108/75 Pulse Oximetry 93 Oxygen Delivery Method Room Air BMI result Body Mass Index 32.5 Labs 11/03/24 14:45 11/03/24 14:41 Labs: Laboratory Results - last 48 hr 11/05/24 11/06/24 11/07/24 20:41 20:13 08:06 POC Glucose 109 100 114 Imaging Radiology Impressions: ITS Impressions Head CT 11/03/24 15:11 IMPRESSION: 1. No acute intracranial abnormalities. No fractures. 2. Chronic changes as discussed. Electronically signed by: Benoit Powell MD 11/03/2024 04:12 PM [facility] Chest X-Ray 11/03/24 15:42 IMPRESSION: 1. Subtle patchy opacities both lung bases, and in the right mid and upper lung. Multifocal/atypical pneumonia is suspected. 2. There is no effusion or pneumothorax. Electronically signed by: Benoit Powell MD 11/03/2024 04:06 PM [facility] Medications Medications Current Medications Acetaminophen (Acetaminophen 325 Mg Tablet) 650 mg PO Q6H PRN PRN Reason: Headache/Pain, Scale 1-10 Last Admin: 11/06/24 11:21 Dose: 650 mg Al Hydroxide/Mg Hydroxide (Magnesium Hydrox/Alum Hydrox 30 Ml Oral.Susp) 30 ml PO Q6H PRN PRN Reason: Heartburn/Nausea Last Admin: 10/29/24 09:07 Dose: 30 ml Amoxicillin/Clavulanate Potassium (Amoxicillin/Potassium Clav 500 Mg Tablet) 500 mg PO Q8H [facility] Stop: 11/10/24 20:01 Last Admin: 11/07/24 05:11 Dose: 500 mg Aspirin (Aspirin 81 Mg Tab.Chew) 81 mg PO DAILY [facility] Last Admin: 11/07/24 08:20 Dose: 81 mg Atorvastatin Calcium (Atorvastatin Calcium 80 Mg Tablet) 80 mg PO DAILY [facility] Last Admin: 11/07/24 08:19 Dose: 80 mg Benzocaine (Throat Lozenge, Medicated Lozenge) 1 lozenge MUCOUS MEM Q2H PRN PRN Reason: Sore Throat Last Admin: 11/06/24 14:46 Dose: 1 lozenge Benztropine Mesylate (Benztropine Mesylate 0.5 Mg Tablet) 0.5 mg PO BID [facility] Last Admin: 11/07/24 08:23 Dose: 0.5 mg Bictegravir/Emtricitabine/Tenofovir (Bictegrav/Emtricit/Tenofov Ala Tablet) 1 tab PO DAILY [facility] Last Admin: 11/07/24 08:19 Dose: 1 tab Bupropion HCl (Bupropion Hcl Xl 300 Mg Tab.Er.24h) 300 mg PO DAILY [facility] Last Admin: 11/07/24 08:26 Dose: 300 mg Buspirone HCl (Buspirone Hcl 10 Mg Tablet) 10 mg PO TID [facility] Last Admin: 11/07/24 08:18 Dose: 10 mg Chlorpromazine HCl (Chlorpromazine Hcl 25 Mg Tablet) 50 mg PO QID PRN PRN Reason: anxiety-severe Last Admin: 11/03/24 10:45 Dose: 50 mg Chlorpromazine HCl (Chlorpromazine Hcl 10 Mg Tablet) 10 mg PO TID [facility] Last Admin: 11/07/24 08:18 Dose: 10 mg Clonidine HCl (Clonidine Hcl 0.1 Mg Tablet) 0.1 mg PO Q4H PRN; Protocol PRN Reason: moderate anxiety Last Admin: 11/05/24 15:49 Dose: 0.1 mg Clonidine HCl (Clonidine Hcl 0.1 Mg Tablet) 0.1 mg PO BID [facility]; Protocol Last Admin: 11/07/24 08:19 Dose: 0.1 mg Duloxetine HCl (Duloxetine Hcl 60 Mg Capsule.Dr) 120 mg PO DAILY [facility] Last Admin: 11/07/24 08:20 Dose: 120 mg Famotidine (Famotidine 20 Mg Tablet) 20 mg PO DAILY PRN PRN Reason: GERD Last Admin: 11/05/24 08:52 Dose: 20 mg Fluticasone/Umeclidinium/Vilanterol (Fluticasone/Umeclidinium/Vilanterol 100/62.5/25 Blst.W.Dev) 1 puff INHALE RDAILY [facility] Last Admin: 11/07/24 08:17 Dose: 1 puff Gabapentin (Gabapentin 300 Mg Capsule) 300 mg PO TID [facility] Last Admin: 11/07/24 08:19 Dose: 300 mg Hydrochlorothiazide (Hydrochlorothiazide 25 Mg Tablet) 25 mg PO DAILY [facility]; Protocol Last Admin: 11/07/24 08:19 Dose: 25 mg Hydroxyzine HCl (Hydroxyzine Hcl 25 Mg Tablet) 25 mg PO Q6H PRN PRN Reason: mild anxiety Last Admin: 11/06/24 17:36 Dose: 25 mg Ibuprofen (Ibuprofen 600 Mg Tablet) 600 mg PO Q8H PRN PRN Reason: Pain, Moderate(Pain Scale 4-6) Last Admin: 11/06/24 09:03 Dose: 600 mg Lidocaine (Lidocaine 4 % Patch Adh..Patch) 1 patch TRANSDERMA DAILY PRN; Protocol PRN Reason: left sided sciatica Last Admin: 11/06/24 08:45 Dose: 1 patch Magnesium Hydroxide (Milk Of Magnesia 30 Ml Oral.Susp) 30 ml PO DAILY PRN PRN Reason: Constipation Last Admin: 11/06/24 09:05 Dose: 30 ml Melatonin (Melatonin 3 Mg Tablet) 3 mg PO BEDTIME [facility] Last Admin: 11/06/24 20:29 Dose: 3 mg Metformin HCl (Metformin Hcl Er 500 Mg Tab.Er.24h) 500 mg PO BID [facility] Last Admin: 11/07/24 08:19 Dose: 500 mg Methadone HCl (Methadone Hcl 20 Mg/2 Ml Oral.Conc) 140 mg PO DAILY@0800 [facility] Last Admin: 11/07/24 07:44 Dose: 140 mg Multi-Ingred Cream/Lotion/Oil/Oint (Mineral Oil/Petrolatum,White 106 Gm Tube) 1 appl TOPICAL BID MARYLU; Protocol Last Admin: 11/07/24 08:20 Dose: 1 appl Nicotine (Nicotine 21 Mg Patch.Td24) 21 mg TRANSDERMA DAILY [facility] Last Admin: 11/07/24 08:17 Dose: 21 mg Nicotine Polacrilex (Nicotine Polacrilex Lozenge 4 Mg Lozenge) 4 mg BUCCAL Q2H PRN PRN Reason: Nicotine Cravings Last Admin: 11/07/24 08:26 Dose: 4 mg Pt Owned Med ( Trulicity 1.5mg / 0. 5ml) 1 each SUBCUT Th@0900 [facility] Last Admin: 11/02/24 16:55 Dose: 1 each Nystatin (Nystatin Cream 15 Gm Tube) 1 appl TOPICAL BID PRN; Protocol PRN Reason: Rash Last Admin: 11/06/24 08:42 Dose: 1 appl Olanzapine (Olanzapine 7.5 Mg Tablet) 7.5 mg PO BEDTIME [facility] Last Admin: 11/06/24 20:29 Dose: 7.5 mg Omeprazole (Omeprazole 40 Mg Capsule.Dr) 40 mg PO BID@0630,1630 [facility] Last Admin: 11/07/24 08:19 Dose: 40 mg Polyethylene Glycol (Polyethylene Glycol 3350 17 Gm Powd.Pack) 17 gm PO DAILY PRN PRN Reason: continued Constipation Prazosin HCl (Prazosin Hcl 1 Mg Capsule) 2 mg PO BEDTIME [facility]; Protocol Last Admin: 11/06/24 20:29 Dose: 2 mg Senna/Docusate Sodium (Sennosides/Docusate Sodium Tablet) 1 tab PO DAILY [facility] Last Admin: 11/07/24 08:19 Dose: 1 tab Trazodone HCl (Trazodone Hcl 50 Mg Tablet) 50 mg PO BEDTIME MRX1 PRN PRN Reason: Insomnia Last Admin: 11/06/24 21:18 Dose: 50 mg Triamcinolone Acetonide (Triamcinolone Acet 0.1 % Cream 15 Gm Tube) 1 appl TOPICAL BID [facility]; Protocol Last Admin: 11/07/24 08:21 Dose: 1 appl Valsartan (Valsartan 80 Mg Tablet) 80 mg PO DAILY [facility] Last Admin: 11/07/24 08:19 Dose: 80 mg Vitamin D (Cholecalciferol (Vitamin D3) 25 Mcg Tablet) 25 mcg PO DAILY [facility] Last Admin: 11/07/24 08:20 Dose: 25 mcg Allergies Allergies Allergy/AdvReac Type Severity Reaction Status Date / Time latex [LATEX] Allergy Unknown UNKNOWN Verified 02/09/21 03:06 peanut Allergy Unknown unknown Verified 11/01/24 20:16 From [facility] Allergy Unknown UNKNOWN Uncoded 02/09/21 03:06 Assessment & Plan Assessment & Plan (1) MDD (major depressive disorder), recurrent, severe, with psychosis: Status: Acute Code(s): F33.3 - Major depressive disorder, recurrent, severe with psychotic symptoms (2) PTSD (post-traumatic stress disorder): Status: Acute Code(s): F43.10 - Post-traumatic stress disorder, unspecified (3) Opioid use disorder: Status: Acute Code(s): F11.99 - Opioid use, unspecified with unspecified opioid-induced disorder (4) Cocaine abuse: Status: Acute Code(s): F14.10 - Cocaine abuse, uncomplicated (5) Polysubstance use disorder: Status: Acute Code(s): F19.90 - Other psychoactive substance use, unspecified, uncomplicated (6) History of HIV or AIDS: Status: Acute (7) Homeless: Status: Acute Code(s): Z59.00 - Homelessness unspecified Plan Hospital course: 10/23 Decrease chlorpromaxine to 25 mg qid prn Decrease olanzapine to 20 mg HS Decrease Benztropine to 0.5 mg bid 10/24 shared recent hx and pt reports he has been off medications for 3 weeks following relapse after 15-16 months of sobriety. Thinks relapse maybe partly due to the one year anniversary of his girlfriends . While sober, on Gabapentin, Cymbalta, trazodone, pt mood good, though anxiety/panic remained. Currently, still very depressed; says SI thoughts come and go, which are still lingering; some he can shrug off. AH less now. -Agreed to get back on Gabapentin which he used for nerve pain, but also helped with anxiety -discussed dx since he carries bipolar dx; However, pt says longest manic episode lasts only a day at most and usually only a couple of hours -shared about family relationships -talked about growing up; HS Impression:will change dx to MDD with pschotic features (he agrees with change in dx; will leave bipolar as rule out, however from reporting does not meet criteria). remains depressed but only just back on meds. 10/25 still very depressed; forcing self to go to groups and says almost panicked, but went out of group for a bit, calmed down and then returned. Reviewed options and pt agrees to try Wellbutrin XR 150mg for depression 10/26 pt reports he's feeling very depressed today, but does not know why; agrees to increase wellbutrin 10/27 continue tx regimen 10/28 reports mood is alright and is slowly getting a little better, out of room more, easier to push self to do ADL's; thus will leave wellbutrin as is for now -nightmares returned for past 2 days, which do during times of depression. Discussed Prazosin and how it can cause lightheadedness/dizziness... agreed to try it anyway since nightmare are bothersome 10/29 patient reports he is starting to feel little better; nightmares less intense; continue current regimen 10/30 Patient remains overall doing better, mood is better and would like to leave Wellbutrin as it is. However he continues to have nightmares from childhood trauma. Patient shared a little about history of trauma, that he has never talked about it before or processed it, finding it hard to trust people. Discussed the role of therapy and how it can help and patient said he very much feels the need to engage with a therapist. Given nightmares patient agreed to increase prazosin. -Discussed last night's bout of confusion where he was unclear where his room was and accidentally got into his roommate's bed (which was empty) to sleep; he does not remember much of it and says he has been told that he sleep walks. Patient currently presents organized in speech behavior -have discussed substance abuse treatment and patient will remain on methadone; looking to go to a substance abuse program 10/31 starting BuSpar; will titrate Patient remains in good behavioral and impulse control inappropriate with peers and staff. He is engaged in treatment, attending groups and forthcoming in 1 1 sessions. Patient is stable on current medication regimen 11/01 pt remains very anxious; agrees to increase in buspar which is tolerated; he asks for increase in thorazine as well. Got challenging news about his brothers dx of cancer, but handling news well. -c/o trouble swallowing; speech eval ordered barium swallow 11/02 Patient overall feels better. Mood is better and even feels that his anxiety is improved. Patient is pleased with medication regimen and would like to continue with it. Very much hoping to get into a program. He remains engaged in treatment. -Patient got a little dizzy after standing up quickly and sad himself down. Orthostatics checked and patient was found to be positive for orthostatic hypotension. Education provided 11/03 Pt sustained a fall. He appears to be having absence seizure activity Hold wellbutrin, chlorpromazine EKG, EEG, CBCD, CMP Pt seen by [facility], he will have IVF Speech recommends OP BAS Sleep study also is recommended Continue to monitor. 11/04 Add Cepacol for sore throat. D/C IV line. 5 minutes check. Rest the same. 11/05 start Thorazine 10 mg PO TID. Ibuprofen 400 mg p.o. q.6 hours p.r.n. pain 11/06 Patient reports that overall mood and anxiety are better. Does miss being on Wellbutrin but it is being held till after EEG. Patient was accepted to [facility] but declined saying he had been there before and found the atmosphere counter therapeutic; he is hoping to get into 1 of the other 2 programs applied to but if not he understands and agrees that he will just work on sobriety on his own in the outpatient world. Otherwise sleeping and eating well. No dizzy spells Over the weekend: -patient diagnosed with pneumonia following chest x-ray and started on antibiotic -some concern for absence seizures? However given patient's reporting to this proposal lead writer seems much less likely. Patient going for EEG today. On the other hand he was found to be dehydrated with elevated creatinine and benefited from IV fluids -currently Wellbutrin being held out of an abundance for caution as it can very minimally lower the seizure threshold; will hold off restarting until EEG results EEG IMPRESSION (11/03): Generalized slowing with no evidence of seizure disorder. / Patient reports that he continues to overall feel better and that depression and anxiety are well treated and not bothersome. Denies any SI. Discussed of EEG and patient reassured. Appreciates Wellbutrin being restarted. Pt remains in good behavioral and impulse control Pt is stable on current medication regimen PLAN: Admit, 15 minute checks barium swallow (as outpt ?) Continue BuSpar 10 mg t.i.d.; will titrate Continue prazosin 2 mg qhs for nightmares continue Cymbalta 120mg Increase to Wellbutrin XR 300mg for depression Continue Gabapentin 300mg tid (was on before and helped w/ neuropathic pain and anxiety) Continue metformin 500mg BID (will consider whether to titrate to 1000mg bid his home dose) trulicity weekly (he missed last week) clonidine0.1mg qhs lowered zyprexa to 7.5mg; pt denies psychotic symptoms other than echoes, distant voice that only occur when depressed Lidocaine patch for sciatica Triamcinolone cream-underarm rash Chlorpromazine trial prn (pt reports very helpful by hx for sx mgt) Decrease chlorpromaxine to 25 mg qid prn Decrease olanzapine to 20 mg HS Decrease Benztropine to 0.5 mg bid Patient educated on: diagnosis, medication risk/benefits and therapeutic strategies Patient educated on: diagnosis, medication risk/benefits and medical condition Informed Consent: understands Reason for continued inpatient stay Substantial Risk for: stable for discharge Time Spent With Patient Time: Total time managing care of this patient today ____ minutes.
[2024-11-07] MEDS: Throat Lozenge, Medicated LOZENGE 1 LOZENGE MUCOUS MEM (10:32)
[2024-11-07 12:42] LABS: Glucose, Whole Blood 130 mg/dL (60-115)
[2024-11-07 17:46] VITALS: BP 109/62
[2024-11-07 19:51] VITALS: PULSE 68; TEMP 36.7; O2SAT 98
[2024-11-07 20:28] LABS: Glucose, Whole Blood 82 mg/dL (60-115)
[2024-11-07 20:30] VITALS: BP 94/60
[2024-11-07] MEDS: Prazosin HCL 1 MG CAPSULE 2 MG PO (20:32)
[2024-11-07] MEDS: OLANZapine 7.5 MG TABLET PO (20:32)
[2024-11-07] MEDS: Melatonin 3 MG TABLET PO (20:33)
[2024-11-07] MEDS: traZODone HCL 50 MG TABLET PO (20:34)
[2024-11-08] MEDS: Amoxicillin/Potassium Clav 500 MG TABLET PO ×3 (04:31→20:16)
[2024-11-08] MEDS: Omeprazole 40 MG CAPSULE.DR PO ×2 (07:11→16:22)
[2024-11-08] MEDS: methADONE HCl 20 MG/2 ML ORAL.CONC 140 MG PO (07:43)
[2024-11-08 07:59] LABS: Glucose, Whole Blood 110 mg/dL (60-115)
[2024-11-08] MEDS: Fluticasone/Umeclidinium/Vilanterol 100/62.5/25 BLST.W.DEV 1 PUFF INHALE (08:01)
[2024-11-08] MEDS: Mineral Oil/Petrolatum,White 106 GM Tube 1 APPL TOPICAL (08:01)
[2024-11-08] MEDS: Triamcinolone Acet 0.1 % Cream 15 GM TUBE 1 APPL TOPICAL (08:01)
[2024-11-08] MEDS: Nicotine 21 MG PATCH.TD24 TRANSDERMA (08:02)
[2024-11-08 08:03] VITALS: BP 112/74
[2024-11-08] MEDS: buPROPion HCl XL 300 MG TAB.ER.24H PO (08:03)
[2024-11-08] MEDS: Bictegrav/Emtricit/Tenofov Ala TABLET 1 TAB PO (08:03)
[2024-11-08] MEDS: Gabapentin 300 MG CAPSULE PO ×3 (08:03→20:16)
[2024-11-08] MEDS: Cholecalciferol (Vitamin D3) 25 MCG TABLET PO (08:03)
[2024-11-08] MEDS: Valsartan 80 MG TABLET PO (08:03)
[2024-11-08] MEDS: Benztropine Mesylate 0.5 MG TABLET PO ×2 (08:03→20:17)
[2024-11-08] MEDS: metFORMIN HCl ER 500 MG TAB.ER.24H PO ×2 (08:03→20:17)
[2024-11-08] MEDS: chlorproMAZINE HCl 10 MG TABLET PO ×3 (08:03→20:16)
[2024-11-08 08:04] VITALS: BP 112/74
[2024-11-08] MEDS: DULoxetine HCl 60 MG CAPSULE.DR 120 MG PO (08:04)
[2024-11-08] MEDS: cloNIDine HCL 0.1 MG TABLET PO ×2 (08:04→20:17)
[2024-11-08] MEDS: busPIRone HCl 10 MG TABLET PO ×3 (08:04→20:17)
[2024-11-08] MEDS: Aspirin 81 MG TAB.CHEW PO (08:04)
[2024-11-08] MEDS: Nicotine Polacrilex Lozenge 4 MG LOZENGE BUCCAL ×4 (08:04→18:59)
[2024-11-08] MEDS: Sennosides/Docusate Sodium TABLET 1 TAB PO (08:04)
[2024-11-08] MEDS: hydroCHLOROthiazide 25 MG TABLET PO (08:04)
[2024-11-08] MEDS: Atorvastatin Calcium 80 MG TABLET PO (08:04)
[2024-11-08 09:03] LABS: Creatinine Clr Calc Pharmacy 88.8; Estimated Glomerular Filt Rate > 60
--- NOTE | 2024-11-08 10:13 | P.PNPSI_ITS ---
Subjective Subjective Date of Service: 11/08/24 Reason For Visit: Major depressive d/o PTSD Opioid Use Disorder Mode Interim History: Met with patient; discussed with team Patient reports continues to feel with good mood, and less anxiety. Focused on aftercare plans. Patient however reports that he has hardly urinated since yesterday morning; says it happens every few months and resolves on its own after 1-2 days. Mental Status Exam Mental Status Exam Narrative: Pt is alert and oriented; behavior is cooperative, friendly and calm; patient is not in distress; dressed in casual attire with adequate hygiene and grooming; mood is described as good and affect congruent; eye contact appropriate; Speech is normal rate, volume and prosody and not pressured; no psychomotor agitation/retardation present; thought process is organized and goal directed; Thought content is on tx, aftercare; otherwise pertinent to relevant topics and without any delusional content, paranoid ideations or grandiosity; denies any SI/HI. There is no evidence of perceptual disturbance. Patients insight and judgment fair Diagnostics Vital Signs (24Hr): Vital Signs - 24 hr 11/07/24 17:46 11/07/24 19:51 11/07/24 20:30 Temperature 98.1 F Pulse Rate 68 Blood Pressure 109/62 94/60 Pulse Oximetry 98 Oxygen Delivery Method Room Air 11/08/24 08:03 11/08/24 08:04 11/08/24 08:04 Temperature Pulse Rate Blood Pressure 112/74 112/74 112/74 Pulse Oximetry Oxygen Delivery Method BMI result Body Mass Index 32.5 Labs 11/03/24 14:45 11/08/24 08:15 Labs: Laboratory Results - last 48 hr 11/06/24 11/07/24 11/07/24 20:13 08:06 12:33 Creatinine Estim Creat Clear Calc Estimated GFR POC Glucose 100 114 130 H 11/07/24 11/08/24 11/08/24 20:24 07:49 08:15 Creatinine 1.11 Estim Creat Clear Calc 88.8 Estimated GFR > 60 POC Glucose 82 110 Imaging Radiology Impressions: ITS Impressions Head CT 11/03/24 15:11 IMPRESSION: 1. No acute intracranial abnormalities. No fractures. 2. Chronic changes as discussed. Electronically signed by: Benoit Powell MD 11/03/2024 04:[address] [facility] Chest X-Ray 11/03/24 15:42 IMPRESSION: 1. Subtle patchy opacities both lung bases, and in the right mid and upper lung. Multifocal/atypical pneumonia is suspected. 2. There is no effusion or pneumothorax. Electronically signed by: Benoit Powell MD 11/03/2024 04:06 PM EST Medications Medications Current Medications Acetaminophen (Acetaminophen 325 Mg Tablet) 650 mg PO Q6H PRN PRN Reason: Headache/Pain, Scale 1-10 Last Admin: 11/06/24 11:21 Dose: 650 mg Al Hydroxide/Mg Hydroxide (Magnesium Hydrox/Alum Hydrox 30 Ml Oral.Susp) 30 ml PO Q6H PRN PRN Reason: Heartburn/Nausea Last Admin: 10/29/24 09:07 Dose: 30 ml Amoxicillin/Clavulanate Potassium (Amoxicillin/Potassium Clav 500 Mg Tablet) 500 mg PO Q8H [facility] Stop: 11/10/24 20:01 Last Admin: 11/08/24 04:31 Dose: 500 mg Aspirin (Aspirin 81 Mg Tab.Chew) 81 mg PO DAILY [facility] Last Admin: 11/08/24 08:04 Dose: 81 mg Atorvastatin Calcium (Atorvastatin Calcium 80 Mg Tablet) 80 mg PO DAILY [facility] Last Admin: 11/08/24 08:04 Dose: 80 mg Benzocaine (Throat Lozenge, Medicated Lozenge) 1 lozenge MUCOUS MEM Q2H PRN PRN Reason: Sore Throat Last Admin: 11/07/24 10:32 Dose: 1 lozenge Benztropine Mesylate (Benztropine Mesylate 0.5 Mg Tablet) 0.5 mg PO BID [facility] Last Admin: 11/08/24 08:03 Dose: 0.5 mg Bictegravir/Emtricitabine/Tenofovir (Bictegrav/Emtricit/Tenofov Ala Tablet) 1 tab PO DAILY [facility] Last Admin: 11/08/24 08:03 Dose: 1 tab Bupropion HCl (Bupropion Hcl Xl 300 Mg Tab.Er.24h) 300 mg PO DAILY [facility] Last Admin: 11/08/24 08:03 Dose: 300 mg Buspirone HCl (Buspirone Hcl 10 Mg Tablet) 10 mg PO TID [facility] Last Admin: 11/08/24 08:04 Dose: 10 mg Chlorpromazine HCl (Chlorpromazine Hcl 25 Mg Tablet) 50 mg PO QID PRN PRN Reason: anxiety-severe Last Admin: 11/03/24 10:45 Dose: 50 mg Chlorpromazine HCl (Chlorpromazine Hcl 10 Mg Tablet) 10 mg PO TID [facility] Last Admin: 11/08/24 08:03 Dose: 10 mg Clonidine HCl (Clonidine Hcl 0.1 Mg Tablet) 0.1 mg PO Q4H PRN; Protocol PRN Reason: moderate anxiety Last Admin: 11/07/24 17:46 Dose: 0.1 mg Clonidine HCl (Clonidine Hcl 0.1 Mg Tablet) 0.1 mg PO BID [facility]; Protocol Last Admin: 11/08/24 08:04 Dose: 0.1 mg Duloxetine HCl (Duloxetine Hcl 60 Mg Capsule.Dr) 120 mg PO DAILY [facility] Last Admin: 11/08/24 08:04 Dose: 120 mg Famotidine (Famotidine 20 Mg Tablet) 20 mg PO DAILY PRN PRN Reason: GERD Last Admin: 11/05/24 08:52 Dose: 20 mg Fluticasone/Umeclidinium/Vilanterol (Fluticasone/Umeclidinium/Vilanterol 100/62.5/25 Blst.W.Dev) 1 puff INHALE RDAILY [facility] Last Admin: 11/08/24 08:01 Dose: 1 puff Gabapentin (Gabapentin 300 Mg Capsule) 300 mg PO TID [facility] Last Admin: 11/08/24 08:03 Dose: 300 mg Hydrochlorothiazide (Hydrochlorothiazide 25 Mg Tablet) 25 mg PO DAILY [facility]; Protocol Last Admin: 11/08/24 08:04 Dose: 25 mg Hydroxyzine HCl (Hydroxyzine Hcl 25 Mg Tablet) 25 mg PO Q6H PRN PRN Reason: mild anxiety Last Admin: 11/06/24 17:36 Dose: 25 mg Ibuprofen (Ibuprofen 600 Mg Tablet) 600 mg PO Q8H PRN PRN Reason: Pain, Moderate(Pain Scale 4-6) Last Admin: 11/06/24 09:03 Dose: 600 mg Lidocaine (Lidocaine 4 % Patch Adh..Patch) 1 patch TRANSDERMA DAILY PRN; Protocol PRN Reason: left sided sciatica Last Admin: 11/06/24 08:45 Dose: 1 patch Magnesium Hydroxide (Milk Of Magnesia 30 Ml Oral.Susp) 30 ml PO DAILY PRN PRN Reason: Constipation Last Admin: 11/06/24 09:05 Dose: 30 ml Melatonin (Melatonin 3 Mg Tablet) 3 mg PO BEDTIME [facility] Last Admin: 11/07/24 20:33 Dose: 3 mg Metformin HCl (Metformin Hcl Er 500 Mg Tab.Er.24h) 500 mg PO BID [facility] Last Admin: 11/08/24 08:03 Dose: 500 mg Methadone HCl (Methadone Hcl 20 Mg/2 Ml Oral.Conc) 140 mg PO DAILY@0800 [facility] Last Admin: 11/08/24 07:43 Dose: 140 mg Multi-Ingred Cream/Lotion/Oil/Oint (Mineral Oil/Petrolatum,White 106 Gm Tube) 1 appl TOPICAL BID [facility]; Protocol Last Admin: 11/08/24 08:01 Dose: 1 appl Nicotine (Nicotine 21 Mg Patch.Td24) 21 mg TRANSDERMA DAILY [facility] Last Admin: 11/08/24 08:02 Dose: 21 mg Nicotine Polacrilex (Nicotine Polacrilex Lozenge 4 Mg Lozenge) 4 mg BUCCAL Q2H PRN PRN Reason: Nicotine Cravings Last Admin: 11/08/24 08:04 Dose: 4 mg Pt Owned Med ( Trulicity 1.5mg / 0. 5ml) 1 each SUBCUT Th@0900 [facility] Last Admin: 11/02/24 16:55 Dose: 1 each Nystatin (Nystatin Cream 15 Gm Tube) 1 appl TOPICAL BID PRN; Protocol PRN Reason: Rash Last Admin: 11/06/24 08:42 Dose: 1 appl Olanzapine (Olanzapine 7.5 Mg Tablet) 7.5 mg PO BEDTIME [facility] Last Admin: 11/07/24 20:32 Dose: 7.5 mg Omeprazole (Omeprazole 40 Mg Capsule.Dr) 40 mg PO BID@0630,1630 [facility] Last Admin: 11/08/24 07:11 Dose: 40 mg Polyethylene Glycol (Polyethylene Glycol 3350 17 Gm Powd.Pack) 17 gm PO DAILY PRN PRN Reason: continued Constipation Prazosin HCl (Prazosin Hcl 1 Mg Capsule) 2 mg PO BEDTIME [facility]; Protocol Last Admin: 11/07/24 20:32 Dose: 2 mg Senna/Docusate Sodium (Sennosides/Docusate Sodium Tablet) 1 tab PO DAILY [facility] Last Admin: 11/08/24 08:04 Dose: 1 tab Trazodone HCl (Trazodone Hcl 50 Mg Tablet) 50 mg PO BEDTIME [facility] PRN PRN Reason: Insomnia Last Admin: 11/07/24 20:34 Dose: 50 mg Triamcinolone Acetonide (Triamcinolone Acet 0.1 % Cream 15 Gm Tube) 1 appl TOPICAL BID [facility]; Protocol Last Admin: 11/08/24 08:01 Dose: 1 appl Valsartan (Valsartan 80 Mg Tablet) 80 mg PO DAILY [facility] Last Admin: 11/08/24 08:03 Dose: 80 mg Vitamin D (Cholecalciferol (Vitamin D3) 25 Mcg Tablet) 25 mcg PO DAILY [facility] Last Admin: 11/08/24 08:03 Dose: 25 mcg Allergies Allergies Allergy/AdvReac Type Severity Reaction Status Date / Time latex [LATEX] Allergy Unknown UNKNOWN Verified 02/09/21 03:06 peanut Allergy Unknown unknown Verified 11/01/24 20:16 From [facility] Allergy Unknown UNKNOWN Uncoded 02/09/21 03:06 Assessment & Plan Assessment & Plan (1) MDD (major depressive disorder), recurrent, severe, with psychosis: Status: Acute Code(s): F33.3 - Major depressive disorder, recurrent, severe with psychotic symptoms (2) PTSD (post-traumatic stress disorder): Status: Acute Code(s): F43.10 - Post-traumatic stress disorder, unspecified (3) Opioid use disorder: Status: Acute Code(s): F11.99 - Opioid use, unspecified with unspecified opioid-induced disorder (4) Cocaine abuse: Status: Acute Code(s): F14.10 - Cocaine abuse, uncomplicated (5) Polysubstance use disorder: Status: Acute Code(s): F19.90 - Other psychoactive substance use, unspecified, uncomplicated (6) History of HIV or AIDS: Status: Acute (7) Homeless: Status: Acute Code(s): Z59.00 - Homelessness unspecified Plan Hospital course: 10/23 Decrease chlorpromaxine to 25 mg qid prn Decrease olanzapine to 20 mg HS Decrease Benztropine to 0.5 mg bid 10/24 shared recent hx and pt reports he has been off medications for 3 weeks following relapse after 15-16 months of sobriety. Thinks relapse maybe partly due to the one year anniversary of his girlfriends . While sober, on Gabapentin, Cymbalta, trazodone, pt mood good, though anxiety/panic remained. Currently, still very depressed; says SI thoughts come and go, which are still lingering; some he can shrug off. AH less now. -Agreed to get back on Gabapentin which he used for nerve pain, but also helped with anxiety -discussed dx since he carries bipolar dx; However, pt says longest manic episode lasts only a day at most and usually only a couple of hours -shared about family relationships -talked about growing up; HS Impression:will change dx to MDD with pschotic features (he agrees with change in dx; will leave bipolar as rule out, however from reporting does not meet criteria). remains depressed but only just back on meds. 10/25 still very depressed; forcing self to go to groups and says almost panicked, but went out of group for a bit, calmed down and then returned. Reviewed options and pt agrees to try Wellbutrin XR 150mg for depression 10/26 pt reports he's feeling very depressed today, but does not know why; agrees to increase wellbutrin 10/27 continue tx regimen 10/28 reports mood is alright and is slowly getting a little better, out of room more, easier to push self to do ADL's; thus will leave wellbutrin as is for now -nightmares returned for past 2 days, which do during times of depression. Discussed Prazosin and how it can cause lightheadedness/dizziness... agreed to try it anyway since nightmare are bothersome 10/29 patient reports he is starting to feel little better; nightmares less intense; continue current regimen 10/30 Patient remains overall doing better, mood is better and would like to leave Wellbutrin as it is. However he continues to have nightmares from childhood trauma. Patient shared a little about history of trauma, that he has never talked about it before or processed it, finding it hard to trust people. Discussed the role of therapy and how it can help and patient said he very much feels the need to engage with a therapist. Given nightmares patient agreed to increase prazosin. -Discussed last night's bout of confusion where he was unclear where his room was and accidentally got into his roommate's bed (which was empty) to sleep; he does not remember much of it and says he has been told that he sleep walks. Patient currently presents organized in speech behavior -have discussed substance abuse treatment and patient will remain on methadone; looking to go to a substance abuse program 10/31 starting BuSpar; will titrate Patient remains in good behavioral and impulse control inappropriate with peers and staff. He is engaged in treatment, attending groups and forthcoming in 1 1 sessions. Patient is stable on current medication regimen 11/01 pt remains very anxious; agrees to increase in buspar which is tolerated; he asks for increase in thorazine as well. Got challenging news about his brothers dx of cancer, but handling news well. -c/o trouble swallowing; speech eval ordered barium swallow 11/02 Patient overall feels better. Mood is better and even feels that his anxiety is improved. Patient is pleased with medication regimen and would like to continue with it. Very much hoping to get into a program. He remains engaged in treatment. -Patient got a little dizzy after standing up quickly and sad himself down. Orthostatics checked and patient was found to be positive for orthostatic hypotension. Education provided 11/03 Pt sustained a fall. He appears to be having absence seizure activity Hold wellbutrin, chlorpromazine EKG, EEG, CBCD, CMP Pt seen by [facility], he will have IVF Speech recommends OP BAS Sleep study also is recommended Continue to monitor. 11/04 Add Cepacol for sore throat. D/C IV line. 5 minutes check. Rest the same. 11/05 start Thorazine 10 mg PO TID. Ibuprofen 400 mg p.o. q.6 hours p.r.n. pain 11/06 Patient reports that overall mood and anxiety are better. Does miss being on Wellbutrin but it is being held till after EEG. Patient was accepted to [facility] but declined saying he had been there before and found the atmosphere counter therapeutic; he is hoping to get into 1 of the other 2 programs applied to but if not he understands and agrees that he will just work on sobriety on his own in the outpatient world. Otherwise sleeping and eating well. No dizzy spells Over the weekend: -patient diagnosed with pneumonia following chest x-ray and started on antibiotic -some concern for absence seizures? However given patient's reporting to this internal communications writer seems much less likely. Patient going for EEG today. On the other hand he was found to be dehydrated with elevated creatinine and benefited from IV fluids -currently Wellbutrin being held out of an abundance for caution as it can very minimally lower the seizure threshold; will hold off restarting until EEG results EEG IMPRESSION (11/03): Generalized slowing with no evidence of seizure disorder. 11/07 Patient reports that he continues to overall feel better and that depression and anxiety are well treated and not bothersome. Denies any SI. Discussed of EEG and patient reassured. Appreciates Wellbutrin being restarted. 11/08 Patient reports continues to feel with good mood, and less anxiety. Focused on aftercare plans. Discussed orthostatic hypotension and patient's continued desire to want to use clonidine as a p.r.n.; patient said he is careful about standing up and clonidine remains helpful and wants to continue with it. Patient reports that he has hardly urinated since yesterday morning; says it happens every few months and typically resolves on its own after 1-2 days; otherwise he says he has gotten straight cathed in the past. -Patient receive Flomax 0.4 mg 1 time dose however has not resolved -will order BUN/creatinine -reached out to urology who recommended Flomax 0.8 mg q.h.s. left foot wound: resolved Broadcast Maintenance Engineer examined patient's left foot and wound remains completely healed. No further intervention necessary. Dysphagia: Patient had complained of dysphagia and seen by speech therapy..? Patient educated on pharyngeal strengthening exercises and reviewed swallowing strategies.? No changes made to dietary regimen other than to consider thin liquids.? Recommendation is for barium swallow as an outpatient. Pt remains in good behavioral and impulse control Pt is stable on current medication regimen PLAN: Admit, 15 minute checks Continue BuSpar 10 mg t.i.d.; will titrate Continue prazosin 2 mg qhs for nightmares continue Cymbalta 120mg Increase to Wellbutrin XR 300mg for depression Continue Gabapentin 300mg tid (was on before and helped w/ neuropathic pain and anxiety) Continue metformin 500mg BID (will consider whether to titrate to 1000mg bid his home dose) trulicity weekly (he missed last week) clonidine0.1mg qhs lowered zyprexa to 7.5mg; pt denies psychotic symptoms other than echoes, distant voice that only occur when depressed Lidocaine patch for sciatica Triamcinolone cream-underarm rash Chlorpromazine trial prn (pt reports very helpful by hx for sx mgt) Decrease chlorpromaxine to 25 mg qid prn Decrease olanzapine to 20 mg HS Decrease Benztropine to 0.5 mg bid Patient educated on: diagnosis, medication risk/benefits and therapeutic strategies Patient educated on: diagnosis, medication risk/benefits and medical condition Informed Consent: understands Reason for continued inpatient stay Substantial Risk for: stable for discharge Time Spent With Patient Time: Total time managing care of this patient today ____ minutes.
[2024-11-08] MEDS: Throat Lozenge, Medicated LOZENGE 1 LOZENGE MUCOUS MEM (11:47)
[2024-11-08] MEDS: Tamsulosin HCL 0.4 MG CAPSULE PO (12:03)
[2024-11-08] MEDS: hydrOXYzine HCL 25 MG TABLET PO ×2 (12:04→18:59)
[2024-11-08] MEDS: Lidocaine 4 % Patch ADH..PATCH 1 PATCH TRANSDERMA (18:58)
[2024-11-08 19:52] VITALS: BP 130/70; PULSE 71; RESP 16; TEMP 36.2; O2SAT 98
[2024-11-08] MEDS: Tamsulosin HCL 0.4 MG CAPSULE 0.8 MG PO (20:16)
[2024-11-08] MEDS: Melatonin 3 MG TABLET PO (20:17)
[2024-11-08] MEDS: Prazosin HCL 1 MG CAPSULE 2 MG PO (20:17)
[2024-11-08] MEDS: traZODone HCL 50 MG TABLET PO (20:17)
[2024-11-08] MEDS: OLANZapine 7.5 MG TABLET PO (20:17)
[2024-11-08 20:24] LABS: Glucose, Whole Blood 87 mg/dL (60-115)
[2024-11-08 20:49] LABS: Anion Gap 16 (12-20); Blood Urea Nitrogen 22 mg/dL (9-16); Calcium 9.5 mg/dL (8.4-10.2); Carbon Dioxide 20 mmol/L (22-29); Chloride 101 mmol/L (96-108); Creatinine Clr Calc Pharmacy 79.5; Estimated Glomerular Filt Rate > 60; Glucose Random 100 mg/dL (60-115); Potassium 4.4 mmol/L (3.3-5.1); Sodium 133 mmol/L (135-145)
[2024-11-09] MEDS: Amoxicillin/Potassium Clav 500 MG TABLET PO ×3 (05:40→20:17)
[2024-11-09] MEDS: methADONE HCl 20 MG/2 ML ORAL.CONC 140 MG PO (07:52)
[2024-11-09 08:08] LABS: Glucose, Whole Blood 110 mg/dL (60-115)
[2024-11-09 09:11] VITALS: BP 108/74; PULSE 76; RESP 20; TEMP 36.4; O2SAT 96
[2024-11-09] MEDS: metFORMIN HCl ER 500 MG TAB.ER.24H PO ×2 (09:15→20:17)
[2024-11-09] MEDS: Bictegrav/Emtricit/Tenofov Ala TABLET 1 TAB PO (09:15)
[2024-11-09] MEDS: chlorproMAZINE HCl 10 MG TABLET PO ×3 (09:15→20:17)
[2024-11-09] MEDS: Gabapentin 300 MG CAPSULE PO ×3 (09:15→20:18)
[2024-11-09] MEDS: Valsartan 80 MG TABLET PO (09:16)
[2024-11-09] MEDS: cloNIDine HCL 0.1 MG TABLET PO ×2 (09:16→20:18)
[2024-11-09] MEDS: Cholecalciferol (Vitamin D3) 25 MCG TABLET PO (09:16)
[2024-11-09] MEDS: Atorvastatin Calcium 80 MG TABLET PO (09:17)
[2024-11-09] MEDS: busPIRone HCl 10 MG TABLET PO ×3 (09:17→20:18)
[2024-11-09] MEDS: Sennosides/Docusate Sodium TABLET 1 TAB PO (09:17)
[2024-11-09] MEDS: buPROPion HCl XL 300 MG TAB.ER.24H PO (09:17)
[2024-11-09] MEDS: Aspirin 81 MG TAB.CHEW PO (09:18)
[2024-11-09] MEDS: hydroCHLOROthiazide 25 MG TABLET PO (09:18)
[2024-11-09] MEDS: DULoxetine HCl 60 MG CAPSULE.DR 120 MG PO (09:18)
[2024-11-09] MEDS: Omeprazole 40 MG CAPSULE.DR PO ×2 (09:19→16:10)
[2024-11-09] MEDS: Benztropine Mesylate 0.5 MG TABLET PO ×2 (09:19→20:18)
[2024-11-09] MEDS: Nicotine 21 MG PATCH.TD24 TRANSDERMA (09:20)
[2024-11-09] MEDS: Fluticasone/Umeclidinium/Vilanterol 100/62.5/25 BLST.W.DEV 1 PUFF INHALE (09:20)
[2024-11-09] MEDS: Mineral Oil/Petrolatum,White 106 GM Tube 1 APPL TOPICAL (09:26)
[2024-11-09] MEDS: Triamcinolone Acet 0.1 % Cream 15 GM TUBE 1 APPL TOPICAL (09:27)
[2024-11-09] MEDS: Nicotine Polacrilex Lozenge 4 MG LOZENGE BUCCAL ×4 (09:47→20:17)
[2024-11-09] MEDS: Lidocaine 4 % Patch ADH..PATCH 1 PATCH TRANSDERMA (09:47)
--- NOTE | 2024-11-09 09:56 | HO.PSYCHPN ---
Subjective Subjective Date of Service: 11/09/24 Reason For Visit: Major depressive d/o PTSD Opioid Use Disorder Mode Interim History: met with patient; discussed with team pt remains doing well, good mood, anxiety under good control. Urinary hesitancy fully resolved Mental Status Exam Mental Status Exam Narrative: Pt is alert and oriented; behavior is cooperative, friendly and calm; patient is not in distress; dressed in casual attire with adequate hygiene and grooming; mood is described as good and affect congruent; eye contact appropriate; Speech is normal rate, volume and prosody and not pressured; no psychomotor agitation/retardation present; thought process is organized and goal directed; Thought content is on tx, aftercare; otherwise pertinent to relevant topics and without any delusional content, paranoid ideations or grandiosity; denies any SI/HI. There is no evidence of perceptual disturbance. Patients insight and judgment fair Diagnostics Vital Signs (24Hr): Vital Signs - 24 hr 11/08/24 19:52 11/09/24 09:11 Temperature 97.1 F 97.5 F Pulse Rate 71 76 Respiratory Rate 16 20 Blood Pressure 130/70 108/74 Pulse Oximetry 98 96 Oxygen Delivery Method Room Air Room Air BMI result Body Mass Index 32.5 Labs 11/03/24 14:45 11/08/24 20:09 Labs: Laboratory Results - last 48 hr 11/07/24 11/07/24 11/08/24 12:33 20:24 07:49 Sodium Potassium Chloride Carbon Dioxide Anion Gap BUN Creatinine Estim Creat Clear Calc Estimated GFR POC Glucose 130 H 82 110 Random Glucose Calcium 11/08/24 11/08/24 11/08/24 08:15 20:09 20:13 Sodium 133 L Potassium 4.4 Chloride 101 Carbon Dioxide 20 L Anion Gap 16 BUN 22 H Creatinine 1.11 1.24 Estim Creat Clear Calc 88.8 79.5 Estimated GFR > 60 > 60 POC Glucose 87 Random Glucose 100 Calcium 9.5 11/09/24 07:55 Sodium Potassium Chloride Carbon Dioxide Anion Gap BUN Creatinine Estim Creat Clear Calc Estimated GFR POC Glucose 110 Random Glucose Calcium Imaging Radiology Impressions: ITS Impressions Head CT 11/03/24 15:11 IMPRESSION: 1. No acute intracranial abnormalities. No fractures. 2. Chronic changes as discussed. Electronically signed by: Benoit Powell MD 11/03/2024 04:12 PM [facility] Chest X-Ray 11/03/24 15:42 IMPRESSION: 1. Subtle patchy opacities both lung bases, and in the right mid and upper lung. Multifocal/atypical pneumonia is suspected. 2. There is no effusion or pneumothorax. Electronically signed by: Benoit Powell MD 11/03/2024 04:06 PM EST Medications Medications Current Medications Acetaminophen (Acetaminophen 325 Mg Tablet) 650 mg PO Q6H PRN PRN Reason: Headache/Pain, Scale 1-10 Last Admin: 11/06/24 11:21 Dose: 650 mg Al Hydroxide/Mg Hydroxide (Magnesium Hydrox/Alum Hydrox 30 Ml Oral.Susp) 30 ml PO Q6H PRN PRN Reason: Heartburn/Nausea Last Admin: 10/29/24 09:07 Dose: 30 ml Amoxicillin/Clavulanate Potassium (Amoxicillin/Potassium Clav 500 Mg Tablet) 500 mg PO Q8H [facility] Stop: 11/10/24 20:01 Last Admin: 11/09/24 05:40 Dose: 500 mg Aspirin (Aspirin 81 Mg Tab.Chew) 81 mg PO DAILY [facility] Last Admin: 11/09/24 09:18 Dose: 81 mg Atorvastatin Calcium (Atorvastatin Calcium 80 Mg Tablet) 80 mg PO DAILY [facility] Last Admin: 11/09/24 09:17 Dose: 80 mg Benzocaine (Throat Lozenge, Medicated Lozenge) 1 lozenge MUCOUS MEM Q2H PRN PRN Reason: Sore Throat Last Admin: 11/08/24 11:47 Dose: 1 lozenge Benztropine Mesylate (Benztropine Mesylate 0.5 Mg Tablet) 0.5 mg PO BID [facility] Last Admin: 11/09/24 09:19 Dose: 0.5 mg Bictegravir/Emtricitabine/Tenofovir (Bictegrav/Emtricit/Tenofov Ala Tablet) 1 tab PO DAILY [facility] Last Admin: 11/09/24 09:15 Dose: 1 tab Bupropion HCl (Bupropion Hcl Xl 300 Mg Tab.Er.24h) 300 mg PO DAILY [facility] Last Admin: 11/09/24 09:17 Dose: 300 mg Buspirone HCl (Buspirone Hcl 10 Mg Tablet) 10 mg PO TID [facility] Last Admin: 11/09/24 09:17 Dose: 10 mg Chlorpromazine HCl (Chlorpromazine Hcl 25 Mg Tablet) 50 mg PO QID PRN PRN Reason: anxiety-severe Last Admin: 11/03/24 10:45 Dose: 50 mg Chlorpromazine HCl (Chlorpromazine Hcl 10 Mg Tablet) 10 mg PO TID [facility] Last Admin: 11/09/24 09:15 Dose: 10 mg Clonidine HCl (Clonidine Hcl 0.1 Mg Tablet) 0.1 mg PO Q4H PRN; Protocol PRN Reason: moderate anxiety Last Admin: 11/07/24 17:46 Dose: 0.1 mg Clonidine HCl (Clonidine Hcl 0.1 Mg Tablet) 0.1 mg PO BID [facility]; Protocol Last Admin: 11/09/24 09:16 Dose: 0.1 mg Duloxetine HCl (Duloxetine Hcl 60 Mg Capsule.Dr) 120 mg PO DAILY [facility] Last Admin: 11/09/24 09:18 Dose: 120 mg Famotidine (Famotidine 20 Mg Tablet) 20 mg PO DAILY PRN PRN Reason: GERD Last Admin: 11/05/24 08:52 Dose: 20 mg Fluticasone/Umeclidinium/Vilanterol (Fluticasone/Umeclidinium/Vilanterol 100/62.5/25 Blst.W.Dev) 1 puff INHALE RDAILY [facility] Last Admin: 11/09/24 09:20 Dose: 1 puff Gabapentin (Gabapentin 300 Mg Capsule) 300 mg PO TID [facility] Last Admin: 11/09/24 09:15 Dose: 300 mg Hydrochlorothiazide (Hydrochlorothiazide 25 Mg Tablet) 25 mg PO DAILY [facility]; Protocol Last Admin: 11/09/24 09:18 Dose: 25 mg Hydroxyzine HCl (Hydroxyzine Hcl 25 Mg Tablet) 25 mg PO Q6H PRN PRN Reason: mild anxiety Last Admin: 11/08/24 18:59 Dose: 25 mg Ibuprofen (Ibuprofen 600 Mg Tablet) 600 mg PO Q8H PRN PRN Reason: Pain, Moderate(Pain Scale 4-6) Last Admin: 11/06/24 09:03 Dose: 600 mg Lidocaine (Lidocaine 4 % Patch Adh..Patch) 1 patch TRANSDERMA DAILY PRN; Protocol PRN Reason: left sided sciatica Last Admin: 11/09/24 09:47 Dose: 1 patch Magnesium Hydroxide (Milk Of Magnesia 30 Ml Oral.Susp) 30 ml PO DAILY PRN PRN Reason: Constipation Last Admin: 11/06/24 09:05 Dose: 30 ml Melatonin (Melatonin 3 Mg Tablet) 3 mg PO BEDTIME [facility] Last Admin: 11/08/24 20:17 Dose: 3 mg Metformin HCl (Metformin Hcl Er 500 Mg Tab.Er.24h) 500 mg PO BID [facility] Last Admin: 11/09/24 09:15 Dose: 500 mg Methadone HCl (Methadone Hcl 20 Mg/2 Ml Oral.Conc) 140 mg PO DAILY@0800 [facility] Last Admin: 11/09/24 07:52 Dose: 140 mg Multi-Ingred Cream/Lotion/Oil/Oint (Mineral Oil/Petrolatum,White 106 Gm Tube) 1 appl TOPICAL BID [facility]; Protocol Last Admin: 11/09/24 09:26 Dose: 1 appl Nicotine (Nicotine 21 Mg Patch.Td24) 21 mg TRANSDERMA DAILY [facility] Last Admin: 11/09/24 09:20 Dose: 21 mg Nicotine Polacrilex (Nicotine Polacrilex Lozenge 4 Mg Lozenge) 4 mg BUCCAL Q2H PRN PRN Reason: Nicotine Cravings Last Admin: 11/09/24 09:47 Dose: 4 mg Pt Owned Med ( Trulicity 1.5mg / 0. 5ml) 1 each SUBCUT Th@0900 [facility] Last Admin: 11/02/24 16:55 Dose: 1 each Nystatin (Nystatin Cream 15 Gm Tube) 1 appl TOPICAL BID PRN; Protocol PRN Reason: Rash Last Admin: 11/06/24 08:42 Dose: 1 appl Olanzapine (Olanzapine 7.5 Mg Tablet) 7.5 mg PO BEDTIME [facility] Last Admin: 11/08/24 20:17 Dose: 7.5 mg Omeprazole (Omeprazole 40 Mg Capsule.Dr) 40 mg PO BID@0630,1630 [facility] Last Admin: 11/09/24 09:19 Dose: 40 mg Polyethylene Glycol (Polyethylene Glycol 3350 17 Gm Powd.Pack) 17 gm PO DAILY PRN PRN Reason: continued Constipation Prazosin HCl (Prazosin Hcl 1 Mg Capsule) 2 mg PO BEDTIME [facility]; Protocol Last Admin: 11/08/24 20:17 Dose: 2 mg Senna/Docusate Sodium (Sennosides/Docusate Sodium Tablet) 1 tab PO DAILY [facility] Last Admin: 11/09/24 09:17 Dose: 1 tab Tamsulosin HCl (Tamsulosin Hcl 0.4 Mg Capsule) 0.8 mg PO BEDTIME [facility] Last Admin: 11/08/24 20:16 Dose: 0.8 mg Trazodone HCl (Trazodone Hcl 50 Mg Tablet) 50 mg PO BEDTIME MRX1 PRN PRN Reason: Insomnia Last Admin: 11/08/24 20:17 Dose: 50 mg Triamcinolone Acetonide (Triamcinolone Acet 0.1 % Cream 15 Gm Tube) 1 appl TOPICAL BID [facility]; Protocol Last Admin: 11/09/24 09:27 Dose: 1 appl Valsartan (Valsartan 80 Mg Tablet) 80 mg PO DAILY [facility] Last Admin: 11/09/24 09:16 Dose: 80 mg Vitamin D (Cholecalciferol (Vitamin D3) 25 Mcg Tablet) 25 mcg PO DAILY [facility] Last Admin: 11/09/24 09:16 Dose: 25 mcg Allergies Allergies Allergy/AdvReac Type Severity Reaction Status Date / Time latex [LATEX] Allergy Unknown UNKNOWN Verified 02/09/21 03:06 peanut Allergy Unknown unknown Verified 11/01/24 20:16 From [facility] Allergy Unknown UNKNOWN Uncoded 02/09/21 03:06 Assessment & Plan Assessment & Plan (1) MDD (major depressive disorder), recurrent, severe, with psychosis: Status: Acute Code(s): F33.3 - Major depressive disorder, recurrent, severe with psychotic symptoms (2) PTSD (post-traumatic stress disorder): Status: Acute Code(s): F43.10 - Post-traumatic stress disorder, unspecified (3) Opioid use disorder: Status: Acute Code(s): F11.99 - Opioid use, unspecified with unspecified opioid-induced disorder (4) Cocaine abuse: Status: Acute Code(s): F14.10 - Cocaine abuse, uncomplicated (5) Polysubstance use disorder: Status: Acute Code(s): F19.90 - Other psychoactive substance use, unspecified, uncomplicated (6) History of HIV or AIDS: Status: Acute (7) Homeless: Status: Acute Code(s): Z59.00 - Homelessness unspecified Plan Hospital course: 10/23 Decrease chlorpromaxine to 25 mg qid prn Decrease olanzapine to 20 mg HS Decrease Benztropine to 0.5 mg bid 10/24 shared recent hx and pt reports he has been off medications for 3 weeks following relapse after 15-16 months of sobriety. Thinks relapse maybe partly due to the one year anniversary of his girlfriends . While sober, on Gabapentin, Cymbalta, trazodone, pt mood good, though anxiety/panic remained. Currently, still very depressed; says SI thoughts come and go, which are still lingering; some he can shrug off. AH less now. -Agreed to get back on Gabapentin which he used for nerve pain, but also helped with anxiety -discussed dx since he carries bipolar dx; However, pt says longest manic episode lasts only a day at most and usually only a couple of hours -shared about family relationships -talked about growing up; HS Impression:will change dx to MDD with pschotic features (he agrees with change in dx; will leave bipolar as rule out, however from reporting does not meet criteria). remains depressed but only just back on meds. 10/25 still very depressed; forcing self to go to groups and says almost panicked, but went out of group for a bit, calmed down and then returned. Reviewed options and pt agrees to try Wellbutrin XR 150mg for depression 10/26 pt reports he's feeling very depressed today, but does not know why; agrees to increase wellbutrin 10/27 continue tx regimen 10/28 reports mood is alright and is slowly getting a little better, out of room more, easier to push self to do ADL's; thus will leave wellbutrin as is for now -nightmares returned for past 2 days, which do during times of depression. Discussed Prazosin and how it can cause lightheadedness/dizziness... agreed to try it anyway since nightmare are bothersome 10/29 patient reports he is starting to feel little better; nightmares less intense; continue current regimen 10/30 Patient remains overall doing better, mood is better and would like to leave Wellbutrin as it is. However he continues to have nightmares from childhood trauma. Patient shared a little about history of trauma, that he has never talked about it before or processed it, finding it hard to trust people. Discussed the role of therapy and how it can help and patient said he very much feels the need to engage with a therapist. Given nightmares patient agreed to increase prazosin. -Discussed last night's bout of confusion where he was unclear where his room was and accidentally got into his roommate's bed (which was empty) to sleep; he does not remember much of it and says he has been told that he sleep walks. Patient currently presents organized in speech behavior -have discussed substance abuse treatment and patient will remain on methadone; looking to go to a substance abuse program 10/31 starting BuSpar; will titrate Patient remains in good behavioral and impulse control inappropriate with peers and staff. He is engaged in treatment, attending groups and forthcoming in 1 1 sessions. Patient is stable on current medication regimen 11/01 pt remains very anxious; agrees to increase in buspar which is tolerated; he asks for increase in thorazine as well. Got challenging news about his brothers dx of cancer, but handling news well. -c/o trouble swallowing; speech eval ordered barium swallow 11/02 Patient overall feels better. Mood is better and even feels that his anxiety is improved. Patient is pleased with medication regimen and would like to continue with it. Very much hoping to get into a program. He remains engaged in treatment. -Patient got a little dizzy after standing up quickly and sad himself down. Orthostatics checked and patient was found to be positive for orthostatic hypotension. Education provided 11/03 Pt sustained a fall. He appears to be having absence seizure activity Hold wellbutrin, chlorpromazine EKG, EEG, CBCD, CMP Pt seen by [facility], he will have IVF Speech recommends OP BAS Sleep study also is recommended Continue to monitor. 11/04 Add Cepacol for sore throat. D/C IV line. 5 minutes check. Rest the same. 11/05 start Thorazine 10 mg PO TID. Ibuprofen 400 mg p.o. q.6 hours p.r.n. pain 11/06 Patient reports that overall mood and anxiety are better. Does miss being on Wellbutrin but it is being held till after EEG. Patient was accepted to [facility] but declined saying he had been there before and found the atmosphere counter therapeutic; he is hoping to get into 1 of the other 2 programs applied to but if not he understands and agrees that he will just work on sobriety on his own in the outpatient world. Otherwise sleeping and eating well. No dizzy spells Over the weekend: -patient diagnosed with pneumonia following chest x-ray and started on antibiotic -some concern for absence seizures? However given patient's reporting to this process description writer seems much less likely. Patient going for EEG today. On the other hand he was found to be dehydrated with elevated creatinine and benefited from IV fluids -currently Wellbutrin being held out of an abundance for caution as it can very minimally lower the seizure threshold; will hold off restarting until EEG results EEG IMPRESSION (11/03): Generalized slowing with no evidence of seizure disorder. 11/07 Patient reports that he continues to overall feel better and that depression and anxiety are well treated and not bothersome. Denies any SI. Discussed of EEG and patient reassured. Appreciates Wellbutrin being restarted. 11/08 Patient reports continues to feel with good mood, and less anxiety. Focused on aftercare plans. Discussed orthostatic hypotension and patient's continued desire to want to use clonidine as a p.r.n.; patient said he is careful about standing up and clonidine remains helpful and wants to continue with it. Patient reports that he has hardly urinated since yesterday morning; says it happens every few months and typically resolves on its own after 1-2 days; otherwise he says he has gotten straight cathed in the past. -Patient receive Flomax 0.4 mg 1 time dose however has not resolved -will order BUN/creatinine -reached out to urology who recommended Flomax 0.8 mg q.h.s. left foot wound: resolved Parts Inspector examined patient's left foot and wound remains completely healed. No further intervention necessary. Dysphagia: Patient had complained of dysphagia and seen by speech therapy..? Patient educated on pharyngeal strengthening exercises and reviewed swallowing strategies.? No changes made to dietary regimen other than to consider thin liquids.? Recommendation is for barium swallow as an outpatient within a month; not emergent Urinary hesitancy: fully resolved Pt remains in good behavioral and impulse control Pt is stable on current medication regimen PLAN: Admit, 15 minute checks flomax 0.4mg daily Continue BuSpar 10 mg t.i.d.; will titrate Continue prazosin 2 mg qhs for nightmares continue Cymbalta 120mg Increase to Wellbutrin XR 300mg for depression Continue Gabapentin 300mg tid (was on before and helped w/ neuropathic pain and anxiety) Continue metformin 500mg BID (will consider whether to titrate to 1000mg bid his home dose) trulicity weekly (he missed last week) clonidine0.1mg qhs lowered zyprexa to 7.5mg; pt denies psychotic symptoms other than echoes, distant voice that only occur when depressed Lidocaine patch for sciatica Triamcinolone cream-underarm rash Chlorpromazine trial prn (pt reports very helpful by hx for sx mgt) Decrease chlorpromaxine to 25 mg qid prn Decrease olanzapine to 20 mg HS Decrease Benztropine to 0.5 mg bid Patient educated on: diagnosis, medication risk/benefits and therapeutic strategies Patient educated on: diagnosis, medication risk/benefits and medical condition Informed Consent: understands Reason for continued inpatient stay Substantial Risk for: stable for discharge Time Spent With Patient Time: Total time managing care of this patient today ____ minutes.
[2024-11-09] MEDS: DULAGLUTIDE 1.5 MG/0.5 ML 1 EACH SUBCUT (11:23)
[2024-11-09] MEDS: Tamsulosin HCL 0.4 MG CAPSULE PO (11:52)
[2024-11-09 15:03] VITALS: BMI 33.3
[2024-11-09] MEDS: hydrOXYzine HCL 25 MG TABLET PO (17:16)
[2024-11-09 20:00] VITALS: BP 120/75; PULSE 73; RESP 16; TEMP 36.4; O2SAT 97
[2024-11-09 20:17] VITALS: BP 120/75
[2024-11-09] MEDS: traZODone HCL 50 MG TABLET PO (20:17)
[2024-11-09] MEDS: Prazosin HCL 1 MG CAPSULE 2 MG PO (20:17)
[2024-11-09 20:18] VITALS: BP 120/75
[2024-11-09] MEDS: OLANZapine 7.5 MG TABLET PO (20:18)
[2024-11-09] MEDS: Melatonin 3 MG TABLET PO (20:18)
[2024-11-09 21:10] LABS: Glucose, Whole Blood 91 mg/dL (60-115)
[2024-11-10] MEDS: Amoxicillin/Potassium Clav 500 MG TABLET PO ×2 (04:27→12:24)
[2024-11-10] MEDS: methADONE HCl 20 MG/2 ML ORAL.CONC 140 MG PO (08:03)
[2024-11-10 08:26] LABS: Glucose, Whole Blood 98 mg/dL (60-115)
[2024-11-10] MEDS: Omeprazole 40 MG CAPSULE.DR PO (08:46)
[2024-11-10] MEDS: chlorproMAZINE HCl 10 MG TABLET PO (08:47)
[2024-11-10] MEDS: DULoxetine HCl 60 MG CAPSULE.DR 120 MG PO (08:47)
[2024-11-10] MEDS: Aspirin 81 MG TAB.CHEW PO (08:47)
[2024-11-10] MEDS: Tamsulosin HCL 0.4 MG CAPSULE PO (08:47)
[2024-11-10] MEDS: buPROPion HCl XL 300 MG TAB.ER.24H PO (08:47)
[2024-11-10] MEDS: Benztropine Mesylate 0.5 MG TABLET PO (08:47)
[2024-11-10] MEDS: Bictegrav/Emtricit/Tenofov Ala TABLET 1 TAB PO (08:47)
[2024-11-10] MEDS: Sennosides/Docusate Sodium TABLET 1 TAB PO (08:48)
[2024-11-10] MEDS: Gabapentin 300 MG CAPSULE PO (08:48)
[2024-11-10] MEDS: metFORMIN HCl ER 500 MG TAB.ER.24H PO (08:48)
[2024-11-10] MEDS: Atorvastatin Calcium 80 MG TABLET PO (08:48)
[2024-11-10] MEDS: busPIRone HCl 10 MG TABLET PO (08:48)
[2024-11-10] MEDS: Cholecalciferol (Vitamin D3) 25 MCG TABLET PO (08:48)
[2024-11-10 09:16] VITALS: BP 105/68; PULSE 76; RESP 16; TEMP 36.8; O2SAT 94
[2024-11-10 10:00] VITALS: BP 105/68
[2024-11-10] MEDS: cloNIDine HCL 0.1 MG TABLET PO ×2 (10:00→12:13)
[2024-11-10] MEDS: hydroCHLOROthiazide 25 MG TABLET PO (10:00)
[2024-11-10] MEDS: Valsartan 80 MG TABLET PO (10:00)
[2024-11-10] MEDS: Nicotine Polacrilex Lozenge 4 MG LOZENGE BUCCAL (10:01)
[2024-11-10] MEDS: Triamcinolone Acet 0.1 % Cream 15 GM TUBE 1 APPL TOPICAL (10:04)
[2024-11-10] MEDS: Fluticasone/Umeclidinium/Vilanterol 100/62.5/25 BLST.W.DEV 1 PUFF INHALE (10:04)
[2024-11-10] MEDS: Nicotine 21 MG PATCH.TD24 TRANSDERMA (10:05)
[2024-11-10 12:13] VITALS: BP 114/74
[2024-11-10] MEDS: Naloxone HCl Nasal TAKE HOME 4 MG SPRAY 8 MG NOSTRILALT (12:24)
[2024-11-10 12:45] LABS: Anion Gap 12 (12-20); Blood Urea Nitrogen 27 mg/dL (9-16); Calcium 9.9 mg/dL (8.4-10.2); Carbon Dioxide 25 mmol/L (22-29); Chloride 102 mmol/L (96-108); Creatinine Clr Calc Pharmacy 73.9; Estimated Glomerular Filt Rate 56; Glucose Random 140 mg/dL (60-115); Potassium 4.4 mmol/L (3.3-5.1); Sodium 135 mmol/L (135-145)
--- NOTE | 2024-11-10 13:05 | PM.PSYDC ---
DS: Providers Provider Date of Service: 11/10/24 Date of admission: 10/20/24 16:20 Date of discharge: 11/10/24 Primary care physician: Unknown Physician Attending physician on admission: Lauri Judd Consults: 10/20/24 17:32 Consult to Hospitalist Routine Comment: [place]ing [place] [facility] [place] For Exam: transfer pt 10/20/24 19:30 Consult to Wound Care Routine Reason for consultation: l foot wound 11/03/24 14:01 Consult to Hospitalist Routine Comment: Consulting Provider[place] [facility] [place] Reason For Exam: MSE changes, ?seizure activity,falling,disoriented Attending physician on discharge: Lauri Judd DS: Diagnosis Discharge Diagnosis (1) MDD (major depressive disorder), recurrent, severe, with psychosis: Status: Acute (2) PTSD (post-traumatic stress disorder): Status: Acute (3) Opioid use disorder: Status: Acute (4) Cocaine abuse: Status: Acute (5) Polysubstance use disorder: Status: Acute (6) History of HIV or AIDS: Status: Acute (7) Homeless: Status: Acute DS: Medications Discharge Medications Home Medications: Home Medications ?Medication ?Instructions ?Recorded ?Confirmed sildenafil 100 mg tablet 1 tab PO DAILY PRN Sexual Activity 02/11/21 10/20/24 methadone 10 mg/mL oral 140 mg PO DAILY 10/20/24 10/20/24 concentrate (Methadone Intensol) Previous Rx's ?Medication ?Instructions ?Recorded dulaglutide 1.5 mg/0.5 mL See Rx Instructions .Route 10/26/24 subcutaneous pen injector .COMPLEX #2 mL (Trulicity) aspirin 81 mg tablet,delayed 81 mg PO DAILY 30 days #30 tabs 11/10/24 release atorvastatin 80 mg tablet 80 mg PO DAILY 30 days #30 tabs 11/10/24 benztropine 0.5 mg tablet 0.5 mg PO BID 30 days #60 tabs 11/10/24 bictegravir 50 mg-emtricitabine 1 tab PO DAILY 30 days #30 tabs 11/10/24 200 mg-tenofovir alafenam 25 mg tablet (Biktarvy) bupropion HCl 300 mg 24 hr tablet, 300 mg PO DAILY 30 days #30 tabs 11/10/24 extended release buspirone 10 mg tablet 10 mg PO TID 30 days #90 tabs 11/10/24 chlorpromazine 10 mg tablet 10 mg PO TID 30 days #90 tabs 11/10/24 cholecalciferol (vitamin D3) 25 25 mcg PO DAILY 30 days #30 caps 11/10/24 mcg (1,000 unit) capsule (Vitamin D3) clonidine HCl 0.1 mg tablet See Rx Instructions .Route 11/10/24 .COMPLEX anxiety 30 days #90 tabs dulaglutide 1.5 mg/0.5 mL 1.5 mg (0.5 mL) subcut QWEEK #2 mL 11/10/24 subcutaneous pen injector duloxetine 60 mg capsule,delayed 120 mg (2 x 60 mg) PO DAILY 30 11/10/24 release days #60 caps famotidine 20 mg tablet 20 mg PO DAILY PRN breakthrough 11/10/24 heart burn 30 days #30 tabs fluticasone fur. 200 mcg-umeclid 1 ea inhalation DAILY 28 days #28 11/10/24 62.5 mcg-vilant 25 mcg ea inhalat.powder (Trelegy Ellipta) gabapentin 300 mg capsule 300 mg PO TID 30 days #90 caps 11/10/24 hydrochlorothiazide 25 mg tablet 25 mg PO DAILY 30 days #30 tabs 11/10/24 hydroxyzine HCl 25 mg tablet 25 mg PO Q6H PRN mild anxiety 30 11/10/24 days #60 tabs lidocaine 4 % topical patch 1 patch transdermal DAILY PRN left 11/10/24 (Lidocaine Pain Relief) sided sciatica 30 days #30 ea melatonin 3 mg tablet 3 mg PO BEDTIME 30 days #30 tabs 11/10/24 metformin 500 mg tablet,extended 1,000 mg (2 x 500 mg) PO BID 30 11/10/24 release 24 hr days #120 tabs nicotine (polacrilex) 4 mg buccal 4 mg buccal Q2H PRN Nicotine 11/10/24 lozenge Cravings 30 days #108 ea nicotine 21 mg/24 hr daily 21 mg transdermal DAILY PRN 11/10/24 transdermal patch nicotine cravings 28 days #28 ea olanzapine 7.5 mg tablet 7.5 mg PO BEDTIME 30 days #30 tabs 11/10/24 omeprazole 40 mg capsule,delayed 40 mg PO BID 30 days #60 caps 11/10/24 release prazosin 2 mg capsule 2 mg PO BEDTIME 30 days #30 caps 11/10/24 sennosides 8.6 mg-docusate sodium 1 tab PO DAILY 30 days #30 tabs 11/10/24 50 mg tablet (Senna Plus) tamsulosin 0.4 mg capsule 0.4 mg PO DAILY 30 days #30 caps 11/10/24 trazodone 50 mg tablet 50 mg PO BEDTIME PRN insomnia 30 11/10/24 days #30 tabs triamcinolone acetonide 0.1 % 1 appl topical BID 30 days #15 11/10/24 topical cream grams valsartan 80 mg tablet 80 mg PO DAILY 30 days #30 tabs 11/10/24 Mental Status Exam Mental Status Exam Narrative: Pt is alert and oriented; behavior is cooperative, friendly and calm; patient is not in distress; dressed in casual attire with adequate hygiene and grooming; mood is described as anxious and affect congruent; eye contact appropriate; Speech is normal rate, volume and prosody and not pressured; no psychomotor agitation/retardation present; thought process is organized and goal directed; Thought content is on tx, aftercare; otherwise pertinent to relevant topics and without any delusional content, paranoid ideations or grandiosity; denies any SI/HI. There is no evidence of perceptual disturbance. Patients insight and judgment fair Data Data Completed and Pending Completed studies during hospitalization [Text1]: 11/03/24 11/03/24 11/03/24 14:41 14:45 15:40 WBC 12.8 H RBC 3.59 L Hgb 11.6 L Hct 33.7 L MCV 93.9 MCH 32.3 MCHC 34.4 RDW 12.5 Plt Count 165 MPV 9.7 Immature Gran % (Auto) 0.5 H Neut % (Auto) 66.1 Lymph % (Auto) 23.8 [place] % (Auto) 7.3 Eos % (Auto) 1.9 Baso % (Auto) 0.4 Lymph # (Auto) 3.1 [place] # (Auto) 0.9 Eos # (Auto) 0.2 Baso # (Auto) 0.1 Abs Immat Gran (auto) 0.06 H Absolute Neuts (auto) 8.5 H Absolute Nucleated RBC 0.000 Nucleated RBC % (auto) 0.0 Smear Tech's Comments VERIFIED VBG pH VBG pCO2 VBG pO2 VBG HCO3 VBG O2 Saturation VBG Base Excess Sodium 136 Potassium 4.5 Chloride 102 Carbon Dioxide 23 Anion Gap 16 BUN 26 H Creatinine 1.42 H Estim Creat Clear Calc 69.4 Estimated GFR 53 POC Glucose Random Glucose 75 Calcium 9.2 Total Bilirubin 0.7 AST 18 ALT 23 Alkaline Phosphatase 124 H Ammonia 37 Total Protein 7.6 Albumin 4.0 Influenza Type A (PCR) Influenza Type B (PCR) RSV RNA Qual (PCR) SARS-CoV-2 RNA (RT-PCR) 11/03/24 11/03/24 11/03/24 15:45 16:10 21:18 WBC RBC Hgb Hct MCV MCH MCHC RDW Plt Count MPV Immature Gran % (Auto) Neut % (Auto) Lymph % (Auto) [place] % (Auto) Eos % (Auto) Baso % (Auto) Lymph # (Auto) [place] # (Auto) Eos # (Auto) Baso # (Auto) Abs Immat Gran (auto) Absolute Neuts (auto) Absolute Nucleated RBC Nucleated RBC % (auto) Smear Tech's Comments VBG pH 7.36 VBG pCO2 47 VBG pO2 53 VBG HCO3 27 H VBG O2 Saturation 80.0 VBG Base Excess 1.4 Sodium Potassium Chloride Carbon Dioxide Anion Gap BUN Creatinine Estim Creat Clear Calc Estimated GFR POC Glucose 126 H Random Glucose Calcium Total Bilirubin AST ALT Alkaline Phosphatase Ammonia Total Protein Albumin Influenza Type A (PCR) NEGATIVE Influenza Type B (PCR) NEGATIVE RSV RNA Qual (PCR) NEGATIVE SARS-CoV-2 RNA (RT-PCR) NEGATIVE 11/04/24 11/04/24 11/05/24 08:08 20:41 08:22 WBC RBC Hgb Hct MCV MCH MCHC RDW Plt Count MPV Immature Gran % (Auto) Neut % (Auto) Lymph % (Auto) [place] % (Auto) Eos % (Auto) Baso % (Auto) Lymph # (Auto) [place] # (Auto) Eos # (Auto) Baso # (Auto) Abs Immat Gran (auto) Absolute Neuts (auto) Absolute Nucleated RBC Nucleated RBC % (auto) Smear Tech's Comments VBG pH VBG pCO2 VBG pO2 VBG HCO3 VBG O2 Saturation VBG Base Excess Sodium Potassium Chloride Carbon Dioxide Anion Gap BUN Creatinine Estim Creat Clear Calc Estimated GFR POC Glucose 107 131 H 100 Random Glucose Calcium Total Bilirubin AST ALT Alkaline Phosphatase Ammonia Total Protein Albumin Influenza Type A (PCR) Influenza Type B (PCR) RSV RNA Qual (PCR) SARS-CoV-2 RNA (RT-PCR) 11/05/24 11/06/24 11/07/24 20:41 20:13 08:06 WBC RBC Hgb Hct MCV MCH MCHC RDW Plt Count MPV Immature Gran % (Auto) Neut % (Auto) Lymph % (Auto) [place] % (Auto) Eos % (Auto) Baso % (Auto) Lymph # (Auto) [place] # (Auto) Eos # (Auto) Baso # (Auto) Abs Immat Gran (auto) Absolute Neuts (auto) Absolute Nucleated RBC Nucleated RBC % (auto) Smear Tech's Comments VBG pH VBG pCO2 VBG pO2 VBG HCO3 VBG O2 Saturation VBG Base Excess Sodium Potassium Chloride Carbon Dioxide Anion Gap BUN Creatinine Estim Creat Clear Calc Estimated GFR POC Glucose 109 100 114 Random Glucose Calcium Total Bilirubin AST ALT Alkaline Phosphatase Ammonia Total Protein Albumin Influenza Type A (PCR) Influenza Type B (PCR) RSV RNA Qual (PCR) SARS-CoV-2 RNA (RT-PCR) 11/07/24 11/07/24 11/08/24 12:33 20:24 07:49 WBC RBC Hgb Hct MCV MCH MCHC RDW Plt Count MPV Immature Gran % (Auto) Neut % (Auto) Lymph % (Auto) [place] % (Auto) Eos % (Auto) Baso % (Auto) Lymph # (Auto) [place] # (Auto) Eos # (Auto) Baso # (Auto) Abs Immat Gran (auto) Absolute Neuts (auto) Absolute Nucleated RBC Nucleated RBC % (auto) Smear Tech's Comments VBG pH VBG pCO2 VBG pO2 VBG HCO3 VBG O2 Saturation VBG Base Excess Sodium Potassium Chloride Carbon Dioxide Anion Gap BUN Creatinine Estim Creat Clear Calc Estimated GFR POC Glucose 130 H 82 110 Random Glucose Calcium Total Bilirubin AST ALT Alkaline Phosphatase Ammonia Total Protein Albumin Influenza Type A (PCR) Influenza Type B (PCR) RSV RNA Qual (PCR) SARS-CoV-2 RNA (RT-PCR) 11/08/24 11/08/24 11/08/24 08:15 20:09 20:13 WBC RBC Hgb Hct MCV MCH MCHC RDW Plt Count MPV Immature Gran % (Auto) Neut % (Auto) Lymph % (Auto) [place] % (Auto) Eos % (Auto) Baso % (Auto) Lymph # (Auto) [place] # (Auto) Eos # (Auto) Baso # (Auto) Abs Immat Gran (auto) Absolute Neuts (auto) Absolute Nucleated RBC Nucleated RBC % (auto) Smear Tech's Comments VBG pH VBG pCO2 VBG pO2 VBG HCO3 VBG O2 Saturation VBG Base Excess Sodium 133 L Potassium 4.4 Chloride 101 Carbon Dioxide 20 L Anion Gap 16 BUN 22 H Creatinine 1.11 1.24 Estim Creat Clear Calc 88.8 79.5 Estimated GFR > 60 > 60 POC Glucose 87 Random Glucose 100 Calcium 9.5 Total Bilirubin AST ALT Alkaline Phosphatase Ammonia Total Protein Albumin Influenza Type A (PCR) Influenza Type B (PCR) RSV RNA Qual (PCR) SARS-CoV-2 RNA (RT-PCR) 11/09/24 11/09/24 11/10/24 07:55 20:04 08:19 WBC RBC Hgb Hct MCV MCH MCHC RDW Plt Count MPV Immature Gran % (Auto) Neut % (Auto) Lymph % (Auto) [place] % (Auto) Eos % (Auto) Baso % (Auto) Lymph # (Auto) [place] # (Auto) Eos # (Auto) Baso # (Auto) Abs Immat Gran (auto) Absolute Neuts (auto) Absolute Nucleated RBC Nucleated RBC % (auto) Smear Tech's Comments VBG pH VBG pCO2 VBG pO2 VBG HCO3 VBG O2 Saturation VBG Base Excess Sodium Potassium Chloride Carbon Dioxide Anion Gap BUN Creatinine Estim Creat Clear Calc Estimated GFR POC Glucose 110 91 98 Random Glucose Calcium Total Bilirubin AST ALT Alkaline Phosphatase Ammonia Total Protein Albumin Influenza Type A (PCR) Influenza Type B (PCR) RSV RNA Qual (PCR) SARS-CoV-2 RNA (RT-PCR) 11/10/24 11:43 WBC RBC Hgb Hct MCV MCH MCHC RDW Plt Count MPV Immature Gran % (Auto) Neut % (Auto) Lymph % (Auto) [place] % (Auto) Eos % (Auto) Baso % (Auto) Lymph # (Auto) [place] # (Auto) Eos # (Auto) Baso # (Auto) Abs Immat Gran (auto) Absolute Neuts (auto) Absolute Nucleated RBC Nucleated RBC % (auto) Smear Tech's Comments VBG pH VBG pCO2 VBG pO2 VBG HCO3 VBG O2 Saturation VBG Base Excess Sodium 135 Potassium 4.4 Chloride 102 Carbon Dioxide 25 Anion Gap 12 BUN 27 H Creatinine 1.35 Estim Creat Clear Calc 73.9 Estimated GFR 56 POC Glucose Random Glucose 140 H Calcium 9.9 Total Bilirubin AST ALT Alkaline Phosphatase Ammonia Total Protein Albumin Influenza Type A (PCR) Influenza Type B (PCR) RSV RNA Qual (PCR) SARS-CoV-2 RNA (RT-PCR) Imaging Diagnostic Imaging Impressions Head CT 11/03/24 15:11 IMPRESSION: 1. No acute intracranial abnormalities. No fractures. 2. Chronic changes as discussed. Electronically signed by: Benoit Powell MD 11/03/2024 04:12 PM EST RP Chest X-Ray 11/03/24 15:42 IMPRESSION: 1. Subtle patchy opacities both lung bases, and in the right mid and upper lung. Multifocal/atypical pneumonia is suspected. 2. There is no effusion or pneumothorax. Electronically signed by: Benoit Powell MD 11/03/2024 04:06 PM EST RP DS: Summary Hospital Course Hospital Course: HPI: 49 yo male, hx of polysubstance use disorder, Mood disorder (MDD vs bipolar disorder), PTSD, Panic Disorder, who presents with SI with a plan to hang himself or OD on IV Fentanyl (transfer from [facility]). Pt reports no hx of attempts, however wanting to come in for help before he acted on these thoughts. Reports auditory perceptual alterations when he experiences high tension/stress. SI has been persistent for the past few months. Pt willing to meet, I am really sick of living . One week I am OK then I am not . Anxiety and depression are high . Reports he had been clean for 15 months, I do drugs just to do drugs . Wants a therapist and prescriber, wants to not hang out with the wrong people . States social anxiety is a big factor in sx mgt- cannot manage public situations and has panic sx. Reports by history Thorazine has been very helpful. Hospital course: On admission, patient was depressed and very anxious with some mood congruent AH of echoes. Passive SI thoughts were intermittent however no active SI and no plans or intentions at all and eventually all SI fully resolved. Review of history, patient was diagnosed with MDD with psychotic features as repairer typewriter could not discern any actual manic episodes (longest 1 only lasting a day) and patient agreed to lower Zyprexa to 7.5 mg. He was continued on Cymbalta 120 mg. During this admission Patient was started on Wellbutrin, BuSpar, Thorazine and prazosin, combined to treat both depression and ongoing anxiety (and nightmares). Patient was initially with psychomotor retardation and with limited ADL's. However, little by little patient's depression resolved and he returned to normal functioning; his anxiety also became significantly less and patient felt able to cope with daily situations that would normally otherwise cause panic. Patient also started broaching topic of trauma which he found helpful and wanted subsequent outpt therapy. Patient remained in good behavioral and impulse control throughout his time in the unit, appropriate with peers and staff, attending groups and open in 1 on 1 discussions. Patient wanted help with substance abuse and was eventually accepted to a dual diagnosis program. On day of discharge, pt all of the sudden reported he wanted to first go home and get cloths (though he had some on the unit) and then go to the program; the hospital provided ride did not allow for this (plan was to go straight to the program) and so patient said he'd go home and get his own ride to the program. Director [employer] Operations/SW strongly advised against this discussing risks of this plan, however patient remained politely insistent and confident he'd be able to get his own ride to program (also knowing this is where his medications were sent). Pt of course remains at risk for relapse and decompensation however this is a long-standing chronic issue, of which he is well aware.Patient is at baseline. He is not imminent risks for harm to self or others and remains organized in speech and behavior, in good behavioral/impulse control. Patient is appropriate to continue treatment in the community. medical issues: On admission, pt had left foot wound which was addressed and fully healed Pt found to be with pneumonia which resolved with abx Pt had bout of sleep walking Pt had a dizzy spell and dx with orthostatic hypotension (unremarkable work up otherwise including EEG); had bout of dehydration and got IV fluids. Pt had bout of oliguria which he says is intermittently chronic; resolved with flomax Pt c/o of Dysphagia (which he said was chrohic) with subsequent speech eval who recommended outpt barium swallow: Patient educated on pharyngeal strengthening exercises and reviewed swallowing strategies.?Pt planned to f/u. No changes made to dietary regimen other than to consider thin liquids.? Recommendation is for barium swallow as an outpatient within a month; not emergent Medications: Continued on Cymbalta 120mg Continued on Zyprexa but at lower dose of 7.5mg Started on Chlorpromazine 10mg TID (wanted to remain even though on zyprexa) Started on Continue BuSpar 10 mg t.i.d.; will titrate Started on Continue prazosin 2 mg qhs for nightmares Started on Wellbutrin XR 300mg for depression Started on flomax 0.4mg daily Re-Started on Gabapentin 300mg tid (was on before and helped w/ neuropathic pain and anxiety) Re-Started on metformin ER 1000mg BID (will consider whether to titrate to 1000mg bid his home dose) Re-Started on trulicity weekly (he missed last week) Re-Started on clonidine 0.1mg Time spent discussing smoking cessation with patient: 3 to 10 minutes Status at Discharge Functional status at discharge: independent ambulation Overall status at discharge: patient is back to baseline Time Spent with Patient Time attestation: Total time managing care of this patient today __45__ minutes. Time spent: Greater than 30 minutes Specific discharge activities: discussed with team; met with patient on several occasions; charting, scripts Discharge Plan Discharge Anticipated Discharge Date/Time: 11/10/24 14:00 Patient Disposition: Xfer Other Discharge Diagnosis: MDD, recurrent, severe with psychotic features, in full remission Referrals: Physician,Unknown J [Primary Care Provider] - 1 Week (pt being discharged to a program. will follow-up when discharged from program ) Discharge Medications: New nicotine 21 mg/24 hr Patch 24 Hour 21 mg transdermal DAILY PRN (Reason: nicotine cravings) 28 Days Qty: 28 1RF nicotine (polacrilex) 4 mg Lozenge 4 mg buccal Q2H PRN (Reason: Nicotine Cravings) 30 Days Qty: 108 1RF tamsulosin 0.4 mg Capsule 0.4 mg PO DAILY 30 Days Qty: 30 1RF prazosin 2 mg capsule 2 mg PO BEDTIME 30 Days Qty: 30 1RF valsartan 80 mg Tablet 80 mg PO DAILY 30 Days Qty: 30 1RF benztropine 0.5 mg Tablet 0.5 mg PO BID 30 Days Qty: 60 1RF bupropion HCl 300 mg Tablet Extended Release 24 Hr 300 mg PO DAILY 30 Days Qty: 30 1RF buspirone 10 mg Tablet 10 mg PO TID 30 Days Qty: 90 1RF chlorpromazine 10 mg Tablet 10 mg PO TID 30 Days Qty: 90 1RF gabapentin 300 mg Capsule 300 mg PO TID 30 Days Qty: 90 1RF hydroxyzine HCl 25 mg Tablet 25 mg PO Q6H PRN (Reason: mild anxiety) 30 Days Qty: 60 1RF sennosides-docusate sodium [Senna Plus] 8.6-50 mg Tablet 1 tab PO DAILY 30 Days Qty: 30 1RF famotidine 20 mg Tablet 20 mg PO DAILY PRN (Reason: breakthrough heart burn) 30 Days Qty: 30 1RF metformin 500 mg Tablet Extended Release 24 Hr 1,000 mg PO BID 30 Days Qty: 120 1RF lidocaine [Lidocaine Pain Relief] 4 % Adhesive Patch,Medicated 1 patch transdermal DAILY PRN (Reason: left sided sciatica) 30 Days Qty: 30 1RF Protocol: Apply to: Apply to: area of left sided sciatic pain Rx Instructions: apply to affected back area triamcinolone acetonide 0.1 % Cream 1 appl topical BID 30 Days Qty: 15 0RF Protocol: Apply to: Apply to: underarm rash Rx Instructions: apply to affected area for underarm rash dulaglutide 1.5 mg/0.5 mL pen injector 1.5 mg subcut QWEEK Qty: 2 1RF Continued sildenafil 100 mg tablet 1 tab PO DAILY PRN (Reason: Sexual Activity) methadone [Methadone Intensol] 10 mg/mL Concentrate 140 mg PO DAILY Biktarvy 50-200-25 mg tablet 1 tab PO DAILY 30 Days Qty: 30 1RF atorvastatin 80 mg tablet 80 mg PO DAILY 30 Days Qty: 30 1RF melatonin 3 mg tablet 3 mg PO BEDTIME 30 Days Qty: 30 1RF omeprazole 40 mg capsule,delayed release(DR/EC) 40 mg PO BID 30 Days Qty: 60 1RF olanzapine 7.5 mg tablet 7.5 mg PO BEDTIME 30 Days Qty: 30 1RF aspirin 81 mg tablet,delayed release (DR/EC) 81 mg PO DAILY 30 Days Qty: 30 1RF hydrochlorothiazide 25 mg tablet 25 mg PO DAILY 30 Days Qty: 30 1RF cholecalciferol (vitamin D3) [Vitamin D3] 25 mcg (1,000 unit) capsule 25 mcg PO DAILY 30 Days Qty: 30 1RF duloxetine 60 mg capsule,delayed release(DR/EC) 120 mg PO DAILY 30 Days Qty: 60 1RF Trelegy Ellipta 200-62.5-25 mcg blister with device 1 ea inhalation DAILY 28 Days Qty: 28 1RF Changed Trulicity 1.5 mg/0.5 mL pen injector See Rx Instructions .ROUTE .COMPLEX Qty: 2 0RF Rx Instructions: inject content of pen once a week clonidine HCl 0.1 mg tablet See Rx Instructions .ROUTE .COMPLEX 30 Days Qty: 90 1RF Rx Instructions: Take 1 tab at morning and 1 tab at bedtime; may also take 1 extra tab daily as needed for mild anxiety trazodone 50 mg tablet 50 mg PO BEDTIME PRN (Reason: insomnia) 30 Days Qty: 30 1RF Discontinued hydroxyzine pamoate 50 mg capsule 50 mg PO Q4H PRN (Reason: Anxiety) omeprazole 40 mg capsule,delayed release(DR/EC) 40 mg PO BID olanzapine 15 mg tablet 15 mg PO BEDTIME metformin 500 mg tablet extended release 24 hr See Rx Instructions .ROUTE .COMPLEX Rx Instructions: 500mg 1tab BID x1 week, then 2tabs BID olmesartan 20 mg tablet 20 mg PO DAILY sennosides [senna] 8.6 mg tablet 8.6 - 17.2 mg PO BEDTIME PRN (Reason: constipation) docusate sodium 100 mg capsule 100 mg PO BID PRN (Reason: constipation) Movantik 25 mg tablet 25 mg PO QAM Discharge Orders: Discharge Order (Routine); Ordered 11/10/24 Ordered By: Lauri Judd Diet: Regular diet Activity on Discharge: As tolerated Stand Alone Forms: Patient Portal Discharge page Print Language: Tamazight Other Ambulatory Orders: [place] Modified Barium Swallow (Routine) Timeframe: 4 Weeks Facility: [facility] - Location: Radiology Ordered By: Lauri Judd Care Plan Goals: Maintain mood and safe behaviors Take medications as prescribed Continue to pursue sobriety Practice coping skills Continue with outpatient providers and reach out to them as needed Health Concerns: Mood stability and behaviors Sobriety Dysphagia Intermittent urinary hesitancy History COPD Elevated cholesterol GERD Plan of Treatment: Follow up with your PCP, psychiatric provider and other outpatient providers regarding above concerns Take medications as prescribed Assessment: Risk assessment at time of discharge:? Patient was interviewed prior to discharge and found to be fully oriented and without any SI or HI. Patient has improved insight and judgment and wants to continue treatment. Patient is not in imminent risk of harm to self or others and has a safety plan that includes presenting to the closest ER or calling 911 if feeling unsafe.? Patient has been observed closely by nursing and unit staff throughout admission; patient has not engaged in any behaviors that suggest dangerousness to self or others and has demonstrated appropriate behaviors and impulse control Discharge Date/Time: 11/10/24 14:10
== END 2024-11-10 14:10 | disposition other institution (70) | DRG 885 ==
PROVIDERS: Student in an Organized Health Care Education/Training Program; Admitting Provider Clinical Nurse Specialist Psychiatric/Mental Health, Adult; Visit Provider Psychiatry & Neurology Psychiatry
DX: F33.3 Major depressive disorder, recurrent, severe with psychotic symptoms (principal); F11.20 Opioid dependence, uncomplicated; R45.851 Suicidal ideations; Z59.02 Unsheltered homelessness; F17.210 Nicotine dependence, cigarettes, uncomplicated; Z71.6 Tobacco abuse counseling; F19.90 Other psychoactive substance use, unspecified, uncomplicated; F43.10 Post-traumatic stress disorder, unspecified; J44.9 Chronic obstructive pulmonary disease, unspecified; I10 Essential (primary) hypertension; E11.9 Type 2 diabetes mellitus without complications; K21.9 Gastro-esophageal reflux disease without esophagitis; R21 Rash and other nonspecific skin eruption; L84 Corns and callosities; F14.10 Cocaine abuse, uncomplicated; Z21 Asymptomatic human immunodeficiency virus [HIV] infection status; Z20.822 Contact with and (suspected) exposure to COVID-19; Z91.148 Patient's other noncompliance with medication regimen for other reason; Z79.51 Long term (current) use of inhaled steroids; Z79.82 Long term (current) use of aspirin; Z79.84 Long term (current) use of oral hypoglycemic drugs; Z79.899 Other long term (current) drug therapy
CPT/HCPCS: 0241U; 36415; 70450; 71045; 80048; 80053; 80061; 82140; 82565; 82607; 82746; 82803; 82947; 83036; 83735; 84439; 84443; 85025; 92526; 92610; 93005; 95816; J7120

== ENCOUNTER 2024-10-20 16:20 | Outpatient (BNV) | payer OTHER, SELFPAY | END 2024-11-03 14:36 | PROVIDERS: Admitting Provider Clinical Nurse Specialist Psychiatric/Mental Health, Adult; Visit Provider Internal Medicine Cardiovascular Disease | DX: R41.0 Disorientation, unspecified (principal) | CPT/HCPCS: 93010 ==

== ENCOUNTER 2024-10-20 16:20 | Outpatient (BNV) | payer OTHER, SELFPAY | END 2024-10-21 16:53 | PROVIDERS: Admitting Provider Clinical Nurse Specialist Psychiatric/Mental Health, Adult; Visit Provider Internal Medicine Cardiovascular Disease | DX: R00.1 Bradycardia, unspecified (principal) | CPT/HCPCS: 93010 ==

== ENCOUNTER → 2024-10-20 16:20 | Outpatient (BNV) | payer OTHER, SELFPAY | PROVIDERS: Admitting Provider Clinical Nurse Specialist Psychiatric/Mental Health, Adult; Visit Provider Student in an Organized Health Care Education/Training Program | DX: Z02.2 Encounter for examination for admission to residential institution (principal) | CPT/HCPCS: 99429 ==

== ENCOUNTER → 2024-10-20 16:20 | Outpatient (BNV) | payer OTHER, SELFPAY | PROVIDERS: Admitting Provider Clinical Nurse Specialist Psychiatric/Mental Health, Adult; Visit Provider Clinical Nurse Specialist Psychiatric/Mental Health, Adult | DX: F33.3 Major depressive disorder, recurrent, severe with psychotic symptoms (principal); F14.10 Cocaine abuse, uncomplicated; F11.90 Opioid use, unspecified, uncomplicated; F43.11 Post-traumatic stress disorder, acute; F19.90 Other psychoactive substance use, unspecified, uncomplicated | CPT/HCPCS: 90792; 99231; 99232 ==